=== PATIENT | male | born 1965 | race Caucasian/White ===

== ENCOUNTER → 2018-07-19 15:36 | Outpatient (CLI) | payer OTHER, SELFPAY ==
[2018-05-30 16:00] VITALS: BMI 46.5
[2018-07-19 17:36] LABS: Erythrocyte Sedimentation Rate 37 mm/hr (0-20)
[2018-07-19 17:37] LABS: BUN 12 mg/dL (7-18); Creatinine, Serum 1.17 mg/dL (0.70-1.30); Glucose 129 mg/dL (74-106)
[2018-07-19 17:38] LABS: ALB/GLOB Ratio 0.9 RATIO (0.9-2.4); AST(SGOT) 21 U/L (15-37); Alanine Aminotransfer ALT/SGPT 28 U/L (16-61); Albumin, Serum 3.4 g/dL (3.2-5.0); Alkaline Phosphatase 80 U/L (45-117); Anion Gap 10 (5-15); BUN/Creat Ratio 10.3 RATIO (10-20); Calcium,Total 8.5 mg/dL (8.5-10.1); Chloride 108 mmol/L (98-107); EST Glomerular Filtration Rate 70 mL/min (>60); Est Glom Filt Rate - Afr Amer 84 mL/min (>60); Globulin 3.6 g/dL (2.2-4.2); Potassium 4.1 mmol/L (3.5-5.1); Sodium Level 143 mmol/L (136-145); Thyroid Stim Hormone (TSH) 2.43 uIU/mL (0.358-3.74)
[2018-07-19 17:39] LABS: Vitamin B12 1221 pg/mL (211-911)
== END ==
PROVIDERS: Family Provider Nurse Practitioner; PCP Nurse Practitioner; Referring Provider Psychiatry & Neurology Neurology; Visit Provider Psychiatry & Neurology Neurology
DX: R51 Headache (principal)
CPT/HCPCS: 36415; 80053; 82607; 84443; 85652; 86140

== ENCOUNTER → 2018-08-02 17:49 | Outpatient (CLI) | payer OTHER, SELFPAY ==
[2018-05-30 16:00] VITALS: BMI 46.5
--- NOTE | 2018-08-02 18:15 | MRI_ITS ---
HISTORY: H/A's and dizziness TECHNIQUE: Multiplanar and multisequence MR images of the brain were obtained with and without IV gadolinium. IV Contrast dosage and agent: 13 cc Gadavist COMPARISON: None FINDINGS: # of images incl. paperwork: 351 PARANASAL SINUSES AND MASTOID AIR CELLS: Small polyp left maxillary sinus. Otherwise clear. CALVARIUM: Unremarkable. INTRACRANIAL HEMORRHAGE: No evidence of intracranial hemorrhage. BRAIN PARENCHYMA: No acute infarct. Cerebrum, cerebellum and brainstem are unremarkable. Normal sella turcica, pituitary gland, infundibular stalk, optic chiasm and hypothalamus. The internal auditory canals are patent. No mass effect or midline shift. Scattered mild chronic FLAIR/T2 hyperintensities within the cerebral white matter compatible with mild microvascular changes. CONTRAST: No abnormal enhancement. CSF SPACES: Appropriate for age. There is no hydrocephalus. Patent basal cisterns. VASCULAR SYSTEM: Normal flow voids in the major intracranial circulation. ORBITS: Both globes, extraocular muscles, optic nerves and retrobulbar fat appear unremarkable. MRI/Brain W/WO Contrast IMPRESSION: Mild chronic microvascular changes in the white matter. No acute intracranial process. at 0502 Reported and signed by: Pradip Gross MD Electronically Signed: Pradip Gross, at 5:01 EST Tel , Service support ,
== END ==
PROVIDERS: Family Provider Nurse Practitioner; PCP Nurse Practitioner; Referring Provider Psychiatry & Neurology Neurology; Visit Provider Psychiatry & Neurology Neurology
DX: R51 Headache (principal)
CPT/HCPCS: 70553; A9585

== ENCOUNTER → 2018-08-09 22:43 | Outpatient (CLI) | payer OTHER, SELFPAY ==
[2018-08-09 17:30] VITALS: BMI 46.5
[2018-08-09 23:09] LABS: Albumin, Serum 3.5 g/dL (3.2-5.0); BUN 15 mg/dL (7-18); BUN/Creat Ratio 9.9 RATIO (10-20); Creatinine, Serum 1.51 mg/dL (0.70-1.30); EST Glomerular Filtration Rate 52 mL/min (>60); Est Glom Filt Rate - Afr Amer 63 mL/min (>60); Glucose 126 mg/dL (74-106)
[2018-08-09 23:10] LABS: AST(SGOT) 20 U/L (15-37); Alanine Aminotransfer ALT/SGPT 27 U/L (16-61); Alkaline Phosphatase 95 U/L (45-117); Anion Gap 8 (5-15); Calcium,Total 8.7 mg/dL (8.5-10.1); Chloride 108 mmol/L (98-107); Cholesterol 163 mg/dL (200); Globulin 3.5 g/dL (2.2-4.2); High Density Lipoprotein 40 mg/dL; Potassium 4.1 mmol/L (3.5-5.1); Sodium Level 144 mmol/L (136-145); Triglycerides 293 mg/dL; Very Low Density Lipoprotein 59 mg/dL (5-40)
[2018-08-09 23:19] LABS: Absolute Lymphocyte Count 3.12 X10^3/ul (0.83-4.51); Absolute Neutrophil Count 7.8 X10^3/uL (2.0-7.7); Basophil# 0.04 X10^3/uL; Basophil% 0.3 % (0-1); Eosinophil# 0.28 X10^3/uL; Eosinophils% 2.2 % (0-5); Hematocrit 44.9 % (40-54); Hemoglobin 14.5 g/dl (13.0-16.5); Lymphocyte # 3.12 X10^3/ul (4.0); Lymphocyte % 24.7 % (19-41); Mean Corp Hgb Conc 32.3 g/gl (32-36); Mean Corpuscular Hgb 30.5 pg (27.0-32.0); Mean Corpuscular Volume 94.5 fL (80-94); Mean Platelet Vol. 11.8 fl (6.2-12.0); Monocyte# 1.36 X10^3/uL; Monocyte% 10.8 % (0-10); Neutrophil % 61.6 % (47-70); Platelet Count 271 K/mm3 (150-450); RBC Distribution Width CV 13.9 % (11.6-14.6); RBC Distribution Width SD 46.5 fl (35.1-43.9); Red Blood Count 4.75 M/mm3 (4.6-6.2); White Blood Count 12.7 K/mm3 (4.4-11.0)
[2018-08-09 23:20] LABS: POSITIVE COUNT NO; POSITIVE DIFFERENTIAL NO; POSITIVE MORPHOLOGY NO
== END ==
PROVIDERS: Family Provider Nurse Practitioner; PCP Nurse Practitioner; Referring Provider Nurse Practitioner; Visit Provider Nurse Practitioner
DX: I10 Essential (primary) hypertension (principal)
CPT/HCPCS: 80053; 80061; 85025

== ENCOUNTER → 2019-06-27 | Outpatient (CLI) | payer OTHER, SELFPAY ==
[2019-06-27 18:15] VITALS: BMI 49.1
== END | disposition home or self-care (01) ==
PROVIDERS: PCP Nurse Practitioner; Referring Provider Nurse Practitioner; Visit Provider Nurse Practitioner
DX: R19.8 Other specified symptoms and signs involving the digestive system and abdomen (principal)
CPT/HCPCS: 87070; 87075; 87077; 87186; 87205

== ENCOUNTER → 2020-03-16 | Outpatient (CLI) | payer OTHER, SELFPAY ==
[2020-03-16 15:52] VITALS: BMI 44.9
[2020-03-16 21:28] LABS: Absolute Lymphocyte Count 2.16 X10^3/uL (0.83-4.51); Basophil# 0.09 X10^3/uL; Basophil% 0.8 % (0-1); Eosinophil# 0.25 X10^3/uL; Eosinophils% 2.2 % (0-5); Hematocrit 49.3 % (40-54); Hemoglobin 15.7 g/dL (13.0-16.5); Lymphocyte # 2.16 X10^3/ul (4.0); Lymphocyte % 18.9 % (19-41); Mean Corp Hgb Conc 31.8 g/dL (32-36); Mean Corpuscular Hgb 29.8 pg (27.0-32.0); Mean Corpuscular Volume 93.7 fL (80-94); Mean Platelet Vol. 11.7 fl (6.2-12.0); Monocyte# 0.93 X10^3/uL; Monocyte% 8.1 % (0-10); NRBC Flagged by Analyzer 0 % (0-5); Neutrophil # 7.99 X10^3/uL (2.7-7.7); Neutrophil % 69.9 % (47-70); Platelet Count 320 K/mm3 (150-450); RBC Distribution Width SD 48.6 fl (35.1-43.9); Red Blood Count 5.26 M/mm3 (4.6-6.2); White Blood Count 11.4 K/mm3 (4.4-11.0)
[2020-03-16 22:08] LABS: ALB/GLOB Ratio 0.8 RATIO (0.9-2.4); AST(SGOT) 28 U/L (15-37); Alanine Aminotransfer ALT/SGPT 40 U/L (16-61); Albumin, Serum 3.4 g/dL (3.2-5.0); Alkaline Phosphatase 121 U/L (45-117); Anion Gap 7 (5-15); BUN 13 mg/dL (7-18); BUN/Creat Ratio 10.5 RATIO (10-20); Calcium,Total 9.3 mg/dL (8.5-10.1); Chloride 103 mmol/L (98-107); Cholesterol 186 mg/dL (200); Creatinine, Serum 1.24 mg/dL (0.70-1.30); EST Glomerular Filtration Rate 65 mL/min (>60); Est Glom Filt Rate - Afr Amer 78 mL/min (>60); Globulin 4.3 g/dL (2.2-4.2); Glucose 189 mg/dL (74-106); High Density Lipoprotein 43 mg/dL; PSA,Total - Annual Screen 0.25 ng/mL (0.00-4.00); Potassium 3.7 mmol/L (3.5-5.1); Protein, Total 7.7 g/dL (6.4-8.2); Sodium Level 140 mmol/L (136-145); Triglycerides 249 mg/dL; Very Low Density Lipoprotein 50 mg/dL (5-40)
== END | disposition home or self-care (01) ==
LOC: OLS.AHF 21:20 → LABSPEC 03-17 06:26
PROVIDERS: Visit Provider Nurse Practitioner
DX: I10 Essential (primary) hypertension (principal); E11.65 Type 2 diabetes mellitus with hyperglycemia; R35.0 Frequency of micturition
CPT/HCPCS: 80053; 80061; 84153; 85025; G0103

== ENCOUNTER → 2020-08-18 | Outpatient (CLI) | payer BC, SELFPAY ==
[2020-08-18 14:54] VITALS: BMI 44.6
[2020-08-18 22:42] LABS: Absolute Lymphocyte Count 0.67 X10^3/uL (0.83-4.51); Absolute Neutrophil Count 5.6 X10^3/uL (2.0-7.7); Basophil# 0.02 X10^3/uL; Basophil% 0.3 % (0-1); Eosinophil# 0.03 X10^3/uL; Eosinophils% 0.5 % (0-5); Hematocrit 48.1 % (40-54); Hemoglobin 15.3 g/dL (13.0-16.5); Lymphocyte # 0.67 X10^3/ul (4.0); Lymphocyte % 10.3 % (19-41); Mean Corp Hgb Conc 31.8 g/dL (32-36); Mean Corpuscular Hgb 30.2 pg (27.0-32.0); Mean Corpuscular Volume 94.9 fL (80-94); Mean Platelet Vol. 12.7 fl (6.2-12.0); Monocyte# 0.16 X10^3/uL; Monocyte% 2.5 % (0-10); NRBC Flagged by Analyzer 0 % (0-5); Neutrophil % 85.6 % (47-70); Platelet Count 303 K/mm3 (150-450); RBC Distribution Width CV 13.4 % (11.6-14.6); RBC Distribution Width SD 46.7 fl (35.1-43.9); Red Blood Count 5.07 M/mm3 (4.6-6.2); White Blood Count 6.5 K/mm3 (4.4-11.0)
[2020-08-18 22:54] LABS: ALB/GLOB Ratio 0.8 RATIO (0.9-2.4); AST(SGOT) 30 U/L (15-37); Alanine Aminotransfer ALT/SGPT 55 U/L (16-61); Albumin, Serum 2.7 g/dL (3.2-5.0); Alkaline Phosphatase 112 U/L (45-117); Anion Gap 6 (5-15); BUN 22 mg/dL (7-18); BUN/Creat Ratio 17.1 RATIO (10-20); CRP, High Sensitivity Cardiac 1.74 mg/L; Calcium,Total 8.7 mg/dL (8.5-10.1); Chloride 100 mmol/L (98-107); Creatinine, Serum 1.29 mg/dL (0.70-1.30); EST Glomerular Filtration Rate 62 mL/min (>60); Est Glom Filt Rate - Afr Amer 75 mL/min (>60); Globulin 3.5 g/dL (2.2-4.2); Glucose 534 mg/dL (74-106); Potassium 4.8 mmol/L (3.5-5.1); Protein, Total 6.2 g/dL (6.4-8.2); Sodium Level 136 mmol/L (136-145)
== END | disposition home or self-care (01) ==
PROVIDERS: Visit Provider Nurse Practitioner
DX: U07.1 COVID-19 (principal); J12.82 Pneumonia due to coronavirus disease 2019; R06.02 Shortness of breath; T50.B95A Adverse effect of other viral vaccines, initial encounter
CPT/HCPCS: 80053; 85025; 86141

== ENCOUNTER → 2021-11-07 | Outpatient (CLI) | payer OTHER, SELFPAY ==
[2021-11-07 22:54] LABS: Absolute Lymphocyte Count 2.07 X10^3/uL (0.83-4.51); Basophil# 0.06 X10^3/uL; Basophil% 0.7 % (0-1); Eosinophil# 0.16 X10^3/uL; Eosinophils% 1.8 % (0-5); Hematocrit 48.9 % (40-54); Hemoglobin 16.1 g/dL (13.0-16.5); Lymphocyte # 2.07 X10^3/ul (0.83-4.51); Lymphocyte % 22.8 % (19-41); Mean Corp Hgb Conc 32.9 g/dL (32-36); Mean Corpuscular Hgb 31.4 pg (27.0-32.0); Mean Corpuscular Volume 95.3 fL (80-94); Mean Platelet Vol. 12.3 fl (6.2-12.0); Monocyte# 0.78 X10^3/uL; Monocyte% 8.6 % (0-10); NRBC Flagged by Analyzer 0 % (0-5); Neutrophil # 5.97 X10^3/uL (2.7-7.7); Neutrophil % 65.8 % (47-70); Platelet Count 256 K/mm3 (150-450); RBC Distribution Width SD 45.7 fl (35.1-43.9); Red Blood Count 5.13 M/mm3 (4.6-6.2); White Blood Count 9.1 K/mm3 (4.4-11.0)
[2021-11-07 23:11] LABS: PSA,Total- Diagnostic 0.46 ng/mL (0.0-4.0)
[2021-11-08 09:54] LABS: Vitamin B12 1580 pg/mL (211-911)
== END | disposition home or self-care (01) ==
PROVIDERS: PCP Nurse Practitioner; Referring Provider Nurse Practitioner; Visit Provider Nurse Practitioner
DX: R53.83 Other fatigue (principal); R79.89 Other specified abnormal findings of blood chemistry
CPT/HCPCS: 82607; 84153; 84403; 85025

== ENCOUNTER → 2021-12-24 | Outpatient (CLI) | payer OTHER, SELFPAY ==
[2021-12-24 00:25] LABS: Absolute Lymphocyte Count 2.85 X10^3/uL (0.83-4.51); Absolute Neutrophil Count 6.6 X10^3/uL (2.0-7.7); Basophil# 0.08 X10^3/uL; Basophil% 0.7 % (0-1); Eosinophil# 0.26 X10^3/uL; Eosinophils% 2.4 % (0-5); Hemoglobin 15.6 g/dL (13.0-16.5); Lymphocyte # 2.85 X10^3/ul (0.83-4.51); Lymphocyte % 26.4 % (19-41); Mean Corp Hgb Conc 33.9 g/dL (32-36); Mean Corpuscular Volume 94.5 fL (80-94); Mean Platelet Vol. 12.3 fl (6.2-12.0); Monocyte# 1.02 X10^3/uL; Monocyte% 9.5 % (0-10); NRBC Flagged by Analyzer 0 % (0-5); Neutrophil # 6.56 X10^3/uL (2.7-7.7); Neutrophil % 60.8 % (47-70); Platelet Count 261 K/mm3 (150-450); RBC Distribution Width SD 45.1 fl (35.1-43.9); Red Blood Count 4.87 M/mm3 (4.6-6.2); White Blood Count 10.8 K/mm3 (4.4-11.0)
[2021-12-24 00:52] LABS: AST(SGOT) 20 U/L (15-37); Alanine Aminotransfer ALT/SGPT 28 U/L (16-61); Albumin, Serum 3.5 g/dL (3.2-5.0); Alkaline Phosphatase 124 U/L (45-117); Anion Gap 5 (5-15); BUN 15 mg/dL (7-18); BUN/Creat Ratio 10.6 RATIO (10-20); Calcium,Total 9.2 mg/dL (8.5-10.1); Chloride 103 mmol/L (98-107); Cholesterol 211 mg/dL (200); Creatinine, Serum 1.41 mg/dL (0.70-1.30); EST Glomerular Filtration Rate 55 mL/min (>60); Est Glom Filt Rate - Afr Amer 67 mL/min (>60); Globulin 3.5 g/dL (2.2-4.2); Glucose 240 mg/dL (74-106); High Density Lipoprotein 31 mg/dL; PSA,Total - Annual Screen 0.27 ng/mL (0.00-4.00); Potassium 3.9 mmol/L (3.5-5.1); Sodium Level 137 mmol/L (136-145); Triglycerides 575 mg/dL
[2021-12-24 01:44] LABS: Hemoglobin A1c 9.4 % (3.8-5.6)
== END | disposition home or self-care (01) ==
PROVIDERS: PCP Nurse Practitioner; Visit Provider Nurse Practitioner
DX: F32.9 Major depressive disorder, single episode, unspecified (principal); E11.65 Type 2 diabetes mellitus with hyperglycemia; R35.0 Frequency of micturition; E78.5 Hyperlipidemia, unspecified
CPT/HCPCS: 80053; 80061; 83036; 84153; 85025; G0103

== ENCOUNTER → 2022-09-06 | Outpatient (CLI) | payer OTHER, SELFPAY ==
[2022-09-06 22:30] LABS: Absolute Lymphocyte Count 2.24 X10^3/uL (0.83-4.51); Absolute Neutrophil Count 6.5 X10^3/uL (2.0-7.7); Basophil# 0.06 X10^3/uL; Basophil% 0.6 % (0-1); Eosinophil# 0.17 X10^3/uL; Eosinophils% 1.7 % (0-5); Hematocrit 42.5 % (40-54); Hemoglobin 14.3 g/dL (13.0-16.5); Lymphocyte # 2.24 X10^3/ul (0.83-4.51); Lymphocyte % 22.5 % (19-41); Mean Corp Hgb Conc 33.6 g/dL (32-36); Mean Corpuscular Hgb 31.7 pg (27.0-32.0); Mean Corpuscular Volume 94.2 fL (80-94); Mean Platelet Vol. 12.6 fl (6.2-12.0); Monocyte# 0.97 X10^3/uL; Monocyte% 9.7 % (0-10); NRBC Flagged by Analyzer 0 % (0-5); Neutrophil # 6.49 X10^3/uL (2.7-7.7); Neutrophil % 65.3 % (47-70); Platelet Count 280 K/mm3 (150-450); RBC Distribution Width CV 13.2 % (11.6-14.6); RBC Distribution Width SD 45.9 fl (35.1-43.9); Red Blood Count 4.51 M/mm3 (4.6-6.2)
[2022-09-06 22:47] LABS: ALB/GLOB Ratio 0.9 RATIO (0.9-2.4); AST(SGOT) 22 U/L (15-37); Alanine Aminotransfer ALT/SGPT 27 U/L (16-61); Albumin, Serum 3.4 g/dL (3.2-5.0); Alkaline Phosphatase 97 U/L (45-117); Anion Gap 6 (5-15); BUN 17 mg/dL (7-18); BUN/Creat Ratio 12.1 RATIO (10-20); Chloride 102 mmol/L (98-107); EST Glomerular Filtration Rate 56 mL/min (>60); Est Glom Filt Rate - Afr Amer 67 mL/min (>60); Globulin 3.7 g/dL (2.2-4.2); Glucose 182 mg/dL (74-106); Potassium 3.8 mmol/L (3.5-5.1); Protein, Total 7.1 g/dL (6.4-8.2); Sodium Level 136 mmol/L (136-145)
[2022-09-06 23:02] LABS: D-Dimer Quantitative (DVT/PE) < 0.27 FEU/ug/m (0.27-0.49)
== END | disposition home or self-care (01) ==
PROVIDERS: PCP Nurse Practitioner; Visit Provider Nurse Practitioner
DX: R06.00 Dyspnea, unspecified (principal); R53.83 Other fatigue; U09.9 Post COVID-19 condition, unspecified
CPT/HCPCS: 80053; 85025; 85379

== ENCOUNTER 2023-07-27 21:58 | Outpatient (CLI) | payer MEDICARE, SELFPAY ==
[2023-07-27 22:23] LABS: Absolute Lymphocyte Count 2.75 X10^3/uL (0.83-4.51); Absolute Neutrophil Count 5.3 X10^3/uL (2.0-7.7); Basophil# 0.09 X10^3/uL; Eosinophil# 0.24 X10^3/uL; Eosinophils% 2.6 % (0-5); Hematocrit 43.8 % (40-54); Hemoglobin 14.1 g/dL (13.0-16.5); Lymphocyte # 2.75 X10^3/ul (0.83-4.51); Lymphocyte % 29.5 % (19-41); Mean Corp Hgb Conc 32.2 g/dL (32-36); Mean Corpuscular Hgb 30.7 pg (27.0-32.0); Mean Corpuscular Volume 95.4 fL (80-94); Mean Platelet Vol. 12.5 fl (6.2-12.0); Monocyte# 0.97 X10^3/uL; Monocyte% 10.4 % (0-10); NRBC Flagged by Analyzer 0 % (0-5); Neutrophil # 5.26 X10^3/uL (2.7-7.7); Neutrophil % 56.3 % (47-70); Platelet Count 266 K/mm3 (150-450); RBC Distribution Width CV 13.2 % (11.6-14.6); Red Blood Count 4.59 M/mm3 (4.6-6.2); White Blood Count 9.3 K/mm3 (4.4-11.0)
[2023-07-27 22:41] LABS: ALB/GLOB Ratio 0.9 RATIO (0.9-2.4); AST(SGOT) 18 U/L (15-37); Alanine Aminotransfer ALT/SGPT 25 U/L (16-61); Albumin, Serum 3.3 g/dL (3.2-5.0); Alkaline Phosphatase 93 U/L (45-117); Anion Gap 4 (5-15); BUN 17 mg/dL (7-18); BUN/Creat Ratio 11.9 RATIO (10-20); Calcium,Total 8.8 mg/dL (8.5-10.1); Chloride 105 mmol/L (98-107); Cholesterol 192 mg/dL (200); Creatinine, Serum 1.43 mg/dL (0.70-1.30); EST Glomerular Filtration Rate 54 mL/min (>60); Est Glom Filt Rate - Afr Amer 66 mL/min (>60); Globulin 3.6 g/dL (2.2-4.2); Glucose 189 mg/dL (74-106); High Density Lipoprotein 38 mg/dL; PSA,Total - Annual Screen 0.35 ng/mL (0.00-4.00); Potassium 3.9 mmol/L (3.5-5.1); Protein, Total 6.9 g/dL (6.4-8.2); Sodium Level 140 mmol/L (136-145); Triglycerides 275 mg/dL; Very Low Density Lipoprotein 55 mg/dL (5-40)
[2023-07-27 22:53] LABS: Hemoglobin A1c 7.8 % (3.8-5.6)
== END 2023-07-27 23:59 | disposition home or self-care (01) ==
PROVIDERS: PCP Nurse Practitioner; Visit Provider Nurse Practitioner
DX: Z12.5 Encounter for screening for malignant neoplasm of prostate (principal); E11.65 Type 2 diabetes mellitus with hyperglycemia; H66.92 Otitis media, unspecified, left ear; E78.5 Hyperlipidemia, unspecified; F32.9 Major depressive disorder, single episode, unspecified; G47.00 Insomnia, unspecified; G43.909 Migraine, unspecified, not intractable, without status migrainosus; I10 Essential (primary) hypertension; R35.0 Frequency of micturition
CPT/HCPCS: 80053; 80061; 83036; 84153; 85025; G0103

== ENCOUNTER → 2024-03-06 | Outpatient (CLI) | payer MEDICARE, SELFPAY ==
[2024-03-06 22:10] LABS: Absolute Lymphocyte Count 2.19 X10^3/uL (0.83-4.51); Absolute Neutrophil Count 6.1 X10^3/uL (2.0-7.7); Basophil# 0.06 X10^3/uL; Basophil% 0.6 % (0-1); Eosinophil# 0.27 X10^3/uL; Eosinophils% 2.8 % (0-5); Hematocrit 40.9 % (40-54); Hemoglobin 13.2 g/dL (13.0-16.5); Lymphocyte # 2.19 X10^3/ul (0.83-4.51); Lymphocyte % 22.8 % (19-41); Mean Corp Hgb Conc 32.3 g/dL (32-36); Mean Corpuscular Hgb 30.2 pg (27.0-32.0); Mean Corpuscular Volume 93.6 fL (80-94); Mean Platelet Vol. 12.2 fl (6.2-12.0); Monocyte# 0.97 X10^3/uL; Monocyte% 10.1 % (0-10); NRBC Flagged by Analyzer 0 % (0-5); Neutrophil # 6.09 X10^3/uL (2.7-7.7); Neutrophil % 63.4 % (47-70); Platelet Count 233 K/mm3 (150-450); RBC Distribution Width CV 13.5 % (11.6-14.6); RBC Distribution Width SD 46.1 fl (35.1-43.9); Red Blood Count 4.37 M/mm3 (4.6-6.2); White Blood Count 9.6 K/mm3 (4.4-11.0)
[2024-03-06 22:33] LABS: ALB/GLOB Ratio 0.9 RATIO (0.9-2.4); AST(SGOT) 17 U/L (15-37); Alanine Aminotransfer ALT/SGPT 16 U/L (16-61); Albumin, Serum 3.3 g/dL (3.2-5.0); Alkaline Phosphatase 101 U/L (45-117); Anion Gap 5 (5-15); BUN 14 mg/dL (7-18); BUN/Creat Ratio 12.8 RATIO (10-20); Calcium,Total 9.1 mg/dL (8.5-10.1); Chloride 105 mmol/L (98-107); Creatinine, Serum 1.09 mg/dL (0.70-1.30); EST Glomerular Filtration Rate 74 mL/min (>60); Est Glom Filt Rate - Afr Amer 89 mL/min (>60); Globulin 3.7 g/dL (2.2-4.2); Glucose 170 mg/dL (74-106); Potassium 3.9 mmol/L (3.5-5.1); Sodium Level 138 mmol/L (136-145)
[2024-03-06 22:37] LABS: Hemoglobin A1c 7.6 % (3.8-5.6)
== END | disposition home or self-care (01) ==
LOC: LABSPEC 21:53
PROVIDERS: PCP Nurse Practitioner; Visit Provider Nurse Practitioner
DX: R42 Dizziness and giddiness (principal); E11.65 Type 2 diabetes mellitus with hyperglycemia; G43.819 Other migraine, intractable, without status migrainosus; I10 Essential (primary) hypertension
CPT/HCPCS: 80053; 83036; 84443; 85025

== ENCOUNTER → 2024-08-22 | Outpatient (CLI) | payer BC, SELFPAY ==
[2024-08-22 22:07] LABS: Absolute Neutrophil Count 8.7 X10^3/uL (2.0-7.7); Basophil# 0.06 X10^3/uL; Basophil% 0.5 % (0-1); Eosinophil# 0.13 X10^3/uL; Eosinophils% 1.1 % (0-5); Hematocrit 42.4 % (40-54); Hemoglobin 13.9 g/dL (13.0-16.5); Lymphocyte % 15.3 % (19-41); Mean Corp Hgb Conc 32.8 g/dL (32-36); Mean Corpuscular Volume 94.4 fL (80-94); Mean Platelet Vol. 12.3 fl (6.2-12.0); Monocyte# 1.03 X10^3/uL; Monocyte% 8.7 % (0-10); NRBC Flagged by Analyzer 0 % (0-5); Neutrophil # 8.73 X10^3/uL (2.7-7.7); Neutrophil % 74.1 % (47-70); Platelet Count 260 K/mm3 (150-450); RBC Distribution Width CV 14.1 % (11.6-14.6); RBC Distribution Width SD 48.7 fl (35.1-43.9); Red Blood Count 4.49 M/mm3 (4.6-6.2); White Blood Count 11.8 K/mm3 (4.4-11.0)
[2024-08-22 22:51] LABS: Hemoglobin A1c 8.4 % (<=5.6)
[2024-08-22 22:58] LABS: ALB/GLOB Ratio 1.2 RATIO (0.9-2.4); AST(SGOT) 24 U/L (<=37); Alanine Aminotransfer ALT/SGPT 18 U/L (<=46); Albumin, Serum 4.1 g/dL (3.5-5.0); Alkaline Phosphatase 114 U/L (40-129); Anion Gap 13 (5-15); BUN 15 mg/dL (4-19); BUN/Creat Ratio 10.2 RATIO (10-20); Calcium,Total 9.4 mg/dL (7.6-11.0); Carbon Dioxide 25.1 mmol/L (21.0-32.0); Chloride 101 mmol/L (98-108); Creatinine, Serum 1.49 mg/dL (0.70-1.20); EST Glomerular Filtration Rate 54 (>60); Globulin 3.3 g/dL (2.2-4.2); Glucose 213 mg/dL (70-99); Potassium 4.4 mmol/L (3.3-5.1); Protein, Total 7.4 g/dL (5.9-8.4); Sodium Level 138 mmol/L (133-145); Total Bilirubin 0.28 mg/dL (0.00-1.30)
== END | disposition home or self-care (01) ==
PROVIDERS: PCP Nurse Practitioner; Referring Provider Nurse Practitioner; Visit Provider Nurse Practitioner
DX: E11.65 Type 2 diabetes mellitus with hyperglycemia (principal); E78.5 Hyperlipidemia, unspecified; R63.4 Abnormal weight loss
CPT/HCPCS: 80053; 83036; 84443; 85025

== ENCOUNTER → 2024-10-24 | Outpatient (CLI) | payer BC, SELFPAY ==
[2024-10-24 01:41] LABS: Absolute Lymphocyte Count 2.12 X10^3/uL (0.83-4.51); Absolute Neutrophil Count 5.9 X10^3/uL (2.0-7.7); Basophil# 0.07 X10^3/uL; Basophil% 0.7 % (0-1); Eosinophil# 0.22 X10^3/uL; Eosinophils% 2.3 % (0-5); Hemoglobin 14.2 g/dL (13.0-16.5); Lymphocyte # 2.12 X10^3/ul (0.83-4.51); Lymphocyte % 22.6 % (19-41); Mean Corp Hgb Conc 32.3 g/dL (32-36); Mean Corpuscular Hgb 30.7 pg (27.0-32.0); Mean Corpuscular Volume 95.2 fL (80-94); Mean Platelet Vol. 12.7 fl (6.2-12.0); Monocyte# 1.03 X10^3/uL; NRBC Flagged by Analyzer 0 % (0-5); Neutrophil # 5.92 X10^3/uL (2.7-7.7); Neutrophil % 63.1 % (47-70); Platelet Count 278 K/mm3 (150-450); RBC Distribution Width CV 14.2 % (11.6-14.6); RBC Distribution Width SD 49.6 fl (35.1-43.9); Red Blood Count 4.62 M/mm3 (4.6-6.2); White Blood Count 9.4 K/mm3 (4.4-11.0)
== END | disposition home or self-care (01) ==
PROVIDERS: PCP Nurse Practitioner; Referring Provider Nurse Practitioner; Visit Provider Nurse Practitioner
DX: E03.9 Hypothyroidism, unspecified (principal); D72.829 Elevated white blood cell count, unspecified
CPT/HCPCS: 84443; 85025

== ENCOUNTER 2025-03-11 07:42 | Day surgery (SDC) | payer BC, SELFPAY ==
--- NOTE | 2025-03-09 13:15 | PAT.ANE_ITS ---
Pre-Assessment Diagnosis/Proposed Procedure Planned Operative Procedure(s): (R) Cysto,Ureteroscopy,Retro,Laser,Stent Anesthesia History Anesthesia History - evp general counsel: Anesthesia History - evp general counsel Hx Hospitalization Yes: 02/2025 CHF 03/06/25 14:04 Any Problems With Anesthesia No 03/06/25 14:04 Cholinesterase deficiency No 03/06/25 14:04 You/Your Family Experience No 03/06/25 14:04 fever (hyperthermia) with Relationship Recent Exposure to Contagious Disease Does patient have nerve No 03/06/25 14:04 stimulator Patient instructed to have device shut off --Does patient have Pacemaker or ICD? When Was Last Pacemaker Check QUESTION #4 FULL TEXT: You/Your Family Experience fever (hyperthermia) with Anesthesia Last Oral Intake Last Oral intake: Last Oral Intake NPO since Meds taken in AM with sips of water? Meds patient instructed to take am of surgery PONV PONV - evp general counsel: PONV - evp general counsel Female No 03/06/25 14:04 HX of Motion Sickness No 03/06/25 14:04 HX of N/V After Surgery No 03/06/25 14:04 Non-Smoker Yes 03/06/25 14:04 Duration of Surgery greater Yes 03/06/25 14:04 than 60 minutes Number of Risk Factors 2 03/06/25 14:04 PONV Score Moderate Risk 03/06/25 14:04 Height & Weight Height & Weight: Anesthesia: Height & Weight Height 6 ft 11/27/24 16:03 Respiratory Assessment Respiratory Assessment - evp general counsel: Respiratory Tract Infection Hx - evp general counsel Hx Respiratory Tract Infection No 03/06/25 14:04 STOP Sleep Apnea STOP Sleep Apnea - evp general counsel: STOP Sleep Apnea - evp general counsel Hx Hypertension Yes: PER PT, CONTROLLED ON 03/06/25 14:04 MEDS Hx Sleep Apnea Yes 03/06/25 14:04 CPAP No 03/06/25 14:04 BIPAP No 03/06/25 14:04 Do you snore loudly (louder than talking or can be heard Do you often feel tired/ fatigued/ sleepy during daytime? Has anyone observed you stop breathing during sleep? STOP Results Positive 03/06/25 14:04 QUESTION #5 FULL TEXT : Do you snore loudly (louder than talking or can be heard through closed doors)? Tobacco Use History Tobacco Use History - evp general counsel: Tobacco Use History - evp general counsel Tobacco Use Smoking Status Never smoker 03/06/25 14:04 Hx Tobacco Use No 03/06/25 14:04 Years Smoking Packs Smoked per Day Smoking Cessation Date was within the last 15 years Hx Smoking Cessation Date Hx Smoking Cessation Counseling Hematologic Medial History Hematologic Hx - evp general counsel: Hematologic Medical Hx - rn clinical documentation Hx of Blood Transfusion No 03/06/25 14:04 Hx of Transfusion in last 3 No 03/06/25 14:04 Months Date of Last Transfusion (if within last 3 months) Ever experience any problems No 03/06/25 14:04 with transfusion(s)? Specify any problems Hx of Preganancy in last 3 N/A 03/06/25 14:04 Months Nurse Filling Out Transfusion MGRIFFITH 03/06/25 14:04 & Questions: Date: 03/06/25 03/06/25 14:04 Time: 14:07 03/06/25 14:04 Patient unable to answer at this time (ie. confused, unrespo /Reproduction History /Reproductive History - evp general counsel: /Reproductive Hx- evp general counsel Hx Now No 03/06/25 14:04 Gestational Age (in weeks): EDC: Hx Hx Para Hx Section SAB PFSH Medical History (Updated 03/06/25 @ 14:30 by Paty Sanchez) Wears glasses Vertigo History of MRSA infection Cancer Neuropathy Rheumatoid arthritis Arthritis High cholesterol Excessive bleeding Dietary restriction History of diverticulitis Sleep apnea Non-smoker History of echocardiogram History of stress test Hypertension Cardiology follow-up encounter History of atrial fibrillation History of CHF (congestive heart failure) Hypothyroidism Depression Diaphragm dysfunction Dupuytren's fibromatosis Basal cell carcinoma (BCC) in situ of skin Insomnia Bursitis of right shoulder Pneumonia Diverticulitis Diabetes type 2, controlled Hypoglycemia Gout Hyperlipidemia LDL goal <130 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 Home Medications ?Medication ?Instructions ?Recorded ?Last Taken ?Type aspirin 81 mg tablet,delayed 81 mg PO DAILY 03/02/18 U nknown History release (Adult Low Dose Aspirin) magnesium oxide 500 mg capsule 500 mg PO DAILY 8 Unknown History prodigy #1 ea 03/02/18 Unknown Histo ry fluticasone propionate 0.05 % 1 applic topical QD-BID PRN 11/05/20 Unknown Rx topical cream (Cutivate) allergic reaction #60 grams albuterol sulfate 90 mcg/actuation 2 puff inhalation Q 4H PRN sob #6.7 08/22/24 Unknown Rx aerosol inhaler (Ventolin HFA) grams amlodipine 5 mg tablet 5 mg PO DAILY #90 tabs 08/22 Unknown Rx bupropion HCl 100 mg tablet,12 hr 100 mg PO BID #180 t abs 08/22/24 Unknown Rx sustained-release celecoxib 200 mg capsule 200 mg PO BID #180 caps 08/0302/19/25 Rx gabapentin 400 mg capsule 400 mg PO TID 90 days #270 c aps 08/22/24 Unknown Rx glimepiride 4 mg tablet 4 mg PO QAM #90 tabs 5 Unknown Rx metformin 850 mg tablet 850 mg PO BID #180 tabs 08/03 06/28 Unknown Rx metoprolol tartrate 37.5 mg tablet 37.5 mg PO BID #180 tabs 08/22/24 Unknown Rx mirtazapine 15 mg tablet 7.5 mg (1/2 x 15 mg) PO QHS PRN 08/22/24 Unknown Rx sleep 90 days #90 tabs pioglitazone 45 mg tablet 45 mg PO DAILY #90 tabs 08/03 06/28 Unknown Rx sumatriptan succinate 50 mg tablet See Rx Instructions PO .COMPLEX 90 08/22/24 Unknown Rx days #20 tabs tramadol 50 mg tablet 50 mg PO TID neuropathic leigha n #90 08/22/24 Unknown Rx tabs levothyroxine 75 mcg tablet 75 mcg PO QDAY #90 tabs Unknown Rx (Euthyrox) atorvastatin 40 mg tablet 40 mg PO QHS #90 tabs Unknown Rx rimegepant 75 mg disintegrating 75 mg PO ONCE PRN migr eduarda headache 11/27/24 Unknown History tablet (Nurtec ODT) rimegepant 75 mg disintegrating 75 mg PO ONCE PRN migr eduarda 11/28/24 Unknown Rx tablet (Nurtec ODT) headache #7 tabs ammonium lactate 12 % topical cream 1 applic topical P RN CRACKED HANDS 03/06/25 Unknown History apixaban 5 mg tablet (Eliquis) 5 mg PO BID 03/06/25 Un known History duloxetine 60 mg capsule,delayed 60 mg PO QHS 03/06/25 Unknown History release furosemide 40 mg tablet 40 mg PO DAILY 03/06/25 Unkn own History ketorolac 10 mg tablet 10 mg PO 4X/DAY PRN PRN mode rate 03/06/25 Unknown History pain meclizine 12.5 mg tablet 12.5 mg PO TID PRN vertigo 1 Unknown History tamsulosin 0.4 mg capsule 0.4 mg PO DAILY 03/06/25 Unk nown History Allergy/AdvReac Type Severity Reaction Status Date / Time No Known Allergies Allergy Verified 03/06/25 13:49 Family History Other Esophageal cancer FH: ovarian cancer Surgical History (Updated 03/06/25 @ 14:21 by Paty Sanchez) History of surgery History of foot surgery History of colonoscopy Lump of skin of back History of colectomy History of appendectomy History of cholecystectomy Social History Smoking Status: Never smoker Audit: Pertinent Findings Pertinent Findings EKG Perinent findings: 02/19/2025. Atrial fibrillation with rapid ventricular response. Right bundle branch block. Echo (EF%) pertinent findings: 02/19/2025. Normal LVEF 55 to 60%. RVSP is 40 to 50 mmHg. Consult pertinent findings: February 27, 2025. Narinder DOMÍNGUEZ?cardiology. 1. Heart failure with preserved ejection fraction-mild lower extremity edema, improved compared to preadmission. Denies shortness of breath. Continue furosemide and metoprolol. Patient is to wear compression stockings follow low- sodium diet. 2. Atrial fibrillation-currently in sinus rhythm. Continue metoprolol. Anticoagulation with Eliquis. 3. Hypertension?well-controlled. Continue meds. Recommendation Anesthesia Recommendation Anesthesia recommendation: OPTIMIZED for anesthesia
[2025-03-11] VITALS (10 sets, daily range): BP systolic 105–135; BP diastolic 49–78; PULSE 64–76; RESP 16–18; TEMP 36.1–36.6; O2SAT 92–96; BMI 49.3
[2025-03-11] MEDS: Lactated Ringers 1,000 ML 15 ML IV (08:16)
--- NOTE | 2025-03-11 08:55 | PCM.PRE.AN2 ---
ASA Classification* ASA Classification ASA Classification: 2 Assessment & Plan Anesthesia* Anesthesia Assessment Anesthesia Assessment: Discussed sedation and/or anesthesia options, risks, benefits, and alternatives with patient/parents/legal guardian/POA. Questions invited. The patient/parents/legal guardian/POA seems to understand and agrees to proceed with anesthesia plan. Reviewed the physical assessment, medical history, allergy history and patient home medications list prior to surgery/procedure/anesthetic and documented any changes. Performed airway and anesthesia risk assessments. Anesthesia Type Anesthesia Type: General History Source History Obtained from:: Patient and Chart Anesthesia Focused Assessment* Temperature: 97.8 F Pulse Rate: 69 Blood Pressure: 135/72 Respiratory Rate: 18 Pulse Ox: 94 Oxygen Delivery Method: Room Air Airway Assessment Mouth opens: >3 cm Mallampati Score: II Teeth Condition: Intact Neck Range of motion (ROM): Limited ROM Labs Anesthesia Preop lab: CBC WBC, (4.4-11.0) 9.4 K/mm3 10/23/24, Unknown RBC, (4.6-6.2) 4.62 M/mm3 10/23/24, Unknown Hgb, (13.0-16.5) 14.2 g/dL 10/23/24, Unknown Hct, (40-54) 44.0 % 10/23/24, Unknown Plt Count, (150-450) 278 K/mm3 10/23/24, Unknown CHEMISTRY Potassium, (3.3-5.1) 4.4 mmol/L 08/22/24, Unknown Sodium, (133-145) 138 mmol/L 08/22/24, Unknown BUN, (4-19) 15 mg/dL 08/22/24, Unknown Creatinine, (0.70-1.20) 1.49 mg/dL H 08/22/24, Unknown Glucose, (70-99) 213 mg/dL H 08/22/24, Unknown POC Glucose, (74-106) 154 mg/dL H Today, 08:00 TSH, (0.300-4.200) 3.290 uIU/mL 10/23/24, Unknown COAG INR 0.8 10/04/20, 21:08 Pre-Assessment Diagnosis/Proposed Procedure Planned Operative Procedure(s): (R) Cysto,Ureteroscopy,Retro,Laser,Stent Anesthesia History 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 When Was Last Pacemaker Check QUESTION #4 FULL TEXT: You/Your Family Experience fever (hyperthermia) with Anesthesia Last Oral Intake Last Oral intake: Last Oral Intake NPO since 22:30 03/11/25 08:05 Meds taken in AM with sips of No 03/11/25 08:05 water? Meds patient instructed to take am of surgery PONV PONV - child day care center worker: PONV - child day care center worker Female No 03/06/25 14:04 HX of Motion Sickness No 03/06/25 14:04 HX of N/V After Surgery No 03/06/25 14:04 Non-Smoker Yes 03/06/25 14:04 Duration of Surgery greater Yes 03/06/25 14:04 than 60 minutes Number of Risk Factors 2 03/06/25 14:04 PONV Score Moderate Risk 03/06/25 14:04 Height & Weight Height & Weight: Anesthesia: Height & Weight Height 6 ft 03/11/25 08:05 Weight: 165 kg 03/11/25 08:05 Body Mass Index (BMI) 49.3 03/11/25 08:05 Respiratory Assessment Respiratory Assessment - child day care center worker: Respiratory Tract Infection Hx - child day care center worker Hx Respiratory Tract Infection No 03/06/25 14:04 STOP Sleep Apnea STOP Sleep Apnea - child day care center worker: STOP Sleep Apnea - child day care center worker Hx Hypertension Yes: PER PT, CONTROLLED ON 03/06/25 14:04 MEDS Hx Sleep Apnea Yes 03/06/25 14:04 CPAP No 03/06/25 14:04 BIPAP No 03/06/25 14:04 Do you snore loudly (louder than talking or can be heard Do you often feel tired/ fatigued/ sleepy during daytime? Has anyone observed you stop breathing during sleep? STOP Results Positive 03/06/25 14:04 QUESTION #5 FULL TEXT : Do you snore loudly (louder than talking or can be heard through closed doors)? Tobacco Use History Tobacco Use History - child day care center worker: Tobacco Use History - child day care center worker Tobacco Use Smoking Status Never smoker 03/06/25 14:04 Hx Tobacco Use No 03/06/25 14:04 Years Smoking Packs Smoked per Day Smoking Cessation Date was within the last 15 years Hx Smoking Cessation Date Hx Smoking Cessation Counseling Hematologic Medial History Hematologic Hx - child day care center worker: Hematologic Medical Hx - documentation consultant Hx of Blood Transfusion No 03/06/25 14:04 Hx of Transfusion in last 3 No 03/06/25 14:04 Months Date of Last Transfusion (if within last 3 months) Ever experience any problems No 03/06/25 14:04 with transfusion(s)? Specify any problems Hx of Preganancy in last 3 N/A 03/06/25 14:04 Months Nurse Filling Out Transfusion MGRIFFITH 03/06/25 14:04 & Questions: Date: 03/06/25 03/06/25 14:04 Time: 14:07 03/06/25 14:04 Patient unable to answer at this time (ie. confused, unrespo /Reproduction History /Reproductive History - child day care center worker: /Reproductive Hx- child day care center worker Hx Now No 03/06/25 14:04 Gestational Age (in weeks): EDC: Hx Hx Para Hx Section SAB Active Medications Active Medications: Current Medications Generic Name Dose Route Start Last Admin Trade Name Freq PRN Reason Stop Dose Admin Cefazolin Sodium 2 gm/ Sodium 110 mls @ 200 mls/hr 03/11/25 13:20 Chloride IV 03/11/25 13:52 INTRAOP ONE Lactated Ringer's 1,000 mls @ 15 mls/hr 03/11/25 07:45 03/11/25 08:16 IV 15 mls/hr .Q48H AKHIL Administration PFSH Medical History Wears glasses Vertigo History of MRSA infection Cancer Neuropathy Rheumatoid arthritis Arthritis High cholesterol Excessive bleeding Dietary restriction History of diverticulitis Sleep apnea Non-smoker History of echocardiogram History of stress test Hypertension Cardiology follow-up encounter History of atrial fibrillation History of CHF (congestive heart failure) Hypothyroidism Depression Diaphragm dysfunction Dupuytren's fibromatosis Basal cell carcinoma (BCC) in situ of skin Insomnia Bursitis of right shoulder Pneumonia Diverticulitis Diabetes type 2, controlled Hypoglycemia Gout Hyperlipidemia LDL goal <130 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 Home Medications ?Medication ?Instructions ?Recorded ?Last Taken ?Type aspirin 81 mg tablet,delayed 81 mg PO DAILY 03/02/18 Unknown History release (Adult Low Dose Aspirin) magnesium oxide 500 mg capsule 500 mg PO DAILY 03/02/18 03/10/25 History prodigy #1 ea 03/02/18 Unknown History fluticasone propionate 0.05 % 1 applic topical QD-BID PRN 11/05/20 Unknown Rx topical cream (Cutivate) allergic reaction #60 grams albuterol sulfate 90 mcg/actuation 2 puff inhalation Q4H PRN sob #6.7 08/22/24 Unknown Rx aerosol inhaler (Ventolin HFA) grams amlodipine 5 mg tablet 5 mg PO DAILY #90 tabs 08/22/24 03/10/25 Rx bupropion HCl 100 mg tablet,12 hr 100 mg PO BID #180 tabs 08/22/24 03/10/25 Rx sustained-release celecoxib 200 mg capsule 200 mg PO BID #180 caps 08/22/24 02/19/25 Rx gabapentin 400 mg capsule 400 mg PO TID 90 days #270 caps 08/22/24 03/10/25 Rx glimepiride 4 mg tablet 4 mg PO QAM #90 tabs 08/22/24 03/10/25 Rx metformin 850 mg tablet 850 mg PO BID #180 tabs 08/22/24 03/10/25 Rx metoprolol tartrate 37.5 mg tablet 37.5 mg PO BID #180 tabs 08/22/24 03/10/25 Rx mirtazapine 15 mg tablet 7.5 mg (1/2 x 15 mg) PO QHS PRN 08/22/24 03/10/25 Rx sleep 90 days #90 tabs pioglitazone 45 mg tablet 45 mg PO DAILY #90 tabs 08/22/24 03/10/25 Rx sumatriptan succinate 50 mg tablet See Rx Instructions PO .COMPLEX 90 08/22/24 Unknown Rx days #20 tabs tramadol 50 mg tablet 50 mg PO TID neuropathic pain #90 08/22/24 03/10/25 Rx tabs levothyroxine 75 mcg tablet 75 mcg PO QDAY #90 tabs 11/03/24 03/10/25 Rx (Euthyrox) atorvastatin 40 mg tablet 40 mg PO QHS #90 tabs 11/27/24 03/10/25 Rx rimegepant 75 mg disintegrating 75 mg PO ONCE PRN migraine headache 11/27/24 Unknown History tablet (Nurtec ODT) rimegepant 75 mg disintegrating 75 mg PO ONCE PRN migraine 11/28/24 Unknown Rx tablet (Nurtec ODT) headache #7 tabs ammonium lactate 12 % topical cream 1 applic topical PRN CRACKED HANDS 03/06/25 Unknown History apixaban 5 mg tablet (Eliquis) 5 mg PO BID 03/06/25 03/07/25 History duloxetine 60 mg capsule,delayed 60 mg PO QHS 03/06/25 03/10/25 History release furosemide 40 mg tablet 40 mg PO DAILY 03/06/25 03/10/25 History ketorolac 10 mg tablet 10 mg PO 4X/DAY PRN PRN moderate 03/06/25 03/10/25 History pain meclizine 12.5 mg tablet 12.5 mg PO TID PRN vertigo 03/06/25 Unknown History tamsulosin 0.4 mg capsule 0.4 mg PO DAILY 03/06/25 03/10/25 History Allergy/AdvReac Type Severity Reaction Status Date / Time No Known Allergies Allergy Verified 03/11/25 08:02 Family History Other Esophageal cancer FH: ovarian cancer Surgical History History of surgery History of foot surgery History of colonoscopy Lump of skin of back History of colectomy History of appendectomy History of cholecystectomy Social History Smoking Status: Never smoker Review of Systems (Anesthesia) ROS Narrative System reviewed and no additional complaints, except as documented.
[2025-03-11] MEDS: Lidocaine 1% (5 ml sdv) 5 ML Vial IV (09:46)
[2025-03-11] MEDS: Cefazolin 1 GM/5 ML Vial 3 GM IV (09:50)
[2025-03-11] MEDS: fentaNYL 100 MCG/2 ML Ampul IV (10:27)
--- NOTE | 2025-03-11 10:36 | DCINST_ITS ---
Discharge Instructions DC O2, CPAP, BIPAP needs Home O2 Discharge instructions: No Dressing / Incision Discharge Activity: Return to Normal Activity and May Not Drive (while taking narcotic pain medications.) Dressing / Incision Call your doctor if you observe: Fever of 101 or Higher Follow Up Care Please Follow Up With: Edmundo Wiggins MD When: Call [phone] for an appointment Test Results: Test results from this visit will be discussed in further detail at your follow- up appointment, if applicable. Discharge Plan Admission Primary Reason for Your Visit: right kidney stone Attending Provider: Edmundo Wiggins Primary Care Provider: Jenny Live NP Instructions Print Language: Ukrainian Discharge Orders/Prescriptions Prescriptions: New cephalexin 500 mg capsule 500 mg PO Q6H Qty: 28 0RF phenazopyridine [Pyridium] 100 mg tablet 100 mg PO TID Qty: 20 0RF oxycodone 5 mg tablet 5 mg PO Q6H PRN (Reason: pain) 7 Days Qty: 20 0RF Continued magnesium oxide 500 mg capsule 500 mg PO DAILY (DME) prodigy Qty: 1 Dose Instruction: As directed Rx Instructions: As directed aspirin [Adult Low Dose Aspirin] 81 mg tablet,delayed release (DR/EC) 81 mg PO DAILY Patient Comments: LAST DOSE 02/19/25 FOR SURGERY 03/11/25 fluticasone propionate [Cutivate] 0.05 % cream 1 applic TOPICAL QD-BID PRN (Reason: allergic reaction) Qty: 60 12RF albuterol sulfate [Ventolin HFA] 90 mcg/actuation HFA aerosol inhaler 2 puff inhalation Q4H PRN (Reason: sob) Qty: 6.7 3RF amlodipine 5 mg tablet 5 mg PO DAILY Qty: 90 3RF bupropion HCl 100 mg tablet sustained-release 12 hr 100 mg PO BID Qty: 180 3RF celecoxib 200 mg capsule 200 mg PO BID Qty: 180 3RF gabapentin 400 mg capsule 400 mg PO TID 90 Days Qty: 270 3RF glimepiride 4 mg tablet 4 mg PO QAM Qty: 90 3RF metformin 850 mg tablet 850 mg PO BID Qty: 180 3RF metoprolol tartrate 37.5 mg tablet 37.5 mg PO BID Qty: 180 3RF mirtazapine 15 mg tablet 7.5 mg PO QHS PRN (Reason: sleep) 90 Days Qty: 90 3RF pioglitazone 45 mg tablet 45 mg PO DAILY Qty: 90 3RF sumatriptan succinate 50 mg tablet See Rx Instructions PO .COMPLEX 90 Days Qty: 20 3RF Dose Instruction: take 1 tab at onset of headache; if no relief may repeat 1 tab in 2hr; max = 4 tabs/day (24hr) PO Rx Instructions: take 1 tab at onset of headache; if no relief may repeat 1 tab in 2hr; max = 4 tabs/day (24hr) PO tramadol 50 mg tablet 50 mg PO TID Qty: 90 5RF atorvastatin 40 mg tablet 40 mg PO QHS Qty: 90 3RF Nurtec ODT 75 mg tablet,disintegrating 75 mg PO ONCE PRN (Reason: migraine headache) Rx Instructions: as a single dose Nurtec ODT 75 mg tablet,disintegrating 75 mg PO ONCE PRN (Reason: migraine headache) Qty: 7 12RF Rx Instructions: as a single dose furosemide 40 mg tablet 40 mg PO DAILY ketorolac 10 mg tablet 10 mg PO 4X/DAY PRN PRN (Reason: moderate pain) tamsulosin 0.4 mg capsule 0.4 mg PO DAILY meclizine 12.5 mg tablet 12.5 mg PO TID PRN (Reason: vertigo) ammonium lactate 12 % cream 1 applic TOPICAL PRN duloxetine 60 mg capsule,delayed release(DR/EC) 60 mg PO QHS Eliquis 5 mg tablet 5 mg PO BID Patient Comments: LAST DOSE TO BE 03/07/25 levothyroxine [Euthyrox] 75 mcg tablet 75 mcg PO QDAY Qty: 90 3RF Referrals / Follow Up: Edmundo Wiggins MD [Med Staff - Active Staff, Urology] Jenny Live NP, BUSINESS CASE ANALYST-C [Primary Care Provider, Family Practice] Disposition Disposition (needs filled in before D/C Order can be placed): Home, Self Care
--- NOTE | 2025-03-11 10:37 | OP.PCM_ITS ---
Operative Report (Standard) Operative Information Date of Procedure: 03/11/25 Pre-Operative Diagnosis: Right kidney stone Post-Operative Diagnosis: The same Surgery/Procedure Performed: Cystoscopy right ureteroscopy laser lithotripsy of stone and right stent placement, right retrograde pyelogram donor relations associate: No Type of Anesthesia: General RN Documented Start/Stop Times: Operation Date: 03/11/25 09:50 Case Time Into Pre-Op 03/11/25 07:43 Out of Pre-Op 03/11/25 09:38 Anesthesia Start 03/11/25 09:41 Into Room 03/11/25 09:41 Procedure Start 03/11/25 09:58 Procedure End 03/11/25 10:22 Anesthesia End 03/11/25 10:31 Out of Room 03/11/25 10:31 Procedure Start Time: 09:58 Procedure Stop Time: 10:22 Select all DRAINS/GRAFTS/IMPLANTS that apply: Drains Drain details: 6 x 26 stent Estimated Blood Loss: None Specimen collected: No Description of surgery: Indication 59-year-old male with a large stone on the right kidney plan to take patient to surgery for laser lithotripsy of stone and stent placement, is taken back to the operating room after induction of anesthesia he was placed in dorsolithotomy position penis and testicles were prepped and draped in usual fashion within the bladder with a 21 Bengali rigid cystourethroscope cannulated the right ureter orifice with a Glidewire and a Pollick catheter performed a retrograde pyelogram, and then after this to put a wire up into the right kidney over the wire I went in with a 8 Bengali flexible Olympus ureteroscope was able to get in the ureter quite easily worked our way all up the way to the kidney I then found the stone in the midpole of the right kidney I used 365 ?m laser fiber and thulium fiber with dusting settings and the stone was lasered completely into tiny little pieces after successfully lasering the stone I worked my way down the ureter and then put a wire up into the right kidney of the wire placed a stent stent coiled in the kidney and bladder in good position the wire was pulled bladder was drained patient anesthetic reversed taken back to PACU in stable condition and follow-up in 1 week for stent removal Surgical Findings: Stone lasered completely Complications Complications: No Admit VTE Documentation VTE Present on Admission: No VTE Mechan Device Prophylaxis: SCD's VTE Pharm Prophylaxis ordered?: No
[2025-03-11] MEDS: Ketorolac 30 MG/ML Syringe IV (11:05)
--- NOTE | 2025-03-11 12:30 | PCM.POSTANE2 ---
Anesthesia Postop Eval I Sum Anesthesia Postop Eval I Summary Anesthesia Postop Eval I Summary: Anesthesia Postop Eval I: Assessment Summary Airway patent Spontaneous unlabored respirations Mental status nausea Vomiting Anesthesia Postop Eval I: Fluid Summary Crystalloid volume administer (ml) Colloids volume administered ( ml) Blood Product volume administered (ml) Total IV fluid infused Anesthesia Postop Eval I: Summary Notes Anesthesia Complication Anesthesia Complication Comment: Post-operative progress note Anesthesia: Postop Eval II Evaluation Mental status: Awake and Calm Pain Level: 1 nausea: No Vomiting: No Complications Anesthesia Complication: No
--- NOTE | 2025-03-11 12:43 | PCM.POST.ANE ---
Anesthesia: Postop Eval I Current Vital Signs Temperature: 97 F Pulse Rate: 76 Blood Pressure: 124/64 Respiratory Rate: 16 Pulse Ox: 96 Oxygen Delivery Method: Nasal Cannula Oxygen Flow Rate (L/min): 2 Assessment Airway patent: Yes Spontaneous unlabored respirations: Yes Mental status: Awake and Calm nausea: No Vomiting: No Anesthesia Complication: No Fluid Hydration Crystalloid volume administer (ml): 800 Total IV fluid infused: 800 Progress Note Post-operative progress note: Evaluation time 1045 Anesthesia document: Postop Eval 1 completed: Yes
== END 2025-03-11 12:13 | disposition home or self-care (01) ==
LOC: SDC 07:43 → AC 07:44
PROVIDERS: PCP Nurse Practitioner; Referring Provider Urology; Visit Provider Urology
PROC: 0TJ98ZZ Inspection of Ureter, Via Natural or Artificial Opening Endoscopic (ICD-10-PCS; CPT 52352; principal; 2025-03-11 09:35)
DX: N20.2 Calculus of kidney with calculus of ureter (principal); I11.0 Hypertensive heart disease with heart failure; I50.9 Heart failure, unspecified; E11.9 Type 2 diabetes mellitus without complications; Z79.899 Other long term (current) drug therapy; Z79.890 Hormone replacement therapy; Z79.84 Long term (current) use of oral hypoglycemic drugs; E78.00 Pure hypercholesterolemia, unspecified; Z79.01 Long term (current) use of anticoagulants; E03.9 Hypothyroidism, unspecified
CPT/HCPCS: 52356; 00873; 76000; 82962; C1769; C2617; J2405

== ENCOUNTER 2025-03-16 05:18 | Inpatient (IN) | payer MEDICARE, BC, SELFPAY ==
[2025-03-16] VITALS (8 sets, daily range): BP systolic 91–127; BP diastolic 59–73; PULSE 62–68; RESP 16–18; TEMP 35.5–36.7; O2SAT 94–97; BMI 46.5
--- NOTE | 2025-03-16 05:39 | HP.PCM.HOS_ITS ---
[facility] General Date of Admission: 03/16/25 Date of Service: 03/16/25 Chief Complaint: SOB. [facility] Narrative JAME WALLACE, is a 59 M with a past medical history of essential hypertension; on amlodipine and metoprolol twice daily, recently diagnosed CHF; on furosemide, hyperlipidemia; on atorvastatin, hypothyroidism; on levothyroxine, morbid (class III) obesity; with BMI of 46.6 this admission, ADDY, DM-2; of unknown control on metformin twice daily, pioglitazone and glimepiride, diabetic neuropathy; on gabapentin 3 times daily plus as needed tramadol 3 times daily, recently diagnosed paroxysmal atrial fibrillation; on apixaban twice daily, RLS; on mirtazapine nightly, migraine headaches; on rimegepant prn, history of vertigo; on meclizine as needed, BPH; on tamsulosin, history of COVID-19, history of MRSA, history of Dupuytren's fibromatosis, history of diverticulitis, history of colectomy, history of appendectomy, history of cholecystectomy, history of basal cell carcinoma; s/p excision, depression; on bupropion twice daily, history of gout; currently not on treatment, RA, OA; with chronic pain on oxycodone every 6 hours as needed and recently diagnosed Right renal calculus; s/p double-J stent placement by Dr. Wiggins on March 11, 2025 who was transferred by patient's request from [facility] for ongoing treatment of recently diagnosed AE CHF; of uncertain type with BNP of ~1,600. Mr. Wallace reports his symptoms began ~3 weeks prior to admission when he was first diagnosed with AE CHF while at another local hospital ([place]) with persistent dyspnea on exertion since that time that has worsened causing him to go to [facility] as he was not covered by his insurance at the previous facility. Patient does not recollect his LVEF or any details regarding his type of heart failure but he does admit to recently being diagnosed with atrial fibrillation and being started on apixaban. He admits to lower extremity edema. He denies associated fever, chills, nausea, vomiting, diarrhea, constipation, chest pain, palpitations, heart racing, dysuria, hematuria, headache or rash. He was then diagnosed with AE CHF; of uncertain type complicated by clinical evidence of Acute Respiratory Insufficiency requiring 2L NC with patient admitted to the PCU for ongoing care for stated is expected to extend beyond 2 midnights. [facility] Medical History (Updated 03/16/25 @ 06:[address] Jame Prado, DO) Diabetes Chronic pain Kidney stones Atrial fibrillation Congestive heart failure (CHF) Wears glasses Vertigo History of MRSA infection Cancer Neuropathy Rheumatoid arthritis Arthritis High cholesterol Excessive bleeding Dietary restriction History of diverticulitis Sleep apnea Non-smoker History of echocardiogram History of stress test Hypertension Cardiology follow-up encounter History of atrial fibrillation History of CHF (congestive heart failure) Hypothyroidism Depression Diaphragm dysfunction Dupuytren's fibromatosis Basal cell carcinoma (BCC) in situ of skin Insomnia Bursitis of right shoulder Pneumonia Diverticulitis Diabetes type 2, controlled Hypoglycemia Gout Hyperlipidemia LDL goal <130 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 Home Medications ?Medication ?Instructions ?Recorded ?Last Taken ?Type aspirin 81 mg tablet,delayed 81 mg PO DAILY 03/02/18 U nknown History release (Adult Low Dose Aspirin) magnesium oxide 500 mg capsule 500 mg PO DAILY 8 03/10/25 History prodigy #1 ea 03/02/18 Unknown Histo ry fluticasone propionate 0.05 % 1 applic topical QD-BID PRN 11/05/20 Unknown Rx topical cream (Cutivate) allergic reaction #60 grams albuterol sulfate 90 mcg/actuation 2 puff inhalation Q 4H PRN sob #6.7 08/22/24 Unknown Rx aerosol inhaler (Ventolin HFA) grams amlodipine 5 mg tablet 5 mg PO DAILY #90 tabs 08/2203/10/25 Rx bupropion HCl 100 mg tablet,12 hr 100 mg PO BID #180 t abs 08/22/24 03/10/25 Rx sustained-release celecoxib 200 mg capsule 200 mg PO BID #180 caps 08/0302/19/25 Rx gabapentin 400 mg capsule 400 mg PO TID 90 days #270 c aps 08/22/24 03/10/25 Rx glimepiride 4 mg tablet 4 mg PO QAM #90 tabs 5 03/10/25 Rx metformin 850 mg tablet 850 mg PO BID #180 tabs 08/0303/10/25 Rx metoprolol tartrate 37.5 mg tablet 37.5 mg PO BID #180 tabs 08/22/24 03/10/25 Rx mirtazapine 15 mg tablet 7.5 mg (1/2 x 15 mg) PO QHS PRN 08/22/24 03/10/25 Rx sleep 90 days #90 tabs pioglitazone 45 mg tablet 45 mg PO DAILY #90 tabs 03/06/2803/10/25 Rx sumatriptan succinate 50 mg tablet See Rx Instructions PO .COMPLEX 90 08/22/24 Unknown Rx days #20 tabs tramadol 50 mg tablet 50 mg PO TID neuropathic leigha n #90 08/22/24 03/10/25 Rx tabs levothyroxine 75 mcg tablet 75 mcg PO QDAY #90 tabs 03/10/25 Rx (Euthyrox) atorvastatin 40 mg tablet 40 mg PO QHS #90 tabs 03/10/25 Rx rimegepant 75 mg disintegrating 75 mg PO ONCE PRN migr eduarda headache 11/27/24 Unknown History tablet (Nurtec ODT) rimegepant 75 mg disintegrating 75 mg PO ONCE PRN migr eduarda 11/28/24 Unknown Rx tablet (Nurtec ODT) headache #7 tabs ammonium lactate 12 % topical cream 1 applic topical P RN CRACKED HANDS 03/06/25 Unknown History apixaban 5 mg tablet (Eliquis) 5 mg PO BID 03/06/25 History duloxetine 60 mg capsule,delayed 60 mg PO QHS 03/06/25 03/10/25 History release furosemide 40 mg tablet 40 mg PO DAILY 03/06/2512/26 History ketorolac 10 mg tablet 10 mg PO 4X/DAY PRN PRN mode rate 03/06/25 03/10/25 History pain meclizine 12.5 mg tablet 12.5 mg PO TID PRN vertigo 1 Unknown History tamsulosin 0.4 mg capsule 0.4 mg PO DAILY 03/06/2512/26 History cephalexin 500 mg capsule 500 mg PO Q6H #28 caps 03/11 Unknown Rx oxycodone 5 mg tablet 5 mg PO Q6H PRN pain 7 days #20 03/11/25 Unknown Rx tabs phenazopyridine 100 mg tablet 100 mg PO TID #20 tabs 1 Unknown Rx (Pyridium)
--- NOTE | 2025-03-16 05:39 | PCM.HP.STD ---
[facility] General Date of Admission: 03/16/25 Date of Service: 03/16/25 Chief Complaint: SOB. [facility] Narrative ANDREW WALLACE, is a 59 M with a past medical history of essential hypertension; on amlodipine and metoprolol twice daily, recently diagnosed CHF; on furosemide, hyperlipidemia; on atorvastatin, hypothyroidism; on levothyroxine, morbid (class III) obesity; with BMI of 46.6 this admission, ADDY, DM-2; of unknown control on metformin twice daily, pioglitazone and glimepiride, diabetic neuropathy; on gabapentin 3 times daily plus as needed tramadol 3 times daily, recently diagnosed paroxysmal atrial fibrillation; on apixaban twice daily, RLS; on mirtazapine nightly, migraine headaches; on rimegepant prn, history of vertigo; on meclizine as needed, BPH; on tamsulosin, history of COVID-19, history of MRSA, history of Dupuytren's fibromatosis, history of diverticulitis, history of colectomy, history of appendectomy, history of cholecystectomy, history of basal cell carcinoma; s/p excision, depression; on bupropion twice daily, history of gout; currently not on treatment, RA, OA; with chronic pain on oxycodone every 6 hours as needed and recently diagnosed Right renal calculus; s/p double-J stent placement by Dr. Wiggins on March 11, 2025 who was transferred by patient's request from [facility] for ongoing treatment of recently diagnosed AE CHF; of uncertain type with BNP of ~1,600. Mr. Wallace reports his symptoms began ~3 weeks prior to admission when he was first diagnosed with AE CHF while at another local hospital ([place]) with persistent dyspnea on exertion since that time that has worsened causing him to go to [facility] as he was not covered by his insurance at the previous facility. Patient does not recollect his LVEF or any details regarding his type of heart failure but he does admit to recently being diagnosed with atrial fibrillation and being started on apixaban. He admits to lower extremity edema. He denies associated fever, chills, nausea, vomiting, diarrhea, constipation, chest pain, palpitations, heart racing, dysuria, hematuria, headache or rash. He was then diagnosed with AE CHF; of uncertain type complicated by clinical evidence of Acute Respiratory Insufficiency requiring 2L NC with patient admitted to the PCU for ongoing care for stated is expected to extend beyond 2 midnights. [facility] Medical History (Updated 03/16/25 @ 06:[address] Andrew Prado, DO) Diabetes Chronic pain Kidney stones Atrial fibrillation Congestive heart failure (CHF) Wears glasses Vertigo History of MRSA infection Cancer Neuropathy Rheumatoid arthritis Arthritis High cholesterol Excessive bleeding Dietary restriction History of diverticulitis Sleep apnea Non-smoker History of echocardiogram History of stress test Hypertension Cardiology follow-up encounter History of atrial fibrillation History of CHF (congestive heart failure) Hypothyroidism Depression Diaphragm dysfunction Dupuytren's fibromatosis Basal cell carcinoma (BCC) in situ of skin Insomnia Bursitis of right shoulder Pneumonia Diverticulitis Diabetes type 2, controlled Hypoglycemia Gout Hyperlipidemia LDL goal <130 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 Home Medications ?Medication ?Instructions ?Recorded ?Last Taken ?Type aspirin 81 mg tablet,delayed 81 mg PO DAILY 03/02/18 Unknown History release (Adult Low Dose Aspirin) magnesium oxide 500 mg capsule 500 mg PO DAILY 03/02/18 03/10/25 History prodigy #1 ea 03/02/18 Unknown History fluticasone propionate 0.05 % 1 applic topical QD-BID PRN 11/05/20 Unknown Rx topical cream (Cutivate) allergic reaction #60 grams albuterol sulfate 90 mcg/actuation 2 puff inhalation Q4H PRN sob #6.7 08/22/24 Unknown Rx aerosol inhaler (Ventolin HFA) grams amlodipine 5 mg tablet 5 mg PO DAILY #90 tabs 08/22/24 03/10/25 Rx bupropion HCl 100 mg tablet,12 hr 100 mg PO BID #180 tabs 08/22/24 03/10/25 Rx sustained-release celecoxib 200 mg capsule 200 mg PO BID #180 caps 08/22/24 02/19/25 Rx gabapentin 400 mg capsule 400 mg PO TID 90 days #270 caps 08/22/24 03/10/25 Rx glimepiride 4 mg tablet 4 mg PO QAM #90 tabs 08/22/24 03/10/25 Rx metformin 850 mg tablet 850 mg PO BID #180 tabs 08/22/24 03/10/25 Rx metoprolol tartrate 37.5 mg tablet 37.5 mg PO BID #180 tabs 08/22/24 03/10/25 Rx mirtazapine 15 mg tablet 7.5 mg (1/2 x 15 mg) PO QHS PRN 08/22/24 03/10/25 Rx sleep 90 days #90 tabs pioglitazone 45 mg tablet 45 mg PO DAILY #90 tabs 08/22/24 03/10/25 Rx sumatriptan succinate 50 mg tablet See Rx Instructions PO .COMPLEX 90 08/22/24 Unknown Rx days #20 tabs tramadol 50 mg tablet 50 mg PO TID neuropathic pain #90 08/22/24 03/10/25 Rx tabs levothyroxine 75 mcg tablet 75 mcg PO QDAY #90 tabs 11/03/24 03/10/25 Rx (Euthyrox) atorvastatin 40 mg tablet 40 mg PO QHS #90 tabs 11/27/24 03/10/25 Rx rimegepant 75 mg disintegrating 75 mg PO ONCE PRN migraine headache 11/27/24 Unknown History tablet (Nurtec ODT) rimegepant 75 mg disintegrating 75 mg PO ONCE PRN migraine 11/28/24 Unknown Rx tablet (Nurtec ODT) headache #7 tabs ammonium lactate 12 % topical cream 1 applic topical PRN CRACKED HANDS 03/06/25 Unknown History apixaban 5 mg tablet (Eliquis) 5 mg PO BID 03/06/25 03/07/25 History duloxetine 60 mg capsule,delayed 60 mg PO QHS 03/06/25 03/10/25 History release furosemide 40 mg tablet 40 mg PO DAILY 03/06/25 03/10/25 History ketorolac 10 mg tablet 10 mg PO 4X/DAY PRN PRN moderate 03/06/25 03/10/25 History pain meclizine 12.5 mg tablet 12.5 mg PO TID PRN vertigo 03/06/25 Unknown History tamsulosin 0.4 mg capsule 0.4 mg PO DAILY 03/06/25 03/10/25 History cephalexin 500 mg capsule 500 mg PO Q6H #28 caps 03/11/25 Unknown Rx oxycodone 5 mg tablet 5 mg PO Q6H PRN pain 7 days #20 03/11/25 Unknown Rx tabs phenazopyridine 100 mg tablet 100 mg PO TID #20 tabs 03/11/25 Unknown Rx (Pyridium) Allergy/AdvReac Type Severity Reaction Status Date / Time No Known Allergies Allergy Verified 03/11/25 08:02 Family History Other Esophageal cancer FH: ovarian cancer Surgical History History of surgery History of foot surgery History of colonoscopy Lump of skin of back History of colectomy History of appendectomy History of cholecystectomy Social History Smoking Status: Never smoker ROS ROS Narrative Review of Systems: Constitutional: Patient denies fever or chills. Eyes: Patient denies changes in vision or discharge from eyes. ENT: Patient denies runny nose, sore throat or ear pain. Resp: Patient admits to dyspnea on exertion and progressive shortness of breath at rest. CV: Patient denies chest pain, palpitations or heart racing but he does admit to lower extremity edema. GI: Patient denies abdominal pain, nausea, vomiting, diarrhea or constipation. : Patient denies dysuria or hematuria. MSK: Patient denies arthralgias or myalgias. Skin: Patient denies rash, abscess, wounds or jaundice. Psych: Patient denies symptoms of uncontrolled depression or anxiety. Neuro: Patient denies headache, paresthesias or focal neurologic deficits. Hematology: Patient admits to easy bleeding and bruisability on apixaban. Endocrinology: Patient denies polyuria, polydipsia, polyphagia or heat/cold intolerance. 14 point ROS otherwise negative except for positives noted above in HPI. Vital Signs Vital Signs Vital Signs: 03/16/25 05:26 03/16/25 05:35 Temperature 96 F L Temperature Source Temporal Pulse Rate 64 Respiratory Rate 18 Respiratory Effort Normal Non-Labored Respiratory Depth Normal Respiratory Pattern Normal Blood Pressure 127/73 H Blood Pressure Mean 91 Pulse Ox 97 Oxygen Delivery Method Nasal Cannula Nasal Cannula Oxygen Flow Rate (L/min) 3 2 Weight Weight: 362 lb 14.094 oz Body Mass Index (BMI) 46.5 Physical Exam Const alert, oriented x3 and no apparent distress Constitutional Narrative: Patient is morbidly obese but nontoxic in appearance. General Appearance: cooperative HEENT normocephalic, head/scalp atraumatic, hearing grossly normal bilaterally and moist oral mucous membranes Eyes PERRL, EOMs intact bilaterally and conjunctivae normal Neck no lymphadenopathy, supple and no JVD Resp normal respiratory effort, no retractions, no use of accessory muscles and clear to auscultation bilaterally Cardio regular rate and regular rhythm GI normal to inspection, nondistended, normoactive bowel sounds, soft to palpation, non-tender and non-distended GI Narrative: Morbidly obese. Extremity Extremity Narrative: ~2+ bilateral lower symmetrical extremity pitting edema. Skin Skin Narrative: Patient has no evidence of rash, abscess, wounds or jaundice. Neuro oriented x3, CN's II-XII intact bilaterally, moves all extremities and no focal motor deficits Sensorium / Orientation: awake, alert, oriented to person, oriented to place and oriented to time Speech: speech normal Psych affect normal Results Medical Records Data Attestation: I reviewed the patient's medical records Lab / Micro Data Attestation: I reviewed the patient's lab results. 03/16/25 05:57 03/16/25 05:57 Assessment & Plan Assessment/Plan (1) CHF exacerbation: QUALIFIERS: Heart failure type: unspecified Qualified Code(s): I50.9 - Heart failure, unspecified (2) Respiratory insufficiency: (3) Atrial fibrillation: QUALIFIERS: Atrial fibrillation type: unspecified Qualified Code(s): I48.91 - Unspecified atrial fibrillation (4) Chronic anticoagulation: (5) Morbid obesity with BMI of 45.0-49.9, adult: (6) ADDY (obstructive sleep apnea): (7) Diaphragm dysfunction: PLAN: Plan 1. AE CHF; of uncertain type - Admit to PCU. Continue furosemide BID plus supplemental KCl and magnesium. PCU primer charger asked to obtain records from outside hospital to obtain recent echocardiogram results. Serialize troponin. Check CXR and NT pro-BNP II. Finally, we will consult [facility] to see this patient on rounds in the a.m. for further recommendations with help appreciated in advance. 2. Acute Respiratory Insufficiency requiring 2L NC due to #1 - Wean supplemental oxygen as tolerated. 3. Recently diagnosed PAF; on apixaban complicating #1 & #2 - Continue apixaban as before. 4. Morbid (class III) obesity; with BMI of 46.6 this admission plus ADDY with Diaphragmatic Dysfunction compounding #1 - #3 - Weight loss will be recommended. Check TSH. Give nocturnal CPAP. This complicates his case and may hamper recovery. 5. Recently diagnosed Right renal calculus; s/p double-J stent placement by Dr. Wiggins on March 11, 2025 - Stable with stent in good position on recent CT. 6. Essential hypertension; on amlodipine and metoprolol twice daily - Maintain home regimen. 7. Hyperlipidemia; on atorvastatin - Resume statin and check Lipid Profile. 8. Hypothyroidism; on levothyroxine - Continue levothyroxine and check TSH. 9. DM-2; of unknown control on metformin twice daily, pioglitazone and glimepiride - Hold oral hypoglycemic medications while inpatient. ADA/cardiac diet with FSBS q. AC/HS plus SSI. Check HgbA1c to objectively assess quality of diabetic control. 10. Diabetic neuropathy; on gabapentin 3 times daily plus as needed tramadol 3 times daily - Maintain gabapentin as previous but hold tramadol in light of oxycodone as outlined in #26. 11. RLS; on mirtazapine nightly - Present therapy to continue. 12. Migraine headaches; on rimegepant prn - Continue rimegepant as previous. 13. History of vertigo; on meclizine as needed - Resume prn meclizine if vertigo symptoms develop. 14. BPH; on tamsulosin - Continue tamsulosin. 15. History of COVID-19 - Noted. 16. History of MRSA - Noted. 17. History of Dupuytren's fibromatosis - Noted. 18. History of diverticulitis - Stable with no active complaints related to this issue at this time. 19. History of colectomy - Noted. 20. History of appendectomy - Noted. 21. History of cholecystectomy - Noted. 22. History of basal cell carcinoma; s/p excision - Noted. 23. Depression; on bupropion twice daily - Continue bupropion as before. 24. History of gout; currently not on treatment - Stable with no evidence of acute flare at this time. 25. RA - Noted. 26. OA; with chronic pain on oxycodone every 6 hours as needed - Give acetaminophen prn for [id number] (level 1-5/10) pain or fever. Give oxycodone prn for severe (level 6-10/10) pain. 27. DVT prophylaxis - Patient on apixaban for #3 which will be continued. Total time: Approximately (but not less than) 75 minutes. Charges/Coding Visit Charges Inpatient E&M: 37395 Init Hosp L3
--- NOTE | 2025-03-16 05:58 | EKG12_ITS ---
Test Reason : CHF Blood Pressure : */* mmHG Vent. Rate : 66 BPM Atrial Rate : 66 BPM P-R Int : 136 ms QRS Dur : 144 ms QT Int : 444 ms P-R-T Axes : 9 -19 0 degrees QTcB Int : 465 ms Normal sinus rhythm Right bundle branch block Abnormal ECG No previous ECGs available Confirmed by JEAN-PIERRE SEAMAN, CATRINA ([id number]), assistant production editor VAISHALI BERRY ([id number]) on 03/17/2025 7:57:19 AM Referred By: BASHIR Confirmed By: CATRINA MOREJON MD
--- NOTE | 2025-03-16 06:19 | RAD_ITS ---
PROCEDURE: CHEST 1 VIEW (PORTABLE) 03/16/2025 REASON FOR EXAM: AE CHF TECHNIQUE: Frontal view of the chest. COMPARISON: None FINDINGS: There is elevation of the right hemidiaphragm which can indicate paralysis. There is cardiomegaly with mild central vascular congestion. There is no focal infiltrate or consolidation. There is no pneumothorax or effusion. There is no acute bony abnormality. Atherosclerotic calcifications are visible. RAD/Chest 1 View (Portable) IMPRESSION: There is elevation of the right hemidiaphragm which can indicate paralysis. There is cardiomegaly with mild central vascular congestion. Reading Location: [facility]
[2025-03-16 06:23] LABS: Hematocrit 38.9 % (40-54); Hemoglobin 12.7 g/dL (13.0-16.5); Immature Granulocytes Count 0.030 X10^3/uL (0.0-0.0); Mean Corp Hgb Conc 32.6 g/dL (32-36); Mean Corpuscular Volume 94.2 fL (80-94); Mean Platelet Vol. 11.8 fl (6.2-12.0); NRBC Flagged by Analyzer 0 % (0-5); Platelet Count 204 K/mm3 (150-450); RBC Distribution Width CV 13.2 % (11.6-14.6); RBC Distribution Width SD 45.9 fl (35.1-43.9); Red Blood Count 4.13 M/mm3 (4.6-6.2); White Blood Count 7.7 K/mm3 (4.4-11.0)
[2025-03-16 06:38] LABS: Troponin T High Sensitivity 27 ng/L (<=22)
[2025-03-16 07:23] LABS: FOLATES,SERUM (FOLIC ACID) 22.00 ng/mL (4.60-34.80)
--- NOTE | 2025-03-16 07:24 | PCM.CONS.C ---
Assessment & Plan Assessment/Plan (1) CHF exacerbation: QUALIFIERS: Heart failure type: unspecified Qualified Code(s): I50.9 - Heart failure, unspecified PLAN: He appears to have had a clinical exacerbation of his congestive heart failure however this appears to be mild. He is currently on no supplemental oxygen and is lying flat in bed. Will recommend we obtain an echocardiogram to reassess his ventricular function Continue IV diuretics for today Optimize beta-jared dose Consider SGLT2 inhibitor (2) Atrial fibrillation: QUALIFIERS: Atrial fibrillation type: unspecified Qualified Code(s): I48.91 - Unspecified atrial fibrillation PLAN: He is in sinus rhythm at this particular time. It is not clear to me whether or how long he was in atrial fibrillation however he appears to have an elevated [id number] score and therefore we will continue him on the Eliquis for now. Echocardiogram performed to assess his atrial sizes (3) Hypertension: QUALIFIERS: Hypertension type: primary hypertension Qualified Code(s): I10 - Essential (primary) hypertension PLAN: His blood pressure appears to be under good control at this time I would not recommend that we make any changes. HPI Consult Data Date of Consult: 03/16/25 HPI Narrative HPI Narrative: JAME GRAY, is a 59 M who presents as a transfer from [facility]. The patient was apparently on admission here recently and underwent lithotripsy and stent placement for kidney stones. He has a history of hypertension recently diagnosed congestive heart failure hyperlipidemia hypothyroidism, morbid obesity. He also has a history of diabetes with diabetic neuropathy. He presented to the outside hospital with the above symptomatology and requested to be transferred over here. He says that his symptoms had worsened he went to the emergency room in [facility] but his insurance was not covered for that admission and so he requested being here. He does remember that they said that he had been diagnosed with atrial fibrillation and was started on apixaban. He does have evidence of mild lower extremity edema. He denied any fever or chills or palpitations. At this particular time he appears to be stable when I saw him. Cardiology was asked to see him because he has an elevated natruretic peptide level, however he is lying flat on no supplemental oxygen. His physical exam is unremarkable other than mild pedal edema and his electrocardiogram demonstrates sinus rhythm with a right bundle branch block and a rate of 58 bpm. [facility] Medical History Diabetes Chronic pain Kidney stones Atrial fibrillation Congestive heart failure (CHF) Wears glasses Vertigo History of MRSA infection Cancer Neuropathy Rheumatoid arthritis Arthritis High cholesterol Excessive bleeding Dietary restriction History of diverticulitis Sleep apnea Non-smoker History of echocardiogram History of stress test Hypertension Cardiology follow-up encounter History of atrial fibrillation History of CHF (congestive heart failure) Hypothyroidism Depression Diaphragm dysfunction Dupuytren's fibromatosis Basal cell carcinoma (BCC) in situ of skin Insomnia Bursitis of right shoulder Pneumonia Diverticulitis Diabetes type 2, controlled Hypoglycemia Gout Hyperlipidemia LDL goal <130 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 Home Medications ?Medication ?Instructions ?Recorded ?Last Taken ?Type aspirin 81 mg tablet,delayed 81 mg PO DAILY 03/02/18 Unknown History release (Adult Low Dose Aspirin) magnesium oxide 500 mg capsule 500 mg PO DAILY 03/02/18 03/10/25 History prodigy #1 ea 03/02/18 Unknown History fluticasone propionate 0.05 % 1 applic topical QD-BID PRN 11/05/20 Unknown Rx topical cream (Cutivate) allergic reaction #60 grams albuterol sulfate 90 mcg/actuation 2 puff inhalation Q4H PRN sob #6.7 08/22/24 Unknown Rx aerosol inhaler (Ventolin HFA) grams amlodipine 5 mg tablet 5 mg PO DAILY #90 tabs 08/22/24 03/10/25 Rx bupropion HCl 100 mg tablet,12 hr 100 mg PO BID #180 tabs 08/22/24 03/10/25 Rx sustained-release celecoxib 200 mg capsule 200 mg PO BID #180 caps 08/22/24 02/19/25 Rx gabapentin 400 mg capsule 400 mg PO TID 90 days #270 caps 08/22/24 03/10/25 Rx glimepiride 4 mg tablet 4 mg PO QAM #90 tabs 08/22/24 03/10/25 Rx metformin 850 mg tablet 850 mg PO BID #180 tabs 08/22/24 03/10/25 Rx metoprolol tartrate 37.5 mg tablet 37.5 mg PO BID #180 tabs 08/22/24 03/10/25 Rx mirtazapine 15 mg tablet 7.5 mg (1/2 x 15 mg) PO QHS PRN 08/22/24 03/10/25 Rx sleep 90 days #90 tabs pioglitazone 45 mg tablet 45 mg PO DAILY #90 tabs 08/22/24 03/10/25 Rx sumatriptan succinate 50 mg tablet See Rx Instructions PO .COMPLEX 90 08/22/24 Unknown Rx days #20 tabs tramadol 50 mg tablet 50 mg PO TID neuropathic pain #90 08/22/24 03/10/25 Rx tabs levothyroxine 75 mcg tablet 75 mcg PO QDAY #90 tabs 11/03/24 03/10/25 Rx (Euthyrox) atorvastatin 40 mg tablet 40 mg PO QHS #90 tabs 11/27/24 03/10/25 Rx rimegepant 75 mg disintegrating 75 mg PO ONCE PRN migraine headache 11/27/24 Unknown History tablet (Nurtec ODT) rimegepant 75 mg disintegrating 75 mg PO ONCE PRN migraine 11/28/24 Unknown Rx tablet (Nurtec ODT) headache #7 tabs ammonium lactate 12 % topical cream 1 applic topical PRN CRACKED HANDS 03/06/25 Unknown History apixaban 5 mg tablet (Eliquis) 5 mg PO BID 03/06/25 03/07/25 History duloxetine 60 mg capsule,delayed 60 mg PO QHS 03/06/25 03/10/25 History release furosemide 40 mg tablet 40 mg PO DAILY 03/06/25 03/10/25 History ketorolac 10 mg tablet 10 mg PO 4X/DAY PRN PRN moderate 03/06/25 03/10/25 History pain meclizine 12.5 mg tablet 12.5 mg PO TID PRN vertigo 03/06/25 Unknown History tamsulosin 0.4 mg capsule 0.4 mg PO DAILY 03/06/25 03/10/25 History cephalexin 500 mg capsule 500 mg PO Q6H #28 caps 03/11/25 Unknown Rx oxycodone 5 mg tablet 5 mg PO Q6H PRN pain 7 days #20 03/11/25 Unknown Rx tabs phenazopyridine 100 mg tablet 100 mg PO TID #20 tabs 03/11/25 Unknown Rx (Pyridium) Allergy/AdvReac Type Severity Reaction Status Date / Time No Known Allergies Allergy Verified 03/11/25 08:02 Family History Other Esophageal cancer FH: ovarian cancer Surgical History History of surgery History of foot surgery History of colonoscopy Lump of skin of back History of colectomy History of appendectomy History of cholecystectomy Social History Smoking Status: Never smoker ROS Constitutional Constitutional: Denies fever(s) or weight loss Eyes Eyes: Reports systems reviewed and no addt'l complaints, except as documented ENT HEENT: Reports systems reviewed and no addt'l complaints, except as documented Cardiovascular Cardiovascular: Reports dyspnea on exertion; Denies chest pain at rest, chest pain with activity, dyspnea at rest, edema, palpitations or paroxysmal nocturnal dyspnea Respiratory/Chest Respiratory/Chest: Denies dyspnea on exertion, productive cough, shortness of breath at rest or shortness of breath with exertion Gastrointestinal Gastrointestinal: Denies change in bowel habits, nausea, vomiting or weight changes Genitourinary Genitourinary: Denies difficulty urinating Musculoskeletal Musculoskeletal: Denies joint stiffness or muscle weakness Integumentary Integumentary: Denies lesions Neurologic Neurologic: Denies dizziness or syncope Psychiatric Psychiatric: Denies anxiety Endocrine Endocrinology: Denies excessive sweating or fatigue Hematologic/Lymphatic Hematologic/Lymphatic: Denies anemia Allergic/Immunologic Allergic/Immunologic: Denies seasonal rhinorrhea Physical Exam Const alert, oriented x3 and no apparent distress Constitutional Narrative: Patient is morbidly obese but nontoxic in appearance. General Appearance: cooperative HEENT normocephalic, head/scalp atraumatic, hearing grossly normal bilaterally and moist oral mucous membranes Eyes PERRL, EOMs intact bilaterally and conjunctivae normal Neck no lymphadenopathy, supple and no JVD Resp normal respiratory effort, no retractions, no use of accessory muscles and clear to auscultation bilaterally Cardio regular rate and regular rhythm GI normal to inspection, nondistended, normoactive bowel sounds, soft to palpation, non-tender and non-distended GI Narrative: Morbidly obese. Extremity General Extremity: edema bilateral (trace) Skin Skin Narrative: Patient has no evidence of rash, abscess, wounds or jaundice. Neuro oriented x3, CN's II-XII intact bilaterally, moves all extremities and no focal motor deficits Sensorium / Orientation: awake, alert, oriented to person, oriented to place and oriented to time Speech: speech normal Psych affect normal Objective Data Vital Signs: Vital Signs Temp Pulse Resp BP Pulse Ox O2 Del Method O2 Flow Rate 96 F L 64 18 127/73 H 97 Nasal Cannula 2 03/16/25 05:26 03/16/25 05:26 03/16/25 05:26 03/16/25 05:26 03/16/25 05:26 03/16/25 05:35 03/16/25 05:35 Oxygen Flow Rate (L/min) 2 Oxygen Delivery Method Nasal Cannula Weight: 362 lb 14.094 oz Body Mass Index (BMI) 46.5 Lab / Micro Data 03/16/25 05:57 03/16/25 05:57 Labs: Laboratory Results - last 24 hr 03/16/25 05:57: WBC 7.7, RBC 4.13 L, Hgb 12.7 L, Hct 38.9 L, MCV 94.2 H, MCH 30.8, MCHC 32.6, RDW Std Deviation 45.9 H, RDW Coeff of Sarah 13.2, Plt Count 204, MPV 11.8, Immature Gran % (Auto) 0.400, Neut % (Auto) 56.7, Lymph % (Auto) 24.9, [place] % (Auto) 13.3 H, Eos % (Auto) 4.3, Baso % (Auto) 0.4, Absolute Neuts (auto) 4.4, Absolute Lymphs (auto) 1.93, Nucleated RBC % 0, Hemoglobin A1c 7.9 H, Troponin T High Sens 27 H, Serum Folate 22.00 Rhythm Strip Rhythm Strip: Sinus Rhythm Cardiology Labs/Tests 03/16/25 05:57: WBC 7.7, RBC 4.13 L, Hgb 12.7 L, Hct 38.9 L, MCV 94.2 H, MCH 30.8, MCHC 32.6, Plt Count 204, MPV 11.8, Immature Gran % (Auto) 0.400, Neut % (Auto) 56.7, Lymph % (Auto) 24.9, [place] % (Auto) 13.3 H, Eos % (Auto) 4.3, Baso % (Auto) 0.4, Absolute Neuts (auto) 4.4, Nucleated RBC % 0, Hemoglobin A1c 7.9 H Rhythm: EKG: ECHO: Stress Test: Cardiac Cath: PCI: CT Surgery: Holter monitor: EPS: PPM: CXR: Chest CT Scan: Radiography Diagnostic Testing: Radiology Impression Chest X-Ray 03/16/25 06:19 IMPRESSION: There is elevation of the right hemidiaphragm which can indicate paralysis. There is cardiomegaly with mild central vascular congestion. Reading Location: [facility] Risk Score for UA/STEMI Assesmment (YES = 1) Risk Stratification Applicable: No
--- NOTE | 2025-03-16 07:34 | ECHOCS_ITS ---
Reason For Study Reason For Study: AFIB Procedure This was a 2D Doppler, Color Flow transthoracic echocardiogram. The study was technically difficult. Contrast injection was performed. Exam performed portable in patient room. Left Ventricle Normal LV size. Moderate concentric left ventricular hypertrophy. The left ventricular ejection fraction is 65 %. No regional wall motion abnormalities noted. Right Ventricle Normal RV size. Normal systolic function. Atria Normal left atrium. Normal right atrium. Mitral Valve Normal mitral valve. Trivial mitral valve insufficiency. Tricuspid Valve Normal tricuspid valve. Mild-Moderate (1-2+) tricuspid valve insufficiency. Pulmonary artery systolic pressure is 40 mmHg. Aortic Valve Trisinus/trileaflet aortic valve. Mild (1+) eccentric aortic valve insufficiency. Pulmonic Valve Normal pulmonic valve. Great Vessels Normal sized aortic root. Pericardium/Pleural No pericardial effusion. Medication Diluted definity 2ml given slow IV push to enhance endocardial definition. MMode/2D Measurements & Calculations LVIDd: 4.8 cm IVSd: 1.6 cm LVOT diam: 2.0 cm LVIDs: 2.7 cm LVPWd: 1.6 cm FS: 42.6 % LVOT area: 3.1 cm2 Ao root diam: 3.9 cm LAV(MOD-bp): 34.2 ml LVAd ap4: 41.5 cm2 LAV(MOD-bp) Indexed: 12.2 ml/m2 LVLd ap4: 8.9 cm LAV(MOD-sp2): 24.6 ml EDV(MOD-sp4): 158.1 ml LAV(MOD-sp4): 43.0 ml EDV(sp4-el): 164.2 ml LVAs ap4: 16.1 cm2 LVLs ap4: 6.4 cm ESV(MOD-sp4): 33.5 ml ESV(sp4-el): 34.2 ml EF(MOD-sp4): 78.8 % EF(sp4-el): 79.2 % SV(MOD-sp4): 124.6 ml SV(sp4-el): 130.0 ml LA A4 area: 17.4 cm2 SI(MOD-sp4): 44.6 ml/m2 LA dimension(2D): 5.2 cm RA A4 area: 12.6 cm2 Time Measurements MV dec time: 0.30 sec Doppler Measurements & Calculations MV E max alfonso: 103.9 cm/sec Lat Peak E' Alfonso: 11.6 cm/sec Med Peak E' Alfonso: 5.4 cm/sec MV A max alfonso: 87.6 cm/sec E/E' lat: 9.0 E/E' med: 19.2 MV E/A: 1.2 MV V2 max: 110.3 cm/sec MV dec slope: 348.4 cm/sec2 Ao V2 max: 200.0 cm/sec MV max P.9 mmHg Ao max P.1 mmHg MV V2 mean: 74.7 cm/sec Ao V2 mean: 132.5 cm/sec MV mean P.4 mmHg Ao mean P.2 mmHg MV V2 VTI: 44.1 cm Ao V2 VTI: 43.0 cm MVA(VTI): 2.6 cm2 AV (velocity ratio): 0.87 WHITNEY(I,D): 2.7 cm2 WHITNEY(V,D): 2.4 cm2 AI max alfonso: 412.9 cm/sec LV V1 max: 157.6 cm/sec SV(LVOT): 114.9 ml AI max P.2 mmHg LV V1 max P.9 mmHg LV V1 mean P.8 mmHg AI dec slope: 208.9 cm/sec2 LV V1 mean: 125.7 cm/sec AI P1/2t: 578.9 msec LV V1 VTI: 37.6 cm PA V2 max: 123.1 cm/sec TR max alfonso: 302.1 cm/sec PA V2 mean: 94.2 cm/sec TR max P.5 mmHg ECHO/Echo Complete W/ Contrast Interpretation Summary The left ventricular ejection fraction is 65 %. Normal LV size. Moderate concentric left ventricular hypertrophy. Mild (1+) eccentric aortic valve insufficiency. Contrast injection was performed. Ordering Physician: Juvenal Cedillo Referring Physician: GRIFFIN CALVERT Performed By: Wen Marie RCS
[2025-03-16 07:48] LABS: AST(SGOT) 15 U/L (<=37); Alanine Aminotransfer ALT/SGPT 9 U/L (<=46); Albumin, Serum 3.5 g/dL (3.5-5.0); Alkaline Phosphatase 82 U/L (40-129); Anion Gap 12 (5-15); BUN 29 mg/dL (4-19); BUN/Creat Ratio 18.0 RATIO (10-20); Calcium,Total 9.1 mg/dL (7.6-11.0); Carbon Dioxide 29.4 mmol/L (21.0-32.0); Chloride 99 mmol/L (98-108); Cholesterol 125 mg/dL (<=200); Estimated Creatinine Clearance 80.46 ml/min (50-250); Globulin 2.9 g/dL (2.2-4.2); Glucose 161 mg/dL (70-99); Low Density Lipoprotein Calc. 59 mg/dL; Magnesium 1.7 mg/dL (1.5-2.2); Potassium 4.4 mmol/L (3.3-5.1); Pro- Brain NATRIURETIC PEPTIDE 966 pg/mL (<=900); Triglycerides 135 mg/dL; Very Low Density Lipoprotein 27 mg/dL (5-40); Vitamin B12 717 pg/mL (180-914); cholesterol:hdl ratio screen 3.23
[2025-03-16 08:20] LABS: Troponin T High Sens 2 HR 26 ng/L (<=22)
--- NOTE | 2025-03-16 08:21 | PCA ---
MEDICAL RECORDS REQUESTED FROM [facility] FROM MOST RECENT ADMIT
[2025-03-16] MEDS: Potassium Chloride Oral Tablet 20 MEQ PO (08:25)
[2025-03-16 09:19] LABS: Color, Urine Yellow (Yellow); Glucose, Dipstick Normal (Normal); Ketone-Dipstick Negative (Negative); Leukocyte Esterase-Dipstick 100 /ul (Negative); Nitrite-Dipstick Positive (Negative); Occult Blood-Urine 250 /ul (Negative); Protein-Dipstick 30 mg/dl (Negative); Specific Gravity, Urine 1.010 (1.002-1.030); Urine Bilirubin Dipstick Negative (Negative)
--- NOTE | 2025-03-16 09:19 | CASEMGMT ---
Social Work SW assisted the patient with completing a LW. Patient reported he has a POA and will provide the hospital with a copy. ELLIOT Carlos
[2025-03-16 09:37] LABS: Red Blood Cells-Urine 50-100 SEEN /hpf (0-5)
[2025-03-16 09:38] LABS: Squamous Epithelial Cells - UA 0-5 SEEN /hpf (0-5)
[2025-03-16 09:39] LABS: Mucous, Urine RARE /hpf (<or=2+)
[2025-03-16] MEDS: APIXABAN 5 MG TABLET PO ×2 (10:28→21:29)
[2025-03-16] MEDS: Magnesium Chloride 64 MG Delay Rel.Tablet 128 MG PO (10:28)
[2025-03-16] MEDS: buPROPion (SR) 100 MG TABLET.SA PO ×2 (10:28→21:31)
[2025-03-16 10:57] LABS: Troponin T High Sens 4 HR 28 ng/L (<=22)
--- NOTE | 2025-03-16 13:12 | CASEMGMT ---
Social Work The provided a copy of the POA. A copy was put in the patients chart. ELLIOT Carlos
--- NOTE | 2025-03-16 15:01 | CASEMGMT ---
SJ BANUELOS Assessment: Face to Face with pt for initial transition planning/care coordination assessment. SJ BANUELOS introduced self and role at [facility], pt voices understanding and consents to assessment. Pt is A&O x4 and answers all questions appropriately at this time. Pt sitting in bed in no distress, at bedside. Pt agreeable to DC planning assessment with present. Care providers, pharmacy, and demographics verified/updated. Strata: 1 Admitting Dx: AE CHF with Resp. Insufficiency PCP: Calos Specialists: Denies Preferred Pharmacy: [facility] Insurance: Brandon COLLINS Prescription Benefit: yes LNOK: , Jennifer Living Arrangements: Pt lives with in a 1 level home with 2 steps to enter. ADLs: Pt states I with ADls and IADLs. Transportation: Pt drives self and denies concerns with transportation. DME: rollater, walker, cane, crutches, shower chair - has these items available but does not use them. HHC/SNF: Denies Hx of. 6 clicks = 24. Pt states no concerns with going home at time of dc. SJ BANUELOS discussed possible need for O2 at time of DC, provided local list of DME providers. Pt chose [facility] as provider of choice. Pt states no further concerns/needs. CM to follow. Advised pt to ask CM if any further question/concerns/needs arise, voices understanding. Pt Goal: Home Plan: Home with family support, follow for O2 orders. Freddie GUSTAFSON CM
--- NOTE | 2025-03-16 19:23 | PN.HOSP_ITS ---
Reason for Visit Chief Complaint: SOB. Subjective Subjective Patient was seen and examined today, he was seen in consultation by cardiology today, he had an echocardiogram performed which showed a normal EF with some evidence of mild pulmonary hypertension. Patient's blood pressure was slightly low this afternoon and his evening Lasix dosage was held. Objective Data Objective Data Vital Signs: Vital Signs Temp Pulse Resp BP Pulse Ox O2 Del Method O2 Flow Rate 97 F L 64 18 91/59 L 94 Nasal Cannula 2 03/16/25 17:30 03/16/25 17:30 03/16/25 17:30 03/16/25 17:30 03/16/25 17:30 03/16/25 17:30 03/16/25 17:30 Oxygen Flow Rate (L/min) 2 Oxygen Delivery Method Nasal Cannula Weight: 164.6 kg Body Mass Index (BMI) 46.5 Intake & Output: Intake and Output for Last 24 Hours 03/14/25 03/15/25 03/16/25 23:59 23:59 23:59 Intake Total 700 / 700 Output Total 1075 / 1075 Balance -375 / -375 Lab / Micro Data 03/16/25 05:57 03/16/25 05:57 Labs: Laboratory Results - last 24 hr 03/16/25 05:57: WBC 7.7, RBC 4.13 L, Hgb 12.7 L, Hct 38.9 L, MCV 94.2 H, MCH 30.8, MCHC 32.6, RDW Std Deviation 45.9 H, RDW Coeff of Sarah 13.2, Plt Count 204, MPV 11.8, Immature Gran % (Auto) 0.400, Neut % (Auto) 56.7, Lymph % (Auto) 24.9, [place] % (Auto) 13.3 H, Eos % (Auto) 4.3, Baso % (Auto) 0.4, Absolute Neuts (auto) 4.4, Absolute Lymphs (auto) 1.93, Nucleated RBC % 0, Sodium 140, Potassium 4.4, Chloride 99, Carbon Dioxide 29.4, Anion Gap 12, BUN 29 H, Creatinine 1.63 H, Estim Creat Clear Calc 80.46, Est GFR (MDRD) Non-Af 49 L, BUN/Creatinine Ratio 18.0, Glucose 161 H, Hemoglobin A1c 7.9 H, Calcium 9.1, Phosphorus 5.3 H, Magnesium 1.7, Total Bilirubin 0.35, AST 15, ALT 9, Alkaline Phosphatase 82, T roponin T High Sens 27 H, NT pro BNP II 966 H, Total Protein 6.5, Albumin 3.5, Globulin 2.9, Albumin/Globulin Ratio 1.2, Triglycerides 135, Cholesterol 125, LDL Cholesterol, Calc 59, VLDL Cholesterol 27, HDL Cholesterol 39 L, Cholesterol/HDL Ratio 3.23, Vitamin B12 717, Serum Folate 22.00, TSH 1.490 03/16/25 07:47: Troponin T Hi Sens 2 Hr 26 H 03/16/25 09:06: Urine Color Yellow, Urine Clarity Sl. Cloudy, Urine pH 6.0, Ur Specific [place] 1.010, Urine Protein 30 H, Urine Glucose (UA) Normal, Urine Ketones Negative, Urine Occult Blood 250 H, Urine Nitrite Positive H, Urine Bilirubin Negative, Urine Urobilinogen 1 H, Ur Leukocyte Esterase 100 H, Urine RBC 50-100 SEEN, Urine WBC 10-25 SEEN, Ur Squamous Epith Cells 0-5 SEEN, Urine Bacteria 0 SEEN, Urine Mucus RARE 03/16/25 10:10: Troponin T Hi Sens 4Hr 28 H 03/16/25 11:53: POC Glucose 183 H Radiography Diagnostic Testing: Radiology Impression Chest X-Ray 03/16/25 06:19 IMPRESSION: There is elevation of the right hemidiaphragm which can indicate paralysis. There is cardiomegaly with mild central vascular congestion. Reading [facility] Echocardiogram 03/16/25 07:34 Interpretation Summary The left ventricular ejection fraction is 65 %. Normal LV size. Moderate concentric left ventricular hypertrophy. Mild (1+) eccentric aortic valve insufficiency. Contrast injection was performed. Ordering Physician: Juvenal Cedillo Referring Physician: GRIFFIN CALVERT Performed By: Wen Marie RCS Rhythm Strip Rhythm Strip: Sinus Rhythm Physical Exam Const alert, oriented x3, no apparent distress and healthy appearing General Appearance: cooperative, well kempt and well developed Orientation / Consciousness: awake, oriented to person, oriented to place and oriented to time HEENT normocephalic and moist oral mucous membranes Eyes PERRL, EOMs intact bilaterally and conjunctivae normal Neck supple, no JVD, thyroid normal and no carotid bruits General: trachea midline Resp normal respiratory effort, no retractions, no use of accessory muscles and clear to auscultation bilaterally Auscultation: Negative for rales, rhonchi or wheezes Cardio regular rate, regular rhythm, no murmurs, no rub and no gallops GI normal to inspection, nondistended, normoactive bowel sounds, soft to palpation, non-tender and non-distended Extremity no clubbing, cyanosis or edema Skin no rashes or lesions noted General Skin Exam: no breakdown Neuro oriented x3, CN's II-XII intact bilaterally, moves all extremities, no focal motor deficits and no sensory deficits noted Sensorium / Orientation: awake and alert Speech: speech normal Psych affect normal Assessment & Plan Assessment/Plan (1) CHF exacerbation: QUALIFIERS: Heart failure type: unspecified Qualified Code(s): I 50.9 - Heart failure, unspecified PLAN: Plan 1. Exacerbation of diastolic congestive heart failure-patient will remain on diuretics per cardiology, echocardiogram showed a normal EF. #2 mild pulmonary hypertension-complicates care, management, recovery, and prognosis #3 type 2 diabetes-patient's blood sugars will be monitored, sliding scale insulin will be administered as needed #4 paroxysmal atrial fibrillation-patient is currently on Eliquis and metoprolol #5 hypothyroidism-patient is on Synthroid #6 chronic depression-patient is on Cymbalta and Wellbutrin #7 hyperlipidemia-patient is on atorvastatin Total clinical time spent by myself addressing the patient's medical issues, reviewing patient data, and collaborating with patient's care team: 35 minutes Charges/Coding Visit Charges Inpatient E&M: 62449 Subs Hosp L2
[2025-03-17 03:24] VITALS: BMI 46.9
[2025-03-17 03:30] VITALS: BP 121/73; PULSE 66; RESP 16; TEMP 36.6; O2SAT 94
--- NOTE | 2025-03-17 07:33 | PN.CARD_ITS ---
Subjective Subjective Patient seen and evaluated. Appears to be doing much better at this time. Objective Data Vital Signs: Vital Signs Temp Pulse Resp BP Pulse Ox O2 Del Method O2 Flow Rate 97.9 F 66 16 121/73 H 94 Nasal Cannula 2 03/17/25 03:30 03/17/25 03:30 03/17/25 03:30 03/17/25 03:30 03/17/25 03:30 03/17/25 03:30 03/17/25 03:30 Oxygen Flow Rate (L/min) 2 Oxygen Delivery Method Nasal Cannula Weight: 365 lb 8.423 oz Body Mass Index (BMI) 46.9 Intake & Output: Intake and Output for Last 24 Hours 03/15/25 03/16/25 03/17/25 23:59 23:59 23:59 Intake Total 700 / 700 Output Total 1075 / 1725 1949 Balance -375 / -1025 -1949 Lab / Micro Data 03/16/25 05:57 03/16/25 05:57 Labs: Laboratory Results - last 24 hr 03/16/25 05:57: Sodium 140, Potassium 4.4, Chloride 99, Carbon Dioxide 29.4, Anion Gap 12, BUN 29 H, Creatinine 1.63 H, Estim Creat Clear Calc 80.46, Est GFR (MDRD) Non-Af 49 L, BUN/Creatinine Ratio 18.0, Glucose 161 H, Calcium 9.1, P hosphorus 5.3 H, Magnesium 1.7, Total Bilirubin 0.35, AST 15, ALT 9, Alkaline Phosphatase 82, NT pro BNP II 966 H, Total Protein 6.5, Albumin 3.5, Globulin 2.9, Albumin/Globulin Ratio 1.2, Triglycerides 135, Cholesterol 125, LDL Cholesterol, Calc 59, VLDL Cholesterol 27, HDL Cholesterol 39 L, Cholesterol/HDL Ratio 3.23, Vitamin B12 717, TSH 1.490 03/16/25 06:30: POC Glucose 147 H 03/16/25 07:47: Troponin T Hi Sens 2 Hr 26 H 03/16/25 09:06: Urine Color Yellow, Urine Clarity Sl. Cloudy, Urine pH 6.0, Ur Specific [place] 1.010, Urine Protein 30 H, Urine Glucose (UA) Normal, Urine Ketones Negative, Urine Occult Blood 250 H, Urine Nitrite Positive H, Urine Bilirubin Negative, Urine Urobilinogen 1 H, Ur Leukocyte Esterase 100 H, Urine RBC 50-100 SEEN, Urine WBC 10-25 SEEN, Ur Squamous Epith Cells 0-5 SEEN, Urine Bacteria 0 SEEN, Urine Mucus RARE 03/16/25 10:10: Troponin T Hi Sens 4Hr 28 H 03/16/25 11:53: POC Glucose 183 H 03/16/25 16:47: POC Glucose 218 H 03/16/25 21:29: POC Glucose 118 H 03/17/25 06:18: POC Glucose 150 H Rhythm Strip Rhythm Strip: Sinus Rhythm Cardiology Labs/Tests 03/16/25 05:57: Sodium 140, Potassium 4.4, Chloride 99, Carbon Dioxide 29.4, Anion Gap 12, BUN 29 H, Creatinine 1.63 H, Est GFR (MDRD) Non-Af 49 L, BUN/Creatinine Ratio 18.0, Glucose 161 H, Calcium 9.1, Phosphorus 5.3 H, Magnesium 1.7, Total Bilirubin 0.35, Triglycerides 135, Cholesterol 125, VLDL Cholesterol 27, HDL Cholesterol 39 L, Cholesterol/HDL Ratio 3.23 03/16/25 09:06: Urine Color Yellow, Urine Clarity Sl. Cloudy, Urine pH 6.0, Ur Specific [place] 1.010, Urine Protein 30 H, Urine Glucose (UA) Normal, Urine Ketones Negative, Urine Occult Blood 250 H, Urine Nitrite Positive H, Urine Bilirubin Negative, Urine Urobilinogen 1 H, Ur Leukocyte Esterase 100 H, Urine RBC 50-100 SEEN, Urine WBC 10-25 SEEN Rhythm: EKG: ECHO: Stress Test: Cardiac Cath: PCI: CT Surgery: Holter monitor: EPS: PPM: CXR: Chest CT Scan: Radiography Diagnostic Testing: Radiology Impression Echocardiogram 03/16/25 07:34 Interpretation Summary The left ventricular ejection fraction is 65 %. Normal LV size. Moderate concentric left ventricular hypertrophy. Mild (1+) eccentric aortic valve insufficiency. Contrast injection was performed. Ordering Physician: Juvenal Cedillo Referring Physician: GRIFFIN CALVERT Performed By: Wen Marie RCS Physical Exam Const alert, oriented x3 and no apparent distress Constitutional Narrative: Patient is morbidly obese but nontoxic in appearance. General Appearance: cooperative HEENT normocephalic, head/scalp atraumatic, hearing grossly normal bilaterally and moist oral mucous membranes Eyes PERRL, EOMs intact bilaterally and conjunctivae normal Neck no lymphadenopathy, supple and no JVD Resp normal respiratory effort, no retractions, no use of accessory muscles and clear to auscultation bilaterally Cardio regular rate and regular rhythm GI normal to inspection, nondistended, normoactive bowel sounds, soft to palpation, non-tender and non-distended GI Narrative: Morbidly obese. Extremity General Extremity: edema bilateral (trace) Skin Skin Narrative: Patient has no evidence of rash, abscess, wounds or jaundice. Neuro oriented x3, CN's II-XII intact bilaterally, moves all extremities and no focal motor deficits Sensorium / Orientation: awake, alert, oriented to person, oriented to place and oriented to time Speech: speech normal Psych affect normal Assessment & Plan Assessment/Plan (1) CHF exacerbation: QUALIFIERS: Heart failure type: unspecified Qualified Code(s): I 50.9 - Heart failure, unspecified PLAN: He appears to have had a clinical exacerbation of his congestive heart failure however this appears to be mild. He is currently on no supplemental oxygen and is lying flat in bed. * Echocardiogram did demonstrate preserved left ventricular function. * Continue diuretics as p.o. today * Optimize beta-jared dose * Consider SGLT2 inhibitor (2) Atrial fibrillation: QUALIFIERS: Atrial fibrillation type: unspecified Qualified Code(s): I48.91 - Unspecified atrial fibrillation PLAN: He is in sinus rhythm at this particular time. It is not clear to me whether or how long he was in atrial fibrillation however he appears to have an elevated [id number] score and therefore we will continue him on the Eliquis for now. Echocardiogram performed demonstrated preserved left ventricular ejection fraction. (3) Hypertension: QUALIFIERS: Hypertension type: primary hypertension Qualified Code(s): I10 - Essential (primary) hypertension PLAN: His blood pressure appears to be under good control at this time I would not recommend that we make any changes.
[2025-03-17 08:51] VITALS: BP 150/73; PULSE 71; RESP 16; TEMP 36.3; O2SAT 94
[2025-03-17] MEDS: APIXABAN 5 MG TABLET PO (08:54)
[2025-03-17] MEDS: Magnesium Chloride 64 MG Delay Rel.Tablet 128 MG PO (08:55)
[2025-03-17 08:56] VITALS: PULSE 71
[2025-03-17] MEDS: buPROPion (SR) 100 MG TABLET.SA PO (08:57)
[2025-03-17 11:43] VITALS: O2SAT 93; O2SAT 94
--- NOTE | 2025-03-17 13:09 | PCM.DC ---
Discharge Instructions DC O2, CPAP, BIPAP needs Home O2 Discharge instructions: No Dressing / Incision Discharge Activity: Return to Normal Activity Weight Bearing Status: Full weight bearing Follow Up Care Test Results: Test results from this visit will be discussed in further detail at your follow-up appointment, if applicable. Discharge Plan Admission Admit Date/Time: 03/16/25 05:37 Primary Reason for Your Visit: Diastolic congestive heart failure, mild pulmonary hypertension Attending Provider: Herbert Mane Primary Care Provider: Jenny Live NP Consulting Providers: Kindra Bach; Lisa Gruber; Tray Herring; Mana Corcoran; Kassidy Serrano; Artie Marquez; Leonard Ford; Juvenal Cedillo; Andrew Zuluaga; Brooke Slater; Jv Manuel; Yesy Locke; Anselmo Fontaine; Richard De La Torre; Elbert Shaffer; Macario Rodriguez NP; Nkechi Washington PA; Ernst Parker; Andrew Prado Discharge Orders/Prescriptions Prescriptions: New spironolactone 25 mg Tablet 25 mg PO DAILY Qty: 30 0RF Continued magnesium oxide 500 mg capsule 500 mg PO DAILY (DME) prodigy Qty: 1 Dose Instruction: As directed Rx Instructions: As directed aspirin [Adult Low Dose Aspirin] 81 mg tablet,delayed release (DR/EC) 81 mg PO DAILY Patient Comments: LAST DOSE 02/19/25 FOR SURGERY 03/11/25 fluticasone propionate [Cutivate] 0.05 % cream 1 applic TOPICAL QD-BID PRN (Reason: allergic reaction) Qty: 60 12RF albuterol sulfate [Ventolin HFA] 90 mcg/actuation HFA aerosol inhaler 2 puff inhalation Q4H PRN (Reason: sob) Qty: 6.7 3RF amlodipine 5 mg tablet 5 mg PO DAILY Qty: 90 3RF bupropion HCl 100 mg tablet sustained-release 12 hr 100 mg PO BID Qty: 180 3RF celecoxib 200 mg capsule 200 mg PO BID Qty: 180 3RF gabapentin 400 mg capsule 400 mg PO TID 90 Days Qty: 270 3RF glimepiride 4 mg tablet 4 mg PO QAM Qty: 90 3RF metformin 850 mg tablet 850 mg PO BID Qty: 180 3RF metoprolol tartrate 37.5 mg tablet 37.5 mg PO BID Qty: 180 3RF mirtazapine 15 mg tablet 7.5 mg PO QHS PRN (Reason: sleep) 90 Days Qty: 90 3RF pioglitazone 45 mg tablet 45 mg PO DAILY Qty: 90 3RF sumatriptan succinate 50 mg tablet See Rx Instructions PO .COMPLEX 90 Days Qty: 20 3RF Dose Instruction: take 1 tab at onset of headache; if no relief may repeat 1 tab in 2hr; max = 4 tabs/day (24hr) PO Rx Instructions: take 1 tab at onset of headache; if no relief may repeat 1 tab in 2hr; max = 4 tabs/day (24hr) PO tramadol 50 mg tablet 50 mg PO TID Qty: 90 5RF atorvastatin 40 mg tablet 40 mg PO QHS Qty: 90 3RF Nurtec ODT 75 mg tablet,disintegrating 75 mg PO ONCE PRN (Reason: migraine headache) Rx Instructions: as a single dose Nurtec ODT 75 mg tablet,disintegrating 75 mg PO ONCE PRN (Reason: migraine headache) Qty: 7 12RF Rx Instructions: as a single dose furosemide 40 mg tablet 40 mg PO DAILY ketorolac 10 mg tablet 10 mg PO 4X/DAY PRN PRN (Reason: moderate pain) tamsulosin 0.4 mg capsule 0.4 mg PO DAILY meclizine 12.5 mg tablet 12.5 mg PO TID PRN (Reason: vertigo) ammonium lactate 12 % cream 1 applic TOPICAL PRN duloxetine 60 mg capsule,delayed release(DR/EC) 60 mg PO QHS Eliquis 5 mg tablet 5 mg PO BID Patient Comments: LAST DOSE TO BE 03/07/25 cephalexin 500 mg capsule 500 mg PO Q6H Qty: 28 0RF phenazopyridine [Pyridium] 100 mg tablet 100 mg PO TID Qty: 20 0RF oxycodone 5 mg tablet 5 mg PO Q6H PRN (Reason: pain) 7 Days Qty: 20 0RF levothyroxine [Euthyrox] 75 mcg tablet 75 mcg PO QDAY Qty: 90 3RF Referrals / Follow Up: Jenny Live NP, SONOSCOPE OPERATOR-C [Primary Care Provider, Family Practice] - Within 2 Weeks Nkechi [place], PA [Med Staff - [facility] Prof, Cardiology] - See Referral Note Referral Note: in 3 weeks Disposition Disposition (needs filled in before D/C Order can be placed): Home, Self Care
--- NOTE | 2025-03-17 13:21 | DS.PCM_ITS ---
Providers Date of Admission: 03/16/25 Date of Discharge: 03/17/25 Primary Care Physician: DAVID Marina Consultations 03/16/25 05:34 Consult: Cardiology Routine Consulting Provider: Stacey Vasquez Reason for Consult: AE CHF EMERGENT Consult: No MD Notified: Yes Date Notified: 03/16/25 Time Notified: 06:46 Method of Notification: Text Method of Consult:: In-Person Reason For Visit: AE CHF WITH RESPIRATORY INSUFFCIENCY Diagnosis Discharge Diagnosis (1) CHF exacerbation: Status: Chronic Code(s): I50.9 - Heart failure, unspecified Qualifiers: Heart failure type: unspecified Qualified Code(s): I50.9 - Heart failure, unspecified (2) Atrial fibrillation: Status: Inactive Code(s): I48.91 - Unspecified atrial fibrillation Qualifiers: Atrial fibrillation type: unspecified Qualified Code(s): I48.91 - Unspecified atrial fibrillation (3) Hypertension: Status: Inactive Code(s): I10 - Essential (primary) hypertension Qualifiers: Hypertension type: primary hypertension Qualified Code(s): I10 - Essential (primary) hypertension Plan 1. Orthostatic hypotension secondary to acute anemia from upper GI bleed (gastric ulcers)-patient's hemoglobin will be rechecked tomorrow morning, continue Protonix and Carafate #2 acute anemia secondary to acute upper GI bleed secondary to gastric ulcers- CBC will be rechecked tomorrow #3 paroxysmal [id number] will continue metoprolol, he is off Eliquis #4 gastric ulcers secondary to use of nonsteroidal anti-inflammatory agents- patient has been cautioned to remain off these medications #5 bacteriuria #6 hypothyroidism-patient is on Synthroid #7 chronic diastolic congestive heart failure-patient is stable at this time #8 gastric ulcers Medications at Discharge Home Medications prodigy #1 ea 03/02/18 fluticasone propionate 0.05 % topical cream (Cutivate) 1 applic topical QD-BID PRN allergic reaction #60 grams 11/05/20 albuterol sulfate 90 mcg/actuation aerosol inhaler (Ventolin HFA) 2 puff inhalation Q4H PRN sob #6.7 grams 08/22/24 bupropion HCl 100 mg tablet,12 hr sustained-release 100 mg PO BID #180 tabs 08/22/24 gabapentin 400 mg capsule 400 mg PO TID 90 days #270 caps 08/22/24 glimepiride 4 mg tablet 4 mg PO QAM #90 tabs 08/22/24 metformin 850 mg tablet 850 mg PO BID #180 tabs 08/22/24 metoprolol tartrate 37.5 mg tablet 37.5 mg PO BID #180 tabs 08/22/24 mirtazapine 15 mg tablet 7.5 mg (1/2 x 15 mg) PO QHS PRN sleep 90 days #90 tabs 08/22/24 pioglitazone 45 mg tablet 45 mg PO DAILY #90 tabs 08/22/24 tramadol 50 mg tablet 50 mg PO TID neuropathic pain #90 tabs 08/22/24 levothyroxine 75 mcg tablet (Euthyrox) 75 mcg PO QDAY #90 tabs 11/03/24 atorvastatin 40 mg tablet 40 mg PO QHS #90 tabs 11/27/24 ammonium lactate 12 % topical cream 1 applic topical PRN CRACKED HANDS 03/06/25 duloxetine 60 mg capsule,delayed release 60 mg PO QHS depression 03/06/25 tamsulosin 0.4 mg capsule 0.4 mg PO DAILY enlarged prostate 03/06/25 oxycodone 5 mg tablet 5 mg PO Q6H PRN pain 7 days #20 tabs 03/11/25 apixaban 5 mg tablet (Eliquis) 5 mg PO BID Afib 03/18/25 Held on 03/20/25. Instructions: Resume on 04/03/25. Hold your Eliquis for 2 weeks, then resume it at 5 mg twice a day furosemide 40 mg tablet 40 mg PO .qd CHF 03/18/25 magnesium oxide 250 mg PO DAILY supplement 03/18/25 multivitamin 1 tab PO DAILY supplement 03/18/25 ondansetron 4 mg disintegrating tablet 4 mg PO Q8H PRN PRN nausea 03/18/25 pantoprazole 40 mg tablet,delayed release (Protonix) 40 mg PO BID #60 tabs 03/20/25 spironolactone 25 mg tablet 12.5 mg (1/2 x 25 mg) PO DAILY #30 tabs 03/20/25 sucralfate 1 gram tablet 1 g PO TID #90 tabs 03/20/25 Hospital Course Operations None Procedures EGD Summary of Care Provided Minutes Spent on Discharge: 32 Hospital Course: This 59-year-old white male was seen in the emergency room at [facility] with complaints of lightheadedness and near syncope. He states the symptoms occur when he stands up, symptoms improved when he sits down. He also complained of several episodes of actual syncope. Patient was recently released from the hospital here after treatment for congestive heart failure. Workup in the emergency room showed 3+ bacteria in his urinalysis with elevated white cells and nitrites, hemoglobin was 11.1 which had declined from 12.7 on 03/16/2025. Stool for occult blood was positive. Patient was admitted to PCU and labs were monitored, he was seen in consultation by gastroenterology and underwent an EGD which showed gastric ulcers which were nonbleeding. On 03/20/2025, patient was seen and examined: On examination he appeared in good health and spirits. Vital signs as documented. Skin warm and dry and without overt rashes. Neck without JVD, neck was supple, trachea midline, thyroid was normal. Lungs clear bilaterally, normal air movement was noted. Heart exam notable for regular rhythm, normal sounds and absence of murmurs, rubs or gallops. Abdomen unremarkable and without evidence of organomegaly, masses, or abdominal aortic enlargement. Bowel sounds are present, abdomen is not distended. Extremities nonedematous, no cyanosis was noted, no clubbing was noted. Neuro: Cranial nerves II through XII are grossly intact, no focal motor deficits were noted, sensation to light touch and pinprick intact, motor exam 5/5 throughout. Psych: Patient is alert and oriented x3, he does not appear anxious or depressed, he does not appear agitated. Patient was discharged home in stable condition on 03/20/2025. Weight / BMI Weight Weight: 165.8 kg Body Mass Index (BMI) 46.9 ABG / Lab / Microbiology Data 03/16/25 05:57 03/16/25 05:57 Laboratory: Laboratory Results - last 24 hr 03/16/25 06:30: POC Glucose 147 H 03/16/25 16:47: POC Glucose 218 H 03/16/25 21:29: POC Glucose 118 H 03/17/25 06:18: POC Glucose 150 H Radiography Diagnostic Testing: Radiology Impression Echocardiogram 03/16/25 07:34 Interpretation Summary The left ventricular ejection fraction is 65 %. Normal LV size. Moderate concentric left ventricular hypertrophy. Mild (1+) eccentric aortic valve insufficiency. Contrast injection was performed. Ordering Physician: Juvenal Cedillo Referring Physician: GRIFFIN CALVERT Performed By: Wen Marie RCS D/C Instructions Weight Bearing Status: Full weight bearing DC O2, CPAP, BIPAP Needs Home O2 Discharge instructions: No Meaningful Use Info Meaningful Use Meaningful Use Diagnoses (Choose all that apply): None applicable Discharge Plan Admission Admit Date/Time: 03/16/25 05:37 Primary Reason for Your Visit: Diastolic congestive heart failure, mild pulmonary hypertension Attending Provider: Herbert Mane Primary Care Provider: Griffin Calvert NP Consulting Providers: Kindra Bach; Lisa Gruber; Tray Herring; Mana Corcoran; Kassidy Serrano; Artie Marquez; Leonard Ford; Juvenal Cedillo; Andrew Zuluaga; Brooke Slater; Jv Manuel; Yesy Locke; Anselmo Fontaine; Richard De La Torre; Elbert Shaffer; Macario Rodriguez SCHEDULING COORDINATOR; Nkechi Washington; Ernst Parker; Andrew Prado Discharge Orders/Prescriptions Prescriptions: Continued (DME) prodigy Qty: 1 Dose Instruction: As directed Rx Instructions: As directed fluticasone propionate [Cutivate] 0.05 % cream 1 applic TOPICAL QD-BID PRN (Reason: allergic reaction) Qty: 60 12RF albuterol sulfate [Ventolin HFA] 90 mcg/actuation HFA aerosol inhaler 2 puff inhalation Q4H PRN (Reason: sob) Qty: 6.7 3RF bupropion HCl 100 mg tablet sustained-release 12 hr 100 mg PO BID Qty: 180 3RF gabapentin 400 mg capsule 400 mg PO TID 90 Days Qty: 270 3RF glimepiride 4 mg tablet 4 mg PO QAM Qty: 90 3RF metformin 850 mg tablet 850 mg PO BID Qty: 180 3RF metoprolol tartrate 37.5 mg tablet 37.5 mg PO BID Qty: 180 3RF mirtazapine 15 mg tablet 7.5 mg PO QHS PRN (Reason: sleep) 90 Days Qty: 90 3RF pioglitazone 45 mg tablet 45 mg PO DAILY Qty: 90 3RF tramadol 50 mg tablet 50 mg PO TID Qty: 90 5RF atorvastatin 40 mg tablet 40 mg PO QHS Qty: 90 3RF tamsulosin 0.4 mg capsule 0.4 mg PO DAILY ammonium lactate 12 % cream 1 applic TOPICAL PRN duloxetine 60 mg capsule,delayed release(DR/EC) 60 mg PO QHS oxycodone 5 mg tablet 5 mg PO Q6H PRN (Reason: pain) 7 Days Qty: 20 0RF levothyroxine [Euthyrox] 75 mcg tablet 75 mcg PO QDAY Qty: 90 3RF No Action magnesium oxide 250 mg magnesium tablet 250 mg PO DAILY ondansetron 4 mg tablet,disintegrating 4 mg PO Q8H PRN PRN (Reason: nausea) multivitamin Tablet 1 tab PO DAILY Eliquis 5 mg tablet 5 mg PO BID furosemide 40 mg tablet 40 mg PO .qd sucralfate 1 gram Tablet 1 g PO TID Qty: 90 0RF pantoprazole [Protonix] 40 mg tablet,delayed release (DR/EC) 40 mg PO BID Qty: 60 0RF spironolactone 25 mg Tablet 12.5 mg PO DAILY Qty: 30 0RF Referrals / Follow Up: Griffin Calvert NP, SCHEDULING COORDINATOR-C [Primary Care Provider, Family Practice] - Within 2 Weeks Nkechi Washington PA [Med Staff - [facility], Cardiology] - See Referral Note Referral Note: in 3 weeks Disposition Disposition (needs filled in before D/C Order can be placed): Home, Self Care Charges/Coding Visit Charges Inpatient E&M: 50893 Disch Hosp >30min
--- NOTE | 2025-03-17 13:33 | CASEMGMT ---
Per the testing specialist, pt does not qualify for home oxygen.
[2025-03-17 14:41] VITALS: BP 98/66; PULSE 78; RESP 18; TEMP 36.4; O2SAT 96
== END 2025-03-17 15:04 | disposition home or self-care (01) | DRG 292 ==
PROVIDERS: Admitting Provider Internal Medicine; PCP Nurse Practitioner; Visit Provider Internal Medicine
DX: I11.0 Hypertensive heart disease with heart failure (principal); Z68.42 Body mass index [BMI] 45.0-49.9, adult; J98.6 Disorders of diaphragm; Z79.01 Long term (current) use of anticoagulants; E03.9 Hypothyroidism, unspecified; G25.81 Restless legs syndrome; I48.0 Paroxysmal atrial fibrillation; E11.40 Type 2 diabetes mellitus with diabetic neuropathy, unspecified; F32.A Depression, unspecified; I50.30 Unspecified diastolic (congestive) heart failure; G43.909 Migraine, unspecified, not intractable, without status migrainosus; G47.33 Obstructive sleep apnea (adult) (pediatric); M19.90 Unspecified osteoarthritis, unspecified site; E78.00 Pure hypercholesterolemia, unspecified; E66.813 Obesity, class 3; G89.29 Other chronic pain; Z79.82 Long term (current) use of aspirin; Z79.890 Hormone replacement therapy; Z79.899 Other long term (current) drug therapy; Z79.84 Long term (current) use of oral hypoglycemic drugs; Z79.891 Long term (current) use of opiate analgesic; R42 Dizziness and giddiness; N40.0 Benign prostatic hyperplasia without lower urinary tract symptoms; Z90.49 Acquired absence of other specified parts of digestive tract; Z85.828 Personal history of other malignant neoplasm of skin; R06.89 Other abnormalities of breathing
CPT/HCPCS: 36415; 71045; 80053; 80061; 81001; 82607; 82746; 82962; 83036; 83735; 83880; 84100; 84443; 84484; 85025; 93005; 93306; Q9957; A4216; C8929; J1938

== ENCOUNTER 2025-03-18 18:06 | Inpatient (IN) | payer MEDICARE, BC, SELFPAY ==
[2025-03-18] VITALS (8 sets, daily range): BP systolic 73–124; BP diastolic 51–72; PULSE 73–130; RESP 13–24; TEMP 36.2–36.6; O2SAT 95–100; BMI 46.8; BMI 46.6
--- NOTE | 2025-03-18 19:02 | EX.ED.DYSGE1 ---
HPI History of Present Illness Chief Complaint: Syncope Informant: patient Onset/Context/Timing Onset: Weeks (2) Timing: Intermittent Quality: Lightheaded, spinning Location: Generalized Worsened by: Standing up Relieved by: Sitting down Narrative Narrative: Patient presents with syncopal episodes that have been intermittent over the past 2 weeks. Patient states he gets dizzy when he stands. Patient states he felt better when he sits down. Patient states that prior to syncopal episodes, he gets some tinnitus and spinning sensation. Patient states his face feels flushed. Patient admits to some blurry vision at times. Patient denies any chest pain or palpitations. Patient denies any shortness of breath or cough. Patient denies any nausea or vomiting. Patient denies any diarrhea, melena, or hematochezia. [facility] Medical History Diabetes Chronic pain Kidney stones Atrial fibrillation Congestive heart failure (CHF) Wears glasses Vertigo History of MRSA infection Cancer Neuropathy Rheumatoid arthritis Arthritis High cholesterol Excessive bleeding Dietary restriction History of diverticulitis Sleep apnea Non-smoker History of echocardiogram History of stress test Hypertension Cardiology follow-up encounter History of atrial fibrillation History of CHF (congestive heart failure) Hypothyroidism Depression Diaphragm dysfunction Dupuytren's fibromatosis Basal cell carcinoma (BCC) in situ of skin Insomnia Bursitis of right shoulder Pneumonia Diverticulitis Diabetes type 2, controlled Hypoglycemia Gout Hyperlipidemia LDL goal <130 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 Home Medications ?Medication ?Instructions ?Recorded ?Last Taken ?Type aspirin 81 mg tablet,delayed 81 mg PO DAILY 03/02/18 Unknown History release (Adult Low Dose Aspirin) magnesium oxide 500 mg capsule 500 mg PO DAILY 03/02/18 03/10/25 History prodigy #1 ea 03/02/18 Unknown History fluticasone propionate 0.05 % 1 applic topical QD-BID PRN 11/05/20 Unknown Rx topical cream (Cutivate) allergic reaction #60 grams albuterol sulfate 90 mcg/actuation 2 puff inhalation Q4H PRN sob #6.7 08/22/24 Unknown Rx aerosol inhaler (Ventolin HFA) grams amlodipine 5 mg tablet 5 mg PO DAILY #90 tabs 08/22/24 03/10/25 Rx bupropion HCl 100 mg tablet,12 hr 100 mg PO BID #180 tabs 08/22/24 03/10/25 Rx sustained-release celecoxib 200 mg capsule 200 mg PO BID #180 caps 08/22/24 02/19/25 Rx gabapentin 400 mg capsule 400 mg PO TID 90 days #270 caps 08/22/24 03/10/25 Rx glimepiride 4 mg tablet 4 mg PO QAM #90 tabs 08/22/24 03/10/25 Rx metformin 850 mg tablet 850 mg PO BID #180 tabs 08/22/24 03/10/25 Rx metoprolol tartrate 37.5 mg tablet 37.5 mg PO BID #180 tabs 08/22/24 03/10/25 Rx mirtazapine 15 mg tablet 7.5 mg (1/2 x 15 mg) PO QHS PRN 08/22/24 03/10/25 Rx sleep 90 days #90 tabs pioglitazone 45 mg tablet 45 mg PO DAILY #90 tabs 08/22/24 03/10/25 Rx sumatriptan succinate 50 mg tablet See Rx Instructions PO .COMPLEX 90 08/22/24 Unknown Rx days #20 tabs tramadol 50 mg tablet 50 mg PO TID neuropathic pain #90 08/22/24 03/10/25 Rx tabs levothyroxine 75 mcg tablet 75 mcg PO QDAY #90 tabs 11/03/24 03/10/25 Rx (Euthyrox) atorvastatin 40 mg tablet 40 mg PO QHS #90 tabs 11/27/24 03/10/25 Rx rimegepant 75 mg disintegrating 75 mg PO ONCE PRN migraine headache 11/27/24 Unknown History tablet (Nurtec ODT) rimegepant 75 mg disintegrating 75 mg PO ONCE PRN migraine 11/28/24 Unknown Rx tablet (Nurtec ODT) headache #7 tabs ammonium lactate 12 % topical cream 1 applic topical PRN CRACKED HANDS 03/06/25 Unknown History apixaban 5 mg tablet (Eliquis) 5 mg PO BID 03/06/25 03/07/25 History duloxetine 60 mg capsule,delayed 60 mg PO QHS 03/06/25 03/10/25 History release furosemide 40 mg tablet 40 mg PO DAILY 03/06/25 03/10/25 History ketorolac 10 mg tablet 10 mg PO 4X/DAY PRN PRN moderate 03/06/25 03/10/25 History pain meclizine 12.5 mg tablet 12.5 mg PO TID PRN vertigo 03/06/25 Unknown History tamsulosin 0.4 mg capsule 0.4 mg PO DAILY 03/06/25 03/10/25 History cephalexin 500 mg capsule 500 mg PO Q6H #28 caps 03/11/25 Unknown Rx oxycodone 5 mg tablet 5 mg PO Q6H PRN pain 7 days #20 03/11/25 Unknown Rx tabs phenazopyridine 100 mg tablet 100 mg PO TID #20 tabs 03/11/25 Unknown Rx (Pyridium) spironolactone 25 mg tablet 25 mg PO DAILY #30 tabs 03/17/25 Unknown Rx Allergy/AdvReac Type Severity Reaction Status Date / Time No Known Allergies Allergy Verified 03/18/25 18:06 Family History Other Esophageal cancer FH: ovarian cancer Surgical History History of surgery History of foot surgery History of colonoscopy Lump of skin of back History of colectomy History of appendectomy History of cholecystectomy Social History household members: spouse Smoking Status: Never smoker ROS ROS ED Constitutional Constitutional ED: Denies chills or fever(s) Eyes Eyes: Reports blurry vision; Denies diplopia ENT ENT ED: Denies rhinorrhea or sore throat Cardiovascular Cardiovascular: Denies chest pain or palpitations Respiratory/Chest Respiratory/Chest: Denies cough or dyspnea Gastrointestinal Gastrointestinal: Denies abdominal pain, diarrhea, melena, nausea or vomiting Genitourinary Genitourinary ED: Denies dysuria or hematuria Musculoskeletal Musculoskeletal: Reports back pain and neck pain Integumentary Denies abscess or rash Neurologic Neurologic: Reports headache(s); Denies weakness Allergic/Immunologic Allergic/Immunologic ED: Denies mouth swelling or urticaria EXAM Physical Exam Const Vital Signs: 03/18/25 18:06 03/18/25 18:37 03/18/25 19:06 Temperature 97.2 F L Temperature Source Temporal Pulse Rate 84 85 Pulse Rate [Lying] Pulse Rate [Sitting (for 1 minute prior to obtaining)] Pulse Rate [Standing (for 1 minute prior to obtaining)] Respiratory Rate 20 H 24 H Respiratory Pattern Normal Blood Pressure 117/64 110/63 Blood Pressure [Lying] Blood Pressure [Sitting (for 1 minute prior to obtaining)] Blood Pressure [Standing (for 1 minute prior to obtaining)] Blood Pressure Mean 81 78 Blood Pressure Mean [Lying] Blood Pressure Mean [Sitting (for 1 minute prior to obtaining)] Blood Pressure Mean [Standing (for 1 minute prior to obtaining)] Pulse Ox 95 100 Oxygen Delivery Method Room Air Room Air 03/18/25 19:23 03/18/25 20:00 03/18/25 21:00 Temperature Temperature Source Pulse Rate 75 76 Pulse Rate [Lying] 79 Pulse Rate [Sitting (for 1 minute prior to obtaining)] 78 Pulse Rate [Standing (for 1 minute prior to obtaining)] 130 H Respiratory Rate 13 15 Respiratory Pattern Blood Pressure 94/65 110/53 L Blood Pressure [Lying] 114/61 Blood Pressure [Sitting (for 1 minute prior to obtaining)] 101/63 Blood Pressure [Standing (for 1 minute prior to obtaining)] 73/51 L Blood Pressure Mean 74 72 Blood Pressure Mean [Lying] 78 Blood Pressure Mean [Sitting (for 1 minute prior to obtaining)] 75 Blood Pressure Mean [Standing (for 1 minute prior to obtaining)] 58 Pulse Ox 98 97 Oxygen Delivery Method Room Air Room Air Positive well nourished and well developed General Appearance ED: well developed and NAD HEENT Reports moist mucous membranes Neck supple and no JVD Resp normal respiratory effort and clear to auscultation bilaterally Cardio regular rate and regular rhythm GI non-tender and non-distended Palpation: soft Neuro oriented x3, CN's II-XII intact bilaterally and no sensory deficits noted Sensorium / Orientation: alert Motor Exam: strength 5/5 throughout Psych mental status grossly normal MDM MDM MDM Narrative Medical decision making narrative: Differential diagnosis includes dehydration, electrolyte abnormality, pulmonary embolism, congestive heart failure, pneumonia, bronchitis, urinary tract infection, and anxiety. CBC will be obtained to assess for leukocytosis and anemia. Basic metabolic profile will be obtained to assess for electrolyte abnormality renal function. Urinalysis will be obtained to assess for urinary tract infection and hematuria. D-dimer will be obtained to assess for pulmonary embolism. BNP will be obtained to assess for congestive heart failure. Chest x-ray will be obtained to assess for pneumonia, bronchitis, and congestive heart failure. History & Record Review Additional record(s) reviewed:: Prior inpatient record, Prior ED visit and Prior labs Lab Data Attestation: I reviewed the patient's lab results. Lab results narrative: CBC was reviewed. Hemoglobin was 11.1. Compared to results from 2 days ago, this has dropped from 12.7. Platelets were normal. White blood cell count was normal. D-dimer was reviewed and was less than 0.27. Basic metabolic profile was reviewed. BUN was elevated at 69 and creatinine was 1.7. BUN was increased from previous result. Creatinine was essentially unchanged from previous result. Glucose was 180. This is consistent with previous results. BNP was reviewed and was 128. Labs: Laboratory Results - last 24 hr 03/18/25 18:34 WBC 10.8 RBC 3.60 L Hgb 11.1 L Hct 34.1 L MCV 94.7 H MCH 30.8 MCHC 32.6 RDW Std Deviation 45.5 H RDW Coeff of Sarah 13.2 Plt Count 245 MPV 12.3 H Immature Gran % (Auto) 0.300 Neut % (Auto) 66.1 Lymph % (Auto) 18.6 L Kaufman % (Auto) 11.3 H Eos % (Auto) 3.1 Baso % (Auto) 0.6 Absolute Neuts (auto) 7.1 Absolute Lymphs (auto) 2.00 Nucleated RBC % 0 D-Dimer Quant (PE/DVT) < 0.27 L Sodium 138 Potassium 5.0 Chloride 99 Carbon Dioxide 30.2 Anion Gap 9 BUN 69 H Creatinine 1.70 H Estim Creat Clear Calc 77.42 Est GFR (MDRD) Non-Af 46 L BUN/Creatinine Ratio 40.4 H Glucose 180 H Calcium 9.5 NT pro BNP II 128 Radiography Chest X-Ray - ED: 2 View, Read by ED Physician, Read by Radiologist and No Acute Disease Diagnostic Testing: Clinical Impression(s) from Imaging Studies Chest X-Ray 03/18/25 19:35 IMPRESSION: Elevated right hemidiaphragm, likely with overlying atelectasis. Unchanged. Reading Location: [facility] PA and lateral chest x-ray was obtained. There are 2 views. On my independent interpretation, lung hawthorne are clear there is a chronically elevated right hemidiaphragm. There is normal cardiac silhouette. Bony thorax is normal. There is no acute process noted. Radiologist also interpreted the x-ray and agrees. Management Discussion w/another healthcare provider: Hospitalist (Dr. Cutler) and Document Improvement Specialist (Dr. Galloway) Additional Tests and Interventions Additional Tests or Interventions: Due to the drop in hemoglobin, stool for occult blood was obtained. Treatment and Re-Evaluation :: Patient was given IV fluids. Patient was given a dose of Protonix here. Case was discussed with Dr. Galloway from gastroenterology. He recommended starting patient on a Protonix drip. This was ordered. Case was discussed with the hospitalist. She will admit the patient to her service. Patient understood and was agreeable with the plan. All questions were answered. Discharge Plan Dx/Rx/DC Orders Clinical Impression: Acute upper gastrointestinal bleeding, Orthostatic hypotension, Dizziness Disposition Disposition: Acute Care Hospital [facility]
--- OUTSIDE RECORDS SUMMARY | 2025-03-18 19:04 | XMS RPT_ITS | CCD ---
Author Organization [facility] Care Team Providers Care Chip Bin Operator Name Role Phone Rosie Guerrero Unavailable Unavailable Griffin Live Unavailable Unavailable Rosie Guerrero Unavailable Unavailable Ifeanyi Calero Unavailable Unavailable Unavailable Unavailable Unavailable Griffin Live Primary Care Provider [phone] Griffin Live Unavailable Unavailable Unavailable Calos DIRECTOR OF LAND ACQUISITION.LINEN CONTROLLER Griffin L Primary Care Provide r Calos DIRECTOR OF LAND ACQUISITION.LINEN CONTROLLER Griffin L Primary Care Provide r Calos DIRECTOR OF LAND ACQUISITION.CATRACHITA Griffin L Primary Care Provide r Griffin Live Primary Care Provider Calos SCRIBING MACHINE OPERATOR-C, Griffin Primary Care Provider Calos SCRIBING MACHINE OPERATOR-CGriffin Attending Provider Calos SCRIBING MACHINE OPERATOR-C, Griffin Referring Provider GRIFFIN LIVE Primary Care Physician [phone] Unavailable Primary Care Provider UnavailDANI Scott Referring Unavailable DANI ROPER Referring Unavailable LIVE GRIFFIN Primary Care Unavailable LIVE GRIFFIN Primary Care Unavailable LIVE GRIFFIN Primary Care Unavailable LIVE, GRIFFIN Primary Care Unavailable ZARIA SEAMAN, SARAH Consulting UnavailLULA Mackey DO Admitting Unavailable LIVE, GRIFFIN Primary Care Unavailable BONY BOYD MD Consulting Unavailmariela Live SCRIBING MACHINE OPERATOR-C, Griffin Primary Care Physician Calos SCRIBING MACHINE OPERATOR-C, Griffin Attending Physician Calos SCRIBING MACHINE OPERATOR-C, Griffin Referring Provider Rosalie SEAMAN, Dr. Edmundo Manriquez Attending Physician Rosalie SEAMAN, Dr. Edmundo Manriquez Referring Provider LIVE, GRIFFIN L Primary Care Unavailable SALUD CRESPO Attending Unavailable LIVE, GRIFFIN L Primary Care Unavailable DENY VIVAR Attending Unavailable LIVE, GRIFFIN L Primary Care Unavailable CECY HUSSEIN Attending Unava ilable LIVE, GRIFFIN L Primary Care Unavailable SALUD CRESPO Attending Unavailable LIVE, GRIFFIN L Primary Care Unavailable JANETTE MCNAMARA Attending Unavailable Mikala, Kindra Consulting Unavailable Calos SCRIBING MACHINE OPERATOR, Griffin Primary Care Unavailable Juvenal Cedillo Attending Unavailable Jame Prado Admitting Unavailable Japresley, Coreymad Consulting Unavailable Karim, Adham Consulting Unavailable Mostafa, Mana Consulting Unavailable Zach, Kassidy Consulting Unavailable Artie Marquez Consulting Unavailable Logan, Leonard Consulting Unavailable Nguyen, Juvenal Consulting Unavailable Jame Zuluaga Consulting Unavailable Brooke Slater Consulting Unavailable Bony Manuel Consulting Unavailable Yesy Locke Consulting UnavailAnselmo Ng Consulting Unavailable Richard De La Torre Consulting Unavailable Elbert Shaffer Consulting Unavailable Salud Rodriguez Consulting Unavailable Janette Washington Consulting UnavailErnst Felipe Consulting Unavailable Jame Prado Consulting Unavailable Herbert Mane Consulting Unavailable Jame Prado Attending Unavailable Calos SCRIBING MACHINE OPERATOR, Griffin Primary Care Unavailable Edmundo Wiggins Referring Unavailable Edmundo Wiggins Attending Unavailable Calos SCRIBING MACHINE OPERATOR, Griffin Primary Care Unavailable Herbert Mane Attending Unavailable Mikala, Coreymed Consulting Unavailable Jame Prado Admitting Unavailable Yasmani, Coreymacody Consulting Unavailable Karim, Adham Consulting Unavailable Mostafa, Mana Consulting Unavailable Zach, Kassidy Consulting Unavailable Artie Marquez Consulting Unavailable Logan, Leonard Consulting Unavailable Juvenal Cedillo Consulting Unavailable Jame Zuluaga Consulting Unavailable Brooke Slater Consulting Unavailable Bony Manuel Consulting Unavailable Yesy Locke Consulting UnavailAnselmo Ng Consulting Unavailable Richard De La Torre Consulting Unavailable Elbert Shaffer Consulting Unavailable Salud Rodriguez Consulting Unavailable Janette Washington Consulting UnavailErnst Felipe Consulting Unavailable Jame Prado Consulting Unavailable Calos SCRIBING MACHINE OPERATOR, Griffin Referring Unavailable Calos SCRIBING MACHINE OPERATOR, Griffin Attending Unavailable Calos SCRIBING MACHINE OPERATOR, Griffin Primary Care Unavailable Calos SCRIBING MACHINE OPERATOR, Griffin Referring Unavailable Calos SCRIBING MACHINE OPERATOR, Griffin Attending Unavailable Calos SCRIBING MACHINE OPERATOR, Griffin Primary Care Unavailable Allergies Allergy Classification Reported Allergen(s) Allergy Type Date of Onset Reaction(s) Facility pregabalin (3 sources) pregabalin; Translations: [Lyrica CAPS] Drug Allergy [facility] Work Phone: (9 sources) pregabalin; Translations: [Lyrica CAPS] Drug Allergy 03-06-2021 Unknown [facility] Work Phone: (2 sources) pregabalin; Translations: [PREGABALIN] Drug Allergy 03-06-2021 [facility] Other [facility] Medications Current Medications Medication Drug Class(es) Dates Sig (Normalized) Sig (Original) acetaminophen 325 mg / oxyCODONE hydrochloride 5 mg oral tablet (8 sources) Opioid Agonist Start: 02-16-2025 End: 02-19-2025 take 1 tablet by mouth every six hours as needed for pain Percocet 5 mg-325 mg oral tablet 1 tabs, ORAL, [id number], PRN PRN as needed for pain, X 3 days, # 12 tabs, Refill(s) 0, Date: 02/16/25 3:46:00 PM EDT Start Date: 02/16/25 Stop Date: 02/19/25 Status: Ordered Quantity: 12.0 Unit: tabs Repeat number: 1 Start: 05-29-2014 End: 03-02-2018 Oxycodone-Acetaminophen 1 TA BLET tablet Discontinued 1 - 2 {tbl} PO EVERY 4 HOURS NEEDED as needed for Pain May 29, 2014 1:00am March 02, 2018 1:15pm Start: 05-29-2014 End: 03-02-2018 take 1 tablet by mouth every four hours as needed Oxycodone-Acetaminophen Discontinued 1 - 2 TABLET PO EVERY 4 HOURS NEEDED May 29, 2014 12:00am March 02, 2018 12:15pm apixaban 5 mg oral tablet (3 sources) Factor Xa Inhibitor Start: 03-06-2025 take 1 tablet by mouth twice daily Apixaban (Eliquis) 5 mg tablet Active 5 mg PO TWICE A DAY March 06, 2025 12:00am Complies with drug therapy Start: 02-22-2025 Eliquis 5 mg o ral tablet 5 mg 1 tabs, ORAL, BID, 60 tabs, Date: 02/22/25 2:43:00 PM EDT, MANUEL FENG #[id number], Tablet, 1 tabs ORAL BID, 187.96, 02/19/2025 02:14:00 EDT, Height/Length Dosing, cm, 174.4, 02/19/2025 02:14:00 EDT, Weight Dosing, kg Start Date: 02/22/25 Status: Ordered Quantity: 60.0 Unit: tabs Repeat number: 12 aspirin 81 mg delayed release oral tablet (19 sources) Platelet Aggregation Inhibitor, Nonsteroidal Anti-inflammatory Drug Start: 10-12-2017 Aspirin (Adult Lo w Dose Aspirin) 81 mg tablet,delayed release (DR/EC) Active 81 mg PO DAILY March 02, 2018 12:00am Complies with drug therapy Start: 10-12-2017 Aspirin 81 MG Oral Tablet Delayed Release Quantity: 0 Refills: 0 Ordered: 12-Oct-2017 DO Start : 12-Oct-2017 Active take 1 tablet by rocael th once daily ASPIRIN (ASPIR-81 ORAL) Take 1 tablet by mouth once daily. 0 Active Comment on above: Take 1 tablet by rocael th once daily. atorvastatin 40 mg oral tablet (10 sources) HMG-CoA Reductase Inhibitor Start: 08-03-2023 End: 11-27-2024 Lipitor 40 mg oral tablet 40 mg 1 tabs, ORAL, DAILY, 30 tabs, Date: 02/16/25 2:04:00 PM EDT, Tablet Start Date: 02/16/25 Status: Ordered Quantity: 30.0 Unit: tabs Repeat number: 1 Calcium (7 sources) Phosphate Binder, Calcium Start: 03-02-2018 calcium Active PO March 02, 2018 2:22pm Start: 03-02-2018 End: 03-06-2025 calcium Discontinued PO 0 Se pt2017 12:00am March 06, 2025 2:00pm Start: 03-02-2018 calcium Active PO March 01, 2018 11:00pm Start: 03-02-2018 calcium Active PO March 02, 2018 12:00am cephalexin 500 mg oral capsule (3 sources) Cephalosporin Antibacterial Start: 03-11-2025 take 1 capsule by mouth every six hours Start: 10-03-2021 End: 10-08-2021 take 1 capsule by mouth four times daily cephALEXin (KEFLEX) 500 mg capsule Take 1 capsule by mouth four times daily for 5 days. 20 capsule 0 10/03/2021 10/08/2021 Active Comment on above: Take 1 capsule by mo ut four times daily for 5 days. ciprofloxacin 500 mg oral tablet (2 sources) Quinolone Antimicrobial Start: 02-17-20 End: 02-24-20 ciprofloxacin 500 mg oral tablet 500 mg 1 tabs, ORAL, [id number], 7 days, 14 Glucophage (metFORMIN 850 mg oral tablet) 1 Tabs Oral TWICE A DAY Unchanged metoprolol (metoprolol tartrate 37.5 mg oral tablet) 1 Tabs Oral TWICE A DAY Unchanged mirtazapine (Remeron 15 mg oral tablet) 0.5 Tabs Oral AT BEDTIME Unchanged multivitamin 1 Tabs Oral DAILY Unchanged pioglitazone (Actos 45 mg oral tablet) 1 Tabs Oral DAILY Unchanged tamsulosin (Flomax 0.4 mg oral capsule) 1 Capsules Oral DAILY Duration: 30 Days Ordering Physician: JANETTE COLLINS DO Unchanged traMADol (Ultram 50 mg oral tablet) 1 Tabs Oral THREE TIMES A DAY Unchanged vitamin A 2,400 Microgram Oral DAILY Cardiac History Cardiac History Event Name Event Result Date/Time Cardiac Echocardiogram 02/19/25: LVEF 55-60%, mildly dilated LA, mild-moderate AR, mild-moderate MR 02/27/25 17:25:00 Review of Systems Constitutional: Denies constitutional symptoms. Eyes: Denies eye symptoms. ENMT: Denies ear symptoms. Denies nasal symptoms. Denies mouth or throat symptoms. Cardiovascular: Denies symptoms other than stated above. Resp: Denies respiratory symptoms. GI: Denies gastrointestinal symptoms. Musculoskeletal: Denies musculoskeletal symptoms. Skin: Denies skin, hair and nail symptoms. Neuro: Denies neurologic symptoms. Psych: Denies psychiatric symptoms. Endocrine: Denies endocrine symptoms. Kevin/Lymph: Denies hematologic symptoms. Physical Exam Constitutional: Appears healthy and well developed. Eyes: Conjunctivae clear. Neck: No JVD. Respiratory: Clear to auscultation bilaterally. No use of accessory muscles noted. Cardiovascular: Rate is regular. Rhythm is regular. S1 is normal. S2 is normal. No extra sounds. No heart murmur appreciated. +1 edema of the lower limbs bilaterally. Skin: Skin is warm and dry. Neuro: Alert and o (more content not included)... Normal [facility] Telephone Encounteron 2024 Manager [place] Authentication Interface Message Text Hi, it hard stops me due to him being in er/express care at [facility] within 7 days for kidney stone. I can forward to the PSS. [facility] 6 Clicks Basic Mobilit yon 02-22-2025 [facility] 6 Clicks Basic Mobility AM-PAC 6 Clicks Basic Mobility Entered On: 02/22/2025 12:20 EDT Performed On: 02/22/2025 9:00 EDT by Marizol Moreno RN AM-PAC 6 clicks Basic Mobility How much help from another person does the patient currently need... Turning from your back to your side while in a flat bed without using bedrails? : None Moving from lying on your back to sitting on the side of a flat bed without using bedrails? : None Moving to and from a bed to a chair (including a wheelchair)? : None Standing up from a chair using your arms (e.g., wheelchair, or bedside chair)? : None Walking in hospital room? : None Climbing 3-5 steps with a railing? : None Marizol Moreno RN - 02/22/2025 12:20 EDT AM-PAC Raw Score : 24 Marizol Moreno RN - 02/22/2025 12:20 EDT Normal [facility] Comment on above: Order Comment: Order placed by discern rule ADMIT_MOBILITY_SCREEN_ORD Inpatient Patient Summaryon 02-22-2025 Inpatient Patient Summary [facility] Discharge Instructions [id number] [id number] (Patient Copy) Name: JAME WALLACE : 1965 Diagnosis: Allergies: No Known Allergies Registration Date: 02/19/25 [facility]#: [id number] Current Date Time: 02/22/2025 14:45:03 Address: [address] [facility] [address] Phone: [phone] Primary Care Provider: Name: GRIFFIN LIVE Phone: [phone] Thank you for choosing [facility] for your care. You are very important to us. Our goal is to demonstrate our high quality medical care and provide you with a very good patient experience. You may receive a survey about our service. Please take the time to complete the survey and return it so we can continue to enhance our service. Thank you again for allowing [facility] to care for your medical needs. If you have any questions about your care or follow up information please contact your doctor. Follow-up Instructions The following Appointments have been made for you: Please Note: the first letters listed in the order is the location code, followed by the appointment date, and scheduled provider Future Appointments No Future Appointments Scheduled Provider Follow Ups: With: Address: When: [place] [address], [address] [place] [address] Business (1) 02/27/2025 3:30 PM With: Address: When: Heart Failure Education ([facility]) [address] [facility] [place] [address] [employer] (1) 02/24/2025 1:00 PM Comments: Please CALL [phone] if unable to attend. IF PATIENT IS DISCHARGE TO A NURSING FACILITY OR SENIOR LIVING CARE PLEASE DO NOT ATTEND. If you have had an intravenous catheter (IV) during your stay, keep the dressing dry and do not remove it from the site for at least 24 hours or as instructed by your provider to prevent problems. Medication Information Only Take The Medicines On This List. Keep This List and Bring It To Your Next Appointment. Medicines To Take At Home: Medicine Name (Generic Name) Amount to Take How to Take it How Often to Take it Additional Instructions Next Dose Due Lipitor 40 mg oral tablet (atorvastatin) 40 mg By Mouth DAILY Wellbutrin SR 100 mg/12 hours oral tablet, extended release (bupropion) 100 mg By Mouth TWICE A DAY CeleBREX 200 mg oral capsule (celecoxib) 200 mg By Mouth TWICE A DAY ciprofloxacin 500 mg oral tablet (ciprofloxacin = cipro) 500 mg By Mouth EVERY TWELVE HOURS For 7 days Cymbalta 60 mg oral delayed release capsule (duloxetine) 60 mg By Mouth DAILY (do not crush or chew) Neurontin 400 mg oral capsule (gabapentin) 400 mg By Mouth THREE TIMES A DAY Amaryl 4 mg oral tablet (glimepiride) 4 mg By Mouth DAILY Synthroid 75 mcg (0.075 mg) oral tablet (levothyroxine) 75 mcg By Mouth DAILY magnesium gluconate 250 mg oral tablet (magnesium gluconate) 250 mg By Mouth DAILY metFORMIN 850 mg oral tablet (metformin = glucophage) 850 mg By Mouth TWICE A DAY metoprolol tartrate 37.5 mg oral tablet (metoprolol) 37.5 mg By Mouth TWICE A DAY Remeron 15 mg oral tablet (mirtazapine) 7.5 mg By Mouth AT BEDTIME multivitamin (multivitamin) 1 tabs By Mouth DAILY Actos 45 mg oral tablet (pioglitazone) 45 mg By Mouth DAILY Flomax 0.4 mg oral capsule (tamsulosin) 0.4 mg By Mouth DAILY For 30 days Ultram 50 mg oral tablet (tramadol) 50 mg By Mouth THREE TIMES A DAY vitamin A (vitamin a) 2,400 mcg By Mouth DAILY Understanding your home medicine is important to keeping you healthy. If you are taking medications that are not on the preceding list, please call your doctor to see if you are to continue taking that medication. It is important that you do not skip or make up doses. If you are ordered an antibiotic, finish taking all the medicine unless your doctor tells you otherwise. Call your doctor if you have any questions or problems. Take the medicine list with you to all follow up appointments. Patient education materials, if any, will display below Low Sodium Diet (2,000 Milligram): Care Instructions Overview Limiting sodium can be an important part of managing some health problems. The most common source of sodium is salt. People get most of the salt in their diet from canned, prepared, and packaged foods. Fast food and restaurant meals also are very high in sodium. Your doctor will probably limit your sodium to less than 2,000 milligrams (mg) a day. This limit counts all the sodium in prepared and packaged foods and any salt you add to your food. Follow-up care is a owens part of your treatment and safety. Be sure to make and go to all appointments, and call your doctor if you are having problems. It's also a good idea to know your test results and keep a list of the medicines you take. How can you care for yourself at home? Read food labels ? Read labels on (more content not included)... [facility] LaboratoryOrdered By: Anna Perez telewec on 02-22-2025 Glucose [Mass/Vol] 125 mg/dL High 72 - 100 mg/dL POC Chem Glucose [Mass/Vol] 159 mg/dL High 72 - 100 mg/dL POC Chem LaboratoryOrdered By: Reddy Eddy on 02-22-2025 Glucose [Mass/Vol] 123 mg/dL High 72 - 100 mg/dL POC Chem POC Glucoseon 02-22-2025 Glucose [Mass/Vol] 125 mg/dL High 72-100 [facility] Comment on above: Performed By: #### [id number] #### [facility] [address] [place], [place] [id number] [employer] Expl[employer] Investigator: Shin Flood MD Glucose [Mass/Vol] 159 mg/dL High 72-100 [facility] Comment on above: Performed By: #### 1 [id number] #### [facility] [address] [place] [id number] [employer] Expl[employer] Investigator: Shin Flood MD Glucose [Mass/Vol] 123 mg/dL High 72-100 [facility] Comment on above: Performed By: #### [id number] #### [facility] [address] [place], [place] [id number] [employer] Expl[employer] Investigator: Shin Flood MD Progress Note-Physicianon Progress Note-Physician JAME WALLACE :1965 Registration Date:02/19/2025 Subjective Seen today doing much better IV Lasix cleared by cardiology for urology procedures Heart rates are under control he is not symptomatic no shortness of breath doing better and I think he is cleared at this point for the procedures have to see if he is going to have it done here or he asked to be discharged and then follow-up as an outpatient for his urology procedures Review of Systems Constitutional: no fever, no chills, no sweats, no weakness Respiratory: no shortness of breath, no cough Cardiovascular: no chest pain Additional ROS info: Except as noted in the above Review of Systems and in the History of Present Illness all other systems have been reviewed and are negative or noncontributory. Objective Vitals & Measurements T: 36.4 ?C (Oral) TMIN: 36.4 ?C (Oral) TMAX: 36.5 ?C (Oral) HR: 65 (Monitored) RR: 16 BP: 114/73 SpO2: 97% WT: 165.0 kg Physical Exam Vital Signs: Per nurse's notes. General: Alert, no acute distress. Skin: Warm, dry, pink. Head: Normocephalic, atraumatic. Neck: Supple, trachea midline. Eye: Pupils are equal, round and reactive to light. Cardiovascular: Regular rate and rhythm, normal peripheral perfusion. Respiratory: Lungs are clear to auscultation, respirations are non-labored. Psychiatric: Cooperative. Neurological: Alert and oriented to person, place, time, and situation. Medications Inpatient acetaminophen, 650 mg= 2 tabs, ORAL, [id number], PRN acetaminophen, 650 mg= 2 tabs, ORAL, [id number], PRN acetaminophen, 650 mg= 2 tabs, ORAL, [id number], PRN acetaminophen-oxycodone(ayad taminophen-oxycodone 325 mg-5 mg oral tablet = Percocet), 1 tabs, ORAL, [id number], PRN apixaban(Eliquis), 5 mg= 1 tabs, ORAL, ONCE aspirin(Aspirin Low Dose), 81 mg= 1 tabs, ORAL, DAILY WITH BREAKFAST atorvastatin(Lipitor), 40 mg= 1 tabs, ORAL, DAILY buPROPion(Wellbutrin SR, Zyban (buPROPion SR)), 100 mg= 1 tabs, ORAL, BID celecoxib(CeleBREX), 200 mg= 1 caps, ORAL, BID ciprofloxacin = Cipro, 500 mg= 1 tabs, ORAL, [id number] digoxin, 0.25 mg= 1 mL, IV Push, ONCE DULoxetine(Cymbalta), 60 mg= 1 caps, ORAL, DAILY furosemide, 40 mg= 1 tabs, ORAL, DAILY BEFORE BREAKFAST gabapentin(Neurontin), 400 mg= 1 caps, ORAL, TID glimepiride(Amaryl), 4 mg= 1 tabs, ORAL, DAILY WITH BREAKFAST glucagon, 1 mg, IM, PRN, PRN glucose(glucose 15 g/42 mL oral gel), 15 g= 1 packets, ORAL, PRN, PRN glucose(glucose 15 g/42 mL oral gel), 30 g= 2 packets, ORAL, PRN, PRN glucose(Dextrose 50% injection), 12.5 g= 25 mL, IV Push, PRN, PRN glucose(Dextrose 50% injection), 25 g= 50 mL, IV Push, PRN, PRN insulin lispro(Humalog coverage), Mild Scale, Subcutaneous, QIDWMHS ketorolac = Toradol, 10 mg= 1 tabs, ORAL, QID, PRN levothyroxine(Synthroid), 75 mcg= 1 tabs, ORAL, DAILY BEFORE BREAKFAST melatonin, 5 mg= 1 tabs, ORAL, [id number], PRN metFORMIN = Glucophage, 850 mg= 1 tabs, ORAL, BIDWM metoprolol(Lopressor = Metoprolol Tartrate), 5 mg= 5 mL, IV Push, [id number], PRN metoprolol(Lopressor = Metoprolol Tartrate), 50 mg= 1 tabs, ORAL, BID mirtazapine(Remeron), 7.5 mg= 1 tabs, ORAL, QHS multivitamin, 1 tabs, ORAL, DAILY naloxone = Narcan, 0.4 mg= 1 mL, IV Push, PRN, PRN ondansetron(ondansetron 4 mg oral tablet, disintegrating = Zofran), 4 mg= 1 tabs, ORAL, [id number], PRN tamsulosin(Flomax), 0.4 mg= 1 caps, ORAL, DAILY traMADol(Ultram), 50 mg= 1 tabs, ORAL, TID valsartan, 80 mg= 1 tabs, ORAL, BID Lab Results Test Name Test Result Date/Time POC Glucose 159 mg/dL 02/22/2025 12:14 EDT POC Glucose 123 mg/dL 02/22/2025 07:24 EDT POC Glucose 161 mg/dL 02/21/2025 20:32 EDT POC Glucose 81 mg/dL 02/21/2025 16:09 EDT Assessment/Plan This Visit Diagnosis Orders: POC Glucose, Blood, Collected Y/N, Nurse Collect, 02/21/2025 16:09:10 EDT, RT, Routine, 02/21/2025 16:09:10 EDT POC Glucose, Blood, Collected Y/N, Nurse Collect, 02/21/2025 20:32:28 EDT, RT, Routine, 02/21/2025 20:32:28 EDT POC Glucose, Blood, Collected Y/N, Nurse Collect, 02/22/2025 07:24:48 EDT, RT, Routine, 02/22/2025 07:24:48 EDT POC Glucose, Blood, Collected Y/N, Nurse Collect, 02/22/2025 12:14:53 EDT, RT, Routine, 02/22/2025 12:14:53 EDT Acute congestive heart failure I need to get a cardiology consult IV diuretics restart his home-going meds repeat a renal function panel daily monitor the electrolytes and the renal function closely I will take a look at his BNP probably needs an echo need to tune him up for a cystoscopy and urology procedures coming Sunday maintain his oxygen saturations continue with anticoagulation low-salt diet I will check his Accu-Cheks as well continue with all of his other chronic medications thank you 02/20/2025 For now cardiology much appreciated the recommendations has a heart failure with preserved ejection fraction diastolic failure diastolic dysfunction Candie co (more content not included)... Normal [facility] Progress Note-Physician JAME WALLACE :1965 Registration Date:02/19/2025 [facility] IMPRESSION: 1. HFpEF, acute 2. Atrial fibrillation, paroxysmal 3. Nephrolithiasis 4. Hypertension PLAN: 1. Maintaining NSR; continue metoprolol; will initiate apixaban when safe after urologic procedure 2. Transition to oral lasix 3. Will need sleep study as outpatient 4. May proceed with urologic procedure tomorrow at low CV risk INTERVAL HISTORY: resting comfortably on room air MEDS: reviewed from Provider Home Page PHYSICAL EXAM: Vital Signs (last 24 hrs) Last Charted Temp Oral 36.5 degC (FEB 22:) Heart Rate Peripheral L 57 bpm (FEB 22:) Resp Rate 18 br/min (FEB 22) SBP 118 mmHg (FEB 22:) DBP 76 mmHg (FEB 22:) General: Stable, with no apparent distress. Neck: JVP 7cm @ 45deg. No carotid bruits. CV: RRR no MRG; Normal S1S2; non-sustained, non-displaced PMI. Lungs: CTAx2. Abdomen: Benign. Extremities: No clubbing, cyanosis, or edema. Intact peripheral pulses. I/O's and DAILY WEIGHTS Default ECG/Telemetry: NSR with no acute ischemic changes Radiology: CXR without infiltrate or effusion Labs Normal [facility] 6 Clicks Basic Mobilit yon 02-21-2025 [facility] 6 Clicks Basic Mobility -PAC 6 Clicks Basic Mobility Entered On: 02/21/2025 12:59 EDT Performed On: 02/21/2025 8:30 EDT by [facility] How much help from another person does the patient currently need... Turning from your back to your side while in a flat bed without using bedrails? : None Moving from lying on your back to sitting on the side of a flat bed without using bedrails? : None Moving to and from a bed to a chair (including a wheelchair)? : None Standing up from a chair using your arms (e.g., wheelchair, or bedside chair)? : None Walking in hospital room? : None Climbing 3-5 steps with a railing? : None Marizol Moreno RN - 02/21/2025 12:59 EDT AM-PAC Raw Score : 24 Marizol Moreno RN - 02/21/2025 12:59 EDT Normal [facility] Comment on above: Order Comment: Order placed by discern rule ADMIT_MOBILITY_SCREEN_ORD LaboratoryOrdered By: Verito Pires on 02-21-2025 Platelets (Bld) [#/Vol] 212 10*3/uL Normal 150 - 450 x10^3/uL [facility] 1600 MPL PLATELET ONLYon 02-21-2025 Platelet 212 x10 Normal 150-450 [facility] Comment on above: Order Comment: PLT c ount on Day 2 after initiation of Heparin or Lovenox, Notify Physician if PLT Count less than 100,000 Performed By: #### 1 [id number] #### [facility] [address] [place] [address] [id number] [employer] Investigator: Shin Flood MD POC Glucoseon 02-21-2025 Glucose [Mass/Vol] 161 mg/dL High 72-100 [facility] Comment on above: Performed By: #### 1 [id number] #### [facility] [address] [place] [id number] [employer] And [employer] Investigator: Shin Flood MD Glucose [Mass/Vol] 81 mg/dL Normal 72-100 [facility] Comment on above: Performed By: #### 1 [id number] #### [facility] [address] [place] [address] 05161 [employer] Investigator: Shin Flood MD Glucose [Mass/Vol] 239 mg/dL High 72100 [facility] Comment on above: Performed By: #### 1 [id number] #### [facility] [address] [place] [address] 11149 [employer] Investigator: Shin Flood MD Glucose [Mass/Vol] 114 mg/dL High 72-100 [facility] Comment on above: Performed By: #### 1 [id number] #### [facility] [address] [place] [address] [employer] And [employer] Investigator: Shin Flood MD Progress Note-Physicianmegan Progress Note-Physician JAME WALLACE :1965 Registration Date:02/19/2025 Subjective Seen today feeling much better he is to have it done at the outpatient surgery center shockwave lithotripsy and a right ureteral stent cystoscopy so I will probably take him through on Sunday discharge him and then on Sunday he will have all of his procedures and I think he will be ready Review of Systems Constitutional: no fever, no chills, no sweats, no weakness Respiratory: no shortness of breath, no cough Cardiovascular: no chest pain Additional ROS info: Except as noted in the above Review of Systems and in the History of Present Illness all other systems have been reviewed and are negative or noncontributory. Objective Vitals & Measurements T: 36.4 ?C (Oral) TMIN: 36.4 ?C (Oral) TMAX: 36.7 ?C (Oral) HR: 62 (Peripheral) RR: 16 BP: 124/77 SpO2: 93% WT: 165.7 kg Physical Exam Vital Signs: Per nurse's notes. General: Alert, no acute distress. Skin: Warm, dry, pink. Head: Normocephalic, atraumatic. Neck: Supple, trachea midline. Eye: Pupils are equal, round and reactive to light. Cardiovascular: Regular rate and rhythm, normal peripheral perfusion. Respiratory: Lungs are clear to auscultation, respirations are non-labored. Psychiatric: Cooperative. Neurological: Alert and oriented to person, place, time, and situation. Medications Inpatient acetaminophen, 650 mg= 2 tabs, ORAL, [id number], PRN acetaminophen, 650 mg= 2 tabs, ORAL, [id number], PRN acetaminophen, 650 mg= 2 tabs, ORAL, [id number], PRN acetaminophen-oxycodone(ayad taminophen-oxycodone 325 mg-5 mg oral tablet = Percocet), 1 tabs, ORAL, [id number], PRN apixaban(Eliquis), 5 mg= 1 tabs, ORAL, ONCE aspirin(Aspirin Low Dose), 81 mg= 1 tabs, ORAL, DAILY WITH BREAKFAST atorvastatin(Lipitor), 40 mg= 1 tabs, ORAL, DAILY buPROPion(Wellbutrin SR, Zyban (buPROPion SR)), 100 mg= 1 tabs, ORAL, BID celecoxib(CeleBREX), 200 mg= 1 caps, ORAL, BID ciprofloxacin = Cipro, 500 mg= 1 tabs, ORAL, [id number] digoxin, 0.25 mg= 1 mL, IV Push, ONCE DULoxetine(Cymbalta), 60 mg= 1 caps, ORAL, DAILY furosemide(Lasix), 20 mg= 2 mL, IV Push, DAILY gabapentin(Neurontin), 400 mg= 1 caps, ORAL, TID glimepiride(Amaryl), 4 mg= 1 tabs, ORAL, DAILY WITH BREAKFAST glucagon, 1 mg, IM, PRN, PRN glucose(glucose 15 g/42 mL oral gel), 15 g= 1 packets, ORAL, PRN, PRN glucose(glucose 15 g/42 mL oral gel), 30 g= 2 packets, ORAL, PRN, PRN glucose(Dextrose 50% injection), 12.5 g= 25 mL, IV Push, PRN, PRN glucose(Dextrose 50% injection), 25 g= 50 mL, IV Push, PRN, PRN insulin lispro(Humalog coverage), Mild Scale, Subcutaneous, QIDWMHS ketorolac = Toradol, 10 mg= 1 tabs, ORAL, QID, PRN levothyroxine(Synthroid), 75 mcg= 1 tabs, ORAL, DAILY BEFORE BREAKFAST melatonin, 5 mg= 1 tabs, ORAL, [id number], PRN metFORMIN = Glucophage, 850 mg= 1 tabs, ORAL, BIDWM metoprolol(Lopressor = Metoprolol Tartrate), 5 mg= 5 mL, IV Push, [id number], PRN metoprolol(Lopressor = Metoprolol Tartrate), 50 mg= 1 tabs, ORAL, BID mirtazapine(Remeron), 7.5 mg= 1 tabs, ORAL, QHS multivitamin, 1 tabs, ORAL, DAILY naloxone = Narcan, 0.4 mg= 1 mL, IV Push, PRN, PRN ondansetron(ondansetron 4 mg oral tablet, disintegrating = Zofran), 4 mg= 1 tabs, ORAL, [id number], PRN tamsulosin(Flomax), 0.4 mg= 1 caps, ORAL, DAILY traMADol(Ultram), 50 mg= 1 tabs, ORAL, TID valsartan, 80 mg= 1 tabs, ORAL, BID Lab Results Test Name Test Result Date/Time Platelet 212 x103/uL 02/21/2025 07:20 EDT POC Glucose 81 mg/dL 02/21/2025 16:09 EDT POC Glucose 239 mg/dL 02/21/2025 11:18 EDT POC Glucose 114 mg/dL 02/21/2025 06:54 EDT Assessment/Plan This Visit Diagnosis Orders: PLATELET ONLY(PLATELET COUNT ONLY), ROUTINE, 02/21/2025 05:00:00 EDT POC Glucose, Blood, Collected Y/N, Nurse Collect, 02/21/2025 06:54:09 EDT, RT, Routine, 02/21/2025 06:54:09 EDT POC Glucose, Blood, Collected Y/N, Nurse Collect, 02/21/2025 11:18:06 EDT, RT, Routine, 02/21/2025 11:18:06 EDT POC Glucose, Blood, Collected Y/N, Nurse Collect, 02/21/2025 16:09:10 EDT, RT, Routine, 02/21/2025 16:09:10 EDT Acute congestive heart failure I need to get a cardiology consult IV diuretics restart his home-going meds repeat a renal function panel daily monitor the electrolytes and the renal function closely I will take a look at his BNP probably needs an echo need to tune him up for a cystoscopy and urology procedures coming Sunday maintain his oxygen saturations continue with anticoagulation low-salt diet I will check his Accu-Cheks as well continue with all of his other chronic medications thank you 02/20/2025 For now cardiology much appreciated the recommendations has a heart failure with preserved ejection fraction diastolic failure diastolic dysfunction Candie continue with Lasix losartan has been started so we will keep titrating his meds maintaining his oxygen sat saturations up and continuing (more content not included)... Normal [facility] Progress Note-Physician JAME WALLACE :1965 Registration Date:02/19/2025 [facility] IMPRESSION: 1. HFpEF, acute 2. Atrial fibrillation, paroxysmal 3. Nephrolithiasis 4. Hypertension PLAN: 1. Maintaining NSR; will increase beta jared 2. Decrease IV diuresis 3. Increase ARB for hypertension 4. May proceed with urologic procedure on Sunday low risk from CV standpoint INTERVAL HISTORY: up in chair; no new complaints MEDS: reviewed from Provider Home Page PHYSICAL EXAM: Vital Signs (last 24 hrs) Last Charted Temp Oral 36.4 degC (FEB 21 11:16) Heart Rate Monitored 72 bpm (FEB 21 12:00) Resp Rate 16 br/min (FEB 21 11:16) SBP H 145 mmHg (FEB 21 11:16) DBP H 86 mmHg (FEB 21 11:16) General: Stable, with no apparent distress. Neck: JVP 7cm @ 45deg. No carotid bruits. CV: RRR no MRG; Normal S1S2; non-sustained, non-displaced PMI. Lungs: CTAx2. Abdomen: Benign. Extremities: No clubbing, cyanosis, or edema. Intact peripheral pulses. I/O's and DAILY WEIGHTS Default ECG/Telemetry: NSR with no acute ischemic changes Radiology: CXR without infiltrate or effusion Labs Normal [facility] 6 Clicks Basic Mobilit yon 02-20-2025 [facility] 6 Clicks Basic Mobility AM-PAC 6 Clicks Basic Mobility Entered On: 02/20/2025 8:45 EDT Performed On: 02/20/2025 8:45 EDT by Kamlesh Wiggins RN -PAC 6 clicks Basic Mobility How much help from another person does the patient currently need... Turning from your back to your side while in a flat bed without using bedrails? : None Moving from lying on your back to sitting on the side of a flat bed without using bedrails? : None Moving to and from a bed to a chair (including a wheelchair)? : None Standing up from a chair using your arms (e.g., wheelchair, or bedside chair)? : None Walking in hospital room? : None Climbing 3-5 steps with a railing? : None Kamlesh Wiggins RN - 02/20/2025 8:45 EDT AM-PAC Raw Score : 24 Kamlesh Wiggins RN - 02/20/2025 8:45 EDT Normal [facility] Comment on above: Order Comment: Order placed by discern rule ADMIT_MOBILITY_SCREEN_ORD AUTO DIFFon 02-20-2025 Baso Count 0.07 x1000 Normal 0.00-0.20 [facility] Comment on above: Performed By: #### 1 [id number] #### [facility] [address] [place], [place] [id number] [employer] Investigator: Shin Flood MD Basos % 1.0 % Normal [facility] Comment on above: Performed By: #### 1 [id number] #### [facility] [address] [place], [place] [address] [employer] Investigator: Shin Flood MD Eos Count 0.21 x1000 Normal 0.00-0.50 [facility] Comment on above: Performed By: #### 1 [id number] #### [facility] [address] [place], [place] [address] [employer] Investigator: Shin Flood MD Eosinophils/100 WBC (Bld) 2.7 % Normal [facility] Comment on above: Performed By: #### 1 [id number] #### [facility] [address] [place] [address] 99171 [employer] Investigator: Shin Flood MD Lymph Count 1.02 x1000 Low 1.20-4.80 [facility] Comment on above: Performed By: #### 1 [id number] #### [facility] [address] [place] [address] 97648 [employer] Investigator: Shin Flood MD Lymphocytes/100 WBC (Bld) 13.0 % Normal [facility] Comment on above: Performed By: #### 1 [id number] #### [facility] [address] [place] [address] 80153 [employer] Investigator: Shin Flood MD Mcclain Count 0.80 x1000 Normal 0.10-1.00 [facility] Comment on above: Performed By: #### 1 [id number] #### [facility] [address] [place] [address] 85465 [employer] Investigator: Shin Flood MD Monocytes/100 WBC (Bld) 10.3 % Normal [facility] Comment on above: Performed By: #### 1 [id number] #### [facility] [address] [place] [address] 60102 [employer] Investigator: Shin Flood MD Neutrophil Count (ANC) 5.70 x1000 Normal 1.40-8.80 [facility] Comment on above: Performed By: #### 1 [id number] #### [facility] [address] [place] [address] 69802 [employer] Investigator: Shin Flood MD Neutrophils/100 WBC (Bld) 73.0 % Normal [facility] Comment on above: Performed By: #### 1 [id number] #### [facility] [address] [place] [address] 78628 [employer] Investigator: Shin Flood MD BASICMETn 02-20-2025 Calcium [Mass/Vol] 9.1 mg/dL Normal 8.7-10.4 [facility] Comment on above: Performed By: #### 1 [id number] #### [facility] [address] [place] [address] [employer] And Explosion Investigator: Shin Flood MD Chloride [Moles/Vol] 96 mmol/L Low 98-107 [facility] Comment on above: Performed By: #### 1 [id number] #### [facility] [address] [place] [address] [employer] And Explosion Investigator: Shin Flood MD CO2 [Moles/Vol] 40.0 mmol/L High 20.0-31.0 [facility] Comment on above: Performed By: #### 1 [id number] #### [facility] [address] [place] [address] 34150 [employer] Expl[employer] Investigator: Shin Flood MD Creatinine [Mass/Vol] 1.2 mg/dL High 0.6-1.1 [facility] Comment on above: Performed By: #### 1 [id number] #### [facility] [address] [place] [address] 08875 [employer] Investigator: Shin Flood MD GFR AA >60 Normal [facility] Comment on above: Result Comment: Afri can Fijian GFR Calc Medical judgement is necessary to interpret GFR. The calculated GFR may not accurately reflect renal status in patients >70 years, women, acutely ill hospitalized patients and patients with acute renal failure or known renal disease. The MDRD GFR formula is valid only for adults greater than 18 years of age. Note: Creatinine clearance (not GFR) should be used for drug dosing. Calculated result performed using the MDRD GFR equation Performed By: #### 1 [id number] #### [facility] [address] [place] [address] [id number] [employer] And Expl[employer] Investigator: Shin Flood MD Glomerular Filtration Rate >60 Normal [facility] Comment on above: Result Comment: Non- GFR Calc Medical judgement is necessary to interpret GFR. The calculated GFR may not accurately reflect renal status in patients >70 years, women, acutely ill hospitalized patients and patients with acute renal failure or known renal disease. The MDRD GFR formula is valid only for adults greater than 18 years of age. Note: Creatinine clearance (not GFR) should be used for drug dosing. Calculated result performed using the MDRD GFR equation Performed By: #### 1 [id number] #### [facility] [address] [place] [address] [id number] [employer] Investigator: Shin Flood MD Glucose [Mass/Vol] 207 mg/dL High 74-106 [facility] Comment on above: Performed By: #### 1 [id number] #### [facility] [address] [place] [address] 07317 [employer] And Expl[employer] Investigator: Shin Flood MD Osmolality [Osmolality] 290 mosm/kg Normal 275-295 [facility] Comment on above: Performed By: #### 1 [id number] #### [facility] [address] [place] [address] 13087 [employer] Expl[employer] Investigator: Shin Flood MD Potassium [Moles/Vol] 4.3 mmol/L Normal 3.5-5.1 [facility] Comment on above: Performed By: #### 1 [id number] #### [facility] [address] [place] [address] 27740 [employer] And Explosion Investigator: Shin Flood MD Sodium [Moles/Vol] 141 mmol/L Normal 135-145 [facility] Comment on above: Performed By: #### 1 [id number] #### [facility] [address] [place] [address] 79014 [employer] Explosion Investigator: Shin Flood MD Urea nitrogen [Mass/Vol] 19 mg/dL Normal 9-23 [facility] Comment on above: Result Comment: - Ve nipuncture should occur prior to N-Acetyl Cysteine (NAC) or Metamizole (Sulpyrine) administration due to the potential for falsely depressed results. - Blood samples from some patients with monoclonal gammopathies may produce falsely elevated results Performed By: #### 1 [id number] #### [facility] [address] [place] [address] 36387 [employer] And Explosion Investigator: Shin Flood MD Urea nitrogen/Creatinine [Mass ratio] 15.8 mg/mg Normal [facility] Comment on above: Performed By: #### 1 [id number] #### [facility] [address] [place] [address] 88054 [employer] And Explosion Investigator: Shin Flood MD HEMOon 02-20-2025 DIFF? No Normal [facility] Comment on above: Performed By: #### 1 [id number] #### [facility] [address] [place] [address] 18024 [employer] And Explosion Investigator: Shin Flood MD Erythrocyte distribution width (RBC) [Ratio] 13.9 % Normal 11.5-14.5 [facility] Comment on above: Performed By: #### 1 [id number] #### [facility] [address] [place] [address] 33706 [employer] Expl[employer] Investigator: Shin Flood MD Hematocrit (Bld) [Volume fraction] 38.8 % Low 41.0-52.0 [facility] Comment on above: Performed By: #### 1 [id number] #### [facility] [address] [place] [address] 73080 [employer] Expl[employer] Investigator: Shin Flood MD Hemoglobin (Bld) [Mass/Vol] 13.1 g/dL Low 13.5-17.5 [facility] Comment on above: Performed By: #### 1 [id number] #### [facility] [address] [place] [address] 62398 [employer] And Expl[employer] Investigator: Shin Flood MD Instr WBC 7.8 Normal [facility] Comment on above: Performed By: #### 1 [id number] #### [facility] [address] [place] [address] 24484 [employer] Expl[employer] Investigator: Shin Flood MD MCH (RBC) [Entitic mass] 31.5 pg Normal 27.0-34.0 [facility] Comment on above: Performed By: #### 1 [id number] #### [facility] [address] [place] [address] 11454 [employer] And Explosion Investigator: Shin Flood MD MCHC (RBC) [Mass/Vol] 33.8 g/dL Normal 32.0-37.0 [facility] Comment on above: Performed By: #### 1 [id number] #### [facility] [address] [place] [address] 13370 [employer] And Explosion Investigator: Shin Flood MD MCV (RBC) [Entitic vol] 93.1 fL Normal 80.0-100.0 [facility] Comment on above: Performed By: #### 1 [id number] #### [facility] [place] [id number] [employer] And Explosion Investigator: Shin Flood MD Nucleated RBC 0 /100WBC Normal [facility] Comment on above: Performed By: #### 1 [id number] #### [facility] [address] [place] [address] 22018 [employer] And Explosion Investigator: Shin Flood MD Platelet 198 x10 Normal 150-450 [facility] Comment on above: Performed By: #### 1 [id number] #### [facility] [address] [place], [place] [address] [employer] And Expl[employer] Investigator: Shin Flood MD Platelet mean volume (Bld) [Entitic vol] 9.6 fL Normal 7.4-10.4 [facility] Comment on above: Performed By: #### 1 [id number] #### [facility] [address] [place] [address] 7[address]23 [employer] And Explosion Investigator: Shin Flood MD RBC 4.17 x10 Low 4.70-6.10 [facility] Comment on above: Result Comment: Note : RBC morphology is normal unless otherwise stated. Evaluation performed only if differential is requested. Performed By: #### 1 [id number] #### [facility] [address] [place] [address] [employer] And Explosion Investigator: Shin Flood MD WBC 7.8 x10 Normal 4.5-11.0 [facility] Comment on above: Performed By: #### 1 [id number] #### [facility] [address] [place] [address] [employer] And Explosion Investigator: Shin Flood MD LaboratoryOrdered By: SYSTEM SYSTEM on 02-20-2025 Estimated Creatinine Clearance 78.01 mL/min [facility] Work Phone: Basophils (Bld) [#/Vol] 0.07 10*3/uL Normal 0.00 - 0.20 x1000 SW Dx[facility] 1600 MPL Basophils/100 WBC (Bld) 1.0 % Invalid Interpretation Code SW DxH 1600 MPL Calcium [Mass/Vol] 9.1 mg/dL Normal 8.7 - 10. 4 mg/dL SW ADM RES Chloride [Moles/Vol] 96 mmol/L Low 98 - 10 7 mmol/L SW ADM RES CO2 [Moles/Vol] 40.0 mmol/L High 20.0 - 31.0 mmol/L SW ADM RES Creatinine [Mass/Vol] 1.2 mg/dL High 0.6 - 1.1 mg/dL SW ADM RES Eosinophils (Bld) [#/Vol] 0.21 10*3/uL Normal 0.00 - 0.50 x1000 SW DxH 1600 MPL Eosinophils/100 WBC (Bld) 2.7 % Invalid Interpretation Code SW DxH 1600 MPL Erythrocyte distribution width (RBC) [Ratio] 13.9 % Normal 11.5 - 14.5 % SW DxH 1600 MPL GFR AA 1 Invalid Interpretation Code SW ADM RES Comment on above: Result Comment: Afri can Fijian GFR Calc Interpretive Data: Medical judgement is necessary to interpret GFR. The calculated GFR may not accurately reflect renal status in patients >70 years, women, acutely ill hospitalized patients and patients with acute renal failure or known renal disease. The MDRD GFR formula is valid only for adults greater than 18 years of age. Note: Creatinine clearance (not GFR) should be used for drug dosing. Calculated result performed using the MDRD GFR equation GFR/1.73 sq M.predicted MDRD (S/P/Bld) [Vol rate/Area] mL/min/1.73m Invalid Interpretation Code SW ADM RES Comment on above: Result Comment: Non- GFR Calc Interpretive Data: Medical judgement is necessary to interpret GFR. The calculated GFR may not accurately reflect renal status in patients >70 years, women, acutely ill hospitalized patients and patients with acute renal failure or known renal disease. The MDRD GFR formula is valid only for adults greater than 18 years of age. Note: Creatinine clearance (not GFR) should be used for drug dosing. Calculated result performed using the MDRD GFR equation Glucose [Mass/Vol] 207 mg/dL High 74 - 106 mg/dL ADM RES Hematocrit (Bld) [Volume fraction] 38.8 % Low 41.0 - 52.0 % SW DxH 1600 MPL Hemoglobin (Bld) [Mass/Vol] 13.1 g/dL Low 13.5 - 17.5 g/dL SW Dx[facility] 1600 MPL Lymphocytes (Bld) [#/Vol] 1.02 10*3/uL Low 1.20 - 4.80 x1000 SW Dx[facility] 1600 MPL Lymphocytes/100 WBC (Bld) 13.0 % Invalid Interpretation Code SW DxH 1600 MPL MCH (RBC) [Entitic mass] 31.5 pg Normal 27.0 - 34.0 pg SW DxH 1600 MPL MCHC (RBC) [Mass/Vol] 33.8 g/dL Normal 32.0 - 37.0 g/dL SW DxH 1600 MPL MCV (RBC) [Entitic vol] 93.1 fL Normal 80.0 - 100.0 fL SW DxH 1600 MPL Monocytes (Bld) [#/Vol] 0.80 10*3/uL Normal 0.10 - 1.00 x1000 SW DxH 1600 MPL Monocytes/100 WBC (Bld) 10.3 % Invalid Interpretation Code SW DxH 1600 MPL Neutrophils (Bld) [#/Vol] 5.70 10*3/uL Normal 1.40 - 8.80 x1000 SW DxH 1600 MPL Neutrophils/100 WBC (Bld) 73.0 % Invalid Interpretation Code SW DxH 1600 MPL Nucleated RBC Auto Ql (Bld) 0 /100WBC Invalid Interpretation Code SW DxH 1600 MPL Osmolality Calc [Osmolality] 290 mOsm/kg Normal 275 - 295 mOsm/kg ADM RES Platelet mean volume (Bld) [Entitic vol] 9.6 fL Normal 7.4 - 10.4 fL Dx 1600 MPL Platelets (Bld) [#/Vol] 198 10*3/uL Normal 150 - 450 x10^3/uL DxH 1600 MPL Potassium [Moles/Vol] 4.3 mmol/L Normal 3.5 - 5.1 mmol/L ADM RES RBC (Bld) [#/Vol] 4.17 10*6/uL Low 4.70 - 6.10 x10^6/uL Dx 1600 MPL Comment on above: Interpretive Data: N ote: RBC morphology is normal unless otherwise stated. Evaluation performed only if differential is requested. Sodium [Moles/Vol] 141 mmol/L Normal 135 - 145 mmol/L ADM RES Urea nitrogen [Mass/Vol] 19 mg/dL Normal 9 - 23 mg/dL [facility] RES Comment on above: Interpretive Data: - Venipuncture should occur prior to N- Acetyl Cysteine (NAC) or Metamizole (Sulpyrine) administration due to the potential for falsely depressed results. - Blood samples from some patients with monoclonal gammopathies may produce falsely elevated results Urea nitrogen/Creatinine [Mass ratio] 15.8 mg/mg Invalid Interpretation Code ADM RES WBC corrected for nucl RBC Auto (Bld) [#/Vol] 7.8 x10^3/uL Normal 4.5 - 11.0 x10^3/uL Dx 1600 MPL POC Glucoseon 02-20-2025 Glucose [Mass/Vol] 208 mg/dL High [address] Comment on above: Performed By: #### 1 [id number] #### [facility] [address] [place], [place] [id number] [employer] Investigator: Shin Flood MD Glucose [Mass/Vol] 152 mg/dL High [address] Comment on above: Performed By: #### 1 [id number] #### [facility] [address] [place], [place] [id number] [employer] And Explosion Investigator: Shin Flood MD Glucose [Mass/Vol] 170 mg/dL High [address] Comment on above: Performed By: #### 1 [id number] #### [facility] [address] [place], [place] [id number] [employer] And Explosion Investigator: Shin Flood MD Glucose [Mass/Vol] 143 mg/dL High 72-100 [facility] Comment on above: Performed By: #### 1 [id number] #### [facility] [address] [place], [place] [id number] [employer] And Explosion Investigator: Shin Flood MD Progress Note-Physicianmegan Progress Note-Physician JAME WLALACE :1965 Registration Date:02/19/2025 Subjective Seen today feeling much better he has heart failure with preserved ejection fraction his ejection fraction is around 55 to 60% so it is diastolic failure he has been taking Lasix we have had him on it and were continuing to titrate his medications he is now on losartan and cardiology is recommended also add SGLT2 SGLT 2 inhibitor continuing with Cipro every 12 hours for nephrolithiasis and UTI he is to have a procedure on Sunday so I want to keep him and keep tuning him up through the weekend to get him ready for his procedure cystoscopy and probably a J stent retrieval of the stone or or other procedures Review of Systems Constitutional: no fever, no chills, no sweats, no weakness Respiratory: no shortness of breath, no cough Cardiovascular: no chest pain Additional ROS info: Except as noted in the above Review of Systems and in the History of Present Illness all other systems have been reviewed and are negative or noncontributory. Objective Vitals & Measurements T: 36.6 ?C (Oral) TMIN: 36.4 ?C (Oral) TMAX: 36.6 ?C (Oral) HR: 128 (Apical) RR: 16 BP: 121/ 81 SpO2: 93% WT: 168.2 kg Physical Exam Vital Signs: Per nurse's notes. General: Alert, no acute distress. Skin: Warm, dry, pink. Head: Normocephalic, atraumatic. Neck: Supple, trachea midline. Eye: Pupils are equal, round and reactive to light. Cardiovascular: Regular rate and rhythm, normal peripheral perfusion. Respiratory: Lungs are clear to auscultation, respirations are non-labored. Psychiatric: Cooperative. Neurological: Alert and oriented to person, place, time, and situation. Medications Inpatient acetaminophen, 650 mg= 2 tabs, ORAL, [id number], PRN acetaminophen, 650 mg= 2 tabs, ORAL, [id number], PRN acetaminophen, 650 mg= 2 tabs, ORAL, [id number], PRN acetaminophen-oxycodone(ayad taminophen-oxycodone 325 mg-5 mg oral tablet = Percocet), 1 tabs, ORAL, [id number], PRN apixaban(Eliquis), 5 mg= 1 tabs, ORAL, ONCE aspirin(Aspirin Low Dose), 81 mg= 1 tabs, ORAL, DAILY WITH BREAKFAST atorvastatin(Lipitor), 40 mg= 1 tabs, ORAL, DAILY buPROPion(Wellbutrin SR, Zyban (buPROPion SR)), 100 mg= 1 tabs, ORAL, BID celecoxib(CeleBREX), 200 mg= 1 caps, ORAL, BID ciprofloxacin = Cipro, 500 mg= 1 tabs, ORAL, [id number] digoxin, 0.25 mg= 1 mL, IV Push, ONCE DULoxetine(Cymbalta), 60 mg= 1 caps, ORAL, DAILY furosemide(Lasix), 40 mg= 4 mL, IV Push, DAILY gabapentin(Neurontin), 400 mg= 1 caps, ORAL, TID glimepiride(Amaryl), 4 mg= 1 tabs, ORAL, DAILY WITH BREAKFAST glucagon, 1 mg, IM, PRN, PRN glucose(glucose 15 g/42 mL oral gel), 15 g= 1 packets, ORAL, PRN, PRN glucose(glucose 15 g/42 mL oral gel), 30 g= 2 packets, ORAL, PRN, PRN glucose(Dextrose 50% injection), 12.5 g= 25 mL, IV Push, PRN, PRN glucose(Dextrose 50% injection), 25 g= 50 mL, IV Push, PRN, PRN influenza virus vaccine, inactivated(influenza virus vaccine, inactivated preservative-free trivalent intramuscular suspension), 0.5 mL, IM, DAILY insulin lispro(Humalog coverage), Mild Scale, Subcutaneous, QIDWMHS ketorolac = Toradol, 10 mg= 1 tabs, ORAL, QID, PRN levothyroxine(Synthroid), 75 mcg= 1 tabs, ORAL, DAILY BEFORE BREAKFAST melatonin, 5 mg= 1 tabs, ORAL, QHS/[id number], PRN metFORMIN = Glucophage, 850 mg= 1 tabs, ORAL, BIDWM metoprolol(Lopressor = Metoprolol Tartrate), 37.5 mg= 1.5 tabs, ORAL, BID metoprolol(Lopressor = Metoprolol Tartrate), 5 mg= 5 mL, IV Push, [id number], PRN mirtazapine(Remeron), 7.5 mg= 1 tabs, ORAL, QHS multivitamin, 1 tabs, ORAL, DAILY naloxone = Narcan, 0.4 mg= 1 mL, IV Push, PRN, PRN ondansetron(ondansetron 4 mg oral tablet, disintegrating = Zofran), 4 mg= 1 tabs, ORAL, [id number], PRN tamsulosin(Flomax), 0.4 mg= 1 caps, ORAL, DAILY traMADol(Ultram), 50 mg= 1 tabs, ORAL, TID valsartan, 80 mg= 1 tabs, ORAL, DAILY Lab Results Test Name Test Result Date/Time BUN 19 mg/dL 02/20/2025 09:14 EDT Comments: - Venipuncture should occur prior to N-Acetyl Cysteine (NAC) or Metamizole (Sulpyrine) administration due to the potential for falsely depressed results. - Blood samples from some patients with monoclonal gammopathies may produce falsely elevated results Na 141 mmol/L 02/20/2025 09:14 EDT K4.3 mmol/L 02/20/2025 09:14 EDT Chloride 96 mmol/L 02/20/2025 09:14 EDT CO2, venous 40.0 mmol/L 02/20/2025 09:14 EDT Glucose 207 mg/dL 02/20/2025 09:14 EDT Creatinine 1.2 mg/dL 02/20/2025 09:14 EDT Estimated Creatinine Clearance 78.01 mL/min 02/20/2025 10:25 EDT Calcium 9.1 mg/dL 02/20/2025 09:14 EDT BUN/Creat Ratio 15.8 02/20/2025 09:14 EDT Calculated Osmolality 290 mOsm/kg 02/20/2025 09:14 EDT Glomerular Filtration Rate >60 mL/min/1.73m? 02/20/2025 09:14 EDT Comments: Non- GFR Calc, Medical judgement is necessary to interpret GFR (more content not included)... Normal [facility] Progress Note-Physician JAME WALLACE :1965 Registration Date:02/19/2025 Subjective Jame Wallace is a 59 yo male with a PMHx of T2DM, HTN, HLD, Hypothyroidism, who is showing symptoms of new CHF in the setting of nephrolithiasis. He had been having trouble sleeping, feeling short of breath, and swelling in his legs. 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 Yesterday, he complains of R lung pain that is sharp and lower back pain from the renal calculi. This lung pain has persisted today but is a bit better. He also started having episodes of afib. He was unaware of his HR increasing. He has not had any SOB or palpitations. He is unaware of any hx of afib. Review of Systems Gen- No fevers, fatigue, weight changes HEENT- denies changes in vision or hearing CV- endorses orthopnea, Denies chest pain, palpitations or tachycardia Resp- endorses shortness of breath, and mild cough, denies wheezes GI- Denies n/v/d/c - endorses pain from renal calculi, changes in urine, denies gross hematuria MSK- endorses mild swelling in the LE B/L, chronic LBP, R flank pain Objective Vitals & Measurements T: 36.4 ?C (Oral) TMIN: 36.4 ?C (Oral) TMAX: 36.5 ?C (Oral) HR: 130 (Apical) RR: 16 BP: 149/ 87 SpO2: 95% WT: 168.2 kg Physical Exam Gen-pleasant, INAD HEENT- NCAT, sclera non-icteric CV- HR tachycardic and irregular, systolic murmur appreciated, no gallops Resp- +crackles at the lung bases, mild wheeze in the upper left lobe MSK- radial pulse +2/4 on the R and +1/4 on the left, mild LE edema B/L Medications Inpatient acetaminophen, 650 mg= 2 tabs, ORAL, [id number], PRN acetaminophen-oxycodone(ayad taminophen-oxycodone 325 mg-5 mg oral tablet = Percocet), 1 tabs, ORAL, [id number], PRN aspirin(Aspirin Low Dose), 81 mg= 1 tabs, ORAL, DAILY WITH BREAKFAST atorvastatin(Lipitor), 40 mg= 1 tabs, ORAL, DAILY buPROPion(Wellbutrin SR, Zyban (buPROPion SR)), 100 mg= 1 tabs, ORAL, BID celecoxib(CeleBREX), 200 mg= 1 caps, ORAL, BID ciprofloxacin = Cipro, 500 mg= 1 tabs, ORAL, [id number] DULoxetine(Cymbalta), 60 mg= 1 caps, ORAL, DAILY enoxaparin(Lovenox), 40 mg= 0.4 mL, Subcutaneous, QHS furosemide(Lasix), 40 mg= 4 mL, IV Push, BID (DIURETIC) gabapentin(Neurontin), 400 mg= 1 caps, ORAL, TID glimepiride(Amaryl), 4 mg= 1 tabs, ORAL, DAILY WITH BREAKFAST glucagon, 1 mg, IM, PRN, PRN glucose(glucose 15 g/42 mL oral gel), 15 g= 1 packets, ORAL, PRN, PRN glucose(glucose 15 g/42 mL oral gel), 30 g= 2 packets, ORAL, PRN, PRN glucose(Dextrose 50% injection), 12.5 g= 25 mL, IV Push, PRN, PRN glucose(Dextrose 50% injection), 25 g= 50 mL, IV Push, PRN, PRN insulin lispro(Humalog coverage), Mild Scale, Subcutaneous, QIDWMHS ketorolac = Toradol, 10 mg= 1 tabs, ORAL, QID, PRN levothyroxine(Synthroid), 75 mcg= 1 tabs, ORAL, DAILY BEFORE BREAKFAST melatonin, 5 mg= 1 tabs, ORAL, QHS/[id number], PRN metFORMIN = Glucophage, 850 mg= 1 tabs, ORAL, BIDWM metoprolol(Lopressor = Metoprolol Tartrate), 37.5 mg= 1.5 tabs, ORAL, BID mirtazapine(Remeron), 7.5 mg= 1 tabs, ORAL, QHS multivitamin, 1 tabs, ORAL, DAILY naloxone = Narcan, 0.4 mg= 1 mL, IV Push, PRN, PRN ondansetron(ondansetron 4 mg oral tablet, disintegrating = Zofran), 4 mg= 1 tabs, ORAL, [id number], PRN tamsulosin(Flomax), 0.4 mg= 1 caps, ORAL, DAILY traMADol(Ultram), 50 mg= 1 tabs, ORAL, TID valsartan, 80 mg= 1 tabs, ORAL, DAILY Lab Results Test Name Test Result Date/Time BUN 19 mg/dL 02/20/2025 09:14 EDT Na 141 mmol/L 02/20/2025 09:14 EDT K 4.3 mmol/L 02/20/2025 09:14 EDT Chloride 96 mmol/L 02/20/2025 09:14 EDT CO2, venous 40.0 mmol/L 02/20/2025 09:14 EDT Glucose 207 mg/dL 02/20/2025 09:14 EDT Creatinine 1.2 mg/dL 02/20/2025 09:14 EDT Estimated Creatinine Clearance 78.01 mL/min 02/20/2025 10:25 EDT Calcium 9.1 mg/dL 02/20/2025 09:14 EDT BUN/Creat Ratio 15.8 02/20/2025 09:14 EDT Calculated Osmolality 290 mOsm/kg 02/20/2025 09:14 EDT Troponin HS Single Draw 10 pg/mL 02/19/2025 16:09 EDT Glomerular Filtration Rate >60 mL/min/1.73m? 02/20/2025 09:14 EDT GFR AA >60 02/20/2025 09:14 EDT D Dimer HS 630 ng/mL FEU 02/19/2025 16:09 EDT Comments: Exclusion of PE and DVT The D Dimer HS assay is reported in ng/ml Fibrinogen Equivalent Units (FEU). Per transcription specialist?s instructions for use, a value less than 500ng/ml (FEU) may help to exclude DVT and /or PE in outpatients when the assay is used with a clinical pretest probability assessment. D-Dimer used for DIC Screens Assay results should be used with other information, including the clinical context in forming a diagnosis. WBC 7.8 x103/uL 02/20/2025 09:14 EDT RBC 4.17 x106/uL 02/20/2025 09:14 EDT HG (more content not included)... Normal [facility] Progress Note-Physician Patient: JAME WALLACE Age: 59 years Sex: Male : 1965 Associated Diagnoses: None Author: TERRIE LINARES PA-C Subjective Follow-up right ureteral stone No acute stone pain or renal colic Voiding without difficulty No hematuria or dysuria No nausea or vomiting He is scheduled for ESWL 02/23 Objective VS/Measurements Vital Signs (last 24 hrs) Last Charted Temp Oral 36.4 degC (FEB 20 06:58) Heart Rate Apical L 55 bpm (FEB 20 08:44) Resp Rate 20 br/min (FEB 20 06:58) SBP H 154 mmHg (FEB 20 06:58) DBP H 84 mmHg (FEB 20 06:58) General: Alert and oriented, No acute distress. Respiratory: Supplemental oxygen via nasal cannula. Genitourinary: Bedside urinal with clear yellow urine. Psychiatric: Cooperative, Appropriate mood & affect. Assessment Interpretation of Results Laboratory: Labs (Last four charted values) WBC 7.8 (FEB 18) Hgb L 12.3 (FEB 18) Hct L 37.0 (FEB 18) Plt 178 (SEP 18) Na 143 (SEP 18) K 4.0 (SEP 18) CO2 H 33.0 (SEP 18) Cl 102 (SEP 18) Cr H 1.2 (SEP 18) BUN 21 (FEB 18) Glucose Random H 117 (FEB 18) Ca 9.2 (FEB 18) . Plan R proximal ureteral stone - No acute surgical intervention as pain is currently well controlled, no evidence of infection - Will order repeat BMP and CBC to confirm stability of labs - Patient scheduled for R ESWL 02/23, plan to proceed as scheduled as long as medically stable - Continue Flomax - Pain control as needed - Continue Cipro as prescribed, would be reasonable to discharge patient with acute course given pending urologic procedure Sunday Will review labs once finalized. OK for discharge from standpoint with outpatient follow up as scheduled, will make sure surgery scheduling team and surgeon aware of current admission. Exam / procedure done by: NICOLLE, SCRIBING MACHINE OPERATOR, resident under supervision of attending Physician. Sent to for review: DANI ROPER MD [facility] 6 Clicks Basic [facility]2025 [facility] 6 Clicks Basic Mobility AM-PAC 6 Clicks Basic Mobility Entered On: 02/19/2025 11:40 EDT Performed On: 02/19/2025 11:39 EDT by Farzad Plata RN AM-PAC 6 clicks Basic Mobility How much help from another person does the patient currently need... Turning from your back to your side while in a flat bed without using bedrails? : None Moving from lying on your back to sitting on the side of a flat bed without using bedrails? : None Moving to and from a bed to a chair (including a wheelchair)? : A Little Standing up from a chair using your arms (e.g., wheelchair, or bedside chair)? : A Little Walking in hospital room? : A Little Climbing 3-5 steps with a railing? : A Little Farzad Plata RN - 02/19/2025 11:39 EDT AM-PAC Raw Score : 20 Farzad Plata RN - 02/19/2025 11:39 EDT [facility] Comment on above: Order Comment: Order placed by discern rule ADMIT_MOBILITY_SCREEN_ORD [facility] 6 Clicks Basic Mobility AM-PAC 6 Clicks Basic Mobility Entered On: 02/19/2025 2:40 EDT Performed On: 02/19/2025 2:40 EDT by Raman Pleitez RN AM-PAC 6 clicks Basic Mobility How much help from another person does the patient currently need... Turning from your back to your side while in a flat bed without using bedrails? : None Moving from lying on your back to sitting on the side of a flat bed without using bedrails? : None Moving to and from a bed to a chair (including a wheelchair)? : None Standing up from a chair using your arms (e.g., wheelchair, or bedside chair)? : None Walking in hospital room? : None Climbing 3-5 steps with a railing? : None Raman Pleitez RN - 02/19/2025 2:40 EDT AM-PAC Raw Score : 24 Raman Pleitez RN - 02/19/2025 2:40 EDT Normal [facility] Comment on above: Order Comment: Order placed by discern rule ADMIT_MOBILITY_SCREEN_ORD AUTO DIFFon 02-19-2025 Baso Count 0.05 x1000 Normal 0.00-0.20 [facility] Comment on above: Performed By: #### 1 [id number] #### [facility] [address] [place], [place] [id number] Fire And Explosion Investigator: Shin Flood MD Basos % 0.7 % Normal [facility] Comment on above: Performed By: #### 1 [id number] #### [facility] [address] [place] [id number] Fire And Explosion Investigator: Shin Flood MD Eos Count 0.20 x1000 Normal 0.00-0.50 [facility] Comment on above: Performed By: #### 1 [id number] #### [facility] [address] [place] [id number] Fire And Explosion Investigator: Shin Flood MD Eosinophils/100 WBC (Bld) 2.6 % Normal [facility] Comment on above: Performed By: #### 1 [id number] #### [facility] [address] [place] [id number] Fire And Explosion Investigator: Shin Flood MD Lymph Count 1.57 x1000 Normal 1.20-4.80 [facility] Comment on above: Performed By: #### 1 [id number] #### [facility] [address] [place] [id number] Fire And Explosion Investigator: Shin Flood MD Lymphocytes/100 WBC (Bld) 20.2 % Normal [facility] Comment on above: Performed By: #### 1 [id number] #### [facility] [address] [place] [address] Fire And Explosion Investigator: Shin Flood MD Mcclain Count 0.92 x1000 Normal 0.10-1.00 [facility] Comment on above: Performed By: #### 1 [id number] #### [facility] [address] [place] [address] Fire And Explosion Investigator: Shin Flood MD Monocytes/100 WBC (Bld) 11.9 % Normal [facility] Comment on above: Performed By: #### 1 [id number] #### [facility] [address] [place] [id number] Fire And Explosion Investigator: Shin Flood MD Neutrophil Count (ANC) 5.01 x1000 Normal 1.40-8.80 [facility] Comment on above: Performed By: #### 1 [id number] #### [facility] [address] [place] [address] Fire And Explosion Investigator: Shin Flood MD Neutrophils/100 WBC (Bld) 64.6 % Normal [facility] Comment on above: Performed By: #### 1 [id number] #### [facility] [address] [place] [id number] Fire And Explosion Investigator: Shin Flood MD Admission Assessment Adulton 02-19-2025 Admission Assessment Adult Adult Admission Data Entered On: 02/19/2025 2:40 EDT Performed On: 02/19/2025 1:50 EDT by Raman Pleitez RN Patient Safety Grid ID Band on and Verified : Yes Allergy Certified Orthotist : No Latex Tote : No Diabetic Certified Orthotist : Yes Fall Risk Certified Orthotist : Yes No Blood Certified Orthotist : No Restricted Extremity Band On : No Raman Pleitez RN - 02/19/2025 2:38 EDT (As Of: 02/19/2025 04:29:42 EDT) Allergies (Active) No Known Allergies Estimated Onset Date: Unspecified ; Created By: Anabella Michael RN; Reaction Status: Active ; Category: Drug ; Substance: No Known Allergies ; Type: Allergy ; Updated By: Anabella Michael RN; Source: Patient ; Reviewed Date: 02/19/2025 2:47 EDT Subjective Pain Symptoms : Yes Numeric Pain Scale Acceptable Intensity : 0 = No Pain Question Ability to Self Report Pain : No Unable to Self Report Pain : No General Symptoms : None Sensory Deficits : None Cardiopulmonary Symptoms : Shortness of breath GI Symptoms : None Skin Symptoms : None Genitourinary Symptoms : None Neuromuscular Symptoms : None Abuse/Violence Concerns? : Patient denies Anabella Michael RN - 02/19/2025 3:00 EDT Depression Screening Patient able to verbalize? : Yes Feeling Down, Depressed, Hopeless : Not at all Little Interest - Pleasure in Activities : Not at all Initial Depression Screen Score : 0 Depression Screening Score 0 : No IP Pt being evaluated or treated for BH conditions : No Anabella Michael RN - 02/19/2025 3:00 EDT Rapid Pain Data 202052 Primary Pain Location : Generalized (Comment: pt's lower back, kidney stone area [Anabella Michael RN - 02/19/2025 3:00 EDT] ) Numeric Pain Scale : 8 = Severe Pain Numeric Pain Score : 8 Primary Pain Aggravating Factors : Movement Primary Pain Alleviating Factors : Medications, Repositioning Interventions : Rest Anabella Michael RN - 02/19/2025 3:00 EDT Dewey Coma Eye Opening Response Dewey : Spontaneously Best Verbal Response Starke : Oriented Best Motor Response Dewey : Obeys simple commands Dewey Coma Score : 15 Raman Pleitez RN 02/19/2025 2:38 EDT Neuro Characteristics of Speech : Clear Orientation : Oriented x 3 Level of Consciousness : Alert Affect / Behavior : Calm Sensory Perception Maicol : Slightly limited Extremity Movement : Equal Gait : Steady Aspiration Risk : None CN VII Facial Expression and Symmetry : Facial movement symmetrical Raman Pleitez RN 02/19/2025 2:38 EDT CardioVascular Heart Rhythm : Regular Capillary Refill : Less than 2 seconds Edema : Generalized Maik GUSTAFSON, [facility] 02/19/2025 2:38 EDT Respiratory Respirations : Unlabored Respiratory Pattern Description : Regular Maik GUSTAFSON, [facility] 02/19/2025 2:38 EDT WILLIAM : Clear LLL : Diminished RUL : Clear RML : Diminished RLL : Diminished Maik GUSTAFSON, [facility] 02/19/2025 2:38 EDT Cough : None Maik GUSTAFSON, [facility] 02/19/2025 2:38 EDT Musculoskeletal Activity Maicol : Walks occasionally Mobility Maicol : Slightly limited Ambulatory Devices : None Special Orthopedic Devices : None ADLs : Independent Maik GUSTAFSON, [facility] 02/19/2025 2:38 EDT GI Abdomen Description : Symmetric Abdomen Palpation : Soft Maik GUSTAFSON, [facility] 02/19/2025 2:38 EDT Bowel Sounds Grid LUQ : Present RUQ : Present LLQ : Present RLQ : Present Maik GUSTAFSON, [facility] 02/19/2025 2:38 EDT Passing Flatus : Yes Bowel Movement Last Date Known : Yes Bowel Movement Last Date : 02/18/2025 EDT Maik GUSTAFSON, [facility] 02/19/2025 2:38 EDT Bladder Distention : Absent Maik GUSTAFSON, [facility] 02/19/2025 2:38 EDT Integumentary Skin Integrity : Intact Skin Temperature : Warm Skin Color : Mark[place] Skin Turgor : Elastic Mucous Membrane Color : [place] Mucous Membrane Description : Moist Skin Description : Dry Maik GUSTAFSON, [facility] 02/19/2025 2:38 EDT Present on Admission Medical Devices : None Medical Devices for Med Administration : None Maik GUSTAFSON, [facility] 02/19/2025 2:38 EDT Education Responsible Learner/s Present : No Data Available Owens Learner/Caregiver Present for Session : No Barriers to Learning : None evident TeachBack Methodology : Stanley Ledesma RN, Ashley 02/19/2025 3:00 EDT Activity Expectations : Verbalizes understanding Orientation to Unit/Room : Verbalizes understanding Pain Management : Verbalizes understanding Patient Participation in Treatment : Verbalizes understanding Patient Rights/Responsibilities : Verbalizes understanding Physical Limitations : Verbalizes understanding Plan of Care : Verbalizes understanding Safety, Fall : Verbalizes understanding Unit Procedures : Verbalizes understanding Roxy Desouza RN, Anabella - 02/19/2025 3:00 EDT Notifications PCP notified of your admission? : Yes Emergency Contact notified of your admission? : Anabella Morrissey RN - 02/19/2025 3:00 EDT Normal [facility] Comment on above: Order Comment: Order entered secondary to admissionVN completed workflow tasks. BN to complete physical assessment B TYPE PEPon 02-19-2025 Natriuretic peptide B (Bld) [Mass/Vol] 326 pg/mL High 0-100 [facility] Comment on above: Performed By: #### 3 [id number] #### [facility] [address] [place] [address] Fire And Explosion Investigator: Shin Flood MD Basic Admission Informationo 02-19-2025 Basic Admission Information Basic Admission Information Entered On: 02/19/2025 2:16 EDT Performed On: 02/19/2025 2:14 EDT by Glenis Andre Admission Height/Weight Height/Length Measured : 187.96 cm(Converted to: 6.17 ft, 74.00 in) Height/Length Dosing : 187.96 cm(Converted to: 6.17 ft, 74.00 in) Weight Measured : 174.4 kg(Converted to: 384 lb 8 oz, 384.486 lb) Weight Dosing : 174.4 kg(Converted to: 6,151.780 oz, 384.486 lb) BSA Measured : 3.02 BSA Dosing : 3.02 Body Mass Index Measured : 49.36 kg/m2 Body Mass Index Dosing : 49 Weight Measured Type of Scale : Bed Scale (digital) Last Documented Height/Length : Height/Length Estimated: No results available. Height/Length Measured: No results available. Height/Length Dosing: No results available. Last Documented Weight and Type of Scale Used : Weight Measured Type of Scale: No results available. Weight Measured: No results available. Weight Dosing: No results available. Glenis Andre - 02/19/2025 2:14 EDT Belongings Valuables/Belongings Grid Valuables at Bedside Clothes : Pants, Shirt, Shoes, Undergarments Electronic Devices : Cell phone Glenis Andre - 02/19/2025 2:14 EDT Room Orientation/Facility Policy Reviewed : Yes Room Orientation/Policy Reviewed With : Patient Patient Safety : Bed / Chair Alarm, Bed in low position, Call device within reach, Fall ip technology transactions attorney ID Band, [place], ID band check, Mobility support items readily available, Night light, Non-Slip footwear, Personal items within reach, Sensory aids within reach, Upper/Half-length side-rails up, Traffic path in room free of clutter, Wheels locked Demonstrates Ability to Use Call Light Successfully : Yes Glenis Andre - 02/19/2025 2:14 EDT Normal [facility] Comment on above: Order Comment: Order entered secondary to admission COMPMETAon 02-19-2025 Albumin [Mass/Vol] 3.1 g/dL Low 3.4-5.0 [facility] Comment on above: Performed By: #### 1 [id number] #### [facility] [address] [place] [address] Fire And Explosion Investigator: Shin Flood MD Albumin/Globulin [Mass ratio] 0.9 {ratio} Normal [facility] Comment on above: Performed By: #### 1 [id number] #### [facility] [address] [place], [place] [id number] Fire And Explosion Investigator: Shin Flood MD Alk Phos 96 unit/L Normal 45-117 [facility] Comment on above: Performed By: #### 1 [id number] #### [facility] [address] [place], [place] [id number] Fire And Explosion Investigator: Shin Flood MD Bilirubin [Mass/Vol] 0.50 mg/dL Normal 0.30-1.20 [facility] Comment on above: Result Comment: Use of this assay is not recommended for patients undergoing treatment with eltrombopag due to the potential for falsely elevated results. Performed By: #### 1 [id number] #### [facility] [address] [place], [place] [id number] Fire And Explosion Investigator: Shin Flood MD Calcium [Mass/Vol] 9.2 mg/dL Normal 8.7-10.4 [facility] Comment on above: Performed By: #### 1 [id number] #### [facility] [address] [place] [address] Fire And Explosion Investigator: Shin Flood MD Chloride [Moles/Vol] 102 mmol/L Normal 98-107 [facility] Comment on above: Performed By: #### 1 [id number] #### [facility] [address] [place] [address] Fire And Explosion Investigator: Shin Flood MD CO2 [Moles/Vol] 33.0 mmol/L High 20.0-31.0 [facility] Comment on above: Performed By: #### 1 [id number] #### [facility] [address] [place] [address] Fire And Explosion Investigator: Shin Flood MD Creatinine [Mass/Vol] 1.2 mg/dL High 0.6-1.1 [facility] Comment on above: Performed By: #### 1 [id number] #### [facility] [address] [place] [address] Fire And Explosion Investigator: Shin Flood MD GFR AA >60 Normal [facility] Comment on above: Result Comment: Afri can Fijian GFR Calc Medical judgement is necessary to interpret GFR. The calculated GFR may not accurately reflect renal status in patients >70 years, women, acutely ill hospitalized patients and patients with acute renal failure or known renal disease. The MDRD GFR formula is valid only for adults greater than 18 years of age. Note: Creatinine clearance (not GFR) should be used for drug dosing. Calculated result performed using the MDRD GFR equation Performed By: #### 1 [id number] #### [facility] [address] [place] [address] [employer] And Explosion Investigator: Shin Flood MD Globulin (S) [Mass/Vol] 3.4 g/dL Normal [facility] Comment on above: Performed By: #### 1 [id number] #### [facility] [address] [place] [address] [employer] And Explosion Investigator: Shin Flood MD Glomerular Filtration Rate >60 Normal [facility] Comment on above: Result Comment: Non- GFR Calc Medical judgement is necessary to interpret GFR. The calculated GFR may not accurately reflect renal status in patients >70 years, women, acutely ill hospitalized patients and patients with acute renal failure or known renal disease. The MDRD GFR formula is valid only for adults greater than 18 years of age. Note: Creatinine clearance (not GFR) should be used for drug dosing. Calculated result performed using the MDRD GFR equation Performed By: #### 1 [id number] #### [facility] [address] [place] [id number] [employer] And Explosion Investigator: Shin Flood MD Glucose [Mass/Vol] 117 mg/dL High 74-106 [facility] Comment on above: Performed By: #### 1 [id number] #### [facility] [address] [place] [address] [employer] And Explosion Investigator: Shin Flood MD GOT 18 unit/L Normal 15-37 [facility] Comment on above: Performed By: #### 1 [id number] #### [facility] [address] [place] [address] [employer] And Expl[employer] Investigator: Shin Flood MD GPT 15 unit/L Normal 10-49 [facility] Comment on above: Performed By: #### 1 [id number] #### [facility] [address] [place] [address] [employer] And [employer] Investigator: Shin Flood MD Osmolality [Osmolality] 289 mosm/kg Normal 275-295 [facility] Comment on above: Performed By: #### 1 [id number] #### [facility] [address] [place] [address] [employer] And Explosion Investigator: Shin Flood MD Potassium [Moles/Vol] 4.0 mmol/L Normal 3.5-5.1 [facility] Comment on above: Performed By: #### 1 [id number] #### [facility] [address] [place] [address] [employer] And Explosion Investigator: Shin Flood MD Protein [Mass/Vol] 6.5 g/dL Normal 5.7-8.2 [facility] Comment on above: Result Comment: Tota l Protein results may be increased in patients receiving dextran as a blood volume capsule filler Performed By: #### 1 [id number] #### [facility] [address] [place] [address] [employer] Expl[employer] Investigator: Shin Flood MD Sodium [Moles/Vol] 143 mmol/L Normal 135-145 [facility] Comment on above: Performed By: #### 1 [id number] #### [facility] [address] [place] [address] [employer] And [employer] Investigator: Shin Flood MD Urea nitrogen [Mass/Vol] 21 mg/dL Normal 9-23 [facility] Comment on above: Result Comment: - Ve nipuncture should occur prior to N-Acetyl Cysteine (NAC) or Metamizole (Sulpyrine) administration due to the potential for falsely depressed results. - Blood samples from some patients with monoclonal gammopathies may produce falsely elevated results Performed By: #### 1 [id number] #### [facility] [address] [place] [address] [employer] And Explosion Investigator: Shin Flood MD Urea nitrogen/Creatinine [Mass ratio] 17.5 mg/mg Normal [facility] Comment on above: Performed By: #### 1 [id number] #### [facility] [address] [place] [address] [employer] And Explosion Investigator: Shin Flood MD Consult Reporton 02-19-2025 Consult Report JAME WALLACE :1965 Registration Date:02/19/2025 Chief Complaint New onset hypoxia Reason for Consultation New CHF History of Present Illness Jame Wallace is a 59 yo male with a PMHx of T2DM, HTN, HLD, Hypothyroidism, and ADDY who is showing symptoms of new CHF in the setting of nephrolithiasis. He went to the ED 02/16 3 days ago with pain from known renal calculi. He is scheduled for laser treatment and stenting next week but could not wait because of the pain. When the cartography/mapping technician laid him down for KUB Xray, his O2 went down to 67% and took time to come back up. He was then discharged with pain management for nephrolithiasis. When he got home, he had been having trouble sleeping, feeling short of breath, and swelling in his legs so he decided to come back to the ED. 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 Today, he complains of R lung pain that is sharp and lower back pain from the renal calculi. He has felt short of breath as well. Review of Systems Gen- No fevers, fatigue, weight changes HEENT- denies changes in vision or hearing CV- endorses new onset orthopnea, Denies chest pain, palpitations or tachycardia Resp- endorses shortness of breath, and mild cough, denies wheezes GI- Denies n/v/d/c - endorses pain from renal calculi, changes in urine, denies gross hematuria MSK- endorses mild swelling in the LE B/L, chronic LBP, R flank pain Physical Exam Vitals & Measurements T: 36.4 ?C (Oral) TMIN: 36.4 ?C (Oral) TMAX: 36.9 ?C (Oral) HR: 68 (Monitored) RR: 17 BP: 153/ 86 SpO2: 97% WT: 174.4 kg WT: 174.4 kg (Dosing) BMI: 49.36 Gen-pleasant, INAD HEENT- NCAT, sclera non-icteric CV- HR regular, systolic murmur appreciated, no gallops Resp- +crackles at the lung bases, mild wheeze in the upper left lobe MSK- radial pulse +2/4 on the R and +1/4 on the left, mild LE edema B/L Assessment/Plan This Visit Diagnosis New onset orthopnea DDx: 1. CHF 2. PE 3. ADDY 4. Pneumonia With the pt's history of HTN, T2DM, ADDY, and obesity, and elevated BNP 326, new onset CHF is likely. The stress and pain from nephrolithiasis, UTI, and uncontrolled ADDY could have exacerbated his condition. Cannot r/o PE -Echocardiogram -EKG- has been on tele- may have wide complex -CXR -Labs- D-Dimer -keep O2 >95%, try to wean O2 as tolerated -New Medications- Lasix 20mg, start losartan 25mg (his BP's at home have been normal) -Continue metoprolol tartrate 37.5 BID T2DM -Consider switching glimiperide or pioglitazone to SGLT2 once renal sx have resolved -Continue to monitor BG Nephrolithiasis/UTI/BHAVYA -Continue acetaminophen 650Q4H PRN, acetaminophen-oxy 325-5mg Q6H PRN, and tamsulosin .4 QHS -Avoid NSAIDs -Continue Cipro 500mg Q12H Problem List/Past Medical History Ongoing Acute kidney injury Body mass index 40+ - severely obese Chronic low back pain Degeneration of lumbar intervertebral disc Depressive disorder Diabetes mellitus Dyspnea Generalized osteoarthritis Gout Hyperlipidemia Hypertensive disorder Hypothyroidism Hypoxia Insomnia Kidney stone Lumbosacral radiculopathy Neuropathy due to diabetes mellitus Obstructive sleep apnea syndrome 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 Raynaud's disease Historical Body mass index 30+ - obesity H/O: raised blood lipids H/O: respiratory disease Injury of ankle Injury of foot Sprain of ankle Procedure/Surgical History sigmoid colectomy gallbladder removed pin placed in right foot Medications Inpatient acetaminophen, 650 mg= 2 tabs, ORAL, [id number], PRN acetaminophen-oxycodone(ayad taminophen-oxycodone 325 mg-5 mg oral tablet = Percocet), 1 tabs, ORAL, [id number], PRN aspirin(Aspirin Low Dose), 81 mg= 1 tabs, ORAL, DAILY WITH BREAKFAST ciprofloxacin = Cipro, 500 mg= 1 tabs, ORAL, [id number] enoxaparin(Lovenox), 40 mg= 0.4 mL, Subcutaneous, QHS furosemide(Lasix), 40 mg= 4 mL, IV Push, BID (DIURETIC) glucagon, 1 mg, IM, PRN, PRN glucose(glucose 15 g/42 mL oral gel), 15 g= 1 packets, ORAL, PRN, PRN glucose(glucose 15 g/42 mL oral gel), 30 g= 2 packets, ORAL, PRN, PRN glucose(Dextrose 50% injection), 12.5 g= 25 mL, IV Push, PRN, PRN glucose(Dextrose 50% injection), 25 g= 50 mL, IV Push, PRN, PRN insulin lispro(Humalog coverage), Mild Scale, Subcutaneous, QIDWMHS ketorolac = Toradol, 10 mg= 1 tabs, ORAL, QID, PRN melatonin, 5 mg= 1 tabs, ORAL, QHS/[id number], PRN naloxone = Narcan, 0.4 mg= 1 mL, IV Push, PRN, PRN ondansetron(ondansetron 4 mg oral tablet, disintegrating = Zofran), 4 mg= 1 tabs, ORAL, [id number], PRN traMADol(Ultram), 50 mg= 1 tabs, ORAL, TID Home acetaminophen-oxycodone(Per cocet 5 mg-325 mg oral tablet), 1 tabs, ORAL, [id number], PRN atorvastatin(Lipitor 40 mg oral tablet), 40 mg= 1 tabs, ORAL, D (more content not included)... Normal [facility] Comment on above: Order Comment: submi tted other note Result Comment: Wesly Med-StudentBeena on Consult Report JAME WALLACE :1965 Registration Date:02/19/2025 Chief Complaint New onset hypoxia Reason for Consultation New CHF History of Present Illness Jame Wallace is a 59 yo male with a PMHx of T2DM, HTN, HLD, Hypothyroidism, and ADDY who is showing symptoms of new CHF in the setting of nephrolithiasis. He went to the ED 02/16 3 days ago with pain from known renal calculi. He is scheduled for laser treatment and stenting next week but could not wait because of the pain. When the cartography/mapping technician laid him down for KUB Xray, his O2 went down to 67% and took time to come back up. He was then discharged with pain management for nephrolithiasis. When he got home, he had been having trouble sleeping, feeling short of breath, and swelling in his legs so he decided to come back to the ED. 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 Today, he complains of R lung pain that is sharp and lower back pain from the renal calculi. He has felt short of breath as well. Review of Systems Gen- No fevers, fatigue, weight changes HEENT- denies changes in vision or hearing CV- endorses new onset orthopnea, Denies chest pain, palpitations or tachycardia Resp- endorses shortness of breath, and mild cough, denies wheezes GI- Denies n/v/d/c - endorses pain from renal calculi, changes in urine, denies gross hematuria MSK- endorses mild swelling in the LE B/L, chronic LBP, R flank pain Physical Exam Vitals & Measurements T: 36.4 ?C (Oral) TMIN: 36.4 ?C (Oral) TMAX: 36.9 ?C (Oral) HR: 68 (Monitored) RR: 17 BP: 153/ 86 SpO2: 97% WT: 174.4 kg WT: 174.4 kg (Dosing) BMI: 49.36 Gen-pleasant, INAD HEENT- NCAT, sclera non-icteric CV- HR regular, systolic murmur appreciated, no gallops Resp- +crackles at the lung bases, mild wheeze in the upper left lobe MSK- radial pulse +2/4 on the R and +1/4 on the left, mild LE edema B/L Assessment/Plan This Visit Diagnosis New onset orthopnea DDx: 1. CHF 2. PE 3. ADDY 4. Pneumonia With the pt's history of HTN, T2DM, ADDY, and obesity, and elevated BNP 326, new onset CHF is likely. The stress and pain from nephrolithiasis, UTI, and uncontrolled ADDY could have exacerbated his condition. Cannot r/o PE -Echocardiogram -EKG- has been on tele- -CXR -Labs- D-Dimer -keep O2 >95%, try to wean O2 as tolerated -New Medications- Lasix 20mg, start losartan 25mg (his BP's at home have been normal) -Continue metoprolol tartrate 37.5 BID T2DM -Consider switching glimiperide or pioglitazone to SGLT2 once renal sx have resolved -Continue to monitor BG Nephrolithiasis/UTI/BHAVYA -Continue acetaminophen 650Q4H PRN, acetaminophen-oxy 325-5mg Q6H PRN, and tamsulosin .4 QHS -Avoid NSAIDs -Continue Cipro 500mg Q12H I personally performed a face to face evaluation of the patient, and agree with the assessment and plan created by Beena Jarrell. My findings are below. Lungs diminished Clinically suspect HFpEF He most likely has ADDY and should be tested as outpatient; his PCP is in [place] and I wrote him out name/number for evaluation here if interested IV diuresis Needs to be more cognizant of sodium intake Wean oxygen as tolerated ECHO Check d dimer Normal [facility] Consult Report JAME WALLACE :1965 Registration Date:02/19/2025 Chief Complaint CHF Exacerbation Reason for Consultation R ureteral stone History of Present Illness 59-year-old male known to [facility] urology, Patient directly admitted late last night from [place] for CHF exacerbation Urology consulted for known right ureteral stone. Patient was evaluated in [facility] 02/16/2025 for worsening right sided flank pain. He was previously seen prior to 02/16 at [place] ED for 8 mm right ureteral stone at the [facility]. He was discharged from [facility] ED with plan to proceed with right ESWL as scheduled on 02/23. There is no imaging to review. Labs today show no leukocytosis and stable creatinine. No new urinalysis although 02/16/2025 UA not suggestive of infection Upon consultation this morning patient reports he is not acutely bothered by right sided stone Has intermittent RIGHT back pain but this is stable and controlled No dysuria Endorses hematuria Denies fevers, chills, vomiting. Does endorse intermittent nausea. Given lack of acute renal colic, he feels it is reasonable to proceed with surgical intervention as scheduled on Sunday Review of Systems + Hematuria - Fevers, chills, vomiting, dysuria Physical Exam Vitals & Measurements T: 36.4 ?C (Oral) TMIN: 36.4 ?C (Oral) TMAX: 36.9 ?C (Oral) HR: 64 (Peripheral) RR: 17 BP: 153/ 86 SpO2: 97% WT: 174.4 kg WT: 174.4 kg (Dosing) BMI: 49.36 No acute distress Supplemental oxygen via nasal canula Assessment/Plan This Visit Diagnosis R proximal ureteral stone - No acute surgical intervention as pain is currently well controlled, no evidence of infection, creatinine stable - Patient scheduled for R ESWL 02/23, plan to proceed as scheduled as long as medically stable - Continue Flomax - Pain control as needed - Discussed with nursing Thank you for this consultation, we will follow Problem List/Past Medical History Ongoing Acute kidney injury Acute left otitis media Acute respiratory failure Asthenia Basal cell carcinoma of skin in situ Benign neoplasm of colon Bite of venomous spider Body mass index 40+ - severely obese Bronchitis Cellulitis and abscess of buttock Chronic low back pain Closed fracture of epiphyseal plate of metatarsal bone Closed fracture of fifth metatarsal bone Contusion of head COVID-19 Degeneration of lumbar intervertebral disc Depressive disorder Diabetes mellitus Disorder following viral disease Disorder of joint of spine Diverticulitis Dizziness Dyspnea Fever Folliculitis Generalized osteoarthritis Gout Hyperlipidemia Hypertensive disorder Hypothyroidism Hypoxia Increased frequency of urination Injury of shoulder and/or upper arm Insomnia Intractable ophthalmic migraine Kidney stone Leukocytosis Low back strain Lumbar radiculopathy Lumbosacral radiculopathy Maxillary sinusitis Morbid obesity Neuropathy due to diabetes mellitus Non-healing surgical wound Obstructive sleep apnea syndrome Osteoarthritis Pain Pain of knee region Paralysis of diaphragm Patient encounter status 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 Pneumonia caused by SARS-CoV-2 Post-acute COVID-19 Raynaud's disease Rheumatoid arthritis - hand joint Sebaceous cyst of skin Severe obesity Spinal stenosis of lumbar region Strain of neck muscle Testosterone level below reference range Umbilical discharge Uncontrolled type 2 diabetes mellitus Unsteady when walking Weight decreased Wheezing Historical Body mass index 30+ - obesity H/O: raised blood lipids H/O: respiratory disease Injury of ankle Injury of foot Sprain of ankle Procedure/Surgical History sigmoid colectomy gallbladder removed pin placed in right foot Medications Inpatient acetaminophen, 650 mg= 2 tabs, ORAL, [id number], PRN acetaminophen, 650 mg= 2 tabs, ORAL, [id number], PRN acetaminophen, 650 mg= 2 tabs, ORAL, [id number], PRN acetaminophen-oxycodone(ayad taminophen-oxycodone 325 mg-5 mg oral tablet = Percocet), 1 tabs, ORAL, [id number], PRN aspirin(Aspirin Low Dose), 81 mg= 1 tabs, ORAL, DAILY WITH BREAKFAST atorvastatin(Lipitor), 40 mg= 1 tabs, ORAL, DAILY buPROPion(Wellbutrin SR, Zyban (buPROPion SR)), 100 mg= 1 tabs, ORAL, BID celecoxib(CeleBREX), 200 mg= 1 caps, ORAL, BID ciprofloxacin = Cipro, 500 mg= 1 tabs, ORAL, [id number] DULoxetine(Cymbalta), 60 mg= 1 caps, ORAL, DAILY enoxaparin(Lovenox), 40 mg= 0.4 mL, Subcutaneous, QHS furosemide(Lasix), 40 mg= 4 mL, IV Push, BID (DIURETIC) gabapentin(Neurontin), 400 mg= 1 caps, ORAL, TID glimepiride(Amaryl), 4 mg= 1 tabs, ORAL, DAILY WITH BREAKFAST glucagon, 1 mg, IM, PRN, PRN glucose(glucose 15 g/42 mL oral gel), 15 g= 1 packets, ORAL, PRN, PRN glucose(glucose 15 g/42 mL oral gel), 30 g= 2 packets, ORAL, PRN, PRN glucose(Dextrose 50% (more content not included)... Normal [facility] D Dimer HSon 02-19-2025 D Dimer HS 630 ng/mL FEU High <=499 [facility] Comment on above: Result Comment: Excl usion of PE and DVT The D Dimer HS assay is reported in ng/ml Fibrinogen Equivalent Units (FEU). Per transcription specialist?s instructions for use, a value less than 500ng/ml (FEU) may help to exclude DVT and /or PE in outpatients when the assay is used with a clinical pretest probability assessment. D-Dimer used for DIC Screens Assay results should be used with other information, including the clinical context in forming a diagnosis. Performed By: #### 1 [id number] #### [facility] [address] [place] [address] Fire And Explosion Investigator: Shin Flood MD HEMOon 02-19-2025 DIFF? No Normal [facility] Comment on above: Performed By: #### 1 [id number] #### [facility] [address] [place] [address] Fire And Explosion Investigator: hSin Flood MD Erythrocyte distribution width (RBC) [Ratio] 14.3 % Normal 11.5-14.5 [facility] Comment on above: Performed By: #### 1 [id number] #### [facility] [address] [place] [id number] Fire And Explosion Investigator: Shin Flood MD Hematocrit (Bld) [Volume fraction] 37.0 % Low 41.0-52.0 [facility] Comment on above: Performed By: #### 1 [id number] #### [facility] [address] [place] [address] Fire And Explosion Investigator: Shin Flood MD Hemoglobin (Bld) [Mass/Vol] 12.3 g/dL Low 13.5-17.5 [facility] Comment on above: Performed By: #### 1 [id number] #### [facility] [address] [place] [address] Fire And Explosion Investigator: Shin Flood MD Instr WBC 7.8 Normal [facility] Comment on above: Performed By: #### 1 [id number] #### [facility] [address] [place] [address] Fire And Explosion Investigator: Shin Flood MD MCH (RBC) [Entitic mass] 31.3 pg Normal 27.0-34.0 [facility] Comment on above: Performed By: #### 1 [id number] #### [facility] [address] [place] [address] Fire And Explosion Investigator: Shin Flood MD MCHC (RBC) [Mass/Vol] 33.3 g/dL Normal 32.0-37.0 [facility] Comment on above: Performed By: #### 1 [id number] #### [facility] [address] [place] [address] Fire And Explosion Investigator: Shin Flood MD MCV (RBC) [Entitic vol] 94.1 fL Normal 80.0-100.0 [facility] Comment on above: Performed By: #### 1 [id number] #### [facility] [address] [place] [address] Fire And Explosion Investigator: Shin Flood MD Nucleated RBC 0 /100WBC Normal [facility] Comment on above: Performed By: #### 1 [id number] #### [facility] [address] [place] [address] Fire And Explosion Investigator: Shin Flood MD Platelet 178 x10 Normal 150-450 [facility] Comment on above: Performed By: #### 1 [id number] #### [facility] [address] [place] [address] Fire And Explosion Investigator: Shin Flood MD Platelet mean volume (Bld) [Entitic vol] 10.2 fL Normal 7.4-10.4 [facility] Comment on above: Performed By: #### 1 [id number] #### [facility] [address] [place] [id number] Fire And Explosion Investigator: Shin Flood MD RBC 3.93 x10 Low 4.70-6.10 [facility] Comment on above: Result Comment: Note : RBC morphology is normal unless otherwise stated. Evaluation performed only if differential is requested. Performed By: #### 1 [id number] #### [facility] [address] [place], [place] [id number] Fire And Explosion Investigator: Shin Flood MD WBC 7.8 x10 Normal 4.5-11.0 [facility] Comment on above: Performed By: #### 1 [id number] #### [facility] [address] [place], [place] [id number] Fire And Explosion Investigator: Shin Flood MD LaboratoryOrdered By: Devin Hussein on 02-19-2025 D Dimer HS 630 ng/mL FEU High <=499ng/mL [facility]U [facility] Comment on above: Interpretive Data: E xclusion of PE and DVT The D Dimer HS assay is reported in ng/ml Fibrinogen Equivalent Units (FEU). Per transcription specialist s instructions for use, a value less than 500ng/ml (FEU) may help to exclude DVT and /or PE in outpatients when the assay is used with a clinical pretest probability assessment. D-Dimer used for DIC Screens Assay results should be used with other information, including the clinical context in forming a diagnosis. LaboratoryOrdered By: SYSTEM SYSTEM on 02-19-2025 Tropinin I.cardiac panel High sensitivity method 10 pg/mL Normal 3 - 53 pg/mL ADM [facility] Comment on above: Interpretive Data: S pecimens from some individuals with pathologically high gamma globulin levels may demonstrate depressed troponin values Estimated Creatinine Clearance 78.01 mL/min [facility] Work Phone: Albumin BCP dye [Mass/Vol] 3.1 g/dL Low 3.4 - 5.0 g/dL ADM RES Albumin/Globulin [Mass ratio] 0.9 {ratio} Invalid Interpretation Code ADM RES ALP [Catalytic activity/Vol] 96 U/L Normal 45 - 117 unit/L ADM RES ALT With P-5'-P [Catalytic activity/Vol] 15 U/L Normal 10 - 49 unit/L ADM RES AST With P-5'-P [Catalytic activity/Vol] 18 U/L Normal 15 - 37 unit/L ADM RES Basophils (Bld) [#/Vol] 0.05 10*3/uL Normal 0.00 - 0.20 x1000 Dx 1600 MPL Basophils/100 WBC (Bld) 0.7 % Invalid Interpretation Code Dx 1600 MPL Bilirubin [Mass/Vol] 0.50 mg/dL Normal 0.30 - 1.20 mg/dL [facility] Comment on above: Interpretive Data: U se of this assay is not recommended for patients undergoing treatment with eltrombopag due to the potential for falsely elevated results. Calcium [Mass/Vol] 9.2 mg/dL Normal 8.7 - 10. 4 mg/dL ADM RES Chloride [Moles/Vol] 102 mmol/L Normal 98 - 10 7 mmol/L ADM RES CO2 [Moles/Vol] 33.0 mmol/L High 20.0 - 31.0 mmol/L ADM RES Creatinine [Mass/Vol] 1.2 mg/dL High 0.6 - 1.1 mg/dL ADM [facility] Eosinophils (Bld) [#/Vol] 0.20 10*3/uL Normal 0.00 - 0.50 x1000 Dx 1600 MPL Eosinophils/100 WBC (Bld) 2.6 % Invalid Interpretation Code DxH 1600 MPL Erythrocyte distribution width (RBC) [Ratio] 14.3 % Normal 11.5 - 14.5 % DxH 1600 MPL GFR AA 1 Invalid Interpretation Code [facility]M [facility] Comment on above: Result Comment: Afri can Fijian GFR Calc Interpretive Data: Medical judgement is necessary to interpret GFR. The calculated GFR may not accurately reflect renal status in patients >70 years, women, acutely ill hospitalized patients and patients with acute renal failure or known renal disease. The MDRD GFR formula is valid only for adults greater than 18 years of age. Note: Creatinine clearance (not GFR) should be used for drug dosing. Calculated result performed using the MDRD GFR equation GFR/1.73 sq M.predicted MDRD (S/P/Bld) [Vol rate/Area] mL/min/1.73m Invalid Interpretation Code [facility]M [facility] Comment on above: Result Comment: Non- GFR Calc Interpretive Data: Medical judgement is necessary to interpret GFR. The calculated GFR may not accurately reflect renal status in patients >70 years, women, acutely ill hospitalized patients and patients with acute renal failure or known renal disease. The MDRD GFR formula is valid only for adults greater than 18 years of age. Note: Creatinine clearance (not GFR) should be used for drug dosing. Calculated result performed using the MDRD GFR equation Globulin (S) [Mass/Vol] 3.4 g/dL Invalid Interpretation Code ADM RES Glucose [Mass/Vol] 117 mg/dL High 74 - 106 mg/dL ADM RES Hematocrit (Bld) [Volume fraction] 37.0 % Low 41.0 - 52.0 % DxH 1600 MPL Hemoglobin (Bld) [Mass/Vol] 12.3 g/dL Low 13.5 - 17.5 g/dL DxH 1600 MPL Lymphocytes (Bld) [#/Vol] 1.57 10*3/uL Normal 1.20 - 4.80 x1000 DxH 1600 MPL Lymphocytes/100 WBC (Bld) 20.2 % Invalid Interpretation Code DxH 1600 MPL MCH (RBC) [Entitic mass] 31.3 pg Normal 27.0 - 34.0 pg DxH 1600 MPL MCHC (RBC) [Mass/Vol] 33.3 g/dL Normal 32.0 - 37.0 g/dL DxH 1600 MPL MCV (RBC) [Entitic vol] 94.1 fL Normal 80.0 - 100.0 fL Dx 1600 MPL Monocytes (Bld) [#/Vol] 0.92 10*3/uL Normal 0.10 - 1.00 x1000 Dx 1600 MPL Monocytes/100 WBC (Bld) 11.9 % Invalid Interpretation Code Dx 1600 MPL Natriuretic peptide B (Bld) [Mass/Vol] 326 pg/mL High 0 - 100 pg/mL ADM RES Neutrophils (Bld) [#/Vol] 5.01 10*3/uL Normal 1.40 - 8.80 x1000 Dx 1600 MPL Neutrophils/100 WBC (Bld) 64.6 % Invalid Interpretation Code Dx 1600 MPL Nucleated RBC Auto Ql (Bld) 0 /100WBC Invalid Interpretation Code Dx 1600 MPL Osmolality Calc [Osmolality] 289 mOsm/kg Normal 275 - 295 mOsm/kg ADM RES Platelet mean volume (Bld) [Entitic vol] 10.2 fL Normal 7.4 - 10.4 fL Dx 1600 MPL Platelets (Bld) [#/Vol] 178 10*3/uL Normal 150 - 450 x10^3/uL [facility] 1600 MPL Potassium [Moles/Vol] 4.0 mmol/L Normal 3.5 - 5.1 mmol/L ADM RES Protein [Mass/Vol] 6.5 g/dL Normal 5.7 - 8.2 g/dL ADM RES Comment on above: Interpretive Data: T otal Protein results may be increased in patients receiving dextran as a blood volume capsule filler RBC (Bld) [#/Vol] 3.93 10*6/uL Low 4.70 - 6.10 x10^6/uL Dx 1600 MPL Comment on above: Interpretive Data: N ote: RBC morphology is normal unless otherwise stated. Evaluation performed only if differential is requested. Sodium [Moles/Vol] 143 mmol/L Normal 135 - 145 mmol/L ADM RES Urea nitrogen [Mass/Vol] 21 mg/dL Normal 9 - 23 mg/dL ADM RES Comment on above: Interpretive Data: - Venipuncture should occur prior to N- Acetyl Cysteine (NAC) or Metamizole (Sulpyrine) administration due to the potential for falsely depressed results. - Blood samples from some patients with monoclonal gammopathies may produce falsely elevated results Urea nitrogen/Creatinine [Mass ratio] 17.5 mg/mg Invalid Interpretation Code ADM RES WBC corrected for nucl RBC Auto (Bld) [#/Vol] 7.8 x10^3/uL Normal 4.5 - 11.0 x10^3/uL DxH 1600 MPL Estimated Creatinine Clearance 85.11 mL/min [facility] Work Phone: POC Glucoseon 02-19-2025 Glucose [Mass/Vol] 152 mg/dL High 72-100 [facility] Comment on above: Performed By: #### 1 [id number] #### [facility] [address] [place] [address] [employer] Investigator: Shin Flood MD Glucose [Mass/Vol] 101 mg/dL High 72100 [facility] Comment on above: Performed By: #### 1 [id number] #### [facility] [address] [place] [address] [id number] [employer] Investigator: Shin Flood MD Glucose [Mass/Vol] 181 mg/dL High [address] Comment on above: Performed By: #### 1 [id number] #### [facility] [address] [place], [place] [id number] [employer] Investigator: Shin Flood MD TROPONIN HS SINGLE DRAWon Troponin HS Single Draw 10 pg/mL Normal 3-53 [facility] Comment on above: Result Comment: Spec imens from some individuals with pathologically high gamma globulin levels may demonstrate depressed troponin values Performed By: #### 1 [id number] #### [facility] [address] [place] [address] [employer] Investigator: Shin Flood MD ALLIED HEALTHon 02-18-2025 ALLIED HEALTH HNO ID: [id number] Author: JUNE WESTFALL CT Service: Radiology Author Type: Technologist Type: Allied Health Filed: 02/18/2025 18:11 Note Text: Radiology Service Progress Note DATE OF SERVICE: February 18, 2025 TIME: 6:10 PM PATIENT IDENTITY VERIFICATION COMPLETED USING TWO (2) STANDARD IDENTIFIERS: Name and Date of confirmed by patient verbally and Name and Date of confirmed by identification band. FALL SCREENING: Has the patient had 2 falls in the last year or 1 fall with injury or currently using an Ambulatory Assistive Device (Walker, Cane, Wheelchair, Crutches, etc.)? No PATIENT GENDER DATA: Assigned male at PATIENT RELEVANT IMPLANT DATA REVIEWED: Not Applicable PATIENT PRESENTS WITH AN IMPLANTABLE OR ATTACHED INSPECTOR FINAL ASSEMBLY MECHANICAL: No ALLERGIES: Reviewed and unchanged CONTRAST ALLERGY: NO. EXAM: CT -CONTRAST INDUCED NEPHROPATHY RISK FACTORS: Patient age > 60 years CREATININE: Creatinine Date Value Ref Range Status 02/07/2025 1.13 0.73 - 1.22 mg/dL Final 12/04/2022 1.13 0.73 - 1.22 mg/dL Final 10/03/2021 1.09 0.73 - 1.22 mg/dL Final Estimated Glomerular Filtration Rate Date Value Ref Range Status 02/07/2025 75 >=60 mL/min/1.73m? Final Comment: Estimated Glomerular Filtration Rate (eGFR) is calculated using the 2020 CKD-EPI creatinine equation. This equation utilizes serum creatinine, sex, and age as parameters. The creatinine assay has traceable calibration to isotope dilution-mass spectrometry. Refer to KDIGO guidelines for clinical interpretation. In patients with unstable renal function, e.g. those with acute kidney injury, the eGFR may not accurately reflect actual GFR. eGFR- Date Value Ref Range Status 03/06/2021 >60 Final P.O.C.T. RESULTS: N/A February 18, 2025 TREATMENT: N/A PERIPHERAL IV DATA: Inpatient - refer to [facility] documentation RADIOLOGY DEPARTMENT: CT; Exam(s) Completed: PE Study. Anesthesia: No SIGNATURE: BOBBI Patel PATIENT NAME: Jame Wallace DATE: February 18, 2025 TIME: 6:10 PM Normal [facility] Basic metabolic 2000 panelon 02-18-2025 Anion gap [Moles/Vol] 11 mmol/L Normal 8-15 [facility] Comment on above: Order Comment: Speci men Type: BLOOD SPECIMENOrdering Facility: [facility] Address: [address] [place] [address] Performed By: #### 2 4321-2, 58992-0, 70167-4 ####[facility] LABCLIA [id number] [place] [address] [place] Calcium [Mass/Vol] 9.3 mg/dL Normal 8.5-10.2 [facility] Comment on above: Order Comment: Speci men Type: BLOOD SPECIMENOrdering Facility: [facility] Address: [address] [place] [address] Performed By: #### 2 4321-2, 75700-8, 94414-9 ####[facility] [place] LABCLIA [id number] [place] [address] [place] Chloride [Moles/Vol] 102 mmol/L Normal 98-107 [facility] Comment on above: Order Comment: Speci men Type: BLOOD SPECIMENOrdering Facility: [facility] Address: [address] [place] [address] Performed By: #### 2 4321-2, , 02394-0 ####[facility] [place] LABCLIA [id number] [facility] [place] [address] [place] CO2 [Moles/Vol] 27 mmol/L Normal 22-30 [facility] Comment on above: Order Comment: Speci men Type: BLOOD SPECIMENOrdering Facility: [facility] Address: [address] [place] [address] Performed By: #### 2 4321-2, 16329-8, 32634-2 ####[facility] [place] LABCLIA [id number] [place] [address] [place] Creatinine [Mass/Vol] 1.17 mg/dL Normal 0.73-1.22 [facility] Comment on above: Order Comment: Speci men Type: BLOOD SPECIMENOrdering Facility: [facility] Address: [address] [place] [address] Performed By: #### 2 4321-2, 50399-9, 95261-1 ####[facility] [place] LABCLIA [id number] [place] [address] [place] eGFRcr SerPlBld CKD-EPI 2020 72 mL/min/1.73m??? Normal >=60 [facility] Comment on above: Order Comment: Lucas olson Type: BLOOD SPECIMENOrdering Facility: [facility] Address: [address] [place] [address] Result Comment: Delaney mated Glomerular Filtration Rate (eGFR) is calculated using the 2020 CKD-EPI creatinine equation. This equation utilizes serum creatinine, sex, and age as parameters. The creatinine assay has traceable calibration to isotope dilution-mass spectrometry. Refer to KDIGO guidelines for clinical interpretation. In patients with unstable renal function, e.g. those with acute kidney injury, the eGFR may not accurately reflect actual GFR. Performed By: #### 2 4321-2, 06508-5, 59537-7 ####[facility] LABCLIA [id number] [place] [id number] [place] Glucose [Mass/Vol] 155 mg/dL High 74-99 [facility] Comment on above: Order Comment: Lucas olson Type: BLOOD SPECIMENOrdering Facility: [facility] Address: [address] [place] [address] Result Comment: The [place] Diabetes Association (ADA) provides guidance for cutoff values for fasting glucose and random glucose. The ADA defines fasting as no caloric intake for at least 8 hours. Fasting plasma glucose results between 100 to 125 mg/dL indicate increased risk for diabetes (prediabetes). Fasting plasma glucose results greater than or equal to 126 mg/dL meet the criteria for diagnosis of diabetes. In the absence of unequivocal hyperglycemia, results should be confirmed by repeat testing. In a patient with classic symptoms of hyperglycemia or hyperglycemic crisis, random plasma glucose results greater than or equal to 200 mg/dL meet the criteria for diagnosis of diabetes. Reference: Standards of Medical Care in Diabetes 2016, [place] Diabetes Association. Diabetes Care. 2016.39(Suppl 1). Performed By: #### 2 4321-2, 64968-9, 08977-0 ####[facility] LABCLIA [id number] [place] [address] [place] Potassium [Moles/Vol] 4.6 mmol/L Normal 3.7-5.1 [facility] Comment on above: Order Comment: Speci men Type: BLOOD SPECIMENOrdering Facility: [facility] Address: [address] [place] [address] Performed By: #### 2 4321-2, 81427-4, 71970-5 ####[facility] LABCLIA [id number] [place] [address] [place] [facility] Sodium [Moles/Vol] 140 mmol/L Normal 136-144 [facility] Comment on above: Order Comment: Speci men Type: BLOOD SPECIMENOrdering Facility: [facility] Address: [address] [place] [address] Performed By: #### 2 4321-2, , 35169-1 ####[facility] LABCLIA [id number] [place] [address] [place] [facility] Urea nitrogen [Mass/Vol] 24 mg/dL Normal 9-24 [facility] Comment on above: Order Comment: Speci men Type: BLOOD SPECIMENOrdering Facility: [facility] Address: [address] [place] [address] Performed By: #### 2 4321-2, , 42845-6 ####[facility] LABCLIA [id number] [place] [address] [facility] CBC W Auto Differential pane l (Bld)on 02-18-2025 Basophils (Bld) [#/Vol] 0.06 10*3/uL Normal <0.11 [facility] Comment on above: Order Comment: Speci men Type: BLOOD SPECIMENOrdering Facility: [facility] Address: [address] [place] [address] Performed By: #### 5 7021-8 ####[facility] [place] LABCLIA [id number] [place] [address] [facility] Basophils/100 WBC (Bld) 0.7 % Normal [facility] Comment on above: Order Comment: Speci men Type: BLOOD SPECIMENOrdering Facility: [facility] Address: [address] [place] [address] Performed By: #### 5 7021-8 ####[facility] [place] LABCLIA [id number] [facility] [place] [address] [facility] Differential cell count method Nom (Bld) Auto Normal [facility] Comment on above: Order Comment: Speci men Type: BLOOD SPECIMENOrdering Facility: [facility] Address: [address] [place] [address] Performed By: #### 5 7021-8 ####[facility] [place] LABCLIA [id number] [facility] [place] [address] [facility] Eosinophils (Bld) [#/Vol] 0.23 10*3/uL Normal <0.46 [facility] Comment on above: Order Comment: Speci men Type: BLOOD SPECIMENOrdering Facility: [facility] Address: [address] [place] [address] Performed By: #### 5 7021-8 ####[facility] [place] LABCLIA [id number] [place] [address] [facility] Eosinophils/100 WBC (Bld) 2.6 % Normal [facility] Comment on above: Order Comment: Speci men Type: BLOOD SPECIMENOrdering Facility: [facility] Address: [address] [place] [address] Performed By: #### 5 7021-8 ####[facility] [place] LABCLIA [id number] [place] [address] [facility] Erythrocyte distribution width (RBC) [Ratio] 13.6 % Normal 11.5-15.0 [facility] Comment on above: Order Comment: Speci men Type: BLOOD SPECIMENOrdering Facility: [facility] Address: [address] [place] [address] Performed By: #### 5 7021-8 ####[facility] [place] LABCLIA [id number] [place] [address] [facility] Hematocrit (Bld) [Volume fraction] 38.1 % Low 39.0-51.0 [facility] Comment on above: Order Comment: Speci men Type: BLOOD SPECIMENOrdering Facility: [facility] Address: [address] [place] [address] Performed By: #### 5 7021-8 ####[facility] [place] LABCLIA [id number] [place] [address] [place] Hemoglobin (Bld) [Mass/Vol] 11.9 g/dL Low 13.0-17.0 [facility] Comment on above: Order Comment: Speci men Type: BLOOD SPECIMENOrdering Facility: [facility] Address: [address] [place] [address] Performed By: #### 5 7021-8 ####[facility] [place] LABCLIA [id number] [place] [address] [place] Immature granulocytes (Bld) [#/Vol] 10*3/uL Normal <0.10 [facility] Comment on above: Order Comment: Speci men Type: BLOOD SPECIMENOrdering Facility: [facility] Address: [address] [place] [address] Performed By: #### 5 7021-8 ####[facility] [place] LABCLIA [id number] [place] [address] [place] Immature granulocytes/100 WBC (Bld) 0.1 % Normal [facility] Comment on above: Order Comment: Speci men Type: BLOOD SPECIMENOrdering Facility: [facility] Address: [address] [place] [address] Performed By: #### 5 7021-8 ####[facility] [place] LABCLIA [id number] [place] [address] [place] Lymphocytes (Bld) [#/Vol] 1.56 10*3/uL Normal 1.00-4.00 [facility] Comment on above: Order Comment: Speci men Type: BLOOD SPECIMENOrdering Facility: [facility] Address: [address] [place] [address] Performed By: #### 5 7021-8 ####[facility] [place] LABCLIA [id number] [address] Lymphocytes/100 WBC (Bld) 17.7 % Normal [facility] Comment on above: Order Comment: Speci men Type: BLOOD SPECIMENOrdering Facility: [facility] Address: [address] [place] [address] Performed By: #### 5 7021-8 ####[facility] LABCLIA [id number] [address] [place] [facility] MCH (RBC) [Entitic mass] 31.1 pg Normal 26.0-34.0 [facility] Comment on above: Order Comment: Speci men Type: BLOOD SPECIMENOrdering Facility: [facility] Address: [address] [place] [address] Performed By: #### 5 7021-8 ####[facility] LABCLIA [id number] [address] [place] MCHC (RBC) [Mass/Vol] 31.2 g/dL Normal 30.5-36.0 [facility] Comment on above: Order Comment: Speci men Type: BLOOD SPECIMENOrdering Facility: [facility] Address: [address] [place] [address] Performed By: #### 5 7021-8 ####[facility] LABCLIA [id number] [address] [place] MCV (RBC) [Entitic vol] 99.5 fL Normal 80.0-100.0 [facility] Comment on above: Order Comment: Speci men Type: BLOOD SPECIMENOrdering Facility: [facility] Address: [address] [place] [address] Performed By: #### 5 7021-8 ####[facility] LABCLIA [id number] [address] Monocytes (Bld) [#/Vol] 1.00 10*3/uL High <0.87 [facility] Comment on above: Order Comment: Speci men Type: BLOOD SPECIMENOrdering Facility: [facility] Address: [address] [place] [address] Performed By: #### 5 7021-8 ####[facility] [place] LABCLIA [id number] [place] [address] [place] Monocytes/100 WBC (Bld) 11.4 % Normal [facility] Comment on above: Order Comment: Speci men Type: BLOOD SPECIMENOrdering Facility: [facility] Address: [address] [place] [address] Performed By: #### 5 7021-8 ####[facility] [place] LABCLIA [id number] [place] [address] [place] Neutrophils (Bld) [#/Vol] 5.93 10*3/uL Normal 1.45-7.50 [facility] Comment on above: Order Comment: Speci men Type: BLOOD SPECIMENOrdering Facility: [facility] Address: [address] [place] [address] Performed By: #### 5 7021-8 ####[facility] [place] LABCLIA [id number] [facility] [place] [address] [place] Neutrophils/100 WBC (Bld) 67.5 % Normal [facility] Comment on above: Order Comment: Speci men Type: BLOOD SPECIMENOrdering Facility: [facility] Address: [address] [place] [address] Performed By: #### 5 7021-8 ####[facility] [place] LABCLIA [id number] [facility] [place] [address] [place] Nucleated RBC (Bld) [#/Vol] Normal [facility] Comment on above: Order Comment: Speci men Type: BLOOD SPECIMENOrdering Facility: [facility] Address: [address] [place] [address] Performed By: #### 5 7021-8 ####[facility] [place] LABCLIA [id number] [facility] [place] [address] [place] Nucleated RBC/100 WBC (Bld) [Ratio] Normal [facility] Comment on above: Order Comment: Speci men Type: BLOOD SPECIMENOrdering Facility: [facility] Address: [address] [place] [address] Performed By: #### 5 7021-8 ####[facility] [place] LABCLIA [id number] [place] [address] [place] Platelet mean volume (Bld) [Entitic vol] 12.4 fL Normal 9.0-12.7 [facility] Comment on above: Order Comment: Speci men Type: BLOOD SPECIMENOrdering Facility: [facility] Address: [address] [place] [address] Performed By: #### 5 7021-8 ####[facility] [place] LABCLIA [id number] [place] [address] [place] Platelets (Bld) [#/Vol] 207 10*3/uL Normal 150-400 [facility] Comment on above: Order Comment: Speci men Type: BLOOD SPECIMENOrdering Facility: [facility] Address: [address] [place] [address] Performed By: #### 5 7021-8 ####[facility] [place] LABCLIA [id number] [facility] [place] [address] [place] RBC (Bld) [#/Vol] 3.83 10*6/uL Low 4.20-6.00 [facility] Comment on above: Order Comment: Speci men Type: BLOOD SPECIMENOrdering Facility: [facility] Address: [address] [place] [address] Performed By: #### 5 7021-8 ####[facility] [place] LABCLIA [id number] [place] [address] [place] WBC (Bld) [#/Vol] 8.79 10*3/uL Normal 3.70-11.00 [facility] Comment on above: Order Comment: Speci men Type: BLOOD SPECIMENOrdering Facility: [facility] Address: [address] [place] [address] Performed By: #### 5 7021-8 ####[facility] [place] LABCLIA [id number] [place] [address] [facility] [place] CTA CHEST (NON GATED) W IVCO N PEon 02-18-2025 CTA CHEST (NON GATED) W IVCON PE * * *Final Report* * * DATE OF EXAM: Feb 18 2025 6:10PM [facility] 0564 - CTA CHEST (NON GATED) W IVCON PE / PROCEDURE REASON: Pulmonary embolism (PE) suspected, high prob * * * * Physician Interpretation * * * * EXAMINATION: CHEST CTA (NON GATED) WITH CONTRAST (PULMONARY EMBOLISM PROTOCOL) Clinical History: Shortness of breath beginning one day prior and gradually worsening Technique: Spiral CT acquisition of the chest from the thoracic inlet to the upper abdomen following IV contrast. Axial 1 and 3 mm thick slices plus coronal and sagittal reformatted images. MQ: CTCP_5 Contrast: 100 mL Omnipaque [address] Radiation dose: Integrated Dose-length product (DLP) for this visit = 706.79 mGy*cm CT Dose Reduction Employed: Automated exposure control(AEC) and iterative recon CTA: Post-processed images (Maximum intensity Projection (MIP), Volume-rendered (VR), or Surface shaded display images (SSD) were created, reviewed and archived. Comparison: No relevant prior studies available. RESULT: Limitations: None. Evaluation for thromboembolic disease: - Right heart chambers: No thromboembolic disease. - Main pulmonary arteries: No thromboembolic disease. - Lobar pulmonary arteries: No thromboembolic disease. - Segmental pulmonary arteries: No thromboembolic disease. - Subsegmental pulmonary arteries: No thromboembolic disease. - Additional pulmonary artery findings: Dilated measuring 3.7 cm. Lines, tubes, and devices: None. Lung parenchyma and airways: Patchy groundglass opacities in the posterior left upper lobe and bilateral lower lobes. There is consolidation at the right lung base and right middle lobe. Mild bronchial wall thickening in the lower lobes with areas of mucus plugging. No suspicious pulmonary nodule or mass. Pleural space: Small left and trace right pleural effusions. Lower neck, lymph nodes, and mediastinum: The imaged thyroid is normal. Scattered enlarged mediastinal lymph nodes, possibly reactive, for example a 1.5 cm subcarinal lymph node (2:105) and a 1.4 cm right paratracheal lymph node (2:80). Heart, pericardium, and thoracic vessels: The thoracic aorta is normal in caliber. The cardiac chambers are normal in size. No coronary artery atherosclerotic calcifications are noted, although the study is not optimized for coronary assessment. No pericardial effusion or thickening. Bones and soft tissues: Degenerative changes. Upper abdomen: No abnormality in the imaged upper abdomen. Localizer images: No additional findings. IMPRESSION: No CT evidence of pulmonary embolism. Mosaic attenuation predominantly in the lower lungs bronchial wall thickening. Findings could represent sequela of small airway disease or possibly volume overload. Small left introducer pleural effusions. Few enlarged mediastinal lymph nodes, possibly reactive. Coordinator Skill Training Program: [facility] Transcribe Date/Time: Feb 18 2025 7:23P Dictated by : LUZ MARINA CHANCE MD This examination was interpreted and the report reviewed and electronically signed by: LUZ MARINA CHANCE MD on Feb 18 2025 7:33PM EST [id number] [facility] ED NOTEon 02-18-2025 ED NOTE HNO ID: [id number] Author: MALIKA MARTIN RN Service: Emergency Medicine Author Type: Registered Nurse Type: ED Notes Filed: 02/18/2025 22:20 Note Text: Bed received from nursing mail carriers supervisor at [facility]. Patient to go to [facility] Nurse to nurse: [phone] [facility] ETA: Will call us back [facility] ED NOTE HNO ID: [id number] Author: MALIKA MARTIN RN Service: Emergency Medicine Author Type: Registered Nurse Type: ED Notes Filed: 02/18/2025 20:14 Note Text: Eryn from [facility] called back - they can accommodate. Per Eryn call Dr. Herlinda Gatica at [phone] for admission [facility] ED NOTE HNO ID: [id number] Author: MALIKA MARTIN RN Service: Emergency Medicine Author Type: Registered Nurse Type: ED Notes Filed: 02/18/2025 20:07 Note Text: [facility] called for bed availability- will call me back [facility] ED NOTE HNO ID: [id number] Author: CONSTANZA MENENDEZ RN Service: ? Author Type: Registered Nurse Type: ED Notes Filed: 02/18/2025 19:14 Note Text: Report to SJ Devlin [facility] ED NOTE HNO ID: [id number] Author: CONSTANZA MENENDEZ RN Service: ? Author Type: Registered Nurse Type: ED Notes Filed: 02/18/2025 18:02 Note Text: While collecting labs, pt 02 sat is dipping to 88-90%, pt placed on 2LNC. Dr Crespo notified of oxygen placement. Pt spouse shared with me that the daughter found the pt sleeping at home earlier today she sent me a picture and his eyelids were purple. Normal [facility] ED NOTE HNO ID: [id number] Author: CONSTANZA MENENDEZ RN Service: ? Author Type: Registered Nurse Type: ED Notes Filed: 02/18/2025 16:46 Note Text: Pt arrives with report of Shortness of Breath which began yesterday gradually during the day. Denies recent illness. 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 Pt is reporting right sided chest pain with radiation into his back, not exacerbated by movement. Pt rates that pain 8/10 Pt placed on dental prosthetist, EKG paged. Normal [facility] ED PROV NOTEon 02-18-2025 ED PROV NOTE HNO ID: [id number] Author: SALUD CRESPO MD Service: Emergency Medicine Author Type: Physician Type: ED Provider Notes Filed: 02/18/2025 20:33 Note Text: ED Provider Note Patient Name: Jame Wallace : 1965 SERVICE DATE: 02/18/25 History Patient presents with: Shortness of Breath Jame Wallace is a 59 year old male with history of kidney stone who presents with shortness of breath. Patient has not had similar episodes of shortness of breath in the past. No history of asthma or COPD - Patient does not require increased oxygen. - Symptoms began 2 days. Onset was gradual. - Severity: moderate - Timing: constant - Symptoms are exacerbated by laying down. - Symptoms are not exacerbated by allergies. - Symptoms are associated with being worked up for kidney stone. - Symptoms are not associated with chest pain and peripheral edema. - Improved by nothing. - Not improved by rest. Patient is become progressively more short of breath over the past couple of days especially when he lays flat he states he had to lay flat for CAT scan a couple of days ago and his oxygen level went down to 67%. No known coronary artery disease no history of CHF no history of PE. PAST MEDICAL HISTORY Diagnosis Date - Benign neoplasm of colon - COVID-19 08/09/2020 - Diabetes (HCC) - Diverticulitis - Diverticulitis of colon (without mention of hemorrhage)(562.11) - Morbidly obese (HCC) - Neuropathy - Osteoarthritis - Paralyzed hemidiaphragm - Raynaud phenomenon - Rheumatoid arthritis of hand (HCC) PAST SURGICAL HISTORY Procedure Laterality Date - APPENDECTOMY 06/2007 - CHOLECYSTECTOMY 05/2004 - COLONOSCOPY FLX DX W/COLLJ SPEC WHEN PFRMD 2003, 2004 - ESOPHAGOGASTRODUODENOSCOPY TRANSORAL DIAGNOSTIC 2004 - INCISION AND DRAINAGE OF WOUND (IANDD) HX 03/02/[address] Vo - KNEE SURGERY HX Right 01/2018 - LAP COLECTOMY, SIGMOID W/FRUIT COORDINATOR 06/2007 Diverticulitis - LIPOMA (LARGE) 04/25/2013 excision, back - ORTHOPEDICS SURGERY HX FAMILY HISTORY Problem Relation Age of Onset - other (colonic polyps) Father - other (Esophageal Cancer) Father - Colon Cancer Mother rectal fistual - Diabetes Mother Social History[1] ALLERGIES Allergen Reactions - Pregabalin Unknown Review of Systems Constitutional: Negative for chills and fever. Respiratory: Positive for shortness of breath. Negative for cough and chest tightness. Gastrointestinal: Negative for abdominal pain, nausea and vomiting. Genitourinary: Positive for flank pain and hematuria. Allergic/Immunologic: Negative for environmental allergies, food allergies and immunocompromised state. Neurological: Negative for syncope and light-headedness. Psychiatric/Behavioral: Negative for confusion. The patient is not nervous/anxious. Physical Exam Vitals [02/18/25 1639] BP Pulse Temp Temp src Resp SpO2 Weight Height 171/90 67 36.8 ?C (98.2 ?F) Temporal (!) 66 (!) 94 % (!) 154.2 kg (340 lb) 1.88 m (6' 2) Physical Exam Vitals and nursing note reviewed. Constitutional: General: He is not in acute distress. Appearance: He is not ill-appearing, toxic-appearing or diaphoretic. Comments: Elevated BMI HENT: Head: Normocephalic and atraumatic. Eyes: Extraocular Movements: Extraocular movements intact. Neck: Vascular: No JVD. Cardiovascular: Rate and Rhythm: Normal rate and regular rhythm. Pulmonary: Effort: Pulmonary effort is normal. Breath sounds: Normal breath sounds. Musculoskeletal: Right lower leg: Edema present. Left lower leg: Edema present. Skin: General: Skin is warm and dry. Capillary Refill: Capillary refill takes less than 2 seconds. Neurological: General: No focal deficit present. Mental Status: He is alert and oriented to person, place, and time. Psychiatric: Mood and Affect: Mood normal. Mood is not anxious. Behavior: Behavior normal. Behavior is not agitated. Diagnostic Testing ED Labs Ordered and Reviewed - No data to display Procedures ED Course / Clinical Impression Clinical Impressions as of 02/19/25 0209 Acute congestive heart failure, unspecified heart failure type (HCC) Ureteral calculus MDM / Disposition / Plan A large body habitus difficult to auscultate lungs no definite wheezes or crackles no cough. Diabetes no known coronary artery disease. Recent travel history. Objectively hypoxic on pulse ox when he is laid supine. Cardiac workup and CT PE study obtained. Workup is most consistent with fluid overload CHF which she has never experienced before. I gave him a 40 mg IV dose of Lasix he has a right bundle branch block on his EKG which is new but his previous EKG was many years before that. No acute ischemic change troponin with slight elevation second set pending no chest pain. Patient is supposed to have procedure for kidney stone in 4 days. I discussed with him he is going to need to get ca (more content not included)... Normal [facility] EKGon 02-18-2025 Electrocardiogram Ventricular Rate : 6 6 BPM Atrial Rate : 66 BPM P-R Interval : 130 ms QRS Duration : 136 ms Q-T Interval : 438 ms QTC Calculation(Bazett) : 459 ms Calculated P [place] : 21 degrees Calculated R [place] : -6 degrees Calculated T [place] : 16 degrees NORMAL SINUS RHYTHM RIGHT BUNDLE BRANCH BLOCK ABNORMAL ECG NO PREVIOUS ECGS AVAILABLE comparison 2007 bundle branch block is new Confirmed by SALUD CRESPO MD ([id number]) on 02/18/2025 5:56:20 PM NAME : JAME WALLACE PID : [id number] : 1965 Gender : Male Race : ORD : Procedure Date : Feb 18 2025 16:46:23 Edit Date : Feb 18 2025 17:56:22 Diagnosis: NORMAL SINUS RHYTHM RIGHT BUNDLE BRANCH BLOCK ABNORMAL ECG NO PREVIOUS ECGS AVAILABLE comparison 2007 bundle branch block is new Confirmed by SALUD CRESPO MD ([id number]) on 02/18/2025 5:56:20 PM Test Reason : Location : 150 : [facility] Overread By : SALUD CRESPO MD Edited By : SALUD CRESPO MD Referred By : , Acquired by : JAMIN OBREGON [facility] HIGH SENSITIVITY TROPONIN To n 02-18-2025 Troponin T.cardiac High sensitivity method [Mass/Vol] 19 ng/L High <12 [facility] Comment on above: Order Comment: Speci men Type: BLOOD SPECIMENOrdering Facility: [facility] Address: [address] [place] [address] Performed By: #### H STNT ####[facility] LABCLIA [id number] [place] [id number] [facility] Troponin T.cardiac High sensitivity method [Mass/Vol] 19 ng/L High <12 [facility] Comment on above: Order Comment: Speci men Type: BLOOD SPECIMENOrdering Facility: [facility] Address: [address] [place] [address] Performed By: #### H STNT ####[facility] LABIA [id number] [place] [id number] [place] Magnesium [facility]-ncon 02-18 Magnesium [Mass/Vol] 1.8 mg/dL Normal 1.7-2.3 [facility] Comment on above: Order Comment: Speci men Type: BLOOD SPECIMENOrdering Facility: [facility] Address: [address] [place] [address] Performed By: #### 2 4321-2, 73257-2, 26593-5 ####[facility] LABCLIA [id number] [place] [id number] [place] NT-proBNP SerPl-mCncon 02-18 Natriuretic peptide.B prohormone N-Terminal [Mass/Vol] 1901 pg/mL High <125 [facility] Comment on above: Order Comment: Speci men Type: BLOOD SPECIMENOrdering Facility: [facility] Address: [address] [place] [address] Performed By: #### 2 4321-2, 24362-3, 87728-0 ####[facility] LABCLIA [id number] [place] [address] [place] AUTO DIFFon 02-16-2025 Baso Count 0.08 x1000 Normal 0.00-0.20 [facility] Comment on above: Performed By: #### 9 453838, 870492, 498237, 996399 #### [facility] [address] [place] [address] [employer] Investigator: Shin Flood MD Basos % 1.0 % Normal [facility] Comment on above: Performed By: #### 9 846787, 699428, 455321, 280303 #### [facility] [address] [place] [address] [employer] Investigator: Shin Flood MD Eos Count 0.19 x1000 Normal 0.00-0.50 [facility] Comment on above: Performed By: #### 9 421334, 375069, 609101, 313644 #### [facility] [address] [place] [address]676 [employer] Expl[employer] Investigator: Shin Flood MD Eosinophils/100 WBC (Bld) 2.6 % Normal [facility] Comment on above: Performed By: #### 9 015889, 684436, 419136, 591275 #### [facility] [address] [place] [address] [employer] Investigator: Shin Flood MD Lymph Count 1.53 x1000 Normal 1.20-4.80 [facility] Comment on above: Performed By: #### 9 984850, 354343, 242695, 918856 #### [facility] [address] [place] [address]28 [employer] Investigator: Shin Flodo MD Lymphocytes/100 WBC (Bld) 20.6 % Normal [facility] Comment on above: Performed By: #### 9 970460, 308003, 003358, 162712 #### [facility] [address] [place] [address] [employer] Investigator: Shin Flood MD Mcclain Count 0.75 x1000 Normal 0.10-1.00 [facility] Comment on above: Performed By: #### 9 411203, 157404, 411328, 357919 #### [facility] [address] [place] [address] [employer] Investigator: Shin Flood MD Monocytes/100 WBC (Bld) 10.1 % Normal [facility] Comment on above: Performed By: #### 9 393550, 197686, 659205, 028403 #### [facility] [address] [place] [address]334 [employer] Investigator: Shin Flood MD Neutrophil Count (ANC) 4.89 x1000 Normal 1.40-8.80 [facility] Comment on above: Performed By: #### 9 657211, 770624, 053557, 514392 #### [facility] [address] [place] [address]709 [employer] Investigator: Shin Flood MD Neutrophils/100 WBC (Bld) 65.8 % Normal [facility] Comment on above: Performed By: #### 9 721014, 024019, 891044, 096917 #### [facility] [address] [place] [address] [employer] Investigator: Shin Flood MD COMPMETAon 02-16-2025 Albumin [Mass/Vol] 3.3 g/dL Low 3.4-5.0 [facility] Comment on above: Performed By: #### 9 936325, 493292, 949507, 671514 #### [facility] [address] [place] [address]90 [employer] And Expl[employer] Investigator: Shin Flood MD Albumin/Globulin [Mass ratio] 0.9 {ratio} Normal [facility] Comment on above: Performed By: #### 9 991274, 652492, 788980, 156768 #### [facility] [address] [place] [address]293 [employer] Expl[employer] Investigator: Shin Flood MD Alk Phos 108 unit/L Normal 45-117 [facility] Comment on above: Performed By: #### 9 488293, 313019, 012468, 486667 #### [facility] [address] [place] [address]8029 [employer] Investigator: Shin Flood MD Bilirubin [Mass/Vol] 0.40 mg/dL Normal 0.30-1.20 [facility] Comment on above: Result Comment: Use of this assay is not recommended for patients undergoing treatment with eltrombopag due to the potential for falsely elevated results. Performed By: #### 9 533190, 380773, 354395, 847033 #### [facility] [address] [place] [address] 13788 [employer] And Expl[employer] Investigator: Shin Flood MD Calcium [Mass/Vol] 9.0 mg/dL Normal 8.7-10.4 [facility] Comment on above: Performed By: #### 9 140558, 242608, 728702, 548242 #### [facility] [address] [place] [address] 11501 [employer] Investigator: Shin Flood MD Chloride [Moles/Vol] 106 mmol/L Normal 98-107 [facility] Comment on above: Performed By: #### 9 361798, 397653, 114671, 117060 #### [facility] [address] [place] [address] 19605 [employer] Investigator: Shin Flood MD CO2 [Moles/Vol] 34.0 mmol/L High 20.0-31.0 [facility] Comment on above: Performed By: #### 9 905258, 061223, 526539, 149216 #### [facility] [address] [place] [address]663 [employer] Expl[employer] Investigator: Shin Flood MD Creatinine [Mass/Vol] 1.1 mg/dL Normal 0.6-1.1 [facility] Comment on above: Performed By: #### 9 493913, 920707, 985705, 135052 #### [facility] [address] [place] [address] 81847 [employer] Expl[employer] Investigator: Shin Flood MD GFR AA >60 Normal [facility] Comment on above: Result Comment: Afri can Fijian GFR Calc Medical judgement is necessary to interpret GFR. The calculated GFR may not accurately reflect renal status in patients >70 years, women, acutely ill hospitalized patients and patients with acute renal failure or known renal disease. The MDRD GFR formula is valid only for adults greater than 18 years of age. Note: Creatinine clearance (not GFR) should be used for drug dosing. Calculated result performed using the MDRD GFR equation Performed By: #### 9 562945, 747661, 155558, 803685 #### [facility] [address] [place] [address]709 [employer] Investigator: Shin Flood MD Globulin (S) [Mass/Vol] 3.7 g/dL Normal [facility] Comment on above: Performed By: #### 9 118352, 902537, 185056, 264237 #### [facility] [address] [place] [address] 39218 [employer] Investigator: Shin Flood MD Glomerular Filtration Rate >60 Normal [facility] Comment on above: Result Comment: Non- GFR Calc Medical judgement is necessary to interpret GFR. The calculated GFR may not accurately reflect renal status in patients >70 years, women, acutely ill hospitalized patients and patients with acute renal failure or known renal disease. The MDRD GFR formula is valid only for adults greater than 18 years of age. Note: Creatinine clearance (not GFR) should be used for drug dosing. Calculated result performed using the MDRD GFR equation Performed By: #### 9 356083, 895665, 081027, 517499 #### [facility] [address] [place] [address] [employer] And [employer] Investigator: Shin Flood MD Glucose [Mass/Vol] 123 mg/dL High 74-106 [facility] Comment on above: Performed By: #### 9 556669, 492785, 095454, 354845 #### [facility] [address] [place] [address] 19597 [employer] Investigator: Shin Flood MD GOT 20 unit/L Normal 15-37 [facility] Comment on above: Performed By: #### 9 910646, 156833, 236250, 580091 #### [facility] [address] [place] [address]39 [employer] Expl[employer] Investigator: Shin Flood MD GPT 16 unit/L Normal 10-49 [facility] Comment on above: Performed By: #### 9 101289, 714132, 463697, 082031 #### [facility] [address] [place] [address] [employer] Investigator: Shin Flood MD Osmolality [Osmolality] 292 mosm/kg Normal 275-295 [facility] Comment on above: Performed By: #### 9 677755, 521809, 517412, 176746 #### [facility] [address] [place] [address] [employer] Investigator: Shin Flood MD Potassium [Moles/Vol] 4.6 mmol/L Normal 3.5-5.1 [facility] Comment on above: Result Comment: Spec imen slightly hemolyzed. Results may be affected. Performed By: #### 9 475207, 751551, 323551, 137460 #### [facility] [address] [place] [address] Fire And Explosion Investigator: Shin Flood MD Protein [Mass/Vol] 7.0 g/dL Normal 5.7-8.2 [facility] Comment on above: Result Comment: Tota l Protein results may be increased in patients receiving dextran as a blood volume capsule filler Performed By: #### 9 324535, 544111, 846214, 062329 #### [facility] [address] [place] [address] [employer] And Explosion Investigator: Shin Flood MD Sodium [Moles/Vol] 145 mmol/L Normal 135-145 [facility] Comment on above: Performed By: #### 9 626906, 309239, 077442, 005178 #### [facility] [address] [place] [address] [employer] Investigator: Shin Flood MD Urea nitrogen [Mass/Vol] 17 mg/dL Normal 9-23 [facility] Comment on above: Result Comment: - Ve nipuncture should occur prior to N-Acetyl Cysteine (NAC) or Metamizole (Sulpyrine) administration due to the potential for falsely depressed results. - Blood samples from some patients with monoclonal gammopathies may produce falsely elevated results Performed By: #### 9 006594, 014051, 354280, 919517 #### [facility] [address] [place] [address] [employer] Investigator: Shin Flood MD Urea nitrogen/Creatinine [Mass ratio] 15.5 mg/mg Normal [facility] Comment on above: Performed By: #### 9 547174, 764799, 414520, 224360 #### [facility] [address] [place] [address] [employer] And Expl[employer] Investigator: Shin Flood MD ED Physician Reporton 2024 ED Physician Report JAME WALLACE :1965 Registration Date:02/16/2025 Basic Info/HPI/Physical Exam/ROS/AP HISTORY OF PRESENT ILLNESS: Time seen: 2025-02-16 13:30 Mode of transport: Private vehicle Primary historian: Patient Patient is a 59-year-old male with no prior history of nephrolithiasis who presents with worsening right-sided flank pain due to a known right ureteral stone. He was previously evaluated at [facility] a week ago, where a CT scan revealed a non-obstructing proximal 8mm right ureteral stone at the right pelvic ureteral junction. The pain has acutely worsened since yesterday and became severe overnight. He reports decreased urine output last night but denies nausea or vomiting. He was previously prescribed Flomax. He has been under the care of a urologist (Doctor Azul, Urolog) but is unable to wait for his scheduled follow-up due to escalating symptoms. He is supposed to have a lithotripsy/stent placed in a week. PHYSICAL EXAM: General: alert, no acute distress. Skin: warm, dry, pink, intact Head: no trauma, normocephalic. Neck: trachea midline, supple Eye: normal conjunctiva, sclera clear. Cardiovascular: regular rate and rhythm, normal peripheral perfusion. Respiratory: lungs CTA, respirations non-labored. Chest Wall: no deformity, no tenderness Gastrointestinal: soft, non distended, non tender Extremities: no deformity, no trauma, no swelling Neurological: oriented x 4, LOC appropriate for age, speech normal. Psychiatric: cooperative, affect appropriate for age, Back: normal alignment EVALUATIONS: INITIAL EVALUATION AND PLAN: - Differential includes worsening kidney stone pain, obstructing stone, pyelonephritis, urinary tract infection. - Plan: - KUB X-ray - Laboratory studies - Urinalysis - Pain management - Consult with [facility] RE-EVALUATION AT 14:58 - Labs unremarkable. - Urinalysis positive: 75 leukocytes, 310 WBCs. - X-ray unable to visualize the stone. RE-EVALUATION AT 15:18 - Case discussed with Harshal from [facility]. - Patient is scheduled in one week for stent placement and laser lithotripsy. - Urology recommends discharge home with pain medication if patient feels he can wait a week, as laser procedure cannot be performed sooner. RE-EVALUATION AT 15:38 - X-ray did not visualize the stone, which is not uncommon. - Urology only has the laser available on the day of scheduled surgery; stent could be placed sooner if needed, but laser lithotripsy would be delayed. - Patient did not receive adequate pain medications from prior ER visit. - Will discharge patient with prescriptions for Percocet (pain), ketorolac (anti-inflammatory), ciprofloxacin (antibiotic for possible urinary infection), Flomax (alpha jared), and antiemetic for nausea. - Close follow-up with [facility] recommended; patient instructed to call if unable to tolerate symptoms or if condition worsens. - Oxygen desaturation during X-ray likely positional and related to pain medication; will ensure oxygenation is stable prior to discharge. - Patient agreeable to outpatient management with medication stack until surgery next week. The patient provided consent for the use of ambient listening technology. Medical Decision Making Differential Diagnoses: Obstructing ureteral stone, Pyelonephritis, Urinary tract infection Documents reviewed: ED nursing notes, prior records Data interpretation: All laboratory, radiology, and any additional testing/evaluations ordered by me and resulted during this encounter were reviewed by me. Relevant results have been considered in medical decision making ED Course: 59-year-old male presented to the ED with worsening right-sided flank pain due to a known right ureteral stone. Initial evaluation included a KUB X-ray, laboratory studies, and urinalysis. The KUB X-ray was unable to visualize the stone. Laboratory studies were unremarkable, but urinalysis was notable for elevated leukocytes and WBCs, raising concern for possible urinary tract infection. Pain management was initiated. The case was discussed with Harshal from [facility], who recommended discharge with pain control if the patient felt he could wait for his scheduled stent placement and laser lithotripsy in one week. The patient was discharged with prescriptions for Percocet, ketorolac, ciprofloxacin, Flomax, and zofran. Oxygen desaturation noted during X-ray was attributed to pain medication and positional factors; oxygenation was confirmed stable prior to discharge. The patient was instructed on close outpatient follow-up and to return if symptoms worsened. Admission was not required as the patient was agreeable to outpatient management until his scheduled procedure. Patient was counseled on strict return precautions and is stable for discharge home. Shared decision making: Patient's disposition was determined through shared decision making a (more content not included)... Normal [facility] HEMOon 02-16-2025 DIFF? No Normal [facility] Comment on above: Performed By: #### 9 [id number], 890723, 080938, [id number] #### [facility] [address] [place] [address] Fire And Explosion Investigator: Shin Flood MD Erythrocyte distribution width (RBC) [Ratio] 14.3 % Normal 11.5-14.5 [facility] Comment on above: Performed By: #### 9 112701, 246742, 692505, 573601 #### [facility] [address] [place] [address] Fire And Explosion Investigator: Shin Flood MD Hematocrit (Bld) [Volume fraction] 39.5 % Low 41.0-52.0 [facility] Comment on above: Performed By: #### 9 070060, 421229, 688411, 697628 #### [facility] [address] [place] [address] Fire And Explosion Investigator: Shin Flood MD Hemoglobin (Bld) [Mass/Vol] 13.0 g/dL Low 13.5-17.5 [facility] Comment on above: Performed By: #### 9 851298, 168148, 108093, 340189 #### [facility] [address] [place] [address] Fire And Explosion Investigator: Shin Flood MD Instr WBC 7.4 Normal [facility] Comment on above: Performed By: #### 9 354093, 194815, 588547, 056397 #### [facility] [address] [place] [address] Fire And Explosion Investigator: Shin Flood MD MCH (RBC) [Entitic mass] 31.3 pg Normal 27.0-34.0 [facility] Comment on above: Performed By: #### 9 519190, 983913, 742119, 942055 #### [facility] [address] [place] [address] Fire And Explosion Investigator: Shin Flood MD MCHC (RBC) [Mass/Vol] 33.0 g/dL Normal 32.0-37.0 [facility] Comment on above: Performed By: #### 9 029996, 984017, 956440, 364643 #### [facility] [address] [place] [address] Fire And Explosion Investigator: Shin Flood MD MCV (RBC) [Entitic vol] 94.8 fL Normal 80.0-100.0 [facility] Comment on above: Performed By: #### 9 843833, 030124, 130555, 141152 #### [facility] [address] [place] [address] Fire And Explosion Investigator: Shin Flood MD MDW 16.34 Normal 13.98-20.0 0 [facility] Comment on above: Result Comment: MDW Interpretation: - For adults age 18-89 in ED, MDW >20.0 may be associated with a higher risk of Sepsis during the first 12 hours of hospital admission. - The predictive value of MDW for identifying Sepsis in patients with hematological abnormalities has not been established. - Interpret with caution when immature granulocytes, variant lymphs, or blast cells are noted on the differential. - Confirm patient age is within intended use population (18-89 years) for MDW. - For ED adults suspected of Sepsis, MDW less than or equal to 20.0 does not rule out Sepsis or the risk of Sepsis. Performed By: #### 9 126135, 579140, 864723, 267887 #### [facility] [address] [place] [address] Fire And Explosion Investigator: Shin Flood MD Nucleated RBC 0 /100WBC Normal [facility] Comment on above: Performed By: #### 9 679667, 097794, 032521, 528605 #### [facility] [address] [place] [address] Fire And Explosion Investigator: Shin Flood MD Platelet 202 x10 Normal 150-450 [facility] Comment on above: Performed By: #### 9 869383, 213877, 944321, 969085 #### [facility] [address] [place] [address] Fire And Explosion Investigator: Shin Flood MD Platelet mean volume (Bld) [Entitic vol] 10.4 fL Normal 7.4-10.4 [facility] Comment on above: Performed By: #### 9 939931, 225647, 877665, 304294 #### [facility] [address] [place] [address] Fire And Explosion Investigator: Shin Flood MD RBC 4.17 x10 Low 4.70-6.10 [facility] Comment on above: Result Comment: Note : RBC morphology is normal unless otherwise stated. Evaluation performed only if differential is requested. Performed By: #### 9 626060, 069312, 267407, 047812 #### [facility] [address] [place] [address] Fire And Explosion Investigator: Shin Flood MD WBC 7.4 x10 Normal 4.5-11.0 [facility] Comment on above: Performed By: #### 9 424180, 431213, 407769, 965524 #### [facility] [address] [place] [address] Fire And Explosion Investigator: Shin Flood MD LIPon 02-16-2025 Lipase [Catalytic activity/Vol] 29 U/L Normal 12-53 [facility] Comment on above: Performed By: #### 9 [id number], 081650, 436585, 219473 #### [facility] [address] [place] [address] Fire And Explosion Investigator: Shin Flood MD LaboratoryOrdered By: SYSTEM SYSTEM on 02-16-2025 Estimated Creatinine Clearance 85.11 mL/min [facility] Work Phone: Albumin BCP dye [Mass/Vol] 3.3 g/dL Low 3.4 - 5.0 g/dL ADM RES Albumin/Globulin [Mass ratio] 0.9 {ratio} Invalid Interpretation Code SW ADM RES ALP [Catalytic activity/Vol] 108 U/L Normal 45 - 117 unit/L ADM RES ALT With P-5'-P [Catalytic activity/Vol] 16 U/L Normal 10 - 49 unit/L ADM RES AST With P-5'-P [Catalytic activity/Vol] 20 U/L Normal 15 - 37 unit/L ADM RES Basophils (Bld) [#/Vol] 0.08 10*3/uL Normal 0.00 - 0.20 x1000 DxH 1600 MPL Basophils/100 WBC (Bld) 1.0 % Invalid Interpretation Code DxH 1600 MPL Bilirubin [Mass/Vol] 0.40 mg/dL Normal 0.30 - 1.20 mg/dL ADM RES Comment on above: Interpretive Data: U se of this assay is not recommended for patients undergoing treatment with eltrombopag due to the potential for falsely elevated results. Calcium [Mass/Vol] 9.0 mg/dL Normal 8.7 - 10. 4 mg/dL ADM RES Chloride [Moles/Vol] 106 mmol/L Normal 98 - 10 7 mmol/L SW ADM RES CO2 [Moles/Vol] 34.0 mmol/L High 20.0 - 31.0 mmol/L SW ADM RES Creatinine [Mass/Vol] 1.1 mg/dL Normal 0.6 - 1.1 mg/dL ADM RES Eosinophils (Bld) [#/Vol] 0.19 10*3/uL Normal 0.00 - 0.50 x1000 DxH 1600 MPL Eosinophils/100 WBC (Bld) 2.6 % Invalid Interpretation Code DxH 1600 MPL Erythrocyte distribution width (RBC) [Ratio] 14.3 % Normal 11.5 - 14.5 % DxH 1600 MPL GFR AA 1 Invalid Interpretation Code ADM RES Comment on above: Result Comment: Afri can [place] GFR Calc Interpretive Data: Medical judgement is necessary to interpret GFR. The calculated GFR may not accurately reflect renal status in patients >70 years, women, acutely ill hospitalized patients and patients with acute renal failure or known renal disease. The MDRD GFR formula is valid only for adults greater than 18 years of age. Note: Creatinine clearance (not GFR) should be used for drug dosing. Calculated result performed using the MDRD GFR equation GFR/1.73 sq M.predicted MDRD (S/P/Bld) [Vol rate/Area] mL/min/1.73m Invalid Interpretation Code ADM RES Comment on above: Result Comment: Non- GFR Calc Interpretive Data: Medical judgement is necessary to interpret GFR. The calculated GFR may not accurately reflect renal status in patients >70 years, women, acutely ill hospitalized patients and patients with acute renal failure or known renal disease. The MDRD GFR formula is valid only for adults greater than 18 years of age. Note: Creatinine clearance (not GFR) should be used for drug dosing. Calculated result performed using the MDRD GFR equation Globulin (S) [Mass/Vol] 3.7 g/dL Invalid Interpretation Code SW ADM RES Glucose [Mass/Vol] 123 mg/dL High 74 - 106 mg/dL SW ADM RES Hematocrit (Bld) [Volume fraction] 39.5 % Low 41.0 - 52.0 % SW DxH 1600 MPL Hemoglobin (Bld) [Mass/Vol] 13.0 g/dL Low 13.5 - 17.5 g/dL SW DxH 1600 MPL Lipase [Catalytic activity/Vol] 29 U/L Normal 12 - 53 unit/L SW ADM RES Lymphocytes (Bld) [#/Vol] 1.53 10*3/uL Normal 1.20 - 4.80 x1000 SW DxH 1600 MPL Lymphocytes/100 WBC (Bld) 20.6 % Invalid Interpretation Code SW DxH 1600 MPL MCH (RBC) [Entitic mass] 31.3 pg Normal 27.0 - 34.0 pg SW DxH 1600 MPL MCHC (RBC) [Mass/Vol] 33.0 g/dL Normal 32.0 - 37.0 g/dL SW DxH 1600 MPL MCV (RBC) [Entitic vol] 94.8 fL Normal 80.0 - 100.0 fL SW DxH 1600 MPL MDW 16.34 1 Normal 13.98 - 20.00 SW DxH 1600 MPL Comment on above: Interpretive Data: Lina DW Interpretation: - For adults age 18-89 in ED, MDW >20.0 may be associated with a higher risk of Sepsis during the first 12 hours of hospital admission. - The predictive value of MDW for identifying Sepsis in patients with hematological abnormalities has not been established. - Interpret with caution when immature granulocytes, variant lymphs, or blast cells are noted on the differential. - Confirm patient age is within intended use population (18-89 years) for MDW. - For ED adults suspected of Sepsis, MDW less than or equal to 20.0 does not rule out Sepsis or the risk of Sepsis. Monocytes (Bld) [#/Vol] 0.75 10*3/uL Normal 0.10 - 1.00 x1000 Dx 1600 MPL Monocytes/100 WBC (Bld) 10.1 % Invalid Interpretation Code Dx 1600 MPL Neutrophils (Bld) [#/Vol] 4.89 10*3/uL Normal 1.40 - 8.80 x1000 Dx 1600 MPL Neutrophils/100 WBC (Bld) 65.8 % Invalid Interpretation Code Dx 1600 MPL Nucleated RBC Auto Ql (Bld) 0 /100WBC Invalid Interpretation Code Dx 1600 MPL Osmolality Calc [Osmolality] 292 mOsm/kg Normal 275 - 295 mOsm/kg [facility] Platelet mean volume (Bld) [Entitic vol] 10.4 fL Normal 7.4 - 10.4 fL Dx 1600 MPL Platelets (Bld) [#/Vol] 202 10*3/uL Normal 150 - 450 x10^3/uL [facility] 1600 MPL Potassium [Moles/Vol] 4.6 mmol/L Normal 3.5 - 5.1 mmol/L [facility] Comment on above: Result Comment: Spec imen slightly hemolyzed. Results may be affected. Protein [Mass/Vol] 7.0 g/dL Normal 5.7 - 8.2 g/dL [facility] Comment on above: Interpretive Data: T otal Protein results may be increased in patients receiving dextran as a blood volume capsule filler RBC (Bld) [#/Vol] 4.17 10*6/uL Low 4.70 - 6.10 x10^6/uL [facility] 1600 MPL Comment on above: Interpretive Data: N ote: RBC morphology is normal unless otherwise stated. Evaluation performed only if differential is requested. Sodium [Moles/Vol] 145 mmol/L Normal 135 - 145 mmol/L [facility] Urea nitrogen [Mass/Vol] 17 mg/dL Normal 9 - 23 mg/dL [facility] Comment on above: Interpretive Data: - Venipuncture should occur prior to N- Acetyl Cysteine (NAC) or Metamizole (Sulpyrine) administration due to the potential for falsely depressed results. - Blood samples from some patients with monoclonal gammopathies may produce falsely elevated results Urea nitrogen/Creatinine [Mass ratio] 15.5 mg/mg Invalid Interpretation Code ADM [facility] WBC corrected for nucl RBC Auto (Bld) [#/Vol] 7.4 x10^3/uL Normal 4.5 - 11.0 x10^3/uL SW DxH 1600 MPL Color (U) Yellow (02/16/25 11:41 AM) Normal Yellow SW UA Ketones Ql (U) Negative (02/16/25 11:41 AM) Normal Negative SW UA pH (U) 5.5 [pH] Normal 4.5 - 8.0 SW UA U APPEAR Hazy *ABN* (02/16/25 11:41 AM) Invalid Interpretation Code Clear SW UA U BILI Negative 8 (02/16/25 11:41 AM) Normal Negative SW UA Comment on above: Interpretive Data: B ilirubin, U: Initial positive urine bilirubin results are not confirmed. Interfering substances may include elevated urobilinogen. Trace = 0.5-1.0 mg/dL Small = 2.0-4.0 mg/dL Moderate = 6.0-8.0 mg/dL Large = 10 mg/dl and greater U BLD > 1.0 mg/dl 9 *ABN* (02/16/25 11:41 AM) Invalid Interpretation Code Negative SW UA Comment on above: Interpretive Data: B lood, U: Trace = 0.03-0.05 mg/dL Small = 0.06-0.1 mg/dL Moderate = 0.2-0.5 mg/dL Large = 1.0 mg/dL and greater U CA OX Many *NA* (02/16/25 11:41 AM) Invalid Interpretation Code SW UA U GLU 200 mg/dl *ABN* (02/16/25 11:41 AM) Invalid Interpretation Code Negative SW UA U LEUKEST 75 Emily/ul 11 *ABN* (02/16/25 11:41 AM) Invalid Interpretation Code Negative SW UA Comment on above: Interpretive Data: L eukocyte Esterase, U: Trace = 25 Emily/uL Small = 75 Emily/uL Moderate = 250 Emily/uL Large = 500 Emily/uL and greater U MUC Occasional *NA* (02/16/25 11:41 AM) Invalid Interpretation Code SW UA U NITRATE Negative (02/16/25 11:41 AM) Normal Negative SW UA U PROTEIN 20 mg/dl *ABN* (02/16/25 11:41 AM) Invalid Interpretation Code Negative SW UA U RBC #/HPF High 0 - 3 #/HPF SW UA U SPGR 1.029 1 Normal 1.001 - 1.035 SW UA U UROBGN < 2 mg/dl 10 (02/16/25 11:41 AM) Normal < 2 mg/dl SW [facility] Comment on above: Interpretive Data: U robilinogen, U: EU/dl and mg/dl are equivalent units. U WBC 10 #/HPF High 0 - 5 #/HPF SW UA UAon 02-16-2025 U MICRO Indicated Normal [facility] Comment on above: Performed By: #### 1 [id number] #### [facility] [address] [place], [place] [address] Fire And Explosion Investigator: Shin Flood MD Appearance, U Hazy Abnormal Clear [facility] Comment on above: Performed By: #### 1 93517 #### [facility] [address] [place], [place] [address] Fire And Explosion Investigator: Shin Flood MD Bilirubin, U Negative Normal Negative [facility] Comment on above: Result Comment: Bili etienne, U: Initial positive urine bilirubin results are not confirmed. Interfering substances may include elevated urobilinogen. Trace = 0.5-1.0 mg/dL Small = 2.0-4.0 mg/dL Moderate = 6.0-8.0 mg/dL Large = 10 mg/dl and greater Performed By: #### 1 83080 #### [facility] [address] [place] [address] Fire And Explosion Investigator: Shin Flood MD Blood, U > 1.0 mg/dl Abnormal Negative [facility] Comment on above: Result Comment: Bloo d, U: Trace = 0.03-0.05 mg/dL Small = 0.06-0.1 mg/dL Moderate = 0.2-0.5 mg/dL Large = 1.0 mg/dL and greater Performed By: #### 1 00727 #### [facility] [address] [place], [place] [address] Fire And Explosion Investigator: Shin Flood MD Calcium Oxalate Crystals Many Normal [facility] Comment on above: Performed By: #### 1 80765 #### [facility] [address] [place] [address] Fire And Explosion Investigator: Shin Flood MD Color, U Yellow Normal Yellow [facility] Comment on above: Performed By: #### 1 90040 #### [facility] [address] [place] [address] Fire And Explosion Investigator: Shin Flood MD Glucose Qual, U 200 mg/dl Abnormal Negative [facility] Comment on above: Performed By: #### 1 90148 #### [facility] [address] [place] [address]34 Fire And Explosion Investigator: Shin Flood MD Ketones, U Negative Normal Negative [facility] Comment on above: Performed By: #### 1 24041 #### [facility] [address] [place] [address] Fire And Explosion Investigator: Shin Flood MD Leukocyte Esterase, U 75 Emily/ul Abnormal Negative [facility] Comment on above: Result Comment: Leuk ocyte Esterase, U: Trace = 25 Emily/uL Small = 75 Emily/uL Moderate = 250 Emily/uL Large = 500 Emily/uL and greater Performed By: #### 1 80559 #### [facility] [address] [place], [place] [address] Fire And Explosion Investigator: Shin Flood MD Mucous, U Occasional Normal [facility] Comment on above: Performed By: #### 1 58572 #### [facility] [address] [place] [address] 19920 Fire And Explosion Investigator: Shin Flood MD Nitrite, U Negative Normal Negative [facility] Comment on above: Performed By: #### 1 37450 #### [facility] [address] [place] [address] 86845 Fire And Explosion Investigator: Shin Flood MD pH, U 5.5 Normal 4.5-8.0 [facility] Comment on above: Performed By: #### 1 35585 #### [facility] [address] [place], [place] [address] Fire And Explosion Investigator: Shin Flood MD Protein, U 20 mg/dl Abnormal Negative [facility] Comment on above: Performed By: #### 1 25650 #### [facility] [address] [place], [place] [address] Fire And Explosion Investigator: Shin Flood MD RBC/HPF, U >150 High 0-3 [facility] Comment on above: Performed By: #### 1 25403 #### [facility] [address] [place], [place] [address] Fire And Explosion Investigator: Shin Flood MD Specific [place], U 1.029 Normal 1.001-1. 03 5 [facility] Comment on above: Performed By: #### 1 28179 #### [facility] [address] [place], [place] [address] Fire And Explosion Investigator: Shin Flood MD Urobilinogen Qual, U < 2 mg/dl Normal < 2 mg/dl [facility] Comment on above: Result Comment: Urob ilinogen, U: EU/dl and mg/dl are equivalent units. Performed By: #### 1 47209 #### [facility] [address] [place] [address] Fire And Explosion Investigator: Shin Flood MD WBC/HPF, U 10 #/HPF High 0-5 [facility] Comment on above: Performed By: #### 1 99676 #### [facility] [address] [place] [address] Fire And Explosion Investigator: Shin Flood MD XR ABDOMEN 1V PORTABLEon XR ABDOMEN 1V PORTABLE EXAM: XR ABDOMEN 1 VIEW (KUB) CLINICAL INFORMATION: known 8mm right sided kidney stone;OTHER REASON COMPARISON: None available at time of interpretation. FINDINGS: Supine view of the abdomen. Examination is suboptimal due to patient's body habitus. Normal bowel gas pattern. Evidence of previous cholecystectomy. No radiopaque renal calculi. Severe degeneration of the spine IMPRESSION: No radiopaque renal calculi seen on this exam given limitations discussed above. Electronically signed by: Enid Og MD 02/16/2025 02:21 PM EDT RP Technologist: MARCIA STEINBERG Dictated By: ENID OG MD Signed By: ENID GO MD Signed Out: 02/16/25 14:21:41 Normal [facility]ALTHon 02-07-2025 ALLIED HEALTH HNO ID: [id number] Author: EMMA JULES RT(R) Service: Radiology Author Type: Technologist Type: Allied Health Filed: 02/07/2025 17:46 Note Text: Radiology Service Progress Note DATE OF SERVICE: February 07, 2025 TIME: 5:44 PM PATIENT IDENTITY VERIFICATION COMPLETED USING TWO (2) STANDARD IDENTIFIERS: Name and Date of confirmed by patient verbally. FALL SCREENING: Has the patient had 2 falls in the last year or 1 fall with injury or currently using an Ambulatory Assistive Device (Walker, Cane, Wheelchair, Crutches, etc.)? Emergency Room Patient: Screened in ED PATIENT GENDER DATA: Assigned male at PATIENT RELEVANT IMPLANT DATA REVIEWED: Not Applicable PATIENT PRESENTS WITH AN IMPLANTABLE OR ATTACHED INSPECTOR FINAL ASSEMBLY MECHANICAL: No ALLERGIES: Reviewed and unchanged CONTRAST ALLERGY: NO. EXAM: CT -CONTRAST INDUCED NEPHROPATHY RISK FACTORS: Diabetic: No CREATININE: Creatinine Date Value Ref Range Status 02/07/2025 1.13 0.73 - 1.22 mg/dL Final 12/04/2022 1.13 0.73 - 1.22 mg/dL Final 10/03/2021 1.09 0.73 - 1.22 mg/dL Final Estimated Glomerular Filtration Rate Date Value Ref Range Status 02/07/2025 75 >=60 mL/min/1.73m? Final Comment: Estimated Glomerular Filtration Rate (eGFR) is calculated using the 2020 CKD-EPI creatinine equation. This equation utilizes serum creatinine, sex, and age as parameters. The creatinine assay has traceable calibration to isotope dilution-mass spectrometry. Refer to KDIGO guidelines for clinical interpretation. In patients with unstable renal function, e.g. those with acute kidney injury, the eGFR may not accurately reflect actual GFR. eGFR- Date Value Ref Range Status 03/06/2021 >60 Final P.O.C.T. RESULTS: POC done: Yes, See Lab Tab February 07, 2025 TREATMENT: N/A PERIPHERAL IV DATA: Inpatient - refer to LDA documentation RADIOLOGY DEPARTMENT: CT; Exam(s) Completed: Abdomen/Pelvis . Anesthesia: No SIGNATURE: RT Kelsey(R) PATIENT NAME: Jame Wallace DATE: February 07, 2025 TIME: 5:44 PM Normal [facility] Basic metabolic 2000 panelon 02-07-2025 Anion gap [Moles/Vol] 11 mmol/L Normal 8-15 [facility] Comment on above: Order Comment: Speci men Type: BLOOD SPECIMENOrdering Facility: [facility] Address: [address] [place] [address] Performed By: #### 2 4321-2 ####[facility] LABCLIA [id number] [place] [address] [place] Calcium [Mass/Vol] 9.4 mg/dL Normal 8.5-10.2 [facility] Comment on above: Order Comment: Speci men Type: BLOOD SPECIMENOrdering Facility: [facility] Address: [address] [place] [address] Performed By: #### 2 4321-2 ####[facility] LABCLIA [id number] [place] [address] [place] Chloride [Moles/Vol] 101 mmol/L Normal 98-107 [facility] Comment on above: Order Comment: Speci men Type: BLOOD SPECIMENOrdering Facility: [facility] Address: [address] [place] [address] Performed By: #### 2 4321-2 ####[facility] LABCLIA [id number] [facility] [place] [address] [place] CO2 [Moles/Vol] 27 mmol/L Normal 22-30 [facility] Comment on above: Order Comment: Speci men Type: BLOOD SPECIMENOrdering Facility: [facility] Address: [facility] [place] [address] Performed By: #### 2 4321-2 ####[facility] LABCLIA [id number] [facility] [place] [address] [place] Creatinine [Mass/Vol] 1.13 mg/dL Normal 0.73-1.22 [facility] Comment on above: Order Comment: Lucas olson Type: BLOOD SPECIMENOrdering Facility: [facility] Address: [address] [place] [address] Performed By: #### 2 4321-2 ####[facility] LABCLIA [id number] [place] [address] [facility] eGFRcr SerPlBld CKD-EPI 2020 75 mL/min/1.73m??? Normal >=60 [facility] Comment on above: Order Comment: Lucas wesley Type: BLOOD SPECIMENOrdering Facility: [facility] Address: [address] [place] [address] Result Comment: Delaney mated Glomerular Filtration Rate (eGFR) is calculated using the 2020 CKD-EPI creatinine equation. This equation utilizes serum creatinine, sex, and age as parameters. The creatinine assay has traceable calibration to isotope dilution-mass spectrometry. Refer to KDIGO guidelines for clinical interpretation. In patients with unstable renal function, e.g. those with acute kidney injury, the eGFR may not accurately reflect actual GFR. Performed By: #### 2 4321-2 ####[facility] LABCLIA [id number] [place] [address] [place] Glucose [Mass/Vol] 119 mg/dL High 74-99 [facility] Comment on above: Order Comment: Lucas wesley Type: BLOOD SPECIMENOrdering Facility: [facility] Address: [address] [place] [address] Result Comment: The [place] Diabetes Association (ADA) provides guidance for cutoff values for fasting glucose and random glucose. The ADA defines fasting as no caloric intake for at least 8 hours. Fasting plasma glucose results between 100 to 125 mg/dL indicate increased risk for diabetes (prediabetes). Fasting plasma glucose results greater than or equal to 126 mg/dL meet the criteria for diagnosis of diabetes. In the absence of unequivocal hyperglycemia, results should be confirmed by repeat testing. In a patient with classic symptoms of hyperglycemia or hyperglycemic crisis, random plasma glucose results greater than or equal to 200 mg/dL meet the criteria for diagnosis of diabetes. Reference: Standards of Medical Care in Diabetes 2016, [place] Diabetes Association. Diabetes Care. 2016.39(Suppl 1). Performed By: #### 2 4321-2 ####[facility] LABCLIA [id number] [place] [address] [place] Potassium [Moles/Vol] 4.5 mmol/L Normal 3.7-5.1 [facility] Comment on above: Order Comment: Speci men Type: BLOOD SPECIMENOrdering Facility: [facility] Address: [address] [place] [address] Performed By: #### 2 4321-2 ####[facility] LABCLIA [id number] [place] [address] [place] Sodium [Moles/Vol] 139 mmol/L Normal 136-144 [facility] Comment on above: Order Comment: Speci men Type: BLOOD SPECIMENOrdering Facility: [facility] Address: [address] [place] [address] Performed By: #### 2 4321-2 ####[facility] LABCLIA [id number] [place] [address] [place] Urea nitrogen [Mass/Vol] 14 mg/dL Normal 9-24 [facility] Comment on above: Order Comment: Speci men Type: BLOOD SPECIMENOrdering Facility: [facility] Address: [address] [place] [address] Performed By: #### 2 4321-2 ####[facility] LABCLIA [id number] [place] [address] [place] CBC panel Auto (Bld)on 02-07 Erythrocyte distribution width (RBC) [Ratio] 13.7 % Normal 11.5-15.0 [facility] Comment on above: Order Comment: Speci men Type: BLOOD SPECIMENOrdering Facility: [facility] Address: [address] [place] [address] Performed By: #### 5 8410-2 ####[facility] [employer] LABCLIA [id number] [place] [address] [place] Hematocrit (Bld) [Volume fraction] 41.2 % Normal 39.0-51.0 [facility] Comment on above: Order Comment: Speci men Type: BLOOD SPECIMENOrdering Facility: [facility] Address: [address] [place] [address] Performed By: #### 5 8410-2 ####[facility] LABCLIA [id number] [place] [address] [facility] Hemoglobin (Bld) [Mass/Vol] 12.9 g/dL Low 13.0-17.0 [facility] Comment on above: Order Comment: Speci men Type: BLOOD SPECIMENOrdering Facility: [facility] Address: [address] [place] [address] Performed By: #### 5 8410-2 ####[facility] LABCLIA [id number] [place] [address] [place] [facility] MCH (RBC) [Entitic mass] 30.5 pg Normal 26.0-34.0 [facility] Comment on above: Order Comment: Speci men Type: BLOOD SPECIMENOrdering Facility: [facility] Address: [address] [place] [address] Performed By: #### 5 8410-2 ####[facility] LABCLIA [id number] [place] [address] [place] MCHC (RBC) [Mass/Vol] 31.3 g/dL Normal 30.5-36.0 [facility] Comment on above: Order Comment: Speci men Type: BLOOD SPECIMENOrdering Facility: [facility] Address: [address] [place] [address] Performed By: #### 5 8410-2 ####[facility] LABCLIA [id number] [place] [address] [facility] MCV (RBC) [Entitic vol] 97.4 fL Normal 80.0-100.0 [facility] Comment on above: Order Comment: Speci men Type: BLOOD SPECIMENOrdering Facility: [facility] Address: [address] [place] [address] Performed By: #### 5 8410-2 ####[facility] [place] LABCLIA [id number] [facility] [place] [address] [place] Platelet mean volume (Bld) [Entitic vol] 11.2 fL Normal 9.0-12.7 [facility] Comment on above: Order Comment: Speci men Type: BLOOD SPECIMENOrdering Facility: [facility] Address: [address] [place] [address] Performed By: #### 5 8410-2 ####[facility] [place] LABCLIA [id number] [place] [address] [facility] [place] Platelets (Bld) [#/Vol] 227 10*3/uL Normal 150-400 [facility] Comment on above: Order Comment: Speci men Type: BLOOD SPECIMENOrdering Facility: [facility] Address: [address] [place] [address] Performed By: #### 5 8410-2 ####[facility] LABCLIA [id number] [facility] [place] [address] [place] RBC (Bld) [#/Vol] 4.23 10*6/uL Normal 4.20-6.00 [facility] Comment on above: Order Comment: Speci men Type: BLOOD SPECIMENOrdering Facility: [facility] Address: [address] [place] [address] Performed By: #### 5 8410-2 ####[facility] [place] LABCLIA [id number] [place] [address] [place] WBC (Bld) [#/Vol] 8.92 10*3/uL Normal 3.70-11.00 [facility] Comment on above: Order Comment: Speci men Type: BLOOD SPECIMENOrdering Facility: [facility] Address: [address] [place] [address] Performed By: #### 5 8410-2 ####[facility] [place] LABCLIA [id number] [place] [address] [place] CT ABD/PEL W IVCONon -06-[address] ABD/PEL W IVCON * * *Final Report* * * DATE OF EXAM: Feb 07 2025 5:43PM [facility] 0530 - CT ABD/PEL W IVCON / PROCEDURE REASON: Pelvic pain, male * * * * Physician Interpretation * * * * EXAMINATION: CT ABDOMEN AND PELVIS WITH IV CONTRAST CLINICAL HISTORY: Hematuria. TECHNIQUE: CT of the abdomen and pelvis was performed using standard technique, scanning from just above the dome of the diaphragm to the symphysis pubis. MQ: CTAP_3 Contrast: IV: 150 ml of Omnipaque 300 : ml of CT Radiation dose: Integrated Dose-length product (DLP) for this visit = 1312.70 mGy*cm. CT Dose Reduction Employed: Automated exposure control(AEC) and iterative recon COMPARISON: CT scan of the abdomen and pelvis March 03, 2021 RESULT: Liver: No mass. Biliary: No bile duct dilation. Post cholecystectomy. Spleen: No mass. No splenomegaly. Pancreas: No mass or duct dilation. Adrenals: No mass. Kidneys: Nonobstructing 0.8 cm stone at the right pelviureteral junction. Normal parenchymal enhancement in the right kidney without cystic or solid lesion. Stable hypodense too small to characterize left renal lesions, most likely cysts. GI tract: No dilation or wall thickening. Lymph nodes: No abdominal or pelvic lymphadenopathy. Mesentery/Peritoneum: No ascites or mass. Retroperitoneum: No mass. Vasculature: Abdominal aorta is normal in caliber. Celiac axis, SMA, bilateral renal arteries, bilateral common iliac arteries and their branches are patent. SMV, portal and splenic veins are patent. Pelvis: No mass, ascites or fluid collection. No urinary bladder stones. Bones/Soft Tissues: Degenerative changes in the lumbar spine.. Lower thorax: Estimated right hemidiaphragm with compressive atelectasis Localizer images: No additional findings. IMPRESSION: Nonobstructing 0.8 cm stone at the right pelviureteral junction. Coordinator Skill Training Program: PAUL Transcribe Date/Time: Feb 07 2025 7:47P Dictated by : JUNIE FERRARO MD This examination was interpreted and the report reviewed and electronically signed by: JUNIE FERRARO MD on Feb 07 2025 7:53PM EST [id number] Normal [facility] ED NOTEon 02-07-2025 ED NOTE HNO ID: [id number] Author: LISSET MACIAS RN Service: Emergency Medicine Author Type: Registered Nurse Type: ED Notes Filed: 02/08/2025 10:22 Note Text: Patient Call Back Information How are you doing ? better Did we appropriately manage your pain? Yes Did you understand your discharge instructions? Yes Did you get your prescriptions filled? Yes Were you able to make a follow-up appointment with your physician? Yes Were you comfortable during your stay here? Yes Did a member of the ER nursing team round on you during your visit? Yes You will receive a patient satisfaction survey in the mail in the nest 2 weeks, please take the time to fill out the survey as your input from your ER visit is very important to us. Yes Can we do anything else to help you? No Normal [facility] ED NOTE HNO ID: [id number] Author: MANDO RINCON RN Service: Nursing Author Type: Registered Nurse Type: ED Notes Filed: 02/07/2025 20:25 Note Text: Pt verbalizes understanding of discharge instructions. Pt able to ambulate out of ED. Normal [facility] ED NOTE HNO ID: [id number] Author: MANDO RINCON RN Service: Nursing Author Type: Registered Nurse Type: ED Notes Filed: 02/07/2025 15:42 Note Text: Pt reports he noticed blood in his urine and abdominal pain this morning Normal [facility] ED PROV NOTEon 02-07-2025 ED PROV NOTE HNO ID: [id number] Author: SALUD CRESPO MD Service: Emergency Medicine Author Type: Physician Type: ED Provider Notes Filed: 02/07/2025 20:15 Note Text: ED Provider Note Patient Name: Jame Wallace : 1965 SERVICE DATE: 02/07/25 History Patient presents with: Hematuria Jame Wallace is a 59 year old male with history of diabetes who presents with Hematuria. Patient took nothing for this prior to arrival. - Symptoms began this morning. - Severity: moderate - Timing: intermittent - Quality: Grossly bloody urine - Hematuria is exacerbated by nothing. - Hematuria is not exacerbated by movement. - Symptoms are associated with some dull discomfort in the suprapubic region. - Symptoms are not associated with clots. - Improved by nothing. - Not improved by rest Patient noticed blood in urine today but no other significant symptoms. He has never had this problem before.. PAST MEDICAL HISTORY Diagnosis Date Benign neoplasm of colon COVID-19 08/09/2020 Diabetes (HCC) Diverticulitis Diverticulitis of colon (without mention of hemorrhage)(562.11) Morbidly obese (HCC) Neuropathy Osteoarthritis Paralyzed hemidiaphragm Raynaud phenomenon Rheumatoid arthritis of hand (HCC) PAST SURGICAL HISTORY Procedure Laterality Date APPENDECTOMY 06/2007 CHOLECYSTECTOMY 05/2004 COLONOSCOPY FLX DX W/COLLJ SPEC WHEN PFRMD 2003, 2004 ESOPHAGOGASTRODUODENOSCOPY TRANSORAL DIAGNOSTIC 2004 INCISION AND DRAINAGE OF WOUND (IANDD) HX 03/02/[address] Vo KNEE SURGERY HX Right 01/2018 LAP COLECTOMY, SIGMOID W/FRUIT COORDINATOR 06/2007 Diverticulitis LIPOMA (LARGE) 04/25/2013 excision, back ORTHOPEDICS SURGERY HX FAMILY HISTORY Problem Relation Age of Onset other (colonic polyps) Father other (Esophageal Cancer) Father Colon Cancer Mother rectal fistual Diabetes Mother Social History[1] ALLERGIES Allergen Reactions Pregabalin Unknown Review of Systems Constitutional: Negative for chills, fatigue and fever. Respiratory: Negative for cough and shortness of breath. Gastrointestinal: Negative for abdominal pain, nausea and vomiting. Genitourinary: Positive for hematuria. Negative for dysuria and flank pain. Musculoskeletal: Negative for back pain and neck pain. Allergic/Immunologic: Negative for environmental allergies, food allergies and immunocompromised state. Neurological: Negative for syncope and light-headedness. Physical Exam Vitals BP Pulse Temp Temp src Resp SpO2 Weight Height 02/07/25 1542 02/07/25 1542 02/07/25 1542 -- 02/07/25 1542 02/07/25 1542 02/07/25 1537 -- 158/86 63 36.5 ?C (97.7 ?F) 16 95 % (!) 145.2 kg (320 lb) Physical Exam Constitutional: General: He is not in acute distress. Appearance: Normal appearance. He is not ill-appearing, toxic-appearing or diaphoretic. Comments: Elevated BMI HENT: Head: Normocephalic and atraumatic. Eyes: Extraocular Movements: Extraocular movements intact. Conjunctiva/sclera: Conjunctivae normal. Cardiovascular: Rate and Rhythm: Normal rate and regular rhythm. Pulses: Normal pulses. Abdominal: General: There is no distension. Palpations: Abdomen is soft. Tenderness: There is no abdominal tenderness. There is no right CVA tenderness or left CVA tenderness. Skin: General: Skin is warm and dry. Capillary Refill: Capillary refill takes less than 2 seconds. Findings: No rash. Neurological: General: No focal deficit present. Mental Status: He is alert and oriented to person, place, and time. Psychiatric: Mood and Affect: Mood normal. Behavior: Behavior normal. Diagnostic Testing ED Labs Ordered and Reviewed - No data to display Procedures ED Course / Clinical Impression Clinical Impressions as of 02/07/252012 Gross hematuria Ureteral calculus, right MDM / Disposition / Plan Essentially painless hematuria maybe a little bit of dull suprapubic discomfort but no true dysuria. UA grossly bloody I did send it for analysis possible culture might be helpful. Labs and CT ordered. Discussed with patient the need for urology follow-up I do not think he needs transfer or admission tonight. I am advising him to continue to push fluids to make sure he does not develop any clots or urinary retention I do not see any evidence of that right now. Recommend discontinue baby aspirin for now. Nonobstructing proximal 8 mm right ureteral stone. History and Record Review Clinical information obtained from an independent historian. History obtained from or confirmed by: family member. Differential Diagnoses - Gross hematuria is more likely for the following reason(s): suggested by HANDP - UTI is less likely for the following reason(s): HANDP not suggestive and no evidence on imaging Management Radiology Reports CT ABD/PEL W IVCON Final Result IMPRESSION: Nonobstructing 0.8 cm stone at the right pelviureteral junction. Trans (more content not included)... Normal [facility] Urinalysis complete panel (U )on 02-07-2025 Bacteria LM.HPF (Urine sed) [#/Area] Few Abnormal None Seen [facility] Comment on above: Order Comment: Speci men Type: URINE SPECIMENOrdering Facility: [facility] Address: [address] [place], [place] [address] [id number] Performed By: #### 2 4917-8 ####[facility] [place] LABCLIA [id number] [place] [address] [place] Bilirubin Ql (U) Negative Normal Negative [facility] Comment on above: Order Comment: Speci men Type: URINE SPECIMENOrdering Facility: [facility] Address: [address] [place] [address] Performed By: #### 2 4356-8 ####[facility] [place] LABCLIA [id number] [facility] [place] [address] [facility] Clarity (Unsp spec) Cloudy Abnormal Clear [facility] Comment on above: Order Comment: Speci men Type: URINE SPECIMENOrdering Facility: [facility] Address: [address] [place] [address] Performed By: #### 2 4356-8 ####[facility] [place] LABCLIA [id number] [place] [address] [facility] Color (U) Brown Abnormal Yellow [facility] Comment on above: Order Comment: Speci men Type: URINE SPECIMENOrdering Facility: [facility] Address: [address] [place] [address] Performed By: #### 2 4356-8 ####[facility] [place] LABCLIA [id number] [place] [address] [facility] Glucose Test strip (U) [Mass/Vol] Negative Normal Negative [facility] Comment on above: Order Comment: Speci men Type: URINE SPECIMENOrdering Facility: [facility] Address: [address] [place] [address] Performed By: #### 2 4356-8 ####[facility] [place] LABCLIA [id number] [place] [address] [facility] Hemoglobin Ql (U) 3+ Abnormal Negative [facility] Comment on above: Order Comment: Speci men Type: URINE SPECIMENOrdering Facility: [facility] Address: [address] [place] [address] Performed By: #### 2 4356-8 ####[facility] [place] LABCLIA [id number] [place] [address] [facility] Ketones Ql (U) Negative Normal Negative [facility] Comment on above: Order Comment: Speci men Type: URINE SPECIMENOrdering Facility: [facility] Address: [address] [place] [address] Performed By: #### 2 4356-8 ####[facility] [place] LABCLIA [id number] [place] [address] [facility] Leukocyte esterase Test strip Ql (U) Negative Normal Negative [facility] Comment on above: Order Comment: Speci men Type: URINE SPECIMENOrdering Facility: [facility] Address: [address] [place] [address] Performed By: #### 2 4356-8 ####[facility] [place] LABCLIA [id number] [place] [address] [place] [facility] Nitrite Ql (U) Negative Normal Negative [facility] Comment on above: Order Comment: Speci men Type: URINE SPECIMENOrdering Facility: [facility] Address: [address] [place] [address] Performed By: #### 2 4356-8 ####[facility] [place] LABCLIA [id number] [place] [address] [place] pH (U) 5.5 [pH] Normal 5.0-8.0 [facility] Comment on above: Order Comment: Speci men Type: URINE SPECIMENOrdering Facility: [facility] Address: [address] [place] [address] Performed By: #### 2 4356-8 ####[facility] [place] LABCLIA [id number] [place] [address] [facility] Protein (U) [Mass/Vol] 2+ Abnormal Negative [facility] Comment on above: Order Comment: Speci men Type: URINE SPECIMENOrdering Facility: [facility] Address: [address] [place] [address] Performed By: #### 2 4356-8 ####[facility] [place] LABCLIA [id number] [place] [address] [facility] RBC LM.HPF (Urine sed) [#/Area] /[HPF] Abnormal 0-3 /HPF [facility] Comment on above: Order Comment: Speci men Type: URINE SPECIMENOrdering Facility: [facility] Address: [address] [place] [address] Performed By: #### 2 4356-8 ####[facility] LABCLIA [id number] [place] [id number] [facility] Specific gravity (U) [Rel density] 1.020 Normal 1.005-1.03 0 [facility] Comment on above: Order Comment: Speci men Type: URINE SPECIMENOrdering Facility: [facility] Address: [address] [place] [address] Performed By: #### 2 4356-8 ####[facility] LABIA [id number] [place] [id number] [facility] Urobilinogen Ql (U) 0.2 EU/dL Normal 0.2-1.0 EU/dL [facility] Comment on above: Order Comment: Speci men Type: URINE SPECIMENOrdering Facility: [facility] Address: [address] [place] [address] Performed By: #### 2 4356-8 ####[facility] LABCLIA [id number] [place] [id number] [facility] WBC LM.HPF (Urine sed) [#/Area] 0-5 /HPF Normal 0-5 /HPF [facility] Comment on above: Order Comment: Speci men Type: URINE SPECIMENOrdering Facility: [facility] Address: [address] [place] [address] Performed By: #### 2 4356-8 ####[facility] LABCLIA [id number] [place] [address] [facility] ED NOTEon 11-17-2024 ED NOTE HNO ID: [id number] Author: MALIKA KLINE RN Service: ? Author Type: Registered Nurse Type: ED Notes Filed: 11/17/2024 07:49 Note Text: Pt given discharge instructions, pt questions answered and pt denies any further questions at time of discharge. Pt ambulates out of dept with a steady gait. 1 [facility] [place] Normal [facility] ED NOTE HNO ID: [id number] Author: MALIKA KLINE RN Service: ? Author Type: Registered Nurse Type: ED Notes Filed: 11/17/2024 07:30 Note Text: Dr vivar at bedside for exam with nurse and spouse present in room Normal [facility] ED NOTE HNO ID: [id number] Author: MALIKA KLINE RN Service: ? Author Type: Registered Nurse Type: ED Notes Filed: 11/17/2024 07:18 Note Text: Pt noticed swelling to his scrotum last night, swelling and pain are worse this am Normal [facility] ED PROV NOTEon 11-17-2024 ED PROV NOTE HNO ID: [id number] Author: DENY VIVAR MD Service: Emergency Medicine Author Type: Physician Type: ED Provider Notes Filed: 11/17/2024 07:40 Note Text: ED Provider Note Patient Name: Jame Wallace : 1965 SERVICE DATE: 11/17/24 History Patient presents with: Penis/Scrotum Problem HPI 59-year-old gentleman has history as below coming in with concerns for pain to the perineum. History is provided by patient, spouse at the bedside. He states that yesterday evening he noticed a small lump while cleaning. States that just hit the area. He had no pain last night. Woke up this morning went to the bathroom and noticed discomfort at the site of that small bump. He is not having any pain swelling redness in the scrotum or penis but rather it is more towards the anus. He is having no fevers or chills, no nausea or vomiting. Was worried about a possible abscess and so presents for ED assessment. PAST MEDICAL HISTORY Diagnosis Date - Benign neoplasm of colon - COVID-19 08/09/2020 - Diabetes (HCC) - Diverticulitis - Diverticulitis of colon (without mention of hemorrhage)(562.11) - Morbidly obese (HCC) - Neuropathy - Osteoarthritis - Paralyzed hemidiaphragm - Raynaud phenomenon - Rheumatoid arthritis of hand (HCC) PAST SURGICAL HISTORY Procedure Laterality Date - APPENDECTOMY 06/2007 - CHOLECYSTECTOMY 05/2004 - COLONOSCOPY FLX DX W/COLLJ SPEC WHEN PFRMD 2003, 2004 - ESOPHAGOGASTRODUODENOSCOPY TRANSORAL DIAGNOSTIC 2004 - INCISION AND DRAINAGE OF WOUND (IANDD) HX 03/02/[address] Vo - KNEE SURGERY HX Right 01/2018 - LAP COLECTOMY, SIGMOID W/FRUIT COORDINATOR 06/2007 Diverticulitis - LIPOMA (LARGE) 04/25/2013 excision, back - ORTHOPEDICS SURGERY HX FAMILY HISTORY Problem Relation Age of Onset - other (colonic polyps) Father - other (Esophageal Cancer) Father - Colon Cancer Mother rectal fistual - Diabetes Mother Social History Tobacco Use - Smoking status: Never - Smokeless tobacco: Never Vaping Use - Vaping status: Never Used Substance and Sexual Activity - Alcohol use: No - Drug use: No - Sexual activity: Not on file ALLERGIES Allergen Reactions - Pregabalin Unknown Review of Systems Per HPI Physical Exam Vitals [11/17/24 0713] BP Pulse Temp Temp src Resp SpO2 Weight Height 133/75 65 36.5 ?C (97.7 ?F) Temporal Art 18 95 % (!) 145.2 kg (320 lb) 1.88 m (6' 2) Physical Exam Vitals and nursing note reviewed. Constitutional: General: He is not in acute distress. Appearance: He is well-developed. HENT: Head: Normocephalic and atraumatic. Eyes: Conjunctiva/sclera: Conjunctivae normal. Neck: Trachea: No tracheal deviation. Cardiovascular: Rate and Rhythm: Normal rate and regular rhythm. Heart sounds: Normal heart sounds. Pulmonary: Effort: Pulmonary effort is normal. No respiratory distress. Breath sounds: Normal breath sounds. Abdominal: General: Bowel sounds are normal. Palpations: Abdomen is soft. Genitourinary: Musculoskeletal: General: Normal range of motion. Cervical back: Normal range of motion. Skin: General: Skin is warm and dry. Neurological: Mental Status: He is alert and oriented to person, place, and time. Diagnostic Testing ED Labs Ordered and Reviewed - No data to display Procedures ED Course / Clinical Impression Clinical Impressions as of 11/17/24 0741 Cutaneous abscess of buttock Type 2 diabetes mellitus without complication, without long-term current use of insulin (HCC) MDM / Disposition / Plan MDM Patient is a 59-year-old male with history as above presenting with complaints of cutaneous abscess. History and exam as above. Medical record reviewed. Additional encounters reviewed: last PCP encounter from 10/24/24 HPI obtained from patient, spouse, medical record Triage Vitals reviewed: Vital signs are stable blood pressure 123/75, heart rate of 65. Afebrile triage temp 36.5 DDx considered : Patient arrives with small area of swelling, pain to the perineum. Physical exam findings concerning for cutaneous abscess. Considered possible Lucia's but he actually has no redness no swelling no pain or induration to the scrotum, extending along the perineum. He is not having systemic symptoms. ED COURSE: Patient is overall well-appearing, nontoxic in no obvious distress. Physical exam findings consistent with continued abscess. Palpation of the area did spontaneously start to drain. No crepitus or induration. Following spontaneous drainage of the cutaneous abscess, he did have significant improvement of pain symptoms. He has no further fluctuance, erythema significantly improved and not extending beyond the area of where that cutaneous abscess was. He does have a history of diabetes also consider possible deep space infection but based on exam findings and no systemic symptoms consulted less likely. No evid (more content not included)... Normal [facility] CBC W/Diff, Automatedon 05-2 -2024 Absolute Lymph 2.12 X10 3/uL Normal 0.83-4.51 [facility] Comment on above: Performed By: #### L 100.0100, L501.9520 #### [facility] [address] [place], [address] Absolute Neut 5.9 X10 3/uL Normal 2.0-7.7 [facility] Comment on above: Performed By: #### L 100.0100, L501.9520 #### [facility] [address] [place], [address] Basophils/100 WBC (Bld) 0.7 % Normal 0-1 [facility] Comment on above: Performed By: #### L 100.0100, L501.9520 #### [facility] [address] [place], [address] Eosinophils/100 WBC (Bld) 2.3 % Normal 0-5 [facility] Comment on above: Performed By: #### L 100.0100, L501.9520 #### [facility] [address] [place], [address] Erythrocyte distribution width (RBC) [Ratio] 14.2 % Normal 11.6-14.6 [facility] Comment on above: Performed By: #### L 100.0100, L501.9520 #### [facility] [address] [place], [address] Hematocrit (Bld) [Volume fraction] 44.0 % Normal 40-54 [facility] Comment on above: Performed By: #### L 100.0100, L501.9520 #### [facility] [address] [place], [address] Hemoglobin (Bld) [Mass/Vol] 14.2 g/dL Normal 13.0-16.5 [facility] Comment on above: Performed By: #### L 100.0100, L501.9520 #### [facility] [address] [place], [address] IG% 0.300 Normal 0.0-0.9 [facility] Comment on above: Result Comment: IG% - Immature Granulocytes (promyelocytes, myelocytes and metamyelocytes) > 1% indicates that a LEFT SHIFT is Present. Performed By: #### L 100.0100, L501.9520 #### [facility] [address] [place], [address] Lymphocytes/100 WBC (Bld) 22.6 % Normal 19-41 [facility] Comment on above: Performed By: #### L 100.0100, L501.9520 #### [facility] [address] [place], [address] MCH (RBC) [Entitic mass] 30.7 pg Normal 27.0-32.0 [facility] Comment on above: Performed By: #### L 100.0100, L501.9520 #### [facility] [address] [place], [address] MCHC (RBC) [Mass/Vol] 32.3 g/dL Normal 32-36 [facility] Comment on above: Performed By: #### L 100.0100, L501.20 #### [facility] [address] [place], [address] MCV (RBC) [Entitic vol] 95.2 fL High 80-94 [facility] Comment on above: Performed By: #### L 100.0100, L5.20 #### [facility] [address] [place], [address] Monocytes/100 WBC (Bld) 11.0 % High 0-10 [facility] Comment on above: Performed By: #### L 100.0100, L501.20 #### [facility] [address] [place], [address] Neutrophils/100 WBC (Bld) 63.1 % Normal 47-70 [facility] Comment on above: Performed By: #### L 100.0100, L5.20 #### [facility] [address] [place], [address] Nucleated RBC (Bld) [#/Vol] 0 10*3/uL Normal 0-5 [facility] Comment on above: Performed By: #### L 100.0100, L501.9520 #### [facility] [address] [place], [address] Platelet mean volume (Bld) [Entitic vol] 12.7 fL High 6.2-12.0 [facility] Comment on above: Performed By: #### L 100.0100, L501.9520 #### [facility] [address] [place], [address] Platelets (Bld) [#/Vol] 278 10*3/uL Normal 150-450 [facility] Comment on above: Performed By: #### L 100.0100, L501.9520 #### [facility] [address] [place], [address] RBC (Bld) [#/Vol] 4.62 10*6/uL Normal 4.6-6.2 [facility] Comment on above: Performed By: #### L 100.0100, L501.9520 #### [facility] [address] [place], [address] RDW SD 49.6 fl High 35.1-43.9 [facility] Comment on above: Performed By: #### L 100.0100, L501.9520 #### [facility] [address] [place], [address] WBC (Bld) [#/Vol] 9.4 10*3/uL Normal 4.4-11.0 [facility] Comment on above: Performed By: #### L 100.0100, L501.9520 #### [facility] [address] [place], [address] Thyroid Stim Hormone (TSH)on 10-24-2024 TSH 3.290 uIU/mL Normal 0.300-4.20 0 [facility] Comment on above: Performed By: #### L 100.0100, L501.9520 #### [facility] [address] [place], [address] Absolute lymphocyte countOrd ered By: Griffin Live on 10-23-2024 Lymphocytes Auto (Unsp spec) [#/Vol] 2.12 10*3/uL 0.83-4.51 [facility] Absolute neutrophil countOrd ered By: Griffin Live on 10-23-2024 Neutrophils (Bld) [#/Vol] 5.9 10*3/uL 2.0-7.7 [facility] Automated lymphocyte count a s percentage of total leukocytesOrdered By: Griffin Live on 10-23-2024 Lymphocytes/100 WBC Auto (Unsp spec) 22.6 % 19-41 [facility] Basophil percentageOrdered B y: Griffin Live on 10-23-2024 Basophils/100 WBC (Bld) 0.7 % 0-1 [facility] Eosinophil percentageOrdered By: Griffin Live on 10-23-2024 Eosinophils/100 WBC (Bld) 2.3 % 0-5 [facility] Erythrocyte distribution wid th ratioOrdered By: Griffin Live on 10-23-2024 Erythrocyte distribution width (RBC) [Ratio] 14.2 % 11.6-14.6 [facility] Erythrocyte distribution wid th standard deviationOrdered By: Griffin Live on 10-23-2024 Erythrocyte distribution width (RBC) [Ratio] 49.6 fl High 35.1-43.9 [facility] Hematocrit Auto (Bld) [Volum e fraction]Ordered By: Griffin Live on 10-23-2024 Hematocrit (Bld) [Volume fraction] 44.0 % 40-54 [facility] Hemoglobin measurementOrdere d By: Griffin Live on 10-23-2024 Hemoglobin (Bld) [Mass/Vol] 14.2 g/dL 13.0-16.5 [facility] Immature granulocytes/100 WB C Auto (Bld)Ordered By: Griffin Live on 10-23-2024 Immature granulocytes/100 WBC (Bld) 0.300 % 0.0-0.9 [facility] Comment on above: IG% - Immature Granu locytes (promyelocytes, myelocytes and metamyelocytes) > 1% indicates that a LEFT SHIFT is Present. MCV (mean corpuscular volume ) determinationOrdered By: Griffin Live on 10-23-2024 MCV (RBC) [Entitic vol] 95.2 fL High 80-94 [facility] Mean corpuscular hemoglobin (MCH) determinationOrdered By: Griffin Live on 10-23-2024 MCH (RBC) [Entitic mass] 30.7 pg 27.0-32.0 [facility] Mean corpuscular hemoglobin concentration (MCHC) determinationOrdered By: Griffin Live on 10-23-2024 MCHC (RBC) [Mass/Vol] 32.3 g/dL 32-36 [facility] Mean platelet volume determi nationOrdered By: Griffin Live on 10-23-2024 Platelet mean volume (Bld) [Entitic vol] 12.7 fL High 6.2-12.0 [facility] Monocyte percentageOrdered B y: Griffin Live on 10-23-2024 Monocytes/100 WBC (Bld) 11.0 % High 0-10 [facility] Neutrophil percentageOrdered By: Griffin Live on 10-23-2024 Neutrophils/100 WBC (Bld) 63.1 % 47-70 [facility] Nucleated red blood cell per centageOrdered By: Griffin Live on 10-23-2024 Nucleated RBC/100 WBC (Bld) [Ratio] 0 % 0-5 [facility] Platelet countOrdered By: Do ra Live on 10-23-2024 Platelets (Bld) [#/Vol] 278 10*3/uL 150-450 [facility] RBC Auto (Bld) [#/Vol]Ordere d By: Griffin Live on 10-23-2024 RBC (Bld) [#/Vol] 4.62 10*6/uL 4.6-6.2 [facility] TSH DL <= 0.005 mIU/L QnOrde red By: Griffin Live on 10-23-2024 TSH Qn 3.290 uIU/mL 0.300-4.20 0 [facility] White blood cell (WBC) count Ordered By: Griffin Live on 10-23-2024 WBC (Bld) [#/Vol] 9.4 10*3/uL 4.4-11.0 [facility] Absolute lymphocyte countOrd ered By: Griffin Live on 08-22-2024 Lymphocytes Auto (Unsp spec) [#/Vol] 1.80 10*3/uL 0.83-4.51 [facility] Absolute neutrophil countOrd ered By: Griffin Live on 08-22-2024 Neutrophils (Bld) [#/Vol] 8.7 10*3/uL High 2.0-7.7 [facility] Anion gap in Serum or Plasma Ordered By: Griffin Live on 08-22-2024 Anion gap [Moles/Vol] 13 mmol/L 5-15 [facility] Automated lymphocyte count a s percentage of total leukocytesOrdered By: Griffin Live on 08-22-2024 Lymphocytes/100 WBC Auto (Unsp spec) 15.3 % Low 19- [facility] BUN/creatinine ratioOrdered By: Griffin Live on 08-22-2024 Urea nitrogen/Creatinine [Mass ratio] 10.2 mg/mg 10- [facility] Basophil percentageOrdered B y: Griffin Live on 08-22-2024 Basophils/100 WBC (Bld) 0.5 % 0-1 [facility] Bilirubin, totalOrdered By: Griffin Live on 08-22-2024 Bilirubin [Mass/Vol] 0.28 mg/dL 0.00-1.30 [facility] CBC W/Diff, Automatedon 08-03 Absolute Lymph 1.80 X10 3/uL Normal 0.83-4.51 [facility] Comment on above: Performed By: #### L 100.0100, L501.9520 #### [facility] [address] [place], [address] Absolute Neut 8.7 X10 3/uL High 2.0-7.7 [facility] Comment on above: Performed By: #### L 100.0100, L501.9520 #### [facility] [address] [place], [address] Basophils/100 WBC (Bld) 0.5 % Normal 0-1 [facility] Comment on above: Performed By: #### L 100.0100, L501.9520 #### [facility] [address] [place], [address] Eosinophils/100 WBC (Bld) 1.1 % Normal 0-5 [facility] Comment on above: Performed By: #### L 100.0100, L501.9520 #### [facility] [address] [place], [id number] Erythrocyte distribution width (RBC) [Ratio] 14.1 % Normal 11.6-14.6 [facility] Comment on above: Performed By: #### L 100.0100, L501.9520 #### [facility] [address] [place], [id number] Hematocrit (Bld) [Volume fraction] 42.4 % Normal 40-54 [facility] Comment on above: Performed By: #### L 100.0100, L501.9520 #### [facility] [address] [place], [id number] Hemoglobin (Bld) [Mass/Vol] 13.9 g/dL Normal 13.0-16.5 [facility] Comment on above: Performed By: #### L 100.0100, L501.9520 #### [facility] [address] [place], [id number] IG% 0.300 Normal 0.0-0.9 [facility] Comment on above: Result Comment: IG% - Immature Granulocytes (promyelocytes, myelocytes and metamyelocytes) > 1% indicates that a LEFT SHIFT is Present. Performed By: #### L 100.0100, L501.9520 #### [facility] [address] [place], [address] Lymphocytes/100 WBC (Bld) 15.3 % Low 19-41 [facility] Comment on above: Performed By: #### L 100.0100, L501.9520 #### [facility] [address] [place], [address] MCH (RBC) [Entitic mass] 31.0 pg Normal 27.0-32.0 [facility] Comment on above: Performed By: #### L 100.0100, L501.9520 #### [facility] [address] [place], [address] MCHC (RBC) [Mass/Vol] 32.8 g/dL Normal 32-36 [facility] Comment on above: Performed By: #### L 100.0100, L501.9520 #### [facility] [address] [place], [address] MCV (RBC) [Entitic vol] 94.4 fL High 80-94 [facility] Comment on above: Performed By: #### L 100.0100, L501.9520 #### [facility] [address] [place], [address] Monocytes/100 WBC (Bld) 8.7 % Normal 0-10 [facility] Comment on above: Performed By: #### L 100.0100, L501.9520 #### [facility] [address] [place], [address] Neutrophils/100 WBC (Bld) 74.1 % High 47-70 [facility] Comment on above: Performed By: #### L 100.0100, L501.9520 #### [facility] [address] [place], [address] Nucleated RBC (Bld) [#/Vol] 0 10*3/uL Normal 0-5 [facility] Comment on above: Performed By: #### L 100.0100, L501.9520 #### [facility] [address] [place], [address] Platelet mean volume (Bld) [Entitic vol] 12.3 fL High 6.2-12.0 [facility] Comment on above: Performed By: #### L 100.0100, L501.9520 #### [facility] [address] [place], [address] Platelets (Bld) [#/Vol] 260 10*3/uL Normal 150-450 [facility] Comment on above: Performed By: #### L 100.0100, L501.9520 #### [facility] [address] [place], [address] RBC (Bld) [#/Vol] 4.49 10*6/uL Low 4.6-6.2 [facility] Comment on above: Performed By: #### L 100.0100, L501.9520 #### [facility] [address] [place], [id number] RDW SD 48.7 fl High 35.1-43.9 [facility] Comment on above: Performed By: #### L 100.0100, L501.9520 #### [facility] [address] [place], [address] WBC (Bld) [#/Vol] 11.8 10*3/uL High 4.4-11.0 [facility] Comment on above: Performed By: #### L 100.0100, L501.9520 #### [facility] [address] [place], [address] Carbon dioxide, total [Moles /volume] in Central venous bloodOrdered By: Griffin Live on 08-22-2024 CO2 [Moles/Vol] 25.1 mmol/L 21.0-32.0 [facility] Chloride assayOrdered By: Do ra Live on 08-22-2024 Chloride [Moles/Vol] 101 mmol/L 98-108 [facility] Comprehensive Metabolic Prof ilon 08-22-2024 Albumin [Mass/Vol] 4.1 g/dL Normal 3.5-5.0 [facility] Comment on above: Performed By: #### L 100.0100, L501.9520 #### [facility] [address] [place], [address] Albumin/Globulin [Mass ratio] 1.2 {ratio} Normal 0.9-2.4 [facility] Comment on above: Performed By: #### L 100.0100, L501.9520 #### [facility] [address] [place], [address] ALK PHOS 114 U/L Normal 40-129 [facility] Comment on above: Performed By: #### L 100.0100, L501.9520 #### [facility] [address] [place], [address] ALT [Catalytic activity/Vol] 18 U/L Normal <=46 [facility] Comment on above: Performed By: #### L 100.0100, L501.9520 #### [facility] [address] [place], [address] AST [Catalytic activity/Vol] 24 U/L Normal <=37 [facility] Comment on above: Performed By: #### L 100.0100, L501.9520 #### [facility] [address] [place], [address] Bilirubin [Mass/Vol] 0.28 mg/dL Normal 0.00-1.30 [facility] Comment on above: Performed By: #### L 100.0100, L501.9520 #### [facility] [address] [place], [address] BUN/CRE 10.2 RATIO Normal 10-20 [facility] Comment on above: Performed By: #### L 100.0100, L501.9520 #### [facility] [address] [place], [address] Calcium [Mass/Vol] 9.4 mg/dL Normal 7.6-11.0 [facility] Comment on above: Performed By: #### L 100.0100, L501.9520 #### [facility] [address] [place], [id number] Chloride [Moles/Vol] 101 mmol/L Normal 98-108 [facility] Comment on above: Performed By: #### L 100.0100, L501.9520 #### [facility] [address] [place], [id number] CO2 [Moles/Vol] 25.1 mmol/L Normal 21.0-32.0 [facility] Comment on above: Performed By: #### L 100.0100, L5.9520 #### [facility] [address] [place], [id number] Creatinine [Mass/Vol] 1.49 mg/dL High 0.70-1.20 [facility] Comment on above: Performed By: #### L 100.0100, L5.9519 #### [facility] [address] [place], [id number] GAP 13 Normal 5-15 [facility] Comment on above: Performed By: #### L 100.0100, L5.20 #### [facility] [address] [place], [id number] GFR/1.73 sq M.predicted among non-blacks MDRD (S/P/Bld) [Vol rate/Area] 54 mL/min/{1.73_m2} Low >60 [facility] Comment on above: Result Comment: mL/m in/1.73m2 CKD-EPI Creatinine Equation (2020) Performed By: #### L 100.0100, L5.9520 #### [facility] [address] [place], [address] Globulin (S) [Mass/Vol] 3.3 g/dL Normal 2.2-4.2 [facility] Comment on above: Performed By: #### L 100.0100, L5.20 #### [facility] [address] [place], [address] Glucose [Mass/Vol] 213 mg/dL High 70-99 [facility] Comment on above: Performed By: #### L 100.0100, L501.9520 #### [facility] [address] [place], [address] Potassium [Moles/Vol] 4.4 mmol/L Normal 3.3-5.1 [facility] Comment on above: Performed By: #### L 100.0100, L501.9520 #### [facility] [address] [place], [address] Sodium [Moles/Vol] 138 mmol/L Normal 133-145 [facility] Comment on above: Performed By: #### L 100.0100, L501.9520 #### [facility] [address] [place], [address] T PROT 7.4 g/dL Normal 5.9-8.4 [facility] Comment on above: Performed By: #### L 100.0100, L501.9520 #### [facility] [address] [place], [address] Urea nitrogen [Mass/Vol] 15 mg/dL Normal 4-19 [facility] Comment on above: Performed By: #### L 100.0100, L501.9520 #### [facility] [address] [place], [address] Eosinophil percentageOrdered By: Griffin Live on 08-22-2024 Eosinophils/100 WBC (Bld) 1.1 % 0-5 [facility] Erythrocyte distribution wid th ratioOrdered By: Griffin Live on 08-22-2024 Erythrocyte distribution width (RBC) [Ratio] 14.1 % 11.6-14.6 [facility] Erythrocyte distribution wid th standard deviationOrdered By: Griffin Live on 08-22-2024 Erythrocyte distribution width (RBC) [Entitic vol] 48.7 fL High 35.1-43.9 [facility] Erythrocyte distribution width (RBC) [Ratio] 48.7 fl High 35.1-43.9 [facility] GFR/1.73 sq M.predicted jud g non-blacks MDRD (S/P/Bld) [Vol rate/Area]Ordered By: Griffin Live on 08-22-2024 Estimated GFR (MDRD) Non-Af Amer 54 Low >60 [facility] Comment on above: mL/min/1.73m2 CKD-EP I Creatinine Equation (2020) Glomerular filtration rate ( GFR) estimation/1.73 sq m using serum, plasma, or whole bOrdered By: Griffin Live on 08-22-2024 GFR/1.73 sq M.predicted among non-blacks MDRD (S/P/Bld) [Vol rate/Area] 54 mL/min/{1.73_m2} Low >60 [facility] Comment on above: mL/min/1.73m2 CKD-EP I Creatinine Equation (2020) Hematocrit Auto (Bld) [Volum e fraction]Ordered By: Griffin Live on 08-22-2024 Hematocrit (Bld) [Volume fraction] 42.4 % 40-54 [facility] Hemoglobin A1con 08-22-2024 HbA1c (Bld) [Mass fraction] 8.4 % Normal <=5.6 [facility] Comment on above: Performed By: #### L 100.0100, L501.9520 #### [facility] [address] [place], [place] [address], [address] Hemoglobin A1c percentageOrd ered By: Griffin Live on 08-22-2024 HbA1c (Bld) [Mass fraction] 8.4 % >5.7 [facility] Hemoglobin measurementOrdere d By: Griffin Live on 08-22-2024 Hemoglobin (Bld) [Mass/Vol] 13.9 g/dL 13.0-16.5 [facility] Immature granulocytes/100 WB C Auto (Bld)Ordered By: Griffin Live on 08-22-2024 Immature granulocytes/100 WBC (Bld) 0.300 % 0.0-0.9 [facility] Comment on above: IG% - Immature Granu locytes (promyelocytes, myelocytes and metamyelocytes) > 1% indicates that a LEFT SHIFT is Present. Laboratory - Chemistry and C hemistry - challengeOrdered By: Griffin Live on 08-22-2024 AST [Catalytic activity/Vol] 24 U/L <38 [facility] Lymphocytes Auto (Unsp spec) [#/Vol]Ordered By: Griffin Live on 08-22-2024 Lymphocytes (Bld) [#/Vol] 1.80 10*3/uL 0.83-4.51 [facility] Lymphocytes/100 WBC Auto (Un sp spec)Ordered By: Griffin Live on 08-22-2024 Lymphocytes/100 WBC (Bld) 15.3 % Low 19-41 [facility] MCV (mean corpuscular volume ) determinationOrdered By: Griffin Live on 08-22-2024 MCV (RBC) [Entitic vol] 94.4 fL High 80-94 [facility] Mean corpuscular hemoglobin (MCH) determinationOrdered By: Griffin Live on 08-22-2024 MCH (RBC) [Entitic mass] 31.0 pg 27.0-32.0 [facility] Mean corpuscular hemoglobin concentration (MCHC) determinationOrdered By: Griffin Live on 08-22-2024 MCHC (RBC) [Mass/Vol] 32.8 g/dL 32-36 [facility] Mean platelet volume determi nationOrdered By: Griffin Live on 08-22-2024 Platelet mean volume (Bld) [Entitic vol] 12.3 fL High 6.2-12.0 [facility] Monocyte percentageOrdered B y: Griffin Live on 08-22-2024 Monocytes/100 WBC (Bld) 8.7 % 0-10 [facility] Neutrophil percentageOrdered By: Griffin Live on 08-22-2024 Neutrophils/100 WBC (Bld) 74.1 % High 47-70 [facility] Nucleated red blood cell per centageOrdered By: Griffin Live on 08-22-2024 Nucleated RBC/100 WBC (Bld) [Ratio] 0 % 0-5 [facility] Platelet countOrdered By: Do ra Live on 08-22-2024 Platelets (Bld) [#/Vol] 260 10*3/uL 150-450 [facility] Potassium (Unsp spec) [Mass/ Vol]Ordered By: Griffin Live on 08-22-2024 Potassium [Moles/Vol] 4.4 mmol/L 3.3-5.1 [facility] Potassium measurement (mass/ volume)Ordered By: Griffin Live on 08-22-2024 Potassium (Unsp spec) [Mass/Vol] 4.4 mmol/L 3.3-5.1 [facility] RBC Auto (Bld) [#/Vol]Ordere d By: Griffin Live on 08-22-2024 RBC (Bld) [#/Vol] 4.49 10*6/uL Low 4.6-6.2 [facility] Serum creatinine measurement (mass/volume)Ordered By: Griffin Live on 08-22-2024 Creatinine [Mass/Vol] 1.49 mg/dL High 0.70-1.20 [facility] Serum globulin measurementOr dered By: Griffin Live on 08-22-2024 Globulin (S) [Mass/Vol] 3.3 g/dL 2.2-4.2 [facility] Serum glucose measurement (m ass/volume)Ordered By: Griffin Live on 08-22-2024 Glucose [Mass/Vol] 213 mg/dL High 70-99 [facility] Serum or plasma alanine matos otransferase (ALT) measurementOrdered By: Griffin Live on 08-22-2024 ALT [Catalytic activity/Vol] 18 U/L <47 [facility] Serum or plasma albumin daly urement (mass/volume)Ordered By: Griffin Live on 08-22-2024 Albumin [Mass/Vol] 4.1 g/dL 3.5-5.0 [facility] Serum or plasma albumin/glob ulin mass ratioOrdered By: Griffin Live on 08-22-2024 Albumin/Globulin [Mass ratio] 1.2 {ratio} 0.9-2.4 [facility] Serum or plasma alkaline gunjan sphatase measurementOrdered By: Griffin Live on 08-22-2024 ALP [Catalytic activity/Vol] 114 U/L 40-129 [facility] Serum or plasma calcium daly urement (mass/volume)Ordered By: Griffin Live on 08-22-2024 Calcium [Mass/Vol] 9.4 mg/dL 7.6-11.0 [facility] Serum or plasma urea nitroge n measurement (mass/volume)Ordered By: Griffin Live on 08-22-2024 Urea nitrogen [Mass/Vol] 15 mg/dL 4-19 [facility] Sodium levelOrdered By: Griffin Live on 08-22-2024 Sodium [Moles/Vol] 138 mmol/L 133-145 [facility] TSH DL <= 0.005 mIU/L QnOrde red By: Griffin Live on 08-22-2024 Thyroid Stimulating Hormone (TSH) 4.690 uIU/mL High 0.300-4.20 0 [facility] TSH Qn 4.690 uIU/mL High 0.300-4.20 0 [facility] Thyroid Stim Hormone (TSH)on 08-22-2024 TSH 4.690 uIU/mL High 0.300-4.20 0 [facility] Comment on above: Performed By: #### L 100.0100, L501.9520 #### [facility] [address] [place] [address]. [place], [place], [id number] Total proteinOrdered By: Taryn Live on 08-22-2024 Protein [Mass/Vol] 7.4 g/dL 5.9-8.4 [facility] White blood cell (WBC) count Ordered By: Griffin Live on 08-22-2024 WBC (Bld) [#/Vol] 11.8 10*3/uL High 4.4-11.0 [facility] Absolute lymphocyte countOrd ered By: Griffin Live on 07-27-2023 Lymphocytes Auto (Unsp spec) [#/Vol] 2.75 10*3/uL 0.83-4.51 [facility] Automated lymphocyte count a s percentage of total leukocytesOrdered By: Griffin Live on 07-27-2023 Lymphocytes/100 WBC Auto (Unsp spec) 29.5 % 19-41 [facility] Basophil percentageOrdered B y: Griffin Live on 07-27-2023 Basophils/100 WBC (Bld) 1.0 % 0-1 [facility] Bilirubin [Mass/Vol] 0.20 mg/dL 0.20-1.00 [facility] Comment on above: For patients on eltr ombopag therapy, use of Dimension Basile TBIL is not recommended. Chloride [Moles/Vol] 105 mmol/L 98-107 [facility] Cholesterol [Mass/Vol] 192 mg/dL <200 [facility] Comment on above: <200 mg/dL Desirable 200-240 mg/dL Borderline >240 mg/dL High Risk Eosinophils/100 WBC (Bld) 2.6 % 0-5 [facility] Glucose [Mass/Vol] 189 mg/dL 74-106 [facility] Comment on above: Fasting Glucose resu lt greater than or equal to 126 mg/dL suggests DIABETES MELLITUS per A.D.A. criteria. Hemoglobin (Bld) [Mass/Vol] 14.1 g/dL 13.0-16.5 [facility] Monocytes/100 WBC (Bld) 10.4 % 0-10 [facility] Neutrophils (Bld) [#/Vol] 5.3 10*3/uL 2.0-7.7 [facility] Neutrophils/100 WBC (Bld) 56.3 % 47-70 [facility] Potassium [Moles/Vol] 3.9 mmol/L 3.5-5.1 [facility] Protein [Mass/Vol] 6.9 g/dL 6.4-8.2 [facility] Sodium [Moles/Vol] 140 mmol/L 136-145 [facility] Triglyceride [Mass/Vol] 275 mg/dL <199 [facility] Comment on above: The drugs N-Acetylcy steine and Metamizole may falsely depress this assay.Serum Triglycerides Reference Interval Normal <150 mg/dL Borderline high 150 - 199 mg/dL High 200 - 499 mg/dL Very High > or = 500 mg/dL WBC (Bld) [#/Vol] 9.3 10*3/uL 4.4-11.0 [facility] Determination of erythrocyte mean corpuscular volume (MCV)Ordered By: Griffin Live on 07-27-2023 MCV (RBC) [Entitic vol] 95.4 fL 80-94 [facility] Erythrocyte distribution wid th ratioOrdered By: Griffin Live on 07-27-2023 Erythrocyte distribution width (RBC) [Ratio] 13.2 % 11.6-14.6 [facility] Erythrocyte distribution wid th standard deviationOrdered By: Griffin Live on 07-27-2023 Erythrocyte distribution width (RBC) [Entitic vol] 47.0 fL 35.1-43.9 [facility] Hematocrit Auto (Bld) [Volum e fraction]Ordered By: Griffin Live on 07-27-2023 Hematocrit (Bld) [Volume fraction] 43.8 % 40-54 [facility] Immature granulocytes/100 WB C Auto (Bld)Ordered By: Griffin Live on 07-27-2023 Immature granulocytes/100 WBC (Bld) 0.200 % 0.0-0.9 [facility] Comment on above: IG% - Immature Granu locytes (promyelocytes, myelocytes and metamyelocytes) > 1% indicates that a LEFT SHIFT is Present. Laboratory - Chemistry and C hemistry - challengeOrdered By: Griffin Live on 07-27-2023 Albumin/Globulin [Mass ratio] 0.9 {ratio} 0.9-2.4 [facility] ALP [Catalytic activity/Vol] 93 U/L 45-117 [facility] ALT [Catalytic activity/Vol] 25 U/L 16-61 [facility] Cholesterol in HDL [Mass/Vol] 38 mg/dL >40 [facility] Comment on above: The drugs N-Acetylcy steine and Metamizole may falsely depress this assay. Reference Range HDL <40 mg/dL Low HDL Cholesterol HDL >or= 60 mg/dL High HDL Cholesterol Cholesterol in LDL [Mass/Vol] 99 mg/dL 0-130 [facility] CO2 [Moles/Vol] 31.0 mmol/L 21.0-32.0 [facility] Globulin (S) [Mass/Vol] 3.6 g/dL 2.2-4.2 [facility] Urea nitrogen/Creatinine [Mass ratio] 11.9 mg/mg 10-20 [facility] Laboratory - Hematology and Cell countsOrdered By: Griffin Live on 07-27-2023 MCH (RBC) [Entitic mass] 30.7 pg 27.0-32.0 [facility] MCHC (RBC) [Mass/Vol] 32.2 g/dL 32-36 [facility] Nucleated RBC/100 WBC (Bld) [Ratio] 0 % 0-5 [facility] Platelet mean volume (Bld) [Entitic vol] 12.5 fL 6.2-12.0 [facility] Platelets (Bld) [#/Vol] 266 10*3/uL 150-450 [facility] No Panel InformationOrdered By: Griffin Live on 07-27-2023 Estimated GFR (MDRD) Amer 66 mL/min >60 [facility] Comment on above: GFR Calc Estimated GFR (MDRD) Non-Af Amer 54 mL/min >60 [facility] Comment on above: Non- GFR Calc Prostate Specific Antigen Screen 0.35 ng/mL 0.00-4.00 [facility] Comment on above: This test was perfor med using the TPSA assay method for [employer] chemistry system. Values obtained with differentassay methods cannot be used interchangably.When changing PSA assays in the course of monitoring apatient, additional sequential testing should be carriedout to confirm baseline values. VLDL Cholesterol 55 mg/dL 5-40 [facility] RBC Auto (Bld) [#/Vol]Ordere d By: Griffin Live on 07-27-2023 RBC (Bld) [#/Vol] 4.59 10*6/uL 4.6-6.2 [facility] Serum or plasma calcium daly urement (mass/volume)Ordered By: Griffin Live on 07-27-2023 Calcium [Mass/Vol] 8.8 mg/dL 8.5-10.1 [facility] Serum or plasma creatinine m easurement (mass/volume)Ordered By: Griffin Live on 07-27-2023 Creatinine [Mass/Vol] 1.43 mg/dL 0.70-1.30 [facility] Comment on above: The validity of the calculated GFR & GFRAA in patients over 70 years has not been determined. Clinical correlation is essential. Serum or plasma urea nitroge n measurement (mass/volume)Ordered By: Griffin Live on 07-27-2023 Urea nitrogen [Mass/Vol] 17 mg/dL 7-18 [facility] Thin prep Papanicolaou smear with manual screeningOrdered By: Griffin Live on 07-27-2023 Thin prep Papanicolaou smear with manual screening 3.3 g/dL 3.2-5.0 [facility] Thin prep Papanicolaou smear with manual screening 18 U/L 15-37 [facility] Thin prep Papanicolaou smear with manual screening 4 5-15 [facility] Whole blood hemoglobin A1c/t otal hemoglobin ratio (mass fraction)Ordered By: Griffin Live on 07-27-2023 HbA1c (Bld) [Mass fraction] 7.8 % 3.8-5.6 [facility] Comment on above: Normal < 5.7 % Predi abetic 5.7 - 6.4 % Diabetic >or= 6.5 % Please note range changes. 36on 07-18-2023 36 S: Patient spoke wit h [facility] nurse regarding dizziness. B: Onset of symptoms for 1 week. A: Seen in UC and continues to have dizziness, moves out to fast, fell yesterday in the bathroom no injuries, no nausea, feels weird, the room spins, headache that won't go away. PMD is out of town until next week. R: Patient referred to ER or UC for eval. Declines new patient appointment. Patient understands care advice. No further needs at this time. Patient instructed to call back with new or worsening symptoms. Reason for Disposition Lightheadedness (dizziness) present now, after 2 hours of rest and fluids Protocols used: [id number] Normal [facility] Absolute lymphocyte countOrd ered By: Griffin Live on 09-06-2022 Lymphocytes Auto (Unsp spec) [#/Vol] 2.24 10*3/uL 0.83-4.51 [facility] Basophil percentageOrdered B y: Griffin Live on 09-06-2022 Basophils/100 WBC (Bld) 0.6 % 0-1 [facility] Bilirubin [Mass/Vol] 0.30 mg/dL 0.20-1.00 [facility] Comment on above: For patients on eltr ombopag therapy, use of Dimension Basile TBIL is not recommended. Chloride [Moles/Vol] 102 mmol/L 98-107 [facility] Eosinophils/100 WBC (Bld) 1.7 % 0-5 [facility] Glucose [Mass/Vol] 182 mg/dL 74-106 [facility] Comment on above: Fasting Glucose resu lt greater than or equal to 126 mg/dL suggests DIABETES MELLITUS per A.D.A. criteria. Neutrophils (Bld) [#/Vol] 6.5 10*3/uL 2.0-7.7 [facility] Neutrophils/100 WBC (Bld) 65.3 % 47-70 [facility] Potassium [Moles/Vol] 3.8 mmol/L 3.5-5.1 [facility] Protein [Mass/Vol] 7.1 g/dL 6.4-8.2 [facility] Sodium [Moles/Vol] 136 mmol/L 136-145 [facility] WBC (Bld) [#/Vol] 10.0 10*3/uL 4.4-11.0 [facility] Blood erythrocytes count (nu mber/volume)Ordered By: Griffin Live on 09-06-2022 RBC (Bld) [#/Vol] 4.51 10*6/uL 4.6-6.2 [facility] Blood hemoglobin measurement (mass/volume)Ordered By: Griffin Live on 09-06-2022 Hemoglobin (Bld) [Mass/Vol] 14.3 g/dL 13.0-16.5 [facility] Blood lymphocytes/100 leukoc ytesOrdered By: Griffin Live on 09-06-2022 Lymphocytes/100 WBC (Bld) 22.5 % 19-41 [facility] Blood monocytes/100 leukocyt esOrdered By: Griffin Live on 09-06-2022 Monocytes/100 WBC (Bld) 9.7 % 0-10 [facility] Blood platelet mean volumeOr dered By: Griffin Live on 09-06-2022 Platelet mean volume (Bld) [Entitic vol] 12.6 fL 6.2-12.0 [facility] Determination of erythrocyte mean corpuscular volume (MCV)Ordered By: Griffin Live on 09-06-2022 MCV (RBC) [Entitic vol] 94.2 fL 80-94 [facility] Hematocrit Auto (Bld) [Volum e fraction]Ordered By: Griffin Live on 09-06-2022 Hematocrit (Bld) [Volume fraction] 42.5 % 40-54 [facility] Laboratory - Chemistry and C hemistry - challengeOrdered By: Griffin Live on 09-06-2022 ALP [Catalytic activity/Vol] 97 U/L 45-117 [facility] ALT [Catalytic activity/Vol] 27 U/L 16-61 [facility] CO2 [Moles/Vol] 28.0 mmol/L 21.0-32.0 [facility] Globulin (S) [Mass/Vol] 3.7 g/dL 2.2-4.2 [facility] Urea nitrogen/Creatinine [Mass ratio] 12.1 mg/mg 10-20 [facility] Laboratory - Hematology and Cell countsOrdered By: Griffin Live on 09-06-2022 Erythrocyte distribution width (RBC) [Entitic vol] 45.9 fL 35.1-43.9 [facility] Erythrocyte distribution width (RBC) [Ratio] 13.2 % 11.6-14.6 [facility] Immature granulocytes/100 WBC (Bld) 0.200 % 0.0-0.9 [facility] Comment on above: IG% - Immature Granu locytes (promyelocytes, myelocytes and metamyelocytes) > 1% indicates that a LEFT SHIFT is Present. MCH (RBC) [Entitic mass] 31.7 pg 27.0-32.0 [facility] Nucleated RBC/100 WBC (Bld) [Ratio] 0 % 0-5 [facility] MCHC Auto (RBC) [Mass/Vol]Or dered By: Griffin Live on 09-06-2022 MCHC (RBC) [Mass/Vol] 33.6 g/dL 32-36 [facility] No Panel InformationOrdered By: Griffin Live on 09-06-2022 D-Dimer Quantitative (PE/DVT) < 0.27 FEU/ug/m 0.27-0.49 [facility] Comment on above: NORMAL D-Dimer level (<0.50) indicates no DVT or PE. Estimated GFR (MDRD) Amer 67 mL/min >60 [facility] Comment on above: GFR Calc Estimated GFR (MDRD) Non-Af Amer 56 mL/min >60 [facility] Comment on above: Non- GFR Calc Platelets bldOrdered By: Taryn Live on 09-06-2022 Platelets (Bld) [#/Vol] 280 10*3/uL 150-450 [facility] Serum or plasma albumin daly urement (mass/volume)Ordered By: Griffin Live on 09-06-2022 Albumin [Mass/Vol] 3.4 g/dL 3.2-5.0 [facility] Serum or plasma albumin/glob ulin mass ratioOrdered By: Griffin Live on 09-06-2022 Albumin/Globulin [Mass ratio] 0.9 {ratio} 0.9-2.4 [facility] Serum or plasma calcium daly urement (mass/volume)Ordered By: Griffin Live on 09-06-2022 Calcium [Mass/Vol] 9.0 mg/dL 8.5-10.1 [facility] Serum or plasma creatinine m easurement (mass/volume)Ordered By: Griffin Live on 09-06-2022 Creatinine [Mass/Vol] 1.40 mg/dL 0.70-1.30 [facility] Comment on above: The validity of the calculated GFR & GFRAA in patients over 70 years has not been determined. Clinical correlation is essential. Serum or plasma urea nitroge n measurement (mass/volume)Ordered By: Griffin Live on 09-06-2022 Urea nitrogen [Mass/Vol] 17 mg/dL 7-18 [facility] Thin prep Papanicolaou smear with manual screeningOrdered By: Griffin Live on 09-06-2022 Thin prep Papanicolaou smear with manual screening 22 U/L 15-37 [facility] Thin prep Papanicolaou smear with manual screening 6 5-15 [facility] Laboratory - Hematology and Cell countson 08-18-2022 HbA1c (Bld) [Mass fraction] 9.3 % 4.2-6.3 [facility] Laboratory - Hematology and Cell countson 05-25-2022 HbA1c (Bld) [Mass fraction] 9.1 % 4.2-6.3 [facility] Absolute lymphocyte counton 12-23-2021 Lymphocytes Auto (Unsp spec) [#/Vol] 2.85 10*3/uL 0.83-4.51 [facility] Work Phone: Basophil percentageon 2021 Basophils/100 WBC (Bld) 0.7 % 0-1 [facility] Work Phone: Bilirubin [Mass/Vol] 0.40 mg/dL 0.20-1.00 [facility] Work Phone: [phone] Comment on above: For patients on eltr ombopag therapy, use of Dimension Basile TBIL is not recommended. Chloride [Moles/Vol] 103 mmol/L 98-107 [facility] Work Phone: Cholesterol [Mass/Vol] 211 mg/dL <200 [facility] Work Phone: [phone] Comment on above: <200 mg/dL Desirable 200-240 mg/dL Borderline >240 mg/dL High Risk Eosinophils/100 WBC (Bld) 2.4 % 0-5 [facility] Work Phone: Glucose [Mass/Vol] 240 mg/dL 74-106 [facility] Work Phone: Comment on above: Glucose result great er than or equal to 200 mg/dLsuggests DIABETES MELLITUS per A.D.A. criteria. Neutrophils (Bld) [#/Vol] 6.6 10*3/uL 2.0-7.7 [facility] Work Phone: Neutrophils/100 WBC (Bld) 60.8 % 47-70 [facility] Work Phone: [phone] Potassium [Moles/Vol] 3.9 mmol/L 3.5-5.1 [facility] Work Phone: [phone] Protein [Mass/Vol] 7.0 g/dL 6.4-8.2 [facility] Work Phone: Sodium [Moles/Vol] 137 mmol/L 136-145 [facility] Work Phone: [phone] Triglyceride [Mass/Vol] 575 mg/dL <199 [facility] Work Phone: Comment on above: The drugs N-Acetylcy steine and Metamizole may falsely depress this assay. TRIGLYCERIDE IS GREATER THAN 400 mg/dL. LDL RESULT IS INVALID AND WILL NOT BE REPORTED.Serum Triglycerides Reference Interval Normal <150 mg/dL Borderline high 150 - 199 mg/dL High 200 - 499 mg/dL Very High > or = 500 mg/dL WBC (Bld) [#/Vol] 10.8 10*3/uL 4.4-11.0 [facility] Work Phone: Blood erythrocytes count (nu mber/volume)on 12-23-2021 RBC (Bld) [#/Vol] 4.87 10*6/uL 4.6-6.2 [facility] Work Phone: Blood hemoglobin measurement (mass/volume)on 12-23-2021 Hemoglobin (Bld) [Mass/Vol] 15.6 g/dL 13.0-16.5 [facility] Work Phone: Blood lymphocytes/100 leukoc yteson 12-23-2021 Lymphocytes/100 WBC (Bld) 26.4 % 19-41 [facility] Work Phone: Blood monocytes/100 leukocyt eson 12-23-2021 Monocytes/100 WBC (Bld) 9.5 % 0-10 [facility] Work Phone: Blood platelet mean volumeon 12-23-2021 Platelet mean volume (Bld) [Entitic vol] 12.3 fL 6.2-12.0 [facility] Work Phone: [phone] Determination of erythrocyte mean corpuscular volume (MCV)on 12-23-2021 MCV (RBC) [Entitic vol] 94.5 fL 80-94 [facility] Work Phone: [phone] Hematocrit Auto (Bld) [Volum e fraction]on 12-23-2021 Hematocrit (Bld) [Volume fraction] 46.0 % 40-54 [facility] Work Phone: Laboratory - Chemistry and C hemistry - challengeon 12-23-2021 ALP [Catalytic activity/Vol] 124 U/L 45-117 [facility] Work Phone: [phone] ALT [Catalytic activity/Vol] 28 U/L 16-61 [facility] Work Phone: [phone] CO2 [Moles/Vol] 29.0 mmol/L 21.0-32.0 [facility] Work Phone: [phone] Globulin (S) [Mass/Vol] 3.5 g/dL 2.2-4.2 [facility] Work Phone: [phone] Urea nitrogen/Creatinine [Mass ratio] 10.6 mg/mg 10-20 [facility] Work Phone: [phone] Laboratory - Hematology and Cell countson 12-23-2021 Erythrocyte distribution width (RBC) [Entitic vol] 45.1 fL 35.1-43.9 [facility] Work Phone: [phone] Erythrocyte distribution width (RBC) [Ratio] 13.0 % 11.6-14.6 [facility] Work Phone: [phone] Immature granulocytes/100 WBC (Bld) 0.200 % 0.0-0.9 [facility] Work Phone: [phone] Comment on above: IG% - Immature Granu locytes (promyelocytes, myelocytes and metamyelocytes) > 1% indicates that a LEFT SHIFT is Present. MCH (RBC) [Entitic mass] 32.0 pg 27.0-32.0 [facility] Work Phone: [phone] Nucleated RBC/100 WBC (Bld) [Ratio] 0 % 0-5 [facility] Work Phone: [phone] MCHC Auto (RBC) [Mass/Vol]on 12-23-2021 MCHC (RBC) [Mass/Vol] 33.9 g/dL 32-36 [facility] Work Phone: [phone] Panel Informationon 12-23 Estimated GFR (MDRD) Amer 67 mL/min >60 [facility] Work Phone: [phone] Comment on above: GFR Calc Estimated GFR (MDRD) Non-Af Amer 55 mL/min >60 [facility] Work Phone: Comment on above: Non- GFR Calc Prostate Specific Antigen Screen 0.27 ng/mL 0.00-4.00 [facility] Work Phone: Comment on above: This test was perfor med using the TPSA assay method for [employer] chemistry system. Values obtained with differentassay methods cannot be used interchangably.When changing PSA assays in the course of monitoring apatient, additional sequential testing should be carriedout to confirm baseline values. Platelets bldon 12-23-2021 Platelets (Bld) [#/Vol] 261 10*3/uL 150-450 [facility] Work Phone: Serum or plasma albumin daly urement (mass/volume)on 12-23-2021 Albumin [Mass/Vol] 3.5 g/dL 3.2-5.0 [facility] Work Phone: Serum or plasma albumin/glob ulin mass ratioon 12-23-2021 Albumin/Globulin [Mass ratio] 1.0 {ratio} 0.9-2.4 [facility] Work Phone: Serum or plasma calcium daly urement (mass/volume)on 12-23-2021 Calcium [Mass/Vol] 9.2 mg/dL 8.5-10.1 [facility] Work Phone: Serum or plasma cholesterol in HDL measurement (mass/volume)on 12-23-2021 Cholesterol in HDL [Mass/Vol] 31 mg/dL >40 [facility] Work Phone: Comment on above: The drugs N-Acetylcy steine and Metamizole may falsely depress this assay. Reference Range HDL <40 mg/dL Low HDL Cholesterol HDL >or= 60 mg/dL High HDL Cholesterol Serum or plasma cholesterol in VLDL measurement (mass/volume)on 12-23-2021 Cholesterol in VLDL [Mass/Vol] TNP [facility] Work Phone: Comment on above: Test not performed Serum or plasma creatinine m easurement (mass/volume)on 12-23-2021 Creatinine [Mass/Vol] 1.41 mg/dL 0.70-1.30 [facility] Work Phone: Comment on above: The validity of the calculated GFR & GFRAA in patients over 70 years has not been determined. Clinical correlation is essential. Serum or plasma low density lipoprotein (LDL) cholesterol measurement (mass/volume)on 12-23-2021 Cholesterol in LDL [Mass/Vol] TNP [facility] Work Phone: Comment on above: Test not performed Serum or plasma urea nitroge n measurement (mass/volume)on 12-23-2021 Urea nitrogen [Mass/Vol] 15 mg/dL 7-18 [facility] Work Phone: Thin prep Papanicolaou smear with manual screeningon 12-23-2021 Thin prep Papanicolaou smear with manual screening 20 U/L 15-37 [facility] Work Phone: Thin prep Papanicolaou smear with manual screening 5 5-15 [facility] Work Phone: Whole blood hemoglobin A1c/t otal hemoglobin ratio (mass fraction)on 12-23-2021 HbA1c (Bld) [Mass fraction] 9.4 % 3.8-5.6 [facility] Work Phone: Comment on above: Normal < 5.7 % Predi abetic 5.7 - 6.4 % Diabetic >or= 6.5 % Please note range changes. Absolute lymphocyte counton 11-07-2021 Lymphocytes Auto (Unsp spec) [#/Vol] 2.07 10*3/uL 0.83-4.51 [facility] Work Phone: Basophil percentageon 2021 Basophils/100 WBC (Bld) 0.7 % 0-1 [facility] Work Phone: Eosinophils/100 WBC (Bld) 1.8 % 0-5 [facility] Work Phone: Neutrophils (Bld) [#/Vol] 6.0 10*3/uL 2.0-7.7 [facility] Work Phone: Neutrophils/100 WBC (Bld) 65.8 % 47-70 [facility] Work Phone: Testosterone [Mass/Vol] 251.20 ng/dL [facility] Work Phone: Comment on above: CENTRAL 90% REFERENC E RANGES MALE AGE <50 197.44 - 669.58 ng/dL MALE AGE > or = 50 187.72 - 684.19 ng/dL FEMALE AGE <50 8.38 - 35.01 ng/dL FEMALE AGE > or = 50 <7.00 - 35.92 ng/dL Effective as of 12/28/20 WBC (Bld) [#/Vol] 9.1 10*3/uL 4.4-11.0 [facility] Work Phone: Blood erythrocytes count (nu mber/volume)on 11-07-2021 RBC (Bld) [#/Vol] 5.13 10*6/uL 4.6-6.2 [facility] Work Phone: Blood hemoglobin measurement (mass/volume)on 11-07-2021 Hemoglobin (Bld) [Mass/Vol] 16.1 g/dL 13.0-16.5 [facility] Work Phone: [phone] Blood lymphocytes/100 leukoc yteson 11-07-2021 Lymphocytes/100 WBC (Bld) 22.8 % 19-41 [facility] Work Phone: Blood monocytes/100 leukocyt eson 11-07-2021 Monocytes/100 WBC (Bld) 8.6 % 0-10 [facility] Work Phone: [phone] Blood platelet mean volumeon 11-07-2021 Platelet mean volume (Bld) [Entitic vol] 12.3 fL 6.2-12.0 [facility] Work Phone: [phone] Determination of erythrocyte mean corpuscular volume (MCV)on 11-07-2021 MCV (RBC) [Entitic vol] 95.3 fL 80-94 [facility] Work Phone: [phone] Hematocrit Auto (Bld) [Volum e fraction]on 11-07-2021 Hematocrit (Bld) [Volume fraction] 48.9 % 40-54 [facility] Work Phone: [phone] Laboratory - Chemistry and C hemistry - challengeon 11-07-2021 Cobalamin (Vitamin B12) [Mass/Vol] 1580 pg/mL 211-911 [facility] Work Phone: [phone] Laboratory - Hematology and Cell countson 11-07-2021 HbA1c (Bld) [Mass fraction] 9.0 % 4.2-6.3 [facility] Work Phone: [phone] Erythrocyte distribution width (RBC) [Entitic vol] 45.7 fL 35.1-43.9 [facility] Work Phone: [phone] Erythrocyte distribution width (RBC) [Ratio] 13.0 % 11.6-14.6 [facility] Work Phone: [phone] Immature granulocytes/100 WBC (Bld) 0.300 % 0.0-0.9 [facility] Work Phone: [phone] Comment on above: IG% - Immature Granu locytes (promyelocytes, myelocytes and metamyelocytes) > 1% indicates that a LEFT SHIFT is Present. MCH (RBC) [Entitic mass] 31.4 pg 27.0-32.0 [facility] Work Phone: [phone] Nucleated RBC/100 WBC (Bld) [Ratio] 0 % 0-5 [facility] Work Phone: [phone] MCHC Auto (RBC) [Mass/Vol]on 11-07-2021 MCHC (RBC) [Mass/Vol] 32.9 g/dL 32-36 [facility] Work Phone: [phone] Panel Informationon 11-07 Prostate Specific Antigen Total 0.46 ng/mL 0.0-4.0 [facility] Work Phone: [phone] Comment on above: This test was perfor med using the TPSA assay method [facility]. Values obtained with differentassay methods cannot be used interchangably.When changing PSA assays in the course of monitoring apatient, additional sequential testing should be carriedout to confirm baseline values. Platelets bldon 11-07-2021 Platelets (Bld) [#/Vol] 256 10*3/uL 150-450 [facility] Work Phone: CBC W Auto Differential pane l (Bld)on 10-03-2021 Basophils (Bld) [#/Vol] 0.05 10*3/uL Normal <0.11 [facility] Comment on above: Order Comment: Speci men Type: BLOOD SPECIMENOrdering Facility: [facility] Address: [address] [place] [address] Performed By: #### 5 7021-8 ####[facility] LABORATORYCLIA [id number] [place] [address] [place] Basophils/100 WBC (Bld) 0.4 % Normal [facility] Comment on above: Order Comment: Speci men Type: BLOOD SPECIMENOrdering Facility: [facility] Address: [address] [place] [address] Performed By: #### 5 7021-8 ####NISHANTMAXIMILIANO [facility] LABORATORYCLIA [id number] [address] OF [facility] Differential cell count method Nom (Bld) Auto Normal [facility] Comment on above: Order Comment: Speci men Type: BLOOD SPECIMENOrdering Facility: [facility] Address: [address] [place] [address] Performed By: #### 5 7021-8 ####NISHANTMAXIMILIANO [facility] LABORATORYCLIA [id number] [place] [address] [place] Eosinophils (Bld) [#/Vol] 0.18 10*3/uL Normal <0.46 [facility] Comment on above: Order Comment: Speci men Type: BLOOD SPECIMENOrdering Facility: [facility] Address: [address] [place] [address] Performed By: #### 5 7021-8 ####NISHANTMAXIMILIANO [facility] LABORATORYCLIA [id number] [address] OF [place] Eosinophils/100 WBC (Bld) 1.5 % Normal [facility] Comment on above: Order Comment: Speci men Type: BLOOD SPECIMENOrdering Facility: [facility] Address: [address] [place] [address] Performed By: #### 5 7021-8 ####NISHANTJAYE [facility] LABORATORYIA [id number] [address] Erythrocyte distribution width (RBC) [Ratio] 13.7 % Normal 11.5-15.0 [facility] Comment on above: Order Comment: Speci men Type: BLOOD SPECIMENOrdering Facility: [facility] Address: [address] [place] [address] Performed By: #### 5 7021-8 ####[facility] LABORATORYIA [id number] [address] STATES OF [facility] Hematocrit (Bld) [Volume fraction] 49.3 % Normal 39.0-51.0 [facility] Comment on above: Order Comment: Speci men Type: BLOOD SPECIMENOrdering Facility: [facility] Address: [address] [place] [address] Performed By: #### 5 7021-8 ####NISHANTJAYE [facility] LABORATORYIA [id number] [address] [place] Hemoglobin (Bld) [Mass/Vol] 16.5 g/dL Normal 13.0-17.0 [facility] Comment on above: Order Comment: Speci men Type: BLOOD SPECIMENOrdering Facility: [facility] Address: [address] [place] [address] Performed By: #### 5 7021-8 ####ROGE [facility] LABORATORYIA [id number] [place] [address] [place] Lymphocytes (Bld) [#/Vol] 3.14 10*3/uL Normal 1.00-4.00 [facility] Comment on above: Order Comment: Speci men Type: BLOOD SPECIMENOrdering Facility: [facility] Address: [address] [place] [address] Performed By: #### 5 7021-8 ####ROGE [facility] LABORATORYCLIA [id number] [address] Lymphocytes/100 WBC (Bld) 26.7 % Normal [facility] Comment on above: Order Comment: Speci men Type: BLOOD SPECIMENOrdering Facility: [facility] Address: [address] [place] [address] Performed By: #### 5 7021-8 ####ROGE [facility] LABORATORYCLIA [id number] [address] MCH (RBC) [Entitic mass] 31.3 pg Normal 26.0-34.0 [facility] Comment on above: Order Comment: Speci men Type: BLOOD SPECIMENOrdering Facility: [facility] Address: [address] [place] [address] Performed By: #### 5 7021-8 ####[facility] BEHAVIORAL HEALTH SERVICESIA [id number] [address] STATES [facility] MCHC (RBC) [Mass/Vol] 33.5 g/dL Normal 30.5-36.0 [facility] Comment on above: Order Comment: Speci men Type: BLOOD SPECIMENOrdering Facility: [facility] Address: [address] [place] [address] Performed By: #### 5 7021-8 ####NISHANTMAXIMILIANO [facility] BEHAVIORAL HEALTH SERVICESIA [id number] [address] MCV (RBC) [Entitic vol] 93.5 fL Normal 80.0-100.0 [facility] Comment on above: Order Comment: Speci men Type: BLOOD SPECIMENOrdering Facility: [facility] Address: [address] [place] [address] Performed By: #### 5 7021-8 ####[facility] LABORATORYIA [id number] [address] Monocytes (Bld) [#/Vol] 1.39 10*3/uL High <0.87 [facility] Comment on above: Order Comment: Speci men Type: BLOOD SPECIMENOrdering Facility: [facility] Address: [address] [place] [address] Performed By: #### 5 7021-8 ####NISHANTJAYE [facility] LABORATORYCLIA [id number] [place] [address] [place] Monocytes/100 WBC (Bld) 11.8 % Normal [facility] Comment on above: Order Comment: Speci men Type: BLOOD SPECIMENOrdering Facility: [facility] Address: [address] [place] [address] Performed By: #### 5 7021-8 ####[facility] LABORATORYIA [id number] [place] [address] [place] Neutrophils (Bld) [#/Vol] 6.99 10*3/uL Normal 1.45-7.50 [facility] Comment on above: Order Comment: Speci men Type: BLOOD SPECIMENOrdering Facility: [facility] Address: [address] [place] [address] Performed By: #### 5 7021-8 ####[facility] LABORATORYIA [id number] [place] [address] [place] Neutrophils/100 WBC (Bld) 59.6 % Normal [facility] Comment on above: Order Comment: Speci men Type: BLOOD SPECIMENOrdering Facility: [facility] Address: [address] [place], [place] [address] Performed By: #### 5 7021-8 ####[facility] LABORATORYIA [id number] [place] [address] [place] Platelet mean volume (Bld) [Entitic vol] 12.3 fL Normal 9.0-12.7 [facility] Comment on above: Order Comment: Speci men Type: BLOOD SPECIMENOrdering Facility: [facility] Address: [address] [place] [address] Performed By: #### 5 7021-8 ####[facility] LABORATORYCLIA [id number] [place] [address] [place] Platelets (Bld) [#/Vol] 285 10*3/uL Normal 150-400 [facility] Comment on above: Order Comment: Speci men Type: BLOOD SPECIMENOrdering Facility: [facility] Address: [address] [place] [address] Performed By: #### 5 7021-8 ####[facility]PITALMAXIMILIANO [facility] LABORATORYIA [id number] [place] [address] [place] [facility] RBC (Bld) [#/Vol] 5.27 10*6/uL Normal 4.20-6.00 [facility] Comment on above: Order Comment: Speci men Type: BLOOD SPECIMENOrdering Facility: [facility] Address: [address] [place] [address] Performed By: #### 5 7021-8 ####[facility]PITALMAXIMILIANO [facility] BEHAVIORAL HEALTH SERVICESIA [id number] [address] [place] WBC (Bld) [#/Vol] 11.75 10*3/uL High 3.70-11.00 [facility] Comment on above: Order Comment: Speci men Type: BLOOD SPECIMENOrdering Facility: [facility] Address: [address] [place] [address] Performed By: #### 5 7021-8 ####NISHANTMAXIMILIANO [facility] BEHAVIORAL HEALTH SERVICESIA [id number] [address] OF [facility] CNOVon 10-03-2021 CNOV Office Visit ([facility] ) JAME WALLACE ([id number]) 1965 M Date Time Provider Department 5/2/22 3:15 PM REJI RODRIGUEZ During your visit today, we recorded the following information about you: Temperature Pulse Respiration Blood pressure 98.6 degrees 83/minute 18/minute 134/92 Weight 152.6 kg Reji Rodriguez APRN.CNP 10/03/2021 4:08 PM Signed Patient is a nontoxic-appearing 56-year-old male with past medical history of neuropathy, paralyzed hemidiaphragm, diabetic neuropathy, osteoarthritis, radiculopathy, hypertension, hyperlipidemia, acute respiratory failure with hypoxia, pneumonia due to COVID-19, obstructive sleep apnea, diverticulitis, BHAVYA, type 2 diabetes, cellulitis, rheumatoid arthritis of the hand, gout, Raynaud's phenomenon presents to the office today for multiple medical complaints. Patient states of the past 2 weeks he has had an abscess to the groin has gradually become worse after pulling out several hairs. Patient states he has had a green appearance to without any active bleeding or drainage present. Patient denies any abdominal pain, nausea, vomiting, diarrhea or constipation. Patient denies any fever, burks, or chills. Patient states he also has been having intermittent dizziness for the past 2 weeks is worse with movement. Patient denies any syncopal events, visual disturbances, numbness or tingling. Patient states he has been staying hydrated and tried several maneuvers last night to alleviate symptoms however have not helped. 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 Patient also complains of tinnitus of bilateral ears with no known cause. Patient denies any chest pain, shortness of breath difficulty breathing. Given patient's complaint presentation a thorough exam was performed. Patient remains neurologically intact no focal deficits, has no nuchal rigidity, TMs are normal bilaterally no hemotympanum or effusion, EOMs are intact bilaterally no nystagmus or diplopia, pupils equal active round bilaterally, red light reflex intact, no adventitious lung sounds auscultated, speaking in complete sentences in no respiratory distress, cardiac sounds auscultated are regular, remains hemodynamically stable during office visit, does have small amount of induration and erythema to the anterior lower abdomen just superior to the pannus. I do suspect patient is likely experiencing folliculitis however given intermittent dizziness for the past 2 weeks I do believe a differential diagnosis of benign positional vertigo, acute intracranial process, peripheral vertigo, central vertigo is warranted and recommended emergency evaluation. Patient was agreeable with this plan. Report was called to [facility] emergency room patient was transported out of the office today to the emergency room in stable condition in no distress. Reji Rodriguez APRN.CATRACHITA This note was partially generated using [employer] voice recognition system. Referring Provider: SELF [200] Allergies As of Date: 10/03/2021 Noted Allergy Reaction PREGABALIN 03/06/2021 16 - Unknown Date Reviewed: 10/03/2021 Reviewed by: Domonique Melissa MA - Fully Assessed Reason for Visit: Abscess [1744] Cmt: turning green, x 2 weeks Primary Visit Diagnosis:Dizziness [R42] Other Visit Diagnosis:Folliculitis [L73.9] Prescriptions as of 10/03/2021 - celecoxib (CELEBREX) 200 mg capsule Take 200 mg by mouth once daily. - gabapentin (NEURONTIN) 400 mg capsule Take by mouth. - VITAMIN A ORAL Take by mouth. - dulaglutide (TRULICITY) 3 mg/0.5 mL pen injector Inject 3 mg subcutaneously one time a week. - empagliflozin-metFORMIN (SYNJARDY) 12.5-1,000 mg tab Take 1 tablet by mouth twice daily with meals. - acetaminophen (TYLENOL EXTRA STRENGTH) 500 mg tablet Take 2 tablets by mouth every 8 hours as needed for pain. - tiZANidine (ZANAFLEX) 4 mg tablet Take 1 tablet by mouth every 8 hours as needed (pain or muscle spasm). - metoprolol tartrate 37.5 mg tab Take 1 tablet by mouth once daily. - cholecalciferol, vitamin D3, (VITAMIN D3 ORAL) Take 1,000 Units by mouth once daily. - DULoxetine (CYMBALTA) 20 mg capsule Take 60 mg by mouth daily at bedtime. - buPROPion (WELLBUTRIN) 100 mg tablet Take 100 mg by mouth twice daily. - ASPIRIN (ASPIR-81 ORAL) Take 1 tablet by mouth once daily. - glimepiride (AMARYL) 4 mg tablet Take 4 mg by mouth daily with breakfast. - amLODIPine (NORVASC) 5 mg tablet Take 5 mg by mouth once daily. - traMADol 50 mg tablet Take 1 tablet by mouth every 8 hours as needed for Pain. Problem List As Of Date 10/03/2021 Noted Resolved Diverticulitis of colon (without mention of hem* 01/19/2011 Colonic polyp [D12.6] Type 2 diabetes mellitus (HCC) [E11.9] 01/19/2009 Diabetic neuropathy, painful (HCC) [E11.40] 01/19/2011 Hyperlipidemia with target low density lipoprot*01/20/20 (more content not included)... Normal [facility] CT BRAIN WO IVCONon 10-04-[address] BRAIN WO IVCON * * *Final Report* * * DATE OF EXAM: Oct 03 2021 5:49PM [facility] 0504 - CT BRAIN WO IVCON / PROCEDURE REASON: Dizziness * * * * Physician Interpretation * * * * EXAMINATION: CT BRAIN WO IVCON CLINICAL HISTORY: Dizziness TECHNIQUE: Serial axial images without IV contrast were obtained from the vertex to the foramen magnum. MQ: CTBWO_3 CT Radiation dose: Integrated Dose-Length Product (DLP) for this visit = 770 mGy*cm CT Dose Reduction Employed: No dose reduction techniques were required COMPARISON: None. RESULT: Railroad Firer/Fireman (topogram) images: No additional findings. Post-operative change: None. Acute change: No evidence of an acute infarct or other acute parenchymal process. Hemorrhage: No evidence of acute intracranial hemorrhage. ECASS hemorrhagic transformation score: Not Applicable Mass Lesion / Mass Effect: There is no evidence of an intracranial mass or extraaxial fluid collection. No significant mass effect. Chronic change: None apparent. Parenchyma: There is no significant volume loss. The brain parenchyma is otherwise within normal limits for age. Ventricles: The ventricles are within normal limits of size and configuration for age. Paranasal sinuses and skull base: The visualized paranasal sinuses are grossly clear. The skull base and imaged soft tissues are unremarkable. IMPRESSION: No CT evidence of an acute intracranial process. Coordinator Skill Training Program: PSCB Transcribe Date/Time: Oct 03 2021 6:10P Dictated by : VERA OLIVA MD This examination was interpreted and the report reviewed and electronically signed by: VERA OLIVA MD on Oct 03 2021 6:12PM EST [id number] Normal [facility] Comprehensive metabolic 2000 panelon 10-03-2021 Albumin [Mass/Vol] 4.3 g/dL Normal 3.9-4.9 [facility] Comment on above: Order Comment: Speci men Type: BLOOD SPECIMENOrdering Facility: [facility] Address: [address] [place] [address] Performed By: #### Edita NT, , ###DEBRA [facility] LABORATORYCLIA [id number] [place] [address] [place] ALP [Catalytic activity/Vol] 106 U/L Normal 38-113 [facility] Comment on above: Order Comment: Speci men Type: BLOOD SPECIMENOrdering Facility: [facility] Address: [address] [place] [address] Performed By: #### Edita NT, , ####[facility] BEHAVIORAL HEALTH SERVICESIA [id number] [address] [place] ALT [Catalytic activity/Vol] 20 U/L Normal 10-54 [facility] Comment on above: Order Comment: Speci men Type: BLOOD SPECIMENOrdering Facility: [facility] Address: [address] [place] [address] Performed By: #### Edita NT, , ###DEBRA [facility] BEHAVIORAL HEALTH SERVICESIA [id number] [place] [address] [place] [facility] Anion gap [Moles/Vol] 12 mmol/L Normal 9-18 [facility] Comment on above: Order Comment: Speci men Type: BLOOD SPECIMENOrdering Facility: [facility] Address: [address] [place] [address] Performed By: #### T NT, , ###DEBRA [facility] LABORATORYIA [id number] [address] [place] AST [Catalytic activity/Vol] 22 U/L Normal 14-40 [facility] Comment on above: Order Comment: Speci men Type: BLOOD SPECIMENOrdering Facility: [facility] Address: [address] [place] [address] Performed By: #### T NT, , ####ROGE [facility] LABORATORYCLIA [id number] [place] [address] [place] Bilirubin [Mass/Vol] 0.3 mg/dL Normal 0.2-1.3 [facility] Comment on above: Order Comment: Speci men Type: BLOOD SPECIMENOrdering Facility: [facility] Address: [address] [place] [address] Performed By: #### T NT, , ####[facility] LABORATORYCLIA [id number] [place] [address] [place] Calcium [Mass/Vol] 9.6 mg/dL Normal 8.5-10.2 [facility] Comment on above: Order Comment: Speci men Type: BLOOD SPECIMENOrdering Facility: [facility] Address: [address] [place] [address] Performed By: #### T WESTLEY, , ####NISHANTMAXIMILIANO [facility] BEHAVIORAL HEALTH SERVICESIA [id number] [place] [address] [place] Chloride [Moles/Vol] 100 mmol/L Normal 97-105 [facility] Comment on above: Order Comment: Speci men Type: BLOOD SPECIMENOrdering Facility: [facility] Address: [address] [place] [address] Performed By: #### T NT, , ####[facility] LABORATORYIA [id number] [place] [address] [place] CO2 [Moles/Vol] 28 mmol/L Normal 22-30 [facility] Comment on above: Order Comment: Speci men Type: BLOOD SPECIMENOrdering Facility: [facility] Address: [address] [place] [address] Performed By: #### T NT, , ####[facility]GE [facility] LABORATORYIA [id number] [address] OF [facility] Creatinine [Mass/Vol] 1.09 mg/dL Normal 0.73-1.22 [facility] Comment on above: Order Comment: Lucas olson Type: BLOOD SPECIMENOrdering Facility: [facility] Address: [address] [place] [address] Performed By: #### T NT, , ####ROGE [facility] LABORATORYCLIA [id number] [address] STATES OF [facility] ESTIMATED GLOMERULAR FILTRATION RATE 80 mL/min/1.73m??? Normal >=60 [facility] Comment on above: Order Comment: Lucas olson Type: BLOOD SPECIMENOrdering Facility: [facility] Address: [address] [place] [address] Result Comment: Delaney mated Glomerular Filtration Rate (eGFR) is calculated using the 2020 CKD-EPI creatinine equation. This equation utilizes serum creatinine, sex, and age as parameters. The creatinine assay has traceable calibration to isotope dilution-mass spectrometry. Refer to KDIGO guidelines for clinical interpretation. In patients with unstable renal function, e.g. those with acute kidney injury, the eGFR may not accurately reflect actual GFR. Performed By: #### T NT, , ####[facility] LABORATORYCLIA [id number] [address] [place] Glucose [Mass/Vol] 142 mg/dL High 74-99 [facility] Comment on above: Order Comment: Lucas olson Type: BLOOD SPECIMENOrdering Facility: [facility] Address: [address] [place] [address] Result Comment: The [place] Diabetes Association (ADA) provides guidance for cutoff values for fasting glucose and random glucose. The ADA defines fasting as no caloric intake for at least 8 hours. Fasting plasma glucose results between 100 to 125 mg/dL indicate increased risk for diabetes (prediabetes). Fasting plasma glucose results greater than or equal to 126 mg/dL meet the criteria for diagnosis of diabetes. In the absence of unequivocal hyperglycemia, results should be confirmed by repeat testing. In a patient with classic symptoms of hyperglycemia or hyperglycemic crisis, random plasma glucose results greater than or equal to 200 mg/dL meet the criteria for diagnosis of diabetes. Reference: Standards of Medical Care in Diabetes 2016, [place] [employer] Association. Diabetes Care. 2016.39(Suppl 1). Performed By: #### T NT, , ####[facility] LABORATORYCLIA [id number] [place] [address] [place] Potassium [Moles/Vol] 4.3 mmol/L Normal 3.7-5.1 [facility] Comment on above: Order Comment: Speci men Type: BLOOD SPECIMENOrdering Facility: [facility] Address: [address] [place] [address] Performed By: #### Edita CHRISTY, , ####NISHANTMAXIMILIANO [facility] LABORATORYCLIA [id number] [place] [address] [place] Protein [Mass/Vol] 7.7 g/dL Normal 6.3-8.0 [facility] Comment on above: Order Comment: Speci men Type: BLOOD SPECIMENOrdering Facility: [facility] Address: [address] [place] [address] Performed By: #### Edita CHRISTY, , ####[facility] LABORATORYCLIA [id number] [place] [address] [place] Sodium [Moles/Vol] 140 mmol/L Normal 136-144 [facility] Comment on above: Order Comment: Speci men Type: BLOOD SPECIMENOrdering Facility: [facility] Address: [address] [place] [address] Performed By: #### Edita NT, , ####NISHANTMAXIMILIANO [facility] LABORATORYCLIA [id number] [place] [address] [place] Urea nitrogen [Mass/Vol] 19 mg/dL Normal 9-24 [facility] Comment on above: Order Comment: Speci men Type: BLOOD SPECIMENOrdering Facility: [facility] Address: [address] [place] [address] Performed By: #### T NT, 48047-7, 30762-3 ####[facility]ORYH[facility] [id number] [address] ED NOTEon 10-03-2021 ED NOTE HNO ID: [id number] Author: Ron Vargas PA-C Service: ? Author Type: Physician Shredding Machine Knife Changer Type: ED Notes Filed: 10/04/2021 1:18 PM Note Text: Emergency Services: ED Call Back Questionnaire SERVICE DATE: 10/03/2021 Are you feeling better? Yes Any questions about discharge instructions and follow-up care? No Were you able to make a follow up appointment? Yes Do you have any further questions? No Is there anything that we could have done differently to improve your ED visit? No SIGNATURE: Ron Vargas PA-C PATIENT NAME: Jame Wallace DATE: October 04, 2021 TIME: 1:17 PM Normal [facility] ED NOTE HNO ID: [id number] Author: Homer Graham RN Service: Emergency Medicine Author Type: Registered Nurse Type: ED Notes Filed: 10/03/2021 7:24 PM Note Text: Discharge instructions given . And pt will call for follow up appointment in AM Normal [facility] ED NOTE HNO ID: [id number] Author: Jennifer Lindquist RN Service: Emergency Medicine Author Type: Registered Nurse Type: ED Notes Filed: 10/03/2021 6:53 PM Note Text: Dizziness only when standing Normal [facility] ED NOTE HNO ID: [id number] Author: Jennifer Lindquist RN Service: Emergency Medicine Author Type: Registered Nurse Type: ED Notes Filed: 10/03/2021 5:33 PM Note Text: To ct with a tech Normal [facility] ED NOTE HNO ID: [id number] Author: Jennifer Lindquist RN Service: Emergency Medicine Author Type: Registered Nurse Type: ED Notes Filed: 10/03/2021 4:57 PM Note Text: Patient states that he feels like the room is spinning with every movement Normal [facility] ED NOTE HNO ID: [id number] Author: Jennifer Lindquist RN Service: Emergency Medicine Author Type: Registered Nurse Type: ED Notes Filed: 10/03/2021 4:43 PM Note Text: Patient has a quarter size abscess under panis area red purple in color Normal [facility] ED NOTE HNO ID: [id number] Author: Jennifer Lindquist RN Service: Emergency Medicine Author Type: Registered Nurse Type: ED Notes Filed: 10/03/2021 4:32 PM Note Text: Patient states that he gets dizzy with movement 2nd complaint he has a abscess under his panis Normal [facility] ED NOTE HNO ID: [id number] Author: Zakiya Walters RN Service: Emergency Medicine Author Type: Registered Nurse Type: ED Notes Filed: 10/03/2021 4:21 PM Note Text: Pt. Presents with dizzyness that started Sunday. No nausea/vomiting, no blurry or double vision. Per pt, he also has a boil on his groin area he needs checked out. Normal [facility] ED PROV NOTEon 10-03-2021 ED PROV NOTE HNO ID: [id number] Author: Ron Vargas PA-C Service: Emergency Medicine Author Type: Physician Shredding Machine Knife Changer Type: ED Provider Notes Filed: 10/03/2021 7:09 PM Note Text: ED Provider Note Patient Name: Jame Wallace : 1965 SERVICE DATE: 10/03/21 History Patient presents with: Dizziness Abscess: PUBIC AREA 56-year-old male with PMH of DM, diverticulitis, RA, neuropathy, vertigo presents for multiple complaints. Patient states that he was sent here from [facility] due to complaints of dizziness. Patient reports over the past few days, he has felt dizzy. He states it is worsened when he turns his head to the side. He states he has a little bit of ringing in his ears occasionally as well. States that he had an episode like this several years ago and was told he had vertigo, but it resolved on its own. Patient reports a little bit lightheaded as well. Denies dizziness currently. He states it only comes on when he turns his head and then if he sits still, it resolves. He denies any chest pain or shortness of breath. No vision changes. No numbness or tingling in the arms or legs. No weakness in the extremities. Patient is also complaining of concern for abscess in his groin region. Patient states that his plucked out several hairs from this area recently. It then started to get red and irritated. It has been going on for about 2 weeks now. No fluctuance or large abscess felt. Express care diagnosed with folliculitis. Patient denies any fevers. No pain in the area. No other complaints. PAST MEDICAL HISTORY Diagnosis Date - Benign neoplasm of colon - COVID-19 08/09/2020 - Diabetes (HCC) - Diverticulitis - Diverticulitis of colon (without mention of hemorrhage)(562.11) - Morbidly obese (HCC) - Neuropathy - Osteoarthritis - Paralyzed hemidiaphragm - Raynaud phenomenon - Rheumatoid arthritis of hand ([facility]) PAST SURGICAL HISTORY Procedure Laterality Date - APPENDECTOMY 06/2007 - CHOLECYSTECTOMY 05/2004 - COLONOSCOPY FLX DX W/COLLJ SPEC WHEN PFRMD 2003, 2004 - ESOPHAGOGASTRODUODENOSCOPY TRANSORAL DIAGNOSTIC 2004 - INCISION AND DRAINAGE OF WOUND (IANDD) HX 03/02/[address] Vo - KNEE SURGERY HX Right 01/2018 - LAP COLECTOMY, SIGMOID W/FRUIT COORDINATOR 06/2007 Diverticulitis - LIPOMA (LARGE) 04/25/2013 excision, back FAMILY HISTORY Problem Relation Age of Onset - other (colonic polyps) Father - other (Esophageal Cancer) Father - Colon Cancer Mother rectal fistual - Diabetes Mother Social History Tobacco Use - Smoking status: Never Smoker - Smokeless tobacco: Never Used Vaping Use - Vaping Use: Never used Substance and Sexual Activity - Alcohol use: No - Drug use: No - Sexual activity: Not on file ALLERGIES Allergen Reactions - Pregabalin Unknown Review of Systems Constitutional: Negative for chills and fever. HENT: Negative for congestion. Eyes: Negative for visual disturbance. Respiratory: Negative for shortness of breath. Cardiovascular: Negative for chest pain. Gastrointestinal: Negative for abdominal pain, diarrhea, nausea and vomiting. Endocrine: Negative for cold intolerance and heat intolerance. Genitourinary: Negative for dysuria, flank pain and hematuria. Musculoskeletal: Negative for arthralgias. Skin: Positive for color change. Negative for rash. Neurological: Positive for dizziness and light-headedness. Negative for headaches. Psychiatric/Behavioral: Negative for confusion. Physical Exam Vitals BP Pulse Temp Temp src Resp SpO2 Weight Height 10/03/21 1615 10/03/21 1615 10/03/21 1621 10/03/21 1621 10/03/21 1615 10/03/21 1615 10/03/21 1615 -- 135/79 80 36.8 ?C (98.2 ?F) Oral 20 98 % (!) 152.4 kg (336 lb) Physical Exam Vitals and nursing note reviewed. Constitutional: General: He is not in acute distress. Appearance: Normal appearance. He is not toxic-appearing. HENT: Head: Normocephalic and atraumatic. Right Ear: Tympanic membrane and ear canal normal. Left Ear: Tympanic membrane and ear canal normal. Nose: Nose normal. Mouth/Throat: Mouth: Mucous membranes are moist. Eyes: Conjunctiva/sclera: Conjunctivae normal. Cardiovascular: Rate and Rhythm: Normal rate and regular rhythm. Pulses: Normal pulses. Heart sounds: Normal heart sounds. Pulmonary: Effort: Pulmonary effort is normal. Breath sounds: Normal breath sounds. Abdominal: General: Bowel sounds are normal. Palpations: Abdomen is soft. Tenderness: There is no abdominal tenderness. Musculoskeletal: General: Normal range of motion. Cervical back: Normal range of motion. Skin: General: Skin is warm and dry. Capillary Refill: Capillary refill takes less than 2 seconds. Findings: Erythema present. No abscess. Comments: Patient has small area of erythema/irritation around hair follicles noted in his suprapubic region. Appears consistent with folliculitis. No flu (more content not included)... Normal [facility] [Mass/Vol] 2.2 mg/dL Normal 1.7-2.3 [facility] Comment on above: Order Comment: Speci men Type: BLOOD SPECIMENOrdering Facility: [facility] Address: [address] [place] [id number] Performed By: #### Edita CHRISTY, [id number], [id number] ###DEBRA [facility] LABORATORYCLIA [id number] [address] [place] TROPONIN Ton 10-03-2021 Troponin T.cardiac [Mass/Vol] ug/L Normal <=0.029 [facility] Comment on above: Order Comment: Speci men Type: BLOOD SPECIMENOrdering Facility: [facility] Address: [address] [place], [place] [id number] Performed By: #### [place], [id number], [id number] ####ROGE [facility] LABORATORYCLIA [id number] [address] [place] XR CHEST 2V FRONTAL/LATon XR CHEST 2V FRONTAL/LAT * * *Final Report* * * DATE OF EXAM: Oct 03 2021 6:00PM BRX [id number] - XR CHEST 2V FRONTAL/LAT / PROCEDURE REASON: Fatigue and malaise * * * * Physician Interpretation * * * * EXAMINATION: CHEST RADIOGRAPH (2 VIEW FRONTAL and LATERAL) CLINICAL HISTORY: Fatigue and malaise MQ: XC2_6 EXAM DATE/TIME: 10/03/2021 6:00 PM COMPARISON: 09/13/2020 RESULT: Lines, tubes, and devices: None. Lungs and pleura: No consolidation. No lung mass. No pleural effusion. No pneumothorax. Cardiomediastinal silhouette: Normal cardiomediastinal silhouette. Bones and soft tissues: Unremarkable. Unchanged elevated right hemidiaphragm. IMPRESSION: No acute radiographic abnormality. Coordinator Skill Training Program: PSC[facility] Transcribe Date/Time: Oct 03 2021 6:20P Dictated by : MARTHA DOLAN MD This examination was interpreted and the report reviewed and electronically signed by: MARTHA DOLAN MD on Oct 03 2021 6:21PM EST [id number] Normal [facility] CNOVon 04-07-2021 CNOV Office Visit (GENSME ) JAME WALLACE ([id number]) 1965 M Date Time Provider Department 04/07/21 10:15 AM VERONIQUE VO During your visit today, we recorded the following information about you: Veronique Vo MD 04/07/2021 5:42 PM Signed HPI: Hank presents in f/u of right buttock wound. EXAM: There were no vitals taken for this visit. Wound healing in nicely. Hypertrophic granulation tissue cauterized with silver nitrate. PATHOLOGY: none ASSESSMENT: (L02.31, L03.317) Cellulitis and abscess of buttock (primary encounter diagnosis) (A49.02) MRSA (methicillin resistant Staphylococcus aureus) infection Hank presents in f/u of right buttock wound. Cont gauze dressings. F/u in 2 weeks. No orders found for this visit on 04/07/21. Veronique Vo MD Referring Provider: VERONIQUE VO [[id number]] Allergies As of Date: 04/07/2021 Noted Allergy Reaction PREGABALIN 03/06/2021 16 - Unknown Date Reviewed: 04/07/2021 Reviewed by: Veronique Vo MD - Fully Assessed Reason for Visit: Follow Up [171] Cmt: CANDA buttock Primary Visit Diagnosis:Cellulitis and abscess of buttock [L02.31, L03.317] Other Visit Diagnosis:MRSA (methicillin resistant Staphylococcus aureus) infection [A49.02] Prescriptions as of 04/07/2021 - VITAMIN A ORAL Take by mouth. - dulaglutide (TRULICITY) 3 mg/0.5 mL pen injector Inject 3 mg subcutaneously one time a week. - empagliflozin-metFORMIN (SYNJARDY) 12.5-1,000 mg tab Take 1 tablet by mouth twice daily with meals. - acetaminophen (TYLENOL EXTRA STRENGTH) 500 mg tablet Take 2 tablets by mouth every 8 hours as needed for pain. - tiZANidine (ZANAFLEX) 4 mg tablet Take 1 tablet by mouth every 8 hours as needed (pain or muscle spasm). - gabapentin (NEURONTIN) 400 mg capsule Take 1 capsule by mouth three times daily for 30 days. - metoprolol tartrate 37.5 mg tab Take 1 tablet by mouth once daily. - cholecalciferol, vitamin D3, (VITAMIN D3 ORAL) Take 1,000 Units by mouth once daily. - DULoxetine (CYMBALTA) 20 mg capsule Take 60 mg by mouth daily at bedtime. - buPROPion (WELLBUTRIN) 100 mg tablet Take 100 mg by mouth twice daily. - ASPIRIN (ASPIR-81 ORAL) Take 1 tablet by mouth once daily. - glimepiride (AMARYL) 4 mg tablet Take 4 mg by mouth daily with breakfast. - amLODIPine (NORVASC) 5 mg tablet Take 5 mg by mouth once daily. - traMADol 50 mg tablet Take 1 tablet by mouth every 8 hours as needed for Pain. Problem List As Of Date 04/07/2021 Noted Resolved Diverticulitis of colon (without mention of hem* 01/19/2011 Colonic polyp [D12.6] Type 2 diabetes mellitus (HCC) [E11.9] 01/19/2009 Diabetic neuropathy, painful (HCC) [E11.40] 01/19/2011 Hyperlipidemia with target low density lipoprot*01/19/2011 Gout [M10.9] 02/11/2013 Subcutaneous mass [R22.9] 04/23/2013 05/15/2013 Post-operative state [Z98.890] 05/15/2013 08/11/2019 Hypertension [I10] 04/28/2014 Osteoarthritis of spine with radiculopathy, lum*07/23/2015 Degeneration of lumbar intervertebral disc [M51*10/08/2015 Radiculopathy, lumbar region [M54.16] 10/08/2015 Stenosis, spinal, lumbar [M48.061] 10/08/2015 Chronic bilateral low back pain with right-side*10/08/2015 09/05/2016 Chronic bilateral low back pain with left-sided*10/13/2016 Closed physeal fracture of fifth metatarsal bon*08/11/2019 Diverticulitis [K57.92] Rheumatoid arthritis of hand (HCC) [M06.9] Morbidly obese (HCC) [E66.01] COVID-19 virus infection [U07.1] 08/09/2020 Acute respiratory failure with hypoxia ([facility]) [J*08/09/2020 Pneumonia due to COVID-19 virus [U07.1, J12.82] 08/09/2020 Obesity, Class III, BMI >= 40 [E66.01] 08/09/2020 Cellulitis and abscess of buttock [L02.31, L03.*03/02/2021 BHAVYA (acute kidney injury) (HCC) [N17.9] 03/02/2021 Diaphragm paralysis [J98.6] Obstructive sleep apnea: Moderate Home sleep st*11/15/2020 Osteoarthritis [M19.90] Disposition: Return in about 2 weeks (around 04/21/2021). Follow-up and Disposition History Recorded Encounter Status:Closed by VERONIQUE VO on 04/07/21 [facility] CNOVon 03-24-2021 CNOV Office Visit (OSMEL ) JAME WALLACE ([id number]) 1965 M Date Time Provider Department 03/24/21 10:45 AM VERONIQUE VO During your visit today, we recorded the following information about you: Анна Lynne 03/24/2021 11:27 AM Signed Pt states 4/10 on a pain scale. Pt c/o greenish/ white dischare. Shooting/ stabbing/ throbbing pain from sitting in car. Veronique Vo MD 03/24/2021 11:27 AM Signed HPI: Hank presents in follow-up of his right buttock abscess. He is doing well. There is still some pinching when he sits. His is changing the dressing daily. EXAM: There were no vitals taken for this visit. Right buttock: The depth of the wound is much improved, no tunneling. Small amount of fibrinous exudate was removed in the office today with scalpel. Minimal bleeding. PATHOLOGY: None ASSESSMENT: (L02.31, L03.317) Cellulitis and abscess of buttock (primary encounter diagnosis) (A49.02) MRSA (methicillin resistant Staphylococcus aureus) infection Hank presents in follow-up of his right buttock abscess. This is healing in very nicely. They will continue dry gauze dressing changes 1-2 times per day. He will return to see me in 2 weeks. No antibiotics needed. Office Visit on 03/24/21 - VITAMIN A ORAL Veronique Vo MD Referring Provider: VERONIQUE VO [[id number]] Allergies As of Date: 03/24/2021 Noted Allergy Reaction PREGABALIN 03/06/2021 16 - Unknown Date Reviewed: 03/24/2021 Reviewed by: Veronique Vo MD - Fully Assessed Reason for Visit: Post Op [174] Cmt: 03/15/21 cellulitis and abscess Primary Visit Diagnosis:Cellulitis and abscess of buttock [L02.31, L03.317] Other Visit Diagnosis:MRSA (methicillin resistant Staphylococcus aureus) infection [A49.02] Prescriptions as of 03/24/2021 - VITAMIN A ORAL Take by mouth. - dulaglutide (TRULICITY) 3 mg/0.5 mL pen injector Inject 3 mg subcutaneously one time a week. - empagliflozin-metFORMIN (SYNJARDY) 12.5-1,000 mg tab Take 1 tablet by mouth twice daily with meals. - acetaminophen (TYLENOL EXTRA STRENGTH) 500 mg tablet Take 2 tablets by mouth every 8 hours as needed for pain. - tiZANidine (ZANAFLEX) 4 mg tablet Take 1 tablet by mouth every 8 hours as needed (pain or muscle spasm). - gabapentin (NEURONTIN) 400 mg capsule Take 1 capsule by mouth three times daily for 30 days. - metoprolol tartrate 37.5 mg tab Take 1 tablet by mouth once daily. - cholecalciferol, vitamin D3, (VITAMIN D3 ORAL) Take 1,000 Units by mouth once daily. - DULoxetine (CYMBALTA) 20 mg capsule Take 60 mg by mouth daily at bedtime. - buPROPion (WELLBUTRIN) 100 mg tablet Take 100 mg by mouth twice daily. - ASPIRIN (ASPIR-81 ORAL) Take 1 tablet by mouth once daily. - glimepiride (AMARYL) 4 mg tablet Take 4 mg by mouth daily with breakfast. - amLODIPine (NORVASC) 5 mg tablet Take 5 mg by mouth once daily. - traMADol 50 mg tablet Take 1 tablet by mouth every 8 hours as needed for Pain. Problem List As Of Date 03/24/2021 Noted Resolved Diverticulitis of colon (without mention of hem* 01/19/2011 Colonic polyp [D12.6] Type 2 diabetes mellitus (HCC) [E11.9] 01/19/2009 Diabetic neuropathy, painful (HCC) [E11.40] 01/19/2011 Hyperlipidemia with target low density lipoprot*01/19/2011 Gout [M10.9] 02/11/2013 Subcutaneous mass [R22.9] 04/23/2013 05/15/2013 Post-operative state [Z98.890] 05/15/2013 08/11/2019 Hypertension [I10] 04/28/2014 Osteoarthritis of spine with radiculopathy, lum*07/23/2015 Degeneration of lumbar intervertebral disc [M51*10/08/2015 Radiculopathy, lumbar region [M54.16] 10/08/2015 Stenosis, spinal, lumbar [M48.061] 10/08/2015 Chronic bilateral low back pain with right-side*10/08/2015 09/05/2016 Chronic bilateral low back pain with left-sided*10/13/2016 Closed physeal fracture of fifth metatarsal bon*08/11/2019 Diverticulitis [K57.92] Rheumatoid arthritis of hand (HCC) [M06.9] Morbidly obese (HCC) [E66.01] COVID-19 virus infection [U07.1] 08/09/2020 Acute respiratory failure with hypoxia (HCC) [J*08/09/2020 Pneumonia due to COVID-19 virus [U07.1, J12.82] 08/09/2020 Obesity, Class III, BMI >= 40 [E66.01] 08/09/2020 Cellulitis and abscess of buttock [L02.31, L03.*03/02/2021 BHAVYA (acute kidney injury) (HCC) [N17.9] 03/02/2021 Diaphragm paralysis [J98.6] Obstructive sleep apnea: Moderate Home sleep st*11/15/2020 Osteoarthritis [M19.90] Disposition: Return in about 2 weeks (around 04/07/2021). Follow-up and Disposition History Recorded Encounter Status:Closed by VERONIQUE VO on 03/24/21 [facility] CNOVon 03-15-2021 CNOV Office Visit (OSMEL ) MARINAJAME Hawkins ([id number]) 1965 M Date Time Provider Department 03/15/21 1:00 PM VERONIQUE VO During your visit today, we recorded the following information about you: Veronique Vo MD 03/15/2021 1:13 PM Signed Pack wound with wide weave gauze 1-2 x day. Veronique Vo MD 03/15/2021 1:21 PM Signed HPI: Hank returns in follow-up of his right buttock abscess. He has completed his antibiotics. EXAM: There were no vitals taken for this visit. The right buttock wound has some fibrinous exudate that was excised in the office today. The wound was packed with dry gauze. PATHOLOGY: None ASSESSMENT: (L02.31, L03.317) Cellulitis and abscess of buttock (primary encounter diagnosis) (A49.02) MRSA (methicillin resistant Staphylococcus aureus) infection Hank returns in follow-up of his right buttock abscess that was drained in the OR on March 03. His was instructed on wound packing. He will return to see me in 1 week. No further antibiotics needed. No orders found for this visit on 03/15/21. Veronique Vo MD Referring Provider: GRIFFIN LIVE [[id number]] Allergies As of Date: 03/15/2021 Noted Allergy Reaction PREGABALIN 03/06/2021 16 - Unknown Date Reviewed: 03/15/2021 Reviewed by: Veronique Vo MD - Fully Assessed Primary Visit Diagnosis:Cellulitis and abscess of buttock [L02.31, L03.317] Other Visit Diagnosis:MRSA (methicillin resistant Staphylococcus aureus) infection [A49.02] Prescriptions as of 03/15/2021 - dulaglutide (TRULICITY) 3 mg/0.5 mL pen injector Inject 3 mg subcutaneously one time a week. - empagliflozin-metFORMIN (SYNJARDY) 12.5-1,000 mg tab Take 1 tablet by mouth twice daily with meals. - acetaminophen (TYLENOL EXTRA STRENGTH) 500 mg tablet Take 2 tablets by mouth every 8 hours as needed for pain. - tiZANidine (ZANAFLEX) 4 mg tablet Take 1 tablet by mouth every 8 hours as needed (pain or muscle spasm). - gabapentin (NEURONTIN) 400 mg capsule Take 1 capsule by mouth three times daily for 30 days. - metoprolol tartrate 37.5 mg tab Take 1 tablet by mouth once daily. - cholecalciferol, vitamin D3, (VITAMIN D3 ORAL) Take 1,000 Units by mouth once daily. - DULoxetine (CYMBALTA) 20 mg capsule Take 60 mg by mouth daily at bedtime. - buPROPion (WELLBUTRIN) 100 mg tablet Take 100 mg by mouth twice daily. - ASPIRIN (ASPIR-81 ORAL) Take 1 tablet by mouth once daily. - glimepiride (AMARYL) 4 mg tablet Take 4 mg by mouth daily with breakfast. - amLODIPine (NORVASC) 5 mg tablet Take 5 mg by mouth once daily. - traMADol 50 mg tablet Take 1 tablet by mouth every 8 hours as needed for Pain. Problem List As Of Date 03/15/2021 Noted Resolved Diverticulitis of colon (without mention of hem* 01/19/2011 Colonic polyp [D12.6] Type 2 diabetes mellitus (HCC) [E11.9] 01/19/2009 Diabetic neuropathy, painful (HCC) [E11.40] 01/19/2011 Hyperlipidemia with target low density lipoprot*01/19/2011 Gout [M10.9] 02/11/2013 Subcutaneous mass [R22.9] 04/23/2013 05/15/2013 Post-operative state [Z98.890] 05/15/2013 08/11/2019 Hypertension [I10] 04/28/2014 Osteoarthritis of spine with radiculopathy, lum*07/23/2015 Degeneration of lumbar intervertebral disc [M51*10/08/2015 Radiculopathy, lumbar region [M54.16] 10/08/2015 Stenosis, spinal, lumbar [M48.061] 10/08/2015 Chronic bilateral low back pain with right-side*10/08/2015 09/05/2016 Chronic bilateral low back pain with left-sided*10/13/2016 Closed physeal fracture of fifth metatarsal bon*08/11/2019 Diverticulitis [K57.92] Rheumatoid arthritis of hand (HCC) [M06.9] Morbidly obese (HCC) [E66.01] COVID-19 virus infection [U07.1] 08/09/2020 Acute respiratory failure with hypoxia (HCC) [J*08/09/2020 Pneumonia due to COVID-19 virus [U07.1, J12.82] 08/09/2020 Obesity, Class III, BMI >= 40 [E66.01] 08/09/2020 Cellulitis and abscess of buttock [L02.31, L03.*03/02/2021 BHAVYA (acute kidney injury) (HCC) [N17.9] 03/02/2021 Diaphragm paralysis [J98.6] Obstructive sleep apnea: Moderate Home sleep st*11/15/2020 Osteoarthritis [M19.90] Other instructions from your clinician: Pack wound with wide weave gauze 1-2 x day. Disposition: Return in about 1 week (around 03/22/2021). Follow-up and Disposition History Recorded Encounter Status:Closed by VERONIQUE VO on 03/15/21 [facility] 03-11-2021 [facility] Telephone ([facility]) JAME WALLACE ([id number]) 1965 M Date Time Provider Department 03/11/21 GRIFFIN LIVE [facility] During your visit today, we recorded the following information about you: Rita Cantor 03/11/2021 4:11 PM Signed Record ID: [id number] Patient Name: [facility]: Antonia Needham: Neurological Needham Attending: [facility]: Sleep Disorders INSTRUCTIONS MA to remind patient of next upcoming appointment date, time, location All Clear All Clear SURVEY INFORMATION Medical/Nurse 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 Your discharge instructions are important in guiding you through the recovery process. Is there anything I could help you clarify on your discharge instructions? (Standard Question) Yes 2. We encourage a follow up appointment with your physician. Do you have one scheduled? If not; What is the name of the doctor you should be seeing for your follow-up care? (Standard Question) Yes 4. Have you experienced any side-effects that may be from your medications? (Red Flag Question) No 3. Many patients have concerns about their medications once they are home. Do you have any questions about getting or taking your medications? (Standard Question) No 5. Do you have any new or worsening symptoms? (Standard Question) No Allergies As of Date: 03/11/2021 Noted Allergy Reaction PREGABALIN 03/06/2021 16 - Unknown Date Reviewed: 03/06/2021 Reviewed by: Lauri Salazar RN - Fully Assessed Reason for Visit: Follow Up Phone Call [[id number]] Cmt: All Clear Prescriptions as of 03/11/2021 - oxyCODONE-acetaminophen (PERCOCET) 5-325 mg tablet Take 1 tablet by mouth four times daily as needed for pain for up to 3 days. - doxycycline hyclate (VIBRAMYCIN) 100 mg capsule Take 1 capsule by mouth every 12 hours for 14 doses. - dulaglutide (TRULICITY) 3 mg/0.5 mL pen injector Inject 3 mg subcutaneously one time a week. - empagliflozin-metFORMIN (SYNJARDY) 12.5-1,000 mg tab Take 1 tablet by mouth twice daily with meals. - acetaminophen (TYLENOL EXTRA STRENGTH) 500 mg tablet Take 2 tablets by mouth every 8 hours as needed for pain. - tiZANidine (ZANAFLEX) 4 mg tablet Take 1 tablet by mouth every 8 hours as needed (pain or muscle spasm). - gabapentin (NEURONTIN) 400 mg capsule Take 1 capsule by mouth three times daily for 30 days. - metoprolol tartrate 37.5 mg tab Take 1 tablet by mouth once daily. - cholecalciferol, vitamin D3, (VITAMIN D3 ORAL) Take 1,000 Units by mouth once daily. - DULoxetine (CYMBALTA) 20 mg capsule Take 60 mg by mouth daily at bedtime. - buPROPion (WELLBUTRIN) 100 mg tablet Take 100 mg by mouth twice daily. - ASPIRIN (ASPIR-81 ORAL) Take 1 tablet by mouth once daily. - glimepiride (AMARYL) 4 mg tablet Take 4 mg by mouth daily with breakfast. - amLODIPine (NORVASC) 5 mg tablet Take 5 mg by mouth once daily. - traMADol 50 mg tablet Take 1 tablet by mouth every 8 hours as needed for Pain. Problem List As Of Date 03/11/2021 Noted Resolved Diverticulitis of colon (without mention of hem* 01/19/2011 Colonic polyp [D12.6] Type 2 diabetes mellitus (HCC) [E11.9] 01/19/2009 Diabetic neuropathy, painful (HCC) [E11.40] 01/19/2011 Hyperlipidemia with target low density lipoprot*01/19/2011 Gout [M10.9] 02/11/2013 Subcutaneous mass [R22.9] 04/23/2013 05/15/2013 Post-operative state [Z98.890] 05/15/2013 08/11/2019 Hypertension [I10] 04/28/2014 Osteoarthritis of spine with radiculopathy, lum*07/23/2015 Degeneration of lumbar intervertebral disc [M51*10/08/2015 Radiculopathy, lumbar region [M54.16] 10/08/2015 Stenosis, spinal, lumbar [M48.061] 10/08/2015 Chronic bilateral low back pain with right-side*10/08/2015 09/05/2016 Chronic bilateral low back pain with left-sided*10/13/2016 Closed physeal fracture of fifth metatarsal bon*08/11/2019 Diverticulitis [K57.92] Rheumatoid arthritis of hand (HCC) [M06.9] Morbidly obese (HCC) [E66.01] COVID-19 virus infection [U07.1] 08/09/2020 Acute respiratory failure with hypoxia (HCC) [J*08/09/2020 Pneumonia due to COVID-19 virus [U07.1, J12.82] 08/09/2020 Obesity, Class III, BMI >= 40 [E66.01] 08/09/2020 Cellulitis and abscess of buttock [L02.31, L03.*03/02/2021 BHAVYA (acute kidney injury) (HCC) [N17.9] 03/02/2021 Diaphragm paralysis [J98.6] Obstructive sleep apnea: Moderate Home sleep st*11/15/2020 Osteoarthritis [M19.90] Encounter Status:Closed by RITA CANTOR on 03/11/21 [facility] 03-07-2021 [facility] Telephone ([facility]) JAME WALLACE ([id number]) 1965 M Date Time Provider Department 03/07/21 CATHERINE PARMAR During your visit today, we recorded the following information about you: MAURI Colbert 03/07/2021 2:03 PM Signed Patients called, stated patient is still in pain following the procedure done 03/03. Asking if patient can be prescribed medication to ease pain. Please advise. Saima Meza RN 03/07/2021 4:34 PM Signed 03/03/2021 I AND D Abscess buttock Patient calls with c/o pain: Location: right lower buttock Intensity: 8/10 Character: sharp, shooting Frequency: constant Duration: Today Aggravating: sitting and dressing changes Alleviating Factors: Ice, patient took Aleve this morning and has been taking Tylenol 500 mg, 2 tabs every 4 hours since surgery. Today the pain has increased and Tylenol is not helping. Patient asks for a more effective pain reliever Preferred pharmacy has been confirmed Manuel Mariano RN 03/08/2021 10:34 AM Signed Spoke with patient as was calling back to see if anything else could be ordered for pain. 7 for pain today, and he is taking the Below Aleve and Tylenol with little relief. Yesterday draining was worse than today. 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 Post op appt next week with Dr. Vo 03-15-2021. Advised anything else for pain? Sent home with just Bridgette. Please Advise. Veronique Vo MD 03/08/2021 1:04 PM Signed Percocet sent to pharmacy Maria D Mariano RN 03/08/2021 2:25 PM Signed Patient is very thankful and will see you [place]. Will follow up with Pharmacy. Allergies As of Date: 03/07/2021 Noted Allergy Reaction PREGABALIN 03/06/2021 16 - Unknown Date Reviewed: 03/06/2021 Reviewed by: Lauri Salazar RN - Fully Assessed Reason for Visit: Pain [78] Cmt: post op Primary Visit Diagnosis:Abscess [L02.91] Order(s):oxyCODONE-acetamin ophen (PERCOCET) 5-325 mg tabletTake 1 tablet by mouth four times daily as needed for pain for up to 3 days.Disp: 12 tabletRfl: 0 Prescriptions as of 03/08/2021 - oxyCODONE-acetaminophen (PERCOCET) 5-325 mg tablet Take 1 tablet by mouth four times daily as needed for pain for up to 3 days. - doxycycline hyclate (VIBRAMYCIN) 100 mg capsule Take 1 capsule by mouth every 12 hours for 14 doses. - dulaglutide (TRULICITY) 3 mg/0.5 mL pen injector Inject 3 mg subcutaneously one time a week. - empagliflozin-metFORMIN (SYNJARDY) 12.5-1,000 mg tab Take 1 tablet by mouth twice daily with meals. - acetaminophen (TYLENOL EXTRA STRENGTH) 500 mg tablet Take 2 tablets by mouth every 8 hours as needed for pain. - tiZANidine (ZANAFLEX) 4 mg tablet Take 1 tablet by mouth every 8 hours as needed (pain or muscle spasm). - gabapentin (NEURONTIN) 400 mg capsule Take 1 capsule by mouth three times daily for 30 days. - metoprolol tartrate 37.5 mg tab Take 1 tablet by mouth once daily. - cholecalciferol, vitamin D3, (VITAMIN D3 ORAL) Take 1,000 Units by mouth once daily. - DULoxetine (CYMBALTA) 20 mg capsule Take 60 mg by mouth daily at bedtime. - buPROPion (WELLBUTRIN) 100 mg tablet Take 100 mg by mouth twice daily. - ASPIRIN (ASPIR-81 ORAL) Take 1 tablet by mouth once daily. - glimepiride (AMARYL) 4 mg tablet Take 4 mg by mouth daily with breakfast. - amLODIPine (NORVASC) 5 mg tablet Take 5 mg by mouth once daily. - traMADol 50 mg tablet Take 1 tablet by mouth every 8 hours as needed for Pain. Problem List As Of Date 03/07/2021 Noted Resolved Diverticulitis of colon (without mention of hem* 01/19/2011 Colonic polyp [D12.6] Type 2 diabetes mellitus (HCC) [E11.9] 01/19/2009 Diabetic neuropathy, painful (HCC) [E11.40] 01/19/2011 Hyperlipidemia with target low density lipoprot*01/19/2011 Gout [M10.9] 02/11/2013 Subcutaneous mass [R22.9] 04/23/2013 05/15/2013 Post-operative state [Z98.890] 05/15/2013 08/11/2019 Hypertension [I10] 04/28/2014 Osteoarthritis of spine with radiculopathy, lum*07/23/2015 Degeneration of lumbar intervertebral disc [M51*10/08/2015 Radiculopathy, lumbar region [M54.16] 10/08/2015 Stenosis, spinal, lumbar [M48.061] 10/08/2015 Chronic bilateral low back pain with right-side*10/08/2015 09/05/2016 Chronic bilateral low back pain with left-sided*10/13/2016 Closed physeal fracture of fifth metatarsal bon*08/11/2019 Diverticulitis [K57.92] Rheumatoid arthritis of hand (HCC) [M06.9] Morbidly obese (HCC) [E66.01] COVID-19 virus infection [U07.1] 08/09/2020 Acute respiratory failure with hypoxia (HCC) [J*08/09/2020 Pneumonia due to COVID-19 virus [U07.1, J12.82] 08/09/2020 Obesity, Class III, BMI >= 40 [E66.01] 08/09/2020 Cellulitis and abscess of buttock [L02.31, L03.*03/02/2021 BHAVYA (acute kidney injury) (HCC) [N17.9] 03/02/2021 Diaphragm paralysis [J9 (more content not included)... Normal [facility] ALBUMINon 12-24-2020 Albumin [Mass/Vol] 3.9 g/dL Normal 3.4 - 5.0 [facility] Comment on above: Performed By: #### A LB #### [facility] [address] [place] [address] Keshawn 12-24-2020 ALT [Catalytic activity/Vol] 21 U/L Normal 10 - 52 [facility] Comment on above: Result Comment: Damari ents treated with Sulfasalazine may generate falsely decreased results for ALT. Performed By: #### A LT #### [facility] [address] [place] [address] ALT - Alanine Aminotransfera se, Serumon 12-24-2020 ALT With P-5'-P [Catalytic activity/Vol] 21 U/L [facility] [employer] Work Phone: [phone] Comment on above: Patients treated wit h Sulfasalazine may generate falsely decreased results for ALT. Parker 12-24-2020 AST [Catalytic activity/Vol] 22 U/L Normal 9 - 39 [facility] Comment on above: Performed By: #### A ST #### [facility] [address] [place] [address] Albumin, Serumon 12-24-2020 Albumin BCP dye [Mass/Vol] 3.9 g/dL 3.4 - 5.0 [facility] [employer] Work Phone: [phone] Blood Urea Nitrogen, Serumon 12-24-2020 Urea nitrogen [Mass/Vol] 17 mg/dL [facility] [employer] Work Phone: [phone] C Reactive Protein, Serumon 12-24-2020 CRP [Mass/Vol] 1.16 mg/dL Abnormal [facility] [employer] Work Phone: [phone] Comment on above: REF VALUE< 1.00 C-REACTIVE PROTEINon 021 C-REACTIVE PROTEIN 1.16 mg/dL Abnormal [facility] Comment on above: Result Comment: REF VALUE < 1.00 Performed By: #### C RP #### [facility] [address] [place] [address] CBC AND DIFFERENTIALon 12-24 % AUTOMATED IMMATURE GRAN 0.2 % Normal 0.0 - 0.9 [facility] Comment on above: Result Comment: Shobha ture Granulocyte Count (IG) includes promyelocytes, myelocytes and metamyelocytes but does not include bands. Percent differential counts (%) should be interpreted in the context of the absolute cell counts (cells/L). Performed By: #### C BCDF #### [facility] [address] [place] [address] Basophils (Bld) [#/Vol] 0.04 10*3/uL Normal 0.00 - 0.10 [facility] Comment on above: Performed By: #### C BCDF #### [facility] [address] [place] [address] Basophils/100 WBC (Bld) 0.5 % Normal 0.0 - 2.0 [facility] Comment on above: Performed By: #### C BCDF #### [facility] [address] [place] [address] Eosinophils (Bld) [#/Vol] 0.14 10*3/uL Normal 0.00 - 0.70 [facility] Comment on above: Performed By: #### C BCDF #### [facility] [address] [place] [address] Eosinophils/100 WBC (Bld) 1.7 % Normal 0.0 - 6.0 [facility] Comment on above: Performed By: #### C BCDF #### [facility] [address] [place] [address] Erythrocyte distribution width (RBC) [Ratio] 13.2 % Normal 11.5 - 14.5 [facility] Comment on above: Performed By: #### C BCDF #### [facility] [address] [place] [address] Hematocrit (Bld) [Volume fraction] 51.4 % Normal 41.0 - 52.0 [facility] Comment on above: Performed By: #### C BCDF #### [facility] [address] [place] [address] Hemoglobin (Bld) [Mass/Vol] 16.5 g/dL Normal 13.5 - 17.5 [facility] Comment on above: Performed By: #### C BCDF #### [facility] [address] [place] [address] Lymphocytes (Bld) [#/Vol] 1.63 10*3/uL Normal 1.20 - 4.80 [facility] Comment on above: Performed By: #### C BCDF #### [facility] [address] [place] [address] Lymphocytes/100 WBC (Bld) 20.2 % Normal 13.0 - 44.0 [facility] Comment on above: Performed By: #### C BCDF #### [facility] [address] [place] [address] MCHC (RBC) [Mass/Vol] 32.1 g/dL Normal 32.0 - 36.0 [facility] Comment on above: Performed By: #### C BCDF #### [facility] [address] [place] [address] MCV (RBC) [Entitic vol] 98 fL Normal 80 - 100 [facility] Comment on above: Performed By: #### C BCDF #### [facility] [address] [place] [address] Monocytes (Bld) [#/Vol] 0.76 10*3/uL Normal 0.10 - 1.00 [facility] Comment on above: Performed By: #### C BCDF #### [facility] [address] [place] [address] Monocytes/100 WBC (Bld) 9.4 % Normal 2.0 - 10.0 [facility] Comment on above: Performed By: #### C BCDF #### [facility] [address] [place] [address] Neutrophils (Bld) [#/Vol] 5.47 10*3/uL Normal 1.20 - 7.70 [facility] Comment on above: Performed By: #### C BCDF #### [facility] [address] [place] [address] Neutrophils/100 WBC (Bld) 68.0 % Normal 40.0 - 80.0 [facility] Comment on above: Performed By: #### C BCDF #### [facility] [address] [place] [address] NUCLEATED RBC 0.0 /100 WBC Normal 0.0-0.0 [facility] Comment on above: Performed By: #### C BCDF #### [facility] [address] [place] [address] Platelets (Bld) [#/Vol] 244 10*3/uL Normal 150 - 450 [facility] Comment on above: Performed By: #### C BCDF #### [facility] [address] [place] [address] RBC 5.25 x10E12/L Normal 4.50 - 5.90 [facility] Comment on above: Performed By: #### C BCDF #### [facility] [address] [place] [address] WBC (Bld) [#/Vol] 8.1 10*3/uL Normal 4.4 - 11.3 [facility] Comment on above: Performed By: #### C BCDF #### [facility] [address] [place] [address] CREATININEon 12-24-2020 Creatinine [Mass/Vol] 1.33 mg/dL High 0.50 - 1.30 [facility] Comment on above: Performed By: #### C REAT #### [facility] [address] [place] [address] GFR- AM. 68 mL/min/1.73m2 Normal >60 [facility] Comment on above: Result Comment: CALC ULATIONS OF ESTIMATED GFR ARE PERFORMED USING THE MDRD STUDY EQUATION FOR THE IDMS-TRACEABLE CREATININE METHODS. CLIN CHEM 2007;53:766-72 Performed By: #### C REAT #### [facility] [address] [place] [address] GFR-NON AM. 56 mL/min/1.73m2 Abnormal >60 [facility] Comment on above: Performed By: #### C REAT #### [facility] [address] [place] [address] Complete Blood Count + Diffe rentialon 12-24-2020 Basophils/100 WBC (Bld) 0.5 % 0.0 - 2.0 [employer] [facility] [employer] Work Phone: [phone] Erythrocyte distribution width (RBC) [Ratio] 13.2 % See Below [employer] [facility] [employer] Work Phone: [phone] Comment on above: Reference Range: 11. 5 - 14.5 Hematocrit (Bld) [Volume fraction] 51.4 % See Below [employer] [facility] [employer] Work Phone: [phone] Comment on above: Reference Range: 41. 0 - 52.0 Hemoglobin (Bld) [Mass/Vol] 16.5 g/dL See Below [employer] [facility] [employer] Work Phone: [phone] Comment on above: Reference Range: 13. 5 - 17.5 Lymphocytes/100 WBC (Bld) 20.2 % See Below [employer] [facility] [employer] Work Phone: [phone] Comment on above: Reference Range: 13. 0 - 44.0 MCHC (RBC) [Mass/Vol] 32.1 g/dL See Below [employer] [facility] [employer] Work Phone: [phone] Comment on above: Reference Range: 32. 0 - 36.0 MCV (RBC) [Entitic vol] 98 fL 80 - 100 [employer] [facility] [employer] Work Phone: [phone] Monocytes/100 WBC (Bld) 9.4 % 2.0 - 10.0 [employer] [facility] [employer] Work Phone: [phone] Neutrophils/100 WBC (Bld) 68.0 % See Below [employer] [facility] [employer] Work Phone: [phone] Comment on above: Reference Range: 40. 0 - 80.0 Platelets (Bld) [#/Vol] 244 10*3/uL 150 - 450 [facility] Work Phone: [phone] RBC (Bld) [#/Vol] 5.25 {x10E12/L} See Below [facility] Work Phone: [phone] Comment on above: Reference Range: 4.5 0 - 5.90 WBC (Bld) [#/Vol] 8.1 10*3/uL 4.4 - 11.3 -[facility] [employer] Work Phone: [phone] Complete Blood Count + Differential 0.04 {x10E9/L} See Below [facility] Work Phone: [phone] Comment on above: Reference Range: 0.0 0 - 0.10 Complete Blood Count + Differential 0.14 {x10E9/L} See Below [facility] [employer] Work Phone: [phone] Comment on above: Reference Range: 0.0 0 - 0.70 Complete Blood Count + Differential 0.76 {x10E9/L} See Below [facility] [employer] Work Phone: [phone] Comment on above: Reference Range: 0.1 0 - 1.00 Complete Blood Count + Differential 1.63 {x10E9/L} See Below [facility] [employer] Work Phone: [phone] Comment on above: Reference Range: 1.2 0 - 4.80 Complete Blood Count + Differential 5.47 {x10E9/L} See Below [facility] [employer] Work Phone: [phone] Comment on above: Reference Range: 1.2 0 - 7.70 Complete Blood Count + Differential 1.7 % 0.0 - 6.0 [facility] [employer] Work Phone: [phone] Complete Blood Count + Differential 0.2 % 0.0 - 0.9 -[facility] [employer] Work Phone: Comment on above: Immature Granulocyte Count (IG) includes promyelocytes, myelocytes and metamyelocytes but does not include bands. Percent differential counts (%) should be interpreted in the context of the absolute cell counts (cells/L). Complete Blood Count + Differential 0.0 {/100_WBC} 0.0-0.0 [employer] [facility] [employer] Work Phone: Creatinine, Serumon 12-25-19 Creatinine [Mass/Vol] 1.33 mg/dL above high threshold See Below [employer] [facility] [employer] Work Phone: Comment on above: Reference Range: 0.5 0 - 1.30 Creatinine, Serum 68 {mL/min/1.73m2} >60 [employer] [facility] [employer] Work Phone: Comment on above: CALCULATIONS OF DELANEY MATED GFR ARE PERFORMED USING THE MDRD STUDY EQUATION FOR THE IDMS-TRACEABLE CREATININE METHODS. CLIN CHEM 2007;53:766-72 Creatinine, Serum 56 {mL/min/1.73m2} Abnormal >60 [employer] [facility] [employer] Work Phone: Follow Up (Rheumatology)on 0 12-24-2020 Follow Up (Rheumatology) Diagnoses/Problems Assessed Raynaud's disease (443.0) (I73.00) Raynaud's is inactive. Lumbosacral radiculopathy at L5 (724.4) (M54.17) Primary osteoarthritis involving multiple joints (715.98) (M89.49) Osteoarthritis and NSAID therapy. Symptoms are worse ever since he had Covid. We will change NSAID to see if he gets relief of symptoms. Labs ordered to assess disease activity and for any drug toxicity. 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 Orders Class 3 severe obesity due to excess calories with body mass index (BMI) of 45.0 to 49.9 in adult DIET AND HEALTH - ARNOL; Status:Active; Requested for:24Dec2020; Perform:[employer];Ordered; For:Class 3 severe obesity due to excess calories with body mass index (BMI) of 45.0 to 49.9 in adult; Ordered By:Rosie Guerrero; HEART HEALTHY DIET - ARNOL; Status:Active; Requested for:24Dec2020; Perform:[employer];Ordered; For:Class 3 severe obesity due to excess calories with body mass index (BMI) of 45.0 to 49.9 in adult; Ordered By:Rosie Guerrero; Primary osteoarthritis involving multiple joints Stop: Indomethacin 50 MG Oral Capsule Rx By: Rosie Guerrero; Dispense: 30 Days ; #:60 Capsule; Refill: 5;For: Primary osteoarthritis involving multiple joints; ERVIN = N; Verified Transmission to [id number] Start: Celecoxib 200 MG Oral Capsule (Celecoxib); TAKE 1 CAPSULE Daily Rx By: Rosie Guerrero; Dispense: 0 Days ; #:30 Capsule; Refill: 5;For: Primary osteoarthritis involving multiple joints; ERVIN = N; Sent To: [id number] Raynaud's disease Albumin, Serum; Status:In Progress - Specimen/Data Collected; Done: 24Dec2020 Perform:Lab Services - Lab To Draw (Blood Test); Due:24Mar2021;Ordered; For:Raynaud's disease; Ordered By:Rosie Guerrero; ALT - Alanine Aminotransferase, Serum; Status:In Progress - Specimen/Data Collected; Done: 24Dec2020 Perform:Lab Services - Lab To Draw (Blood Test); Due:24Mar2021;Ordered; For:Raynaud's disease; Ordered By:Rosie Guerrero; AST; Status:In Progress - Specimen/Data Collected; Done: [id number] Perform:Lab Services - Lab To Draw (Blood Test); Due:24Mar2021;Ordered; For:Raynaud's disease; Ordered By:Rosie Guerrero; Blood Urea Nitrogen, Serum; Status:In Progress - Specimen/Data Collected; Done: [id number] Perform:Lab Services - Lab To Draw (Blood Test); Due:24Mar2021;Ordered; For:Raynaud's disease; Ordered By:Rosie Guerrero; C Reactive Protein, Serum; Status:In Progress - Specimen/Data Collected; Done: [id number] Perform:Lab Services - Lab To Draw (Blood Test); Due:24Mar2021;Ordered; For:Raynaud's disease; Ordered By:Rosie Guerrero; Complete Blood Count + Differential; Status:In Progress - Specimen/Data Collected; Done: [id number] Perform:Lab Services - Lab To Draw (Blood Test); Due:24Mar2021;Ordered; For:Raynaud's disease; Ordered By:Rosie Guerrero; Creatinine, Serum; Status:In Progress - Specimen/Data Collected; Done: [id number] Perform:Lab Services - Lab To Draw (Blood Test); Due:24Mar2021;Ordered; For:Raynaud's disease; Ordered By:Rosie Guerrero; Hemoglobin A1C; Status:In Progress - Specimen/Data Collected; Done: [id number] Perform:Lab Services - Lab To Draw (Blood Test); Due:24Mar2021;Ordered; For:Raynaud's disease; Ordered By:Rosie Guerrero; Sedimentation Rate, Erythrocyte; Status:In Progress - Specimen/Data Collected; Done: [id number] Perform:Lab Services - Lab To Draw (Blood Test); Due:24Mar2021;Ordered; For:Raynaud's disease; Ordered By:Rosie Guerrero; Patient Discussion/Summary It was a pleasure seeing you today Please call if symptoms worsen Follow up in 6 months Patient Education Homegoing instructions As always, a healthy lifestyle helps chronic diseases. These are all the goals you should strive to achieve to improve your overall health: blood pressure less than 130/85 BMI of 21-29.99 or a waist circumference that is 1/2 of your height fasting blood sugar less than 107 (if you are diabetic, aim for your A1c to be below 6.4% LDL cholesterol below 130 avoid smoking manage your stress see your primary care doctor for preventive exams get your immunizations Provider Impressions See today's active problems for detailed impression of all addressed problems Patient seen primarily today for Osteoarthritis and NSAID therapy. Symptoms are worse ever since he had Covid. We will change NSAID to see if he gets relief of symptoms. Labs ordered to assess disease activity and for any drug toxicity. See orders for details To assess diagnosis and determine treatment plan, the following occurred today ---Testing was ordered and see order section for details This visit has a moderate risk for morbidity as ---prescription drugs are being prescribed and m (more content not included)... Normal [employer] HEMOGLOBIN A1Con 12-24-2020 Glucose [Mass/Vol] 203 mg/dL Normal [facility] Comment on above: Performed By: #### H BA1E #### [facility] [address] [place] [address] HbA1c (Bld) [Mass fraction] 8.7 % Normal [facility] Comment on above: Result Comment: Diag nosis of Diabetes-Adults Non-Diabetic: < or = 5.6% Increased risk for developing diabetes: 5.7-6.4% Diagnostic of diabetes: > or = 6.5% . Monitoring of Diabetes Age (y) Therapeutic Goal (%) Adults: >18 <7.0 Pediatrics: 13-18 <7.5 7-12 <8.0 0- 6 7.5-8.5 [employer] [employer]. Diabetes Care 33(S1), Jun 2009. Performed By: #### H BA1E #### [facility] [address] [place] [address] Hemoglobin A1Con 12-24-2020 Glucose [Mass/Vol] 203 mg/dL [facility] Work Phone: HbA1c (Bld) [Mass fraction] 8.7 % [facility] [employer] Work Phone: Comment on above: Diagnosis of Diabete s-Adults Non-Diabetic: < or = 5.6% Increased risk for developing diabetes: 5.7-6.4% Diagnostic of diabetes: > or = 6.5%. Monitoring of Diabetes Age (y) Therapeutic Goal (%) Adults: >18 <7.0 Pediatrics: 13-18 <7.5 7-12 <8.0 0- 6 7.5-8.5 [place] [employer]. Diabetes Care 33(S1), Jun 2009. Laboratory - Chemistry and C hemistry - challengeon 12-24-2020 AST With P-5'-P [Catalytic activity/Vol] 22 U/L 9 - 39 [facility] [employer] Work Phone: [phone] SEDIMENTATION RATE, ERYTHROC YTEon 12-24-2020 SEDIMENTATION RATE, ERYTHROCYTE 39 mm/h High 0 - 20 [facility] Comment on above: Performed By: #### E SRWS #### [facility] [address] [place] [address] Sedimentation Rate, Erythroc yteon 12-24-2020 ESR (Bld) [Velocity] 39 mm/h above high threshold 0 - 20 [facility] [employer] Work Phone: [phone] Tobacco Screening.on 021 Fall risk assessment a) No falls within the last year [facility] [employer] Work Phone: [phone] Tobacco use status [facility] b) No [facility] [employer] Work Phone: [phone] UREA NITROGENon 12-24-2020 Urea nitrogen [Mass/Vol] 17 mg/dL Normal - [facility] Comment on above: Performed By: #### U GIORGIO #### [facility] [address] 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.98) (M89.49) NSAID long-term use (V58.64) (Z79.1) Body mass index (BMI) of 40.0-44.9 in adult (V85.41) (Z68.41) Orders Primary osteoarthritis involving multiple joints Start: Indomethacin 50 MG Oral Capsule; TAKE 1 CAPSULE TWICE DAILY Rx By: Rosie Guerrero; Dispense: 30 Days ; #:60 Capsule; Refill: 5;For: Primary osteoarthritis involving multiple joints; ERVIN = N; Verified Transmission to [facility] #[id number]; Last Updated By: [employer]; 06/25/2020 3:29:03 PM Patient Discussion/Summary It was a pleasure seeing you today Please call if symptoms worsen Follow up in 6 months Patient Education Homegoing instructions As always, a healthy lifestyle helps chronic diseases. These are all the goals you should strive to achieve to improve your overall health: blood pressure less than 130/85 BMI of 21-29.99 or a waist circumference that is 1/2 of your height fasting blood sugar less than 107 (if you are diabetic, aim for your A1c to be below 6.4% LDL cholesterol below 130 avoid smoking manage your stress see your primary care doctor for preventive exams get your immunizations Provider Impressions Patient seen today for OA--more active Will change NSAID To assess diagnosis and determine treatment plan, the following occurred today Lab and xray tests were reviewed--[facility] This visit has a moderate risk for morbidity as prescription drug are being prescribed and monitored Gaps in care reviewed and pt is due for colon cancer screen Chief Complaint here for follow up arthritis Adult Risk Screening Tobacco Screening: JAME does not use tobacco. History of Present Illness Interval Events: reports increased pain and meds not working. Last week, hands swelled. Symptoms: Associated symptoms include joint swelling and joint stiffness. Activities: no limitations. Medications: the patient is adherent with his medication regimen. He denies medication side effects. Review of Systems Constitutional: no fever and not feeling tired. Respiratory: no cough and no shortness of breath during exertion. Musculoskeletal: arthralgias and joint stiffness. All other systems have been reviewed and are negative for complaint. 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.98) (M89.49) Raynaud's disease (443.0) (I73.00) Added by Problem List Migration; 2013-05-13 Past Medical History Problems History of Ankle injury (959.7) (S99.919A) Resolved Date: 05 Oct 2016 History of BMI over 35 Resolved Date: 13 Dec 2018 History of Diverticulitis (562.11) (K57.92) History of Foot injury (959.7) (S99.929A) Resolved Date: 05 Oct 2016 History of hyperlipidemia (V12.29) (Z86.39) Resolved Date: 27 Sep 2013 History of pharyngitis (V12.69) (Z87.09) Resolved Date: 17 Jun 2017 History of Left ankle sprain (845.00) (S93.402A) Resolved Date: 05 Oct 2016 History of Sprain of foot, left (845.10) (S93.602A) Resolved Date: 05 Oct 2016 Surgical History Problems History of Cholecystectomy History of Knee arthroscopy History of Partial Colectomy Family History Other No pertinent family history Social History Problems Never a smoker Never used tobacco (V49.89) (Z78.9) Allergies Medication Lyrica CAPS Recorded By: Rosie Guerrero; 09/27/2013 7:11:25 PM Current Meds Medication NameInstruction amLODIPine Besylate 5 MG Oral TabletTAKE 1 TABLET DAILY. Aspirin 81 MG Oral Tablet Delayed Release buPROPion HCl ER (SR) 100 MG Oral Tablet Extended Release 12 HourTAKE 1 TABLET BY MOUTH ONCE DAILY FOR 5 DAYS THEN INCREASE TO 1 TABLE Diclofenac Sodium 1 % GEL DULoxetine HCl - 30 MG Oral Capsule Delayed Release Particles Etodolac 400 MG Oral TabletTAKE ONE TABLET BY MOUTH TWICE DAILY NEEDED Glimepiride 4 MG Oral TabletTAKE 1 TABLET DAILY DIRECTED. Magnesium 250 MG Oral TabletTAKE 1 TABLET DAILY. Meclizine HCl - 12.5 MG Oral TabletTAKE 1 TABLET Twice daily PRN metFORMIN HCl - 1000 MG Oral TabletTAKE 1 TABLET EVERY 12 HOURS DAILY. Mirtazapine 15 MG Oral TabletTAKE 1/2 OF A TABLET BY MOUTH EVERY NIGHT Multivitamin Men 50+ Oral TabletTAKE 1 TABLET DAILY. SUMAtriptan Succinate 50 MG Oral Tablettake one tablet by mouth for migraine relief, may repeat every 2 hours, max 200mg per day, due for follow up appointment Vitamin D3 125 MCG (5000 UT) Oral CapsuleTAKE DIRECTED. Immunizations 12 Influenza [id number] 2018 Vitals Vital Signs Recorded: 25Jun2020 03:17PM Ppawxptqnvr00.4 F Heart Rate70 Systo (more content not included)... [facility] MEKA Telephone (SPPRAD) JAME WALLACE ( ) 1965 M Date Time Provider Department 10/[facility]PP[facility] During your visit today, we recorded the following information about you: Nikkie Carvajal APRN.CNP 10/08/2019 1:47 PM Signed Received [employer] message re: need for pre-operative/pre-procedura l COVID19 testing. Details as below: - Reason for Test: Pre-Op - Attending Surgeon: Dr. Butch Salgado - Date of Surgery/Procedure: 10/22/2019 Right ORIF 5th metatarsal - COVID test ? to be completed 2 ? 3 days prior to surgery Order placed for COVID19 testing. Jame can anticipate hearing from our scheduling team to coordinate a testing appointment. Drs. Salgado and Calos (Jame's PCP) will be cc'd to receive Jame's results. Kindly, Nikkie Carvajal APRN.CNP Allergies As of Date: 10/08/2019 (No Known Allergies) Date Reviewed: 08/11/2019 Reviewed by: [facility] - Fully Assessed Reason for Visit: Covid-19 Hotline [8424] Primary Visit Diagnosis:Preoperative testing [Z01.818] Order(s):2019 CORONAVIRUS [SQCOVID] Order #: [id number] FUTURE Prescriptions as of 10/08/2019 Sig: ETODOLAC 400 MG TABLET Take 400 mg by mouth twice da* METOPROLOL TARTRATE 37.5 MG T* Take 1 tablet by mouth twice * ONE-A-DAY MEN'S ORAL Take 1 tablet by mouth once d* VITAMIN D3 ORAL Take 1,000 Units by mouth onc* MECLIZINE 12.5 MG TABLET Take 12.5 mg by mouth as need* DULOXETINE 20 MG CAPSULE,MARTHA* Take 60 mg by mouth daily at * BUPROPION HCL 100 MG TABLET Take 100 mg by mouth twice da* MIRTAZAPINE 15 MG TABLET Take 7.5 mg by mouth daily at* ASPIR-81 ORAL Take 1 tablet by mouth once d* GLIMEPIRIDE 4 MG TABLET Take 4 mg by mouth daily with* METFORMIN 1,000 MG TABLET Take 1,000 mg by mouth twice * AMLODIPINE 5 MG TABLET Take 5 mg by mouth once daily* GABAPENTIN 100 MG CAPSULE Take 400 mg by mouth three ti* TRAMADOL 50 MG TABLET Take 1 tablet by mouth every * Problem List As Of Date 10/08/2019 Noted Resolved Diverticulitis of colon (without mention of hem* 01/19/2011 Colonic polyp [D12.6] More... Type 2 diabetes mellitus [E11.9] 01/19/2009 More... Diabetic neuropathy, painful [E11.40] 01/19/2011 More... Hyperlipidemia LDL goal < 100 [E78.5] 01/19/2011 Gout [M10.9] 02/11/2013 More... Subcutaneous mass [R22.9] 04/23/2013 05/15/2013 Post-operative state [Z98.890] 05/15/2013 08/11/2019 Hypertension [I10] 04/28/2014 More... Osteoarthritis of spine with radiculopathy, lum*07/23/2015 Degeneration of lumbar intervertebral disc [M51*10/08/2015 Radiculopathy, lumbar region [M54.16] 10/08/2015 Stenosis, spinal, lumbar [M48.061] 10/08/2015 Chronic bilateral low back pain with right-side*10/08/2015 09/05/2016 Chronic bilateral low back pain with left-sided*10/13/2016 Closed physeal fracture of fifth metatarsal bon*08/11/2019 Diverticulitis [K57.92] More... Rheumatoid arthritis of hand (HCC) [M06.9] More... Morbidly obese (HCC) [E66.01] More... Encounter Status:Closed by NIKKIE CARVAJAL on 10/08/19 [facility] MRI UPPER EXTREMITY RIGHT W JT WO CONTRASTon 01-24-2019 Patient Name: JAME SHELTON ---MRI--- Exam Date/Time 01/24/2019 07:42:41 EDT Exam MRI Up Ext Joint w/o Contrast Right Ordering Physician MANDO DESIR MICHELLE Accession Number [id number] CPT4 Codes 01401 () Reason For Exam right pain Report Exam Type: MRI Up Ext Joint w/o Contrast Right Exam Date and Time: 01/24/2019 7:42 AM EDT Demographics: Gender: Male; Age: 53 years Indication: Pain, decreased range of motion; Comparison: None available TECHNIQUE: MRI of the right shoulder was performed using a standard non-contrast protocol in three planes. The study is mildly motion degraded. FINDINGS: GLENOHUMERAL JOINT and OSSEOUS STRUCTURES: Alignment is anatomic. No joint effusion. No acute fracture, Hill-Sachs deformity or osseous Bankart defect. No deep/focal cartilage defects. Subcortical cystic changes greater tuberosity is compatible with impingement. LABRUM: No evidence of labral tear by non-arthrogram MRI. ROTATOR CUFF: High-grade partial-thickness undersurface tear of the anterior leading edge of the supraspinatus measuring 8 mm in AP dimension. This extends into the posterior fibers of the supraspinatus an additional 6 mm as a low-grade undersurface tear. Moderate underlying tendinosis. Mild infraspinatus tendinosis without tear. Mild subscapularis tendinosis without tear. BICEPS TENDON and ROTATOR INTERVAL: Long head biceps tendon: Normally positioned within the intertubercular groove. Mild tendinosis No tenosynovitis. Rotator interval: Fat in the rotator interval is preserved. MUSCLE BULK: Rotator cuff musculature is normal in bulk and signal without edema or atrophy. ACROMION and ACROMIOCLAVICULAR JOINT: Moderate acromioclavicular joint osteoarthritis. Small subacromial spur. No os acromiale. SUBACROMIAL-SUBDELTOID BURSA: Mild bursitis. OTHER: No mass effect in the spinoglenoid notch, suprascapular notch or quadrilateral space. IMPRESSION: 1. High-grade partial-thickness undersurface tear of the anterior leading edge of the supraspinatus extending into the posterior fibers of the supraspinatus as a low-grade undersurface tear. 2. Moderate supraspinatus and mild infraspinatus and subscapularis tendinosis. 3. Small subacromial spur with mild subacromial/subdeltoid bursitis. Report Dictated on --- Final --- Dictated: 01/24/2019 7:58 am Dictating Physician: MD SANDOVAL NEIL Signed Date and Time: 01/24/2019 8:02 am Signed by: MD SANDOVAL NEIL Transcribed Date and Time: 01/24/2019 7:58 [facility], [place] In[facility] - 01/24/2019 8:04 AM EDT Patient Name: JAME WALLACE ---MRI--- Exam Date/Time 01/24/2019 07:42:41 EDT Exam MRI Up Ext Joint w/o Contrast Right Ordering Physician MANDO DESIR MICHELLE Accession Number [id number] CPT4 Codes 26534 () Reason For Exam right pain Report Exam Type: MRI Up Ext Joint w/o Contrast Right Exam Date and Time: 01/24/2019 7:42 AM EDT Demographics: Gender: Male; Age: 53 years Indication: Pain, decreased range of motion; Comparison: None available TECHNIQUE: MRI of the right shoulder was performed using a standard non-contrast protocol in three planes. The study is mildly motion degraded. FINDINGS: GLENOHUMERAL JOINT and OSSEOUS STRUCTURES: Alignment is anatomic. No joint effusion. No acute fracture, Hill-Sachs deformity or osseous Bankart defect. No deep/focal cartilage defects. Subcortical cystic changes greater tuberosity is compatible with impingement. LABRUM: No evidence of labral tear by non-arthrogram MRI. ROTATOR CUFF: High-grade partial-thickness undersurface tear of the anterior leading edge of the supraspinatus measuring 8 mm in AP dimension. This extends into the posterior fibers of the supraspinatus an additional 6 mm as a low-grade undersurface tear. Moderate underlying tendinosis. Mild infraspinatus tendinosis without tear. Mild subscapularis tendinosis without tear. BICEPS TENDON and ROTATOR INTERVAL: Long head biceps tendon: Normally positioned within the intertubercular groove. Mild tendinosis No tenosynovitis. Rotator interval: Fat in the rotator interval is preserved. MUSCLE BULK: Rotator cuff musculature is normal in bulk and signal without edema or atrophy. ACROMION and ACROMIOCLAVICULAR JOINT: Moderate acromioclavicular joint osteoarthritis. Small subacromial spur. No os acromiale. SUBACROMIAL-SUBDELTOID BURSA: Mild bursitis. OTHER: No mass effect in the spinoglenoid notch, suprascapular notch or quadrilateral space. IMPRESSION: 1. High-grade partial-thickness undersurface tear of the anterior leading edge of the supraspinatus extending into the posterior fibers of the supraspinatus as a low-grade undersurface tear. 2. Moderate supraspinatus and mild infraspinatus and subscapularis tendinosis. 3. Small subacromial spur with mild subacromial/subdeltoid bursitis. Report Dictated on --- Final --- Dictated: 01/24/2019 7:58 am Dictating Physician: MD SANDOVAL NEIL Signed Date and Time: 01/24/2019 8:02 am Signed by: MD SANDOVAL NEIL Transcribed Date and Time: 01/24/2019 7:[address] [place] [address], [place] MRI Up Ext Joint w/o Ho Morel 01-24-2019 MRI Up Ext Joint w/o Contrast Right Patient Name: JAME WALLACE MRI Exam Date/Time 01/24/2019 07:42:41 EDT Exam MRI Up Ext Joint w/o Contrast Right Ordering Physician MANDO DESIR MICHELLE Accession Number [id number] CPT4 Codes 37415 () Reason For Exam right pain Report Exam Type: MRI Up Ext Joint w/o Contrast Right Exam Date and Time: 01/24/2019 7:42 AM EDT Demographics: Gender: Male; Age: 53 years Indication: Pain, decreased range of motion; Comparison: None available TECHNIQUE: MRI of the right shoulder was performed using a standard non-contrast protocol in three planes. The study is mildly motion degraded. FINDINGS: GLENOHUMERAL JOINT and OSSEOUS STRUCTURES: Alignment is anatomic. No joint effusion. No acute fracture, Hill-Sachs deformity or osseous Bankart defect. No deep/focal cartilage defects. Subcortical cystic changes greater tuberosity is compatible with impingement. LABRUM: No evidence of labral tear by non-arthrogram MRI. ROTATOR CUFF: High-grade partial-thickness undersurface tear of the anterior leading edge of the supraspinatus measuring 8 mm in AP dimension. This extends into the posterior fibers of the supraspinatus an additional 6 mm as a low-grade undersurface tear. Moderate underlying tendinosis. Mild infraspinatus tendinosis without tear. Mild subscapularis tendinosis without tear. BICEPS TENDON and ROTATOR INTERVAL: Long head biceps tendon: Normally positioned within the intertubercular groove. Mild tendinosis No tenosynovitis. Rotator interval: Fat in the rotator interval is preserved. MUSCLE BULK: Rotator cuff musculature is normal in bulk and signal without edema or atrophy. ACROMION and ACROMIOCLAVICULAR JOINT: Moderate acromioclavicular joint osteoarthritis. Small subacromial spur. No os acromiale. SUBACROMIAL-SUBDELTOID BURSA: Mild bursitis. OTHER: No mass effect in the spinoglenoid notch, suprascapular notch or quadrilateral space. IMPRESSION: 1. High-grade partial-thickness undersurface tear of the anterior leading edge of the supraspinatus extending into the posterior fibers of the supraspinatus as a low-grade undersurface tear. 2. Moderate supraspinatus and mild infraspinatus and subscapularis tendinosis. 3. Small subacromial spur with mild subacromial/subdeltoid bursitis. Report Dictated on Final Dictated: 01/24/2019 7:58 am Dictating Physician: MD SANDOVAL NEIL Signed Date and Time: 01/24/2019 8:02 am Signed by: MD SANDOVAL NEIL Transcribed Date and Time: 01/24/2019 7:[address] [facility] [address] HEAD W/O CONTRASTon 05-27 Protein mass conc Performed at [facility] APPROVED BY: RALPH BROUSSARD MD HISTORY: Headache, dizziness, blurred vision, left arm weakness. TECHNIQUE: Routine CT head without contrast. CT Dose-Length Product (DLP): 883 mGy*cm. CT Dose Reduction Employed:Yes. Radiation Shielding Employed: N/A. COMPARISON: None. RESULT: The ramos white distinction is preserved and there is no CT evidence for acute infarction, for which MRI is more sensitive. There is no CT evidence for intracranial hemorrhage. There is no extra-axial collection, mass effect, or midline shift. The ventricles, sulci, and cisterns are age appropriate. The brain density and morphology are normal. The extracranial soft tissues and osseous structures appear normal. IMPRESSION: NORMAL HEAD CT Normal [facility] Comprehensive Panelon 2017 Albumin mass conc 3.3 g/dL Low 3.4-5.0 [facility] Comment on above: Performed By: #### L P14 ####[place] [address] ALP enzyme act/vol 96 U/L Normal 46-116 [facility] Comment on above: Performed By: #### L P14 ####[place] [address] ALT-SGPT Blood 29 U/L Normal 14-63 [facility] Comment on above: Performed By: #### L P14 ####[address] [address] Anion gap 3 molar conc 10 mmol/L Normal 8-20 [facility] Comment on above: Performed By: #### L P14 ####[address] [address] AST-SGOT Blood 20 U/L Normal 15-37 [facility] Comment on above: Performed By: #### L P14 ####[address] [address] Bilirubin Ql (U) 0.2 mg/dL Normal 0.2-1.0 [facility] Comment on above: Performed By: #### L P14 ####[address] [address] Calcium mass conc 9.3 mg/dL Normal 8.5-10.1 [facility] Comment on above: Performed By: #### L P14 ####[address] [address] Chloride molar conc 103 mmol/L Normal 98-107 [facility] Comment on above: Performed By: #### L P14 ####[facility] [place], [place] [address] CO2 molar conc 30 mmol/L Normal 21-32 [facility] Comment on above: Performed By: #### L P14 ####[facility] [place], [place] [address] Creatinine mass conc 1.26 mg/dL High 0.67-1.17 [facility] Comment on above: Performed By: #### L P14 ####[facility] [place], [place] [address] Glucose mass conc 160 mg/dL High 70-99 [facility] Comment on above: Performed By: #### L P14 ####[address] [address] Potassium molar conc 4.2 mmol/L Normal 3.5-5.1 [facility] Comment on above: Performed By: #### L P14 ####[address] [address] Protein mass conc 7.0 g/dL Normal 6.4-8.2 [facility] Comment on above: Performed By: #### L P14 ####[address] [address] Sodium molar conc 139 mmol/L Normal 136-145 [facility] Comment on above: Performed By: #### L P14 ####[address] [address] Urea nitrogen mass conc (Bld) 19 mg/dL Normal 7-25 [facility] Comment on above: Performed By: #### L P14 ####[address] [address] Urea nitrogen/Creatinine mass ratio 15 mg/mg Normal 10-20 [facility] Comment on above: Performed By: #### L P14 ####[address] [address] Hemogram/Diffon 05-27-2018 Abs. Baso 0.07 thou/cmm Normal 0.00-0.08 [facility] Comment on above: Performed By: #### L CBCD ####[address] [address] Abs. Mcclain 1.33 thou/cmm High 0.20-1.00 [facility] Comment on above: Performed By: #### L CBCD ####[address] [address] Abs. Neut (ANC) 6.83 thou/cmm High 3.00-5.67 [facility] Comment on above: Result Comment: PEDRO ECTED: Previous result = 6.80, verified at 21:23 on 05/27/18. Performed By: #### L CBCD ####[address] [address] Basophils/100 WBC Auto (Bld) 0.6 % Normal [facility] Comment on above: Performed By: #### L CBCD ####[place] [address] Eosinophils Auto #/vol (Bld) 0.21 thou/cmm Normal 0.00-0.41 [facility] Comment on above: Performed By: #### L CBCD ####[address] [address] Eosinophils/100 WBC Auto (Bld) 1.9 % Normal [facility] Comment on above: Performed By: #### L CBCD ####[address] [address] Erythrocyte distribution width Auto Ratio (RBC) 13.9 % Normal 11.5-15.9 [facility] Comment on above: Performed By: #### L CBCD ####[address] [address] Hematocrit Auto Volume Fraction (Bld) 43.7 % Normal 42.0-52.0 [facility] Comment on above: Performed By: #### L CBCD ####[address] [address] Hemoglobin mass conc (Bld) 14.3 g/dL Normal 14.0-18.0 [facility] Comment on above: Performed By: #### L CBCD ####[address] [address] Lymphocytes Auto #/vol (Bld) 2.86 thou/cmm Normal 1.50-3.65 [facility] Comment on above: Performed By: #### L CBCD ####[address] [address] Lymphocytes/100 WBC Auto (Bld) 25.3 % Normal [facility] Comment on above: Performed By: #### L CBCD ####[address] [address] MCH Auto Entitic mass (RBC) 30.8 pg Normal 27.0-31.0 [facility] Comment on above: Performed By: #### L CBCD ####[address] [address] MCHC Auto mass conc (RBC) 32.7 % Normal 32.0-36.0 [facility] Comment on above: Performed By: #### L CBCD ####[address] [address] MCV Auto Entitic volume (RBC) 94.0 fL Normal 80.0-94.0 [facility] Comment on above: Performed By: #### L CBCD ####[address] [address] Monocytes/100 WBC Auto (Bld) 11.8 % Normal [facility] Comment on above: Performed By: #### L CBCD ####[address] [address] Platelet mean volume Auto Entitic volume (Bld) 11.2 fL High 7.1-10.5 [facility] Comment on above: Performed By: #### L CBCD ####[address] [address] Platelets Auto #/vol (Bld) 262 thou/cmm Normal 150-400 [facility] Comment on above: Performed By: #### L CBCD ####[address] [address] RBC Auto #/vol (Bld) 4.65 mil/cmm Normal 4.60-6.20 [facility] Comment on above: Performed By: #### L CBCD ####[facility] [place], [place] [address] Seg Neutrophil 60.4 % Normal [facility] Comment on above: Performed By: #### L CBCD ####[facility] [place], [place] [address] WBC Auto #/vol (Bld) 11.3 thou/cmm High 4.8-10.8 [facility] Comment on above: Performed By: #### L CBCD ####[address] [address] MDRD eGFRon 05-27-2018 GFR/1.73 sq M predicted among non-blacks MDRD vol rate/area (S/P/Bld) mL/min/{1.73_m2} Normal >60mL/min/ 1.73m2 [facility] Comment on above: Result Comment: If t he patient is , multiply the result by 1.210. Performed By: #### L GFR ####[address] [address] LUMBOSACRAL SPINE MIN 4 VIEW Son 04-26-2018 LUMBOSACRAL SPINE MIN 4 VIEWS Performed at [facility] APPROVED BY: ROYER TOWNSEND MD LUMBAR SPINE CLINICAL INDICATION: Low back pain. COMPARISON: Lumbar spine 08/13/2015.. MRI lumbar spine 08/07/2015 FINDINGS:Frontal, lateral, coned-down lumbosacral lateral and bilateral oblique views of the lumbar spine. Transitional lumbosacral anatomy with a partially lumbarized S1 segment noted. Lumbar scoliosis convex to the left, apex at L2-3 noted. There is severe degenerative disc disease at L2-3 with settling towards the right aspect of the interspace manifest by disc height loss, endplate sclerosis and marginal spurring. Vacuum phenomenon is present at this level. There is degenerative disc disease at L3-4 through L5-S1 with disc height loss and spurring. No compression deformity or evidence of a fracture. Sacroiliac joints are maintained. There are surgical clips in the upper abdomen. IMPRESSION:1. Degenerative lumbar scoliosis convex to the left. Degenerative disc disease is most severe at L2-3 with settling towards the right aspect of the interspace. 2. Degenerative disc disease also involves L3-4 through L5-S1. 3. Transitional lumbosacral anatomy with partial lumbarization of the S1 segment. For the purposes of this report, L4-5 is considered the level of the iliac crest. Normal [facility] KNEE COMP 4 OR MORE VIEWS UN ILATERALon 12-17-2017 Protein mass conc Performed at [facility] APPROVED BY: Mele Clayton MD EXAM TITLE: RIGHT KNEE COMP 4 OR MORE VIEWS UNILATERAL, KNEES BOTH STANDING AP DATE: 12/17/2017 14:38 (accession [id number]), 12/17/2017 14:39 (accession [id number]) COMPARISON: None. CLINICAL INDICATION/HISTORY: Status post fall onto right knee. Right knee pain and swelling TECHNIQUE: AP, lateral and both oblique views of the knee are presented along with an AP standing view of both knees. FINDINGS:The AP standing view demonstrates normal bilateral alignment. Very slight narrowing at each medial compartment. No acute bony abnormality. Views of the right knee demonstrate no acute bony injury. There is no fracture or dislocation. No bone destruction or arthritic change. There is no effusion. IMPRESSION: No acute abnormality. Very slight bilateral medial compartmental narrowing. Normal [facility] KNEES BOTH STANDING APon Protein mass conc Performed at [facility] APPROVED BY: Mele Clayton MD EXAM TITLE: RIGHT KNEE COMP 4 OR MORE VIEWS UNILATERAL, KNEES BOTH STANDING AP DATE: 12/17/2017 14:38 (accession [id number]), 12/17/2017 14:39 (accession [id number]) COMPARISON: None. CLINICAL INDICATION/HISTORY: Status post fall onto right knee. Right knee pain and swelling TECHNIQUE: AP, lateral and both oblique views of the knee are presented along with an AP standing view of both knees. FINDINGS:The AP standing view demonstrates normal bilateral alignment. Very slight narrowing at each medial compartment. No acute bony abnormality. Views of the right knee demonstrate no acute bony injury. There is no fracture or dislocation. No bone destruction or arthritic change. There is no effusion. IMPRESSION: No acute abnormality. Very slight bilateral medial compartmental narrowing. Normal [facility] Vital Signs Date Time Vital Sign Value Performing Clinician Facility 10-08-2025 11:30-0400 Body temperature 97 [degF] [employer] SCRIBING MACHINE OPERATOR-C Work Phone: [facility] 03-11-2025 11:30-0400 Diastolic blood pressure 72 mm[Hg] [employer] SCRIBING MACHINE OPERATOR-C Work Phone: [facility] 03-11-2025 11:30-0400 Heart rate 65 /min Griffin Live SCRIBING MACHINE OPERATOR-C Work Phone: [facility] 03-11-2025 11:30-0400 Respiratory rate 16 /min Griffin Live SCRIBING MACHINE OPERATOR-C Work Phone: [facility] 03-11-2025 11:30-0400 SaO2% (BldA) [Mass fraction] 93 % Grfifin Live SCRIBING MACHINE OPERATOR-C Work Phone: [facility] 03-11-2025 11:30-0400 Systolic blood pressure 116 mm[Hg] Griffin Live SCRIBING MACHINE OPERATOR-C Work Phone: [facility] 03-11-2025 11:15-0400 Inhaled oxygen flow rate 2 L/min Griffin Live SCRIBING MACHINE OPERATOR-C Work Phone: [facility] 03-11-2025 08:05-0400 Body height 182.88 cm Griffin Live SCRIBING MACHINE OPERATOR-C Work Phone: [facility] 03-11-2025 08:05-0400 Body mass index (BMI) [Ratio] 49.3 kg/m2 Griffin Live SCRIBING MACHINE OPERATOR-C Work Phone: [facility] 03-11-2025 08:05-0400 Body weight 165 kg Griffin Live SCRIBING MACHINE OPERATOR-C Work Phone: [facility] 11-27-2024 16:03-0400 Body mass index (BMI) [Ratio] 50 kg/m2 Griffin Live SCRIBING MACHINE OPERATOR-C Work Phone: [facility] 11-27-2024 16:03-0400 Body temperature 97.3 [degF] Griffin Live SCRIBING MACHINE OPERATOR-C Work Phone: [facility] 11-27-2024 16:03-0400 Body weight 167.37 kg Griffni Live SCRIBING MACHINE OPERATOR-C Work Phone: [facility] 11-27-2024 16:03-0400 Diastolic blood pressure 70 mm[Hg] Griffin Live SCRIBING MACHINE OPERATOR-C Work Phone: [facility] 11-27-2024 16:03-0400 Heart rate 89 /min Griffin Live SCRIBING MACHINE OPERATOR-C Work Phone: [facility] 11-27-2024 16:03-0400 Respiratory rate 18 /min Griffin Live SCRIBING MACHINE OPERATOR-C Work Phone: [facility] 11-27-2024 16:03-0400 SaO2% (BldA) [Mass fraction] 98 % Griffin Live SCRIBING MACHINE OPERATOR-C Work Phone: [facility] 11-27-2024 16:03-0400 Systolic blood pressure 138 mm[Hg] Griffin Live SCRIBING MACHINE OPERATOR-C Work Phone: [facility] 10-23-2024 17:52-0400 Body height 182.88 cm Griffin Live SCRIBING MACHINE OPERATOR-C Work Phone: [facility] 10-23-2024 17:52-0400 Body mass index (BMI) [Ratio] 50.1 kg/m2 Griffin Live SCRIBING MACHINE OPERATOR-C Work Phone: [facility] 10-23-2024 17:52-0400 Body temperature 97.9 [degF] Griffin Live SCRIBING MACHINE OPERATOR-C Work Phone: [facility] 10-23-2024 17:52-0400 Body weight 167.82 kg Griffin Live SCRIBING MACHINE OPERATOR-C Work Phone: [facility] 10-23-2024 17:52-0400 Diastolic blood pressure 70 mm[Hg] Griffin Live SCRIBING MACHINE OPERATOR-C Work Phone: [facility] 10-23-2024 17:52-0400 Heart rate 67 /min Griffin Live SCRIBING MACHINE OPERATOR-C Work Phone: [facility] 10-23-2024 17:52-0400 Respiratory rate 18 /min Griffin Live SCRIBING MACHINE OPERATOR-C Work Phone: [facility] 10-23-2024 17:52-0400 SaO2% (BldA) [Mass fraction] 95 % Griffin Live SCRIBING MACHINE OPERATOR-C Work Phone: [facility] 10-23-2024 17:52-0400 Systolic blood pressure 140 mm[Hg] Griffin Live SCRIBING MACHINE OPERATOR-C Work Phone: [facility] 08-22-2024 17:57-0400 Body height 182.88 cm Griffin Live SCRIBING MACHINE OPERATOR-C Work Phone: [facility] 08-22-2024 17:57-0400 Body mass index (BMI) [Ratio] 50.3 kg/m2 Griffin Live SCRIBING MACHINE OPERATOR-C Work Phone: [facility] 08-22-2024 17:57-0400 Body temperature 97.5 [degF] Griffin Live SCRIBING MACHINE OPERATOR-C Work Phone: [facility] 08-22-2024 17:57-0400 Body weight 168.28 kg Griffin Live SCRIBING MACHINE OPERATOR-C Work Phone: [facility] 08-22-2024 17:57-0400 Diastolic blood pressure 60 mm[Hg] Griffin Live SCRIBING MACHINE OPERATOR-C Work Phone: [facility] 08-22-2024 17:57-0400 Heart rate 86 /min Griffin Live SCRIBING MACHINE OPERATOR-C Work Phone: [facility] 08-22-2024 17:57-0400 Respiratory rate 18 /min Griffin Live SCRIBING MACHINE OPERATOR-C Work Phone: [facility] 08-22-2024 17:57-0400 SaO2% (BldA) [Mass fraction] 96 % Griffin Live SCRIBING MACHINE OPERATOR-C Work Phone: [facility] 08-22-2024 17:57-0400 Systolic blood pressure 120 mm[Hg] Griffin COLÓNC Work Phone: [facility] 07-27-2023 18:27-0500 Body height 182.88 cm [facility] 07-27-2023 18:27-0500 Body mass index (BMI) [Ratio] 49.5 kg/m2 [facility] 07-27-2023 18:27-0500 Body temperature 97.5 [degF] [facility] 07-27-2023 18:27-0500 Body weight 165.56 kg [facility] 07-27-2023 18:27-0500 Diastolic blood pressure 70 mm[Hg] [facility] 07-27-2023 18:27-0500 Heart rate 74 /min [facility] 07-27-2023 18:27-0500 Respiratory rate 18 /min [facility] 07-27-2023 18:27-0500 SaO2% (BldA) [Mass fraction] 95 % [facility] 07-27-2023 18:27-0500 Systolic blood pressure 140 mm[Hg] [facility] 09-06-2022 15:30-0400 Body height 182.88 cm [facility] 09-06-2022 15:30-0400 Body mass index (BMI) [Ratio] 46.7 kg/m2 [facility] 09-06-2022 15:30-0400 Body temperature 97 [degF] [facility] 09-06-2022 15:30-0400 Body weight 156.48 kg [facility] 09-06-2022 15:30-0400 Diastolic blood pressure 70 mm[Hg] [facility] 09-06-2022 15:30-0400 Heart rate 81 /min [facility] 09-06-2022 15:30-0400 Respiratory rate 18 /min [facility] 09-06-2022 15:30-0400 SaO2% (BldA) [Mass fraction] 96 % [facility] 09-06-2022 15:30-0400 Systolic blood pressure 140 mm[Hg] [facility] 08-18-2022 16:15-0400 Body mass index (BMI) [Ratio] 45.1 kg/m2 [facility] 08-18-2022 16:15-0400 Body temperature 96.8 [degF] [facility] 08-18-2022 16:15-0400 Body weight 151.04 kg [facility] 08-18-2022 16:15-0400 Diastolic blood pressure 70 mm[Hg] [facility] 08-18-2022 16:15-0400 Heart rate 83 /min [facility] 08-18-2022 16:15-0400 Respiratory rate 18 /min [facility] 08-18-2022 16:15-0400 SaO2% (BldA) [Mass fraction] 95 % [facility] 08-18-2022 16:15-0400 Systolic blood pressure 132 mm[Hg] [facility] 05-25-2022 17:33-0500 Body mass index (BMI) [Ratio] 45.3 kg/m2 [facility] 05-25-2022 17:33-0500 Body temperature 97.7 [degF] [facility] 05-25-2022 17:33-0500 Body weight 151.49 kg [facility] 05-25-2022 17:33-0500 Diastolic blood pressure 80 mm[Hg] [facility] 05-25-2022 17:33-0500 Heart rate 79 /min [facility] 05-25-2022 17:33-0500 Respiratory rate 18 /min [facility] 05-25-2022 17:33-0500 SaO2% (BldA) [Mass fraction] 95 % [facility] 05-25-2022 17:33-0500 Systolic blood pressure 130 mm[Hg] [facility] 12-23-2021 17:00-0400 Body height 182.88 cm [facility] Work Phone: 12-23-2021 17:00-0400 Body mass index (BMI) [Ratio] 45.1 kg/m2 [facility] Work Phone: 12-23-2021 17:00-0400 Body temperature 98.1 [degF] [facility] Work Phone: 12-23-2021 17:00-0400 Body weight 151.04 kg [facility] Work Phone: 12-23-2021 17:00-0400 Diastolic blood pressure 70 mm[Hg] [facility] Work Phone: 12-23-2021 17:00-0400 Heart rate 78 /min [facility] Work Phone: 12-23-2021 17:00-0400 Respiratory rate 18 /min [facility] Work Phone: 12-23-2021 17:00-0400 SaO2% (BldA) [Mass fraction] 96 % [facility] Work Phone: 12-23-2021 17:00-0400 Systolic blood pressure 132 mm[Hg] [facility] Work Phone: 11-07-2021 18:22-0400 Body mass index (BMI) [Ratio] 45.8 kg/m2 [facility] Work Phone: 11-07-2021 18:22-0400 Body temperature 97.7 [degF] [facility] Work Phone: 11-07-2021 18:22-0400 Body weight 153.31 kg [facility] Work Phone: 11-07-2021 18:22-0400 Diastolic blood pressure 70 mm[Hg] [facility] Work Phone: 11-07-2021 18:22-0400 Heart rate 106 /min [facility] Work Phone: 11-07-2021 18:22-0400 Respiratory rate 18 /min [facility] Work Phone: 11-07-2021 18:22-0400 SaO2% (BldA) [Mass fraction] 94 % [facility] Work Phone: 11-07-2021 18:22-0400 Systolic blood pressure 160 mm[Hg] [facility] Work Phone: 11-07-2021 18:22-0400 Body height 182.88 cm [facility] Work Phone: 11-07-2021 18:22-0400 Body mass index (BMI) [Ratio] 45.8 kg/m2 [facility] Work Phone: 11-07-2021 18:22-0400 Body temperature 97.7 [degF] [facility] Work Phone: 11-07-2021 18:22-0400 Body weight 153.31 kg [facility] Work Phone: 11-07-2021 18:22-0400 Diastolic blood pressure 70 mm[Hg] [facility] Work Phone: 11-07-2021 18:22-0400 Heart rate 106 /min [facility] Work Phone: 11-07-2021 18:22-0400 Respiratory rate 18 /min [facility] Work Phone: 11-07-2021 18:22-0400 SaO2% (BldA) [Mass fraction] 94 % [facility] Work Phone: 11-07-2021 18:22-0400 Systolic blood pressure 160 mm[Hg] [facility] Work Phone: 10-03-2021 15:45-0400 Body temperature 98.6 [degF] Reji Chatal DIRECTOR OF LAND ACQUISITION.LINEN CONTROLLER Work Phone: [facility] 10-03-2021 15:45-0400 Body weight 152.63 kg Reji Chatal DIRECTOR OF LAND ACQUISITION.LINEN CONTROLLER Work Phone: [facility] 10-03-2021 15:45-0400 Diastolic blood pressure 92 mm[Hg] Reji Chatal DIRECTOR OF LAND ACQUISITION.LINEN CONTROLLER Work Phone: [facility] 10-03-2021 15:45-0400 Heart rate 83 /min Reji Chatal DIRECTOR OF LAND ACQUISITION.LINEN CONTROLLER Work Phone: [facility] 10-03-2021 15:45-0400 Respiratory rate 18 /min Reji Chatal DIRECTOR OF LAND ACQUISITION.LINEN CONTROLLER Work Phone: [facility] 10-03-2021 15:45-0400 SaO2% (BldA) [Mass fraction] 96 % Reji Chatal DIRECTOR OF LAND ACQUISITION.LINEN CONTROLLER Work Phone: [facility] 10-03-2021 15:45-0400 Systolic blood pressure 134 mm[Hg] Reji Chatal DIRECTOR OF LAND ACQUISITION.[facility] Work Phone: [facility] 07-28-2021 18:10-0500 Body mass index (BMI) [Ratio] 46.2 kg/m2 [facility] Work Phone: 07-28-2021 18:10-0500 Body temperature 97.7 [degF] [facility] Work Phone: 07-28-2021 18:10-0500 Body weight 154.67 kg [facility] Work Phone: 07-28-2021 18:10-0500 Diastolic blood pressure 60 mm[Hg] [facility] Work Phone: 07-28-2021 18:10-0500 Heart rate 76 /min [facility] Work Phone: 07-28-2021 18:10-0500 Respiratory rate 18 /min [facility] Work Phone: 07-28-2021 18:10-0500 SaO2% (BldA) [Mass fraction] 95 % [facility] Work Phone: 07-28-2021 18:10-0500 Systolic blood pressure 128 mm[Hg] [facility] Work Phone: 12-24-2020 09:03-0400 Body mass index (BMI) [Ratio] 45.71 kg/m2 Griffin Live Work Phone: [facility] Work Phone: 12-24-2020 09:03-0400 Body surface area Derived from formula 2.78 m2 Griffin Tricia Live Work Phone: [facility] Work Phone: 12-24-2020 09:03-0400 Body temperature 98.6 [degF] Griffin Live Work Phone: [facility] Work Phone: 12-24-2020 09:03-0400 Body weight 161.48 kg Griffin Tricia Live Work Phone: [facility] Work Phone: 12-24-2020 09:03-0400 Diastolic blood pressure 71 mm[Hg] Griffin Live Work Phone: [facility] Work Phone: 12-24-2020 09:03-0400 Heart rate 65 /min Griffin Live Work Phone: [facility] Work Phone: 12-24-2020 09:03-0400 Respiratory rate 18 /min Griffin Live Work Phone: [facility] Work Phone: 12-24-2020 09:03-0400 SaO2% (BldA) [Mass fraction] 98 % Griffin Live Work Phone: [facility] Work Phone: 12-24-2020 09:03-0400 Systolic blood pressure 122 mm[Hg] Griffin Live Work Phone: [facility] Work Phone: 12-24-2020 09:03-0400 4 1 Griffin Live Work Phone: [facility] Work Phone: Comment on above: [employer] 06-13-2019 16:43-0500 BMI (Body Mass Index) 49.05 kg/m2 Rosie Izquierdomichelegonzalotay [facility] Work Phone: 06-13-2019 16:43-0500 Body Temperature 98.6 [degF] Rosie Cesar [facility] Work Phone: Comment on above: Method: Oral 06-13-2019 16:43-0500 Body weight 173.28 kg Rosie Izquierdojered [facility] Work Phone: 06-13-2019 16:43-0500 BP Diastolic 84 mm[Hg] Rosie Cesar [facility] Work Phone: Comment on above: Location: LUE; Position: Sitting 06-13-2019 16:43-0500 BP Systolic 144 mm[Hg] Rosie Izquierdojered [facility] Work Phone: Comment on above: Location: LUE; Position: Sitting 06-13-2019 16:43-0500 BSA (Body Surface Area) 2.86 m2 Rosiegeorge Guerrero [facility] Work Phone: 06-13-2019 16:43-0500 Pulse (Heart Rate) 108 /min Rosie Cesar [facility] Work Phone: 12-13-2018 16:58-0400 BMI (Body Mass Index) 47.51 kg/m2 Rosie Izquierdojered [facility] Work Phone: 12-13-2018 16:58-0400 Body Temperature 98.2 [degF] Rosie Guerrero [facility] Work Phone: Comment on above: Method: Oral 12-13-2018 16:58-0400 Body weight 167.83 kg Rosie Guerrero [facility] Work Phone: 12-13-2018 16:58-0400 BP Diastolic 82 mm[Hg] Rosie Guerrero [facility] Work Phone: Comment on above: Location: LUE; Position: Sitting 12-13-2018 16:58-0400 BP Systolic 124 mm[Hg] Rosie Guerrero [facility] Work Phone: Comment on above: Location: LUE; Position: Sitting 12-13-2018 16:58-0400 BSA (Body Surface Area) 2.82 m2 Rosie Guerrero [facility] Work Phone: 12-13-2018 16:58-0400 Pulse (Heart Rate) 9 /min Rosie Guerrero [employer] [facility] Work Phone: 12-13-2018 16:58-0400 Pulse Oximetry 93 % Rosie Guerrero [facility] Work Phone: Encounters Encounter Date Encounter Type Care Provider Facility Start: 03-16-2025 ambulatory [facility] [place] Start: 03-16-2025 End: 03-17-2025 Evaluation and management of inpatient Griffin Live SCRIBING MACHINE OPERATOR Facility:[facility] Start: 03-15-2025 End: 03-16-2025 Emergency department patient visit GRIFFIN LIVE Facility:[facility] Start: 03-11-2025 End: 03-11-2025 Admission to same day surgery center Dr. Edmundo Wiggins MD [facility] Start: 03-11-2025 End: 03-11-2025 ambulatory Griffin Live SCRIBING MACHINE OPERATOR-C Work Phone: [facility] Start: 03-10-2025 End: 03-10-2025 Emergency department patient visit GRIFFIN LIVE Facility:[facility] Start: 02-27-2025 End: 02-27-2025 Patient encounter procedure LIMA COLE LINEN CONTROLLER Office [facility] - [id number] Start: 02-27-2025 End: 02-27-2025 ambulatory GRIFFIN LIVE Facility:[facility] Start: 02-24-2025 End: 02-24-2025 Telephone encounter [facility] Comment on above: need to be seen for large kidney stone Start: 02-24-2025 ambulatory GRIFFIN LIVE Facilit y:[id number] Start: 02-24-2025 End: 02-24-2025 ambulatory DANI ROPER Not Available Start: 02-23-2025 End: 02-23-2025 ambulatory DANI ROPER Not Available Start: 02-19-2025 End: 02-22-2025 Evaluation and management of inpatient LULAESSIE MONTOYA DO [facility] Start: 02-18-2025 End: 02-19-2025 Emergency department patient visit GRIFFIN LIVE Facility:[facility] Start: 02-16-2025 End: 02-16-2025 Emergency department patient visit JANETTE COLLINS DO [facility] Start: 02-07-2025 End: 02-07-2025 Emergency department patient visit GRIFFIN LIVE Facility:[facility] Start: 11-17-2024 End: 11-17-2024 Emergency department patient visit GRIFFIN LIVE Facility:[facility] Start: 10-24-2024 End: 10-24-2024 Patient encounter procedure Griffinshurthi RaeLive SCRIBING MACHINE OPERATOR-C -Laboratory Specimen Work Phone: Start: 10-24-2024 End: 10-24-2024 ambulatory Griffinshruthi Live SCRIBING MACHINE OPERATOR-C Work Phone: [facility] Work Phone: Start: 08-22-2024 End: 08-22-2024 ambulatory Griffinshruthi Live SCRIBING MACHINE OPERATOR-C Work Phone: [facility] Work Phone: Start: 08-22-2024 End: 08-22-2024 Patient encounter procedure Griffin Live SCRIBING MACHINE OPERATOR-C -Laboratory, Specimen Work Phone: Start: 08-22-2024 End: 08-22-2024 ambulatory Griffin Live SCRIBING MACHINE OPERATOR Facility:[facility] Start: 07-27-2023 End: 07-27-2023 ambulatory [facility] Work Phone: Start: 07-27-2023 End: 07-27-2023 Patient encounter procedure [facility]-Laboratory, Specimen Work Phone: Start: 07-18-2023 ambulatory Britta Simeon Cl inical Communication Start: 07-18-2023 Patient encounter procedure Britta Simeon Clinical Communication Start: 02-01-2023 Orders Only Madhuri ramirez PA-C Work Phone: [facility] Comment on above: Pain (Primary Dx) Start: 09-06-2022 End: 09-06-2022 ambulatory [facility] Work Phone: Start: 09-06-2022 End: 09-06-2022 Patient encounter procedure [facility]-Laboratory, Specimen Start: 02-08-2022 ambulatory Jonna Leigh [facility] Comment on above: Population Health Na vigation Outreach (hcc) Start: 12-24-2021 End: 12-24-2021 Patient encounter procedure [facility]-Laboratory, Specimen Start: 11-07-2021 End: 11-07-2021 Patient encounter procedure [facility]-Laboratory, Specimen Start: 10-03-[address] Scan Comment on above: Radiology CT Radio Gen RMP Start: 10-03-2021 End: 10-03-2021 Patient encounter procedure Reji Rodriguez APRN.LINEN CONTROLLER Work Phone: [facility] Comment on above: Dizziness (Primary D x); Folliculitis Start: 09-15-2021 Chart abstracting Unknown Neuro logy Start: 06-21-2021 AUDIT Griffin L Butch son Work Phone: [facility] Work Phone: Start: 12-26-2020 Chart Update Griffin randolph Work Phone: [facility] Work Phone: Start: 12-24-2020 FUV, Provider: Rosie Guerrero, Status: Pen, Time: 9:00 AM Griffin Live Work Phone: [facility] Work Phone: Start: 12-24-2020 Office outpatient visit 25 minutes Griffin Live Work Phone: [facility] Work Phone: Start: 12-23-2020 AUDIT Griffin randolph Work Phone: [facility] Work Phone: Start: 06-13-2019 Patient encounter procedure Rosie Guerrero [facility] Work Phone: Start: 01-24-2019 End: 01-24-2019 Subsequent hospital visit by physician Janette Desir Work Phone: [facility] Comment on above: Arrived Start: 01-23-2019 End: 01-23-2019 Subsequent hospital visit by physician Janette Desir Work Phone: [facility] Comment on above: Arrived Start: 12-13-2018 Patient encounter procedure Rsoie Guerrero [facility] Work Phone: Start: 06-07-2018 Patient encounter procedure Rosie Guerrero [facility] Work Phone: Start: 10-12-2017 [facility] encounter [facility] Work Phone: Start: 06-18-2017 Patient encounter procedure Rosie Guerrero [facility] Work Phone: Start: 05-26-2017 Patient encounter procedure Rosie Guerrero [facility] Work Phone: Procedures Date Procedure Procedure Detail Performing Clinician Start: 03-11-2025 Cystoscopy and retro grade pyelography Griffin Live SCRIBING MACHINE OPERATOR-C Work Phone: Start: 03-11-2025 Fluoroscopic guidance Cody Live SCRIBING MACHINE OPERATOR-C Work Phone: Start: 02-21-2025 Collection venous bl ood venipuncture LULA SAGHAFI DO Start: 02-20-2025 Collection venous bl ood venipuncture LULA SAGHAFI DO Start: 02-19-2025 Collection venous bl ood venipuncture LULA SAGHAFI DO Start: 02-19-2025 Collection venous bl ood venipuncture LULA SAGHAFI DO Start: 01-24-2019 Mri any jt upper ext remity w/o contrast matrl Janette Desir Work Phone: Start: 09-05-2016 Colonoscopy To Assigne d Arthroscopy of knee Rosie Izquierdo jered Cholecystectomy Rosie Lee cyril gallbladder removed LULA SAGHAFI DO History of Partial Colectomy Rosie Guerrero pin placed in right foot NAYE ROSH SAGHAFI DO sigmoid colectomy LULA SA GHAFI DO Plan of Treatment Date Care Activity Detail Author Start: 12-05-2027 PROSTATE CANCER SCREENING DISCUSSION PROSTATE CANCER SCREENING DISCUSSION [facility] Start: 09-05-2026 Screening for malign ant neoplasm of colon [facility] Start: 02-18-2026 Creatinine measurement Basic Metabol ic Panel [facility] Start: 03-11-2025 Ambulation without limitation [facility] Start: 03-11-2025 Medical regimen orde rs management [facility] Start: 03-11-2025 Medication education [facility] Start: 03-11-2025 Patient discharge [facility] Start: 03-11-2025 Taking patient vital signs [facility] Start: 03-11-2025 [facility] Start: 03-03-2025 End: 03-03-2025 Patient encounter procedure 03/03/2025 9:20 AM EDT Office Visit [facility] [address] [place] [address] Kishor Emmanuel MD [address] [place] [address] [facility] Start: 02-02-2025 COVID-19 Vaccine ( season) COVID-19 Vaccine ( season) [facility] Start: 02-02-2025 Influenza vaccination Influenza Vacc ine (#1) [facility] Start: 12-05-2023 Hepatitis B surface antibody level LDL CHOLESTEROL [facility] Start: 12-05-2023 Lipid panel Lipid Profile [facility] Start: 06-06-2023 Hemoglobin A1c measurement Hemoglobin A1C [facility] Start: 06-06-2023 Hemoglobin A1c/Hemoglobin.total in Blood HBA1C [facility] Start: 02-02-2023 Influenza vaccination INFLUENZA (#1) [facility] Start: 06-04-2022 DEPRESSION ASSESSMENT DEPRESSION ASS ESSMENT [facility] Start: 02-02-2022 Influenza vaccination C [facility] Start: 06-24-2021 FUV, Provider: Rosie Guerrero, Status: Pen, Time: 1:00 PM FUV, Provider: Rosie Guerrero, Status: Pen, Time: 1:00 PM [facility] Work Phone: Start: 2021 PROSTATE CANCER SCREENING DISCUSSION PROSTATE CANCER SCREENING DISCUSSION [facility] Start: 11-09-2020 Hemoglobin A1c/Hemoglobin.total in Blood HBA1C [facility] Start: 02-02-2019 Influenza vaccination Flu vaccine (# 1) [place] Start: 01-24-2019 End: 01-24-2019 Appointment 01/24/2019 Appointment MRI Janette Desir, DIRECTOR OF LAND ACQUISITION - LINEN CONTROLLER [address] [place] [address] [facility] Start: 2016 Colon cancer screen colonoscopy Colon cancer screen colonoscopy [place] [address] Start: 2016 Shingles (RZV) Vacci ne (1 of 2) Shingles (RZV) Vaccine (1 of 2) [facility] Start: 2016 Shingles Vaccine (1 of 2) Shingles Vaccine (1 of 2) [place] [address] Start: 2016 SHINGRIX VACCINE (1 of 2) SHINGRIX VACCINE (1 of 2) [facility] Start: 06-05-2016 Hepatitis C antibody , confirmatory test DILATED RETINAL EXAM [facility] Start: 12-13-2014 Hepatitis B surface antibody level LDL CHOLESTEROL [facility] Start: 02-11-2014 3 comp foot exam completed DIABETIC FOOT EXAM [facility] Start: 08-17-2013 Hepatitis B screening URINE ALBUMIN:CREATININE RATIO [facility] Start: 2011 COLOGUARD (FIT-DNA) COLOGUARD (FIT-D NA) [facility] Start: 2011 Colonoscopy COLONOSCOPY [facility] Start: 2011 COLORECTAL CANCER SCREENING COLORECTAL CANCER SCREENING [facility] Start: [address] COLONOGRAPHY [facility] Start: 2011 FECAL OCCULT BLOOD FECAL OCCULT BLOO D [facility] Start: 2011 Screening for malign ant neoplasm of colon [facility] Start: 2011 SIGMOIDOSCOPY SIGMOIDOSCOPY [facility] Start: 2006 Lipid screen Lipid screen [place], [place] Start: 1985 DTaP/Tdap/Td vaccine (1 - Tdap) DTaP/Tdap/Td vaccine (1 - Tdap) [place], [place] Start: 1985 Hepatitis A (HAV) Vaccine (optional start 19+ years) Hepatitis A (HAV) Vaccine (optional start 19+ years) [facility] Start: 1985 Hepatitis B vaccination Hepati tis B (HBV) Vaccine (1 of 3 - 19+ 3-dose series) [facility] Start: 1985 Pneumococcal vaccination Pneumococcal Vaccine(s) (50+ yrs) (1 of 2 - PCV) [facility] Start: 1985 Tetanus vaccination Tetanus (T d or Tdap) [facility] Start: 1985 Urine microalbumin profile DTAP,TDAP,TD (1 - Tdap) [facility] Start: 1984 ANNUAL PCP 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 JANIA DISEASE VISIT ANNUAL PCP TEAM CHRONIC DISEASE VISIT [facility] Start: 1984 BP CONTROLLED (<130/80) BP CONTROLLE D (<130/80) [facility] Start: 1984 HEPATITIS C SCREENING HEPATITIS C SC REENING [facility] Start: 1984 Hepatitis C screening Hepatitis C An tibody [facility] Start: 1984 HIV SCREENING HIV SCREENING [facility] Start: 1984 Tdap Booster Tdap Booster [facility] Start: 1982 ONE PNEUMOVAX PRIOR TO AGE 65 ONE PNEUMOVAX PRIOR TO AGE 65 [facility] Start: 1981 HIV screen HIV screen [facility] [place] [place] Start: 1981 HIV screening HIV Test [facility] Start: 1978 Adult depression screening assessment DEPRESSION SCREENING [facility] Start: 1972 PNEUMOCOCCAL (1 - PCV) PNEUMOCOCCAL (1 - PCV) [facility] Start: 1971 COVID-19 VACCINE (1) COVID-19 VACCIN E (1) [facility] Start: 1966 COVID-19 VACCINE (#1) COVID-19 VACCI NE (#1) [facility] Start: 1966 [facility] Start: 1966 Urine screening for protein Urine Protein (microalbumin) [facility] Start: 1966 Diabetic foot examination Foot Exam [facility] Start: 1966 HEPATITIS B (1 of 3 - 3-dose series) HEPATITIS B (1 of 3 - 3-dose series) [facility] End: 03-02-2024 XR HAND GENERAL 3V PA/LAT/OBL LEFT XR HAND GENERAL 3V PA/LAT/OBL LEFT Radiology Routine Pain 1 Occurrences starting 02/01/2023 until 03/02/2024 [facility] Work Phone: Comment on above: 1 Occurrences starti ng 02/01/2023 until 03/02/2024 End: 03-02-2024 XR HAND GENERAL 3V PA/LAT/OBL RIGHT XR HAND GENERAL 3V PA/LAT/OBL RIGHT Radiology Routine Pain 1 Occurrences starting 02/01/2023 until 03/02/2024 [facility] Work Phone: Comment on above: 1 Occurrences starti ng 02/01/2023 until 03/02/2024 [facility] Immunizations Immunization Date Immunization Notes Care Provider Fa philip 02-20-2025 influenza, seasonal, injectable, preservative free; Translations: [FluLaval PF Prefilled Syringe ] LULA MONTOYA DO [facility] 12-04-2022 Hemoglobin A1C To Assigned [facility] 06-05-2019 influenza, injectabl e, quadrivalent, preservative free [facility] Work Phone: [facility] Work Phone: 05-04-2019 influenza, injectabl e, quadrivalent, preservative free Rosie Cesar [facility] Work Phone: Comment on above: Series: 04-07-2018 influenza, injectabl e, quadrivalent, preservative free Rosiegeorge Saldanai [facility] Work Phone: Comment on above: Series: 10-24-2013 measles, mumps and rubella virus vaccine [facility] Work Phone: [facility] Payers Date Payer Category Payer Medicare [id number] 2025 [facility] JULIUS TURNER [id number] 2024 Self-pay [id number] 2024 Unknown [id number] 2021 Unknown JOHN JOHN CLEBruno ELAND RUTH / JOHN [id number] 2021-Present [phone] [address] [address] [place] [address] EPO [id number] 2008 Unknown 1966 Unknown [id number]. 159 1966 Unknown [id number]. 159 1966 Unknown [id number]. 159 1966 Unknown [id number]. 159 1966 Unknown [id number]. 159 Medicare Private Health Insurance [id number] Unknown [id number] Unknown [id number] Unknown [id number] Unknown [id number] Unknown [id number]. 462 Unknown [id number] [id number]. 462 Unknown [id number] 2.16.840.1.333144.3.579.2. 462 Unknown [id number] [id number]. 462 Unknown [id number] [id number]. 462 Unknown [id number] [id number]. 462 Unknown [id number]. 462 Social History Date Type Detail Facility Start: 1965 Sex Assigned At Not on file [place], [place] Start: 10-03-2021 End: 12-15-2022 Never used tobacco Never used tobacco [facility] Start: 07-27-2011 End: 03-06-2025 Tobacco smoking status NHIS Never smoked tobacco [facility] Start: 04-07-2021 End: 10-03-2021 Alcohol intake Current non-drinker of alcohol (finding) [facility] Start: 1965 Sex Assigned At Male C [facility] Start: 09-23-2021 End: 10-03-2021 Exposure to SARS-CoV-2 (event) Not sure [facility] Start: 11-04-2020 End: 11-04-2020 Tobacco smoking status NHIS Unknown if ever smoked [facility] Start: 07-27-2011 Tobacco use and exposure Smokeless tobacco non-user [facility] Start: 10-03-2021 End: 12-15-2022 Tobacco use panel [facility] PHQ2 Score 0 [facility] Start: 10-15-2019 Gender identity Identifies as male gender (finding) [facility] Start: 10-15-2019 Sexual orientation Heterosexual (fin ding) [facility] Start: 06-04-2009 End: 08-28-2024 Sex Male (finding) [facility] Tobacco smoking status [facility] NEGATED: Highlighted row - - [facility] Work Phone: Medical Equipment Procedure Code Equipment Code Equipment Origin al Text Equipment Identifier Dates Screw 5.5mm Part ial Thread Titanium 55mm Bone Low Profile Head Self Tap - [id number] Start: 10-22-2019 Insulin Syringe-Needle U-100 (Bd Insulin Syringe) 1 mL 29 gauge x 1/2 syringe Start: 08-19-2020 End: 04-22-2021 Insulin Syringe-Needle U-100 (Bd Insulin Syringe) 1 mL 29 gauge x 1/2 syringe Start: 08-19-2020 End: 04-22-2021 Insulin Syringe-Needle U-100 (Bd Insulin Syringe) 1 mL 29 gauge x 1/2 syringe Start: 08-19-2020 End: 04-22-2021 Insulin Syringe-Needle U-100 (Bd Insulin Syringe) 1 mL 29 gauge x 1/2 syringe Start: 08-19-2020 End: 04-22-2021 Insulin Syringe-Needle U-100 (Bd Insulin Syringe) 1 mL 29 gauge x 1/2 syringe Start: 08-19-2020 End: 04-22-2021 Insulin Syringe-Needle U-100 (Bd Insulin Syringe) 1 mL 29 gauge x 1/2 syringe Start: 08-19-2020 End: 04-22-2021 Insulin Syringe-Needle U-100 (Bd Insulin Syringe) 1 mL 29 gauge x 1/2 syringe Start: 08-19-2020 End: 04-22-2021 Goals Date Patient Goal Desired Activity /State Functional Status Date Assessment Result Facility NEGATED: Highlighted row Functional performance Functional status health issues are not documented Disease [facility] Work Phone: Mental Status Date Assessment Result Facility 03-11-2025 Cognitive function Level Of Cons ciousness Drowsy [facility] Work Phone: 03-11-2025 Cognitive function Voice/Name [facility] Work Phone: NEGATED: Highlighted row Cognitive function [Interpretation] Cognitive status health issues are not documented Disease [facility] Work Phone: Clinical Notes 10-08-2015 to 03-11-2025 Note Date & Type Note Facility 03-11-2025 Consult note Note Date/Time March 11, 2025 9:00am [facility] Medical Records Department [address] [place] [address] Pre-Anesthesia Evaluation 03/11/25 0855 MR#: [id number] Acct: [id number] Name: JAME WALLACE Rep #:[id number] : 1965 59 From: Roman Ross PCP: [facility], MANDO-C Status:REG SDC Y Race: C Location: [place] [address] ASA Classification* ASA Classification ASA Classification: 2 Assessment & Plan Anesthesia* Anesthesia Assessment Anesthesia Assessment: Discussed sedation and/or anesthesia options, risks, benefits, and alternatives with patient/parents/legal guardian/POA. Questions invited. The patient/parents/legal guardian/POA seems to understand and agrees to proceedwith anesthesia plan. Reviewed the physical assessment, medical history, allergy history and patient home medications list prior to surgery/procedure/anesthetic and documented any changes. Performed airway and anesthesia risk assessments. Anesthesia Type Anesthesia Type: General History Source History Obtained from:: Patient and Chart Anesthesia Focused Assessment* Temperature: 97.8 F Pulse Rate: 69 Blood Pressure: 135/72 Respiratory Rate: 18 Pulse Ox: 94 Oxygen Delivery Method: Room Air Airway Assessment Mouth opens: >3 cm Mallampati Score: II Teeth Condition: Intact Neck Range of motion (ROM): Limited ROM Labs Anesthesia Preop lab: CBC WBC, (4.4-11.0) 9.4 K/mm3 10/23/24, Unknown RBC, (4.6-6.2) 4.62 M/mm3 10/23/24, Unknown Hgb, (13.0-16.5) 14.2 g/dL 10/23/24, Unknown Hct, (40-54) 44.0 % 10/23/24, Unknown Plt Count, (150-450) 278 K/mm3 10/23/24, Unknown CHEMISTRY Potassium, (3.3-5.1) 4.4 mmol/L 08/22/24, Unknown Sodium, (133-145) 138 mmol/L 08/22/24, Unknown BUN, (4-19) 15 mg/dL 08/22/24, Unknown Creatinine, (0.70-1.20) 1.49 mg/dL H 08/22/24, Unknow n Glucose, (70-99) 213 mg/dL H 08/22/24, Unknown POC Glucose, (74-106) 154 mg/dL H Today, 08:00 TSH, (0.300-4.200) 3.290 uIU/mL 10/23/24, Unknown COAG INR 0.8 10/04/20, 21:08 Pre-Assessment Diagnosis/Proposed Procedure Planned Operative Procedure(s): (R) Cysto,Ureteroscopy,Retro,Laser,Stent Anesthesia History Anesthesia History - loss prevention agent: Anesthesia History - loss prevention agent Hx Hospitalization Yes: 02/2025 CHF 03/06/25 14:04 Any Problems With Anesthesia No 03/06/25 14:04 Cholinesterase deficiency No 03/06/25 14:04 You/Your Family Experience No 03/06/25 14:04 fever (hyperthermia) with Relationship Recent Exposure to Contagious No 03/11/25 08:05 Disease Does patient have nerve No 03/06/25 14:04 stimulator Patient instructed to have device shut off --Does patient have Pacemaker No 03/11/25 08:05 or ICD? When Was Last Pacemaker Check QUESTION #4 FULL TEXT: You/Your Family Experience fever (hyperthermia) with Anesthesia Last Oral Intake Last Oral intake: Last Oral Intake NPO since 22:30 03/11/25 08:05 Meds taken in AM with sips of No 03/11/25 08:05 water? Meds patient instructed to take am of surgery PONV PONV - loss prevention agent: PONV - loss prevention agent Female No 03/06/25 14:04 HX of Motion Sickness No 03/06/25 14:04 HX of N/V After Surgery No 03/06/25 14:04 Non-Smoker Yes 03/06/25 14:04 Duration of Surgery greater Yes 03/06/25 14:04 than 60 minutes Number of Risk Factors 2 03/06/25 14:04 PONV Score Moderate Risk 03/06/25 14:04 Height & Weight Height & Weight: Anesthesia: Height & Weight Height 6 ft 03/11/25 08:05 Weight: 165 kg 03/11/25 08:05 Body Mass Index (BMI) 49.3 03/11/25 08:05 Respiratory Assessment Respiratory Assessment - loss prevention agent: Respiratory Tract Infection Hx - loss prevention agent Hx Respiratory Tract Infection No 03/06/25 14:04 STOP Sleep Apnea STOP Sleep Apnea - loss prevention agent: STOP Sleep Apnea - loss prevention agent Hx Hypertension Yes: PER PT, CONTROLLED ON 03/06/25 14:04 MEDS Hx Sleep Apnea Yes 03/06/25 14:04 CPAP No 03/06/25 14:04 BIPAP No 03/06/25 14:04 Do you snore loudly (louder than talking or can be heard Do you often feel tired/ fatigued/ sleepy during daytime? Has anyone observed you stop breathing during sleep? STOP Results Positive 03/06/25 14:04 QUESTION #5 FULL TEXT : Do you snore loudly (louder than talking or can be heard through closed doors)? Tobacco Use History Tobacco Use History - loss prevention agent: Tobacco Use History - loss prevention agent Tobacco Use Smoking Status Never smoker 03/06/25 14:04 Hx Tobacco Use No 03/06/25 14:04 Years Smoking Packs Smoked per Day Smoking Cessation Date was within the last 15 years Hx Smoking Cessation Date Hx Smoking Cessation Counseling Hematologic Medial History Hematologic Hx - loss prevention agent: Hematologic Medical Hx - doughnut icer machine Hx of Blood Transfusion No 03/06/25 14:04 Hx of Transfusion in last 3 No 03/06/25 14:04 Months Date of Last Transfusion (if within last 3 months) Ever experience any problems No 03/06/25 14:04 with transfusion(s)? Specify any problems Hx of Preganancy in last 3 N/A 03/06/25 14:04 Months Nurse Filling Out Transfusion MGRIFFITH 03/06/25 14:04 & Questions: Date: 03/06/25 03/06/25 14:04 Time: 14:07 03/06/25 14:04 Patient unable to answer at this time (ie. confused, unrespo /Reproduction History /Reproductive History - loss prevention agent: /Reproductive Hx- loss prevention agent Hx Now No 03/06/25 14:04 Gestational Age (in weeks): EDC: Hx Hx Para Hx Section SAB Active Medications Active Medications: Current Medications Generic Name Dose Route Start Last Admin Trade Name Freq PRN Reason Stop Dose Admin Cefazolin Sodium 2 gm/ Sodium 110 mls @ 200 mls/hr 03/11/25 13:20 Chloride IV 03/11/25 13:52 INTRAOP ONE Lactated Ringer's 1,000 mls @ 15 mls/hr 03/11/25 07:45 03/11/25 08:16 IV 15 mls/hr .Q48H AKHIL Administration PFSH Medical History Wears glasses Vertigo History of MRSA infection Cancer Neuropathy Rheumatoid arthritis Arthritis High cholesterol Excessive bleeding Dietary restriction History of diverticulitis Sleep apnea Non-smoker History of echocardiogram History of stress test Hypertension Cardiology follow-up encounter History of atrial fibrillation History of CHF (congestive heart failure) Hypothyroidism Depression Diaphragm dysfunction Dupuytren's fibromatosis Basal cell carcinoma (BCC) in situ of skin Insomnia Bursitis of right shoulder Pneumonia Diverticulitis Diabetes type 2, controlled Hypoglycemia Gout Hyperlipidemia LDL goal <130 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 Home Medications ?Medication ?Instructions ?Recorded ?Last Taken ?Type aspirin 81 mg tablet,delayed 81 mg PO DAILY 03/02/18 U nknown History release (Adult Low Dose Aspirin) magnesium oxide 500 mg capsule 500 mg PO DAILY 8 03/10/25 History prodigy #1 ea 03/02/18 Unknown Histo ry fluticasone propionate 0.05 % 1 applic topical QD-BID PRN 11/05/20 Unknown Rx topical cream (Cutivate) allergic reaction #60 grams albuterol sulfate 90 mcg/actuation 2 puff inhalation Q 4H PRN sob #6.7 08/22/24 Unknown Rx aerosol inhaler (Ventolin HFA) grams amlodipine 5 mg tablet 5 mg PO DAILY #90 tabs 08/2203/10/25 Rx bupropion HCl 100 mg tablet,12 hr 100 mg PO BID #180 t abs 08/22/24 03/10/25 Rx sustained-release celecoxib 200 mg capsule 200 mg PO BID #180 caps 08/0302/19/25 Rx gabapentin 400 mg capsule 400 mg PO TID 90 days #270 c aps 08/22/24 03/10/25 Rx glimepiride 4 mg tablet 4 mg PO QAM #90 tabs 5 03/10/25 Rx metformin 850 mg tablet 850 mg PO BID #180 tabs 08/0303/10/25 Rx metoprolol tartrate 37.5 mg tablet 37.5 mg PO BID #180 tabs 08/22/24 03/10/25 Rx mirtazapine 15 mg tablet 7.5 mg (1/2 x 15 mg) PO QHS PRN 08/22/24 03/10/25 Rx sleep 90 days #90 tabs pioglitazone 45 mg tablet 45 mg PO DAILY #90 tabs 08/0303/10/25 Rx sumatriptan succinate 50 mg tablet See Rx Instructions PO .COMPLEX 90 08/22/24 Unknown Rx days #20 tabs tramadol 50 mg tablet 50 mg PO TID neuropathic leigha n #90 08/22/24 03/10/25 Rx tabs levothyroxine 75 mcg tablet 75 mcg PO QDAY #90 tabs 03/10/25 Rx (Euthyrox) atorvastatin 40 mg tablet 40 mg PO QHS #90 tabs 03/10/25 Rx rimegepant 75 mg disintegrating 75 mg PO ONCE PRN migr eduarda headache 11/27/24 Unknown History tablet (Nurtec ODT) rimegepant 75 mg disintegrating 75 mg PO ONCE PRN migr eduarda 11/28/24 Unknown Rx tablet (Nurtec ODT) headache #7 tabs ammonium lactate 12 % topical cream 1 applic topical P RN CRACKED HANDS 03/06/25 Unknown History apixaban 5 mg tablet (Eliquis) 5 mg PO BID 03/06/25 History duloxetine 60 mg capsule,delayed 60 mg PO QHS 03/06/25 03/10/25 History release furosemide 40 mg tablet 40 mg PO DAILY 03/06/2512/26 History ketorolac 10 mg tablet 10 mg PO 4X/DAY PRN PRN mode rate 03/06/25 03/10/25 History pain meclizine 12.5 mg tablet 12.5 mg PO TID PRN vertigo 1 Unknown History tamsulosin 0.4 mg capsule 0.4 mg PO DAILY 03/06/2512/26 History Allergy/AdvReac Type Severity Reaction Status Date / Time No Known Allergies Allergy Verified 03/11/25 08:02 Family History Other Esophageal cancer FH: ovarian cancer Surgical History History of surgery History of foot surgery History of colonoscopy Lump of skin of back History of colectomy History of appendectomy History of cholecystectomy Social History Smoking Status: Never smoker Review of Systems (Anesthesia) ROS Narrative System reviewed and no additional complaints, except as documented. 03/11/25 09 <Electronically signed by Roman Pichardo MD> Date _ Roman Pichardo MD Cosigner Signature: Date CC: ~ Signed [facility] Work Phone: [phone]) 353-787310-08-2025 Procedure note [facility] Medical Records Department [address] [place] [address] Operative Report 03/11/25 1037 MR#: [id number] Acct: [id number] Name: JAME WALLACE Rep #:[id number] : 1965 59 From: Edmundo Wiggins MD PCP: DAVID Marina Status:[facility] Location: [place] [address] Operative Report (Standard) Operative Information Date of Procedure: 03/11/25 Pre-Operative Diagnosis: Right kidney stone Post-Operative Diagnosis: The same Surgery/Procedure Performed: Cystoscopy right ureteroscopy laser lithotripsy of stone and right stent placement, right retrograde pyelogram floral design teacher: No Type of Anesthesia: General RN Documented Start/Stop Times: Operation Date: 03/11/25 09:50 Case Time Into Pre-Op 03/11/25 07:43 Out of Pre-Op 03/11/25 09:38 Anesthesia Start 03/11/25 09:41 Into Room 03/11/25 09:41 Procedure Start 03/11/25 09:58 Procedure End 03/11/25 10:22 Anesthesia End 03/11/25 10:31 Out of Room 03/11/25 10:31 Procedure Start Time: 09:58 Procedure Stop Time: 10:22 Select all DRAINS/GRAFTS/IMPLANTS that apply: Drains Drain details: 6 x 26 stent Estimated Blood Loss: None Specimen collected: No Description of surgery: Indication 59-year-old male with a large stone on the right kidney plan to take patient to surgery for laser lithotripsy of stone and stent placement, is taken back to the operating room after induction of anesthesia he was placed in dorsolithotomy position penis and testicles were prepped and draped in usual fashion within the bladder with a 21 Mosotho rigid cystourethroscope cannulated the rightureter orifice with a Glidewire and a Pollick catheter performed a retrograde pyelogram, and then after this to put a wire up into the right kidneyover the wire I went in with a 8 Mosotho flexible Olympus ureteroscope was able to get in the ureter quite easily worked our way all up the way to the kid darek I then found the stone in the midpole of the right kidney I used 365 ?m laser fiber and thuliumfiber with dusting settings and the stone was lasered completely into tiny little pieces after successfully lasering the stone I worked my way down the ureter and then put a wire up into the right kidney of the wire placed a stent stent coiled in the kidney and bladder in good position the wire waspulled bladder was drained patient anesthetic reversed taken back to PACU in stable condition and follow-up in 1 week for stent removal Surgical Findings: Stone lasered completely Complications Complications: No Admit VTE Documentation VTE Present on Admission: No VTE Mechan Device Prophylaxis: SCD's VTE Pharm Prophylaxis ordered?: No 03/11/25 1039 Cosigner Signature (if applicable): CC: DAVID Live; Dr. Edmundo Wiggins MD~ Signed [facility]10-08-2025 Discharge summary [facility] Medical Records Department [address] [place] [address] Instructions for Home/Discharge Instructions 03/11/25 1036 MR#: [id number] Acct: [id number] Name: JAME WALLACE Rep #:[id number] : 1965 59 From: Edmundo Wiggins MD PCP: [facility] NP-C Status:REG SDC Discharge Instructions DC O2, CPAP, BIPAP needs Home O2 Discharge instructions: No Dressing / Incision Discharge Activity: Return to Normal Activity and May Not Drive (while taking narcotic pain medications.) Dressing / Incision Call your doctor if you observe: Fever of 101 or Higher Follow Up Care Please Follow Up With: Edmundo Wiggins MD When: Call [phone] for an appointment Test Results: Test results from this visit will be discussed in further detail at your follow- up appointment, if applicable. Discharge Plan Admission Primary Reason for Your Visit: right kidney stone Attending Provider: Edmundo Wiggins Primary Care Provider: [facility] NP Instructions Print Language: Greek Discharge Orders/Prescriptions Prescriptions: New cephalexin 500 mg capsule 500 mg PO Q6H Qty: 28 0RF phenazopyridine [Pyridium] 100 mg tablet 100 mg PO TID Qty: 20 0RF oxycodone 5 mg tablet 5 mg PO Q6H PRN (Reason: pain) 7 Days Qty: 20 0RF Continued magnesium oxide 500 mg capsule 500 mg PO DAILY (DME) prodigy Qty: 1 Dose Instruction: As directed Rx Instructions: As directed aspirin [Adult Low Dose Aspirin] 81 mg tablet,delayed release (DR/EC) 81 mg PO DAILY Patient Comments: LAST DOSE 02/19/25 FOR SURGERY 03/11/25 fluticasone propionate [Cutivate] 0.05 % cream 1 applic TOPICAL QD-BID PRN (Reason: allergic reaction) Qty: 60 12RF albuterol sulfate [Ventolin HFA] 90 mcg/actuation HFA aerosol inhaler 2 puff inhalation Q4H PRN (Reason: sob) Qty: 6.7 3RF amlodipine 5 mg tablet 5 mg PO DAILY Qty: 90 3RF bupropion HCl 100 mg tablet sustained-release 12 hr 100 mg PO BID Qty: 180 3RF celecoxib 200 mg capsule 200 mg PO BID Qty: 180 3RF gabapentin 400 mg capsule 400 mg PO TID 90 Days Qty: 270 3RF glimepiride 4 mg tablet 4 mg PO QAM Qty: 90 3RF metformin 850 mg tablet 850 mg PO BID Qty: 180 3RF metoprolol tartrate 37.5 mg tablet 37.5 mg PO BID Qty: 180 3RF mirtazapine 15 mg tablet 7.5 mg PO QHS PRN (Reason: sleep) 90 Days Qty: 90 3RF pioglitazone 45 mg tablet 45 mg PO DAILY Qty: 90 3RF sumatriptan succinate 50 mg tablet See Rx Instructions PO .COMPLEX 90 Days Qty: 20 3RF Dose Instruction: take 1 tab at onset of headache; if no relief may repeat 1 tab in 2hr; max = 4 tabs/day (24hr) PO Rx Instructions: take 1 tab at onset of headache; if no relief may repeat 1 tab in 2hr; max = 4 tabs/day (24hr) PO tramadol 50 mg tablet 50 mg PO TID Qty: 90 5RF atorvastatin 40 mg tablet 40 mg PO QHS Qty: 90 3RF Nurtec ODT 75 mg tablet,disintegrating 75 mg PO ONCE PRN (Reason: migraine headache) Rx Instructions: as a single dose Nurtec ODT 75 mg tablet,disintegrating 75 mg PO ONCE PRN (Reason: migraine headache) Qty: 7 12RF Rx Instructions: as a single dose furosemide 40 mg tablet 40 mg PO DAILY ketorolac 10 mg tablet 10 mg PO 4X/DAY PRN PRN (Reason: moderate pain) tamsulosin 0.4 mg capsule 0.4 mg PO DAILY meclizine 12.5 mg tablet 12.5 mg PO TID PRN (Reason: vertigo) ammonium lactate 12 % cream 1 applic TOPICAL PRN duloxetine 60 mg capsule,delayed release(DR/EC) 60 mg PO QHS Eliquis 5 mg tablet 5 mg PO BID Patient Comments: LAST DOSE TO BE 03/07/25 levothyroxine [Euthyrox] 75 mcg tablet 75 mcg PO QDAY Qty: 90 3RF Referrals / Follow Up: Edmundo Wiggins MD [Med Staff - Active Staff, Urology] Griffin Live NP, SCRIBING MACHINE OPERATOR-C [Primary Care Provider, Family Practice] Disposition Disposition (needs filled in before D/C Order can be placed): Home, Self Care 03/11/25 Lexie Wiggins MD CC: SCRIBING MACHINE OPERATOR-C Griffin Live ~ Signed [facility]10-08-2025 Consult note [facility] Medical Records Department [address] [place] [address] Pre-Anesthesia Evaluation 03/11/25 0855 MR#: [id number] Acct: [id number] Name: JAME WALLACE Rep #:[id number] : 1965 59 From: Roman Ross PCP: Griffin Live SCRIBING MACHINE OPERATOR-C Status:REG SDC Y Race: C Location: [place] [address] ASA Classification* ASA Classification ASA Classification: 2 Assessment & Plan Anesthesia* Anesthesia Assessment Anesthesia Assessment: Discussed sedation and/or anesthesia options, risks, benefits, and alternatives with patient/parents/legal guardian/POA. Questions invited. The patient/parents/legal guardian/POA seems to understand and agrees to proceedwith anesthesia plan. Reviewed the physical assessment, medical history, allergy history and patient home medications list prior to surgery/procedure/anesthetic and documented any changes. Performed airway and anesthesia risk assessments. Anesthesia Type Anesthesia Type: General History Source History Obtained from:: Patient and Chart Anesthesia Focused Assessment* Temperature: 97.8 F Pulse Rate: 69 Blood Pressure: 135/72 Respiratory Rate: 18 Pulse Ox: 94 Oxygen Delivery Method: Room Air Airway Assessment Mouth opens: >3 cm Mallampati Score: II Teeth Condition: Intact Neck Range of motion (ROM): Limited ROM Labs Anesthesia Preop lab: CBC WBC, (4.4-11.0) 9.4 K/mm3 10/23/24, Unknown RBC, (4.6-6.2) 4.62 M/mm3 10/23/24, Unknown Hgb, (13.0-16.5) 14.2 g/dL 10/23/24, Unknown Hct, (40-54) 44.0 % 10/23/24, Unknown Plt Count, (150-450) 278 K/mm3 10/23/24, Unknown CHEMISTRY Potassium, (3.3-5.1) 4.4 mmol/L 08/22/24, Unknown Sodium, (133-145) 138 mmol/L 08/22/24, Unknown BUN, (4-19) 15 mg/dL 08/22/24, Unknown Creatinine, (0.70-1.20) 1.49 mg/dL H 08/22/24, Unknow n Glucose, (70-99) 213 mg/dL H 08/22/24, Unknown POC Glucose, (74-106) 154 mg/dL H Today, 08:00 TSH, (0.300-4.200) 3.290 uIU/mL 10/23/24, Unknown COAG INR 0.8 10/04/20, 21:08 Pre-Assessment Diagnosis/Proposed Procedure Planned Operative Procedure(s): (R) Cysto,Ureteroscopy,Retro,Laser,Stent Anesthesia History Anesthesia History - loss prevention agent: Anesthesia History - loss prevention agent Hx Hospitalization Yes: 02/2025 CHF 03/06/25 14:04 Any Problems With Anesthesia No 03/06/25 14:04 Cholinesterase deficiency No 03/06/25 14:04 You/Your Family Experience No 03/06/25 14:04 fever (hyperthermia) with Relationship Recent Exposure to Contagious No 03/11/25 08:05 Disease Does patient have nerve No 03/06/25 14:04 stimulator Patient instructed to have device shut off --Does patient have Pacemaker No 03/11/25 08:05 or ICD? When Was Last Pacemaker Check QUESTION #4 FULL TEXT: You/Your Family Experience fever (hyperthermia) with Anesthesia Last Oral Intake Last Oral intake: Last Oral Intake NPO since 22:30 03/11/25 08:05 Meds taken in AM with sips of No 03/11/25 08:05 water? Meds patient instructed to take am of surgery PONV PONV - loss prevention agent: PONV - loss prevention agent Female No 03/06/25 14:04 HX of Motion Sickness No 03/06/25 14:04 HX of N/V After Surgery No 03/06/25 14:04 Non-Smoker Yes 03/06/25 14:04 Duration of Surgery greater Yes 03/06/25 14:04 than 60 minutes Number of Risk Factors 2 03/06/25 14:04 PONV Score Moderate Risk 03/06/25 14:04 Height & Weight Height & Weight: Anesthesia: Height & Weight Height 6 ft 03/11/25 08:05 Weight: 165 kg 03/11/25 08:05 Body Mass Index (BMI) 49.3 03/11/25 08:05 Respiratory Assessment Respiratory Assessment - loss prevention agent: Respiratory Tract Infection Hx - loss prevention agent Hx Respiratory Tract Infection No 03/06/25 14:04 STOP Sleep Apnea STOP Sleep Apnea - loss prevention agent: STOP Sleep Apnea - loss prevention agent Hx Hypertension Yes: PER PT, CONTROLLED ON 03/06/25 14:04 MEDS Hx Sleep Apnea Yes 03/06/25 14:04 CPAP No 03/06/25 14:04 BIPAP No 03/06/25 14:04 Do you snore loudly (louder than talking or can be heard Do you often feel tired/ fatigued/ sleepy during daytime? Has anyone observed you stop breathing during sleep? STOP Results Positive 03/06/25 14:04 QUESTION #5 FULL TEXT : Do you snore loudly (louder than talking or can be heard through closeddoors)? Tobacco Use History Tobacco Use History - loss prevention agent: Tobacco Use History - loss prevention agent Tobacco Use Smoking Status Never smoker 03/06/25 14:04 Hx Tobacco Use No 03/06/25 14:04 Years Smoking Packs Smoked per Day Smoking Cessation Date was within the last 15 years Hx Smoking Cessation Date Hx Smoking Cessation Counseling Hematologic Medial History Hematologic Hx - loss prevention agent: Hematologic Medical Hx - doughnut icer machine Hx of Blood Transfusion No 03/06/25 14:04 Hx of Transfusion in last 3 No 03/06/25 14:04 Months Date of Last Transfusion (if within last 3 months) Ever experience any problems No 03/06/25 14:04 with transfusion(s)? Specify any problems Hx of Preganancy in last 3 N/A 03/06/25 14:04 Months Nurse Filling Out Transfusion MGRIFFITH 03/06/25 14:04 & Questions: Date: 03/06/25 03/06/25 14:04 Time: 14:07 03/06/25 14:04 Patient unable to answer at this time (ie. confused, unrespo /Reproduction History /Reproductive History - loss prevention agent: /Reproductive Hx- loss prevention agent Hx Now No 03/06/25 14:04 Gestational Age (in weeks): EDC: Hx Hx Para Hx Section SAB Active Medications Active Medications: Current Medications Generic Name Dose Route Start Last Admin Trade Name Freq PRN Reason Stop Dose Admin Cefazolin Sodium 2 gm/ Sodium 110 mls @ 200 mls/hr 03/11/25 13:20 Chloride IV 10/08/25 13:52 INTRAOP ONE Lactated Ringer's 1,000 mls @ 15 mls/hr 03/11/25 07:45 03/11/25 08:16 IV 15 mls/hr .Q48H AKHIL Administration PFSH Medical History Wears glasses Vertigo History of MRSA infection Cancer Neuropathy Rheumatoid arthritis Arthritis High cholesterol Excessive bleeding Dietary restriction History of diverticulitis Sleep apnea Non-smoker History of echocardiogram History of stress test Hypertension Cardiology follow-up encounter History of atrial fibrillation History of CHF (congestive heart failure) Hypothyroidism Depression Diaphragm dysfunction Dupuytren's fibromatosis Basal cell carcinoma (BCC) in situ of skin Insomnia Bursitis of right shoulder Pneumonia Diverticulitis Diabetes type 2, controlled Hypoglycemia Gout Hyperlipidemia LDL goal <130 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 Home Medications ?Medication ?Instructions ?Recorded ?Last Taken ?Type aspirin 81 mg tablet,delayed 81 mg PO DAILY 03/02/18 U nknown History release (Adult Low Dose Aspirin) magnesium oxide 500 mg capsule 500 mg PO DAILY 8 03/10/25 History prodigy #1 ea 03/02/18 Unknown Histo ry fluticasone propionate 0.05 % 1 applic topical QD-BID PRN 11/05/20 Unknown Rx topical cream (Cutivate) allergic reaction #60 grams albuterol sulfate 90 mcg/actuation 2 puff inhalation Q 4H PRN sob #6.7 08/22/24 Unknown Rx aerosol inhaler (Ventolin HFA) grams amlodipine 5 mg tablet 5 mg PO DAILY #90 tabs 08/2203/10/25 Rx bupropion HCl 100 mg tablet,12 hr 100 mg PO BID #180 t abs 08/22/24 03/10/25 Rx sustained-release celecoxib 200 mg capsule 200 mg PO BID #180 caps 08/0302/19/25 Rx gabapentin 400 mg capsule 400 mg PO TID 90 days #270 c aps 08/22/24 03/10/25 Rx glimepiride 4 mg tablet 4 mg PO QAM #90 tabs 5 03/10/25 Rx metformin 850 mg tablet 850 mg PO BID #180 tabs 08/0303/10/25 Rx metoprolol tartrate 37.5 mg tablet 37.5 mg PO BID #180 tabs 08/22/24 03/10/25 Rx mirtazapine 15 mg tablet 7.5 mg (1/2 x 15 mg) PO QHS PRN 08/22/24 03/10/25 Rx sleep 90 days #90 tabs pioglitazone 45 mg tablet 45 mg PO DAILY #90 tabs 08/0303/10/25 Rx sumatriptan succinate 50 mg tablet See Rx Instructions PO .COMPLEX 90 08/22/24 Unknown Rx days #20 tabs tramadol 50 mg tablet 50 mg PO TID neuropathic leigha n #90 08/22/24 03/10/25 Rx tabs levothyroxine 75 mcg tablet 75 mcg PO QDAY #90 tabs 03/10/25 Rx (Euthyrox) atorvastatin 40 mg tablet 40 mg PO QHS #90 tabs 03/10/25 Rx rimegepant 75 mg disintegrating 75 mg PO ONCE PRN migr eduarda headache 11/27/24 Unknown History tablet (Nurtec ODT) rimegepant 75 mg disintegrating 75 mg PO ONCE PRN migr eduarda 11/28/24 Unknown Rx tablet (Nurtec ODT) headache #7 tabs ammonium lactate 12 % topical cream 1 applic topical P RN CRACKED HANDS 03/06/25 Unknown History apixaban 5 mg tablet (Eliquis) 5 mg PO BID 03/06/25 History duloxetine 60 mg capsule,delayed 60 mg PO QHS 03/06/25 03/10/25 History release furosemide 40 mg tablet 40 mg PO DAILY 03/06/2512/26 History ketorolac 10 mg tablet 10 mg PO 4X/DAY PRN PRN mode rate 03/06/25 03/10/25 History pain meclizine 12.5 mg tablet 12.5 mg PO TID PRN vertigo 1 Unknown History tamsulosin 0.4 mg capsule 0.4 mg PO DAILY 03/06/2512/26 History Allergy/AdvReac Type Severity Reaction Status Date / Time No Known Allergies Allergy Verified 03/11/25 08:02 Family History Other Esophageal cancer FH: ovarian cancer Surgical History History of surgery History of foot surgery History of colonoscopy Lump of skin of back History of colectomy History of appendectomy History of cholecystectomy Social History Smoking Status: Never smoker Review of Systems (Anesthesia) ROS Narrative System reviewed and no additional complaints, except as documented. 03/11/25 0900 MD> Date _ Roman Pichardo MD Cosigner Signature: Date CC: ~ Signed [facility]09-26-2025 TopherJAME :1965 Registration Date:02/27/2025 [facility] [place] M.D., Mikey Ling M.D., Sarah Hassan M.D., Bony Hoffman M.D., Gita Day M.D.,Nirav Wang M.D., Timothy Malik M.D., Bari Meléndez M.D., Harshal Marie M.D., Nadir Phillips M.D., Kd Cruz, Lima Cole., N.P., & Raissa Adam N. P [phone], [address], [phone] [place], [address] [place], [address] Return to Work Slip The above referenced patient may return to work on 03/02/25 Sincerely, [facility]09-23-2025 Telephone encounter Note* Telephone Encounter - Ivone Salmeron - 02/24/2025 9:48 AM EDT Hi, it hard stops me due to him being in er/express care at [facility] within 7 days for kidney stone. I can forward to the PSS. [id number] Miscellaneous Notes* Telephone Encounter - Ivone Salmeron - 02/24/2025 9:48 AM EDT Hi, it hard stops me due to him being in er/express care at [facility] within 7 days for kidney stone. I can forward to the PSS. * Telephone Encounter - Ivone Salmeron - 02/24/2025 9:30 AM EDT Patient's daughter called in, patient was supposed to have a procedure at [facility] but was denied and he could only come to [facility]. The kidney stone is very large. Please call patient to setup care. Thank you. #[phone] documented in this [id number] NotePatient's daughter called in, patient was supposed to have a procedure at [facility] but was denied and he could only come to [facility]. The kidney stone is very large. Please call patient to set up care. Thank you. #[phone] [facility]09-23-2025 Telephone encounter Note* Telephone Encounter - Ivone Salmeron - 02/24/2025 9:30 AM EDT Patient's daughter called in, patient was supposed to have a procedure at [facility] but was denied and he could only come to [facility]. The kidney stone is very large. Please call patient to [facility] care. Thank you. #[phone] [id number] NotePatient Education Material Cardiovascular Low Sodium Diet (2,000 Milligram): Care Instructions Overview Limiting sodium can be an important part of managing some health problems. The most common source of sodium is salt. People get most of the salt in their diet from canned, prepared, and packaged foods. Fast food and restaurant meals also are very high in sodium. Your doctorwill probably limit your sodium to less than 2,000 milligrams (mg) a day. This limit counts all thesodium in prepared and packaged foods and any salt you add to your food. Follow-up care is a owens part of your treatment and safety. Be sure to make and go to all appointments, and call your doctor if you are having problems. It's also a good idea to know your test resultsand keep a list of the medicines you take. How can you care for yourself at home? Read food labels ? Read labels on cans and food packages. The labels tell you how much sodium is in each serving. Make sure that you look at the serving size. If you eat more than the serving size, you have eaten more sodium. ? Food labels also tell you the Percent Daily Value for sodium. Choose products with low Percent Daily Values for sodium. ? Be aware that sodium can come in forms other than salt, including monosodium glutamate (MSG), sodium citrate, and sodium bicarbonate (baking soda). MSG is often added to food. When you eat out, you can sometimes ask for food without MSG or added salt. Buy low-sodium foods ? Buy foods that are labeled unsalted (no salt added), sodium-free (less than 5 mg of sodium per serving), or low-sodium (140 mg or less of sodium per serving). Foods labeled reduced-sodium and lightsodium may still have too much sodium. Be sure to read the label to see how much sodium you are getting. ? Buy fresh vegetables, or frozen vegetables without added sauces. Buy low- sodium versions of canned vegetables, soups, and other canned goods. Prepare low-sodium meals ? Cut back on the amount of salt you use in cooking. This will help you adjust to the taste. Do notadd salt after cooking. One teaspoon of salt has about 2,300 mg of sodium. ? Take the salt shaker off the table. ? Flavor your food with garlic, lemon juice, onion, vinegar, herbs, and spices. Do not use soy sauce, lite soy sauce, steak sauce, onion salt, garlic salt, celery salt, or ketchup on your food. ? Use low-sodium salad dressings, sauces, and ketchup. Or make your own salad dressings and sauces without adding salt. ? Use less salt (or none) when recipes call for it. You can often use half the salt a recipe calls for without losing flavor. Other foods such as rice, pasta, and grains do not need added salt. ? Rinse canned vegetables, and cook them in fresh water. This removes somebut not allof the salt. ? Avoid water that is naturally high in sodium or that has been treated with water softeners, whichadd sodium. If you buy bottled water, read the label and choose a sodium-free brand. Avoid high-sodium foods ? Avoid eating: ? Smoked, cured, salted, and canned meat, fish, and poultry. ? Ham, montoya, hot dogs, and luncheon meats. ? Regular, hard, and processed cheese and regular peanut butter. ? Crackers with salted tops, and other salted snack foods such as pretzels, chips, and salted popcorn. ? Frozen prepared meals, unless labeled low-sodium. ? Canned and dried soups, broths, and bouillon, unless labeled sodium-free or low-sodium. ? Canned vegetables, unless labeled sodium-free or low-sodium. ? Mosotho fries, pizza, tacos, and other fast foods. ? Pickles, olives, ketchup, and other condiments, especially soy sauce, unless labeled sodium-free or low-sodium. Where can you learn more? Go to https://www.healthwise.net/patientEd Enter V843 in the search box to learn more about Low Sodium Diet (2,000 Milligram): Care Instructions. Current as of: February 09, 2021 Content Version: 13.3 ? [employer]. Care instructions adapted under license by your healthcare professional. If you have questions about a medical condition or this instruction, always ask your healthcare professional. [employer] disclaims any warranty or liability for your use of this information. Heart-Healthy Diet: Care Instructions Your Care Instructions A heart-healthy diet has lots of vegetables, fruits, nuts, beans, and whole grains, and is low in salt. It limits foods that are high in saturated fat, such as meats, cheeses, and fried foods. It maybe hard to change your diet, but even small changes can lower your risk of heart attack and heart disease. Follow-up care is a owens part of your treatment and safety. Be sure to make and go to all appointments, and call your doctor if you are having problems. It's also a good idea to know your test resultsand keep a list of the medicines you take. How can you care for yourself at home? Watch your portions ? Use food labels to learn what the recommended servings are for the f (more content not included)...[facility]09-21-2025 AllenJAME INGRAM :1965 [facility]:[id number] Registration Date:02/19/2025 Admission Information Shortness of breath weakness severe decreased exercise tolerance Admit Date/Time:02/20/2025 14:08 EDT Discharge Date 02/22/2025 Admitting Physician - LULA MONTOYA DO Attending Physician - LULA MONTOYA DO Consulting Physician - OLIVER SEAMAN, BONY HASSAN MD, [facility] Primary Care Physician - GRIFFIN LIVE All Diagnoses This Visit Acute congestive heart failure Morbid obesity Poorly controlled diabetes Ureteral stone with hydronephrosis Hypertension Dyspnea tachypnea Volume overload anasarca A-fib with RVR Discharge Medications Unchanged atorvastatin (Lipitor 40 mg oral tablet)1 Tabs Oral DAILY. buPROPion (Wellbutrin SR 100 mg/12 hours oral tablet, extended release)1 Tabs Oral TWICE A DAY. celecoxib (CeleBREX 200 mg oral capsule)1 Capsules Oral TWICE A DAY. ciprofloxacin = Cipro (ciprofloxacin 500 mg oral tablet)1 Tabs Oral EVERY TWELVE HOURS for 7 Days. Refills: 0. DULoxetine (Cymbalta 60 mg oral delayed release capsule)1 Capsules Oral DAILY. (do not crush or chew). gabapentin (Neurontin 400 mg oral capsule)1 Capsules Oral THREE TIMES A DAY. glimepiride (Amaryl 4 mg oral tablet)1 Tabs Oral DAILY. levothyroxine (Synthroid 75 mcg (0.075 mg) oral tablet)1 Tabs Oral DAILY. magnesium gluconate (magnesium gluconate 250 mg oral tablet)1 Tabs Oral DAILY. metFORMIN = Glucophage (metFORMIN 850 mg oral tablet)1 Tabs Oral TWICE A DAY. metoprolol (metoprolol tartrate 37.5 mg oral tablet)1 Tabs Oral TWICE A DAY. mirtazapine (Remeron 15 mg oral tablet)0.5 Tabs Oral AT BEDTIME. multivitamin1 Tabs Oral DAILY. pioglitazone (Actos 45 mg oral tablet)1 Tabs Oral DAILY. tamsulosin (Flomax 0.4 mg oral capsule)1 Capsules Oral DAILY for 30 Days. Refills: 0. traMADol (Ultram 50 mg oral tablet)1 Tabs Oral THREE TIMES A DAY. vitamin A2,400 Microgram Oral DAILY. Hospital Course Acute congestive heart failure I need to get a cardiology consult IV diuretics restart his home-going meds repeat a renal function panel daily monitor the electrolytes and the renal function closely I will take a look at his BNP probably needs an echo need to tune him up for a cystoscopy and urology procedures coming Sunday maintain his oxygen saturations continue with anticoagulation low-salt diet I will check his Accu-Cheks as well continue with all of his other chronic medications thank you 02/20/2025 For now cardiology much appreciated the recommendations has a heart failure with preserved ejectionfraction diastolic failure diastolic dysfunction Candie continue with Lasix losartan has been started so we will keep titrating his meds maintaining his oxygen sat saturations up and continuing with DVT prophylaxis New onset of A-fib RVR overnight and into today increase the metoprolol to 50 mg twice daily and monitor his heart rates Type 2 diabetes he is on glimepiride recommendations to add an SGLT2 inhibitor continuing monitor his blood glucose continue with Cipro for his urinary tract infection and procedure on Sunday as scheduled for it by urology I will medically clear him most likely for that Sunday night so he can have that done and then we will go from there 02/21/2025 I understand he is going to have surgery at the outpatient surgery center and that is going to be Sunday or Sunday probably Sunday specially for the lithotripsy part cardiology medical clearance will need to be obtained I will make sure that tomorrow or Sunday I think he should have all the procedures done on Sunday I am reviewing all of his labs everything was looking better looking good and he feels much better saturations have been good and we will continue with the same course 02/22/2025 Acute heart failure preserved ejection fraction atrial fibrillation blood pressure is under controlsaturations look good I am going to see now if he is going to have it done as an outpatient I will probably go ahead and start the discharge process continue with all other present care and therapy and treatment thank you So far we brought his heart rates under control cleared out his lungs and his volume he was doing much better from that standpoint his lungs were much clear. Finally I reconciled all of his medications. I wrote for all of his pertinent prescriptions. I went ahead and made arrangements for discharge. Discharged him in stable condition discharged the management greater than 30 minutes total time thank you Physical Exam Vitals & Measurements T: 36.4 ?C (Oral) TMIN: 36.4 ?C (Oral) TMAX: 36.5 ?C (Oral) HR: 61 (Monitored) RR: 16 BP: 114/73 SpO2: 91% WT: 165.0 kg Vital Signs: Per nurse's notes. General: Alert, no acute distress. Skin: Warm, dry, pink. Head: Normocephalic, atraumatic. Neck: Supple, trachea midline. Eye: Pupils are equal, round and reactive to light. Cardiovascular: Regular rate and rhythm, normal peripheral per (more content not included)...[facility]09-21-2025 Evaluation + Plan note Extracted from: Title:Progress/SOAP Note Author:VIRGINIA MONTOYA DO [facility] Date:02/22/25 Orders: POC Glucose, Blood, Collected Y/N, Nurse Collect, 02/21/2025 16:09:10 EDT, RT, Routine, 02/21/2025 16:09:10 EDT POC Glucose, Blood, Collected Y/N, Nurse Collect, 02/21/2025 20:32:28 EDT, RT, Routine, 02/21/2025 20:32:28 EDT POC Glucose, Blood, Collected Y/N, Nurse Collect, 02/22/2025 07:24:48 EDT, RT, Routine, 02/22/2025 07:24:48 EDT POC Glucose, Blood, Collected Y/N, Nurse Collect, 02/22/2025 12:14:53 EDT, RT, Routine, 02/22/2025 12:14:53 EDT Acute congestive heart failure I need to get a cardiology consult IV diuretics restart his home-going meds repeat a renal function panel daily monitor the electrolytes and the renal function closely I will take a look at his BNP probably needs an echo need to tune him up for a cystoscopy and urology procedures coming Sunday maintain his oxygen saturations continue with anticoagulation low-salt diet I will check his Accu-Cheks as well continue with all of his other chronic medications thank you 02/20/2025 For now cardiology much appreciated the recommendations has a heart failure with preserved ejection fraction diastolic failure diastolic dysfunction Candie continue with Lasix losartan has been started so we will keep titrating his meds maintaining his oxygen sat saturations up and continuing with DVT prophylaxis New onset of A-fib RVR overnight and into today increase the metoprolol to 50 mg twice daily and monitor his heart rates Type 2 diabetes he is on glimepiride recommendations to add an SGLT2 inhibitor continuing monitor his blood glucose continue with Cipro for his urinary tract infection and procedure on Sunday as scheduled for it by urology I will medically clear him most likely for that Sunday night so he can have that done and then we will go from there 02/21/2025 I understand he is going to have surgery at the outpatient surgery center and that is going to be Sunday or Sunday probably Sunday specially for the lithotripsy part cardiology medical clearance will need to be obtained I will make sure that tomorrow or Sunday I think he should have all the procedures done on Sunday I am reviewing all of his labs everything was looking better looking good and he feels much better saturations have been good and we will continue with the same course 02/22/2025 Acute heart failure preserved ejection fraction atrial fibrillation blood pressure is under control saturations look good I am going to see now if he is going to have it done as an outpatient I will probably go ahead and start the discharge process continue with all other present care and therapy and treatment thank you Extracted from: Title:Progress/SOAP Note Author:VIRGINIA MONTOYA DO [facility] Date:02/21/25 Orders: PLATELET ONLY(PLATELET COUNT ONLY), ROUTINE, 02/21/2025 05:00:00 EDT POC Glucose, Blood, Collected Y/N, Nurse Collect, 02/21/2025 06:54:09 EDT, RT, Routine, 02/21/2025 06:54:09 EDT POC Glucose, Blood, Collected Y/N, Nurse Collect, 02/21/2025 11:18:06 EDT, RT, Routine, 02/21/2025 11:18:06 EDT POC Glucose, Blood, Collected Y/N, Nurse Collect, 02/21/2025 16:09:10 EDT, RT, Routine, 02/21/2025 16:09:10 EDT Acute congestive heart failure I need to get a cardiology consult IV diuretics restart his home-going meds repeat a renal function panel daily monitor the electrolytes and the renal function closely I will take a look at his BNP probably needs an echo need to tune him up for a cystoscopy and urology procedures coming Sunday maintain his oxygen saturations continue with anticoagulation low-salt diet I will check his Accu-Cheks as well continue with all of his other chronic medications thank you 02/20/2025 For now cardiology much appreciated the recommendations has a heart failure with preserved ejection fraction diastolic failure diastolic dysfunction Candie continue with Lasix losartan has been started so we will keep titrating his meds maintaining his oxygen sat saturations up and continuing with DVT prophylaxis New onset of A-fib RVR overnight and into today increase the metoprolol to 50 mg twice daily and monitor his heart rates Type 2 diabetes he is on glimepiride recommendations to add an SGLT2 inhibitor continuing monitor his blood glucose continue with Cipro for his urinary tract infection and procedure on Sunday as scheduled for it by urology I will medically clear him most likely for that Sunday night so he can have that done and then we will go from there 02/21/2025 I understand he is going to have surgery at the outpatient surgery center and that is going to be Sunday or Sunday probably Sunday specially for the lithotripsy part cardiology medical clearance will need to be obtained I will make sure that tomorrow or Sunday I think he should have all the procedures done on Sunday I am reviewing all of his labs everything was looking better looking good and he feels much better saturations have been good and we will continue with the same course Extracted from: Title:Progress/SOAP Note Author:LSETERKEARAFAN AGEEVIRGINIA [facility] Date:02/20/25 Orders: metoprolol(Lopressor = Metoprolol Tartrate), 37.5 mg= 1.5 tabs, ORAL, BID Level of Care Order, 02/20/2025 14:08:00 EDT, Medical Admit as Inpatient POC Glucose, Blood, Collected Y/N, Nurse Collect, 02/19/2025 21:18:22 EDT, RT, Routine, 02/19/2025 21:18:22 EDT POC Glucose, Blood, Collected Y/N, Nurse Collect, 02/20/2025 07:03:06 EDT, RT, Routine, 02/20/2025 07:03:06 EDT POC Glucose, Blood, Collected Y/N, Nurse Collect, 02/20/2025 11:21:08 EDT, RT, Routine, 02/20/2025 11:21:08 EDT POC Glucose, Blood, Collected Y/N, Nurse Collect, 02/20/2025 16:08:44 EDT, RT, Routine, 02/20/2025 16:08:44 EDT Request for Bed Placement, 02/20/2025 14:08:00 EDT, Medical, Admit as Inpatient Acute congestive heart failure I need to get a cardiology consult IV diuretics restart his home-going meds repeat a renal function panel daily monitor the electrolytes and the renal function closely I will take a look at his BNP probably needs an echo need to tune him up for a cystoscopy and urology procedures coming Sunday maintain his oxygen saturations continue with anticoagulation low-salt diet I will check his Accu-Cheks as well continue with all of his other chronic medications thank you 02/20/2025 For now cardiology much appreciated the recommendations has a heart failure with preserved ejection fraction diastolic failure diastolic dysfunction Candie continue with Lasix losartan has been started so we will keep titrating his meds maintaining his oxygen sat saturations up and continuing with DVT prophylaxis New onset of A-fib RVR overnight and into today increase the metoprolol to 50 mg twice daily and monitor his heart rates Type 2 diabetes he is on glimepiride recommendations to add an SGLT2 inhibitor continuing monitor his blood glucose continue with Cipro for his urinary tract infection and procedure on Sunday as scheduled for it by urology I will medically clear him most likely for that Sunday night so he can have that done and then we will go from there Extracted from: Title:SOAP Note: General * Author:Shruthi LINARES PA-C Date:02/20/25 Patient: JAME WALLACE Age: 59 years Sex: Male : 1965 Associated Diagnoses: None Author: TERRIE LINARES PA-C Subjective Follow-up right ureteral stone No acute stone pain or renal colic Voiding without difficulty No hematuria or dysuria No nausea or vomiting He is scheduled for ESWL 02/23 Objective VS/Measurements Vital Signs (last 24 hrs) Last Charted Temp Oral36.4 degC (FEB 20 06:58) Heart Rate ApicalL 55 bpm (FEB 20 08:44) Resp Rate20 br/min (FEB 20 06:58) SBPH 154 mmHg (FEB 20 06:58) DBPH 84 mmHg (FEB 20 06:58) General: Alert and oriented, No acute distress. Respiratory: Supplemental oxygen via nasal cannula. Genitourinary: Bedside urinal with clear yellow urine. Psychiatric: Cooperative, Appropriate mood & affect. Assessment Interpretation of Results Laboratory: Labs (Last four charted values) WBC 7.8(FEB 19) Hgb L 12.3(FEB 18) Hct L 37.0(FEB 18) Plt 178(FEB 19) Na 143(FEB 18) K 4.0(FEB 18) CO2 H 33.0(FEB 18) Cl 102(FEB 18) Cr H 1.2(FEB 18) BUN 21(FEB 19) Glucose Random H 117(FEB 18) Ca 9.2(FEB 19). Plan R proximal ureteral stone - No acute surgical intervention as pain is currently well controlled, no evidence of infection - Will order repeat BMP and CBC to confirm stability of labs - Patient scheduled for R ESWL 02/23, plan to proceed as scheduled as long as medically stable - Continue Flomax - Pain control as needed - Continue Cipro as prescribed, would be reasonable to discharge patient with acute course given pending urologic procedure Sunday Will review labs once finalized. OK for discharge from standpoint with outpatient follow up as scheduled, will make sure surgery scheduling team and surgeon aware of current admission. Addendum by ROLANDO ROPER MD on February 20, 2025 10:20 EDT Exam / procedure done by: PA, SCRIBING MACHINE OPERATOR, reside nt under supervision of attending Physician. Extracted from: Title:Admission H & P Author:LULA MONTOYA DO Date:02/19/25 Orders: acetaminophen, 650 mg= 2 tabs, ORAL, [id number], PRN acetaminophen, 650 mg= 2 tabs, ORAL, [id number], PRN acetaminophen, 650 mg= 2 tabs, ORAL, [id number], PRN acetaminophen-oxycodone(acetaminophen-oxycodone 325 mg-5 mg oral tablet = Percocet), 1 tabs, ORAL, [id number], PRN aspirin(Aspirin Low Dose), 81 mg= 1 tabs, ORAL, DAILY WITH BREAKFAST atorvastatin(Lipitor), 40 mg= 1 tabs, ORAL, DAILY buPROPion(Wellbutrin SR, Zyban (buPROPion SR)), 100 mg= 1 tabs, ORAL, BID celecoxib(CeleBREX), 200 mg= 1 caps, ORAL, BID ciprofloxacin = Cipro, 500 mg= 1 tabs, ORAL, [id number] DULoxetine(Cymbalta), 60 mg= 1 caps, ORAL, DAILY enoxaparin(Lovenox), 40 mg= 0.4 mL, Subcutaneous, QHS furosemide(Lasix), 40 mg= 4 mL, IV Push, BID (DIURETIC) gabapentin(Neurontin), 400 mg= 1 caps, ORAL, TID glimepiride(Amaryl), 4 mg= 1 tabs, ORAL, DAILY WITH BREAKFAST glucagon, 1 mg, IM, PRN, PRN glucose(glucose 15 g/42 mL oral gel), 15 g= 1 packets, ORAL, PRN, PRN glucose(glucose 15 g/42 mL oral gel), 30 g= 2 packets, ORAL, PRN, PRN glucose(Dextrose 50% injection), 12.5 g= 25 mL, IV Push, PRN, PRN glucose(Dextrose 50% injection), 25 g= 50 mL, IV Push, PRN, PRN influenza virus vaccine, inactivated(influenza virus vaccine, inactivated preservative-free trivalent intramuscular suspension), 0.5 mL, IM, DAILY insulin lispro(Humalog coverage), Mild Scale, Subcutaneous, QIDWMHS ketorolac = Toradol, 10 mg= 1 tabs, ORAL, QID, PRN levothyroxine(Synthroid), 75 mcg= 1 tabs, ORAL, DAILY BEFORE BREAKFAST melatonin, 5 mg= 1 tabs, ORAL, [id number], PRN metFORMIN = Glucophage, 850 mg= 1 tabs, ORAL, BIDWM metoprolol(Lopressor = Metoprolol Tartrate), 37.5 mg= 1.5 tabs, ORAL, BID mirtazapine(Remeron), 7.5 mg= 1 tabs, ORAL, QHS multivitamin, 1 tabs, ORAL, DAILY naloxone = Narcan, 0.4 mg= 1 mL, IV Push, PRN, PRN ondansetron(ondansetron 4 mg oral tablet, disintegrating = Zofran), 4 mg= 1 tabs, ORAL, [id number], PRN pioglitazone(Actos), 45 mg= 3 tabs, ORAL, DAILY tamsulosin(Flomax), 0.4 mg= 1 caps, ORAL, DAILY traMADol(Ultram), 50 mg= 1 tabs, ORAL, TID Ambulate, 02/19/2025 02:22:00 EDT, In hallway three times daily, TID, Do not change this order to Constant. Ambulation activity/distance documentation is required 3x/day Ambulate, 02/19/2025 02:22:00 EDT, as tolerated, TID, in cee, notify physician if patient unable to ambulate Blood Glucose Monitoring POC, 02/19/2025 02:22:00 EDT, Routine, QIDACHS, If Regular Humalin Insulin Blood Glucose Monitoring POC, 02/19/2025 02:22:00 EDT, STAT, PRN, if signs and symptoms of hypoglycemia are present CBCWD, ROUTINE, 02/19/2025 02:32:00 EDT Communication CONSTANT Order, 02/19/2025 02:22:00 EDT, Constant Order, For two blood glucose readings in 24 hours, of 200 or greater,, contact physician to advance sliding scale. Communication CONSTANT Order, 02/21/2025 08:00:00 EDT, Constant Order, Check PLT count on Day 2 after initiation of Heparin or Lovenox, Notify Physician if PLTs less than 100,000 Repeat PLT count every 3 days. Communication CONSTANT Order, 02/19/2025 02:22:00 EDT, Constant Order, STAT EKG for Chest Pain, STAT ABGs for Acute Respiratory Distress, STAT Potassium/Magnesium for any significant change in condition/rhythm Communication CONSTANT Order, 02/19/2025 02:22:00 EDT, Constant Order, Current ACLS Provider may, Initiate [employer] Advanced Cardiac Life support Algorithm per patient code status COMPMETA(CMP), ROUTINE, 02/19/2025 02:33:00 EDT Consult Physician(Physician Consult), 02/19/2025 02:33:00 EDT, ZARIA SEAMAN, Paolo VILLARREAL CHF Consult Physician(Physician Consult), 02/19/2025 02:33:00 EDT, OLIVER SEAMAN, BONY, 8mm ureteral stone Diet Order, 02/19/2025 02:28:00 EDT, Low Sodium Heart Healthy Level of Care Order, 02/19/2025 01:55:00 EDT, Medical Outpatient with Observation Services, LULA MONTOYA DO [facility] Task(If pt has Saline Lock), If pt has Saline Lock, 02/19/2025 02:22:00 EDT, or if on Telemetry, place orderset for Saline Lock Peripheral with Saline Flush QShift and PRN to display NS flushes on AUG, 02/19/2025 02:22:00 EDT, 02/19/2025 02:22:00 EDT Notify Provider, 02/19/2025 02:22:00 EDT, Constant Order, Call physician treating blood glucose for any of the following: Oxygen Therapy, 02/19/2025 02:22:00 EDT, Nasal Cannula, Constant Order, Dyspnea with Dx COPD, 2-5 L NC PRN (if pt has COPD, oxygen at 2 L NC) PLATELET ONLY(PLATELET COUNT ONLY), ROUTINE, 02/21/2025 05:00:00 EDT PLATELET ONLY(PLATELET COUNT ONLY), ROUTINE, 02/24/2025 05:00:00 EDT Request for Armband, 02/19/2025 06:51:00 EDT, [id number], Unable to scan Request for Bed Placement, 02/19/2025 01:55:00 EDT, Medical, Outpatient with Observation Services, LULA MONTOYA DO Telemetry, Reason for Telemetry Other - Add to Other Reason Box, New onset CHF, Constant Order, CM Telemetry Turn Cough Deep Breathe, 02/19/2025 02:46:00 EDT, Constant Order, Q2H Vital Signs, 02/19/2025 02:22:00 EDT, Constant Order, per unit routine, PRN, include Pulse Ox with all VS Weight, 02/20/2025 04:00:00 EDT, [id number] Acute congestive heart failure I need to get a cardiology consult IV diuretics restart his home-going meds repeat a renal function panel daily monitor the electrolytes and the renal function closely I will take a look at his BNP probably needs an echo need to tune him up for a cystoscopy and urology procedures coming Sunday maintain his oxygen saturations continue with anticoagulation low-salt diet I will check his Accu-Cheks as well continue with all of his other chronic medications thank you Future Appointments Appointment Date:02/27/2025 03:30:00 PM Scheduled Provider:LIMA COLE CNP Location:[place] [address] Appointment Type:Hospital Follow Up [facility] 09-21-2025 Progress note JAME WALLACE :1965 Registration Date:02/19/2025 Subjective Seen today doing much better IV Lasix cleared by cardiology for urology procedures Heart rates are under control he is not symptomatic no shortness of breath doing better and I thinkhe is cleared at this point for the procedures have to see if he is going to have it done here or he asked to be discharged and then follow-up as an outpatient for his urology procedures Review of Systems Constitutional: no fever, no chills, no sweats, no weakness Respiratory: no shortness of breath, no cough Cardiovascular: no chest pain Additional ROS info: Except as noted in the above Review of Systems and in the History of Present Illness all other systems have been reviewed and are negative or noncontributory. Objective Vitals & Measurements T: 36.4 C (Oral) TMIN: 36.4 C (Oral) TMAX: 36.5 C (Oral) HR: 65 (Monitored) RR: 16 BP: 114/73 SpO2:97% WT: 165.0 kg Physical Exam Vital Signs: Per nurse's notes. General: Alert, no acute distress. Skin: Warm, dry, pink. Head: Normocephalic, atraumatic. Neck: Supple, trachea midline. Eye: Pupils are equal, round and reactive to light. Cardiovascular: Regular rate and rhythm, normal peripheral perfusion. Respiratory: Lungs are clear to auscultation, respirations are non-labored. Psychiatric: Cooperative. Neurological: Alert and oriented to person, place, time, and situation. Medications Inpatient acetaminophen, 650 mg= 2 tabs, ORAL, [id number], PRN acetaminophen, 650 mg= 2 tabs, ORAL, [id number], PRN acetaminophen, 650 mg= 2 tabs, ORAL, [id number], PRN acetaminophen-oxycodone(acetaminophen-oxycodone 325 mg-5 mg oral tablet = Percocet), 1 tabs, ORAL, [id number], PRN apixaban(Eliquis), 5 mg= 1 tabs, ORAL, ONCE aspirin(Aspirin Low Dose), 81 mg= 1 tabs, ORAL, DAILY WITH BREAKFAST atorvastatin(Lipitor), 40 mg= 1 tabs, ORAL, DAILY buPROPion(Wellbutrin SR, Zyban (buPROPion SR)), 100 mg= 1 tabs, ORAL, BID celecoxib(CeleBREX), 200 mg= 1 caps, ORAL, BID ciprofloxacin = Cipro, 500 mg= 1 tabs, ORAL, [id number] digoxin, 0.25 mg= 1 mL, IV Push, ONCE DULoxetine(Cymbalta), 60 mg= 1 caps, ORAL, DAILY furosemide, 40 mg= 1 tabs, ORAL, DAILY BEFORE BREAKFAST gabapentin(Neurontin), 400 mg= 1 caps, ORAL, TID glimepiride(Amaryl), 4 mg= 1 tabs, ORAL, DAILY WITH BREAKFAST glucagon, 1 mg, IM, PRN, PRN glucose(glucose 15 g/42 mL oral gel), 15 g= 1 packets, ORAL, PRN, PRN glucose(glucose 15 g/42 mL oral gel), 30 g= 2 packets, ORAL, PRN, PRN glucose(Dextrose 50% injection), 12.5 g= 25 mL, IV Push, PRN, PRN glucose(Dextrose 50% injection), 25 g= 50 mL, IV Push, PRN, PRN insulin lispro(Humalog coverage), Mild Scale, Subcutaneous, QIDWMHS ketorolac = Toradol, 10 mg= 1 tabs, ORAL, QID, PRN levothyroxine(Synthroid), 75 mcg= 1 tabs, ORAL, DAILY BEFORE BREAKFAST melatonin, 5 mg= 1 tabs, ORAL, [id number], PRN metFORMIN = Glucophage, 850 mg= 1 tabs, ORAL, BIDWM metoprolol(Lopressor = Metoprolol Tartrate), 5 mg= 5 mL, IV Push, [id number], PRN metoprolol(Lopressor = Metoprolol Tartrate), 50 mg= 1 tabs, ORAL, BID mirtazapine(Remeron), 7.5 mg= 1 tabs, ORAL, QHS multivitamin, 1 tabs, ORAL, DAILY naloxone = Narcan, 0.4 mg= 1 mL, IV Push, PRN, PRN ondansetron(ondansetron 4 mg oral tablet, disintegrating = Zofran), 4 mg= 1 tabs, ORAL, [id number], PRN tamsulosin(Flomax), 0.4 mg= 1 caps, ORAL, DAILY traMADol(Ultram), 50 mg= 1 tabs, ORAL, TID valsartan, 80 mg= 1 tabs, ORAL, BID Lab Results Test Name Test Result Date/Time POC Glucose 159 mg/dL 02/22/2025 12:14 EDT POC Glucose 123 mg/dL 02/22/2025 07:24 EDT POC Glucose 161 mg/dL 02/21/2025 20:32 EDT POC Glucose 81 mg/dL 02/21/2025 16:09 EDT Assessment/Plan This Visit Diagnosis Orders: POC Glucose, Blood, Collected Y/N, Nurse Collect, 02/21/2025 16:09:10 EDT, RT, Routine, 02/21/2025 16:09:10 EDT POC Glucose, Blood, Collected Y/N, Nurse Collect, 02/21/2025 20:32:28 EDT, RT, Routine, 02/21/2025 20:32:28 EDT POC Glucose, Blood, Collected Y/N, Nurse Collect, 02/22/2025 07:24:48 EDT, RT, Routine, 02/22/2025 07:24:48 EDT POC Glucose, Blood, Collected Y/N, Nurse Collect, 02/22/2025 12:14:53 EDT, RT, Routine, 02/22/2025 12:14:53 EDT Acute congestive heart failure I need to get a cardiology consult IV diuretics restart his home-going meds repeat a renal function panel daily monitor the electrolytes and the renal function closely I will take a look at his BNP probably needs an echo need to tune him up for a cystoscopy and urology procedures coming Sunday maintain his oxygen saturations continue with anticoagulation low-salt diet I will check his Accu-Cheks as well continue with all of his other chronic medications thank you 02/20/2025 For now cardiology much appreciated the recommendations has a heart failure with preserved ejectionfraction diastolic failure diastolic dysfunction Candie continue with Lasix losartan has been started so we will keep titrating his meds maintaining his oxygen sat saturations up and continuing with DVT prophylaxis New onset of A-fib RVR overnight and into today increase the metoprolol to 50 mg twice daily and monitor his heart rates Type 2 diabetes he is on glimepiride recommendations to add an SGLT2 inhibitor continuing monitor his blood glucose continue with Cipro for his urinary tract infection and procedure on Sunday as scheduled for it by urology I will medically clear him most likely for that Sunday night so he can have that done and then we will go from there 02/21/2025 I understand he is going to have surgery at the outpatient surgery center and that is going to be Sunday or Sunday probably Sunday specially for the lithotripsy part cardiology medical clearance will need to be obtained I will make sure that tomorrow or Sunday I think he should have all the procedures done on Sunday I am reviewing all of his labs everything was looking better looking good and he feels much better saturations have been good and we will continue with the same course 02/22/2025 Acute heart failure preserved ejection fraction atrial fibrillation blood pressure is under controlsaturations look good I am going to see now if he is going to have it done as an outpatient I will probably go ahead and start the discharge process continue with all other present care and therapy and treatment thank you [facility]09-21-2025 Progress note JAME WALLACE :1965 Registration Date:02/19/2025 [facility] IMPRESSION: 1. HFpEF, acute 2. Atrial fibrillation, paroxysmal 3. Nephrolithiasis 4. Hypertension PLAN: 1. Maintaining NSR; continue metoprolol; will initiate apixaban when safe after urologic procedure 2. Transition to oral lasix 3. Will need sleep study as outpatient 4. May proceed with urologic procedure tomorrow at low CV risk - INTERVAL HISTORY: resting comfortably on room air MEDS: reviewed from Provider Home Page PHYSICAL EXAM: Vital Signs (last 24 hrs) Last Charted Temp Oral 36.5 degC (FEB 22:) Heart Rate Peripheral L 57 bpm (FEB 22:) Resp Rate 18 br/min (FEB 22) SBP 118 mmHg (FEB 22:) DBP 76 mmHg (FEB 22:) General: Stable, with no apparent distress. Neck: JVP 7cm @ 45deg. No carotid bruits. CV: RRR no MRG; Normal S1S2; non-sustained, non-displaced PMI. Lungs: CTAx2. Abdomen: Benign. Extremities: No clubbing, cyanosis, or edema. Intact peripheral pulses. I/O's and DAILY WEIGHTS Default ECG/Telemetry: NSR with no acute ischemic changes Radiology: CXR without infiltrate or effusion Labs [facility]09-20-2025 Progress note JAME WALLACE :1965 Registration Date:02/19/2025 Subjective Seen today feeling much better he is to have it done at the outpatient surgery center shockwave lithotripsy and a right ureteral stent cystoscopy so I will probably take him through on Sunday discharge him and then on Sunday he will have all of his procedures and I think he will be ready Review of Systems Constitutional: no fever, no chills, no sweats, no weakness Respiratory: no shortness of breath, no cough Cardiovascular: no chest pain Additional ROS info: Except as noted in the above Review of Systems and in the History of Present Illness all other systems have been reviewed and are negative or noncontributory. Objective Vitals & Measurements T: 36.4 C (Oral) TMIN: 36.4 C (Oral) TMAX: 36.7 C (Oral) HR: 62 (Peripheral) RR: 16 BP: 124/77 SpO2: 93% WT: 165.7 kg Physical Exam Vital Signs: Per nurse's notes. General: Alert, no acute distress. Skin: Warm, dry, pink. Head: Normocephalic, atraumatic. Neck: Supple, trachea midline. Eye: Pupils are equal, round and reactive to light. Cardiovascular: Regular rate and rhythm, normal peripheral perfusion. Respiratory: Lungs are clear to auscultation, respirations are non-labored. Psychiatric: Cooperative. Neurological: Alert and oriented to person, place, time, and situation. Medications Inpatient acetaminophen, 650 mg= 2 tabs, ORAL, [id number], PRN acetaminophen, 650 mg= 2 tabs, ORAL, [id number], PRN acetaminophen, 650 mg= 2 tabs, ORAL, [id number], PRN acetaminophen-oxycodone(acetaminophen-oxycodone 325 mg-5 mg oral tablet = Percocet), 1 tabs, ORAL, [id number], PRN apixaban(Eliquis), 5 mg= 1 tabs, ORAL, ONCE aspirin(Aspirin Low Dose), 81 mg= 1 tabs, ORAL, DAILY WITH BREAKFAST atorvastatin(Lipitor), 40 mg= 1 tabs, ORAL, DAILY buPROPion(Wellbutrin SR, Zyban (buPROPion SR)), 100 mg= 1 tabs, ORAL, BID celecoxib(CeleBREX), 200 mg= 1 caps, ORAL, BID ciprofloxacin = Cipro, 500 mg= 1 tabs, ORAL, [id number] digoxin, 0.25 mg= 1 mL, IV Push, ONCE DULoxetine(Cymbalta), 60 mg= 1 caps, ORAL, DAILY furosemide(Lasix), 20 mg= 2 mL, IV Push, DAILY gabapentin(Neurontin), 400 mg= 1 caps, ORAL, TID glimepiride(Amaryl), 4 mg= 1 tabs, ORAL, DAILY WITH BREAKFAST glucagon, 1 mg, IM, PRN, PRN glucose(glucose 15 g/42 mL oral gel), 15 g= 1 packets, ORAL, PRN, PRN glucose(glucose 15 g/42 mL oral gel), 30 g= 2 packets, ORAL, PRN, PRN glucose(Dextrose 50% injection), 12.5 g= 25 mL, IV Push, PRN, PRN glucose(Dextrose 50% injection), 25 g= 50 mL, IV Push, PRN, PRN insulin lispro(Humalog coverage), Mild Scale, Subcutaneous, QIDWMHS ketorolac = Toradol, 10 mg= 1 tabs, ORAL, QID, PRN levothyroxine(Synthroid), 75 mcg= 1 tabs, ORAL, DAILY BEFORE BREAKFAST melatonin, 5 mg= 1 tabs, ORAL, [id number], PRN metFORMIN = Glucophage, 850 mg= 1 tabs, ORAL, BIDWM metoprolol(Lopressor = Metoprolol Tartrate), 5 mg= 5 mL, IV Push, [id number], PRN metoprolol(Lopressor = Metoprolol Tartrate), 50 mg= 1 tabs, ORAL, BID mirtazapine(Remeron), 7.5 mg= 1 tabs, ORAL, QHS multivitamin, 1 tabs, ORAL, DAILY naloxone = Narcan, 0.4 mg= 1 mL, IV Push, PRN, PRN ondansetron(ondansetron 4 mg oral tablet, disintegrating = Zofran), 4 mg= 1 tabs, ORAL, [id number], PRN tamsulosin(Flomax), 0.4 mg= 1 caps, ORAL, DAILY traMADol(Ultram), 50 mg= 1 tabs, ORAL, TID valsartan, 80 mg= 1 tabs, ORAL, BID Lab Results Test Name Test Result Date/Time Platelet 212 x10^3/uL 02/21/2025 07:20 EDT POC Glucose 81 mg/dL 02/21/2025 16:09 EDT POC Glucose 239 mg/dL 02/21/2025 11:18 EDT POC Glucose 114 mg/dL 02/21/2025 06:54 EDT Assessment/Plan This Visit Diagnosis Orders: PLATELET ONLY(PLATELET COUNT ONLY), ROUTINE, 02/21/2025 05:00:00 EDT POC Glucose, Blood, Collected Y/N, Nurse Collect, 02/21/2025 06:54:09 EDT, RT, Routine, 02/21/2025 06:54:09 EDT POC Glucose, Blood, Collected Y/N, Nurse Collect, 02/21/2025 11:18:06 EDT, RT, Routine, 02/21/2025 11:18:06 EDT POC Glucose, Blood, Collected Y/N, Nurse Collect, 02/21/2025 16:09:10 EDT, RT, Routine, 02/21/2025 16:09:10 EDT Acute congestive heart failure I need to get a cardiology consult IV diuretics restart his home-going meds repeat a renal function panel daily monitor the electrolytes and the renal function closely I will take a look at his BNP probably needs an echo need to tune him up for a cystoscopy and urology procedures coming Sunday maintain his oxygen saturations continue with anticoagulation low-salt diet I will check his Accu-Cheks as well continue with all of his other chronic medications thank you 02/20/2025 For now cardiology much appreciated the recommendations has a heart failure with preserved ejectionfraction diastolic failure diastolic dysfunction Candie continue with Lasix losartan has been started so we will keep titrating his meds maintaining his oxygen sat saturations up and continuing with DVT prophylaxis New onset of A-fib RVR overnight and into today increase the metoprolol to 50 mg twice daily and monitor his heart rates Type 2 diabetes he is on glimepiride recommendations to add an SGLT2 inhibitor continuing monitor his blood glucose continue with Cipro for his urinary tract infection and procedure on Sunday as scheduled for it by urology I will medically clear him most likely for that Sunday night so he can have that done and then we will go from there 02/21/2025 I understand he is going to have surgery at the outpatient surgery center and that is going to be Sunday or Sunday probably Sunday specially for the lithotripsy part cardiology medical clearance will need to be obtained I will make sure that tomorrow or Sunday I think he should have all the procedures done on Sunday I am reviewing all of his labs everything was looking better looking good and he feels much better saturations have been good and we will continue with the same course [facility]09-20-2025 Hospital Discharge instructions Patient Education 02/21/2025 16:10:35 Low Sodium Diet Low Sodium Diet (2,000 Milligram): Care Instructions Overview Limiting sodium can be an important part of managing some health problems. The most common source of sodium is salt. People get most of the salt in their diet from canned, prepared, and packaged foods. Fast food and restaurant meals also are very high in sodium. Your doctorwill probably limit your sodium to less than 2,000 milligrams (mg) a day. This limit counts all thesodium in prepared and packaged foods and any salt you add to your food. Follow-up care is a owens part of your treatment and safety. Be sure to make and go to all appointments, and call your doctor if you are having problems. It's also a good idea to know your test resultsand keep a list of the medicines you take. How can you care for yourself at home? Read food labels Read labels on cans and food packages. The labels tell you how much sodium is in each serving. Makesure that you look at the serving size. If you eat more than the serving size, you have eaten more sodium. Food labels also tell you the Percent Daily Value for sodium. Choose products with low Percent Daily Values for sodium. Be aware that sodium can come in forms other than salt, including monosodium glutamate (MSG), sodium citrate, and sodium bicarbonate (baking soda). MSG is often added to food. When you eat out,you can sometimes ask for food without MSG or added salt. Buy low-sodium foods Buy foods that are labeled unsalted (no salt added), sodium-free (less than 5 mg of sodium per serving), or low-sodium (140 mg or less of sodium per serving). Foods labeled reduced-sodium andlight sodium may still have too much sodium. Be sure to read the label to see how much sodium youare getting. Buy fresh vegetables, or frozen vegetables without added sauces. Buy low-sodium versions of canned vegetables, soups, and other canned goods. Prepare low-sodium meals Cut back on the amount of salt you use in cooking. This will help you adjust to the taste. Do not add salt after cooking. One teaspoon of salt has about 2,300 mg of sodium. Take the salt shaker off the table. Flavor your food with garlic, lemon juice, onion, vinegar, herbs, and spices. Do not use soy sauce,lite soy sauce, steak sauce, onion salt, garlic salt, celery salt, or ketchup on your food. Use low-sodium salad dressings, sauces, and ketchup. Or make your own salad dressings and sauces without adding salt. Use less salt (or none) when recipes call for it. You can often use half the salt a recipe calls for without losing flavor. Other foods such as rice, pasta, and grains do not need added salt. Rinse canned vegetables, and cook them in fresh water. This removes some but not all of the salt. Avoid water that is naturally high in sodium or that has been treated with water softeners, which add sodium. If you buy bottled water, read the label and choose a sodium-free brand. Avoid high-sodium foods Avoid eating: Smoked, cured, salted, and canned meat, fish, and poultry. Ham, montoya, hot dogs, and luncheon meats. Regular, hard, and processed cheese and regular peanut butter. Crackers with salted tops, and other salted snack foods such as pretzels, chips, and salted popcorn. Frozen prepared meals, unless labeled low-sodium. Canned and dried soups, broths, and bouillon, unless labeled sodium-free or low-sodium. Canned vegetables, unless labeled sodium-free or low-sodium. Mosotho fries, pizza, tacos, and other fast foods. Pickles, olives, ketchup, and other condiments, especially soy sauce, unless labeled sodium-free orlow-sodium. Where can you learn more? Go to https://www.Harir.net/patientEd Enter V843 in the search box to learn more about Low Sodium Diet (2,000 Milligram): Care Instructions. Current as of: February 09, 2021 Content Version: 13.3 [employer]. Care instructions adapted under license by your healthcare professional. If you have questions about a medical condition or this instruction, always ask your healthcare professional. [employer] disclaims any warranty or liability for your use of this information. 02/21/2025 16:10:35 Healthy Diet: Heart Heart-Healthy Diet: Care Instructions Your Care Instructions A heart-healthy diet has lots of vegetables, fruits, nuts, beans, and whole grains, and is low in salt. It limits foods that are high in saturated fat, such as meats, cheeses, and fried foods. It maybe hard to change your diet, but even small changes can lower your risk of heart attack and heart disease. Follow-up care is a owens part of your treatment and safety. Be sure to make and go to all appointments, and call your doctor if you are having problems. It's also a good idea to know your test resultsand keep a list of the medicines you take. How can you care for yourself at home? Watch your portions Use food labels to learn what the recommended servings are for the foods you eat. Eat only the number of calories you need to stay at a healthy weight. If you need to lose weight, eat fewer calories than your body stephen (through exercise and other physical activity). Eat more fruits and vegetables Eat a variety of fruit and vegetables every day. Dark green, deep orange, red, or yellow fruits andvegetables are especially good for you. Examples include spinach, carrots, peaches, and berries. Keep carrots, celery, and other veggies handy for snacks. Buy fruit that is in season and store it where you can see it so that you will be tempted to eat it. Cook dishes that have a lot of veggies in them, such as stir-fries and soups. Limit saturated fat Read food labels, and try to avoid saturated fats. They increase your risk of heart disease. Use olive or canola oil when you cook. Bake, broil, grill, or steam foods instead of frying them. Choose lean meats instead of high-fat meats such as hot dogs and sausages. Cut off all visible fat when you prepare meat. Eat fish, skinless poultry, and meat alternatives such as soy products instead of high-fat meats. Soy products, such as tofu, may be especially good for your heart. Choose low-fat or fat-free milk and dairy products. Eat foods high in fiber Eat a variety of grain products every day. Include whole-grain foods that have lots of fiber and nutrients. Examples of whole-grain foods include oats, whole wheat bread, and brown rice. Buy whole-grain breads and cereals, instead of white bread or pastries. Limit salt and sodium Limit how much salt and sodium you eat to help lower your blood pressure. Taste food before you salt it. Add only a little salt when you think you need it. With time, your taste buds will adjust to less salt. Eat fewer snack items, fast foods, and other high-salt, processed foods. Check food labels for the amount of sodium in packaged foods. Choose low-sodium versions of canned goods (such as soups, vegetables, and beans). Limit sugar Limit drinks and foods with added sugar. These include candy, desserts, and soda pop. Limit alcohol Limit alcohol to no more than 2 drinks a day for men and 1 drink a day for women. Too much alcohol can cause health problems. When should you call for help? Watch closely for changes in your health, and be sure to contact your doctor if: You would like help planning heart-healthy meals. Where can you learn more? Go to https://www.Harir.net/patientEd Enter V137 in the search box to learn more about Heart-Healthy Diet: Care Instructions. Current as of: February 09, 2021 Content Version: 13.3 [employer]. Care instructions adapted under license by your healthcare professional. If you have questions about a medical condition or this instruction, always ask your healthcare professional. [employer] disclaims any warranty or liability for your use of this information. 02/20/2025 16:18:54 Heart Failure: Restricting Fluids: General Info Learning About Restricting Fluids When You Have Heart Failure Why is it important to limit fluids when you have heart failure? With heart failure, having too much fluid in your body can lower sodium levels in the blood. It canalso cause symptoms such as swelling. Limiting fluids, if your doctor tells you to, can help balance your body's sodium level. It may also help you feel better. How can you care for yourself at home? Find a way of tracking the fluids you take in that works for you. Here are two methods you can try: Write down how much you drink throughout the day. Keep a container filled with the amount of liquid allowed for the day. As you drink liquids during the day, such as a 6-ounce cup of coffee, pour that same amount out of the container. When the container is empty, you've had your liquid for the day. Count any foods that will melt (such as ice cream, gelatin, or flavored ice treats) or liquid foods(such as soup) as part of your fluids for the day. Also count the liquid in canned fruits and vegetables as part of your daily intake, or drain them well before serving. Space your liquids throughout the day. Then you won't be tempted to drink more than the amount yourdoctor recommends. To relieve thirst without taking in extra water, try chewing gum, sucking on hard candy (sugarless if you have diabetes), or rinsing your mouth with water and spitting it out. Where can you learn more? Go to https://www.Harir.SendTask/patientEd Enter F350 in the search box to learn more about Learning About Restricting Fluids When You Have Heart Failure. Current as of: June 13, 2021 Content Version: 13.3 [employer]. Care instructions adapted under license by your healthcare professional. If you have questions about a medical condition or this instruction, always ask your healthcare professional. [employer] disclaims any warranty or liability for your use of this information. 02/20/2025 16:18:54 Heart Failure: Medicines Medicines for Heart Failure: Care Instructions Your Care Instructions Most people with heart failure are helped by taking several medicines to protect their heart. Thesemedicines can help you feel better and live longer. It is important to take all your medicines exactly as prescribed to get the best results. They can also cause side effects. If you think that any of your medicines are causing side effects, talk with your doctor. Follow-up care is a owens part of your treatment and safety. Be sure to make and go to all appointments. Call your doctor if you are having problems. It's also a good idea to know your test results andkeep a list of the medicines you take. What medicines are used for heart failure? Aldosterone receptor antagonists. These are a type of diuretic. They make the kidneys get rid of extra fluid. Angiotensin-converting enzyme (AYAD) inhibitors help blood flow. They relax the blood vessels and lower your blood pressure. The heart can then pump more blood through your body without working harder. Angiotensin II receptor blockers (ARBs) work like AYAD inhibitors. Some people use them instead. Angiotensin receptor neprilysin inhibitor (ARNI) medicine works like ARBs and AYAD inhibitors. Some people take an ARNI medicine instead. Beta-blockers can slow the heart rate and decrease blood pressure. Digoxin relieves symptoms in some people with heart failure. Diuretics reduce swelling. They do this by helping the kidneys get rid of excess fluid. They are also called water pills. Hydralazine. This may be taken with a nitrate to widen blood vessels. It can lower blood pressure and reduce the workload on the heart. Ivabradine slows the heart rate. SGLT2 inhibitors help remove extra glucose through the urine. What should you know about these medicines? This is not a complete list of medicines used for heart failure. If you have questions about your medicine, ask your doctor or pharmacist. AYAD inhibitors Before you start to take an AYAD inhibitor, talk to your doctor. Tell him or her if: You take any anti-inflammatory medicines. These include ibuprofen (Advil, Motrin) and naproxen (Aleve). You take antacids, potassium pills or a salt substitute, or lithium. You take a diuretic. You are or or you plan to get . You have kidney disease. Side effects include: A dry cough. If the cough is bad enough to make you stop the medicine, talk to your doctor. You mayneed to take a different one. Feeling lightheaded. This may happen when you stand up too fast. It usually gets better with time. Angiotensin II receptor blockers (ARBs) Before you start to take an ARB, talk to your doctor. Tell him or her if: You take any anti-inflammatory medicines. These include ibuprofen (Advil, Motrin) and naproxen (Aleve). You take antacids, potassium pills or a salt substitute, or lithium. You have kidney disease. You take a diuretic. You are or or you plan to get . Side effects include: Feeling lightheaded or dizzy. These are the most common side effects. Angiotensin receptor neprilysin inhibitor (ARNI) Before you start to take an ARNI, talk to your doctor. Tell him or her if: You take any anti-inflammatory medicines. These include ibuprofen (Advil, Motrin) and naproxen (Aleve). You take antacids, potassium pills or a salt substitute, or lithium. You take an AYAD inhibitor or an ARB. You have kidney or liver problems. You take a diuretic. You are or or you plan to get . Side effects include: Feeling lightheaded or dizzy. These are the most common side effects. Diuretics (water pills) Before you start to take a diuretic, talk to your doctor. Tell him or her if: You take lithium or anti-inflammatory medicines such as Advil or Aleve. Side effects include: Urinating often. Ask your doctor about timing these pills so that you don't have to use the bathroom at a bad time. Muscle cramps. This may mean that you are losing too much potassium. It is an important mineral. Call your doctor if you get muscle cramps. Tender breasts. This may occur in men who take spironolactone. Call your doctor if you get tender breasts that bother you. Beta-blockers Before you start to take a beta-jared, talk to your doctor. Tell him or her if: You have asthma or diabetes. Side effects include: Feeling dizzy or tired. This usually gets better with time. Digoxin Before you start to take digoxin, talk to your doctor. Tell him or her if: You have kidney disease. You take a diuretic or other medicines. This includes iwqo-aoj-hgqgzgj medicines. Side effects include: Nausea or vomiting. Confusion, changes in vision, a racing or slowed heartbeat, or dizziness. Call your doctor right away if you have any of these side effects. Where can you learn more? Go to https://www.Harir.net/patientEd Enter F132 in the search box to learn more about Medicines for Heart Failure: Care Instructions. Current as of: June 13, 2021 Content Version: 13.3 [employer]. Care instructions adapted under license by your healthcare professional. If you have questions about a medical condition or this instruction, always ask your healthcare professional. [employer] disclaims any warranty or liability for your use of this information. 02/20/2025 16:18:54 Heart Failure: Managing Other Conditions Managing Other Conditions When You Have Heart Failure: Care Instructions Your Care Instructions All the systems in your body rely on each other to work properly. Heart failure has effects all through your body that can lead to other problems, such as kidney disease. The reverse is also true. A condition like diabetes or lung disease can damage or stress your heart and cause heart failure. Managing any other problems can help reduce your heart's workload and make your heart failure better. Conditions that commonly cause or occur along with heart failure include high blood pressure, diabetes, COPD, high cholesterol, kidney problems, and anemia. Follow-up care is a owens part of your treatment and safety. Be sure to make and go to all appointments, and call your doctor if you are having problems. It's also a good idea to know your test resultsand keep a list of the medicines you take. How can you care for yourself at home? Steps to help with heart failure and other problems Eat less salt (sodium). This helps keep fluid from building up. It may help you feel better. Limiting sodium can also help if you have high blood pressure or kidney disease. Watch your fluid intake if your doctor tells you to. Reducing fluids can keep your sodium level in balance and may help you feel better. Get regular exercise. Regular, moderate exercise, such as walking, helps your heart. It can also help lower your blood pressure, lower stress, and help you lose weight. Lose weight if you are overweight. Losing weight can help you manage diabetes and lower your blood pressure and cholesterol level. Stop smoking. Smoking stresses your lungs, interferes with healing, and can make heart failure worse. Limit or avoid alcohol. Excess alcohol can cause health problems such as increased blood pressure. Ask your doctor how much, if any, is safe. If you think you might have a problem with alcohol or drug use, talk to your doctor. If your doctor has not set you up with a cardiac rehabilitation (rehab) program, talk to him or herabout whether that is right for you. Cardiac rehab includes exercise, help with diet and lifestyle changes, and emotional support. To stay as healthy as possible Work closely with your doctor. Have all your tests, and go to all your appointments. Take your medicines exactly as prescribed. You will take medicines to treat the other conditions you have along with heart failure. It can be hard to balance the treatment for all your conditions. You will need to have follow-up tests to make sure that all your medicines are working well together. Talk to your doctor if you have any problems with your medicine. Keep all your doctors informed about your health problems and all the medicines you take for them. Medicines that can treat one condition may make another condition worse. Talk to your doctor before you take any vitamins, cosg-luf-tfhslav drugs, or herbal products. Do not take aspirin, ibuprofen (Advil, Motrin), or naproxen (Aleve) unless you talk to your doctor first.They could make your heart failure and other problems worse. When should you call for help? Call 911 anytime you think you may need emergency care. For example, call if: You have symptoms of sudden heart failure, such as: Severe trouble breathing. Coughing up pink, foamy mucus. A new irregular or rapid heartbeat. You have symptoms of a heart attack. These may include: Chest pain or pressure, or a strange feeling in the chest. Sweating. Shortness of breath. Nausea or vomiting. Pain, pressure, or a strange feeling in the back, neck, jaw, or upper belly or in one or both shoulders or arms. Lightheadedness or sudden weakness. A fast or irregular heartbeat. After you call 911, the pleating machine operator may tell you to chew 1 adult-strength or 2 to 4 low-dose aspirin. Wait for an ambulance. Do not try to drive yourself. Call your doctor now or seek immediate medical care if: You have new or increased shortness of breath. You are dizzy or lightheaded, or you feel like you may faint. You have sudden weight gain, such as more than 2 to 3 pounds in a day or 5 pounds in a week. (Your doctor may suggest a different range of weight gain.) You have increased swelling in your legs, ankles, or feet. You are suddenly so tired or weak that you cannot do your usual activities. Watch closely for changes in your health, and be sure to contact your doctor if you develop new symptoms. Where can you learn more? Go to https://www.Harir.net/patientEd Enter P052 in the search box to learn more about Managing Other Conditions When You Have Heart Failure: Care Instructions. Current as of: June 13, 2021 Content Version: 13.3 [employer]. Care instructions adapted under license by your healthcare professional. If you have questions about a medical condition or this instruction, always ask your healthcare professional. [employer] disclaims any warranty or liability for your use of this information. Follow Up Care 02/18/2025 22:01:34 With:DANI ROPER, Urology Address: [address] [address]- Business (1) When: Unknown Comments:The office will call you 02/23/2025 in the morning to schedule ESWL for Sunday or Sunday [facility]. Starting 02-23-2025 at MIDNIGHT nothing to eat or drink except medications. Do not take Aspirin or Eliquis until directed by Urology. With:LIMA COLE Address: [address] [facility] [address] [facility] [address] [place] [address]- Business (1) When:02/27/2025 15:30:00 With:Heart Failure Education ([facility]) Address: [address] - [facility] [place] [address]- Business (1) When:02/24/2025 13:00:00 Comments:Please CALL [phone] if unable to attend. IF PATIENT IS DISCHARGE TO A NURSING FACILITY OR SENIOR LIVING CARE PLEASE DO NOT ATTEND. [facility] [id number] NoteEducation Pharmacy - Anticoagulation Entered On: 02/20/2025 16:22 EDT Performed On: 02/20/2025 16:21 EDT by Nelly Mendez RPh Pharmacy Anticoagulation Barriers to Learning : Other: d/c'ed Te[employer] Methodology : Other: d/c'ed Carmen Castellon RPh - 02/21/2025 10:55 EDT [employer] Back Notes : 02/20 irs: one time dose of eliquis given for new onset afib, follow up tomorrow to see if it should be continued Nelly Mendez RPh - 02/20/2025 16:21 EDT Education Pharmacy - Anticoagulation Other : Verbalizes understanding Nelly Mendez R[facility]:Order Comment: Request for pharmacy education by discern rule for patient ordered [id number] Note Education completed with the patient and the patient's ; the heart failure book and self care sheet given and reviewed. The patient stated that the heart failure diagnosis is new. The patient stated that he has a kidney stone that needs to be removed once the heart failure is treated. He plans to continue with [facility] for follow up and is aware that the heart failure follow up appointment will be made for him prior to discharge and the appointment details will be listed in his discharge paperwork as well as his home going medications. He was invited to attend the Sunday heart failure class.Heart failure, ECHO and EF of 55-60% explained. 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 Low salt diet, 2300mg per day, 600mg - 700mg per meal, label reading, keeping track of sodium and examples of foods high and low in salt discussed. The patient stated that he eats mainly fresh foods, no lunch meats or soups. Signs and symptoms of heart failure, the importance of early symptom reporting and when to call 911 discussed. 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 The patient stated that he has a scale and is agreeable to doing daily weights. Verbalized understanding of all education. [facility]09-18-2025 History and physical note JAME WALLACE :1965 Registration Date:02/19/2025 Chief Complaint Shortness of breath and volume overload History of Present Illness This is a 59-year-old with a history of congestive heart failure he has a right ureteral stone and he has a scheduled removal of it cystoscopy on Sunday however he showed up at the freestanding ER in [place] for due to volume overload shortness of breath and required to come in more acutely for that reason. I did go ahead and okayed the admission to clear up what I was told presumably his heart failure although is 59 years old he has this is a diagnosis trying to clear that up certainly prior to having any urological procedures coming very shortly Review of Systems Constitutional: no fever, no chills, no sweats, no weakness Respiratory: no shortness of breath, no cough Cardiovascular: no chest pain Additional ROS info: Except as noted in the above Review of Systems and in the History of Present Illness all other systems have been reviewed and are negative or noncontributory. Physical Exam Vitals & Measurements T: 36.4 C (Oral) TMIN: 36.4 C (Oral) TMAX: 36.9 C (Oral) HR: 75 (Monitored) RR: 17 BP: 153/86 SpO2:97% WT: 174.4 kg WT: 174.4 kg (Dosing) BMI: 49.36 Vital Signs: Per nurse's notes. General: Alert, no acute distress. Skin: Warm, dry, pink. Head: Normocephalic, atraumatic. Neck: Supple, trachea midline. Eye: Pupils are equal, round and reactive to light. Cardiovascular: Regular rate and rhythm, normal peripheral perfusion. Respiratory: Lungs are clear to auscultation, respirations are non-labored. Psychiatric: Cooperative. Neurological: Alert and oriented to person, place, time, and situation. Assessment/Plan This Visit Diagnosis Orders: acetaminophen, 650 mg= 2 tabs, ORAL, [id number], PRN acetaminophen, 650 mg= 2 tabs, ORAL, [id number], PRN acetaminophen, 650 mg= 2 tabs, ORAL, [id number], PRN acetaminophen-oxycodone(acetaminophen-oxycodone 325 mg-5 mg oral tablet = Percocet), 1 tabs, ORAL, [id number], PRN aspirin(Aspirin Low Dose), 81 mg= 1 tabs, ORAL, DAILY WITH BREAKFAST atorvastatin(Lipitor), 40 mg= 1 tabs, ORAL, DAILY buPROPion(Wellbutrin SR, Zyban (buPROPion SR)), 100 mg= 1 tabs, ORAL, BID celecoxib(CeleBREX), 200 mg= 1 caps, ORAL, BID ciprofloxacin = Cipro, 500 mg= 1 tabs, ORAL, [id number] DULoxetine(Cymbalta), 60 mg= 1 caps, ORAL, DAILY enoxaparin(Lovenox), 40 mg= 0.4 mL, Subcutaneous, QHS furosemide(Lasix), 40 mg= 4 mL, IV Push, BID (DIURETIC) gabapentin(Neurontin), 400 mg= 1 caps, ORAL, TID glimepiride(Amaryl), 4 mg= 1 tabs, ORAL, DAILY WITH BREAKFAST glucagon, 1 mg, IM, PRN, PRN glucose(glucose 15 g/42 mL oral gel), 15 g= 1 packets, ORAL, PRN, PRN glucose(glucose 15 g/42 mL oral gel), 30 g= 2 packets, ORAL, PRN, PRN glucose(Dextrose 50% injection), 12.5 g= 25 mL, IV Push, PRN, PRN glucose(Dextrose 50% injection), 25 g= 50 mL, IV Push, PRN, PRN influenza virus vaccine, inactivated(influenza virus vaccine, inactivated preservative-free trivalent intramuscular suspension), 0.5 mL, IM, DAILY insulin lispro(Humalog coverage), Mild Scale, Subcutaneous, QIDWMHS ketorolac = Toradol, 10 mg= 1 tabs, ORAL, QID, PRN levothyroxine(Synthroid), 75 mcg= 1 tabs, ORAL, DAILY BEFORE BREAKFAST melatonin, 5 mg= 1 tabs, ORAL, [id number], PRN metFORMIN = Glucophage, 850 mg= 1 tabs, ORAL, BIDWM metoprolol(Lopressor = Metoprolol Tartrate), 37.5 mg= 1.5 tabs, ORAL, BID mirtazapine(Remeron), 7.5 mg= 1 tabs, ORAL, QHS multivitamin, 1 tabs, ORAL, DAILY naloxone = Narcan, 0.4 mg= 1 mL, IV Push, PRN, PRN ondansetron(ondansetron 4 mg oral tablet, disintegrating = Zofran), 4 mg= 1 tabs, ORAL, [id number], PRN pioglitazone(Actos), 45 mg= 3 tabs, ORAL, DAILY tamsulosin(Flomax), 0.4 mg= 1 caps, ORAL, DAILY traMADol(Ultram), 50 mg= 1 tabs, ORAL, TID Ambulate, 02/19/2025 02:22:00 EDT, In hallway three times daily, TID, Do not change this order toConstant. Ambulation activity/distance documentation is required 3x/day Ambulate, 02/19/2025 02:22:00 EDT, as tolerated, TID, in cee, notify physician if patient unable to ambulate Blood Glucose Monitoring POC, 02/19/2025 02:22:00 EDT, Routine, QIDACHS, If Regular Humalin Insulin Blood Glucose Monitoring POC, 02/19/2025 02:22:00 EDT, STAT, PRN, if signs and symptoms of hypoglycemia are present CBCWD, ROUTINE, 02/19/2025 02:32:00 EDT Communication CONSTANT Order, 02/19/2025 02:22:00 EDT, Constant Order, For two blood glucose readings in 24 hours, of 200 or greater,, contact physician to advance sliding scale. Communication CONSTANT Order, 02/21/2025 08:00:00 EDT, Constant Order, Check PLT count on Day 2 after initiation of Heparin or Lovenox, Notify Physician if PLTs less than 100,000 Repeat PLT count every 3 days. Communication CONSTANT Order, 02/19/2025 02:22:00 EDT, Constant Order, STAT EKG for Chest Pain, STAT ABGs for Acute Respiratory Distress, STAT Potassium/Magnesium for any significant change in condition/rhythm Communication CONSTANT Order, 02/19/2025 02:22:00 EDT, Constant Order, Current ACLS Provider may, Initiate [place] [employer] Advanced Cardiac Life support Algorithm per patient code status COMPMETA(CMP), ROUTINE, 02/19/2025 02:33:00 EDT Consult Physician(Physician Consult), 02/19/2025 02:33:00 EDT, ZARIA SEAMAN, SARAH New CHF Consult Physician(Physician Consult), 02/19/2025 02:33:00 EDT, OLIVER SEAMAN, BONY, 8mm ureteral stone Diet Order, 02/19/2025 02:28:00 EDT, Low Sodium Heart Healthy Level of Care Order, 02/19/2025 01:55:00 EDT, Medical Outpatient with Observation Services, [facility] [place] Task(If pt has Saline Lock), If pt has Saline Lock, 02/19/2025 02:22:00 EDT, or if on Telemetry, place orderset for Saline Lock Peripheral with Saline Flush QShift and PRN to display NS flushes on AUG, 02/19/2025 02:22:00 EDT, 02/19/2025 02:22:00 EDT Notify Provider, 02/19/2025 02:22:00 EDT, Constant Order, Call physician treating blood glucose forany of the following: Oxygen Therapy, 02/19/2025 02:22:00 EDT, Nasal Cannula, Constant Order, Dyspnea with Dx COPD, 2-5 LNC PRN (if pt has COPD, oxygen at 2 L NC) PLATELET ONLY(PLATELET COUNT ONLY), ROUTINE, 02/21/2025 05:00:00 EDT PLATELET ONLY(PLATELET COUNT ONLY), ROUTINE, 02/24/2025 05:00:00 EDT Request for Armband, 02/19/2025 06:51:00 EDT, [id number], Unable to scan Request for Bed Placement, 02/19/2025 01:55:00 EDT, Medical, Outpatient with Observation Services, LULA MONTOYA DO Telemetry, Reason for Telemetry Other - Add to Other Reason Box, New onset CHF, Constant Order, CM Telemetry Turn Cough Deep Breathe, 02/19/2025 02:46:00 EDT, Constant Order, Q2H Vital Signs, 02/19/2025 02:22:00 EDT, Constant Order, per unit routine, PRN, include Pulse Ox with all VS Weight, 02/20/2025 04:00:00 EDT, [id number] Acute congestive heart failure I need to get a cardiology consult IV diuretics restart his home-going meds repeat a renal function panel daily monitor the electrolytes and the renal function closely I will take a look at his BNP probably needs an echo need to tune him up for a cystoscopy and urology procedures coming Sunday maintain his oxygen saturations continue with anticoagulation low-salt diet I will check his Accu-Cheks as well continue with all of his other chronic medications thank you Problem List/Past Medical History Ongoing Acute kidney injury Acute left otitis media Acute respiratory failure Asthenia Basal cell carcinoma of skin in situ Benign neoplasm of colon Bite of venomous spider Body mass index 40+ - severely obese Bronchitis Cellulitis and abscess of buttock Chronic low back pain Closed fracture of epiphyseal plate of metatarsal bone Closed fracture of fifth metatarsal bone Contusion of head COVID-19 Degeneration of lumbar intervertebral disc Depressive disorder Diabetes mellitus Disorder following viral disease Disorder of joint of spine Diverticulitis Dizziness Dyspnea Fever Folliculitis Generalized osteoarthritis Gout Hyperlipidemia Hypertensive disorder Hypothyroidism Hypoxia Increased frequency of urination Injury of shoulder and/or upper arm Insomnia Intractable ophthalmic migraine Kidney stone Leukocytosis Low back strain Lumbar radiculopathy Lumbosacral radiculopathy Maxillary sinusitis Morbid obesity Neuropathy due to diabetes mellitus Non-healing surgical wound Obstructive sleep apnea syndrome Osteoarthritis Pain Pain of knee region Paralysis of diaphragm Patient encounter status 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 Pneumonia caused by SARS-CoV-2 Post-acute COVID-19 Raynaud's disease Rheumatoid arthritis - hand joint Sebaceous cyst of skin Severe obesity Spinal stenosis of lumbar region Strain of neck muscle Testosterone level below reference range Umbilical discharge Uncontrolled type 2 diabetes mellitus Unsteady when walking Weight decreased Wheezing Historical Body mass index 30+ - obesity H/O: raised blood lipids H/O: respiratory disease Injury of ankle Injury of foot Sprain of ankle Procedure/Surgical History pin placed in right foot gallbladder removed sigmoid colectomy Medications Inpatient acetaminophen, 650 mg= 2 tabs, ORAL, [id number], PRN acetaminophen, 650 mg= 2 tabs, ORAL, [id number], PRN acetaminophen, 650 mg= 2 tabs, ORAL, [id number], PRN acetaminophen-oxycodone(acetaminophen-oxycodone 325 mg-5 mg oral tablet = Percocet), 1 tabs, ORAL, [id number], PRN aspirin(Aspirin Low Dose), 81 mg= 1 tabs, ORAL, DAILY WITH BREAKFAST atorvastatin(Lipitor), 40 mg= 1 tabs, ORAL, DAILY buPROPion(Wellbutrin SR, Zyban (buPROPion SR)), 100 mg= 1 tabs, ORAL, BID celecoxib(CeleBREX), 200 mg= 1 caps, ORAL, BID ciprofloxacin = Cipro, 500 mg= 1 tabs, ORAL, [id number] DULoxetine(Cymbalta), 60 mg= 1 caps, ORAL, DAILY enoxaparin(Lovenox), 40 mg= 0.4 mL, Subcutaneous, QHS furosemide(Lasix), 40 mg= 4 mL, IV Push, BID (DIURETIC) gabapentin(Neurontin), 400 mg= 1 caps, ORAL, TID glimepiride(Amaryl), 4 mg= 1 tabs, ORAL, DAILY WITH BREAKFAST glucagon, 1 mg, IM, PRN, PRN glucose(glucose 15 g/42 mL oral gel), 15 g= 1 packets, ORAL, PRN, PRN glucose(glucose 15 g/42 mL oral gel), 30 g= 2 packets, ORAL, PRN, PRN glucose(Dextrose 50% injection), 12.5 g= 25 mL, IV Push, PRN, PRN glucose(Dextrose 50% injection), 25 g= 50 mL, IV Push, PRN, PRN influenza virus vaccine, inactivated(influenza virus vaccine, inactivated preservative-free trivalent intramuscular suspension), 0.5 mL, IM, DAILY insulin lispro(Humalog coverage), Mild Scale, Subcutaneous, QIDWMHS ketorolac = Toradol, 10 mg= 1 tabs, ORAL, QID, PRN levothyroxine(Synthroid), 75 mcg= 1 tabs, ORAL, DAILY BEFORE BREAKFAST melatonin, 5 mg= 1 tabs, ORAL, [id number], PRN metFORMIN = Glucophage, 850 mg= 1 tabs, ORAL, BIDWM metoprolol(Lopressor = Metoprolol Tartrate), 37.5 mg= 1.5 tabs, ORAL, BID mirtazapine(Remeron), 7.5 mg= 1 tabs, ORAL, QHS multivitamin, 1 tabs, ORAL, DAILY naloxone = Narcan, 0.4 mg= 1 mL, IV Push, PRN, PRN ondansetron(ondansetron 4 mg oral tablet, disintegrating = Zofran), 4 mg= 1 tabs, ORAL, [id number], PRN perflutren(Definity), 2 mL, IV Push, PRN, PRN pioglitazone(Actos), 45 mg= 3 tabs, ORAL, DAILY sodium chloride(Saline Flush), 8 mL, IV Push, PRN, PRN tamsulosin(Flomax), 0.4 mg= 1 caps, ORAL, DAILY traMADol(Ultram), 50 mg= 1 tabs, ORAL, TID Home acetaminophen-oxycodone(Percocet 5 mg-325 mg oral tablet), 1 tabs, ORAL, [id number], PRN atorvastatin(Lipitor 40 mg oral tablet), 40 mg= 1 tabs, ORAL, DAILY buPROPion(Wellbutrin SR 100 mg/12 hours oral tablet, extended release), 100 mg= 1 tabs, ORAL, BID celecoxib(CeleBREX 200 mg oral capsule), 200 mg= 1 caps, ORAL, BID ciprofloxacin = Cipro(ciprofloxacin 500 mg oral tablet), 500 mg= 1 tabs, ORAL, [id number] DULoxetine(Cymbalta 60 mg oral delayed release capsule), 60 mg= 1 caps, ORAL, DAILY gabapentin(Neurontin 400 mg oral capsule), 400 mg= 1 caps, ORAL, TID glimepiride(Amaryl 4 mg oral tablet), 4 mg= 1 tabs, ORAL, DAILY ketorolac = Toradol(ketorolac 10 mg oral tablet), 10 mg= 1 tabs, ORAL, QID, PRN levothyroxine(Synthroid 75 mcg (0.075 mg) oral tablet), 75 mcg= 1 tabs, ORAL, DAILY magnesium gluconate(magnesium gluconate 250 mg oral tablet), 250 mg= 1 tabs, ORAL, DAILY metFORMIN = Glucophage(metFORMIN 850 mg oral tablet), 850 mg= 1 tabs, ORAL, BID metoprolol(metoprolol tartrate 37.5 mg oral tablet), 37.5 mg= 1 tabs, ORAL, BID mirtazapine(Remeron 15 mg oral tablet), 7.5 mg= 0.5 tabs, ORAL, QHS multivitamin, 1 tabs, ORAL, DAILY ondansetron(ondansetron 4 mg oral tablet, disintegrating = Zofran), 4 mg= 1 tabs, ORAL, [id number], PRN pioglitazone(Actos 45 mg oral tablet), 45 mg= 1 tabs, ORAL, DAILY tamsulosin(Flomax 0.4 mg oral capsule), 0.4 mg= 1 caps, ORAL, DAILY traMADol(Ultram 50 mg oral tablet), 50 mg= 1 tabs, ORAL, TID vitamin A, 2400 mcg, ORAL, DAILY Allergies No Known Allergies Social History Alcohol - Denies Alcohol Use 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 Exercise - Does not exercise Home/Environment Lives with:Spouse *Living Situation Prior to AdmissionHome/Independent Home equipment:None Monitoring Equipment in homeNone *Special Services and Community Resources Prior to AdmissionNone *Mobility Assistance Prior to AdmissionIndependent Home BarriersNone *Will patient require additional/new services upon discharge?Yes Substance Abuse - Denies Substance Abuse Tobacco - Denies Tobacco Use Family History Family history is negative Lab Results Test Name Test Result Date/Time BUN 21 mg/dL 02/19/2025 06:15 EDT Comments: - Venipuncture should occur prior to N-Acetyl Cysteine (NAC) or Metamizole (Sulpyrine) administration due to the potential for falsely depressed results. - Blood samples from some patients with monoclonal gammopathies may produce falsely elevated results Na 143 mmol/L 02/19/2025 06:15 EDT K 4.0 mmol/L 02/19/2025 06:15 EDT Chloride 102 mmol/L 02/19/2025 06:15 EDT CO2, venous 33.0 mmol/L 02/19/2025 06:15 EDT Glucose 117 mg/dL 02/19/2025 06:15 EDT Creatinine 1.2 mg/dL 02/19/2025 06:15 EDT Estimated Creatinine Clearance 78.01 mL/min 02/19/2025 07:25 EDT Estimated Creatinine Clearance 85.11 mL/min 02/19/2025 02:16 EDT Total Protein 6.5 g/dL 02/19/2025 06:15 EDT Comments: Total Protein results may be increased in patients receiving dextran as a blood volume capsule filler Calcium 9.2 mg/dL 02/19/2025 06:15 EDT Bilirubin, Total 0.50 mg/dL 02/19/2025 06:15 EDT Comments: Use of this assay is not recommended for patients undergoing treatment with eltrombopag due to the potential for falsely elevated results. Alk Phos 96 unit/L 02/19/2025 06:15 EDT GOT 18 unit/L 02/19/2025 06:15 EDT GPT 15 unit/L 02/19/2025 06:15 EDT BUN/Creat Ratio 17.5 02/19/2025 06:15 EDT Calculated Osmolality 289 mOsm/kg 02/19/2025 06:15 EDT Globulin 3.4 g/dL 02/19/2025 06:15 EDT A/G Ratio 0.9 02/19/2025 06:15 EDT ALB 3.1 g/dL 02/19/2025 06:15 EDT B-type Natriuretic Peptide 326 pg/mL 02/19/2025 06:15 EDT Glomerular Filtration Rate >60 mL/min/1.73m 02/19/2025 06:15 EDT Comments: Non- GFR Calc, Medical judgement is necessary to interpret GFR. The calculated GFRmay not accurately reflect renal status in patients >70 years, women, acutely ill hospitalized patients and patients with acute renal failure or known renal disease. The MDRD GFR formula is valid only for adults greater than 18 years of age. Note: Creatinine clearance (not GFR) should be used for drug dosing. Calculated result performed using the MDRD GFR equation GFR AA >60 02/19/2025 06:15 EDT Comments: GFR Calc, Medical judgement is necessary to interpret GFR. The calculated GFR maynot accurately reflect renal status in patients >70 years, women, acutely ill hospitalized patients and patients with acute renal failure or known renal disease. The MDRD GFR formula is valid only for adults greater than 18 years of age. Note: Creatinine clearance (not GFR) should be used for drug dosing. Calculated result performed using the MDRD GFR equation WBC 7.8 x10^3/uL 02/19/2025 06:15 EDT RBC 3.93 x10^6/uL 02/19/2025 06:15 EDT Comments: Note: RBC morphology is normal unless otherwise stated. Evaluation performed only if differential is requested. HGB 12.3 g/dL 02/19/2025 06:15 EDT HCT 37.0 % 02/19/2025 06:15 EDT MCV 94.1 fL 02/19/2025 06:15 EDT MCH 31.3 pg 02/19/2025 06:15 EDT MCHC 33.3 g/dL 02/19/2025 06:15 EDT RDW 14.3 % 02/19/2025 06:15 EDT Platelet 178 x10^3/uL 02/19/2025 06:15 EDT MPV 10.2 fL 02/19/2025 06:15 EDT Nucleated RBC 0 /100WBC 02/19/2025 06:15 EDT Lymph % 20.2 % 02/19/2025 06:15 EDT Mcclain % 11.9 % 02/19/2025 06:15 EDT Neutrophil % 64.6 % 02/19/2025 06:15 EDT Eosin % 2.6 % 02/19/2025 06:15 EDT Basos % 0.7 % 02/19/2025 06:15 EDT Lymph Count 1.57 x1000 02/19/2025 06:15 EDT Mcclain Count 0.92 x1000 02/19/2025 06:15 EDT Neutrophil Count (ANC) 5.01 x1000 02/19/2025 06:15 EDT Eos Count 0.20 x1000 02/19/2025 06:15 EDT Baso Count 0.05 x1000 02/19/2025 06:15 EDT [facility]09-18-2025 NoteJAME WALLACE :1965 [facility]:[id number] Registration Date:02/19/2025 Chief Complaint Shortness of breath and volume overload History of Present Illness This is a 59-year-old with a history of congestive heart failure he has a right ureteral stone and he has a scheduled removal of it cystoscopy on Sunday however he showed up at the freestanding ER in [place] for due to volume overload shortness of breath and required to come in more acutely for that reason. I did go ahead and okayed the admission to clear up what I was told presumably his heart failure although is 59 years old he has this is a diagnosis trying to clear that up certainly prior to having any urological procedures coming very shortly Review of Systems Constitutional: no fever, no chills, no sweats, no weakness Respiratory: no shortness of breath, no cough Cardiovascular: no chest pain Additional ROS info: Except as noted in the above Review of Systems and in the History of Present Illness all other systems have been reviewed and are negative or noncontributory. Physical Exam Vitals & Measurements T: 36.4 ?C (Oral) TMIN: 36.4 ?C (Oral) TMAX: 36.9 ?C (Oral) HR: 75 (Monitored) RR: 17 BP: 153/ 86 SpO2: 97% WT: 174.4 kg WT: 174.4 kg (Dosing) BMI: 49.36 Vital Signs: Per nurse's notes. General: Alert, no acute distress. Skin: Warm, dry, pink. Head: Normocephalic, atraumatic. Neck: Supple, trachea midline. Eye: Pupils are equal, round and reactive to light. Cardiovascular: Regular rate and rhythm, normal peripheral perfusion. Respiratory: Lungs are clear to auscultation, respirations are non-labored. Psychiatric: Cooperative. Neurological: Alert and oriented to person, place, time, and situation. Assessment/Plan This Visit Diagnosis Orders: acetaminophen, 650 mg= 2 tabs, ORAL, [id number], PRN acetaminophen, 650 mg= 2 tabs, ORAL, [id number], PRN acetaminophen, 650 mg= 2 tabs, ORAL, [id number], PRN acetaminophen-oxycodone(acetaminophen-oxycodone 325 mg-5 mg oral tablet = Percocet), 1 tabs, ORAL, [id number], PRN aspirin(Aspirin Low Dose), 81 mg= 1 tabs, ORAL, DAILY WITH BREAKFAST atorvastatin(Lipitor), 40 mg= 1 tabs, ORAL, DAILY buPROPion(Wellbutrin SR, Zyban (buPROPion SR)), 100 mg= 1 tabs, ORAL, BID celecoxib(CeleBREX), 200 mg= 1 caps, ORAL, BID ciprofloxacin = Cipro, 500 mg= 1 tabs, ORAL, [id number] DULoxetine(Cymbalta), 60 mg= 1 caps, ORAL, DAILY enoxaparin(Lovenox), 40 mg= 0.4 mL, Subcutaneous, QHS furosemide(Lasix), 40 mg= 4 mL, IV Push, BID (DIURETIC) gabapentin(Neurontin), 400 mg= 1 caps, ORAL, TID glimepiride(Amaryl), 4 mg= 1 tabs, ORAL, DAILY WITH BREAKFAST glucagon, 1 mg, IM, PRN, PRN glucose(glucose 15 g/42 mL oral gel), 15 g= 1 packets, ORAL, PRN, PRN glucose(glucose 15 g/42 mL oral gel), 30 g= 2 packets, ORAL, PRN, PRN glucose(Dextrose 50% injection), 12.5 g= 25 mL, IV Push, PRN, PRN glucose(Dextrose 50% injection), 25 g= 50 mL, IV Push, PRN, PRN influenza virus vaccine, inactivated(influenza virus vaccine, inactivated preservative-free trivalent intramuscular suspension), 0.5 mL, IM, DAILY insulin lispro(Humalog coverage), Mild Scale, Subcutaneous, QIDWMHS ketorolac = Toradol, 10 mg= 1 tabs, ORAL, QID, PRN levothyroxine(Synthroid), 75 mcg= 1 tabs, ORAL, DAILY BEFORE BREAKFAST melatonin, 5 mg= 1 tabs, ORAL, [id number], PRN metFORMIN = Glucophage, 850 mg= 1 tabs, ORAL, BIDWM metoprolol(Lopressor = Metoprolol Tartrate), 37.5 mg= 1.5 tabs, ORAL, BID mirtazapine(Remeron), 7.5 mg= 1 tabs, ORAL, QHS multivitamin, 1 tabs, ORAL, DAILY naloxone = Narcan, 0.4 mg= 1 mL, IV Push, PRN, PRN ondansetron(ondansetron 4 mg oral tablet, disintegrating = Zofran), 4 mg= 1 tabs, ORAL, [id number], PRN pioglitazone(Actos), 45 mg= 3 tabs, ORAL, DAILY tamsulosin(Flomax), 0.4 mg= 1 caps, ORAL, DAILY traMADol(Ultram), 50 mg= 1 tabs, ORAL, TID Ambulate, 02/19/2025 02:22:00 EDT, In hallway / three times daily, TID, Do not change this order toConstant. Ambulation activity/distance documentation is required 3x/day Ambulate, 02/19/2025 02:22:00 EDT, as tolerated, TID, in cee, notify physician if patient unable to ambulate Blood Glucose Monitoring POC, 02/19/2025 02:22:00 EDT, Routine, QIDACHS, If Regular Humalin Insulin Blood Glucose Monitoring POC, 02/19/2025 02:22:00 EDT, STAT, PRN, if signs and symptoms of hypoglycemia are present CBCWD, ROUTINE, 02/19/2025 02:32:00 EDT Communication CONSTANT Order, 02/19/2025 02:22:00 EDT, Constant Order, For two blood glucose readings in 24 hours, of 200 or greater,, contact physician to advance sliding scale. Communication CONSTANT Order, 02/21/2025 08:00:00 EDT, Constant Order, Check PLT count on Day 2 after initiation of Heparin or Lovenox, Notify Physician if PLTs less than 100,000 Repeat PLT count every 3 days. Communication CONSTANT Order, 02/19/2025 02:22:00 EDT, Constant Order, STAT EKG for Chest Pain, STAT ABGs for Acute Respiratory (more content not included)... [facility]09-18-2025 Nurse Admission evaluation note [id number] - Report received from ED RN at [place] [facility]. 0140 - Patient arrived to floor via transport, oriented to room, established on telemetry, ED registration called to pull patient into system. 0205 - Call to Dr. Montoya for admission orders, connected to physician, orders received and placedvia telephone with read back. 0230 - Patient updated on diet and plan of care, no additional needs voiced. [facility]09-18-2025 Nurse Admission evaluation note VRN Admission Note: Called into patient s room and greeted patient. Agreed to virtual nurse visit and to communicate with camera on. Patient verified name and . Patient resting in bed alert and oriented. Patient completed admission history questions and fall prevention education. Patient reported he understood. Recommend more teachings. IPOCs initiated. Home medication list previously reviewed and updated by bedside staff. No concerns voiced during this visit. This visit was conducted via live, [id number], video teleconferencing. This RN was in a remote location and the patient was on-site at the time of call. [facility]09-17-2025 [id number] (AGENT OF COVID-19) RNA: Not detected INFLUENZA A RNA: Not detected INFLUENZA B RNA: Not detected RESPIRATORY SYNCYTIAL VIRUS (RSV) RNA: Not detectedNorthern Light Eastern Maine Medical CenterComment on above:Performed By: #### [id number] ####[facility] LABCLIA [id number] [place] [address] [facility] [id number] Hospital Discharge instructions Patient Education 02/16/2025 16:04:28 Kidney Stone Kidney Stone: Care Instructions Your Care Instructions Kidney stones are formed when salts, minerals, and other substances normally found in the urine clump together. They can be as small as grains of sand or, rarely, as large as golf balls. While the stone is traveling through the ureter, which is the tube that carries urine from the kidney to the bladder, you will probably feel pain. The pain may be mild or very severe. You may also have some blood in your urine. As soon as the stone reaches the bladder, any intense pain should go away. If a stone is too large to pass on its own, you may need a medical procedure to help you pass the stone. The doctor has checked you carefully, but problems can develop later. If you notice any problems ornew symptoms, get medical treatment right away. Follow-up care is a owens part of your treatment and safety. Be sure to make and go to all appointments, and call your doctor if you are having problems. It's also a good idea to know your test resultsand keep a list of the medicines you take. How can you care for yourself at home? Drink plenty of fluids. If you have kidney, heart, or liver disease and have to limit fluids, talk with your doctor before you increase the amount of fluids you drink. Take pain medicines exactly as directed. Call your doctor if you think you are having a problem with your medicine. If the doctor gave you a prescription medicine for pain, take it as prescribed. If you are not taking a prescription pain medicine, ask your doctor if you can take an sdea-hrd-kfaokax medicine. Read and follow all instructions on the label. Your doctor may ask you to strain your urine so that you can collect your kidney stone when it passes. You can use a kitchen strainer or a tea strainer to catch the stone. Store it in a plastic bag until you see your doctor again. Preventing future kidney stones Some changes in your diet may help prevent kidney stones. Depending on the cause of your stones, your doctor may recommend that you: Drink plenty of fluids. If you have kidney, heart, or liver disease and have to limit fluids, talk with your doctor before you increase the amount of fluids you drink. Limit coffee, tea, and alcohol. Also avoid grapefruit juice. Do not take more than the recommended daily dose of vitamins C and D. Avoid antacids such as Gaviscon, Maalox, Mylanta, or Tums. Limit the amount of salt (sodium) in your diet. Eat a balanced diet that is not too high in protein. Limit foods that are high in a substance called oxalate, which can cause kidney stones. These foodsinclude dark green vegetables, rhubarb, chocolate, wheat bran, nuts, cranberries, and beans. When should you call for help? Call your doctor now or seek immediate medical care if: You cannot keep down fluids. Your pain gets worse. You have a fever or chills. You have new or worse pain in your back just below your rib cage (the flank area). You have new or more blood in your urine. Watch closely for changes in your health, and be sure to contact your doctor if: You do not get better as expected. Where can you learn more? Go to https://www.Harir.net/patientEd Enter X633 in the search box to learn more about Kidney Stone: Care Instructions. Current as of: February 09, 2021 Content Version: 13.3 [employer]. Care instructions adapted under license by your healthcare professional. If you have questions about a medical condition or this instruction, always ask your healthcare professional. [employer] disclaims any warranty or liability for your use of this information. Follow Up Care 02/16/2025 11:40:53 With:[facility] Address: [address] [place], [place] [address] Business (1) When:3 to 5 days Comments:Please follow-up with [facility] urology and keep your appt next week [facility] 09-15-2025 Note* Exam Date Time Procedure Performing Provider Status 02/16/25 2:10 PM PORTABLE ABDOMEN 1V (Angelica l) Notes: (PORTABLE ABDOMEN 1V) Reason For Exam: known 8mm right sided kidney stone;OTHER REASON Report EXAM: XR ABDOMEN 1 VIEW (KUB) CLINICAL INFORMATION: known 8mm right sided kidney stone;OTHER REASON COMPARISON: None available at time of interpretation. FINDINGS: Supine view of the abdomen. Examination is suboptimal due to patient's body habitus. Normal bowel gas pattern. Evidence of previous cholecystectomy. No radiopaque renal calculi. Severe degeneration of the spine IMPRESSION: No radiopaque renal calculi seen on this exam given limitations discussed above. Electronically signed by: Enid Og MD 02/16/2025 02:21 PM EDT Technologist: MARCIA STEINBERG Dictated By: ENID OG MD Signed By: ENID OG MD Signed Out: 02/16/25 14:21:41 [facility]09-15-2025 Evaluation + Plan noteExtracted from: Title:ED Physician Note - CALLIE Author:JANETTE COLLINS DO Date:02/16/25 Kidney stone N20.0 Orders: acetaminophen-oxycodone(Percocet 5 mg-325 mg oral tablet), 1 tabs, ORAL, [id number], PRN ciprofloxacin = Cipro(ciprofloxacin 500 mg oral tablet), 500 mg= 1 tabs, ORAL, [id number] ketorolac = Toradol(ketorolac 10 mg oral tablet), 10 mg= 1 tabs, ORAL, QID, PRN ondansetron(ondansetron 4 mg oral tablet, disintegrating = Zofran), 4 mg= 1 tabs, ORAL, [id number], PRN tamsulosin(Flomax 0.4 mg oral capsule), 0.4 mg= 1 caps, ORAL, DAILY CBCWD, STAT, 02/16/2025 11:41:00 EDT COMPMETA, STAT, 02/16/2025 11:41:00 EDT ED Discharge to Home, 02/16/2025 15:50:00 EDT, Constant Order LIP(LIPASE), STAT, 02/16/2025 11:41:00 EDT [facility] [place] to Nursing, 02/16/2025 11:41:00 EDT, Constant Order, NPO Peripheral IV Insertion, 02/16/2025 13:32:00 EDT, 02/16/2025 13:32:00 EDT UA, STAT, 02/16/2025 11:41:00 EDT Vital Signs, 02/16/2025 11:41:00 EDT, Constant Order, Per Unit Standard of Care, include Pulse Ox with all VS Weight, 02/16/2025 11:41:00 EDT, Dosing weight, 02/16/2025 11:41:00 EDT XR ABDOMEN 1V PORTABLE, 02/16/2025 13:32:00 EDT, STAT, OTHER REASON, known 8mm right sided kidney stone, Cart [facility] 06-26-2025 Evaluation note* Diagnosis Onset Date Resolution Status Admit Date Diabetes type 2, uncontrolled acute November 27, 2024 3:58pm Migraine NEC/intractable acute November 27, 2024 3:58pm [facility] Work Phone: 1(821) 755-735703-21-2025 Evaluation note* Diagnosis Onset Date Resolution Status Admit Date Depression acute August 22 5:48pm Hyperglycemia due to type 2 diabetes mellitus acute August 22 5:48pm Migraine August 22 5:48pm Hypertension chronic August 22, 2024 5:48pm [facility] Work Phone: 1(245) 590-505003-21-2025 Evaluation note* Diagnosis Onset Date Resolution Status Admit Date Depression acute August 22 5:48pm Hyperglycemia due to type 2 diabetes mellitus August 22 5:48pm Migraine August 22 5:48pm Hypertension August 22, 2024 5:48pm Hypothyroidism acute October 23, 2024 5:39pm Leukocytosis acute October 23 5:39pm Maxillary sinusitis, acute acute October 23, 2024 5:39pm Right otitis media acute October 232024 5:39pm [facility] Work Phone: 1(358) 169-750002-14-2024 Telephone encounter Note* Telephone Encounter - Britta Zavala RN - 07/18/2023 1:08 PM EST S: Patient spoke with [facility] nurse regarding dizziness. B: Onset of symptoms for 1 week. A: Seen in and continues to have dizziness, moves out to fast, fell yesterday in the bathroom noinjuries, no nausea, feels weird, the room spins, headache that won't go away. PMD is out of town until next week. R: Patient referred to ER or UC for eval. Declines new patient appointment. Patient understands care advice. No further needs at this time. Patient instructed to call back with new or worsening symptoms. Reason for Disposition Lightheadedness (dizziness) present now, after 2 hours of rest and fluids Protocols used: Ndkotiuzy-UALGE-MQ [id number] Miscellaneous Notes* Telephone Encounter - Britta Zavala RN - 07/18/2023 1:08 PM EST S: Patient spoke with [facility] nurse regarding dizziness. B: Onset of symptoms for 1 week. A: Seen in and continues to have dizziness, moves out to fast, fell yesterday in the bathroom noinjuries, no nausea, feels weird, the room spins, headache that won't go away. PMD is out of town until next week. R: Patient referred to ER or UC for eval. Declines new patient appointment. Patient understands care advice. No further needs at this time. Patient instructed to call back with new or worsening symptoms. 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 Also sent [employer] message. Pt identified by name and : NO Outreach Outcome/Action Unable to reach patient: Left message [employer] message sent Did you use a PCP flex slot to schedule this appointment? N/A Reason for Outreach HCC or suspected condition Payer: Payor: JOHN / Plan: JOHN SHELBYX / Product Type: EPO / Care Gap Reviewed:: Annual Wellness visit Controlling Blood Pressure Colorectal Cancer Screening Diabetic Eye Exam HBA1C Nephropathy (Albumin/Creatinine) Urine Flu vaccine Reminder: Reminder note to check Health Maintenance for items below Health Maintenance items due: HEPATITIS B(1 of 3 - 3-dose series) Never done COVID-19 VACCINE(1) Never done PNEUMOCOCCAL(1 - PCV) Never done DEPRESSION SCREENING Never done ANNUAL PCP TEAM CHRONIC DISEASE VISIT Never done HEPATITIS C SCREENING Never done HIV SCREENING Never done BP CONTROLLED (<130/80) Never done DTAP,TDAP,TD(1 - Tdap) Never done COLORECTAL CANCER SCREENING Never done URINE ALBUMIN:CREATININE RATIO due on 08/17/2013 DIABETIC FOOT EXAM due on 02/11/2014 LDL CHOLESTEROL due on 12/13/2014 DILATED RETINAL EXAM due on 06/05/2016 SHINGRIX VACCINE(1 of 2) Never done HBA1C due on 11/09/2020 PROSTATE CANCER SCREENING DISCUSSION Never done INFLUENZA(1) due on 02/02/2022 Message Sent to Practice: No Navigation Signature: Jonna Leigh MA February 08, 2022 11:29 AM Allergies As of Date: 02/08/2022 Noted Allergy Reaction PREGABALIN 03/06/2021 16 - Unknown Date Reviewed: 10/03/2021 Reviewed by: Zakiya Walters RN - Fully Assessed Reason for Visit: Population Health Navigation Outreach [3910] Cmt: [facility] Prescriptions as of 02/08/2022 - celecoxib (CELEBREX) 200 mg capsule Take 200 mg by mouth once daily. - gabapentin (NEURONTIN) 400 mg capsule Take by mouth. - Magnesium 250 mg tab Take 500 mg by mouth once daily. - meclizine (ANTIVERT) 25 mg tab Take 1 tablet by mouth three times daily. - VITAMIN A ORAL Take by mouth. - dulaglutide (TRULICITY) 3 mg/0.5 mL pen injector Inject 3 mg subcutaneously one time a week. - empagliflozin-metFORMIN (SYNJARDY) 12.5-1,000 mg tab Take 1 tablet by mouth twice daily with meals. - acetaminophen (TYLENOL EXTRA STRENGTH) 500 mg tablet Take 2 tablets by mouth every 8 hours as needed for pain. - tiZANidine (ZANAFLEX) 4 mg tablet Take 1 tablet by mouth every 8 hours as needed (pain or muscle spasm). - metoprolol tartrate 37.5 mg tab Take 1 tablet by mouth once daily. - cholecalciferol, vitamin D3, (VITAMIN D3 ORAL) Take 1,000 Units by mouth once daily. - DULoxetine (CYMBALTA) 20 mg capsule Take 60 mg by mouth daily at bedtime. - buPROPion (WELLBUTRIN) 100 mg tablet Take 100 mg by mouth twice daily. - ASPIRIN (ASPIR-81 ORAL) Take 1 tablet by mouth once daily. - glimepiride (AMARYL) 4 mg tablet Take 4 mg by mouth daily with breakfast. - amLODIPine (NORVASC) 5 mg tablet Take 5 mg by mouth once daily. - traMADol 50 mg tablet Take 1 tablet by mouth every 8 hours as needed for Pain. Problem List As Of Date 02/08/2022 Noted Resolved Diverticulitis of colon (without mention of hem* 01/19/2011 Colonic polyp [D12.6] Type 2 diabetes mellitus (HCC) [E11.9] 01/19/2009 Diabetic neuropathy, painful (HCC) [E11.40] 01/19/2011 Hyperlipidemia with target low density lipoprot*01/19/2011 Gout [M10.9] 02/11/2013 Subcutaneous mass [R22.9] 04/23/2013 05/15/2013 Post-operative state [Z98.890] 05/15/2013 08/11/2019 Hypertension [I10] 04/28/2014 Osteoarthritis of spine with radiculopathy, lum*07/23/2015 Degeneration of lumbar intervertebral disc [M51*10/08/2015 Radiculopathy, lumbar region [M54.16] 10/08/2015 Stenosis, spinal, lumbar [M48.061] 10/08/2015 Chronic bilateral low back pain with right-side*10/08/2015 09/05/2016 Chronic bilateral low back pain with left-sided*10/13/2016 Closed physeal fracture of fifth metatarsal bon*08/11/2019 Diverticulitis [K57.92] Rheumatoid arthritis of hand (HCC) [M06.9] Morbidly obese (HCC) [E66.01] COVID-19 virus infection [U07.1] 08/09/2020 Acute respiratory failure with hypoxia (HCC) [J*08/09/2020 Pneumonia due to COVID-19 virus [U07.1, J12.82] 08/09/2020 Obesity, Class (more content not included)...[facility] 02-08-2022 NoteHNO ID: [id number] Author: Jonna Leigh MA Service: ? Author Type: Mine Promotor Type: Progress Notes Filed: 02/08/2022 11:31 AM Note Text: POPULATION HEALTH NAVIGATION OUTREACH Action/FYI Patient is on HCC list for below gaps and needs appt to address : M06.9 - Rheumatoid arthritis of hand (HCC) patient also due for : Well exam- verify pcp BP CONTROLLED (<130/80) COLORECTAL CANCER SCREENING URINE ALBUMIN:CREATININE RATIO DILATED RETINAL EXAM HBA1C INFLUENZA(1) Left message for patient to call me back directly to schedule. Also sent [employer] message. Pt identified by name and : NO Outreach Outcome/Action Unable to reach patient: Left message MyChart message sent Did you use a PCP flex slot to schedule this appointment? N/A Reason for Outreach HCC or suspected condition Payer: Payor: JOHN / Plan: JOHN BLOOM RUTH / Product Type: EPO / Care Gap Reviewed:: Annual Wellness visit Controlling Blood Pressure Colorectal Cancer Screening Diabetic Eye Exam HBA1C Nephropathy (Albumin/Creatinine) Urine Flu vaccine Reminder: Reminder note to check Health Maintenance for items below Health Maintenance items due: HEPATITIS B(1 of 3 - 3-dose series) Never done COVID-19 VACCINE(1) Never done PNEUMOCOCCAL(1 - PCV) Never done DEPRESSION SCREENING Never done ANNUAL PCP TEAM CHRONIC DISEASE VISIT Never done HEPATITIS C SCREENING Never done HIV SCREENING Never done BP CONTROLLED (<130/80) Never done DTAP,TDAP,TD(1 - Tdap) Never done COLORECTAL CANCER SCREENING Never done URINE ALBUMIN:CREATININE RATIO due on 08/17/2013 DIABETIC FOOT EXAM due on 02/11/2014 LDL CHOLESTEROL due on 12/13/2014 DILATED RETINAL EXAM due on 06/05/2016 SHINGRIX VACCINE(1 of 2) Never done HBA1C due on 11/09/2020 PROSTATE CANCER SCREENING DISCUSSION Never done INFLUENZA(1) due on 02/02/2022 Message Sent to Practice: No Navigation Signature: Jonna Leigh MA February 08, 2022 11:29 [facility]09-07-2022 History of Present illness Narrative* Jonna Leigh MA - 02/08/2022 11:28 AM EDT POPULATION HEALTH NAVIGATION OUTREACH Action/FYI Patient is on HCC list for below gaps and needs appt to address : M06.9 - Rheumatoid arthritis of hand (HCC)
patient also due for : Well exam- verify pcp BP CONTROLLED (<130/80) COLORECTAL CANCER SCREENING URINE ALBUMIN:CREATININE RATIO DILATED RETINAL EXAM HBA1C INFLUENZA(1) Left message for patient to call me back directly to schedule. Also sent [employer] message. Pt identified by name and : NO Outreach Outcome/Action Unable to reach patient: Left message MyChart message sent Did you use a PCP flex slot to schedule this appointment? N/A Reason for Outreach HCC or suspected condition Payer: Payor: JOHN / Plan: JOHN BLOOM RUTH / Product Type: EPO / Care Gap Reviewed:: Annual Wellness visit Controlling Blood Pressure Colorectal Cancer Screening Diabetic Eye Exam HBA1C Nephropathy (Albumin/Creatinine) Urine Flu vaccine Reminder: Reminder note to check Health Maintenance for items below Health Maintenance items due: HEPATITIS B(1 of 3 - 3-dose series) Never done COVID-19 VACCINE(1) Never done PNEUMOCOCCAL(1 - PCV) Never done DEPRESSION SCREENING Never done ANNUAL PCP TEAM CHRONIC DISEASE VISIT Never done HEPATITIS C SCREENING Never done HIV SCREENING Never done BP CONTROLLED (<130/80) Never done DTAP,TDAP,TD(1 - Tdap) Never done COLORECTAL CANCER SCREENING Never done URINE ALBUMIN:CREATININE RATIO due on 08/17/2013 DIABETIC FOOT EXAM due on 02/11/2014 LDL CHOLESTEROL due on 12/13/2014 DILATED RETINAL EXAM due on 06/05/2016 SHINGRIX VACCINE(1 of 2) Never done HBA1C due on 11/09/2020 PROSTATE CANCER SCREENING DISCUSSION Never done INFLUENZA(1) due on 02/02/2022 Message Sent to Practice: No Navigation Signature: Jonna Leigh MA February 08, 2022 11:29 AM [facility] NoteHNO ID: [id number] Author: RT Tanisha(R) Service: ? Author Type: Technologist Type: Progress Notes Filed: 10/03/2021 7:35 PM Note Text: Radiology Service Progress Note PATIENT NAME: Jame Wallace DATE OF SERVICE: October 03, 2021 TIME: 7:35 PM PATIENT IDENTITY VERIFICATION COMPLETED USING TWO (2) IDENTIFIERS: Name and Date of confirmed by patient verbally. FALL SCREENING: Has the patient had 2 falls in the last year or 1 fall with injury or currently using an Ambulatory Assistive Device (Walker, Cane, Wheelchair, Crutches, etc.)? Emergency Room Patient: Screened in ED PATIENT GENDER DATA: Male PATIENT RELEVANT IMPLANT DATA REVIEWED: Not Applicable RADIOLOGY DEPARTMENT: General X-ray: Exam(s) Completed: Chest X-Ray PERIPHERAL IV DATA: Not applicable SIGNED BY: RT Tanisha(R) October 03, 2021 7:35 [facility]05-02-2022 NoteHNO ID: [id number] Author: Charlee Vergara RT(R) Service: ? Author Type: Technologist Type: Progress Notes Filed: 10/03/2021 5:50 PM Note Text: Radiology Service Progress Note PATIENT NAME: Jame Wallace DATE OF SERVICE: October 03, 2021 TIME: 5:49 PM PATIENT IDENTITY VERIFICATION COMPLETED USING TWO (2) IDENTIFIERS: Name and Date of confirmed by patient verbally and Name and Date of confirmed by identification band. FALL SCREENING: Has the patient had 2 falls in the last year or 1 fall with injury or currently using an Ambulatory Assistive Device (Walker, Cane, Wheelchair, Crutches, etc.)? Emergency Room Patient: Screened in ED PATIENT GENDER DATA: Male PATIENT RELEVANT IMPLANT DATA REVIEWED: Yes RADIOLOGY DEPARTMENT: CT; Exam(s) Completed: Brain PERIPHERAL IV DATA: Not applicable SIGNED BY: RT Antonella(R) October 03, 2021 5:49 [facility]05-02-2022 History of Present illness Narrative* RT Tanisha(R) - 10/03/2021 7:35 PM EDT Radiology Service Progress Note PATIENT NAME: Jame Wallace DATE OF SERVICE: October 03, 2021 TIME: 7:35 PM PATIENT IDENTITY VERIFICATION COMPLETED USING TWO (2) IDENTIFIERS: Name and Date of confirmedby patient verbally. FALL SCREENING: Has the patient had 2 falls in the last year or 1 fall with injury or currently using an Ambulatory Assistive Device (Walker, Cane, Wheelchair, Crutches, etc.)? Emergency Room Patient: Screened in ED PATIENT GENDER DATA: Male PATIENT RELEVANT IMPLANT DATA REVIEWED: Not Applicable RADIOLOGY DEPARTMENT: General X-ray: Exam(s) Completed: Chest X-Ray PERIPHERAL IV DATA: Not applicable SIGNED BY: RT Tanisha(R) October 03, 2021 7:35 PM documented in this encounterFostoria [facility]05-02-[facility]22 NoteHNO ID: [id number] Author: Reji Rodriguez APRN.CATRACHITA Service: ? Author Type: Nurse Practitioner Type: Progress Notes Filed: 10/03/2021 4:08 PM Note Text: Patient is a nontoxic-appearing 56-year-old male with past medical history of neuropathy, paralyzed hemidiaphragm, diabetic neuropathy, osteoarthritis, radiculopathy, hypertension, hyperlipidemia, acute respiratory failure with hypoxia, pneumonia due to COVID-19, obstructive sleep apnea, diverticulitis, BHAVYA, type 2 diabetes, cellulitis, rheumatoid arthritis of the hand, gout, Raynaud's phenomenon presents to the office today for multiple medical complaints. Patient states of the past 2 weeks he has had an abscess to the groin has gradually become worse after pulling out several hairs. Patient states he has had a green appearance to without any active bleeding or drainage present. Patient denies any abdominal pain, nausea, vomiting, diarrhea or constipation. Patient denies any fever, burks, or chills. Patient states he also has been having intermittent dizziness for the past 2 weeks is worse with movement. Patient denies any syncopal events, visual disturbances, numbness or tingling. Patient states he has been staying hydrated and tried several maneuvers last night to alleviate symptoms however have not helped. 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 Patient also complains of tinnitus of bilateral ears with no known cause. Patient denies any chest pain, shortness of breath difficulty breathing. Given patient's complaint presentation a thorough exam was performed. Patient remains neurologically intact no focal deficits, has no nuchal rigidity, TMs are normal bilaterally no hemotympanum or effusion, EOMs are intact bilaterally no nystagmus or diplopia, pupils equal active round bilaterally, red light reflex intact, no adventitious lung sounds auscultated, speaking in complete sentences in no respiratory distress, cardiac sounds auscultated are regular, remains hemodynamically stable during office visit, does have small amount of induration and erythema to the anterior lower abdomen just superior to the pannus. I do suspect patient is likely experiencing folliculitis however given intermittent dizziness for the past 2 weeks I do believe a differential diagnosis of benign positional vertigo, acute intracranial process, peripheral vertigo, central vertigo is warranted and recommended emergency evaluation. Patient was agreeable with this plan. Report was called to [facility] emergency room patient was transported out of the office today to the emergency room in stable condition in no distress. Reji Rodriguez APRN.CATRACHITA This note was partially generated using Capt[employer]nSocial recognition system. [facility]05-02-2022 History of Present illness Narrative* RT Gabrielle(R) - 10/03/2021 5:49 PM EDT Radiology Service Progress Note PATIENT NAME: Jame Wallace DATE OF SERVICE: October 03, 2021 TIME: 5:49 PM PATIENT IDENTITY VERIFICATION COMPLETED USING TWO (2) IDENTIFIERS: Name and Date of confirmedby patient verbally and Name and Date of confirmed by identification band. FALL SCREENING: Has the patient had 2 falls in the last year or 1 fall with injury or currently using an Ambulatory Assistive Device (Walker, Cane, Wheelchair, Crutches, etc.)? Emergency Room Patient: Screened in ED PATIENT GENDER DATA: Male PATIENT RELEVANT IMPLANT DATA REVIEWED: Yes RADIOLOGY DEPARTMENT: CT; Exam(s) Completed: Brain PERIPHERAL IV DATA: Not applicable SIGNED BY: RT Antonella(R) October 03, 2021 5:49 PM documented in this encounterF[facility]05-02-[facility]22 History of Present illness Narrative* Reji Rodriguez APRN.CNP - 10/03/2021 4:04 PM EDT Patient is a nontoxic-appearing 56-year-old male with past medical history of neuropathy, paralyzedhemidiaphragm, diabetic neuropathy, osteoarthritis, radiculopathy, hypertension, hyperlipidemia, acute respiratory failure with hypoxia, pneumonia due to COVID-19, obstructive sleep apnea, diverticulitis, BHAVYA, type 2 diabetes, cellulitis, rheumatoid arthritis of the hand, gout, Raynaud's phenomenonpresents to the office today for multiple medical complaints. Patient states of the past 2 weeks hehas had an abscess to the groin has gradually become worse after pulling out several hairs. Patientstates he has had a green appearance to without any active bleeding or drainage present. Patient denies any abdominal pain, nausea, vomiting, diarrhea or constipation. Patient denies any fever, burks,or chills. Patient states he also has been having intermittent dizziness for the past 2 weeks is worse with movement. Patient denies any syncopal events, visual disturbances, numbness or tingling. Patient states he has been staying hydrated and tried several maneuvers last night to alleviate symptoms however have not helped. 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 Patient also complains of tinnitus of bilateral ears with no known cause. Patient denies any chest pain, shortness of breath difficulty breathing. Given patient's complaint presentation a thorough exam was performed. Patient remains neurologically intact no focal deficits, has no nuchal rigidity, TMs are normal bilaterally no hemotympanum or effusion, EOMs are intact bilaterally no nystagmus or diplopia, pupils equal active round bilaterally,red light reflex intact, no adventitious lung sounds auscultated, speaking in complete sentences inno respiratory distress, cardiac sounds auscultated are regular, remains hemodynamically stable during office visit, does have small amount of induration and erythema to the anterior lower abdomen just superior to the pannus. I do suspect patient is likely experiencing folliculitis however given intermittent dizziness for the past 2 weeks I do believe a differential diagnosis of benign positionalvertigo, acute intracranial process, peripheral vertigo, central vertigo is warranted and recommended emergency evaluation. Patient was agreeable with this plan. Report was called to [facility] emergency room patient was transported out of the office today to the emergency room in stable co ndition in no distress. Reji Rodriguez APRN.CNP This note was partially generated using [employer] voice recognition system. [facility] NoteHNO ID: [id number] Author: Ivone Banks PA-C Service: ? Author Type: Physician Shredding Machine Knife Changer Type: Progress Notes Filed: 09/15/2021 2:24 PM Note Text: Unknown Spinal Triage Referring Provider Dr. Jermaine Orta - pain management Per Triage: Jame Wallace is a 56 year old male that requests evaluation of cervical and lumbar spine. Per review, they have symptoms of lower back pain, leg pain, neck pain, arm pain, numbness, and weakness. CMT: Narcotics Tramadol Injections by Dr. Jermaine Orta, Studies (Reports unless indicated) 08/05/2021 - MRI of lumbar spine without contrast: Lumbar spondylosis as described, worst at L1-L2 with moderate to severe canal narrowing, and at L3-L4 with moderate to severe canal narrowing and effacement of the left articular recess. ?Findings are slightly progressed since 2016. Disposition: Please schedule with first available lumbar surgeon with a virtual visit or face to face visit based on patient preference. If virtual, please have images downloaded into [employer] prior to appointment. If face to face, please have patient bring disc of images to appointment. If the patient would like a sooner appointment, the patient can be placed on my schedule for initial evaluation. Ivone Bakns PA-C September 15, 2021 2:24 [facility]04-14-2022 History of Present illness Narrative* Ivone Banks PA-C - 09/15/2021 2:21 PM EDT Unknown Spinal Triage Referring Provider Dr. Jermaine Orta - pain management Per Triage: Jame Wallace is a 56 year old male that requests evaluation of cervical and lumbar spine. Per review, they have symptoms of lower back pain, leg pain, neck pain, arm pain, numbness, and weakness. CMT: Narcotics Tramadol Injections by Dr. Jermaine Orta, Studies (Reports unless indicated) 08/05/2021 - MRI of lumbar spine without contrast: Lumbar spondylosis as described, worst at L1-L2 with moderate to severe canal narrowing, and at L3-L4 with moderate to severe canal narrowing and effacement of the left articular recess. Findings are slightly progressed since 2016. Disposition: Please schedule with first available lumbar surgeon with a virtual visit or face to face visit based on patient preference. If virtual, please have images downloaded into [employer] prior to appointment. If face to face, please have patient bring disc of images to appointment. If the patientwould like a sooner appointment, the patient can be placed on my schedule for initial evaluation. Ivone Banks PA-C September 15, 2021 2:24 PM * Mavis Hoang - 09/15/2021 10:44 AM EDT Patient name: Jame Wallace Are you being referred by a [place] for Spine Health Provider or Pain Management Provider at [facility]? No If answer is YES please schedule directly with surgeon, triage does not need to be completed. Is this a self-referral No If not, who is the Referring Provider Jermaine Orta Is this a 2nd opinion, have you been offered surgery by another surgeon? No MRI/CT/myelogram within 12 months? Yes If NO, please refer to medical spine or PCP to complete above imaging, triage does not need to be completed If YES, please ask for the name/address of the facility where the MRI/CT/myelogram was completed: @[facility] MRI/CT/myelogram viewable in Epic: Yes If not, please provide [phone] to fax in imaging reports for review. Also, please inform patient to hand carry imaging disc to appointment. XR (spine) within 12 months: Yes If YES, please ask for the name/address of the facility where the XR was completed: @[facility] Requested provider (First and Last name): Unknown Are you interested in a virtual visit if offered? No 1. Where are you having symptoms related to this visit? Back pain Yes Leg pain Yes Arm pain Yes Neck pain Yes 2. Are you having any of the following symptoms: Difficulty walking No Numbness Yes Weakness Yes Trouble using your hands? No 3. Have you had any injections or physical therapy in the last 12 months? Yes If YES then please ask for the name/address of the facility where the injections and/or physical therapy was completed Injections @[facility] - Jermaine Orta Have you tried any other kinds of non-surgical treatments in the last 12 months? (For example: NSAIDS, muscle relaxants, analgesics, oral steroids, Chiropractor, Acupuncture): No 4. Are you currently taking daily prescribed narcotic medications for your current symptoms (For example Oxycodone, Hydrocodone, Tramadol, Morphine, Other)? Yes Tramadol 5. Have you had previous spinal surgery for this same symptoms? No If YES please ask for the name of facility/address of where the surgery was completed: N/A Additional Comments [phone] - documented in this encounterFostoria City [facility]04-14-2022 NoteHNO ID: [id number] Author: Mavis Hoang Service: ? Author Type: ? Type: Progress Notes Filed: 09/15/2021 2:24 PM Note Text: Patient name: Jame Wallace Are you being referred by a [facility] Spine Health Provider or Pain Management Provider at [facility]? No If answer is YES please schedule directly with surgeon, triage does not need to be completed. Is this a self-referral No If not, who is the Referring Provider Jermaine Orta Is this a 2nd opinion, have you been offered surgery by another surgeon? No MRI/CT/myelogram within 12 months? Yes If NO, please refer to medical spine or PCP to complete above imaging, triage does not need to be completed If YES,? please ask for the name/address of the facility where the MRI/CT/myelogram was completed: @[facility] MRI/CT/myelogram viewable in Epic: Yes If not, please provide [phone] to fax in imaging reports for review. Also, please inform patient to hand carry imaging disc to appointment. XR (spine) within 12 months: Yes If YES,? please ask for the name/address of the facility where the XR was completed: @[facility] Requested provider (First and Last name): Unknown Are you interested in a virtual visit if offered? No 1. Where are you having symptoms related to this visit? Back pain Yes Leg pain Yes Arm pain Yes Neck pain Yes 2. Are you having any of the following symptoms: Difficulty walking No Numbness Yes Weakness Yes Trouble using your hands? No 3. Have you had any injections or physical therapy in the last 12 months? Yes If YES then please ask for the name/address of the facility where the injections and/or physical therapy was completed Injections @[facility] - Jermaine Orta Have you tried any other kinds of non-surgical treatments in the last 12 months? (For example: NSAIDS, muscle relaxants, analgesics, oral steroids, Chiropractor, Acupuncture): No 4. Are you currently taking daily prescribed narcotic medications for your current symptoms (For example Oxycodone, Hydrocodone, Tramadol, Morphine, Other)? Yes Tramadol 5. Have you had previous spinal surgery for this same symptoms? No If YES? please ask for the name of facility/address of where the surgery was completed: N/A Additional Comments [phone] - [facility]11-04-2021 NoteHNO ID: [id number] Author: Veronique Vo MD Service: ? Author Type: Physician Type: Progress Notes Filed: 04/07/2021 5:42 PM Note Text: HPI: Hank presents in f/u of right buttock wound. EXAM: There were no vitals taken for this visit. Wound healing in nicely. Hypertrophic granulation tissue cauterized with silver nitrate. PATHOLOGY: none ASSESSMENT: (L02.31, L03.317) Cellulitis and abscess of buttock (primary encounter diagnosis) (A49.02) MRSA (methicillin resistant Staphylococcus aureus) infection Hank presents in f/u of right buttock wound. Cont gauze dressings. F/u in 2 weeks. No orders found for this visit on 04/07/21. Veronique Vo, [facility]10-21-2021 NoteHNO ID: [id number] Author: Veronique Vo MD Service: ? Author Type: Physician Type: Progress Notes Filed: 03/24/2021 11:27 AM Note Text: HPI: Hank presents in follow-up of his right buttock abscess. He is doing well. There is still some pinching when he sits. His is changing the dressing daily. EXAM: There were no vitals taken for this visit. Right buttock: The depth of the wound is much improved, no tunneling. Small amount of fibrinous exudate was removed in the office today with scalpel. Minimal bleeding. PATHOLOGY: None ASSESSMENT: (L02.31, L03.317) Cellulitis and abscess of buttock (primary encounter diagnosis) (A49.02) MRSA (methicillin resistant Staphylococcus aureus) infection Hank presents in follow-up of his right buttock abscess. This is healing in very nicely. They will continue dry gauze dressing changes 1-2 times per day. He will return to see me in 2 weeks. No antibiotics needed. Office Visit on 03/24/21 - VITAMIN A ORAL Veronique Vo, [facility]10-21-2021 NoteHNO ID: [id number] Author: Анна Lynne Service: ? Author Type: ? Type: Progress Notes Filed: 03/24/2021 11:27 AM Note Text: Pt states 4/10 on a pain scale. Pt c/o greenish/ white dischare. Shooting/ stabbing/ throbbing pain from sitting in car.[facility] 03-15-2021 NoteHNO ID: [id number] Author: Veronique Vo MD Service: ? Author Type: Physician Type: Progress Notes Filed: 03/15/2021 1:21 PM Note Text: HPI: Hank returns in follow-up of his right buttock abscess. He has completed his antibiotics. EXAM: There were no vitals taken for this visit. The right buttock wound has some fibrinous exudate that was excised in the office today. The wound was packed with dry gauze. PATHOLOGY: None ASSESSMENT: (L02.31, L03.317) Cellulitis and abscess of buttock (primary encounter diagnosis) (A49.02) MRSA (methicillin resistant Staphylococcus aureus) infection Hank returns in follow-up of his right buttock abscess that was drained in the OR on March 03. His was instructed on wound packing. He will return to see me in 1 week. No further antibiotics needed. No orders found for this visit on 03/15/21. Veronique Vo, [facility]05-06-2016 History of Past illness Narrative* Problem Noted Date Resolved Date Chronic bilateral low back pain with right-sided sciatica 10/08/2015 09/05/2016 Post-operative state 05/15/2013 08/11/2019 Subcutaneous mass 04/23/2013 05/15/2013 Diverticulitis of colon (wit hout mention of hemorrhage)(562.11) 01/19/2011 documented as of this encounter (statuses as of 09/15/2021) [facility] History of Past illness Narrative* Problem Noted Date Resolved Date Chronic bilateral low back pain with right-sided sciatica 10/08/2015 09/05/2016 Post-operative state 05/15/2013 08/11/2019 Subcutaneous mass 04/23/2013 05/15/2013 Diverticulitis of colon (wit hout mention of hemorrhage)(562.11) 01/19/2011 documented as of this encounter (statuses as of 10/03/2021) [facility] History of Past illness Narrative* Problem Noted Date Resolved Date Chronic bilateral low back pain with right-sided sciatica 10/08/2015 09/05/2016 Post-operative state 05/15/2013 08/11/2019 Subcutaneous mass 04/23/2013 05/15/2013 Diverticulitis of colon (wit hout mention of hemorrhage)(562.11) 01/19/2011 documented as of this encounter (statuses as of 10/03/2021) [facility] History of Past illness Narrative* Problem Noted Date Resolved Date Chronic bilateral low back pain with right-sided sciatica 10/08/2015 09/05/2016 Post-operative state 05/15/2013 08/11/2019 Subcutaneous mass 04/23/2013 05/15/2013 Diverticulitis of colon (wit hout mention of hemorrhage)(562.11) 01/19/2011 documented as of this encounter (statuses as of 02/08/2022) [facility] of Past illness Narrative* Problem Noted Date Diagnosed Date Resolved Date Chronic bilateral low back p ain with right-sided sciatica 10/08/2015 09/05/2016 Post-operative state 05/15/2013 020 Subcutaneous mass 04/23/2013 05/15/2013 Diverticulitis of colon (wit hout mention of hemorrhage)(562.11) 01/19/2011 documented as of this encounter (statuses as of 02/01/2023) [facility] Author Edmundo Wiggins [facility] Note Date/Time March 11, 2025 10 :37am [facility] Medical Records Department [address] [place] [address] Instructions for Home/Discharge Instructions 03/11/25 1036 MR#: [id number] Acct: [id number] Name: JAME WALLACE Rep #:[id number] : 1965 59 From: Edmundo Wiggins MD PCP: ELDON MarinaC Status:REG SDC Discharge Instructions DC O2, CPAP, BIPAP needs Home O2 Discharge instructions: No Dressing / Incision Discharge Activity: Return to Normal Activity and May Not Drive (while taking narcotic pain medications.) Dressing / Incision Call your doctor if you observe: Fever of 101 or Higher Follow Up Care Please Follow Up With: Edmundo Wiggins MD When: Call [phone] for an appointment Test Results: Test results from this visit will be discussed in further detail at your follow- up appointment, if applicable. Discharge Plan Admission Primary Reason for Your Visit: right kidney stone Attending Provider: Edmundo Wiggins Primary Care Provider: Griffin iLve NP Instructions Print Language: Greek Discharge Orders/Prescriptions Prescriptions: New cephalexin 500 mg capsule 500 mg PO Q6H Qty: 28 0RF phenazopyridine [Pyridium] 100 mg tablet 100 mg PO TID Qty: 20 0RF oxycodone 5 mg tablet 5 mg PO Q6H PRN (Reason: pain) 7 Days Qty: 20 0RF Continued magnesium oxide 500 mg capsule 500 mg PO DAILY (DME) prodigy Qty: 1 Dose Instruction: As directed Rx Instructions: As directed aspirin [Adult Low Dose Aspirin] 81 mg tablet,delayed release (DR/EC) 81 mg PO DAILY Patient Comments: LAST DOSE 02/19/25 FOR SURGERY 03/11/25 fluticasone propionate [Cutivate] 0.05 % cream 1 applic TOPICAL QD-BID PRN (Reason: allergic reaction) Qty: 60 12RF albuterol sulfate [Ventolin HFA] 90 mcg/actuation HFA aerosol inhaler 2 puff inhalation Q4H PRN (Reason: sob) Qty: 6.7 3RF amlodipine 5 mg tablet 5 mg PO DAILY Qty: 90 3RF bupropion HCl 100 mg tablet sustained-release 12 hr 100 mg PO BID Qty: 180 3RF celecoxib 200 mg capsule 200 mg PO BID Qty: 180 3RF gabapentin 400 mg capsule 400 mg PO TID 90 Days Qty: 270 3RF glimepiride 4 mg tablet 4 mg PO QAM Qty: 90 3RF metformin 850 mg tablet 850 mg PO BID Qty: 180 3RF metoprolol tartrate 37.5 mg tablet 37.5 mg PO BID Qty: 180 3RF mirtazapine 15 mg tablet 7.5 mg PO QHS PRN (Reason: sleep) 90 Days Qty: 90 3RF pioglitazone 45 mg tablet 45 mg PO DAILY Qty: 90 3RF sumatriptan succinate 50 mg tablet See Rx Instructions PO .COMPLEX 90 Days Qty: 20 3RF Dose Instruction: take 1 tab at onset of headache; if no relief may repeat 1 tab in 2hr; max = 4 tabs/day (24hr) PO Rx Instructions: take 1 tab at onset of headache; if no relief may repeat 1 tab in 2hr; max = 4 tabs/day (24hr) PO tramadol 50 mg tablet 50 mg PO TID Qty: 90 5RF atorvastatin 40 mg tablet 40 mg PO QHS Qty: 90 3RF Nurtec ODT 75 mg tablet,disintegrating 75 mg PO ONCE PRN (Reason: migraine headache) Rx Instructions: as a single dose Nurtec ODT 75 mg tablet,disintegrating 75 mg PO ONCE PRN (Reason: migraine headache) Qty: 7 12RF Rx Instructions: as a single dose furosemide 40 mg tablet 40 mg PO DAILY ketorolac 10 mg tablet 10 mg PO 4X/DAY PRN PRN (Reason: moderate pain) tamsulosin 0.4 mg capsule 0.4 mg PO DAILY meclizine 12.5 mg tablet 12.5 mg PO TID PRN (Reason: vertigo) ammonium lactate 12 % cream 1 applic TOPICAL PRN duloxetine 60 mg capsule,delayed release(DR/EC) 60 mg PO QHS Eliquis 5 mg tablet 5 mg PO BID Patient Comments: LAST DOSE TO BE 03/07/25 levothyroxine [Euthyrox] 75 mcg tablet 75 mcg PO QDAY Qty: 90 3RF Referrals / Follow Up: Edmundo Wiggins MD [Med Staff - Active Staff, Urology] Griffin Live NP, SCRIBING MACHINE OPERATOR-C [Primary Care Provider, Family Practice] Disposition Disposition (needs filled in before D/C Order can be placed): Home, Self Care 03/11/25 1037<Electronically signed by Edmundo Wiggins MD>Edmundo Wiggins MD CC: SCRIBING MACHINE OPERATOR-C rGiffin Live ~ Signed [facility] Work Phone: Evaluation + Plan note Future Appointments Appointment Date:05/22/2025 03:30:00 PM Scheduled Provider:LIMA COLE CNP Location:[place] [address] Appointment Type:Established Patient Office Psychiatric Evaluation note* Diagnosis Dizziness- Primary Dizziness and giddiness Folliculitis Other specified disease of hair and hair follicles [facility] Diagnosis Onset Date Resolution Status Painful skin lesion acute Sebaceous cyst acute Diabetes type 2, uncontrolled acute Fatigue acute Low testosterone acute Recurrent knee pain acute [facility] Work Phone: Evaluation note* Diagnosis Onset Date Resolution Status Diabetes type 2, uncontrolled acute Fatigue acute Low testosterone acute Recurrent knee pain acute Depression acute Diabetes type 2, uncontrolled acute Hypertension chronic [facility] Work Phone: Evaluation note* Diagnosis Onset Date Resolution Status Diabetes type 2, uncontrolled acute Lumbar back pain with radicu lopathy affecting lower extremity acute Diabetes type 2, uncontrolled acute Lumbar back pain with radicu lopathy affecting lower extremity acute Neuropathy acute Acute dyspnea acute Fatigue acute Left otitis media acute Post-COVID syndrome acute [facility] Work Phone: Evaluation note* Diagnosis Pain- Primary Generalized pain documented in this encounter [facility] note* Diagnosis Onset Date Resolution Status Depression acute Diabetes type 2, uncontrolled acute Hyperlipidemia LDL goal <130 acute Insomnia acute Migraine acute Hypertension [facility] Work Phone: History of Present illness Narrative* Interval Events: Since last seen patient was admitted with severe Covid and bilateral pneumonia. Hehas recovered but still requires oxygen at night. He still has overwhelming fatigue. He is still limited in things he can do. Since he developed Covid he reports more hand pain and swelling and he feels that the anti-inflammatory is no longer working. * Symptoms: Associated symptoms include joint swelling and joint stiffness. * Activities: no limitations. * Medications: the patient is adherent with his medication regimen. He denies medication side effects. -[facility] Work Phone: Hospital course Narrative No data available for this section [facility] Discharge instructions No data available for this section [facility] Progress note No data available for this section [facility] Reason for referral (narrative)* Diagnostic Procedure Only (Routine) - Authorized Specialty Diagnoses / Procedures Referred By Contac t Referred To Contact XR IMAGING Diagnoses Pain Procedures XR HAND GENERAL 3V PA/LAT/OBL LEFT RADEX HAND MINIMUM 3 VIEWS Vetov[employer]j, Madhuri, PA-C [address] [place] [address] [place] [address] Referral ID Status Reason Start Date Expiration Date Visits Requested Visits Authorized [id number] Authorized Auto-Generat ed Referral 02/01/2023 03/02/2024 1 1 * Diagnostic Procedure Only (Routine) - Authorized Specialty Diagnoses / Procedures Referred By Contac t Referred To Contact XR IMAGING Diagnoses Pain Procedures XR HAND GENERAL 3V PA/LAT/OBL RIGHT RADEX HAND MINIMUM 3 VIEWS Madhuri Phillips, PA-C [address] [place] [address] [place] [address] Referral ID Status Reason Start Date Expiration Date Visits Requested Visits Authorized [id number] Authorized Auto-Generat ed Referral 02/01/2023 03/02/2024 1 1 [facility]No reason for referral information availableWPomerene Hospital Work Phone: Summary Purpose Family History No Family History Records FoundUnknown Family Member Name Dates Details No pertinent family history( V49.89, Z78.9) Comments:Other Status:Active Unknown Family Member Name Dates Details No pertinent family history: Other(V49.89, Z78.9) Status:Active Unknown Family Member Name Dates Details No pertinent family history: Other(V49.89, Z78.9) Status:Active Unknown Family Member Name Dates Details No pertinent family history: Other(V49.89, Z78.9) Status:Active Unknown Family Member Name Dates Details No pertinent family history: Other(V49.89, Z78.9) Status:Active Relationship Condition Age at Onset Recorded Date/T zeeshan Not Specified Family history of ma lignant neoplasm of ovary Unknown Malignant neoplasm of esophagus Unknown Advance Directives No Advanced Directives Records FoundDocuments on File Type Date Recorded Patient Eating Disorder Specialist Expl anation Advance Directive(s) 08/11/2019 2:21 PM Latest Code Status on File Code Status Date Activated Date Inactivated Comments Full Code 03/03/2021 9:17 AM 03/06/2021 5:35 PM Full Code Order Discussed With: Patient Full Code 08/11/2020 12:29 PM 08/14/2020 1:40 AM Documents on File Type Date Recorded Patient Eating Disorder Specialist Expl anation Advance Directives and Living Will Power of Bindery Leadperson Documents on File Type Date Recorded Patient Eating Disorder Specialist Expl anation Advance Directive(s) 03/02/2021 5:26 PM Advance Directive(s) 02/11/2021 6:46 PM Advance Directive(s) 08/09/2020 3:09 AM Advance Directive(s) 10/22/2019 9:35 AM Advance Directive(s) 10/13/2019 4:48 PM Advance Directive(s) 08/11/2019 10:31 AM Advance Directive(s) 08/11/2019 2:21 PM Advance Directive(s) 03/20/2019 4:37 PM Advance Directive(s) 05/27/2018 9:34 PM Advance Directive(s) 08/07/2017 3:46 PM Documents on File Type Date Recorded Patient Eating Disorder Specialist Expl anation Advance Directive(s) 10/03/2021 4:51 PM Advance Directive(s) 03/02/2021 5:26 PM Advance Directive(s) 02/11/2021 6:46 PM Advance Directive(s) 08/09/2020 3:09 AM Advance Directive(s) 10/22/2019 9:35 AM Advance Directive(s) 10/13/2019 4:48 PM Advance Directive(s) 08/11/2019 10:31 AM Advance Directive(s) 08/11/2019 2:21 PM Advance Directive(s) 03/20/2019 4:37 PM Advance Directive(s) 05/27/2018 9:34 PM Advance Directive(s) 08/07/2017 3:46 PM Documents on File Type Date Recorded Patient Eating Disorder Specialist Expl anation Advance Directive(s) 08/11/2019 2:21 PM Latest Code Status on File Code Status Date Activated Date Inactivated Comments Full Code 03/03/2021 9:17 AM 03/06/2021 5:35 PM Question Answer Comments Full Code Order Discussed With: Patient Code Status History Code Status Date Activated Date Inactivated Comments Full Code 08/11/2020 12:29 PM 08/14/2020 1:40 AM Question Answer Comments Full Code Order Discussed With: Patient Date Activated Date Inactivated Comments 06/22/2009 4:33 PM 06/23/2009 2:12 PM Advance Directive Response Recorded Date/ Time Do you have a Healthcare Power of Bindery Leadperson? Yes March 06, 2025 2:04pm Chief Complaint OA 6 month F/U Chief Complaint and Reason for Visit Chief Complaint Possible cyst on but tox Diabetes Mellitus Type 2 & medrefills A1c Reason for Visit Painful skin lesion Sebaceous cyst Diabetes type 2, uncontrolled Fatigue Low testosterone Recurrent knee pain Chief Complaint Diabetes Mellitus Ty pe 2 & medrefills A1c medication refills Reason for Visit Diabetes type 2, unc ontrolled Fatigue Low testosterone Recurrent knee pain Depression Diabetes type 2, uncontrolled Hypertension Chief Complaint med refill Diabetes Mellitus Type 2 A1c & medrefills Sore throat H/A Sinus Reason for Visit Diabetes type 2, unc ontrolled Lumbar back pain with radiculopathy affecting lower extremity Diabetes type 2, uncontrolled Lumbar back pain with radiculopathy affecting lower extremity Neuropathy Acute dyspnea Fatigue Left otitis media Post-COVID syndrome Chief Complaint medication refills Reason for Visit Depression Diabetes type 2, uncontrolled Hyperlipidemia LDL goal <130 Insomnia Migraine Hypertension Chief Complaint Admit Date Diabetes Mellitus Type 2 A1c medrefills August 22, 2024 5:48pm LABWORK August 22, 2024 9:5 7pm Reason for Visit Admit Date Depression August 22, 2024 5:4 8pm Hyperglycemia due to type 2 diabetes maría litus August 22, 2024 5:48pm Migraine August 22, 2024 5:4 8pm Hypertension August 22, 2024 5:4 8pm Chief Complaint Admit Date Diabetes Mellitus Type 2 A1c medrefills August 22, 2024 5:48pm LABWORK August 22, 2024 9:5 7pm Sinus/cough October 23, 2024 5:39p m LABSPEC October 24, 2024 1:17a m Reason for Visit Admit Date Depression August 22, 2024 5:4 8pm Hyperglycemia due to type 2 diabetes maría litus August 22, 2024 5:48pm Migraine August 22, 2024 5:4 8pm Hypertension August 22, 2024 5:4 8pm Hypothyroidism October 23, 2024 5:39p m Leukocytosis October 23, 2024 5:39p m Maxillary sinusitis, acute October 23 5:39pm Right otitis media October 23, 2024 5:39p m Chief Complaint Admit Date H/A X7 days/meds November 27, 2024 3:58 pm CYSTO,URETERSCOPY,RETRO,LASER,STENT Octo 2024 7:42am Reason for Visit Admit Date Diabetes type 2, uncontrolled November 27, 2024 3:58pm Migraine NEC/intractable November 27, 2024 3:58pm Additional Source Comments (unrecognized sect ion and content) No Status Records FoundNo Status Records FoundNo Status Records FoundNo Status Records FoundNo Status Records FoundNo Status Records FoundNo Status Records FoundNo Status Records FoundNo Status Records FoundNo Status Records FoundNo Status Records FoundNo Status Records FoundNo Status Records Found INFORMATION SOURCE (unrecogn ized section and content) DATE CREATED AUTHOR 05/29/2018 [facility] DATE CREATED AUTHOR AUTHOR'S ORGANIZ ATION 02/11/2019 [facility] DATE CREATED AUTHOR AUTHOR'S ORGANIZ ATION 10/19/2019 [facility] DATE CREATED AUTHOR AUTHOR'S ORGANIZ ATION 12/25/2020 [facility] DATE CREATED AUTHOR AUTHOR'S ORGANIZ ATION 12/25/2020 [facility] DATE CREATED AUTHOR AUTHOR'S ORGANIZ ATION 02/09/2022 [facility] DATE CREATED AUTHOR AUTHOR'S ORGANIZ ATION 07/20/2023 [facility] DATE CREATED AUTHOR AUTHOR'S ORGANIZ ATION 02/25/2025 [facility] DATE CREATED AUTHOR AUTHOR'S ORGANIZ ATION 03/06/2025 [facility] [place] DATE CREATED AUTHOR AUTHOR'S ORGANIZ ATION 03/07/2025 [facility] DATE CREATED AUTHOR AUTHOR'S ORGANIZ ATION 03/13/2025 [facility] DATE CREATED AUTHOR AUTHOR'S ORGANIZ ATION 03/16/2025 [facility] DATE CREATED AUTHOR AUTHOR'S ORGANIZ ATION 03/18/2025 [facility] Source Comments (unrecognize d section and content) In the event this informatio n is protected by the Federal Confidentiality of Alcohol and Drug Abuse Patient Records regulations: The Federal rules restrict any use of the information to criminally investigate or prosecute any alcohol or drug abuse patient.[facility] the event this information is protected by the Federal Confidentiality of Alcohol and Drug Abuse Patient Records regulations: The Federal rules restrict any use of the information to criminally investigate or prosecute any alcohol or drug abuse patient.[facility] the event this information is protected by the Federal Confidentiality of Alcohol and Drug Abuse Patient Records regulations: The Federal rules restrict any use of the information to criminally investigate or prosecute any alcohol or drug abuse patient.[facility] the event this information is protected by the Federal Confidentiality of Alcohol and Drug Abuse Patient Records regulations: The Federal rules restrict any use of the information to criminally investigate or prosecute any alcohol or drug abuse patient.[facility] the event this information is protected by the Federal Confidentiality of Alcohol and Drug Abuse Patient Records regulations: The Federal rules restrict any use of the information to criminally investigate or prosecute any alcohol or drug abuse patient.[facility] the event this information is protected by the Federal Confidentiality of Alcohol and Drug Abuse Patient Records regulations: The Federal rules restrict any use of the information to criminally investigate or prosecute any alcohol or drug abuse patient.[facility] Care Teams (unrecognized sec tion and content) Chip Bin Operator Relationship Specialty Start Date End Date Griffin Live APRN.LINEN CONTROLLER [address] [place] [address] PCP - General Family Practice 07/23/15 Chip Bin Operator Relationship Specialty Start Date End Date Griffin Live APRN.LINEN CONTROLLER [address] [place] [address] PCP - General Family Practice 07/23/15 Chip Bin Operator Relationship Specialty Start Date End Date Griffin Live, DIRECTOR OF LAND ACQUISITION.LINEN CONTROLLER [address] [place] [address] PCP - General Family Practice 07/23/15 Chip Bin Operator Relationship Specialty Start Date End Date Griffin Live, DIRECTOR OF LAND ACQUISITION.LINEN CONTROLLER [address] [place], [place] [id number] PCP - General Family Practice 07/23/15 Team Status: Active Member Role Status Dates Griffin Live SCRIBING MACHINE OPERATOR, SCRIBING MACHINE OPERATOR-C Family Provider Active Griffin Live SCRIBING MACHINE OPERATOR, SCRIBING MACHINE OPERATOR-C Primary Care Provider Active Team Status: Inactive Member Role Status Dates Griffin Live SCRIBING MACHINE OPERATOR, SCRIBING MACHINE OPERATOR-C Primary Care Pr ovider, Attending Provider, Referring Provider Active Team Status: Inactive Member Role Status Dates Griffin Live SCRIBING MACHINE OPERATOR, SCRIBING MACHINE OPERATOR-C Primary Care Provider, Attend ing Provider Active Chip Bin Operator Relationship Specialty Start Date End Date Griffin Live, DIRECTOR OF LAND ACQUISITION.LINEN CONTROLLER [address] [place] [address] PCP - General Family Medicine 07/23/15 Chip Bin Operator Relationship Specialty Start Date End Date Griffin Live [address] [place] [address] PCP - General 05/20/18 Team Status: Inactive Member Role Status Dates Griffin Live SCRIBING MACHINE OPERATOR, SCRIBING MACHINE OPERATOR-C Primary Care Provider Active Start: August 22, 2024 End: August 22, 2024 Griffin Live SCRIBING MACHINE OPERATOR, SCRIBING MACHINE OPERATOR-C Attending Provider Active Start: August 22, 2024 End: August 22, 2024 Griffin Live SCRIBING MACHINE OPERATOR, SCRIBING MACHINE OPERATOR-C Referring Provider Active Start: August 22, 2024 End: August 22, 2024 Team Status: Inactive Member Role Status Dates Griffin Live SCRIBING MACHINE OPERATOR, SCRIBING MACHINE OPERATOR-C Primary Care Provider Active Start: October 23, 2024 End: October 23, 2024 Griffin Live NP, SCRIBING MACHINE OPERATOR-C Attending Provider Active Start: October 23, 2024 End: October 23, 2024 Griffin Live NP, SCRIBING MACHINE OPERATOR-C Referring Provider Active Start: October 23, 2024 End: October 23, 2024 Team Status: Inactive Member Role Status Dates Griffin Live NP, SCRIBING MACHINE OPERATOR-C Primary Care Provider Active Start: October 24, 2024 End: October 24, 2024 Griffin Live NP, SCRIBING MACHINE OPERATOR-C Attending Provider Active Start: October 24, 2024 End: October 24, 2024 Griffin Live NP, SCRIBING MACHINE OPERATOR-C Referring Provider Active Start: October 24, 2024 End: October 24, 2024 Team Status: Active Member Role/Relationship Status Dates Griffin Live NP, SCRIBING MACHINE OPERATOR-C Primary care physician Active Team Status: Inactive Member Role/Relationship Status Dates Griffin Live NP, SCRIBING MACHINE OPERATOR-C Primary care physician Active Start: November 27, 2024 End: November 27, 2024 Griffin Live NP, SCRIBING MACHINE OPERATOR-C Attending physician Active Start: November 27, 2024 End: November 27, 2024 Griffin Live NP, SCRIBING MACHINE OPERATOR-C Referring Provider Active Start: November 27, 2024 End: November 27, 2024 Team Status: Inactive Member Role/Relationship Status Dates Griffin Live NP, SCRIBING MACHINE OPERATOR-C Primary care physician Active Start: March 11, 2025 End: March 11, 2025 Dr. Edmundo Wiggins MD Attending physician Active Start: March 11, 2025 End: March 11, 2025 Dr. Edmundo Wiggins MD Referring Provider Active Start: March 11, 2025 End: March 11, 2025 Reason for Visit (unrecogniz ed section and content) Reason Comments Abscess turning green, x 2 w eeks Reason Comments Radiology CT Reason Comments Radio Gen RMP Reason Onset Date Comments Population Health Navigation Outreach 02/08/2022 [facility] Reason Onset Date Comments Dizziness 07/18/2023 Reason Onset Date Comments need to be seen for large kidney stone Goals (unrecognized section and content) Goals may be documented in a n alternate sectionGoals may be documented in an alternate sectionGoals may be documented in an alternate sectionGoals may be documented in an alternate sectionGoals may be documented in an alternate sectionGoals may be documented in an alternate section No data available for this section No data available for this section No data available for this section FOR RECORDS PERTAINING TO PATIENTS WHO ARE OR HAVE BEEN ENROLLED IN A CHEMICAL DEPENDENCY/SUBSTANCEABUSE PROGRAM, SOME INFORMATION MAY BE OMITTED. This clinical summary was aggregated from multiple sources. Caution should be exercised in using it in the provision of clinical care. This summary normalizes information from multiple sources, and as a consequence, information in this document may materially change the coding, format and clinical context of patient data. In addition, data may be omitted in some cases. CLINICAL DECISIONS SHOULD BE BASED ON THE PRIMARY CLINICAL RECORDS. [facility]. provides no warranty or guarantee of the accuracy or completeness of information in this document.
[2025-03-18] MEDS: 0.9% Normal Saline (1000mL) 1,000 ML 1000 ML IV ×2 (19:21→21:19)
[2025-03-18 19:35] LABS: Hematocrit 34.1 % (40-54); Hemoglobin 11.1 g/dL (13.0-16.5); Immature Granulocytes Count 0.030 X10^3/uL (0.0-0.0); Mean Corp Hgb Conc 32.6 g/dL (32-36); Mean Corpuscular Volume 94.7 fL (80-94); Mean Platelet Vol. 12.3 fl (6.2-12.0); NRBC Flagged by Analyzer 0 % (0-5); Platelet Count 245 K/mm3 (150-450); RBC Distribution Width CV 13.2 % (11.6-14.6); RBC Distribution Width SD 45.5 fl (35.1-43.9); Red Blood Count 3.60 M/mm3 (4.6-6.2); White Blood Count 10.8 K/mm3 (4.4-11.0)
--- NOTE | 2025-03-18 19:35 | RAD_ITS ---
PROCEDURE: CHEST PA AND LATERAL 03/18/2025 REASON FOR EXAM: DYSPNEA TECHNIQUE: Procedure Code: RADCXR Modality: DX Procedure: CHEST PA AND LATERAL COMPARISON: 03/16/2025 FINDINGS: Elevated right hemidiaphragm, unchanged. Likely associated mild right basilar subsegmental atelectasis. No pneumothorax or sizable pleural effusion. Cardiac silhouette is normal in size. No significant osseous abnormality. Cholecystectomy surgical clips. RAD/Chest PA and Lateral IMPRESSION: Elevated right hemidiaphragm, likely with overlying atelectasis. Unchanged. Reading Location: [id number]
[2025-03-18 19:59] LABS: Anion Gap 9 (5-15); BUN 69 mg/dL (4-19); BUN/Creat Ratio 40.4 RATIO (10-20); Calcium,Total 9.5 mg/dL (7.6-11.0); Carbon Dioxide 30.2 mmol/L (21.0-32.0); Chloride 99 mmol/L (98-108); Estimated Creatinine Clearance 77.42 ml/min (50-250); Glucose 180 mg/dL (70-99); Potassium 5.0 mmol/L (3.3-5.1); Pro- Brain NATRIURETIC PEPTIDE 128 pg/mL (<=900)
[2025-03-18 20:07] LABS: D-Dimer Quantitative (DVT/PE) < 0.27 FEU/ug/m (0.27-0.49)
[2025-03-18 20:37] LABS: Mucous, Urine 0 SEEN /hpf (<or=2+); Squamous Epithelial Cells - UA 0 SEEN /hpf (0-5)
[2025-03-18] MEDS: Pantoprazole Sodium 80 MG in 0.9% Normal Saline (50mL Bag) 15 ML 420 MG IV BOLUS (21:49)
--- NOTE | 2025-03-18 21:52 | PCM.HP.STD ---
HPI - General General Date of Admission: 03/18/25 Date of Service: 03/18/25 HPI Narrative JAME GRAY, is a 59 M with a PMH as outlined who was admitted via the ED on 03/18/2025 with a complaint of lightheadedness and near syncope. Patient apparently feels lightheaded whenever he gets up and has gone on over the past 2 weeks. He feels dizzy and lightheaded when he stands and feels better when he sits down and has also had several episodes of syncope. He has had associated tinnitus and spinning sensation and states his face feels flushed and he has blurry vision at times associated with this. He denied any nausea or vomiting, fever or chills, chest pain or palpitations. He denied any diarrhea but admitted to dark stools. He had recently been on oral toradol for kidney stones and is also chronically on celebrex at home. Review of systems otherwise negative. He went to see his PCP today and was told to come into the ED. Vitals in the ED were blood pressure 110/53, pulse rate of 76, respiratory rate of 15 and she was saturating at 97% on room air. CBC showed hemoglobin of 11.1 and WBC of 10.8. Platelets were 245. D-dimer was less than 0.27. Chemistry shows sodium of 138 with potassium of 5 and bicarb of 30.2. Creatinine is 1.7. URinalysis showed evidence of UTI with 3+ bacteria, elevated wbc and nitrites. Chest x-ray showed elevated right hemidiaphragm likely with overlying atelectasis which was unchanged from prior imaging but no other acute cardiopulmonary pathology. His hemoglobin was noted to have dropped from 12.7 on 03/16/2025 to 11.1 today. Stool for occult blood done was positive. He is on Eliquis. Was started on pantoprazole drip after getting pantoprazole bolus in the ED and is being admitted to be managed for dizziness and near syncope due to acute GI bleed. [facility] Medical History Diabetes Chronic pain Kidney stones Atrial fibrillation Congestive heart failure (CHF) Wears glasses Vertigo History of MRSA infection Cancer Neuropathy Rheumatoid arthritis Arthritis High cholesterol Excessive bleeding Dietary restriction History of diverticulitis Sleep apnea Non-smoker History of echocardiogram History of stress test Hypertension Cardiology follow-up encounter History of atrial fibrillation History of CHF (congestive heart failure) Hypothyroidism Depression Diaphragm dysfunction Dupuytren's fibromatosis Basal cell carcinoma (BCC) in situ of skin Insomnia Bursitis of right shoulder Pneumonia Diverticulitis Diabetes type 2, controlled Hypoglycemia Gout Hyperlipidemia LDL goal <130 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 Home Medications ?Medication ?Instructions ?Recorded ?Last Taken ?Type prodigy #1 ea 03/02/18 Unknown History fluticasone propionate 0.05 % 1 applic topical QD-BID PRN 11/05/20 Unknown Rx topical cream (Cutivate) allergic reaction #60 grams albuterol sulfate 90 mcg/actuation 2 puff inhalation Q4H PRN sob #6.7 08/22/24 Unknown Rx aerosol inhaler (Ventolin HFA) grams bupropion HCl 100 mg tablet,12 hr 100 mg PO BID #180 tabs 08/22/24 03/18/25 23:50 Rx sustained-release celecoxib 200 mg capsule 200 mg PO BID #180 caps 08/22/24 03/18/25 11:50 Rx gabapentin 400 mg capsule 400 mg PO TID 90 days #270 caps 08/22/24 03/18/25 06:51 Rx glimepiride 4 mg tablet 4 mg PO QAM #90 tabs 08/22/24 03/18/25 06:51 Rx metformin 850 mg tablet 850 mg PO BID #180 tabs 08/22/24 03/18/25 06:52 Rx metoprolol tartrate 37.5 mg tablet 37.5 mg PO BID #180 tabs 08/22/24 03/18/25 06:52 Rx mirtazapine 15 mg tablet 7.5 mg (1/2 x 15 mg) PO QHS PRN 08/22/24 03/17/25 23:52 Rx sleep 90 days #90 tabs pioglitazone 45 mg tablet 45 mg PO DAILY #90 tabs 08/22/24 03/17/25 18:53 Rx tramadol 50 mg tablet 50 mg PO TID neuropathic pain #90 08/22/24 03/18/25 06:54 Rx tabs levothyroxine 75 mcg tablet 75 mcg PO QDAY #90 tabs 11/03/24 03/18/25 06:51 Rx (Euthyrox) atorvastatin 40 mg tablet 40 mg PO QHS #90 tabs 11/27/24 03/17/25 23:49 Rx ammonium lactate 12 % topical cream 1 applic topical PRN CRACKED HANDS 03/06/25 Unknown History duloxetine 60 mg capsule,delayed 60 mg PO QHS depression 03/06/25 03/17/25 23:50 History release ketorolac 10 mg tablet 10 mg PO 4X/DAY PRN PRN moderate 03/06/25 03/10/25 History pain tamsulosin 0.4 mg capsule 0.4 mg PO DAILY enlarged prostate 03/06/25 03/18/25 06:54 History oxycodone 5 mg tablet 5 mg PO Q6H PRN pain 7 days #20 03/11/25 03/15/25 Rx tabs spironolactone 25 mg tablet 25 mg PO DAILY #30 tabs 03/17/25 Unknown Rx apixaban 5 mg tablet (Eliquis) 5 mg PO BID Afib 03/18/25 03/18/25 06:54 History furosemide 40 mg tablet 40 mg PO .qd CHF 03/18/25 03/17/25 06:55 History magnesium oxide 250 mg PO DAILY supplement 03/18/25 03/18/25 06:52 History multivitamin 1 tab PO DAILY supplement 03/18/25 03/18/25 06:52 History ondansetron 4 mg disintegrating 4 mg PO Q8H PRN PRN nausea 03/18/25 Unknown History tablet Allergy/AdvReac Type Severity Reaction Status Date / Time No Known Allergies Allergy Verified 03/18/25 18:06 Family History Other Esophageal cancer FH: ovarian cancer Surgical History History of surgery History of foot surgery History of colonoscopy Lump of skin of back History of colectomy History of appendectomy History of cholecystectomy Social History household members: spouse Smoking Status: Never smoker ROS Constitutional Constitutional: Reports fatigue, malaise and weakness; Denies anorexia, chills or fever(s) Eyes Eyes: Denies change in vision ENT HEENT: Denies dysphagia, epistaxis, headache(s) or sore throat Cardiovascular Cardiovascular: Reports lightheadedness and syncope; Denies chest pain, dyspnea on exertion, edema, orthopnea, palpitations, paroxysmal nocturnal dyspnea or rapid heart rate Respiratory/Chest Respiratory/Chest: Denies cough, dyspnea, shortness of breath at rest, shortness of breath with exertion or wheezing Gastrointestinal Gastrointestinal: Reports melena; Denies abdominal pain, diarrhea, dyspepsia, nausea or vomiting Genitourinary Genitourinary: Denies burning urination or dysuria Musculoskeletal Musculoskeletal: Denies arthralgias Neurologic Neurologic: Reports dizziness and syncope; Denies confusion, disequilibrium, focal weakness, headache(s), numbness or seizures Psychiatric Psychiatric: Denies anxiety or depression Vital Signs Vital Signs Vital Signs: 03/18/25 18:06 03/18/25 18:37 03/18/25 19:06 Temperature 97.2 F L Temperature Source Temporal Pulse Rate 84 85 Pulse Rate [Lying] Pulse Rate [Sitting (for 1 minute prior to obtaining)] Pulse Rate [Standing (for 1 minute prior to obtaining)] Respiratory Rate 20 H 24 H Respiratory Pattern Normal Blood Pressure 117/64 110/63 Blood Pressure [Lying] Blood Pressure [Sitting (for 1 minute prior to obtaining)] Blood Pressure [Standing (for 1 minute prior to obtaining)] Blood Pressure Mean 81 78 Blood Pressure Mean [Lying] Blood Pressure Mean [Sitting (for 1 minute prior to obtaining)] Blood Pressure Mean [Standing (for 1 minute prior to obtaining)] Pulse Ox 95 100 Oxygen Delivery Method Room Air Room Air 03/18/25 19:23 03/18/25 20:00 03/18/25 21:00 Temperature Temperature Source Pulse Rate 75 76 Pulse Rate [Lying] 79 Pulse Rate [Sitting (for 1 minute prior to obtaining)] 78 Pulse Rate [Standing (for 1 minute prior to obtaining)] 130 H Respiratory Rate 13 15 Respiratory Pattern Blood Pressure 94/65 110/53 L Blood Pressure [Lying] 114/61 Blood Pressure [Sitting (for 1 minute prior to obtaining)] 101/63 Blood Pressure [Standing (for 1 minute prior to obtaining)] 73/51 L Blood Pressure Mean 74 72 Blood Pressure Mean [Lying] 78 Blood Pressure Mean [Sitting (for 1 minute prior to obtaining)] 75 Blood Pressure Mean [Standing (for 1 minute prior to obtaining)] 58 Pulse Ox 98 97 Oxygen Delivery Method Room Air Room Air Weight Weight: 365 lb 1.368 oz Body Mass Index (BMI) 46.8 Physical Exam Const alert, oriented x3 and no apparent distress Constitutional Narrative: class III obesity HEENT normocephalic, head/scalp atraumatic, moist oral mucous membranes and oropharynx normal Mouth: oral and palatal mucosa normal Eyes PERRL, EOMs intact bilaterally and conjunctivae normal Neck supple and no JVD Resp normal respiratory effort, no retractions, no use of accessory muscles and clear to auscultation bilaterally Cardio regular rate, regular rhythm, S1 normal heart sound, S2 normal heart sound and no murmurs GI normal to inspection, nondistended, normoactive bowel sounds, soft to palpation, non-tender and non-distended Extremity normal to inspection, full ROM and no clubbing, cyanosis or edema Neuro oriented x3, moves all extremities and no focal motor deficits Sensorium / Orientation: awake and alert Motor Exam: strength 5/5 throughout Results Lab / Micro Data 03/19/25 04:36 03/19/25 04:36 Labs: Laboratory Results - last 24 hr 03/18/25 18:34: WBC 10.8, RBC 3.60 L, Hgb 11.1 L, Hct 34.1 L, MCV 94.7 H, MCH 30.8, MCHC 32.6, RDW Std Deviation 45.5 H, RDW Coeff of Sarah 13.2, Plt Count 245, MPV 12.3 H, Immature Gran % (Auto) 0.300, Neut % (Auto) 66.1, Lymph % (Auto) 18.6 L, Mason % (Auto) 11.3 H, Eos % (Auto) 3.1, Baso % (Auto) 0.6, Absolute Neuts (auto) 7.1, Absolute Lymphs (auto) 2.00, Nucleated RBC % 0, D-Dimer Quant (PE/DVT) < 0.27 L, Sodium 138, Potassium 5.0, Chloride 99, Carbon Dioxide 30.2, Anion Gap 9, BUN 69 H, Creatinine 1.70 H, Estim Creat Clear Calc 77.42, Est GFR (MDRD) Non-Af 46 L, BUN/Creatinine Ratio 40.4 H, Glucose 180 H, Calcium 9.5, NT pro BNP II 128 Imaging Radiology Impression Chest X-Ray 03/18/25 19:35 IMPRESSION: Elevated right hemidiaphragm, likely with overlying atelectasis. Unchanged. Reading Location: [facility] Assessment & Plan Assessment/Plan (1) Orthostatic hypotension: (2) Acute upper gastrointestinal bleeding: PLAN: Plan #Syncope likely due to acute GI bleed Patient admitted with complaint of dizziness and lightheadedness. The symptoms were worsened when he got up from a sitting position. He also had some episodes of syncope. Hemoglobin noted to have dropped from 12.72 days ago to 11.1 today. His baseline is usually around 13-14. Stool for occult blood and was positive. He is on Eliquis. Admit to [facility]. Hold Eliquis. Started on IV pantoprazole drip in the ED after being given a bolus. Will continue this. Keep n.p.o. for now. Hydrate with IV fluid normal saline at 125 cc/h. Consult gastroenterology. Consult PT OT. Fall precautions. Check orthostatics. Hold NSAIDs-toradol and celebrex #BHAVYA: Creatinine is 1.7 with a baseline creatinine of around 1.4. Likely due to GI bleed. Will hydrate with IV fluids and expect will improve. #UTI: urinalysis showed 2+ bacteria. Will get urine cultures. Start on IV ceftriaxone. #Hyperlipidemia: On statin #Depression: Bupropion and duloxetine #Type 2 diabetes mellitus: Hold glimepiride and metformin. Insulin sliding scale. Accu-Cheks ACHS. #Hypothyroidism: On Synthroid #Hypertension: On metoprolol and spironolactone #BPH: On Flomax DVT prophylaxis: SCDs in light of GI bleed CODE STATUS: full code Patient and family counseled extensively about different types of CODE STATUS including full code, DNR CCA and DNR CCA. Patient elects to be full code. Total [id number] time 16 minutes. Charges/Coding Visit Charges Inpatient E&M: 44301 Init Hosp L3 Procedures Hospitalists Procedures: 28209 Advncd Care Plan 30 Min
[2025-03-18 22:07] LABS: Color, Urine Yellow (Yellow); Glucose, Dipstick 100 mg/dl (Normal); Ketone-Dipstick Negative (Negative); Leukocyte Esterase-Dipstick 500 /ul (Negative); Nitrite-Dipstick Positive (Negative); Occult Blood-Urine 250 /ul (Negative); Protein-Dipstick 100 mg/dl (Negative); Specific Gravity, Urine 1.020 (1.002-1.030)
[2025-03-18 22:09] LABS: Urine Bilirubin Dipstick 1 mg/dL (Negative)
[2025-03-18] MEDS: Pantoprazole Sodium 80 MG in 0.9% Normal Saline (100mL Bag) 80 ML 10 MG CONT INF (22:28)
[2025-03-18 22:55] LABS: Red Blood Cells-Urine 25-50 SEEN /hpf (0-5)
--- OUTSIDE RECORDS SUMMARY | 2025-03-18 23:12 | XMS RPT_ITS | CCD ---
Author Organization [facility] Care Team Providers Care Office Clin Asst Name Role Phone Rosie Guerrero Unavailable Unavailable Jenny Live Unavailable Unavailable Rosie Guerrero Unavailable Unavailable Ifeanyi Calero Unavailable Unavailable Unavailable Unavailable Unavailable Jenny Live Primary Care Provider [phone] Jenny Live Unavailable Unavailable Unavailable Calos RAMPMAN.COSTUME SHOP COORDINATOR Jenny L Primary Care Provide r Calos RAMPMAN.COSTUME SHOP COORDINATOR Jenny L Primary Care Provide r Calos RAMPMAN.SHIMA Jenny L Primary Care Provide r Jenny Live Primary Care Provider [phone] [facility] BUSINESS SERVICES COORDINATOR-C, Jenny Primary Care Provider Calos BUSINESS SERVICES COORDINATOR-CJenny Attending Provider Calos BUSINESS SERVICES COORDINATOR-C, Jenny Referring Provider JENNY LIVE Primary Care Physician Unavailable Primary Care Provider UnavailDANI Scott Referring Unavailable DANI ROPER Referring Unavailable LIVE JENNY Primary Care Unavailable LIVE JENNY Primary Care Unavailable LIVE JENNY Primary Care Unavailable LIVE, JENNY Primary Care Unavailable ZARIA SEAMAN, SARAH Consulting UnavailLULA Mackey DO Admitting Unavailable LIVE, JENNY Primary Care Unavailable BONY BOYD MD Consulting Unavailmariela Live BUSINESS SERVICES COORDINATOR-C, Jenny Primary Care Physician [phone] [facility] BUSINESS SERVICES COORDINATOR-C, Jenny Attending Physician Calos BUSINESS SERVICES COORDINATOR-C, Jenny Referring Provider Rosalie SEAMAN, Dr. Edmundo Manriquez Attending Physician Rosalie SEAMAN, Dr. Edmundo Manriquez Referring Provider [phone] LIVE, JENNY L Primary Care Unavailable MACARIO CRESPO Attending Unavailable LIVE, JENNY L Primary Care Unavailable DENY VIVAR Attending Unavailable LIVE, JENNY L Primary Care Unavailable CECY HUSSEIN Attending Unava ilable LIVE, JENNY L Primary Care Unavailable MACARIO CRESPO Attending Unavailable LIVE, JENNY L Primary Care Unavailable JANETTE MCNAMARA Attending Unavailable Mikala, Kindra Consulting Unavailable Calos BUSINESS SERVICES COORDINATOR, Jenny Primary Care Unavailable Juvenal Cedillo Attending Unavailable Jame Bashir Admitting Unavailable Japresley, Coreymad Consulting Unavailable Karim, Adham Consulting Unavailable Mostafa, Mana Consulting Unavailable Zach, Kassidy Consulting Unavailable Artie Marquez Consulting Unavailable Logan, Leonard Consulting Unavailable Nguyen, Juvenal Consulting Unavailable Jame Zuluaga Consulting Unavailable Brooke Slater Consulting Unavailable Bony Manuel Consulting Unavailable Yesy Locke Consulting UnavailAnselmo Ng Consulting Unavailable Richard De La Torre Consulting Unavailable Elbert Shaffer Consulting Unavailable Macario Rodriguez Consulting Unavailable Janette Washington Consulting UnavailErnst Felipe Consulting Unavailable Jame Bashir Consulting Unavailable Herbert Mane Consulting Unavailable Jame Bashir Attending Unavailable [place] BUSINESS SERVICES COORDINATOR, Jenny Primary Care Unavailable Edmundo Wiggins Referring Unavailable Edmundo Wiggins Attending Unavailable Calos BUSINESS SERVICES COORDINATOR, Jenny Primary Care Unavailable Herbert Mane Attending Unavailable Mikala, Coreymed Consulting Unavailable Jame Bashir Admitting Unavailable Yasmani, Coreymaedel Consulting Unavailable Karim, Adham Consulting Unavailable Mostafa, Mana Consulting Unavailable Zach, Kassidy Consulting Unavailable Artie Marquez Consulting Unavailable Logan, Leonard Consulting Unavailable Juvenal Cedillo Consulting Unavailable Jame Zuluaga Consulting Unavailable Brooke Slater Consulting Unavailable Bony Manuel Consulting Unavailable Yesy Locke Consulting UnavailAnselmo Ng Consulting Unavailable Richard De La Torre Consulting Unavailable Elbert Shaffer Consulting Unavailable Macario Rodriguez Consulting Unavailable Janette Washington Consulting UnavailErnst Felipe Consulting Unavailable Jame Bashir Consulting Unavailable Calos BUSINESS SERVICES COORDINATOR, Jenny Referring Unavailable Calos BUSINESS SERVICES COORDINATOR, Jenny Attending Unavailable Calos BUSINESS SERVICES COORDINATOR, Jenny Primary Care Unavailable Calos BUSINESS SERVICES COORDINATOR, Jenny Referring Unavailable Calos BUSINESS SERVICES COORDINATOR, Jenny Attending Unavailable Calos BUSINESS SERVICES COORDINATOR, Jenny Primary Care Unavailable Allergies Allergy Classification Reported Allergen(s) Allergy Type Date of Onset Reaction(s) Facility pregabalin (3 sources) pregabalin; Translations: [Lyrica CAPS] Drug Allergy [facility] Work Phone: (9 sources) pregabalin; Translations: [Lyrica CAPS] Drug Allergy 03-06-2021 Unknown [facility] Work Phone: (2 sources) pregabalin; Translations: [PREGABALIN] Drug Allergy 03-06-2021 [facility] Other [place] [facility] Medications Current Medications Medication Drug Class(es) Dates Sig (Normalized) Sig (Original) acetaminophen 325 mg / oxyCODONE hydrochloride 5 mg oral tablet (8 sources) Opioid Agonist Start: 02-16-2025 End: 02-19-2025 take 1 tablet by mouth every six hours as needed for pain Percocet 5 mg-325 mg oral tablet 1 tabs, ORAL, [id number], PRN PRN as needed for pain, X [...] on above: Take 1 capsule by mo uth four times daily for 5 days. ciprofloxacin 500 mg oral tablet (2 sources) Quinolone Antimicrobial Start: 02-17-20 End: 02-24-20 ciprofloxacin 500 mg oral tablet 500 mg 1 tabs, ORAL, [id number], 7 days, 14 tabs, Date: 02/16/25 3:47:00 PM EDT, Tablet Start Date: 02/16/25 Stop Date: 02/23/25 Status: Ordered Quantity: 14.0 Unit: tabs Repeat number: 1 DULoxetine 60 mg delayed release oral capsule (20 sources) Serotonin and Norepinephrine Reuptake Inhibitor Start: 03-06-20 take 1 capsule by mouth at bedtime Duloxetine 60 mg capsule,delayed release(DR/EC) Active 60 mg PO AT BEDTIME March 06, 2025 12:00am Complies with drug therapy Start: 12-03-2020 End: 03-06-2025 Cymbalta 60 mg oral delayed release capsule 60 mg 1 caps, ORAL, DAILY, (do not crush or chew), 90 caps, Date: 02/16/25 2:04:00 PM EDT, Capsule CR Start Date: 02/16/25 Status: Ordered Quantity: 90.0 Unit: caps Repeat number: 1 Start: 07-22-2020 End: 12-03-2020 take 60 mg by mouth once daily Duloxetine Discontinued 60 MG PO DAILY July 22, 2020 12:26pm December 03, 2020 5:55pm Start: 01-10-2019 End: 07-22-2020 take 1 capsule by mouth once daily Duloxetine 30 mg capsule,delayed release(DR/EC) Discontinued 30 mg PO DAILY 30 March 16, 2020 4:02pm July 22, 2020 1:27pm Start: 01-03-2019 End: 12-03-2020 take 2 capsules by mouth once daily Duloxetine 30 mg capsule,delayed release(DR/EC) Discontinued 60 mg PO DAILY 30 July 22, 2020 1:26pm December 03, 2020 6:55pm take 3 capsules by m outh once daily at bedtime DULoxetine (CYMBALTA) 20 mg capsule Take 60 mg by mouth daily at bedtime. 0 Active Comment on above: Take 60 mg by mouth daily at bedtime. furosemide 40 mg oral tablet (3 sources) Loop Diuretic Start: 03-06-2025 take 1 tablet by mouth once daily Furosemide 40 mg tablet Active 40 mg PO DAILY March 06, 2025 12:00am Complies with drug therapy Start: 02-22-2025 furosemide 40 mg oral tablet 40 mg 1 tabs, ORAL, DAILY BEFORE BREAKFAST, 30 tabs, Date: 02/22/25 2:43:00 PM EDT, [facility], Tablet, 1 tabs ORAL DAILY BEFORE BREAKFAST, 187.96, 02/19/2025 02:14:00 EDT, Height/Length Dosing, cm, 174.4, 02/19/2025 02:14:00 EDT, Weight Dosing, kg Start Date: 02/22/25 Status: Ordered Quantity: 30.0 Unit: tabs Repeat number: 12 ketorolac tromethamine 10 mg oral tablet (2 sources) Nonsteroidal Anti-inflammatory Drug, Cyclooxygenase Inhibitor Start: 03-06-2025 take 1 tablet by mouth four times daily as needed for pain Ketorolac 10 mg tablet Active 10 mg PO 4 TIMES DAILY NEEDED as needed for moderate pain March 06, 2025 12:00am Complies with drug therapy Start: 02-16-2025 End: 02-21-2025 ketorolac 10 mg oral tablet 10 mg 1 tabs, ORAL, QID, PRN, 5 days, 20 tabs, Date: 02/16/25 3:46:00 PM EDT, Tablet Start Date: 02/16/25 Stop Date: 02/21/25 Status: Ordered Quantity: 20.0 Unit: tabs Repeat number: 1 ammonium lactate 120 mg/ml topical cream (20 sources) Start: 03-06-2025 Ammonium Lacta te 12 % cream Active 1 NMA TOPICAL NEEDED March 06, 2025 12:00am CRACKED HANDS Complies with drug therapy Start: 08-18-2020 End: 05-25-2022 Ammonium Lactate 12 % cream Discontinued 1 NMA TOPICAL DAILY 140 August 18, 2020 3:35pm May 25, 2022 6:39pm Start: 08-18-2020 End: 03-06-2025 Ammonium Lactate 12 % cream Discontinued 1 NMA TOPICAL DAILY 140 May 25, 2022 6:37pm March 06, 2025 2:03pm Start: 08-18-2020 Ammonium Lacta te 12 % External Cream APPLY 1 APPLICATION TOPICALLY TO AFFECTED AREA DAILY Quantity: 140 Refills: 0 Ordered: 18-Aug-2020 DO Start : 18-Aug-2020 Active Start: 03-02-2018 End: 08-18-2020 Ammonium Lactate 12 % cream Discontinued 1 NMA TOPICAL DAILY 140 April 23, 2018 6:22pm August 18, 2020 3:36pm levothyroxine sodium 0.075 m g oral tablet (7 sources) l-Thyroxine Start: 02-16-2025 Synthroid 75 m cg (0.075 mg) oral tablet 75 mcg 1 tabs, ORAL, DAILY, 90 tabs, Date: 02/16/25 2:04:00 PM EDT, Tablet Start Date: 02/16/25 Status: Ordered Quantity: 90.0 Unit: tabs Repeat number: 1 Start: 11-03-2024 take 1 tablet by rocael th once daily Levothyroxine (Euthyrox) 75 mcg tablet Active 75 ug PO daily 90 3 November 03, 2024 12:00am Complies with drug therapy Start: 08-26-2024 End: 03-06-2025 take 1 tablet by mouth once daily Levothyroxine 50 mcg tablet Discontinued 50 ug PO daily 90 August 26, 2024 12:00am March 06, 2025 1:53pm magnesium gluconate 250 mg oral tablet (3 sources) Start: 02-16-2025 take 1 tablet by mouth once daily magnesium gluconate 250 mg oral tablet 1 tabs, ORAL, DAILY, # 30 tabs, Refill(s) 0, Date: 02/16/25 2:02:00 PM EDT Start Date: 02/16/25 Status: Ordered Quantity: 30.0 Unit: tabs Repeat number: 1 magnesium oxide 500 mg oral capsule (7 sources) Start: 03-02-2018 take 1 capsule by mouth once daily Magnesium Oxide 500 mg capsule Active 500 mg PO DAILY March 02, 2018 12:00am Complies with drug therapy meclizine hydrochloride 12.5 mg oral tablet (20 sources) Antiemetic Start: 10-03-2021 take 1 tablet by mouth three times daily meclizine (ANTIVERT) 25 mg tab Take 1 tablet by mouth three times daily. 30 tablet 0 10/03/2021 Active Start: 08-19-2020 End: 03-06-2025 take 1 tablet by mouth three times daily as needed Meclizine 12.5 mg tablet Active 12.5 mg PO THREE TIMES A DAY as needed for vertigo March 06, 2025 12:00am Complies with drug therapy Start: 06-07-2018 take 1 tablet by rocael th twice daily as needed Meclizine HCl - 12.5 MG Oral Tablet TAKE 1 TABLET Twice daily PRN Quantity: 0 Refills: 0 Ordered: 07-Jun-2018 DO Start : 07-Jun-2018 Active Start: 05-30-2018 End: 03-16-2020 Meclizine 12.5 mg tablet Discontinued 12.5 mg PO 2 to 3 times per day as needed for dizziness 60 3 May 30, 2018 1:00am March 16, 2020 3:56pm Comment on above: Take 1 tablet by rocael th three times daily. Multivitamin preparation (3 sources) Start: 02-17-20 take 1 tablet by mouth once daily multivitamin 1 tabs, ORAL, DAILY, # 100 tabs, Refill(s) 0, Date: 02/16/25 2:02:00 PM EDT Start Date: 02/16/25 Status: Ordered Quantity: 100.0 Unit: tabs Repeat number: 1 mupirocin 0.02 mg/mg topical ointment (2 sources) RNA Synthetase Inhibitor Antibacterial Start: 10-04-19 End: 10-09-19 mupirocin (BACTROBAN) 2 % ointment Apply to affected area three times daily for 5 days. 15 g 0 10/03/2021 10/08/2021 Active Comment on above: Apply to affected ar ea three times daily for 5 days. ondansetron 4 mg disintegrating oral tablet (1 source) Serotonin-3 Receptor Antagonist Start: 02-17-20 End: 02-20-20 ondansetron 4 mg oral tablet, disintegrating = Zofran 4 mg 1 tabs, ORAL, [id number], PRN, allow tablet to dissolve on tongue, 3 days, 9 tabs, Date: 02/16/25 3:46:00 PM EDT Start Date: 02/16/25 Stop Date: 02/19/25 Status: Ordered Quantity: 9.0 Unit: tabs Repeat number: 1 oxyCODONE hydrochloride 5 mg oral tablet (1 source) Opioid Agonist Start: 03-11-20 take 1 tablet by mouth every six hours as needed for pain Start: 03-11-2025 take 1 tablet by mouth every s ix hours as needed for pain phenazopyridine hydrochloride 100 mg oral tablet (1 source) Start: 03-11-2025 take 1 tablet by mouth three times daily Potassium (7 sources) Start: 03-02-2018 potassium Acti ve PO March 02, 2018 2:22pm Start: 03-02-2018 End: 03-06-2025 potassium Discontinued PO March 02, 2018 12:00am March 06, 2025 1:55pm Start: 03-02-2018 potassium Acti ve PO March 01, 2018 11:00pm Start: 03-02-2018 potassium Acti ve PO March 02, 2018 12:00am prodigy (7 sources) Start: 03-02-2018 prodigy Active March 02, 2018 2:19pm As directed Start: 03-02-2018 prodigy Active 1 March 02, 2018 12:00am Type 2 diabetes mellitus without complications As directed Start: 03-02-2018 prodigy Active March 01, 2018 11:00pm As directed Start: 03-02-2018 prodigy Active March 02, 2018 12:00am As directed rimegepant 75 mg disintegrating oral tablet (2 sources) Start: 11-27-2024 take 1 tablet by mouth once as needed for headache Rimegepant (Nurtec Odt) 75 mg tablet,disintegrating Active 75 mg PO ONCE as needed for migraine headache 7 November 28, 2024 12:00am as a single dose Complies with drug therapy tamsulosin hydrochloride 0.4 mg oral capsule (4 sources) alpha-Adrene rgic Jared Start: 02-16-2025 End: 03-18-2025 take 1 capsule by mouth once daily Tamsulosin 0.4 mg capsule Active 0.4 mg PO DAILY March 06, 2025 12:00am Complies with drug therapy Vitamin A (3 sources) Vitamin A Start: 02-16-2025 vitamin A 2,400 mcg, ORAL, DAILY, Date: 02/16/25 2:03:00 PM EDT Start Date: 02/16/25 Status: Ordered Repeat number: 1 Completed/Discontinued Medications Medication Drug Class(es) Dates Sig (Normalized) Sig (Original) acetaminophen 500 mg oral tablet (6 sources) Start: 02-11-2021 take 2 tablets by mouth every eight hours as needed acetaminophen (TYLENOL EXTRA STRENGTH) 500 mg tablet Take 2 tablets by mouth every 8 hours as needed for pain. 50 tablet 0 02/11/2021 Active Comment on above: Take [address] [facility] every 8 hours as needed for pain. [id number] 200 actuat albuterol 0.09 mg/actuat metered dose inhaler (20 sources) beta2-Adrenergic Agonist Start: 08-10-2022 End: 08-22-2024 Albuterol Sulfate (Ventolin Hfa) 90 mcg/actuation HFA aerosol inhaler Discontinued 2 NMA INHALATION Q4H as needed for sob 6.7 3 July 27, 2023 7:35pm August 22, 2024 6:07pm Start: 08-10-2022 End: 07-27-2023 take 1 puff(s) by inhalation every four hours Albuterol Sulfate (Ventolin Hfa) 90 mcg/actuation HFA aerosol inhaler Active 2 PUFF INHALATION Q4H 6.7 July 27, 2023 6:35pm Start: 07-30-2020 Albuterol Sulf ate HFA 108 (90 Base) MCG/ACT Inhalation Aerosol Solution Quantity: 18 Refills: 0 Ordered: 30-Jul-2020 DO Start : 30-Jul-2020 Active Start: 07-30-2020 End: 04-22-2021 Albuterol Sulfate (Ventolin Hfa) 90 mcg/actuation HFA aerosol inhaler Discontinued 2 NMA INHALATION Q4H as needed for bronchitis 6.7 30 July 30, 2020 1:00am April 22, 2021 9:26pm Shortness of breath Start: 07-30-2020 End: 04-22-2021 take 1 puff(s) by inhalation every four hours Albuterol Sulfate (Ventolin Hfa) 90 mcg/actuation HFA aerosol inhaler Discontinued 2 PUFF INHALATION Q4H 6.7 July 30, 2020 12:00am April 22, 2021 8:26pm amLODIPine 5 mg oral tablet (20 sources) Dihydropyridine Calcium Channel Jared Start: 06-21-2015 End: 08-22-2024 take 1 tablet by mouth once daily Amlodipine 5 mg tablet Discontinued 5 mg PO DAILY 90 September 24, 2023 10:25am August 22, 2024 6:08pm Comment on above: Take 5 mg by mouth o nce daily. amoxicillin 875 mg / clavulanate 125 mg oral tablet (20 sources) Penicillin-class Antibacterial Start: 02-12-2024 End: 11-27-2024 Amoxicillin-Pot Clavulanate 875-125 mg tablet Discontinued 1 {tbl} PO TWICE A DAY September 24, 2024 2:56pm November 27, 2024 4:05pm Start: 01-20-2021 End: 04-22-2021 Amoxicillin-Pot Clavulanate 875-125 mg tablet Discontinued 1 {tbl} PO TWICE A DAY January 20, 2021 12:00am April 22, 2021 9:26pm Start: 01-20-2021 End: 04-22-2021 take 1 tablet by mouth twice daily Amoxicillin-Pot Clavulanate Discontinued 1 TABLET PO TWICE A DAY January 19, 2021 11:00pm April 22, 2021 8:26pm Start: 06-16-2020 End: 07-30-2020 Amoxicillin-Pot Clavulanate 875-125 mg tablet Discontinued 1 {tbl} PO TWICE A DAY June 16, 2020 1:00am July 30, 2020 7:02pm Start: 06-16-2020 End: 07-30-2020 take 1 tablet by mouth twice daily Amoxicillin-Pot Clavulanate Discontinued 1 TABLET PO TWICE A DAY June 16, 2020 12:00am July 30, 2020 6:02pm azithromycin 250 mg oral tablet (14 sources) Macrolide Antimicrobial Start: 08-18-2020 End: 08-23-2020 take 2 tablets by mouth once daily, then take 1 tablet by mouth once daily at mealtime Azithromycin 250 mg tablet Discontinued 250 mg PO daily 6 5 0 August 18, 2020 12:00am August 22, 2020 12:00am August 23, 2020 12:02am 2 po qd for 1 day then 1 po qd for 4 days with food or after eating Start: 07-30-2020 End: 08-04-2020 take 2 tablets by mouth once daily, then take 1 tablet by mouth once daily at mealtime Azithromycin 250 mg tablet Discontinued 250 mg PO daily 6 5 0 July 30, 2020 1:00am August 03, 2020 1:00am August 04, 2020 1:02am 2 po qd for 1 day then 1 po qd for 4 days with food or after eating 12 hr buPROPion hydrochloride 100 mg extended release oral tablet (20 sources) Aminoketone Start: 03-02-2018 End: 08-22-2024 take 1 tablet by mouth twice daily Bupropion Hcl 100 mg tablet sustained-release 12 hr Discontinued 100 mg PO TWICE A DAY 180 3 September 24, 2023 10:26am August 22, 2024 6:08pm Start: 03-02-2017 buPROPion HCl ER (SR) 100 MG Oral Tablet Extended Release 12 Hour TAKE 1 TABLET BY MOUTH ONCE DAILY FOR 5 DAYS THEN INCREASE TO 1 TABLE Quantity: 30 Refills: 0 Ordered: 01-Apr-2017 DO Start : 02-Mar-2017 Active take 1 tablet by rocael th twice daily buPROPion (WELLBUTRIN) 100 mg tablet Take 100 mg by mouth twice daily. 0 Active Comment on above: Take 100 mg by mouth twice daily. CALCIUM ALGINATE (4 sources) Start: 08-29-2019 End: 03-16-2020 Calcium Alginate Discontinued 0 .ROUTE .MEDSUPPLY August 29, 2019 3:58pm March 16, 2020 3:54pm tear and place in the base of the wound Start: 08-29-2019 End: 03-16-2020 Calcium Alginate Discontinue d 0 .ROUTE .MEDSUPPLY 1 August 28, 2019 11:00pm March 16, 2020 2:54pm tear and place in the base of the wound Start: 08-29-2019 End: 03-16-2020 Calcium Alginate Discontinue d 0 .ROUTE .MEDSUPPLY 1 August 29, 2019 12:00am March 16, 2020 3:54pm tear and place in the base of the wound Calcium Alginate 4 X 4 bandage (3 sources) Start: 08-29-2019 End: 03-16-2020 Calcium Alginate 4 X 4 ban dage Discontinued 0 .ROUTE .MEDSUPPLY 1 August 29, 2019 12:00am March 16, 2020 3:54pm tear and place in the base of the wound Start: 08-29-2019 End: 03-16-2020 Calcium Alginate 4 X 4 ban dage Discontinued 0 .ROUTE .MEDSUPPLY August 29, 2019 12:00March 16, 2020 3:54pm tear and place in the base of the wound cefuroxime 500 mg oral tablet (20 sources) Cephalosporin Antibacterial Start: 08-18-2022 End: 09-06-2022 take 1 tablet by mouth twice daily Cefuroxime Axetil 500 mg tablet Discontinued 500 mg PO TWICE A DAY August 18, 2022 12:00am September 06, 2022 3:35pm Start: 04-14-2020 End: 04-24-2020 take 1 tablet by mouth every twelve hours Cefuroxime Axetil 500 mg tablet Discontinued 500 mg PO Q12H 20 April 14, 2020 4:08pm April 23, 2020 1:00am April 24, 2020 1:03am Start: 08-30-2018 End: 09-09-2018 take 1 tablet by mouth every twelve hours Cefuroxime Axetil 500 mg tablet Discontinued 500 mg PO Q12H 20 August 30, 2018 12:00am September 08, 2018 12:00am September 09, 2018 12:08am Start: 04-02-2018 End: 04-12-2018 take 1 tablet by mouth every twelve hours Cefuroxime Axetil 500 mg tablet Discontinued 500 mg PO Q12H 20 April 02, 2018 12:00am April 11, 2018 1:00am April 12, 2018 1:12am celecoxib 200 mg oral capsule (20 sources) Nonsteroidal Anti-inflammatory Drug Start: 07-27-2023 End: 08-22-2024 take 1 capsule by mouth twice daily Celecoxib 200 mg capsule Discontinued 200 mg PO TWICE A DAY 180 September 24, 2023 10:26am August 22, 2024 6:08pm Start: 06-28-2021 End: 07-27-2023 take 1 capsule by mouth once daily Celecoxib 200 mg capsule Discontinued 200 mg PO DAILY 30 November 24, 2022 3:44pm July 27, 2023 7:38pm Start: 12-24-2020 take 1 capsule by mo uth once daily Celecoxib 200 MG Oral Capsule TAKE 1 CAPSULE Daily Quantity: 30 Refills: 5 Ordered: 24-Dec-2020 Rosie Guerrero MD Start : 24-Dec-2020 Active Comment on above: Take 200 mg by mouth once daily. cholecalciferol 0.125 mg ora l capsule (6 sources) Vitamin D Start: 10-12-2017 Vitamin D3 125 MCG (5000 UT) Oral Capsule TAKE DIRECTED. Quantity: 0 Refills: 0 Ordered: 12-Oct-2017 DO Start : 12-Oct-2017 Active Start: 10-12-2017 Vitamin D3 500 0 UNIT Oral Capsule TAKE DIRECTED. Refills: 0 Start : 12-Oct-2017 Active cholecalciferol, vitamin D3, (VITAMIN D3 ORAL) (6 sources) take 1000 [IU] by mouth once daily cholecalciferol, vitamin D3, (VITAMIN D3 ORAL) Take 1,000 Units by mouth once daily. 0 Active Comment on above: Take 1,000 Units by mouth once daily. clarithromycin 500 mg oral tablet (12 sources) Macrolide Antimicrobial Start: 023 End: 023 take 1 tablet by mouth twice daily Clarithromycin 500 mg tablet Discontinued 500 mg PO TWICE A DAY September 06, 2022 12:00am November 24, 2022 3:40pm Start: 04-23-2018 End: 05-30-2018 take 1 tablet by mouth twice daily Clarithromycin 500 mg tablet Discontinued 500 mg PO TWICE A DAY April 23, 2018 1:00am May 30, 2018 5:02pm clobetasol propionate 0.5 mg/ml topical cream (2 sources) Corticosteroid Start: 07-22-2016 Clobetasol Propionate 0.05 % External Cream Quantity: 30 Refills: 0 Start : 22-Jul-2016 Active diclofenac sodium 0.01 mg/mg topical gel (4 sources) Nonsteroidal Anti-inflammatory Drug Start: 05-20-2019 Diclofenac Sodium 1 % GEL Quantity: 100 Refills: 0 Ordered: 20-May-2019 DO Start : 20-May-2019 Active doxycycline hyclate 100 mg oral capsule (5 sources) Tetracycline-class Drug Start: 10-23-2024 End: 11-27-2024 take 1 capsule by mouth twice daily Doxycycline Hyclate 100 mg capsule Discontinued 100 mg PO TWICE A DAY 20 0 October 23, 2024 12:00am November 27, 2024 4:05pm Start: 08-31-2023 End: 09-24-2023 take 1 capsule by mouth twice daily Doxycycline Hyclate 100 mg capsule Discontinued 100 mg PO TWICE A DAY 20 0 August 31, 2023 12:00am September 24, 2023 10:27am Dulaglutide (20 sources) GLP-1 Receptor Agonist Start: 08-18-2022 End: 11-24-2022 Dulaglutide 3 mg/0.5 mL pen injector Discontinued 3 mg SC EVERY WEEK 2 August 18, 2022 12:00am November 24, 2022 3:41pm Start: 08-18-2022 End: 11-24-2022 Dulaglutide 3 mg/0.5 mL pen injector Discontinued 3 mg SC EVERY WEEK 2 August 18, 2022 12:00am November 24, 2022 3:41pm Start: 08-18-2022 End: 11-24-2022 Dulaglutide Discontinued 3 M G SC EVERY WEEK 2 August 17, 2022 11:00pm November 24, 2022 2:41pm Start: 08-18-2022 Dulaglutide Ac tive 3 MG SC EVERY WEEK 2 August 18, 2022 12:00am Start: 12-17-2020 Trulicity 1.5 MG/0.5ML Subcutaneous Solution Pen-injector Quantity: 2 Refills: 0 Ordered: 17-Dec-2020 DO Start : 17-Dec-2020 Active Start: 11-10-2020 End: 03-17-2023 Dulaglutide (Trulicity) 1.5 mg/0.5 mL pen injector Discontinued 1.5 mg SC EVERY WEEK 2.5 December 23, 2021 5:04pm August 18, 2022 4:29pm dulaglutide (TRULICITY) 3 mg/0.5 mL pen injector (6 sources) Start: 03-06-2021 inject 3 mg by subcutaneous injection every week dulaglutide (TRULICITY) 3 mg/0.5 mL pen injector Inject 3 mg subcutaneously one time a week. 2 mL 3 03/06/2021 Active Comment on above: Inject 3 mg subcutan eously one time a week. empagliflozin 25 mg oral tablet (20 sources) Sodium-Glucose Cotransporter 2 Inhibitor Start: 08-14-2019 End: 06-22-2020 take 1 tablet by mouth once daily Empagliflozin (Jardiance) 25 mg tablet Discontinued 25 mg PO DAILY 90 June 16, 2020 9:15pm June 22, 2020 7:40pm 24 hr empagliflozin 25 mg / metFORMIN hydrochloride 1000 mg extended release oral tablet (20 sources) Biguanide, Sodium-Glucose Cotransporter 2 Inhibitor Start: 05-03-2021 End: 06-26-2022 Empagliflozin-Metf ormin (Synjardy Xr) 25-1,000 mg tablet, IR - ER, biphasic 24hr Discontinued 1 {tbl} PO DAILY 02 06May 25, 2022 6:37pm June 26, 2022 8:31pm Start: 03-06-2021 take 1 tablet by rocael th twice daily at mealtime empagliflozin-metFORMIN (SYNJARDY) 12.5-1,000 mg tab Take 1 tablet by mouth twice daily with meals. 0 03/06/2021 Active Start: 07-09-2020 take 25-1000 mg by m outh every twenty-four hours Synjardy XR 25-1000 MG Oral Tablet Extended Release 24 Hour Quantity: 30 Refills: 0 Ordered: 09-Jul-2020 DO Start : 09-Jul-2020 Active Start: 07-09-2020 End: 04-22-2021 Empagliflozin-Metformin (Syn jardy Xr) 25-1,000 mg tablet, IR - ER, biphasic 24hr Discontinued 1 {tbl} PO DAILY 30 July 09, 2020 1:00am April 22, 2021 9:27pm Comment on above: Take 1 tablet by rocael twice daily with meals. erythromycin 0.005 mg/mg ophthalmic ointment (7 sources) Macrolide, Macrolide Antimicrobial Start: 08-16-2018 End: 01-10-2019 Erythromycin 5 mg/gram (0.5 %) ointment Discontinued 1.25 cm OPHTHALMIC THREE TIMES A DAY 3.5 2 August 16, 2018 12:00am January 10, 2019 7:24pm Start: 08-16-2018 End: 01-10-2019 Erythromycin Discontinued 1. 25 CM OPHTHALMIC THREE TIMES A DAY 3.5 August 15, 2018 11:00pm January 10, 2019 6:24pm etodolac 400 mg oral tablet (1 source) Nonsteroidal Anti-inflammatory Drug Start: 06-13-2019 take 1 tablet by mouth twice daily as needed Etodolac 400 MG Oral Tablet TAKE 1 TABLET TWICE DAILY NEEDED. Quantity: 60 Refills: 5 Rosie Guerrero MD Start : 13-Jun-2019 Active Flucelvax Quad (PF) (flu vac qs 2017(4 yr up)CD(PF)) 60 mcg (15 mcg x (1 source) Start: 03-02-2018 End: 03-02-2018 inject 15 ug by intramuscular injection once Flucelvax Quad (PF) (flu vac qs 2017(4 yr up)CD(PF)) 60 mcg (15 mcg x Discontinued 0.5 ML IM ONCE 0.5 March 02, 2018 1:00pm March 02, 2018 2:39pm fluconazole 100 mg oral tablet (20 sources) Azole Antifungal Start: 12-03-2020 End: 04-22-2021 take 1 tablet by mouth once daily Fluconazole 100 mg tablet Discontinued 100 mg PO daily 14 December 03, 2020 6:58pm April 22, 2021 9:27pm Start: 11-21-2019 End: 06-16-2020 take 1 tablet by mouth once daily Fluconazole 100 mg tablet Discontinued 100 mg PO daily 14 April 21, 2020 9:34pm June 16, 2020 9:16pm Start: 09-12-2019 End: 03-16-2020 Fluconazole 150 mg tablet Discontinued 150 mg PO Every 3 Days 2 0 September 12, 2019 12:00am March 16, 2020 3:54pm fluorouracil 50 mg/ml topical cream (7 sources) Nucleoside Metabolic Inhibitor Start: 01-10-2019 End: 12-03-2020 Fluorouracil 5 % cream Discontinued 1 NMA TOPICAL TWICE A DAY 40 14 1 January 10, 2019 12:00am December 03, 2020 6:45pm apply sufficient amount to cover lesions fluticasone propionate 0.5 mg/ml topical cream (20 sources) Corticosteroid Start: 12-03-2020 Fluticasone Propionate 0.05 % External Cream Quantity: 60 Refills: 0 Ordered: 03-Dec-2020 DO Start : 03-Dec-2020 Active Start: 03-02-2018 End: 11-05-2020 Fluticasone Propionate (Cuti vate) 0.05 % cream Active 1 NMA TOPICAL 1 to 2 times per day as needed for allergic reaction 60 November 05, 2020 3:50pm Complies with drug therapy Start: 03-02-2018 End: 01-10-2019 Fluticasone Propionate 50 mc g/actuation spray,suspension Discontinued 2 NMA INTRANASAL DAILY March 02, 2018 12:00am January 10, 2019 7:24pm Start: 03-02-2018 End: 01-10-2019 Fluticasone Propionate Disco ntinued 2 SPRAY INTRANASAL DAILY March 01, 2018 11:00pm January 10, 2019 6:24pm Start: 11-13-2015 Fluticasone Pr opionate 0.05 % External Lotion Quantity: 120 Refills: 0 Start : 13-Nov-2015 Active gabapentin 400 mg oral capsule (20 sources) Anti-epileptic Agent Start: 02-07-2019 End: 07-22-2020 take 1 capsule by mouth once daily Gabapentin 400 mg capsule Discontinued 400 mg PO DAILY March 16, 2020 3:55pm July 22, 2020 1:27pm Start: 03-02-2018 End: 01-10-2019 take 1 capsule by mouth twice daily as needed Gabapentin 100 mg capsule Discontinued 100 mg PO TWICE A DAY as needed for neuropathy 60 April 02, 2018 4:17pm January 10, 2019 7:23pm Start: 10-12-2017 End: 08-22-2024 take 1 capsule by mouth three times daily Gabapentin 400 mg capsule Discontinued 400 mg PO THREE TIMES A DAY 270 90 3 September 24, 2023 10:28am August 22, 2024 6:08pm Comment on above: Take [address] [facility] three times daily for 30 days. Take by mouth. glimepiride 4 mg oral tablet (20 sources) Sulfonylurea Start: 10-13-19 End: 08-23-19 take 1 tablet by mouth once daily in the morning Glimepiride 4 mg tablet Discontinued 4 mg PO EVERY MORNING September 24, 2023 10:28am August 22, 2024 6:08pm Comment on above: Take 4 mg by mouth d aily with breakfast. imiquimod 50 mg/ml topical cream (5 sources) Start: 07-27-19 End: 03-06-20 Imiquimod 5 % cream in packet Discontinued 1 NMA TOPICAL 5 times per week 27 05November 27, 2024 4:09pm March 06, 2025 1:53pm indomethacin 50 mg oral capsule (1 source) Nonsteroidal Anti-inflammatory Drug Start: 06-25-19 take 1 capsule by mouth twice daily Indomethacin 50 MG Oral Capsule TAKE 1 CAPSULE TWICE DAILY. Quantity: 60 Refills: 5 Ordered: 25-Jun-2020 Rosie Guerrero MD Start : 25-Jun-2020 Active Insulin Nph And Regular Human (7 sources) Insulin Start: 08-20-19 End: 08-20-19 Insulin Nph And Regular Human Discontinued 15 UNIT SC TWICE A DAY 03 03August 19, 2020 11:33am August 19, 2020 11:50am Start: 08-19-2020 End: 08-19-2020 Insulin Nph And Regular Kerry n 100 unit/mL (70-30) insulin pen Discontinued 15 U SC TWICE A DAY 03 03 12August 19, 2020 12:00am August 19, 2020 11:50am Start: 08-19-2020 End: 08-19-2020 Insulin Nph And Regular Kerry n 100 unit/mL (70-30) insulin pen Discontinued 15 U SC TWICE A DAY 03 03August 19, 2020 12:00am August 19, 2020 11:50am Start: 08-19-2020 End: 08-19-2020 Insulin Nph And Regular Kerry n Discontinued 15 UNIT SC TWICE A DAY 03 03August 18, 2020 11:00pm August 19, 2020 10:50am Start: 08-19-2020 End: 08-19-2020 Insulin Nph And Regular Kerry n Discontinued 15 UNIT SC TWICE A DAY 03 03August 19, 2020 12:00am August 19, 2020 11:50am insulin lispro 25 unt/ml / insulin lispro protamine, human 75 unt/ml injectable suspension (20 sources) Insulin Analog Start: 11-18-2020 HumaLOG Mix 75 /25 (75-25) 100 UNIT/ML Subcutaneous Suspension Quantity: 10 Refills: 0 Ordered: 18-Nov-2020 DO Start : 18-Nov-2020 Active Start: 08-27-2020 End: 04-22-2021 Insulin Lispro Protamin-Lisp ro (Humalog Mix 75-25(U-100)Insuln) 100 unit/mL (75-25) suspension Discontinued 15 U SC TWICE A DAY December 03, 2020 6:45pm April 22, 2021 9:27pm 7 U in the AM and 10 U in the PM Start: 08-19-2020 End: 08-27-2020 Insulin Lispro Protamin-Lisp ro (Humalog Mix 75-25(U-100)Insuln) 100 unit/mL (75-25) suspension Discontinued 15 U SC TWICE A DAY 10 August 19, 2020 12:00am August 27, 2020 8:44pm levoFLOXacin 500 mg oral tablet (7 sources) Quinolone Antimicrobial Start: 08-29-2019 End: 09-16-2019 take 1 tablet by mouth once daily Levofloxacin 500 mg tablet Discontinued 500 mg PO DAILY August 29, 2019 12:00am September 16, 2019 5:37pm linagliptin 5 mg oral tablet (5 sources) Dipeptidyl Peptidase 4 Inhibitor Start: 06-26-2022 End: 07-03-2022 take 1 tablet by mouth once daily Linagliptin (Tradjenta) 5 mg tablet Discontinued 5 mg PO DAILY 02 06June 26, 2022 1:00am July 03, 2022 12:04pm Magnesium (10 sources) Start: 10-12-2017 take 1 tablet by mouth once daily Magnesium 250 MG Oral Tablet TAKE 1 TABLET DAILY. Quantity: 0 Refills: 0 Ordered: 12-Oct-2017 DO Start : 12-Oct-2017 Active Start: 10-12-2017 take 1 tablet by rocael th once daily Magnesium 250 MG Oral Tablet TAKE 1 TABLET DAILY. Refills: 0 Start : 12-Oct-2017 Active take 2 tablets by mo [facility] once daily Magnesium 250 mg tab Take 500 mg by mouth once daily. 0 Active Comment on above: Take 500 mg by mouth once daily. metFORMIN hydrochloride 850 mg oral tablet (20 sources) Biguanide Start: 3 End: 5 take 1 tablet by mouth twice daily Metformin 850 mg tablet Discontinued 850 mg PO TWICE A DAY 180 September 24, 2023 10:30am August 22, 2024 6:08pm Start: 03-02-2018 End: 12-03-2020 take 1 tablet by mouth twice daily Metformin 1,000 mg tablet Discontinued 1000 mg PO TWICE A DAY 180 June 16, 2020 9:17pm December 03, 2020 6:56pm Start: 10-12-2017 take 1 tablet by rocael once daily metFORMIN HCl - 1000 MG Oral Tablet TAKE 1 TABLET EVERY 12 HOURS DAILY. Quantity: 0 Refills: 0 Ordered: 12-Oct-2017 DO Start : 12-Oct-2017 Active metoprolol tartrate 37.5 mg oral tablet (20 sources) beta-Adrenergic Jared Start: 07-28-2019 take 1 tablet by mouth once daily metoprolol tartrate 37.5 mg tab Take 1 tablet by mouth once daily. 0 07/28/2019 Active Start: 06-27-2019 End: 08-22-2024 take 1 tablet by mouth twice daily Metoprolol Tartrate 37.5 mg tablet Discontinued 37.5 mg PO TWICE A DAY 180 September 24, 2023 10:31am August 22, 2024 6:08pm Comment on above: Take 1 tablet by rocael once daily. metroNIDAZOLE 250 mg oral tablet (20 sources) Nitroimidazole Antimicrobial Start: 03-08-20 End: 03-18-20 take 1 tablet by mouth three times daily Metronidazole 250 mg tablet Discontinued 250 mg PO THREE TIMES A DAY 30 10 0 March 08, 2021 12:00am March 17, 2021 12:00am March 18, 2021 12:01am Start: 07-02-2019 End: 03-16-2020 take 1 tablet by mouth three times daily Metronidazole 500 mg tablet Discontinued 500 mg PO THREE TIMES A DAY 48 0 August 29, 2019 12:00am March 16, 2020 3:56pm miconazole nitrate 20 mg/ml topical cream (7 sources) Azole Antifungal Start: 03-02-2018 End: 03-06-2025 Miconazole Nitrate 2 % cream Discontinued 1 NMA TOPICAL DAILY March 02, 2018 12:00am March 06, 2025 1:54pm mirtazapine 15 mg oral tablet (20 sources) Start: 03-02-2018 End: 08-22-2024 take 7.5 mg by mouth at bedtime as needed for sleep Mirtazapine 15 mg tablet Discontinued 7.5 mg PO AT BEDTIME as needed for sleep 90 90 3 September 24, 2023 10:31am August 22, 2024 6:08pm Start: 03-02-2018 End: 11-24-2022 take 7.5 mg by mouth at bedtime Mirtazapine Discontinu ed 7.5 MG PO AT BEDTIME March 08, 2020 7:30pm March 16, 2020 3:04pm Start: 03-02-2017 take 0.5 tablet by m outh once daily Mirtazapine 15 MG Oral Tablet TAKE 1/2 OF A TABLET BY MOUTH EVERY NIGHT Quantity: 15 Refills: 0 Ordered: 03-Mar-2017 DO Start : 02-Mar-2017 Active Multivitamin Men 50+ Oral Tablet (1 source) Start: 06-13-2019 take 1 tablet by mouth once daily Multivitamin Men 50+ Oral Tablet TAKE 1 TABLET DAILY. Refills: 0 Start : 13-Jun-2019 Active Multivitamin Men 50+ Oral Tablet (4 sources) Start: 06-13-2019 take 1 tablet by mouth once daily Multivitamin Men 50+ Oral Tablet TAKE 1 TABLET DAILY. Quantity: 0 Refills: 0 Ordered: 13-Jun-2019 DO Start : 13-Jun-2019 Active naloxone hydrochloride 40 mg/ml nasal spray (3 sources) Opioid Antagonist Start: 10-08-2020 Narcan 4 MG/0.1ML Nasal Liquid Quantity: 2 Refills: 0 Ordered: 08-Oct-2020 DO Start : 08-Oct-2020 Active oxaprozin 600 mg oral tablet (1 source) Nonsteroidal Anti-inflammatory Drug Start: 10-12-2017 take 1 tablet by mouth every twelve hours Oxaprozin 600 MG Oral Tablet Take 1 tablet every 12 hours Quantity: 180 Refills: 3 Rosie Guerrero MD Start : 12-Oct-2017 Active pioglitazone 45 mg oral tablet (20 sources) Peroxisome Proliferator Receptor alpha Agonist, Peroxisome Proliferator Receptor gamma Agonist, Thiazolidinedione Start: 08-18-2022 End: 08-22-2024 take 1 tablet by mouth once daily Pioglitazone 45 mg tablet Discontinued 45 mg PO DAILY 90 September 24, 2023 10:32am August 22, 2024 6:08pm Start: 07-03-2022 End: 08-18-2022 take 1 tablet by mouth once daily Pioglitazone 30 mg tablet Discontinued 30 mg PO DAILY 30 July 03, 2022 1:00am August 18, 2022 4:29pm Start: 06-22-2020 End: 08-27-2020 take 1 tablet by mouth once daily Pioglitazone 45 mg tablet Discontinued 45 mg PO DAILY 30 July 06, 2020 7:29pm August 27, 2020 8:43pm predniSONE 20 mg oral tablet (20 sources) Start: 10-23-2024 End: 03-06-2025 take 2 tablets by mouth once daily Prednisone 20 mg tablet Discontinued 40 mg PO DAILY 20 October 23, 2024 12:00am March 06, 2025 1:56pm Start: 08-31-2023 End: 09-24-2023 take 2 tablets by mouth once daily Prednisone 20 mg tablet Discontinued 40 mg PO DAILY 20 August 31, 2023 12:00am September 24, 2023 10:33am Start: 09-06-2022 End: 09-16-2022 take 2 tablets by mouth once daily Prednisone 20 mg tablet Discontinued 40 mg PO DAILY 20 10 September 06, 2022 3:37pm September 15, 2022 12:00am September 16, 2022 12:13am Start: 09-06-2022 End: 09-16-2022 take 40 mg by mouth once daily Prednisone Discontinued 40 MG PO DAILY 20 September 06, 2022 2:37pm September 15, 2022 11:13pm Start: 08-18-2020 End: 08-27-2020 take 1 tablet by mouth once daily Prednisone 20 mg tablet Discontinued 20 mg PO DAILY August 18, 2020 12:00am August 27, 2020 8:42pm Start: 07-30-2020 End: 08-09-2020 take 2 tablets by mouth once daily Prednisone 20 mg tablet Discontinued 40 mg PO DAILY 20 10 0 July 30, 2020 1:00am August 08, 2020 1:00am August 09, 2020 1:02am Start: 07-30-2020 End: 08-09-2020 take 40 mg by mouth once daily Prednisone Discontinued 40 MG PO DAILY 20 10 July 30, 2020 12:00am August 09, 2020 12:02am 1 mg dose 1.5 ml semaglutide 1.34 mg/ml pen injector (1 source) Start: 11-24-2022 End: 07-27-2023 Semaglutide Discontinued 1 MG SC EVERY WEEK November 23, 2022 11:00pm July 27, 2023 6:31pm Semaglutide 1 mg/dose (2 mg/1.5 mL) pen injector (3 sources) Start: 11-24-2022 End: 07-27-2023 Semaglutide 1 mg/dose (2 mg/1.5 mL) pen injector Discontinued 1 mg SC EVERY WEEK November 24, 2022 12:00am July 27, 2023 7:31pm sulfamethoxazole 800 mg / trimethoprim 160 mg oral tablet (14 sources) Dihydrofolate Reductase Inhibitor Antibacterial, Sulfonamide Antimicrobial Start: 07-28-2021 End: 11-07-2021 Sulfamethoxazole-Tri methoprim 800-160 mg tablet Discontinued 1 {tbl} PO TWICE A DAY July 28, 2021 1:00am November 07, 2021 6:24pm Start: 07-28-2021 End: 11-07-2021 take 1 tablet by mouth twice daily Sulfamethoxazole-Trimethoprim Discontinu ed 1 TABLET PO TWICE A DAY July 28, 2021 12:00am November 07, 2021 5:24pm Start: 06-27-2019 End: 07-04-2019 Sulfamethoxazole-Trimethopri m 800-160 mg tablet Discontinued 1 {tbl} PO TWICE A DAY 14 7 June 27, 2019 1:00am July 03, 2019 1:00am July 04, 2019 1:08am insect bite infected Start: 06-27-2019 End: 07-04-2019 take 1 tablet by mouth twice daily Sulfamethoxazole-Trimethoprim Discontinu ed 1 TABLET PO TWICE A DAY 14 7 June 27, 2019 12:00am July 04, 2019 12:08am SUMAtriptan 50 mg oral tablet (20 sources) Serotonin-1b and Serotonin-1d Receptor Agonist Start: 09-20-2020 End: 09-20-2020 take 1 tablet by mouth once Sumatriptan Succinate 100 mg tablet Discontinued 100 mg PO ONCE 10 September 20, 2020 12:00am September 20, 2020 6:39pm Start: 06-07-2018 take 1 tablet by rocael th every two hours SUMAtriptan Succinate 50 MG Oral Tablet take one tablet by mouth for migraine relief, may repeat every 2 hours, max 200mg per day, due for follow up appointment Quantity: 0 Refills: 0 Ordered: 07-Jun-2018 DO Start : 07-Jun-2018 Active Start: 05-30-2018 End: 08-22-2024 take 1 tablet by mouth once daily Sumatriptan Succinate 50 mg tablet Discontinued 0 PO .COMPLEX 20 90 3 September 24, 2023 10:33am August 22, 2024 6:08pm take 1 tab at onset of headache; if no relief may repeat 1 tab in 2hr; max = 4 tabs/day (24hr) PO tiZANidine 4 mg oral tablet (6 sources) Central alpha-2 Adrenergic Agonist Start: 02-11-2021 take 1 tablet by mouth every eight hours as needed tiZANidine (ZANAFLEX) 4 mg tablet Take 1 tablet by mouth every 8 hours as needed (pain or muscle spasm). 21 tablet 0 02/11/2021 Active Comment on above: Take 1 tablet by rocael th every 8 hours as needed (pain or muscle spasm). traMADol hydrochloride 50 mg oral tablet (20 sources) Opioid Agonist Start: 12-03-2020 End: 08-22-2024 take 1 tablet by mouth three times daily Tramadol 50 mg tablet Discontinued 50 mg PO THREE TIMES A DAY 90 5 August 17, 2023 6:52pm March 06, 2024 5:21pm neuropathic pain Start: 07-22-2020 End: 12-03-2020 take 1 tablet by mouth twice daily Tramadol 50 mg tablet Discontinued 50 mg PO TWICE A DAY July 22, 2020 1:26pm December 03, 2020 6:47pm neuropathic pain Start: 03-16-2020 End: 07-22-2020 take 1 tablet by mouth once daily Tramadol 50 mg tablet Discontinued 50 mg PO DAILY March 16, 2020 3:57pm July 22, 2020 1:27pm neuropathic pain Start: 03-02-2018 End: 03-16-2020 take 1 tablet by mouth twice daily Tramadol 50 mg tablet Discontinued 50 mg PO TWICE A DAY 60 5 March 11, 2019 6:43pm March 16, 2020 3:57pm neuropathic pain Start: 11-25-2012 take 1 tablet by rocael th every eight hours as needed for pain traMADol 50 mg tablet Indications: Diabetic neuropathy, painful (HCC) Take 1 tablet by mouth every 8 hours as needed for Pain. 90 tablet 1 11/25/2012 Active Comment on above: Take 1 tablet by rocael th every 8 hours as needed for Pain. triamcinolone acetonide 40 mg/ml injectable suspension (1 source) Corticosteroid Start: 2017 End: 2017 Kenalog (triamcinolone acetonide) 40 mg/mL suspension for injection Discontinued 20 MG INTRAARTIC ONCE 0.5 April 23, 2018 5:47pm April 23, 2018 9:44pm VITAMIN A ORAL (6 sources) VITAMIN A ORAL T ravinder by mouth. 0 Active Comment on above: Take by mouth. vitamin b12 1 mg/ml injectable solution (1 source) Vitamin B12 Start: 2021 End: 2021 inject 1000 ug by intramuscular injection once cyanocobalamin (vitamin B-12) 1,000 mcg/mL injection solution Discontinued 1000 MCG IM ONCE 1 November 07, 2021 6:19pm November 07, 2021 9:03pm warfarin sodium 5 mg oral tablet (17 sources) Vitamin K Antagonist Start: 2020 Warfarin Sodium 5 MG Oral Tablet Quantity: 30 Refills: 0 Ordered: 19-Aug-2020 DO Start : 19-Aug-2020 Active Start: 08-19-2020 End: 09-21-2020 take 1 tablet by mouth once daily Warfarin 5 mg tablet Discontinued 5 mg PO DAILY 30 3 September 03, 2020 3:18pm September 21, 2020 10:10am Zinc (7 sources) Start: 03-02-2018 End: 05-30-2018 [facility] 2:21[facility] May 30, 2018 5:03pm Start: 03-02-2018 End: 05-30-2018 zinc Discontinued PO 0 [facility] 2017 12:00am May 30, 2018 5:03pm Start: 03-02-2018 End: 05-30-2018 zinc Discontinued PO [facility] 11:00pm May 30, 2018 4:03pm Start: 03-02-2018 End: 05-30-2018 zinc Discontinued PO [facility] 2017 12:00am May 30, 2018 5:03pm Problems Active Problems Problem Classification Problem Date Documented Da te Episodic/Chronic Abdominal pain (1 source) Right flank pain; Translations: [Right flank pain] Onset: 03-15-2025 Episodic Calculus of urinary tract (7 sources) Kidney stone; Translations: [Calculus of kidney] Onset: 02-07-2025 02-16-2025 Episodic Cardiac dysrhythmias (4 sources) Atrial arrhythmia; Translations: [Atrial fibrillation] Onset: 03-17-2025 02-27-2025 Chronic Chronic obstructive pulmonary disease and bronchiectasis (9 sources) Bronchitis; Translations: [Bronchitis, not specified as acute or chronic] 07-30-2020 Episodic Complications of surgical procedures or medical care (7 sources) Non-healing surgical wound; Translations: [Other complications of procedures, not elsewhere classified, initial encounter] 03-29-2021 Episodic Conditions associated with dizziness or vertigo (11 sources) Dizziness; Translations: [Dizziness and giddiness] Onset: 04-30-2024 Episodic Congestive heart failure; nonhypertensive (4 sources) Heart failure with normal ejection fraction; Translations: [Heart failure, unspecified] Onset: 03-15-2025 02-27-2025 Chronic Diabetes mellitus with complications (20 sources) Neuropathy due to diabetes mellitus; Translations: [Type 2 diabetes mellitus with diabetic neuropathy, unspecified] Onset: 01-19-2011 03-06-2021 Chronic Diabetes mellitus without complication (15 sources) Diabetes mellitus; Translations: [Diabetes mellitus without mention of complication, type II or unspecified type, not stated as uncontrolled] Onset: 01-19-2009 05-30-2021 Chronic Diseases of white blood cells (4 sources) Leukocytosis; Translations: [Elevated white blood cell count, unspecified] 10-23-2024 Chronic Disorders of lipid metabolism (14 sources) Hyperlipidemia; Translations: [Hyperlipidemia, unspecified] Onset: 01-19-2011 03-06-2021 Chronic Diverticulosis and diverticulitis (14 sources) Diverticulitis; Translations: [Diverticulitis of colon (without mention of hemorrhage)] 08-11-2019 Chronic Essential hypertension (20 sources) Hypertensive disorder; Translations: [Essential (primary) hypertension] Onset: 04-28-2014 03-06-2021 Chronic Comment on above: continue medication Outside Source Comme nt: Comment on above: continue medication Fever of unknown origin (5 sources) Fever; Translations: [Fever, unspecified] 08-31-2023 Episodic Genitourinary symptoms and ill-defined conditions (9 sources) Increased frequency of urination; Translations: [Frequency of micturition] Onset: 02-07-2025 12-23-2021 Episodic Gout and other crystal arthropathies (15 sources) Gout; Translations: [Gout, unspecified] Onset: 02-11-2013 05-30-2021 Chronic Headache; including migraine (17 sources) Migraine; Translations: [Migraine, unspecified, not intractable, without status migrainosus] 09-21-2020 Chronic Malaise and fatigue (16 sources) Fatigue; Translations: [Other fatigue] 11-07-2021 Episodic Mood disorders (16 sources) Depressive disorder; Translations: [Depression] 03-02-2018 Chronic Osteoarthritis (16 sources) Degenerative joint disease involving multiple joints; Translations: [Osteoarthrosis, unspecified whether generalized or localized, other specified sites] 03-06-2021 Chronic Other aftercare (7 sources) Patient encounter status; Translations: [Long-term (current) use of non-steroidal anti-inflammatories (NSAID)] 08-02-2023 Episodic Other aftercare (2 sources) half-way (current) use of anticoagulants; Translations: [half-way (current) use of anticoagulants] Onset: 03-17-2025 Episodic Other and unspecified benign neoplasm (8 sources) Benign neoplasm of colon; Translations: [Benign neoplasm of colon, unspecified] 03-06-2021 Episodic Other circulatory disease (8 sources) Raynaud's disease; Translations: [Raynaud's syndrome] 02-19-2025 Chronic Comment on above: Added by Problem Lis t Migration; 2013-05-13; Outside Source Comme nt: Comment on above: Added by Problem List Migration; 2013-05-13; Other congenital anomalies (9 sources) 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; Translations: [Other specified congenital malformation syndromes, not elsewhere classified] 04-02-2018 Chronic Other gastrointestinal disorders (7 sources) Umbilical discharge; Translations: [Other specified symptoms and signs involving the digestive system and abdomen] 06-27-2019 Episodic Other infections; including parasitic (10 sources) 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; Translations: [Post-acute sequelae of COVID-19 (PASC)] 09-21-2020 Chronic Other infections; including parasitic (5 sources) Post-viral disorder; 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] 09-06-2022 Chronic Other injuries and conditions due to external causes (1 source) Unspecified injury of right elbow, initial encounter; Translations: [Injury of right elbow, initial encounter] Onset: 03-10-2025 Episodic Other lower respiratory disease (8 sources) Paralysis of diaphragm ; Translations: [Disorders of diaphragm] 03-06-2021 Episodic Other lower respiratory disease (9 sources) Hypoxia; Translations: [Hypoxemia] 09-21-2020 Episodic Other lower respiratory disease (7 sources) Dyspnea; Translations: [Dyspnea, unspecified] 09-06-2022 Episodic Other lower respiratory disease (5 sources) Wheezing; Translations: [Wheezing] 08-31-2023 Episodic Other lower respiratory disease (1 source) Shortness of breath Onset: 02-18-2025 Episodic Other lower respiratory disease (1 source) Hypoxemia; Translations: [Hypoxia] Onset: 03-15-2025 Episodic Other lower respiratory disease (2 sources) Other abnormalities of breathing; Translations: [Other abnormalities of breathing] Onset: 03-17-2025 Episodic Other lower respiratory disease (2 sources) Disorders of diaphragm; Translations: [Disorders of diaphragm] Onset: 03-17-2025 Episodic Other nervous system disorders (7 sources) Neuropathy; Translations: [Polyneuropathy, unspecified] 03-11-2019 Chronic Other nervous system disorders (9 sources) Unsteady when walking; Translations: [Unsteadiness on feet] 08-20-2020 Episodic Other non-epithelial cancer of skin (9 sources) Basal cell carcinoma of skin in situ; Translations: [Carcinoma in situ of skin, unspecified] 01-10-2019 Episodic Other non-traumatic joint disorders (13 sources) Pain in unspecified knee; Translations: [Recurrent knee pain] 03-02-2018 Episodic Other non-traumatic joint disorders (1 source) Pain in right knee; Translations: [Right knee pain] 03-11-2019 Episodic Other nutritional; endocrine; and metabolic disorders (10 sources) Body mass index 40+ - severely obese; Translations: [Morbid (severe) obesity due to excess calories] Onset: 08-09-2020 08-13-2020 Chronic Other nutritional; endocrine; and metabolic disorders (10 sources) Morbid obesity; Translations: [Morbid (severe) obesity due to excess calories] 03-06-2021 Chronic Other nutritional; endocrine; and metabolic disorders (6 sources) Severe obesity; Translations: [Morbid obesity] 02-19-2025 Chronic Other nutritional; endocrine; and metabolic disorders (1 source) Hypomagnesemia; Translations: [Hypomagnesemia] Onset: 03-10-2025 Chronic Other nutritional; endocrine; and metabolic disorders (2 sources) Morbid (severe) obesity due to excess calories; Translations: [Morbid (severe) obesity due to excess calories] Onset: 03-17-2025 Chronic Other nutritional; endocrine; and metabolic disorders (2 sources) Body mass index (BMI) 45.0-49.9, adult; Translations: [Body mass index [BMI] 45.0-49.9, adult] Onset: 03-17-2025 Chronic Other nutritional; endocrine; and metabolic disorders (5 sources) Weight decreased; Translations: [Abnormal weight loss] 08-22-2024 Episodic Other screening for suspected conditions (not mental disorders or infectious disease) (9 sources) Decreased testosterone level ; Translations: [Other specified abnormal findings of blood chemistry] 11-07-2021 Episodic Other skin disorders (3 sources) Folliculitis; Translations: [Follicular disorder, unspecified] Episodic Other skin disorders (7 sources) Sebaceous cyst of skin; Translations: [Sebaceous cyst] 07-28-2021 Episodic Other skin disorders (10 sources) Pain; Translations: [Disorder of the skin and subcutaneous tissue, unspecified] 07-28-2021 Episodic Other upper respiratory infections (9 sources) Maxillary sinusitis; Translations: [Chronic maxillary sinusitis] 08-30-2018 Chronic Other upper respiratory infections (14 sources) Acute maxillary sinusitis; Translations: [Acute maxillary sinusitis, unspecified] 06-16-2020 Episodic Otitis media and related conditions (20 sources) Acute left otitis media; Translations: [Otitis media, unspecified, left ear] 04-02-2018 Episodic Pneumonia (except that caused by tuberculosis or sexually transmitted disease) (7 sources) Pneumonia; Translations: [Pneumonia, unspecified organism] 08-19-2020 Episodic Pneumonia (except that caused by tuberculosis or sexually transmitted disease) (2 sources) Pneumonia (except that caused by tuberculosis or sexually transmitted disease) Onset: 08-09-2020 02-19-2025 Poisoning by nonmedicinal substances (7 sources) Toxic effect of venom of black spider, accidental (unintentional), initial encounter; Translations: [Black spider bite] 03-29-2021 Episodic Residual codes; unclassified (8 sources) Obstructive sleep apnea syndrome; Translations: [Obstructive sleep apnea (adult) (pediatric)] Onset: 11-15-2020 03-06-2021 Chronic Residual codes; unclassified (2 sources) Obstructive sleep apnea (adult) (pediatric); Translations: [Obstructive sleep apnea (adult) (pediatric)] Onset: 03-17-2025 Chronic Residual codes; unclassified (16 sources) Insomnia; Translations: [Insomnia, unspecified] 01-10-2019 Episodic Rheumatoid arthritis and related disease (8 sources) Rheumatoid arthritis - hand joint; Translations: [Rheumatoid arthritis, unspecified] 03-06-2021 Chronic Spondylosis; intervertebral disc disorders; other back problems (14 sources) Disorder of joint of spine; Translations: [Other spondylosis with radiculopathy, lumbar region] Onset: 07-23-2015 03-06-2021 Chronic Spondylosis; intervertebral disc disorders; other back problems (20 sources) Lumbosacral radiculopathy; Translations: [Thoracic or lumbosacral neuritis or radiculitis, unspecified] Onset: 07-23-2015 10-08-2015 Episodic Sprains and strains (20 sources) Sprain of ankle; Translations: [Sprain of foot] Onset: 02-04-2019 Resolved: 10-05-2016 03-16-2022 Episodic Syncope (1 source) Syncope and collapse; Translations: [Syncope, unspecified syncope type] Onset: 03-10-2025 Episodic Thyroid disorders (5 sources) Hypothyroidism; Translations: [Hypothyroidism, unspecified] Onset: 10-30-2024 10-23-2024 Chronic Unclassified (4 sources) Patient encounter status; Translations: [NSAID long-term use] 02-19-2025 Unclassified (2 sources) Bite of venomous spider 02-19-2025 Unclassified (2 sources) Contusion of head Onset: 02-04-2019 02-19-2025 Unclassified (2 sources) Injury of shoulder and/or upper arm Onset: 02-04-2019 02-19-2025 Unclassified (2 sources) Non-healing surgical wound 02-19-2025 Unclassified (2 sources) Pain of knee region 02-19-2025 Unclassified (2 sources) Post-acute COVID-19 02-19-2025 Unclassified (2 sources) Sebaceous cyst of skin 02-19-2025 Unclassified (1 source) Acute bilateral low back pain without sciatica; Translations: [Acute bilateral low back pain without sciatica] Onset: 03-10-2025 Viral infection (20 sources) Disease caused by 2018-nCoV; Translations: [COVID-19] Onset: 08-09-2020 08-09-2020 Episodic Viral infection (2 sources) Disease caused by 2018-nCoV Onset: 08-09-2020 02-19-2025 Past or Other Problems Problem Classification Problem Date Documented Da te Episodic/Chronic Acute and unspecified renal failure (8 sources) Acute injury of kidney; Translations: [Acute kidney failure, unspecified] Onset: 03-02-2021 03-02-2021 Episodic Fracture of lower limb (10 sources) Closed fracture of fifth metatarsal bone; Translations: [Unspecified physeal fracture of right metatarsal, initial encounter for closed fracture] Onset: 08-11-2019 08-11-2019 Episodic Other injuries and conditions due to external causes (6 sources) Injury of ankle; Translations: [Knee, leg, ankle, and foot injury] Resolved: 10-05-2016 Episodic Other injuries and conditions due to external causes (6 sources) Injury of foot; Translations: [Knee, leg, ankle, and foot injury] Resolved: 10-05-2016 Episodic Other lower respiratory disease (6 sources) H/O: respiratory disease; Translations: [Personal history of other diseases of respiratory system] Resolved: 06-17-2017 Episodic Other nutritional; endocrine; and metabolic disorders (6 sources) Body mass index 30+ - obesity; Translations: [BMI over 35] Resolved: 12-13-2018 Chronic Other nutritional; endocrine; and metabolic disorders (6 sources) H/O: raised blood lipids; Translations: [Personal history of other endocrine, metabolic, and immunity disorders] Resolved: 09-27-2013 Episodic Respiratory failure; insufficiency; arrest (adult) (8 sources) Acute respiratory failure; Translations: [Acute respiratory failure with hypoxia] Onset: 08-09-2020 08-13-2020 Episodic Skin and subcutaneous tissue infections (18 sources) Cellulitis and abscess of buttock; Translations: [Cutaneous abscess of buttock] Onset: 03-02-2021 03-02-2021 Episodic Superficial injury; contusion (1 source) Contusion of head; Translations: [Contusion of unspecified part of head, initial encounter] Onset: 02-04-2019 03-16-2022 Episodic NEGATED: Highlighted row has not occurred!Residual codes; unclassified (10 sources) Disease Episodic Results Test Name Value Interpretation Reference Range Facility Bedside Glucoseon 03-17-2025 FINGERSTICK GLU 240 mg/dL High [address] [place] [address] Comment on above: Result Comment: KAE GEMENT OF PATIENT CARE PER NURSING PROTOCOL Performed By: #### L 501.080 #### [facility] [address] [facility] [address] FINGERSTICK GLU 150 mg/dL High [address] [place] [address] Comment on above: Result Comment: KAE GEMENT OF PATIENT CARE PER NURSING PROTOCOL Performed By: #### L 501.080 #### [facility] [address] [facility] [address] FINGERSTICK GLU 218 mg/dL High [address] [place] [address] Comment on above: Result Comment: KAE GEMENT OF PATIENT CARE PER NURSING PROTOCOL Performed By: #### L 501.080 #### [facility] [address] [facility] [address] FINGERSTICK GLU 147 mg/dL High [address] [place] [address] Comment on above: Result Comment: KAE GEMENT OF PATIENT CARE PER NURSING PROTOCOL Performed By: #### L 100.0100, L501.9520 #### [facility] [address] [place], [address] Discharge Instructionon 03-04 Discharge Instruction [facility] Medical Records Department [address] [address] Instructions for Home/Discharge Instructions 03/17/25 1309 MR#: [id number] Acct: [id number] Name: JAME WALLACE Rep #: [id number] : 1965 59 From: Herbert Mane DO PCP: DAVID Marina Status:ADM IN Discharge Instructions DC O2, CPAP, BIPAP needs Home O2 Discharge instructions: No Dressing / Incision Discharge Activity: Return to Normal Activity Weight Bearing Status: Full weight bearing Follow Up Care Test Results: Test results from this visit will be discussed in further detail at your follow-up appointment, if applicable. Discharge Plan Admission Admit Date/Time: 03/16/25 05:37 Primary Reason for Your Visit: Diastolic congestive heart failure, mild pulmonary hypertension Attending Provider: Herbert Mane Primary Care Provider: Jenny Live NP Consulting Providers: Kindra Bach; Lisa Gruber; Tray Herring; Mana Corcoran; Kassidy Serrano; Artie Marquez; Leonard Ford; Juvenal Cedillo; Jame Zuluaga; Brooke Slater; Bony Manuel; Yesy Locke; Anselmo Fontaine; Richard De La Torre; Elbert Shaffer; Macario Rodriguez BUSINESS SERVICES COORDINATOR; Janette Washington; Ernst Parker; Jame Bashir Discharge Orders/Prescriptions Prescriptions: New spironolactone 25 mg Tablet 25 mg PO DAILY Qty: 30 0RF Continued magnesium oxide 500 mg capsule [...] Patient Comments: LAST DOSE TO BE 03/07/25 cephalexin 500 mg capsule 500 mg PO Q6H Qty: 28 0RF phenazopyridine [Pyridium] 100 mg tablet 100 mg PO TID Qty: 20 0RF oxycodone 5 mg tablet 5 mg PO Q6H PRN (Reason: pain) 7 Days Qty: 20 0RF levothyroxine [Euthyrox] 75 mcg tablet 75 mcg PO QDAY Qty: 90 3RF Referrals / Follow Up: Jenny Live NP, BUSINESS SERVICES COORDINATOR-C [Primary Care Provider, [facility]] - Within 2 Weeks Janette [place], PA [Med Staff - [facility] Prof, Cardiology] - See Referral Note Referral Note: in 3 weeks Disposition Disposition (needs filled in before D/C Order can be placed): Home, Self Care 03/17/25 1321 Herbert Mane DO CC: BUSINESS SERVICES COORDINATOR-C Jenny Live; BUSINESS SERVICES COORDINATOR-C Macario Rodriguez; Dr. Tray Herring MD; Dr. Lisa Gruber MD; Dr. Kindra Bach MD; Dr. Kassidy Serrano MD; Dr. Mana Corcoran MD; Dr. Artie Marquez MD; Dr. Leonard Ford MD; Dr. Juvenal Cedillo MD; Dr. Jame Zuluaga DO; Dr. Jame Bashir DO; Dr. Brooke Slater MD; Dr. Bony Manuel MD; Dr. Yesy Locke MD; Dr. Elbert Shaffer MD; Dr. Anselmo Fontaine MD; Dr. Richard De La Torre MD; NICOLLE Dodge; NICOLLE Lackey Signed Normal [facility] 12 Lead EKGon 03-16-2025 12 Lead EKG [facility] Cardiovascular Services [address] [place] [address] 12 Lead EKG 03/16/25 0701 MR#: [id number] Acct: [id number] Name: JAME WALLACE Rep #: [id number] : 1965 59 From: Juvenal Cedillo MD Attending Dr: Dr. Herbert Mane DO Status: A DM IN Ordering Dr: Jame Bashir DO Date: 03/16/25 Location: [facility] Sex: M C Admitted: 03/16/25 Test Reason : CHF Blood Pressure : */* mmHG Vent. Rate : 66 BPM Atrial Rate : 66 BPM P-R Int : 136 ms QRS Dur : 144 ms QT Int : 444 ms P-R-T Axes : 9 -19 0 degrees QTcB Int : 465 ms Normal sinus rhythm Right bundle branch block Abnormal ECG No previous ECGs available Confirmed by JUVENAL CEDILLO MD ([id number]), graphics editor VAISHALI BERRY ([id number]) on 03/17/2025 7:57:19 AM Referred By: BASHIR Confirmed By: JUVENAL CEDILLO MD 03/17/25 0757 Date Juvenal Cedillo MD CC: BUSINESS SERVICES COORDINATOR-C Jenny Live; Dr. Jame Bashir DO; Dr. Herbert Mane DO Signed Normal [facility] HEALTHon 03-16-2025 ALLIED HEALTH HNO ID: [id number] Author: MONALISA WILLIAMSON RT(Zeinab) Service: Radiology Author Type: Technologist Type: Allied Health Filed: 03/16/2025 02:49 Note Text: Radiology Service Progress Note PATIENT NAME: Jame Wallace DATE OF SERVICE: March 16, 2025 TIME: 2:49 AM PATIENT IDENTITY VERIFICATION COMPLETED USING TWO (2) [...] PATIENT PRESENTS WITH AN IMPLANTABLE OR ATTACHED AIR INTELLIGENCE OFFICER: No RADIOLOGY DEPARTMENT: General X-ray: Exam(s) Completed: Chest X-Ray PERIPHERAL IV DATA: Not applicable SIGNED BY: Monalisa Williamson RT(R) March 16, 2025 2:49 AM Normal [facility] Bedside Glucoseon 03-16-2025 FINGERSTICK GLU 118 mg/dL High 74-106 [facility] Comment on above: Result Comment: KAE GEMENT OF PATIENT CARE PER NURSING PROTOCOL Performed By: #### L 501.080 #### [facility] [address] [place], [address] FINGERSTICK GLU 183 mg/dL High 74-106 [facility] Comment on above: Result Comment: KAE GEMENT OF PATIENT CARE PER NURSING PROTOCOL Performed By: #### L 100.0100, L501.9520 #### [facility] [address] [place], [address] CBC W/Diff, Automatedon 03-04 Absolute Lymph 1.93 X10 3/uL Normal 0.83-4.51 [facility] Comment on above: Performed By: #### L 501.4021 #### [facility] [address] [place], [address] Absolute Neut 4.4 X10 3/uL Normal 2.0-7.7 [facility] Comment on above: Performed By: #### L 501.4021 #### [facility] [address] [place], [address] Basophils/100 WBC (Bld) 0.4 % Normal 0-1 [facility] Comment on above: Performed By: #### L 501.4021 #### [facility] [address] [place], [address] Eosinophils/100 WBC (Bld) 4.3 % Normal 0-5 [facility] Comment on above: Performed By: #### L 501.4021 #### [facility] [address] [place], [address] Erythrocyte distribution width (RBC) [Ratio] 13.2 % Normal 11.6-14.6 [facility] Comment on above: Performed By: #### L 501.4021 #### [facility] [address] [place], [address] Hematocrit (Bld) [Volume fraction] 38.9 % Low 40-54 [facility] Comment on above: Performed By: #### L 501.4021 #### [facility] [address] [place], [address] Hemoglobin (Bld) [Mass/Vol] 12.7 g/dL Low 13.0-16.5 [facility] Comment on above: Performed By: #### L 501.4021 #### [facility] [address] [place], [address] IG% 0.400 Normal 0.0-0.9 [facility] Comment on above: Result Comment: IG% - Immature Granulocytes (promyelocytes, myelocytes and metamyelocytes) > 1% indicates that a LEFT SHIFT is Present. Performed By: #### L 501.4021 #### [facility] [address] [place], [address] Lymphocytes/100 WBC (Bld) 24.9 % Normal 19-41 [facility] Comment on above: Performed By: #### L 501.4021 #### [facility] [address] [place], [address] MCH (RBC) [Entitic mass] 30.8 pg Normal 27.0-32.0 [facility] Comment on above: Performed By: #### L 501.4021 #### [facility] [address] [place], [address] MCHC (RBC) [Mass/Vol] 32.6 g/dL Normal 32-36 [facility] Comment on above: Performed By: #### L [id number] #### [facility] [address] [place], [address] MCV (RBC) [Entitic vol] 94.2 fL High 80-94 [facility] Comment on above: Performed By: #### L [id number] #### [facility] [address] [place], [address] Monocytes/100 WBC (Bld) 13.3 % High 0-10 [facility] Comment on above: Performed By: #### L [id number] #### [facility] [address] [place], [address] Neutrophils/100 WBC (Bld) 56.7 % Normal 47-70 [facility] Comment on above: Performed By: #### L 501.4021 #### [facility] [address] [place], [address] Nucleated RBC (Bld) [#/Vol] 0 10*3/uL Normal 0-5 [facility] Comment on above: Performed By: #### L 501.4021 #### [facility] [address] [place], [address] Platelet mean volume (Bld) [Entitic vol] 11.8 fL Normal 6.2-12.0 [facility] Comment on above: Performed By: #### L 501.4021 #### [facility] [address] [place], [address] Platelets (Bld) [#/Vol] 204 10*3/uL Normal 150-450 [facility] Comment on above: Performed By: #### L [id number] #### [facility] [address] [place], [address] RBC (Bld) [#/Vol] 4.13 10*6/uL Low 4.6-6.2 [facility] Comment on above: Performed By: #### L [id number] #### [facility] [address] [place], [address] RDW SD 45.9 fl High 35.1-43.9 [facility] Comment on above: Performed By: #### L [id number] #### [facility] [address] [place], [address] WBC (Bld) [#/Vol] 7.7 10*3/uL Normal 4.4-11.[address] [facility] Comment on above: Performed By: #### L 501.4021 #### [facility] [address] [place], [address] Chest 1 View (Portable)on Chest 1 View (Portable) [facility] Imaging Services [address] [place], [place] [address] Chest 1 View (Portable) MR#: [id number] Acct: [id number] Name: JAME WALLACE Rep #: [id number] : 1965 M 59 From: Herb Reeves MD PCP: Jenny Live, MANDO-C Status: ADM IN Study: Chest 1 View (Portable) Date of Exam: 03/16/25 Exam# [id number] Ordering Dr: Jame Bashir DO PROCEDURE: CHEST 1 VIEW (PORTABLE) 03/16/2025 REASON FOR EXAM: AE CHF TECHNIQUE: Frontal view of the chest. COMPARISON: None FINDINGS: There is elevation of the right hemidiaphragm which can indicate paralysis. There is cardiomegaly with mild central vascular congestion. There is no focal infiltrate or consolidation. There is no pneumothorax or effusion. There is no acute bony abnormality. Atherosclerotic calcifications are visible. RAD/Chest 1 View (Portable) IMPRESSION: There is elevation of the right hemidiaphragm which can indicate paralysis. There is cardiomegaly with mild central vascular congestion. Reading Location: [facility] CC: BUSINESS SERVICES COORDINATOR-C Jenny Live; Dr. Jame Bashir DO Virtualization Architect: Signed Normal [facility] Comprehensive Metabolic Prof ilon 03-16-2025 Albumin [Mass/Vol] 3.5 g/dL Normal 3.5-5.[address] [facility] Comment on above: Performed By: #### L 501.4021 #### [facility] [address] [place], [address] Albumin/Globulin [Mass ratio] 1.2 {ratio} Normal 0.9-2.4 [facility] Comment on above: Performed By: #### L 501.4021 #### [facility] [address] [place], [address] ALK PHOS 82 U/L Normal 40-129 [facility] Comment on above: Performed By: #### L 501.4021 #### [facility] [address] [place], [address] ALT [Catalytic activity/Vol] 9 U/L Normal <=46 [facility] Comment on above: Performed By: #### L 501.4021 #### [facility] [address] [place], [address] AST [Catalytic activity/Vol] 15 U/L Normal <=37 [facility] Comment on above: Performed By: #### L 501.4021 #### [facility] [address] [place], [address] Bilirubin [Mass/Vol] 0.35 mg/dL Normal 0.00-1.30 [facility] Comment on above: Performed By: #### L 501.4021 #### [facility] [address] [place], [address] BUN/CRE 18.0 RATIO Normal 10-20 [facility] Comment on above: Performed By: #### L 501.4021 #### [facility] [address] [place], [address] Calcium [Mass/Vol] 9.1 mg/dL Normal 7.6-11.[address] [facility] Comment on above: Performed By: #### L 501.4021 #### [facility] [address] [place], [address] Chloride [Moles/Vol] 99 mmol/L Normal 98-108 [facility] Comment on above: Performed By: #### L 501.4021 #### [facility] [address] [place], [address] CO2 [Moles/Vol] 29.4 mmol/L Normal 21.0-32.0 [facility] Comment on above: Performed By: #### L 501.4021 #### [facility] [address] [place], [address] Creatinine [Mass/Vol] 1.63 mg/dL High 0.70-1.20 [facility] Comment on above: Performed By: #### L 501.4021 #### [facility] [address] [place], [address] ECRCL 80.46 ml/min Normal 50-250 [facility] Comment on above: Performed By: #### L 501.4021 #### [facility] [address] [place], [address] GAP 12 Normal 5-15 [facility] Comment on above: Performed By: #### L 501.4021 #### [facility] [address] [place], [address] GFR/1.73 sq M.predicted among non-blacks MDRD (S/P/Bld) [Vol rate/Area] 49 mL/min/{1.73_m2} Low >60 [facility] Comment on above: Result Comment: mL/m in/1.73m2 CKD-EPI Creatinine Equation (2020) Performed By: #### L 501.4021 #### [facility] [address] [place], [address] Globulin (S) [Mass/Vol] 2.9 g/dL Normal 2.2-4.2 [facility] Comment on above: Performed By: #### L 501.4021 #### [facility] [address] [place], [address] Glucose [Mass/Vol] 161 mg/dL High 70-[address] [facility] Comment on above: Performed By: #### L 501.4021 #### [facility] [address] [place], [address] Potassium [Moles/Vol] 4.4 mmol/L Normal 3.3-5.1 [facility] Comment on above: Performed By: #### L 501.4021 #### [facility] [address] [place], [address] Sodium [Moles/Vol] 140 mmol/L Normal 133-[address] [facility] Comment on above: Performed By: #### L 501.4021 #### [facility] [address] [place], [address] T PROT 6.5 g/dL Normal 5.9-8.4 [facility] Comment on above: Performed By: #### L 501.4021 #### [facility] [address] [place], [address] Urea nitrogen [Mass/Vol] 29 mg/dL High 4-19 [facility] Comment on above: Performed By: #### L 501.4021 #### [facility] [address] [place], [address] Consultation - Cardiologyon 03-16-2025 Consultation - Cardiology [facility] Medical Records Department [address] [place] [address] Consultation - Cardiology 03/16/25 0724 MR#: [id number] Acct: [id number] Name: JAME WALLACE Rep #: [id number] : 1965 59 From: Juvenal Cedillo MD PCP: DAVID Marina Status:ADM IN Location: [place] [id number] Assessment Plan Assessment/Plan (1) CHF exacerbation: QUALIFIERS: Heart failure type: unspecified Qualified Code(s): I50.9 - Heart failure, unspecified PLAN: He appears to have had a clinical exacerbation of his congestive heart failure however this appears to be mild. He is currently on no supplemental oxygen and is lying flat in bed. * Will recommend we obtain an echocardiogram to reassess his ventricular function * Continue IV diuretics for today * Optimize beta-jared dose * Consider SGLT2 inhibitor (2) Atrial fibrillation: QUALIFIERS: Atrial fibrillation type: unspecified Qualified Code(s): I48.91 - Unspecified atrial fibrillation PLAN: He is in sinus rhythm at this particular time. It is not clear to me whether or how long he was in atrial fibrillation however he appears to have an elevated [id number] score and therefore we will continue him on the Eliquis for now. Echocardiogram performed to assess his atrial sizes (3) Hypertension: QUALIFIERS: Hypertension type: primary hypertension Qualified Code(s): I10 - Essential (primary) hypertension PLAN: His blood pressure appears to be under good control at this time I would not recommend that we make any changes. HPI Consult Data Date of Consult: 03/16/25 HPI Narrative HPI Narrative: JAME WALLACE, is a 59 M who presents as a transfer from [facility]. The patient was apparently on admission here recently and underwent lithotripsy and stent placement for kidney stones. He has a history of hypertension recently diagnosed congestive heart failure hyperlipidemia hypothyroidism, morbid obesity. He also has a history of diabetes with diabetic neuropathy. He presented to the outside hospital with the above symptomatology and requested to be transferred over here. He says that his symptoms had worsened he went to the emergency room in [facility] but his insurance was not covered for that admission and so he requested being here. He does remember that they said that he had been diagnosed with atrial fibrillation and was started on apixaban. He does have evidence of mild lower extremity edema. He denied any fever or chills or palpitations. At this particular time he appears to be stable when I saw him. Cardiology was asked to see him because he has an elevated natruretic peptide level, however he is lying flat on no supplemental oxygen. His physical exam is unremarkable other than mild pedal edema and his electrocardiogram demonstrates sinus rhythm with a right bundle branch block and a rate of 58 bpm. [facility] Medical History Diabetes Chronic pain Kidney stones Atrial fibrillation Congestive heart failure (CHF) Wears glasses Vertigo History of MRSA infection [...] due to secondary diabetes mellitus Home Medications ???Medication ???Instructions ???Recorded ???Last Taken ???Type aspirin 81 mg tablet,delayed 81 mg PO DAILY 03/02/18 Unknown Hi story release (Adult Low Dose Aspirin) magnesium oxide 500 mg capsule 500 mg PO DAILY 03/02/18 03/10/25 History prodigy #1 ea 03/02/18 Unknown History fluticasone propionate 0.05 % 1 applic topical QD-BID PRN Unknown Rx topical cream (Cutivate) allergic reaction #60 grams albuterol sulfate 90 mcg/actuation 2 puff inhalation Q4H PRN sob #6 .7 08/22/24 Unknown Rx aerosol inhaler (Ventolin HFA) grams amlodipine 5 mg tablet 5 mg PO DAILY #90 tabs 08/22/24 Rx bupropion HCl 100 mg tablet,12 hr 100 mg PO BID #180 tabs 08/22/24 03/10/25 Rx sustained-release celecoxib 200 mg capsule 200 mg PO BID #180 caps 08/22/24 0 02/19/25 Rx gabapentin 400 mg capsule 400 mg PO TID 90 days #270 caps 03/10/25 Rx glimepiride 4 mg tablet 4 mg PO QAM #90 tabs 08/22/24 1012/26 Rx metformin 850 mg tablet 850 mg PO BID #180 tabs 08/22/24 1 Rx metoprolol tartrate 37.5 mg tablet 37.5 mg PO BID #18 (more content not included)... [facility] ED NOTEon 03-16-2025 ED NOTE HNO ID: [id number] Author: LUCI VILLAVICENCIO RN Service: ? Author Type: Registered Nurse Type: ED Notes Filed: 03/16/2025 04:20 Note Text: Report to [facility] ED NOTE HNO ID: [id number] Author: LUCI VILLAVICENCIO RN Service: ? Author Type: Registered Nurse Type: ED Notes Filed: 03/16/2025 04:26 Note Text: Called report to Rosario at strang [facility] Echo Complete W/ Contraston 03-16-2025 Echo Complete W/ Contrast [facility] [address] [place] [address] Echo Complete W/ Contrast 03/16/25 0932 MR#: [id number] Acct: [id number] Name: JAME WALLACE Rep #: [id number] : 1965 59 From: Juvenal Cedillo MD Attending Dr: Dr. Herbert Mane, DO Status: A DM IN Ordering Dr: Juvenal Cedillo MD Date: 03/16/25 Location: U Sex: M C Admitted: 03/16/25 Reason For Study Reason For Study: AFIB Procedure This was a 2D Doppler, Color Flow transthoracic echocardiogram. The study was technically difficult. Contrast injection was performed. Exam performed portable in patient room. Left Ventricle Normal LV size. Moderate concentric left ventricular hypertrophy. The left ventricular ejection fraction is 65 %. No regional wall motion abnormalities noted. Right Ventricle Normal RV size. Normal systolic function. Atria Normal left atrium. Normal right atrium. Mitral Valve Normal mitral valve. Trivial mitral valve insufficiency. Tricuspid Valve Normal tricuspid valve. Mild-Moderate (1-2+) tricuspid valve insufficiency. Pulmonary artery systolic pressure is 40 mmHg. Aortic Valve Trisinus/trileaflet aortic valve. Mild (1+) eccentric aortic valve insufficiency. Pulmonic Valve Normal pulmonic valve. Great Vessels Normal sized aortic root. Pericardium/Pleural No pericardial effusion. Medication Diluted definity 2ml given slow IV push to enhance endocardial definition. MMode/2D Measurements Calculations LVIDd: 4.8 cm IVSd: 1.6 cm LVOT diam: 2.0 cm LVIDs: 2.7 cm LVPWd: 1.6 cm FS: 42.6 % LVOT area: 3.1 cm2 Ao root diam: 3.9 cm LAV(MOD-bp): 34.2 ml LVAd ap4: 41.5 cm2 LAV(MOD-bp) Indexed: 12.2 ml/m2 LVLd ap4: 8.9 cm LAV(MOD-sp2): 24.6 ml EDV(MOD-sp4): 158.1 ml LAV(MOD-sp4): 43.0 ml EDV(sp4-el): 164.2 ml LVAs ap4: 16.1 cm2 LVLs ap4: 6.4 cm ESV(MOD-sp4): 33.5 ml ESV(sp4-el): 34.2 ml EF(MOD-sp4): 78.8 % EF(sp4-el): 79.2 % SV(MOD-sp4): 124.6 ml SV(sp4-el): 130.0 ml LA A4 area: 17.4 cm2 SI(MOD-sp4): 44.6 ml/m2 LA dimension(2D): 5.2 cm RA A4 area: 12.6 cm2 Time Measurements MV dec time: 0.30 sec Doppler Measurements Calculations MV E max александр: 103.9 cm/sec Lat Peak E' Александр: 11.6 cm/sec Med Peak E' Александр: 5.4 cm/sec MV A max александр: 87.6 cm/sec E/E' lat: 9.0 E/E' med: 19.2 MV E/A: 1.2 MV V2 max: 110.3 cm/sec MV dec slope: 348.4 cm/sec2 Ao V2 max: 200.0 cm/sec MV max P.9 mmHg Ao max P.1 mmHg MV V2 mean: 74.7 cm/sec Ao V2 mean: 132.5 cm/sec MV mean P.4 mmHg Ao mean P.2 mmHg MV V2 VTI: 44.1 cm Ao V2 VTI: 43.0 cm MVA(VTI): 2.6 cm2 AV (velocity ratio): 0.87 WHITNEY(I,D): 2.7 cm2 WHITNEY(V,D): 2.4 cm2 AI max александр: 412.9 cm/sec LV V1 max: 157.6 cm/sec SV(LVOT): 114.9 ml AI max P.2 mmHg LV V1 max P.9 mmHg LV V1 mean P.8 mmHg AI dec slope: 208.9 cm/sec2 LV V1 mean: 125.7 cm/sec AI P1/2t: 578.9 msec LV V1 VTI: 37.6 cm PA V2 max: 123.1 cm/sec TR max александр: 302.1 cm/sec PA V2 mean: 94.2 cm/sec TR max P.5 mmHg ECHO/Echo Complete W/ Contrast Interpretation Summary The left ventricular ejection fraction is 65 %. Normal LV size. Moderate concentric left ventricular hypertrophy. Mild (1+) eccentric aortic valve insufficiency. Contrast injection was performed. Ordering Physician: Juvenal Cedillo Referring Physician: JENNY LIVE Performed By: Wen Marie RCS 03/16/251599 Date Juvenal Cedillo MD CC: DAVID Live; Dr. Juvenal Cedillo MD; Dr. Herbert Mane DO Date Dictated: 03/16/25931 Date Transcribed: 10/13/25 1600 Virtualization Architect: Signed Normal [facility] Folates,Serum (Folic Acid)on 03-16-2025 FOLATES,SERUM 22.00 ng/mL Normal 4.60-34.80 [facility] Comment on above: Result Comment: Hemo lysis, Results will be affected, Requires Recollection. Performed By: #### L 506.0200 #### [facility] [address] [place], [address] H AND P Exam - Hospitaliston 03-16-2025 H&P Exam - Hospitalist [facility] Medical Records Department [address] [place] [address] H P Exam - Hospitalist 03/16/25 0539 MR#: [id number] Acct: [id number] Name: JAME WALLACE Rep #: [id number] : 1965 59 From: Jame Bashir DO PCP: DAVID Marina Status:ADM IN [facility] - General General Date of Admission: 03/16/25 Date of Service: 03/16/25 Chief Complaint: SOB. HPI Narrative JAME WALLACE, is a 59 M with a past medical history of essential hypertension; on amlodipine and metoprolol twice daily, recently diagnosed CHF; on furosemide, hyperlipidemia; on atorvastatin, hypothyroidism; on levothyroxine, morbid (class III) obesity; with BMI of 46.6 this admission, ADDY, DM-2; of unknown control on metformin twice daily, pioglitazone and glimepiride, diabetic neuropathy; on gabapentin 3 times daily plus as needed tramadol 3 times daily, recently diagnosed paroxysmal atrial fibrillation; on apixaban twice daily, RLS; on mirtazapine nightly, migraine headaches; on rimegepant prn, history of vertigo; on meclizine as needed, BPH; on tamsulosin, history of COVID-19, history of MRSA, history of Dupuytren's fibromatosis, history of diverticulitis, history of colectomy, history of appendectomy, history of cholecystectomy, history of basal cell carcinoma; s/p excision, depression; on bupropion twice daily, history of gout; currently not on treatment, RA, OA; with chronic pain on oxycodone every 6 hours as needed and recently diagnosed Right renal calculus; s/p double-J stent placement by Dr. Wiggins on March 11, 2025 who was transferred by patient's request from [facility] for ongoing treatment of recently diagnosed AE CHF; of uncertain type with BNP of 1,600. Mr. Wallace reports his symptoms began 3 weeks prior to admission when he was first diagnosed with AE CHF while at another local hospital ([facility]) with persistent dyspnea on exertion since that time that has worsened causing him to go to [facility] as he was not covered by his insurance at the previous facility. Patient does not recollect his LVEF or any details regarding his type of heart failure but he does admit to recently being diagnosed with atrial fibrillation and being started on apixaban. He admits to lower extremity edema. He denies associated fever, chills, nausea, vomiting, diarrhea, constipation, chest pain, palpitations, heart racing, dysuria, hematuria, headache or rash. He was then diagnosed with AE CHF; of uncertain type complicated by clinical evidence of Acute Respiratory Insufficiency requiring 2L NC with patient admitted to the PCU for ongoing care for stated is expected to extend beyond 2 midnights. [facility] Medical History (Updated 03/16/25 @ 06:[address] Jame Bashir, DO) Diabetes Chronic pain Kidney stones Atrial fibrillation Congestive heart failure (CHF) Wears glasses Vertigo History of MRSA infection [...] due to secondary diabetes mellitus Home Medications ???Medication ???Instructions ???Recorded ???Last Taken ???Type aspirin 81 mg tablet,delayed 81 mg PO DAILY 03/02/18 Unknown Hi story release (Adult Low Dose Aspirin) magnesium oxide 500 mg capsule 500 mg PO DAILY 03/02/18 03/10/25 History prodigy #1 ea 03/02/18 Unknown History fluticasone propionate 0.05 % 1 applic topical QD-BID PRN Unknown Rx topical cream (Cutivate) allergic reaction #60 grams albuterol sulfate 90 mcg/actuation 2 puff inhalation Q4H PRN sob #6 .7 08/22/24 Unknown Rx aerosol inhaler (Ventolin HFA) grams amlodipine 5 mg tablet 5 mg PO DAILY #90 tabs 08/22/24 Rx bupropion HCl 100 mg tablet,12 hr 100 mg PO BID #180 tabs 08/22/24 03/10/25 Rx sustained-release celecoxib 200 mg capsule 200 mg PO BID #180 caps 08/22/24 0 02/19/25 Rx gabapentin 400 mg capsule 400 mg PO TID 90 days #270 caps 03/10/25 Rx glimepiride 4 mg tablet 4 mg PO QAM #90 tabs 08/22/2412/26 Rx metformin 850 mg tablet 850 mg PO BID #180 tabs 08/22/24 1 Rx metoprolol tartrate 37.5 mg tablet 37.5 mg PO BID #180 tabs 5 03/10/25 Rx mirtazapine 15 mg tablet 7.5 mg (1/2 x 15 mg) PO QHS PRN 03/10/25 Rx sleep 90 days #90 tabs pioglitazone (more content not included)... Normal [facility] Hemoglobin A1con 03-16-2025 HbA1c (Bld) [Mass fraction] 7.9 % High <=5.6 [facility] Comment on above: Result Comment: Norm al < 5.7 % Prediabetic 5.7 - 6.4 % Diabetic >or= 6.5 % Please note range changes. Performed By: #### L 501.4021 #### [facility] [address] [place], [place], [address] L501.4021on 03-16-2025 Trop T High Sen 27 ng/L High <=22 [facility] Comment on above: Performed By: #### L 501.4021 #### [facility] [address] [place], [place], [address] Lipid Profileon 03-16-2025 CHOL:HDL 3.23 Normal [facility] Comment on above: Performed By: #### L 501.4021 #### [facility] [address] [place], [address] Cholesterol [Mass/Vol] 125 mg/dL Normal <=200 [facility] Comment on above: Result Comment: Chol esterol level, Desirable <200 mg/dL Borderline high cholesterol 200-239 mg/dL High cholesterol >=240 mg/dL Recommendations of the NCEP Adult Treatment Panel for the following risk-cutoff thresholds for the [place] population. Performed By: #### L 501.4021 #### [facility] [address] [place], [address] Cholesterol in HDL [Mass/Vol] 39 mg/dL Low [facility] Comment on above: Result Comment: Wendi onal Cholesterol Education Program (NCEP) guidelines: <40 mg/dL: Low HDL-cholesterol (major risk factor for CHD) >= 60 mg/dL: High HDL-cholesterol (negative risk factor for CHD) HDL-cholesterol is affected by a number of factors, e.g. smoking, exercise, hormones, sex and age. Performed By: #### L 501.4021 #### [facility] [address] [place], [address] Cholesterol in LDL [Mass/Vol] 59 mg/dL Normal [facility] Comment on above: Result Comment: Bord fmatuk=426-100 mg/dL Higher Oejd=243 mg/dL or greater Friedwald Equation for LDL-C Performed By: #### L 501.4021 #### [facility] [address] [place], [address] Cholesterol in VLDL [Mass/Vol] 27 mg/dL Normal 5-40 [facility] Comment on above: Performed By: #### L 501.4021 #### [facility] [address] [place], [address] Triglyceride [Mass/Vol] 135 mg/dL Normal [facility] Comment on above: Result Comment: The drugs N-Acetylcysteine and Metamizole may falsely depress this assay. Normal range: <150 mg/dL Borderline High: 150-199 mg/dL High: 200-499 mg/dL Very High: >500 mg/dL Performed By: #### L 501.4021 #### [facility] [address] [place], [address] Magnesiumon 03-16-2025 Magnesium [Mass/Vol] 1.7 mg/dL Normal 1.5-2.2 [facility] Comment on above: Performed By: #### L 501.4021 #### [facility] [address] [place], [address] Phosphoruson 03-16-2025 Phosphate [Mass/Vol] 5.3 mg/dL High 2.7-4.5 [facility] Comment on above: Performed By: #### L 501.4021 #### [facility] [address] [place], [address] Pro- Brain NATRIURETIC PEPTI Juve 03-16-2025 Natriuretic peptide B (Bld) [Mass/Vol] 966 pg/mL High <=900 [facility] Comment on above: Result Comment: Hear t Failure Unlikely: < 300 pg/mL Heart Failure Likely < 50 Years: > 450 pg/mL 50-75 Years: > 900 pg/mL >75 Years: > 1800 pg/mL Performed By: #### L 501.4021 #### [facility] [address] [place], [address] Thyroid Stim Hormone (TSH)on 03-16-2025 TSH 1.490 uIU/mL Normal 0.300-4.20 0 [facility] Comment on above: Performed By: #### L 501.4021 #### [facility] [address] [place], [address] Troponin T HS 2 HRon 025 Trop T High Sen 26 ng/L High <=22 [facility] Comment on above: Performed By: #### L 499.0042 #### [facility] [address] [place], [address] Troponin T HS 4 HRon 025 Trop T High Sen 28 ng/L High <=22 [facility] Comment on above: Performed By: #### L 100.0100, L501.9520 #### [facility] [address] [place], [address] Urinalysis complete panel (U )on 03-16-2025 Bacteria LM.HPF (Urine sed) [#/Area] Few Abnormal None Seen [facility] Comment on above: Order Comment: Speci men Type: URINE SPECIMEN Ordering Facility: [facility] Address: [address] [place] [address] Performed By: #### 2 4356-8 #### [facility] CLIA [id number] [address] Bilirubin Ql (U) Normal [facility] Comment on above: Order Comment: Speci men Type: URINE SPECIMEN Ordering Facility: [facility] Address: [address] [place] [address] Result Comment: [place] r interference, unable to perform assay. Performed By: #### 2 4356-8 #### [facility] CLIA [id number] [address] Clarity (Unsp spec) Cloudy Abnormal Clear [facility] Comment on above: Order Comment: Speci men Type: URINE SPECIMEN Ordering Facility: [facility] Address: [address] [place] [address] Performed By: #### 2 4356-8 #### [facility] CLIA [id number] [address] Color (U) [place] Abnormal Yellow [facility] Comment on above: Order Comment: Speci men Type: URINE SPECIMEN Ordering Facility: [facility] Address: [address] [place] [address] Performed By: #### 2 4356-8 #### [facility] CLIA [id number] [address] Epithelial cells LM.HPF (Urine sed) [#/Area] Few [facility] Comment on above: Order Comment: Speci men Type: URINE SPECIMEN Ordering Facility: [facility] Address: [address] [place] [address] Performed By: #### 2 4356-8 #### [facility] CLIA [id number] [address] Glucose Test strip (U) [Mass/Vol] [facility] Comment on above: Order Comment: Speci men Type: URINE SPECIMEN Ordering Facility: [facility] Address: [address] [place] [address] Result Comment: [place] r interference, unable to perform assay. Performed By: #### 2 4356-8 #### [facility] CLIA [id number] [address] Hemoglobin Ql (U) [facility] Comment on above: Order Comment: Speci men Type: URINE SPECIMEN Ordering Facility: [facility] Address: [address] [place] [address] Result Comment: [place] r interference, unable to perform assay. Performed By: #### 2 4356-8 #### [facility] CLIA [id number] [address] Ketones Ql (U) [facility] Comment on above: Order Comment: Speci men Type: URINE SPECIMEN Ordering Facility: [facility] Address: [address] [place] [address] Result Comment: [place] r interference, unable to perform assay. Performed By: #### 2 4356-8 #### [facility] CLIA [id number] [address] Leukocyte esterase Test strip Ql (U) [facility] Comment on above: Order Comment: Speci men Type: URINE SPECIMEN Ordering Facility: [facility] Address: [address] [place] [address] Result Comment: [place] r interference, unable to perform assay. Performed By: #### 2 4356-8 #### [facility] CLIA [id number] [address] [place] Nitrite Ql (U) Normal [facility] Comment on above: Order Comment: Speci men Type: URINE SPECIMEN Ordering Facility: [facility] Address: [address] [place] [address] Result Comment: [place] r interference, unable to perform assay. Performed By: #### 2 4356-8 #### [facility] CLIA [id number] [address] pH (U) Normal [facility] Comment on above: Order Comment: Speci men Type: URINE SPECIMEN Ordering Facility: [facility] Address: [address] [place] [address] Result Comment: [place] r interference, unable to perform assay. Performed By: #### 2 4356-8 #### [facility] CLIA [id number] [address] Protein (U) [Mass/Vol] Normal [facility] Comment on above: Order Comment: Speci men Type: URINE SPECIMEN Ordering Facility: [facility] Address: [address] [place] [address] Result Comment: [place] r interference, unable to perform assay. Performed By: #### 2 4356-8 #### [facility] CLIA [id number] [address] RBC LM.HPF (Urine sed) [#/Area] /[HPF] Abnormal 0-3 /HPF [facility] Comment on above: Order Comment: Speci men Type: URINE SPECIMEN Ordering Facility: [facility] Address: [address] [place] [address] Performed By: #### 2 4356-8 #### [facility] CLIA [id number] [address] Specific gravity (U) [Rel density] Normal [facility] Comment on above: Order Comment: Speci men Type: URINE SPECIMEN Ordering Facility: [facility] Address: [address] [place] [address] Result Comment: [place] r interference, unable to perform assay. Performed By: #### 2 4356-8 #### [facility] CLIA [id number] [address] [place] [address] [place] Urobilinogen Ql (U) Normal [facility] Comment on above: Order Comment: Speci men Type: URINE SPECIMEN Ordering Facility: [facility] Address: [address] [place] [address] Result Comment: [place] r interference, unable to perform assay. Performed By: #### 2 4356-8 #### [facility] CLIA [id number] [address] [place] WBC LM.HPF (Urine sed) [#/Area] 0-5 /HPF Normal 0-5 /HPF [facility] Comment on above: Order Comment: Speci men Type: URINE SPECIMEN Ordering Facility: [facility] Address: [address] [place] [address] Performed By: #### 2 4356-8 #### [facility] CLIA [id number] [address] [place] Urinalysis, Completeon 03-16 Mucus Ql (Urine sed) RARE Normal [facility] Comment on above: Order Comment: CLEAN CATCH Performed By: #### L 400.0001 #### [facility] [address] [place], [address] EPI,SQUAMOUS 0-5 SEEN Normal 0-5 [facility] Comment on above: Order Comment: CLEAN CATCH Performed By: #### L 400.0001 #### [facility] [address] [place], [address] RBC 50-100 SEEN Normal 0-5 [facility] Comment on above: Order Comment: CLEAN CATCH Performed By: #### L 400.0001 #### [facility] [address] [place], [address] WBC 10-25 SEEN Normal 0-5 [facility] Comment on above: Order Comment: CLEAN CATCH Performed By: #### L 400.0001 #### [facility] [address] [place], [address] BACTERIA 0 SEEN Normal None Seen [facility] Comment on above: Order Comment: CLEAN CATCH Performed By: #### L 400.0001 #### [facility] [address] [place], [address] Vitamin B12on 03-16-2025 Cobalamin (Vitamin B12) [Mass/Vol] 717 pg/mL Normal 180-914 [facility] Comment on above: Performed By: #### L 501.4021 #### [facility] [address] [place], [address] XR CHEST 1V FRONTAL PORTon 1 XR CHEST 1V FRONTAL PORT * * *Final Report* * * DATE OF EXAM: Mar 16 2025 2:48AM MDX 5376 - XR CHEST 1V FRONTAL PORT / PROCEDURE REASON: Shortness of breath * * * * Physician Interpretation * * * * EXAMINATION: CHEST RADIOGRAPH (PORTABLE SINGLE VIEW AP) Exam Date/Time: 03/16/2025 2:48 AM CLINICAL HISTORY: Shortness of breath MQ: XCPR_5 Comparison: Abdominal CT 03/15/2025, chest radiograph 03/10/2025 RESULT: Lines, tubes, and devices: None. Lungs and pleura: Mildly elevated right hemidiaphragm with similar mild right basilar opacities. No sizable pleural effusion or pneumothorax. Cardiomediastinal silhouette: Obscured right heart border without gross cardiac enlargement. Other: . IMPRESSION: Similar mild right basilar opacities/atelectasis. Virtualization Architect: PSCB Transcribe Date/Time: Mar 16 2025 3:40A Dictated by : NAIMA KAUFMAN MD This examination was interpreted and the report reviewed and electronically signed by: NAIMA KAUFMAN MD on Mar 16 2025 3:43AM EST [id number] Normal [facility] ALLIED HEALTHon 03-15-2025 ALLIED HEALTH HNO ID: [id number] Author: APOLLO LY RT(R) Service: ? Author Type: Technologist Type: Allied Health Filed: 03/15/2025 23:20 Note Text: Radiology Service Progress Note PATIENT NAME: Jame Wallace DATE OF SERVICE: March 15, 2025 TIME: 11:20 PM PATIENT IDENTITY VERIFICATION COMPLETED USING TWO [...] male at PATIENT RELEVANT IMPLANT DATA REVIEWED: Yes PATIENT PRESENTS WITH AN IMPLANTABLE OR ATTACHED AIR INTELLIGENCE OFFICER: No RADIOLOGY DEPARTMENT: CT; Exam(s) Completed: Abdomen/Pelvis . Anesthesia: No PERIPHERAL IV DATA: Not applicable SIGNED BY: RT Ashkan(R) March 15, 2025 11:20 PM Normal [facility] CBC W Auto Differential pane l (Bld)on 03-15-2025 Basophils (Bld) [#/Vol] 0.06 10*3/uL Normal <0.11 [facility] Comment on above: Order Comment: Speci men Type: BLOOD SPECIMEN Ordering Facility: [facility] Address: [address] [place] [address] Performed By: #### 5 7021-8 #### [facility] CLIA [id number] [address] [place] [address] [place] Basophils/100 WBC (Bld) 0.6 % Normal [facility] Comment on above: Order Comment: Speci men Type: BLOOD SPECIMEN Ordering Facility: [facility] Address: [address] [place] [address] Performed By: #### 5 7021-8 #### [facility] CLIA [id number] [address] [place] Differential cell count method Nom (Bld) Auto Normal [facility] Comment on above: Order Comment: Speci men Type: BLOOD SPECIMEN Ordering Facility: [facility] Address: [address] [place] [address] Performed By: #### 5 7021-8 #### [facility] CLIA [id number] [address] [place] [address] [place] Eosinophils (Bld) [#/Vol] 0.32 10*3/uL Normal <0.46 [facility] Comment on above: Order Comment: Speci men Type: BLOOD SPECIMEN Ordering Facility: [facility] Address: [address] [place] [address] Performed By: #### 5 7021-8 #### [facility] CLIA [id number] [address] STATES [facility] Eosinophils/100 WBC (Bld) 3.3 % Normal [facility] Comment on above: Order Comment: Speci men Type: BLOOD SPECIMEN Ordering Facility: [facility] Address: [address] [place] [address] Performed By: #### 5 7021-8 #### [facility] CLIA [id number] [address] [place] Erythrocyte distribution width (RBC) [Ratio] 13.2 % Normal 11.5-15.0 [facility] Comment on above: Order Comment: Speci men Type: BLOOD SPECIMEN Ordering Facility: [facility] Address: [address] [place] [address] Performed By: #### 5 7021-8 #### [facility] CLIA [id number] [address] [place] Hematocrit (Bld) [Volume fraction] 39.8 % Normal 39.0-51.0 [facility] Comment on above: Order Comment: Speci men Type: BLOOD SPECIMEN Ordering Facility: [facility] Address: [address] [place] [address] Performed By: #### 5 7021-8 #### [facility] CLIA [id number] [address] [place] Hemoglobin (Bld) [Mass/Vol] 12.8 g/dL Low 13.0-17.0 [facility] Comment on above: Order Comment: Speci men Type: BLOOD SPECIMEN Ordering Facility: [facility] Address: [address] [place] [address] Performed By: #### 5 7021-8 #### [facility] CLIA [id number] [address] Immature granulocytes (Bld) [#/Vol] 0.03 10*3/uL Normal <0.10 [facility] Comment on above: Order Comment: Speci men Type: BLOOD SPECIMEN Ordering Facility: [facility] Address: [address] [place] [address] Performed By: #### 5 7021-8 #### [facility] CLIA [id number] [address] Immature granulocytes/100 WBC (Bld) 0.3 % Normal [facility] Comment on above: Order Comment: Speci men Type: BLOOD SPECIMEN Ordering Facility: [facility] Address: [address] [place] [address] Performed By: #### 5 7021-8 #### [facility] CLIA [id number] [address] OF [facility] Lymphocytes (Bld) [#/Vol] 2.08 10*3/uL Normal 1.00-4.00 [facility] Comment on above: Order Comment: Speci men Type: BLOOD SPECIMEN Ordering Facility: [facility] Address: [address] [place] [address] Performed By: #### 5 7021-8 #### [facility] CLIA [id number] [address] Lymphocytes/100 WBC (Bld) 21.4 % Normal [facility] Comment on above: Order Comment: Speci men Type: BLOOD SPECIMEN Ordering Facility: [facility] Address: [address] [place] [address] Performed By: #### 5 7021-8 #### [facility] CLIA [id number] [address] MCH (RBC) [Entitic mass] 30.6 pg Normal 26.0-34.0 [facility] Comment on above: Order Comment: Speci men Type: BLOOD SPECIMEN Ordering Facility: [facility] Address: [address] [place] [address] Performed By: #### 5 7021-8 #### [facility] CLIA [id number] [address] STATES OF [facility] MCHC (RBC) [Mass/Vol] 32.2 g/dL Normal 30.5-36.0 [facility] Comment on above: Order Comment: Speci men Type: BLOOD SPECIMEN Ordering Facility: [facility] Address: [address] [place] [address] Performed By: #### 5 7021-8 #### [facility] CLIA [id number] [address] [place] MCV (RBC) [Entitic vol] 95.2 fL Normal 80.0-100.0 [facility] Comment on above: Order Comment: Speci men Type: BLOOD SPECIMEN Ordering Facility: [facility] Address: [address] [place] [address] Performed By: #### 5 7021-8 #### [facility] CLIA [id number] [address] [place] Monocytes (Bld) [#/Vol] 1.21 10*3/uL High <0.87 [facility] Comment on above: Order Comment: Speci men Type: BLOOD SPECIMEN Ordering Facility: [facility] Address: [address] [place] [address] Performed By: #### 5 7021-8 #### [facility] CLIA [id number] [address] [place] Monocytes/100 WBC (Bld) 12.4 % Normal [facility] Comment on above: Order Comment: Speci men Type: BLOOD SPECIMEN Ordering Facility: [facility] Address: [address] [place] [address] Performed By: #### 5 7021-8 #### [facility] CLIA [id number] [address] [place] [address] [place] Neutrophils (Bld) [#/Vol] 6.02 10*3/uL Normal 1.45-7.50 [facility] Comment on above: Order Comment: Speci men Type: BLOOD SPECIMEN Ordering Facility: [facility] Address: [address] [place] [address] Performed By: #### 5 7021-8 #### [facility] CLIA [id number] [address] [place] Neutrophils/100 WBC (Bld) 62.0 % Normal [facility] Comment on above: Order Comment: Speci men Type: BLOOD SPECIMEN Ordering Facility: [facility] Address: [address] [place] [address] Performed By: #### 5 7021-8 #### [facility] CLIA [id number] [address] [place] [address] [place] Nucleated RBC (Bld) [#/Vol] 10*3/uL Normal <0.01 [facility] Comment on above: Order Comment: Speci men Type: BLOOD SPECIMEN Ordering Facility: [facility] Address: [address] [place] [address] Performed By: #### 5 7021-8 #### [facility] CLIA [id number] [address] [place] [address] [place] Nucleated RBC/100 WBC (Bld) [Ratio] 0.0 /100 WBC Normal [facility] Comment on above: Order Comment: Speci men Type: BLOOD SPECIMEN Ordering Facility: [facility] Address: [address] [place] [address] Performed By: #### 5 7021-8 #### [facility] CLIA [id number] [address] [place] [address] [place] Platelet mean volume (Bld) [Entitic vol] 11.2 fL Normal 9.0-12.7 [facility] Comment on above: Order Comment: Speci men Type: BLOOD SPECIMEN Ordering Facility: [facility] Address: [address] [place] [address] Performed By: #### 5 7021-8 #### [facility] CLIA [id number] [address] [place] [address] [place] Platelets (Bld) [#/Vol] 233 10*3/uL Normal 150-400 [facility] Comment on above: Order Comment: Speci men Type: BLOOD SPECIMEN Ordering Facility: [facility] Address: [address] [place] [address] Performed By: #### 5 7021-8 #### [facility] CLIA [id number] [address] [place] [address] [place] RBC (Bld) [#/Vol] 4.18 10*6/uL Low 4.20-6.00 [facility] Comment on above: Order Comment: Lucas olson Type: BLOOD SPECIMEN Ordering Facility: [facility] Address: [address] [id number] Performed By: #### 5 7021-8 #### [facility] CLIA [id number] [address] [place] WBC (Bld) [#/Vol] 9.72 10*3/uL Normal 3.70-11.00 [facility] Comment on above: Order Comment: Speci men Type: BLOOD SPECIMEN Ordering Facility: [facility] Address: [address] [place] [id number] Performed By: #### 5 7021-8 #### [facility] CLIA [id number] [address] [place] [id number] [place] CT FLANK WO IVCONon 03-15-[address] FLANK WO IVCON * * *Final Report* * * DATE OF EXAM: Mar 15 2025 11:20PM [facility] [place] [facility] - CT FLANK WO IVCON / PROCEDURE REASON: Flank pain, kidney stone suspected * * * * Physician Interpretation * * * * EXAMINATION: CT ABDOMEN AND PELVIS WITHOUT IV CONTRAST (Renal stone protocol) CLINICAL HISTORY: Unspecified flank pain. Hematuria. TECHNIQUE: Non-contrast imaging of the abdomen and pelvis was performed through the urinary tract. Study performed without intravenous or oral contrast to evaluate for urinary tract calculus. MQ: CTAbdPelvF_1 Contrast: IV contrast: None Oral contrast: None CT Radiation dose: Integrated dose-length product (DLP) for this visit = 2396 mGy*cm. CT Dose Reduction Employed: Automated exposure control(AEC) and iterative recon COMPARISON: CT 02/07/2025 RESULT: Limitations: Unenhanced imaging is limited for the evaluation of some renal and other intra-abdominal and pelvic pathology. Urinary Tract: Right kidney and ureter: There has been interval placement of a right double-J ureteral stent. The proximal portion is coiled in the renal pelvis. The distal portion is coiled in the bladder. No hydronephrosis. There is a 2 mm nonobstructive calculus in the mid kidney. Left kidney and ureter: No calculus. No hydronephrosis. No finding to suggest cyst or mass in the unenhanced kidney. Bladder: No calculus. Abdomen and Pelvis: Liver: Unremarkable. Biliary: Gallbladder is surgically absent. Spleen: No splenomegaly. Pancreas: Unremarkable. Adrenals: Normal. GI Tract: No bowel dilation. Colorectal anastomotic suture. Lymph Nodes: Mildly enlarged periportal lymph node measuring 1.3 cm (2:73) unchanged. No retroperitoneal or pelvic adenopathy. Mesentery/peritoneum: No ascites. Vasculature: No abdominal aortic or iliac artery aneurysm. Pelvis: No mass or ascites. Bones and Soft Tissues: No acute fracture or osseous lesions are identified. There are degenerative changes in the spine. Lower thorax: Right basilar atelectasis. Localizer images: No additional findings. IMPRESSION: 1. Interval placement of a right double-J ureteral stent. No hydronephrosis. 2. Nonobstructive right nephrolithiasis. Virtualization Architect: PAUL Transcribe Date/Time: Mar 16 2025 1:17A Dictated by : ENID ARIAS MD This examination was interpreted and the report reviewed and electronically signed by: ENID ARIAS MD on Mar 16 2025 1:28AM EST [id number] Normal [facility] Comprehensive metabolic 2000 panelon 03-15-2025 Albumin [Mass/Vol] 3.9 g/dL Normal 3.9-4.9 [facility] Comment on above: Order Comment: Spectay olson Type: BLOOD SPECIMEN Ordering Facility: [facility] Address: [address] [place] [address] Performed By: #### 3 040-3, 42210-7, 74463-2 #### [facility] CLIA [id number] [address] [place] ALP [Catalytic activity/Vol] 97 U/L Normal 38-113 [facility] Comment on above: Order Comment: Speci men Type: BLOOD SPECIMEN Ordering Facility: [facility] Address: [address] [place] [address] Performed By: #### 3 040-3, 97484-8, 24939-3 #### [facility] CLIA [id number] [address] [place] ALT [Catalytic activity/Vol] 10 U/L Normal 10-54 [facility] Comment on above: Order Comment: Speci men Type: BLOOD SPECIMEN Ordering Facility: [facility] Address: [address] [place] [address] Performed By: #### 3 040-3, 30721-1, #### [facility] CLIA [id number] [address] [place] [address] [place] Anion gap [Moles/Vol] 8 mmol/L Normal 8-15 [facility] Comment on above: Order Comment: Speci men Type: BLOOD SPECIMEN Ordering Facility: [facility] Address: [address] [place] [address] Performed By: #### 3 040-3, 58826-9, #### [facility] CLIA [id number] [address] [place] [address] [place] AST [Catalytic activity/Vol] 27 U/L Normal 14-40 [facility] Comment on above: Order Comment: Speci men Type: BLOOD SPECIMEN Ordering Facility: [facility] Address: [address] [place] [address] Performed By: #### 3 040-3, 14577-0, #### [facility] CLIA [id number] [address] [place] [address] [place] Bilirubin [Mass/Vol] 0.4 mg/dL Normal 0.2-1.3 [facility] Comment on above: Order Comment: Speci men Type: BLOOD SPECIMEN Ordering Facility: [facility] Address: [address] [place] [address] Performed By: #### 3 040-3, 01368-0, #### [facility] CLIA [id number] [address] [place] [address] [place] Calcium [Mass/Vol] 9.2 mg/dL Normal 8.5-10.2 [facility] Comment on above: Order Comment: Speci men Type: BLOOD SPECIMEN Ordering Facility: [facility] Address: [address] [place] [address] [place] [address] Performed By: #### 3 040-3, 23900-2, 78474-7 #### [facility] CLIA [id number] [address] [place] [address] [place] Chloride [Moles/Vol] 98 mmol/L Normal 98-107 [facility] Comment on above: Order Comment: Speci men Type: BLOOD SPECIMEN Ordering Facility: [facility] Address: [address] [place] [address] Performed By: #### 3 040-3, 70484-5, 50707-2 #### [facility] CLIA [id number] [address] [place] [address] [place] CO2 [Moles/Vol] 33 mmol/L High 22-30 [facility] Comment on above: Order Comment: Speci men Type: BLOOD SPECIMEN Ordering Facility: [facility] Address: [address] [place] [address] Performed By: #### 3 040-3, 09806-5, 03197-3 #### [facility] CLIA [id number] [address] [place] Creatinine [Mass/Vol] 1.65 mg/dL High 0.73-1.22 [facility] Comment on above: Order Comment: Speci men Type: BLOOD SPECIMEN Ordering Facility: [facility] Address: [address] [place] [address] Performed By: #### 3 040-3, 09472-4, 42816-8 #### [facility] CLIA [id number] [address] [place] eGFRcr SerPlBld CKD-EPI 2020 48 mL/min/1.73m??? Low >=60 [facility] Comment on above: Order Comment: Phuci men Type: BLOOD SPECIMEN Ordering Facility: [facility] Address: [address] [place] [address] Result Comment: Delaney mated Glomerular Filtration Rate [...] accurately reflect actual GFR. Performed By: #### 3 040-3, 99299-9, 50941-8 #### [facility] CLIA [id number] [address] [place] [address] [place] Glucose [Mass/Vol] 152 mg/dL High 74-99 [facility] Comment on above: Order Comment: Lucas olson Type: BLOOD SPECIMEN Ordering Facility: [facility] Address: [address] [place] [address] Result Comment: The [place] Diabetes Association (ADA) provides guidance for cutoff [...] Standards of Medical Care in Diabetes 2016, [place] [employer]. Diabetes Care. 2016.39(Suppl 1). Performed By: #### 3 040-3, 44039-6, 31921-7 #### [facility] CLIA [id number] [address] [place] [address] [place] Potassium [Moles/Vol] 4.7 mmol/L Normal 3.7-5.1 [facility] Comment on above: Order Comment: Lucas olson Type: BLOOD SPECIMEN Ordering Facility: [facility] Address: [address] [place] [address] Performed By: #### 3 040-3, 21664-2, 83480-9 #### [facility] CLIA [id number] [address] [place] [address] [place] Protein [Mass/Vol] 7.2 g/dL Normal 6.3-8.0 [facility] Comment on above: Order Comment: Lucas olson Type: BLOOD SPECIMEN Ordering Facility: [facility] Address: [address] [place] [address] Performed By: #### 3 040-3, 53127-1, 95054-8 #### [facility] CLIA [id number] [address] [place] [address] [place] Sodium [Moles/Vol] 139 mmol/L Normal 136-144 [facility] Comment on above: Order Comment: Speci men Type: BLOOD SPECIMEN Ordering Facility: [facility] Address: [address] [place] [address] Performed By: #### 3 040-3, 27396-6, 92762-1 #### [facility] CLIA [id number] [address] [place] [address] [facility] Urea nitrogen [Mass/Vol] 26 mg/dL High 9-24 [facility] Comment on above: Order Comment: Speci men Type: BLOOD SPECIMEN Ordering Facility: [facility] Address: [address] [place] [address] Performed By: #### 3 040-3, 44988-5, 54696-4 #### [facility] CLIA [id number] [address] ED NOTEon 03-15-2025 ED NOTE HNO ID: [id number] Author: LUCI VILLAVICENCIO RN Service: ? Author Type: Registered Nurse Type: ED Notes Filed: 03/15/2025 23:26 Note Text: Provided Pt with urinal and informed him UA is needed [facility] ED NOTE HNO ID: [id number] Author: PEDRO VILLASEÑOR RN Service: ? Author Type: Registered Nurse Type: ED Notes Filed: 03/15/2025 22:43 Note Text: 50mcg fentanyl, 4mg zofran, 250ml ivf given in ems. Normal [facility] ED PROV NOTEon 03-15-2025 ED PROV NOTE HNO ID: [id number] Author: JANETTE MCNAMARA DO Service: Emergency Medicine Author Type: Physician Type: ED Provider Notes Filed: 03/16/2025 06:47 Note Text: ED Provider Note Patient Name: Jame Wallace : 1965 SERVICE DATE: 03/15/25 History No chief complaint on file. Jame Wallace is a 59-year-old male with history of diabetes, diverticulitis, obesity, kidney stone, rheumatoid arthritis, paralyzed hemidiaphragm, CHF, partial colon resection, presents from home via EMS for reports of flank pain and dizziness. Patient was given Zofran, fentanyl and IV fluid by EMS. Patient notes he was just at [facility] for kidney stone and had a stent placed on the right side. He states he has been doing fairly well. He states he took an oxycodone around 1600 and it helped with then his pain got much worse about 1.5 hours ago. Patient states he asked EMS to take him back to [facility] but they could not. 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 Neurological: Positive for dizziness. Physical Exam Vitals BP Pulse Temp Temp src Resp SpO2 Weight Height -- -- -- -- -- -- -- -- Physical Exam Vitals and nursing note reviewed. Constitutional: General: He is not in acute distress. Appearance: Normal appearance. He is well-developed. He is not diaphoretic. HENT: Head: Normocephalic and atraumatic. Nose: Nose normal. Mouth/Throat: Mouth: Mucous membranes are moist. Eyes: General: No scleral icterus. Conjunctiva/sclera: Conjunctivae normal. Neck: Vascular: No JVD. Trachea: No tracheal deviation. Cardiovascular: Rate and Rhythm: Normal rate and regular rhythm. Heart sounds: Normal heart sounds. No murmur heard. No friction rub. No gallop. Pulmonary: Effort: Pulmonary effort is normal. No respiratory distress. Breath sounds: Normal breath sounds. No stridor. No wheezing or rales. Abdominal: General: Abdomen is protuberant. Bowel sounds are normal. There is no distension. Palpations: Abdomen is soft. There is no mass. Tenderness: There is no abdominal tenderness. There is no guarding or rebound. Hernia: No hernia is present. Comments: Mild right flank pain to palpation Musculoskeletal: General: No deformity. Normal range of motion. Cervical back: Neck supple. Skin: General: Skin is warm and dry. Capillary Refill: Capillary refill takes less than 2 seconds. Findings: No erythema. Neurological: Mental Status: He is alert and oriented to person, place, and time. Psychiatric: Behavior: Behavior normal. Thought Content: Thought content normal. Judgment: Judgment normal. Diagnostic Testing ED Labs Ordered and Reviewed - No data to display Procedures ED Course / Clinical Impression ED Course as of 03/16/25 0645 Janette Mcnamara's Documentation Sun Mar 15, 2025 2321 CBC shows a normal white count. Hemoglobin 12.8. Lipase slight low at 111. CMP shows mild BHAVYA with BUN of 26 creatinine 1.65. [facility] Mar 16, [address] FLANK WO IVCON Clinical Impressions as of 03/16/25 0645 Right flank pain Dizziness Hypoxia Acute on chronic congestive heart failure, unspecified heart failure type (HCC) MDM / Disposition / Plan Course: Vital signs were reviewed. Triage records were reviewed. Medical records were reviewed. Nursing notes were reviewed and incorporated. Medical Decision Making: Jame Wallace is a 59-year-old male who presents from home via EMS for right flank pain and dizziness. He had a right ureteral stent placed last Sunday at [facility] for kidney stone. On exam, he is in no distress. Pulse ox was actually 85% on room air, patient put on 3 L of oxygen via nasal cannula. Pulse ox up to 93%. He was given fentanyl by EMS. Heart is regular rate rhythm. Lungs are clear. Abdomen is round and soft. He does have mild right flank pain palpation without rigidity or g (more content not included)... Normal [facility] Lipase SerPl-cCncon 03-15-20 25 Lipase [Catalytic activity/Vol] 111 U/L High 16-61 [facility] Comment on above: Order Comment: Speci men Type: BLOOD SPECIMEN Ordering Facility: [facility] Address: [address] [id number] Performed By: #### 3 040-3, 03908-4, 55314-2 #### [facility] CLIA [id number] [address] [id number] [facility] NT-proBNP SerPl-ncon 03-15 Natriuretic peptide.B prohormone N-Terminal [Mass/Vol] 1620 pg/mL High <125 [facility] Comment on above: Order Comment: Speci men Type: BLOOD SPECIMEN Ordering Facility: [facility] Address: [address] [id number] Performed By: #### 3 040-3, 54455-5, 43405-7 #### [facility] CLIA [id number] [address] Bedside Glucoseon 03-11-2025 FINGERSTICK GLU 154 mg/dL High 74-106 [facility] Comment on above: Result Comment: KAE HOPPER OF PATIENT CARE PER NURSING PROTOCOL Performed By: #### L 501.4021 #### [facility] [address] [place], [address] Discharge Instructionon Discharge Instruction [facility] Medical Records Department [address] [place] [address] Instructions for Home/Discharge Instructions 03/11/25 1036 MR#: [id number] Acct: [id number] Name: JAME WALLACE Rep #: [id number] : 1965 59 From: Edmundo Wiggins MD PCP: DAVID Marina Status:REG SDC Discharge Instructions DC O2, CPAP, BIPAP needs Home O2 Discharge instructions: No Dressing / Incision Discharge Activity: Return to Normal Activity and May Not Drive (while taking narcotic pain medications.) Dressing / Incision Call your doctor if you observe: Fever of 101 or Higher Follow Up Care Please Follow Up With: Edmundo Wiggins MD When: Call [phone] for an appointment Test Results: Test results from this visit will be discussed in further detail at your follow-up appointment, if applicable. Discharge Plan Admission Primary Reason for Your Visit: right kidney stone Attending Provider: Edmundo Wiggins Primary Care Provider: Jenny Live BUSINESS SERVICES COORDINATOR Instructions Print Language: Kuwaiti Discharge Orders/Prescriptions Prescriptions: New cephalexin 500 mg [...] MD [Med Staff - Active Staff, Urology] Jenny Live NP, BUSINESS SERVICES COORDINATOR-C [Primary Care Provider, Family Practice] Disposition Disposition (needs filled in before D/C Order can be placed): Home, Self Care 03/11/25 1037 Edmundo Wiggins MD CC: BUSINESS SERVICES COORDINATOR-C Jenny Live Signed Normal [facility] Glucose measurement at bedsi deOrdered By: Edmundo Wiggins on 03-11-2025 Glucose [Mass/Vol] 154 mg/dL High [phone] [facility] Comment on above: MANAGEMENT OF PATIEN T CARE PER NURSING PROTOCOL MR/POSTOP.ANEon 03-11-2025 MR/POSTOP.[facility] Medical Records Department [address] [place] [address] Anesthesia Postop Eval I 03/11/25 1243 MR#: [id number] Acct: [id number] Name: JAME WALLACE Rep #: [id number] : 1965 59 From: Ralph Medina CRNA PCP: ELDON MarinaC Status:DEP SD Y Race: C Location: [facility] Anesthesia: Postop Eval I Current Vital Signs Temperature: 97 F Pulse Rate: 76 Blood Pressure: 124/64 Respiratory Rate: 16 Pulse Ox: 96 Oxygen Delivery Method: Nasal Cannula Oxygen Flow Rate (L/min): 2 Assessment Airway patent: Yes Spontaneous unlabored respirations: Yes Mental status: Awake and Calm nausea: No Vomiting: No Anesthesia Complication: No Fluid Hydration Crystalloid volume administer (ml): 800 Total IV fluid infused: 800 Progress Note Post-operative progress note: Evaluation time 1045 Anesthesia document: Postop Eval 1 completed: Yes 03/11/25 1245 Date Ralph Medina CRNA Cosigner Signature: Date CC: Signed Normal [facility] MR/[id number] 03-11-2025 [facility] Medical Records Department [address] [place] [address] Anesthesia Postop Eval II 03/11/25 1230 MR#: [id number] Acct: [id number] Name: JAME WALLACE Rep #: [id number] : 1965 59 From: Roman Pichardo MD PCP: DAVID Marina Status:DIOR Bentley Race: C Location: [facility] Anesthesia Postop Eval I Sum Anesthesia Postop Eval I Summary Anesthesia Postop Eval I Summary: Anesthesia Postop Eval I: Assessment Summary Airway patent Spontaneous unlabored respirations Mental status nausea Vomiting Anesthesia Postop Eval I: Fluid Summary Crystalloid volume administer (ml) Colloids volume administered ( ml) Blood Product volume administered (ml) Total IV fluid infused Anesthesia Postop Eval I: Summary Notes Anesthesia Complication Anesthesia Complication Comment: Post-operative progress note Anesthesia: Postop Eval II Evaluation Mental status: Awake and Calm Pain Level: 1 nausea: No Vomiting: No Complications Anesthesia Complication: No 03/11/25 1230 Date Roman Vera Signature: Date CC: Signed Normal [facility] Operative Reporton 5 Operative Report [facility] Medical Records Department [address] [place] [address] Operative Report 03/11/25 1037 MR#: [id number] Acct: [id number] Name: JAME WALLACE Rep #: [id number] : 1965 59 From: Edmundo Wiggins MD PCP: DAVID Marina Status:[facility] Location: [place] [address] Operative Report (Standard) Operative Information Date of Procedure: 03/11/25 Pre-Operative Diagnosis: Right kidney stone Post-Operative Diagnosis: The same Surgery/Procedure Performed: Cystoscopy right ureteroscopy laser lithotripsy of stone and right stent placement, right retrograde pyelogram senior energy consultant: No Type of Anesthesia: General RN Documented [...] fashion within the bladder with a 21 [place] rigid cystourethroscope cannulated the right ureter orifice with a Glidewire and a Pollick catheter performed a retrograde pyelogram, and then after this to put a wire up into the right kidney over the wire I went in with a 8 [place] Citizen flexible Olympus ureteroscope was able to get in the ureter quite easily worked our way all up the way to the kidney I then found the stone in the midpole of the right kidney I used 365 ???m laser fiber and thulium fiber with dusting settings and the stone was lasered completely into tiny little pieces after successfully lasering the stone I worked my way down the ureter and then put a wire up into the right kidney of the wire placed a stent stent coiled in the kidney and bladder in good position the wire was pulled bladder was drained patient anesthetic reversed taken back to PACU in stable condition and follow-up in 1 week for stent removal Surgical Findings: Stone lasered completely Complications Complications: No Admit VTE Documentation VTE Present on Admission: No VTE Mechan Device Prophylaxis: SCD's VTE Pharm Prophylaxis ordered?: No 03/11/25 1039 Cosigner Signature (if applicable): CC: DAVID Live; Dr. Edmundo Wiggins MD Signed Normal [facility] 03-10-2025 [facility] HNO ID: [id number] Author: AMY MOY RT(R) Service: ? Author Type: Technologist Type: Allied Health Filed: 03/10/2025 17:54 Note Text: Radiology Service Progress Note PATIENT NAME: Jame Wallace DATE OF SERVICE: March 10, 2025 TIME: 5:53 PM PATIENT IDENTITY VERIFICATION COMPLETED USING TWO [...] PATIENT PRESENTS WITH AN IMPLANTABLE OR ATTACHED AIR INTELLIGENCE OFFICER: No RADIOLOGY DEPARTMENT: General X-ray: Exam(s) Completed: Chest X-Ray Upper Extremity X-Ray(s): Elbow, right PERIPHERAL IV DATA: Not applicable SIGNED BY: Amy Moy RT(R) March 10, 2025 5:53 PM Normal [facility] HNO ID: [id number] Author: JUNE WESTFALL CT Service: Radiology Author Type: Technologist Type: Allied Health Filed: 03/10/2025 17:34 Note Text: Radiology Service Progress Note PATIENT NAME: Jame Wallace DATE OF SERVICE: March 10, 2025 TIME: 5:34 PM PATIENT IDENTITY VERIFICATION COMPLETED USING TWO [...] PATIENT PRESENTS WITH AN IMPLANTABLE OR ATTACHED AIR INTELLIGENCE OFFICER: No RADIOLOGY DEPARTMENT: CT; Exam(s) Completed: Brain and CSP, LSP. Anesthesia: No PERIPHERAL IV DATA: Not applicable SIGNED BY: BOBBI Patel March 10, 2025 5:34 PM Normal [facility] CBC panel Auto (Bld)on 03-10 Erythrocyte distribution width (RBC) [Ratio] 13.4 % Normal 11.5-15.0 [facility] Comment on above: Order Comment: Speci wesley Type: BLOOD SPECIMENOrdering Facility: [facility] Address: [address] [place] [address] Performed By: #### 5 8410-2 ####[facility] [employer] LABCLIA [id number] [place], [place] [id number] [place] [address] [place] Hematocrit (Bld) [Volume fraction] 40.0 % Normal 39.0-51.0 [facility] Comment on above: Order Comment: Speci men Type: BLOOD SPECIMENOrdering Facility: [facility] Address: [address] [place] [address] Performed By: #### 5 8410-2 ####[facility] LABCLIA [id number] [place] [address] [facility] Hemoglobin (Bld) [Mass/Vol] 12.6 g/dL Low 13.0-17.0 [facility] Comment on above: Order Comment: Speci men Type: BLOOD SPECIMENOrdering Facility: [facility] Address: [address] [place] [address] Performed By: #### 5 8410-2 ####[facility] LABCLIA [id number] [place] [address] [facility] MCH (RBC) [Entitic mass] 30.1 pg Normal 26.0-34.0 [facility] Comment on above: Order Comment: Speci men Type: BLOOD SPECIMENOrdering Facility: [facility] Address: [address] [place] [address] Performed By: #### 5 8410-2 ####[facility] LAB[facility] [id number] [place] [id number] [facility] MCHC (RBC) [Mass/Vol] 31.5 g/dL Normal 30.5-36.0 [facility] Comment on above: Order Comment: Speci men Type: BLOOD SPECIMENOrdering Facility: [facility] Address: [address] [place] [address] Performed By: #### 5 8410-2 ####[facility] LABCLIA [id number] [place] [address] [place] MCV (RBC) [Entitic vol] 95.7 fL Normal 80.0-100.0 [facility] Comment on above: Order Comment: Speci men Type: BLOOD SPECIMENOrdering Facility: [facility] Address: [address] [place] [address] Performed By: #### 5 8410-2 ####[facility] LABCLIA [id number] [place] [address] [place] Platelet mean volume (Bld) [Entitic vol] 11.2 fL Normal 9.0-12.7 [facility] Comment on above: Order Comment: Speci men Type: BLOOD SPECIMENOrdering Facility: [facility] Address: [address] [place] [address] Performed By: #### 5 8410-2 ####[facility] LABCLIA [id number] [place] [address] [facility] Platelets (Bld) [#/Vol] 233 10*3/uL Normal 150-400 [facility] Comment on above: Order Comment: Speci men Type: BLOOD SPECIMENOrdering Facility: [facility] Address: [address] [place] [address] Performed By: #### 5 8410-2 ####[facility] LABCLIA [id number] [place] [address] [facility] RBC (Bld) [#/Vol] 4.18 10*6/uL Low 4.20-6.00 [facility] Comment on above: Order Comment: Speci men Type: BLOOD SPECIMENOrdering Facility: [facility] Address: [address] [place] [address] Performed By: #### 5 8410-2 ####[facility] LABCLIA [id number] [place], [place] [id number] [place] [address] WBC (Bld) [#/Vol] 9.73 10*3/uL Normal 3.70-11.00 [facility] Comment on above: Order Comment: Speci men Type: BLOOD SPECIMENOrdering Facility: [facility] Address: [address] [place] [address] Performed By: #### 5 8410-2 ####[facility] LABCLIA [id number] [place] [address] [facility] [address] BRAIN WO IVCONon 03-10-20 CT BRAIN WO IVCON * * *Final Report* * * DATE OF EXAM: Mar 10 2025 5:33PM [facility] 0504 - CT BRAIN WO IVCON / PROCEDURE REASON: Head trauma, coagulopathy (Age 19-64y) * * * * Physician Interpretation * * * * EXAMINATION: CT BRAIN WO IVCON, CT CERVICAL SPINE WO IVCON, CT LUMBAR SPINE WO IVCON PATIENT/TECHNOLOGIST PROVIDED HISTORY: Syncope. Trauma. CLINICAL INFORMATION ( PROVIDED BY ORDERING CLINICIAN) : Blunt trauma Technique: Noncontrast CT of head, cervical and lumbar spine. Multiplanar reconstructions. Contrast: None CT Radiation dose: Integrated Dose-length product (DLP) for this visit = 795.48 (accession [id number]), 529.16 (accession [id number]), 1179.18 (accession [id number]) mGy*cm. CT Dose Reduction Employed: No dose reduction techniques were required (accession [id number]), Automated exposure control(AEC) and iterative recon (accession [id number]), Automated exposure control(AEC) and iterative recon (accession [id number]) Comparison: None available Limitations: 10/03/2021, 02/07/2025 RESULT: MANAGEMENT ASSOCIATE: No additional findings. HEAD: Post-operative change: None. Acute change: No acute intracranial hemorrhage identified. Mass effect / Mass lesion: No mass effect, midline shift or extra-axial fluid collection identified. Chronic change: None. Ventricles: Within normal limits for age. Paranasal sinuses: Well aerated. Other: Included bones and soft tissues are otherwise generally unremarkable. CERVICAL SPINE: Saxophone Player (topogram) images: No additional findings. Counting reference: Craniocervical junction. Anatomic Variants: None. Alignment: Alignment is anatomic. Craniocervical junction: Craniocervical junction is normal. Osseous structures/fracture: No evidence of a lytic or blastic process in the visualized spine. No evidence of acute or chronic fracture. Cervical soft tissues: The paraspinal soft tissues are within normal limits. Degenerative changes: Scattered mild degenerative change. At least mild bony neural foraminal narrowing on the RIGHT at C6-C7. LUMBAR SPINE: Counting reference: Lumbosacral junction. For the purposes of this report, L4-5 is considered the level of the iliac crest and assume there are 5 lumbar-type vertebrae. Anatomic variant: None. Alignment: Alignment is anatomic. Bone marrow /fracture: No evidence of a lytic or blastic process in the visualized spine. No evidence of acute or chronic fracture. Paraspinal soft tissues: The paraspinal soft tissues planes are maintained. Degenerative changes: Multilevel degenerative disc disease, moderate to severe and multilevel spondylosis. Mild to moderate multilevel lumbar bony central canal narrowing and mild to moderate multilevel bony neural foraminal narrowing, most prominent at L4-L5. Sacrum and iliac wings: The visualized sacrum and iliac wings are within normal limits. Other: 7 mm nonobstructing RIGHT kidney interpolar stone. Renal parenchymal thinning favored. Bowel anastomosis identified. IMPRESSION: No acute intracranial abnormality identified. No acute displaced fracture/traumatic malalignment of the cervical or lumbar spine. Degenerative changes in the spine. 7 mm nonobstructing RIGHT nephrolithiasis. This may have been previously located in the proximal RIGHT ureter. Details and incidental findings as discussed. Virtualization Architect: PSCB Transcribe Date/Time: Mar 10 2025 6:00P Dictated by : BONY COOPER MD This examination was interpreted and the report reviewed and electronically signed by: BONY COOPER MD on Mar 10 2025 6:10PM EST [id number] Normal [facility] CT CERVICAL SPINE WO IVCONon 03-10-2025 CT CERVICAL SPINE WO IVCON * * *Final Report* * * DATE OF EXAM: Mar 10 2025 5:33PM [facility] 0505 - CT CERVICAL SPINE WO IVCON / PROCEDURE REASON: Spine fracture, cervical, traumatic * * * * Physician Interpretation * * * * EXAMINATION: CT BRAIN WO IVCON, CT CERVICAL SPINE WO IVCON, CT LUMBAR SPINE WO IVCON PATIENT/TECHNOLOGIST PROVIDED HISTORY: Syncope. Trauma. CLINICAL INFORMATION ( PROVIDED BY ORDERING CLINICIAN) : Blunt trauma Technique: Noncontrast CT of head, cervical and lumbar spine. Multiplanar reconstructions. Contrast: None CT Radiation dose: Integrated Dose-length product (DLP) for this visit = 795.48 (accession [id number]), 529.16 (accession [id number]), 1179.18 (accession [id number]) mGy*cm. CT Dose Reduction Employed: No dose reduction techniques were required (accession [id number]), Automated exposure control(AEC) and iterative recon (accession [id number]), Automated exposure control(AEC) and iterative recon (accession [id number]) Comparison: None available Limitations: 10/03/2021, 02/07/2025 RESULT: MANAGEMENT ASSOCIATE: No additional findings. HEAD: Post-operative change: None. Acute change: No acute intracranial hemorrhage identified. Mass effect / Mass lesion: No mass effect, midline shift or extra-axial fluid collection identified. Chronic change: None. Ventricles: Within normal limits for age. Paranasal sinuses: Well aerated. Other: Included bones and soft tissues are otherwise generally unremarkable. CERVICAL SPINE: Saxophone Player (topogram) images: No additional findings. Counting reference: Craniocervical junction. Anatomic Variants: None. Alignment: Alignment is anatomic. Craniocervical junction: Craniocervical junction is normal. Osseous structures/fracture: No evidence of a lytic or blastic process in the visualized spine. No evidence of acute or chronic fracture. Cervical soft tissues: The paraspinal soft tissues are within normal limits. Degenerative changes: Scattered mild degenerative change. At least mild bony neural foraminal narrowing on the RIGHT at C6-C7. LUMBAR SPINE: Counting reference: Lumbosacral junction. For the purposes of this report, L4-5 is considered the level of the iliac crest and assume there are 5 lumbar-type vertebrae. Anatomic variant: None. Alignment: Alignment is anatomic. Bone marrow /fracture: No evidence of a lytic or blastic process in the visualized spine. No evidence of acute or chronic fracture. Paraspinal soft tissues: The paraspinal soft tissues planes are maintained. Degenerative changes: Multilevel degenerative disc disease, moderate to severe and multilevel spondylosis. Mild to moderate multilevel lumbar bony central canal narrowing and mild to moderate multilevel bony neural foraminal narrowing, most prominent at L4-L5. Sacrum and iliac wings: The visualized sacrum and iliac wings are within normal limits. Other: 7 mm nonobstructing RIGHT kidney interpolar stone. Renal parenchymal thinning favored. Bowel anastomosis identified. IMPRESSION: No acute intracranial abnormality identified. No acute displaced fracture/traumatic malalignment of the cervical or lumbar spine. Degenerative changes in the spine. 7 mm nonobstructing RIGHT nephrolithiasis. This may have been previously located in the proximal RIGHT ureter. Details and incidental findings as discussed. Virtualization Architect: PSCB Transcribe Date/Time: Mar 10 2025 6:00P Dictated by : BONY COOPER MD This examination was interpreted and the report reviewed and electronically signed by: BONY COOPER MD on Mar 10 2025 6:10PM EST [id number] Normal [facility] CT LUMBAR SPINE WO IVCONon 1 CT LUMBAR SPINE WO IVCON * * *Final Report* * * DATE OF EXAM: Mar 10 2025 5:33PM [facility] 0508 - CT LUMBAR SPINE WO IVCON / PROCEDURE REASON: Spine fracture, lumbar, traumatic * * * * Physician Interpretation * * * * EXAMINATION: CT BRAIN WO IVCON, CT CERVICAL SPINE WO IVCON, CT LUMBAR SPINE WO IVCON PATIENT/TECHNOLOGIST PROVIDED HISTORY: Syncope. Trauma. CLINICAL INFORMATION ( PROVIDED BY ORDERING CLINICIAN) : Blunt trauma Technique: Noncontrast CT of head, cervical and lumbar spine. Multiplanar reconstructions. Contrast: None CT Radiation dose: Integrated Dose-length product (DLP) for this visit = 795.48 (accession [id number]), 529.16 (accession [id number]), 1179.18 (accession [id number]) mGy*cm. CT Dose Reduction Employed: No dose reduction techniques were required (accession [id number]), Automated exposure control(AEC) and iterative recon (accession [id number]), Automated exposure control(AEC) and iterative recon (accession [id number]) Comparison: None available Limitations: 10/03/2021, 02/07/2025 RESULT: MANAGEMENT ASSOCIATE: No additional findings. HEAD: Post-operative change: None. Acute change: No acute intracranial hemorrhage identified. Mass effect / Mass lesion: No mass effect, midline shift or extra-axial fluid collection identified. Chronic change: None. Ventricles: Within normal limits for age. Paranasal sinuses: Well aerated. Other: Included bones and soft tissues are otherwise generally unremarkable. CERVICAL SPINE: Saxophone Player (topogram) images: No additional findings. Counting reference: Craniocervical junction. Anatomic Variants: None. Alignment: Alignment is anatomic. Craniocervical junction: Craniocervical junction is normal. Osseous structures/fracture: No evidence of a lytic or blastic process in the visualized spine. No evidence of acute or chronic fracture. Cervical soft tissues: The paraspinal soft tissues are within normal limits. Degenerative changes: Scattered mild degenerative change. At least mild bony neural foraminal narrowing on the RIGHT at C6-C7. LUMBAR SPINE: Counting reference: Lumbosacral junction. For the purposes of this report, L4-5 is considered the level of the iliac crest and assume there are 5 lumbar-type vertebrae. Anatomic variant: None. Alignment: Alignment is anatomic. Bone marrow /fracture: No evidence of a lytic or blastic process in the visualized spine. No evidence of acute or chronic fracture. Paraspinal soft tissues: The paraspinal soft tissues planes are maintained. Degenerative changes: Multilevel degenerative disc disease, moderate to severe and multilevel spondylosis. Mild to moderate multilevel lumbar bony central canal narrowing and mild to moderate multilevel bony neural foraminal narrowing, most prominent at L4-L5. Sacrum and iliac wings: The visualized sacrum and iliac wings are within normal limits. Other: 7 mm nonobstructing RIGHT kidney interpolar stone. Renal parenchymal thinning favored. Bowel anastomosis identified. IMPRESSION: No acute intracranial abnormality identified. No acute displaced fracture/traumatic malalignment of the cervical or lumbar spine. Degenerative changes in the spine. 7 mm nonobstructing RIGHT nephrolithiasis. This may have been previously located in the proximal RIGHT ureter. Details and incidental findings as discussed. Virtualization Architect: PAUL Transcribe Date/Time: Mar 10 2025 6:00P Dictated by : BONY COOPER MD This examination was interpreted and the report reviewed and electronically signed by: BONY COOPER MD on Mar 10 2025 6:10PM EST [id number] Normal [facility] Comprehensive metabolic 2000 panelon 03-10-2025 Albumin [Mass/Vol] 3.8 g/dL Low 3.9-4.9 [facility] Comment on above: Order Comment: Lucas olson Type: BLOOD SPECIMENOrdering Facility: [facility] Address: [address] [place] [address] Performed By: #### 2 4323-8, 17067-3, 55404-6, 3040-3 ####[facility] LABCLIA [id number] [place] [address] [place] ALP [Catalytic activity/Vol] 90 U/L Normal 38-113 [facility] Comment on above: Order Comment: Lucas olson Type: BLOOD SPECIMENOrdering Facility: [facility] Address: [address] [place] [address] Performed By: #### 2 4323-8, 96540-1, 83041-1, 3040-3 ####[facility] LABCLIA [id number] [place] [address] [place] ALT With P-5'-P [Catalytic activity/Vol] 14 U/L Normal 10-54 [facility] Comment on above: Order Comment: Speci men Type: BLOOD SPECIMENOrdering Facility: [facility] Address: [address] [place] [address] Performed By: #### 2 4323-8, 35079-4, 44750-1, 3040-3 ####[facility] LABCLIA [id number] [place] [address] [place] [facility] Anion gap [Moles/Vol] 12 mmol/L Normal 8-15 [facility] Comment on above: Order Comment: Speci men Type: BLOOD SPECIMENOrdering Facility: [facility] Address: [address] [place] [address] Performed By: #### 2 4323-8, 07237-2, 39146-4, 3040-3 ####[facility] LABCLIA [id number] [place] [address] [facility] AST With P-5'-P [Catalytic activity/Vol] 20 U/L Normal 14-40 [facility] Comment on above: Order Comment: Speci men Type: BLOOD SPECIMENOrdering Facility: [facility] Address: [address] [place] [address] Performed By: #### 2 4323-8, 12830-2, 78151-2, 3040-3 ####[facility] LABCLIA [id number] [place] [address] [place] Bilirubin [Mass/Vol] 0.4 mg/dL Normal 0.2-1.3 [facility] Comment on above: Order Comment: Speci men Type: BLOOD SPECIMENOrdering Facility: [facility] Address: [address] [place] [address] Performed By: #### 2 4323-8, 60051-4, 33733-5, 3040-3 ####[facility] LABCLIA [id number] [facility] [place] [address] [place] Calcium [Mass/Vol] 9.1 mg/dL Normal 8.5-10.2 [facility] Comment on above: Order Comment: Speci men Type: BLOOD SPECIMENOrdering Facility: [facility] Address: [address] [place] [address] Performed By: #### 2 4323-8, 04491-8, 93959-5, 3040-3 ####[facility] LABCLIA [id number] [place] [address] [place] Chloride [Moles/Vol] 99 mmol/L Normal 98-107 [facility] Comment on above: Order Comment: Speci men Type: BLOOD SPECIMENOrdering Facility: [facility] Address: [address] [place] [address] Performed By: #### 2 4323-8, 49466-0, 25644-1, 3040-3 ####[facility] [employer] LABCLIA [id number] [place] [address] [place] CO2 [Moles/Vol] 27 mmol/L Normal 22-30 [facility] Comment on above: Order Comment: Speci men Type: BLOOD SPECIMENOrdering Facility: [facility] Address: [address] [place] [address] Performed By: #### 2 4323-8, 92883-4, 60821-6, 3040-3 ####[facility] [employer] LABCLIA [id number] [place] [address] [place] Creatinine [Mass/Vol] 1.36 mg/dL High 0.73-1.22 [facility] Comment on above: Order Comment: Speci men Type: BLOOD SPECIMENOrdering Facility: [facility] Address: [address] [place] [address] Performed By: #### 2 4323-8, 68961-7, 98500-5, 3040-3 ####[facility] LABCLIA [id number] [facility] [place] [address] [place] eGFRcr SerPlBld CKD-EPI 2020 60 mL/min/1.73m??? Normal >=60 [facility] Comment on above: Order Comment: Lucas olson Type: BLOOD SPECIMENOrdering Facility: [facility] Address: [address] [place] [address] Result Comment: Delaney mated Glomerular Filtration Rate [...] reflect actual GFR. Performed By: #### 2 4323-8, 55821-5, 89597-5, 3040-3 ####[facility] LABIA [id number] [place] [address] [place] Glucose [Mass/Vol] 176 mg/dL High 74-99 [facility] Comment on above: Order Comment: Lucas olson Type: BLOOD SPECIMENOrdering Facility: [facility] Address: [address] [place] [address] Result Comment: The [place] Diabetes Association (ADA) provides guidance for cutoff [...] Standards of Medical Care in Diabetes 2016, [place] [employer] Association. Diabetes Care. 2016.39(Suppl 1). Performed By: #### 2 4323-8, 30689-4, 84465-7, 3040-3 ####[facility] LABIA [id number] [place] [address] [place] Potassium [Moles/Vol] 4.0 mmol/L Normal 3.7-5.1 [facility] Comment on above: Order Comment: Speci men Type: BLOOD SPECIMENOrdering Facility: [facility] Address: [address] [place] [address] Performed By: #### 2 4323-8, 54243-0, 55731-9, 3040-3 ####[facility] [place] LABCLIA [id number] [place] [address] [place] Protein [Mass/Vol] 6.7 g/dL Normal 6.3-8.0 [facility] Comment on above: Order Comment: Speci men Type: BLOOD SPECIMENOrdering Facility: [facility] Address: [address] [place] [address] Performed By: #### 2 4323-8, 70705-3, 62541-0, 3040-3 ####[facility] LABCLIA [id number] [place] [address] [place] Sodium [Moles/Vol] 138 mmol/L Normal 136-144 [facility] Comment on above: Order Comment: Speci men Type: BLOOD SPECIMENOrdering Facility: [facility] Address: [address] [place] [address] Performed By: #### 2 4323-8, 02497-5, 40035-2, 3040-3 ####[facility] LABCLIA [id number] [place] [address] [place] Urea nitrogen [Mass/Vol] 18 mg/dL Normal 9-24 [facility] Comment on above: Order Comment: Speci men Type: BLOOD SPECIMENOrdering Facility: [facility] Address: [address] [place] [address] Performed By: #### 2 4323-8, 92613-7, 78597-9, 3040-3 ####[facility] [place] LABCLIA [id number] [place] [address] [place] D dimer FEU PPP-mCncon 03-10 Fibrin D-dimer FEU (PPP) [Mass/Vol] 380 ng/mL FEU Normal <500 [facility] Comment on above: Order Comment: Speci men Type: BLOOD SPECIMENOrdering Facility: [facility] Address: [address] [place] [address] Performed By: #### 4 8065-7, 44529-7, 93969-5 ####KIARA ALEJO [id number] [facility] [place] [place] [address] [facility] ED NOTEon 03-10-2025 ED NOTE HNO ID: [id number] Author: MALIKA KLINE, SJ Service: ? Author Type: Registered Nurse Type: ED Notes Filed: 03/11/2025 14:40 Note Text: Patient Call Back Information How are you doing ? better Did we appropriately manage your pain? Yes Did you understand your discharge instructions? Yes Did you get your prescriptions filled? Were you able to make a follow-up appointment with your physician? No Were you comfortable during your stay here? [...] anything else to help you? No Normal [facility] ED NOTE HNO ID: [id number] Author: MANDO RINCON RN Service: Nursing Author Type: Registered Nurse Type: ED Notes Filed: 03/10/2025 21:39 Note Text: Pt verbalizes understanding of discharge instructions. Pt able to ambulate out of ED. Normal [facility] ED NOTE HNO ID: [id number] Author: MANDO RINCON RN Service: Nursing Author Type: Registered Nurse Type: ED Notes Filed: 03/10/2025 16:40 Note Text: Pt reports he was at home and felt like his sugar was low so he ate a candy bar. He stood up, started walking to the kitchen and then went unconscious. He came to soon after, when his got home she called 911. Pt is AANDOx3 upon arrival, c-collar in place, EMS reports BG was 176, c/o neck pain, shoulder, and knee pain. Normal [facility] ED PROV NOTEon 03-10-2025 ED PROV NOTE HNO ID: [id number] Author: CECY HUSSEIN MD Service: Emergency Medicine Author Type: Physician Type: ED Provider Notes Filed: 03/11/2025 08:20 Note Text: ED Provider Note Patient Name: Jame Wallace : 1965 SERVICE DATE: 03/10/25 History Patient presents with: Fall Syncope Patient presents to the emergency department via EMS, for concerns over syncopal episode. Patient is a diabetic, he thought his sugar was low today, he went to the kitchen to eat a candy bar, when he was going to the kitchen, he felt lightheaded dizzy like the room was spinning He know he woke up on the floor. Family later states that patient broke a card table in the kitchen. Patient's complaining of head neck back and right elbow pain with the fall. Patient denies nausea or vomiting. Patient was previously on Eliquis for paroxysmal A-fib but recent diagnosis however he stopped it 3 days ago, for planned right sided kidney stone procedure tomorrow. Patient currently denies chest pain nausea or vomiting Syncope Episode history: Single Duration: unsure, likely short duration per family. 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 Negative for diaphoresis and fever. Respiratory: Negative for shortness of breath. Cardiovascular: Positive for near-syncope. Negative for chest pain. Gastrointestinal: Negative for nausea and vomiting. Neurological: Positive for weakness. Negative for dizziness and headaches. All other systems reviewed and are negative. Physical Exam Vitals [03/10/25 1631] BP Pulse Temp Temp src Resp SpO2 Weight Height 120/65 75 36.1 ?C (97 ?F) -- 16 (!) 92 % (!) 168.7 kg (372 lb) -- Physical Exam Vitals and nursing note reviewed. Constitutional: General: He is not in acute distress. Appearance: Normal appearance. He is not ill-appearing or toxic-appearing. HENT: Head: Normocephalic and atraumatic. Nose: Nose normal. Comments: No epistasis no suggestion of facial trauma Eyes: General: Right eye: No discharge. Left eye: No discharge. Extraocular Movements: Extraocular movements intact. Pupils: Pupils are equal, round, and reactive to light. Cardiovascular: Rate and Rhythm: Normal rate and regular rhythm. Pulses: Normal pulses. Pulmonary: Effort: No respiratory distress. Abdominal: General: There is no distension. Tenderness: There is no abdominal tenderness. There is no right CVA tenderness, left CVA tenderness or guarding. Comments: Soft obese abdomen Musculoskeletal: General: Swelling, tenderness and signs of injury present. Cervical back: No rigidity. Comments: Patient has midline lower lumbar spinal tenderness, no step-offs no deformities no signs of trauma to the back, no ecchymosis and no CVA tenderness, there is no tenderness to the sacroiliac joints, leda prominence of the pelvis Very small superficial abrasion lateral aspect of the right knee, no effusion, limited range of motion however no bony tenderness Right elbow there is some superficial abrasions, some soft tissue swelling, no obvious dislocation good full range of motion specifically for flexion no difficulty with rotation around the elbow for supination pronation of the forearm, strong handgrip strength strong radial pulse Lymphadenopathy: Cervical: No cervical adenopathy. Skin: General: Skin is warm and dry. Neurological: General: No focal deficit present. Mental (more content not included)... Normal [facility] EKGon 03-10-2025 Electrocardiogram Ventricular Rate : 7 2 BPM Atrial Rate : 72 BPM P-R Interval : 132 ms QRS Duration : 142 ms Q-T Interval : 438 ms QTC Calculation(Bazett) : 479 ms Calculated P Sandy : 5 degrees Calculated R Sandy : -15 degrees Calculated T Sandy : 1 degrees NORMAL SINUS RHYTHM RIGHT BUNDLE BRANCH BLOCK consistent with previous tracing ABNORMAL ECG WHEN COMPARED WITH ECG OF 18-Feb-2025 16:46, T WAVE INVERSION NOW EVIDENT IN ANTERIOR LEADS Confirmed by CECY HUSSEIN MD ([id number]) on 03/10/2025 7:45:25 PM NAME : JAME WALLACE PID : [id number] : 1965 Gender : Male Race : ORD : Procedure Date : Mar 10 2025 16:39:04 Edit Date : Mar 10 2025 19:45:28 Diagnosis: NORMAL SINUS RHYTHM RIGHT BUNDLE BRANCH BLOCK consistent with previous tracing ABNORMAL ECG WHEN COMPARED WITH ECG OF 18-Feb-2025 16:46, T WAVE INVERSION NOW EVIDENT IN ANTERIOR LEADS Confirmed by CECY HUSSEIN MD ([id number]) on 03/10/2025 7:45:25 PM Test Reason : Location : 150 : [facility] Overread By : CECY HUSSEIN MD Edited By : CECY HUSSEIN MD Referred By : , Acquired by : SANTIAGO COPPOLA Normal [facility] Fibrin D-dimer FEU (PPP) [Ma ss/Vol]on 03-10-2025 D DIMER AGE-RELATED CUTOFF 580 ng/mL FEU Normal [facility] Comment on above: Order Comment: Speci men Type: BLOOD SPECIMENOrdering Facility: [facility] Address: [address] [place] [address] Performed By: #### 4 8065-7, 09810-9, 49714-3 ####[facility] LABCLIA [id number] [place] [address] [place] HIGH SENSITIVITY TROPONIN T (INITIAL)on 03-10-2025 Troponin T.cardiac High sensitivity method [Mass/Vol] 19 ng/L High <12 [facility] Comment on above: Order Comment: Speci men Type: BLOOD SPECIMENOrdering Facility: [facility] Address: [address] [place] [address] Performed By: #### L [id number] ####[facility] LABCLIA [id number] [place] [address] [place] [facility] HIGH SENSITIVITY TROPONIN T (SECOND)on 03-10-2025 Troponin T.cardiac High sensitivity method [Mass/Vol] 19 ng/L High <12 [facility] Comment on above: Order Comment: Speci men Type: BLOOD SPECIMENOrdering Facility: [facility] Address: [address] [place] [address] Performed By: #### L [id number] ####[facility] LABCLIA [id number] [place] [address] [facility] Lipase SerPl-cCncon 03-10-20 25 Lipase [Catalytic activity/Vol] 81 U/L High 16-61 [facility] Comment on above: Order Comment: Speci men Type: BLOOD SPECIMENOrdering Facility: [facility] Address: [address] [place] [address] Performed By: #### 2 4323-8, 68763-9, 50417-2, 3040-3 ####[facility] LABCLIA [id number] [place] [address] [place] Magnesium SerPl-mCncon 03-10 Magnesium [Mass/Vol] 1.6 mg/dL Low 1.7-2.3 [facility] Comment on above: Order Comment: Speci men Type: BLOOD SPECIMENOrdering Facility: [facility] Address: [address] [place] [address] Performed By: #### 2 4323-8, 06547-8, 33209-6, 3040-3 ####[facility] LABCLIA [id number] [place] [address] [place] NT-proBNP SerPl-mCncon 03-10 Natriuretic peptide.B prohormone N-Terminal [Mass/Vol] 649 pg/mL High <125 [facility] Comment on above: Order Comment: Lucas olson Type: BLOOD SPECIMENOrdering Facility: [facility] Address: [address] [place] [address] Performed By: #### 2 4323-8, 30078-1, 02650-1, 3040-3 ####[facility] [place] LABCLIA [id number] [place] [id number] [facility] PT panel Coag (PPP)on 2024 INR Coag (PPP) [Relative time] 1.0 {INR} Normal 0.9-1.3 [facility] Comment on above: Order Comment: Lucas olson Type: BLOOD SPECIMENOrdering Facility: [facility] Address: [address] [place] [address] Result Comment: Bridgett min K Antagonist (VKA) Therapeutic Range: INR 2 to 3 (Target INR of 2.5) Note: For patients treated with VKA drugs, such as warfarin, the [place] [employer] 2012 Guideline recommends a therapeutic INR range of 2 to 3 (target INR of 2.5). This recommendation includes high-risk patients with antiphospholipid syndrome with previous arterial or venous thromboembolism, current-generation mechanical or bioprosthetic aortic heart valve replacement. Note: Patients with mechanical aortic valve replacement and additional risk factors for thromboembolic events (atrial fibrillation, previous thromboembolism, LV dysfunction, hypercoagulable conditions) or an older generation mechanical AVR (i.e., ball in-Cage) or any mechanical MVR should have a INR therapeutic range of 2.5 to 3.5 (target INR of 3). Laurie GH, et al. Chest 2012, 141:7S-47S Nelson RA, et al. JACC 2017, 70: 252-289 Performed By: #### 4 8065-7, 74782-7, 52050-3 ####[facility] [place] LABCLIA [id number] [place] [address] [place] PT Coag (PPP) [Time] 10.8 s Normal <13.1 [facility] Comment on above: Order Comment: Speci men Type: BLOOD SPECIMENOrdering Facility: [facility] Address: [facility] [place] [address] Performed By: #### 4 8065-7, 77806-8, 54308-1 ####[facility] [place]INA ALEJO [id number] [place], [place] [id number] [place] [address] [place] XR CHEST 1V FRONTALon 2024 XR CHEST 1V FRONTAL * * *Final Report* * * DATE OF EXAM: Mar 10 2025 5:52PM LDX 5290 - XR CHEST 1V FRONTAL / PROCEDURE REASON: Other * * * * Physician Interpretation * * * * EXAMINATION: CHEST RADIOGRAPH (SINGLE VIEW AP OR PA) CLINICAL HISTORY: Other, syncope MQ: XC1_5 Comparison: 10/03/2021. RESULT: Lines, tubes, and devices: None. Lungs and pleura: There is persistent mild elevation of the right hemidiaphragm. No consolidation. No lung mass. No pleural effusion. Cardiomediastinal silhouette: Normal cardiomediastinal silhouette. Other: The visualized bony thorax appears unremarkable. IMPRESSION: Stable exam with no definite acute radiographic abnormality. Virtualization Architect: PSCB Transcribe Date/Time: Mar 10 2025 6:00P Dictated by : RENA GREGORY MD This examination was interpreted and the report reviewed and electronically signed by: RENA GREGORY MD on Mar 10 2025 6:11PM EST [id number] Normal [facility] XR ELBOW 3V AP/LAT/OTHER RTo n 03-10-2025 XR ELBOW 3V AP/LAT/OTHER RT * * *Final Report* * * DATE OF EXAM: Mar 10 2025 5:52PM LDX 5325 - XR ELBOW 3V AP/LAT/OTHER RT / PROCEDURE REASON: Elbow trauma, no prior imaging * * * * Physician Interpretation * * * * EXAMINATION: XR ELBOW 3V AP/LAT/OTHER RT HISTORY: Pt. felt like his sugar was low so he ate a candy bar. He stood up, started walking to the kitchen and then went unconscious. Elbow trauma, no prior imaging. TECHNIQUE: XR ELBOW 3V AP/LAT/OTHER RT Laterality: RIGHT Number of different views (projections): 4 M: XB_1 COMPARISON: Radiograph July 2014 RESULT: No evidence of fracture or subluxation. Mild enthesopathy lateral condyle. There is possible elevation of the posterior fat pad. This may represent a joint effusion. No other significant abnormality. IMPRESSION: Possible joint effusion. No acute osseous abnormality. If there are ongoing clinical concerns for fracture, consider follow-up radiographs. Virtualization Architect: PSCB Transcribe Date/Time: Mar 10 2025 6:23P Dictated by : CRISTHIAN SRINIVASAN MD This examination was interpreted and the report reviewed and electronically signed by: CRISTHIAN SRINIVASAN MD on Mar 10 2025 6:24PM EST [id number] Normal [facility] aPTT PPPon 03-10-2025 aPTT Coag (PPP) [Time] 28.2 s Normal 23.0-32.4 [facility] Comment on above: Order Comment: Speci men Type: BLOOD SPECIMENOrdering Facility: [facility] Address: [address] [place] [address] Performed By: #### 4 8065-7, 82853-9, 90647-2 ####[facility] [id number] [place] [address] [facility] MR/PATRonny 03-09-2025 [facility] Department [address] [place] [address] PAT - Anesthesia 03/09/25 1315 MR#: [id number] Acct: [id number] Name: JAME WALLACE A Rep #: [id number] : 1965 59 From: Chapo Turcios MD PCP: DAVID Marina Status:PRE [facility] Y Race: C Location: [facility] Pre-Assessment Diagnosis/Proposed Procedure Planned Operative Procedure(s): (R) Cysto,Ureteroscopy,Retro,La ser,Stent Anesthesia History Anesthesia History - biotechnician: Anesthesia History - biotechnician Hx Hospitalization Yes: 02/2025 CHF 03/06/25 14:04 Any Problems With Anesthesia No 03/06/25 14:04 Cholinesterase deficiency No 03/06/25 14:04 You/Your Family Experience No 03/06/25 14:04 fever (hyperthermia) with Relationship Recent Exposure to Contagious Disease Does patient have nerve No 03/06/25 14:04 stimulator Patient instructed to have device shut off --Does patient have Pacemaker or ICD? When Was Last Pacemaker Check QUESTION #4 FULL TEXT: You/Your Family Experience fever (hyperthermia) with Anesthesia Last Oral Intake Last Oral intake: Last Oral Intake NPO since Meds taken in AM with sips of water? Meds patient instructed to take am of surgery PONV PONV - biotechnician: PONV - biotechnician Female No 03/06/25 14:04 HX of Motion Sickness No 03/06/25 14:04 HX of N/V After Surgery No 03/06/25 14:04 Non-Smoker Yes 03/06/25 14:04 Duration of Surgery greater Yes 03/06/25 14:04 than 60 minutes Number of Risk Factors 2 03/06/25 14:04 PONV Score Moderate Risk 03/06/25 14:04 Height Weight Height Weight: Anesthesia: Height Weight Height 6 ft 11/27/24 16:03 Respiratory Assessment Respiratory Assessment - biotechnician: Respiratory Tract Infection Hx - biotechnician Hx Respiratory Tract Infection No 03/06/25 14:04 STOP Sleep Apnea STOP Sleep Apnea - biotechnician: STOP Sleep Apnea - biotechnician Hx Hypertension Yes: PER PT, CONTROLLED ON [...] Tobacco Use History Tobacco Use History - biotechnician: Tobacco Use History - biotechnician Tobacco Use Smoking Status Never smoker 03/06/25 14:04 Hx Tobacco Use No 03/06/25 14:04 Years Smoking Packs Smoked per Day Smoking Cessation Date was within the last 15 years Hx Smoking Cessation Date Hx Smoking Cessation Counseling Hematologic Medial History Hematologic Hx - biotechnician: Hematologic Medical Hx - gold marker Hx of Blood Transfusion No 03/06/25 14:04 Hx of Transfusion in last 3 No 03/06/25 14:04 Months Date of Last Transfusion (if within last 3 months) Ever experience any problems No 03/06/25 14:04 with transfusion(s)? Specify any problems Hx of Preganancy in last 3 N/A 03/06/25 14:04 Months Nurse Filling Out Transfusion DENNISE 03/06/25 14:04 Questions: Date: 03/06/25 03/06/25 14:04 Time: 14:07 03/06/25 14:04 Patient unable to answer at this time (ie. confused, unrespo /Reproduction History /Reproductive History - biotechnician: /Reproductive Hx- biotechnician Hx Now No 03/06/25 14:04 Gestational Age (in weeks): EDC: Hx Hx [facility] (Updated 03/06/25 @ 14:30 by Paty Sanchez) Wears glasses Vertigo History of MRSA infection [...] due to secondary diabetes mellitus Home Medications ???Medication ???Instructions ???Recorded ???Last Taken ???Type aspirin 81 mg tablet,delayed 81 mg PO DAILY 03/02/18 Unknown Hi story release (Adult Low Dose As (more content not included)... Normal [facility] AMB CARD Physician Progress Noteon 02-27-2025 AMB CARD Physician Progress Note JAME WALLACE :1965 Registration Date:02/27/2025 Assessment/Plan This Visit Diagnosis 1. (HFpEF) heart failure with preserved ejection fraction/(I50.30: Unspecified diastolic (congestive) heart failure) - Mild LE edema, improved compared to pre-admission. Denies shortness of breath - Echo 02/19/25 showing normal LVEF - Continue furosemide 40 mg daily and metoprolol 50 mg BID - Advised patient to wear compression stockings and follow low sodium diet Ordered: AMB Follow - Up Appt Amb, 02/27/2025 15:48:00 EDT, 3 months 2. Atrial fibrillation/(I48.91: Unspecified atrial fibrillation) - Clinically in sinus rhythm. Continue metoprolol 50 mg BID - Anticoagulation with Eliquis 5 mg BID - Will arrange for sleep study Ordered: AMB Follow - Up Appt Amb, 02/27/2025 15:48:00 EDT, 3 months 3. Hypertensive disorder/(I10: Essential (primary) hypertension) - Blood pressure is well controlled - Continue current medications - Encouraged patient to monitor blood pressure at home Ordered: AMB Follow - Up Appt Amb, 02/27/2025 15:48:00 EDT, 3 months 4. Hyperlipidemia/(E78.5: Hyperlipidemia, unspecified) - Continue atorvastatin 40 mg daily Ordered: AMB Follow - Up Appt [facility], 02/27/2025 15:48:00 EDT, 3 months Chief Complaint F/U History of Present Illness 59 yo male with a PMHx of T2DM, HTN, HLD, and hypothyroidism presents for a hospital follow-up He presented to ED with shortness of breath and leg swelling. Treated for acute HFpEF. He starting having episodes of afib RVR during admission. He was unaware of arrhythmia. Metoprolol was increased. Anticoagulation was not initiated due to plan for ESWL 02/23/25 due to large right ureteral stone. Procedure canceled due to an insurance issue. Patient started Eliquis 5 mg daily. He is seeing another urologist at [facility] soon Denies hematuria with anticoagulation Denies chest pain or shortness of breath. Lower extremity edema has improved. Having some right flank pain Echo 02/19/25: LVEF 55-60%, mildly dilated LA, mild-moderate AR, mild-moderate MR Medication Reconciliation What How Much When Instructions Unchanged apixaban (Eliquis 5 mg oral tablet) 1 Tabs Oral TWICE A DAY Ordering Physician: BONY HOFFMAN MD Unchanged atorvastatin (Lipitor 40 mg oral tablet) 1 Tabs Oral DAILY Unchanged buPROPion (Wellbutrin SR 100 mg/ 12 hours oral tablet, extended release) 1 Tabs Oral TWICE A DAY Unchanged celecoxib (CeleBREX 200 mg oral capsule) 1 Capsules Oral TWICE A DAY Unchanged DULoxetine (Cymbalta 60 mg oral delayed release capsule) 1 Capsules Oral DAILY Special Instructions: (do not crush or chew) Unchanged furosemide (furosemide 40 mg oral tablet) 1 Tabs Oral DAILY BEFORE BREAKFAST Ordering Physician: BONY HOFFMAN MD Unchanged gabapentin (Neurontin 400 mg oral capsule) 1 Capsules Oral THREE TIMES A DAY Unchanged glimepiride (Amaryl 4 mg oral tablet) 1 Tabs Oral DAILY Unchanged levothyroxine (Synthroid 75 mcg (0.075 mg) oral tablet) 1 Tabs Oral DAILY Unchanged magnesium gluconate (magnesium gluconate 250 mg oral tablet) 1 Tabs Oral DAILY Unchanged metFORMIN = Glucophage (metFORMIN 850 mg oral tablet) 1 [...] and o (more content not included)... 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 I can forward to the PSS. Normal [facility] AMPA 6 Clicks Basic Mobilit yon 02-22-2025 AMPA 6 Clicks Basic Mobility AM-PAC 6 Clicks [...] Moreno RN - 02/22/2025 12:20 EDT Normal [facility] Comment on above: Order Comment: Order placed by discern rule ADMIT_MOBILITY_SCREEN_ORD Inpatient Patient Summaryon 02-22-2025 Inpatient Patient Summary [facility] Discharge Instructions [address] [place] [address] (Patient Copy) Name: JAME WALLACE : 1965 Diagnosis: Allergies: No Known Allergies Registration Date: 02/19/25 Current Date Time: 02/22/2025 14:45:03 Address: [facility] [address] Phone: [phone] Primary Care Provider: Name: JENNY LIVE Phone: [phone] Thank you for choosing [facility] for your care. You are very important to us. Our goal is to demonstrate our high quality medical care and provide you with a very good patient experience. You may receive a survey about our service. Please take the time to complete the survey and return it so we can continue to enhance our service. Thank you again for allowing [facility] to care for your medical needs. If [...] Follow Ups: With: Address: When: [place] [address], [address] [place] [address] Business (1) 02/27/2025 3:30 PM With: Address: When: Heart Failure Education ([facility]) [address], [place] [address] Business (1) 02/24/2025 1:00 PM Comments: Please CALL [phone] if unable to attend. IF PATIENT IS DISCHARGE TO A NURSING FACILITY OR [facility] CARE PLEASE DO NOT ATTEND. If you [...] labels on (more content not included)... [facility] LaboratoryOrdered By: Whitney Perez telewec on 02-22-2025 Glucose [Mass/Vol] 125 mg/dL High 72 - 100 mg/dL POC Chem Glucose [Mass/Vol] 159 mg/dL High 72 - 100 mg/dL POC Chem LaboratoryOrdered By: Reddy Eddy on 02-22-2025 Glucose [Mass/Vol] 123 mg/dL High 72 - 100 mg/dL POC Chem POC Glucoseon 02-22-2025 Glucose [Mass/Vol] 125 mg/dL High 72-100 [facility] Comment on above: Performed By: #### 1 [id number] #### [facility] Laboratory Services [address] [place] [address] [phone] Addiction Nurse: Shni Flood MD Glucose [Mass/Vol] 159 mg/dL High 72-100 [facility] Comment on above: Performed By: #### 1 [id number] #### [facility] Laboratory Services [address] [place] [address] 98912 Addiction Nurse: Shin Flood MD Glucose [Mass/Vol] 123 mg/dL High 72-100 [facility] Comment on above: Performed By: #### 1 [id number] #### [facility] Laboratory Services [address] [place] [address] 85525 Addiction Nurse: Shin Flodo MD Progress Note-Physicianon Progress Note-Physician JAME WALLACE [...] Inpatient acetaminophen, 650 mg= 2 tabs, ORAL, [id number], PRN acetaminophen, 650 mg= 2 tabs, ORAL, [id number], PRN acetaminophen, 650 mg= 2 tabs, ORAL, [id number], PRN acetaminophen-oxycodone(brianda taminophen-oxycodone 325 mg-5 mg oral tablet = Percocet), 1 tabs, ORAL, [id number], PRN apixaban(Eliquis), 5 mg= 1 tabs, ORAL, ONCE aspirin(Aspirin Low Dose), 81 mg= 1 tabs, ORAL, DAILY WITH BREAKFAST atorvastatin(Lipitor), 40 mg= 1 tabs, ORAL, DAILY buPROPion(Wellbutrin SR, Zyban (buPROPion SR)), 100 mg= 1 tabs, ORAL, BID celecoxib(CeleBREX), 200 mg= 1 caps, ORAL, BID ciprofloxacin = Cipro, 500 mg= 1 tabs, ORAL, [id number] digoxin, 0.25 mg= 1 mL, IV Push, [...] BREAKFAST melatonin, 5 mg= 1 tabs, ORAL, [id number], PRN metFORMIN = Glucophage, 850 mg= 1 tabs, ORAL, BIDWM metoprolol(Lopressor = Metoprolol Tartrate), 5 mg= 5 mL, IV Push, [id number], PRN metoprolol(Lopressor = Metoprolol Tartrate), 50 mg= 1 tabs, ORAL, BID mirtazapine(Remeron), 7.5 mg= 1 tabs, ORAL, QHS multivitamin, 1 tabs, ORAL, DAILY naloxone = Narcan, 0.4 mg= 1 mL, IV Push, PRN, PRN ondansetron(ondansetron 4 mg oral tablet, disintegrating = Zofran), 4 mg= 1 tabs, ORAL, [id number], PRN tamsulosin(Flomax), 0.4 mg= 1 caps, ORAL, [...] Candie co (more content not included)... Normal [facility] Progress Note-Physician JAME WALLACE :1965 Registration Date:02/19/2025 [...] (FEB 22:) Resp Rate 18 br/min (FEB 22:) SBP 118 mmHg (FEB 22:) DBP 76 [...] CXR without infiltrate or effusion Labs Normal [facility] 6 Clicks Basic Mobilit yon 02-21-2025 [facility] 6 Clicks Basic Mobility AM-PAC 6 Clicks Basic Mobility Entered On: 02/21/2025 12:59 EDT Performed On: 02/21/2025 8:30 EDT by Marizol Moreno RN -PAC 6 clicks Basic Mobility How [...] Moreno RN - 02/21/2025 12:59 EDT Normal [facility] Comment on above: Order Comment: Order placed by discern rule ADMIT_MOBILITY_SCREEN_ORD LaboratoryOrdered By: Verito Pires on 02-21-2025 Platelets (Bld) [#/Vol] 212 10*3/uL Normal 150 - 450 x10^3/uL Dx 1600 MPL PLATELET ONLYon 02-21-2025 Platelet 212 x10 Normal 150-450 [facility] Comment on above: Order Comment: PLT c ount on Day 2 after initiation of Heparin or Lovenox, Notify Physician if PLT Count less than 100,000 Performed By: #### 1 [id number] #### [facility] Laboratory Services [address] [place] [address] [phone] Addiction Nurse: Shin Flood MD POC Glucoseon 02-21-2025 Glucose [Mass/Vol] 161 mg/dL High 72-100 [facility] Comment on above: Performed By: #### 1 [id number] #### [facility] Laboratory Services [address] [place] [address] 75017 Addiction Nurse: Shin Flood MD Glucose [Mass/Vol] 81 mg/dL Normal [address] Comment on above: Performed By: #### 1 [id number] #### [facility] Laboratory Services [address] [place] [address] 01111 Addiction Nurse: Shin Flood MD Glucose [Mass/Vol] 239 mg/dL High 72100 [facility] Comment on above: Performed By: #### 1 [id number] #### [facility] Laboratory Services [address] [place] [address] 23874 Addiction Nurse: Shin Flood MD Glucose [Mass/Vol] 114 mg/dL High 72100 [facility] Comment on above: Performed By: #### 1 [id number] #### [facility] Laboratory Services [address] [place] [address] 86626 Addiction Nurse: Shin Flood MD Progress Note-Physicianon Progress Note-Physician [...] Inpatient acetaminophen, 650 mg= 2 tabs, ORAL, [id number], PRN acetaminophen, 650 mg= 2 tabs, ORAL, [id number], PRN acetaminophen, 650 mg= 2 tabs, ORAL, [id number], PRN acetaminophen-oxycodone(brianda taminophen-oxycodone 325 mg-5 mg oral tablet = Percocet), 1 tabs, ORAL, [id number], PRN apixaban(Eliquis), 5 mg= 1 tabs, ORAL, ONCE aspirin(Aspirin Low Dose), 81 mg= 1 tabs, ORAL, DAILY WITH BREAKFAST atorvastatin(Lipitor), 40 mg= 1 tabs, ORAL, DAILY buPROPion(Wellbutrin SR, Zyban (buPROPion SR)), 100 mg= 1 tabs, ORAL, BID celecoxib(CeleBREX), 200 mg= 1 caps, ORAL, BID ciprofloxacin = Cipro, 500 mg= 1 tabs, ORAL, [id number] digoxin, 0.25 mg= 1 mL, IV Push, [...] BREAKFAST melatonin, 5 mg= 1 tabs, ORAL, [id number], PRN metFORMIN = Glucophage, 850 mg= 1 tabs, ORAL, BIDWM metoprolol(Lopressor = Metoprolol Tartrate), 5 mg= 5 mL, IV Push, [id number], PRN metoprolol(Lopressor = Metoprolol Tartrate), 50 mg= 1 tabs, ORAL, BID mirtazapine(Remeron), 7.5 mg= 1 tabs, ORAL, QHS multivitamin, 1 tabs, ORAL, DAILY naloxone = Narcan, 0.4 mg= 1 mL, IV Push, PRN, PRN ondansetron(ondansetron 4 mg oral tablet, disintegrating = Zofran), 4 mg= 1 tabs, ORAL, [id number], PRN tamsulosin(Flomax), 0.4 mg= 1 caps, ORAL, [...] and continuing (more content not included)... Normal [facility] Progress Note-Physician JAME WALLACE :1965 Registration Date:02/19/2025 [...] 21 12:00) Resp Rate 16 br/min (FEB 21:) SBP H 145 mmHg (FEB 21:16) DBP H 86 mmHg (FEB 21:16) General: Stable, with no apparent distress. Neck: JVP 7cm @ 45deg. No carotid bruits. CV: RRR no MRG; Normal S1S2; non-sustained, non-displaced PMI. Lungs: CTAx2. Abdomen: Benign. Extremities: No clubbing, cyanosis, or edema. Intact peripheral pulses. I/O's and DAILY WEIGHTS Default ECG/Telemetry: NSR with no acute ischemic changes Radiology: CXR without infiltrate or effusion Labs Normal [facility] 6 Clicks Basic Mobilit yon 02-20-2025 [facility] 6 Clicks Basic Mobility AM-PAC 6 Clicks [...] Wiggins RN - 02/20/2025 8:45 EDT Normal [facility] Comment on above: Order Comment: Order placed by discern rule ADMIT_MOBILITY_SCREEN_ORD AUTO DIFFon 02-20-2025 Baso Count 0.07 x1000 Normal 0.00-0.20 [facility] Comment on above: Performed By: #### 1 [id number] #### [facility] Laboratory Services [address] [place] [address] 40479 Addiction Nurse: Shin Flood MD Basos % 1.0 % Normal [facility] Comment on above: Performed By: #### 1 [id number] #### [facility] Laboratory Services [address] [place] [address] 76680 Addiction Nurse: Shin Flood MD Eos Count 0.21 x1000 Normal 0.00-0.50 [facility] Comment on above: Performed By: #### 1 [id number] #### [facility] Laboratory Services [address] [place] [address] 07171 Addiction Nurse: Shin Flood MD Eosinophils/100 WBC (Bld) 2.7 % Normal [facility] Comment on above: Performed By: #### 1 [id number] #### [facility] Laboratory Services [address] [place] [address] 89823 Addiction Nurse: Shin Flood MD Lymph Count 1.02 x1000 Low 1.20-4.80 [facility] Comment on above: Performed By: #### 1 [id number] #### [facility] Laboratory Services [address] [place] [address] 52870 Addiction Nurse: Shin Flood MD Lymphocytes/100 WBC (Bld) 13.0 % Normal [facility] Comment on above: Performed By: #### 1 [id number] #### [facility] Laboratory Services [address] [place] [address] 79221 Addiction Nurse: Shin Flood MD Webb Count 0.80 x1000 Normal 0.10-1.00 [facility] Comment on above: Performed By: #### 1 [id number] #### [facility] Laboratory Services [address] [place] [address] 65337 Addiction Nurse: Shin Flood MD Monocytes/100 WBC (Bld) 10.3 % Normal [facility] Comment on above: Performed By: #### 1 [id number] #### [facility] Laboratory Services [address] [place] [address] 59997 Addiction Nurse: Shin Flood MD Neutrophil Count (ANC) 5.70 x1000 Normal 1.40-8.80 [facility] Comment on above: Performed By: #### 1 [id number] #### [facility] Laboratory Services [address] [place] [address] 71779 Addiction Nurse: Shin Flood MD Neutrophils/100 WBC (Bld) 73.0 % Normal [facility] Comment on above: Performed By: #### 1 [id number] #### [facility] Laboratory Services [address] [place] [address] 22222 Addiction Nurse: Shin Flood MD BASICMETAon 02-20-2025 Calcium [Mass/Vol] 9.1 mg/dL Normal 8.7-10.4 [facility] Comment on above: Performed By: #### 1 [id number] #### [facility] Laboratory Services [address] [place] [address] 41303 Addiction Nurse: Shin Flood MD Chloride [Moles/Vol] 96 mmol/L Low 98-107 [facility] Comment on above: Performed By: #### 1 [id number] #### [facility] Laboratory Services [address] [place] [address] Addiction Nurse: Shin Flood MD CO2 [Moles/Vol] 40.0 mmol/L High 20.0-31.0 [facility] Comment on above: Performed By: #### 1 [id number] #### [facility] Laboratory Services [address] [place] [address] 94476 Addiction Nurse: Shin Flood MD Creatinine [Mass/Vol] 1.2 mg/dL High 0.6-1.1 [facility] Comment on above: Performed By: #### 1 [id number] #### [facility] Laboratory Services [address] [place] [address] 61201 Addiction Nurse: Shin Flood MD GFR AA >60 Normal [facility] Comment on above: Result Comment: Afri can Ukrainian GFR Calc Medical judgement is necessary to [...] MDRD GFR equation Performed By: #### 1 [id number] #### [facility] Laboratory Services [address] [place] [address] 87971 Addiction Nurse: Shin Flood MD Glomerular Filtration Rate >60 Normal [facility] Comment on above: Result Comment: Non- GFR [...] MDRD GFR equation Performed By: #### 1 [id number] #### [facility] Laboratory Services [address] [place] [address] 15374 Addiction Nurse: Shin Flood MD Glucose [Mass/Vol] 207 mg/dL High 74-106 [facility] Comment on above: Performed By: #### 1 [id number] #### [facility] Laboratory Services [address] [place] [address] 36286 Addiction Nurse: Shin Flood MD Osmolality [Osmolality] 290 mosm/kg Normal 275-295 [facility] Comment on above: Performed By: #### 1 [id number] #### [facility] Laboratory Services [address] [place] [address] 42945 Addiction Nurse: Shin Flood MD Potassium [Moles/Vol] 4.3 mmol/L Normal 3.5-5.1 [facility] Comment on above: Performed By: #### 1 [id number] #### [facility] Laboratory Services [address] [place] [address] 10679 Addiction Nurse: Shin Flood MD Sodium [Moles/Vol] 141 mmol/L Normal 135-145 [facility] Comment on above: Performed By: #### 1 [id number] #### [facility] Laboratory Services [address] [place] [address] 71560 Addiction Nurse: Shin Flood MD Urea nitrogen [Mass/Vol] 19 mg/dL Normal 9-23 [facility] Comment on above: Result Comment: - Ve nipuncture should occur prior to N-Acetyl Cysteine (NAC) or Metamizole (Sulpyrine) administration due to the potential for falsely depressed results. - Blood samples from some patients with monoclonal gammopathies may produce falsely elevated results Performed By: #### 1 [id number] #### [facility] Laboratory Services [address] [place] [address] 34808 Addiction Nurse: Shin Flood MD Urea nitrogen/Creatinine [Mass ratio] 15.8 mg/mg Normal [facility] Comment on above: Performed By: #### 1 [id number] #### [facility] Laboratory Services [address] [place] [address] 82240 Addiction Nurse: Shin Flood MD HEMOon 02-20-2025 DIFF? No Normal [facility] Comment on above: Performed By: #### 1 [id number] #### [facility] Laboratory Services [address] [place] [address] 08879 Addiction Nurse: Shin lFood MD Erythrocyte distribution width (RBC) [Ratio] 13.9 % Normal 11.5-14.5 [facility] Comment on above: Performed By: #### 1 [id number] #### [facility] Laboratory Services [address] [place] [address] 36042 Addiction Nurse: Shin Flood MD Hematocrit (Bld) [Volume fraction] 38.8 % Low 41.0-52.0 [facility] Comment on above: Performed By: #### 1 [id number] #### [facility] Laboratory [place] [phone] Addiction Nurse: Shin Flood MD Hemoglobin (Bld) [Mass/Vol] 13.1 g/dL Low 13.5-17.5 [facility] Comment on above: Performed By: #### 1 [id number] #### [facility] Laboratory Services [address] [place] [address] 37171 Addiction Nurse: Shin Flood MD Instr WBC 7.8 Normal [facility] Comment on above: Performed By: #### 1 [id number] #### [facility] Laboratory Services [address] [place] [address] [phone] Addiction Nurse: Shin Flood MD MCH (RBC) [Entitic mass] 31.5 pg Normal 27.0-34.0 [facility] Comment on above: Performed By: #### 1 [id number] #### [facility] Laboratory Services [address] [place] [address] 99168 Addiction Nurse: Shin Flood MD MCHC (RBC) [Mass/Vol] 33.8 g/dL Normal 32.0-37.0 [facility] Comment on above: Performed By: #### 1 [id number] #### [facility] Laboratory Services [address] [place] [address] 38239 Addiction Nurse: Shin Flood MD MCV (RBC) [Entitic vol] 93.1 fL Normal 80.0-100.0 [facility] Comment on above: Performed By: #### 1 [id number] #### [facility] Laboratory Services [address] [place] [address] 26777 Addiction Nurse: Shin Flood MD Nucleated RBC 0 /100WBC Normal [facility] Comment on above: Performed By: #### 1 [id number] #### [facility] Laboratory Services [address] [place] [address] 34043 Addiction Nurse: Shin Flood MD Platelet 198 x10 Normal 150-450 [facility] Comment on above: Performed By: #### 1 [id number] #### [facility] Laboratory Services [address] [place] [address] 74984 Addiction Nurse: Shin Flood MD Platelet mean volume (Bld) [Entitic vol] 9.6 fL Normal 7.4-10.4 [facility] Comment on above: Performed By: #### 1 [id number] #### [facility] Laboratory Services [address] [place] [address] 27429 Addiction Nurse: Shin Flood MD RBC 4.17 x10 Low 4.70-6.10 [facility] Comment on above: Result Comment: Note : RBC morphology is normal unless otherwise stated. Evaluation performed only if differential is requested. Performed By: #### 1 [id number] #### [facility] Laboratory Services [address] [place] [address] 17037 Addiction Nurse: Shin Flood MD WBC 7.8 x10 Normal 4.5-11.0 [facility] Comment on above: Performed By: #### 1 [id number] #### [facility] Laboratory Services [address] [place] [address] 53674 Addiction Nurse: Shin Flood MD LaboratoryOrdered By: SYSTEM SYSTEM on 02-20-2025 Estimated Creatinine Clearance 78.01 mL/min [facility] Work Phone: Basophils (Bld) [#/Vol] 0.07 10*3/uL [...] Comment on above: Result Comment: Afri can Ukrainian GFR Calc Interpretive Data: Medical judgement is [...] 207 mg/dL High 74 - 106 mg/dL SW ADM RES Hematocrit (Bld) [Volume fraction] 38.8 % Low 41.0 - 52.0 % DxH 1600 MPL Hemoglobin (Bld) [Mass/Vol] 13.1 g/dL Low 13.5 - 17.5 g/dL SW Dx 1600 MPL Lymphocytes (Bld) [#/Vol] 1.02 10*3/uL Low 1.20 - 4.80 x1000 Dx 1600 MPL Lymphocytes/100 WBC (Bld) 13.0 % Invalid Interpretation Code Dx 1600 MPL MCH (RBC) [Entitic mass] 31.5 pg Normal 27.0 - 34.0 pg SW Dx 1600 MPL MCHC (RBC) [Mass/Vol] 33.8 g/dL Normal 32.0 - 37.0 g/dL Dx 1600 MPL MCV (RBC) [Entitic vol] 93.1 fL Normal 80.0 - 100.0 fL Dx 1600 MPL Monocytes (Bld) [#/Vol] 0.80 10*3/uL Normal 0.10 - 1.00 x1000 Dx 1600 MPL Monocytes/100 WBC (Bld) 10.3 % Invalid Interpretation Code Dx 1600 MPL Neutrophils (Bld) [#/Vol] 5.70 10*3/uL Normal 1.40 - 8.80 x1000 Dx 1600 MPL Neutrophils/100 WBC (Bld) 73.0 % Invalid Interpretation Code Dx 1600 MPL Nucleated RBC Auto Ql (Bld) 0 /100WBC Invalid Interpretation Code Dx 1600 MPL Osmolality Calc [Osmolality] 290 mOsm/kg Normal 275 - 295 mOsm/kg ADM RES Platelet mean volume (Bld) [Entitic vol] 9.6 fL Normal 7.4 - 10.4 fL SW DxH 1600 MPL Platelets (Bld) [#/Vol] 198 10*3/uL Normal 150 - 450 x10^3/uL SW Dx 1600 MPL Potassium [Moles/Vol] 4.3 mmol/L Normal 3.5 - 5.1 mmol/L SW ADM RES RBC (Bld) [#/Vol] 4.17 10*6/uL Low 4.70 - 6.10 x10^6/uL DxH 1600 MPL Comment on above: Interpretive Data: N ote: RBC morphology is normal unless otherwise stated. Evaluation performed only if differential is requested. Sodium [Moles/Vol] 141 mmol/L Normal 135 - 145 mmol/L ADM RES Urea nitrogen [Mass/Vol] 19 mg/dL Normal 9 - 23 mg/dL ADM [...] Glucoseon 02-20-2025 Glucose [Mass/Vol] 208 mg/dL High [address] [place] [address] Comment on above: Performed By: #### 1 [id number] #### [facility] Laboratory Services [address] [place], [place] [phone] Addiction Nurse: Shin Flood MD Glucose [Mass/Vol] 152 mg/dL High [address] [place] [address] Comment on above: Performed By: #### 1 [id number] #### [facility] Laboratory Services [address] [place], [place] [phone] Addiction Nurse: Shin Flood MD Glucose [Mass/Vol] 170 mg/dL High [address] [place] [address] Comment on above: Performed By: #### 1 [id number] #### [facility] Laboratory Services [address] [place] [address] 00639 Addiction Nurse: Shin Flood MD Glucose [Mass/Vol] 143 mg/dL High [address] [place] [address] Comment on above: Performed By: #### 1 [id number] #### [facility] Laboratory Services [address] [place] [address] 37191 Addiction Nurse: Shin Flood MD Progress Note-Joo Progress Note-Physician JAME WALLACE :1965 Registration Date:02/19/2025 [...] Inpatient acetaminophen, 650 mg= 2 tabs, ORAL, [id number], PRN acetaminophen, 650 mg= 2 tabs, ORAL, [id number], PRN acetaminophen, 650 mg= 2 tabs, ORAL, [id number], PRN acetaminophen-oxycodone(brianda taminophen-oxycodone 325 mg-5 mg oral tablet = Percocet), 1 tabs, ORAL, [id number], PRN apixaban(Eliquis), 5 mg= 1 tabs, ORAL, ONCE aspirin(Aspirin Low Dose), 81 mg= 1 tabs, ORAL, DAILY WITH BREAKFAST atorvastatin(Lipitor), 40 mg= 1 tabs, ORAL, DAILY buPROPion(Wellbutrin SR, Zyban (buPROPion SR)), 100 mg= 1 tabs, ORAL, BID celecoxib(CeleBREX), 200 mg= 1 caps, ORAL, BID ciprofloxacin = Cipro, 500 mg= 1 tabs, ORAL, [id number] digoxin, 0.25 mg= 1 mL, IV Push, [...] BREAKFAST melatonin, 5 mg= 1 tabs, ORAL, [id number]/[id number], PRN metFORMIN = Glucophage, 850 mg= 1 tabs, ORAL, BIDWM metoprolol(Lopressor = Metoprolol Tartrate), 37.5 mg= 1.5 tabs, ORAL, BID metoprolol(Lopressor = Metoprolol Tartrate), 5 mg= 5 mL, IV Push, [id number], PRN mirtazapine(Remeron), 7.5 mg= 1 tabs, ORAL, QHS multivitamin, 1 tabs, ORAL, DAILY naloxone = Narcan, 0.4 mg= 1 mL, IV Push, PRN, PRN ondansetron(ondansetron 4 mg oral tablet, disintegrating = Zofran), 4 mg= 1 tabs, ORAL, [id number], PRN tamsulosin(Flomax), 0.4 mg= 1 caps, ORAL, [...] interpret GFR (more content not included)... Normal [facility] Progress Note-Physician JAME WALLACE :1965 Registration Date:02/19/2025 [...] Inpatient acetaminophen, 650 mg= 2 tabs, ORAL, [id number], PRN acetaminophen-oxycodone(brianda taminophen-oxycodone 325 mg-5 mg oral tablet = Percocet), 1 tabs, ORAL, [id number], PRN aspirin(Aspirin Low Dose), 81 mg= 1 tabs, ORAL, DAILY WITH BREAKFAST atorvastatin(Lipitor), 40 mg= 1 tabs, ORAL, DAILY buPROPion(Wellbutrin SR, Zyban (buPROPion SR)), 100 mg= 1 tabs, ORAL, BID celecoxib(CeleBREX), 200 mg= 1 caps, ORAL, BID ciprofloxacin = Cipro, 500 mg= 1 tabs, ORAL, [id number] DULoxetine(Cymbalta), 60 mg= 1 caps, ORAL, DAILY [...] BREAKFAST melatonin, 5 mg= 1 tabs, ORAL, [id number], PRN metFORMIN = Glucophage, 850 mg= 1 tabs, ORAL, BIDWM metoprolol(Lopressor = Metoprolol Tartrate), 37.5 mg= 1.5 tabs, ORAL, BID mirtazapine(Remeron), 7.5 mg= 1 tabs, ORAL, QHS multivitamin, 1 tabs, ORAL, DAILY naloxone = Narcan, 0.4 mg= 1 mL, IV Push, PRN, PRN ondansetron(ondansetron 4 mg oral tablet, disintegrating = Zofran), 4 mg= 1 tabs, ORAL, [id number], PRN tamsulosin(Flomax), 0.4 mg= 1 caps, ORAL, [...] in ng/ml Fibrinogen Equivalent Units (FEU). Per medical lab scientist?s instructions for use, a value less than [...] EDT HG (more content not included)... Normal [facility] Progress Note-Physician Patient: JAME WALLACE Age: 59 [...] Hct L 37.0 (FEB 18) Plt 178 (FEB 18) Na 143 (FEB 18) K 4.0 (FEB 19) CO2 H 33.0 (FEB 19) Cl 102 (FEB 18) Cr H 1.2 (FEB 18) BUN 21 (FEB 18) Glucose Random [...] admission. Exam / procedure done by: NICOLLE, MANDO, resident under supervision of attending Physician. Sent to for review: DANI ROPER MD [facility] 6 Clicks Basic Mobilit [facility] 02-19-2025 [facility] 6 Clicks Basic Mobility AM-PAC 6 Clicks Basic Mobility Entered On: 02/19/2025 11:40 EDT Performed On: 02/19/2025 11:39 EDT by Farzad Plata RN -PAC 6 clicks Basic Mobility How [...] Farzad Plata RN - 02/19/2025 11:39 EDT [facility] Comment on above: Order Comment: Order placed by discern rule ADMIT_MOBILITY_SCREEN_ORD [facility] 6 Clicks Basic Mobility AM-PAC 6 Clicks [...] Pleitez RN - 02/19/2025 2:40 EDT Normal [facility] Comment on above: Order Comment: Order placed by discern rule ADMIT_MOBILITY_SCREEN_ORD AUTO DIFFon 02-19-2025 Baso Count 0.05 x1000 Normal 0.00-0.20 [facility] Comment on above: Performed By: #### 1 [id number] #### [facility] Laboratory Services [address] [place] [address] Addiction Nurse: Shin Flood MD Basos % 0.7 % Normal [facility] Comment on above: Performed By: #### 1 [id number] #### [facility] General Laboratory Services [address] [place] [address] Addiction Nurse: Shin Flood MD Eos Count 0.20 x1000 Normal 0.00-0.50 [facility] Comment on above: Performed By: #### 1 [id number] #### [facility] General Laboratory Services [address] [place] [address] Addiction Nurse: Shin Flood MD Eosinophils/100 WBC (Bld) 2.6 % Normal [facility] Comment on above: Performed By: #### 1 [id number] #### [facility] General Laboratory Services [address] [place] [address] Addiction Nurse: Shin Flood MD Lymph Count 1.57 x1000 Normal 1.20-4.80 [facility] Comment on above: Performed By: #### 1 [id number] #### [facility] General Laboratory Services [address] [place] [address] Addiction Nurse: Shin Flood MD Lymphocytes/100 WBC (Bld) 20.2 % Normal [facility] Comment on above: Performed By: #### 1 [id number] #### [facility] General Laboratory Services [address] [place] [address]1111 Addiction Nurse: Shin Flood MD Webb Count 0.92 x1000 Normal 0.10-1.00 [facility] Comment on above: Performed By: #### 1 [id number] #### [facility] Laboratory Services [address] [place] [address] 33381 Addiction Nurse: Shin Flood MD Monocytes/100 WBC (Bld) 11.9 % Normal [facility] Comment on above: Performed By: #### 1 [id number] #### [facility] Laboratory Services [address] [place] [address] 41940 Addiction Nurse: Shin Flood MD Neutrophil Count (ANC) 5.01 x1000 Normal 1.40-8.80 [facility] Comment on above: Performed By: #### 1 [id number] #### [facility] Laboratory Services [address] [place] [address]60 Addiction Nurse: Shin Flood MD Neutrophils/100 WBC (Bld) 64.6 % Normal [facility] Comment on above: Performed By: #### 1 [id number] #### [facility] Laboratory Services [address] [place] [address] 28609 Addiction Nurse: Shin Flood MD Admission Assessment Adulton 02-19-2025 Admission Assessment Adult Adult Admission Data Entered On: 02/19/2025 2:40 EDT Performed On: 02/19/2025 1:50 EDT by Raman Pleitez RN Patient Safety Grid ID Band on and Verified : Yes Allergy Fuel Island Attendant : No Latex Tote : No Diabetic Fuel Island Attendant : Yes Fall Risk Fuel Island Attendant : Yes No Blood Fuel [place] Attendant : No Restricted Extremity Band On : [...] - 02/19/2025 3:00 EDT Rapid Pain Data [id number] Primary Pain Location : Generalized (Comment: pt's [...] Response Dewey : Spontaneously Best Verbal Response Delta : Oriented Best Motor Response Delta : Obeys simple commands Delta Coma Score : 15 Raman Pleitez RN [...] Less than 2 seconds Edema : Generalized Raman Pleitez RN 02/19/2025 2:38 EDT Respiratory Respirations : Unlabored Respiratory Pattern Description : Regular Raman Pleitez RN 02/19/2025 2:38 EDT WILLIAM : Clear LLL : Diminished RUL : Clear RML : Diminished RLL : Diminished Raman Pleitez RN 02/19/2025 2:38 EDT Cough : None Maik GUSTAFSON Raman 02/19/2025 2:38 EDT Musculoskeletal Activity Maicol : Walks occasionally Mobility Maicol : Slightly limited Ambulatory Devices : None Special Orthopedic Devices : None ADLs : Independent Maik GUSTAFSON, [facility] 02/19/2025 2:38 EDT GI Abdomen Description : Symmetric Abdomen Palpation : Soft Maik GUSTAFSON [facility] 02/19/2025 2:38 EDT Bowel Sounds Grid LUQ : Present RUQ : Present LLQ : Present RLQ : Present Maik GUSTAFSON, [facility] 02/19/2025 2:38 EDT Passing Flatus : Yes Bowel Movement Last Date Known : Yes Bowel Movement Last Date : 02/18/2025 EDT Maik GUSTAFSON [facility] 02/19/2025 2:38 EDT Bladder Distention : Absent Maik GUSTAFSON [facility] 02/19/2025 2:38 EDT Integumentary Skin Integrity : Intact Skin Temperature : Warm Skin Color : [place] Skin Turgor : Elastic Mucous Membrane Color : [place] Mucous Membrane Description : Moist Skin Description : Dry Maik GUSTAFSON, [facility] 02/19/2025 2:38 EDT Present on Admission Medical Devices : None Medical Devices for Med Administration : None Maik GUSTAFSON [facility] 02/19/2025 2:38 EDT Education Responsible Learner/s Present : No Data Available Owens Learner/Caregiver Present for Session : No Barriers to Learning : None evident TeachBack Methodology : TeachBack, Explanation Roxy Desouza RN [facility] 02/19/2025 3:00 EDT Activity Expectations : Verbalizes understanding Orientation to Unit/Room : Verbalizes understanding Pain Management : Verbalizes understanding Patient Participation in Treatment : Verbalizes understanding Patient Rights/Responsibilities : Verbalizes understanding Physical Limitations : Verbalizes understanding Plan of Care : Verbalizes understanding Safety, Fall : Verbalizes understanding Unit Procedures : Verbalizes understanding Anabella Michael RN 02/19/2025 3:00 EDT Notifications PCP notified of your admission? : Yes Emergency Contact notified of your admission? : FRIEDA Desouza RN [facility] 02/19/2025 3:00 EDT Normal [facility] Comment on above: Order Comment: Order entered secondary to admissionVN completed workflow tasks. BN to complete physical assessment B TYPE PEPon 02-19-2025 Natriuretic peptide B (Bld) [Mass/Vol] 326 pg/mL High 0-100 [facility] Comment on above: Performed By: #### 3 [id number] #### [facility] Laboratory Services [address] [place] [address] Addiction Nurse: Shin Flood MD Basic Admission Informationo n 02-19-2025 Basic Admission Information Basic Admission Information [...] low position, Call device within reach, Fall carton liner ID Band, Falling Britton, ID band check, Mobility support items readily available, Night light, Non-Slip footwear, Personal items within reach, Sensory aids within reach, Upper/Half-length side-rails up, Traffic path in room free of clutter, Wheels locked Demonstrates Ability to Use Call Light Successfully : Yes Ying Andrebie - 02/19/2025 2:14 EDT Normal [facility] Comment on above: Order Comment: Order entered secondary to admission VIKTORMETAon 02-19-2025 Albumin [Mass/Vol] 3.1 g/dL Low 3.4-5.0 [facility] Comment on above: Performed By: #### 1 [id number] #### [facility] Laboratory Services [address] [place], [place] [id number] Addiction Nurse: Shin Flood MD Albumin/Globulin [Mass ratio] 0.9 {ratio} Normal [facility] Comment on above: Performed By: #### 1 [id number] #### [facility] Laboratory Services [address] [place], [place] [phone] Addiction Nurse: Shin Flood MD Alk Phos 96 unit/L Normal 45-117 [facility] Comment on above: Performed By: #### 1 [id number] #### [facility] Laboratory Services [address] [place], [place] [phone] Addiction Nurse: Shin Flood MD Bilirubin [Mass/Vol] 0.50 mg/dL Normal 0.30-1.20 [facility] Comment on above: Result Comment: Use of this assay is not recommended for patients undergoing treatment with eltrombopag due to the potential for falsely elevated results. Performed By: #### 1 [id number] #### [facility] Laboratory Services [address] [place], [place] [phone] Addiction Nurse: Shin Flood MD Calcium [Mass/Vol] 9.2 mg/dL Normal 8.7-10.4 [facility] Comment on above: Performed By: #### 1 [id number] #### [facility] Laboratory Services [address] [place], [place] [phone] Addiction Nurse: Shin Flood MD Chloride [Moles/Vol] 102 mmol/L Normal 98-107 [facility] Comment on above: Performed By: #### 1 [id number] #### [facility] Laboratory Services [address] [place] [address] Addiction Nurse: Shin Flood MD CO2 [Moles/Vol] 33.0 mmol/L High 20.0-31.0 [facility] Comment on above: Performed By: #### 1 [id number] #### [facility] Laboratory Services [address] [place] [address] 27059 Addiction Nurse: Shin Flood MD Creatinine [Mass/Vol] 1.2 mg/dL High 0.6-1.1 [facility] Comment on above: Performed By: #### 1 [id number] #### [facility] Laboratory Services [address] [place] [address] 56047 Addiction Nurse: Shin Flood MD GFR AA >60 [facility] Comment on above: Result Comment: Afri can Ukrainian GFR Calc Medical judgement is necessary to [...] MDRD GFR equation Performed By: #### 1 [id number] #### [facility] Laboratory Services [address] [place] [address] 93498 Addiction Nurse: Shin Flood MD Globulin (S) [Mass/Vol] 3.4 g/dL Normal [facility] Comment on above: Performed By: #### 1 [id number] #### [facility] Laboratory Services [address] [place] [address] 09362 Addiction Nurse: Shin Flood MD Glomerular Filtration Rate >60 Normal [facility] Comment on above: Result Comment: Non- GFR [...] MDRD GFR equation Performed By: #### 1 [id number] #### [facility] Laboratory Services [address] [place] [address] 63791 Addiction Nurse: Shin Flood MD Glucose [Mass/Vol] 117 mg/dL High 74-106 [facility] Comment on above: Performed By: #### 1 [id number] #### [facility] Laboratory Services [address] [place] [address] 50821 Addiction Nurse: Shin Flood MD GOT 18 unit/L Normal 15-37 [facility] Comment on above: Performed By: #### 1 [id number] #### [facility] Laboratory Services [address] [place] [address] 88039 Addiction Nurse: Shin Flood MD GPT 15 unit/L Normal 10-49 [facility] Comment on above: Performed By: #### 1 15609 #### [facility] Laboratory Services [address] [place] [address] 89587 Addiction Nurse: Shin Flood MD Osmolality [Osmolality] 289 mosm/kg Normal 275-295 [facility] Comment on above: Performed By: #### 1 [id number] #### [facility] Laboratory Services [address] [place] [address] 57443 Addiction Nurse: Shni Flood MD Potassium [Moles/Vol] 4.0 mmol/L Normal 3.5-5.1 [facility] Comment on above: Performed By: #### 1 [id number] #### [facility] Laboratory Services [address] [place] [address] 47610 Addiction Nurse: Shin Flood MD Protein [Mass/Vol] 6.5 g/dL Normal 5.7-8.2 [facility] Comment on above: Result Comment: Tota l Protein results may be increased in 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 Performed By: #### 1 [id number] #### [facility] Laboratory Services [address] [place] [address] 63424 Addiction Nurse: Shin Flood MD Sodium [Moles/Vol] 143 mmol/L Normal 135-145 [facility] Comment on above: Performed By: #### 1 [id number] #### [facility] Laboratory Services [address] [place], [place] [phone] Addiction Nurse: Shin Flood MD Urea nitrogen [Mass/Vol] 21 mg/dL Normal 9-23 [facility] Comment on above: Result Comment: - Ve nipuncture should occur prior to N-Acetyl Cysteine (NAC) or Metamizole (Sulpyrine) administration due to the potential for falsely depressed results. - Blood samples from some patients with monoclonal gammopathies may produce falsely elevated results Performed By: #### 1 [id number] #### [facility] Laboratory Services [address] [place] [address] [phone] Addiction Nurse: Shin Flood MD Urea nitrogen/Creatinine [Mass ratio] 17.5 mg/mg Normal [facility] Comment on above: Performed By: #### 1 [id number] #### [facility] Laboratory Services [address] [place] [address] [phone] Addiction Nurse: Shin Flood MD Consult Reporton 02-19-2025 Consult [...] wait because of the pain. When the smt technician laid him down for KUB Xray, [...] Inpatient acetaminophen, 650 mg= 2 tabs, ORAL, [id number], PRN acetaminophen-oxycodone(brianda taminophen-oxycodone 325 mg-5 mg oral tablet = Percocet), 1 tabs, ORAL, [id number], PRN aspirin(Aspirin Low Dose), 81 mg= 1 tabs, ORAL, DAILY WITH BREAKFAST ciprofloxacin = Cipro, 500 mg= 1 tabs, ORAL, [id number] enoxaparin(Lovenox), 40 mg= 0.4 mL, Subcutaneous, QHS [...] PRN melatonin, 5 mg= 1 tabs, ORAL, [id number], PRN naloxone = Narcan, 0.4 mg= 1 mL, IV Push, PRN, PRN ondansetron(ondansetron 4 mg oral tablet, disintegrating = Zofran), 4 mg= 1 tabs, ORAL, [id number], PRN traMADol(Ultram), 50 mg= 1 tabs, ORAL, TID Home acetaminophen-oxycodone(Per cocet 5 mg-325 mg oral tablet), 1 tabs, ORAL, [id number], PRN atorvastatin(Lipitor 40 mg oral tablet), 40 mg= 1 tabs, ORAL, D (more content not included)... Normal [facility] Comment on above: Order Comment: submi tted [...] wait because of the pain. When the smt technician laid him down for KUB Xray, [...] tested as outpatient; his PCP is in [place] and I wrote him out name/number for evaluation here if interested IV diuresis Needs to be more cognizant of sodium intake Wean oxygen as tolerated ECHO Check d dimer Normal [facility] Consult Report JAME WALLACE :1965 Registration Date:02/19/2025 Chief Complaint CHF Exacerbation Reason for Consultation R ureteral stone History of Present Illness 59-year-old male known to [facility] urology, Patient directly admitted late last night from [place] for CHF exacerbation Urology consulted for known right ureteral stone. Patient was evaluated in [facility] ED 02/16/2025 for worsening right sided flank pain. He was previously seen prior to 02/16 at [place] ED for 8 mm right ureteral stone at the [facility]. He was discharged from [facility] ED with plan to proceed with right [...] Inpatient acetaminophen, 650 mg= 2 tabs, ORAL, [id number], PRN acetaminophen, 650 mg= 2 tabs, ORAL, [id number], PRN acetaminophen, 650 mg= 2 tabs, ORAL, [id number], PRN acetaminophen-oxycodone(brianda taminophen-oxycodone 325 mg-5 mg oral tablet = Percocet), 1 tabs, ORAL, [id number], PRN aspirin(Aspirin Low Dose), 81 mg= 1 tabs, ORAL, DAILY WITH BREAKFAST atorvastatin(Lipitor), 40 mg= 1 tabs, ORAL, DAILY buPROPion(Wellbutrin SR, Zyban (buPROPion SR)), 100 mg= 1 tabs, ORAL, BID celecoxib(CeleBREX), 200 mg= 1 caps, ORAL, BID ciprofloxacin = Cipro, 500 mg= 1 tabs, ORAL, [id number] DULoxetine(Cymbalta), 60 mg= 1 caps, ORAL, DAILY [...] glucose(Dextrose 50% (more content not included)... Normal [facility] D Dimer HSon 02-19-2025 D Dimer HS 630 ng/mL FEU High <=499 [facility] Comment on above: Result Comment: Excl usion of PE and DVT The D Dimer HS assay is reported in ng/ml Fibrinogen Equivalent Units (FEU). Per medical lab scientist?s instructions for use, a value less than 500ng/ml (FEU) may help to exclude DVT and /or PE in outpatients when the assay is used with a clinical pretest probability assessment. D-Dimer used for DIC Screens Assay results should be used with other information, including the clinical context in forming a diagnosis. Performed By: #### 1 [id number] #### [facility] Laboratory Services [address] [place] [id number] Addiction Nurse: Shin Flood MD HEMOon 02-19-2025 DIFF? No Normal [facility] Comment on above: Performed By: #### 1 [id number] #### [facility] Laboratory Services [address] [place] [address]130 Addiction Nurse: Shin Flood MD Erythrocyte distribution width (RBC) [Ratio] 14.3 % Normal 11.5-14.5 [facility] Comment on above: Performed By: #### 1 [id number] #### [facility] Laboratory Services [address] [place] [address] Addiction Nurse: Shin Flood MD Hematocrit (Bld) [Volume fraction] 37.0 % Low 41.0-52.0 [facility] Comment on above: Performed By: #### 1 [id number] #### [facility] Laboratory Services [address] [place] [address] 50019 Addiction Nurse: Shin Flood MD Hemoglobin (Bld) [Mass/Vol] 12.3 g/dL Low 13.5-17.5 [facility] Comment on above: Performed By: #### 1 [id number] #### [facility] Laboratory Services [address] [place] [address] 59941 Addiction Nurse: Shin Flood MD Instr WBC 7.8 Normal [facility] Comment on above: Performed By: #### 1 [id number] #### [facility] Laboratory Services [address] [place] [address] 06070 Addiction Nurse: Shin Flood MD MCH (RBC) [Entitic mass] 31.3 pg Normal 27.0-34.0 [facility] Comment on above: Performed By: #### 1 [id number] #### [facility] Laboratory Services [address] [place], [place] [phone] Addiction Nurse: Shin Flood MD MCHC (RBC) [Mass/Vol] 33.3 g/dL Normal 32.0-37.0 [facility] Comment on above: Performed By: #### 1 [id number] #### [facility] Laboratory Services [address] [place] [address] [phone] Addiction Nurse: Shin Flood MD MCV (RBC) [Entitic vol] 94.1 fL Normal 80.0-100.0 [facility] Comment on above: Performed By: #### 1 [id number] #### [facility] Laboratory Services [address] [place] [address] 14849 Addiction Nurse: Shin Flood MD Nucleated RBC 0 /100WBC Normal [facility] Comment on above: Performed By: #### 1 [id number] #### [facility] Laboratory Services [address] [place] [address] 31294 Addiction Nurse: Shin Flood MD Platelet 178 x10 Normal 150-450 [facility] Comment on above: Performed By: #### 1 [id number] #### [facility] Laboratory Services [address] [place] [address] Addiction Nurse: Shin Flood MD Platelet mean volume (Bld) [Entitic vol] 10.2 fL Normal 7.4-10.4 [facility] Comment on above: Performed By: #### 1 [id number] #### [facility] Laboratory Services [address] [place] [address] 01184 Addiction Nurse: Shin Flood MD RBC 3.93 x10 Low 4.70-6.10 [facility] Comment on above: Result Comment: Note : RBC morphology is normal unless otherwise stated. Evaluation performed only if differential is requested. Performed By: #### 1 [id number] #### [facility] Laboratory Services [address] [place] [address] [phone] Addiction Nurse: Shin Flood MD WBC 7.8 x10 Normal 4.5-11.0 [facility] Comment on above: Performed By: #### 1 [id number] #### [facility] Laboratory Services [address] [place] [address] 42989 Addiction Nurse: Shin Flood MD LaboratoryOrdered By: Devin Hussein on 02-19-2025 D Dimer HS 630 ng/mL FEU High <=499ng/mL [facility]U [facility] Comment on above: Interpretive Data: E xclusion of PE and DVT The D Dimer HS assay is reported in ng/ml Fibrinogen Equivalent Units (FEU). Per medical lab scientist s instructions for use, a value less [...] 10 pg/mL Normal 3 - 53 pg/mL SW ADM RES Comment on above: Interpretive Data: S pecimens from some individuals with pathologically high gamma globulin levels may demonstrate depressed troponin values Estimated Creatinine Clearance 78.01 mL/min [facility] Work Phone: Albumin BCP dye [Mass/Vol] 3.1 g/dL Low 3.4 - 5.0 g/dL ADM RES Albumin/Globulin [Mass ratio] 0.9 {ratio} Invalid Interpretation Code ADM RES ALP [Catalytic activity/Vol] 96 U/L Normal 45 - 117 unit/L SW ADM RES ALT With P-5'-P [Catalytic activity/Vol] 15 U/L Normal 10 - 49 unit/L SW ADM RES AST With P-5'-P [Catalytic activity/Vol] 18 U/L Normal 15 - 37 unit/L ADM RES Basophils (Bld) [#/Vol] 0.05 10*3/uL Normal 0.00 - 0.20 x1000 DxH 1600 MPL Basophils/100 WBC (Bld) 0.7 % Invalid Interpretation Code DxH 1600 MPL Bilirubin [Mass/Vol] 0.50 mg/dL Normal 0.30 - 1.20 mg/dL ADM RES Comment on above: Interpretive Data: U se of this assay is not recommended for patients undergoing treatment with eltrombopag due to the potential for falsely elevated results. Calcium [Mass/Vol] 9.2 mg/dL Normal 8.7 - 10. 4 mg/dL ADM RES Chloride [Moles/Vol] 102 mmol/L Normal 98 - 10 7 mmol/L SW ADM RES CO2 [Moles/Vol] 33.0 mmol/L High 20.0 - 31.0 mmol/L SW ADM RES Creatinine [Mass/Vol] 1.2 mg/dL High 0.6 - 1.1 mg/dL ADM RES Eosinophils (Bld) [#/Vol] 0.20 10*3/uL Normal 0.00 - 0.50 x1000 DxH 1600 MPL Eosinophils/100 WBC (Bld) 2.6 % Invalid Interpretation Code DxH 1600 MPL Erythrocyte distribution width (RBC) [Ratio] 14.3 % Normal 11.5 - 14.5 % SW DxH 1600 MPL GFR AA 1 Invalid Interpretation Code ADM RES Comment on above: Result Comment: Afri can Ukrainian GFR Calc Interpretive Data: Medical judgement is [...] (S) [Mass/Vol] 3.4 g/dL Invalid Interpretation Code SW ADM RES Glucose [Mass/Vol] 117 mg/dL High 74 - 106 mg/dL SW ADM RES Hematocrit (Bld) [Volume fraction] 37.0 % Low 41.0 - 52.0 % SW DxH 1600 MPL Hemoglobin (Bld) [Mass/Vol] 12.3 g/dL Low 13.5 - 17.5 g/dL SW DxH 1600 MPL Lymphocytes (Bld) [#/Vol] 1.57 10*3/uL Normal 1.20 - 4.80 x1000 SW DxH 1600 MPL Lymphocytes/100 WBC (Bld) 20.2 % Invalid Interpretation Code SW DxH 1600 MPL MCH (RBC) [Entitic mass] 31.3 pg Normal 27.0 - 34.0 pg SW DxH 1600 MPL MCHC (RBC) [Mass/Vol] 33.3 g/dL Normal 32.0 - 37.0 g/dL SW DxH 1600 MPL MCV (RBC) [Entitic vol] 94.1 fL Normal 80.0 - 100.0 fL SW DxH 1600 MPL Monocytes (Bld) [#/Vol] 0.92 10*3/uL Normal 0.10 - 1.00 x1000 SW DxH 1600 MPL Monocytes/100 WBC (Bld) 11.9 % Invalid Interpretation Code SW DxH 1600 MPL Natriuretic peptide B (Bld) [Mass/Vol] 326 pg/mL High 0 - 100 pg/mL SW ADM RES Neutrophils (Bld) [#/Vol] 5.01 10*3/uL Normal 1.40 - 8.80 x1000 Dx 1600 MPL Neutrophils/100 WBC (Bld) 64.6 % Invalid Interpretation Code Dx 1600 MPL Nucleated RBC Auto Ql (Bld) 0 /100WBC Invalid Interpretation Code Dx 1600 MPL Osmolality Calc [Osmolality] 289 mOsm/kg Normal 275 - 295 mOsm/kg [facility] Platelet mean volume (Bld) [Entitic vol] 10.2 fL Normal 7.4 - 10.4 fL Dx 1600 MPL Platelets (Bld) [#/Vol] 178 10*3/uL Normal 150 - 450 x10^3/uL Dx 1600 MPL Potassium [Moles/Vol] 4.0 mmol/L Normal 3.5 - 5.1 mmol/L [facility] RES Protein [Mass/Vol] 6.5 g/dL Normal 5.7 - 8.2 g/dL [facility] Comment on above: Interpretive Data: T otal Protein results may be increased in 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 RBC (Bld) [#/Vol] 3.93 10*6/uL Low 4.70 - 6.10 x10^6/uL Dx 1600 MPL Comment on above: Interpretive Data: N ote: RBC morphology is normal unless otherwise stated. Evaluation performed only if differential is requested. Sodium [Moles/Vol] 143 mmol/L Normal 135 - 145 mmol/L [facility] Urea nitrogen [Mass/Vol] 21 mg/dL Normal 9 - 23 mg/dL [facility] Comment on above: Interpretive Data: - Venipuncture should occur prior to N- Acetyl Cysteine (NAC) or Metamizole (Sulpyrine) administration due to the potential for falsely depressed results. - Blood samples from some patients with monoclonal gammopathies may produce falsely elevated results Urea nitrogen/Creatinine [Mass ratio] 17.5 mg/mg Invalid Interpretation Code [facility] WBC corrected for nucl RBC Auto (Bld) [#/Vol] 7.8 x10^3/uL Normal 4.5 - 11.0 x10^3/uL Dx 1600 MPL Estimated Creatinine Clearance 85.11 mL/min [facility] Work Phone: POC Glucoseon 02-19-2025 Glucose [Mass/Vol] 152 mg/dL High 72-100 [facility] Comment on above: Performed By: #### 1 [id number] #### [facility] Laboratory Services [address] [place] [address] Addiction Nurse: Shin Flood MD Glucose [Mass/Vol] 101 mg/dL High 72-100 [facility] Comment on above: Performed By: #### 1 [id number] #### [facility] Laboratory Services [address] [place] [address] Addiction Nurse: Shin Flood MD Glucose [Mass/Vol] 181 mg/dL High 72-100 [facility] Comment on above: Performed By: #### 1 [id number] #### [facility] Laboratory Services [address] [place] [address] Addiction Nurse: Shin Flood MD TROPONIN HS SINGLE DRAWon Troponin HS Single Draw 10 pg/mL Normal 3-53 [facility] Comment on above: Result Comment: Spec imens from some individuals with pathologically high gamma globulin levels may demonstrate depressed troponin values Performed By: #### 1 [id number] #### [facility] Laboratory Services [address] [place] [address] Addiction Nurse: Shin Flood MD ALLIED HEALTHon 02-18-2025 ALLIED HEALTH HNO ID: [id number] Author: JUNE WESTFALL CT Service: Radiology Author [...] PATIENT PRESENTS WITH AN IMPLANTABLE OR ATTACHED AIR INTELLIGENCE OFFICER: No ALLERGIES: Reviewed and unchanged CONTRAST ALLERGY: [...] PERIPHERAL IV DATA: Inpatient - refer to [facility] documentation RADIOLOGY DEPARTMENT: CT; Exam(s) Completed: PE Study. Anesthesia: No SIGNATURE: BOBBI Patel PATIENT NAME: Jame Wallace DATE: February 18, 2025 TIME: 6:10 PM Normal [facility] Basic metabolic 2000 panelon 02-18-2025 Anion gap [Moles/Vol] 11 mmol/L Normal 8-15 [facility] Comment on above: Order Comment: Lucas olson Type: BLOOD SPECIMENOrdering Facility: [facility] Address: [address] [place] [address] Performed By: #### 2 4321-2, 93192-9, 43963-6 ####[facility] [place] LABCLIA [id number] [place] [address] [place] Calcium [Mass/Vol] 9.3 mg/dL Normal 8.5-10.2 [facility] Comment on above: Order Comment: Lucas olson Type: BLOOD SPECIMENOrdering Facility: [facility] Address: [address] [place] [address] Performed By: #### 2 4321-2, , 70016-1 ####[facility] [place] LABCLIA [id number] [place] [address] [place] Chloride [Moles/Vol] 102 mmol/L Normal 98-107 [facility] Comment on above: Order Comment: Speci men Type: BLOOD SPECIMENOrdering Facility: [facility] Address: [address] [place] [address] Performed By: #### 2 4321-2, , 63094-8 ####[facility] LAB[facility] [id number] [place] [address] [place] CO2 [Moles/Vol] 27 mmol/L Normal 22-30 [facility] Comment on above: Order Comment: Speci men Type: BLOOD SPECIMENOrdering Facility: [facility] Address: [address] [place] [address] Performed By: #### 2 4321-2, , 46471-5 ####[facility] LABCL[facility] [id number] [place] [address] [place] Creatinine [Mass/Vol] 1.17 mg/dL Normal 0.73-1.22 [facility] Comment on above: Order Comment: Speci men Type: BLOOD SPECIMENOrdering Facility: [facility] Address: [address] [place] [address] Performed By: #### 2 4321-2, , 03285-7 ####[facility] LABCL[facility] [id number] [place] [address] [place] eGFRcr SerPlBld CKD-EPI 2020 72 mL/min/1.73m??? Normal >=60 [facility] Comment on above: Order Comment: Speci men Type: BLOOD SPECIMENOrdering Facility: [facility] Address: [address] [place] [address] Result Comment: Delaney mated Glomerular Filtration Rate [...] actual GFR. Performed By: #### 2 4321-2, , 41769-9 ####[facility] LABCLIA [id number] [place] [address] [place] Glucose [Mass/Vol] 155 mg/dL High 74-99 [facility] Comment on above: Order Comment: Lucas olson Type: BLOOD SPECIMENOrdering Facility: [facility] Address: [address] [place], [place] [id number] Result Comment: The [place] Diabetes Association (ADA) provides guidance for cutoff [...] Standards of Medical Care in Diabetes 2016, [place] Diabetes Association. Diabetes Care. 2016.39(Suppl 1). Performed By: #### 2 4321-2, , 23636-1 ####[facility] [employer] LABCLIA [id number] [place] [address] [place] Potassium [Moles/Vol] 4.6 mmol/L Normal 3.7-5.1 [facility] Comment on above: Order Comment: Lucas olson Type: BLOOD SPECIMENOrdering Facility: [facility] Address: [address] [place] [address] Performed By: #### 2 4321-2, , 31677-8 ####[facility] [employer] LABCLIA [id number] [place] [address] [place] Sodium [Moles/Vol] 140 mmol/L Normal 136-144 [facility] Comment on above: Order Comment: Speci men Type: BLOOD SPECIMENOrdering Facility: [facility] Address: [address] [place] [address] Performed By: #### 2 4321-2, 60392-4, 43313-0 ####[facility] LABCLIA [id number] [place] [address] [place] Urea nitrogen [Mass/Vol] 24 mg/dL Normal 9-24 [facility] Comment on above: Order Comment: Speci men Type: BLOOD SPECIMENOrdering Facility: [facility] Address: [address] [place] [address] Performed By: #### 2 4321-2, , 77189-1 ####[facility] LABCLIA [id number] [place] [address] [place] CBC W Auto Differential pane l (Bld)on 02-18-2025 Basophils (Bld) [#/Vol] 0.06 10*3/uL Normal <0.11 [facility] Comment on above: Order Comment: Speci men Type: BLOOD SPECIMENOrdering Facility: [facility] Address: [address] [place] [address] Performed By: #### 5 7021-8 ####[facility] LABCLIA [id number] [place] [address] [place] [facility] Basophils/100 WBC (Bld) 0.7 % Normal [facility] Comment on above: Order Comment: Speci men Type: BLOOD SPECIMENOrdering Facility: [facility] Address: [address] [place] [address] Performed By: #### 5 7021-8 ####[facility] LABCLIA [id number] [place] [address] [facility] Differential cell count method Nom (Bld) Auto Normal [facility] Comment on above: Order Comment: Speci men Type: BLOOD SPECIMENOrdering Facility: [facility] Address: [address] [place] [address] Performed By: #### 5 7021-8 ####[facility] [place] LABCLIA [id number] [place] [address] [place] Eosinophils (Bld) [#/Vol] 0.23 10*3/uL Normal <0.46 [facility] Comment on above: Order Comment: Speci men Type: BLOOD SPECIMENOrdering Facility: [facility] Address: [address] [place] [address] Performed By: #### 5 7021-8 ####[facility] [place] LABCLIA [id number] [place] [address] [place] Eosinophils/100 WBC (Bld) 2.6 % Normal [facility] Comment on above: Order Comment: Speci men Type: BLOOD SPECIMENOrdering Facility: [facility] Address: [address] [place] [address] Performed By: #### 5 7021-8 ####[facility] [place] LABCLIA [id number] [place] [address] [facility] Erythrocyte distribution width (RBC) [Ratio] 13.6 % Normal 11.5-15.0 [facility] Comment on above: Order Comment: Speci men Type: BLOOD SPECIMENOrdering Facility: [facility] Address: [address] [place] [address] Performed By: #### 5 7021-8 ####[facility] [place] LABCLIA [id number] [place] [address] [facility] [place] Hematocrit (Bld) [Volume fraction] 38.1 % Low 39.0-51.0 [facility] Comment on above: Order Comment: Speci men Type: BLOOD SPECIMENOrdering Facility: [facility] Address: [address] [place] [address] Performed By: #### 5 7021-8 ####[facility] [place] LABCLIA [id number] [place] [address] [place] Hemoglobin (Bld) [Mass/Vol] 11.9 g/dL Low 13.0-17.0 [facility] Comment on above: Order Comment: Speci men Type: BLOOD SPECIMENOrdering Facility: [facility] Address: [address] [place] [address] Performed By: #### 5 7021-8 ####[facility] [place] LABCLIA [id number] [facility] [place] [address] [place] Immature granulocytes (Bld) [#/Vol] 10*3/uL Normal <0.10 [facility] Comment on above: Order Comment: Speci men Type: BLOOD SPECIMENOrdering Facility: [facility] Address: [address] [place] [address] Performed By: #### 5 7021-8 ####[facility] [place] LABCLIA [id number] [facility] [place] [address] [facility] Immature granulocytes/100 WBC (Bld) 0.1 % Normal [facility] Comment on above: Order Comment: Speci men Type: BLOOD SPECIMENOrdering Facility: [facility] Address: [address] [place] [address] Performed By: #### 5 7021-8 ####[facility] [place] LABCLIA [id number] [facility] [place] [address] [place] Lymphocytes (Bld) [#/Vol] 1.56 10*3/uL Normal 1.00-4.00 [facility] Comment on above: Order Comment: Speci men Type: BLOOD SPECIMENOrdering Facility: [facility] Address: [address] [place] [address] Performed By: #### 5 7021-8 ####[facility] [place] LABCLIA [id number] [facility] [place] [address] [facility] [place] Lymphocytes/100 WBC (Bld) 17.7 % Normal [facility] Comment on above: Order Comment: Speci men Type: BLOOD SPECIMENOrdering Facility: [facility] Address: [address] [place] [address] Performed By: #### 5 7021-8 ####[facility] [place] LABCLIA [id number] [place] [facility] [id number] [place] [address] MCH (RBC) [Entitic mass] 31.1 pg Normal 26.0-34.0 [facility] Comment on above: Order Comment: Speci men Type: BLOOD SPECIMENOrdering Facility: [facility] Address: [address] [place] [address] Performed By: #### 5 7021-8 ####[facility] [place] LABCLIA [id number] [place] [address] [place] MCHC (RBC) [Mass/Vol] 31.2 g/dL Normal 30.5-36.0 [facility] Comment on above: Order Comment: Speci men Type: BLOOD SPECIMENOrdering Facility: [facility] Address: [address] [place] [address] Performed By: #### 5 7021-8 ####[facility] LABCLIA [id number] [address] [facility] MCV (RBC) [Entitic vol] 99.5 fL Normal 80.0-100.0 [facility] Comment on above: Order Comment: Speci men Type: BLOOD SPECIMENOrdering Facility: [facility] Address: [address] [place] [address] Performed By: #### 5 7021-8 ####[facility] LABCLIA [id number] [place] Monocytes (Bld) [#/Vol] 1.00 10*3/uL High <0.87 [facility] Comment on above: Order Comment: Speci men Type: BLOOD SPECIMENOrdering Facility: [facility] Address: [address] [place] [address] Performed By: #### 5 7021-8 ####[facility] [place] LABCLIA [id number] [address] Monocytes/100 WBC (Bld) 11.4 % Normal [facility] Comment on above: Order Comment: Speci men Type: BLOOD SPECIMENOrdering Facility: [facility] Address: [address] [place] [address] Performed By: #### 5 7021-8 ####[facility] [place] LABCLIA [id number] [place] [address] [place] Neutrophils (Bld) [#/Vol] 5.93 10*3/uL Normal 1.45-7.50 [facility] Comment on above: Order Comment: Speci men Type: BLOOD SPECIMENOrdering Facility: [facility] Address: [address] [place] [address] Performed By: #### 5 7021-8 ####[facility] [place] LABCLIA [id number] [place] [address] [place] Neutrophils/100 WBC (Bld) 67.5 % Normal [facility] Comment on above: Order Comment: Speci men Type: BLOOD SPECIMENOrdering Facility: [facility] Address: [address] [place] [address] Performed By: #### 5 7021-8 ####[facility] [place] LABCLIA [id number] [facility] [place] [address] [place] Nucleated RBC (Bld) [#/Vol] Normal [facility] Comment on above: Order Comment: Speci men Type: BLOOD SPECIMENOrdering Facility: [facility] Address: [address] [place] [address] Performed By: #### 5 7021-8 ####[facility] [place] LABCLIA [id number] [facility] [place] [address] [place] Nucleated RBC/100 WBC (Bld) [Ratio] Normal [facility] Comment on above: Order Comment: Speci men Type: BLOOD SPECIMENOrdering Facility: [facility] Address: [address] [place] [address] Performed By: #### 5 7021-8 ####[facility] [place] LABCLIA [id number] [facility] [place] [address] [place] Platelet mean volume (Bld) [Entitic vol] 12.4 fL Normal 9.0-12.7 [facility] Comment on above: Order Comment: Speci men Type: BLOOD SPECIMENOrdering Facility: [facility] Address: [address] [place] [address] Performed By: #### 5 7021-8 ####[facility] LABCLIA [id number] [place] [address] [facility] Platelets (Bld) [#/Vol] 207 10*3/uL Normal 150-400 [facility] Comment on above: Order Comment: Speci men Type: BLOOD SPECIMENOrdering Facility: [facility] Address: [address] [place] [address] Performed By: #### 5 7021-8 ####[facility] LABCLIA [id number] [place] [address] [facility] RBC (Bld) [#/Vol] 3.83 10*6/uL Low 4.20-6.00 [facility] Comment on above: Order Comment: Speci men Type: BLOOD SPECIMENOrdering Facility: [facility] Address: [address] [place] [address] Performed By: #### 5 7021-8 ####[facility] LABCLIA [id number] [place] [address] [facility] WBC (Bld) [#/Vol] 8.79 10*3/uL Normal 3.70-11.00 [facility] Comment on above: Order Comment: Speci men Type: BLOOD SPECIMENOrdering Facility: [facility] Address: [address] [place] [address] Performed By: #### 5 7021-8 ####[facility] LABCLIA [id number] [place] [address] [facility] CTA CHEST (NON GATED) W IVCO N PEon 02-18-2025 CTA CHEST (NON GATED) W IVCON PE * * *Final Report* * * DATE OF EXAM: Feb 18 2025 6:10PM LDC 0564 - CTA CHEST (NON GATED) W [...] Few enlarged mediastinal lymph nodes, possibly reactive. Virtualization Architect: PSCB Transcribe Date/Time: Feb 18 2025 7:23P Dictated by : LUZ MARINA CHANCE MD This examination was interpreted and the report reviewed and electronically signed by: LUZ MARINA CHANCE MD on Feb 18 2025 7:33PM EST [id number] [facility] ED NOTEon 02-18-2025 ED NOTE HNO ID: [id number] Author: MALIKA MARTIN, SJ Service: Emergency Medicine Author Type: Registered Nurse Type: ED Notes Filed: 02/18/2025 22:20 Note Text: Bed received from nursing injection molding supervisor at [facility]. Patient to go to [facility] Nurse to nurse: [phone] [facility] ETA: Will call us back [facility] ED NOTE HNO ID: [id number] Author: MALIKA MARTIN RN Service: Emergency Medicine Author Type: Registered Nurse Type: ED Notes Filed: 02/18/2025 20:14 Note Text: Eryn from [facility] called back - they can accommodate. Per Eryn call Dr. Herlinda Gatica at [phone] for admission [facility] ED NOTE HNO ID: [id number] Author: MALIKA MARTIN RN Service: Emergency Medicine Author Type: Registered Nurse Type: ED Notes Filed: 02/18/2025 20:07 Note Text: [facility] called for bed availability- will call me back [facility] ED NOTE HNO ID: [id number] Author: CONSTANZA MENENDEZ RN Service: ? Author Type: Registered Nurse Type: ED Notes Filed: 02/18/2025 19:14 Note Text: Report to SJ Devlin [facility] ED NOTE HNO ID: [id number] Author: CONSTANZA MENENDEZ RN Service: ? Author [...] picture and his eyelids were purple. Normal [facility] ED NOTE HNO ID: [id number] Author: CONSTANZA MENENDEZ, RN Service: ? Author Type: Registered Nurse Type: ED Notes Filed: 02/18/2025 16:46 Note Text: Pt arrives with report of Shortness of Breath which began yesterday gradually during the day. Denies recent illness. 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 Pt is reporting right sided chest pain with radiation into his back, not exacerbated by movement. Pt rates that pain 8/10 Pt placed on child monitor, EKG paged. 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 Normal [facility] EKGon 02-18-2025 Electrocardiogram Ventricular Rate : 6 6 BPM Atrial Rate : 66 BPM P-R Interval : 130 ms QRS Duration : 136 ms Q-T Interval : 438 ms QTC Calculation(Bazett) : 459 ms Calculated P Sandy : 21 degrees Calculated R Sandy : -6 degrees Calculated T Sandy : 16 degrees NORMAL SINUS RHYTHM RIGHT BUNDLE BRANCH BLOCK ABNORMAL ECG NO PREVIOUS ECGS AVAILABLE comparison 2007 bundle branch block is new Confirmed by MACARIO CREPSO MD ([id number]) on 02/18/2025 5:56:20 PM NAME : JAME WALLACE PID : [id number] : 1965 Gender : Male Race : ORD : Procedure Date : Feb 18 2025 16:46:23 Edit Date : Feb 18 2025 17:56:22 Diagnosis: NORMAL SINUS RHYTHM RIGHT BUNDLE BRANCH BLOCK ABNORMAL ECG NO PREVIOUS ECGS AVAILABLE comparison 2007 bundle branch block is new Confirmed by MACARIO CRESPO MD ([id number]) on 02/18/2025 5:56:20 PM Test Reason : Location : 150 : [place] [facility] Overread By : MACARIO CRESPO MD Edited By : MACARIO CRESPO MD Referred By : , Acquired by : JAMIN OBREGON [facility] HIGH SENSITIVITY TROPONIN To n 02-18-2025 Troponin T.cardiac High sensitivity method [Mass/Vol] 19 ng/L High <12 [facility] Comment on above: Order Comment: Speci men Type: BLOOD SPECIMENOrdering Facility: [facility] Address: [address] [place] [address] Performed By: #### H STNT ####[facility] LABCLIA [id number] [place] [address] [facility] Troponin T.cardiac High sensitivity method [Mass/Vol] 19 ng/L High <12 [facility] Comment on above: Order Comment: Speci men Type: BLOOD SPECIMENOrdering Facility: [facility] Address: [address] [place] [address] Performed By: #### H STNT ####[facility] LABCLIA [id number] [place] [address] [facility] Magnesium SerPl-ncon 02-18 Magnesium [Mass/Vol] 1.8 mg/dL Normal 1.7-2.3 [facility] Comment on above: Order Comment: Speci men Type: BLOOD SPECIMENOrdering Facility: [facility] Address: [address] [place] [address] Performed By: #### 2 4321-2, 08654-9, 65344-1 ####[facility] LABCLIA [id number] [place] [address] [facility] [place] NT-proBNP SerPl-mCncon 02-18 Natriuretic peptide.B prohormone N-Terminal [Mass/Vol] 1901 pg/mL High <125 [facility] Comment on above: Order Comment: Speci men Type: BLOOD SPECIMENOrdering Facility: [facility] Address: [address] [place] [address] Performed By: #### 2 4321-2, 08316-9, 39800-3 ####[facility] LABCLIA [id number] [place] [address] [place] AUTO DIFFon 02-16-2025 Baso Count 0.08 x1000 Normal 0.00-0.20 [facility] Comment on above: Performed By: #### 9 710981, 367444, 135191, 832116 #### [facility] Laboratory Services [address] [place] [address] Addiction Nurse: Shin Flood MD Basos % 1.0 % Normal [facility] Comment on above: Performed By: #### 9 263486, 973137, 759276, 292008 #### [facility] [address] [place] [address] Addiction Nurse: Shin Flood MD Eos Count 0.19 x1000 Normal 0.00-0.50 [facility] Comment on above: Performed By: #### 9 761069, 904340, 816663, 832681 #### [facility] [address] [place] [address] Addiction Nurse: Shin Flood MD Eosinophils/100 WBC (Bld) 2.6 % Normal [facility] Comment on above: Performed By: #### 9 635935, 739923, 253928, 197264 #### [facility] Services [address] [place] [address] Addiction Nurse: Shin Flood MD Lymph Count 1.53 x1000 Normal 1.20-4.80 [facility] Comment on above: Performed By: #### 9 457915, 014225, 025914, 341993 #### [facility] Services [address] [place] [address] Addiction Nurse: Shin Flood MD Lymphocytes/100 WBC (Bld) 20.6 % Normal [facility] Comment on above: Performed By: #### 9 117232, 439060, 844124, 860283 #### [facility] Services [address] [place] [address] Addiction Nurse: Shin Flood MD Webb Count 0.75 x1000 Normal 0.10-1.00 [facility] Comment on above: Performed By: #### 9 733838, 541374, 629132, 617256 #### [facility] Laboratory Services [address] [place] [address] Addiction Nurse: Shin Flood MD Monocytes/100 WBC (Bld) 10.1 % Normal [facility] Comment on above: Performed By: #### 9 138387, 320225, 570391, 093967 #### [facility] Laboratory Services [address] [place] [address] Addiction Nurse: Shin Flood MD Neutrophil Count (ANC) 4.89 x1000 Normal 1.40-8.80 [facility] Comment on above: Performed By: #### 9 084796, 789910, 840887, 735288 #### [facility] Laboratory Services [address] [place] [address] Addiction Nurse: Shin Flood MD Neutrophils/100 WBC (Bld) 65.8 % Normal [facility] Comment on above: Performed By: #### 9 461365, 736105, 023045, 258015 #### [facility] Laboratory Services [address] [place] [address] Addiction Nurse: Shin Flood MD COMPMETAon 02-16-2025 Albumin [Mass/Vol] 3.3 g/dL Low 3.4-5.0 [facility] Comment on above: Performed By: #### 9 256599, 873524, 125973, 844177 #### [facility] Laboratory Services [address] [place] [address] Addiction Nurse: Shin Flood MD Albumin/Globulin [Mass ratio] 0.9 {ratio} Normal [facility] Comment on above: Performed By: #### 9 241776, 674037, 818957, 017220 #### [facility] Laboratory Services [address] [place] [address] Addiction Nurse: Shin Flood MD Alk Phos 108 unit/L Normal 45-117 [facility] Comment on above: Performed By: #### 9 644350, 230555, 694195, 354201 #### [facility] Laboratory Services [address] [place] [address] Addiction Nurse: Shin Flood MD Bilirubin [Mass/Vol] 0.40 mg/dL Normal 0.30-1.20 [facility] Comment on above: Result Comment: Use of this assay is not recommended for patients undergoing treatment with eltrombopag due to the potential for falsely elevated results. Performed By: #### 9 457780, 076686, 066679, 382909 #### [facility] Laboratory Services [address] [place] [address] Addiction Nurse: Shin Flood MD Calcium [Mass/Vol] 9.0 mg/dL Normal 8.7-10.4 [facility] Comment on above: Performed By: #### 9 453947, 163221, 082393, 135410 #### [facility] Laboratory Services [address] [place] [address] Addiction Nurse: Shin Flood MD Chloride [Moles/Vol] 106 mmol/L Normal 98-107 [facility] Comment on above: Performed By: #### 9 051076, 474840, 706293, 635669 #### [facility] Laboratory Services [address] [place] [address] Addiction Nurse: Shin Flood MD CO2 [Moles/Vol] 34.0 mmol/L High 20.0-31.0 [facility] [facility] Comment on above: Performed By: #### 9 [id number], 074213, 420028, 886733 #### [facility] Laboratory Services [address] [place] [address] 78012 Addiction Nurse: Shin Flood MD Creatinine [Mass/Vol] 1.1 mg/dL Normal 0.6-1.1 [facility] Comment on above: Performed By: #### 9 529113, 045218, 993681, 273674 #### [facility] Laboratory Services [address] [place] [address] Addiction Nurse: Shin Flood MD GFR AA >60 Normal [facility] Comment on above: Result Comment: Afri can Ukrainian GFR Calc Medical judgement is necessary to [...] MDRD GFR equation Performed By: #### 9 630568, 364166, 164096, 292353 #### [facility] Laboratory Services [address] [place] [address] 84236 Addiction Nurse: Shin Flood MD Globulin (S) [Mass/Vol] 3.7 g/dL Normal [facility] Comment on above: Performed By: #### 9 190470, 516482, 253340, 987624 #### [facility] Laboratory Services [address] [place] [address] 20951 Addiction Nurse: Shin Flood MD Glomerular Filtration Rate >60 Normal [facility] Comment on above: Result Comment: Non- GFR [...] MDRD GFR equation Performed By: #### 9 607527, 363185, 986219, 045470 #### [facility] Laboratory Services [address] [place] [address] 19394 Addiction Nurse: Shin Flood MD Glucose [Mass/Vol] 123 mg/dL High 74-106 [facility] Comment on above: Performed By: #### 9 582831, 838533, 113334, 264343 #### [facility] Laboratory Services [address] [place] [address] Addiction Nurse: Shin Flood MD GOT 20 unit/L Normal 15-37 [facility] Comment on above: Performed By: #### 9 226241, 698698, 995872, 647506 #### [facility] Laboratory Services [address] [place] [address] 42326 Addiction Nurse: Shin Flood MD GPT 16 unit/L Normal 10-49 [facility] Comment on above: Performed By: #### 9 992666, 422970, 436906, 609673 #### [facility] Laboratory Services [address] [place] [address] 05749 Addiction Nurse: Shin Flood MD Osmolality [Osmolality] 292 mosm/kg Normal 275-295 [facility] Comment on above: Performed By: #### 9 532184, 612590, 038981, 762301 #### [facility] Laboratory Services [address] [place] [address] 37227 Addiction Nurse: Shin Flood MD Potassium [Moles/Vol] 4.6 mmol/L Normal 3.5-5.1 [facility] Comment on above: Result Comment: Spec imen slightly hemolyzed. Results may be affected. Performed By: #### 9 537814, 878946, 469799, 399195 #### [facility] Laboratory Services [address] [place] [address] 46341 Addiction Nurse: Shin Flood MD Protein [Mass/Vol] 7.0 g/dL Normal 5.7-8.2 [facility] Comment on above: Result Comment: Tota l Protein results may be increased in 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 Performed By: #### 9 507748, 518516, 145136, 947609 #### [facility] Laboratory Services [address] [place] [address] 11670 Addiction Nurse: Shin Flood MD Sodium [Moles/Vol] 145 mmol/L Normal 135-145 [facility] Comment on above: Performed By: #### 9 638030, 999294, 728407, 474575 #### [facility] Laboratory Services [address] [place] [address] Addiction Nurse: Shin Flood MD Urea nitrogen [Mass/Vol] 17 mg/dL Normal 9-23 [facility] Comment on above: Result Comment: - Ve nipuncture should occur prior to N-Acetyl Cysteine (NAC) or Metamizole (Sulpyrine) administration due to the potential for falsely depressed results. - Blood samples from some patients with monoclonal gammopathies may produce falsely elevated results Performed By: #### 9 966836, 079331, 783425, 626418 #### [facility] Laboratory Services [address] [place] [address] Addiction Nurse: Shin Flood MD Urea nitrogen/Creatinine [Mass ratio] 15.5 mg/mg Normal [facility] Comment on above: Performed By: #### 9 384506, 328013, 815475, 491627 #### [facility] Laboratory Services [address] [place] [address] Addiction Nurse: Shin Flood MD ED Physician Reporton 2024 [...] ureteral stone. He was previously evaluated at [facility] a week ago, where a CT scan revealed a non-obstructing proximal 8mm right ureteral stone at the right pelvic ureteral junction. The pain has acutely worsened since yesterday and became severe overnight. He reports decreased urine output last night but denies nausea or vomiting. He was previously prescribed Flomax. He has been under the care of a urologist ([facility]) but is unable to wait for his [...] Urinalysis - Pain management - Consult with [facility] RE-EVALUATION AT 14:58 - Labs unremarkable. - Urinalysis positive: 75 leukocytes, 310 WBCs. - X-ray unable to visualize the stone. RE-EVALUATION AT 15:18 - Case discussed with Harshal from [facility]. - Patient is scheduled in one week [...] antiemetic for nausea. - Close follow-up with [facility] recommended; patient instructed to call if [...] The case was discussed with Harshal from [facility], who recommended discharge with pain control [...] making a (more content not included)... Normal [facility] HEMOon 02-16-2025 DIFF? No Normal [facility] Comment on above: Performed By: #### 9 538363, 081784, 411056, 804135 #### [facility] Laboratory Services [address] [place] [address] Addiction Nurse: Shin Flood MD Erythrocyte distribution width (RBC) [Ratio] 14.3 % Normal 11.5-14.5 [facility] Comment on above: Performed By: #### 9 037813, 382876, 759048, 000923 #### [facility] Laboratory Services [address] [place] [address] Addiction Nurse: Shin Flood MD Hematocrit (Bld) [Volume fraction] 39.5 % Low 41.0-52.0 [facility] Comment on above: Performed By: #### 9 423787, 094169, 384477, 308645 #### [facility] Laboratory Services [address] [place] [address] 92050 Addiction Nurse: Shin Flood MD Hemoglobin (Bld) [Mass/Vol] 13.0 g/dL Low 13.5-17.5 [facility] Comment on above: Performed By: #### 9 066245, 383687, 077773, 612883 #### [facility] Laboratory Services [address] [place] [address] 11598 Addiction Nurse: Shin Flood MD Instr WBC 7.4 Normal [facility] Comment on above: Performed By: #### 9 728151, 042795, 794248, 269028 #### [facility] Laboratory Services [address] [place] [address] 06898 Addiction Nurse: Shin Flood MD MCH (RBC) [Entitic mass] 31.3 pg Normal 27.0-34.0 [facility] Comment on above: Performed By: #### 9 236167, 833912, 096844, 790983 #### [facility] Laboratory Services [address] [place] [address] 04006 Addiction Nurse: Shin Flood MD MCHC (RBC) [Mass/Vol] 33.0 g/dL Normal 32.0-37.0 [facility] Comment on above: Performed By: #### 9 529253, 895131, 408152, 225152 #### [facility] Laboratory Services [address] [place] [address] 43507 Addiction Nurse: Shin Flood MD MCV (RBC) [Entitic vol] 94.8 fL Normal 80.0-100.0 [facility] Comment on above: Performed By: #### 9 637439, 100125, 002994, 193085 #### [facility] Laboratory Services [address] [place], [place] [address] Addiction Nurse: Shin Flood MD MDW 16.34 Normal 13.98-20.0 0 [facility] Comment on above: Result Comment: MDW Interpretation: [...] risk of Sepsis. Performed By: #### 9 216442, 368868, 174551, 547477 #### [facility] Laboratory Services [address] [place] [address] 31127 Addiction Nurse: Shin Flood MD Nucleated RBC 0 /100WBC Normal [facility] Comment on above: Performed By: #### 9 648250, 823875, 930296, 925721 #### [facility] Laboratory Services [address] [place] [address] 90507 Addiction Nurse: Shin Flood MD Platelet 202 x10 Normal 150-450 [facility] Comment on above: Performed By: #### 9 910294, 779514, 794489, 760759 #### [facility] Laboratory Services [address] [place] [address] 03186 Addiction Nurse: Shin Flood MD Platelet mean volume (Bld) [Entitic vol] 10.4 fL Normal 7.4-10.4 [facility] Comment on above: Performed By: #### 9 620805, 708700, 291081, 445940 #### [facility] Laboratory Services [address] [place] [address] 65708 Addiction Nurse: Shin Flood MD RBC 4.17 x10 Low 4.70-6.10 [facility] Comment on above: Result Comment: Note : RBC morphology is normal unless otherwise stated. Evaluation performed only if differential is requested. Performed By: #### 9 070936, 449240, 086760, 455031 #### [facility] Laboratory Services [address] [place], [place] [address] Addiction Nurse: Shin Flood MD WBC 7.4 x10 Normal 4.5-11.0 [facility] Comment on above: Performed By: #### 9 695968, 544915, 168616, 306660 #### [facility] Laboratory Services [address] [place] [address] 24900 Addiction Nurse: Shin Flood MD LIPon 02-16-2025 Lipase [Catalytic activity/Vol] 29 U/L Normal 12-53 [facility] Comment on above: Performed By: #### 9 916141, 456025, 669564, 759229 #### [facility] Laboratory Services [address] [place] [address] 07781 Addiction Nurse: Shin Flood MD LaboratoryOrdered By: SYSTEM SYSTEM on 02-16-2025 Estimated Creatinine Clearance 85.11 mL/min [facility] Work Phone: Albumin BCP dye [Mass/Vol] 3.3 g/dL Low 3.4 - 5.0 g/dL ADM RES Albumin/Globulin [Mass ratio] 0.9 {ratio} Invalid Interpretation Code ADM RES ALP [Catalytic activity/Vol] 108 U/L Normal 45 - 117 unit/L ADM RES ALT With P-5'-P [Catalytic activity/Vol] 16 U/L Normal 10 - 49 unit/L ADM RES AST With P-5'-P [Catalytic activity/Vol] 20 U/L Normal 15 - 37 unit/L ADM RES Basophils (Bld) [#/Vol] 0.08 10*3/uL Normal 0.00 - 0.20 x1000 Dx 1600 MPL Basophils/100 WBC (Bld) 1.0 % Invalid Interpretation Code DxH 1600 MPL Bilirubin [Mass/Vol] 0.40 mg/dL Normal 0.30 - 1.20 mg/dL SW [facility] Comment on above: Interpretive Data: [...] 0.19 10*3/uL Normal 0.00 - 0.50 x1000 Dx 1600 MPL Eosinophils/100 WBC (Bld) 2.6 % Invalid Interpretation Code DxH 1600 MPL Erythrocyte distribution width (RBC) [Ratio] 14.3 % Normal 11.5 - 14.5 % DxH 1600 MPL GFR AA 1 Invalid Interpretation Code ADM RES Comment on above: Result Comment: Afri can Ukrainian GFR Calc Interpretive Data: Medical judgement is [...] (S) [Mass/Vol] 3.7 g/dL Invalid Interpretation Code ADM RES Glucose [Mass/Vol] 123 mg/dL High [...] MDW 16.34 1 Normal 13.98 - 20.00 DxH 1600 MPL Comment on above: Interpretive Data: M DW Interpretation: - For adults age 18-89 [...] 0.75 10*3/uL Normal 0.10 - 1.00 x1000 SW DxH 1600 MPL Monocytes/100 WBC (Bld) 10.1 % Invalid Interpretation Code SW DxH 1600 MPL Neutrophils (Bld) [#/Vol] 4.89 10*3/uL Normal 1.40 - 8.80 x1000 SW DxH 1600 MPL Neutrophils/100 WBC (Bld) 65.8 % Invalid Interpretation Code SW DxH 1600 MPL Nucleated RBC Auto Ql (Bld) 0 /100WBC Invalid Interpretation Code SW DxH 1600 MPL Osmolality Calc [Osmolality] 292 mOsm/kg Normal 275 - 295 mOsm/kg ADM RES Platelet mean volume (Bld) [Entitic vol] 10.4 fL Normal 7.4 - 10.4 fL Dx 1600 MPL Platelets (Bld) [#/Vol] 202 10*3/uL Normal 150 - 450 x10^3/uL Dx 1600 MPL Potassium [Moles/Vol] 4.6 mmol/L Normal 3.5 - 5.1 mmol/L [facility] Comment on above: Result Comment: Spec imen slightly hemolyzed. Results may be affected. Protein [Mass/Vol] 7.0 g/dL Normal 5.7 - 8.2 g/dL [facility] Comment on above: Interpretive Data: T otal Protein results may be increased in 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 RBC (Bld) [#/Vol] 4.17 10*6/uL Low 4.70 - 6.10 x10^6/uL Dx 1600 MPL Comment on above: Interpretive Data: N ote: RBC morphology is normal unless otherwise stated. Evaluation performed only if differential is requested. Sodium [Moles/Vol] 145 mmol/L Normal 135 - 145 mmol/L ADM RES Urea nitrogen [Mass/Vol] 17 mg/dL Normal 9 - 23 mg/dL [facility] Comment on above: Interpretive Data: - Venipuncture should occur prior to N- Acetyl Cysteine (NAC) or Metamizole (Sulpyrine) administration due to the potential for falsely depressed results. - Blood samples from some patients with monoclonal gammopathies may produce falsely elevated results Urea nitrogen/Creatinine [Mass ratio] 15.5 mg/mg Invalid Interpretation Code ADM RES WBC corrected for nucl RBC Auto (Bld) [#/Vol] 7.4 x10^3/uL Normal 4.5 - 11.0 x10^3/uL Dx 1600 MPL Color (U) Yellow (02/16/25 11:41 [...] UA UAon 02-16-2025 U MICRO Indicated Normal [facility] Comment on above: Performed By: #### 1 83233 #### [facility] Laboratory Services [address] [place], [place] [address] Addiction Nurse: Shin Flood MD Appearance, U Hazy Abnormal Clear [facility] Comment on above: Performed By: #### 1 72633 #### [facility] Laboratory Services [address] [place], [place] [address] Addiction Nurse: Shin Flood MD Bilirubin, U Negative Normal Negative [facility] Comment on above: Result Comment: Bili etienne, U: Initial positive urine bilirubin results are not confirmed. Interfering substances may include elevated urobilinogen. Trace = 0.5-1.0 mg/dL Small = 2.0-4.0 mg/dL Moderate = 6.0-8.0 mg/dL Large = 10 mg/dl and greater Performed By: #### 1 51751 #### [facility] Laboratory Services [address] [place] [address] Addiction Nurse: Shin Flood MD Blood, U > 1.0 mg/dl Abnormal Negative [facility] Comment on above: Result Comment: Bloo d, U: Trace = 0.03-0.05 mg/dL Small = 0.06-0.1 mg/dL Moderate = 0.2-0.5 mg/dL Large = 1.0 mg/dL and greater Performed By: #### 1 61574 #### [facility] Laboratory Services [address] [place] [address] Addiction Nurse: Shin Flood MD Calcium Oxalate Crystals Many Normal [facility] Comment on above: Performed By: #### 1 93959 #### [facility] Laboratory Services [address] [place], [place] [address] Addiction Nurse: Shin Flood MD Color, U Yellow Normal Yellow [facility] Comment on above: Performed By: #### 1 91645 #### [facility] Laboratory Services [address] [place], [place] [address] Addiction Nurse: Shin Flood MD Glucose Qual, U 200 mg/dl Abnormal Negative [facility] Comment on above: Performed By: #### 1 95306 #### [facility] Laboratory Services [address] [place] [address] 43492 Addiction Nurse: Shin Flood MD Ketones, U Negative Normal Negative [facility] Comment on above: Performed By: #### 1 61320 #### [facility] Laboratory Services [address] [place] [address] 97890 Addiction Nurse: Shin Flood MD Leukocyte Esterase, U 75 Emily/ul Abnormal Negative [facility] Comment on above: Result Comment: Leuk ocyte Esterase, U: Trace = 25 Emily/uL Small = 75 Emily/uL Moderate = 250 Emily/uL Large = 500 Emily/uL and greater Performed By: #### 1 99164 #### [facility] Laboratory Services [address] [place] [address] 12836 Addiction Nurse: Shin Flood MD Mucous, U Occasional Normal [facility] Comment on above: Performed By: #### 1 06674 #### [facility] Laboratory Services [address] [place] [address] 28372 Addiction Nurse: Shin Flood MD Nitrite, U Negative Normal Negative [facility] Comment on above: Performed By: #### 1 02226 #### [facility] Laboratory Services [address] [place] [address] 38960 Addiction Nurse: Shin Flood MD pH, U 5.5 Normal 4.5-8.0 [facility] Comment on above: Performed By: #### 1 10177 #### [facility] Laboratory Services [address] [place] [address] 64444 Addiction Nurse: Shin Flood MD Protein, U 20 mg/dl Abnormal Negative [facility] Comment on above: Performed By: #### 1 67543 #### [facility] Laboratory Services [address] [place] [address] 52364 Addiction Nurse: Shin Flood MD RBC/HPF, U >150 High 0-3 [facility] Comment on above: Performed By: #### 1 27374 #### [facility] Laboratory Services [address] [place] [address] Addiction Nurse: Shin Flood MD Specific [place], U 1.029 Normal 1.001-1. 03 5 [facility] Comment on above: Performed By: #### 1 08946 #### [facility] Laboratory Services [address] [place] [address] 47472 Addiction Nurse: Shin Flood MD Urobilinogen Qual, U < 2 mg/dl Normal < 2 mg/dl [facility] Comment on above: Result Comment: Urob ilinogen, U: EU/dl and mg/dl are equivalent units. Performed By: #### 1 93859 #### [facility] Laboratory Services [address] [place] [address] 92544 Addiction Nurse: Shin Flood MD WBC/HPF, U 10 #/HPF High 0-5 [facility] Comment on above: Performed By: #### 1 94085 #### [facility] Laboratory Services [address] [place] [address] 88252 Addiction Nurse: Shin Flood MD XR ABDOMEN 1V PORTABLEon [...] ENID OG MD Signed Out: 02/16/25 14:21:41 Normal [facility] ALLIED HEALTHon 02-07-2025 ALLIED HEALTH HNO ID: [id number] Author: EMMA JULES RT(R) Service: Radiology Author [...] PATIENT PRESENTS WITH AN IMPLANTABLE OR ATTACHED AIR INTELLIGENCE OFFICER: No ALLERGIES: Reviewed and unchanged CONTRAST ALLERGY: [...] February 07, 2025 TIME: 5:44 PM Normal [facility] Basic metabolic 2000 panelon 02-07-2025 Anion gap [Moles/Vol] 11 mmol/L Normal 8-15 [facility] Comment on above: Order Comment: Speci men Type: BLOOD SPECIMENOrdering Facility: [facility] Address: [address] [place] [address] Performed By: #### 2 4321-2 ####[facility] [id number] [place] [address] [place] Calcium [Mass/Vol] 9.4 mg/dL Normal 8.5-10.2 [facility] Comment on above: Order Comment: Speci men Type: BLOOD SPECIMENOrdering Facility: [facility] Address: [address] [place] [address] Performed By: #### 2 4321-2 ####[facility] [id number] [facility] [place] [address] [place] Chloride [Moles/Vol] 101 mmol/L Normal 98-107 [facility] Comment on above: Order Comment: Speci men Type: BLOOD SPECIMENOrdering Facility: [facility] Address: [address] [place] [address] Performed By: #### 2 4321-2 ####[facility] [id number] [facility] [place] [address] [place] CO2 [Moles/Vol] 27 mmol/L Normal 22-30 [facility] Comment on above: Order Comment: Speci men Type: BLOOD SPECIMENOrdering Facility: [facility] Address: [address] [place] [address] Performed By: #### 2 4321-2 ####[facility] [id number] [facility] [place] [address] [place] Creatinine [Mass/Vol] 1.13 mg/dL Normal 0.73-1.22 [facility] Comment on above: Order Comment: Speci men Type: BLOOD SPECIMENOrdering Facility: [facility] Address: [address] [place] [address] Performed By: #### 2 4321-2 ####[facility] [id number] [place] [address] [place] eGFRcr SerPlBld CKD-EPI 2020 75 mL/min/1.73m??? Normal >=60 [facility] Comment on above: Order Comment: Lucas olson Type: BLOOD SPECIMENOrdering Facility: [facility] Address: [address] [place] [address] Result Comment: Delaney mated Glomerular Filtration Rate [...] actual GFR. Performed By: #### 2 4321-2 ####[facility]CLIA [id number] [place] [address] [place] Glucose [Mass/Vol] 119 mg/dL High 74-99 [facility] Comment on above: Order Comment: Lucas olson Type: BLOOD SPECIMENOrdering Facility: [facility] Address: [address] [place] [address] Result Comment: The [place] Diabetes Association (ADA) provides guidance for cutoff [...] Standards of Medical Care in Diabetes 2016, [place] Diabetes Association. Diabetes Care. 2016.39(Suppl 1). Performed By: #### 2 4321-2 ####[facility] LABCLIA [id number] [place] [address] [place] Potassium [Moles/Vol] 4.5 mmol/L Normal 3.7-5.1 [facility] Comment on above: Order Comment: Speci men Type: BLOOD SPECIMENOrdering Facility: [facility] Address: [address] [place] [address] Performed By: #### 2 4321-2 ####[facility] [id number] [place] [address] [facility] Sodium [Moles/Vol] 139 mmol/L Normal 136-144 [facility] Comment on above: Order Comment: Speci men Type: BLOOD SPECIMENOrdering Facility: [facility] Address: [address] [place] [address] Performed By: #### 2 4321-2 ####[facility] [id number] [place] [address] [place] [facility] Urea nitrogen [Mass/Vol] 14 mg/dL Normal 9-24 [facility] Comment on above: Order Comment: Speci men Type: BLOOD SPECIMENOrdering Facility: [facility] Address: [address] [place] [address] Performed By: #### 2 4321-2 ####[facility] [id number] [place] [address] [place] CBC panel Auto (Bld)on 02-07 Erythrocyte distribution width (RBC) [Ratio] 13.7 % Normal 11.5-15.0 [facility] Comment on above: Order Comment: Speci men Type: BLOOD SPECIMENOrdering Facility: [facility] Address: [address] [place] [address] Performed By: #### 5 8410-2 ####[facility] [id number] [place] [address] [facility] Hematocrit (Bld) [Volume fraction] 41.2 % Normal 39.0-51.0 [facility] Comment on above: Order Comment: Speci men Type: BLOOD SPECIMENOrdering Facility: [facility] Address: [address] [place] [address] Performed By: #### 5 8410-2 ####[facility] [id number] [place] [address] [facility] Hemoglobin (Bld) [Mass/Vol] 12.9 g/dL Low 13.0-17.0 [facility] Comment on above: Order Comment: Speci men Type: BLOOD SPECIMENOrdering Facility: [facility] Address: [address] [place], [place] [address] Performed By: #### 5 8410-2 ####[facility] LABCLIA [id number] [place] [address] [place] [facility] MCH (RBC) [Entitic mass] 30.5 pg Normal 26.0-34.0 [facility] Comment on above: Order Comment: Speci men Type: BLOOD SPECIMENOrdering Facility: [facility] Address: [address] [place] [address] Performed By: #### 5 8410-2 ####[facility] LABCLIA [id number] MCHC (RBC) [Mass/Vol] 31.3 g/dL Normal 30.5-36.0 [facility] Comment on above: Order Comment: Speci men Type: BLOOD SPECIMENOrdering Facility: [facility] Address: [address] [place] [address] Performed By: #### 5 8410-2 ####[facility] LABCLIA [id number] [place] [address] [place] MCV (RBC) [Entitic vol] 97.4 fL Normal 80.0-100.0 [facility] Comment on above: Order Comment: Speci men Type: BLOOD SPECIMENOrdering Facility: [facility] Address: [address] [place] [address] Performed By: #### 5 8410-2 ####[facility] LABCLIA [id number] [address] Platelet mean volume (Bld) [Entitic vol] 11.2 fL Normal 9.0-12.7 [facility] Comment on above: Order Comment: Speci men Type: BLOOD SPECIMENOrdering Facility: [facility] Address: [address] [place], [place] [id number] Performed By: #### 5 8410-2 ####[facility] LABCLIA [id number] [place] [address] [facility] Platelets (Bld) [#/Vol] 227 10*3/uL Normal 150-400 [facility] Comment on above: Order Comment: Speci men Type: BLOOD SPECIMENOrdering Facility: [facility] Address: [address] [place] [address] Performed By: #### 5 8410-2 ####[facility] LABCLIA [id number] [place] [address] [facility] RBC (Bld) [#/Vol] 4.23 10*6/uL Normal 4.20-6.00 [facility] Comment on above: Order Comment: Speci men Type: BLOOD SPECIMENOrdering Facility: [facility] Address: [address] [place] [address] Performed By: #### 5 8410-2 ####[facility] LABCLIA [id number] [place] [address] [facility] [place] WBC (Bld) [#/Vol] 8.92 10*3/uL Normal 3.70-11.00 [facility] Comment on above: Order Comment: Speci men Type: BLOOD SPECIMENOrdering Facility: [facility] Address: [address] [place] [address] Performed By: #### 5 8410-2 ####[facility] LABCLIA [id number] [place] [address] [facility] [address] ABD/PEL W IVCONon 025 CT ABD/PEL W IVCON * * *Final Report* * * DATE OF EXAM: Feb 07 2025 5:43PM [facility] 0530 - CT ABD/PEL W IVCON / [...] cm stone at the right pelviureteral junction. Virtualization Architect: PAUL Transcribe Date/Time: Feb 07 2025 7:47P Dictated by : JUNIE FERRARO MD This examination was interpreted and the report reviewed and electronically signed by: JUNIE FERRARO MD on Feb 07 2025 7:53PM EST [id number] Normal [facility] ED NOTEon 02-07-2025 ED NOTE HNO ID: [id number] Author: LISSET MACIAS RN Service: Emergency Medicine [...] anything else to help you? No Normal [facility] ED NOTE HNO ID: [id number] Author: MANDO RINCON, RN Service: Nursing Author Type: Registered Nurse Type: ED Notes Filed: 02/07/2025 20:25 Note Text: Pt verbalizes understanding of discharge instructions. Pt able to ambulate out of ED. 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 Trans (more content not included)... Normal [facility] Urinalysis complete panel (U )on 02-07-2025 Bacteria LM.HPF (Urine sed) [#/Area] Few Abnormal None Seen [facility] Comment on above: Order Comment: Speci men Type: URINE SPECIMENOrdering Facility: [facility] Address: [address] [place] [address] Performed By: #### 2 4356-8 ####[facility] LABCLIA [id number] [place] [id number] [place] Bilirubin Ql (U) Negative Normal Negative [facility] Comment on above: Order Comment: Speci men Type: URINE SPECIMENOrdering Facility: [facility] Address: [address] [place] [address] Performed By: #### 2 4356-8 ####[facility]CL[facility] [id number] [facility] [place] [address] [facility] [place] Clarity (Unsp spec) Cloudy Abnormal Clear [facility] Comment on above: Order Comment: Speci men Type: URINE SPECIMENOrdering Facility: [facility] Address: [address] [place] [address] Performed By: #### 2 4356-8 ####[facility] LABCLIA [id number] [facility] [place] [address] [place] Color (U) Brown Abnormal Yellow [facility] Comment on above: Order Comment: Speci men Type: URINE SPECIMENOrdering Facility: [facility] Address: [address] [place] [address] Performed By: #### 2 4356-8 ####[facility] LABCLIA [id number] [place] [address] [facility] Glucose Test strip (U) [Mass/Vol] Negative Normal Negative [facility] Comment on above: Order Comment: Speci men Type: URINE SPECIMENOrdering Facility: [facility] Address: [address] [place] [address] Performed By: #### 2 4356-8 ####[facility] LABCLIA [id number] [place] [address] [place] Hemoglobin Ql (U) 3+ Abnormal Negative [facility] Comment on above: Order Comment: Speci men Type: URINE SPECIMENOrdering Facility: [facility] Address: [address] [place] [address] Performed By: #### 2 4356-8 ####[facility] LABCLIA [id number] [place] [address] [facility] [place] Ketones Ql (U) Negative Normal Negative [facility] Comment on above: Order Comment: Speci men Type: URINE SPECIMENOrdering Facility: [facility] Address: [address] [place] [address] Performed By: #### 2 4356-8 ####[facility] LABCLIA [id number] [place] [address] [facility] Leukocyte esterase Test strip Ql (U) Negative Normal Negative [facility] Comment on above: Order Comment: Speci men Type: URINE SPECIMENOrdering Facility: [facility] Address: [address] [place] [address] Performed By: #### 2 4356-8 ####[facility] LABCLIA [id number] [place] [address] [place] [facility] Nitrite Ql (U) Negative Normal Negative [facility] Comment on above: Order Comment: Speci men Type: URINE SPECIMENOrdering Facility: [facility] Address: [address] [place] [address] Performed By: #### 2 4356-8 ####[facility] LABCLIA [id number] [place] [address] [facility] pH (U) 5.5 [pH] Normal 5.0-8.0 [facility] Comment on above: Order Comment: Speci men Type: URINE SPECIMENOrdering Facility: [facility] Address: [address] [place] [address] Performed By: #### 2 4356-8 ####[facility] LABCLIA [id number] [place] [address] [facility] Protein (U) [Mass/Vol] 2+ Abnormal Negative [facility] Comment on above: Order Comment: Speci men Type: URINE SPECIMENOrdering Facility: [facility] Address: [address] [place] [address] Performed By: #### 2 4356-8 ####[facility] LABCLIA [id number] [place] [address] [facility] [place] RBC LM.HPF (Urine sed) [#/Area] /[HPF] Abnormal 0-3 /HPF [facility] Comment on above: Order Comment: Speci men Type: URINE SPECIMENOrdering Facility: [facility] Address: [address] [place] [address] Performed By: #### 2 4356-8 ####[facility] LABCLIA [id number] [place] [address] [place] Specific gravity (U) [Rel density] 1.020 Normal 1.005-1.03 0 [facility] Comment on above: Order Comment: Speci men Type: URINE SPECIMENOrdering Facility: [facility] Address: [address] [place] [address] Performed By: #### 2 4356-8 ####[facility] LABIA [id number] [place] [address] [facility] Urobilinogen Ql (U) 0.2 EU/dL Normal 0.2-1.0 EU/dL [facility] Comment on above: Order Comment: Speci men Type: URINE SPECIMENOrdering Facility: [facility] Address: [address] [place] [address] Performed By: #### 2 4356-8 ####[facility] LABIA [id number] [place] [id number] [facility] WBC LM.HPF (Urine sed) [#/Area] 0-5 /HPF Normal 0-5 /HPF [facility] Comment on above: Order Comment: Speci men Type: URINE SPECIMENOrdering Facility: [facility] Address: [address] [place] [address] Performed By: #### 2 4356-8 ####[facility] LABIA [id number] [place] [id number] [facility] ED NOTEon 11-17-2024 ED NOTE HNO ID: [id number] Author: MALIKA KLINE RN Service: ? Author Type: Registered Nurse Type: ED Notes Filed: 11/17/2024 07:49 Note Text: Pt given discharge instructions, pt questions answered and pt denies any further questions at time of discharge. Pt ambulates out of dept with a steady gait. [facility] ED NOTE HNO ID: [id number] Author: MALIKA KLINE RN Service: ? Author Type: Registered Nurse Type: ED Notes Filed: 11/17/2024 07:30 Note Text: Dr vivar at bedside for exam with nurse and spouse present in room Normal [facility] ED NOTE HNO ID: [id number] Author: MALIKA KLINE, SJ Service: ? Author Type: Registered Nurse Type: ED Notes Filed: 11/17/2024 07:18 Note Text: Pt noticed swelling to his scrotum last night, swelling and pain are worse this am Normal [facility] ED PROV NOTEon 11-17-2024 ED PROV NOTE HNO ID: [id number] Author: DENY VIVAR MD Service: Emergency Medicine [...] Raynaud phenomenon - Rheumatoid arthritis of hand (FORMERLY [facility]) PAST SURGICAL HISTORY Procedure Laterality Date - APPENDECTOMY 06/2007 - CHOLECYSTECTOMY 05/2004 - COLONOSCOPY FLX DX W/COLLJ SPEC WHEN PFRMD 2004 - ESOPHAGOGASTRODUODENOSCOPY TRANSORAL DIAGNOSTIC 2004 - INCISION AND DRAINAGE OF WOUND (IANDD) HX 03/02/[address] 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 Normal [facility] CBC W/Diff, Automatedon 05-2 -2024 Absolute Lymph 2.12 X10 3/uL Normal 0.83-4.51 [facility] Comment on above: Performed By: #### L 100.0100, L501.9520 #### [facility] [address] [place], [address] Absolute Neut 5.9 X10 3/uL Normal 2.0-7.7 [facility] Comment on above: Performed By: #### L 100.0100, L501.9520 #### [facility] [address] [place], [address] Basophils/100 WBC (Bld) 0.7 % Normal 0-1 [facility] Comment on above: Performed By: #### L 100.0100, L501.9520 #### [facility] [address] [place], [address] Eosinophils/100 WBC (Bld) 2.3 % Normal 0-5 [facility] Comment on above: Performed By: #### L 100.0100, L501.9520 #### [facility] [address] [place], [address] Erythrocyte distribution width (RBC) [Ratio] 14.2 % Normal 11.6-14.6 [facility] Comment on above: Performed By: #### L 100.0100, L501.9520 #### [facility] [address] [place], [address] Hematocrit (Bld) [Volume fraction] 44.0 % Normal 40-54 [facility] Comment on above: Performed By: #### L 100.0100, L501.9520 #### [facility] [address] [place], [address] Hemoglobin (Bld) [Mass/Vol] 14.2 g/dL Normal 13.0-16.5 [facility] Comment on above: Performed By: #### L 100.0100, L501.9520 #### [facility] [address] [place], [address] IG% 0.300 Normal 0.0-0.9 [facility] Comment on above: Result Comment: IG% - Immature Granulocytes (promyelocytes, myelocytes and metamyelocytes) > 1% indicates that a LEFT SHIFT is Present. Performed By: #### L 100.0100, L501.9520 #### [facility] [address] [place], [address] Lymphocytes/100 WBC (Bld) 22.6 % Normal 19-41 [facility] Comment on above: Performed By: #### L 100.0100, L501.9520 #### [facility] [address] [place], [address] MCH (RBC) [Entitic mass] 30.7 pg Normal 27.0-32.0 [facility] Comment on above: Performed By: #### L 100.0100, L501.9520 #### [facility] [address] [place], [address] MCHC (RBC) [Mass/Vol] 32.3 g/dL Normal 32-36 [facility] Comment on above: Performed By: #### L 100.0100, L501.20 #### [facility] [address] [place], [address] MCV (RBC) [Entitic vol] 95.2 fL High 80-94 [facility] Comment on above: Performed By: #### L 100.0100, L501.9520 #### [facility] [address] [place], [address] Monocytes/100 WBC (Bld) 11.0 % High 0-10 [facility] Comment on above: Performed By: #### L 100.0100, L501.9520 #### [facility] [address] [place], [address] Neutrophils/100 WBC (Bld) 63.1 % Normal 47-70 [facility] Comment on above: Performed By: #### L 100.0100, L501.20 #### [facility] [address] [place], [address] Nucleated RBC (Bld) [#/Vol] 0 10*3/uL Normal 0-5 [facility] Comment on above: Performed By: #### L 100.0100, L501.20 #### [facility] [address] [place], [address] Platelet mean volume (Bld) [Entitic vol] 12.7 fL High 6.2-12.0 [facility] Comment on above: Performed By: #### L 100.0100, L501.9520 #### [facility] [address] [place], [address] Platelets (Bld) [#/Vol] 278 10*3/uL Normal 150-450 [facility] Comment on above: Performed By: #### L 100.0100, L501.9520 #### [facility] [address] [place], [address] RBC (Bld) [#/Vol] 4.62 10*6/uL Normal 4.6-6.2 [facility] Comment on above: Performed By: #### L 100.0100, L501.9520 #### [facility] [address] [place], [address] RDW SD 49.6 fl High 35.1-43.9 [facility] Comment on above: Performed By: #### L 100.0100, L501.9520 #### [facility] [address] [place], [address] WBC (Bld) [#/Vol] 9.4 10*3/uL Normal 4.4-11.[address] [facility] Comment on above: Performed By: #### L 100.0100, L501.9520 #### [facility] [address] [place], [address] Thyroid Stim Hormone (TSH)on 10-24-2024 TSH 3.290 uIU/mL Normal 0.300-4.20 0 [facility] Comment on above: Performed By: #### L 100.0100, L501.9520 #### [facility] [address] [place], [address] Absolute lymphocyte countOrd ered By: Jenny Live on 10-23-2024 Lymphocytes Auto (Unsp spec) [#/Vol] 2.12 10*3/uL 0.83-4.51 [facility] Absolute neutrophil countOrd ered By: Jenny Live on 10-23-2024 Neutrophils (Bld) [#/Vol] 5.9 10*3/uL 2.0-7.7 [facility] Automated lymphocyte count a s percentage of total leukocytesOrdered By: Jenny Live on 10-23-2024 Lymphocytes/100 WBC Auto (Unsp spec) 22.6 % 19-41 [facility] Basophil percentageOrdered B y: Jenny Live on 10-23-2024 Basophils/100 WBC (Bld) 0.7 % 0-1 [facility] Eosinophil percentageOrdered By: Jenny Live on 10-23-2024 Eosinophils/100 WBC (Bld) 2.3 % 0-5 [facility] Erythrocyte distribution wid th ratioOrdered By: Jenny Live on 10-23-2024 Erythrocyte distribution width (RBC) [Ratio] 14.2 % 11.6-14.6 [facility] Erythrocyte distribution wid th standard deviationOrdered By: Jenny Live on 10-23-2024 Erythrocyte distribution width (RBC) [Ratio] 49.6 fl High 35.1-43.9 [facility] Hematocrit Auto (Bld) [Volum e fraction]Ordered By: Jenny Live on 10-23-2024 Hematocrit (Bld) [Volume fraction] 44.0 % 40-54 [facility] Hemoglobin measurementOrdere d By: Jenny Live on 10-23-2024 Hemoglobin (Bld) [Mass/Vol] 14.2 g/dL 13.0-16.5 [facility] Immature granulocytes/100 WB C Auto (Bld)Ordered By: Jenny Live on 10-23-2024 Immature granulocytes/100 WBC (Bld) 0.300 % 0.0-0.9 [facility] Comment on above: IG% - Immature Granu locytes (promyelocytes, myelocytes and metamyelocytes) > 1% indicates that a LEFT SHIFT is Present. MCV (mean corpuscular volume ) determinationOrdered By: Jenny Live on 10-23-2024 MCV (RBC) [Entitic vol] 95.2 fL High 80-94 [facility] Mean corpuscular hemoglobin (MCH) determinationOrdered By: Jenny Live on 10-23-2024 MCH (RBC) [Entitic mass] 30.7 pg 27.0-32.0 [facility] Mean corpuscular hemoglobin concentration (MCHC) determinationOrdered By: Jenny Live on 10-23-2024 MCHC (RBC) [Mass/Vol] 32.3 g/dL 32-36 [facility] Mean platelet volume determi nationOrdered By: Jenny Live on 10-23-2024 Platelet mean volume (Bld) [Entitic vol] 12.7 fL High 6.2-12.0 [facility] Monocyte percentageOrdered B y: Jenny Live on 10-23-2024 Monocytes/100 WBC (Bld) 11.0 % High 0-10 [facility] Neutrophil percentageOrdered By: Jenny Live on 10-23-2024 Neutrophils/100 WBC (Bld) 63.1 % 47-70 [facility] Nucleated red blood cell per centageOrdered By: Jenny Live on 10-23-2024 Nucleated RBC/100 WBC (Bld) [Ratio] 0 % 0-5 [facility] Platelet countOrdered By: Do ra Live on 10-23-2024 Platelets (Bld) [#/Vol] 278 10*3/uL 150-450 [facility] RBC Auto (Bld) [#/Vol]Ordere d By: Jenny Live on 10-23-2024 RBC (Bld) [#/Vol] 4.62 10*6/uL 4.6-6.2 [facility] TSH DL <= 0.005 mIU/L QnOrde red By: Jenny Live on 10-23-2024 TSH Qn 3.290 uIU/mL 0.300-4.20 0 [facility] White blood cell (WBC) count Ordered By: Jenny Live on 10-23-2024 WBC (Bld) [#/Vol] 9.4 10*3/uL 4.4-11.[address] [facility] Absolute lymphocyte countOrd ered By: Jenny Live on 08-22-2024 Lymphocytes Auto (Unsp spec) [#/Vol] 1.80 10*3/uL 0.83-4.51 [facility] Absolute neutrophil countOrd ered By: Jenny Live on 08-22-2024 Neutrophils (Bld) [#/Vol] 8.7 10*3/uL High 2.0-7.7 [facility] Anion gap in Serum or Plasma Ordered By: Jenny Live on 08-22-2024 Anion gap [Moles/Vol] 13 mmol/L 5-15 [facility] Automated lymphocyte count a s percentage of total leukocytesOrdered By: Jenny Live on 08-22-2024 Lymphocytes/100 WBC Auto (Unsp spec) 15.3 % Low 19-41 [facility] BUN/creatinine ratioOrdered By: Jenny Live on 08-22-2024 Urea nitrogen/Creatinine [Mass ratio] 10.2 mg/mg 10-20 [facility] Basophil percentageOrdered B y: Jenny Live on 08-22-2024 Basophils/100 WBC (Bld) 0.5 % 0-1 [facility] Bilirubin, totalOrdered By: Jenny Live on 08-22-2024 Bilirubin [Mass/Vol] 0.28 mg/dL 0.00-1.30 [facility] CBC W/Diff, Automatedon 08-03 Absolute Lymph 1.80 X10 3/uL Normal 0.83-4.51 [facility] Comment on above: Performed By: #### L 100.0100, L501.9520 #### [facility] [address] [place], [address] Absolute Neut 8.7 X10 3/uL High 2.0-7.7 [facility] Comment on above: Performed By: #### L 100.0100, L501.9520 #### [facility] [address] [place], [address] Basophils/100 WBC (Bld) 0.5 % Normal 0-1 [facility] Comment on above: Performed By: #### L 100.0100, L501.9520 #### [facility] [address] [place], [address] Eosinophils/100 WBC (Bld) 1.1 % Normal 0-5 [facility] Comment on above: Performed By: #### L 100.0100, L501.9520 #### [facility] [address] [place], [address] Erythrocyte distribution width (RBC) [Ratio] 14.1 % Normal 11.6-14.6 [facility] Comment on above: Performed By: #### L 100.0100, L501.20 #### [facility] [address] [place], [address] Hematocrit (Bld) [Volume fraction] 42.4 % Normal 40-54 [facility] Comment on above: Performed By: #### L 100.0100, L5.9520 #### [facility] [address] [place], [address] Hemoglobin (Bld) [Mass/Vol] 13.9 g/dL Normal 13.0-16.5 [facility] Comment on above: Performed By: #### L 100.0100, L5.20 #### [facility] [address] [place], [address] IG% 0.300 Normal 0.0-0.9 [facility] Comment on above: Result Comment: IG% - Immature Granulocytes (promyelocytes, myelocytes and metamyelocytes) > 1% indicates that a LEFT SHIFT is Present. Performed By: #### L 100.0100, L5.20 #### [facility] [address] [place], [address] Lymphocytes/100 WBC (Bld) 15.3 % Low 19-41 [facility] Comment on above: Performed By: #### L 100.0100, L5.20 #### [facility] [address] [place], [address] MCH (RBC) [Entitic mass] 31.0 pg Normal 27.0-32.0 [facility] Comment on above: Performed By: #### L 100.0100, L5.20 #### [facility] [address] [place], [address] MCHC (RBC) [Mass/Vol] 32.8 g/dL Normal 32-36 [facility] Comment on above: Performed By: #### L 100.0100, L5.20 #### [facility] [address] [place], [address] MCV (RBC) [Entitic vol] 94.4 fL High 80-94 [facility] Comment on above: Performed By: #### L 100.0100, L501.9520 #### [facility] [address] [place], [address] Monocytes/100 WBC (Bld) 8.7 % Normal 0-10 [facility] Comment on above: Performed By: #### L 100.0100, L501.9520 #### [facility] [address] [place], [address] Neutrophils/100 WBC (Bld) 74.1 % High 47-70 [facility] Comment on above: Performed By: #### L 100.0100, L501.20 #### [facility] [address] [place], [address] Nucleated RBC (Bld) [#/Vol] 0 10*3/uL Normal 0-5 [facility] Comment on above: Performed By: #### L 100.0100, L501.20 #### [facility] [address] [place], [address] Platelet mean volume (Bld) [Entitic vol] 12.3 fL High 6.2-12.0 [facility] Comment on above: Performed By: #### L 100.0100, L501.20 #### [facility] [address] [place], [address] Platelets (Bld) [#/Vol] 260 10*3/uL Normal 150-450 [facility] Comment on above: Performed By: #### L 100.0100, L501.9520 #### [facility] [address] [place], [address] RBC (Bld) [#/Vol] 4.49 10*6/uL Low 4.6-6.2 [facility] Comment on above: Performed By: #### L 100.0100, L501.9520 #### [facility] [address] [place], [address] RDW SD 48.7 fl High 35.1-43.9 [facility] Comment on above: Performed By: #### L 100.0100, L5.9520 #### [facility] [address] [place], [address] WBC (Bld) [#/Vol] 11.8 10*3/uL High 4.4-11.0 [facility] Comment on above: Performed By: #### L 100.0100, L5.20 #### [facility] [address] [place], [address] Carbon dioxide, total [Moles /volume] in Central venous bloodOrdered By: Jenny Live on 08-22-2024 CO2 [Moles/Vol] 25.1 mmol/L 21.0-32.0 [facility] Chloride assayOrdered By: Do ra Live on 08-22-2024 Chloride [Moles/Vol] 101 mmol/L 98-108 [facility] Comprehensive Metabolic Prof ilon 08-22-2024 Albumin [Mass/Vol] 4.1 g/dL Normal 3.5-5.[address] [facility] Comment on above: Performed By: #### L 100.0100, L5.20 #### [facility] [address] [place], [address] Albumin/Globulin [Mass ratio] 1.2 {ratio} Normal 0.9-2.4 [facility] Comment on above: Performed By: #### L 100.0100, L5.9520 #### [facility] [address] [place], [address] ALK PHOS 114 U/L Normal 40-129 [facility] Comment on above: Performed By: #### L 100.0100, L501.9520 #### [facility] [address] [place], [address] ALT [Catalytic activity/Vol] 18 U/L Normal <=46 [facility] Comment on above: Performed By: #### L 100.0100, L501.9520 #### [facility] [address] [place], [address] AST [Catalytic activity/Vol] 24 U/L Normal <=37 [facility] Comment on above: Performed By: #### L 100.0100, L501.9520 #### [facility] [address] [place], [address] Bilirubin [Mass/Vol] 0.28 mg/dL Normal 0.00-1.30 [facility] Comment on above: Performed By: #### L 100.0100, L501.9520 #### [facility] [address] [place], [address] BUN/CRE 10.2 RATIO Normal 10-20 [facility] Comment on above: Performed By: #### L 100.0100, L501.9520 #### [facility] [address] [place], [address] Calcium [Mass/Vol] 9.4 mg/dL Normal 7.6-11.[address] [facility] Comment on above: Performed By: #### L 100.0100, L501.9520 #### [facility] [address] [place], [address] Chloride [Moles/Vol] 101 mmol/L Normal 98-108 [facility] Comment on above: Performed By: #### L 100.0100, L501.9520 #### [facility] [address] [place], [address] CO2 [Moles/Vol] 25.1 mmol/L Normal 21.0-32.0 [facility] Comment on above: Performed By: #### L 100.0100, L501.9520 #### [facility] [address] [place], [address] Creatinine [Mass/Vol] 1.49 mg/dL High 0.70-1.20 [facility] Comment on above: Performed By: #### L 100.0100, L501.9520 #### [facility] [address] [place], [address] GAP 13 Normal 5-15 [facility] Comment on above: Performed By: #### L 100.0100, [id number] #### [facility] [address] [place], [address] GFR/1.73 sq M.predicted among non-blacks MDRD (S/P/Bld) [Vol rate/Area] 54 mL/min/{1.73_m2} Low >60 [facility] Comment on above: Result Comment: mL/m in/1.73m2 CKD-EPI Creatinine Equation (2020) Performed By: #### L 100.0100, [id number] #### [facility] [address] [place], [address] Globulin (S) [Mass/Vol] 3.3 g/dL Normal 2.2-4.2 [facility] Comment on above: Performed By: #### L 100.0100, L501.9520 #### [facility] [address] [place], [address] Glucose [Mass/Vol] 213 mg/dL High 70-[address] [facility] Comment on above: Performed By: #### L 100.0100, L501.9520 #### [facility] [address] [place], [address] Potassium [Moles/Vol] 4.4 mmol/L Normal 3.3-5.1 [facility] Comment on above: Performed By: #### L 100.0100, L501.9520 #### [facility] [address] [place], [address] Sodium [Moles/Vol] 138 mmol/L Normal 133-[address] [facility] Comment on above: Performed By: #### L 100.0100, L501.9520 #### [facility] [address] [place], [address] T PROT 7.4 g/dL Normal 5.9-8.4 [facility] Comment on above: Performed By: #### L 100.0100, L501.9520 #### [facility] [address] [place], [address] Urea nitrogen [Mass/Vol] 15 mg/dL Normal 4-19 [facility] Comment on above: Performed By: #### L 100.0100, L501.9520 #### [facility] [address] [place], [address] Eosinophil percentageOrdered By: Jenny Liev on 08-22-2024 Eosinophils/100 WBC (Bld) 1.1 % 0-5 [facility] Erythrocyte distribution wid th ratioOrdered By: Jenny Live on 08-22-2024 Erythrocyte distribution width (RBC) [Ratio] 14.1 % 11.6-14.6 [facility] Erythrocyte distribution wid th standard deviationOrdered By: Jenny Live on 08-22-2024 Erythrocyte distribution width (RBC) [Entitic vol] 48.7 fL High 35.1-43.9 [facility] Erythrocyte distribution width (RBC) [Ratio] 48.7 fl High 35.1-43.9 [facility] GFR/1.73 sq M.predicted jud g non-blacks MDRD (S/P/Bld) [Vol rate/Area]Ordered By: Jenny Live on 08-22-2024 Estimated GFR (MDRD) Non-Af Amer 54 Low >60 [facility] Comment on above: mL/min/1.73m2 CKD-EP I Creatinine Equation (2020) Glomerular filtration rate ( GFR) estimation/1.73 sq m using serum, plasma, or whole bOrdered By: Jenny Live on 08-22-2024 GFR/1.73 sq M.predicted among non-blacks MDRD (S/P/Bld) [Vol rate/Area] 54 mL/min/{1.73_m2} Low >60 [facility] Comment on above: mL/min/1.73m2 CKD-EP I Creatinine Equation (2020) Hematocrit Auto (Bld) [Volum e fraction]Ordered By: Jenny Live on 08-22-2024 Hematocrit (Bld) [Volume fraction] 42.4 % 40-54 [facility] Hemoglobin A1con 08-22-2024 HbA1c (Bld) [Mass fraction] 8.4 % Normal <=5.6 [facility] Comment on above: Performed By: #### L 100.0100, L501.9520 #### [facility] [address] [place] [address]. [place], [address] Hemoglobin A1c percentageOrd ered By: Jenny Live on 08-22-2024 HbA1c (Bld) [Mass fraction] 8.4 % >5.7 [facility] Hemoglobin measurementOrdere d By: Jenny Live on 08-22-2024 Hemoglobin (Bld) [Mass/Vol] 13.9 g/dL 13.0-16.5 [facility] Immature granulocytes/100 WB C Auto (Bld)Ordered By: Jenny Live on 08-22-2024 Immature granulocytes/100 WBC (Bld) 0.300 % 0.0-0.9 [facility] Comment on above: IG% - Immature Granu locytes (promyelocytes, myelocytes and metamyelocytes) > 1% indicates that a LEFT SHIFT is Present. Laboratory - Chemistry and C hemistry - challengeOrdered By: Jenny Live on 08-22-2024 AST [Catalytic activity/Vol] 24 U/L <38 [facility] Lymphocytes Auto (Unsp spec) [#/Vol]Ordered By: Jenny Live on 08-22-2024 Lymphocytes (Bld) [#/Vol] 1.80 10*3/uL 0.83-4.51 [facility] Lymphocytes/100 WBC Auto (Un sp spec)Ordered By: Jenny Live on 08-22-2024 Lymphocytes/100 WBC (Bld) 15.3 % Low 19-41 [facility] MCV (mean corpuscular volume ) determinationOrdered By: Jenny Live on 08-22-2024 MCV (RBC) [Entitic vol] 94.4 fL High 80-94 [facility] Mean corpuscular hemoglobin (MCH) determinationOrdered By: Jenny Live on 08-22-2024 MCH (RBC) [Entitic mass] 31.0 pg 27.0-32.0 [facility] Mean corpuscular hemoglobin concentration (MCHC) determinationOrdered By: Jenny Live on 08-22-2024 MCHC (RBC) [Mass/Vol] 32.8 g/dL 32-36 [facility] Mean platelet volume determi nationOrdered By: Jenny Live on 08-22-2024 Platelet mean volume (Bld) [Entitic vol] 12.3 fL High 6.2-12.0 [facility] Monocyte percentageOrdered B y: Jenny Live on 08-22-2024 Monocytes/100 WBC (Bld) 8.7 % 0-10 [facility] Neutrophil percentageOrdered By: Jenny Live on 08-22-2024 Neutrophils/100 WBC (Bld) 74.1 % High 47-70 [facility] Nucleated red blood cell per centageOrdered By: Jenny Live on 08-22-2024 Nucleated RBC/100 WBC (Bld) [Ratio] 0 % 0-5 [facility] Platelet countOrdered By: Do ra Live on 08-22-2024 Platelets (Bld) [#/Vol] 260 10*3/uL 150-450 [facility] Potassium (Unsp spec) [Mass/ Vol]Ordered By: Jenny Live on 08-22-2024 Potassium [Moles/Vol] 4.4 mmol/L 3.3-5.1 [facility] Potassium measurement (mass/ volume)Ordered By: Jenny Live on 08-22-2024 Potassium (Unsp spec) [Mass/Vol] 4.4 mmol/L 3.3-5.1 [facility] RBC Auto (Bld) [#/Vol]Ordere d By: Jenny Live on 08-22-2024 RBC (Bld) [#/Vol] 4.49 10*6/uL Low 4.6-6.2 [facility] Serum creatinine measurement (mass/volume)Ordered By: Jenny Live on 08-22-2024 Creatinine [Mass/Vol] 1.49 mg/dL High 0.70-1.20 [facility] Serum globulin measurementOr dered By: Jenny Live on 08-22-2024 Globulin (S) [Mass/Vol] 3.3 g/dL 2.2-4.2 [facility] Serum glucose measurement (m ass/volume)Ordered By: Jenny Live on 08-22-2024 Glucose [Mass/Vol] 213 mg/dL High 70-[address] [facility] Serum or plasma alanine matos otransferase (ALT) measurementOrdered By: Jenny Live on 08-22-2024 ALT [Catalytic activity/Vol] 18 U/L <47 [facility] Serum or plasma albumin daly urement (mass/volume)Ordered By: Jenny Live on 08-22-2024 Albumin [Mass/Vol] 4.1 g/dL 3.5-5.[address] [facility] Serum or plasma albumin/glob ulin mass ratioOrdered By: Jenny Live on 08-22-2024 Albumin/Globulin [Mass ratio] 1.2 {ratio} 0.9-2.4 [facility] Serum or plasma alkaline gunjan sphatase measurementOrdered By: Jenny Live on 08-22-2024 ALP [Catalytic activity/Vol] 114 U/L 40-129 [facility] Serum or plasma calcium daly urement (mass/volume)Ordered By: Jenny Live on 08-22-2024 Calcium [Mass/Vol] 9.4 mg/dL 7.6-11.[address] [facility] Serum or plasma urea nitroge n measurement (mass/volume)Ordered By: Jenny Live on 08-22-2024 Urea nitrogen [Mass/Vol] 15 mg/dL 4-19 [facility] Sodium levelOrdered By: Jenny Live on 08-22-2024 Sodium [Moles/Vol] 138 mmol/L 133-[address] [facility] TSH DL <= 0.005 mIU/L QnOrde red By: Jenny Live on 08-22-2024 Thyroid Stimulating Hormone (TSH) 4.690 uIU/mL High 0.300-4.20 0 [facility] TSH Qn 4.690 uIU/mL High 0.300-4.20 0 [facility] Thyroid Stim Hormone (TSH)on 08-22-2024 TSH 4.690 uIU/mL High 0.300-4.20 0 [facility] Comment on above: Performed By: #### L 100.0100, L501.9520 #### [facility] [address] [place], [address] Total proteinOrdered By: Taryn Live on 08-22-2024 Protein [Mass/Vol] 7.4 g/dL 5.9-8.[address] [facility] White blood cell (WBC) count Ordered By: Jenny Live on 08-22-2024 WBC (Bld) [#/Vol] 11.8 10*3/uL High 4.4-11.0 [facility] Absolute lymphocyte countOrd ered By: Jenny Live on 07-27-2023 Lymphocytes Auto (Unsp spec) [#/Vol] 2.75 10*3/uL 0.83-4.51 [facility] Automated lymphocyte count a s percentage of total leukocytesOrdered By: Jenny Live on 07-27-2023 Lymphocytes/100 WBC Auto (Unsp spec) 29.5 % 19-41 [facility] Basophil percentageOrdered B y: Jenny Live on 07-27-2023 Basophils/100 WBC (Bld) 1.0 % 0-1 [facility] Bilirubin [Mass/Vol] 0.20 mg/dL 0.20-1.00 [facility] Comment on above: For patients on eltr ombopag therapy, use of Dimension [place] TBIL is not recommended. Chloride [Moles/Vol] 105 mmol/L 98-107 [facility] Cholesterol [Mass/Vol] 192 mg/dL <200 [facility] Comment on above: <200 mg/dL Desirable 200-240 mg/dL Borderline >240 mg/dL High Risk Eosinophils/100 WBC (Bld) 2.6 % 0-5 [facility] Glucose [Mass/Vol] 189 mg/dL 74-[address] [facility] Comment on above: Fasting Glucose resu lt greater than or equal to 126 mg/dL suggests DIABETES MELLITUS per A.D.A. criteria. Hemoglobin (Bld) [Mass/Vol] 14.1 g/dL 13.0-16.5 [facility] Monocytes/100 WBC (Bld) 10.4 % 0-10 [facility] Neutrophils (Bld) [#/Vol] 5.3 10*3/uL 2.0-7.7 [facility] Neutrophils/100 WBC (Bld) 56.3 % 47-70 [facility] Potassium [Moles/Vol] 3.9 mmol/L 3.5-5.1 [facility] Protein [Mass/Vol] 6.9 g/dL 6.4-8.[address] [facility] Sodium [Moles/Vol] 140 mmol/L 136-[address] [facility] Triglyceride [Mass/Vol] 275 mg/dL <199 [facility] Comment on above: The drugs N-Acetylcy steine and Metamizole may falsely depress this assay.Serum Triglycerides Reference Interval Normal <150 mg/dL Borderline high 150 - 199 mg/dL High 200 - 499 mg/dL Very High > or = 500 mg/dL WBC (Bld) [#/Vol] 9.3 10*3/uL 4.4-11.[address] [facility] Determination of erythrocyte mean corpuscular volume (MCV)Ordered By: Jenny Live on 07-27-2023 MCV (RBC) [Entitic vol] 95.4 fL 80-94 [facility] Erythrocyte distribution wid th ratioOrdered By: Jenny Live on 07-27-2023 Erythrocyte distribution width (RBC) [Ratio] 13.2 % 11.6-14.6 [facility] Erythrocyte distribution wid th standard deviationOrdered By: Jenny Live on 07-27-2023 Erythrocyte distribution width (RBC) [Entitic vol] 47.0 fL 35.1-43.9 [facility] Hematocrit Auto (Bld) [Volum e fraction]Ordered By: Jenny Live on 07-27-2023 Hematocrit (Bld) [Volume fraction] 43.8 % 40-54 [facility] Immature granulocytes/100 WB C Auto (Bld)Ordered By: Jenny Live on 07-27-2023 Immature granulocytes/100 WBC (Bld) 0.200 % 0.0-0.9 [facility] Comment on above: IG% - Immature Granu locytes (promyelocytes, myelocytes and metamyelocytes) > 1% indicates that a LEFT SHIFT is Present. Laboratory - Chemistry and C hemistry - challengeOrdered By: Jenny Live on 07-27-2023 Albumin/Globulin [Mass ratio] 0.9 {ratio} 0.9-2.4 [facility] ALP [Catalytic activity/Vol] 93 U/L 45-117 [facility] ALT [Catalytic activity/Vol] 25 U/L 16-61 [facility] Cholesterol in HDL [Mass/Vol] 38 mg/dL >40 [facility] Comment on above: The drugs N-Acetylcy steine and Metamizole may falsely depress this assay. Reference Range HDL <40 mg/dL Low HDL Cholesterol HDL >or= 60 mg/dL High HDL Cholesterol Cholesterol in LDL [Mass/Vol] 99 mg/dL 0-130 [facility] CO2 [Moles/Vol] 31.0 mmol/L 21.0-32.0 [facility] Globulin (S) [Mass/Vol] 3.6 g/dL 2.2-4.2 [facility] Urea nitrogen/Creatinine [Mass ratio] 11.9 mg/mg 10-20 [facility] - Hematology and Cell countsOrdered By: Jenny Live on 07-27-2023 MCH (RBC) [Entitic mass] 30.7 pg 27.0-32.0 [facility] MCHC (RBC) [Mass/Vol] 32.2 g/dL 32-36 [facility] Nucleated RBC/100 WBC (Bld) [Ratio] 0 % 0-5 [facility] Platelet mean volume (Bld) [Entitic vol] 12.5 fL 6.2-12.0 [facility] Platelets (Bld) [#/Vol] 266 10*3/uL 150-450 [facility] No Panel InformationOrdered By: Jenny Live on 07-27-2023 Estimated GFR (MDRD) Amer 66 mL/min >60 [facility] Comment on above: GFR Calc Estimated GFR (MDRD) Non-Af Amer 54 mL/min >60 [facility] Comment on above: Non- GFR Calc Prostate Specific Antigen Screen 0.35 ng/mL 0.00-4.00 [facility] Comment on above: This test was perfor med using the TPSA assay method for theDescomplica chemistry system. Values obtained with differentassay methods cannot be used interchangably.When changing PSA assays in the course of monitoring apatient, additional sequential testing should be carriedout to confirm baseline values. VLDL Cholesterol 55 mg/dL 5-40 [facility] RBC Auto (Bld) [#/Vol]Ordere d By: Jenny Live on 07-27-2023 RBC (Bld) [#/Vol] 4.59 10*6/uL 4.6-6.2 [facility] Serum or plasma calcium daly urement (mass/volume)Ordered By: Jenny Live on 07-27-2023 Calcium [Mass/Vol] 8.8 mg/dL 8.5-10.[address] [facility] Serum or plasma creatinine m easurement (mass/volume)Ordered By: Jenny Live on 07-27-2023 Creatinine [Mass/Vol] 1.43 mg/dL 0.70-1.30 [facility] Comment on above: The validity of the calculated GFR & GFRAA in patients over 70 years has not been determined. Clinical correlation is essential. Serum or plasma urea nitroge n measurement (mass/volume)Ordered By: Jenny Live on 07-27-2023 Urea nitrogen [Mass/Vol] 17 mg/dL 7-18 [facility] Thin prep Papanicolaou smear with manual screeningOrdered By: Jenny Live on 07-27-2023 Thin prep Papanicolaou smear with manual screening 3.3 g/dL 3.2-5.0 [facility] Thin prep Papanicolaou smear with manual screening 18 U/L 15-37 [facility] Thin prep Papanicolaou smear with manual screening 4 5-15 [facility] Whole blood hemoglobin A1c/t otal hemoglobin ratio (mass fraction)Ordered By: Jenny Raeson on 07-27-2023 HbA1c (Bld) [Mass fraction] 7.8 % 3.8-5.6 [facility] Comment on above: Normal < 5.7 % Predi abetic 5.7 - 6.4 % Diabetic >or= 6.5 % Please note range changes. 36on 07-18-2023 36 S: Patient spoke wit h [facility] nurse regarding dizziness. B: Onset [...] hours of rest and fluids Protocols used: [id number] Normal [facility] Absolute lymphocyte countOrd ered By: Jennyshruthi RaeLive on 09-06-2022 Lymphocytes Auto (Unsp spec) [#/Vol] 2.24 10*3/uL 0.83-4.51 [facility] Basophil percentageOrdered B y: Jenny Live on 09-06-2022 Basophils/100 WBC (Bld) 0.6 % 0-1 [facility] Bilirubin [Mass/Vol] 0.30 mg/dL 0.20-1.00 [facility] Comment on above: For patients on eltr ombopag therapy, use of Dimension [place] TBIL is not recommended. Chloride [Moles/Vol] 102 mmol/L 98-107 [facility] Eosinophils/100 WBC (Bld) 1.7 % 0-5 [facility] Glucose [Mass/Vol] 182 mg/dL 74-[address] [facility] Comment on above: Fasting Glucose resu lt greater than or equal to 126 mg/dL suggests DIABETES MELLITUS per A.D.A. criteria. Neutrophils (Bld) [#/Vol] 6.5 10*3/uL 2.0-7.7 [facility] Neutrophils/100 WBC (Bld) 65.3 % 47-70 [facility] Potassium [Moles/Vol] 3.8 mmol/L 3.5-5.1 [facility] Protein [Mass/Vol] 7.1 g/dL 6.4-8.[address] [facility] Sodium [Moles/Vol] 136 mmol/L 136-[address] [facility] WBC (Bld) [#/Vol] 10.0 10*3/uL 4.4-11.0 [facility] Blood erythrocytes count (nu mber/volume)Ordered By: Jenny Live on 09-06-2022 RBC (Bld) [#/Vol] 4.51 10*6/uL 4.6-6.2 [facility] Blood hemoglobin measurement (mass/volume)Ordered By: Jenny Live on 09-06-2022 Hemoglobin (Bld) [Mass/Vol] 14.3 g/dL 13.0-16.5 [facility] Blood lymphocytes/100 leukoc ytesOrdered By: Jenny Live on 09-06-2022 Lymphocytes/100 WBC (Bld) 22.5 % 19-41 [facility] Blood monocytes/100 leukocyt esOrdered By: Jenny Live on 09-06-2022 Monocytes/100 WBC (Bld) 9.7 % 0-10 [facility] Blood platelet mean volumeOr dered By: Jenny Live on 09-06-2022 Platelet mean volume (Bld) [Entitic vol] 12.6 fL 6.2-12.0 [facility] Determination of erythrocyte mean corpuscular volume (MCV)Ordered By: eJnny Live on 09-06-2022 MCV (RBC) [Entitic vol] 94.2 fL 80-94 [facility] Hematocrit Auto (Bld) [Volum e fraction]Ordered By: Jenny Live on 09-06-2022 Hematocrit (Bld) [Volume fraction] 42.5 % 40-54 [facility] Laboratory - Chemistry and C hemistry - challengeOrdered By: Jenny Live on 09-06-2022 ALP [Catalytic activity/Vol] 97 U/L 45-117 [facility] ALT [Catalytic activity/Vol] 27 U/L 16-61 [facility] CO2 [Moles/Vol] 28.0 mmol/L 21.0-32.0 [facility] Globulin (S) [Mass/Vol] 3.7 g/dL 2.2-4.2 [facility] Urea nitrogen/Creatinine [Mass ratio] 12.1 mg/mg 10-20 [facility] - Hematology and Cell countsOrdered By: Jenny Live on 09-06-2022 Erythrocyte distribution width (RBC) [Entitic vol] 45.9 fL 35.1-43.9 [facility] Erythrocyte distribution width (RBC) [Ratio] 13.2 % 11.6-14.6 [facility] Immature granulocytes/100 WBC (Bld) 0.200 % 0.0-0.9 [facility] Comment on above: IG% - Immature Granu locytes (promyelocytes, myelocytes and metamyelocytes) > 1% indicates that a LEFT SHIFT is Present. MCH (RBC) [Entitic mass] 31.7 pg 27.0-32.0 [facility] Nucleated RBC/100 WBC (Bld) [Ratio] 0 % 0-5 [facility] MCHC Auto (RBC) [Mass/Vol]Or dered By: Jenny Live on 09-06-2022 MCHC (RBC) [Mass/Vol] 33.6 g/dL 32-36 [facility] No Panel InformationOrdered By: Jenny Live on 09-06-2022 D-Dimer Quantitative (PE/DVT) < 0.27 FEU/ug/m 0.27-0.49 [facility] Comment on above: NORMAL D-Dimer level (<0.50) indicates no DVT or PE. Estimated GFR (MDRD) Amer 67 mL/min >60 [facility] Comment on above: GFR Calc Estimated GFR (MDRD) Non-Af Amer 56 mL/min >60 [facility] Comment on above: Non- GFR Calc Platelets bldOrdered By: Taryn Live on 09-06-2022 Platelets (Bld) [#/Vol] 280 10*3/uL 150-450 [facility] Serum or plasma albumin daly urement (mass/volume)Ordered By: Jenny Live on 09-06-2022 Albumin [Mass/Vol] 3.4 g/dL 3.2-5.[address] [facility] Serum or plasma albumin/glob ulin mass ratioOrdered By: Jenny Live on 09-06-2022 Albumin/Globulin [Mass ratio] 0.9 {ratio} 0.9-2.4 [facility] Serum or plasma calcium daly urement (mass/volume)Ordered By: Jenny Live on 09-06-2022 Calcium [Mass/Vol] 9.0 mg/dL 8.5-10.[address] [facility] Serum or plasma creatinine m easurement (mass/volume)Ordered By: Jenny Live on 09-06-2022 Creatinine [Mass/Vol] 1.40 mg/dL 0.70-1.30 [facility] Comment on above: The validity of the calculated GFR & GFRAA in patients over 70 years has not been determined. Clinical correlation is essential. Serum or plasma urea nitroge n measurement (mass/volume)Ordered By: Jenny Live on 09-06-2022 Urea nitrogen [Mass/Vol] 17 mg/dL 7-18 [facility] Thin prep Papanicolaou smear with manual screeningOrdered By: Jenny Live on 09-06-2022 Thin prep Papanicolaou smear with manual screening 22 U/L 15-37 [facility] Thin prep Papanicolaou smear with manual screening 6 5-15 [facility] - Hematology and Cell countson 08-18-2022 HbA1c (Bld) [Mass fraction] 9.3 % 4.2-6.3 [facility] - Hematology and Cell countson 05-25-2022 HbA1c (Bld) [Mass fraction] 9.1 % 4.2-6.3 [facility] Absolute lymphocyte counton 12-23-2021 Lymphocytes Auto (Unsp spec) [#/Vol] 2.85 10*3/uL 0.83-4.51 [facility] Work Phone: Basophil percentageon 2021 Basophils/100 WBC (Bld) 0.7 % 0-1 [facility] Work Phone: Bilirubin [Mass/Vol] 0.40 mg/dL 0.20-1.00 [facility] Work Phone: Comment on above: For patients on eltr ombopag therapy, use of Dimension [place] TBIL is not recommended. Chloride [Moles/Vol] 103 mmol/L 98-107 [facility] Work Phone: Cholesterol [Mass/Vol] 211 mg/dL <200 [facility] Work Phone: [phone] Comment on above: <200 mg/dL Desirable 200-240 mg/dL Borderline >240 mg/dL High Risk Eosinophils/100 WBC (Bld) 2.4 % 0-5 [facility] Work Phone: [phone] Glucose [Mass/Vol] 240 mg/dL 74-[address] [facility] Work Phone: Comment on above: Glucose result great er than or equal to 200 mg/dLsuggests DIABETES MELLITUS per A.D.A. criteria. Neutrophils (Bld) [#/Vol] 6.6 10*3/uL 2.0-7.7 [facility] Work Phone: Neutrophils/100 WBC (Bld) 60.8 % 47-70 [facility] Work Phone: [phone] Potassium [Moles/Vol] 3.9 mmol/L 3.5-5.1 [facility] Work Phone: [phone] Protein [Mass/Vol] 7.0 g/dL 6.4-8.[address] [facility] Work Phone: [phone] Sodium [Moles/Vol] 137 mmol/L 136-[address] [facility] Work Phone: [phone] Triglyceride [Mass/Vol] 575 mg/dL <199 [facility] Work Phone: [phone] Comment on above: The drugs N-Acetylcy steine and Metamizole may falsely depress this assay. TRIGLYCERIDE IS GREATER THAN 400 mg/dL. LDL RESULT IS INVALID AND WILL NOT BE REPORTED.Serum Triglycerides Reference Interval Normal <150 mg/dL Borderline high 150 - 199 mg/dL High 200 - 499 mg/dL Very High > or = 500 mg/dL WBC (Bld) [#/Vol] 10.8 10*3/uL 4.4-11.0 [facility] Work Phone: Blood erythrocytes count (nu mber/volume)on 12-23-2021 RBC (Bld) [#/Vol] 4.87 10*6/uL 4.6-6.2 [facility] Work Phone: Blood hemoglobin measurement (mass/volume)on 12-23-2021 Hemoglobin (Bld) [Mass/Vol] 15.6 g/dL 13.0-16.5 [facility] Work Phone: [phone] Blood lymphocytes/100 leukoc yteson 12-23-2021 Lymphocytes/100 WBC (Bld) 26.4 % 19-41 [facility] Work Phone: [phone] Blood monocytes/100 leukocyt eson 12-23-2021 Monocytes/100 WBC (Bld) 9.5 % 0-10 [facility] Work Phone: Blood platelet mean volumeon 12-23-2021 Platelet mean volume (Bld) [Entitic vol] 12.3 fL 6.2-12.0 [facility] Work Phone: Determination of erythrocyte mean corpuscular volume (MCV)on 12-23-2021 MCV (RBC) [Entitic vol] 94.5 fL 80-94 [facility] Work Phone: Hematocrit Auto (Bld) [Volum e fraction]on 12-23-2021 Hematocrit (Bld) [Volume fraction] 46.0 % 40-54 [facility] Work Phone: Laboratory - Chemistry and C hemistry - challengeon 12-23-2021 ALP [Catalytic activity/Vol] 124 U/L 45-117 [facility] Work Phone: ALT [Catalytic activity/Vol] 28 U/L 16-61 [facility] Work Phone: CO2 [Moles/Vol] 29.0 mmol/L 21.0-32.0 [facility] Work Phone: Globulin (S) [Mass/Vol] 3.5 g/dL 2.2-4.2 [facility] Work Phone: [phone] Urea nitrogen/Creatinine [Mass ratio] 10.6 mg/mg 10-20 [facility] Work Phone: [phone] Laboratory - Hematology and Cell countson 12-23-2021 Erythrocyte distribution width (RBC) [Entitic vol] 45.1 fL 35.1-43.9 [facility] Work Phone: [phone] Erythrocyte distribution width (RBC) [Ratio] 13.0 % 11.6-14.6 [facility] Work Phone: [phone] Immature granulocytes/100 WBC (Bld) 0.200 % 0.0-0.9 [facility] Work Phone: [phone] Comment on above: IG% - Immature Granu locytes (promyelocytes, myelocytes and metamyelocytes) > 1% indicates that a LEFT SHIFT is Present. MCH (RBC) [Entitic mass] 32.0 pg 27.0-32.0 [facility] Work Phone: [phone] Nucleated RBC/100 WBC (Bld) [Ratio] 0 % 0-5 [facility] Work Phone: [phone] MCHC Auto (RBC) [Mass/Vol]on 12-23-2021 MCHC (RBC) [Mass/Vol] 33.9 g/dL 32-36 [facility] Work Phone: [phone] Panel Informationon 12-23 Estimated GFR (MDRD) Amer 67 mL/min >60 [facility] Work Phone: [phone] Comment on above: GFR Calc Estimated GFR (MDRD) Non-Af Amer 55 mL/min >60 [facility] Work Phone: [phone] Comment on above: Non- GFR Calc Prostate Specific Antigen Screen 0.27 ng/mL 0.00-4.00 [facility] Work Phone: [phone] Comment on above: This test was perfor med using the TPSA assay method for the[employer] chemistry system. Values obtained with differentassay methods cannot be used interchangably.When changing PSA assays in the course of monitoring apatient, additional sequential testing should be carriedout to confirm baseline values. Platelets bldon 12-23-2021 Platelets (Bld) [#/Vol] 261 10*3/uL 150-450 [facility] Work Phone: Serum or plasma albumin daly urement (mass/volume)on 12-23-2021 Albumin [Mass/Vol] 3.5 g/dL 3.2-5.[address] [facility] Work Phone: Serum or plasma albumin/glob ulin mass ratioon 12-23-2021 Albumin/Globulin [Mass ratio] 1.0 {ratio} 0.9-2.4 [facility] Work Phone: Serum or plasma calcium daly urement (mass/volume)on 12-23-2021 Calcium [Mass/Vol] 9.2 mg/dL 8.5-10.[address] [facility] Work Phone: Serum or plasma cholesterol in HDL measurement (mass/volume)on 12-23-2021 Cholesterol in HDL [Mass/Vol] 31 mg/dL >40 [facility] Work Phone: Comment on above: The drugs N-Acetylcy steine and Metamizole may falsely depress this assay. Reference Range HDL <40 mg/dL Low HDL Cholesterol HDL >or= 60 mg/dL High HDL Cholesterol Serum or plasma cholesterol in VLDL measurement (mass/volume)on 12-23-2021 Cholesterol in VLDL [Mass/Vol] [facility] Comment on above: Test not performed Serum or plasma creatinine m easurement (mass/volume)on 12-23-2021 Creatinine [Mass/Vol] 1.41 mg/dL 0.70-1.30 [facility] Work Phone: Comment on above: The validity of the calculated GFR & GFRAA in patients over 70 years has not been determined. Clinical correlation is essential. Serum or plasma low density lipoprotein (LDL) cholesterol measurement (mass/volume)on 12-23-2021 Cholesterol in LDL [Mass/Vol] [facility] Work Phone: Comment on above: Test not performed Serum or plasma urea nitroge n measurement (mass/volume)on 12-23-2021 Urea nitrogen [Mass/Vol] 15 mg/dL 7-18 [facility] Work Phone: Thin prep Papanicolaou smear with manual screeningon 12-23-2021 Thin prep Papanicolaou smear with manual screening 20 U/L 15-37 [facility] Work Phone: [phone] Thin prep Papanicolaou smear with manual screening 5 5-15 [facility] Work Phone: [phone] Whole blood hemoglobin A1c/t otal hemoglobin ratio (mass fraction)on 12-23-2021 HbA1c (Bld) [Mass fraction] 9.4 % 3.8-5.6 [facility] Work Phone: Comment on above: Normal < 5.7 % Predi abetic 5.7 - 6.4 % Diabetic >or= 6.5 % Please note range changes. Absolute lymphocyte counton 11-07-2021 Lymphocytes Auto (Unsp spec) [#/Vol] 2.07 10*3/uL 0.83-4.51 [facility] Work Phone: Basophil percentageon 2021 Basophils/100 WBC (Bld) 0.7 % 0-1 [facility] Work Phone: Eosinophils/100 WBC (Bld) 1.8 % 0-5 [facility] Work Phone: Neutrophils (Bld) [#/Vol] 6.0 10*3/uL 2.0-7.7 [facility] Work Phone: Neutrophils/100 WBC (Bld) 65.8 % 47-70 [facility] Work Phone: [phone] Testosterone [Mass/Vol] 251.20 ng/dL [facility] Work Phone: [phone] Comment on above: CENTRAL 90% REFERENC E RANGES MALE AGE <50 197.44 - 669.58 ng/dL MALE AGE > or = 50 187.72 - 684.19 ng/dL FEMALE AGE <50 8.38 - 35.01 ng/dL FEMALE AGE > or = 50 <7.00 - 35.92 ng/dL Effective as of 12/28/20 WBC (Bld) [#/Vol] 9.1 10*3/uL 4.4-11.[address] [facility] Work Phone: Blood erythrocytes count (nu mber/volume)on 11-07-2021 RBC (Bld) [#/Vol] 5.13 10*6/uL 4.6-6.2 [facility] Work Phone: Blood hemoglobin measurement (mass/volume)on 11-07-2021 Hemoglobin (Bld) [Mass/Vol] 16.1 g/dL 13.0-16.5 [facility] Work Phone: Blood lymphocytes/100 leukoc yteson 11-07-2021 Lymphocytes/100 WBC (Bld) 22.8 % 19-41 [facility] Work Phone: Blood monocytes/100 leukocyt eson 11-07-2021 Monocytes/100 WBC (Bld) 8.6 % 0-10 [facility] Work Phone: Blood platelet mean volumeon 11-07-2021 Platelet mean volume (Bld) [Entitic vol] 12.3 fL 6.2-12.0 [facility] Work Phone: Determination of erythrocyte mean corpuscular volume (MCV)on 11-07-2021 MCV (RBC) [Entitic vol] 95.3 fL 80-94 [facility] Work Phone: Hematocrit Auto (Bld) [Volum e fraction]on 11-07-2021 Hematocrit (Bld) [Volume fraction] 48.9 % 40-54 [facility] Work Phone: Laboratory - Chemistry and C hemistry - challengeon 11-07-2021 Cobalamin (Vitamin B12) [Mass/Vol] 1580 pg/mL 211-911 [facility] Work Phone: Laboratory - Hematology and Cell countson 11-07-2021 HbA1c (Bld) [Mass fraction] 9.0 % 4.2-6.3 [facility] Work Phone: [phone] Erythrocyte distribution width (RBC) [Entitic vol] 45.7 fL 35.1-43.9 [facility] Work Phone: [phone] Erythrocyte distribution width (RBC) [Ratio] 13.0 % 11.6-14.6 [facility] Work Phone: [phone] Immature granulocytes/100 WBC (Bld) 0.300 % 0.0-0.9 [facility] Work Phone: [phone] Comment on above: IG% - Immature Granu locytes (promyelocytes, myelocytes and metamyelocytes) > 1% indicates that a LEFT SHIFT is Present. MCH (RBC) [Entitic mass] 31.4 pg 27.0-32.0 [facility] Work Phone: [phone] Nucleated RBC/100 WBC (Bld) [Ratio] 0 % 0-5 [facility] Work Phone: [phone] MCHC Auto (RBC) [Mass/Vol]on 11-07-2021 MCHC (RBC) [Mass/Vol] 32.9 g/dL 32-36 [facility] Work Phone: No Panel Informationon 11-07 Prostate Specific Antigen Total 0.46 ng/mL 0.0-4.0 [facility] Work Phone: [phone] Comment on above: This test was perfor med using the TPSA assay method for the[employer] [facility] chemistry system. Values obtained with differentassay methods cannot be used interchangably.When changing PSA assays in the course of monitoring apatient, additional sequential testing should be carriedout to confirm baseline values. Platelets bldon 11-07-2021 Platelets (Bld) [#/Vol] 256 10*3/uL 150-450 [facility] Work Phone: CBC W Auto Differential pane l (Bld)on 10-03-2021 Basophils (Bld) [#/Vol] 0.05 10*3/uL Normal <0.11 [facility] Comment on above: Order Comment: Speci men Type: BLOOD SPECIMENOrdering Facility: [facility] Address: [address] [place] [address] [place] [address] Performed By: #### 5 7021-8 ####[facility] LABORATORYCLIA [id number] [place] [address] [place] Basophils/100 WBC (Bld) 0.4 % Normal [facility] Comment on above: Order Comment: Speci men Type: BLOOD SPECIMENOrdering Facility: [facility] Address: [address] [place] [address] Performed By: #### 5 7021-8 ####JONMAXIMILIANO [facility]ORATORYCLIA [id number] [address] [facility] Differential cell count method Nom (Bld) Auto Normal [facility] Comment on above: Order Comment: Speci men Type: BLOOD SPECIMENOrdering Facility: [facility] Address: [address] [place] [address] Performed By: #### 5 7021-8 ####NISHNATJAYE [facility] LABORATORYCLIA [id number] [address] STATES [facility] Eosinophils (Bld) [#/Vol] 0.18 10*3/uL Normal <0.46 [facility] Comment on above: Order Comment: Speci men Type: BLOOD SPECIMENOrdering Facility: [facility] Address: [address] [place] [address] Performed By: #### 5 7021-8 ####JONMAXIMILIANO [facility] LABORATORYIA [id number] [address] Eosinophils/100 WBC (Bld) 1.5 % Normal [facility] Comment on above: Order Comment: Speci men Type: BLOOD SPECIMENOrdering Facility: [facility] Address: [address] [place] [address] Performed By: #### 5 7021-8 ####[facility] LABORATORYIA [id number] [address] Erythrocyte distribution width (RBC) [Ratio] 13.7 % Normal 11.5-15.0 [facility] Comment on above: Order Comment: Speci men Type: BLOOD SPECIMENOrdering Facility: [facility] Address: [address] [place] [address] Performed By: #### 5 7021-8 ####NISHANTJAYE [facility] LABORATORYCLIA [id number] [place] [address] [facility] Hematocrit (Bld) [Volume fraction] 49.3 % Normal 39.0-51.0 [facility] Comment on above: Order Comment: Speci men Type: BLOOD SPECIMENOrdering Facility: [facility] Address: [address] [place] [address] Performed By: #### 5 7021-8 ####[facility]ORATORYCLIA [id number] [place] [address] [place] Hemoglobin (Bld) [Mass/Vol] 16.5 g/dL Normal 13.0-17.0 [facility] Comment on above: Order Comment: Speci men Type: BLOOD SPECIMENOrdering Facility: [facility] Address: [address] [place] [address] Performed By: #### 5 7021-8 ####[facility] LABORATORYIA [id number] [place] [address] [place] Lymphocytes (Bld) [#/Vol] 3.14 10*3/uL Normal 1.00-4.00 [facility] Comment on above: Order Comment: Speci men Type: BLOOD SPECIMENOrdering Facility: [facility] Address: [address] [place] [address] Performed By: #### 5 7021-8 ####[facility]ORATORYCLIA [id number] [place] [address] [place] Lymphocytes/100 WBC (Bld) 26.7 % Normal [facility] Comment on above: Order Comment: Speci men Type: BLOOD SPECIMENOrdering Facility: [facility] Address: [address] [place] [address] Performed By: #### 5 7021-8 ####[facility]ORATORYCLIA [id number] [address] [place] [facility] MCH (RBC) [Entitic mass] 31.3 pg Normal 26.0-34.0 [facility] Comment on above: Order Comment: Speci men Type: BLOOD SPECIMENOrdering Facility: [facility] Address: [address] [place] [address] Performed By: #### 5 7021-8 ####[facility] LABORATORYIA [id number] [address] MCHC (RBC) [Mass/Vol] 33.5 g/dL Normal 30.5-36.0 [facility] Comment on above: Order Comment: Speci men Type: BLOOD SPECIMENOrdering Facility: [facility] Address: [address] [place] [address] Performed By: #### 5 7021-8 ####NISHANTMAXIMILIANO [facility] [id number] [address] MCV (RBC) [Entitic vol] 93.5 fL Normal 80.0-100.0 [facility] Comment on above: Order Comment: Speci men Type: BLOOD SPECIMENOrdering Facility: [facility] Address: [address] [place] [address] Performed By: #### 5 7021-8 ####[facility] [id number] [place] [address] [place] Monocytes (Bld) [#/Vol] 1.39 10*3/uL High <0.87 [facility] Comment on above: Order Comment: Speci men Type: BLOOD SPECIMENOrdering Facility: [facility] Address: [address] [place] [address] Performed By: #### 5 7021-8 ####[facility] LABORATORYIA [id number] [address] Monocytes/100 WBC (Bld) 11.8 % Normal [facility] Comment on above: Order Comment: Speci men Type: BLOOD SPECIMENOrdering Facility: [facility] Address: [address] [place] [address] Performed By: #### 5 7021-8 ####[facility] LABORATORYIA [id number] [place] [address] [place] Neutrophils (Bld) [#/Vol] 6.99 10*3/uL Normal 1.45-7.50 [facility] Comment on above: Order Comment: Speci men Type: BLOOD SPECIMENOrdering Facility: [facility] Address: [address] [place] [address] Performed By: #### 5 7021-8 ####[facility] [id number] [address] [place] Neutrophils/100 WBC (Bld) 59.6 % Normal [facility] Comment on above: Order Comment: Speci men Type: BLOOD SPECIMENOrdering Facility: [facility] Address: [address] [place] [address] Performed By: #### 5 7021-8 ####[facility] [id number] [place] [address] [place] Platelet mean volume (Bld) [Entitic vol] 12.3 fL Normal 9.0-12.7 [facility] Comment on above: Order Comment: Speci men Type: BLOOD SPECIMENOrdering Facility: [facility] Address: [address] [place], [place] [id number] Performed By: #### 5 7021-8 ####[facility] LABORATORYIA [id number] [place] [address] [place] Platelets (Bld) [#/Vol] 285 10*3/uL Normal 150-400 [facility] Comment on above: Order Comment: Speci men Type: BLOOD SPECIMENOrdering Facility: [facility] Address: [address] [place] [address] Performed By: #### 5 7021-8 ####[facility]ORATORYCLIA [id number] [place] [address] [place] RBC (Bld) [#/Vol] 5.27 10*6/uL Normal 4.20-6.00 [facility] Comment on above: Order Comment: Speci men Type: BLOOD SPECIMENOrdering Facility: [facility] Address: [address] [place] [address] Performed By: #### 5 7021-8 ####[facility]ORATORYCLIA [id number] [address] WBC (Bld) [#/Vol] 11.75 10*3/uL High 3.70-11.[address] [facility] Comment on above: Order Comment: Speci men Type: BLOOD SPECIMENOrdering Facility: [facility] Address: [address] [place] [address] Performed By: #### 5 7021-8 ####NISHANTMAXIMILIANO [facility]ORATORYIA [id number] [address] [facility] CNOVon 10-03-2021 CNOV Office Visit ([facility] ) JAEM WALLACE ([id number]) 1965 M Date Time Provider Department 10/03/21 3:15 PM SCOTT RODRIGUEZ During your visit today, we recorded the following information about you: Temperature Pulse Respiration Blood pressure 98.6 degrees 83/minute 18/minute 134/92 Weight 152.6 kg Scott Rodriguez APRN.CNP 10/03/2021 4:08 PM Signed Patient [...] not helped. 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 Patient also [...] with this plan. Report was called to [facility] emergency room patient was transported out of the office today to the emergency room in stable condition in no distress. Scott Rodriguez APRN.COSTUME SHOP COORDINATOR This note was partially generated using [employer] voice recognition system. Referring Provider: SELF [200] [...] density lipoprot*01/20/20 (more content not included)... Normal [facility] CT BRAIN WO IVCONon 10-04-19 CT BRAIN WO IVCON * * *Final Report* * * DATE OF EXAM: Oct 03 2021 5:49PM [facility] 0504 - CT BRAIN WO [...] reduction techniques were required COMPARISON: None. RESULT: Saxophone Player (topogram) images: No additional findings. Post-operative change: [...] CT evidence of an acute intracranial process. Virtualization Architect: PSCB Transcribe Date/Time: Oct 03 2021 6:10P Dictated by : VERA OLIVA MD This examination was interpreted and the report reviewed and electronically signed by: VERA OLIVA MD on Oct 03 2021 6:12PM EST [id number] Normal [facility] Comprehensive metabolic 2000 panelon 10-03-2021 Albumin [Mass/Vol] 4.3 g/dL Normal 3.9-4.9 [facility] Comment on above: Order Comment: Speci men Type: BLOOD SPECIMENOrdering Facility: [facility] Address: [address] [place] [id number] Performed By: #### [place], [address]-5, 20600-3 ###DEBRA [facility]ORATORYCLIA [id number] [address] [place] ALP [Catalytic activity/Vol] 106 U/L Normal 38-113 [facility] Comment on above: Order Comment: Speci men Type: BLOOD SPECIMENOrdering Facility: [facility] Address: [address] [place], [place] [id number] Performed By: #### Edita CHRISTY, , ###DEBRA [facility]ORATORYCLIA [id number] [place] [address] [place] ALT [Catalytic activity/Vol] 20 U/L Normal 10-54 [facility] Comment on above: Order Comment: Speci men Type: BLOOD SPECIMENOrdering Facility: [facility] Address: [address] [place] [address] Performed By: #### Edita CHRISTY, , ###DEBRA [facility]ORATORYIA [id number] [place] [address] [place] Anion gap [Moles/Vol] 12 mmol/L Normal 9-18 [facility] Comment on above: Order Comment: Speci men Type: BLOOD SPECIMENOrdering Facility: [facility] Address: [address] [place] [address] Performed By: #### Edita CHRISTY, , ###DEBRA [facility]ORATORYIA [id number] [place] [address] [place] AST [Catalytic activity/Vol] 22 U/L Normal 14-40 [facility] Comment on above: Order Comment: Speci men Type: BLOOD SPECIMENOrdering Facility: [facility] Address: [address] [place] [address] Performed By: #### Edita CHRISTY, , ###DEBRA [facility] LABORATORYIA [id number] [place] [address] [place] Bilirubin [Mass/Vol] 0.3 mg/dL Normal 0.2-1.[address] [facility] Comment on above: Order Comment: Speci men Type: BLOOD SPECIMENOrdering Facility: [facility] Address: [address] [place] [address] Performed By: #### T NT, , ####[facility]GE [facility]ORATORYCLIA [id number] [place] [address] [place] Calcium [Mass/Vol] 9.6 mg/dL Normal 8.5-10.2 [facility] Comment on above: Order Comment: Speci men Type: BLOOD SPECIMENOrdering Facility: [facility] Address: [address] [place] [address] Performed By: #### T NT, , ####[facility]ORATORYCLIA [id number] [place] [address] [place] Chloride [Moles/Vol] 100 mmol/L Normal 97-[address] [facility] Comment on above: Order Comment: Speci men Type: BLOOD SPECIMENOrdering Facility: [facility] Address: [address] [place] [address] Performed By: #### T NT, , ####[facility]ORATORYCLIA [id number] [place] [address] [place] CO2 [Moles/Vol] 28 mmol/L Normal 22-30 [facility] Comment on above: Order Comment: Speci men Type: BLOOD SPECIMENOrdering Facility: [facility] Address: [address] [place] [address] Performed By: #### T NT, , ####[facility]ORATORYCLIA [id number] [place] [address] [place] Creatinine [Mass/Vol] 1.09 mg/dL Normal 0.73-1.22 [facility] Comment on above: Order Comment: Speci men Type: BLOOD SPECIMENOrdering Facility: [facility] Address: [address] [place] [address] Performed By: #### T NT, , ####[facility]ORATORYCLIA [id number] [place] [address] [place] ESTIMATED GLOMERULAR FILTRATION RATE 80 mL/min/1.73m??? Normal >=60 [facility] Comment on above: Order Comment: Lucas olson Type: BLOOD SPECIMENOrdering Facility: [facility] Address: [address] [place] [address] Result Comment: Delaney mated Glomerular Filtration Rate [...] #### T NT, , ####[facility]ATORYCLIA [id number] [place] [address] [place] Glucose [Mass/Vol] 142 mg/dL High 74-99 [facility] Comment on above: Order Comment: Lucas olson Type: BLOOD SPECIMENOrdering Facility: [facility] Address: [address] [place] [address] Result Comment: The [place] [employer] (ADA) provides guidance for cutoff [...] Standards of Medical Care in Diabetes 2016, [place] [employer]. Diabetes Care. 2016.39(Suppl 1). Performed By: #### T NT, , ####[facility] HEALTH CENTERMAXIMILIANO [facility]ATORYCLIA [id number] [place] [address] [place] Potassium [Moles/Vol] 4.3 mmol/L Normal 3.7-5.1 [facility] Comment on above: Order Comment: Speci men Type: BLOOD SPECIMENOrdering Facility: [facility] Address: [address] [place] [address] Performed By: #### T NT, , ####NISHANTJAYE [facility]ATORYCLIA [id number] [place] [address] [place] Protein [Mass/Vol] 7.7 g/dL Normal 6.3-8.0 [facility] Comment on above: Order Comment: Speci men Type: BLOOD SPECIMENOrdering Facility: [facility] Address: [address] [place] [address] Performed By: #### T WESTLEY, , ####[facility]ORATORYCLIA [id number] [place] [address] [place] Sodium [Moles/Vol] 140 mmol/L Normal 136-144 [facility] Comment on above: Order Comment: Speci men Type: BLOOD SPECIMENOrdering Facility: [facility] Address: [address] [place] [address] Performed By: #### T NT, , ###DEBRA [facility] LABORATORYCLIA [id number] [place] [address] [place] Urea nitrogen [Mass/Vol] 19 mg/dL Normal 9-24 [facility] Comment on above: Order Comment: Speci men Type: BLOOD SPECIMENOrdering Facility: [facility] Address: [address] [place] [address] Performed By: #### T NT, , ####ROGE [facility] LABORATORYCLIA [id number] [place] [address] [place] ED NOTEon 10-03-2021 ED NOTE HNO ID: [id number] Author: Ron Vargas PA-C Service: ? Author Type: Physician Zipper Trimmer Hand Type: ED Notes Filed: 10/04/2021 1:18 PM [...] October 04, 2021 TIME: 1:17 PM Normal [facility] ED NOTE HNO ID: [id number] Author: Homer Graham RN Service: Emergency Medicine Author Type: Registered Nurse Type: ED Notes Filed: 10/03/2021 7:24 PM Note Text: Discharge instructions given . And pt will call for follow up appointment in AM Normal [facility] ED NOTE HNO ID: [id number] Author: Jennifer Lindquist RN Service: Emergency Medicine Author Type: Registered Nurse Type: ED Notes Filed: 10/03/2021 6:53 PM Note Text: Dizziness only when standing Normal [facility] ED NOTE HNO ID: [id number] Author: Jennifer Lindquist RN Service: Emergency Medicine Author Type: Registered Nurse Type: ED Notes Filed: 10/03/2021 5:33 PM Note Text: To ct with a tech Normal [facility] ED NOTE HNO ID: [id number] Author: Jennifer Lindquist RN Service: Emergency Medicine Author Type: Registered Nurse Type: ED Notes Filed: 10/03/2021 4:57 PM Note Text: Patient states that he feels like the room is spinning with every movement Normal [facility] ED NOTE HNO ID: [id number] Author: Jennifer Lindquist RN Service: Emergency Medicine Author Type: Registered Nurse Type: ED Notes Filed: 10/03/2021 4:43 PM Note Text: Patient has a quarter size abscess under panis area red purple in color Normal [facility] ED NOTE HNO ID: [id number] Author: Jennifer Lindquist RN Service: Emergency Medicine Author Type: Registered Nurse Type: ED Notes Filed: 10/03/2021 4:32 PM Note Text: Patient states that he gets dizzy with movement 2nd complaint he has a abscess under his panis Normal [facility] ED NOTE HNO ID: [id number] Author: Zakiya Walters RN Service: Emergency Medicine Author Type: Registered Nurse Type: ED Notes Filed: 10/03/2021 4:21 PM Note Text: Pt. Presents with dizzyness that started Sunday. No nausea/vomiting, no blurry or double vision. Per pt, he also has a boil on his groin area he needs checked out. Normal [facility] ED PROV NOTEon 10-03-2021 ED PROV NOTE HNO ID: [id number] Author: Ron Vargas PA-C Service: Emergency Medicine Author Type: Physician Zipper Trimmer Hand Type: ED Provider Notes Filed: 10/03/2021 7:09 PM Note Text: ED Provider Note Patient Name: Jame Wallace : 1965 SERVICE DATE: 10/03/21 History Patient presents with: Dizziness Abscess: PUBIC AREA 56-year-old male with PMH of DM, diverticulitis, RA, neuropathy, vertigo presents for multiple complaints. Patient states that he was sent here from the medical center due to complaints of dizziness. 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 Normal [facility] Magnesium SerPl-mCncon 10-03 Magnesium [Mass/Vol] 2.2 mg/dL Normal 1.7-2.[address] [facility] Comment on above: Order Comment: Speci men Type: BLOOD SPECIMENOrdering Facility: [facility] Address: [address] [address] Performed By: #### T NT, , [id number] ##BARBARA [facility]ORATORYCLIA [id number] [address] [facility] TROPONIN Ton 10-03-2021 Troponin T.cardiac [Mass/Vol] ug/L Normal <=0.029 [facility] Comment on above: Order Comment: Speci men Type: BLOOD SPECIMENOrdering Facility: [facility] Address: [address] Performed By: #### T NT, , [id number] ####BRUNSWMAXIMILIANO [facility]ORATORYCLIA [id number] [place] [address] [place] XR CHEST 2V FRONTAL/LATon [...] right hemidiaphragm. IMPRESSION: No acute radiographic abnormality. Virtualization Architect: PSCMargarita Transcribe Date/Time: Oct 03 2021 6:20P Dictated by : MARTHA DOLAN MD This examination was interpreted and the report reviewed and electronically signed by: MARTHA DOLAN MD on Oct 03 2021 6:21PM EST [id number] Normal [facility] CNOVon 04-07-2021 CNOV Office Visit (GENSME ) JAME WALLACE ([id number]) 1965 M Date Time Provider Department 04/07/21 [...] Veronique Vo MD Referring Provider: VERONIQUE VO [[id number]] Allergies As of Date: 04/07/2021 Noted Allergy [...] Encounter Status:Closed by VERONIQUE VO on 04/07/21 [facility] CNOVon 03-24-2021 CNOV Office Visit (OSMEL ) JAME WALLACE ([id number]) 1965 M Date Time Provider Department 03/24/21 10:45 AM VERONIQUE VO During your visit today, we recorded the following information about you: Анна Maged 03/24/2021 11:27 AM Signed Pt states 4/10 [...] Veronique Vo MD Referring Provider: VERONIQUE VO [[id number]] Allergies As of Date: 03/24/2021 Noted Allergy [...] Encounter Status:Closed by VERONIQUE VO on 03/24/21 [facility] Margret 03-15-2021 CNOV Office Visit (GENE ) JAME WALLACE ([id number]) 1965 M Date Time Provider Department 03/15/21 [...] on 03/15/21. Veronique Vo MD Referring Provider: JENNY LIVE [[id number]] Allergies As of Date: 03/15/2021 Noted Allergy [...] Encounter Status:Closed by VERONIQUE VO on 03/15/21 [facility] 03-11-2021 [facility] Telephone ([facility]) JAME WALLACE ([id number]) 1965 M Date Time Provider Department 03/11/21 JENNY LIVE [facility] During your visit today, we recorded the following information about you: Ariadne Montgomeryffe 03/11/2021 4:11 PM Signed Record ID: [id number] [facility] [place]: [facility] [place] Attending: [facility]: Sleep Disorders INSTRUCTIONS MA to remind patient of next upcoming appointment date, time, location All Clear All Clear SURVEY INFORMATION Medical/Nurse Zipper Trimmer Hand: Ralph Foley 1. Your discharge instructions are [...] Reason for Visit: Follow Up Phone Call [3077] Cmt: All Clear Prescriptions as of 03/11/2021 [...] sleep st*11/15/2020 Osteoarthritis [M19.90] Encounter Status:Closed by ARIADNE CANTOR on 03/11/21 [facility]OL[facility] JAME WALLACE ([id number]) 1965 M Date Time Provider Department 03/07/21 [...] c/o pain: Location: right lower buttock Intensity: 01/11 Character: sharp, shooting Frequency: constant Duration: Today Aggravating: sitting and dressing changes Alleviating Factors: Ice, patient took Aleve this morning and has been taking Tylenol 500 mg, 2 tabs every 4 hours since surgery. Today the pain has increased and Tylenol is not helping. Patient asks for a more effective pain reliever Preferred pharmacy has been confirmed Manuel Feng/Antonia Mariano RN 03/08/2021 10:34 AM Signed Spoke with patient as was calling back to see if anything else could be ordered for pain. 7 for pain today, and he is taking the Below Aleve and Tylenol with little relief. Yesterday draining was worse than today. Drainage today was key maker, but he states that skin around wound is looking macerated. Post op appt next week with Dr. Vo 03-15-2021. Advised anything else for pain? Sent home with just Doxy. Please Advise. Veronique Vo MD 03/08/2021 1:04 PM Signed Percocet sent to pharmacy Maria D Mariano RN 03/08/2021 2:25 PM Signed Patient is very thankful and will see you Sunday. Will follow up with Pharmacy. Allergies As [...] Cellulitis and abscess of buttock [L02.31, L03.*03/02/2021 BHAVAY (acute kidney injury) (HCC) [N17.9] 03/02/2021 Diaphragm paralysis [J9 (more content not included)... Normal [facility] ALBUMINon 12-24-2020 Albumin [Mass/Vol] 3.9 g/dL Normal 3.4 - 5.0 [facility] Comment on above: Performed By: #### A LB #### [facility] [address] [place] [address] Keshawn 12-24-2020 ALT [Catalytic activity/Vol] 21 U/L Normal - [facility] Comment on above: Result Comment: Damari ents treated with Sulfasalazine may generate falsely decreased results for ALT. Performed By: #### A LT #### [facility] [address] [place] [address] ALT - Alanine Aminotransfera se, Serumon 12-24-2020 ALT With P-5'-P [Catalytic activity/Vol] 21 U/L [facility] Work Phone: [phone] Comment on above: Patients treated wit h Sulfasalazine may generate falsely decreased results for ALT. Parker 12-24-2020 AST [Catalytic activity/Vol] 22 U/L Normal 9 - 39 [facility] Comment on above: Performed By: #### A ST #### [facility] [address] [place] [address] Albumin, Serumon 12-24-2020 Albumin BCP dye [Mass/Vol] 3.9 g/dL 3.4 - 5.0 [facility] Work Phone: [phone] Blood Urea Nitrogen, Serumon 12-24-2020 Urea nitrogen [Mass/Vol] 17 mg/dL [facility] Work Phone: [phone] Reactive Protein, Serumon 12-24-2020 CRP [Mass/Vol] 1.16 mg/dL Abnormal [facility] [employer] Work Phone: [phone] Comment on above: REF VALUE< 1.00 C-REACTIVE PROTEINon 021 C-REACTIVE PROTEIN 1.16 mg/dL Abnormal [facility] Comment on above: Result Comment: REF VALUE < 1.00 Performed By: #### C RP #### [facility] [address] [place] [address] CBC AND DIFFERENTIALon 12-24 % AUTOMATED IMMATURE GRAN 0.2 % Normal 0.0 - 0.9 [facility] Comment on above: Result Comment: Shobha ture Granulocyte Count (IG) includes promyelocytes, myelocytes and metamyelocytes but does not include bands. Percent differential counts (%) should be interpreted in the context of the absolute cell counts (cells/L). Performed By: #### C BCDF #### [facility] [address] [place] [address] Basophils (Bld) [#/Vol] 0.04 10*3/uL Normal 0.00 - 0.10 [facility] Comment on above: Performed By: #### C BCDF #### [facility] [address] [place] [address] Basophils/100 WBC (Bld) 0.5 % Normal 0.0 - 2.0 [facility] Comment on above: Performed By: #### C BCDF #### [facility] [address] [place] [address] Eosinophils (Bld) [#/Vol] 0.14 10*3/uL Normal 0.00 - 0.70 [facility] Comment on above: Performed By: #### C BCDF #### [facility] [address] [place] [address] Eosinophils/100 WBC (Bld) 1.7 % Normal 0.0 - 6.0 [facility] Comment on above: Performed By: #### C BCDF #### [facility] [address] [place] [address] Erythrocyte distribution width (RBC) [Ratio] 13.2 % Normal 11.5 - 14.5 [facility] Comment on above: Performed By: #### C BCDF #### [facility] [address] [place] [address] Hematocrit (Bld) [Volume fraction] 51.4 % Normal 41.0 - 52.0 [facility] Comment on above: Performed By: #### C BCDF #### [facility] [address] [place] [address] Hemoglobin (Bld) [Mass/Vol] 16.5 g/dL Normal 13.5 - 17.5 [facility] Comment on above: Performed By: #### C BCDF #### [facility] [address] [place] [address] Lymphocytes (Bld) [#/Vol] 1.63 10*3/uL Normal 1.20 - 4.80 [facility] Comment on above: Performed By: #### C BCDF #### [facility] [address] [place] [address] Lymphocytes/100 WBC (Bld) 20.2 % Normal 13.0 - 44.0 [facility] Comment on above: Performed By: #### C BCDF #### [facility] [address] [place] [address] MCHC (RBC) [Mass/Vol] 32.1 g/dL Normal 32.0 - 36.0 [facility] Comment on above: Performed By: #### C BCDF #### [facility] [address] [place] [address] MCV (RBC) [Entitic vol] 98 fL Normal 80 - 100 [facility] Comment on above: Performed By: #### C BCDF #### [facility] [address] [place] [address] Monocytes (Bld) [#/Vol] 0.76 10*3/uL Normal 0.10 - 1.00 [facility] Comment on above: Performed By: #### C BCDF #### [facility] [address] [place] [address] Monocytes/100 WBC (Bld) 9.4 % Normal 2.0 - 10.0 [facility] Comment on above: Performed By: #### C BCDF #### [facility] [address] [place] [address] Neutrophils (Bld) [#/Vol] 5.47 10*3/uL Normal 1.20 - 7.70 [facility] Comment on above: Performed By: #### C BCDF #### [facility] [address] [place] [address] Neutrophils/100 WBC (Bld) 68.0 % Normal 40.0 - 80.0 [facility] Comment on above: Performed By: #### C BCDF #### [facility] [address] [place] [address] NUCLEATED RBC 0.0 /100 WBC Normal 0.0-0.0 [facility] Comment on above: Performed By: #### C BCDF #### [facility] [address] [place] [address] Platelets (Bld) [#/Vol] 244 10*3/uL Normal 150 - 450 [facility] Comment on above: Performed By: #### C BCDF #### [facility] [address] [place] [address] RBC 5.25 x10E12/L Normal 4.50 - 5.90 [facility] Comment on above: Performed By: #### C BCDF #### [facility] [address] [place] [address] WBC (Bld) [#/Vol] 8.1 10*3/uL Normal 4.4 - 11.3 [facility] Comment on above: Performed By: #### C BCDF #### [facility] [address] [place] [address] CREATININEon 12-24-2020 Creatinine [Mass/Vol] 1.33 mg/dL High 0.50 - 1.30 [facility] Comment on above: Performed By: #### C REAT #### [facility] [address] [place] [address] GFR- AM. 68 mL/min/1.73m2 Normal >60 [facility] Comment on above: Result Comment: CALC ULATIONS OF ESTIMATED GFR ARE PERFORMED USING THE MDRD STUDY EQUATION FOR THE IDMS-TRACEABLE CREATININE METHODS. CLIN CHEM 2007;53:766-72 Performed By: #### C REAT #### [facility] [address] [place] [address] GFR-NON AM. 56 mL/min/1.73m2 Abnormal >60 [facility] Comment on above: Performed By: #### C REAT #### [facility] [address] [place] [address] Complete Blood Count + Diffe rentialon 12-24-2020 Basophils/100 WBC (Bld) 0.5 % 0.0 - 2.0 [employer] [facility] [employer] Work Phone: [phone] Erythrocyte distribution width (RBC) [Ratio] 13.2 % See Below -[employer] [facility] [employer] Work Phone: [phone] Comment on above: Reference Range: 11. 5 - 14.5 Hematocrit (Bld) [Volume fraction] 51.4 % See Below [employer] [facility] [employer] Work Phone: [phone] Comment on above: Reference Range: 41. 0 - 52.0 Hemoglobin (Bld) [Mass/Vol] 16.5 g/dL See Below -[employer] [facility] [employer] Work Phone: [phone] Comment on above: Reference Range: 13. 5 - 17.5 Lymphocytes/100 WBC (Bld) 20.2 % See Below [employer] [facility] [employer] Work Phone: [phone] Comment on above: Reference Range: 13. 0 - 44.0 MCHC (RBC) [Mass/Vol] 32.1 g/dL See Below - [employer] [facility] Work Phone: [phone] Comment on above: Reference Range: 32. 0 - 36.0 MCV (RBC) [Entitic vol] 98 fL 80 - 100 [employer] [facility] [employer] Work Phone: [phone] Monocytes/100 WBC (Bld) 9.4 % 2.0 - 10.0 -[employer] [facility] [employer] Work Phone: [phone] Neutrophils/100 WBC (Bld) 68.0 % See Below -[employer] [facility] [employer] Work Phone: [phone] Comment on above: Reference Range: 40. 0 - 80.0 Platelets (Bld) [#/Vol] 244 10*3/uL 150 - 450 [employer] [facility] Work Phone: [phone] RBC (Bld) [#/Vol] 5.25 {x10E12/L} See Below -[employer] [facility] [employer] Work Phone: [phone] Comment on above: Reference Range: 4.5 0 - 5.90 WBC (Bld) [#/Vol] 8.1 10*3/uL 4.4 - 11.3 [facility] Work Phone: [phone] Complete Blood Count + Differential 0.04 {x10E9/L} See Below [facility] Work Phone: [phone] Comment on above: Reference Range: 0.0 0 - 0.10 Complete Blood Count + Differential 0.14 {x10E9/L} See Below [facility] Phone: [phone] Comment on above: Reference Range: 0.0 0 - 0.70 Complete Blood Count + Differential 0.76 {x10E9/L} See Below [facility] Work Phone: [phone] Comment on above: Reference Range: 0.1 0 - 1.00 Complete Blood Count + Differential 1.63 {x10E9/L} See Below [facility] Work Phone: [phone] Comment on above: Reference Range: 1.2 0 - 4.80 Complete Blood Count + Differential 5.47 {x10E9/L} See Below [facility] Work Phone: [phone] Comment on above: Reference Range: 1.2 0 - 7.70 Complete Blood Count + Differential 1.7 % 0.0 - 6.0 [facility] Work Phone: [phone] Complete Blood Count + Differential 0.2 % 0.0 - 0.9 [facility] Phone: [phone] Comment on above: Immature Granulocyte Count (IG) includes promyelocytes, myelocytes and metamyelocytes but does not include bands. Percent differential counts (%) should be interpreted in the context of the absolute cell counts (cells/L). Complete Blood Count + Differential 0.0 {/100_WBC} 0.0-0.0 [facility] Work Phone: [phone] Creatinine, Serumon 07-23-20 21 Creatinine [Mass/Vol] 1.33 mg/dL above high threshold See Below [employer] [facility] [employer] Work Phone: Comment on above: Reference Range: 0.5 0 - 1.30 Creatinine, Serum 68 {mL/min/1.73m2} >60 [employer] [facility] Work Phone: Comment on above: CALCULATIONS OF DELANEY MATED GFR ARE PERFORMED USING THE MDRD STUDY EQUATION FOR THE IDMS-TRACEABLE CREATININE METHODS. CLIN CHEM 2007;53:766-72 Creatinine, Serum 56 {mL/min/1.73m2} Abnormal >60 [employer] [facility] Work Phone: Follow Up (Rheumatology)on 0 12-24-2020 [...] DIET AND HEALTH - ARNOL; Status:Active; Requested for:[id number]; Perform:Immunetics;Ordered; For:Class 3 severe obesity due to excess calories with body mass index (BMI) of 45.0 to 49.9 in adult; Ordered By:Rosie Guerrero; HEART HEALTHY DIET - ARNOL; Status:Active; Requested for:24Dec2020; Perform:ARNOL Kandi;Ordered; For:Class 3 severe obesity due to excess calories with body mass index (BMI) of 45.0 to 49.9 in adult; Ordered By:Rosie Guerrero; Primary osteoarthritis involving multiple joints Stop: Indomethacin 50 MG Oral Capsule Rx By: Rosie Guerrero; Dispense: 30 Days ; #:60 Capsule; Refill: 5;For: Primary osteoarthritis involving multiple joints; ERVIN = N; Verified Transmission to [id number] Start: Celecoxib 200 MG Oral Capsule (Celecoxib); TAKE 1 CAPSULE Daily Rx By: Rosie Guerrero; Dispense: 0 Days ; #:30 Capsule; Refill: 5;For: Primary osteoarthritis involving multiple joints; ERVIN = N; Sent To: [id number] Raynaud's disease Albumin, Serum; Status:In Progress - Specimen/Data Collected; Done: [id number] Perform:Lab Services - Lab To Draw (Blood Test); Due:24Mar2021;Ordered; For:Raynaud's disease; Ordered By:Rosie Guerrero; ALT - Alanine Aminotransferase, Serum; Status:In Progress - Specimen/Data Collected; Done: [id number] Perform:Lab Services - Lab To Draw (Blood Test); Due:24Mar2021;Ordered; For:Raynaud's disease; Ordered By:Rosie Guerrero; AST; Status:In Progress - Specimen/Data Collected; Done: [id number] Perform:Lab Services - Lab To Draw (Blood Test); Due:24Mar2021;Ordered; For:Raynaud's disease; Ordered By:Rosie Guerrero; Blood Urea Nitrogen, Serum; Status:In Progress - Specimen/Data Collected; Done: [id number] Perform:Lab Services - Lab To Draw (Blood Test); Due:24Mar2021;Ordered; For:Raynaud's disease; Ordered By:Rosie Guerrero; C Reactive Protein, Serum; Status:In Progress - Specimen/Data Collected; Done: [id number] Perform:Lab Services - Lab To Draw (Blood Test); Due:24Mar2021;Ordered; For:Raynaud's disease; Ordered By:Rosie Guerrero; Complete Blood Count + Differential; Status:In Progress - Specimen/Data Collected; Done: 50Sdt4026 Perform:Lab Services - Lab To Draw (Blood Test); Due:24Mar2021;Ordered; For:Raynaud's disease; Ordered By:Rosie Guerrero; Creatinine, Serum; Status:In Progress - Specimen/Data Collected; Done: 63Mgx4969 Perform:Lab Services - Lab To Draw (Blood Test); Due:33Ozn1218;Ordered; For:Raynaud's disease; Ordered By:Rosie Guerrero; Hemoglobin A1C; Status:In Progress - Specimen/Data Collected; Done: 97Xpx5709 Perform:Lab Services - Lab To Draw (Blood Test); Due:24Mar2021;Ordered; For:Raynaud's disease; Ordered By:Rosie Guerrero; Sedimentation Rate, Erythrocyte; Status:In Progress - Specimen/Data Collected; Done: 28Sry4514 Perform:Lab Services - Lab To Draw (Blood [...] A1Con 12-24-2020 Glucose [Mass/Vol] 203 mg/dL Normal [facility] Comment on above: Performed By: #### H BA1E #### [facility] [address] [place] [address] HbA1c (Bld) [Mass fraction] 8.7 % Normal [facility] Comment on above: Result Comment: Diag nosis of Diabetes-Adults Non-Diabetic: < or = 5.6% Increased risk for developing diabetes: 5.7-6.4% Diagnostic of diabetes: > or = 6.5% . Monitoring of Diabetes Age (y) Therapeutic Goal (%) Adults: >18 <7.0 Pediatrics: 13-18 <7.5 7-12 <8.0 0- 6 7.5-8.5 [employer]. Diabetes Care 33(S1), Jun 2009. Performed By: #### H BA1E #### [facility] [address] [place] [address] Hemoglobin A1Con 12-24-2020 Glucose [Mass/Vol] 203 mg/dL [employer] [facility] Work Phone: HbA1c (Bld) [Mass fraction] 8.7 % [employer] [facility] Work Phone: Comment on above: Diagnosis of Diabete s-Adults Non-Diabetic: < or = 5.6% Increased risk for developing diabetes: 5.7-6.4% Diagnostic of diabetes: > or = 6.5%. Monitoring of Diabetes Age (y) Therapeutic Goal (%) Adults: >18 <7.0 Pediatrics: 13-18 <7.5 7-12 <8.0 0- 6 7.5-8.5 [employer]. Diabetes Care 33(S1), Jun 2009. Laboratory - Chemistry and C hemistry - challengeon 12-24-2020 AST With P-5'-P [Catalytic activity/Vol] 22 U/L 9 - 39 [employer] [facility] Work Phone: SEDIMENTATION RATE, ERYTHROC YTEon 12-24-2020 SEDIMENTATION RATE, ERYTHROCYTE 39 mm/h High 0 - 20 [facility] Comment on above: Performed By: #### E SRWS #### [facility] [address] [place] [address] Sedimentation Rate, Erythroc yteon 12-24-2020 ESR (Bld) [Velocity] 39 mm/h above high threshold 0 - 20 [employer] [facility] Work Phone: [phone] Tobacco Screening.on 021 Fall risk assessment a) No falls within the last year [employer] Work Phone: [phone] Tobacco use status [facility] b) No [employer] [facility] Work Phone: [phone] UREA NITROGENon 12-24-2020 Urea nitrogen [Mass/Vol] 17 mg/dL Normal - [facility] Comment on above: Performed By: #### U GIORGIO #### [facility] [address] [place] [address] Follow Up (Rheumatology)on 0 06-25-2020 Follow Up [...] joints; ERVIN = N; Verified Transmission to [facility][id number]; Last Updated By: [employer]; 06/25/2020 3:29:03 PM Patient Discussion/Summary It was [...] occurred today Lab and xray tests were reviewed--[facility] This visit has a moderate risk for [...] UT) Oral CapsuleTAKE DIRECTED. Immunizations 12 Influenza [id number] 2019 Vitals Vital Signs Recorded: 25Jun2020 03:17PM Oknhhzelqkl42.4 F Heart Rate70 Systo (more content not included)... Normal [employer] Slim 10-08-2019 MEKA Telephone (SPPRAD) JAME WALLACE ( ) 1965 M Date Time Provider Department 10/08/19 MAC CARVAJAL (SHIMA) JULIO During your visit today, we recorded the following information about you: Mac Carvajal APRN.CNP 10/08/2019 1:47 PM Signed Received in[employer]rainStorm Cell The[employer]et message re: need for pre-operative/pre-procedura l COVID19 [...] be cc'd to receive Jame's results. Kindly, Mac Carvajal APRN.CNP Allergies As of Date: 10/08/2019 (No Known Allergies) Date Reviewed: 08/11/2019 Reviewed by: Jaymie (Shima) Julio - Fully Assessed Reason for Visit: Covid-19 Hotline [5900] Primary Visit Diagnosis:Preoperative testing [Z01.818] Order(s):2019 CORONAVIRUS [SQCOVID] Order #: [id number] FUTURE Prescriptions as of 10/08/2019 Sig: ETODOLAC [...] obese (HCC) [E66.01] More... Encounter Status:Closed by MAC CARVAJAL on 10/08/19 [facility] MRI UPPER EXTREMITY RIGHT W JT WO CONTRASTon 01-24-2019 Patient Name: JAME SHELTON ---MRI--- Exam Date/Time 01/24/2019 07:42:41 EDT Exam MRI Up Ext Joint w/o Contrast Right Ordering Physician MANDO DESIR MICHELLE Accession Number [id number] CPT4 Codes 07399 () Reason For Exam right pain Report [...] NEIL Transcribed Date and Time: 01/24/2019 7:58 [facility], [place] Incoming Radiology Results From [facility] - 01/24/2019 8:04 AM EDT Patient Name: JAME WALLACE ---MRI--- Exam Date/Time 01/24/2019 07:42:41 EDT Exam MRI Up Ext Joint w/o Contrast Right Ordering Physician MANDO DESIR MICHELLE Accession Number [id number] CPT4 Codes 29677 () Reason For Exam right pain Report [...] NEIL Transcribed Date and Time: 01/24/2019 7:58 [place], [place] MRI Up Ext Joint w/o Contras t Righton 01-24-2019 MRI Up Ext Joint w/o Contrast Right Patient Name: JAME WALLACE MRI Exam Date/Time 01/24/2019 07:42:41 EDT Exam MRI Up Ext Joint w/o Contrast Right Ordering Physician MANDO DESIR MICHELLE Accession Number [id number] CPT4 Codes 45124 () Reason For Exam right pain Report [...] Transcribed Date and Time: 01/24/2019 7:[address] [facility] [address] HEAD W/O CONTRASTon 05-27 Protein mass conc Performed at [facility] APPROVED BY: RALPH BROUSSARD MD HISTORY: [...] appear normal. IMPRESSION: NORMAL HEAD CT Normal [facility] Comprehensive Panelon 2017 Albumin mass conc 3.3 g/dL Low 3.4-5.0 [facility] Comment on above: Performed By: #### L P14 ####[facility] [place], [place] [address] ALP enzyme act/vol 96 U/L Normal 46-116 [facility] Comment on above: Performed By: #### L P14 ####[address] [address] ALT-SGPT Blood 29 U/L Normal 14-63 [facility] Comment on above: Performed By: #### L P14 ####[place] [address] Anion gap 3 molar conc 10 mmol/L Normal 8-20 [facility] Comment on above: Performed By: #### L P14 ####[place] [address] AST-SGOT Blood 20 U/L Normal 15-37 [facility] Comment on above: Performed By: #### L P14 ####[place] [address] Bilirubin Ql (U) 0.2 mg/dL Normal 0.2-1.0 [facility] Comment on above: Performed By: #### L P14 ####[address] [address] Calcium mass conc 9.3 mg/dL Normal 8.5-10.1 [facility] Comment on above: Performed By: #### L P14 ####[address] [address] Chloride molar conc 103 mmol/L Normal 98-107 [facility] Comment on above: Performed By: #### L P14 ####[place] [address] CO2 molar conc 30 mmol/L Normal 21-32 [facility] Comment on above: Performed By: #### L P14 ####[place] [address] Creatinine mass conc 1.26 mg/dL High 0.67-1.17 [facility] Comment on above: Performed By: #### L P14 ####[facility] [place] [address] Glucose mass conc 160 mg/dL High 70-99 [facility] Comment on above: Performed By: #### L P14 ####[place] [address] Potassium molar conc 4.2 mmol/L Normal 3.5-5.1 [facility] Comment on above: Performed By: #### L P14 ####[place] [address] Protein mass conc 7.0 g/dL Normal 6.4-8.2 [facility] Comment on above: Performed By: #### L P14 ####[place] [address] Sodium molar conc 139 mmol/L Normal 136-145 [facility] Comment on above: Performed By: #### L P14 ####[place] [address] Urea nitrogen mass conc (Bld) 19 mg/dL Normal 7-25 [facility] Comment on above: Performed By: #### L P14 ####[place] [address] Urea nitrogen/Creatinine mass ratio 15 mg/mg Normal 10-20 [facility] Comment on above: Performed By: #### L P14 ####[place] [address] Hemogram/Diffon 05-27-2018 Abs. Baso 0.07 thou/cmm Normal 0.00-0.08 [facility] Comment on above: Performed By: #### L CBCD ####[place] [address] Abs. Webb 1.33 thou/cmm High 0.20-1.00 [facility] Comment on above: Performed By: #### L CBCD ####[place] [address] Abs. Neut (ANC) 6.83 thou/cmm High 3.00-5.67 [facility] Comment on above: Result Comment: PEDRO ECTED: Previous result = 6.80, verified at 21:23 on 05/27/18. Performed By: #### L CBCD ####[address] [address] Basophils/100 WBC Auto (Bld) 0.6 % Normal [facility] Comment on above: Performed By: #### L CBCD ####[address] [address] Eosinophils Auto #/vol (Bld) 0.21 thou/cmm Normal 0.00-0.41 [facility] Comment on above: Performed By: #### L CBCD ####[address] [address] Eosinophils/100 WBC Auto (Bld) 1.9 % Normal [facility] Comment on above: Performed By: #### L CBCD ####[address] [address] Erythrocyte distribution width Auto Ratio (RBC) 13.9 % Normal 11.5-15.9 [facility] Comment on above: Performed By: #### L CBCD ####[address] [address] Hematocrit Auto Volume Fraction (Bld) 43.7 % Normal 42.0-52.0 [facility] Comment on above: Performed By: #### L CBCD ####[address] [address] Hemoglobin mass conc (Bld) 14.3 g/dL Normal 14.0-18.0 [facility] Comment on above: Performed By: #### L CBCD ####[address] [address] Lymphocytes Auto #/vol (Bld) 2.86 thou/cmm Normal 1.50-3.65 [facility] Comment on above: Performed By: #### L CBCD ####[address] [address] Lymphocytes/100 WBC Auto (Bld) 25.3 % Normal [facility] Comment on above: Performed By: #### L CBCD ####[address] [address] MCH Auto Entitic mass (RBC) 30.8 pg Normal 27.0-31.0 [facility] Comment on above: Performed By: #### L CBCD ####[place] [address] MCHC Auto mass conc (RBC) 32.7 % Normal 32.0-36.0 [facility] Comment on above: Performed By: #### L CBCD ####[place] [address] MCV Auto Entitic volume (RBC) 94.0 fL Normal 80.0-94.0 [facility] Comment on above: Performed By: #### L CBCD ####[place] [address] Monocytes/100 WBC Auto (Bld) 11.8 % Normal [facility] Comment on above: Performed By: #### L CBCD ####[place] [address] Platelet mean volume Auto Entitic volume (Bld) 11.2 fL High 7.1-10.5 [facility] Comment on above: Performed By: #### L CBCD ####[place] [address] Platelets Auto #/vol (Bld) 262 thou/cmm Normal 150-400 [facility] Comment on above: Performed By: #### L CBCD ####[place] [address] RBC Auto #/vol (Bld) 4.65 mil/cmm Normal 4.60-6.20 [facility] Comment on above: Performed By: #### L CBCD ####[place] [address] Seg Neutrophil 60.4 % Normal [facility] Comment on above: Performed By: #### L CBCD ####[place] [address] WBC Auto #/vol (Bld) 11.3 thou/cmm High 4.8-10.8 [facility] Comment on above: Performed By: #### L CBCD ####[facility] [place] [id number] MDRD eGFRon 05-27-2018 GFR/1.73 sq M predicted among non-blacks MDRD vol rate/area (S/P/Bld) mL/min/{1.73_m2} Normal >60mL/min/ 1.73m2 [facility] Comment on above: Result Comment: If t he patient is , multiply the result by 1.210. Performed By: #### L GFR ####[facility] [place], [place] [address] LUMBOSACRAL SPINE MIN 4 VIEW Son 04-26-2018 LUMBOSACRAL SPINE MIN 4 VIEWS Performed at [facility] APPROVED BY: ROYER TOWNSEND MD LUMBAR SPINE [...] the level of the iliac crest. Normal [facility] KNEE COMP 4 OR MORE VIEWS UN ILATERALon 12-17-2017 Protein mass conc Performed at [facility] APPROVED BY: Mele Clayton MD EXAM TITLE: RIGHT KNEE COMP 4 OR MORE VIEWS UNILATERAL, KNEES BOTH STANDING AP DATE: 12/17/2017 14:38 (accession [id number]), 12/17/2017 14:39 (accession [id number]) COMPARISON: None. CLINICAL INDICATION/HISTORY: Status post fall [...] Very slight bilateral medial compartmental narrowing. Normal [facility] KNEES BOTH STANDING APon Protein mass conc Performed at [facility] APPROVED BY: Mele Clayton MD EXAM TITLE: RIGHT KNEE COMP 4 OR MORE VIEWS UNILATERAL, KNEES BOTH STANDING AP DATE: 12/17/2017 14:38 (accession [id number]), 12/17/2017 14:39 (accession [id number]) COMPARISON: None. CLINICAL INDICATION/HISTORY: Status post fall [...] Very slight bilateral medial compartmental narrowing. Normal [facility] Vital Signs Date Time Vital Sign Value Performing Clinician Facility 03-11-2025 11:30-0400 Body temperature 97 [degF] Jenny [employer] BUSINESS SERVICES COORDINATOR-C Work Phone: [facility] 03-11-2025 11:30-0400 Diastolic blood pressure 72 mm[Hg] [employer] BUSINESS SERVICES COORDINATOR-C Work Phone: [facility] 03-11-2025 11:30-0400 Heart rate 65 /min [employer] BUSINESS SERVICES COORDINATOR-C Work Phone: [facility] 03-11-2025 11:30-0400 Respiratory rate 16 /min [employer] SERVICES COORDINATOR-C Work Phone: [facility] 03-11-2025 11:30-0400 SaO2% (BldA) [Mass fraction] 93 % [employer] BUSINESS SERVICES COORDINATOR-C Work Phone: [facility] 03-11-2025 11:30-0400 Systolic blood pressure 116 mm[Hg] [employer] BUSINESS SERVICES COORDINATOR-C Work Phone: [facility] 03-11-2025 11:15-0400 Inhaled oxygen flow rate 2 L/min [employer] BUSINESS SERVICES COORDINATOR-C Work Phone: [facility] 03-11-2025 08:05-0400 Body height 182.88 cm [employer] BUSINESS SERVICES COORDINATOR-C Work Phone: [facility] 03-11-2025 08:05-0400 Body mass index (BMI) [Ratio] 49.3 kg/m2 Jennyshruthi Live BUSINESS SERVICES COORDINATOR-C Work Phone: [facility] 03-11-2025 08:05-0400 Body weight 165 kg [employer] SERVICES COORDINATOR-C Work Phone: [facility] 11-27-2024 16:03-0400 Body mass index (BMI) [Ratio] 50 kg/m2 Jennyshruthi Live BUSINESS SERVICES COORDINATOR-C Work Phone: [facility] 11-27-2024 16:03-0400 Body temperature 97.3 [degF] Jennyshruthi Live BUSINESS SERVICES COORDINATOR-C Work Phone: [facility] 11-27-2024 16:03-0400 Body weight 167.37 kg Jenny [employer] BUSINESS SERVICES COORDINATOR-C Work Phone: [facility] 11-27-2024 16:03-0400 Diastolic blood pressure 70 mm[Hg] Jenny [employer] BUSINESS SERVICES COORDINATOR-C Work Phone: [facility] 11-27-2024 16:03-0400 Heart rate 89 /min Jenny [employer] BUSINESS SERVICES COORDINATOR-C Work Phone: [facility] 11-27-2024 16:03-0400 Respiratory rate 18 /min [employer] BUSINESS SERVICES COORDINATOR-C Work Phone: [facility] 11-27-2024 16:03-0400 SaO2% (BldA) [Mass fraction] 98 % [employer] BUSINESS SERVICES COORDINATOR-C Work Phone: [facility] 11-27-2024 16:03-0400 Systolic blood pressure 138 mm[Hg] [employer] BUSINESS SERVICES COORDINATOR-C Work Phone: [facility] 10-23-2024 17:52-0400 Body height 182.88 cm [employer] BUSINESS SERVICES COORDINATOR-C Work Phone: [phone] 10-23-2024 17:52-0400 Body mass index (BMI) [Ratio] 50.1 kg/m2 [employer] BUSINESS SERVICES COORDINATOR-C Work Phone: [facility] 10-23-2024 17:52-0400 Body temperature 97.9 [degF] [employer] BUSINESS SERVICES COORDINATOR-C Work Phone: [facility] 10-23-2024 17:52-0400 Body weight 167.82 kg [employer] BUSINESS SERVICES COORDINATOR-C Work Phone: [facility] 10-23-2024 17:52-0400 Diastolic blood pressure 70 mm[Hg] [employer] BUSINESS SERVICES COORDINATOR-C Work Phone: [facility] 10-23-2024 17:52-0400 Heart rate 67 /min [employer] BUSINESS SERVICES COORDINATOR-C Work Phone: [facility] 10-23-2024 17:52-0400 Respiratory rate 18 /min [employer] BUSINESS SERVICES COORDINATOR-C Work Phone: [facility] 10-23-2024 17:52-0400 SaO2% (BldA) [Mass fraction] 95 % [employer] BUSINESS SERVICES COORDINATOR-C Work Phone: [facility] 10-23-2024 17:52-0400 Systolic blood pressure 140 mm[Hg] [employer] BUSINESS SERVICES COORDINATOR-C Work Phone: [facility] 08-22-2024 17:57-0400 Body height 182.88 cm [employer] BUSINESS SERVICES COORDINATOR-C Work Phone: [facility] 08-22-2024 17:57-0400 Body mass index (BMI) [Ratio] 50.3 kg/m2 [employer] BUSINESS SERVICES COORDINATOR-C Work Phone: [facility] 08-22-2024 17:57-0400 Body temperature 97.5 [degF] [employer] BUSINESS SERVICES COORDINATOR-C Work Phone: [facility] 08-22-2024 17:57-0400 Body weight 168.28 kg [employer] BUSINESS SERVICES COORDINATOR-C Work Phone: [facility] 08-22-2024 17:57-0400 Diastolic blood pressure 60 mm[Hg] [employer] BUSINESS SERVICES COORDINATOR-C Work Phone: [facility] 08-22-2024 17:57-0400 Heart rate 86 /min [employer] BUSINESS SERVICES COORDINATOR-C Work Phone: [facility] 08-22-2024 17:57-0400 Respiratory rate 18 /min [employer] BUSINESS SERVICES COORDINATOR-C Work Phone: [facility] 08-22-2024 17:57-0400 SaO2% (BldA) [Mass fraction] 96 % [employer] BUSINESS SERVICES COORDINATOR-C Work Phone: [facility] 08-22-2024 17:57-0400 Systolic blood pressure 120 mm[Hg] Jenny Live BUSINESS SERVICES COORDINATOR-C Work Phone: [facility] 07-27-2023 18:27-0500 Body height 182.[address] [facility] 07-27-2023 18:27-0500 Body mass index (BMI) [Ratio] 49.5 kg/m2 [facility] 07-27-2023 18:27-0500 Body temperature 97.5 [degF] [place] 07-27-2023 18:27-0500 Body weight 165.[address] [facility] 07-27-2023 18:27-0500 Diastolic blood pressure 70 mm[Hg] [facility] 07-27-2023 18:27-0500 Heart rate 74 /min [facility] 07-27-2023 18:27-0500 Respiratory rate 18 /min [place] 07-27-2023 18:27-0500 SaO2% (BldA) [Mass fraction] 95 % [facility] 07-27-2023 18:27-0500 Systolic blood pressure 140 mm[Hg] [facility] 09-06-2022 15:30-0400 Body height 182.[address] [facility] 09-06-2022 15:30-0400 Body mass index (BMI) [Ratio] 46.7 kg/m2 [facility] 09-06-2022 15:30-0400 Body temperature 97 [degF] [place] 09-06-2022 15:30-0400 Body weight 156.[address] [facility] 09-06-2022 15:30-0400 Diastolic blood pressure 70 mm[Hg] [facility] 09-06-2022 15:30-0400 Heart rate 81 /min [facility] 09-06-2022 15:30-0400 Respiratory rate 18 /min [place] 09-06-2022 15:30-0400 SaO2% (BldA) [Mass fraction] 96 % [facility] 09-06-2022 15:30-0400 Systolic blood pressure 140 mm[Hg] [facility] 08-18-2022 16:15-0400 Body mass index (BMI) [Ratio] 45.1 kg/m2 [facility] 08-18-2022 16:15-0400 Body temperature 96.8 [degF] [place] 08-18-2022 16:15-0400 Body weight 151.[address] [facility] 08-18-2022 16:15-0400 Diastolic blood pressure 70 mm[Hg] [facility] 08-18-2022 16:15-0400 Heart rate 83 /min [facility] 08-18-2022 16:15-0400 Respiratory rate 18 /min [place] 08-18-2022 16:15-0400 SaO2% (BldA) [Mass fraction] 95 % [facility] 08-18-2022 16:15-0400 Systolic blood pressure 132 mm[Hg] [facility] 05-25-2022 17:33-0500 Body mass index (BMI) [Ratio] 45.3 kg/m2 [facility] 05-25-2022 17:33-0500 Body temperature 97.7 [degF] [place] 05-25-2022 17:33-0500 Body weight 151.[address] [facility] 05-25-2022 17:33-0500 Diastolic blood pressure 80 mm[Hg] [facility] 05-25-2022 17:33-0500 Heart rate 79 /min [facility] 05-25-2022 17:33-0500 Respiratory rate 18 /min [place] 05-25-2022 17:33-0500 SaO2% (BldA) [Mass fraction] 95 % [facility] 05-25-2022 17:33-0500 Systolic blood pressure 130 mm[Hg] [facility] 12-23-2021 17:00-0400 Body height 182.[address] [facility] Work Phone: 12-23-2021 17:00-0400 Body mass index (BMI) [Ratio] 45.1 kg/m2 [facility] Work Phone: 12-23-2021 17:00-0400 Body temperature 98.1 [degF] [place] Work Phone: 12-23-2021 17:00-0400 Body weight 151.[address] [facility] Work Phone: 12-23-2021 17:00-0400 Diastolic blood pressure 70 mm[Hg] [facility] Work Phone: 12-23-2021 17:00-0400 Heart rate 78 /min [facility] Work Phone: 12-23-2021 17:00-0400 Respiratory rate 18 /min [place] Work Phone: 12-23-2021 17:00-0400 SaO2% (BldA) [Mass fraction] 96 % [facility] Work Phone: 12-23-2021 17:00-0400 Systolic blood pressure 132 mm[Hg] [facility] Work Phone: 11-07-2021 18:22-0400 Body mass index (BMI) [Ratio] 45.8 kg/m2 [facility] Work Phone: 11-07-2021 18:22-0400 Body temperature 97.7 [degF] [place] Work Phone: 11-07-2021 18:22-0400 Body weight 153.[address] [facility] Work Phone: 11-07-2021 18:22-0400 Diastolic blood pressure 70 mm[Hg] [facility] Work Phone: 11-07-2021 18:22-0400 Heart rate 106 /min [facility] Work Phone: 11-07-2021 18:22-0400 Respiratory rate 18 /min [place] Work Phone: 11-07-2021 18:22-0400 SaO2% (BldA) [Mass fraction] 94 % [facility] Work Phone: 11-07-2021 18:22-0400 Systolic blood pressure 160 mm[Hg] [facility] Work Phone: 11-07-2021 18:22-0400 Body height 182.[address] [facility] Work Phone: 11-07-2021 18:22-0400 Body mass index (BMI) [Ratio] 45.8 kg/m2 [facility] Work Phone: 11-07-2021 18:22-0400 Body temperature 97.7 [degF] [place] Work Phone: 11-07-2021 18:22-0400 Body weight 153.[address] [facility] Work Phone: 11-07-2021 18:22-0400 Diastolic blood pressure 70 mm[Hg] [facility] Work Phone: 11-07-2021 18:22-0400 Heart rate 106 /min [facility] Work Phone: 11-07-2021 18:22-0400 Respiratory rate 18 /min [place] Work Phone: 11-07-2021 18:22-0400 SaO2% (BldA) [Mass fraction] 94 % [facility] Work Phone: 11-07-2021 18:22-0400 Systolic blood pressure 160 mm[Hg] [facility] Work Phone: 10-03-2021 15:45-0400 Body temperature 98.6 [degF] Scott Chatal RAMPMAN.COSTUME SHOP COORDINATOR Work Phone: [facility] 10-03-2021 15:45-0400 Body weight 152.63 kg Scott Chatal RAMPMAN.COSTUME SHOP COORDINATOR Work Phone: [facility] 10-03-2021 15:45-0400 Diastolic blood pressure 92 mm[Hg] Scott Chatal RAMPMAN.COSTUME SHOP COORDINATOR Work Phone: [facility] 10-03-2021 15:45-0400 Heart rate 83 /min Scott Chatal RAMPMAN.COSTUME SHOP COORDINATOR Work Phone: [facility] 10-03-2021 15:45-0400 Respiratory rate 18 /min Scott Chatal RAMPMAN.COSTUME SHOP COORDINATOR Work Phone: [facility] 10-03-2021 15:45-0400 SaO2% (BldA) [Mass fraction] 96 % Scott Chatal RAMPMAN.COSTUME SHOP COORDINATOR Work Phone: [facility] 10-03-2021 15:45-0400 Systolic blood pressure 134 mm[Hg] Scott Rodriguez APRN.COSTUME SHOP COORDINATOR Work Phone: [facility] 07-28-2021 18:10-0500 Body mass index (BMI) [Ratio] 46.2 kg/m2 [facility] Work Phone: 07-28-2021 18:10-0500 Body temperature 97.7 [degF] [place] Work Phone: 07-28-2021 18:10-0500 Body weight 154.[address] [facility] Work Phone: 07-28-2021 18:10-0500 Diastolic blood pressure 60 mm[Hg] [facility] Work Phone: 07-28-2021 18:10-0500 Heart rate 76 /min [facility] Work Phone: 07-28-2021 18:10-0500 Respiratory rate 18 /min [place] Work Phone: 07-28-2021 18:10-0500 SaO2% (BldA) [Mass fraction] 95 % [facility] Work Phone: 07-28-2021 18:10-0500 Systolic blood pressure 128 mm[Hg] [facility] Work Phone: 12-24-2020 09:03-0400 Body mass index (BMI) [Ratio] 45.71 kg/m2 Jenny Live Work Phone: [facility] Work Phone: 12-24-2020 09:03-0400 Body surface area Derived from formula 2.78 m2 [employer] Live Work Phone: [facility] Work Phone: 12-24-2020 09:03-0400 Body temperature 98.6 [degF] Jenny Live Work Phone: [employer] [facility] Work Phone: 12-24-2020 09:03-0400 Body weight 161.48 kg [employer] Live Work Phone: [employer] [facility] Work Phone: 12-24-2020 09:03-0400 Diastolic blood pressure 71 mm[Hg] [employer] Live Work Phone: [employer] [facility] Work Phone: 12-24-2020 09:03-0400 Heart rate 65 /min [employer] Work Phone: [employer] [facility] Work Phone: 12-24-2020 09:03-0400 Respiratory rate 18 /min [employer] Work Phone: [employer] [facility] Work Phone: 12-24-2020 09:03-0400 SaO2% (BldA) [Mass fraction] 98 % [employer] Live Work Phone: [employer] [facility] Work Phone: 12-24-2020 09:03-0400 Systolic blood pressure 122 mm[Hg] [employer] Live Work Phone: [employer] [facility] Work Phone: 12-24-2020 09:03-0400 4 1 [employer] Live Work Phone: [employer] [facility] Work Phone: Comment on above: Ceferino 06-13-2019 16:43-0500 BMI (Body Mass Index) 49.05 kg/m2 Rosie Guerrero [employer] [facility] Work Phone: 06-13-2019 16:43-0500 Body Temperature 98.6 [degF] Rosie Izquierdomichelezoie [facility] Work Phone: Comment on above: Method: Oral 06-13-2019 16:43-0500 Body weight 173.28 kg Rosie Guerrero [facility] Work Phone: 06-13-2019 16:43-0500 BP Diastolic 84 mm[Hg] Rosie Guerrero [facility] Work Phone: Comment on above: Location: LUE; Position: Sitting 06-13-2019 16:43-0500 BP Systolic 144 mm[Hg] Rosie Izquierdomichelezoie [facility] Work Phone: Comment on above: Location: LUE; Position: Sitting 06-13-2019 16:43-0500 BSA (Body Surface Area) 2.86 m2 Rosie Izquierdoconradbrittnytay [facility] Work Phone: 06-13-2019 16:43-0500 Pulse (Heart Rate) 108 /min Rosie Izquierdomichelezoie [facility] Work Phone: 12-13-2018 16:58-0400 BMI (Body Mass Index) 47.51 kg/m2 Rosie Izquierdomichelegonzalotay [facility] Work Phone: 12-13-2018 16:58-0400 Body Temperature 98.2 [degF] Rosie Izquierdomichelegonzalotay [facility] Work Phone: Comment on above: Method: Oral 12-13-2018 16:58-0400 Body weight 167.83 kg Rosie Guerrero [facility] Work Phone: 12-13-2018 16:58-0400 BP Diastolic 82 mm[Hg] Rosie Izquierdomichelegonzalotay [facility] Work Phone: Comment on above: Location: LUE; Position: Sitting 12-13-2018 16:58-0400 BP Systolic 124 mm[Hg] Rosie Guerrero [employer] [facility] Work Phone: Comment on above: Location: LUE; Position: Sitting 12-13-2018 16:58-0400 BSA (Body Surface Area) 2.82 m2 Rosie Saldanatay [employer] Work Phone: 12-13-2018 16:58-0400 Pulse (Heart Rate) 9 /min Rosie Saldanatay [employer] [facility] Work Phone: 12-13-2018 16:58-0400 Pulse Oximetry 93 % Rosie Guerrero [employer] [facility] Work Phone: Encounters Encounter Date Encounter Type Care Provider Facility Start: 03-16-2025 ambulatory [facility] Facility:[place] Start: 03-16-2025 End: 03-17-2025 Evaluation and management of inpatient Jenny Live BUSINESS SERVICES COORDINATOR Facility:[facility] Start: 03-15-2025 End: 03-16-2025 Emergency department patient visit JENNY L LIVE Facility:[facility] Start: 03-11-2025 End: 03-11-2025 Admission to same day surgery center Dr. Edmundo Wiggins MD -[facility] Start: 03-11-2025 End: 03-11-2025 ambulatory Jenny Live BUSINESS SERVICES COORDINATOR-C Work Phone: -[facility] Start: 03-10-2025 End: 03-10-2025 Emergency department patient visit JENNY L LIVE Facility:[facility] Start: 02-27-2025 End: 02-27-2025 Patient encounter procedure LIMA COLE COSTUME SHOP COORDINATOR Office [facility] - MH C200 Start: 02-27-2025 End: 02-27-2025 ambulatory JENNY LIVE Facility:[facility] Start: 02-24-2025 End: 09-23-2025 Telephone encounter To Be Assigned [facility] Comment on above: need to be seen for large kidney stone Start: 02-24-2025 ambulatory JENNY LIVE Facilit y:[id number] Start: 02-24-2025 End: 02-24-2025 ambulatory DANI ROPER Not Available Start: 02-23-2025 End: 02-23-2025 ambulatory DANI ROPER Not Available Start: 02-19-2025 End: 02-22-2025 Evaluation and management of inpatient LULA MONTOYA DO [facility] Start: 02-18-2025 End: 02-19-2025 Emergency department patient visit JENNY L CALOS Facility:[facility] Start: 02-16-2025 End: 02-16-2025 Emergency department patient visit JANETTE COLLINS DO [facility] Start: 02-07-2025 End: 02-07-2025 Emergency department patient visit JENNY L LIVE Facility:[facility] Start: 11-17-2024 End: 11-17-2024 Emergency department patient visit JENNY LIVE Facility:[facility] Start: 10-24-2024 End: 10-24-2024 Patient encounter procedure Jennyshruthi RaeLive BUSINESS SERVICES COORDINATOR-C -Laboratory Specimen Work Phone: Start: 10-24-2024 End: 10-24-2024 ambulatory Jennyshruthi RaeLive BUSINESS SERVICES COORDINATOR-C Work Phone: [facility] Work Phone: Start: 08-22-2024 End: 08-22-2024 ambulatory Jennyshruthi Live BUSINESS SERVICES COORDINATOR-C Work Phone: [facility] Work Phone: Start: 08-22-2024 End: 08-22-2024 Patient encounter procedure Jennyshruthi RaeLive BUSINESS SERVICES COORDINATOR-C -Laboratory, Specimen Work Phone: Start: 08-22-2024 End: 08-22-2024 ambulatory Jenny Live BUSINESS SERVICES COORDINATOR Facility:[facility] Start: 07-27-2023 End: 07-27-2023 ambulatory [facility] Work Phone: Start: 07-27-2023 End: 07-27-2023 Patient encounter procedure [facility]-Laboratory, Specimen Work Phone: Start: 07-18-2023 ambulatory Britta Simeon Cl inical Communication Start: 07-18-2023 Patient encounter procedure Britta Simeon Clinical Communication Start: 02-01-2023 Orders Only Madhuri ramirez PA-C Work Phone: [facility] [place] Comment on above: Pain (Primary Dx) Start: 09-06-2022 End: 09-06-2022 ambulatory [facility] Work Phone: Start: 09-06-2022 End: 09-06-2022 Patient encounter procedure [facility]-Laboratory, Specimen Start: 02-08-2022 ambulatory Jaymie Leigh MA [facility] Comment on above: Population Health Na vigation Outreach (hcc) Start: 12-24-2021 End: 12-24-2021 Patient encounter procedure [facility]-Laboratory, Specimen Start: 11-07-2021 End: 11-07-2021 [facility] Start: 10-03-[address] Scan Comment on above: Radiology CT Radio Gen RMP Start: 10-03-2021 End: 10-03-2021 Patient encounter procedure Scott Rodriguez APRN.COSTUME SHOP COORDINATOR Work Phone: [facility] Comment on above: Dizziness (Primary D x); Folliculitis Start: 09-15-2021 Chart abstracting Unknown Neuro logy Start: 06-21-2021 AUDIT Jenny randolph Work Phone: [employer] [facility] Work Phone: Start: 12-26-2020 Chart Update Jenny randolph Work Phone: [employer] [facility] Work Phone: Start: 12-24-2020 FUV, Provider: Rosie Guerrero, Status: Pen, Time: 9:00 AM Jenny Tricia Live Work Phone: [employer] [facility] Work Phone: Start: 12-24-2020 Office outpatient visit 25 minutes Jenny Tricia Live Work Phone: [employer] [facility] Work Phone: Start: 12-23-2020 AUDIT Jennyshruthi Rae agustín Work Phone: [employer] [facility] Work Phone: Start: 06-13-2019 Patient encounter procedure Rosie Guerrero [employer] [facility] Work Phone: Start: 01-24-2019 End: 01-24-2019 Subsequent hospital visit by physician Janette Desir Work Phone: [facility] Comment on above: Arrived Start: 01-23-2019 End: 01-23-2019 Subsequent hospital visit by physician Janette Desir Work Phone: [facility] Comment on above: Arrived Start: 12-13-2018 Patient encounter procedure Rosie Guerrero [employer] [facility] Work Phone: Start: 06-07-2018 Patient encounter procedure Rosie Guerrero [employer] [facility] Work Phone: Start: 10-12-2017 Patient encounter procedure Rosie Guerrero [employer] [facility] Work Phone: Start: 06-18-2017 Patient encounter procedure Rosie Guerrero [employer] [facility] Work Phone: Start: 05-26-2017 Patient encounter procedure Rosie Guerrero [employer] [facility] Work Phone: Procedures Date Procedure Procedure Detail Performing Clinician Start: 03-11-2025 Cystoscopy and retro grade pyelography Jenny Live BUSINESS SERVICES COORDINATOR-C Work Phone: Start: 03-11-2025 Fluoroscopic guidance D ora Live BUSINESS SERVICES COORDINATOR-C Work Phone: Start: 02-21-2025 Collection venous bl [...] To Assigne d Arthroscopy of knee Rosie Timbo lawton Cholecystectomy Rosiegeorge Lee ski gallbladder removed LULA SAGHAFI DO History of Partial Colectomy Rosie Leecyril pin placed in right foot NAYE MONTOYA DO sigmoid colectomy LULAESSIE WHATLEYAFI DO Plan of Treatment Date Care Activity Detail Author Start: 12-05-2027 PROSTATE CANCER SCREENING DISCUSSION PROSTATE CANCER SCREENING DISCUSSION [facility] Start: 09-05-2026 Screening for malign ant neoplasm of colon [facility] Start: 02-18-2026 Creatinine measurement Basic Metabol ic Panel [facility] Start: 03-11-2025 Ambulation without limitation [facility] Start: 03-11-2025 Medical regimen orde rs management [facility] Start: 03-11-2025 Medication education [facility] Start: 03-11-2025 Patient discharge [facility] Start: 03-11-2025 Taking patient vital signs [facility] Start: 03-11-2025 [facility] Start: 03-03-2025 End: 03-03-2025 Patient encounter procedure 03/03/2025 9:20 AM EDT [facility] [address] [id number] Kishor Emmanuel MD [address] [place] [address] [facility] Start: 02-02-2025 COVID-19 Vaccine ( season) COVID-19 Vaccine ( season) [facility] Start: 02-02-2025 Influenza vaccination Influenza Vacc ine (#1) [facility] Start: 12-05-2023 Hepatitis B surface antibody level LDL CHOLESTEROL [facility] Start: 12-05-2023 Lipid panel Lipid Profile [facility] Start: 06-06-2023 Hemoglobin A1c measurement Hemoglobin A1C [facility] Start: 06-06-2023 Hemoglobin A1c/Hemoglobin.total in Blood HBA1C [facility] Start: 02-02-2023 Influenza vaccination INFLUENZA (#1) [facility] Start: 06-04-2022 DEPRESSION ASSESSMENT DEPRESSION ASS ESSMENT [facility] Start: 02-02-2022 Influenza vaccination C [facility] Start: 06-24-2021 FUV, Provider: Rosie Guerrero, Status: Pen, Time: 1:00 PM FUV, Provider: Rosie Guerrero, Status: Pen, Time: 1:00 PM [facility] Work Phone: Start: 2021 PROSTATE CANCER SCREENING DISCUSSION PROSTATE CANCER SCREENING DISCUSSION [facility] Start: 11-09-2020 Hemoglobin A1c/Hemoglobin.total in Blood HBA1C [facility] Start: 02-02-2019 Influenza vaccination Flu vaccine (# 1) [place], [place] Start: 01-24-2019 End: 01-24-2019 Appointment 01/24/2019 Appointment MRI Janette Desir, RAMPMAN - COSTUME SHOP COORDINATOR [address], [place] [address] [facility] Start: 2016 Colon cancer screen colonoscopy Colon cancer screen colonoscopy [place], [place] Start: 2016 Shingles (RZV) Vacci ne (1 of 2) Shingles (RZV) Vaccine (1 of 2) [facility] Start: 2016 Shingles Vaccine (1 of 2) Shingles Vaccine (1 of 2) [place] Start: 2016 SHINGRIX VACCINE (1 of 2) SHINGRIX VACCINE (1 of 2) [facility] Start: 06-05-2016 Hepatitis C antibody , confirmatory test DILATED RETINAL EXAM [facility] Start: 12-13-2014 Hepatitis B surface antibody level LDL CHOLESTEROL [facility] Start: 02-11-2014 3 comp foot exam completed DIABETIC FOOT EXAM [facility] Start: 08-17-2013 Hepatitis B screening URINE ALBUMIN:CREATININE RATIO [facility] Start: 2011 COLOGUARD (FIT-DNA) COLOGUARD (FIT-D NA) [facility] Start: 2011 Colonoscopy COLONOSCOPY [facility] Start: 2011 COLORECTAL CANCER SCREENING COLORECTAL CANCER SCREENING [facility] Start: [address] COLONOGRAPHY [facility] Start: 2011 FECAL OCCULT BLOOD FECAL OCCULT BLOO D [facility] Start: 2011 Screening for malign ant neoplasm of colon [facility] Start: 2011 SIGMOIDOSCOPY SIGMOIDOSCOPY [facility] Start: 2006 Lipid screen Lipid screen [place], [place] Start: 1985 DTaP/Tdap/Td vaccine (1 - Tdap) DTaP/Tdap/Td vaccine (1 - Tdap) [place] Start: 1985 Hepatitis A (HAV) Vaccine (optional start 19+ years) Hepatitis A (HAV) Vaccine (optional start 19+ years) [facility] Start: 1985 Hepatitis B vaccination Hepati tis B (HBV) Vaccine (1 of 3 - 19+ 3-dose series) [facility] Start: 1985 Pneumococcal vaccination Pneumococcal Vaccine(s) (50+ yrs) (1 of 2 - [facility] Start: 1985 Tetanus vaccination Tetanus (T d or Tdap) Booster [facility] Start: 1985 Urine microalbumin profile DTAP,TDAP,TD (1 - Tdap) [facility] Start: 1984 ANNUAL PCP TEAM DOOR TO DOOR SALESPERSON JANIA DISEASE VISIT ANNUAL PCP TEAM CHRONIC DISEASE VISIT [facility] Start: 1984 BP CONTROLLED (<130/80) BP CONTROLLE D (<130/80) [facility] Start: 1984 HEPATITIS C SCREENING HEPATITIS C SC CRYSTAL [facility] Start: 1984 Hepatitis C screening Hepatitis C An tibody [facility] Start: 1984 HIV SCREENING HIV SCREENING [facility] Start: 1984 Tdap Booster [facility] Start: 1982 ONE PNEUMOVAX PRIOR TO AGE 65 ONE PNEUMOVAX PRIOR TO AGE 65 [facility] Start: 1981 HIV screen [facility] screen [facility] [place] [place] Start: 1981 HIV screening HIV Test [facility] Start: 1978 Adult depression screening assessment DEPRESSION SCREENING [facility] Start: 1972 PNEUMOCOCCAL (1 - PCV) PNEUMOCOCCAL (1 - PCV) [facility] Start: 1971 COVID-19 VACCINE (1) COVID-19 VACCIN E (1) [facility] Start: 1966 COVID-19 VACCINE (#1) COVID-19 VACCI NE (#1) [facility] Start: 1966 Glaucoma screening Eye Exam [facility] Start: 1966 Urine screening for protein Urine Protein (microalbumin) [facility] Start: 1966 Diabetic foot examination Foot Exam [facility] Start: 1966 HEPATITIS B (1 of 3 - 3-dose series) HEPATITIS B (1 of 3 - 3-dose series) [facility] End: 03-02-2024 XR HAND GENERAL 3V PA/LAT/OBL LEFT XR HAND GENERAL 3V PA/LAT/OBL LEFT Radiology Routine Pain 1 Occurrences starting 02/01/2023 until 03/02/2024 [facility] Work Phone: Comment on above: 1 Occurrences starti ng 02/01/2023 until 03/02/2024 End: 03-02-2024 XR HAND GENERAL 3V PA/LAT/OBL RIGHT XR HAND GENERAL 3V PA/LAT/OBL RIGHT Radiology Routine Pain 1 Occurrences starting 02/01/2023 until 03/02/2024 [facility] Work Phone: Comment on above: 1 Occurrences starti ng 02/01/2023 until 03/02/2024 [facility] Immunizations Immunization Date Immunization Notes Care Provider Carlos delvisjoanna 02-20-2025 influenza, seasonal, injectable, preservative free; Translations: [FluLaval PF Prefilled Syringe ] LULA MONTOYA DO [facility] 12-04-2022 Hemoglobin A1C To Assigned [facility] 06-05-2019 influenza, injectabl e, quadrivalent, preservative free Jenny Live Work Phone: [facility] Work Phone: 05-04-2019 influenza, injectabl e, quadrivalent, preservative free Rosiegeorge Leetay [facility] Work Phone: Comment on above: Series: 04-07-2018 influenza, injectabl e, quadrivalent, preservative free Rosie Leetay [facility] Work Phone: Comment on above: Series: 10-24-2013 measles, mumps and rubella virus vaccine Jenny Live Work Phone: [facility] Payers Date Payer Category Payer Medicare [id number] 2025 [facility] Member Subscriber Plan / Payer (Effective 2025-Present) Name: Jame Wallace Relation to Subscriber: Self Name: Jame Wallace Payer ID: Not on file Type: O Address: [facility] [id number] [id number] 2024 Self-pay [id number] 2024 Unknown [id number] 2021 Unknown JOHN JOHN PATEL RUTH / JOHN [id number] 2021-Present [phone] [address] [address] [place] [address] EPO [id number] 2008 Unknown 1966 Unknown [id number] 159 1966 Unknown [id number] 159 1966 Unknown [id number]. 159 1966 Unknown [id number] [id number]. 159 1966 Unknown [id number]. 159 Medicare Private Health Insurance [facility] [id number] Unknown [id number] Unknown [id number] Unknown [id number] Unknown [id number] Unknown [id number] 462 Unknown [id number] [id number]. 462 Unknown [id number] [id number]. 462 Unknown [id number]. 462 Unknown [id number]. 462 Unknown [id number]. 462 Unknown [id number] 462 Social History Date Type Detail Facility Start: 1965 Sex Assigned At Not on file [place] Start: 10-03-2021 End: 12-15-2022 Never used tobacco Never used tobacco [facility] Start: 07-27-2011 End: 03-06-2025 Tobacco smoking status NHIS Never smoked tobacco [facility] Start: 04-07-2021 End: 10-03-2021 Alcohol intake Current non-drinker of alcohol (finding) [facility] Start: 1965 Sex Assigned At Male C [facility] Start: 09-23-2021 End: 10-03-2021 Exposure to SARS-CoV-2 (event) Not sure [facility] Start: 11-04-2020 End: 11-04-2020 Tobacco smoking status UTIS Unknown if ever smoked [facility] Start: 07-27-2011 Tobacco use and exposure Smokeless tobacco non-user [facility] Start: 10-03-2021 End: 12-15-2022 Tobacco use panel [facility] PHQ2 Score 0 [facility] Start: 10-15-2019 Gender identity Identifies as male gender (finding) [facility] Start: 10-15-2019 Sexual orientation Heterosexual (fin ding) [facility] Start: 06-04-2009 End: 08-28-2024 Sex Male (finding) [facility] Tobacco smoking status [facility] NEGATED: Highlighted row - - [facility] Work Phone: Medical Equipment Procedure Code Equipment Code Equipment Origin al Text Equipment Identifier Dates Screw 5.5mm Part ial Thread Titanium 55mm Bone Low Profile Head Self Tap - [id number] Start: 10-22-2019 Insulin Syringe-Needle U-100 (Bd [...] status health issues are not documented Disease [facility] Work Phone: Mental Status Date Assessment Result Facility 03-11-2025 Cognitive function Level Of Cons ciousness Drowsy [facility] Work Phone: 03-11-2025 Cognitive function Voice/Name [facility] Work Phone: NEGATED: Highlighted row Cognitive function [Interpretation] Cognitive status health issues are not documented Disease [facility] Work Phone: Clinical Notes 10-08-2015 to 03-11-2025 Note Date & Type Note Facility 03-11-2025 Consult note Note Date/Time March 11, 2025 9:00am [facility] Medical Records Department [address] [place] [address] Pre-Anesthesia Evaluation 03/11/25 0855 MR#: [id number] Acct: [id number] Name: JAME WALLACE Rep #:[id number] : 1965 59 From: Roman Ross PCP: Jenny Live NP-C Status:REG SDC Y Race: C Location: [place] [address]1 ASA Classification* ASA Classification ASA Classification: 2 [...] 3.290 uIU/mL 10/23/24, Unknown COAG INR 0.8 05/03/21, 21:08 Pre-Assessment Diagnosis/Proposed Procedure Planned Operative Procedure(s): (R) Cysto,Ureteroscopy,Retro,Laser,Stent Anesthesia History Anesthesia History - biotechnician: Anesthesia History - biotechnician Hx Hospitalization Yes: 02/2025 CHF 03/06/25 14:04 [...] take am of surgery PONV PONV - biotechnician: PONV - biotechnician Female No 03/06/25 14:04 HX of Motion [...] 03/11/25 08:05 Respiratory Assessment Respiratory Assessment - biotechnician: Respiratory Tract Infection Hx - biotechnician Hx Respiratory Tract Infection No 03/06/25 14:04 STOP Sleep Apnea STOP Sleep Apnea - biotechnician: STOP Sleep Apnea - biotechnician Hx Hypertension Yes: PER PT, CONTROLLED ON [...] Tobacco Use History Tobacco Use History - biotechnician: Tobacco Use History - biotechnician Tobacco Use Smoking Status Never smoker 03/06/25 14:04 Hx Tobacco Use No 03/06/25 14:04 Years Smoking Packs Smoked per Day Smoking Cessation Date was within the last 15 years Hx Smoking Cessation Date Hx Smoking Cessation Counseling Hematologic Medial History Hematologic Hx - biotechnician: Hematologic Medical Hx - gold marker Hx of Blood Transfusion No 03/06/25 14:04 [...] confused, unrespo /Reproduction History /Reproductive History - biotechnician: /Reproductive Hx- biotechnician Hx Now No 03/06/25 14:04 Gestational Age [...] tablet 45 mg PO DAILY #90 tabs 03/2 06/2803/10/25 Rx sumatriptan succinate 50 mg tablet See [...] additional complaints, except as documented. 03/11/25 0900 <Electronically signed by Roman Pichardo MD> Date _ Roman Pichardo MD Cosigner Signature: Date CC: ~ Signed [facility] Work Phone: 1(961) 464-937610-08-2025 Procedure note [facility] Medical Records Department [address] [place] [address] Operative Report 03/11/25 1037 MR#: [id number] Acct: [id number] Name: JAME WALLACE Rep #:[id number] : 1965 59 From: Edmundo Wiggins MD PCP: DAVID Marina Status:[facility] Location: [place] [address] Operative Report (Standard) Operative Information Date of Procedure: 03/11/25 Pre-Operative Diagnosis: Right kidney stone Post-Operative Diagnosis: The same Surgery/Procedure Performed: Cystoscopy right ureteroscopy laser lithotripsy of stone and right stent placement, right retrograde pyelogram senior energy consultant: No Type of Anesthesia: General RN Documented [...] fashion within the bladder with a 21 [place] Citizen rigid cystourethroscope cannulated the rightureter orifice with a Glidewire and a Pollick catheter performed a retrograde pyelogram, and then after this to put a wire up into the right kidneyover the wire I went in with a 8 [place] Citizen flexible Olympus ureteroscope was able to get [...] DAVID Live; Dr. Edmundo Wiggins MD~ Signed [facility]10-08-2025 Discharge summary [facility] Medical Records Department [address] [place] [address] Instructions for Home/Discharge Instructions 03/11/25 1036 MR#: [id number] Acct: [id number] Name: JAME WALLACE Rep #:[id number] : 1965 59 From: Edmundo Wiggins MD PCP: DAVID Marina Status:REG SDC Discharge Instructions DC O2, CPAP, BIPAP needs Home O2 Discharge instructions: No Dressing / Incision Discharge Activity: Return to Normal Activity and May Not Drive (while taking narcotic pain medications.) Dressing / Incision Call your doctor if you observe: Fever of 101 or Higher Follow Up Care Please Follow Up With: Edmundo Wiggins MD When: Call [phone] for an appointment Test Results: Test results from this visit will be discussed in further detail at your follow- up appointment, if applicable. Discharge Plan Admission Primary Reason for Your Visit: right kidney stone Attending Provider: Edmundo Wiggins Primary Care Provider: Jenny Live BUSINESS SERVICES COORDINATOR Instructions Print Language: Kuwaiti Discharge Orders/Prescriptions Prescriptions: New cephalexin 500 mg [...] MD [Med Staff - Active Staff, Urology] Jenny Live NP, BUSINESS SERVICES COORDINATOR-C [Primary Care Provider, Family Practice] Disposition Disposition (needs filled in before D/C Order can be placed): Home, Self Care 03/11/25 Lexie Wiggins MD CC: BUSINESS SERVICES COORDINATOR-C Jenny Live ~ Signed [facility]10-08-2025 Consult note [facility] Medical Records Department [address] [place] [address] Pre-Anesthesia Evaluation 03/11/25 0855 MR#: [id number] Acct: [id number] Name: JAME WALLACE Rep #:[id number] : 1965 59 From: Roman Ross PCP: DAVID Marina Status:REG SDC Y Race: C Location: [facility] ASA Classification* ASA Classification ASA Classification: 2 [...] (R) Cysto,Ureteroscopy,Retro,Laser,Stent Anesthesia History Anesthesia History - biotechnician: Anesthesia History - biotechnician Hx Hospitalization Yes: 02/2025 CHF 03/06/25 14:04 [...] take am of surgery PONV PONV - biotechnician: PONV - biotechnician Female No 03/06/25 14:04 HX of Motion [...] 03/11/25 08:05 Respiratory Assessment Respiratory Assessment - biotechnician: Respiratory Tract Infection Hx - biotechnician Hx Respiratory Tract Infection No 03/06/25 14:04 STOP Sleep Apnea STOP Sleep Apnea - biotechnician: STOP Sleep Apnea - biotechnician Hx Hypertension Yes: PER PT, CONTROLLED ON [...] Tobacco Use History Tobacco Use History - biotechnician: Tobacco Use History - biotechnician Tobacco Use Smoking Status Never smoker 03/06/25 14:04 Hx Tobacco Use No 03/06/25 14:04 Years Smoking Packs Smoked per Day Smoking Cessation Date was within the last 15 years Hx Smoking Cessation Date Hx Smoking Cessation Counseling Hematologic Medial History Hematologic Hx - biotechnician: Hematologic 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 10/08/25 0900 > Date _ Roman Pichardo MD Cosigner Signature: Date CC: ~ Signed [facility]09-26-2025 RobTAMELA JAME :1965 Registration Date:02/27/2025 [facility] [place] M.D., Mikey Ling M.D., Sarah Hassan M.D., Bony Hoffman M.D., Gita Day M.D.,Nirav Wang M.D., Timothy Malik M.D., Bari Meléndez M.D., Harshal Marie M.D., Nadir Phillips M.D., Kd Cruz, Lima Cole., N.P., & Raissa Adam N. P [address], 205, [phone] [place], [address] [place], [address] Return to Work Slip The above referenced patient may return to work on 03/02/25 Sincerely, [facility]09-23-2025 Telephone encounter Note* Telephone Encounter - Ivone Salmeron - 02/24/2025 9:48 AM EDT Hi, it hard stops me due to him being in er/express care at [facility] within 7 days for kidney stone. I can forward to the PSS. [id number] Miscellaneous Notes* Telephone Encounter - Ivone Salmeron - 02/24/2025 9:48 AM EDT Hi, it hard stops me due to him being in er/express care at [facility] within 7 days for kidney stone. I can forward to the PSS. * Telephone Encounter - Ivone Salmeron - 02/24/2025 9:30 AM EDT Patient's daughter called in, patient was supposed to have a procedure at [facility] but was denied and he could only come to [facility]. The kidney stone is very large. Please call patient to setup care. Thank you. #[phone] documented in this [id number] NotePatient's daughter called in, patient was supposed to have a procedure at [facility] but was denied and he could only come to [facility]. The kidney stone is very large. Please call patient to set up care. Thank you. #[phone] [facility]09-23-2025 Telephone encounter Note* Telephone Encounter - Ivone Salmeron - 02/24/2025 9:30 AM EDT Patient's daughter called in, patient was supposed to have a procedure at [facility] but was denied and he could only come to [facility]. The kidney stone is very large. Please call patient to setup care. Thank you. #[phone] [id number] NotePatient Education Material Cardiovascular Low Sodium Diet [...] vegetables, unless labeled sodium-free or low-sodium. ? [place] Citizen fries, pizza, tacos, and other fast foods. ? Pickles, olives, ketchup, and other condiments, especially soy sauce, unless labeled sodium-free or low-sodium. Where can you learn more? Go to https://www.ClearCycle.net/patientEd Enter V843 in the search box to learn more about Low Sodium Diet (2,000 Milligram): Care Instructions. Current as of: February 09, 2021 Content Version: 13.3 ? Profind. Care instructions adapted under license by your healthcare professional. If you have questions about a medical condition or this instruction, always ask your healthcare professional. Profind disclaims any warranty or liability for your [...] are for the f (more content not included)...[facility]09-21-2025 RobJAME RAPP :1965 Registration Date:02/19/2025 Admission Information Shortness of breath weakness severe decreased exercise tolerance Admit Date/Time:02/20/2025 14:08 EDT Discharge Date 02/22/2025 Admitting Physician - LULA MONTOYA DO Attending Physician - LULA MONTOYA DO Consulting Physician - OLIVER SEAMAN, BONY HASSAN MD, [facility] Primary Care Physician - JENNY LIVE All Diagnoses This Visit Acute congestive [...] rhythm, normal peripheral per (more content not included)...[facility]09-21-2025 Evaluation + Plan note Extracted from: Title:Progress/SOAP Note Author:VIRGINIA MONTOYA DO [facility] Date:02/22/25 Orders: POC Glucose, Blood, Collected Y/N, [...] Extracted from: Title:Progress/SOAP Note Author:VIRGINIA MONTOYA DO [facility] Date:02/21/25 Orders: PLATELET ONLY(PLATELET COUNT ONLY), ROUTINE, [...] the same course Extracted from: Title:Progress/SOAP Note Author:VIRGINIA MONTOYA DO [facility] Date:02/20/25 Orders: metoprolol(Lopressor = Metoprolol Tartrate), 37.5 [...] Labs (Last four charted values) WBC 7.8(FEB 18) Hgb L 12.3(FEB 18) Hct L 37.0(FEB 18) Plt 178(FEB 18) Na 143(FEB 18) K 4.0(FEB 18) CO2 [...] EDT Exam / procedure done by: PA, BUSINESS SERVICES COORDINATOR, reside nt under supervision of attending Physician. Extracted from: Title:Admission H & P Author:JO AGEE LULA Date:02/19/25 Orders: acetaminophen, 650 mg= 2 tabs, ORAL, [id number], PRN acetaminophen, 650 mg= 2 tabs, ORAL, Q6MCQXF, PRN acetaminophen, 650 mg= 2 tabs, ORAL, P6BSKEM, PRN acetaminophen-oxycodone(acetaminophen-oxycodone 325 mg-5 mg oral tablet = Percocet), 1 tabs, ORAL, N3RLXWM, PRN aspirin(Aspirin Low Dose), 81 mg= 1 tabs, ORAL, DAILY WITH BREAKFAST atorvastatin(Lipitor), 40 mg= 1 tabs, ORAL, DAILY buPROPion(Wellbutrin SR, Zyban (buPROPion SR)), 100 mg= 1 tabs, ORAL, BID celecoxib(CeleBREX), 200 mg= 1 caps, ORAL, BID ciprofloxacin = Cipro, 500 mg= 1 tabs, ORAL, [id number] DULoxetine(Cymbalta), 60 mg= 1 caps, ORAL, DAILY [...] BREAKFAST melatonin, 5 mg= 1 tabs, ORAL, QHS/[id number], PRN metFORMIN = Glucophage, 850 mg= 1 tabs, ORAL, BIDWM metoprolol(Lopressor = Metoprolol Tartrate), 37.5 mg= 1.5 tabs, ORAL, BID mirtazapine(Remeron), 7.5 mg= 1 tabs, ORAL, QHS multivitamin, 1 tabs, ORAL, DAILY naloxone = Narcan, 0.4 mg= 1 mL, IV Push, PRN, PRN ondansetron(ondansetron 4 mg oral tablet, disintegrating = Zofran), 4 mg= 1 tabs, ORAL, [id number], PRN pioglitazone(Actos), 45 mg= 3 tabs, ORAL, [...] Constant Order, Current ACLS Provider may, Initiate [employer] Advanced Cardiac Life support Algorithm per patient code status COMPMETA(CMP), ROUTINE, 02/19/2025 02:33:00 EDT Consult Physician(Physician Consult), 02/19/2025 02:33:00 EDT, ZARIA SEAMAN, Paolo VILLARREAL CHF Consult Physician(Physician Consult), 02/19/2025 02:33:00 EDT, OLIVER SEAMAN, BONY, 8mm ureteral stone Diet Order, 02/19/2025 02:28:00 EDT, Low Sodium Heart Healthy Level of Care Order, 02/19/2025 01:55:00 EDT, Medical Outpatient with Observation Services, LULA MONTOYA DO [facility] Nursing ONE TIME Task(If pt has Saline [...] EDT Request for Armband, 02/19/2025 06:51:00 EDT, [id number], Unable to scan Request for Bed Placement, [...] with all VS Weight, 02/20/2025 04:00:00 EDT, [id number] Acute congestive heart failure I need to [...] Date:02/27/2025 03:30:00 PM Scheduled Provider:LIMA COLE CNP Location:[place] [address] Appointment Type:Hospital Follow Up [facility] 09-21-2025 Progress note SHEKHARTAMELA JAME :1965 Registration Date:02/19/2025 Subjective Seen today doing [...] Inpatient acetaminophen, 650 mg= 2 tabs, ORAL, [id number], PRN acetaminophen, 650 mg= 2 tabs, ORAL, R8CGADD, PRN acetaminophen, 650 mg= 2 tabs, ORAL, J7CNOYX, PRN acetaminophen-oxycodone(acetaminophen-oxycodone 325 mg-5 mg oral tablet = Percocet), 1 tabs, ORAL, [id number], PRN apixaban(Eliquis), 5 mg= 1 tabs, ORAL, ONCE aspirin(Aspirin Low Dose), 81 mg= 1 tabs, ORAL, DAILY WITH BREAKFAST atorvastatin(Lipitor), 40 mg= 1 tabs, ORAL, DAILY buPROPion(Wellbutrin SR, Zyban (buPROPion SR)), 100 mg= 1 tabs, ORAL, BID celecoxib(CeleBREX), 200 mg= 1 caps, ORAL, BID ciprofloxacin = Cipro, 500 mg= 1 tabs, ORAL, C02QZWUO digoxin, 0.25 mg= 1 mL, IV Push, [...] BREAKFAST melatonin, 5 mg= 1 tabs, ORAL, QHS/[id number], PRN metFORMIN = Glucophage, 850 mg= 1 tabs, ORAL, BIDWM metoprolol(Lopressor = Metoprolol Tartrate), 5 mg= 5 mL, IV Push, C6OFYBF, PRN metoprolol(Lopressor = Metoprolol Tartrate), 50 mg= 1 tabs, ORAL, BID mirtazapine(Remeron), 7.5 mg= 1 tabs, ORAL, QHS multivitamin, 1 tabs, ORAL, DAILY naloxone = Narcan, 0.4 mg= 1 mL, IV Push, PRN, PRN ondansetron(ondansetron 4 mg oral tablet, disintegrating = Zofran), 4 mg= 1 tabs, ORAL, N7WNAYL, PRN tamsulosin(Flomax), 0.4 mg= 1 caps, ORAL, [...] care and therapy and treatment thank you [facility]09-21-2025 Progress note JAME WALLACE :1965 Registration Date:02/19/2025 [...] Last Charted Temp Oral 36.5 degC (FEB 22 07:23) Heart Rate Peripheral L 57 bpm (FEB 22 07:27) Resp Rate 18 br/min (FEB 22 07:27) SBP 118 mmHg (FEB 22 07:23) DBP 76 mmHg (FEB 22 07:23) General: Stable, with no apparent distress. Neck: JVP 7cm @ 45deg. No carotid bruits. CV: RRR no MRG; Normal S1S2; non-sustained, non-displaced PMI. Lungs: CTAx2. Abdomen: Benign. Extremities: No clubbing, cyanosis, or edema. Intact peripheral pulses. I/O's and DAILY WEIGHTS Default ECG/Telemetry: NSR with no acute ischemic changes Radiology: CXR without infiltrate or effusion Labs [facility]09-20-2025 Progress note JAME WALLACE :1965 [facility]:[id number] Registration Date:02/19/2025 Subjective Seen today feeling much [...] Inpatient acetaminophen, 650 mg= 2 tabs, ORAL, [id number], PRN acetaminophen, 650 mg= 2 tabs, ORAL, E8MVWOB, PRN acetaminophen, 650 mg= 2 tabs, ORAL, O0SIQUV, PRN acetaminophen-oxycodone(acetaminophen-oxycodone 325 mg-5 mg oral tablet = Percocet), 1 tabs, ORAL, M6TUPRX, PRN apixaban(Eliquis), 5 mg= 1 tabs, ORAL, ONCE aspirin(Aspirin Low Dose), 81 mg= 1 tabs, ORAL, DAILY WITH BREAKFAST atorvastatin(Lipitor), 40 mg= 1 tabs, ORAL, DAILY buPROPion(Wellbutrin SR, Zyban (buPROPion SR)), 100 mg= 1 tabs, ORAL, BID celecoxib(CeleBREX), 200 mg= 1 caps, ORAL, BID ciprofloxacin = Cipro, 500 mg= 1 tabs, ORAL, [id number] digoxin, 0.25 mg= 1 mL, IV Push, [...] BREAKFAST melatonin, 5 mg= 1 tabs, ORAL, QHS/[id number], PRN metFORMIN = Glucophage, 850 mg= 1 tabs, ORAL, BIDWM metoprolol(Lopressor = Metoprolol Tartrate), 5 mg= 5 mL, IV Push, [id number], PRN metoprolol(Lopressor = Metoprolol Tartrate), 50 mg= 1 tabs, ORAL, BID mirtazapine(Remeron), 7.5 mg= 1 tabs, ORAL, QHS multivitamin, 1 tabs, ORAL, DAILY naloxone = Narcan, 0.4 mg= 1 mL, IV Push, PRN, PRN ondansetron(ondansetron 4 mg oral tablet, disintegrating = Zofran), 4 mg= 1 tabs, ORAL, D2WBAZA, PRN tamsulosin(Flomax), 0.4 mg= 1 caps, ORAL, [...] we will continue with the same course [facility]09-20-2025 Hospital Discharge instructions Patient Education 02/21/2025 16:10:35 [...] Canned vegetables, unless labeled sodium-free or low-sodium. [place] Citizen fries, pizza, tacos, and other fast foods. Pickles, olives, ketchup, and other condiments, especially soy sauce, unless labeled sodium-free orlow-sodium. Where can you learn more? Go to https://www.ClearCycle.net/patientEd Enter V843 in the search box to learn more about Low Sodium Diet (2,000 Milligram): Care Instructions. Current as of: February 09, 2021 Content Version: 13.3 Profind. Care instructions adapted under license by your healthcare professional. If you have questions about a medical condition or this instruction, always ask your healthcare professional. Profind disclaims any warranty or liability for your [...] and heart disease. Follow-up care is a oewns part of your treatment and safety. Be [...] Where can you learn more? Go to https://www.healthAirpowered.net/patientEd Enter V137 in the search box to learn more about Heart-Healthy Diet: Care Instructions. Current as of: February 09, 2021 Content Version: 13.3 Profind. Care instructions adapted under license by your healthcare professional. If you have questions about a medical condition or this instruction, always ask your healthcare professional. Profind disclaims any warranty or liability for your [...] Where can you learn more? Go to https://www.ClearCycle.net/patientEd Enter F350 in the search box to learn more about Learning About Restricting Fluids When You Have Heart Failure. Current as of: June 13, 2021 Content Version: 13.3 Profind. Care instructions adapted under license by your healthcare professional. If you have questions about a medical condition or this instruction, always ask your healthcare professional. Profind disclaims any warranty or liability for your [...] get rid of extra fluid. Angiotensin-converting enzyme (BRIANDA) inhibitors help blood flow. They relax the blood vessels and lower your blood pressure. The heart can then pump more blood through your body without working harder. Angiotensin II receptor blockers (ARBs) work like BRIANDA inhibitors. Some people use them instead. Angiotensin receptor neprilysin inhibitor (ARNI) medicine works like ARBs and BRIANDA inhibitors. Some people take an ARNI medicine [...] your medicine, ask your doctor or pharmacist. BRIANDA inhibitors Before you start to take an BRIANDA inhibitor, talk to your doctor. Tell him [...] salt substitute, or lithium. You take an BRIANDA inhibitor or an ARB. You have kidney [...] a diuretic or other medicines. This includes prfj-xtf-zerqxid medicines. Side effects include: Nausea or vomiting. Confusion, changes in vision, a racing or slowed heartbeat, or dizziness. Call your doctor right away if you have any of these side effects. Where can you learn more? Go to https://www.ClearCycle.net/patientEd Enter F132 in the search box to learn more about Medicines for Heart Failure: Care Instructions. Current as of: June 13, 2021 Content Version: 13.3 Profind. Care instructions adapted under license by your healthcare professional. If you have questions about a medical condition or this instruction, always ask your healthcare professional. Profind disclaims any warranty or liability for your [...] your doctor before you take any vitamins, hzyk-iye-dpwtsfw drugs, or herbal products. Do not take [...] irregular heartbeat. After you call 911, the cone machine operator may tell you to chew [...] Where can you learn more? Go to https://www.ClearCycle.net/patientEd Enter P052 in the search box to learn more about Managing Other Conditions When You Have Heart Failure: Care Instructions. Current as of: June 13, 2021 Content Version: 13.3 Profind. Care instructions adapted under license by your healthcare professional. If you have questions about a medical condition or this instruction, always ask your healthcare professional. Profind disclaims any warranty or liability for your use of this information. Follow Up Care 02/18/2025 22:01:34 With:DANI ROPER, Urology Address: [address] [place] [address]- Business (1) When: Unknown Comments:The office will call you 02/23/2025 in the morning to schedule ESWL for Sunday or Sunday [facility]. Starting 02-23-2025 at MIDNIGHT nothing to eat or drink except medications. Do not take Aspirin or Eliquis until directed by Urology. With:LIMA COLE Address: [address] [facility] [place] [address]- Business (1) When:02/27/2025 15:30:00 With:Heart Failure Education ([facility]) Address: [address] [place] [address]- Business (1) When:02/24/2025 13:00:00 Comments:Please CALL [phone] if unable to attend. IF PATIENT IS DISCHARGE TO A NURSING FACILITY OR [facility]PC CARE PLEASE DO NOT ATTEND. [facility] 09-20-2025 NoteEducation Pharmacy - Anticoagulation Entered On: 02/20/2025 16:22 EDT Performed On: 02/20/2025 16:21 EDT by Vanessa Ybarra Nelly Education Pharmacy Anticoagulation Barriers to Learning : Other: d/c'ed TeachBack Methodology : Other: d/c'ed Ravinder YbarraCarmen - 02/21/2025 10:55 EDT Teach Back Notes : 02/20 irs: one time dose of eliquis given for new onset afib, follow up tomorrow to see if it should be continued Nelly Mendez RPh - 02/20/2025 16:21 EDT Education Pharmacy - Anticoagulation Other : Verbalizes understanding Nelly Mendez RPh - 02/20/2025 16:21 [facility] Comment on above:Order Comment: Request for pharmacy education by discern rule for patient ordered [id number] Note Education completed with the patient and the patient's ; the heart failure book and self care sheet given and reviewed. The patient stated that the heart failure diagnosis is new. The patient stated that he has a kidney stone that needs to be removed once the heart failure is treated. He plans to continue with [facility] for follow up and is aware [...] after voiding an to report to his behavior management specialist a weight gain of 2 or more pounds overnight or 5 or more pounds in one week. The patient stated that he has a scale and is agreeable to doing daily weights. Verbalized understanding of all education. [facility]09-18-2025 History and physical note CROWTHERS, JAME :1965 [facility]:[id number] Registration Date:02/19/2025 Chief Complaint Shortness of breath and volume overload History of Present Illness This is a 59-year-old with a history of congestive heart failure he has a right ureteral stone and he has a scheduled removal of it cystoscopy on Sunday however he showed up at the freestanding ER in [place] for due to volume overload shortness of [...] Orders: acetaminophen, 650 mg= 2 tabs, ORAL, V1TNNVI, PRN acetaminophen, 650 mg= 2 tabs, ORAL, J7ZLWLZ, PRN acetaminophen, 650 mg= 2 tabs, ORAL, S5OQDBM, PRN acetaminophen-oxycodone(acetaminophen-oxycodone 325 mg-5 mg oral tablet = Percocet), 1 tabs, ORAL, U6DGQNZ, PRN aspirin(Aspirin Low Dose), 81 mg= 1 tabs, ORAL, DAILY WITH BREAKFAST atorvastatin(Lipitor), 40 mg= 1 tabs, ORAL, DAILY buPROPion(Wellbutrin SR, Zyban (buPROPion SR)), 100 mg= 1 tabs, ORAL, BID celecoxib(CeleBREX), 200 mg= 1 caps, ORAL, BID ciprofloxacin = Cipro, 500 mg= 1 tabs, ORAL, [id number] DULoxetine(Cymbalta), 60 mg= 1 caps, ORAL, DAILY [...] BREAKFAST melatonin, 5 mg= 1 tabs, ORAL, QHS/[id number], PRN metFORMIN = Glucophage, 850 mg= 1 tabs, ORAL, BIDWM metoprolol(Lopressor = Metoprolol Tartrate), 37.5 mg= 1.5 tabs, ORAL, BID mirtazapine(Remeron), 7.5 mg= 1 tabs, ORAL, QHS multivitamin, 1 tabs, ORAL, DAILY naloxone = Narcan, 0.4 mg= 1 mL, IV Push, PRN, PRN ondansetron(ondansetron 4 mg oral tablet, disintegrating = Zofran), 4 mg= 1 tabs, ORAL, [id number], PRN pioglitazone(Actos), 45 mg= 3 tabs, ORAL, [...] Constant Order, Current ACLS Provider may, Initiate [employer] Advanced Cardiac Life support Algorithm per patient code status COMPMETA(CMP), ROUTINE, 02/19/2025 02:33:00 EDT Consult Physician(Physician Consult), 02/19/2025 02:33:00 EDT, ZARIA SEAMAN, SARAH New CHF Consult Physician(Physician Consult), 02/19/2025 02:33:00 EDT, OLIVER SEAMAN, BONY, 8mm ureteral stone Diet Order, 02/19/2025 02:28:00 EDT, Low Sodium Heart Healthy Level of Care Order, 02/19/2025 01:55:00 EDT, Medical Outpatient with Observation Services, LULA JI [facility] Nursing ONE TIME Task(If pt has Saline [...] EDT Request for Armband, 02/19/2025 06:51:00 EDT, [id number], Unable to scan Request for Bed Placement, [...] with all VS Weight, 02/20/2025 04:00:00 EDT, [id number] Acute congestive heart failure I need to [...] Inpatient acetaminophen, 650 mg= 2 tabs, ORAL, G1ZOJST, PRN acetaminophen, 650 mg= 2 tabs, ORAL, S7UNSEG, PRN acetaminophen, 650 mg= 2 tabs, ORAL, B1PYBCV, PRN acetaminophen-oxycodone(acetaminophen-oxycodone 325 mg-5 mg oral tablet = Percocet), 1 tabs, ORAL, Q7LWVZZ, PRN aspirin(Aspirin Low Dose), 81 mg= 1 tabs, ORAL, DAILY WITH BREAKFAST atorvastatin(Lipitor), 40 mg= 1 tabs, ORAL, DAILY buPROPion(Wellbutrin SR, Zyban (buPROPion SR)), 100 mg= 1 tabs, ORAL, BID celecoxib(CeleBREX), 200 mg= 1 caps, ORAL, BID ciprofloxacin = Cipro, 500 mg= 1 tabs, ORAL, [id number] DULoxetine(Cymbalta), 60 mg= 1 caps, ORAL, DAILY [...] BREAKFAST melatonin, 5 mg= 1 tabs, ORAL, QHS/[id number], PRN metFORMIN = Glucophage, 850 mg= 1 tabs, ORAL, BIDWM metoprolol(Lopressor = Metoprolol Tartrate), 37.5 mg= 1.5 tabs, ORAL, BID mirtazapine(Remeron), 7.5 mg= 1 tabs, ORAL, QHS multivitamin, 1 tabs, ORAL, DAILY naloxone = Narcan, 0.4 mg= 1 mL, IV Push, PRN, PRN ondansetron(ondansetron 4 mg oral tablet, disintegrating = Zofran), 4 mg= 1 tabs, ORAL, A3XPFUS, PRN perflutren(Definity), 2 mL, IV Push, PRN, PRN pioglitazone(Actos), 45 mg= 3 tabs, ORAL, DAILY sodium chloride(Saline Flush), 8 mL, IV Push, PRN, PRN tamsulosin(Flomax), 0.4 mg= 1 caps, ORAL, DAILY traMADol(Ultram), 50 mg= 1 tabs, ORAL, TID Home acetaminophen-oxycodone(Percocet 5 mg-325 mg oral tablet), 1 tabs, ORAL, I3TOZCO, PRN atorvastatin(Lipitor 40 mg oral tablet), 40 mg= 1 tabs, ORAL, DAILY buPROPion(Wellbutrin SR 100 mg/12 hours oral tablet, extended release), 100 mg= 1 tabs, ORAL, BID celecoxib(CeleBREX 200 mg oral capsule), 200 mg= 1 caps, ORAL, BID ciprofloxacin = Cipro(ciprofloxacin 500 mg oral tablet), 500 mg= 1 tabs, ORAL, [id number] DULoxetine(Cymbalta 60 mg oral delayed release capsule), [...] = Zofran), 4 mg= 1 tabs, ORAL, P6WHXOY, PRN pioglitazone(Actos 45 mg oral tablet), 45 mg= 1 tabs, ORAL, DAILY tamsulosin(Flomax 0.4 mg oral capsule), 0.4 mg= 1 caps, ORAL, DAILY traMADol(Ultram 50 mg oral tablet), 50 mg= 1 tabs, ORAL, TID vitamin A, 2400 mcg, ORAL, DAILY Allergies No Known Allergies Social History Alcohol - Denies Alcohol Use 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 Exercise - Does not [...] 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 Calcium 9.2 mg/dL 02/19/2025 06:15 EDT Bilirubin, [...] Lymph % 20.2 % 02/19/2025 06:15 EDT Webb % 11.9 % 02/19/2025 06:15 EDT Neutrophil % 64.6 % 02/19/2025 06:15 EDT Eosin % 2.6 % 02/19/2025 06:15 EDT Basos % 0.7 % 02/19/2025 06:15 EDT Lymph Count 1.57 x1000 02/19/2025 06:15 EDT Webb Count 0.92 x1000 02/19/2025 06:15 EDT Neutrophil Count (ANC) 5.01 x1000 02/19/2025 06:15 EDT Eos Count 0.20 x1000 02/19/2025 06:15 EDT Baso Count 0.05 x1000 02/19/2025 06:15 EDT [facility]09-18-2025 JAME Obando :1965 Registration Date:02/19/2025 Chief Complaint Shortness of breath and volume overload History of Present Illness This is a 59-year-old with a history of congestive heart failure he has a right ureteral stone and he has a scheduled removal of it cystoscopy on Sunday however he showed up at the freestanding ER in [place] for due to volume overload shortness of [...] Orders: acetaminophen, 650 mg= 2 tabs, ORAL, [id number], PRN acetaminophen, 650 mg= 2 tabs, ORAL, [id number], PRN acetaminophen, 650 mg= 2 tabs, ORAL, [id number], PRN acetaminophen-oxycodone(acetaminophen-oxycodone 325 mg-5 mg oral tablet = Percocet), 1 tabs, ORAL, [id number], PRN aspirin(Aspirin Low Dose), 81 mg= 1 tabs, ORAL, DAILY WITH BREAKFAST atorvastatin(Lipitor), 40 mg= 1 tabs, ORAL, DAILY buPROPion(Wellbutrin SR, Zyban (buPROPion SR)), 100 mg= 1 tabs, ORAL, BID celecoxib(CeleBREX), 200 mg= 1 caps, ORAL, BID ciprofloxacin = Cipro, 500 mg= 1 tabs, ORAL, [id number] DULoxetine(Cymbalta), 60 mg= 1 caps, ORAL, DAILY [...] BREAKFAST melatonin, 5 mg= 1 tabs, ORAL, [id number], PRN metFORMIN = Glucophage, 850 mg= 1 tabs, ORAL, BIDWM metoprolol(Lopressor = Metoprolol Tartrate), 37.5 mg= 1.5 tabs, ORAL, BID mirtazapine(Remeron), 7.5 mg= 1 tabs, ORAL, QHS multivitamin, 1 tabs, ORAL, DAILY naloxone = Narcan, 0.4 mg= 1 mL, IV Push, PRN, PRN ondansetron(ondansetron 4 mg oral tablet, disintegrating = Zofran), 4 mg= 1 tabs, ORAL, C1OMHZZ, PRN pioglitazone(Actos), 45 mg= 3 tabs, ORAL, [...] for Acute Respiratory (more content not included)... [facility]09-18-2025 Nurse Admission evaluation note 0866 - Report received from ED RN at [facility]. 0140 - Patient arrived to floor via transport, oriented to room, established on telemetry, ED registration called to pull patient into system. 0205 - Call to Dr. Montoya for admission orders, connected to physician, orders received and placedvia telephone with read back. 0230 - Patient updated on diet and plan of care, no additional needs voiced. [facility]09-18-2025 Nurse Admission evaluation note VRN Admission Note: [...] visit. This visit was conducted via live, [id number]-wi-vgqa, video teleconferencing. This RN was in a remote location and the patient was on-site at the time of call. [facility]09-17-2025 ShpmEKRG-UJO-6 (AGENT OF COVID-19) RNA: Not detected INFLUENZA A RNA: Not detected INFLUENZA B RNA: Not detected RESPIRATORY SYNCYTIAL VIRUS (RSV) RNA: Not detectedLincolnhealthComment on above:Performed By: #### [id number] ####[facility] LABCLIA [id number] [place] [address] [facility]09-15-2025 Hospital Discharge instructions Patient Education 02/16/2025 16:04:28 [...] your doctor if you can take an mcbp-yns-zsrzhbs medicine. Read and follow all instructions on [...] Where can you learn more? Go to https://[email or web address].net/patientEd Enter X633 in the search box to learn more about Kidney Stone: Care Instructions. Current as of: February 09, 2021 Content Version: 13.3 [employer] (Former[employer]. Care instructions adapted under license by your healthcare professional. If you have questions about a medical condition or this instruction, always ask your healthcare professional. [employer] disclaims any warranty or liability for your use of this information. Follow Up Care 02/16/2025 11:40:53 With:DANI [facility] Address: [address] [place] [phone]- Business (1) When:3 to 5 days Comments:Please follow-up with [facility] urology and keep your appt next week [facility] 09-15-2025 Note* Exam Date Time Procedure Performing [...] ENID OG MD Signed Out: 02/16/25 14:21:41 [facility]09-15-2025 Evaluation + Plan noteExtracted from: Title:ED Physician Note - CALLIE Author:JANETTE COLLINS DO Date:02/16/25 Kidney stone N20.0 Orders: acetaminophen-oxycodone(Percocet 5 mg-325 mg oral tablet), 1 tabs, ORAL, [id number], PRN ciprofloxacin = Cipro(ciprofloxacin 500 mg oral tablet), 500 mg= 1 tabs, ORAL, [id number] ketorolac = Toradol(ketorolac 10 mg oral tablet), 10 mg= 1 tabs, ORAL, QID, PRN ondansetron(ondansetron 4 mg oral tablet, disintegrating = Zofran), 4 mg= 1 tabs, ORAL, [id number], PRN tamsulosin(Flomax 0.4 mg oral capsule), 0.4 mg= 1 caps, ORAL, DAILY CBCWD, STAT, 02/16/2025 11:41:00 EDT COMPMETA, STAT, 02/16/2025 11:41:00 EDT ED Discharge to Home, 02/16/2025 15:50:00 EDT, Constant Order LIP(LIPASE), STAT, 02/16/2025 11:41:00 [facility]T [facility], 02/16/2025 11:41:00 EDT, [...] known 8mm right sided kidney stone, Cart [facility] 06-26-2025 Evaluation note* Diagnosis Onset Date Resolution Status Admit Date Diabetes type 2, uncontrolled acute November 27, 2024 3:58pm Migraine NEC/intractable acute November 27, 2024 3:58pm [facility] Work Phone: [phone]) 834-921203-21-2025 Evaluation note* Diagnosis Onset Date Resolution Status Admit Date Depression acute August 22 5:48pm Hyperglycemia due to type 2 diabetes mellitus acute August 22 5:48pm Migraine acute August 22 5:48pm Hypertension chronic August 22, 2024 5:48pm [facility] Work Phone: 1(916) 959-315003-21-2025 Evaluation note* Diagnosis Onset Date Resolution Status Admit Date Depression acute August 22 5:48pm Hyperglycemia due to type 2 diabetes mellitus acute August 22 5:48pm Migraine acute August 22 5:48pm Hypertension chronic August 22, 2024 5:48pm Hypothyroidism acute October 23, 2024 5:39pm Leukocytosis acute October 23 5:39pm Maxillary sinusitis, acute acute October 23, 2024 5:39pm Right otitis media acute October 232024 5:39pm [facility] Work Phone: 1(695) 557-530202-14-2024 Telephone encounter Note* Telephone Encounter - Britta Zavala RN - 07/18/2023 1:08 PM EST S: Patient spoke with [facility] nurse regarding dizziness. B: Onset of symptoms for 1 week. A: Seen in and continues to have dizziness, moves out to fast, fell yesterday in the bathroom noinjuries, no nausea, feels weird, the room spins, headache that won't go away. PMD is out of town until next week. R: Patient referred to ER or for eval. Declines new patient appointment. Patient understands care advice. No further needs at this time. Patient instructed to call back with new or worsening symptoms. Reason for Disposition Lightheadedness (dizziness) present now, after 2 hours of rest and fluids Protocols used: [id number] [facility] [id number] Miscellaneous Notes* Telephone Encounter - Britta Zavala RN - 07/18/2023 1:08 PM EST S: Patient spoke with [facility] nurse regarding dizziness. B: Onset of symptoms for 1 week. A: Seen in and continues to have dizziness, moves out to fast, fell yesterday in the bathroom noinjuries, no nausea, feels weird, the room spins, headache that won't go away. PMD is out of town until next week. R: Patient referred to ER or for eval. Declines new patient appointment. Patient understands care advice. No further needs at this time. Patient instructed to call back with new or worsening symptoms. Reason for Disposition Lightheadedness (dizziness) present now, after 2 hours of rest and fluids Protocols used: Kenkzitcz-[id number]-EP documented in this [facility]09-07-2022 NotePatient Outreach (NETNAV) JAME WALLACE ([id number]) 1965 M Date Time Provider Department 02/08/22 JAYMIE LEIGH During your visit today, we recorded the following information about you: Jaymie Leigh MA 02/08/2022 11:31 AM Signed POPULATION [...] me back directly to schedule. Also sent Moped message. Pt identified by name and : NO Outreach Outcome/Action Unable to reach patient: Left message Ecosiahart message sent Did you use a PCP [...] Message Sent to Practice: No Navigation Signature: Jaymie Leigh MA February 08, 2022 11:29 AM Allergies As of Date: 02/08/2022 Noted Allergy Reaction PREGABALIN 03/06/2021 16 - Unknown Date Reviewed: 10/03/2021 Reviewed by: Zakiya Walters RN - Fully Assessed Reason for Visit: Population Health Navigation Outreach [3910] Cmt: hcc Prescriptions as of 02/08/2022 - celecoxib (CELEBREX) [...] J12.82] 08/09/2020 Obesity, Class (more content not included)...[facility] 02-08-2022 NoteHNO ID: [id number] Author: Jaymie Leigh MA Service: ? Author Type: Commercial Loan Assistant Type: Progress Notes Filed: 02/08/2022 11:31 AM [...] me back directly to schedule. Also sent mychart message. Pt identified by name and : [...] Message Sent to Practice: No Navigation Signature: Jaymie Leigh MA February 08, 2022 11:29 [facility]09-07-2022 History of Present illness Narrative* Jaymie Leigh MA - 02/08/2022 11:28 AM EDT [...] me back directly to schedule. Also sent mychart message. Pt identified by name and : [...] Message Sent to Practice: No Navigation Signature: Jaymie Leigh MA February 08, 2022 11:29 AM documented in this [facility]Prom[facility] NoteHNO ID: [id number] Author: RT Tanisha(R) Service: ? Author Type: [...] PERIPHERAL IV DATA: Not applicable SIGNED BY: DON Garay) October 03, 2021 7:35 [facility]05-02-2022 NoteHNO ID: [id number] Author: RT Gabrielle(R) Service: ? Author Type: Technologist Type: Progress [...] BY: RT Antonella(R) October 03, 2021 5:49 [facility] History of Present illness Narrative* ALYSIA GarayR) - 10/03/2021 7:35 PM EDT Radiology Service [...] 03, 2021 7:35 PM documented in this encounterPromedica [facility]05-02-2022 NoteHNO ID: [id number] Author: Scott Rodriguez APRN.COSTUME SHOP COORDINATOR Service: ? Author Type: Nurse Practitioner Type: [...] not helped. 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 Patient also [...] with this plan. Report was called to [facility] emergency room patient was transported out of the office today to the emergency room in stable condition in no distress. Scott Rodriguez APRN.COSTUME SHOP COORDINATOR This note was partially generated using Yopima voice recognition system. [facility]05-02-2022 History of Present illness Narrative* RT Gabrielle(R) [...] 03, 2021 5:49 PM documented in this encounterPromedica [facility]05-02-2022 History of Present illness Narrative* Scott Rodriguez APRN.CNP - 10/03/2021 4:04 PM EDT [...] not helped. 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 Patient also [...] with this plan. Report was called to [facility] emergency room patient was transported out of the office today to the emergency room in stable co ndition in no distress. Scott Rodriguez APRN.SHIMA This note was partially generated using Yopima voice recognition system. documented in this encounterPromedica Bay Park Hospital04-14-2022 NoteHNO ID: [id number] Author: Ivone Banks PA-C Service: ? Author Type: Physician Zipper Trimmer Hand Type: Progress Notes Filed: 09/15/2021 2:24 PM [...] If virtual, please have images downloaded into Dial2Do prior to appointment. If face to face, please have patient bring disc of images to appointment. If the patient would like a sooner appointment, the patient can be placed on my schedule for initial evaluation. Ivone Banks PA-C September 15, 2021 2:24 [facility]04-14-2022 History of Present illness Narrative* Ivone [...] If virtual, please have images downloaded into Dial2Do prior to appointment. If face to face, please have patient bring disc of images to appointment. If the patientwould like a sooner appointment, the patient can be placed on my schedule for initial evaluation. Ivone Banks PA-C September 15, 2021 2:24 PM * Mavis Hoang - 09/15/2021 10:44 AM EDT Patient name: Jame Wallace Are you being referred by a [facility] Provider or Pain Management Provider at [facility]? No If answer is YES please schedule [...] the facility where the MRI/CT/myelogram was completed: @[facility] MRI/CT/myelogram viewable in Epic: Yes If not, please provide [phone] to fax in imaging reports for review. Also, please inform patient to hand carry imaging disc to appointment. XR (spine) within 12 months: Yes If YES, please ask for the name/address of the facility where the XR was completed: @[facility] Requested provider (First and Last name): Unknown [...] injections and/or physical therapy was completed Injections @[facility] - Jermaine Orta Have you tried any [...] the surgery was completed: N/A Additional Comments [phone] - documented in this encounterPromedica Bay Park Hospital04-14-2022 NoteHNO ID: [id number] Author: Mavis Hoang Service: ? Author Type: ? Type: Progress Notes Filed: 09/15/2021 2:24 PM Note Text: Patient name: Jame Wallace Are you being referred by a [facility] or Pain Management Provider at [facility]? No If answer is YES please schedule directly with surgeon, triage does not need to be completed. Is this a self-referral No If not, who is the Referring Provider Jermaine Orat Is this a 2nd opinion, have you been offered surgery by another surgeon? No MRI/CT/myelogram within 12 months? Yes If NO, please refer to medical spine or PCP to complete above imaging, triage does not need to be completed If YES,? please ask for the name/address of the facility where the MRI/CT/myelogram was completed: @[facility] MRI/CT/myelogram viewable in Epic: Yes If not, please provide [phone] to fax in imaging reports for review. Also, please inform patient to hand carry imaging disc to appointment. XR (spine) within 12 months: Yes If YES,? please ask for the name/address of the facility where the XR was completed: @[facility] Requested provider (First and Last name): Unknown [...] injections and/or physical therapy was completed Injections @[facility] - Jermaine Orta Have you tried any [...] the surgery was completed: N/A Additional Comments [phone] - [facility]11-04-2021 NoteHNO ID: [id number] Author: Veronique Vo MD Service: ? Author [...] for this visit on 04/07/21. Veronique Vo [facility]10-21-2021 NoteHNO ID: [id number] Author: Veronique Vo MD Service: ? Author [...] 03/24/21 - VITAMIN A ORAL Veronique Vo [facility]10-21-2021 NoteHNO ID: [id number] Author: Анна Lynne Service: ? Author Type: ? Type: Progress Notes Filed: 03/24/2021 11:27 AM Note Text: Pt states 4/10 on a pain scale. Pt c/o greenish/ white dischare. Shooting/ stabbing/ throbbing pain from sitting in car.[facility] 03-15-2021 NoteHNO ID: [id number] Author: Veronique Vo MD Service: ? Author [...] for this visit on 03/15/21. Veronique Vo, [facility]05-06-2016 History of Past illness Narrative* Problem Noted Date Resolved Date Chronic bilateral low back pain with right-sided sciatica 10/08/2015 09/05/2016 Post-operative state 05/15/2013 08/11/2019 Subcutaneous mass 04/23/2013 05/15/2013 Diverticulitis of colon (wit hout mention of hemorrhage)(562.11) 01/19/2011 documented as of this encounter (statuses as of 09/15/2021) [facility] History of Past illness Narrative* Problem Noted Date Resolved Date Chronic bilateral low back pain with right-sided sciatica 10/08/2015 09/05/2016 Post-operative state 05/15/2013 08/11/2019 Subcutaneous mass 04/23/2013 05/15/2013 Diverticulitis of colon (wit hout mention of hemorrhage)(562.11) 01/19/2011 documented as of this encounter (statuses as of 10/03/2021) [facility] History of Past illness Narrative* Problem Noted Date Resolved Date Chronic bilateral low back pain with right-sided sciatica 10/08/2015 09/05/2016 Post-operative state 05/15/2013 08/11/2019 Subcutaneous mass 04/23/2013 05/15/2013 Diverticulitis of colon (wit hout mention of hemorrhage)(562.11) 01/19/2011 documented as of this encounter (statuses as of 10/03/2021) [facility] History of Past illness Narrative* Problem Noted Date Resolved Date Chronic bilateral low back pain with right-sided sciatica 10/08/2015 09/05/2016 Post-operative state 05/15/2013 08/11/2019 Subcutaneous mass 04/23/2013 05/15/2013 Diverticulitis of colon (wit hout mention of hemorrhage)(562.11) 01/19/2011 documented as of this encounter (statuses as of 02/08/2022) [facility] History of Past illness Narrative* Problem Noted Date Diagnosed Date Resolved Date Chronic bilateral low back p ain with right-sided sciatica 10/08/2015 09/05/2016 Post-operative state 05/15/2013 020 Subcutaneous mass 04/23/2013 05/15/2013 Diverticulitis of colon (wit hout mention of hemorrhage)(562.11) 01/19/2011 documented as of this encounter (statuses as of 02/01/2023) [facility] HospitalDis[facility] summary Author Edmundo Wiggins [facility] Note Date/Time March 11, 2025 10 :37[facility] Medical Records Department [address] [place] [address] Instructions for Home/Discharge Instructions 03/11/25 1036 MR#: [id number] Acct: [id number] Name: JAME WALLACE A Rep #:[id number] 8 : 1965 59 From: Edmundo Wiggins MD PCP: DAVID Marina Status:REG SDC Discharge Instructions DC O2, CPAP, BIPAP needs Home O2 Discharge instructions: No Dressing / Incision Discharge Activity: Return to Normal Activity and May Not Drive (while taking narcotic pain medications.) Dressing / Incision Call your doctor if you observe: Fever of 101 or Higher Follow Up Care Please Follow Up With: Edmundo Wiggins MD When: Call [phone] for an appointment Test Results: Test results from this visit will be discussed in further detail at your follow- up appointment, if applicable. Discharge Plan Admission Primary Reason for Your Visit: right kidney stone Attending Provider: Edmundo Wiggins Primary Care Provider: Jenny Live NP Instructions Print Language: Kuwaiti Discharge Orders/Prescriptions Prescriptions: New cephalexin 500 mg [...] MD [Med Staff - Active Staff, Urology] Jenny Live NP, MANDO-C [Primary Care Provider, Family Practice] Disposition Disposition (needs filled in before D/C Order can be placed): Home, Self Care 03/11/25 1037<Electronically signed by Edmundo Wiggins MD>Edmundo Wiggins MD CC: BUSINESS SERVICES COORDINATOR-C Jenny Live ~ Signed [facility] Work Phone: Evaluation + Plan note Future Appointments Appointment Date:05/22/2025 03:30:00 PM Scheduled Provider:LIMA COLE CNP Location:[place] [address] Appointment Type:Established Patient Office [facility] Evaluation note* Diagnosis Dizziness- Primary Dizziness and giddiness Folliculitis Other specified disease of hair and hair follicles documented in this encounter [facility]* Diagnosis Onset Date Resolution Status Painful skin lesion acute Sebaceous cyst acute Diabetes type 2, uncontrolled acute Fatigue acute Low testosterone acute Recurrent knee pain acute [facility] Work Phone: Evaluation note* Diagnosis Onset Date Resolution Status Diabetes type 2, uncontrolled acute Fatigue acute Low testosterone acute Recurrent knee pain acute Depression acute Diabetes type 2, uncontrolled acute Hypertension chronic [facility] Work Phone: Evaluation note* Diagnosis Onset Date Resolution Status Diabetes type 2, uncontrolled acute Lumbar back pain with radicu lopathy affecting lower extremity acute Diabetes type 2, uncontrolled acute Lumbar back pain with radicu lopathy affecting lower extremity acute Neuropathy acute Acute dyspnea acute Fatigue acute Left otitis media acute Post-COVID syndrome acute [facility] Work Phone: Evaluation note* Diagnosis Pain- Primary Generalized pain documented in this encounter [facility]* Diagnosis Onset Date Resolution Status Depression acute Diabetes type 2, uncontrolled acute Hyperlipidemia LDL goal <130 acute Insomnia acute Migraine acute Hypertension [facility] Work Phone: History of Present illness [...] medication regimen. He denies medication side effects. -[facility] Work Phone: Hospital course Narrative No data available for this section [facility] Hospital Discharge instructions No data available for this section Office [facility] Progress note No data available for this section [facility] Reason for referral (narrative)* Diagnostic Procedure Only (Routine) - Authorized Specialty Diagnoses / Procedures Referred By Contac t Referred To Contact XR IMAGING Diagnoses Pain Procedures XR HAND GENERAL 3V PA/LAT/OBL LEFT RADEX HAND MINIMUM 3 VIEWS Madhuri Phillips PA-C [address] [place] [address] [place] [address] Referral ID Status Reason Start Date Expiration Date Visits Requested Visits Authorized [id number] Authorized Auto-Generat ed Referral 02/01/2023 03/02/2024 1 1 * Diagnostic Procedure Only (Routine) - Authorized Specialty Diagnoses / Procedures Referred By Contac t Referred To Contact XR IMAGING Diagnoses Pain Procedures XR HAND GENERAL 3V PA/LAT/OBL RIGHT RADEX HAND MINIMUM 3 VIEWS Madhuri Phillips PA-C [address] [place] [id number] [place] [address] Referral ID Status Reason Start Date Expiration Date Visits Requested Visits Authorized [id number] Authorized Auto-Generat ed Referral 02/01/2023 03/02/2024 1 1 [facility] for referral (narrative)No reason for referral information [facility]WEast [facility] Work Phone: Summary Purpose Family History [...] FoundDocuments on File Type Date Recorded Patient Chain Maker Expl anation Advance Directive(s) 08/11/2019 2:21 PM Latest Code Status on File Code Status Date Activated Date Inactivated Comments Full Code 03/03/2021 9:17 AM 03/06/2021 5:35 PM Full Code Order Discussed With: Patient Full Code 08/11/2020 12:29 PM 08/14/2020 1:40 AM Documents on File Type Date Recorded Patient Chain Maker Expl anation Advance Directives and Living Will Power of Metal [employer] Documents on File Type Date Recorded Patient Chain Maker Expl anation Advance Directive(s) 03/02/2021 5:26 PM Advance Directive(s) 02/11/2021 6:46 PM Advance Directive(s) 08/09/2020 3:09 AM Advance Directive(s) 10/22/2019 9:35 AM Advance Directive(s) 10/13/2019 4:48 PM Advance Directive(s) 08/11/2019 10:31 AM Advance Directive(s) 08/11/2019 2:21 PM Advance Directive(s) 03/20/2019 4:37 PM Advance Directive(s) 05/27/2018 9:34 PM Advance Directive(s) 08/07/2017 3:46 PM Documents on File Type Date Recorded Patient Chain Maker Expl anation Advance Directive(s) 10/03/2021 4:51 PM [...] Documents on File Type Date Recorded Patient Chain Maker Expl anation Advance Directive(s) 08/11/2019 2:21 PM [...] Do you have a Healthcare Power of [employer]? Yes March 06, 2025 2:04pm Chief Complaint [...] section and content) DATE CREATED AUTHOR 05/29/2018 [facility] DATE CREATED AUTHOR AUTHOR'S ORGANIZ ATION 02/11/2019 [facility] DATE CREATED AUTHOR AUTHOR'S ORGANIZ ATION 10/19/2019 [facility] DATE CREATED AUTHOR AUTHOR'S ORGANIZ ATION 12/25/2020 [facility] DATE CREATED AUTHOR AUTHOR'S ORGANIZ ATION 12/25/2020 [employer] DATE CREATED AUTHOR AUTHOR'S ORGANIZ ATION 02/09/2022 [facility] DATE CREATED AUTHOR AUTHOR'S ORGANIZ ATION 07/20/2023 [facility] DATE CREATED AUTHOR AUTHOR'S ORGANIZ ATION 02/25/2025 [facility] DATE CREATED AUTHOR AUTHOR'S ORGANIZ ATION 03/06/2025 [facility] DATE CREATED AUTHOR AUTHOR'S ORGANIZ ATION 03/07/[address] [facility] DATE CREATED AUTHOR AUTHOR'S ORGANIZ ATION 03/13/2025 [facility] DATE CREATED AUTHOR AUTHOR'S ORGANIZ ATION 03/16/2025 [facility] DATE CREATED AUTHOR AUTHOR'S ORGANIZ ATION 03/18/2025 [facility] Source Comments (unrecognize d section and content) In the event this informatio n is protected by the Federal Confidentiality of Alcohol and Drug Abuse Patient Records regulations: The Federal rules restrict any use of the information to criminally investigate or prosecute any alcohol or drug abuse patient.[facility] the event this information is protected by the Federal Confidentiality of Alcohol and Drug Abuse Patient Records regulations: The Federal rules restrict any use of the information to criminally investigate or prosecute any alcohol or drug abuse patient.[facility] the event this information is protected by the Federal Confidentiality of Alcohol and Drug Abuse Patient Records regulations: The Federal rules restrict any use of the information to criminally investigate or prosecute any alcohol or drug abuse patient.[facility] the event this information is protected by the Federal Confidentiality of Alcohol and Drug Abuse Patient Records regulations: The Federal rules restrict any use of the information to criminally investigate or prosecute any alcohol or drug abuse patient.[facility] the event this information is protected by the Federal Confidentiality of Alcohol and Drug Abuse Patient Records regulations: The Federal rules restrict any use of the information to criminally investigate or prosecute any alcohol or drug abuse patient.[facility] the event this information is protected by the Federal Confidentiality of Alcohol and Drug Abuse Patient Records regulations: The Federal rules restrict any use of the information to criminally investigate or prosecute any alcohol or drug abuse patient.[facility] Care Teams (unrecognized sec tion and content) Office Clin Asst Relationship Specialty Start Date End Date Jenny Live APRN.[employer]ME SHOP COORDINATOR [address] [place], [place] [id number] PCP - General Family Practice 07/23/15 Office Clin Asst Relationship Specialty Start Date End Date Jenny Live APRN.[employer]STU[employer] SHOP COORDINATOR [address] [place], [place] [phone] PCP - General Family Practice 07/23/15 Office Clin Asst Relationship Specialty Start Date End Date Jenny Live APRN.COSTUME SHOP COORDINATOR [address] [place], [place] [phone] PCP - General Family Practice 07/23/15 Office Clin Asst Relationship Specialty Start Date End Date Jenny Live, RAMPMAN.COSTUME SHOP COORDINATOR [address] [place] [address] PCP - General Family Practice 07/23/15 Team Status: Active Member Role Status Dates Jenny Live BUSINESS SERVICES COORDINATOR, BUSINESS SERVICES COORDINATOR-C Family Provider Active Jenny Live BUSINESS SERVICES COORDINATOR, BUSINESS SERVICES COORDINATOR-C Primary Care Provider Active Team Status: Inactive Member Role Status Dates Jenny Live BUSINESS SERVICES COORDINATOR, BUSINESS SERVICES COORDINATOR-C Primary Care Pr ovider, Attending Provider, Referring Provider Active Team Status: Inactive Member Role Status Dates Jenny Live BUSINESS SERVICES COORDINATOR, BUSINESS SERVICES COORDINATOR-C Primary Care Provider, Attend ing Provider Active Office Clin Asst Relationship Specialty Start Date End Date Jenny Live, RAMPMAN.COSTUME SHOP COORDINATOR [address] [place] [address] PCP - General Family Medicine 07/23/15 Office Clin Asst Relationship Specialty Start Date End Date Jenny Live [facility] [place] [address] PCP - General 05/20/18 Team Status: Inactive Member Role Status Dates Jenny Live BUSINESS SERVICES COORDINATOR, BUSINESS SERVICES COORDINATOR-C Primary Care Provider Active Start: August 22, 2024 End: August 22, 2024 Jenny Live BUSINESS SERVICES COORDINATOR, BUSINESS SERVICES COORDINATOR-C Attending Provider Active Start: August 22, 2024 End: August 22, 2024 Jenny Live BUSINESS SERVICES COORDINATOR, BUSINESS SERVICES COORDINATOR-C Referring Provider Active Start: August 22, 2024 End: August 22, 2024 Team Status: Inactive Member Role Status Dates Jenny Live BUSINESS SERVICES COORDINATOR, BUSINESS SERVICES COORDINATOR-C Primary Care Provider Active Start: October 23, 2024 End: October 23, 2024 Jenny Live BUSINESS SERVICES COORDINATOR, BUSINESS SERVICES COORDINATOR-C Attending Provider Active Start: October 23, 2024 End: October 23, 2024 Jenny Live BUSINESS SERVICES COORDINATOR, BUSINESS SERVICES COORDINATOR-C Referring Provider Active Start: October 23, 2024 End: October 23, 2024 Team Status: Inactive Member Role Status Dates Jenny Live BUSINESS SERVICES COORDINATOR, BUSINESS SERVICES COORDINATOR-C Primary Care Provider Active Start: October 24, 2024 End: October 24, 2024 Jenny Live BUSINESS SERVICES COORDINATOR, BUSINESS SERVICES COORDINATOR-C Attending Provider Active Start: October 24, 2024 End: October 24, 2024 Jenny Live NP BUSINESS SERVICES COORDINATOR-C Referring Provider Active Start: October 24, 2024 End: October 24, 2024 Team Status: Active Member Role/Relationship Status Dates Jenny Live NP BUSINESS SERVICES COORDINATOR-C Primary care physician Active Team Status: Inactive Member Role/Relationship Status Dates Jenny Live NP BUSINESS SERVICES COORDINATOR-C Primary care physician Active Start: November 27, 2024 End: November 27, 2024 Jenny Live NP BUSINESS SERVICES COORDINATOR-C Attending physician Active Start: November 27, 2024 End: November 27, 2024 Jenny Live NP BUSINESS SERVICES COORDINATOR-C Referring Provider Active Start: November 27, 2024 End: November 27, 2024 Team Status: Inactive Member Role/Relationship Status Dates Jenny Live NP BUSINESS SERVICES COORDINATOR-C Primary care physician Active Start: March 11, [...] BE BASED ON THE PRIMARY CLINICAL RECORDS. [facility]. provides no warranty or guarantee of the accuracy or completeness of information in this document.
[2025-03-19] VITALS (12 sets, daily range): BP systolic 100–122; BP diastolic 50–66; PULSE 74–88; RESP 16–18; TEMP 36.4–36.9; O2SAT 92–97; BMI 46.6
[2025-03-19] MEDS: 0.9% Normal Saline (1000mL) 1,000 ML 100 ML IV (00:09)
[2025-03-19] MEDS: 0.9% Normal Saline (250mL Bag) 250 ML 15 ML IV (02:21)
[2025-03-19] MEDS: 0.9% Saline Lock 10 ML Syringe IV ×2 (02:21→05:36)
[2025-03-19 05:50] LABS: Hematocrit 28.7 % (40-54); Hemoglobin 9.3 g/dL (13.0-16.5); Immature Granulocytes Count 0.030 X10^3/uL (0.0-0.0); Mean Corp Hgb Conc 32.4 g/dL (32-36); Mean Corpuscular Volume 94.7 fL (80-94); Mean Platelet Vol. 12.6 fl (6.2-12.0); NRBC Flagged by Analyzer 0 % (0-5); Platelet Count 189 K/mm3 (150-450); RBC Distribution Width CV 13.3 % (11.6-14.6); RBC Distribution Width SD 46.0 fl (35.1-43.9); Red Blood Count 3.03 M/mm3 (4.6-6.2); White Blood Count 8.0 K/mm3 (4.4-11.0)
--- NOTE | 2025-03-19 05:55 | EKG12_ITS ---
Test Reason : PRE-OP Blood Pressure : */* mmHG Vent. Rate : 80 BPM Atrial Rate : 80 BPM P-R Int : 140 ms QRS Dur : 134 ms QT Int : 414 ms P-R-T Axes : 60 -6 11 degrees QTcB Int : 477 ms Normal sinus rhythm Right bundle branch block Abnormal ECG When compared with ECG of 16-Mar-2025 07:01, No significant change was found Confirmed by JEAN-PIERRE SEAMAN, CATRINA ([id number]), newspaper editor managing CAIN GHOTRA ([id number]) on 03/19/2025 10:08:55 AM Referred By: WILLIE Confirmed By: CATRINA MOREJON MD
[2025-03-19 06:05] LABS: Prothrombin Time (Protime)PT. 14.3 SECONDS (11.7-14.9)
[2025-03-19 06:06] LABS: Partial Thromboplast Time 28.6 Seconds (24.1-36.2)
[2025-03-19 06:48] LABS: Anion Gap 8 (5-15); BUN 62 mg/dL (4-19); BUN/Creat Ratio 41.3 RATIO (10-20); Calcium,Total 8.8 mg/dL (7.6-11.0); Carbon Dioxide 27.5 mmol/L (21.0-32.0); Chloride 106 mmol/L (98-108); Estimated Creatinine Clearance 87.50 ml/min (50-250); Glucose 151 mg/dL (70-99); Potassium 4.8 mmol/L (3.3-5.1)
[2025-03-19 08:00] LABS: AST(SGOT) 15 U/L (<=37); Alanine Aminotransfer ALT/SGPT 10 U/L (<=46); Albumin, Serum 3.2 g/dL (3.5-5.0); Alkaline Phosphatase 66 U/L (40-129); Bilirubin, Direct 0.12 mg/dL (0.00-0.30); Globulin 2.3 g/dL (2.2-4.2)
[2025-03-19] MEDS: Pantoprazole Sodium 80 MG in 0.9% Normal Saline (100mL Bag) 80 ML 10 MG CONT INF ×2 (08:17→18:02)
--- NOTE | 2025-03-19 15:17 | PCM.PRE.AN2 ---
ASA Classification* ASA Classification ASA Classification: 3 and E Assessment & Plan Anesthesia* Anesthesia Assessment Anesthesia Assessment: Discussed sedation and/or anesthesia options, risks, benefits, and alternatives with patient/parents/legal guardian/POA. Questions invited. The patient/parents/legal guardian/POA seems to understand and agrees to proceed with anesthesia plan. Reviewed the physical assessment, medical history, allergy history and patient home medications list prior to surgery/procedure/anesthetic and documented any changes. Performed airway and anesthesia risk assessments. Anesthesia Type Anesthesia Type: MAC History Source History Obtained from:: Patient and Chart Anesthesia Focused Assessment* Temperature: 97.7 F Pulse Rate: 80 Blood Pressure: 106/66 Respiratory Rate: 16 Pulse Ox: 95 Oxygen Delivery Method: Room Air Airway Assessment Mouth opens: >3 cm Mallampati Score: II Teeth Condition: Caps/Crowns and Missing Neck Range of motion (ROM): Limited ROM Labs Anesthesia Preop lab: CBC WBC, (4.4-11.0) 8.0 K/mm3 Today, 04:36 RBC, (4.6-6.2) 3.03 M/mm3 L Today, 04:36 Hgb, (13.0-16.5) 9.3 g/dL L Today, 04:36 Hct, (40-54) 28.7 % L Today, 04:36 Plt Count, (150-450) 189 K/mm3 Today, 04:36 CHEMISTRY Potassium, (3.3-5.1) 4.8 mmol/L Today, 04:36 Sodium, (133-145) 141 mmol/L Today, 04:36 Magnesium, (1.5-2.2) 1.7 mg/dL 03/16/25, 05:57 Phosphorus, (2.7-4.5) 5.3 mg/dL H 03/16/25, 05:57 BUN, (4-19) 62 mg/dL H Today, 04:36 Creatinine, (0.70-1.20) 1.50 mg/dL H Today, 04:36 Glucose, (70-99) 151 mg/dL H Today, 04:36 POC Glucose, (74-106) 155 mg/dL H Today, 11:40 TSH, (0.300-4.200) 1.490 uIU/mL 10/13/25, 05:57 COAG PT, (11.7-14.9) 14.3 SECONDS Today, 04:36 INR 0.8 10/04/20, 21:08 Pre-Assessment Diagnosis/Proposed Procedure Planned Operative Procedure(s): EGD and colonoscopy Anesthesia History 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 When Was Last Pacemaker Check QUESTION #4 FULL TEXT: You/Your Family Experience fever (hyperthermia) with Anesthesia Last Oral Intake Last Oral intake: Last Oral Intake NPO since 00:01 03/19/25 14:52 Meds taken in AM with sips of Yes 03/19/25 14:52 water? Meds patient instructed to gabapentin, tramadol 03/19/25 14:52 take am of surgery PONV PONV - commissioned fire officer: PONV - commissioned fire officer Female HX of Motion Sickness HX of N/V After Surgery Non-Smoker Duration of Surgery greater than 60 minutes Number of Risk Factors PONV Score Height & Weight Height & Weight: Anesthesia: Height & Weight Height 6 ft 2 in 03/19/25 14:52 Weight: 164.8 kg 03/19/25 14:52 Body Mass Index (BMI) 46.6 03/19/25 14:52 Respiratory Assessment Respiratory Assessment - commissioned fire officer: Respiratory Tract Infection Hx - commissioned fire officer Hx Respiratory Tract Infection No 03/06/25 14:04 STOP Sleep Apnea STOP Sleep Apnea - commissioned fire officer: STOP Sleep Apnea - commissioned fire officer Hx Hypertension No 03/19/25 11:16 Hx Sleep Apnea No 03/18/25 23:22 CPAP No 03/11/25 10:35 BIPAP No 03/06/25 14:04 Do you snore loudly (louder Yes 03/18/25 23:22 than talking or can be heard Do you often feel tired/ No 03/18/25 23:22 fatigued/ sleepy during daytime? Has anyone observed you stop Yes 03/18/25 23:22 breathing during sleep? STOP Results Positive 03/18/25 23:22 QUESTION #5 FULL TEXT : Do you snore loudly (louder than talking or can be heard through closed doors)? Tobacco Use History Tobacco Use History - commissioned fire officer: Tobacco Use History - commissioned fire officer Tobacco Use Smoking Status Never smoker 03/18/25 23:22 Hx Tobacco Use No 03/18/25 23:22 Years Smoking Packs Smoked per Day Smoking Cessation Date was within the last 15 years Hx Smoking Cessation Date Hx Smoking Cessation Counseling Hematologic Medial History Hematologic Hx - commissioned fire officer: Hematologic Medical Hx - health worker Hx of Blood Transfusion No 03/18/25 23:22 Hx of Transfusion in last 3 No 03/18/25 23:22 Months Date of Last Transfusion (if within last 3 months) Ever experience any problems No 03/18/25 23:22 with transfusion(s)? Specify any problems Hx of Preganancy in last 3 N/A 03/18/25 23:22 Months Nurse Filling Out Transfusion AREAD 03/18/25 23:22 & Questions: Date: 03/18/25 03/18/25 23:22 Time: 23:44 03/18/25 23:22 Patient unable to answer at this time (ie. confused, unrespo /Reproduction History /Reproductive History - commissioned fire officer: /Reproductive Hx- commissioned fire officer Hx Now Gestational Age (in weeks): EDC: Hx Hx Para Hx Section SAB Active Medications Active Medications: Current Medications Generic Name Dose Route Start Last Admin Trade Name Freq PRN Reason Stop Dose Admin Acetaminophen 650 mg 03/18/25 23:21 Acetaminophen 325 Mg Tablet PO Q6H PRN PRN Pain 1-10 Or Fever >100.7 Atorvastatin Calcium 40 mg 03/19/25 22:00 Atorvastatin Calcium 40 Mg Tablet PO QHS AKHIL Bupropion HCl 100 mg 03/19/25 10:00 03/19/25 14:38 Bupropion (Sr) 100 Mg Tablet.Sa PO Not Given BID AKHIL Duloxetine HCl 60 mg 03/19/25 22:00 Duloxetine Hcl 60 Mg Capsule PO QHS AKHIL Furosemide 40 mg 03/19/25 10:00 03/19/25 14:37 Furosemide 40 Mg Tablet PO Not Given DAILY AKHIL Protocol Gabapentin 400 mg 03/19/25 06:00 03/19/25 14:21 Gabapentin 400 Mg Capsule PO 400 mg TID AKHIL Administration Glucagon 1 mg 03/19/25 00:32 Glucagon 1 Mg/Ml Syringe IM X1 PRN Hypoglycemia Protocol Pantoprazole Sodium 80 mg/ 100 mls @ 10 mls/hr 03/18/25 21:30 03/19/25 08:17 Sodium Chloride CONT INF 10 mls/hr Q10H AKHIL Administration Sodium Chloride 500 mls @ 15 mls/hr 03/18/25 23:22 IV PRN PRN Blood Transfusion Sodium Chloride 250 mls @ 15 mls/hr 03/18/25 23:22 03/19/25 02:37 IV 0 mls/hr .[id number] PRN Infusion Saline Flush Sodium Chloride 250 mls @ 15 mls/hr 03/18/25 23:22 IV .[id number] PRN Additional IVPB Infusion Dextrose 250 mls @ 0 mls/hr 03/19/25 00:32 Dextrose 10%-Water IV .Q0M PRN HYPOGLYCEMIA Protocol As Directed Ceftriaxone Sodium 1 gm in 50 mls @ 100 mls/hr 03/19/25 01:10 03/19/25 04:07 Rocephin IV Infused QHS AKHIL Infusion Insulin Human Lispro 0 unit 03/19/25 06:00 03/19/25 11:54 Insulin Lispro 100 Unit/Ml Insuln.Pen SC Not Given Q6 [facility] Protocol Lactic Acid 1 applic 03/19/25 01:00 Ammonium Lactate 225 Gm Bottle TOPICAL DAILY PRN PRN CRACKED HANDS Levothyroxine Sodium 75 mcg 03/19/25 06:00 03/19/25 06:06 Levothyroxine 75 Mcg Tablet PO 75 mcg DAILY@0600 AKHIL Administration Magnesium Chloride 64 mg 03/19/25 10:00 03/19/25 10:02 Magnesium Chloride 64 Mg Delay Rel.Tablet PO Not Given DAILY AKHIL Metoprolol Tartrate 37.5 mg 03/19/25 10:00 03/19/25 14:37 Metoprolol Tartrate 25 Mg Tablet PO Not Given BID AKHIL Mirtazapine 7.5 mg 03/18/25 23:21 03/19/25 00:21 Mirtazapine 15 Mg Tablet PO 7.5 mg QHS PRN PRN Administration SLEEP Multivitamins 1 tablet 03/19/25 08:00 03/19/25 07:47 Multivitamins,The[facility] Nitroglycerin 0.4 mg 03/18/25 23:21 Nitroglycerin (Inpatient Use) 0.4 Mg Tab.Subl SL Q5M PRN CARDIAC/CHEST PAIN Ondansetron HCl 4 mg 03/18/25 23:21 Ondansetron 4 Mg/2 Ml Vial IV Q8H PRN PRN NAUSEA/VOMITING Oxycodone HCl 5 mg 03/18/25 23:21 03/19/25 11:45 Oxycodone 5 Mg Tablet PO 5 mg Q6H PRN PRN Administration Pain Score 4-10 Sodium Chloride 10 - 40 ml 03/18/25 23:22 03/19/25 05:36 0.9% Saline Lock 10 Ml Syringe IV 40 ml UD PRN Administration SALINE FLUSH Spironolactone 25 mg 03/19/25 10:00 03/19/25 14:37 Spironolactone 25 Mg Tablet PO Not Given DAILY [facility] Protocol Tamsulosin HCl 0.4 mg 03/19/25 10:00 03/19/25 10:01 Tamsulosin Hcl 0.4 Mg Capsule PO Not Given DAILY [facility] Tramadol HCl 50 mg 03/19/25 06:00 03/19/25 14:21 Tramadol 50 Mg Tablet PO 50 mg TID [facility] Administration Triamcinolone Acetonide 1 applic 03/19/25 00:58 Triamcinolone Acetonide 0.1% Cream 15 Gm TOPICAL BID PRN PRN allergic reaction [facility] Medical History CHF exacerbation ADDY (obstructive sleep apnea) Chronic anticoagulation Atrial fibrillation Morbid obesity with BMI of 45.0-49.9, adult Respiratory insufficiency Hypertension Diabetes Chronic pain Kidney stones Atrial fibrillation Congestive heart failure (CHF) Wears glasses Vertigo History of MRSA infection Cancer Neuropathy Rheumatoid arthritis Arthritis High cholesterol Excessive bleeding Dietary restriction History of diverticulitis Sleep apnea Non-smoker History of echocardiogram History of stress test Hypertension Cardiology follow-up encounter History of atrial fibrillation History of CHF (congestive heart failure) Hypothyroidism Depression Diaphragm dysfunction Dupuytren's fibromatosis Basal cell carcinoma (BCC) in situ of skin Insomnia Bursitis of right shoulder Pneumonia Diverticulitis Diabetes type 2, controlled Hypoglycemia Gout Hyperlipidemia LDL goal <130 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 Home Medications ?Medication ?Instructions ?Recorded ?Last Taken ?Type prodigy #1 ea 03/02/18 Unknown History fluticasone propionate 0.05 % 1 applic topical QD-BID PRN 11/05/20 Unknown Rx topical cream (Cutivate) allergic reaction #60 grams albuterol sulfate 90 mcg/actuation 2 puff inhalation Q4H PRN sob #6.7 08/22/24 Unknown Rx aerosol inhaler (Ventolin HFA) grams bupropion HCl 100 mg tablet,12 hr 100 mg PO BID #180 tabs 08/22/24 03/18/25 23:50 Rx sustained-release celecoxib 200 mg capsule 200 mg PO BID #180 caps 08/22/24 03/18/25 11:50 Rx gabapentin 400 mg capsule 400 mg PO TID 90 days #270 caps 08/22/24 03/18/25 06:51 Rx glimepiride 4 mg tablet 4 mg PO QAM #90 tabs 08/22/24 03/18/25 06:51 Rx metformin 850 mg tablet 850 mg PO BID #180 tabs 08/22/24 03/18/25 06:52 Rx metoprolol tartrate 37.5 mg tablet 37.5 mg PO BID #180 tabs 08/22/24 03/18/25 06:52 Rx mirtazapine 15 mg tablet 7.5 mg (1/2 x 15 mg) PO QHS PRN 08/22/24 03/17/25 23:52 Rx sleep 90 days #90 tabs pioglitazone 45 mg tablet 45 mg PO DAILY #90 tabs 08/22/24 03/17/25 18:53 Rx tramadol 50 mg tablet 50 mg PO TID neuropathic pain #90 08/22/24 03/18/25 06:54 Rx tabs levothyroxine 75 mcg tablet 75 mcg PO QDAY #90 tabs 11/03/24 03/18/25 06:51 Rx (Euthyrox) atorvastatin 40 mg tablet 40 mg PO QHS #90 tabs 11/27/24 03/17/25 23:49 Rx ammonium lactate 12 % topical cream 1 applic topical PRN CRACKED HANDS 03/06/25 Unknown History duloxetine 60 mg capsule,delayed 60 mg PO QHS depression 03/06/25 03/17/25 23:50 History release ketorolac 10 mg tablet 10 mg PO 4X/DAY PRN PRN moderate 03/06/25 03/10/25 History pain tamsulosin 0.4 mg capsule 0.4 mg PO DAILY enlarged prostate 03/06/25 03/18/25 06:54 History oxycodone 5 mg tablet 5 mg PO Q6H PRN pain 7 days #20 03/11/25 03/15/25 Rx tabs spironolactone 25 mg tablet 25 mg PO DAILY #30 tabs 03/17/25 Unknown Rx apixaban 5 mg tablet (Eliquis) 5 mg PO BID Afib 03/18/25 03/18/25 06:54 History furosemide 40 mg tablet 40 mg PO .qd CHF 03/18/25 03/17/25 06:55 History magnesium oxide 250 mg PO DAILY supplement 03/18/25 03/18/25 06:52 History multivitamin 1 tab PO DAILY supplement 03/18/25 03/18/25 06:52 History ondansetron 4 mg disintegrating 4 mg PO Q8H PRN PRN nausea 03/18/25 Unknown History tablet Allergy/AdvReac Type Severity Reaction Status Date / Time No Known Allergies Allergy Verified 03/18/25 18:06 Family History Other Esophageal cancer FH: ovarian cancer Surgical History History of surgery History of foot surgery History of colonoscopy Lump of skin of back History of colectomy History of appendectomy History of cholecystectomy Social History household members: spouse Smoking Status: Never smoker Review of Systems (Anesthesia) ROS Narrative System reviewed and no additional complaints, except as documented.
--- NOTE | 2025-03-19 15:50 | EX.PCM.CON.G ---
HPI Consult Data Date of Consult: 03/19/25 HPI Narrative Reason for Consultation: Syncope HPI Narrative: JAME GRAY, is a 59 M who presented to the ED with a complaint of lightheadedness and near syncope. Patient was recently discharged from the hospital with CHF as exacerbation and kidney stones. He is on aspirin Plavix and Eliquis and has also been taken celecoxib for arthritis. Patient apparently feels lightheaded whenever he gets up and has gone on over the past 2 weeks. He feels dizzy and lightheaded when he stands and feels better when he sits down and has also had several episodes of syncope. He denied any nausea or vomiting, fever or chills, chest pain or palpitations. He denied any diarrhea but admitted to dark stools. He had recently been on oral toradol for kidney stones and is also chronically on celebrex at home. Review of systems otherwise negative. He went to see his PCP today and was told to come into the ED. I was asked to see him because his hemoglobin went from 12.7-11.1 in 1 day and his stools were fecal occult positive. [facility] Medical History CHF exacerbation ADDY (obstructive sleep apnea) Chronic anticoagulation Atrial fibrillation Morbid obesity with BMI of 45.0-49.9, adult Respiratory insufficiency Hypertension Diabetes Chronic pain Kidney stones Atrial fibrillation Congestive heart failure (CHF) Wears glasses Vertigo History of MRSA infection Cancer Neuropathy Rheumatoid arthritis Arthritis High cholesterol Excessive bleeding Dietary restriction History of diverticulitis Sleep apnea Non-smoker History of echocardiogram History of stress test Hypertension Cardiology follow-up encounter History of atrial fibrillation History of CHF (congestive heart failure) Hypothyroidism Depression Diaphragm dysfunction Dupuytren's fibromatosis Basal cell carcinoma (BCC) in situ of skin Insomnia Bursitis of right shoulder Pneumonia Diverticulitis Diabetes type 2, controlled Hypoglycemia Gout Hyperlipidemia LDL goal <130 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 Home Medications ?Medication ?Instructions ?Recorded ?Last Taken ?Type prodigy #1 ea 03/02/18 Unknown History fluticasone propionate 0.05 % 1 applic topical QD-BID PRN 11/05/20 Unknown Rx topical cream (Cutivate) allergic reaction #60 grams albuterol sulfate 90 mcg/actuation 2 puff inhalation Q4H PRN sob #6.7 08/22/24 Unknown Rx aerosol inhaler (Ventolin HFA) grams bupropion HCl 100 mg tablet,12 hr 100 mg PO BID #180 tabs 08/22/24 03/18/25 23:50 Rx sustained-release celecoxib 200 mg capsule 200 mg PO BID #180 caps 08/22/24 03/18/25 11:50 Rx gabapentin 400 mg capsule 400 mg PO TID 90 days #270 caps 08/22/24 03/18/25 06:51 Rx glimepiride 4 mg tablet 4 mg PO QAM #90 tabs 08/22/24 03/18/25 06:51 Rx metformin 850 mg tablet 850 mg PO BID #180 tabs 08/22/24 03/18/25 06:52 Rx metoprolol tartrate 37.5 mg tablet 37.5 mg PO BID #180 tabs 08/22/24 03/18/25 06:52 Rx mirtazapine 15 mg tablet 7.5 mg (1/2 x 15 mg) PO QHS PRN 08/22/24 03/17/25 23:52 Rx sleep 90 days #90 tabs pioglitazone 45 mg tablet 45 mg PO DAILY #90 tabs 08/22/24 03/17/25 18:53 Rx tramadol 50 mg tablet 50 mg PO TID neuropathic pain #90 08/22/24 03/18/25 06:54 Rx tabs levothyroxine 75 mcg tablet 75 mcg PO QDAY #90 tabs 11/03/24 03/18/25 06:51 Rx (Euthyrox) atorvastatin 40 mg tablet 40 mg PO QHS #90 tabs 11/27/24 03/17/25 23:49 Rx ammonium lactate 12 % topical cream 1 applic topical PRN CRACKED HANDS 03/06/25 Unknown History duloxetine 60 mg capsule,delayed 60 mg PO QHS depression 03/06/25 03/17/25 23:50 History release ketorolac 10 mg tablet 10 mg PO 4X/DAY PRN PRN moderate 03/06/25 03/10/25 History pain tamsulosin 0.4 mg capsule 0.4 mg PO DAILY enlarged prostate 03/06/25 03/18/25 06:54 History oxycodone 5 mg tablet 5 mg PO Q6H PRN pain 7 days #20 03/11/25 03/15/25 Rx tabs spironolactone 25 mg tablet 25 mg PO DAILY #30 tabs 03/17/25 Unknown Rx apixaban 5 mg tablet (Eliquis) 5 mg PO BID Afib 03/18/25 03/18/25 06:54 History furosemide 40 mg tablet 40 mg PO .qd CHF 03/18/25 03/17/25 06:55 History magnesium oxide 250 mg PO DAILY supplement 03/18/25 03/18/25 06:52 History multivitamin 1 tab PO DAILY supplement 03/18/25 03/18/25 06:52 History ondansetron 4 mg disintegrating 4 mg PO Q8H PRN PRN nausea 03/18/25 Unknown History tablet Allergy/AdvReac Type Severity Reaction Status Date / Time No Known Allergies Allergy Verified 03/18/25 18:06 Family History Other Esophageal cancer FH: ovarian cancer Surgical History History of surgery History of foot surgery History of colonoscopy Lump of skin of back History of colectomy History of appendectomy History of cholecystectomy Social History household members: spouse Smoking Status: Never smoker ROS Constitutional Constitutional: Denies fatigue, fever(s), poor appetite, weight gain or weight loss Gastrointestinal Gastrointestinal: Denies belching, bloating, change in bowel habits, change in stool character, chewing difficulty, coffee ground emesis, constipation, cramping, diarrhea, dyspepsia, dysphagia, early satiety, excessive flatus, fecal incontinence, heartburn, hematemesis, hematochezia, hemorrhoids, loose stools, melena, nausea, odynophagia, rectal bleeding, tenesmus, vomiting or weight changes Physical Exam Const alert, oriented x3, no apparent distress and healthy appearing General Appearance: cooperative GI normal to inspection, nondistended, normoactive bowel sounds, soft to palpation, non-tender and non-distended Percussion: normal to percussion Rectal Exam: deferred Lab / Micro Data 03/19/25 04:36 03/19/25 04:36 Labs: Laboratory Results - last 24 hr 03/18/25 18:34: WBC 10.8, RBC 3.60 L, Hgb 11.1 L, Hct 34.1 L, MCV 94.7 H, MCH 30.8, MCHC 32.6, RDW Std Deviation 45.5 H, RDW Coeff of Sarah 13.2, Plt Count 245, MPV 12.3 H, Immature Gran % (Auto) 0.300, Neut % (Auto) 66.1, Lymph % (Auto) 18.6 L, [place] % (Auto) 11.3 H, Eos % (Auto) 3.1, Baso % (Auto) 0.6, Absolute Neuts (auto) 7.1, Absolute Lymphs (auto) 2.00, Nucleated RBC % 0, D-Dimer Quant (PE/DVT) < 0.27 L, Sodium 138, Potassium 5.0, Chloride 99, Carbon Dioxide 30.2, Anion Gap 9, BUN 69 H, Creatinine 1.70 H, Estim Creat Clear Calc 77.42, Est GFR (MDRD) Non-Af 46 L, BUN/Creatinine Ratio 40.4 H, Glucose 180 H, Calcium 9.5, NT pro BNP II 128 03/18/25 20:00: Urine Color Yellow, Urine Clarity Cloudy, Urine pH 5.0, Ur Specific [place] 1.020, Urine Protein 100 H, Urine Glucose (UA) 100 H, Urine Ketones Negative, Urine Occult Blood 250 H, Urine Nitrite Positive H, Urine Bilirubin 1 H, Urine Urobilinogen Normal, Ur Leukocyte Esterase 500 H, Urine RBC 25-50 SEEN, Urine WBC 10-25 SEEN, Ur Squamous Epith Cells 0 SEEN, Amorphous Sediment 2+, Urine Bacteria 3+, Urine Mucus 0 SEEN 03/19/25 00:51: POC Glucose 131 H 03/19/25 04:36: WBC 8.0, RBC 3.03 L, Hgb 9.3 L, Hct 28.7 L, MCV 94.7 H, MCH 30.7, MCHC 32.4, RDW Std Deviation 46.0 H, RDW Coeff of Sarah 13.3, Plt Count 189, MPV 12.6 H, Immature Gran % (Auto) 0.400, Neut % (Auto) 58.6, Lymph % (Auto) 28.7, [place] % (Auto) 8.0, Eos % (Auto) 3.5, Baso % (Auto) 0.8, Absolute Neuts (auto) 4.7, Absolute Lymphs (auto) 2.29, Nucleated RBC % 0, PT 14.3, INR 1.1, APTT 28.6, Sodium 141, Potassium 4.8, Chloride 106, Carbon Dioxide 27.5, Anion Gap 8, BUN 62 H, Creatinine 1.50 H, Estim Creat Clear Calc 87.50, Est GFR (MDRD) Non-Af 54 L, BUN/Creatinine Ratio 41.3 H, Glucose 151 H, Calcium 8.8, Total Bilirubin 0.29, Direct Bilirubin 0.12, AST 15, ALT 10, Alkaline Phosphatase 66, Total Protein 5.5 L, Albumin 3.2 L, Globulin 2.3 03/19/25 05:31: POC Glucose 149 H 03/19/25 11:40: POC Glucose 155 H Micro: Microbiology 03/18/25 21:14 Stool Stool Occult Blood (LETY) - Final Occult Blood Positive Imaging Radiology Impression Chest X-Ray 03/18/25 19:35 IMPRESSION: Elevated right hemidiaphragm, likely with overlying atelectasis. Unchanged. Reading Location: [id number] Assessment & Plan Assessment/Plan (1) Orthostatic hypotension: (2) Acute upper gastrointestinal bleeding: PLAN: He will undergo an upper endoscopy to evaluate his upper GI tract. He was explained alternatives, risk and benefits include not withstanding bleeding, infection, sepsis, perforation, need for emergent urgent . He will have an ASA of 3. Charges/Coding Visit Charges Inpatient E&M: 52078 Init Hosp L3
--- NOTE | 2025-03-19 16:00 | EGD_PTH ---
PATIENT: JAME GRAY LOC: [facility] U#:[id number] AGE/SX: 59/M ROOM: [facility] RE03/18/[address]: Dr. Herbert Mane DO : 1965 BED: 1 DIS: 03/20/2025 SPEC #: [id number] RECD: 03/19/25 16:26 STATUS: GEORGE REQ #: [id number] ANA M: 03/19/25 16:[address]: Herbert Mane DEPT: SURGICAL PATHOLOGY RECD BY: Kelsey Parker ENTERED: 03/20/25 07:23 SP TYPE: EGD BIOPSY OTHR DR: MD Dr. Kendall Quan MD Dr. Prakash Chand, MD Dr. Rahsaan Friend, DO ELDON MarinaC DAVID [place], NICOLLE Dixon Tissues: Gastric mucous membrane Procedures: Immunohistochemical Stains Surgery Specimen Level IV HEADER OPERATION: EGD with biopsy PRE-OP DIAGNOSIS: Orthostatic hypotension, acute upper gastrointestinal bleeding TISSUE SUBMITTED: A- Gastric antrum ulcer biopsy MICROSCOPIC DIAGNOSIS A. Gastric antrum, ulcer, biopsy: * Antral mucosa with features of reactive gastropathy and mild active chronic inflammation. * IHC negative for H. pylori organisms. MICROSCOPIC DESCRIPTION Slides are reviewed. Slides are reviewed. All matched controls reacted appropriately. These tests were developed and their performance characteristics determined by [facility]. They may not have been cleared or approved by the U.S. Food and Drug Administration. The FDA has determined that such clearance or approval is not necessary. The above immunohistochemical markers and/or special?stains have been reviewed by the Pathologist. GROSS DESCRIPTION A. Received in fixative is one container labeled with the patient's name and designated Gastric antrum ulcer biopsy. The specimen consists of four irregular fragments of ruth tissue that measure 0.1 to 0.4 cm. The specimen is totally submitted in one cassette. [place] 03/20/2025 CPT:81284,16960
[2025-03-19] MEDS: Lidocaine 1% (5 ml sdv) 5 ML Vial 10 ML IV (16:03)
--- NOTE | 2025-03-19 16:17 | OP.PROVAT_ITS ---
03/19/2025 Jenny Live NP After Hours [facility] [address] [place] [address] Re : Upper GI endoscopy procedure for Andrew Wallace Dear Ms. Live This procedure was performed on March. My impressions and recommendations are as follows: Impressions : - Normal esophagus. - Non-bleeding gastric ulcers with no stigmata of bleeding. Biopsied. - No gross lesions in the entire examined duodenum. Recommendations : - Await pathology results. - Repeat upper endoscopy in 3 months for surveillance. - Use Protonix (pantoprazole) 40 mg PO BID indefinitely. - Use sucralfate tablets 1 gram PO QID for 1 month. - Continue present medications. My findings are described in the full procedure note, which is enclosed. If I can be of further assistance, please feel free to contact me at . Sincerely, Isaiah Friend, 03/19/2025 4:17:30 PM This report has been signed electronically.
--- NOTE | 2025-03-19 16:17 | OP.EGD_ITS ---
Patient Name: Andrew Wallace Procedure Date: 03/19/2025 3:15 PM Date of : 1965 Age: 59 Procedure: Upper GI endoscopy Indications: Acute post hemorrhagic anemia, Melena Providers: Isaiah Galloway DO Medicines: Monitored Anesthesia Care Patient Profile: This is a 59 year old male. Refer to note in patient chart for documentation of history and physical. Patient has symptoms of acute dyspepsia and acute nausea. Complications: No immediate complications. Procedure: Pre-Anesthesia Assessment: - Prior to the procedure, a History and Physical was performed, and patient medications and allergies were reviewed. The patient is competent. The risks and benefits of the procedure and the sedation options and risks were discussed with the patient. All questions were answered and informed consent was obtained. Patient identification and proposed procedure were verified by the physician in the pre-procedure area. Mental Status Examination: alert and oriented. Airway Examination: normal oropharyngeal airway and neck mobility. Respiratory Examination: clear to auscultation. CV Examination: normal. Prophylactic Antibiotics: The patient does not require prophylactic antibiotics. Prior Anticoagulants: The patient has taken no anticoagulant or antiplatelet agents except for NSAID medication. ASA Grade Assessment: II - A patient with mild systemic disease. After reviewing the risks and benefits, the patient was deemed in satisfactory condition to undergo the procedure. The anesthesia plan was to use monitored anesthesia care (MAC). Immediately prior to administration of medications, the patient was re-assessed for adequacy to receive sedatives. The heart rate, respiratory rate, oxygen saturations, blood pressure, adequacy of pulmonary ventilation, and response to care were monitored throughout the procedure. The physical status of the patient was re-assessed after the procedure. After obtaining informed consent, the endoscope was passed under direct vision. Throughout the procedure, the patient's blood pressure, pulse, and oxygen saturations were monitored continuously. The Endoscope was introduced through the mouth, and advanced to the third part of the duodenum. Small bowel enteroscopy was deemed necessary. The upper GI endoscopy was accomplished without difficulty. The patient tolerated the procedure well. Scope In: 4:06:13 PM Scope Out: 4:10:31 PM Total Procedure Duration Time 0 hours 4 minutes 18 seconds Findings: The examined esophagus was normal. Many non-bleeding cratered gastric ulcers with no stigmata of bleeding were found in the gastric antrum. The largest lesion was 10 mm in largest dimension. Biopsies were taken with a cold forceps for histology. Verification of patient identification for the specimen was done. Estimated blood loss was minimal. Biopsies were taken with a cold forceps for Helicobacter pylori testing. Verification of patient identification for the specimen was done. No gross lesions were noted in the entire examined duodenum. Impression: - Normal esophagus. - Non-bleeding gastric ulcers with no stigmata of bleeding. Biopsied. - No gross lesions in the entire examined duodenum. Recommendation: - Await pathology results. - Repeat upper endoscopy in 3 months for surveillance. - Use Protonix (pantoprazole) 40 mg PO BID indefinitely. - Use sucralfate tablets 1 gram PO QID for 1 month. - Continue present medications. Procedure Code(s): --- Professional --- 13756, Small intestinal endoscopy, enteroscopy beyond second portion of duodenum, not including ileum; with biopsy, single or multiple CPT copyright 2021 [employer]. All rights reserved. The codes documented in this report are preliminary and upon hydrometeorologist review may be revised to meet current compliance requirements. Isaiah Galloway DO 03/19/2025 4:17:30 PM This report has been signed electronically. Number of Addenda: 0 Note Initiated On: 03/19/2025 3:15 PM
--- NOTE | 2025-03-19 16:28 | PCM.POST.ANE ---
Anesthesia: Postop Eval I Current Vital Signs Temperature: 98.2 F Pulse Rate: 83 Blood Pressure: 100/50 Respiratory Rate: 16 Pulse Ox: 97 Assessment Airway patent: Yes Spontaneous unlabored respirations: Yes nausea: No Vomiting: No Anesthesia Complication: No Fluid Hydration Crystalloid volume administer (ml): 200 Total IV fluid infused: 200 Progress Note Anesthesia document: Postop Eval 1 completed: Yes
--- NOTE | 2025-03-19 17:04 | POSTOPAN2_ITS ---
Anesthesia Postop Eval I Sum Postop Eval Completion status Anesthesia document: Postop Eval 1 completed: Yes Anesthesia Postop Eval I Summary Anesthesia Postop Eval I Summary: Anesthesia Postop Eval I: Assessment Summary Airway patent Yes 03/19/25 16:28 CONTINUOUS PROCESS ROTARY DRUM TANNER.TNES Spontaneous unlabored Yes 03/19/25 16:28 CONTINUOUS PROCESS ROTARY DRUM TANNER.TNES respirations Mental status nausea No 03/19/25 16:28 CONTINUOUS PROCESS ROTARY DRUM TANNER.TNES Vomiting No 03/19/25 16:28 CONTINUOUS PROCESS ROTARY DRUM TANNER.TNES Anesthesia Postop Eval I: Fluid Summary Crystalloid volume administer 200 03/19/25 16:28 CONTINUOUS PROCESS ROTARY DRUM TANNER.TNES (ml) Colloids volume administered ( ml) Blood Product volume administered (ml) Total IV fluid infused 200 03/19/25 16:28 CONTINUOUS PROCESS ROTARY DRUM TANNER.TNES Anesthesia Postop Eval I: Summary Notes Anesthesia Complication No 03/19/25 16:28 CONTINUOUS PROCESS ROTARY DRUM TANNER.TNES Anesthesia Complication Comment: Post-operative progress note Anesthesia: Postop Eval II Evaluation Mental status: Awake and Calm Pain Level: 1 nausea: No Vomiting: No Complications Anesthesia Complication: No
--- NOTE | 2025-03-19 17:04 | PCM.POSTANE2 ---
Anesthesia Postop Eval I Sum Postop Eval Completion status Anesthesia document: Postop Eval 1 completed: Yes Anesthesia Postop Eval I Summary Anesthesia Postop Eval I Summary: Anesthesia Postop Eval I: Assessment Summary Airway patent Yes 03/19/25 16:28 GENERAL LOT ATTENDANT.TNES Spontaneous unlabored Yes 03/19/25 16:28 GENERAL LOT ATTENDANT.TNES respirations Mental status nausea No 03/19/25 16:28 GENERAL LOT ATTENDANT.TNES Vomiting No 03/19/25 16:28 GENERAL LOT ATTENDANT.TNES Anesthesia Postop Eval I: Fluid Summary Crystalloid volume administer 200 03/19/25 16:28 GENERAL LOT ATTENDANT.TNES (ml) Colloids volume administered ( ml) Blood Product volume administered (ml) Total IV fluid infused 200 03/19/25 16:28 GENERAL LOT ATTENDANT.TNES Anesthesia Postop Eval I: Summary Notes Anesthesia Complication No 03/19/25 16:28 GENERAL LOT ATTENDANT.TNES Anesthesia Complication Comment: Post-operative progress note Anesthesia: Postop Eval II Evaluation Mental status: Awake and Calm Pain Level: 1 nausea: No Vomiting: No Complications Anesthesia Complication: No
--- NOTE | 2025-03-19 18:23 | PN.HOSP_ITS ---
Subjective Subjective Patient was seen and examined today, EGD was done which showed nonbleeding gastric ulcers, there were no lesions in the duodenum. Patient is on a Protonix drip and Carafate, CBC will be repeated tomorrow, patient's hemoglobin this morning was 9.3. Objective Data Objective Data Vital Signs: Vital Signs Temp Pulse Resp BP Pulse Ox O2 Del Method 98.2 F 83 16 100/50 L 97 Room Air 03/19/25 16:28 03/19/25 16:28 03/19/25 16:28 03/19/25 16:28 03/19/25 16:28 03/19/25 16:25 Oxygen Delivery Method Room Air Weight: 164.8 kg Body Mass Index (BMI) 46.6 Intake & Output: Intake and Output for Last 24 Hours 03/17/25 03/18/25 03/19/25 23:59 23:59 23:59 Intake Total 2034 1499.67 / 1499.67 Output Total 1000 / 1000 Balance 2034 499.67 / 499.67 Lab / Micro Data 03/20/25 05:01 03/19/25 04:36 Labs: Laboratory Results - last 24 hr 03/18/25 18:34: WBC 10.8, RBC 3.60 L, Hgb 11.1 L, Hct 34.1 L, MCV 94.7 H, MCH 30.8, MCHC 32.6, RDW Std Deviation 45.5 H, RDW Coeff of Sarah 13.2, Plt Count 245, MPV 12.3 H, Immature Gran % (Auto) 0.300, Neut % (Auto) 66.1, Lymph % (Auto) 18.6 L, [place] % (Auto) 11.3 H, Eos % (Auto) 3.1, Baso % (Auto) 0.6, Absolute Neuts (auto) 7.1, Absolute Lymphs (auto) 2.00, Nucleated RBC % 0, D-Dimer Quant (PE/DVT) < 0.27 L, Sodium 138, Potassium 5.0, Chloride 99, Carbon Dioxide 30.2, Anion Gap 9, BUN 69 H, Creatinine 1.70 H, Estim Creat Clear Calc 77.42, Est GFR (MDRD) Non-Af 46 L, BUN/Creatinine Ratio 40.4 H, Glucose 180 H, Calcium 9.5, NT pro BNP II 128 03/18/25 20:00: Urine Color Yellow, Urine Clarity Cloudy, Urine pH 5.0, Ur Specific [place] 1.020, Urine Protein 100 H, Urine Glucose (UA) 100 H, Urine Ketones Negative, Urine Occult Blood 250 H, Urine Nitrite Positive H, Urine Bilirubin 1 H, Urine Urobilinogen Normal, Ur Leukocyte Esterase 500 H, Urine RBC 25-50 SEEN, Urine WBC 10-25 SEEN, Ur Squamous Epith Cells 0 SEEN, Amorphous Sediment 2+, Urine Bacteria 3+, Urine Mucus 0 SEEN 03/19/25 00:51: POC Glucose 131 H 03/19/25 04:36: WBC 8.0, RBC 3.03 L, Hgb 9.3 L, Hct 28.7 L, MCV 94.7 H, MCH 30.7, MCHC 32.4, RDW Std Deviation 46.0 H, RDW Coeff of Sarah 13.3, Plt Count 189, MPV 12.6 H, Immature Gran % (Auto) 0.400, Neut % (Auto) 58.6, Lymph % (Auto) 28.7, [place] % (Auto) 8.0, Eos % (Auto) 3.5, Baso % (Auto) 0.8, Absolute Neuts (auto) 4.7, Absolute Lymphs (auto) 2.29, Nucleated RBC % 0, PT 14.3, INR 1.1, APTT 28.6, Sodium 141, Potassium 4.8, Chloride 106, Carbon Dioxide 27.5, Anion Gap 8, BUN 62 H, Creatinine 1.50 H, Estim Creat Clear Calc 87.50, Est GFR (MDRD) Non-Af 54 L, BUN/Creatinine Ratio 41.3 H, Glucose 151 H, Calcium 8.8, Total Bilirubin 0.29, Direct Bilirubin 0.12, AST 15, ALT 10, Alkaline Phosphatase 66, Total Protein 5.5 L, Albumin 3.2 L, Globulin 2.3 03/19/25 05:31: POC Glucose 149 H 03/19/25 11:40: POC Glucose 155 H Micro: Microbiology 03/18/25 21:14 Stool Stool Occult Blood (LETY) - Final Occult Blood Positive Radiography Diagnostic Testing: Radiology Impression Chest X-Ray 03/18/25 19:35 IMPRESSION: Elevated right hemidiaphragm, likely with overlying atelectasis. Unchanged. Reading Location: [facility] Physical Exam Const alert, oriented x3, no apparent distress and healthy appearing Constitutional Narrative: Patient has class III obesity General Appearance: cooperative, well kempt and well developed Orientation / Consciousness: awake, oriented to person, oriented to place and oriented to time HEENT normocephalic, head/scalp atraumatic and moist oral mucous membranes Eyes PERRL, EOMs intact bilaterally and conjunctivae normal Neck supple, no JVD, thyroid normal and no carotid bruits General: trachea midline Resp normal respiratory effort, no retractions, no use of accessory muscles and clear to auscultation bilaterally Auscultation: Negative for rales, rhonchi or wheezes Cardio regular rate, regular rhythm, S1 normal heart sound, S2 normal heart sound, no murmurs, no rub and no gallops GI normal to inspection, nondistended, normoactive bowel sounds, soft to palpation, non-tender and non-distended Extremity no clubbing, cyanosis or edema Skin no rashes or lesions noted General Skin Exam: no breakdown Neuro oriented x3, CN's II-XII intact bilaterally, no focal motor deficits and no sensory deficits noted Sensorium / Orientation: awake and alert Speech: speech normal Psych affect normal Assessment & Plan Assessment/Plan (1) Orthostatic hypotension: PLAN: Plan 1. Orthostatic hypotension secondary to acute anemia from upper GI bleed (gastric ulcers)-patient's hemoglobin will be rechecked tomorrow morning, continue Protonix and Carafate #2 acute anemia secondary to acute upper GI bleed-CBC will be rechecked tomorrow #3 paroxysmal [id number] will continue metoprolol, he is off Eliquis #4 gastric ulcers secondary to use of nonsteroidal anti-inflammatory agents- patient has been cautioned to remain off these medications #5 bacteriuria-patient is receiving IV Rocephin, await urine culture results #6 hypothyroidism-patient is on Synthroid #7 chronic diastolic congestive heart failure-patient is stable at this time Total clinical time spent by myself addressing the patient's medical issues, reviewing all of his data, and collaborating with the patient's care team: 35 minutes Charges/Coding Visit Charges Inpatient E&M: 20290 Subs Hosp L2
[2025-03-19] MEDS: buPROPion (SR) 100 MG TABLET.SA PO (21:37)
[2025-03-20 02:00] VITALS: PULSE 68
[2025-03-20 03:00] VITALS: BP 112/53; PULSE 70; RESP 17; TEMP 36.7; O2SAT 96
[2025-03-20] MEDS: Pantoprazole Sodium 80 MG in 0.9% Normal Saline (100mL Bag) 80 ML 10 MG CONT INF (03:20)
[2025-03-20 05:56] LABS: Hematocrit 25.9 % (40-54); Hemoglobin 8.6 g/dL (13.0-16.5); Immature Granulocytes Count 0.010 X10^3/uL (0.0-0.0); Mean Corp Hgb Conc 33.2 g/dL (32-36); Mean Corpuscular Volume 93.5 fL (80-94); Mean Platelet Vol. 12.3 fl (6.2-12.0); NRBC Flagged by Analyzer 0 % (0-5); Platelet Count 171 K/mm3 (150-450); RBC Distribution Width CV 13.5 % (11.6-14.6); RBC Distribution Width SD 46.0 fl (35.1-43.9); Red Blood Count 2.77 M/mm3 (4.6-6.2); White Blood Count 6.3 K/mm3 (4.4-11.0)
[2025-03-20 09:15] VITALS: BP 124/62; PULSE 69; RESP 16; TEMP 36.6; O2SAT 95
[2025-03-20 09:17] VITALS: PULSE 69
[2025-03-20] MEDS: buPROPion (SR) 100 MG TABLET.SA PO (09:17)
[2025-03-20] MEDS: Magnesium Chloride 64 MG Delay Rel.Tablet PO (09:17)
--- NOTE | 2025-03-20 13:07 | DCINST_ITS ---
Discharge Instructions DC O2, CPAP, BIPAP needs Home O2 Discharge instructions: No Dressing / Incision Discharge Activity: Return to Normal Activity Weight Bearing Status: Full weight bearing Follow Up Care Test Results: Test results from this visit will be discussed in further detail at your follow- up appointment, if applicable. Discharge Plan Admission Admit Date/Time: 03/18/25 22:10 Primary Reason for Your Visit: Anemia, gastric ulcer Attending Provider: Herbert Mane Primary Care Provider: Jenny Live NP Consulting Providers: Andrzej Fagan; Isaiah Galloway; Анна Weinstein; Carlyn Brown; Damari Kincaid; Nuzhat Cutler; Kendall Russ Instructions Additional Instructions / Restrictions: You may take Tylenol with your tramadol for pain, do not take any Aleve, ibuprofen, Celebrex, or Toradol for pain Discharge Orders/Prescriptions Prescriptions: New sucralfate 1 gram Tablet 1 g PO TID Qty: 90 0RF pantoprazole [Protonix] 40 mg tablet,delayed release (DR/EC) 40 mg PO BID Qty: 60 0RF Continued (DME) prodigy Qty: 1 Dose Instruction: As directed Rx Instructions: As directed fluticasone propionate [Cutivate] 0.05 % cream 1 applic TOPICAL QD-BID PRN (Reason: allergic reaction) Qty: 60 12RF albuterol sulfate [Ventolin HFA] 90 mcg/actuation HFA aerosol inhaler 2 puff inhalation Q4H PRN (Reason: sob) Qty: 6.7 3RF bupropion HCl 100 mg tablet sustained-release 12 hr 100 mg PO BID Qty: 180 3RF gabapentin 400 mg capsule 400 mg PO TID 90 Days Qty: 270 3RF glimepiride 4 mg tablet 4 mg PO QAM Qty: 90 3RF metformin 850 mg tablet 850 mg PO BID Qty: 180 3RF metoprolol tartrate 37.5 mg tablet 37.5 mg PO BID Qty: 180 3RF mirtazapine 15 mg tablet 7.5 mg PO QHS PRN (Reason: sleep) 90 Days Qty: 90 3RF pioglitazone 45 mg tablet 45 mg PO DAILY Qty: 90 3RF tramadol 50 mg tablet 50 mg PO TID Qty: 90 5RF atorvastatin 40 mg tablet 40 mg PO QHS Qty: 90 3RF magnesium oxide 250 mg magnesium tablet 250 mg PO DAILY ondansetron 4 mg tablet,disintegrating 4 mg PO Q8H PRN PRN (Reason: nausea) multivitamin Tablet 1 tab PO DAILY furosemide 40 mg tablet 40 mg PO .qd tamsulosin 0.4 mg capsule 0.4 mg PO DAILY ammonium lactate 12 % cream 1 applic TOPICAL PRN duloxetine 60 mg capsule,delayed release(DR/EC) 60 mg PO QHS oxycodone 5 mg tablet 5 mg PO Q6H PRN (Reason: pain) 7 Days Qty: 20 0RF levothyroxine [Euthyrox] 75 mcg tablet 75 mcg PO QDAY Qty: 90 3RF Changed spironolactone 25 mg Tablet 12.5 mg PO DAILY Qty: 30 0RF Held Eliquis 5 mg tablet 5 mg PO BID Hold Instructions: Resume on 04/03/25. Hold your Eliquis for 2 weeks, then resume it at 5 mg twice a day Discontinued celecoxib 200 mg capsule 200 mg PO BID Qty: 180 3RF ketorolac 10 mg tablet 10 mg PO 4X/DAY PRN PRN (Reason: moderate pain) Referrals / Follow Up: Jenny Live NP, FOOD AND BEVERAGE ANALYST-C [Primary Care Provider, Family Practice] - In 1 Week Referral Note: Have your family physician repeat your CBC next week Nkechi Washington PA [Med Staff - [facility] Practice Prof, Cardiology] - 9:30 am Disposition Disposition (needs filled in before D/C Order can be placed): Home, Self Care
--- NOTE | 2025-03-20 13:42 | DS.PCM_ITS ---
Providers Date of Admission: 03/18/25 Date of Discharge: 03/20/25 Primary Care Physician: DAVID Marina Consultations 03/18/25 23:21 Consult: Gastroenterology Routine Consulting Provider: [facility] Reason for Consult: acute GI bleed EMERGENT Consult: No MD Notified: Yes Date Notified: 03/18/25 Time Notified: 23:03 Method of Notification: ED Physician Initiated Reason For Visit: SYNCOPE, GI BLEED Diagnosis Discharge Diagnosis (1) Orthostatic hypotension: Status: Acute Code(s): I95.1 - Orthostatic hypotension Plan 1. Orthostatic hypotension secondary to acute anemia from upper GI bleed (gastric ulcers)-patient's hemoglobin will be rechecked tomorrow morning, continue Protonix and Carafate #2 acute anemia secondary to acute upper GI bleed-CBC will be rechecked tomorrow #3 paroxysmal P-[id number] will continue metoprolol, he is off Eliquis #4 gastric ulcers secondary to use of nonsteroidal anti-inflammatory agents- patient has been cautioned to remain off these medications #5 bacteriuria-patient is receiving IV Rocephin, await urine culture results #6 hypothyroidism-patient is on Synthroid #7 chronic diastolic congestive heart failure-patient is stable at this time Total clinical time spent by myself addressing the patient's medical issues, reviewing all of his data, and collaborating with the patient's care team: 35 minutes Medications at Discharge Home Medications prodigy #1 ea 03/02/18 fluticasone propionate 0.05 % topical cream (Cutivate) 1 applic topical QD-BID PRN allergic reaction #60 grams 11/05/20 albuterol sulfate 90 mcg/actuation aerosol inhaler (Ventolin HFA) 2 puff inhalation Q4H PRN sob #6.7 grams 08/22/24 bupropion HCl 100 mg tablet,12 hr sustained-release 100 mg PO BID #180 tabs 08/22/24 gabapentin 400 mg capsule 400 mg PO TID 90 days #270 caps 08/22/24 glimepiride 4 mg tablet 4 mg PO QAM #90 tabs 08/22/24 metformin 850 mg tablet 850 mg PO BID #180 tabs 08/22/24 metoprolol tartrate 37.5 mg tablet 37.5 mg PO BID #180 tabs 08/22/24 mirtazapine 15 mg tablet 7.5 mg (1/2 x 15 mg) PO QHS PRN sleep 90 days #90 tabs 08/22/24 pioglitazone 45 mg tablet 45 mg PO DAILY #90 tabs 08/22/24 tramadol 50 mg tablet 50 mg PO TID neuropathic pain #90 tabs 08/22/24 levothyroxine 75 mcg tablet (Euthyrox) 75 mcg PO QDAY #90 tabs 11/03/24 atorvastatin 40 mg tablet 40 mg PO QHS #90 tabs 11/27/24 ammonium lactate 12 % topical cream 1 applic topical PRN CRACKED HANDS 03/06/25 duloxetine 60 mg capsule,delayed release 60 mg PO QHS depression 03/06/25 tamsulosin 0.4 mg capsule 0.4 mg PO DAILY enlarged prostate 03/06/25 oxycodone 5 mg tablet 5 mg PO Q6H PRN pain 7 days #20 tabs 03/11/25 apixaban 5 mg tablet (Eliquis) 5 mg PO BID Afib 03/18/25 Held on 03/20/25. Instructions: Resume on 04/03/25. Hold your Eliquis for 2 weeks, then resume it at 5 mg twice a day furosemide 40 mg tablet 40 mg PO .qd CHF 03/18/25 magnesium oxide 250 mg PO DAILY supplement 03/18/25 multivitamin 1 tab PO DAILY supplement 03/18/25 ondansetron 4 mg disintegrating tablet 4 mg PO Q8H PRN PRN nausea 03/18/25 pantoprazole 40 mg tablet,delayed release (Protonix) 40 mg PO BID #60 tabs 03/20/25 spironolactone 25 mg tablet 12.5 mg (1/2 x 25 mg) PO DAILY #30 tabs 03/20/25 sucralfate 1 gram tablet 1 g PO TID #90 tabs 03/20/25 Hospital Course Operations None Procedures EGD Summary of Care Provided Minutes Spent on Discharge: 31 Hospital Course: This 59-year-old white male was seen in the emergency room at [facility] with a complaint of lightheadedness and near syncope. This has been going on for the past 2 weeks when the patient got up from a seated position. Patient had recently been hospitalized for congestive heart failure at [facility] and discharged approximately 24 hours prior. Patient saw his PCP today and was told to come to the ER for further evaluation. CBC showed hemoglobin of 11.1, chemistry profile was relatively unremarkable except for creatinine of 1.7. Urinalysis showed possible UTI with 3+ bacteria elevated white blood cells and nitrites. Stool for occult blood was positive, patient was started on a Protonix drip and admitted to PCU for further care. Blood count was monitored, he did not require blood transfusion, he underwent an EGD which showed multiple gastric ulcers without bleeding. Patient was cautioned against taking nonsteroidal anti-inflammatory agents which she had been taking on an outpatient basis along with his Eliquis. On 03/20/2025, patient was seen and examined: On examination he appeared in good health and spirits. Vital signs as documented. Skin warm and dry and without overt rashes. Neck without JVD, neck was supple, trachea midline, thyroid was normal. Lungs clear bilaterally, normal air movement was noted. Heart exam notable for regular rhythm, normal sounds and absence of murmurs, rubs or gallops. Abdomen unremarkable and without evidence of organomegaly, masses, or abdominal aortic enlargement. Bowel sounds are present, abdomen is not distended. Extremities nonedematous, no cyanosis was noted, no clubbing was noted. Neuro: Cranial nerves II through XII are grossly intact, no focal motor deficits were noted, sensation to light touch and pinprick intact, motor exam 5/5 throughout. Psych: Patient is alert and oriented x3, he does not appear anxious or depressed, he does not appear agitated. Patient was discharged home in stable condition on 03/20/2025. Weight / BMI Weight Weight: 164.8 kg Body Mass Index (BMI) 46.6 ABG / Lab / Microbiology Data 03/20/25 05:01 03/19/25 04:36 Laboratory: Laboratory Results - last 24 hr 03/20/25 00:12: POC Glucose 194 H 03/20/25 05:01: WBC 6.3, RBC 2.77 L, Hgb 8.6 L, Hct 25.9 L, MCV 93.5, MCH 31.0, MCHC 33.2, RDW Std Deviation 46.0 H, RDW Coeff of Sarah 13.5, Plt Count 171, MPV 12.3 H, Immature Gran % (Auto) 0.200, Neut % (Auto) 56.6, Lymph % (Auto) 26.8, M deyanira % (Auto) 11.5 H, Eos % (Auto) 4.3, Baso % (Auto) 0.6, Absolute Neuts (auto) 3.6, Absolute Lymphs (auto) 1.68, Nucleated RBC % 0 03/20/25 12:17: POC Glucose 185 H Microbiology: Microbiology 03/18/25 20:00 Urine, Clean Catch Urine Culture - Final Gram negative edie 03/18/25 21:14 Stool Stool Occult Blood (LETY) - Final Occult Blood Positive D/C Instructions Weight Bearing Status: Full weight bearing DC O2, CPAP, BIPAP Needs Home O2 Discharge instructions: No Meaningful Use Info Meaningful Use Meaningful Use Diagnoses (Choose all that apply): None applicable Discharge Plan Admission Admit Date/Time: 03/18/25 22:10 Primary Reason for Your Visit: Anemia, gastric ulcer Attending Provider: Herbert Mane Primary Care Provider: Jenny Live NP Consulting Providers: Andrzej Fagan; Isaiah Galloway; Анна Weinstein; Cralyn Brown; Damari Kincaid; Nuzhat Cutler; Kendall Russ Instructions Additional Instructions / Restrictions: You may take Tylenol with your tramadol for pain, do not take any Aleve, ibuprofen, Celebrex, or Toradol for pain Discharge Orders/Prescriptions Prescriptions: New sucralfate 1 gram Tablet 1 g PO TID Qty: 90 0RF pantoprazole [Protonix] 40 mg tablet,delayed release (DR/EC) 40 mg PO BID Qty: 60 0RF Continued (DME) prodigy Qty: 1 Dose Instruction: As directed Rx Instructions: As directed fluticasone propionate [Cutivate] 0.05 % cream 1 applic TOPICAL QD-BID PRN (Reason: allergic reaction) Qty: 60 12RF albuterol sulfate [Ventolin HFA] 90 mcg/actuation HFA aerosol inhaler 2 puff inhalation Q4H PRN (Reason: sob) Qty: 6.7 3RF bupropion HCl 100 mg tablet sustained-release 12 hr 100 mg PO BID Qty: 180 3RF gabapentin 400 mg capsule 400 mg PO TID 90 Days Qty: 270 3RF glimepiride 4 mg tablet 4 mg PO QAM Qty: 90 3RF metformin 850 mg tablet 850 mg PO BID Qty: 180 3RF metoprolol tartrate 37.5 mg tablet 37.5 mg PO BID Qty: 180 3RF mirtazapine 15 mg tablet 7.5 mg PO QHS PRN (Reason: sleep) 90 Days Qty: 90 3RF pioglitazone 45 mg tablet 45 mg PO DAILY Qty: 90 3RF tramadol 50 mg tablet 50 mg PO TID Qty: 90 5RF atorvastatin 40 mg tablet 40 mg PO QHS Qty: 90 3RF magnesium oxide 250 mg magnesium tablet 250 mg PO DAILY ondansetron 4 mg tablet,disintegrating 4 mg PO Q8H PRN PRN (Reason: nausea) multivitamin Tablet 1 tab PO DAILY furosemide 40 mg tablet 40 mg PO .qd tamsulosin 0.4 mg capsule 0.4 mg PO DAILY ammonium lactate 12 % cream 1 applic TOPICAL PRN duloxetine 60 mg capsule,delayed release(DR/EC) 60 mg PO QHS oxycodone 5 mg tablet 5 mg PO Q6H PRN (Reason: pain) 7 Days Qty: 20 0RF levothyroxine [Euthyrox] 75 mcg tablet 75 mcg PO QDAY Qty: 90 3RF Changed spironolactone 25 mg Tablet 12.5 mg PO DAILY Qty: 30 0RF Held Eliquis 5 mg tablet 5 mg PO BID Hold Instructions: Resume on 04/03/25. Hold your Eliquis for 2 weeks, then resume it at 5 mg twice a day Discontinued celecoxib 200 mg capsule 200 mg PO BID Qty: 180 3RF ketorolac 10 mg tablet 10 mg PO 4X/DAY PRN PRN (Reason: moderate pain) Referrals / Follow Up: Jenny Live NP, CREAM GATHERER-C [Primary Care Provider, Family Practice] - In 1 Week Referral Note: Have your family physician repeat your CBC next week Nkechi Washington PA [Med Staff - [facility] Practice Prof, Cardiology] - 04/10/25 9:30 am Disposition Disposition (needs filled in before D/C Order can be placed): Home, Self Care Charges/Coding Visit Charges Inpatient E&M: 01165 Disch Hosp >30min
--- NOTE | 2025-03-20 15:19 | PHA.DC.MR.R ---
Pharmacy [place] Med Reconciliation Pharmacy Service has performed discharge medication reconciliation for this patient. Medication education papers prepared, patient discharged when counseling was attempted. Medications reviewed. The patient's discharge medication list was reviewed for discrepancies and discrepancies were resolved. Medications at Discharge Home Medications prodigy #1 ea 03/02/18 fluticasone propionate 0.05 % topical cream (Cutivate) 1 applic topical QD-BID PRN allergic reaction #60 grams 11/05/20 albuterol sulfate 90 mcg/actuation aerosol inhaler (Ventolin HFA) 2 puff inhalation Q4H PRN sob #6.7 grams 08/22/24 bupropion HCl 100 mg tablet,12 hr sustained-release 100 mg PO BID #180 tabs 08/22/24 gabapentin 400 mg capsule 400 mg PO TID 90 days #270 caps 08/22/24 glimepiride 4 mg tablet 4 mg PO QAM #90 tabs 08/22/24 metformin 850 mg tablet 850 mg PO BID #180 tabs 08/22/24 metoprolol tartrate 37.5 mg tablet 37.5 mg PO BID #180 tabs 08/22/24 mirtazapine 15 mg tablet 7.5 mg (1/2 x 15 mg) PO QHS PRN sleep 90 days #90 tabs 08/22/24 pioglitazone 45 mg tablet 45 mg PO DAILY #90 tabs 08/22/24 tramadol 50 mg tablet 50 mg PO TID neuropathic pain #90 tabs 08/22/24 levothyroxine 75 mcg tablet (Euthyrox) 75 mcg PO QDAY #90 tabs 11/03/24 atorvastatin 40 mg tablet 40 mg PO QHS #90 tabs 11/27/24 ammonium lactate 12 % topical cream 1 applic topical PRN CRACKED HANDS 03/06/25 duloxetine 60 mg capsule,delayed release 60 mg PO QHS depression 03/06/25 tamsulosin 0.4 mg capsule 0.4 mg PO DAILY enlarged prostate 03/06/25 oxycodone 5 mg tablet 5 mg PO Q6H PRN pain 7 days #20 tabs 03/11/25 apixaban 5 mg tablet (Eliquis) 5 mg PO BID Afib 03/18/25 Held on 03/20/25. Instructions: Resume on 04/03/25. Hold your Eliquis for 2 weeks, then resume it at 5 mg twice a day furosemide 40 mg tablet 40 mg PO .qd CHF 03/18/25 magnesium oxide 250 mg PO DAILY supplement 03/18/25 multivitamin 1 tab PO DAILY supplement 03/18/25 ondansetron 4 mg disintegrating tablet 4 mg PO Q8H PRN PRN nausea 03/18/25 pantoprazole 40 mg tablet,delayed release (Protonix) 40 mg PO BID #60 tabs 03/20/25 spironolactone 25 mg tablet 12.5 mg (1/2 x 25 mg) PO DAILY #30 tabs 03/20/25 sucralfate 1 gram tablet 1 g PO TID #90 tabs 03/20/25
== END 2025-03-20 14:55 | disposition home or self-care (01) | DRG 378 ==
LOC: ED 21:29 → PCU 23:09
PROVIDERS: Anesthesiology; Internal Medicine Gastroenterology; Admitting Provider Student in an Organized Health Care Education/Training Program; Emergency Provider Emergency Medicine; PCP Nurse Practitioner; Visit Provider Internal Medicine
PROC: 0DJ08ZZ Inspection of Upper Intestinal Tract, Via Natural or Artificial Opening Endoscopic (ICD-10-PCS; CPT 43235; principal; 2025-03-19 15:55)
DX: K92.1 Melena (principal); D62 Acute posthemorrhagic anemia; D68.32 Hemorrhagic disorder due to extrinsic circulating anticoagulants; I50.32 Chronic diastolic (congestive) heart failure; Z68.42 Body mass index [BMI] 45.0-49.9, adult; N17.9 Acute kidney failure, unspecified; N39.0 Urinary tract infection, site not specified; E11.40 Type 2 diabetes mellitus with diabetic neuropathy, unspecified; M06.9 Rheumatoid arthritis, unspecified; I11.0 Hypertensive heart disease with heart failure; E03.9 Hypothyroidism, unspecified; F32.A Depression, unspecified; K25.9 Gastric ulcer, unspecified as acute or chronic, without hemorrhage or perforation; I48.0 Paroxysmal atrial fibrillation; I95.1 Orthostatic hypotension; J98.6 Disorders of diaphragm; K29.50 Unspecified chronic gastritis without bleeding; E78.5 Hyperlipidemia, unspecified; E66.813 Obesity, class 3; T45.515A Adverse effect of anticoagulants, initial encounter; T39.395A Adverse effect of other nonsteroidal anti-inflammatory drugs [NSAID], initial encounter; G89.29 Other chronic pain; N40.0 Benign prostatic hyperplasia without lower urinary tract symptoms; Z87.19 Personal history of other diseases of the digestive system; Z90.49 Acquired absence of other specified parts of digestive tract; Z79.82 Long term (current) use of aspirin; Z79.01 Long term (current) use of anticoagulants; Z79.899 Other long term (current) drug therapy; Z79.84 Long term (current) use of oral hypoglycemic drugs; Z79.890 Hormone replacement therapy; Z87.442 Personal history of urinary calculi
CPT/HCPCS: 36415; 71046; 80048; 80076; 81001; 82274; 82962; 83880; 85025; 85379; 85610; 85730; 87086; 87088; 88305; 88342; 93005; 97162; 97166; 99285; A4216

== ENCOUNTER → 2025-04-10 | Outpatient (CLI) | payer BC, SELFPAY ==
[2025-04-10 11:22] LABS: Hematocrit 33.1 % (40-54); Hemoglobin 10.3 g/dL (13.0-16.5); Immature Granulocytes Count 0.020 X10^3/uL (0.0-0.0); Mean Corp Hgb Conc 31.1 g/dL (32-36); Mean Corpuscular Volume 95.1 fL (80-94); Mean Platelet Vol. 11.1 fl (6.2-12.0); NRBC Flagged by Analyzer 0 % (0-5); Platelet Count 268 K/mm3 (150-450); RBC Distribution Width CV 13.6 % (11.6-14.6); RBC Distribution Width SD 47.2 fl (35.1-43.9); Red Blood Count 3.48 M/mm3 (4.6-6.2); White Blood Count 6.5 K/mm3 (4.4-11.0)
[2025-04-10 11:56] LABS: Anion Gap 7 (5-15); BUN 15 mg/dL (4-19); BUN/Creat Ratio 11.1 RATIO (10-20); Calcium,Total 9.2 mg/dL (7.6-11.0); Carbon Dioxide 28.8 mmol/L (21.0-32.0); Chloride 104 mmol/L (98-108); Glucose 257 mg/dL (70-99); Potassium 4.7 mmol/L (3.3-5.1)
== END | disposition home or self-care (01) ==
PROVIDERS: PCP Nurse Practitioner; Referring Provider Physician Assistant Medical; Visit Provider Physician Assistant Medical
DX: D64.9 Anemia, unspecified (principal); I48.0 Paroxysmal atrial fibrillation; I10 Essential (primary) hypertension
CPT/HCPCS: 36415; 80048; 85025

== ENCOUNTER → 2025-04-28 | Outpatient (CLI) | payer BC, SELFPAY ==
--- OUTSIDE RECORDS SUMMARY | 2025-04-28 06:14 | XMS RPT_ITS | CCD ---
Author Organization [facility] CliniSyin Care Team Providers Care Film Flat Inspector Name Role Phone Rosie Guerrero Unavailable Unavailable Jenny Live Unavailable Unavailable Rosie Guerrero Unavailable Unavailable Ifeanyi Calero Unavailable Unavailable Unavailable Unavailable Unavailable Jenny Live Primary Care Provider [phone] Jenny Live Unavailable Unavailable Unavailable Calos OVERLOCK COLLAR SETTER.Jenny DOMÍNGUEZ Primary Care Provide r Calos OVERLOCK COLLAR SETTER.Jenny DOMÍNGUEZ Primary Care Provide r Calos OVERLOCK COLLAR SETTER.Jenny DOMÍNGUEZ Primary Care Provide r Jenny Live Primary Care Provider [phone] Calos GILMORE-Jenny Coughlin Primary Care Provider Calos GILMORE-Jenny Coughlin Attending Provider Calos BRUSH WASHER-CJenny Referring Provider JENNY LIVE Primary Care Physician Unavailable Primary Care Provider UnavailDANI Scott Referring Unavailable DANI ROPER Referring Unavailable Calos GILMORE-Jenny Coughlin Primary Care Physician [phone] Calos BRUSH WASHER-CJenny Attending Physician Calos GILMORE-CJenny Referring Provider Rosalie SEAMAN, Dr. Edmundo Manriquez Attending Physician Rosalie SEAMAN, Dr. Edmundo Manriquez Referring Provider [phone] LIVE, JENNY L Primary Care Unavailable MACARIO CRESPO Attending Unavailable LIVE, JENNY L Primary Care Unavailable DENY VIVAR Attending Unavailable LIVE, JENNY L Primary Care Unavailable CECY HUSSEIN Attending Unava ilable LIVE, JENNY L Primary Care Unavailable MACARIO CRESPO Attending Unavailable LIVE, JENNY L Primary Care Unavailable JANETTE MCNAMARA Attending Unavailable LIVE, JENNY Primary Care Unavailable LIVE, JENNY Primary Care Unavailable LIVE, JENNY Primary Care Unavailable LIVE, JENNY Primary Care Unavailable ZARIA SEAMAN, SARAH Consulting Unavailabl e LULA MONTOYA DO Admitting Unavailable LIVE, JENNY Primary Care Unavailable OLIVER SEAMAN, BONY Consulting Unavailabl e Calos BRUSH WASHER-C, Jenny Primary Care Physician Rosalie SEAMAN, Dr. Edmundo Manriquez Attending Physician Rosalie SEAMAN, Dr. Edmundo Manriquez Referring Provider [phone] Bashir DO, Dr. Morales Admitting Physician Shantel vailable Bashir DO, Dr. Morales Nurse Practitioner Unav ailable Mikala SEAMAN, Dr. Arguelles Nurse Practitioner Unavailabl shanda Gruber MD, Dr. Gonzalez Nurse Practitioner Unavailab genoveva Herring MD, Dr. Feliz Nurse Practitioner Unavailab genoveva Corcoran MD, Dr. Adair Nurse Practitioner Zach SEAMAN, Dr. Yi Nurse Practitioner [phone] Jimmy SEAMAN, Dr. Alva Nurse Practitioner Logan SEAMAN, Dr. Valle Nurse Practitioner Unavaila nadia Cedillo MD, Dr. Sanford Nurse Practitioner [phone] Dr. Jame Zuluaga DO Nurse Practitioner Nohemy SEAMAN, Dr. Cox Nurse Practitioner Mar SEAMAN, Dr. Carias Nurse Practitioner Cornelia SEAMAN, Dr. Hayward Nurse Practitioner Minal SEAMAN, Dr. Briones Nurse Practitioner Unavailab genoveva De La Torre MD, Dr. Ramos Nurse Practitioner Deena SEAMAN, Dr. Boswell Nurse Practitioner Jennifer BRUSH WASHER-C, Macario Mckoy Nurse Practitioner Janette Fermin Nurse Practitioner Ernst Moore Nurse Practitioner Antonietta AGEE, Dr. Godinez Attending Physician Bashir DO, Dr. Morales Attending Physician Shantel jorge Cedillo MD, Dr. Sanford Attending Physician Antonietta AGEE, Dr. Godinez Nurse Practitioner Calos BRUSH WASHER-C, Jenny Attending Physician Calos BRUSH WASHER-C, Jenny Referring Provider Dr. Scott Nevarez DO Emergency Department Physi harry He SEAMAN, Dr. Nuzhat Ray Admitting Physician He SEAMAN, Dr. Nuzhat Ray Nurse Practitioner Rylan SEAMAN, Dr. Donnelly Nurse Practitioner Laverne AGEE, Dr. Colon Nurse Practitioner Js BRUSH WASHER-CАнна Nurse Practitioner Kevin BRUSH WASHER-CCarlyn Nurse Practitioner Damari Day Nurse Practitioner Jeb SEAMAN, Dr. Kendall Nichols Nurse Practitioner Dr. Roman Pichardo MD Referring Provider Unavail able Dr. Isaiah Galloway DO Attending Physician Jenny Live Primary Care Unavailable Nuzhat Cutler Admitting Unavailable Herbert Mane Attending Unavailable Andrzej Fagan Consulting Unavailable Isaiah Galloway Consulting Unavailable Анна Weinstein Consulting Unavailable Carlyn Brown Consulting Unavailable Damari Kincaid Consulting Unavailable Nuzhat Cutler Consulting Unavailable Kendall Russ Consulting Unavailable Herbert Mane Consulting Unavailable Live, Jenny Primary Care Unavailable Janette Fermin Attending Unavail able Janette Fermin Referring Unavail able Jame Bashir Admitting Unavailable Amro, Ahmed Consulting Unavailable Live, Jenny Primary Care Unavailable Herbert Mane Attending Unavailable Jacoboi, Coreymad Consulting Unavailable Karim, Adham Consulting Unavailable Mostafa, Mana Consulting Unavailable Zach, Kassidy Consulting Unavailable Marquez, Artie Consulting Unavailable Logan, Leonard Consulting Unavailable Nguyen, Juvenal Consulting Unavailable Jame Zuluaga Consulting Unavailable Belal, Farouk Consulting Unavailable Bony Manuel Consulting Unavailable Nagajothi, Nagapradee Consulting Unavailabl e Azouz, Samer Consulting Unavailable Satti, Richard Consulting Unavailable Victoria, Elbert Consulting Unavailable Jennifer BRUSH WASHER, Macario Mckoy Consulting Unavailable Janette Fermin Consulting Unavail able Ernst Parker Consulting Unavailable Jame Bashir Consulting Unavailable Andrzej Fagan Consulting Unavailable Live, Jenny Primary Care Unavailable Koram, Nuzhat Flor Admitting Unavailable Herbert Mane Attending Unavailable Isaiah Galloway Consulting Unavailable Анна Weinstein Consulting Unavailable Carlyn Brown Consulting Unavailable Damari Kincaid Consulting Unavailable Koram, Nuzhat Flor Consulting Unavailable Kendall Russ Consulting Unavailable Live, Jenny Primary Care Unavailable Edmundo Wiggins Referring Unavailable Edmundo Wiggins Attending Unavailable Amro, Ahmed Consulting Unavailable Live, Jenny Primary Care Unavailable Jame Bashir Admitting Unavailable Herbert Mane Attending Unavailable Yasmani, Ahmaedel Consulting Unavailable Karim, Adham Consulting Unavailable Mostafa, Mana Consulting Unavailable Zach, Kassidy Consulting Unavailable Marquez, Artie Consulting Unavailable Logan, Leonard Consulting Unavailable Nguyen, Juvenal Consulting Unavailable Jame Zuluaga Consulting Unavailable Belal, Farouk Consulting Unavailable Bony Manuel Consulting Unavailable Nagajothi, Nagapradee Consulting Unavailabl e Azouz, Samer Consulting Unavailable Satti, Richard Consulting Unavailable Victoria, Elbert Consulting Unavailable Jennifer BRUSH WASHER, Macario Mckoy Consulting Unavailable Janette Fermin Consulting Unavail able Ernst Parker Consulting Unavailable Jame Bashir Consulting Unavailable Herbert Mane Consulting Unavailable Jame Bashir Attending Unavailable Live, Jenny Referring Unavailable Live, Jenny Primary Care Unavailable Janette Fermin Attending Unavail Juvenal Ellis Attending Unavailable Nuzhat Cutler Attending Unavailable Isaiah Galloway Attending Unavailable Herbert Mane Referring Unavailable Live, Jenny Primary Care Unavailable Live, Jenny Attending Unavailable Live, Jenny Referring Unavailable Live, Jenny Primary Care Unavailable Live, Jenny Attending Unavailable Live, Jenny Referring Unavailable Allergies Allergy Classification Reported Allergen(s) Allergy Type Date of Onset Reaction(s) Facility pregabalin (3 sources) pregabalin; Translations: [Lyrica CAPS] Drug Allergy [facility] Work Phone: (9 sources) pregabalin; Translations: [Lyrica CAPS] Drug Allergy 03-06-2021 Unknown [facility] Work Phone: (2 sources) pregabalin; Translations: [PREGABALIN] Drug Allergy 03-06-2021 [facility] Other [place] [facility] Medications Current Medications Medication Drug Class(es) Dates Sig (Normalized) Sig (Original) acetaminophen 325 mg / oxyCODONE hydrochloride 5 mg oral tablet (11 sources) Opioid Agonist Start: 02-16-2025 End: 02-19-2025 take 1 tablet by mouth every six hours as needed for pain Percocet 5 mg-325 mg oral tablet 1 tabs, ORAL, [id number], PRN PRN as needed for pain, X 3 days, # 12 tabs, Refill(s) 0, Date: 02/16/25 3:46:00 PM EDT Start Date: 02/16/25 Stop Date: 02/19/25 Status: Ordered Quantity: 12.0 Unit: tabs Repeat number: 1 Start: 05-29-2014 End: 03-02-2018 Start: 05-29-2014 End: 03-02-2018 Oxycodone-Acetaminophen 1 TA [...] 29, 2014 12:00am March 02, 2018 12:15pm Calcium (7 sources) Phosphate Binder, Calcium Start: 03-02-2018 calc ium Active PO March 02, 2018 2:22pm Start: 03-02-2018 End: 03-06-2025 calcium Discontinued PO 0 Se pt2017 12:00am March 06, 2025 2:00pm Start: 03-02-2018 calcium Active PO March 01, 2018 11:00pm Start: 03-02-2018 calcium Active PO March 02, 2018 12:00am ammonium lactate 120 mg/ml topical cream (20 sources) Start: 03-06-2025 Ammonium Lacta te 12 % cream Active 1 NMA TOPICAL NEEDED March 06, 2025 12:00am CRACKED HANDS Complies with drug therapy Start: 08-18-2020 Ammonium Lacta te 12 % External Cream APPLY 1 APPLICATION TOPICALLY TO AFFECTED AREA DAILY Quantity: 140 Refills: 0 Ordered: 18-Aug-2020 DO Start : 18-Aug-2020 Active Start: 03-02-2018 End: 03-06-2025 Start: 03-02-2018 End: 05-25-2022 Ammonium Lactate 12 % cream Discontinued 1 NMA TOPICAL DAILY 140 August 18, 2020 3:35pm May 25, 2022 6:39pm Start: 03-02-2018 End: 08-18-2020 Ammonium Lactate 12 % cream Discontinued 1 NMA TOPICAL DAILY 140 April 23, 2018 6:22pm August 18, 2020 3:36pm levothyroxine sodium 0.075 mg oral tablet (14 sources) l-Thyroxine Start: 11-03-2024 Synthroid 75 m cg (0.075 mg) oral tablet 75 mcg 1 tabs, ORAL, DAILY, 90 tabs, Date: 02/16/25 2:04:00 PM EDT, Tablet Start Date: 02/16/25 Status: Ordered Medication Dispense Status: Completed Quantity: 90.0 Unit: tabs Total Allowed Fills: 1 Fills Dispensed: 0 Start: 11-03-2024 take 1 tablet by rocael th once daily Levothyroxine (Euthyrox) 75 mcg tablet Active 75 ug PO daily 90 November 03, 2024 12:00am Complies with drug therapy Start: 08-26-2024 End: 03-06-2025 magnesium gluconate 250 mg oral tablet (4 sources) Start: 02-16-2025 take 1 tablet by mouth once daily magnesium gluconate 250 mg oral tablet 1 tabs, ORAL, DAILY, # 30 tabs, Refill(s) 0, Date: 02/16/25 2:02:00 PM EDT Start Date: 02/16/25 Status: Ordered Medication Dispense Status: Completed Quantity: 30.0 Unit: tabs Total Allowed Fills: 1 Fills Dispensed: 0 magnesium oxide 250 mg oral tablet (13 sources) Start: 03-18-2025 Start: 03-02-2018 End: 03-18-2025 Multivitamin preparation (4 sources) Start: 02-16-2025 take 1 tablet by mouth once daily multivitamin 1 tabs, ORAL, DAILY, # 100 tabs, Refill(s) 0, Date: 02/16/25 2:02:00 PM EDT Start Date: 02/16/25 Status: Ordered Medication Dispense Status: Completed Quantity: 100.0 Unit: tabs Total Allowed Fills: 1 Fills Dispensed: 0 Start: 02-16-2025 take 1 tablet by rocael th once daily multivitamin 1 tabs, ORAL, DAILY, # 100 tabs, Refill(s) 0, Date: 02/16/25 2:02:00 PM EDT Start Date: 02/16/25 Status: Ordered Quantity: 100.0 Unit: tabs Repeat number: 1 mupirocin 0.02 mg/mg topical ointment (2 sources) RNA Synthetase Inhibitor Antibacterial Start: 10-03-2021 End: 10-08-2021 mupirocin (BACTROBAN) 2 % ointment Apply to affected area three times daily for 5 days. 15 g 0 10/03/2021 10/08/2021 Active Comment on above: Apply to affected ar ea three times daily for 5 days. ondansetron 4 mg disintegrating oral tablet (4 sources) Serotonin-3 Receptor Antagonist Start: 03-18-2025 Start: 02-16-2025 End: 02-19-2025 ondansetron 4 mg oral tablet , disintegrating = Zofran 4 mg 1 tabs, ORAL, [id number], PRN, allow tablet to dissolve on tongue, 3 days, 9 tabs, Date: 02/16/25 3:46:00 PM EDT Start Date: 02/16/25 Stop Date: 02/19/25 Status: Ordered Quantity: 9.0 Unit: tabs Repeat number: 1 oxyCODONE hydrochloride 5 mg oral tablet (4 sources) Opioid Agonist Start: 03-11-2025 pantoprazole 40 mg delayed r elease oral tablet (3 sources) Proton Pump Inhibitor Start: 03-20-2025 Start: 03-20-2025 Start: 03-20-2025 Potassium (7 sources) Start: 03-02-2018 potassium Acti ve PO March 02, 2018 2:22pm Start: 03-02-2018 End: 03-06-2025 potassium Discontinued PO 0 March 02, 2018 12:00am March 06, 2025 1:55pm Start: 03-02-2018 potassium Acti ve PO March 01, 2018 11:00pm Start: 03-02-2018 potassium Acti ve PO March 02, 2018 12:00am prodigy (7 sources) Start: 03-02-2018 prodigy Active 1 March 02, 2018 2:19pm As directed Start: 03-02-2018 prodigy Active 1 March 02, 2018 12:00am Type 2 diabetes mellitus without complications As directed Start: 03-02-2018 prodigy Active March 01, 2018 11:00pm As directed Start: 03-02-2018 prodigy Active March 02, 2018 12:00am As directed spironolactone 25 mg oral ta blet (6 sources) Aldosterone Antagonist Start: 03-20-2025 Start: 03-20-2025 Start: 03-20-2025 Start: 03-17-2025 End: 03-20-2025 sucralfate 1000 mg oral tabl et (3 sources) Aluminum Complex Start: 03-20-2025 Start: 03-20-2025 Start: 03-20-2025 tamsulosin hydrochloride 0.4 mg oral capsule (7 sources) alpha-Adrenergic Jared Start: 02-16-2025 End: 03-18-2025 Vitamin A (4 sources) Vitamin A Start: 02-16-2025 vitamin A 2,40 0 mcg, ORAL, DAILY, Date: 02/16/25 2:03:00 PM EDT Start Date: 02/16/25 Status: Ordered Medication Dispense Status: Completed Total Allowed Fills: 1 Fills Dispensed: 0 Start: 02-16-2025 vitamin A 2,40 0 mcg, ORAL, DAILY, Date: 02/16/25 2:03:00 PM EDT Start Date: 02/16/25 Status: Ordered Repeat number: 1 (20 sources) Start: 03-18-2025 Start: 11-24-2022 End: 07-27-2023 Start: 08-19-2020 End: 04-22-2021 Start: 08-29-2019 End: 03-16-2020 Start: 03-02-2018 Start: 03-02-2018 End: 05-30-2018 Start: 03-02-2018 End: 03-06-2025 Start: 03-02-2018 End: 03-06-2025 Completed/Discontinued Medications Medication Drug Class(es) Dates Sig (Normalized) Sig (Original) acetaminophen 500 mg oral tablet (6 sources) Start: 02-11-2021 take 2 tablets by mouth every eight hours as needed acetaminophen (TYLENOL EXTRA STRENGTH) 500 mg tablet Take 2 tablets by mouth every 8 hours as needed for pain. 50 tablet 0 02/11/2021 Active Comment on above: Take 2 tablets by mo [facility] every 8 hours as needed for pain. [id number] actuat albuterol 0.09 mg/actuat metered dose inhaler (20 sources) beta2-Adrenergic Agonist Start: 08-10-2022 End: 08-22-2024 Start: 08-10-2022 End: 08-22-2024 Albuterol Sulfate (Ventolin [...] : 30-Jul-2020 Active Start: 07-30-2020 End: 04-22-2021 Start: 07-30-2020 End: 04-22-2021 Albuterol Sulfate (Ventolin [...] Dihydropyridine Calcium Channel Jared Start: 06-21-2015 End: 03-18-2025 Comment on above: Take 5 mg by mouth o nce daily. amoxicillin 875 mg / clavulanate 125 mg oral tablet (20 sources) Penicillin-class Antibacterial Start: 02-12-2024 End: 11-27-2024 Start: 02-12-2024 End: 11-27-2024 Amoxicillin-Pot Clavulanate 875-125 mg tablet Discontinued 1 {tbl} PO TWICE A DAY September 24, 2024 2:56pm November 27, 2024 4:05pm Start: 01-20-2021 End: 04-22-2021 Start: 01-20-2021 End: 04-22-2021 Amoxicillin-Pot Clavulanate 875-125 mg tablet Discontinued 1 {tbl} PO TWICE A DAY January 20, 2021 12:00am April 22, 2021 9:26pm Start: 01-20-2021 End: 04-22-2021 take 1 tablet by mouth twice daily Amoxicillin-Pot Clavulanate Discontinued 1 TABLET PO TWICE A DAY January 19, 2021 11:00pm April 22, 2021 8:26pm Start: 06-16-2020 End: 07-30-2020 Start: 06-16-2020 End: 07-30-2020 Amoxicillin-Pot Clavulanate 875-125 mg tablet Discontinued 1 {tbl} PO TWICE A DAY June 16, 2020 1:00am July 30, 2020 7:02pm Start: 06-16-2020 End: 07-30-2020 take 1 tablet by mouth twice daily Amoxicillin-Pot Clavulanate Discontinued 1 TABLET PO TWICE A DAY June 16, 2020 12:00am July 30, 2020 6:02pm apixaban 5 mg oral tablet (10 sources) Factor Xa Inhibitor Start: 02-22-2025 End: 03-18-2025 aspirin 81 mg delayed releas e oral tablet (20 sources) Platelet Aggregation Inhibitor, Nonsteroidal Anti-inflammatory Drug Start: 10-12-2017 End: 03-18-2025 Start: 10-12-2017 Aspirin 81 MG Oral Tablet Delayed Release Quantity: 0 Refills: 0 Ordered: 12-Oct-2017 DO Start : 12-Oct-2017 Active take 1 tablet by rocael th once daily ASPIRIN (ASPIR-81 ORAL) Take 1 tablet by mouth once daily. 0 Active Comment on above: Take 1 tablet by rocael th once daily. atorvastatin 40 mg oral tabl et (20 sources) HMG-CoA Reductase Inhibitor Start: 08-03-2023 End: 11-27-2024 azithromycin 250 mg oral tab let (20 sources) Macrolide Antimicrobial Start: 08-18-2020 End: 08-23-2020 Start: 07-30-2020 End: 08-04-2020 12 hr buPROPion hydrochlorid e 100 mg extended release oral tablet (20 sources) Aminoketone Start: 03-02-2018 End: 08-22-2024 Start: 03-02-2017 buPROPion HCl ER (SR) 100 [...] 03-16-2020 Calcium Alginate Discontinued 0 .ROUTE .MEDSUPPLY 1 August 29, 2019 3:58pm March 16, 2020 [...] the wound Calcium Alginate 4 X 4 " bandage (3 sources) Start: 08-29-2019 End: 03-16-2020 Calcium Alginate 4 X 4 " ban dage Discontinued 0 .ROUTE .MEDSUPPLY 1 August 29, 2019 12:00am March 16, 2020 3:54pm tear and place in the base of the wound Start: 08-29-2019 End: 03-16-2020 Calcium Alginate 4 X 4 " ban dage Discontinued 0 .ROUTE .MEDSUPPLY August 29, 2019 12:00am March 16, 2020 3:54pm tear and place in the base of the wound cefuroxime 500 mg oral table t (20 sources) Cephalosporin Antibacterial Start: 08-18-2022 End: 09-06-2022 Start: 04-14-2020 End: 04-24-2020 Start: 04-14-2020 End: 04-24-2020 take 1 tablet by mouth every twelve hours Cefuroxime Axetil 500 mg tablet Discontinued 500 mg PO Q12H 20 10 April 14, 2020 4:08pm April 23, 2020 1:00am April 24, 2020 1:03am Start: 08-30-2018 End: 09-09-2018 Start: 08-30-2018 End: 09-09-2018 take 1 tablet by mouth every twelve hours Cefuroxime Axetil 500 mg tablet Discontinued 500 mg PO Q12H 20 10 August 30, 2018 12:00am September 08, 2018 12:00am September 09, 2018 12:08am Start: 04-02-2018 End: 04-12-2018 Start: 04-02-2018 End: 04-12-2018 take 1 tablet by mouth every twelve hours Cefuroxime Axetil 500 mg tablet Discontinued 500 mg PO Q12H 20 10 0 April 02, 2018 12:00am April 11, 2018 1:00am April 12, 2018 1:12am celecoxib 200 mg oral capsule (20 sources) Nonsteroidal Anti-inflammatory Drug Start: 06-28-2021 End: 03-20-2025 Start: 06-28-2021 End: 07-27-2023 take 1 capsule by mouth once daily Celecoxib 200 mg capsule Discontinued 200 mg PO DAILY 30 November 24, 2022 3:44pm July 27, 2023 7:38pm Start: 12-24-2020 take 1 capsule by mo [facility] once daily Celecoxib 200 MG Oral Capsule TAKE 1 CAPSULE Daily Quantity: 30 Refills: 5 Ordered: 24-Dec-2020 Rosie Guerrero MD Start : 24-Dec-2020 Active Comment on above: Take 200 mg by mouth once daily. cephalexin 500 mg oral capsu le (6 sources) Cephalosporin Antibacterial Start: 03-11-2025 End: 03-18-2025 Start: 10-03-2021 End: 10-08-2021 take 1 capsule by mouth four times daily cephALEXin (KEFLEX) 500 mg capsule Take 1 capsule by mouth four times daily for 5 days. 20 capsule 0 10/03/2021 10/08/2021 Active Comment on above: Take 1 capsule by mo [facility] four times daily for 5 days. cholecalciferol 0.125 mg ora l capsule (6 [...] Take 1,000 Units by mouth once daily. ciprofloxacin 500 mg oral tablet (5 sources) Quinolone Antimicrobial Start: End: Start: 02-16-2025 End: 02-23-2025 ciprofloxacin 500 mg oral ta blet 500 mg 1 tabs, ORAL, [id number], 7 days, 14 tabs, Date: 02/16/25 3:47:00 PM EDT, Tablet Start Date: 02/16/25 Stop Date: 02/23/25 Status: Ordered Quantity: 14.0 Unit: tabs Repeat number: 1 clarithromycin 500 mg oral t ablet (18 sources) Macrolide Antimicrobial Start: 09-06-2022 End: 11-24-2022 Start: 04-23-2018 End: 05-30-2018 clobetasol propionate 0.5 mg/ml topical cream (2 sources) Corticosteroid Start: 07-22-2016 Clobetasol Propionate 0.05 % External Cream Quantity: 30 Refills: 0 Start : 22-Jul-2016 Active diclofenac sodium 0.01 mg/mg topical gel (4 sources) Nonsteroidal Anti-inflammatory Drug Start: 05-20-2019 Diclofenac Sodium 1 % GEL Quantity: 100 Refills: 0 Ordered: 20-May-2019 DO Start : 20-May-2019 Active doxycycline hyclate 100 mg oral capsule (11 sources) Tetracycline-class Drug Start: 10-23-2024 End: 11-27-2024 Start: 08-31-2023 End: 09-24-2023 Dulaglutide (20 sources) GLP-1 Receptor Agonist Start: 08-18-2022 End: 11-24-2022 Start: 08-18-2022 End: 11-24-2022 Dulaglutide 3 mg/0.5 [...] WEEK 2 August 18, 2022 12:00am Start: 11-10-2020 End: 08-18-2022 Start: 11-10-2020 End: 08-18-2022 Dulaglutide (Trulicity) 1.5 mg/0.5 mL pen injector [...] Active Comment on above: Inject 3 mg subcutaneously one time a we ek. DULoxetine 60 mg delayed release oral capsule (20 sources) Serotonin and Norepinephrine Reuptake Inhibitor Start: 12-03-2020 End: 03-06-2025 Start: 01-10-2019 End: 12-03-2020 Start: 01-10-2019 End: 07-22-2020 take 1 capsule by mouth once daily Duloxetine 30 mg capsule,delayed release(DR/EC) Discontinued 30 mg PO DAILY 01 12March 16, 2020 4:02pm July 22, 2020 1:27pm Start: 01-03-2019 End: 12-03-2020 take 2 capsules by mouth once daily Duloxetine 30 mg capsule,delayed release(DR/EC) Discontinued 60 mg PO DAILY 01 12July 22, 2020 1:26pm December 03, 2020 6:55pm take 3 capsules by m outh once daily at bedtime DULoxetine (CYMBALTA) 20 mg capsule Take 60 mg by mouth daily at bedtime. 0 Active Comment on above: Take 60 mg by mouth daily at bedtime. empagliflozin 25 mg oral tab let (20 sources) Sodium-Glucose Cotransporter 2 Inhibitor Start: 08-14-2019 End: 06-22-2020 24 hr empagliflozin 25 mg / metFORMIN hydrochloride 1000 mg extended release oral tablet (20 sources) Biguanide, Sodium-Glucose Cotransporter 2 Inhibitor Start: 05-03-2021 End: 06-26-2022 Start: 05-03-2021 End: 06-26-2022 Empagliflozin-Metformin (Syn jardy Xr) 25-1,000 mg tablet, IR - ER, biphasic 24hr Discontinued 1 {tbl} PO DAILY 30 May 25, 2022 6:37pm June 26, 2022 8:31pm [...] : 09-Jul-2020 Active Start: 07-09-2020 End: 04-22-2021 Start: 07-09-2020 End: 04-22-2021 Empagliflozin-Metformin (Syn jardy Xr) 25-1,000 mg tablet, IR - ER, biphasic 24hr Discontinued 1 {tbl} PO DAILY 30 July 09, 2020 1:00am April 22, 2021 9:27pm Comment on above: Take 1 tablet by rocael th twice daily with meals. erythromycin 0.005 mg/mg ophthalmic ointment (10 sources) Macrolide, Macrolide Antimicrobial Start: 08-16-2018 End: 01-10-2019 Start: 08-16-2018 End: 01-10-2019 Erythromycin 5 mg/gram [...] Active Flucelvax Quad (PF) (flu vac qs 2018(4 yr up)CD(PF)) 60 mcg (15 mcg x (1 source) Start: 03-02-2018 End: 03-02-2018 inject 15 ug by intramuscular injection once Flucelvax Quad (PF) (flu vac qs 2017(4 yr up)CD(PF)) 60 mcg (15 mcg x Discontinued 0.5 ML IM ONCE 0.5 March 02, 2018 1:00pm March 02, 2018 2:39pm fluconazole 100 mg oral tablet (20 sources) Azole Antifungal Start: 12-03-2020 End: 04-22-2021 Start: 11-21-2019 End: 06-16-2020 Start: 09-12-2019 End: 03-16-2020 fluorouracil 50 mg/ml topical cream (10 sources) Nucleoside Metabolic Inhibitor Start: 01-10-2019 End: 12-03-2020 fluticasone propionate 0.5 mg/ml topical cream (20 sources) Corticosteroid Start: 12-03-2020 Fluticasone Propionate 0.05 % External Cream Quantity: 60 Refills: 0 Ordered: 03-Dec-2020 DO Start : 03-Dec-2020 Active Start: 03-02-2018 End: 11-05-2020 Start: 03-02-2018 End: 01-10-2019 Start: 03-02-2018 End: 01-10-2019 Fluticasone Propionate 50 mc g/actuation spray,suspension Discontinued 2 NMA INTRANASAL DAILY March 02, 2018 12:00am January 10, 2019 7:24pm Start: 03-02-2018 End: 01-10-2019 Fluticasone Propionate Disco ntinued 2 SPRAY INTRANASAL DAILY March 01, 2018 11:00pm January 10, 2019 6:24pm Start: 11-13-2015 Fluticasone Pr opionate 0.05 % External Lotion Quantity: 120 Refills: 0 Start : 13-Nov-2015 Active furosemide 40 mg oral tablet (10 sources) Loop Diuretic Start: 02-22-2025 End: 03-18-2025 gabapentin 400 mg oral capsu le (20 sources) Anti-epileptic Agent Start: 01-10-2019 End: 08-22-2024 Start: 03-02-2018 End: 01-10-2019 Start: 10-12-2017 End: 08-22-2024 Neurontin 400 mg oral capsul e 400 mg 1 caps, ORAL, TID, 15 caps, Date: 02/16/25 2:03:00 PM EDT, Capsule Start Date: 02/16/25 Status: Ordered Medication Dispense Status: Completed Quantity: 15.0 Unit: caps Total Allowed Fills: 1 Fills Dispensed: 0 Comment on above: Take 1 capsule by [facility] three times daily for 30 days. Take by mouth. glimepiride 4 mg oral tablet (20 sources) Sulfonylurea Start: 10-13-19 End: 08-23-19 Comment on above: Take 4 mg by mouth d aily with breakfast. imiquimod 50 mg/ml topical cream (11 sources) Start: 07-27-19 End: 03-06-20 indomethacin 50 mg oral capsule (1 source) Nonsteroidal Anti-inflammatory Drug Start: 06-25-19 take 1 capsule by mouth twice daily Indomethacin 50 MG Oral Capsule TAKE 1 CAPSULE TWICE DAILY. Quantity: 60 Refills: 5 Ordered: 25-Jun-2020 Rosie Guerrero MD Start : 25-Jun-2020 Active Insulin Nph And Regular Human (10 sources) Insulin Start: 08-20-19 End: 08-20-19 Insulin Nph And Regular Human Discontinued 15 UNIT SC TWICE A DAY 03 03August 19, 2020 11:33am August 19, 2020 11:50am Start: 08-19-2020 End: 08-19-2020 Start: 08-19-2020 End: 08-19-2020 Insulin Nph And [...] injectable suspension (20 sources) Insulin Analog Start: 08-27-2020 End: 04-22-2021 Insulin Lispro Protamin-Lispro (Humalog Mix 75-25(U-100)Insuln) 100 unit/mL (75-25) suspension Discontinued 15 U SC TWICE A DAY December 03, 2020 6:45pm April 22, 2021 9:27pm 7 U in the AM and 10 U in the PM Start: 08-19-2020 End: 04-22-2021 Start: 08-19-2020 End: 08-27-2020 Insulin Lispro Protamin-Lisp ro (Humalog Mix 75-25(U-100)Insuln) 100 unit/mL (75-25) suspension Discontinued 15 U SC TWICE A DAY 03 15August 19, 2020 12:00am August 27, 2020 8:44pm ketorolac tromethamine 10 mg oral tablet (5 sources) Nonsteroidal Anti-inflammatory Drug, Cyclooxygenase Inhibitor Start: 03-06-2025 End: 03-20-2025 Start: 02-16-2025 End: 02-21-2025 ketorolac 10 mg oral tablet 10 mg 1 tabs, ORAL, QID, PRN, 5 days, 20 tabs, Date: 02/16/25 3:46:00 PM EDT, Tablet Start Date: 02/16/25 Stop Date: 02/21/25 Status: Ordered Quantity: 20.0 Unit: tabs Repeat number: 1 levoFLOXacin 500 mg oral tablet (10 sources) Quinolone Antimicrobial Start: 08-29-2019 End: 09-16-2019 linagliptin 5 mg oral tablet (8 sources) Dipeptidyl Peptidase 4 Inhibitor Start: 06-26-2022 End: 07-03-2022 Magnesium (10 sources) Start: 10-12-2017 take 1 tablet by mouth once daily Magnesium 250 MG Oral Tablet TAKE 1 TABLET DAILY. Quantity: 0 Refills: 0 Ordered: 12-Oct-2017 DO Start : 12-Oct-2017 Active Start: 10-12-2017 take 1 tablet by rocael th once daily Magnesium 250 MG Oral Tablet TAKE 1 TABLET DAILY. Refills: 0 Start : 12-Oct-2017 Active take 2 tablets by mo [facility] once daily Magnesium 250 mg tab Take 500 mg by mouth once daily. 0 Active Comment on above: Take 500 mg by mouth once daily. meclizine hydrochloride 12.5 mg oral tablet (20 sources) Antiemetic Start: take 1 tablet by mouth three times daily meclizine (ANTIVERT) 25 mg tab Take 1 tablet by mouth three times daily. 30 tablet 0 10/03/2021 Active Start: 08-19-2020 End: 03-18-2025 Start: 06-07-2018 take 1 tablet by rocael th twice daily as needed Meclizine HCl - 12.5 MG Oral Tablet TAKE 1 TABLET Twice daily PRN Quantity: 0 Refills: 0 Ordered: 07-Jun-2018 DO Start : 07-Jun-2018 Active Start: 05-30-2018 End: 03-16-2020 Start: 05-30-2018 End: 03-16-2020 Meclizine 12.5 mg tablet Discontinued 12.5 mg PO 2 to 3 times per day as needed for dizziness 60 3 May 30, 2018 1:00am March 16, 2020 3:56pm Comment on above: Take 1 tablet by rocael three times daily. metFORMIN hydrochloride 850 mg oral tablet (20 sources) Biguanide Start: 06-26-2022 End: 08-22-2024 Start: 03-02-2018 End: 12-03-2020 Start: 10-12-2017 take 1 tablet by rocael th once daily metFORMIN HCl - 1000 MG Oral Tablet TAKE 1 TABLET EVERY 12 HOURS DAILY. Quantity: 0 Refills: 0 Ordered: 12-Oct-2017 DO Start : 12-Oct-2017 Active metoprolol tartrate 37.5 mg oral tablet (20 sources) beta-Adrenergic Jared Start: 06-27-2019 End: 08-22-2024 Start: 06-27-2019 End: 03-16-2020 take 1 tablet by mouth once daily metoprolol tartrate 37.5 mg tab Take 1 tablet by mouth once daily. 0 07/28/2019 Active Comment on above: Take 1 tablet by rocael th once daily. metroNIDAZOLE 250 mg oral tablet (20 sources) Nitroimidazole Antimicrobial Start: 03-08-2021 End: 03-18-2021 Start: 07-02-2019 End: 03-16-2020 miconazole nitrate 20 mg/ml topical cream (10 sources) Azole Antifungal Start: 03-02-2018 End: 03-06-2025 mirtazapine 15 mg oral table t (20 sources) Start: 03-02-2018 End: 08-22-2024 Start: 03-02-2018 End: 11-24-2022 take 7.5 mg [...] Rosie Guerrero MD Start : 12-Oct-2017 Active phenazopyridine hydrochloride 100 mg oral tablet (4 sources) Start: 03-11-2025 End: 03-18-2025 pioglitazone 45 mg oral tablet (20 sources) Peroxisome Proliferator Receptor alpha Agonist, Peroxisome Proliferator Receptor gamma Agonist, Thiazolidinedione Start: 08-18-2022 End: 08-22-2024 Start: 07-03-2022 End: 08-18-2022 Start: 06-22-2020 End: 08-27-2020 predniSONE 20 mg oral tablet (20 sources) Start: 10-23-2024 End: 03-06-2025 Start: 08-31-2023 End: 09-24-2023 Start: 09-06-2022 End: 09-16-2022 Start: 09-06-2022 End: 09-16-2022 take 40 mg by mouth once daily Prednisone Discontinued 40 MG PO DAILY 23 03September 06, 2022 2:37pm September 15, 2022 11:13pm Start: 08-18-2020 End: 08-27-2020 Start: 08-18-2020 End: 08-27-2020 take 1 tablet by mouth once daily Prednisone 20 mg tablet Discontinued 20 mg PO DAILY August 18, 2020 12:00am August 27, 2020 8:42pm Start: 07-30-2020 End: 08-09-2020 Start: 07-30-2020 End: 08-09-2020 take 40 mg by mouth once daily Prednisone Discontinued 40 MG PO DAILY 23 03July 30, 2020 12:00am August 09, 2020 12:02am rimegepant 75 mg disintegrat ing oral tablet (8 sources) Start: 11-27-2024 End: 03-18-2025 Start: 11-27-2024 take 1 tablet by rocael once as needed for headache Rimegepant (Nurte Odt) 75 mg tablet,disintegrating Active 75 mg PO ONCE as needed for migraine headache 7 November 28, 2024 12:00am as a single dose Complies with drug therapy 1 mg dose 1.5 ml semaglutide 1.34 [...] mg / trimethoprim 160 mg oral tablet (20 sources) Dihydrofolate Reductase Inhibitor Antibacterial, Sulfonamide Antimicrobial Start: 07-28-2021 End: 11-07-2021 Start: 07-28-2021 End: 11-07-2021 Sulfamethoxazole-Trimethopri m 800-160 mg tablet Discontinued 1 {tbl} PO TWICE A DAY 28 July 28, 2021 1:00am November 07, 2021 6:24pm Start: 07-28-2021 End: 11-07-2021 take 1 tablet by mouth twice daily Sulfamethoxazole-Trimethoprim Discontinu ed 1 TABLET PO TWICE A DAY July 28, 2021 12:00am November 07, 2021 5:24pm Start: 06-27-2019 End: 07-04-2019 Start: 06-27-2019 End: 07-04-2019 Sulfamethoxazole-Trimethopri m 800-160 mg tablet Discontinued 1 {tbl} PO TWICE A DAY 14 7 0 June 27, 2019 1:00am July 03, 2019 1:00am July 04, 2019 1:08am insect bite infected Start: 06-27-2019 End: 07-04-2019 take 1 tablet by mouth twice daily Sulfamethoxazole-Trimethoprim Discontinu ed 1 TABLET PO TWICE A DAY 14 7 June 27, 2019 12:00am July 04, 2019 12:08am SUMAtriptan 50 mg oral table t (20 sources) Serotonin-1b and Serotonin-1d Receptor Agonist Start: 09-20-2020 End: 09-20-2020 Start: 09-20-2020 End: 09-20-2020 take 1 tablet by mouth once Sumatriptan Succinate 100 mg tablet Discontinued 100 mg PO ONCE 10 September 20, 2020 12:00am September 20, 2020 6:39pm Start: 05-30-2018 End: 03-18-2025 Start: 05-30-2018 End: 08-22-2024 take 1 tablet [...] oral tablet (20 sources) Opioid Agonist Start: 03-02-2018 End: 08-22-2024 Start: 03-02-2018 End: 08-22-2024 Start: 03-02-2018 End: 11-07-2021 Start: 11-25-2012 take 1 tablet by rocael [...] 9:03pm warfarin sodium 5 mg oral tablet (20 sources) Vitamin K Antagonist Start: 2020 Warfarin Sodium 5 MG Oral Tablet Quantity: 30 Refills: 0 Ordered: 19-Aug-2020 DO Start : 19-Aug-2020 Active Start: 08-19-2020 End: 09-21-2020 Zinc (7 sources) Start: 03-02-2018 End: 05-30-2018 zinc Discontinued PO Septemb er 2017 2:21pm May 30, 2018 5:03pm Start: 03-02-2018 End: 05-30-2018 zinc Discontinued PO 0 Septe mber 2017 12:00am May 30, 2018 5:03pm Start: 03-02-2018 End: 05-30-2018 zinc Discontinued PO Septemb er 2017 11:00pm May 30, 2018 4:03pm Start: 03-02-2018 End: 05-30-2018 zinc Discontinued PO Septemb er 2017 12:00am May 30, 2018 5:03pm Problems Active Problems Problem Classification Problem Date Documented Da te Episodic/Chronic Abdominal pain (3 sources) Right flank pain; Translations: [Unspecified abdominal pain] Onset: 5 Episodic Calculus of urinary tract (11 sources) Kidney stone; Translations: [Calculus of kidney] Onset: 5 02-16-2025 Episodic Cardiac dysrhythmias (13 sources) Atrial arrhythmia; Translations: [Atrial fibrillation] Onset: 5 02-27-2025 Chronic Chronic obstructive pulmonary disease and bronchiectasis (13 sources) Bronchitis; Translations: [Bronchitis, not specified as acute or chronic] 07-30-2020 Episodic Complications of surgical procedures or medical care (10 sources) Non-healing surgical wound; Translations: [Other complications of procedures, not elsewhere classified, initial encounter] 03-29-2021 Episodic Congestive heart failure; nonhypertensive (11 sources) Heart failure with normal ejection fraction; Translations: [Heart failure, unspecified] Onset: 5 02-27-2025 Chronic Deficiency and other anemia (1 source) Anemia, unspecified; Translations: [Anemia, unspecified] Onset: 5 Episodic Diabetes mellitus with complications (20 sources) Neuropathy due to diabetes mellitus; Translations: [Type 2 diabetes mellitus with diabetic neuropathy, unspecified] Onset: 1 03-06-2021 Chronic Diabetes mellitus without complication (16 sources) Diabetes mellitus; Translations: [Diabetes mellitus without mention of complication, type II or unspecified type, not stated as uncontrolled] Onset: 9 05-30-2021 Chronic Diseases of white blood cells (8 sources) Leukocytosis; Translations: [Elevated white blood cell count, unspecified] 10-23-2024 Chronic Disorders of lipid metabolism (18 sources) Hyperlipidemia; Translations: [Hyperlipidemia, unspecified] Onset: 1 03-06-2021 Chronic Diverticulosis and diverticulitis (15 sources) Diverticulitis; Translations: [Diverticulitis of colon (without mention of hemorrhage)] 08-11-2019 Chronic Essential hypertension (20 sources) Hypertensive disorder; Translations: [Essential (primary) hypertension] Onset: 4 03-06-2021 Chronic Comment on above: continue medication Outside Source Comme nt: Comment on above: continue medication Fever of unknown origin (9 sources) Fever; Translations: [Fever, unspecified] 08-31-2023 Episodic Gastrointestinal hemorrhage (7 sources) Acute upper gastrointestinal hemorrhage; Translations: [Gastrointestinal hemorrhage, unspecified] Onset: 5 03-25-2025 Episodic Genitourinary symptoms and ill-defined conditions (13 sources) Increased frequency of urination; Translations: [Frequency of micturition] Onset: 5 12-23-2021 Episodic Gout and other crystal arthropathies (19 sources) Gout; Translations: [Gout, unspecified] Onset: 3 05-30-2021 Chronic Headache; including migraine (20 sources) Migraine; Translations: [Migraine, unspecified, not intractable, without status migrainosus] 09-21-2020 Chronic Hypertension with complications and secondary hypertension (2 sources) Hypertensive heart disease with heart failure; Translations: [Hypertensive heart disease with heart failure] Onset: Chronic Malaise and fatigue (20 sources) Fatigue; Translations: [Other fatigue] 11-07-2021 Episodic Mood disorders (20 sources) Depressive disorder; Translations: [Depression] 03-02-2018 Chronic Nonspecific chest pain (3 sources) Rib pain; Translations: [Other chest pain] 03-18-2025 Episodic Osteoarthritis (18 sources) Degenerative joint disease involving multiple joints; Translations: [Osteoarthrosis, unspecified whether generalized or localized, other specified sites] 03-06-2021 Chronic Other aftercare (10 sources) Patient encounter status; Translations: [Long-term (current) use of non-steroidal anti-inflammatories (NSAID)] 08-02-2023 Episodic Other aftercare (6 sources) Long-term current use of anticoagulant; Translations: [halfway (current) use of anticoagulants] 03-19-2025 Episodic Other aftercare (1 source) moth exterminator (current) use of anticoagulants; Translations: [moth exterminator (current) use of anticoagulants] Onset: 5 Episodic Other and unspecified benign neoplasm (9 sources) Benign neoplasm of colon; Translations: [Benign neoplasm of colon, unspecified] 03-06-2021 Episodic Other circulatory disease (9 sources) Raynaud's disease; Translations: [Raynaud's syndrome] 02-19-2025 Chronic Comment on above: Added by Problem Lis t Migration; 2013-05-13; Outside Source Comme nt: Comment on above: Added by Problem List Migration; 2013-05-13; Other circulatory disease (9 sources) Orthostatic hypotension; Translations: [Orthostatic hypotension] 03-18-2025 Episodic Other circulatory disease (2 sources) Orthostatic hypotension; Translations: [Orthostatic hypotension] Onset: 5 Episodic Other congenital anomalies (13 sources) 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; Translations: [Other specified congenital malformation syndromes, not elsewhere classified] 04-02-2018 Chronic Other gastrointestinal disorders (10 sources) Umbilical discharge; Translations: [Other specified symptoms and signs involving the digestive system and abdomen] 06-27-2019 Episodic Other infections; including parasitic (13 sources) 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; Translations: [Post-acute sequelae of COVID-19 (PASC)] 09-21-2020 Chronic Other infections; including parasitic (8 sources) Post-viral disorder; 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] 09-06-2022 Chronic Other injuries and conditions due to external causes (1 source) Unspecified injury of right elbow, initial encounter; Translations: [Injury of right elbow, initial encounter] Onset: 5 Episodic Other lower respiratory disease (9 sources) Paralysis of diaphragm ; Translations: [Disorders of diaphragm] 03-06-2021 Episodic Other lower respiratory disease (13 sources) Hypoxia; Translations: [Hypoxemia] 09-21-2020 Episodic Other lower respiratory disease (11 sources) Dyspnea; Translations: [Dyspnea, unspecified] 09-06-2022 Episodic Other lower respiratory disease (9 sources) Wheezing; Translations: [Wheezing] 08-31-2023 Episodic Other lower respiratory disease (1 source) Shortness of breath Onset: 5 Episodic Other lower respiratory disease (1 source) Hypoxemia; Translations: [Hypoxia] Onset: 5 Episodic Other lower respiratory disease (6 sources) Disorder of diaphragm; Translations: [Disorders of diaphragm] 03-19-2025 Episodic Other lower respiratory disease (6 sources) Respiratory insufficiency; Translations: [Other abnormalities of breathing] 03-19-2025 Episodic Other lower respiratory disease (1 source) Other abnormalities of breathing; Translations: [Other abnormalities of breathing] Onset: 5 Episodic Other lower respiratory disease (1 source) Disorders of diaphragm; Translations: [Disorders of diaphragm] Onset: 5 Episodic Other nervous system disorders (10 sources) Neuropathy; Translations: [Polyneuropathy, unspecified] 03-11-2019 Chronic Other nervous system disorders (13 sources) Unsteady when walking; Translations: [Unsteadiness on feet] 08-20-2020 Episodic Other non-epithelial cancer of skin (13 sources) Basal cell carcinoma of skin in situ; Translations: [Carcinoma in situ of skin, unspecified] 01-10-2019 Episodic Other non-traumatic joint disorders (16 sources) Pain in unspecified knee; Translations: [Recurrent knee pain] 03-02-2018 Episodic Other non-traumatic joint disorders (4 sources) Pain in right knee; Translations: [Right knee pain] 03-11-2019 Episodic Other nutritional; endocrine; and metabolic disorders (17 sources) Body mass index 40+ - severely obese; Translations: [Morbid (severe) obesity due to excess calories] Onset: 1 08-13-2020 Chronic Other nutritional; endocrine; and metabolic disorders (11 sources) Morbid obesity; Translations: [Morbid (severe) obesity due to excess calories] 03-06-2021 Chronic Other nutritional; endocrine; and metabolic disorders (7 sources) Severe obesity; Translations: [Morbid obesity] 02-19-2025 Chronic Other nutritional; endocrine; and metabolic disorders (1 source) Hypomagnesemia; Translations: [Hypomagnesemia] Onset: 5 Chronic Other nutritional; endocrine; and metabolic disorders (1 source) Morbid (severe) obesity due to excess calories; Translations: [Morbid (severe) obesity due to excess calories] Onset: 5 Chronic Other nutritional; endocrine; and metabolic disorders (1 source) Body mass index (BMI) 45.0-49.9, adult; Translations: [Body mass index [BMI] 45.0-49.9, adult] Onset: 5 Chronic Other nutritional; endocrine; and metabolic disorders (9 sources) Weight decreased; Translations: [Abnormal weight loss] 08-22-2024 Episodic Other screening for suspected conditions (not mental disorders or infectious disease) (13 sources) Decreased testosterone level ; Translations: [Other specified abnormal findings of blood chemistry] 11-07-2021 Episodic Other skin disorders (4 sources) Folliculitis; Translations: [Follicular disorder, unspecified] Episodic Other skin disorders (10 sources) Sebaceous cyst of skin; Translations: [Sebaceous cyst] 07-28-2021 Episodic Other skin disorders (14 sources) Pain; Translations: [Disorder of the skin and subcutaneous tissue, unspecified] 07-28-2021 Episodic Other upper respiratory infections (13 sources) Maxillary sinusitis; Translations: [Chronic maxillary sinusitis] 08-30-2018 Chronic Other upper respiratory infections (20 sources) Acute maxillary sinusitis; Translations: [Acute maxillary sinusitis, unspecified] 06-16-2020 Episodic Otitis media and related conditions (20 sources) Acute left otitis media; Translations: [Otitis media, unspecified, left ear] 04-02-2018 Episodic Pneumonia (except that caused by tuberculosis or sexually transmitted disease) (10 sources) Pneumonia; Translations: [Pneumonia, unspecified organism] 08-19-2020 Episodic Pneumonia (except that caused by tuberculosis or sexually transmitted disease) (3 sources) Pneumonia (except that caused by tuberculosis or sexually transmitted disease) Onset: 1 02-19-2025 Poisoning by nonmedicinal substances (10 sources) Toxic effect of venom of black spider, accidental (unintentional), initial encounter; Translations: [Black spider bite] 03-29-2021 Episodic Residual codes; unclassified (15 sources) Obstructive sleep apnea syndrome; Translations: [Obstructive sleep apnea (adult) (pediatric)] Onset: 1 03-06-2021 Chronic Residual codes; unclassified (2 sources) Obstructive sleep apnea (adult) (pediatric); Translations: [Obstructive sleep apnea (adult) (pediatric)] Onset: Chronic Residual codes; unclassified (20 sources) Insomnia; Translations: [Insomnia, unspecified] 01-10-2019 Episodic Rheumatoid arthritis and related disease (9 sources) Rheumatoid arthritis - hand joint; Translations: [Rheumatoid arthritis, unspecified] 03-06-2021 Chronic Spondylosis; intervertebral disc disorders; other back problems (15 sources) Disorder of joint of spine; Translations: [Other spondylosis with radiculopathy, lumbar region] Onset: 6 03-06-2021 Chronic Syncope (4 sources) Syncope and collapse; Translations: [Syncope] Onset: 5 03-18-2025 Episodic Thyroid disorders (9 sources) Hypothyroidism; Translations: [Hypothyroidism, unspecified] Onset: 5 10-23-2024 Chronic Unclassified (5 sources) Patient encounter status; Translations: [NSAID long-term use] 02-19-2025 Unclassified (3 sources) Bite of venomous spider 02-19-2025 Unclassified (3 sources) Contusion of head Onset: 9 02-19-2025 Unclassified (3 sources) Injury of shoulder and/or upper arm Onset: 9 02-19-2025 Unclassified (3 sources) Non-healing surgical wound 02-19-2025 Unclassified (3 sources) Pain of knee region 02-19-2025 Unclassified (3 sources) Post-acute COVID-19 02-19-2025 Unclassified (3 sources) Sebaceous cyst of skin 02-19-2025 Unclassified (1 source) Acute bilateral low back pain without sciatica; Translations: [Acute bilateral low back pain without sciatica] Onset: Viral infection (20 sources) Disease caused by 2019-nCoV; Translations: [COVID-19] Onset: 1 08-09-2020 Episodic Viral infection (3 sources) Disease caused by 2019-nCoV Onset: 1 02-19-2025 Past or Other Problems Problem Classification Problem Date Documented Da te Episodic/Chronic Acute and unspecified renal failure (9 sources) Acute injury of kidney; Translations: [Acute kidney failure, unspecified] Onset: 03-02-2021 03-02-2021 Episodic Conditions associated with dizziness or vertigo (18 sources) Dizziness; Translations: [Dizziness and giddiness] Onset: 04-30-2024 Episodic Fracture of lower limb (12 sources) Closed fracture of fifth metatarsal bone; [...] 09-27-2013 Episodic Respiratory failure; insufficiency; arrest (adult) (9 sources) Acute respiratory failure; Translations: [Acute respiratory failure with hypoxia] Onset: 08-09-2020 08-13-2020 Episodic Skin and subcutaneous tissue infections (20 sources) Cellulitis and abscess of buttock; Translations: [Cutaneous abscess of buttock] Onset: 03-02-2021 03-02-2021 Episodic Spondylosis; intervertebral disc disorders; other back problems (20 sources) Lumbosacral radiculopathy; Translations: [Thoracic or lumbosacral neuritis or radiculitis, unspecified] Onset: 07-23-2015 10-08-2015 Episodic Sprains and strains (20 sources) Sprain of ankle; Translations: [Sprain of foot] Onset: 02-04-2019 Resolved: 10-05-2016 03-16-2022 Episodic Superficial injury; contusion (1 source) Contusion of head; Translations: [Contusion of unspecified part of head, initial encounter] Onset: 02-04-2019 03-16-2022 Episodic NEGATED: Highlighted row has not occurred!Residual codes; unclassified (10 sources) Disease Episodic Results Test Name Value Interpretation Reference Range Facility Basic Metabolic Profile (BMP )on 04-10-2025 BUN/CRE 11.1 RATIO Normal 10-20 [facility] Comment on above: Performed By: #### L [id number], [id number], L100.0100, [id number] #### [facility] [address] [place], [address] Calcium [Mass/Vol] 9.2 mg/dL Normal 7.6-11.0 [facility] Comment on above: Performed By: #### L [id number], [id number], L100.0100, [id number] #### [facility] [address] [place], [address] Chloride [Moles/Vol] 104 mmol/L Normal 98-108 [facility] Comment on above: Performed By: #### L [id number], [id number], [id number], [id number] #### [facility] [address] [place], [address] CO2 [Moles/Vol] 28.8 mmol/L Normal 21.0-32.0 [facility] Comment on above: Performed By: #### L [id number], [id number], [id number], [id number] #### [facility] [address] [place], [address] Creatinine [Mass/Vol] 1.36 mg/dL High 0.70-1.20 [facility] Comment on above: Performed By: #### L [id number], [id number], [id number], [id number] #### [facility] [address] [place], [address] GAP 7 Normal 5-15 [facility] Comment on above: Performed By: #### L [id number], [id number], L100.0100, [id number] #### [facility] [address] [place], [address] GFR/1.73 sq M.predicted among non-blacks MDRD (S/P/Bld) [Vol rate/Area] 60 mL/min/{1.73_m2} Normal >60 [facility] Comment on above: Result Comment: mL/m in/1.73m2 CKD-EPI Creatinine Equation (2020) Performed By: #### L [id number], [id number], [id number], [id number] #### [facility] [address] [place], [address] Glucose [Mass/Vol] 257 mg/dL High 70-99 [facility] Comment on above: Performed By: #### L [id number], [id number], [id number], [id number] #### [facility] [address] [place], [address] Potassium [Moles/Vol] 4.7 mmol/L Normal 3.3-5.1 [facility] Comment on above: Performed By: #### L [id number], [id number], [id number], [id number] #### [facility] [address] [place], [address] Sodium [Moles/Vol] 139 mmol/L Normal 133-145 [facility] Comment on above: Performed By: #### L [id number], [id number], [id number], [id number] #### [facility] [address] [place], [address] Urea nitrogen [Mass/Vol] 15 mg/dL Normal 4-19 [facility] Comment on above: Performed By: #### L [id number], [id number], [id number], [id number] #### [facility] [address] [place], [address] CBC W/Diff, Automatedon 11-0 7-2024 Absolute Lymph 1.44 X10 3/uL Normal 0.83-4.51 [facility] Comment on above: Performed By: #### L 501.9985, L500.4050, L100.0100, L501.9520 #### [facility] [address] [place], [address] Absolute Neut 4.0 X10 3/uL Normal 2.0-7.7 [facility] Comment on above: Performed By: #### L 501.9985, L500.4050, L100.0100, [id number] #### [facility] [address] [place], [address] Basophils/100 WBC (Bld) 0.9 % Normal 0-1 [facility] Comment on above: Performed By: #### L 501.9985, L500.4050, L100.0100, [id number] #### [facility] [address] [place], [address] Eosinophils/100 WBC (Bld) 4.9 % Normal 0-5 [facility] Comment on above: Performed By: #### L 501.9985, L500.4050, L100.0100, [id number] #### [facility] [address] [place], [address] Erythrocyte distribution width (RBC) [Ratio] 13.6 % Normal 11.6-14.6 [facility] Comment on above: Performed By: #### L 501.9985, L500.4050, L100.0100, L501.9520 #### [facility] [address] [place], [address] Hematocrit (Bld) [Volume fraction] 33.1 % Low 40-54 [facility] Comment on above: Performed By: #### L 501.9985, L500.4050, L100.0100, L501.9520 #### [facility] [address] [place], [address] Hemoglobin (Bld) [Mass/Vol] 10.3 g/dL Low 13.0-16.5 [facility] Comment on above: Performed By: #### L 501.9985, L500.4050, L100.0100, L501.9520 #### [facility] [address] [place], [address] IG% 0.300 Normal 0.0-0.9 [facility] Comment on above: Result Comment: IG% - Immature Granulocytes (promyelocytes, myelocytes and metamyelocytes) > 1% indicates that a LEFT SHIFT is Present. Performed By: #### L 501.9985, L500.4050, L100.0100, L501.9520 #### [facility] [address] [place], [address] Lymphocytes/100 WBC (Bld) 22.1 % Normal 19-41 [facility] Comment on above: Performed By: #### L 501.9985, L500.4050, L100.0100, [id number] #### [facility] [address] [place], [address] MCH (RBC) [Entitic mass] 29.6 pg Normal 27.0-32.0 [facility] Comment on above: Performed By: #### L 501.9985, L500.4050, L100.0100, L501.9520 #### [facility] [address] [place], [address] MCHC (RBC) [Mass/Vol] 31.1 g/dL Low 32-36 [facility] Comment on above: Performed By: #### L 501.9985, L500.4050, L100.0100, L501.9520 #### [facility] [address] [place], [address] MCV (RBC) [Entitic vol] 95.1 fL High 80-94 [facility] Comment on above: Performed By: #### L 501.9985, L500.4050, L100.0100, L501.9520 #### [facility] [address] [place], [address] Monocytes/100 WBC (Bld) 11.3 % High 0-10 [facility] Comment on above: Performed By: #### L 501.9985, L500.4050, L100.0100, L501.9520 #### [facility] [address] [place], [address] Neutrophils/100 WBC (Bld) 60.5 % Normal 47-70 [facility] Comment on above: Performed By: #### L 501.9985, L500.4050, L100.0100, L501.9520 #### [facility] [address] [place], [address] Nucleated RBC (Bld) [#/Vol] 0 10*3/uL Normal 0-5 [facility] Comment on above: Performed By: #### L 501.9985, L500.4050, L100.0100, L501.9520 #### [facility] [address] [place], [address] Platelet mean volume (Bld) [Entitic vol] 11.1 fL Normal 6.2-12.0 [facility] Comment on above: Performed By: #### L 501.9985, L500.4050, L100.0100, L501.9520 #### [facility] [address] [place], [address] Platelets (Bld) [#/Vol] 268 10*3/uL Normal 150-450 [facility] Comment on above: Performed By: #### L 501.9985, L500.4050, L100.0100, L501.9520 #### [facility] [address] [place], [address] RBC (Bld) [#/Vol] 3.48 10*6/uL Low 4.6-6.2 [facility] Comment on above: Performed By: #### L 501.9985, L500.4050, L100.0100, L501.9520 #### [facility] [address] [place], [address] RDW SD 47.2 fl High 35.1-43.9 [facility] Comment on above: Performed By: #### L 501.9985, L500.4050, L100.0100, L501.9520 #### [facility] [address] [place], [address] WBC (Bld) [#/Vol] 6.5 10*3/uL Normal 4.4-11.0 [facility] Comment on above: Performed By: #### L 501.9985, L500.4050, L100.0100, L501.9520 #### [facility] [address] [place], [address] Cardiology Visit Reporton Cardiology Visit Report [facility] [address] [place] [address] OFFICE VISIT Date of Service: 04/10/25 MR#: [id number] Acct: [id number] Name: JAME WALLACE Rep #: [id number] : 1965 Provider: NICOLLE Webber Age/Sex: 59/M Location: [facility] [place] Status: Signed HPI HPI History of Present Illness Details: Jame Wallace is a 59-year-old gentleman that presents here today for a hospital follow-up. He was admitted to [facility] on 03/16/2025 and discharged on 03/17/2025. He was admitted for acute CHF new onset atrial fibrillation and hypertension. Patient was also noted to have GI bleeds. Upper endoscopy demonstrated gastric ulcers which were nonbleeding. He did have an echocardiogram which demonstrated an ejection fraction of 65% with moderate concentric LVH with mild aortic insufficiency. He was discharged home on Eliquis. However he presented back to [facility] on 03/18/2025 for continued orthostatic hypotension his hemoglobin had dropped to 8.6 he did not require a blood transfusion his Eliquis has been held since that time he was asked to hold his Eliquis for 2 weeks and then resume it at 5 mg twice a day. His BP has been on the lower side. He feels bettering since being home for the hospital. He does not have any chest pain/heaviness. He does not have any worsening SOB. He does not have any palpitations that he is aware of. He does not have any swelling. He does not have any swelling. 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 STOP-BANG Assessment: 1. Do you snore? y 2. Are you frequently tired during the day? y 3. Have you been observed gasping or choking while asleep? n 4. Do you have high blood pressure? n 5. BMI - greater than 35kg/m2? y 6. Age - over 50 years old? y 7. Neck Circumference - greater than 37 cm for females or 40 cm for males? y 8. Gender - male? y Total STOP-BANG score = 6 which indicates positive risk for obstructive sleep apnea (yes to 3 or more questions = high risk of sleep apnea). 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 Feeder Required: No Accompanied by: Self Is patient in pain?: No Allergies No Known Allergies Allergy (Verified 04/10/25 10:05) Medications ???Medication ???Instructions ???Recorded ???Confirmed ???Type prodigy #1 ea 03/02/18 04/10/25 History fluticasone propionate 0.05 % 1 applic topical QD-BID PRN 04/10/25 Rx topical cream (Cutivate) allergic reaction #60 grams albuterol sulfate 90 mcg/actuation 2 puff inhalation Q4H PRN sob #6 .7 08/22/24 04/10/25 Rx aerosol inhaler (Ventolin HFA) grams bupropion HCl 100 mg tablet,12 hr 100 mg PO BID #180 tabs 08/22/24 04/10/25 Rx sustained-release gabapentin 400 mg capsule 400 mg PO TID 90 days #270 caps 04/10/25 Rx glimepiride 4 mg tablet 4 mg PO QAM #90 tabs 08/22/2412/26 Rx metformin 850 mg tablet 850 mg PO BID #180 tabs 08/22/24 1 06/10/24 Rx metoprolol tartrate 37.5 mg tablet 37.5 mg PO BID #180 tabs 5 04/10/25 Rx mirtazapine 15 mg tablet 7.5 mg (1/2 x 15 mg) PO QHS PRN 04/10/25 Rx sleep 90 days #90 tabs pioglitazone 45 mg tablet 45 mg PO DAILY #90 tabs 08/22/24 1 06/10/24 Rx tramadol 50 mg tablet 50 mg PO TID neuropathic pain #90 08/22/24 04/10/25 Rx tabs levothyroxine 75 mcg tablet 75 mcg PO QDAY #90 tabs 11/03/24 1 06/10/24 Rx (Euthyrox) atorvastatin 40 mg tablet 40 mg PO QHS #90 tabs 11/27/2412/26 Rx ammonium lactate 12 % topical cream 1 applic topical PRN CRACKED SARAH NDS 03/06/25 04/10/25 History duloxetine 60 mg capsule,delayed 60 mg PO QHS depression 03/06/25 1 06/10/24 History release tamsulosin 0.4 mg capsule 0.4 mg PO DAILY enlarged prostate 03/06/25 04/10/25 History oxycodone 5 mg tablet 5 mg PO Q6H PRN pain 7 days #20 04/10/25 Rx tabs magnesium oxide 250 mg PO DAILY supplement 5 04/10/25 History multivitamin 1 tab PO DAILY supplement 03/18/25 04/10/25 History ondansetron 4 mg disintegrating 4 mg PO Q8H PRN PRN nausea 5 04/10/25 History tablet pantoprazole 40 mg tablet,delayed 40 mg PO BID #60 tabs 03/20/25 Rx release (Protonix) sucralfate 1 gram tablet 1 g PO TID #90 tabs 03/20/2504/10 Rx apixaban 5 mg tablet (Eliquis) 5 mg PO BID Afib #60 tabs 04/10/25 04/10/25 Rx (more content not included)... Normal [facility] Surgical pathology reportOrd ered By: Kaylin Begum on 03-30-2025 Surgical pathology study [facility] Absolute lymphocyte countOrd ered By: Herbert Mnae on 03-20-2025 Lymphocytes Auto (Unsp spec) [#/Vol] 1.68 10*3/uL 0.83-4.51 [facility] Automated lymphocyte count a s percentage of total leukocytesOrdered By: Herbert Mane on 03-20-2025 Lymphocytes/100 WBC Auto (Unsp spec) 26.8 % 19-41 [facility] Basophil percentageOrdered B y: Herbert Mane on 03-20-2025 Basophils/100 WBC (Bld) 0.6 % 0-1 [facility] Bedside Glucoseon 03-20-2025 FINGERSTICK GLU 148 mg/dL High 74-106 [facility] Comment on above: Result Comment: KAE GEMENT OF PATIENT CARE PER NURSING PROTOCOL Performed By: #### L 501.080 #### [facility] [address] [place], [address] FINGERSTICK GLU 185 mg/dL High 74-106 [facility] Comment on above: Result Comment: KAE GEMENT OF PATIENT CARE PER NURSING PROTOCOL Performed By: #### L 501.9985, L500.4050, L100.0100, L501.9520 #### [facility] [address] [place], [address] FINGERSTICK GLU 194 mg/dL High 74-106 [facility] Comment on above: Result Comment: KAE GEMENT OF PATIENT CARE PER NURSING PROTOCOL Performed By: #### L 501.080 #### [facility] [address] [place], [address] CBC W/Diff, Automatedon 10-1 Absolute Lymph 1.68 X10 3/uL Normal 0.83-4.51 [facility] Comment on above: Performed By: #### L 501.9985, L500.4050, L100.0100, L501.9520 #### [facility] [address] [place], [address] Absolute Neut 3.6 X10 3/uL Normal 2.0-7.7 [facility] Comment on above: Performed By: #### L 501.9985, L500.4050, L100.0100, L501.9520 #### [facility] [address] [place], [address] Basophils/100 WBC (Bld) 0.6 % Normal 0-1 [facility] Comment on above: Performed By: #### L 501.9985, L500.4050, L100.0100, L501.9520 #### [facility] [address] [place], [address] Eosinophils/100 WBC (Bld) 4.3 % Normal 0-5 [facility] Comment on above: Performed By: #### L 501.9985, L500.4050, L100.0100, L501.9520 #### [facility] [address] [place], [address] Erythrocyte distribution width (RBC) [Ratio] 13.5 % Normal 11.6-14.6 [facility] Comment on above: Performed By: #### L 501.9985, L500.4050, L100.0100, L501.9520 #### [facility] [address] [place], [address] Hematocrit (Bld) [Volume fraction] 25.9 % Low 40-54 [facility] Comment on above: Performed By: #### L 501.9985, L500.4050, L100.0100, L501.9520 #### [facility] [address] [place], [address] Hemoglobin (Bld) [Mass/Vol] 8.6 g/dL Low 13.0-16.5 [facility] Comment on above: Performed By: #### L 501.9985, L500.4050, L100.0100, L501.9520 #### [facility] [address] [place], [address] IG% 0.200 Normal 0.0-0.9 [facility] Comment on above: Result Comment: IG% - Immature Granulocytes (promyelocytes, myelocytes and metamyelocytes) > 1% indicates that a LEFT SHIFT is Present. Performed By: #### L 501.9985, L500.4050, L100.0100, L501.9520 #### [facility] [address] [place], [address] Lymphocytes/100 WBC (Bld) 26.8 % Normal 19-41 [facility] Comment on above: Performed By: #### L 501.9985, L500.4050, L100.0100, L501.9520 #### [facility] [address] [place], [address] MCH (RBC) [Entitic mass] 31.0 pg Normal 27.0-32.0 [facility] Comment on above: Performed By: #### L 501.9985, L500.4050, L100.0100, L501.9520 #### [facility] [address] [place], [address] MCHC (RBC) [Mass/Vol] 33.2 g/dL Normal 32-36 [facility] Comment on above: Performed By: #### L 501.9985, L500.4050, L100.0100, L501.9520 #### [facility] [address] [place], [address] MCV (RBC) [Entitic vol] 93.5 fL Normal 80-94 [facility] Comment on above: Performed By: #### L 501.9985, L500.4050, L100.0100, L501.9520 #### [facility] [address] [place], [address] Monocytes/100 WBC (Bld) 11.5 % High 0-10 [facility] Comment on above: Performed By: #### L 501.9985, L500.4050, L100.0100, L501.9520 #### [facility] [address] [place], [address] Neutrophils/100 WBC (Bld) 56.6 % Normal 47-70 [facility] Comment on above: Performed By: #### L 501.9985, L500.4050, L100.0100, L501.9520 #### [facility] [address] [place], [address] Nucleated RBC (Bld) [#/Vol] 0 10*3/uL Normal 0-5 [facility] Comment on above: Performed By: #### L 501.9985, L500.4050, L100.0100, L501.9520 #### [facility] [address] [place], [address] Platelet mean volume (Bld) [Entitic vol] 12.3 fL High 6.2-12.0 [facility] Comment on above: Performed By: #### L 501.9985, L500.4050, L100.0100, L501.9520 #### [facility] [address] [place], [address] Platelets (Bld) [#/Vol] 171 10*3/uL Normal 150-450 [facility] Comment on above: Performed By: #### L 501.9985, L500.4050, L100.0100, L501.9520 #### [facility] [address] [place], [address] RBC (Bld) [#/Vol] 2.77 10*6/uL Low 4.6-6.2 [facility] Comment on above: Performed By: #### L 501.9985, L500.4050, L100.0100, L501.9520 #### [facility] [address] [place], [address] RDW SD 46.0 fl High 35.1-43.9 [facility] Comment on above: Performed By: #### L 501.9985, L500.4050, L100.0100, L501.9520 #### [facility] [address] [place], [address] WBC (Bld) [#/Vol] 6.3 10*3/uL Normal 4.4-11.0 [facility] Comment on above: Performed By: #### L 501.9985, L500.4050, L100.0100, L501.9520 #### [facility] [address] [place], [address] Discharge Instructionon 03-04 Discharge Instruction [facility] Medical Records Department [address] [place] [address] Instructions for Home/Discharge Instructions 03/20/25 1307 MR#: [id number] Acct: [id number] Name: JAME WALLACE Rep #: [id number] : 1965 59 From: Herbert Mane DO PCP: Jenny Live NP-C Status:ADM IN Discharge Instructions DC O2, CPAP, BIPAP needs Home O2 Discharge instructions: No Dressing / Incision Discharge Activity: Return to Normal Activity Weight Bearing Status: Full weight bearing Follow Up Care Test Results: Test results from this visit will be discussed in further detail at your follow-up appointment, if applicable. Discharge Plan Admission Admit Date/Time: 03/18/25 22:10 Primary Reason for Your Visit: Anemia, gastric ulcer Attending Provider: Herbert Mane Primary Care Provider: Jenny Live NP Consulting Providers: Andrzej Fagan; Isaiah Galloway; Анна Weinstein; Carlyn Brown; Damari Kincaid; Nuzhat Cutler; Kendall Russ Instructions Additional Instructions / Restrictions: You may take Tylenol with your tramadol for pain, do not take any Aleve, ibuprofen, Celebrex, or Toradol for pain Discharge Orders/Prescriptions Prescriptions: New sucralfate 1 gram Tablet 1 g PO TID Qty: 90 0RF pantoprazole [Protonix] 40 mg tablet,delayed release (DR/EC) 40 mg PO BID Qty: 60 0RF Continued (DME) prodigy Qty: 1 Dose Instruction: As directed Rx Instructions: As directed fluticasone propionate [Cutivate] 0.05 % cream 1 applic TOPICAL QD-BID PRN (Reason: allergic reaction) Qty: 60 12RF albuterol sulfate [Ventolin HFA] 90 mcg/actuation HFA aerosol inhaler 2 puff inhalation Q4H PRN (Reason: sob) Qty: 6.7 3RF bupropion HCl 100 mg tablet sustained-release 12 hr 100 mg PO BID Qty: 180 3RF gabapentin [...] 45 mg PO DAILY Qty: 90 3RF tramadol 50 mg tablet 50 mg PO TID Qty: 90 5RF atorvastatin 40 mg tablet 40 mg PO QHS Qty: 90 3RF magnesium oxide 250 mg magnesium tablet 250 mg PO DAILY ondansetron 4 mg tablet,disintegrating 4 mg PO Q8H PRN PRN (Reason: nausea) multivitamin Tablet 1 tab PO DAILY furosemide 40 mg tablet 40 mg PO .qd tamsulosin 0.4 mg capsule 0.4 mg PO DAILY ammonium lactate 12 % cream 1 applic TOPICAL PRN duloxetine 60 mg capsule,delayed release(DR/EC) 60 mg PO QHS oxycodone 5 mg tablet 5 mg PO Q6H PRN (Reason: pain) 7 Days Qty: 20 0RF levothyroxine [Euthyrox] 75 mcg tablet 75 mcg PO QDAY Qty: 90 3RF Changed spironolactone 25 mg Tablet 12.5 mg PO DAILY Qty: 30 0RF Held Eliquis 5 mg tablet 5 mg PO BID Hold Instructions: Resume on 04/03/25. Hold your Eliquis for 2 weeks, then resume it at 5 mg twice a day Discontinued celecoxib 200 mg capsule 200 mg PO BID Qty: 180 3RF ketorolac 10 mg tablet 10 mg PO 4X/DAY PRN PRN (Reason: moderate pain) Referrals / Follow Up: Jenny Live NP, BRUSH WASHER-C [Primary Care Provider, Family Practice] - In 1 Week Referral Note: Have your family physician repeat your CBC next week Janette Washington PA [Med Staff - [facility] Prof, Cardiology] - 04/10/25 9:30 am Disposition Disposition (needs filled in before D/C Order can be placed): Home, Self Care 03/20/25 1342 Herbert Mane DO CC: BRUSH WASHER-Ced Live; BRUSH WASHEROrtega Weinstein; BRUSH WASHER-C Carlyn Brown; Dr. Nuzhat Cutler MD; Dr. Kendall Russ MD; Dr. Andrzej Fagan MD; NICOLLE Orellana; Isaiah Galloway, Signed Normal [facility] Eosinophil percentageOrdered By: Herbert Mane on 03-20-2025 Eosinophils/100 WBC (Bld) 4.3 % 0-5 [facility] Erythrocyte distribution wid th ratioOrdered By: Herbert Mane on 03-20-2025 Erythrocyte distribution width (RBC) [Ratio] 13.5 % 11.6-14.6 [facility] Erythrocyte distribution wid th standard deviationOrdered By: Herbert Mane on 03-20-2025 Erythrocyte distribution width (RBC) [Ratio] 46.0 fl High 35.1-43.9 [facility] de[facility]dered By: Herbert Mane on 03-20-2025 Glucose [Mass/Vol] 185 mg/dL High 74-106 [facility] Hematocrit Auto (Bld) [Volum e fraction]Ordered By: Herbert Mane on 03-20-2025 Hematocrit (Bld) [Volume fraction] 25.9 % Low 40-54 [facility] Hemoglobin measurementOrdere d By: Herbert Mane on 03-20-2025 Hemoglobin (Bld) [Mass/Vol] 8.6 g/dL Low 13.0-16.5 [facility] Immature granulocytes/100 WB C Auto (Bld)Ordered By: Herbert Mane on 03-20-2025 Immature granulocytes/100 WBC (Bld) 0.200 % 0.0-0.9 [facility] MCV (mean corpuscular volume ) determinationOrdered By: Herbert Mane on 03-20-2025 MCV (RBC) [Entitic vol] 93.5 fL 80-94 [facility] Mean corpuscular hemoglobin (MCH) determinationOrdered By: Herbert Mane on 03-20-2025 MCH (RBC) [Entitic mass] 31.0 pg 27.0-32.0 [facility] Monocyte percentageOrdered B y: Herbert Mane on 03-20-2025 Monocytes/100 WBC (Bld) 11.5 % High 0-10 [facility] Neutrophil percentageOrdered By: Herbert Mane on 03-20-2025 Neutrophils/100 WBC (Bld) 56.6 % 47-70 [facility] Platelet countOrdered By: Julian Mane on 03-20-2025 Platelets (Bld) [#/Vol] 171 10*3/uL 150-450 [facility] RBC Auto (Bld) [#/Vol]Ordere d By: Herbert Mane on 03-20-2025 RBC (Bld) [#/Vol] 2.77 10*6/uL Low 4.6-6.2 [facility] Urine Cultureon 03-20-2025 URC Below infection leve jan Gram negative edie Geneva Count <1000 Normal [facility] Comment on above: Performed By: #### M 100.2200 ####[facility] [address] [place], [address] White blood cell (WBC) count Ordered By: Herbert Mane on 03-20-2025 WBC (Bld) [#/Vol] 6.3 10*3/uL 4.4-11.0 [facility] 12 Lead EKGon 03-19-2025 12 Lead EKG [facility] Cardi[facility] Services [address] [place] [address] 12 Lead EKG 03/19/25 0504 MR#: [id number] Acct: [id number] Name: JAME WALLACE Rep #: [id number] : 1965 59 From: Juvenal Cedillo MD Attending Dr: Dr. Herbert Mane, DO Status: A DM IN Ordering Dr: Roman Pichardo MD Date: 03/19/25 Location: U Sex: M C Admitted: 03/18/25 Test Reason : PRE-OP Blood Pressure : */* mmHG Vent. Rate : 80 BPM Atrial Rate : 80 BPM P-R Int : 140 ms QRS Dur : 134 ms QT Int : 414 ms P-R-T Axes : 60 -6 11 degrees QTcB Int : 477 ms Normal sinus rhythm Right bundle branch block Abnormal ECG When compared with ECG of 16-Mar-2025 07:01, No significant change was found Confirmed by JUVENAL CEDILLO MD ([id number]), assistant production editor CAIN GHOTRA ([id number]) on 03/19/2025 10:08:55 AM Referred By: WILLIE Confirmed By: JUVENAL CEDILLO MD 03/19/25 1008 Date Juvenal Cedillo MD CC: DAVID Live; Dr. Roman Pichardo MD; Dr. Herbert Mane, Signed Normal [facility] Activated partial thrombopla stin time (aPTT) in platelet poor plasma by coagulation aOrdered By: Roman Pichardo on 03-19-2025 aPTT Coag (PPP) [Time] 28.6 s 24.1-36.2 [facility] Anion gap in Serum or Plasma Ordered By: Nuzhat Cutler on 03-19-2025 Anion gap [Moles/Vol] 8 mmol/L - [facility] BUN/creatinine ratioOrdered By: Nuzhat Cutler on 03-19-2025 Urea nitrogen/Creatinine [Mass ratio] 41.3 mg/mg High 03-23 [facility] Basic Metabolic Profile (BMP )on 03-19-2025 BUN/CRE 41.3 RATIO High 03-23 [facility] Comment on above: Performed By: #### L 501.9985, L500.4050, L100.0100, L501.9520 #### [facility] [address] [place], [address] Calcium [Mass/Vol] 8.8 mg/dL Normal 7.6-11.0 [facility] Comment on above: Performed By: #### L 501.9985, L500.4050, L100.0100, L501.9520 #### [facility] [address] [place], [address] Chloride [Moles/Vol] 106 mmol/L Normal 98-108 [facility] Comment on above: Performed By: #### L 501.9985, L500.4050, L100.0100, L501.9520 #### [facility] [address] [place], [address] CO2 [Moles/Vol] 27.5 mmol/L Normal 21.0-32.0 [facility] Comment on above: Performed By: #### L 501.9985, L500.4050, L100.0100, L501.9520 #### [facility] [address] [place], [address] Creatinine [Mass/Vol] 1.50 mg/dL High 0.70-1.20 [facility] Comment on above: Performed By: #### L 501.9985, L500.4050, L100.0100, L501.9520 #### [facility] [address] [place], [address] ECRCL 87.50 ml/min Normal 50-250 [facility] Comment on above: Performed By: #### L 501.9985, L500.4050, L100.0100, L501.9520 #### [facility] [address] [place], [address] GAP 8 Normal 5-15 [facility] Comment on above: Performed By: #### L 501.9985, L500.4050, L100.0100, L501.9520 #### [facility] [address] [place], [address] GFR/1.73 sq M.predicted among non-blacks MDRD (S/P/Bld) [Vol rate/Area] 54 mL/min/{1.73_m2} Low >60 [facility] Comment on above: Result Comment: mL/m in/1.73m2 CKD-EPI Creatinine Equation (2020) Performed By: #### L 501.9985, L500.4050, L100.0100, L501.9520 #### [facility] [address] [place], [address] Glucose [Mass/Vol] 151 mg/dL High 70-99 [facility] Comment on above: Performed By: #### L 501.9985, L500.4050, L100.0100, L501.9520 #### [facility] [address] [place], [address] Potassium [Moles/Vol] 4.8 mmol/L Normal 3.3-5.1 [facility] Comment on above: Performed By: #### L 501.9985, L500.4050, L100.0100, L501.9520 #### [facility] [address] [place], [address] Sodium [Moles/Vol] 141 mmol/L Normal 133-145 [facility] Comment on above: Performed By: #### L 501.9985, L500.4050, L100.0100, L501.9520 #### [facility] [address] [place], [address] Urea nitrogen [Mass/Vol] 62 mg/dL High 4-19 [facility] Comment on above: Performed By: #### L 501.9985, L500.4050, L100.0100, L501.9520 #### [facility] [address] [place], [address] Bedside Glucoseon 03-19-2025 FINGERSTICK GLU 155 mg/dL High 74-106 [facility] Comment on above: Result Comment: KAE HOPPER OF PATIENT CARE PER NURSING PROTOCOL Performed By: #### L 501.9985, L500.4050, L100.0100, L501.9520 #### [facility] [address] [place], [address] FINGERSTICK GLU 149 mg/dL High 74-106 [facility] Comment on above: Result Comment: KAE GEMENT OF PATIENT CARE PER NURSING PROTOCOL Performed By: #### L 501.9985, L500.4050, L100.0100, L501.9520 #### [facility] [address] [place], [address] FINGERSTICK GLU 131 mg/dL High 74-106 [facility] Comment on above: Result Comment: KAE GEMENT OF PATIENT CARE PER NURSING PROTOCOL Performed By: #### L 501.9985, L500.4050, L100.0100, L501.9520 #### [facility] [address] [place], [address] Bilirubin directOrdered By: Roman Pichardo on 03-19-2025 Bilirubin.direct [Mass/Vol] 0.12 mg/dL Normal 0.00-0.30 [facility] Comment on above: Performed By: #### L 501.9985, L500.4050, L100.0100, L501.9520 #### [facility] [address] [place], [address] Bilirubin, totalOrdered By: Roman Pichardo on 03-19-2025 Bilirubin [Mass/Vol] 0.29 mg/dL Normal 0.00-1.30 [facility] Comment on above: Performed By: #### L 501.9985, L500.4050, L100.0100, L501.9520 #### [facility] [address] [place], [address] CBC W/Diff, Automatedon 03-04 Absolute Lymph 2.29 X10 3/uL Normal 0.83-4.51 [facility] Comment on above: Performed By: #### L 501.9985, L500.4050, L100.0100, L501.9520 #### [facility] [address] [place], [address] Absolute Neut 4.7 X10 3/uL Normal 2.0-7.7 [facility] Comment on above: Performed By: #### L 501.9985, L500.4050, L100.0100, L501.9520 #### [facility] [address] [place], [address] Basophils/100 WBC (Bld) 0.8 % Normal 0-1 [facility] Comment on above: Performed By: #### L 501.9985, L500.4050, L100.0100, L501.9520 #### [facility] [address] [place], [address] Eosinophils/100 WBC (Bld) 3.5 % Normal 0-5 [facility] Comment on above: Performed By: #### L 501.9985, L500.4050, L100.0100, L501.9520 #### [facility] [address] [place], [address] Erythrocyte distribution width (RBC) [Ratio] 13.3 % Normal 11.6-14.6 [facility] Comment on above: Performed By: #### L 501.9985, L500.4050, L100.0100, L501.9520 #### [facility] [address] [place], [address] Hematocrit (Bld) [Volume fraction] 28.7 % Low 40-54 [facility] Comment on above: Performed By: #### L 501.9985, L500.4050, L100.0100, L501.9520 #### [facility] [address] [place], [address] Hemoglobin (Bld) [Mass/Vol] 9.3 g/dL Low 13.0-16.5 [facility] Comment on above: Performed By: #### L 501.9985, L500.4050, L100.0100, L501.9520 #### [facility] [address] [place], [address] IG% 0.400 Normal 0.0-0.9 [facility] Comment on above: Result Comment: IG% - Immature Granulocytes (promyelocytes, myelocytes and metamyelocytes) > 1% indicates that a LEFT SHIFT is Present. Performed By: #### L 501.9985, L500.4050, L100.0100, L501.9520 #### [facility] [address] [place], [address] Lymphocytes/100 WBC (Bld) 28.7 % Normal 19-41 [facility] Comment on above: Performed By: #### L 501.9985, L500.4050, L100.0100, L501.9520 #### [facility] [address] [place], [address] MCH (RBC) [Entitic mass] 30.7 pg Normal 27.0-32.0 [facility] Comment on above: Performed By: #### L 501.9985, L500.4050, L100.0100, L501.9520 #### [facility] [address] [place], [address] MCHC (RBC) [Mass/Vol] 32.4 g/dL Normal 32-36 [facility] Comment on above: Performed By: #### L 501.9985, L500.4050, L100.0100, L501.9520 #### [facility] [address] [place], [address] MCV (RBC) [Entitic vol] 94.7 fL High 80-94 [facility] Comment on above: Performed By: #### L 501.9985, L500.4050, L100.0100, L501.9520 #### [facility] [address] [place], [address] Monocytes/100 WBC (Bld) 8.0 % Normal 0-10 [facility] Comment on above: Performed By: #### L 501.9985, L500.4050, L100.0100, L501.9520 #### [facility] [address] [place], [address] Neutrophils/100 WBC (Bld) 58.6 % Normal 47-70 [facility] Comment on above: Performed By: #### L 501.9985, L500.4050, L100.0100, L501.9520 #### [facility] [address] [place], [address] Nucleated RBC (Bld) [#/Vol] 0 10*3/uL Normal 0-5 [facility] Comment on above: Performed By: #### L 501.9985, L500.4050, L100.0100, L501.9520 #### [facility] [address] [place], [address] Platelet mean volume (Bld) [Entitic vol] 12.6 fL High 6.2-12.0 [facility] Comment on above: Performed By: #### L 501.9985, L500.4050, L100.0100, L501.9520 #### [facility] [address] [place], [address] Platelets (Bld) [#/Vol] 189 10*3/uL Normal 150-450 [facility] Comment on above: Performed By: #### L 501.9985, L500.4050, L100.0100, L501.9520 #### [facility] [address] [place], [address] RBC (Bld) [#/Vol] 3.03 10*6/uL Low 4.6-6.2 [facility] Comment on above: Performed By: #### L 501.9985, L500.4050, L100.0100, L501.9520 #### [facility] [address] [place], [address] RDW SD 46.0 fl High 35.1-43.9 [facility] Comment on above: Performed By: #### L 501.9985, L500.4050, L100.0100, L501.9520 #### [facility] [address] [place], [address] WBC (Bld) [#/Vol] 8.0 10*3/uL Normal 4.4-11.0 [facility] Comment on above: Performed By: #### L 501.9985, L500.4050, L100.0100, L501.9520 #### [facility] [address] [place], [address] Carbon dioxide, total [Moles /volume] in Central venous bloodOrdered By: Nuzhat He on 03-19-2025 CO2 [Moles/Vol] 27.5 mmol/L 21.0-32.0 [facility] Chloride assayOrdered By: Na na He on 03-19-2025 Chloride [Moles/Vol] 106 mmol/L 98-108 [facility] EGD Reporton 03-19-2025 EGD Report [facility] Medical Records Department [address] [place] [address] EGD Report MR#: [id number] Acct: [id number] Name: JAME WALLACE A Rep #: [id number] : 1965 59 From: Isaiah Galloway DO PCP: DAVID Marina Status:ADM IN Patient Name: Jame Wallace Procedure Date: 03/19/2025 3:15 PM Date of : 1965 Age: 59 Procedure: Upper GI endoscopy Indications: Acute post hemorrhagic anemia, Melena Providers: Isaiah Galloway DO Medicines: Monitored Anesthesia Care Patient Profile: This is a 59 year old male. Refer to note in patient chart for documentation of history and physical. Patient has symptoms of acute dyspepsia and acute nausea. Complications: No immediate complications. Procedure: Pre-Anesthesia Assessment: - Prior to the procedure, a History and Physical was performed, and patient medications and allergies were reviewed. The patient is competent. The risks and benefits of the procedure and the sedation options and risks were discussed with the patient. All questions were answered and informed consent was obtained. Patient identification and proposed procedure were verified by the physician in the pre-procedure area. Mental Status Examination: alert and oriented. Airway Examination: normal oropharyngeal airway and neck mobility. Respiratory Examination: clear to auscultation. CV Examination: normal. Prophylactic Antibiotics: The patient does not require prophylactic antibiotics. Prior Anticoagulants: The patient has taken no anticoagulant or antiplatelet agents except for NSAID medication. ASA Grade Assessment: II - A patient with mild systemic disease. After reviewing the risks and benefits, the patient was deemed in satisfactory condition to undergo the procedure. The anesthesia plan was to use monitored anesthesia care (MAC). Immediately prior to administration of medications, the patient was re-assessed for adequacy to receive sedatives. The heart rate, respiratory rate, oxygen saturations, blood pressure, adequacy of pulmonary ventilation, and response to care were monitored throughout the procedure. The physical status of the patient was re-assessed after the procedure. After obtaining informed consent, the endoscope was passed under direct vision. Throughout the procedure, the patient's blood pressure, pulse, and oxygen saturations were monitored continuously. The Endoscope was introduced through the mouth, and advanced to the third part of the duodenum. Small bowel enteroscopy was deemed necessary. The upper GI endoscopy was accomplished without difficulty. The patient tolerated the procedure well. Scope In: 4:06:13 PM Scope Out: 4:10:31 PM Total Procedure Duration Time 0 hours 4 minutes 18 seconds Findings: The examined esophagus was normal. Many non-bleeding cratered gastric ulcers with no stigmata of bleeding were found in the gastric antrum. The largest lesion was 10 mm in largest dimension. Biopsies were taken with a cold forceps for histology. Verification of patient identification for the specimen was done. Estimated blood loss was minimal. Biopsies were taken with a cold forceps for Helicobacter pylori testing. Verification of patient identification for the specimen was done. No gross lesions were noted in the entire examined duodenum. Impression: - Normal esophagus. - Non-bleeding gastric ulcers with no stigmata of bleeding. Biopsied. - No gross lesions in the entire examined duodenum. Recommendation: - Await pathology results. - Repeat upper endoscopy in 3 months for surveillance. - Use Protonix (pantoprazole) 40 mg PO BID indefinitely. - Use sucralfate tablets 1 gram PO QID for 1 month. - Continue present medications. Procedure Code(s): --- Professional --- 73654, Small intestinal endoscopy, enteroscopy beyond second portion of duodenum, not including ileum; with biopsy, single or multiple CPT copyright 2021 [employer]. All rights reserved. The codes documented in this report are preliminary and upon health information coder review may be revised to meet current compliance requirements. Isaiah Galloway DO 03/19/2025 4:17:30 PM This report has been signed electronically. Number of Addenda: 0 Note Initiated On: 03/19/2025 3:15 PM 03/19/25 0247 Date Isaiah Galloway DO Cosigner Signature: Date (if indicated) CC: DAVID Live; Isaiah Galloway DO Date Dictated: 03/19/25 2925 Date Transcribed: Director Of Marketing Communications: CHAD Signed Normal [facility] Electrocardiogram reportOrde red By: Juvenal Cedillo on 03-19-2025 EKG study [facility] Work Phone: Glomerular filtration rate ( GFR) estimation/1.73 sq m using serum, plasma, or whole bOrdered By: Nuzhat Cutler on 03-19-2025 GFR/1.73 sq M.predicted among non-blacks MDRD (S/P/Bld) [Vol rate/Area] 54 mL/min/{1.73_m2} Low >60 [facility] Immunohistochemical Stainson 03-19-2025 Immunohistochemical Stains Patient Age/Sex Location Account Attending Physician JAME WALLACE 59/M [facility] [id number] Dr. Herbert Mane DO Specimen: [id number] Received: 03/19/25 Status: GEORGE Kellynena Num: [id number] Spec Type: EGD BIOPSY Subm Dr: Dr. Herbert Mane DO HEAD OPERATION: EGD with biopsy PRE-OP DIAGNOSIS: Orthostatic hypotension, acute upper gastrointestinal bleeding TISSUE SUBMITTED: A- Gastric antrum ulcer biopsy MICROSCOPIC DIAGNOSIS A. Gastric antrum, "ulcer", biopsy: * Antral mucosa with features of reactive gastropathy and mild active chronic inflammation. * IHC negative for H. pylori organisms. MICROSCOPIC DESCRIPTION Slides are reviewed. Slides are reviewed. All matched controls reacted appropriately. These tests were developed and their performance characteristics determined by [facility]. They may not have been cleared or approved by the U.S. Food and Drug Administration. The FDA has determined that such clearance or approval is not necessary. The above immunohistochemical markers and/or special???stains have been reviewed by the Pathologist. GROSS DESCRIPTION A. Received in fixative is one container labeled with the patient's name and designated Gastric antrum ulcer biopsy." The specimen consists of four irregular fragments of ruth tissue that measure 0.1 to 0.4 cm. The specimen is totally submitted in one cassette. [place] 03/20/2025 [facility]:[id number],[address]400 Patient Age/Sex Location Account Attending Physician JAME WALLACE 59/M [facility] [id number] Dr. Herbert Mane DO Signed (signature on file) Dr. Kaylin Begum MD 03/30/25 1216 Normal [facility] Comment on above: Performed By: #### P IMHI ####[facility] [id number] [place], [address] Liver Profileon 03-19-2025 ALK PHOS 66 U/L Normal 40-129 [facility] Comment on above: Performed By: #### L 501.9985, L500.4050, L100.0100, L501.9520 #### [facility] [address] [place], [address] AST [Catalytic activity/Vol] 15 U/L Normal <=37 [facility] Comment on above: Performed By: #### L 501.9985, L500.4050, L100.0100, L501.9520 #### [facility] [address] [place], [address] T PROT 5.5 g/dL Low 5.9-8.4 [facility] Comment on above: Performed By: #### L 501.9985, L500.4050, L100.0100, L501.9520 #### [facility] [address] [place], [address] MR/CON.PCM.GIon 03-19-2025 MR/CON.PCM.GI [facility] Medical Records Department [address] [place] [address] Consultation - GI 03/19/25 1550 MR#: [id number] Acct: [id number] Name: JAME WALLACE Rep #: [id number] : 1965 59 From: Isaiah Galloway DO PCP: DAVID Marina Status:ADM IN Location: [place] [address] HPI Consult Data Date of Consult: 03/19/25 HPI Narrative Reason for Consultation: Syncope HPI Narrative: JAME WALLACE, is a 59 M who presented to the ED with a complaint of lightheadedness and near syncope. Patient was recently discharged from the hospital with CHF as exacerbation and kidney stones. He is on aspirin Plavix and Eliquis and has also been taken celecoxib for arthritis. Patient apparently feels lightheaded whenever he gets up and has gone on over the past 2 weeks. He feels dizzy and lightheaded when he stands and feels better when he sits down and has also had several episodes of syncope. He denied any nausea or vomiting, fever or chills, chest pain or palpitations. He denied any diarrhea but admitted to dark stools. He had recently been on oral toradol for kidney stones and is also chronically on celebrex at home. Review of systems otherwise negative. He went to see his PCP today and was told to come into the ED. I was asked to see him because his hemoglobin went from 12.7-11.1 in 1 day and his stools were fecal occult positive. [facility] Medical History CHF exacerbation ADDY (obstructive sleep apnea) Chronic anticoagulation Atrial fibrillation Morbid obesity with BMI of 45.0-49.9, adult Respiratory insufficiency Hypertension Diabetes Chronic pain Kidney stones Atrial fibrillation [...] Medications ???Medication ???Instructions ???Recorded ???Last Taken ???Type prodigy #1 ea 03/02/18 Unknown History fluticasone propionate 0.05 % 1 applic topical QD-BID PRN Unknown Rx topical cream (Cutivate) allergic reaction #60 grams albuterol sulfate 90 mcg/actuation 2 puff inhalation Q4H PRN sob #6 .7 08/22/24 Unknown Rx aerosol inhaler (Ventolin HFA) grams bupropion HCl 100 mg tablet,12 hr 100 mg PO BID #180 tabs 08/22/24 03/18/25 23:50 Rx sustained-release celecoxib 200 mg capsule 200 mg PO BID #180 caps 08/22/24 1 11:50 Rx gabapentin 400 mg capsule 400 mg PO TID 90 days #270 caps 03/18/25 06:51 Rx glimepiride 4 mg tablet 4 mg PO QAM #90 tabs 08/22/2403/04 06:51 Rx metformin 850 mg tablet 850 mg PO BID #180 tabs 08/22/24 1 06:52 Rx metoprolol tartrate 37.5 mg tablet 37.5 mg PO BID #180 tabs 5 03/18/25 06:52 Rx mirtazapine 15 mg tablet 7.5 mg (1/2 x 15 mg) PO QHS PRN 03/17/25 23:52 Rx sleep 90 days #90 tabs pioglitazone 45 mg tablet 45 mg PO DAILY #90 tabs 08/22/24 1 18:53 Rx tramadol 50 mg tablet 50 mg PO TID neuropathic pain #90 08/22/24 03/18/25 06:54 Rx tabs levothyroxine 75 mcg tablet 75 mcg PO QDAY #90 tabs 11/03/24 1 06:51 Rx (Euthyrox) atorvastatin 40 mg tablet 40 mg PO QHS #90 tabs 11/27/24 23:49 Rx ammonium lactate 12 % topical cream 1 applic topical PRN CRACKED SARAH NDS 03/06/25 Unknown History duloxetine 60 mg capsule,delayed 60 mg PO QHS depression 03/06/25 1 23:50 History release ketorolac 10 mg tablet 10 mg PO 4X/DAY PRN PRN moderate 1 03/10/25 History pain tamsulosin 0.4 mg capsule 0.4 mg PO DAILY enlarged prostate 03/06/25 03/18/25 06:54 History oxycodone 5 mg tablet 5 mg PO Q6H PRN pain 7 days #20 10 /08/25 10/12/25 Rx tabs spironolactone 25 mg tablet 25 mg PO DAILY #30 tabs 03/17/25 U nknown Rx apixaban 5 mg tablet (Eliquis) 5 mg PO BID Afib 03/18/25 03/18/25 06:54 History furosemide 40 mg tablet 40 mg PO .qd CHF 03/18/25 03/17/25 06:55 History magnesium oxide 250 mg PO DAILY supplement 5 03/18/25 06:52 History multivitamin 1 tab PO DAILY supplement 03/18/25 03/18/25 06:52 History ondansetron 4 mg disintegrating 4 mg PO Q8H PRN PRN nausea Unknown History tablet (more content not included)... [facility] Medical Records Department [address] [place], [place] [id number] Provation Physician Letter MR#: [id number] Acct: [id number] Name: JAME WALLACE Rep #: [id number] : 1965 59 From: Isaiah Galloway DO PCP: DAVID Marina Status:ADM IN 03/19/2025 Jenny Live NP After Hours [facility] [address] [place] [id number] Re : Upper GI endoscopy procedure for Jame Madison Dear Ms. Live This procedure was performed on March. My impressions and recommendations are as follows: Impressions : - Normal esophagus. - Non-bleeding gastric ulcers with no stigmata of bleeding. Biopsied. - No gross lesions in the entire examined duodenum. Recommendations : - Await pathology results. - Repeat upper endoscopy in 3 months for surveillance. - Use Protonix (pantoprazole) 40 mg PO BID indefinitely. - Use sucralfate tablets 1 gram PO QID for 1 month. - Continue present medications. My findings are described in the full procedure note, which is enclosed. If I can be of further assistance, please feel free to contact me at . Sincerely, Isaiah Galloway DO 03/19/2025 4:17:30 PM This report has been signed electronically. 03/19/25 1617 Date Isaiah Blackburnignduane Signature: Date (if indicated) CC: MANDO-Ced Live; BRUSH WASHER-C Анна Weinstein; BRUSH WASHER-C Carlyn Brown; Dr. Herbert Mane DO; Dr. Nuzhat Cutler MD; Dr. Kendall Russ MD; Dr. Andrzej Fagan MD; NICOLLE Orellana; Isaiah Galloway DO Date Dictated: 03/19/25 1515 Date Transcribed: Director Of Marketing Communications: CHAD Cuellar [facility] MR/POSTOP.[facility] 03-19-2025 MR/POSTOP.[facility] Medical Records Department [address] [place] [address] Anesthesia Postop Eval I 03/19/25 1628 MR#: [id number] Acct: [id number] Name: JAME WALLACE Rep #: [id number] : 1965 59 From: Eric Sheehan CRNA PCP: DAVID Marina Status:ADM IN Y Race: C Location: [place] [address] Anesthesia: Postop Eval I Current Vital Signs Temperature: 98.2 F Pulse Rate: 83 Blood Pressure: 100/50 Respiratory Rate: 16 Pulse Ox: 97 Assessment Airway patent: Yes Spontaneous unlabored respirations: Yes nausea: No Vomiting: No Anesthesia Complication: No Fluid Hydration Crystalloid volume administer (ml): 200 Total IV fluid infused: 200 Progress Note Anesthesia document: Postop Eval 1 completed: Yes 03/19/25 162 Date Eric Sheehan TYPING OFFICE WORKER Cosigner Signature: Date CC: Signed Normal [facility] MR/[id number] 03-19-2025 MR/POSTOPAN2 [facility] Medical Records Department [address] [facility] [address] Anesthesia Postop Eval II 03/19/251703 MR#: [id number] Acct: [id number] Name: JAME WALLACE Rep #: [id number] : 1965 59 From: Roman Pichardo MD PCP: DAVID Marina Status:ADM IN Y Race: C Location: [place] [address] Anesthesia Postop Eval I Sum Postop Eval Completion status Anesthesia document: Postop Eval 1 completed: Yes Anesthesia Postop Eval I Summary Anesthesia Postop Eval I Summary: Anesthesia Postop Eval I: Assessment Summary Airway patent Yes 03/19/25 16:28 TYPING OFFICE WORKER.TNES Spontaneous unlabored Yes 03/19/25 16:28 TYPING OFFICE WORKER.TNES respirations Mental status nausea No 03/19/25 16:28 TYPING OFFICE WORKER.TNES Vomiting No 03/19/25 16:28 TYPING OFFICE WORKER.TNES Anesthesia Postop Eval I: Fluid Summary Crystalloid volume administer 200 03/19/25 16:28 TYPING OFFICE WORKER.TNES (ml) Colloids volume administered ( ml) Blood Product volume administered (ml) Total IV fluid infused 200 03/19/25 16:28 TYPING OFFICE WORKER.TNES Anesthesia Postop Eval I: Summary Notes Anesthesia Complication No 03/19/25 16:28 TYPING OFFICE WORKER.TNES Anesthesia Complication Comment: Post-operative progress note Anesthesia: Postop Eval II Evaluation Mental status: Awake and Calm Pain Level: 1 nausea: No Vomiting: No Complications Anesthesia Complication: No 03/19/251703 Date Roman Pichardo MD Cosigner Signature: Date CC: Signed Normal [facility] No Panel InformationOrdered By: Roman Pichardo on 03-19-2025 15 U/L <38 [facility] Partial Thromboplast Timeon 03-19-2025 aPTT Coag (Bld) [Time] 28.6 s Normal 24.1-36.2 [facility] Comment on above: Performed By: #### L 501.9985, L500.4050, L100.0100, L501.9520 #### [facility] [address] [place], [address] Potassium measurement (mass/ volume)Ordered By: Nuzhat Cutler on 03-19-2025 Potassium (Unsp spec) [Mass/Vol] 4.8 mmol/L 3.3-5.1 [facility] Prothrombin Time w/INRon INR Coag (PPP) [Relative time] 1.1 {INR} Normal [facility] Comment on above: Performed By: #### L 501.9985, L500.4050, L100.0100, L501.9520 #### [facility] [address] [place], [address] PT Coag (PPP) [Time] 14.3 s Normal 11.7-14.9 [facility] Comment on above: Performed By: #### L 501.9985, L500.4050, L100.0100, L501.9520 #### [facility] [address] [place], [address] Prothrombin timeOrdered By: Roman Pichardo on 03-19-2025 PT Coag (PPP) [Time] 14.3 s 11.7-14.9 [facility] Serum creatinine measurement (mass/volume)Ordered By: Nuzhat Cutler on 03-19-2025 Creatinine [Mass/Vol] 1.50 mg/dL High 0.70-1.20 [facility] Serum globulin measurementOr dered By: Roman Pichardo on 03-19-2025 Globulin (S) [Mass/Vol] 2.3 g/dL Normal 2.2-4.2 [facility] Comment on above: Performed By: #### L 501.9985, L500.4050, L100.0100, L501.9520 #### [facility] [address] [place], [address] Serum glucose measurement (m ass/volume)Ordered By: Nuzhat Cutler on 03-19-2025 Glucose [Mass/Vol] 151 mg/dL High 70-99 [facility] Serum or plasma alanine matos otransferase (ALT) measurementOrdered By: Roman Pichardo on 03-19-2025 ALT [Catalytic activity/Vol] 10 U/L Normal <=46 [facility] Comment on above: Performed By: #### L 501.9985, L500.4050, L100.0100, L501.9520 #### [facility] [address] [place], [address] Serum or plasma albumin daly urement (mass/volume)Ordered By: Romna Pichardo on 03-19-2025 Albumin [Mass/Vol] 3.2 g/dL Low 3.5-5.0 [facility] Comment on above: Performed By: #### L 501.9985, L500.4050, L100.0100, L501.9520 #### [facility] [address] [place], [address] Serum or plasma alkaline gunjan sphatase measurementOrdered By: Roman Pichardo on 03-19-2025 ALP [Catalytic activity/Vol] 66 U/L 40-129 [facility] Serum or plasma calcium daly urement (mass/volume)Ordered By: Nuzhat Cutler on 03-19-2025 Calcium [Mass/Vol] 8.8 mg/dL 7.6-11.0 [facility] Serum or plasma urea nitroge n measurement (mass/volume)Ordered By: Nuzhat Cutler on 03-19-2025 Urea nitrogen [Mass/Vol] 62 mg/dL High 09-20 [facility] Sodium levelOrdered By: Nuzaht Cutler on 03-19-2025 Sodium [Moles/Vol] 141 mmol/L 133-145 [facility] Total proteinOrdered By: Cam Pichardo on 03-19-2025 Protein [Mass/Vol] 5.5 g/dL Low 5.9-8.4 [facility] Amorphous sediment detection in urine sediment by light microscopyOrdered By: Scott Nevarez on 03-18-2025 Amorphous sediment LM Ql (Urine sed) 2+ [facility] Basic Metabolic Profile (BMP )on 03-18-2025 BUN/CRE 40.4 RATIO High 03-23 [facility] Comment on above: Performed By: #### L 500.2500, L503.7505, L300.8000, L100.0100 ####[facility] [address] [place], [address] Calcium [Mass/Vol] 9.5 mg/dL Normal 7.6-11.0 [facility] Comment on above: Performed By: #### L 500.2500, L503.7505, L300.8000, L100.0100 ####[facility] [address] [place], [address] Chloride [Moles/Vol] 99 mmol/L Normal 98-108 [facility] Comment on above: Performed By: #### L 500.2500, L503.7505, L300.8000, L100.0100 ####[facility] [address] [place], [address] CO2 [Moles/Vol] 30.2 mmol/L Normal 21.0-32.0 [facility] Comment on above: Performed By: #### L 500.2500, L503.7505, L300.8000, L100.0100 ####[facility] [address] [place], [address] Creatinine [Mass/Vol] 1.70 mg/dL High 0.70-1.20 [facility] Comment on above: Performed By: #### L 500.2500, L503.7505, L300.8000, L100.0100 ####[facility] [address] [place], [address] GAP 9 Normal 5-15 [facility] Comment on above: Performed By: #### L 500.2500, L503.7505, L300.8000, L100.0100 ####[facility] [address] [place], [address] GFR/1.73 sq M.predicted among non-blacks MDRD (S/P/Bld) [Vol rate/Area] 46 mL/min/{1.73_m2} Low >60 [facility] Comment on above: Result Comment: mL/m in/1.73m2 CKD-EPI Creatinine Equation (2020) Performed By: #### L 500.2500, L503.7505, L300.8000, L100.0100 ####[facility] [address] [place], [address] Glucose [Mass/Vol] 180 mg/dL High 70-99 [facility] Comment on above: Performed By: #### L 500.2500, L503.7505, L300.8000, L100.0100 ####[facility] [address] [place], [address] Potassium [Moles/Vol] 5.0 mmol/L Normal 3.3-5.1 [facility] Comment on above: Performed By: #### L 500.2500, L503.7505, L300.8000, L100.0100 ####[facility] [address] [place], [address] Sodium [Moles/Vol] 138 mmol/L Normal 133-145 [facility] Comment on above: Performed By: #### L 500.2500, L503.7505, L300.8000, L100.0100 ####[facility] [address] [place], [address] Urea nitrogen [Mass/Vol] 69 mg/dL High 4-19 [facility] Comment on above: Performed By: #### L 500.2500, L503.7505, L300.8000, L100.0100 ####[facility] [address] [place], [address] Bilirubin Test strip Ql (U)O rdered By: Scott Nevarez on 03-18-2025 Bilirubin Ql (U) 1 mg/dL High Negative [facility] CBC W/Diff, Automatedon 03-04 Absolute Lymph 2.00 X10 3/uL Normal 0.83-4.51 [facility] Comment on above: Performed By: #### L 500.2500, L503.7505, L300.8000, L100.0100 #### [facility] [address] [place], [address] Absolute Neut 7.1 X10 3/uL Normal 2.0-7.7 [facility] Comment on above: Performed By: #### L 500.2500, L503.7505, L300.8000, L100.0100 #### [facility] [address] [place], [address] Basophils/100 WBC (Bld) 0.6 % Normal 0-1 [facility] Comment on above: Performed By: #### L 500.2500, L503.7505, L300.8000, L100.0100 #### [facility] [address] [place], [address] Eosinophils/100 WBC (Bld) 3.1 % Normal 0-5 [facility] Comment on above: Performed By: #### L 500.2500, L503.7505, L300.8000, L100.0100 #### [facility] [address] [place], [address] Erythrocyte distribution width (RBC) [Ratio] 13.2 % Normal 11.6-14.6 [facility] Comment on above: Performed By: #### L 500.2500, L503.7505, L300.8000, L100.0100 #### [facility] [address] [place], [address] Hematocrit (Bld) [Volume fraction] 34.1 % Low 40-54 [facility] Comment on above: Performed By: #### L 500.2500, L503.7505, L300.8000, L100.0100 #### [facility] [address] [place], [address] Hemoglobin (Bld) [Mass/Vol] 11.1 g/dL Low 13.0-16.5 [facility] Comment on above: Performed By: #### L 500.2500, L503.7505, L300.8000, L100.0100 #### [facility] [address] [place], [address] IG% 0.300 Normal 0.0-0.9 [facility] Comment on above: Result Comment: IG% - Immature Granulocytes (promyelocytes, myelocytes and metamyelocytes) > 1% indicates that a LEFT SHIFT is Present. Performed By: #### L 500.2500, L503.7505, L300.8000, L100.0100 #### [facility] [address] [place], [address] Lymphocytes/100 WBC (Bld) 18.6 % Low 19-41 [facility] Comment on above: Performed By: #### L 500.2500, L503.7505, L300.8000, L100.0100 #### [facility] [address] [place], [address] MCH (RBC) [Entitic mass] 30.8 pg Normal 27.0-32.0 [facility] Comment on above: Performed By: #### L 500.2500, L503.7505, L300.8000, L100.0100 #### [facility] [address] [place], [address] MCHC (RBC) [Mass/Vol] 32.6 g/dL Normal 32-36 [facility] Comment on above: Performed By: #### L 500.2500, L503.7505, L300.8000, L100.0100 #### [facility] [address] [place], [address] MCV (RBC) [Entitic vol] 94.7 fL High 80-94 [facility] Comment on above: Performed By: #### L 500.2500, L503.7505, L300.8000, L100.0100 #### [facility] [address] [place], [address] Monocytes/100 WBC (Bld) 11.3 % High 0-10 [facility] Comment on above: Performed By: #### L 500.2500, L503.7505, L300.8000, L100.0100 #### [facility] [address] [place], [address] Neutrophils/100 WBC (Bld) 66.1 % Normal 47-70 [facility] Comment on above: Performed By: #### L 500.2500, L503.7505, L300.8000, L100.0100 #### [facility] [address] [place], [address] Nucleated RBC (Bld) [#/Vol] 0 10*3/uL Normal 0-5 [facility] Comment on above: Performed By: #### L 500.2500, L503.7505, L300.8000, L100.0100 #### [facility] [address] [place], [address] Platelet mean volume (Bld) [Entitic vol] 12.3 fL High 6.2-12.0 [facility] Comment on above: Performed By: #### L 500.2500, L503.7505, L300.8000, L100.0100 #### [facility] [address] [place], [address] Platelets (Bld) [#/Vol] 245 10*3/uL Normal 150-450 [facility] Comment on above: Performed By: #### L 500.2500, L503.7505, L300.8000, L100.0100 #### [facility] [address] [place], [address] RBC (Bld) [#/Vol] 3.60 10*6/uL Low 4.6-6.2 [facility] Comment on above: Performed By: #### L 500.2500, L503.7505, L300.8000, L100.0100 #### [facility] [address] [place], [address] RDW SD 45.5 fl High 35.1-43.9 [facility] Comment on above: Performed By: #### L 500.2500, L503.7505, L300.8000, L100.0100 #### [facility] [address] [place], [address] WBC (Bld) [#/Vol] 10.8 10*3/uL Normal 4.4-11.0 [facility] Comment on above: Performed By: #### L 500.2500, L503.7505, L300.8000, L100.0100 #### [facility] [address] [place], [address] Chest PA and Lateralon 03-18 Chest PA and Lateral [facility] [address] [place] [address] Chest PA and Lateral MR#: [id number] Acct: [id number] Name: JAME WALLACE Rep #: [id number] : 1965 M 59 From: Jamie Scott MD PCP: DAVID Mraina Status: REG ER Study: Chest PA and Lateral Date of Exam: 03/18/25 Exam# [id number] Ordering Dr: Scott Nevarez DO PROCEDURE: CHEST PA AND LATERAL 03/18/2025 REASON FOR EXAM: DYSPNEA TECHNIQUE: Procedure Code: RADCXR Modality: DX Procedure: CHEST PA AND LATERAL COMPARISON: 03/16/2025 FINDINGS: Elevated right hemidiaphragm, unchanged. Likely associated mild right basilar subsegmental atelectasis. No pneumothorax or sizable pleural effusion. Cardiac silhouette is normal in size. No significant osseous abnormality. Cholecystectomy surgical clips. RAD/Chest PA and Lateral IMPRESSION: Elevated right hemidiaphragm, likely with overlying atelectasis. Unchanged. Reading Location: [facility] CC: [employer]; Dr. Scott Nevarez DO Director Of Marketing Communications: Signed Normal [facility] D-Dimer Quantitative (DVT/PE )on 03-18-2025 D-DIMER QUANT < 0.27 Low 0.27-0.49 [facility] Comment on above: Result Comment: NORM AL D-Dimer level (<0.50) indicates no DVT or PE. Performed By: #### L 500.2500, L503.7505, L300.8000, L100.0100 ####[facility] [address] [facility] [place], [address] Emergency Department Summary on 03-18-2025 Emergency Department Summary [facility] Medical Records Department [address] [facility] [address] [place] [address] Emergency Department Summary 03/18/25 MR#: [id number] Acct: [id number] Name: JAME WALLACE Rep #: [id number] : 1965 59 From: Soctt Nevarez DO PCP: DAVID Marina Status:ADM IN Location: [place] [address] HPI History of Present Illness Chief Complaint: Syncope Informant: patient Onset/Context/Timing Onset: Weeks (2) Timing: Intermittent Quality: Lightheaded, spinning Location: Generalized Worsened by: Standing up Relieved by: Sitting down Narrative Narrative: Patient presents with syncopal episodes that have been intermittent over the past 2 weeks. Patient states he gets dizzy when he stands. Patient states he felt better when he sits down. Patient states that prior to syncopal episodes, he gets some tinnitus and spinning sensation. Patient states his face feels flushed. Patient admits to some blurry vision at times. Patient denies any chest pain or palpitations. Patient denies any shortness of breath or cough. Patient denies any nausea or vomiting. Patient denies any diarrhea, melena, or hematochezia. [facility] Medical History Diabetes Chronic pain Kidney stones [...] tablet 45 mg PO DAILY #90 tabs 08/22/24 1 Rx sumatriptan succinate 50 mg tablet See Rx Instructions PO .COMPLEX 90 08/22/24 Unknown Rx days #20 tabs tramadol 50 mg tablet 50 mg PO TID neuropathic pain #90 08/22/24 03/10/25 Rx tabs levothyroxine 75 mcg tablet 75 mcg PO QDAY #90 tabs 11/03/24 1 Rx (Euthyrox) atorvastatin 40 mg tablet 40 mg PO QHS #90 tabs 11/27/2412/26 Rx rimegepant 75 mg disintegrating 75 mg PO ONCE PRN migraine headach e 11/27/24 Unknown History tablet (Nurtec ODT) rimegepant 75 mg disintegrating 75 mg PO ONCE PRN migraine 5 Unknown Rx tablet (Nurtec ODT) headache #7 tabs ammonium lactate 12 % topical cream 1 applic topical PRN CRACKED SARAH NDS 03/06/25 Unknown History apixaban 5 mg tablet (Eliquis) 5 mg PO BID 03/06/25 03/07/25 Hist ory duloxetine 60 mg capsule,delayed 60 mg PO QHS 03/06/25 03/10/25 His tory release furosemide 40 mg tablet 40 mg PO DAILY 03/06/25 03/10/25 H istory ketorolac 10 mg tablet 10 mg PO 4X/DAY PRN PRN moderate 1 03/10/25 History pain meclizine 12.5 mg tablet 12.5 mg PO TID PRN vertigo 5 Unknown History tamsulosin 0.4 mg capsule 0.4 mg PO DAILY 03/06/25 03/10/25 History cephalexin 500 mg capsule 500 mg PO Q6H #28 caps 03/11/25 Un known Rx oxycodone 5 mg tablet 5 mg PO Q6H PRN pain 7 days #20 Unknown Rx tabs phenazopyridine 100 mg tablet 100 mg PO TID #20 tabs 03/11/25 Un known Rx (Pyridium) spirono (more content not included)... Normal [facility] H AND P Exam - Hospitaliston 03-18-2025 H&P Exam - Hospitalist [facility] Medical Records Department [address] [place] [address] H P Exam - Hospitalist 03/18/252151 MR#: [id number] Acct: [id number] Name: JAME WALLACE Rep #: [id number] : 1965 59 From: Nuzhat Cutler MD PCP: DAVID Marina Status:ADM IN [facility] - General General Date of Admission: 03/18/25 Date of Service: 03/18/25 HPI Narrative JAME WALLACE, is a 59 M with a PMH as outlined who was admitted via the ED on 03/18/2025 with a complaint of lightheadedness and near syncope. Patient apparently feels lightheaded whenever he gets up and has gone on over the past 2 weeks. He feels dizzy and lightheaded when he stands and feels better when he sits down and has also had several episodes of syncope. He has had associated tinnitus and spinning sensation and states his face feels flushed and he has blurry vision at times associated with this. He denied any nausea or vomiting, fever or chills, chest pain or palpitations. He denied any diarrhea but admitted to dark stools. He had recently been on oral toradol for kidney stones and is also chronically on celebrex at home. Review of systems otherwise negative. He went to see his PCP today and was told to come into the ED. Vitals in the ED were blood pressure 110/53, pulse rate of 76, respiratory rate of 15 and she was saturating at 97% on room air. CBC showed hemoglobin of 11.1 and WBC of 10.8. Platelets were 245. D-dimer was less than 0.27. Chemistry shows sodium of 138 with potassium of 5 and bicarb of 30.2. Creatinine is 1.7. URinalysis showed evidence of UTI with 3+ bacteria, elevated wbc and nitrites. Chest x-ray showed elevated right hemidiaphragm likely with overlying atelectasis which was unchanged from prior imaging but no other acute cardiopulmonary pathology. His hemoglobin was noted to have dropped from 12.7 on 03/16/2025 to 11.1 today. Stool for occult blood done was positive. He is on Eliquis. Was started on pantoprazole drip after getting pantoprazole bolus in the ED and is being admitted to be managed for dizziness and near syncope due to acute GI bleed. [facility] Medical History Diabetes Chronic pain Kidney stones [...] Medications ???Medication ???Instructions ???Recorded ???Last Taken ???Type prodigy #1 ea 03/02/18 Unknown History fluticasone propionate 0.05 % 1 applic topical QD-BID PRN Unknown Rx topical cream (Cutivate) allergic reaction #60 grams albuterol sulfate 90 mcg/actuation 2 puff inhalation Q4H PRN sob #6 .7 08/22/24 Unknown Rx aerosol inhaler (Ventolin HFA) grams bupropion HCl 100 mg tablet,12 hr 100 mg PO BID #180 tabs 08/22/24 03/18/25 23:50 Rx sustained-release celecoxib 200 mg capsule 200 mg PO BID #180 caps 08/22/24 1 11:50 Rx gabapentin 400 mg capsule 400 mg PO TID 90 days #270 caps 03/18/25 06:51 Rx glimepiride 4 mg tablet 4 mg PO QAM #90 tabs 08/22/2403/04 06:51 Rx metformin 850 mg tablet 850 mg PO BID #180 tabs 08/22/24 1 06:52 Rx metoprolol tartrate 37.5 mg tablet 37.5 mg PO BID #180 tabs 5 03/18/25 06:52 Rx mirtazapine 15 mg tablet 7.5 mg (1/2 x 15 mg) PO QHS PRN 03/17/25 23:52 Rx sleep 90 days #90 tabs pioglitazone 45 mg tablet 45 mg PO DAILY #90 tabs 08/22/24 1 18:53 Rx tramadol 50 mg tablet 50 mg PO TID neuropathic pain #90 08/22/24 03/18/25 06:54 Rx tabs levothyroxine 75 mcg tablet 75 mcg PO QDAY #90 tabs 11/03/24 1 06:51 Rx (Euthyrox) atorvastatin 40 mg tablet 40 mg PO QHS #90 tabs 11/27/24 23:49 Rx ammonium lactate 12 % topical cream 1 applic topical PRN CRACKED SARAH NDS 03/06/25 Unknown History duloxetine 60 mg capsule,delayed 60 mg PO QHS depression 03/06/25 1 23:50 History release ketorolac 10 mg tablet 10 mg PO 4X/DAY PRN PRN moderate 1 03/10/25 History pain tamsulosin 0.4 mg capsule 0.4 mg PO DAILY enlarged prostate 03/06/25 03/18/25 06:54 History oxycodone 5 mg tablet 5 mg PO Q6 (more content not included)... Normal [facility] Ketones Test strip Ql (U)Ord ered By: Scott Nevarez on 03-18-2025 Ketones Ql (U) Negative Negative [facility] Mucus LM Ql (Urine sed)Order ed By: Scott Nevarez on 03-18-2025 Mucus Ql (Urine sed) 0 SEEN /hpf [facility] Natriuretic peptide.B prohor mark N-Terminal [Mass/volume] in Serum or PlasmaOrdered By: Scott Nevarez on 03-18-2025 Natriuretic peptide.B prohormone N-Terminal [Mass/Vol] 128 pg/mL <900 [facility] Nitrite Test strip Ql (U)Ord ered By: Scott Nevarez on 03-18-2025 Nitrite Ql (U) Positive High Negative [facility] No Panel InformationOrdered By: Jenny Live on 03-18-2025 8.0 % High 4.2-6.3 [facility] Pro- Brain NATRIURETIC PEPTI Juve 03-18-2025 Natriuretic peptide B (Bld) [Mass/Vol] 128 pg/mL Normal <=900 [facility] Comment on above: Result Comment: Hear t Failure Unlikely: < 300 pg/mL Heart Failure Likely < 50 Years: > 450 pg/mL 50-75 Years: > 900 pg/mL >75 Years: > 1800 pg/mL Performed By: #### L 500.2500, L503.7505, L300.8000, L100.0100 ####[facility] [address] [place], [place], [id number] Protein Test strip Ql (U)Ord ered By: Scott Nevarez on 03-18-2025 Protein Ql (U) 100 mg/dl High Negative [facility] Squamous epithelial cells de tection in urine sediment by light microscopyOrdered By: Scott Nevarez on 03-18-2025 Epithelial cells.squamous LM Ql (Urine sed) 0 SEEN /hpf 0-5 [facility] Stool Occult Blood iFOBon STOB Positive Normal [facility] Comment on above: Performed By: #### M 100.7900 ####[facility] [address] [place], [place], [id number] Stool gastrointestinal hemog lobin detection by immunologic methodOrdered By: Scott Nevarez on 03-18-2025 Lower GI hemoglobin IA Ql (Stl) Positive Abnormal [facility] Urinalysis, Completeon 03-18 AMORPHOUS 2+ Normal [facility] Comment on above: Order Comment: CLEAN CATCH Performed By: #### L 501.9985, L500.4050, L100.0100, L501.9520 #### [facility] [address] [place], [address] BACTERIA 3+ /hpf Normal None Seen [facility] Comment on above: Order Comment: CLEAN CATCH Performed By: #### L 501.9985, L500.4050, L100.0100, L501.9520 #### [facility] [address] [place], [address] RBC 25-50 SEEN Normal 0-5 [facility] Comment on above: Order Comment: CLEAN CATCH Performed By: #### L 501.9985, L500.4050, L100.0100, L501.9520 #### [facility] [address] [place], [address] WBC 10-25 SEEN Normal [address] [place] [address] Comment on above: Order Comment: CLEAN CATCH Performed By: #### L 501.9985, L500.4050, L100.0100, L501.9520 #### [facility] [address] [place], [address] EPI,SQUAMOUS 0 SEEN Normal 0-5 [facility] Comment on above: Order Comment: CLEAN CATCH Performed By: #### L 501.9985, L500.4050, L100.0100, L501.9520 #### [facility] [address] [place], [address] Mucus Ql (Urine sed) 0 SEEN Normal [facility] Comment on above: Order Comment: CLEAN CATCH Performed By: #### L 501.9985, L500.4050, L100.0100, L501.9520 #### [facility] [address] [place], [place], [address] Urine clarityOrdered By: Maria Ines Nevarez on 03-18-2025 Clarity (U) Cloudy Clear [facility] Urine color determinationOrd ered By: Scott Nevarez on 03-18-2025 Color (U) Yellow Yellow [facility] Urine cultureOrdered By: Dong Weinstein on 03-18-2025 Bacteria identified Cx Nom (U) Negative Abnormal [facility] Urine glucose detectionOrder ed By: Scott Nevarez on 03-18-2025 Glucose Ql (U) 100 mg/dl High Normal [facility] Urine leukocyte esterase det ection by dipstickOrdered By: Scott Nevarez on 03-18-2025 Leukocyte esterase Test strip Ql (U) 500 /ul High Negative [facility] Urine pHOrdered By: Scott gustafson on 03-18-2025 pH (U) 5.0 [pH] 5.0 - 8.0 [facility] Urine sediment bacteria coun t by microscopy (number/high power field)Ordered By: Scott Nevarez on 03-18-2025 Bacteria LM.HPF (Urine sed) [#/Area] 3 /[HPF] None Seen [facility] Urine specific gravity measu rementOrdered By: Scott Nevarez on 03-18-2025 Specific gravity (U) [Rel density] 1.020 1.002-1.03 0 [facility] Urine urobilinogen measureme ntOrdered By: Scott Nevarez on 03-18-2025 Urobilinogen Ql (U) Normal mg/dl Normal [facility] White blood cell countOrdere d By: Scott Nevarez on 03-18-2025 White blood cell count 10-25 SEEN /hpf 0-5 [facility] Bedside Glucoseon 03-17-2025 FINGERSTICK GLU 240 mg/dL High 74-106 [facility] Comment on above: Result Comment: KAE HOPPER OF PATIENT CARE PER NURSING PROTOCOL Performed By: #### L 501.9985, L500.4050, L100.0100, L501.9520 #### [facility] [address] [place], [place], [id number] FINGERSTICK GLU 150 mg/dL High 74-106 [facility] Comment on above: Result Comment: KAE GEMENT OF PATIENT CARE PER NURSING PROTOCOL Performed By: #### L 501.9985, L500.4050, L100.0100, L501.9520 #### [facility] [address] [place], [address] FINGERSTICK GLU 218 mg/dL High 74-106 [facility] Comment on above: Result Comment: KAE GEMENT OF PATIENT CARE PER NURSING PROTOCOL Performed By: #### L 501.9985, L500.4050, L100.0100, L501.9520 #### [facility] [address] [place], [address] FINGERSTICK GLU 147 mg/dL High 74-106 [facility] Comment on above: Result Comment: KAE GEMENT OF PATIENT CARE PER NURSING PROTOCOL Performed By: #### L 501.9985, L500.4050, L100.0100, L501.9520 #### [facility] [address] [place], [address] Discharge Instructionon 03-04 Discharge Instruction [facility] Medical Records Department [address] [place] [address] Instructions for Home/Discharge Instructions 03/17/25 1309 MR#: [id number] Acct: [id number] Name: JAME WALLACE Rep #: [id number] : 1965 59 From: Herbert Mane DO [...] De La Torre; Elbert Shaffer; Macario Rodriguez NP; Janette Washington; Ernst Parker; Jame Bashir Discharge [...] Referrals / Follow Up: Jenny Live NP, ELDONC [Primary Care Provider, [facility]] - Within 2 Weeks Janette Washington PA [Med Staff - [facility] Prof, Cardiology] - See Referral Note Referral Note: in 3 weeks Disposition Disposition (needs filled in before D/C Order can be placed): Home, Self Care 03/17/25 1321 Herbert Bautistadebbytaye CC: DAVID Live; DAIVD Rodriguez; Dr. Tray Herring MD; Dr. Lisa [...] MD; NICOLLE Dodge; NICOLLE Lackey Signed Normal [facility] Electrocardiogram reportOrde red By: Juvenal Cedillo on 03-17-2025 EKG study [facility] Work Phone: [phone] Glucose measurement at [facility] deOrdered By: Herbert Mane on 03-17-2025 Glucose [Mass/Vol] 240 mg/dL High 74-106 [facility] 12 Lead EKGon 03-16-2025 12 Lead EKG [facility] Cardiovascular Services [address] [place] [address] 12 Lead EKG 03/16/25 0701 MR#: [id number] Acct: [id number] Name: JAME WALLACE Rep #: [id number] : 1965 59 From: Juvenal Cedillo MD Attending Dr: Dr. Herbert Mane DO Status: A DM IN Ordering Dr: Jame Bashir DO Date: 03/16/25 Location: [facility] Sex: M C Admitted: 03/16/25 Test [...] ECGs available Confirmed by JUVENAL CEDILLO MD ([id number]), assistant production editor VAISHALI BERRY ([id number]) on 03/17/2025 7:57:19 AM Referred By: BASHIR Confirmed By: JUVENAL CEDILLO MD 03/17/25 6287 Date Juvenal Cedillo MD CC: DAVID Live; Dr. Jame Bashir DO; Dr. Herbert Mane DO Signed Normal [facility] ALLIED HEALTHon 03-16-2025 ALLIED HEALTH HNO ID: [id number] Author: MONALISA TRUONG RT(R) Service: Radiology Author Type: Technologist Type: Allied Health Filed: 03/16/2025 02:49 Note Text: Radiology Service Progress Note PATIENT NAME: Jame Wlalace DATE OF SERVICE: March 16, 2025 TIME: [...] PATIENT PRESENTS WITH AN IMPLANTABLE OR ATTACHED DISTRICT LEADER: No RADIOLOGY DEPARTMENT: General X-ray: Exam(s) Completed: Chest X-Ray PERIPHERAL IV DATA: Not applicable SIGNED BY: RT Logan(R) March 16, 2025 2:49 AM [facility] Absolute lymphocyte countOrd ered By: Jame Guzman on 03-16-2025 Lymphocytes Auto (Unsp spec) [#/Vol] 1.93 10*3/uL 0.83-4.51 [facility] Anion gap in Serum or Plasma Ordered By: Jame Guzman on 03-16-2025 Anion gap [Moles/Vol] 12 mmol/L 5-15 [facility] Automated lymphocyte count a s percentage of total leukocytesOrdered By: Jame Guzman on 03-16-2025 Lymphocytes/100 WBC Auto (Unsp spec) 24.9 % 19-41 [facility] BUN/creatinine ratioOrdered By: Jame Guzman on 03-16-2025 Urea nitrogen/Creatinine [Mass ratio] 18.0 mg/mg 03-23 [facility] Basophil percentageOrdered B y: Jame Damicoenzo on 03-16-2025 Basophils/100 WBC (Bld) 0.4 % 0-1 [facility] Bedside Glucoseon 03-16-2025 FINGERSTICK GLU 118 mg/dL High 74-106 [facility] Comment on above: Result Comment: KAE GEMENT OF PATIENT CARE PER NURSING PROTOCOL Performed By: #### L 501.080 ####[facility] [address] [place], [address] FINGERSTICK GLU 183 mg/dL High 74-106 [facility] Comment on above: Result Comment: KAE GEMENT OF PATIENT CARE PER NURSING PROTOCOL Performed By: #### L 501.080 ####[facility] [address] [place], [address] Bilirubin Test strip Ql (U)O rdered By: Jame Guzman on 03-16-2025 Bilirubin Ql (U) Negative Negative [facility] Bilirubin, totalOrdered By: Jame Guzman on 03-16-2025 Bilirubin [Mass/Vol] 0.35 mg/dL 0.00-1.30 [facility] CBC W/Diff, Automatedon 03-04 Absolute Lymph 1.93 X10 3/uL Normal 0.83-4.51 [facility] Comment on above: Performed By: #### L 501.9985, L500.4050, L100.0100, L501.9520 #### [facility] [address] [place], [address] Absolute Neut 4.4 X10 3/uL Normal 2.0-7.7 [facility] Comment on above: Performed By: #### L 501.9985, L500.4050, L100.0100, L501.9520 #### [facility] [address] [place], [address] Basophils/100 WBC (Bld) 0.4 % Normal 0-1 [facility] Comment on above: Performed By: #### L 501.9985, L500.4050, L100.0100, L501.9520 #### [facility] [address] [place], [address] Eosinophils/100 WBC (Bld) 4.3 % Normal 0-5 [facility] Comment on above: Performed By: #### L 501.9985, L500.4050, L100.0100, L501.9520 #### [facility] [address] [place], [address] Erythrocyte distribution width (RBC) [Ratio] 13.2 % Normal 11.6-14.6 [facility] Comment on above: Performed By: #### L 501.9985, L500.4050, L100.0100, L501.9520 #### [facility] [address] [place], [address] Hematocrit (Bld) [Volume fraction] 38.9 % Low 40-54 [facility] Comment on above: Performed By: #### L 501.9985, L500.4050, L100.0100, L501.9520 #### [facility] [address] [place], [address] Hemoglobin (Bld) [Mass/Vol] 12.7 g/dL Low 13.0-16.5 [facility] Comment on above: Performed By: #### L 501.9985, L500.4050, L100.0100, L501.9520 #### [facility] [address] [place], [address] IG% 0.400 Normal 0.0-0.9 [facility] Comment on above: Result Comment: IG% - Immature Granulocytes (promyelocytes, myelocytes and metamyelocytes) > 1% indicates that a LEFT SHIFT is Present. Performed By: #### L 501.9985, L500.4050, L100.0100, L501.9520 #### [facility] [address] [place], [address] Lymphocytes/100 WBC (Bld) 24.9 % Normal 19-41 [facility] Comment on above: Performed By: #### L 501.9985, L500.4050, L100.0100, L501.9520 #### [facility] [address] [place], [address] MCH (RBC) [Entitic mass] 30.8 pg Normal 27.0-32.0 [facility] Comment on above: Performed By: #### L 501.9985, L500.4050, L100.0100, L501.9520 #### [facility] [address] [place], [address] MCHC (RBC) [Mass/Vol] 32.6 g/dL Normal 32-36 [facility] Comment on above: Performed By: #### L 501.9985, L500.4050, L100.0100, L501.9520 #### [facility] [address] [place], [address] MCV (RBC) [Entitic vol] 94.2 fL High 80-94 [facility] Comment on above: Performed By: #### L 501.9985, L500.4050, L100.0100, L501.9520 #### [facility] [address] [place], [address] Monocytes/100 WBC (Bld) 13.3 % High 0-10 [facility] Comment on above: Performed By: #### L 501.9985, L500.4050, L100.0100, L501.9520 #### [facility] [address] [place], [address] Neutrophils/100 WBC (Bld) 56.7 % Normal 47-70 [facility] Comment on above: Performed By: #### L 501.9985, L500.4050, L100.0100, L501.9520 #### [facility] [address] [place], [address] Nucleated RBC (Bld) [#/Vol] 0 10*3/uL Normal 0-5 [facility] Comment on above: Performed By: #### L 501.9985, L500.4050, L100.0100, L501.9520 #### [facility] [address] [place], [address] Platelet mean volume (Bld) [Entitic vol] 11.8 fL Normal 6.2-12.0 [facility] Comment on above: Performed By: #### L 501.9985, L500.4050, L100.0100, L501.9520 #### [facility] [address] [place], [address] Platelets (Bld) [#/Vol] 204 10*3/uL Normal 150-450 [facility] Comment on above: Performed By: #### L 501.9985, L500.4050, L100.0100, L501.9520 #### [facility] [address] [place], [address] RBC (Bld) [#/Vol] 4.13 10*6/uL Low 4.6-6.2 [facility] Comment on above: Performed By: #### L 501.9985, L500.4050, L100.0100, L501.9520 #### [facility] [address] [place], [address] RDW SD 45.9 fl High 35.1-43.9 [facility] Comment on above: Performed By: #### L 501.9985, L500.4050, L100.0100, L501.9520 #### [facility] [address] [place], [address] WBC (Bld) [#/Vol] 7.7 10*3/uL Normal 4.4-11.0 [facility] Comment on above: Performed By: #### L 501.9985, L500.4050, L100.0100, L501.9520 #### [facility] [address] [place], [place], [address] Calculated very low density lipoprotein (VLDL) cholesterol measurementOrdered By: Jame Guzman on 03-16-2025 Calculated very low density lipoprotein (VLDL) cholesterol measurement 27 mg/dL 5-40 [facility] Carbon dioxide, total [Moles /volume] in Central venous bloodOrdered By: Jame Guzman on 03-16-2025 CO2 [Moles/Vol] 29.4 mmol/L 21.0-32.0 [facility] Chest 1 View (Portable)on Chest 1 View (Portable) [facility] Imaging Services [address] [place] [address] Chest 1 View (Portable) MR#: [id number] Acct: [id number] Name: JAME WALLACE A Rep #: [id number] : 1965 M 59 From: Herb Reeves MD PCP: DAVID Marina Status: ADM IN Study: Chest 1 View (Portable) Date of Exam: 03/16/25 Exam# [id number] Ordering Dr: Jame Bashir DO PROCEDURE: CHEST [...] central vascular congestion. Reading Location: [facility] CC: DAVID Live; Dr. Jame Bashir DO Director Of Marketing Communications: Signed Normal [facility] Chloride assayOrdered By: Andrea Guzman on 03-16-2025 Chloride [Moles/Vol] 99 mmol/L 98-108 [facility] Comprehensive Metabolic Prof ilon 03-16-2025 Albumin [Mass/Vol] 3.5 g/dL Normal 3.5-5.0 [facility] Comment on above: Performed By: #### L 501.9985, L500.4050, L100.0100, L501.9520 #### [facility] [address] [place], [address] Albumin/Globulin [Mass ratio] 1.2 {ratio} Normal 0.9-2.4 [facility] Comment on above: Performed By: #### L 501.9985, L500.4050, L100.0100, L501.9520 #### [facility] [address] [place], [address] ALK PHOS 82 U/L Normal 40-129 [facility] Comment on above: Performed By: #### L 501.9985, L500.4050, L100.0100, L501.9520 #### [facility] [address] [place], [address] ALT [Catalytic activity/Vol] 9 U/L Normal <=46 [facility] Comment on above: Performed By: #### L 501.9985, L500.4050, L100.0100, L501.9520 #### [facility] [address] [place], [address] AST [Catalytic activity/Vol] 15 U/L Normal <=37 [facility] Comment on above: Performed By: #### L 501.9985, L500.4050, L100.0100, L501.9520 #### [facility] [address] [place], [address] Bilirubin [Mass/Vol] 0.35 mg/dL Normal 0.00-1.30 [facility] Comment on above: Performed By: #### L 501.9985, L500.4050, L100.0100, L501.9520 #### [facility] [address] [place], [address] BUN/CRE 18.0 RATIO Normal 10-20 [facility] Comment on above: Performed By: #### L 501.9985, L500.4050, L100.0100, L501.9520 #### [facility] [address] [place], [address] Calcium [Mass/Vol] 9.1 mg/dL Normal 7.6-11.0 [facility] Comment on above: Performed By: #### L 501.9985, L500.4050, L100.0100, L501.9520 #### [facility] [address] [place], [address] Chloride [Moles/Vol] 99 mmol/L Normal 98-108 [facility] Comment on above: Performed By: #### L 501.9985, L500.4050, L100.0100, L501.9520 #### [facility] [address] [place], [address] CO2 [Moles/Vol] 29.4 mmol/L Normal 21.0-32.0 [facility] Comment on above: Performed By: #### L 501.9985, L500.4050, L100.0100, L501.9520 #### [facility] [address] [place], [address] Creatinine [Mass/Vol] 1.63 mg/dL High 0.70-1.20 [facility] Comment on above: Performed By: #### L 501.9985, L500.4050, L100.0100, L501.9520 #### [facility] [address] [place], [address] ECRCL 80.46 ml/min Normal 50-250 [facility] Comment on above: Performed By: #### L 501.9985, L500.4050, L100.0100, L501.9520 #### [facility] [address] [place], [address] GAP 12 Normal 5-15 [facility] Comment on above: Performed By: #### L 501.9985, L500.4050, L100.0100, L501.9520 #### [facility] [address] [place], [address] GFR/1.73 sq M.predicted among non-blacks MDRD (S/P/Bld) [Vol rate/Area] 49 mL/min/{1.73_m2} Low >60 [facility] Comment on above: Result Comment: mL/m in/1.73m2 CKD-EPI Creatinine Equation (2020) Performed By: #### L 501.9985, L500.4050, L100.0100, L501.9520 #### [facility] [address] [place], [address] Globulin (S) [Mass/Vol] 2.9 g/dL Normal 2.2-4.2 [facility] Comment on above: Performed By: #### L 501.9985, L500.4050, L100.0100, L501.9520 #### [facility] [address] [place], [address] Glucose [Mass/Vol] 161 mg/dL High 70-99 [facility] Comment on above: Performed By: #### L 501.9985, L500.4050, L100.0100, L501.9520 #### [facility] [address] [place], [address] Potassium [Moles/Vol] 4.4 mmol/L Normal 3.3-5.1 [facility] Comment on above: Performed By: #### L 501.9985, L500.4050, L100.0100, L501.9520 #### [facility] [address] [place], [address] Sodium [Moles/Vol] 140 mmol/L Normal 133-145 [facility] Comment on above: Performed By: #### L 501.9985, L500.4050, L100.0100, L501.9520 #### [facility] [address] [place], [address] T PROT 6.5 g/dL Normal 5.9-8.4 [facility] Comment on above: Performed By: #### L 501.9985, L500.4050, L100.0100, L501.9520 #### [facility] [address] [place], [address] Urea nitrogen [Mass/Vol] 29 mg/dL High 4-19 [facility] Comment on above: Performed By: #### L 501.9985, L500.4050, L100.0100, L501.9520 #### [facility] [address] [place], [address] Consultation - Cardiologyon 03-16-2025 Consultation - Cardiology [facility] Medical Records Department [address] [place] [address] Consultation - Cardiology 03/16/25 0724 MR#: [id number] Acct: [id number] Name: JAME WALLACE A Rep #: [id number] : 1965 59 From: Juvenal Cedillo MD PCP: DAVID Marina Status:ADM IN Location: [place] [address] Assessment Plan Assessment/Plan (1) CHF exacerbation: QUALIFIERS: [...] however he appears to have an elevated KVH3YD9-MURc score and therefore we will continue him [...] M who presents as a transfer from [facility]. The patient was apparently on admission [...] he went to the emergency room in [facility] but his insurance was not covered [...] block and a rate of 58 bpm. [facility] Medical History Diabetes Chronic pain Kidney stones [...] PO BID #18 (more content not included)... [facility] ED NOTEon 03-16-2025 ED NOTE HNO ID: [id number] Author: LUCI VILLAVICENCIO RN Service: ? Author Type: Registered Nurse Type: ED Notes Filed: 03/16/2025 04:20 Note Text: Report to [facility] ED NOTE HNO ID: [id number] Author: LUCI VILLAVICENCIO RN Service: ? Author Type: Registered Nurse Type: ED Notes Filed: 03/16/2025 04:26 Note Text: [facility] Echo Complete W/ Contraston 03-16-2025 Echo Complete W/ Contrast [facility] Cardiovascular Services [address] [place] [address] Echo Complete W/ Contrast 03/16/25 0932 MR#: [id number] Acct: [id number] Name: JAME WALLACE Rep #: [id number] : 1965 59 From: Juvenal Cedillo MD Attending Dr: Dr. Herbert Mane, Status: A DM IN Ordering Dr: Juvenal [...] JENNY LIVE Performed By: Wen Marie RCS 03/16/25 1600 Date Juvenal Cedillo MD CC: DAVID Live; Dr. Juvenal Cedillo MD; Dr. Herebrt Mane DO Date Dictated: 03/16/25931 Date Transcribed: 03/16/251599 Director Of Marketing Communications: Signed Normal [facility] Echocardiogram study reportO rdered By: Juvenal Cedillo on 03-16-2025 Study report [facility] Work Phone: Eosinophil percentageOrdered By: Jame Guzman on 03-16-2025 Eosinophils/100 WBC (Bld) 4.3 % 0-5 [facility] Erythrocyte distribution wid th ratioOrdered By: Jame Guzman on 03-16-2025 Erythrocyte distribution width (RBC) [Ratio] 13.2 % 11.6-14.6 [facility] Erythrocyte distribution wid th standard deviationOrdered By: Jame Guzman on 03-16-2025 Erythrocyte distribution width (RBC) [Ratio] 45.9 fl High 35.1-43.9 [facility] Folate [Moles/volume] in Ser um or PlasmaOrdered By: Jame Guzman on 03-16-2025 Folate [Moles/Vol] 22.00 ng/mL 4.60-34.80 [facility] Folates,Serum (Folic Acid)on 03-16-2025 FOLATES,SERUM 22.00 ng/mL Normal 4.60-34.80 [facility] Comment on above: Result Comment: Hemo lysis, Results will be affected, Requires Recollection. Performed By: #### L 506.0200 ####[facility] [address] [facility] [place], [address] Glomerular filtration rate ( GFR) estimation/1.73 sq m using serum, plasma, or whole bOrdered By: Jame Guzman on 03-16-2025 GFR/1.73 sq M.predicted among non-blacks MDRD (S/P/Bld) [Vol rate/Area] 49 mL/min/{1.73_m2} Low >60 [facility] H AND P Exam - Hospitaliston 03-16-2025 H&P Exam - Hospitalist [facility] Medical Records Department [address] [place] [address] H P Exam - Hospitalist 03/16/25 0539 MR#: [id number] Acct: [id number] Name: JAME WALLACE Rep #: [id number] : 1965 59 From: Jame Bashir DO PCP: DAVID Marina Status:ADM IN Location: [place] [address] HPI - General General Date of Admission: [...] who was transferred by patient's request from [facility] for ongoing treatment of recently diagnosed AE CHF; of uncertain type with BNP of 1,600. Mr. Wallace reports his symptoms began 3 weeks prior to admission when he was first diagnosed with AE CHF while at another local hospital ([place]) with persistent dyspnea on exertion since that time that has worsened causing him to go to [facility] as he was not covered by his [...] is expected to extend beyond 2 midnights. [facility] Medical History (Updated 03/16/25 @ 06:52 by [...] tablet 37.5 mg PO BID #180 tabs 08/22/ 5 03/10/25 Rx mirtazapine 15 mg tablet 7.5 mg (1/2 x 15 mg) PO QHS PRN 03/10/25 Rx sleep 90 days #90 tabs pioglitazone (more content not included)... Normal [facility] Hematocrit Auto (Bld) [Volum e fraction]Ordered By: Jame Guzman on 03-16-2025 Hematocrit (Bld) [Volume fraction] 38.9 % Low 40-54 [facility] Hemoglobin A1con 03-16-2025 HbA1c (Bld) [Mass fraction] 7.9 % High <=5.6 [facility] Comment on above: Result Comment: Norm al < 5.7 % Prediabetic 5.7 - 6.4 % Diabetic >or= 6.5 % Please note range changes. Performed By: #### L 501.9985, L500.4050, L100.0100, L501.9520 #### [facility] [address] [place], [place], [address] Hemoglobin A1c percentageOrd ered By: Jame Guzman on 03-16-2025 HbA1c (Bld) [Mass fraction] 7.9 % High <5.7 [facility] Hemoglobin measurementOrdere d By: Jame Guzman on 03-16-2025 Hemoglobin (Bld) [Mass/Vol] 12.7 g/dL Low 13.0-16.5 [facility] Immature granulocytes/100 WB C Auto (Bld)Ordered By: Jmae Guzman on 03-16-2025 Immature granulocytes/100 WBC (Bld) 0.400 % 0.0-0.9 [facility] Ketones Test strip Ql (U)Ord ered By: Jame Guzman on 03-16-2025 Ketones Ql (U) Negative Negative [facility] L501.4021on 03-16-2025 Trop T High Sen 27 ng/L High <=22 [facility] Comment on above: Performed By: #### L 501.9985, L500.4050, L100.0100, L501.9520 #### [facility] [address] [place], [place], [address] LDL calc ser/plasOrdered By: Jame Guzman on 03-16-2025 Cholesterol in LDL [Mass/Vol] 59 mg/dL [facility] Lipid Profileon 03-16-2025 CHOL:HDL 3.23 Normal [facility] Comment on above: Performed By: #### L 501.9985, L500.4050, L100.0100, L501.9520 #### [facility] [address] [place], [address] Cholesterol [Mass/Vol] 125 mg/dL Normal <=200 [facility] Comment on above: Result Comment: Chol esterol level, Desirable <200 mg/dL Borderline high cholesterol 200-239 mg/dL High cholesterol >=240 mg/dL Recommendations of the NCEP Adult Treatment Panel for the following risk-cutoff thresholds for the [place] population. Performed By: #### L 501.9985, L500.4050, L100.0100, L501.9520 #### [facility] [address] [place], [address] Cholesterol in HDL [Mass/Vol] 39 mg/dL Low [facility] Comment on above: Result Comment: Wendi onal Cholesterol Education Program (NCEP) guidelines: <40 mg/dL: Low HDL-cholesterol (major risk factor for CHD) >= 60 mg/dL: High HDL-cholesterol (negative risk factor for CHD) HDL-cholesterol is affected by a number of factors, e.g. smoking, exercise, hormones, sex and age. Performed By: #### L 501.9985, L500.4050, L100.0100, L501.9520 #### [facility] [address] [place], [address] Cholesterol in LDL [Mass/Vol] 59 mg/dL Normal [facility] Comment on above: Result Comment: Bord khlxsu=669-703 mg/dL Higher Xqzy=215 mg/dL or greater Friedwald Equation for LDL-C Performed By: #### L 501.9985, L500.4050, L100.0100, L501.9520 #### [facility] [address] [place], [address] Cholesterol in VLDL [Mass/Vol] 27 mg/dL Normal 5-40 [facility] Comment on above: Performed By: #### L 501.9985, L500.4050, L100.0100, L501.9520 #### [facility] [address] [place], [address] Triglyceride [Mass/Vol] 135 mg/dL Normal [facility] Comment on above: Result Comment: The drugs N-Acetylcysteine and Metamizole may falsely depress this assay. Normal range: <150 mg/dL Borderline High: 150-199 mg/dL High: 200-499 mg/dL Very High: >500 mg/dL Performed By: #### L 501.9985, L500.4050, L100.0100, L501.9520 #### [facility] [address] [place], [address] MCV (mean corpuscular volume ) determinationOrdered By: Jame Guzman on 03-16-2025 MCV (RBC) [Entitic vol] 94.2 fL High 80-94 [facility] Magnesiumon 03-16-2025 Magnesium [Mass/Vol] 1.7 mg/dL Normal 1.5-2.2 [facility] Comment on above: Performed By: #### L 501.9985, L500.4050, L100.0100, L501.9520 #### [facility] [address] [place], [address] Magnesium measurement (mass/ volume)Ordered By: Jame Guzman on 03-16-2025 Magnesium (Unsp spec) [Mass/Vol] 1.7 mg/dL 1.5-2.2 [facility] Mean corpuscular hemoglobin (MCH) determinationOrdered By: Jame Guzman on 03-16-2025 MCH (RBC) [Entitic mass] 30.8 pg 27.0-32.0 [facility] Monocyte percentageOrdered B y: Jame Guzman on 03-16-2025 Monocytes/100 WBC (Bld) 13.3 % High 0-10 [facility] Mucus LM Ql (Urine sed)Order ed By: Jame Guzman on 03-16-2025 Mucus Ql (Urine sed) RARE /hpf [facility] Natriuretic peptide.B prohor mark N-Terminal [Mass/volume] in Serum or PlasmaOrdered By: Jame Guzman on 03-16-2025 Natriuretic peptide.B prohormone N-Terminal [Mass/Vol] 966 pg/mL High <900 [facility] Neutrophil percentageOrdered By: Jame Guzman on 03-16-2025 Neutrophils/100 WBC (Bld) 56.7 % 47-70 [facility] Nitrite Test strip Ql (U)Ord ered By: Jame Guzman on 03-16-2025 Nitrite Ql (U) Positive High Negative [facility] No Panel InformationOrdered By: Jame Guzman on 03-16-2025 15 U/L <38 [facility] Phosphoruson 03-16-2025 Phosphate [Mass/Vol] 5.3 mg/dL High 2.7-4.5 [facility] Comment on above: Performed By: #### L 501.9985, L500.4050, L100.0100, L501.9520 #### [facility] [address] [place], [place], [id number] Platelet countOrdered By: Andrea Guzman on 03-16-2025 Platelets (Bld) [#/Vol] 204 10*3/uL 150-450 [facility] Potassium measurement (mass/ volume)Ordered By: Jame Guzman on 03-16-2025 Potassium (Unsp spec) [Mass/Vol] 4.4 mmol/L 3.3-5.1 [facility] Pro- Brain NATRIURETIC PEPTI Juve 03-16-2025 Natriuretic peptide B (Bld) [Mass/Vol] 966 pg/mL High <=900 [facility] Comment on above: Result Comment: Hear t Failure Unlikely: < 300 pg/mL Heart Failure Likely < 50 Years: > 450 pg/mL 50-75 Years: > 900 pg/mL >75 Years: > 1800 pg/mL Performed By: #### L 501.9985, L500.4050, L100.0100, L501.9520 #### [facility] [place], [address] Protein Test strip Ql (U)Ord ered By: Jame Guzman on 03-16-2025 Protein Ql (U) 30 mg/dl High Negative [facility] RBC Auto (Bld) [#/Vol]Ordere d By: Jame Guzman on 03-16-2025 RBC (Bld) [#/Vol] 4.13 10*6/uL Low 4.6-6.2 [facility] Serum creatinine measurement (mass/volume)Ordered By: Jame Guzman on 03-16-2025 Creatinine [Mass/Vol] 1.63 mg/dL High 0.70-1.20 [facility] Serum globulin measurementOr dered By: Jame Guzman on 03-16-2025 Globulin (S) [Mass/Vol] 2.9 g/dL 2.2-4.2 [facility] Serum glucose measurement (m ass/volume)Ordered By: Jame Guzman on 03-16-2025 Glucose [Mass/Vol] 161 mg/dL High 70-99 [facility] Serum or plasma alanine matos otransferase (ALT) measurementOrdered By: Jame Guzman on 03-16-2025 ALT [Catalytic activity/Vol] 9 U/L <47 [facility] Serum or plasma albumin daly urement (mass/volume)Ordered By: Jame Guzman on 03-16-2025 Albumin [Mass/Vol] 3.5 g/dL 3.5-5.0 [facility] Serum or plasma albumin/glob ulin mass ratioOrdered By: Jame Guzman on 03-16-2025 Albumin/Globulin [Mass ratio] 1.2 {ratio} 0.9-2.4 [facility] Serum or plasma alkaline gunjan sphatase measurementOrdered By: Jame Guzman on 03-16-2025 ALP [Catalytic activity/Vol] 82 U/L 40-129 [facility] Serum or plasma calcium daly urement (mass/volume)Ordered By: Jame Guzman on 03-16-2025 Calcium [Mass/Vol] 9.1 mg/dL 7.6-11.0 [facility] Serum or plasma cholesterol in HDL measurement (mass/volume)Ordered By: Jame Guzman on 03-16-2025 Cholesterol in HDL [Mass/Vol] 39 mg/dL Low >40 [facility] Serum or plasma cholesterol measurement (mass/volume)Ordered By: Jame Guzman on 03-16-2025 Cholesterol [Mass/Vol] 125 mg/dL <201 [facility] Serum or plasma urea nitroge n measurement (mass/volume)Ordered By: Jame Guzman on 03-16-2025 Urea nitrogen [Mass/Vol] 29 mg/dL High 4-19 [facility] Sodium levelOrdered By: Jaziel Guzman on 03-16-2025 Sodium [Moles/Vol] 140 mmol/L 133-145 [facility] Squamous epithelial cells de tection in urine sediment by light microscopyOrdered By: Jame Guzman on 03-16-2025 Epithelial cells.squamous LM Ql (Urine sed) 0-5 SEEN /hpf 0-5 [facility] TSH DL <= 0.005 mIU/L QnOrde red By: Jame Guzman on 03-16-2025 TSH Qn 1.490 uIU/mL 0.300-4.20 0 [facility] Thyroid Stim Hormone (TSH)on 03-16-2025 TSH 1.490 uIU/mL Normal 0.300-4.20 0 [facility] Comment on above: Performed By: #### L 501.9985, L500.4050, L100.0100, L501.9520 #### [facility] [address] [place], [place], [id number] Total proteinOrdered By: Bill Guzman on 03-16-2025 Protein [Mass/Vol] 6.5 g/dL 5.9-8.4 [facility] Troponin T HS 2 HRon 025 Trop T High Sen 26 ng/L High <=22 [facility] Comment on above: Performed By: #### L 499.0042 ####[facility] [address] [place], [place], [id number] Troponin T HS 4 HRon 025 Trop T High Sen 28 ng/L High <=22 [facility] Comment on above: Performed By: #### L 499.0043 ####[facility] [address] [place], [place], [id number] Troponin T.cardiac [Mass/vol ume] in Serum or Plasma by High sensitivity methodOrdered By: Jame Guzman on 03-16-2025 Troponin T.cardiac High sensitivity method [Mass/Vol] 28 ng/L High <22 [facility] Troponin T.cardiac High sensitivity method [Mass/Vol] 26 ng/L High <22 [facility] Troponin T.cardiac High sensitivity method [Mass/Vol] 27 ng/L High <22 [facility] Urinalysis complete panel (U )on 03-16-2025 Bacteria LM.HPF (Urine sed) [#/Area] Few Abnormal None Seen [facility] Comment on above: Order Comment: Speci men Type: URINE SPECIMEN Ordering Facility: [facility] Address: [address] [place] [address] Performed By: #### 2 4356-8 #### [facility] CLIA [id number] [address] STATES [facility] Bilirubin Ql (U) Normal [facility] Comment on above: Order Comment: Speci men Type: URINE SPECIMEN Ordering Facility: [facility] Address: [address] [place] [address] Result Comment: [place] r interference, unable to perform assay. Performed By: #### 2 4356-8 #### [facility] CLIA [id number] [address] Clarity (Unsp spec) Cloudy Abnormal Clear [facility] Comment on above: Order Comment: Speci men Type: URINE SPECIMEN Ordering Facility: [facility] Address: [address] [place] [address] Performed By: #### 2 4356-8 #### [facility] CLIA [id number] [address] Color (U) [place] Abnormal Yellow [facility] Comment on above: Order Comment: Speci men Type: URINE SPECIMEN Ordering Facility: [facility] Address: [address] [place] [address] Performed By: #### 2 4356-8 #### [facility] CLIA [id number] [address] Epithelial cells LM.HPF (Urine sed) [#/Area] Few [facility] Comment on above: Order Comment: Speci men Type: URINE SPECIMEN Ordering Facility: [facility] Address: [address] [place] [address] Performed By: #### 2 4356-8 #### [facility] CLIA [id number] [address] Glucose Test strip (U) [Mass/Vol] [facility] Comment on above: Order Comment: Speci men Type: URINE SPECIMEN Ordering Facility: [facility] Address: [address] [place] [address] Result Comment: [place] r interference, unable to perform assay. Performed By: #### 2 4356-8 #### [facility] CLIA [id number] [address] Hemoglobin Ql (U) [facility] Comment on above: Order Comment: Speci men Type: URINE SPECIMEN Ordering Facility: [facility] Address: [address] [place] [address] Result Comment: [place] r interference, unable to perform assay. Performed By: #### 2 4356-8 #### [facility] CLIA [id number] [address] Ketones Ql (U) [facility] Comment on above: Order Comment: Speci men Type: URINE SPECIMEN Ordering Facility: [facility] Address: [address] [place] [address] Result Comment: [place] r interference, unable to perform assay. Performed By: #### 2 4356-8 #### [facility] CLIA [id number] [address] Leukocyte esterase Test strip Ql (U) [facility] Comment on above: Order Comment: Speci men Type: URINE SPECIMEN Ordering Facility: [facility] Address: [address] [place] [address] Result Comment: [place] r interference, unable to perform assay. Performed By: #### 2 4356-8 #### [facility] CLIA [id number] [address] STATES [facility] Nitrite Ql (U) Normal [facility] Comment on above: Order Comment: Speci men Type: URINE SPECIMEN Ordering Facility: [facility] Address: [address] [place] [address] Result Comment: [place] r interference, unable to perform assay. Performed By: #### 2 4356-8 #### [facility] CLIA [id number] [address] pH (U) Normal [facility] Comment on above: Order Comment: Speci men Type: URINE SPECIMEN Ordering Facility: [facility] Address: [address] [place] [address] Result Comment: [place] r interference, unable to perform assay. Performed By: #### 2 4356-8 #### [facility] CLIA [id number] [address] Protein (U) [Mass/Vol] Normal [facility] Comment on above: Order Comment: Speci men Type: URINE SPECIMEN Ordering Facility: [facility] Address: [address] [place] [address] Result Comment: [place] r interference, unable to perform assay. Performed By: #### 2 4356-8 #### [facility] CLIA [id number] [address] RBC LM.HPF (Urine sed) [#/Area] /[HPF] Abnormal 0-3 /HPF [facility] Comment on above: Order Comment: Speci men Type: URINE SPECIMEN Ordering Facility: [facility] Address: [address] [place] [address] Performed By: #### 2 4356-8 #### [facility] CLIA [id number] [address] Specific gravity (U) [Rel density] Normal [facility] Comment on above: Order Comment: Speci men Type: URINE SPECIMEN Ordering Facility: [facility] Address: [address] [place], [place] [address] Result Comment: [place] r interference, unable to perform assay. Performed By: #### 2 4356-8 #### [facility] CLIA [id number] [address] [place] [address] [place] Urobilinogen Ql (U) Normal [facility] Comment on above: Order Comment: Speci men Type: URINE SPECIMEN Ordering Facility: [facility] Address: [address] [place] [address] Result Comment: [place] r interference, unable to perform assay. Performed By: #### 2 4356-8 #### [facility] CLIA [id number] [address] [place] [address] [place] WBC LM.HPF (Urine sed) [#/Area] 0-5 /HPF Normal 0-5 /HPF [facility] Comment on above: Order Comment: Speci men Type: URINE SPECIMEN Ordering Facility: [facility] Address: [address] [place] [address] Performed By: #### 2 4356-8 #### [facility] CLIA [id number] [address] [place] Urinalysis, Completeon 03-16 Mucus Ql (Urine sed) RARE Normal [facility] Comment on above: Order Comment: CLEAN CATCH Performed By: #### L 501.9985, L500.4050, L100.0100, L501.9520 #### [facility] [address] [place], [address] EPI,SQUAMOUS 0-5 SEEN Normal 0-5 [facility] Comment on above: Order Comment: CLEAN CATCH Performed By: #### L 501.9985, L500.4050, L100.0100, L501.9520 #### [facility] [address] [place], [address] RBC 50-100 SEEN Normal 0-5 [facility] Comment on above: Order Comment: CLEAN CATCH Performed By: #### L 501.9985, L500.4050, L100.0100, L501.9520 #### [facility] [address] [place], [address] WBC 10-25 SEEN Normal 0-5 [facility] Comment on above: Order Comment: CLEAN CATCH Performed By: #### L 501.9985, L500.4050, L100.0100, L501.9520 #### [facility] [address] [place], [address] BACTERIA 0 SEEN Normal None Seen [facility] Comment on above: Order Comment: CLEAN CATCH Performed By: #### L 501.9985, L500.4050, L100.0100, L501.9520 #### [facility] [address] [place], [address] Urine clarityOrdered By: Bill Guzman on 03-16-2025 Clarity (U) Sl. Cloudy Clear [facility] Urine color determinationOrd ered By: Jame Guzman on 03-16-2025 Color (U) Yellow Yellow [facility] Urine glucose detectionOrder ed By: Jame Guzman on 03-16-2025 Glucose Ql (U) Normal mg/dl Normal [facility] Urine leukocyte esterase det ection by dipstickOrdered By: Jame Guzman on 03-16-2025 Leukocyte esterase Test strip Ql (U) 100 /ul High Negative [facility] Urine pHOrdered By: Jame so on 03-16-2025 pH (U) 6.0 [pH] 5.0 - 8.0 [facility] Urine sediment bacteria coun t by microscopy (number/high power field)Ordered By: Jame Guzman on 03-16-2025 Bacteria LM.HPF (Urine sed) [#/Area] 0 /[HPF] None Seen [facility] Urine specific gravity measu rementOrdered By: Jame Guzman on 03-16-2025 Specific gravity (U) [Rel density] 1.010 1.002-1.03 0 [facility] Urine urobilinogen measureme ntOrdered By: Jame Guzman on 03-16-2025 Urobilinogen Ql (U) 1 mg/dl High Normal [facility] Vitamin B12on 03-16-2025 Cobalamin (Vitamin B12) [Mass/Vol] 717 pg/mL Normal 180-914 [facility] Comment on above: Performed By: #### L 501.9985, L500.4050, L100.0100, L501.9520 #### [facility] [place], [address] Vitamin B12 ser/plasOrdered By: Jame Guzman on 03-16-2025 Cobalamin (Vitamin B12) [Mass/Vol] 717 pg/mL 180-914 [facility] White blood cell (WBC) count Ordered By: Jame Guzman on 03-16-2025 WBC (Bld) [#/Vol] 7.7 10*3/uL 4.4-11.0 [facility] White blood cell countOrdere d By: Jame Guzman on 03-16-2025 White blood cell count 10-25 SEEN /hpf 0-5 [facility] XR CHEST 1V FRONTAL PORTon 1 XR [...] . IMPRESSION: Similar mild right basilar opacities/atelectasis. Director Of Marketing Communications: PAUL Transcribe Date/Time: Mar 16 2025 3:40A Dictated by : NAIMA KAUFMAN MD This examination was interpreted and the report reviewed and electronically signed by: NAIMA KAUFMAN MD on Mar 16 2025 3:43AM EST [id number] Normal [facility] ALLIED HEALTHon 03-15-2025 ALLIED HEALTH HNO ID: [id number] Author: APOLLO LY RT(R) Service: ? Author [...] PATIENT PRESENTS WITH AN IMPLANTABLE OR ATTACHED DISTRICT LEADER: No RADIOLOGY DEPARTMENT: CT; Exam(s) Completed: Abdomen/Pelvis . Anesthesia: No PERIPHERAL IV DATA: Not applicable SIGNED BY: RT Ashkan(R) March 15, 2025 11:20 PM [facility] CBC W Auto Differential pane l (Bld)on 03-15-2025 Basophils (Bld) [#/Vol] 0.06 10*3/uL Normal <0.11 [facility] Comment on above: Order Comment: Speci men Type: BLOOD SPECIMEN Ordering Facility: [facility] Address: [address] [place] [address] Performed By: #### 5 7021-8 #### [facility] CLIA [id number] [address] [place] [address] [place] Basophils/100 WBC (Bld) 0.6 % Normal [facility] Comment on above: Order Comment: Speci men Type: BLOOD SPECIMEN Ordering Facility: [facility] Address: [address] [place] [address] Performed By: #### 5 7021-8 #### [facility] CLIA [id number] [address] [place] [address] [place] Differential cell count method Nom (Bld) Auto Normal [facility] Comment on above: Order Comment: Speci men Type: BLOOD SPECIMEN Ordering Facility: [facility] Address: [address] [place] [address] Performed By: #### 5 7021-8 #### [facility] CLIA [id number] [address] [place] [address] [place] Eosinophils (Bld) [#/Vol] 0.32 10*3/uL Normal <0.46 [facility] Comment on above: Order Comment: Speci men Type: BLOOD SPECIMEN Ordering Facility: [facility] Address: [address] [place] [address] Performed By: #### 5 7021-8 #### [facility] CLIA [id number] [address] [place] Eosinophils/100 WBC (Bld) 3.3 % Normal [facility] Comment on above: Order Comment: Speci men Type: BLOOD SPECIMEN Ordering Facility: [facility] Address: [address] [place] [address] Performed By: #### 5 7021-8 #### [facility] CLIA [id number] [address] [place] Erythrocyte distribution width (RBC) [Ratio] 13.2 % Normal 11.5-15.0 [facility] Comment on above: Order Comment: Speci men Type: BLOOD SPECIMEN Ordering Facility: [facility] Address: [address] [place] [address] Performed By: #### 5 7021-8 #### [facility] CLIA [id number] [address] [place] Hematocrit (Bld) [Volume fraction] 39.8 % Normal 39.0-51.0 [facility] Comment on above: Order Comment: Speci men Type: BLOOD SPECIMEN Ordering Facility: [facility] Address: [address] [place] [address] Performed By: #### 5 7021-8 #### [facility] CLIA [id number] [address] [place] Hemoglobin (Bld) [Mass/Vol] 12.8 g/dL Low 13.0-17.0 [facility] Comment on above: Order Comment: Speci men Type: BLOOD SPECIMEN Ordering Facility: [facility] Address: [address] [place] [address] Performed By: #### 5 7021-8 #### [facility] CLIA [id number] [address] Immature granulocytes (Bld) [#/Vol] 0.03 10*3/uL Normal <0.10 [facility] Comment on above: Order Comment: Speci men Type: BLOOD SPECIMEN Ordering Facility: [facility] Address: [address] [place] [address] Performed By: #### 5 7021-8 #### [facility] CLIA [id number] [address] Immature granulocytes/100 WBC (Bld) 0.3 % Normal [facility] Comment on above: Order Comment: Speci men Type: BLOOD SPECIMEN Ordering Facility: [facility] Address: [address] [place] [address] Performed By: #### 5 7021-8 #### [facility] CLIA [id number] [address] Lymphocytes (Bld) [#/Vol] 2.08 10*3/uL Normal 1.00-4.00 [facility] Comment on above: Order Comment: Speci men Type: BLOOD SPECIMEN Ordering Facility: [facility] Address: [address] [place] [address] Performed By: #### 5 7021-8 #### [facility] CLIA [id number] [address] Lymphocytes/100 WBC (Bld) 21.4 % Normal [facility] Comment on above: Order Comment: Speci men Type: BLOOD SPECIMEN Ordering Facility: [facility] Address: [address] [place] [address] Performed By: #### 5 7021-8 #### [facility] CLIA [id number] [address] [place] MCH (RBC) [Entitic mass] 30.6 pg Normal 26.0-34.0 [facility] Comment on above: Order Comment: Speci men Type: BLOOD SPECIMEN Ordering Facility: [facility] Address: [address] [place] [address] Performed By: #### 5 7021-8 #### [facility] CLIA [id number] [address] MCHC (RBC) [Mass/Vol] 32.2 g/dL Normal 30.5-36.0 [facility] Comment on above: Order Comment: Speci men Type: BLOOD SPECIMEN Ordering Facility: [facility] Address: [address] [place] [address] Performed By: #### 5 7021-8 #### [facility] CLIA [id number] [address] MCV (RBC) [Entitic vol] 95.2 fL Normal 80.0-100.0 [facility] Comment on above: Order Comment: Speci men Type: BLOOD SPECIMEN Ordering Facility: [facility] Address: [address] [place] [address] Performed By: #### 5 7021-8 #### [facility] CLIA [id number] [address] [place] [address] [place] Monocytes (Bld) [#/Vol] 1.21 10*3/uL High <0.87 [facility] Comment on above: Order Comment: Speci men Type: BLOOD SPECIMEN Ordering Facility: [facility] Address: [address] [place] [address] Performed By: #### 5 7021-8 #### [facility] CLIA [id number] [address] Monocytes/100 WBC (Bld) 12.4 % Normal [facility] Comment on above: Order Comment: Speci men Type: BLOOD SPECIMEN Ordering Facility: [facility] Address: [address] [place] [address] Performed By: #### 5 7021-8 #### [facility] CLIA [id number] [address] [place] Neutrophils (Bld) [#/Vol] 6.02 10*3/uL Normal 1.45-7.50 [facility] Comment on above: Order Comment: Speci men Type: BLOOD SPECIMEN Ordering Facility: [facility] Address: [address] [place] [address] Performed By: #### 5 7021-8 #### [facility] CLIA [id number] [address] Neutrophils/100 WBC (Bld) 62.0 % Normal [facility] Comment on above: Order Comment: Speci men Type: BLOOD SPECIMEN Ordering Facility: [facility] Address: [address] [place] [address] Performed By: #### 5 7021-8 #### [facility] CLIA [id number] [address] [place] Nucleated RBC (Bld) [#/Vol] 10*3/uL Normal <0.01 [facility] Comment on above: Order Comment: Speci men Type: BLOOD SPECIMEN Ordering Facility: [facility] Address: [address] [place] [address] Performed By: #### 5 7021-8 #### [facility] CLIA [id number] [address] Nucleated RBC/100 WBC (Bld) [Ratio] 0.0 /100 WBC Normal [facility] Comment on above: Order Comment: Speci men Type: BLOOD SPECIMEN Ordering Facility: [facility] Address: [address] [place] [address] Performed By: #### 5 7021-8 #### [facility] CLIA [id number] [address] [place] Platelet mean volume (Bld) [Entitic vol] 11.2 fL Normal 9.0-12.7 [facility] Comment on above: Order Comment: Speci men Type: BLOOD SPECIMEN Ordering Facility: [facility] Address: [address] [place] [address] Performed By: #### 5 7021-8 #### [facility] CLIA [id number] [address] [place] [address] [place] Platelets (Bld) [#/Vol] 233 10*3/uL Normal 150-400 [facility] Comment on above: Order Comment: Speci men Type: BLOOD SPECIMEN Ordering Facility: [facility] Address: [address] [place], [place] [address] Performed By: #### 5 7021-8 #### [facility] CLIA [id number] [address] RBC (Bld) [#/Vol] 4.18 10*6/uL Low 4.20-6.00 [facility] Comment on above: Order Comment: Speci men Type: BLOOD SPECIMEN Ordering Facility: [facility] Address: [address] [place] [address] Performed By: #### 5 7021-8 #### [facility] CLIA [id number] [address] WBC (Bld) [#/Vol] 9.72 10*3/uL Normal 3.70-11.00 [facility] Comment on above: Order Comment: Speci men Type: BLOOD SPECIMEN Ordering Facility: [facility] Address: [address] [place] [address] Performed By: #### 5 7021-8 #### [facility] CLIA [id number] [address] FLANK WO IVCONon 03-15-20 CT FLANK WO IVCON * * *Final Report* * * DATE OF EXAM: Mar 15 2025 11:20PM [facility] [place] IVCON / [...] stent. No hydronephrosis. 2. Nonobstructive right nephrolithiasis. Director Of Marketing Communications: [facility] Transcribe Date/Time: Mar 16 2025 1:17A Dictated by : ENID ARIAS MD This examination was interpreted and the report reviewed and electronically signed by: ENID ARIAS MD on Mar 16 2025 1:28AM EST [id number] Normal [facility] Comprehensive metabolic 2000 panelon 03-15-2025 Albumin [Mass/Vol] 3.9 g/dL Normal 3.9-4.9 [facility] Comment on above: Order Comment: Lucas olson Type: BLOOD SPECIMEN Ordering Facility: [facility] Address: [address] [place] [address] Performed By: #### 3 040-3, 93588-8, 70537-7 #### [facility] CLIA [id number] [address] [place] [address] [place] ALP [Catalytic activity/Vol] 97 U/L Normal 38-113 [facility] Comment on above: Order Comment: Lucas olson Type: BLOOD SPECIMEN Ordering Facility: [facility] Address: [address] [place] [address] Performed By: #### 3 040-3, 18730-7, 58357-2 #### [facility] CLIA [id number] [address] STATES [facility] ALT [Catalytic activity/Vol] 10 U/L Normal 10-54 [facility] Comment on above: Order Comment: Speci men Type: BLOOD SPECIMEN Ordering Facility: [facility] Address: [address] [place] [address] Performed By: #### 3 040-3, 12788-9, 47930-5 #### [facility] CLIA [id number] [address] [place] [address] [place] Anion gap [Moles/Vol] 8 mmol/L Normal 8-15 [facility] Comment on above: Order Comment: Speci men Type: BLOOD SPECIMEN Ordering Facility: [facility] Address: [address] [place] [address] Performed By: #### 3 040-3, 33980-7, #### [facility] CLIA [id number] [address] STATES [facility] AST [Catalytic activity/Vol] 27 U/L Normal 14-40 [facility] Comment on above: Order Comment: Speci men Type: BLOOD SPECIMEN Ordering Facility: [facility] Address: [address] [place] [address] Performed By: #### 3 040-3, 69220-5, #### [facility] CLIA [id number] [address] [place] [address] [place] Bilirubin [Mass/Vol] 0.4 mg/dL Normal 0.2-1.3 [facility] Comment on above: Order Comment: Speci men Type: BLOOD SPECIMEN Ordering Facility: [facility] Address: [address] [place] [address] Performed By: #### 3 040-3, 03274-7, 47883-0 #### [facility] CLIA [id number] [address] [place] Calcium [Mass/Vol] 9.2 mg/dL Normal 8.5-10.2 [facility] Comment on above: Order Comment: Speci men Type: BLOOD SPECIMEN Ordering Facility: [facility] Address: [address] [place] [address] Performed By: #### 3 040-3, 81191-1, 24305-3 #### [facility] CLIA [id number] [address] [place] [address] [place] Chloride [Moles/Vol] 98 mmol/L Normal 98-107 [facility] Comment on above: Order Comment: Speci men Type: BLOOD SPECIMEN Ordering Facility: [facility] Address: [address] [place] [address] Performed By: #### 3 040-3, 33363-5, #### [facility] CLIA [id number] [address] [place] [address] [place] CO2 [Moles/Vol] 33 mmol/L High 22-30 [facility] Comment on above: Order Comment: Speci men Type: BLOOD SPECIMEN Ordering Facility: [facility] Address: [address] [place] [address] Performed By: #### 3 040-3, 60224-8, 88564-3 #### [facility] CLIA [id number] [address] [place] [address] [place] Creatinine [Mass/Vol] 1.65 mg/dL High 0.73-1.22 [facility] Comment on above: Order Comment: Speci men Type: BLOOD SPECIMEN Ordering Facility: [facility] Address: [address] [place] [address] Performed By: #### 3 040-3, 00592-9, 01039-7 #### [facility] CLIA [id number] [address] [place] [address] [place] eGFRcr SerPlBld CKD-EPI 2020 48 mL/min/1.73m??? Low >=60 [facility] Comment on above: Order Comment: Speci men Type: BLOOD SPECIMEN Ordering Facility: [facility] Address: [address] [place] [address] Result Comment: Delaney mated Glomerular Filtration Rate [...] actual GFR. Performed By: #### 3 040-3, 62934-4, 57023-4 #### [facility] CLIA [id number] [address] [place] [address] [place] Glucose [Mass/Vol] 152 mg/dL High 74-99 [facility] Comment on above: Order Comment: Lucas olson Type: BLOOD SPECIMEN Ordering Facility: [facility] Address: [address] [place] [address] Result Comment: The [place] Diabetes Association (ADA) provides guidance for cutoff [...] Standards of Medical Care in Diabetes 2016, [place] [employer] Association. Diabetes Care. 2016.39(Suppl 1). Performed By: #### 3 040-3, 35816-1, 03644-4 #### [facility] CLIA [id number] [address] [place] [address] [place] Potassium [Moles/Vol] 4.7 mmol/L Normal 3.7-5.1 [facility] Comment on above: Order Comment: Lucas olson Type: BLOOD SPECIMEN Ordering Facility: [facility] Address: [address] [place] [address] Performed By: #### 3 040-3, 06749-4, 88405-6 #### [facility] CLIA [id number] [address] [place] [address] [place] Protein [Mass/Vol] 7.2 g/dL Normal 6.3-8.0 [facility] Comment on above: Order Comment: Speci men Type: BLOOD SPECIMEN Ordering Facility: [facility] Address: [address] [place] [address] Performed By: #### 3 040-3, 23793-3, 57719-6 #### [facility] CLIA [id number] [address] [place] Sodium [Moles/Vol] 139 mmol/L Normal 136-144 [facility] Comment on above: Order Comment: Speci men Type: BLOOD SPECIMEN Ordering Facility: [facility] Address: [address] [place] [address] Performed By: #### 3 040-3, 03077-7, 86607-5 #### [facility] CLIA [id number] [address] [place] Urea nitrogen [Mass/Vol] 26 mg/dL High 9-24 [facility] Comment on above: Order Comment: Speci men Type: BLOOD SPECIMEN Ordering Facility: [facility] Address: [address] [place] [address] Performed By: #### 3 040-3, 26996-3, 17780-4 #### [facility] CLIA [id number] [address] OF [facility] ED NOTEon 03-15-2025 ED NOTE HNO ID: [id number] Author: LUCI VILLAVICENCIO RN Service: ? Author Type: Registered Nurse Type: ED Notes Filed: 03/15/2025 23:26 Note Text: Provided Pt with urinal and informed him UA is needed [facility] ED NOTE HNO ID: [id number] Author: PEDRO VILLASEÑOR, SJ Service: ? Author Type: Registered Nurse Type: ED Notes Filed: 03/15/2025 22:43 Note Text: 50mcg fentanyl, 4mg zofran, 250ml ivf given in ems. [facility] ED PROV NOTEon 03-15-2025 ED PROV NOTE HNO ID: [id number] Author: JANETTE MCNAMARA DO Service: Emergency Medicine [...] EMS. Patient notes he was just at [facility] for kidney stone and had a stent placed on the right side. He states he has been doing fairly well. He states he took an oxycodone around 1600 and it helped with then his pain got much worse about 1.5 hours ago. Patient states he asked EMS to take him back to [facility] but they could not. 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 Hemoglobin 12.8. Lipase slight low at 111. CMP shows mild BHAVYA with BUN of 26 creatinine 1.65. [facility] Mar 16, [address] [...] right ureteral stent placed last Sunday at [facility] for kidney stone. On exam, he [...] or g (more content not included)... Normal [facility] Lipase SerPl-cCncon 03-15-20 25 Lipase [Catalytic activity/Vol] 111 U/L High 16-61 [facility] Comment on above: Order Comment: Speci [facility] Type: BLOOD SPECIMEN Ordering Facility: [facility] Address: [address] [place] [address] Performed By: #### 3 040-3, 17691-4, 38526-5 #### [facility] CLIA [id number] [address] OF [facility] NT-proBNP [facility]-ncon 03-15 Natriuretic peptide.B prohormone N-Terminal [Mass/Vol] 1620 pg/mL High <125 [facility] Comment on above: Order Comment: Speci [facility] Type: BLOOD SPECIMEN Ordering Facility: [facility] Address: [address] [place] [address] Performed By: #### 3 040-3, 19933-1, 30530-5 #### [facility] CLIA [id number] [address] OF [place] Bedside Glucoseon 03-11-2025 FINGERSTICK GLU 154 mg/dL High 74-106 [facility] Comment on above: Result Comment: KAE HOPPER OF PATIENT CARE PER NURSING PROTOCOL Performed By: #### L 501.9985, L500.4050, L100.0100, L501.9520 #### [facility] [address] [facility] [place], [address] Discharge Instructionon Discharge Instruction [facility] Medical Records Department [address] [place] [address] Instructions for Home/Discharge Instructions 03/11/25 1036 MR#: [id number] Acct: [id number] Name: JAME WALLACE Rep #: [id number] : 1965 59 From: Edmundo Wiggins MD [...] Up With: Edmundo Wiggins MD When: Call [phone] for an appointment Test Results: Test results from this visit will be discussed in further detail at your follow-up appointment, if applicable. Discharge Plan Admission Primary Reason for Your Visit: right kidney stone Attending Provider: Edmundo Wiggins Primary Care Provider: Jenny Live NP Instructions Print Language: Brazilian Discharge Orders/Prescriptions Prescriptions: New cephalexin 500 mg [...] - Active Staff, Urology] Jenny Live NP, BRUSH WASHER-C [Primary Care Provider, Family Practice] Disposition Disposition (needs filled in before D/C Order can be placed): Home, Self Care 03/11/25 1037 Edmundo Wiggins MD CC: BRUSH WASHER-C Jenny Live Signed Normal [facility] Gl[facility] at [facility] deOrdered By: Edmundo Wiggins on 03-11-2025 Glucose [Mass/Vol] 154 mg/dL High 74-106 [facility] Comment on above: MANAGEMENT OF PATIEN T CARE PER NURSING PROTOCOL MR/POSTOP.ANEon 03-11-2025 MR/POSTOP.ANE [facility] Medical Records Department [address] [place] [address] Anesthesia Postop Eval I 03/11/25 1243 MR#: [id number] Acct: [id number] Name: JAME WALLACE Rep #: [id number] : 1965 59 From: Ralph Medina CRNA PCP: ELDON MarinaC Status:DIOR Bentley Race: C Location: [facility] Anesthesia: Postop Eval I Current Vital Signs [...] CRNA Cosigner Signature: Date CC: Signed Normal [facility] MR/[id number] 03-11-2025 MR/POSTOPAN2 [facility] Medical Records Department [address] [place] [address] Anesthesia Postop Eval II 03/11/25 1230 MR#: [id number] Acct: [id number] Name: JAME WALLACE Rep #: [id number] : 1965 59 From: Roman Pichardo MD PCP: ELDON MarinaC Status:DIOR Bentley Race: C Location: [facility] [place] Anesthesia Postop Eval I Sum Anesthesia Postop [...] Roman Vera Signature: Date CC: Signed Normal [facility] Operative Reporton 5 Operative Report [facility] Medical Records Department [address] [place] [address] Operative Report 03/11/25 1037 MR#: [id number] Acct: [id number] Name: JAME AWLLACE Rep #: [id number] : 1965 59 From: Edmundo Wiggins MD PCP: DAVID Marina Status:[facility] Location: [place] [address] Operative Report (Standard) Operative Information Date of Procedure: 03/11/25 Pre-Operative Diagnosis: Right kidney stone Post-Operative Diagnosis: The same Surgery/Procedure Performed: Cystoscopy right ureteroscopy laser lithotripsy of stone and right stent placement, right retrograde pyelogram call out operator: No Type of Anesthesia: General RN Documented [...] fashion within the bladder with a 21 Welsh rigid cystourethroscope cannulated the right ureter orifice with a Glidewire and a Pollick catheter performed a retrograde pyelogram, and then after this to put a wire up into the right kidney over the wire I went in with a 8 Welsh flexible Olympus ureteroscope was able to get [...] Live; Dr. Edmundo Wiggins MD Signed Normal [facility] 03-10-2025 [facility] HNO ID: [id number] Author: TONY MOY RT(R) Service: ? Author Type: Technologist [...] PATIENT PRESENTS WITH AN IMPLANTABLE OR ATTACHED DISTRICT LEADER: No RADIOLOGY DEPARTMENT: General X-ray: Exam(s) Completed: Chest X-Ray Upper Extremity X-Ray(s): Elbow, right PERIPHERAL IV DATA: Not applicable SIGNED BY: RT Javier(R) March 10, 2025 5:53 PM Normal [facility] HNO ID: [id number] Author: JUNE WESTFALL CT Service: Radiology Author [...] PATIENT PRESENTS WITH AN IMPLANTABLE OR ATTACHED DISTRICT LEADER: No RADIOLOGY DEPARTMENT: CT; Exam(s) Completed: Brain and CSP, LSP. Anesthesia: No PERIPHERAL IV DATA: Not applicable SIGNED BY: BOBBI Patel March 10, 2025 5:34 PM Normal [facility] CBC panel Auto (Bld)on 03-10 Erythrocyte distribution width (RBC) [Ratio] 13.4 % Normal 11.5-15.0 [facility] Comment on above: Order Comment: Speci men Type: BLOOD SPECIMENOrdering Facility: [facility] Address: [address] [place] [address] Performed By: #### 5 8410-2 ####[facility] [id number] [place] [address] [place] [facility] Hematocrit (Bld) [Volume fraction] 40.0 % Normal 39.0-51.0 [facility] Comment on above: Order Comment: Speci men Type: BLOOD SPECIMENOrdering Facility: [facility] Address: [address] [place] [address] Performed By: #### 5 8410-2 ####[facility] [id number] [place] [address] [facility] Hemoglobin (Bld) [Mass/Vol] 12.6 g/dL Low 13.0-17.0 [facility] Comment on above: Order Comment: Speci men Type: BLOOD SPECIMENOrdering Facility: [facility] Address: [address] [place] [address] Performed By: #### 5 8410-2 ####[facility] LABCLIA [id number] [place] [address] [facility] MCH (RBC) [Entitic mass] 30.1 pg Normal 26.0-34.0 [facility] Comment on above: Order Comment: Speci men Type: BLOOD SPECIMENOrdering Facility: [facility] Address: [address] [place] [address] Performed By: #### 5 8410-2 ####[facility] LABCLIA [id number] [place] [address] [place] MCHC (RBC) [Mass/Vol] 31.5 g/dL Normal 30.5-36.0 [facility] Comment on above: Order Comment: Speci men Type: BLOOD SPECIMENOrdering Facility: [facility] Address: [address] [place] [address] Performed By: #### 5 8410-2 ####[facility] LABCLIA [id number] [place] [address] [place] MCV (RBC) [Entitic vol] 95.7 fL Normal 80.0-100.0 [facility] Comment on above: Order Comment: Speci men Type: BLOOD SPECIMENOrdering Facility: [facility] Address: [address] [place] [address] Performed By: #### 5 8410-2 ####[facility] [id number] [place] [address] [place] Platelet mean volume (Bld) [Entitic vol] 11.2 fL Normal 9.0-12.7 [facility] Comment on above: Order Comment: Speci men Type: BLOOD SPECIMENOrdering Facility: [facility] Address: [address] [place] [address] Performed By: #### 5 8410-2 ####[facility] [id number] [place] [address] [place] Platelets (Bld) [#/Vol] 233 10*3/uL Normal 150-400 [facility] Comment on above: Order Comment: Speci men Type: BLOOD SPECIMENOrdering Facility: [facility] Address: [address] [place] [address] Performed By: #### 5 8410-2 ####[facility] [id number] [place] [address] [place] RBC (Bld) [#/Vol] 4.18 10*6/uL Low 4.20-6.00 [facility] Comment on above: Order Comment: Speci men Type: BLOOD SPECIMENOrdering Facility: [facility] Address: [address] [place] [address] Performed By: #### 5 8410-2 ####[facility] [id number] [place] [address] [place] WBC (Bld) [#/Vol] 9.73 10*3/uL Normal 3.70-11.00 [facility] Comment on above: Order Comment: Speci men Type: BLOOD SPECIMENOrdering Facility: [facility] Address: [address] [place] [address] Performed By: #### 5 8410-2 ####[facility] [id number] [place] [address] [place] [address] BRAIN WO IVCONon 03-10-20 CT BRAIN WO IVCON * * *Final Report* * * DATE OF EXAM: Mar 10 2025 5:33PM [facility] 0504 - CT BRAIN WO IVCON / [...] (DLP) for this visit = 795.48 (accession [id number]), 529.16 (accession [id number]), 1179.18 (accession [id number]) mGy*cm. CT Dose Reduction Employed: No dose reduction techniques were required (accession [id number]), Automated exposure control(AEC) and iterative recon (accession [id number]), Automated exposure control(AEC) and iterative recon (accession [id number]) Comparison: None available Limitations: 10/03/2021, 02/07/2025 RESULT: DISULFURIZER TENDER: No additional findings. HEAD: Post-operative change: None. Acute change: No acute intracranial hemorrhage identified. Mass effect / Mass lesion: No mass effect, midline shift or extra-axial fluid collection identified. Chronic change: None. Ventricles: Within normal limits for age. Paranasal sinuses: Well aerated. Other: Included bones and soft tissues are otherwise generally unremarkable. CERVICAL SPINE: Cooking Instructor (topogram) images: No additional findings. Counting reference: [...] ureter. Details and incidental findings as discussed. Director Of Marketing Communications: PAUL Transcribe Date/Time: Mar 10 2025 6:00P Dictated by : BONY COOPER MD This examination was interpreted and the report reviewed and electronically signed by: BONY COOPER MD on Mar 10 2025 6:10PM EST [id number] Normal [facility] CT CERVICAL SPINE WO IVCONon 03-10-2025 CT CERVICAL SPINE WO IVCON * * *Final Report* * * DATE OF EXAM: Mar 10 2025 5:33PM [facility] 0505 - CT CERVICAL SPINE WO IVCON [...] (DLP) for this visit = 795.48 (accession [id number]), 529.16 (accession [id number]), 1179.18 (accession [id number]) mGy*cm. CT Dose Reduction Employed: No dose reduction techniques were required (accession [id number]), Automated exposure control(AEC) and iterative recon (accession [id number]), Automated exposure control(AEC) and iterative recon (accession [id number]) Comparison: None available Limitations: 10/03/2021, 02/07/2025 RESULT: DISULFURIZER TENDER: No additional findings. HEAD: Post-operative change: None. Acute change: No acute intracranial hemorrhage identified. Mass effect / Mass lesion: No mass effect, midline shift or extra-axial fluid collection identified. Chronic change: None. Ventricles: Within normal limits for age. Paranasal sinuses: Well aerated. Other: Included bones and soft tissues are otherwise generally unremarkable. CERVICAL SPINE: Cooking Instructor (topogram) images: No additional findings. Counting reference: [...] ureter. Details and incidental findings as discussed. Director Of Marketing Communications: PSCB Transcribe Date/Time: Mar 10 2025 6:00P Dictated by : BONY COOPER MD This examination was interpreted and the report reviewed and electronically signed by: BONY COOPER MD on Mar 10 2025 6:10PM EST [id number] Normal [facility] CT LUMBAR SPINE WO IVCONon 1 CT LUMBAR SPINE WO IVCON * * *Final Report* * * DATE OF EXAM: Mar 10 2025 5:33PM [facility] 0508 - CT LUMBAR SPINE WO IVCON [...] (DLP) for this visit = 795.48 (accession [id number]), 529.16 (accession [id number]), 1179.18 (accession [id number]) mGy*cm. CT Dose Reduction Employed: No dose reduction techniques were required (accession [id number]), Automated exposure control(AEC) and iterative recon (accession [id number]), Automated exposure control(AEC) and iterative recon (accession [id number]) Comparison: None available Limitations: 10/03/2021, 02/07/2025 RESULT: DISULFURIZER TENDER: No additional findings. HEAD: Post-operative change: None. Acute change: No acute intracranial hemorrhage identified. Mass effect / Mass lesion: No mass effect, midline shift or extra-axial fluid collection identified. Chronic change: None. Ventricles: Within normal limits for age. Paranasal sinuses: Well aerated. Other: Included bones and soft tissues are otherwise generally unremarkable. CERVICAL SPINE: Cooking Instructor (topogram) images: No additional findings. Counting reference: [...] ureter. Details and incidental findings as discussed. Director Of Marketing Communications: PAUL Transcribe Date/Time: Mar 10 2025 6:00P Dictated by : BONY COOPER MD This examination was interpreted and the report reviewed and electronically signed by: BONY COOPER MD on Mar 10 2025 6:10PM EST [id number] Normal [facility] Comprehensive metabolic 2000 panelon 03-10-2025 Albumin [Mass/Vol] 3.8 g/dL Low 3.9-4.9 [facility] Comment on above: Order Comment: Speci men Type: BLOOD SPECIMENOrdering Facility: [facility] Address: [address] [place], [place] [address] [address] Performed By: #### 2 4323-8, 29685-8, 60695-9, 3040-3 ####[facility] [id number] [address] OF [facility] ALP [Catalytic activity/Vol] 90 U/L Normal 38-113 [facility] Comment on above: Order Comment: Speci men Type: BLOOD SPECIMENOrdering Facility: [facility] Address: [address] [place] [address] Performed By: #### 2 4323-8, 14125-3, 01450-1, 3040-3 ####[facility] LABCLIA [id number] [facility] [address] [place] [facility] ALT With P-5'-P [Catalytic activity/Vol] 14 U/L Normal 10-54 [facility] Comment on above: Order Comment: Speci men Type: BLOOD SPECIMENOrdering Facility: [facility] Address: [address] [place] [address] Performed By: #### 2 4323-8, 34883-0, 50721-4, 3040-3 ####[facility]IA [id number] [place] [address] [place] [facility] Anion gap [Moles/Vol] 12 mmol/L Normal 8-15 [facility] Comment on above: Order Comment: Speci men Type: BLOOD SPECIMENOrdering Facility: [facility] Address: [address] [place] [address] Performed By: #### 2 4323-8, 17125-9, 09642-6, 3040-3 ####[facility]IA [id number] [facility] [place] [address] [facility] AST With P-5'-P [Catalytic activity/Vol] 20 U/L Normal 14-40 [facility] Comment on above: Order Comment: Speci men Type: BLOOD SPECIMENOrdering Facility: [facility] Address: [address] [place] [address] Performed By: #### 2 4323-8, 23754-4, 59657-3, 3040-3 ####[facility] LABCLIA [id number] [facility] [address] [place] [facility] Bilirubin [Mass/Vol] 0.4 mg/dL Normal 0.2-1.3 [facility] Comment on above: Order Comment: Speci men Type: BLOOD SPECIMENOrdering Facility: [facility] [facility] Address: [address] [place] [address] Performed By: #### 2 4323-8, 91737-4, 52322-0, 3040-3 ####[facility] LABCLIA [id number] [facility] [place] [address] [place] Calcium [Mass/Vol] 9.1 mg/dL Normal 8.5-10.2 [facility] Comment on above: Order Comment: Speci men Type: BLOOD SPECIMENOrdering Facility: [facility] Address: [address] [place] [address] Performed By: #### 2 4323-8, 29830-7, 59420-4, 3040-3 ####[facility] LABCLIA [id number] [facility] [place] [address] [place] Chloride [Moles/Vol] 99 mmol/L Normal 98-107 [facility] Comment on above: Order Comment: Speci men Type: BLOOD SPECIMENOrdering Facility: [facility] Address: [address] [place] [address] Performed By: #### 2 4323-8, 92662-7, 72479-3, 3040-3 ####[facility] LABCLIA [id number] [facility] [place] [address] [place] CO2 [Moles/Vol] 27 mmol/L Normal 22-30 [facility] Comment on above: Order Comment: Speci men Type: BLOOD SPECIMENOrdering Facility: [facility] Address: [address] [place], [place] [address] Performed By: #### 2 4323-8, 87373-0, 84259-2, 3040-3 ####[facility] LABCLIA [id number] [place] [address] [place] Creatinine [Mass/Vol] 1.36 mg/dL High 0.73-1.22 [facility] Comment on above: Order Comment: Lucas olson Type: BLOOD SPECIMENOrdering Facility: [facility] Address: [address] [place] [address] Performed By: #### 2 4323-8, 03210-4, 98480-5, 3040-3 ####[facility] LABCLIA [id number] [place] [address] [place] eGFRcr SerPlBld CKD-EPI 2020 60 mL/min/1.73m??? Normal >=60 [facility] Comment on above: Order Comment: Lucas wesley Type: BLOOD SPECIMENOrdering Facility: [facility] Address: [address] [place] [address] Result Comment: Delaney mated Glomerular Filtration Rate [...] actual GFR. Performed By: #### 2 4323-8, 21585-4, 12537-6, 3040-3 ####[facility] LABCLIA [id number] [place] [address] [place] Glucose [Mass/Vol] 176 mg/dL High 74-99 [facility] Comment on above: Order Comment: Lucas wesley Type: BLOOD SPECIMENOrdering Facility: [facility] Address: [address] [place] [address] Result Comment: The [place] Diabetes Association (ADA) provides guidance for cutoff [...] Standards of Medical Care in Diabetes 2016, [place] Diabetes Association. Diabetes Care. 2016.39(Suppl 1). Performed By: #### 2 4323-8, 47854-2, 28031-7, 3040-3 ####[facility] LABCLIA [id number] [place] [address] [place] Potassium [Moles/Vol] 4.0 mmol/L Normal 3.7-5.1 [facility] Comment on above: Order Comment: Lucas olson Type: BLOOD SPECIMENOrdering Facility: [facility] Address: [address] [place], [place] [address] Performed By: #### 2 4323-8, 53503-4, 63664-0, 3040-3 ####[facility] LABCLIA [id number] [place] [address] [place] Protein [Mass/Vol] 6.7 g/dL Normal 6.3-8.0 [facility] Comment on above: Order Comment: Lucas olson Type: BLOOD SPECIMENOrdering Facility: [facility] Address: [address] [place], [place] [address] Performed By: #### 2 4323-8, 29190-6, 86820-4, 3040-3 ####[facility] LABCLIA [id number] [place] [address] [place] Sodium [Moles/Vol] 138 mmol/L Normal 136-144 [facility] Comment on above: Order Comment: Lucas men Type: BLOOD SPECIMENOrdering Facility: [facility] Address: [address] [place] [address] Performed By: #### 2 4323-8, 95059-3, 96578-8, 3040-3 ####[facility] LABCLIA [id number] [place] [address] [place] Urea nitrogen [Mass/Vol] 18 mg/dL Normal 9-24 [facility] Comment on above: Order Comment: Phuci men Type: BLOOD SPECIMENOrdering Facility: [facility] Address: [address] [place], [place] [address], [place] [address] Performed By: #### 2 4323-8, 22874-9, 04544-9, 3040-3 ####[facility] LABCLIA [id number] [place] [address] [facility] D dimer FEU PPP-mCncon 03-10 Fibrin D-dimer FEU (PPP) [Mass/Vol] 380 ng/mL FEU Normal <500 [facility] Comment on above: Order Comment: Speci men Type: BLOOD SPECIMENOrdering Facility: [facility] Address: [address] [place], [place] [address] [id number] Performed By: #### 4 8065-7, 44526-6, 37458-4 ####[facility] LABCLIA [id number] [place] [address] [facility] ED NOTEon 03-10-2025 ED NOTE HNO ID: [id number] Author: MALIKA KLINE RN Service: ? Author [...] anything else to help you? No Normal [facility] ED NOTE HNO ID: [id number] Author: MANDO RINCON RN Service: Nursing Author Type: Registered Nurse Type: ED Notes Filed: 03/10/2025 21:39 Note Text: Pt verbalizes understanding of discharge instructions. Pt able to ambulate out of ED. Normal [facility] ED NOTE HNO ID: [id number] Author: MANDO RINCON RN Service: Nursing Author [...] neck pain, shoulder, and knee pain. 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 Mental (more content not included)... Normal [facility] EKGon 03-10-2025 Electrocardiogram Ventricular Rate : 7 2 BPM Atrial Rate : 72 BPM P-R Interval : 132 ms QRS Duration : 142 ms Q-T Interval : 438 ms QTC Calculation(Bazett) : 479 ms Calculated P [place] : 5 degrees Calculated R [place] : -15 degrees Calculated T [place] : 1 degrees NORMAL SINUS RHYTHM RIGHT BUNDLE BRANCH BLOCK consistent with previous tracing ABNORMAL ECG WHEN COMPARED WITH ECG OF 18-Feb-2025 16:46, T WAVE INVERSION NOW EVIDENT IN ANTERIOR LEADS Confirmed by CECY HUSSEIN MD ([id number]) on 03/10/2025 7:45:25 PM NAME : JAME WALLACE PID : [id number] : 1965 Gender : Male Race : ORD : Procedure Date : Mar 10 2025 16:39:04 Edit Date : Mar 10 2025 19:45:28 Diagnosis: NORMAL SINUS RHYTHM RIGHT BUNDLE BRANCH BLOCK consistent with previous tracing ABNORMAL ECG WHEN COMPARED WITH ECG OF 18-Feb-2025 16:46, T WAVE INVERSION NOW EVIDENT IN ANTERIOR LEADS Confirmed by CECY HUSSEIN MD ([id number]) on 03/10/2025 7:45:25 PM Test Reason : Location : 150 : [place] [facility] Overread By : CECY HUSSEIN MD Edited By : CECY HUSSEIN MD Referred By : , Acquired by : SANTIAGO COPPOLA Normal [facility] Fibrin D-dimer FEU (PPP) [Ma ss/Vol]on 03-10-2025 D DIMER AGE-RELATED CUTOFF 580 ng/mL FEU Normal [facility] Comment on above: Order Comment: Speci men Type: BLOOD SPECIMENOrdering Facility: [facility] Address: [address] [place] [address] Performed By: #### 4 8065-7, 06717-3, 74483-0 ####[facility] LABCLIA [id number] [place] [address] [facility] HIGH SENSITIVITY TROPONIN T (INITIAL)on 03-10-2025 Troponin T.cardiac High sensitivity method [Mass/Vol] 19 ng/L High <12 [facility] Comment on above: Order Comment: Speci men Type: BLOOD SPECIMENOrdering Facility: [facility] Address: [address] [place] [address] Performed By: #### L [id number] ####[facility] LABCLIA [id number] [place] [address] [facility] HIGH SENSITIVITY TROPONIN T (SECOND)on 03-10-2025 Troponin T.cardiac High sensitivity method [Mass/Vol] 19 ng/L High <12 [facility] Comment on above: Order Comment: Speci men Type: BLOOD SPECIMENOrdering Facility: [facility] Address: [address] [place] [address] Performed By: #### L [id number] ####[facility] LABCLIA [id number] [place] [address] [place] Lipase SerPl-cCncon 03-10-20 25 Lipase [Catalytic activity/Vol] 81 U/L High 16-61 [facility] Comment on above: Order Comment: Speci men Type: BLOOD SPECIMENOrdering Facility: [facility] Address: [address] [place] [address] Performed By: #### 2 4323-8, 58423-0, 61025-9, 3040-3 ####[facility] LABCLIA [id number] [place] [address] [place] Magnesium SerPl-mCncon 03-10 Magnesium [Mass/Vol] 1.6 mg/dL Low 1.7-2.3 [facility] Comment on above: Order Comment: Lucas olson Type: BLOOD SPECIMENOrdering Facility: [facility] Address: [address] [place] [address] Performed By: #### 2 4323-8, 51266-3, 40087-3, 3040-3 ####[facility] LABCLIA [id number] [place] [address] [facility] NT[facility]BNP [facility] Natriuretic peptide.B prohormone N-Terminal [Mass/Vol] 649 pg/mL High <125 [facility] Comment on above: Order Comment: Lucas olson Type: BLOOD SPECIMENOrdering Facility: [facility] Address: [address] [place] [address] Performed By: #### 2 4323-8, 70647-9, 97213-6, 3040-3 ####[facility] LABCLIA [id number] [place] [address] [facility] PT panel Coag (PPP)on 2024 INR Coag (PPP) [Relative time] 1.0 {INR} Normal 0.9-1.3 [facility] Comment on above: Order Comment: Lucas olson Type: BLOOD SPECIMENOrdering Facility: [facility] Address: [address] [place] [address] Result Comment: Bridgett min K Antagonist (VKA) Therapeutic Range: INR 2 to 3 (Target INR of 2.5) Note: For patients treated with VKA drugs, such as warfarin, the [place] [employer]icians 2012 Guideline recommends [...] to 3.5 (target INR of 3). Laurie WHATLEY, et al. Chest 2012, 141:7S-47S Nelson RA, et al. JAC 2017, 70: 252-289 Performed By: #### 4 8065-7, 96808-1, 75253-6 ####[facility] LABCLIA [id number] [place] [address] [facility] PT Coag (PPP) [Time] 10.8 s Normal <13.1 [facility] Comment on above: Order Comment: Speci men Type: BLOOD SPECIMENOrdering Facility: [facility] Address: [address] [place] [address] Performed By: #### 4 8065-7, 22743-3, 94947-9 ####[facility] LABCLIA [id number] [place] [address] [facility] XR CHEST 1V FRONTALon 2024 XR CHEST [...] exam with no definite acute radiographic abnormality. Director Of Marketing Communications: PSCB Transcribe Date/Time: Mar 10 2025 6:00P Dictated by : RENA GREGORY MD This examination was interpreted and the report reviewed and electronically signed by: RENA GREGORY MD on Mar 10 2025 6:11PM EST [id number] Normal [facility] XR ELBOW 3V AP/LAT/OTHER RTo n 03-10-2025 [...] clinical concerns for fracture, consider follow-up radiographs. Director Of Marketing Communications: PSCMargarita Transcribe Date/Time: Mar 10 2025 6:23P Dictated by : ERIC SRINIVASAN MD This examination was interpreted and the report reviewed and electronically signed by: ERIC SRINIVASAN MD on Mar 10 2025 6:24PM EST [id number] Normal [facility] aPTT PPPon 03-10-2025 aPTT Coag (PPP) [Time] 28.2 s Normal 23.0-32.4 [facility] Comment on above: Order Comment: Speci men Type: BLOOD SPECIMENOrdering Facility: [facility] Address: [address] [place] [address] Performed By: #### 4 8065-7, 18639-1, 70510-3 ####[facility] LABCLIA [id number] [place] [address] [facility] MR/Gila 03-09-2025 MR/[facility] [address] [place] [address] PAT - Anesthesia 03/09/25 1315 MR#: [id number] Acct: [id number] Name: JAME WALLACE Rep #: [id number] : 1965 59 From: Chapo Turcios MD PCP: DAVID Marina Status:PRE SDC Y Race: C Location: [facility] [place] Pre-Assessment Diagnosis/Proposed Procedure Planned Operative Procedure(s): (R) Cysto,Ureteroscopy,Retro,La ser,Stent Anesthesia History Anesthesia History - csr technician: Anesthesia History - csr technician Hx Hospitalization Yes: 02/2025 CHF 03/06/25 14:04 [...] take am of surgery PONV PONV - csr technician: PONV - csr technician Female No 03/06/25 14:04 HX of Motion Sickness No 03/06/25 14:04 HX of N/V After Surgery No 03/06/25 14:04 Non-Smoker Yes 03/06/25 14:04 Duration of Surgery greater Yes 03/06/25 14:04 than 60 minutes Number of Risk Factors 2 03/06/25 14:04 PONV Score Moderate Risk 03/06/25 14:04 Height Weight Height Weight: Anesthesia: Height Weight Height 6 ft 11/27/24 16:03 Respiratory Assessment Respiratory Assessment - csr technician: Respiratory Tract Infection Hx - csr technician Hx Respiratory Tract Infection No 03/06/25 14:04 STOP Sleep Apnea STOP Sleep Apnea - csr technician: STOP Sleep Apnea - csr technician Hx Hypertension Yes: PER PT, CONTROLLED ON [...] Tobacco Use History Tobacco Use History - csr technician: Tobacco Use History - csr technician Tobacco Use Smoking Status Never smoker 03/06/25 14:04 Hx Tobacco Use No 03/06/25 14:04 Years Smoking Packs Smoked per Day Smoking Cessation Date was within the last 15 years Hx Smoking Cessation Date Hx Smoking Cessation Counseling Hematologic Medial History Hematologic Hx - csr technician: Hematologic Medical Hx - statistical modeler Hx of Blood Transfusion No 03/06/25 14:04 Hx of Transfusion in last 3 No 03/06/25 14:04 Months Date of Last Transfusion (if within last 3 months) Ever experience any problems No 03/06/25 14:04 with transfusion(s)? Specify any problems Hx of Preganancy in last 3 N/A 03/06/25 14:04 Months Nurse Filling Out Transfusion MGRIBANG 03/06/25 14:04 Questions: Date: 03/06/25 03/06/25 14:04 Time: 14:07 03/06/25 14:04 Patient unable to answer at this time (ie. confused, unrespo /Reproduction History /Reproductive History - csr technician: /Reproductive Hx- csr technician Hx Now No 03/06/25 14:04 Gestational Age (in weeks): EDC: Hx Hx Para Hx Section SAB [facility] Medical History (Updated 03/06/25 @ 14:30 by [...] Dose As (more content not included)... Normal [facility] AMB CARD Physician Progress Noteon 02-27-2025 AMB CARD Physician Progress Note JAME WALLACE :1965 [facility]:[id number] Registration Date:02/27/2025 Assessment/Plan This Visit Diagnosis 1. [...] diet Ordered: AMB Follow - Up Appt [facility], 02/27/2025 15:48:00 EDT, 3 months 2. Atrial fibrillation/(I48.91: Unspecified atrial fibrillation) - Clinically in sinus rhythm. Continue metoprolol 50 mg BID - Anticoagulation with Eliquis 5 mg BID - Will arrange for sleep study Ordered: AMB Follow - Up Appt [facility], 02/27/2025 15:48:00 EDT, 3 months 3. Hypertensive disorder/(I10: Essential (primary) hypertension) - Blood pressure is well controlled - Continue current medications - Encouraged patient to monitor blood pressure at home Ordered: AMB Follow - Up Appt [facility], 02/27/2025 15:48:00 EDT, 3 months 4. Hyperlipidemia/(E78.5: Hyperlipidemia, unspecified) - Continue atorvastatin 40 mg daily Ordered: AMB Follow - Up Appt [facility], 02/27/2025 15:48:00 EDT, 3 months Chief Complaint [...] daily. He is seeing another urologist at [facility] soon Denies hematuria with anticoagulation Denies chest [...] and o (more content not included)... Normal [facility] Telephone Encounteron 2024 Director Child Authentication Interface Message Text Hi, it hard stops me due to him being in er/express care at [facility] within 7 days for kidney stone. I can forward to the PSS. Normal [employer] [facility] 6 Clicks Basic Mobilit yon 02-22-2025 [facility] 6 Clicks Basic Mobility AM-PAC 6 [...] Moreno RN - 02/22/2025 12:20 EDT Normal [facility] Comment on above: Order Comment: Order placed by discern rule ADMIT_MOBILITY_SCREEN_ORD Inpatient Patient Summaryon 02-22-2025 Inpatient Patient Summary [facility] Discharge Instructions [address] [place] [address] (Patient Copy) Name: JAME WALLACE : 1965 Diagnosis: Allergies: No Known Allergies Registration Date: 02/19/25 [facility]#: [id number] Current Date Time: 02/22/2025 14:45:03 Address: [address] [facility] [address] Phone: [phone] Primary Care Provider: Name: CALOS JENNY Phone: [phone] Thank you for choosing [facility] for your care. You are very important to us. Our goal is to demonstrate our high quality medical care and provide you with a very good patient experience. You may receive a survey about our service. Please take the time to complete the survey and return it so we can continue to enhance our service. Thank you again for allowing [facility] to care for your medical needs. If [...] Scheduled Provider Follow Ups: With: Address: When: LIMAGILBERT COLE [address] [facility], [address] [place] [address] Business (1) 02/27/2025 3:30 PM With: Address: When: Heart Failure Education ([facility]) [address], [facility] [place] [address] Business (1) 02/24/2025 1:00 PM Comments: Please CALL [phone] if unable to attend. IF PATIENT IS DISCHARGE TO A NURSING FACILITY OR [facility] CARE PLEASE DO NOT ATTEND. If you [...] labels on (more content not included)... Normal [facility] LaboratoryOrdered By: Whitney Perez telewec on 02-22-2025 Glucose [Mass/Vol] 125 mg/dL High 72 - 100 mg/dL POC Chem Glucose [Mass/Vol] 159 mg/dL High 72 - 100 mg/dL POC Chem LaboratoryOrdered By: Reddy Eddy on 02-22-2025 Glucose [Mass/Vol] 123 mg/dL High 72 - 100 mg/dL POC Chem POC Glucoseon 02-22-2025 Glucose [Mass/Vol] 125 mg/dL High 72-100 [facility] Comment on above: Performed By: #### 1 [id number] #### [facility] [address] [place], [place] [address] [employer] Supervisor: Shin Flood MD Glucose [Mass/Vol] 159 mg/dL High 72-100 [facility] Comment on above: Performed By: #### 1 [id number] #### [facility] [address] [place], [place] [address] [employer] Supervisor: Shin Flood MD Glucose [Mass/Vol] 123 mg/dL High 72-100 [facility] Comment on above: Performed By: #### 1 [id number] #### [facility] [address] [place], [place] [address] [employer] Supervisor: Shin Flood MD Progress Note-Physicianon Progress Note-Physician [...] Inpatient acetaminophen, 650 mg= 2 tabs, ORAL, [id number], PRN acetaminophen, 650 mg= 2 tabs, ORAL, [id number], PRN acetaminophen, 650 mg= 2 tabs, ORAL, [id number], PRN acetaminophen-oxycodone(brianda taminophen-oxycodone 325 mg-5 mg oral tablet = Percocet), 1 tabs, ORAL, H4UFJSB, PRN apixaban(Eliquis), 5 mg= 1 tabs, ORAL, ONCE aspirin(Aspirin Low Dose), 81 mg= 1 tabs, ORAL, DAILY WITH BREAKFAST atorvastatin(Lipitor), 40 mg= 1 tabs, ORAL, DAILY buPROPion(Wellbutrin SR, Zyban (buPROPion SR)), 100 mg= 1 tabs, ORAL, BID celecoxib(CeleBREX), 200 mg= 1 caps, ORAL, BID ciprofloxacin = Cipro, 500 mg= 1 tabs, ORAL, [id number] digoxin, 0.25 mg= 1 mL, IV Push, [...] BREAKFAST melatonin, 5 mg= 1 tabs, ORAL, QHS/[id number], PRN metFORMIN = Glucophage, 850 mg= 1 tabs, ORAL, BIDWM metoprolol(Lopressor = Metoprolol Tartrate), 5 mg= 5 mL, IV Push, [id number], PRN metoprolol(Lopressor = Metoprolol Tartrate), 50 mg= 1 tabs, ORAL, BID mirtazapine(Remeron), 7.5 mg= 1 tabs, ORAL, QHS multivitamin, 1 tabs, ORAL, DAILY naloxone = Narcan, 0.4 mg= 1 mL, IV Push, PRN, PRN ondansetron(ondansetron 4 mg oral tablet, disintegrating = Zofran), 4 mg= 1 tabs, ORAL, O2SVOND, PRN tamsulosin(Flomax), 0.4 mg= 1 caps, ORAL, [...] Candie co (more content not included)... Normal [facility] Progress Note-Physician JAME WALLACE :1965 Registration [...] CXR without infiltrate or effusion Labs Normal [facility] 6 Clicks Basic Mobilit yon 02-21-2025 [facility] 6 Clicks Basic Mobility AM-PAC 6 Clicks Basic Mobility Entered On: 02/21/2025 12:59 EDT Performed On: 02/21/2025 8:30 EDT by Marizol Moreno RN [facility] clicks Basic Mobility How much [...] Moreno RN - 02/21/2025 12:59 EDT Normal [facility] Comment on above: Order Comment: Order placed by discern rule ADMIT_MOBILITY_SCREEN_ORD LaboratoryOrdered By: Verito Pires on 02-21-2025 Platelets (Bld) [#/Vol] 212 10*3/uL Normal 150 - 450 x10^3/uL Dx 1600 MPL PLATELET ONLYon 02-21-2025 Platelet 212 x10 Normal 150-450 [facility] Comment on above: Order Comment: PLT c ount on Day 2 after initiation of Heparin or Lovenox, Notify Physician if PLT Count less than 100,000 Performed By: #### 1 [id number] #### [facility] [address] [place] [address] [employer] Supervisor: Shin Flood MD POC Glucoseon 02-21-2025 Glucose [Mass/Vol] 161 mg/dL High 72-100 [facility] Comment on above: Performed By: #### 1 [id number] #### [facility] [address] [place] [address] [employer] Supervisor: Shin Flood MD Glucose [Mass/Vol] 81 mg/dL Normal 72-100 [facility] Comment on above: Performed By: #### 1 [id number] #### [facility] [address] [place] [address] [employer] Supervisor: Shin Flood MD Glucose [Mass/Vol] 239 mg/dL High 72-100 [facility] Comment on above: Performed By: #### 1 [id number] #### [facility] [address] [place] [address], [place] [address] [employer] Supervisor: Shin Flood MD Glucose [Mass/Vol] 114 mg/dL High 72-100 [facility] Comment on above: Performed By: #### 1 [id number] #### [facility] [address] [place] [address] [employer] Supervisor: Shin Flood MD Progress Note-Physicianon Progress Note-Physician [...] Inpatient acetaminophen, 650 mg= 2 tabs, ORAL, [id number], PRN acetaminophen, 650 mg= 2 tabs, ORAL, W4OLNBN, PRN acetaminophen, 650 mg= 2 tabs, ORAL, G4YUZBL, PRN acetaminophen-oxycodone(brianda taminophen-oxycodone 325 mg-5 mg oral tablet = Percocet), 1 tabs, ORAL, N5VQWOT, PRN apixaban(Eliquis), 5 mg= 1 tabs, ORAL, ONCE aspirin(Aspirin Low Dose), 81 mg= 1 tabs, ORAL, DAILY WITH BREAKFAST atorvastatin(Lipitor), 40 mg= 1 tabs, ORAL, DAILY buPROPion(Wellbutrin SR, Zyban (buPROPion SR)), 100 mg= 1 tabs, ORAL, BID celecoxib(CeleBREX), 200 mg= 1 caps, ORAL, BID ciprofloxacin = Cipro, 500 mg= 1 tabs, ORAL, [id number] digoxin, 0.25 mg= 1 mL, IV Push, [...] BREAKFAST melatonin, 5 mg= 1 tabs, ORAL, [id number], PRN metFORMIN = Glucophage, 850 mg= 1 tabs, ORAL, BIDWM metoprolol(Lopressor = Metoprolol Tartrate), 5 mg= 5 mL, IV Push, U9MHEHV, PRN metoprolol(Lopressor = Metoprolol Tartrate), 50 mg= 1 tabs, ORAL, BID mirtazapine(Remeron), 7.5 mg= 1 tabs, ORAL, QHS multivitamin, 1 tabs, ORAL, DAILY naloxone = Narcan, 0.4 mg= 1 mL, IV Push, PRN, PRN ondansetron(ondansetron 4 mg oral tablet, disintegrating = Zofran), 4 mg= 1 tabs, ORAL, [id number], PRN tamsulosin(Flomax), 0.4 mg= 1 caps, ORAL, [...] and continuing (more content not included)... Normal [facility] Progress Note-Physician JAME WALLACE :1965 Registration [...] CXR without infiltrate or effusion Labs Normal [facility] 6 Clicks Basic Mobilit yon 02-20-2025 [facility] 6 Clicks Basic Mobility AM-PAC 6 Clicks Basic Mobility Entered On: 02/20/2025 8:45 EDT Performed On: 02/20/2025 8:45 EDT by Kamlesh Wiggins RN AM-PAC 6 clicks Basic Mobility How [...] Wiggins RN - 02/20/2025 8:45 EDT Normal [facility] Comment on above: Order Comment: Order placed by discern rule ADMIT_MOBILITY_SCREEN_ORD AUTO DIFFon 02-20-2025 Baso Count 0.07 x1000 Normal 0.00-0.20 [facility] Comment on above: Performed By: #### 1 [id number] #### [facility] [address] [place] [address] [employer] Supervisor: Shin Flood MD Basos % 1.0 % Normal [facility] Comment on above: Performed By: #### 1 [id number] #### [facility] [address] [place], [place] [address] [employer] Supervisor: Shin Flood MD Eos Count 0.21 x1000 Normal 0.00-0.50 [facility] Comment on above: Performed By: #### 1 [id number] #### [facility] [address] [place], [place] [address] [employer] Supervisor: Shin Flood MD Eosinophils/100 WBC (Bld) 2.7 % Normal [facility] Comment on above: Performed By: #### 1 [id number] #### [facility] [address] [place] [address] [employer] Supervisor: Shin Flood MD Lymph Count 1.02 x1000 Low 1.20-4.80 [facility] Comment on above: Performed By: #### 1 [id number] #### [facility] [address] [place] [address] [employer] Supervisor: Shin Flood MD Lymphocytes/100 WBC (Bld) 13.0 % Normal [facility] Comment on above: Performed By: #### 1 [id number] #### [facility] [address] [place] [address] [employer] Supervisor: Shin Flood MD [place] Count 0.80 x1000 Normal 0.10-1.00 [facility] Comment on above: Performed By: #### 1 [id number] #### [facility] [address] [place] [address] [employer] Supervisor: Shin Flood MD Monocytes/100 WBC (Bld) 10.3 % Normal [facility] Comment on above: Performed By: #### 1 [id number] #### [facility] [address] [place] [address] [employer] Supervisor: Shin Flood MD Neutrophil Count (ANC) 5.70 x1000 Normal 1.40-8.80 [facility] Comment on above: Performed By: #### 1 [id number] #### [facility] [address] [place] [address] [employer] Supervisor: Shin Flood MD Neutrophils/100 WBC (Bld) 73.0 % Normal [facility] Comment on above: Performed By: #### 1 [id number] #### [facility] [address] [place] [address] [employer] Supervisor: Shin Flood MD BASICMETAon 02-20-2025 Calcium [Mass/Vol] 9.1 mg/dL Normal 8.7-10.4 [facility] Comment on above: Performed By: #### 1 [id number] #### [facility] [address] [place] [address] [employer] Supervisor: Shin Flood MD Chloride [Moles/Vol] 96 mmol/L Low 98-107 [facility] Comment on above: Performed By: #### 1 [id number] #### [facility] [address] [place] [address] [employer] Supervisor: Shin Flood MD CO2 [Moles/Vol] 40.0 mmol/L High 20.0-31.0 [facility] Comment on above: Performed By: #### 1 [id number] #### [facility] [address] [place] [address] [employer] Supervisor: Shin Flood MD Creatinine [Mass/Vol] 1.2 mg/dL High 0.6-1.1 [facility] Comment on above: Performed By: #### 1 [id number] #### [facility] [address] [place] [address] [employer] Supervisor: Shin Flood MD GFR AA >60 Normal [facility] Comment on above: Result Comment: Afri can Micronesian GFR Calc Medical judgement is necessary to [...] MDRD GFR equation Performed By: #### 1 [id number] #### [facility] [address] [place] [address] [employer] Supervisor: Shin Flood MD Glomerular Filtration Rate >60 Normal [facility] Comment on above: Result Comment: Non- [...] MDRD GFR equation Performed By: #### 1 [id number] #### [facility] [address] [place] [address] [employer] Supervisor: Shin Flood MD Glucose [Mass/Vol] 207 mg/dL High 74-106 [facility] Comment on above: Performed By: #### 1 [id number] #### [facility] [address] [place] [address] [employer] Supervisor: Shin Flood MD Osmolality [Osmolality] 290 mosm/kg Normal 275-295 [facility] Comment on above: Performed By: #### 1 [id number] #### [facility] [address] [place] [address] [employer] Supervisor: Shin Flood MD Potassium [Moles/Vol] 4.3 mmol/L Normal 3.5-5.1 [facility] Comment on above: Performed By: #### 1 [id number] #### [facility] [address] [place] [address] [employer] Supervisor: Shin Flood MD Sodium [Moles/Vol] 141 mmol/L Normal 135-145 [facility] Comment on above: Performed By: #### 1 [id number] #### [facility] [address] [place] [address] [employer] Supervisor: Shin Flood MD Urea nitrogen [Mass/Vol] 19 mg/dL Normal 9-23 [facility] Comment on above: Result Comment: - Ve nipuncture should occur prior to N-Acetyl Cysteine (NAC) or Metamizole (Sulpyrine) administration due to the potential for falsely depressed results. - Blood samples from some patients with monoclonal gammopathies may produce falsely elevated results Performed By: #### 1 [id number] #### [facility] [address] [place] [address] [employer] Supervisor: Shin Flood MD Urea nitrogen/Creatinine [Mass ratio] 15.8 mg/mg Normal [facility] Comment on above: Performed By: #### 1 [id number] #### [facility] [address] [place] [address] [employer] Supervisor: Shin Flood MD HEMOon 02-20-2025 DIFF? No Normal [facility] Comment on above: Performed By: #### 1 [id number] #### [facility] [address] [place] [address] [employer] Supervisor: Shin Flood MD Erythrocyte distribution width (RBC) [Ratio] 13.9 % Normal 11.5-14.5 [facility] Comment on above: Performed By: #### 1 [id number] #### [facility] [address] [place] [address] [employer] Supervisor: Shin Flood MD Hematocrit (Bld) [Volume fraction] 38.8 % Low 41.0-52.0 [facility] Comment on above: Performed By: #### 1 [id number] #### [facility] [address] [place] [address] [employer] Supervisor: Shin Flood MD Hemoglobin (Bld) [Mass/Vol] 13.1 g/dL Low 13.5-17.5 [facility] Comment on above: Performed By: #### 1 [id number] #### [facility] [address] [place] [address] [employer] Supervisor: Shin Flood MD Instr WBC 7.8 Normal [facility] Comment on above: Performed By: #### 1 [id number] #### [facility] [address] [place] [address] [employer] Supervisor: Shin Flood MD MCH (RBC) [Entitic mass] 31.5 pg Normal 27.0-34.0 [facility] Comment on above: Performed By: #### 1 [id number] #### [facility] [address] [place] [address] [employer] Supervisor: Shin Flood MD MCHC (RBC) [Mass/Vol] 33.8 g/dL Normal 32.0-37.0 [facility] Comment on above: Performed By: #### 1 [id number] #### [facility] [address] [place] [address] [employer] Supervisor: Shin Flood MD MCV (RBC) [Entitic vol] 93.1 fL Normal 80.0-100.0 [facility] Comment on above: Performed By: #### 1 [id number] #### [facility] [place] [id number] [employer] Supervisor: Shin Flood MD Nucleated RBC 0 /100WBC Normal [facility] Comment on above: Performed By: #### 1 [id number] #### [facility] [place] [id number] [employer] Supervisor: Shin Flood MD Platelet 198 x10 Normal 150-450 [facility] Comment on above: Performed By: #### 1 [id number] #### [facility] [address] [place], [place] [address] [employer] Supervisor: Shin Flood MD Platelet mean volume (Bld) [Entitic vol] 9.6 fL Normal 7.4-10.4 [facility] Comment on above: Performed By: #### 1 [id number] #### [facility] [address] [place] [address] [employer] Supervisor: Shin Flood MD RBC 4.17 x10 Low 4.70-6.10 [facility] Comment on above: Result Comment: Note : RBC morphology is normal unless otherwise stated. Evaluation performed only if differential is requested. Performed By: #### 1 [id number] #### [facility] [address] [place] [address] [employer] Supervisor: Shin Flood MD WBC 7.8 x10 Normal 4.5-11.0 [facility] Comment on above: Performed By: #### 1 [id number] #### [facility] [address] [place] [address] [employer] Supervisor: Shin Flood MD LaboratoryOrdered By: SYSTEM SYSTEM on 02-20-2025 Estimated Creatinine Clearance 78.01 mL/min [facility] Work Phone: Basophils (Bld) [#/Vol] 0.07 [...] Comment on above: Result Comment: Afri can Micronesian GFR Calc Interpretive Data: " Medical judgement is necessary to interpret GFR. The calculated GFR may not accurately reflect renal status in patients >70 years, women, acutely ill hospitalized patients and patients with acute renal failure or known renal disease. The MDRD GFR formula is valid only for adults greater than 18 years of age." Note: Creatinine clearance (not GFR) should be used for drug dosing. Calculated result performed using the MDRD GFR equation GFR/1.73 sq M.predicted MDRD (S/P/Bld) [Vol rate/Area] mL/min/1.73m Invalid Interpretation Code ADM RES Comment on above: Result Comment: Non- GFR Calc Interpretive Data: " Medical judgement is necessary to interpret GFR. The calculated GFR may not accurately reflect renal status in patients >70 years, women, acutely ill hospitalized patients and patients with acute renal failure or known renal disease. The MDRD GFR formula is valid only for adults greater than 18 years of age." Note: Creatinine clearance (not GFR) should be used for drug dosing. Calculated result performed using the MDRD GFR equation Glucose [Mass/Vol] 207 mg/dL High 74 - 106 mg/dL ADM RES Hematocrit (Bld) [Volume fraction] 38.8 % Low 41.0 - 52.0 % Dx 1600 MPL Hemoglobin (Bld) [Mass/Vol] 13.1 g/dL Low 13.5 - 17.5 g/dL Dx 1600 M[facility] Lymphocytes (Bld) [#/Vol] 1.02 10*3/uL Low 1.20 - 4.80 x1000 Dx 1600 M[facility] Lymphocytes/100 WBC (Bld) 13.0 % Invalid Interpretation Code Dx 1600 MPL MCH (RBC) [Entitic mass] 31.5 pg Normal 27.0 - 34.0 pg Dx 1600 MPL MCHC (RBC) [Mass/Vol] 33.8 g/dL Normal 32.0 - 37.0 g/dL DxH 1600 MPL MCV (RBC) [Entitic vol] 93.1 fL Normal 80.0 - 100.0 fL SW DxH 1600 MPL Monocytes (Bld) [#/Vol] 0.80 10*3/uL Normal 0.10 - 1.00 x1000 DxH 1600 MPL Monocytes/100 WBC (Bld) 10.3 % Invalid Interpretation Code DxH 1600 MPL Neutrophils (Bld) [#/Vol] 5.70 10*3/uL Normal 1.40 - 8.80 x1000 DxH 1600 MPL Neutrophils/100 WBC (Bld) 73.0 % Invalid Interpretation Code DxH 1600 MPL Nucleated RBC Auto Ql (Bld) 0 /100WBC Invalid Interpretation Code Dx 1600 MPL Osmolality Calc [Osmolality] 290 mOsm/kg Normal 275 - 295 mOsm/kg ADM RES Platelet mean volume (Bld) [Entitic vol] 9.6 fL Normal 7.4 - 10.4 fL Dx 1600 MPL Platelets (Bld) [#/Vol] 198 10*3/uL Normal 150 - 450 x10^3/uL Dx 1600 MPL Potassium [Moles/Vol] 4.3 mmol/L Normal 3.5 - 5.1 mmol/L [facility] RES RBC (Bld) [#/Vol] 4.17 10*6/uL Low 4.70 - 6.10 x10^6/uL Dx 1600 MPL Comment on above: Interpretive Data: N ote: RBC morphology is normal unless otherwise stated. Evaluation performed only if differential is requested. Sodium [Moles/Vol] 141 mmol/L Normal 135 - 145 mmol/L [facility] Urea nitrogen [Mass/Vol] 19 mg/dL Normal 9 - 23 mg/dL [facility] Comment on above: Interpretive Data: - Venipuncture should occur prior to N- Acetyl Cysteine (NAC) or Metamizole (Sulpyrine) administration due to the potential for falsely depressed results. - Blood samples from some patients with monoclonal gammopathies may produce falsely elevated results Urea nitrogen/Creatinine [Mass ratio] 15.8 mg/mg Invalid Interpretation Code [facility] WBC corrected for nucl RBC Auto (Bld) [#/Vol] 7.8 x10^3/uL Normal 4.5 - 11.0 x10^3/uL [facility] 1600 MPL POC Glucoseon 02-20-2025 Glucose [Mass/Vol] 208 mg/dL High [address] [place] [address] Comment on above: Performed By: #### 1 [id number] #### [facility] [address] [place] [address] [employer] Supervisor: Shin Flood MD Glucose [Mass/Vol] 152 mg/dL High [address] Comment on above: Performed By: #### 1 [id number] #### [facility] [address] [place], [place] [address] [employer] Supervisor: Shin Flood MD Glucose [Mass/Vol] 170 mg/dL High 72-100 [facility] Comment on above: Performed By: #### 1 [id number] #### [facility] [address] [place] [address] [employer] Supervisor: Shin Flood MD Glucose [Mass/Vol] 143 mg/dL High 72-100 [facility] Comment on above: Performed By: #### 1 [id number] #### [facility] [address] [place] [address] [employer] Supervisor: Shin Flood MD Progress Note-Physicianmegan Progress Note-Physician JAME WALLACE :1965 [facility]:[id number] Registration Date:02/19/2025 Subjective Seen today feeling much [...] Inpatient acetaminophen, 650 mg= 2 tabs, ORAL, [id number], PRN acetaminophen, 650 mg= 2 tabs, ORAL, [id number], PRN acetaminophen, 650 mg= 2 tabs, ORAL, [id number], PRN acetaminophen-oxycodone(brianda taminophen-oxycodone 325 mg-5 mg oral tablet = Percocet), 1 tabs, ORAL, [id number], PRN apixaban(Eliquis), 5 mg= 1 tabs, ORAL, ONCE aspirin(Aspirin Low Dose), 81 mg= 1 tabs, ORAL, DAILY WITH BREAKFAST atorvastatin(Lipitor), 40 mg= 1 tabs, ORAL, DAILY buPROPion(Wellbutrin SR, Zyban (buPROPion SR)), 100 mg= 1 tabs, ORAL, BID celecoxib(CeleBREX), 200 mg= 1 caps, ORAL, BID ciprofloxacin = Cipro, 500 mg= 1 tabs, ORAL, [id number] digoxin, 0.25 mg= 1 mL, IV Push, [...] BREAKFAST melatonin, 5 mg= 1 tabs, ORAL, [id number], PRN metFORMIN = Glucophage, 850 mg= 1 tabs, ORAL, BIDWM metoprolol(Lopressor = Metoprolol Tartrate), 37.5 mg= 1.5 tabs, ORAL, BID metoprolol(Lopressor = Metoprolol Tartrate), 5 mg= 5 mL, IV Push, [id number], PRN mirtazapine(Remeron), 7.5 mg= 1 tabs, ORAL, QHS multivitamin, 1 tabs, ORAL, DAILY naloxone = Narcan, 0.4 mg= 1 mL, IV Push, PRN, PRN ondansetron(ondansetron 4 mg oral tablet, disintegrating = Zofran), 4 mg= 1 tabs, ORAL, [id number], PRN tamsulosin(Flomax), 0.4 mg= 1 caps, ORAL, [...] interpret GFR (more content not included)... Normal [facility] Progress Note-Physician JAME WALLACE :1965 Registration [...] Inpatient acetaminophen, 650 mg= 2 tabs, ORAL, [id number], PRN acetaminophen-oxycodone(brianda taminophen-oxycodone 325 mg-5 mg oral tablet = Percocet), 1 tabs, ORAL, [id number], PRN aspirin(Aspirin Low Dose), 81 mg= 1 tabs, ORAL, DAILY WITH BREAKFAST atorvastatin(Lipitor), 40 mg= 1 tabs, ORAL, DAILY buPROPion(Wellbutrin SR, Zyban (buPROPion SR)), 100 mg= 1 tabs, ORAL, BID celecoxib(CeleBREX), 200 mg= 1 caps, ORAL, BID ciprofloxacin = Cipro, 500 mg= 1 tabs, ORAL, [id number] DULoxetine(Cymbalta), 60 mg= 1 caps, ORAL, DAILY [...] BREAKFAST melatonin, 5 mg= 1 tabs, ORAL, [id number], PRN metFORMIN = Glucophage, 850 mg= 1 tabs, ORAL, BIDWM metoprolol(Lopressor = Metoprolol Tartrate), 37.5 mg= 1.5 tabs, ORAL, BID mirtazapine(Remeron), 7.5 mg= 1 tabs, ORAL, QHS multivitamin, 1 tabs, ORAL, DAILY naloxone = Narcan, 0.4 mg= 1 mL, IV Push, PRN, PRN ondansetron(ondansetron 4 mg oral tablet, disintegrating = Zofran), 4 mg= 1 tabs, ORAL, [id number], PRN tamsulosin(Flomax), 0.4 mg= 1 caps, ORAL, [...] in ng/ml Fibrinogen Equivalent Units (FEU). Per .net programmer?s instructions for use, a value less than [...] EDT HG (more content not included)... Normal [facility] Progress Note-Physician Patient: JAME WALLACE Age: [...] L 12.3 (FEB 18) Hct L 37.0 (SEP 18) Plt 178 (SEP 18) Na 143 (SEP 18) K 4.0 (SEP 18) CO2 H 33.0 (FEB 18) Cl 102 (FEB 18) Cr H 1.2 (FEB 18) BUN 21 (FEB 19) Glucose Random H 117 (SEP 18) Ca 9.2 (FEB 19) . Plan R proximal ureteral stone - [...] current admission. Exam / procedure done by: MANDO VALVERDE, resident under supervision of attending Physician. Sent to for review: DANI ROPER MD [facility] 6 Clicks Basic Mobilit [facility] 02-19-2025 [facility] 6 Clicks Basic Mobility AM-PAC 6 [...] Farzad Plata RN - 02/19/2025 11:[address] [facility] Comment on above: Order Comment: Order placed by discern rule ADMIT_MOBILITY_SCREEN_ORD [facility] 6 Clicks Basic Mobility AM-PAC 6 [...] Pleitez RN - 02/19/2025 2:40 EDT Normal [facility] Comment on above: Order Comment: Order placed by discern rule ADMIT_MOBILITY_SCREEN_ORD AUTO DIFFon 02-19-2025 Baso Count 0.05 x1000 Normal 0.00-0.20 [facility] Comment on above: Performed By: #### 1 [id number] #### [facility] [address] [place], [place] [address] [employer] Supervisor: Shin Flood MD Basos % 0.7 % Normal [facility] Comment on above: Performed By: #### 1 [id number] #### [facility] [address] [place], [place] [address] [employer] Supervisor: Shin Flood MD Eos Count 0.20 x1000 Normal 0.00-0.50 [facility] Comment on above: Performed By: #### 1 [id number] #### [facility] [address] [place] [address] [employer] Supervisor: Shin Flood MD Eosinophils/100 WBC (Bld) 2.6 % Normal [facility] Comment on above: Performed By: #### 1 [id number] #### [facility] [address] [place], [place] [address] [employer] Supervisor: Shin Flood MD Lymph Count 1.57 x1000 Normal 1.20-4.80 [facility] Comment on above: Performed By: #### 1 [id number] #### [facility] [address] [place] [address] [employer] Supervisor: Shin Flood MD Lymphocytes/100 WBC (Bld) 20.2 % Normal [facility] Comment on above: Performed By: #### 1 [id number] #### [facility] [address] [place] [address] [employer] Supervisor: Shin Flood MD [place] Count 0.92 x1000 Normal 0.10-1.00 [facility] Comment on above: Performed By: #### 1 [id number] #### [facility] [address] [place] [address] [employer] Supervisor: Shin Flood MD Monocytes/100 WBC (Bld) 11.9 % Normal [facility] Comment on above: Performed By: #### 1 [id number] #### [facility] [address] [place] [address] [employer] Supervisor: Shin Flood MD Neutrophil Count (ANC) 5.01 x1000 Normal 1.40-8.80 [facility] Comment on above: Performed By: #### 1 [id number] #### [facility] [address] [place] [address] [employer] Supervisor: Shin Flood MD Neutrophils/100 WBC (Bld) 64.6 % Normal [facility] Comment on above: Performed By: #### 1 [id number] #### [facility] [address] [place] [address] [employer] Supervisor: Shin Flood MD Admission Assessment Adulton 02-19-2025 Admission Assessment Adult Adult Admission Data Entered On: 02/19/2025 2:40 EDT Performed On: 02/19/2025 1:50 EDT by Raman Pleitez RN Patient Safety Grid ID Band on and Verified : Yes Allergy Rnp : No Latex Tote : No Diabetic Rnp : Yes Fall Risk Rnp : Yes No Blood Rnp : No Restricted Extremity Band On : [...] - 02/19/2025 3:00 EDT Rapid [facility] Data [id number] Primary Pain Location : Generalized (Comment: pt's lower back, kidney stone area [Anabella Michael RN - 02/19/2025 3:00 EDT] ) Numeric Pain Scale : 8 = Severe Pain Numeric Pain Score : 8 Primary Pain Aggravating Factors : Movement Primary Pain Alleviating Factors : Medications, Repositioning Interventions : Rest Anabella Michael RN 02/19/2025 3:00 EDT [place] Coma Eye Opening Response [place] : Spontaneously Best Verbal Response [place] : Oriented Best Motor Response [place] : Obeys simple commands [place] Coma Score : 15 Raman Pleitez RN - 02/19/2025 2:38 EDT Neuro Characteristics of Speech : Clear Orientation : Oriented x 3 Level of Consciousness : Alert Affect / Behavior : Calm Sensory Perception Maicol : Slightly limited Extremity Movement : Equal Gait : Steady Aspiration Risk : None CN VII Facial Expression and Symmetry : Facial movement symmetrical Maik GUSTAFSON, Raman 02/19/2025 2:38 EDT CardioVascular Heart Rhythm : Regular Capillary Refill : Less than 2 seconds Edema : Generalized Maik GUSTAFSON, [facility] 02/19/2025 2:38 EDT Respiratory Respirations : Unlabored Respiratory Pattern Description : Regular Maik GUSTAFSON, Raamn 02/19/2025 2:38 EDT WILLIAM : Clear LLL : Diminished RUL : Clear RML : Diminished RLL : Diminished Maik GUSTAFSON, [facility] 02/19/2025 2:38 EDT Cough : None Maik GUSTAFSON, Raman 02/19/2025 2:38 EDT Musculoskeletal Activity Maicol : Walks occasionally Mobility Maicol : Slightly limited Ambulatory Devices : None Special Orthopedic Devices : None ADLs : Independent Maik GUSTAFSON, [facility] 02/19/2025 2:38 EDT GI Abdomen Description : Symmetric Abdomen Palpation : Soft Maik GUSTAFSON, [facility] 02/19/2025 2:38 EDT Bowel Sounds Grid LUQ : Present RUQ : Present LLQ : Present RLQ : Present Maik GUSTAFSON, [facility] 02/19/2025 2:38 EDT Passing Flatus : Yes Bowel Movement Last Date Known : Yes Bowel Movement Last Date : 02/18/2025 EDT Maik GUSTAFSON, [facility] 02/19/2025 2:38 EDT Bladder Distention : Absent Maik GUSTAFSON, [facility] 02/19/2025 2:38 EDT Integumentary Skin Integrity : Intact Skin Temperature : Warm Skin Color : [place] Skin Turgor : Elastic Mucous Membrane Color : [place] Mucous Membrane Description : Moist Skin Description : Dry Maik GUSTAFSON, [facility] 02/19/2025 2:38 EDT Present on Admission Medical Devices : None Medical Devices for Med Administration : None Maik GUSTAFSON, Raman 02/19/2025 2:38 EDT Education Responsible Learner/s Present : No Data Available Owens Learner/Caregiver Present for Session : No Barriers to Learning : None evident TeachBack Methodology : TeachBack, Anabella Johnston RN 02/19/2025 3:00 EDT Activity Expectations : Verbalizes understanding Orientation to Unit/Room : Verbalizes understanding Pain Management : Verbalizes understanding Patient Participation in Treatment : Verbalizes understanding Patient Rights/Responsibilities : Verbalizes understanding Physical Limitations : Verbalizes understanding Plan of Care : Verbalizes understanding Safety, Fall : Verbalizes understanding Unit Procedures : Verbalizes understanding Anabella Michael RN - 02/19/2025 3:00 EDT Notifications PCP notified of your admission? : Yes Emergency Contact notified of your admission? : Anabella Morrissey RN - 02/19/2025 3:00 EDT Normal [facility] Comment on above: Order Comment: Order entered secondary to admissionVN completed workflow tasks. BN to complete physical assessment B TYPE PEPon 02-19-2025 Natriuretic peptide B (Bld) [Mass/Vol] 326 pg/mL High 0-100 [facility] Comment on above: Performed By: #### 3 [id number] #### [facility] [address] [address] [employer] Supervisor: Shin Flood MD Basic Admission Informationo n [...] low position, Call device within reach, Fall train station server ID Band, Falling [place], ID band check, Mobility support items readily available, Night light, Non-Slip footwear, Personal items within reach, Sensory aids within reach, Upper/Half-length side-rails up, Traffic path in room free of clutter, Wheels locked Demonstrates Ability to Use Call Light Successfully : Yes Glenis Andre - 02/19/2025 2:14 EDT Normal [facility] Comment on above: Order Comment: Order entered secondary to admission COMPMETAon 02-19-2025 Albumin [Mass/Vol] 3.1 g/dL Low 3.4-5.0 [facility] Comment on above: Performed By: #### 1 [id number] #### [facility] [address] [place] [address] [employer] Supervisor: Shin Flood MD Albumin/Globulin [Mass ratio] 0.9 {ratio} Normal [facility] Comment on above: Performed By: #### 1 01037 #### [facility] [address] [place] [address] [employer] Supervisor: Shin Flood MD Alk Phos 96 unit/L Normal 45-117 [facility] Comment on above: Performed By: #### 1 18486 #### [facility] [address] [place], [place] [address] [employer] Supervisor: Shin Flood MD Bilirubin [Mass/Vol] 0.50 mg/dL Normal 0.30-1.20 [facility] Comment on above: Result Comment: Use of this assay is not recommended for patients undergoing treatment with eltrombopag due to the potential for falsely elevated results. Performed By: #### 1 [id number] #### [facility] [address] [place], [place] [address] [employer] Supervisor: Shin Flood MD Calcium [Mass/Vol] 9.2 mg/dL Normal 8.7-10.4 [facility] Comment on above: Performed By: #### 1 [id number] #### [facility] [address] [place] [address] [employer] Supervisor: Shin Flood MD Chloride [Moles/Vol] 102 mmol/L Normal 98-107 [facility] Comment on above: Performed By: #### 1 26265 #### [facility] [address] [place] [address] [employer] Supervisor: Shin Flood MD CO2 [Moles/Vol] 33.0 mmol/L High 20.0-31.0 [facility] Comment on above: Performed By: #### 1 [id number] #### [facility] [address] [place] [address] [employer] Supervisor: Shin Flood MD Creatinine [Mass/Vol] 1.2 mg/dL High 0.6-1.1 [facility] Comment on above: Performed By: #### 1 [id number] #### [facility] [address] [place], [place] [address] [employer] Supervisor: Shin Flood MD GFR AA >60 Normal [facility] Comment on above: Result Comment: Afri can [place] GFR Calc Medical judgement is necessary to [...] MDRD GFR equation Performed By: #### 1 [id number] #### [facility] [address] [place], [place] [address] [employer] Supervisor: Shin Flood MD Globulin (S) [Mass/Vol] 3.4 g/dL Normal [facility] Comment on above: Performed By: #### 1 21028 #### [facility] [address] [place], [place] [address] [employer] Supervisor: Shin Flood MD Glomerular Filtration Rate >60 Normal [facility] Comment on above: Result Comment: Non- [...] MDRD GFR equation Performed By: #### 1 [id number] #### [facility] [address] [place], [place] [address] [employer] Supervisor: Shin Flood MD Glucose [Mass/Vol] 117 mg/dL High 74-106 [facility] Comment on above: Performed By: #### 1 80569 #### [facility] [address] [place], [place] [address] [employer] Supervisor: Shin Flood MD GOT 18 unit/L Normal 15-37 [facility] Comment on above: Performed By: #### 1 33415 #### [facility] [address] [place], [place] [address] [employer] Supervisor: Shin Flood MD GPT 15 unit/L Normal 10-49 [facility] Comment on above: Performed By: #### 1 37476 #### [facility] [address] [place], [place] [address] [employer] Supervisor: Shin Flood MD Osmolality [Osmolality] 289 mosm/kg Normal 275-295 [facility] Comment on above: Performed By: #### 1 16393 #### [facility] [address] [place], [place] [address] [employer] Supervisor: Shin Flood MD Potassium [Moles/Vol] 4.0 mmol/L Normal 3.5-5.1 [facility] Comment on above: Performed By: #### 1 19347 #### [facility] [address] [place] [address] [employer] Supervisor: Shin Flood MD Protein [Mass/Vol] 6.5 g/dL Normal 5.7-8.2 [facility] Comment on above: Result Comment: Tota l Protein results may be increased in patients receiving dextran as a blood volume pcu rn Performed By: #### 1 93851 #### [facility] [address] [place] [address] [employer] Supervisor: Shin Flood MD Sodium [Moles/Vol] 143 mmol/L Normal 135-145 [facility] Comment on above: Performed By: #### 1 34342 #### [facility] [address] [place] [address] [employer] Supervisor: Shin Flood MD Urea nitrogen [Mass/Vol] 21 mg/dL Normal 9-23 [facility] Comment on above: Result Comment: - Ve nipuncture should occur prior to N-Acetyl Cysteine (NAC) or Metamizole (Sulpyrine) administration due to the potential for falsely depressed results. - Blood samples from some patients with monoclonal gammopathies may produce falsely elevated results Performed By: #### 1 90487 #### [facility] [address] [place] [address] [employer] Supervisor: Shin Flood MD Urea nitrogen/Creatinine [Mass ratio] 17.5 mg/mg Normal [facility] Comment on above: Performed By: #### 1 31472 #### [facility] [address] [place] [address] [employer] Supervisor: Shin Flood MD Consult Reporton 02-19-2025 Consult [...] wait because of the pain. When the corrosion control technician laid him down for KUB Xray, [...] Inpatient acetaminophen, 650 mg= 2 tabs, ORAL, [id number], PRN acetaminophen-oxycodone(brianda taminophen-oxycodone 325 mg-5 mg oral tablet = Percocet), 1 tabs, ORAL, [id number], PRN aspirin(Aspirin Low Dose), 81 mg= 1 tabs, ORAL, DAILY WITH BREAKFAST ciprofloxacin = Cipro, 500 mg= 1 tabs, ORAL, [id number] enoxaparin(Lovenox), 40 mg= 0.4 mL, Subcutaneous, QHS [...] PRN melatonin, 5 mg= 1 tabs, ORAL, [id number], PRN naloxone = Narcan, 0.4 mg= 1 mL, IV Push, PRN, PRN ondansetron(ondansetron 4 mg oral tablet, disintegrating = Zofran), 4 mg= 1 tabs, ORAL, [id number], PRN traMADol(Ultram), 50 mg= 1 tabs, ORAL, TID Home acetaminophen-oxycodone(Per cocet 5 mg-325 mg oral tablet), 1 tabs, ORAL, [id number], PRN atorvastatin(Lipitor 40 mg oral tablet), 40 mg= 1 tabs, ORAL, D (more content not included)... Normal [facility] Comment on above: Order Comment: submi tted other note Result Comment: Wesly Med-StudentBeena on Consult Report JAME WALLACE :1965 [facility]:[id number] Registration Date:02/19/2025 Chief Complaint New onset hypoxia [...] wait because of the pain. When the corrosion control technician laid him down for KUB Xray, [...] tested as outpatient; his PCP is in [place] and I wrote him out name/number for evaluation here if interested IV diuresis Needs to be more cognizant of sodium intake Wean oxygen as tolerated ECHO Check d dimer Normal [facility] Consult Report JAME WALLACE :1965 Registration Date:02/19/2025 Chief Complaint CHF Exacerbation Reason for Consultation R ureteral stone History of Present Illness 59-year-old male known to [facility] urology, Patient directly admitted late last night from [place] for CHF exacerbation Urology consulted for known right ureteral stone. Patient was evaluated in [facility] ED 02/16/2025 for worsening right sided flank pain. He was previously seen prior to 02/16 at [place] ED for 8 mm right ureteral stone at the [facility]. He was discharged from [facility] ED with plan to proceed with [...] Inpatient acetaminophen, 650 mg= 2 tabs, ORAL, [id number], PRN acetaminophen, 650 mg= 2 tabs, ORAL, [id number], PRN acetaminophen, 650 mg= 2 tabs, ORAL, [id number], PRN acetaminophen-oxycodone(brianda taminophen-oxycodone 325 mg-5 mg oral tablet = Percocet), 1 tabs, ORAL, [id number], PRN aspirin(Aspirin Low Dose), 81 mg= 1 tabs, ORAL, DAILY WITH BREAKFAST atorvastatin(Lipitor), 40 mg= 1 tabs, ORAL, DAILY buPROPion(Wellbutrin SR, Zyban (buPROPion SR)), 100 mg= 1 tabs, ORAL, BID celecoxib(CeleBREX), 200 mg= 1 caps, ORAL, BID ciprofloxacin = Cipro, 500 mg= 1 tabs, ORAL, [id number] DULoxetine(Cymbalta), 60 mg= 1 caps, ORAL, DAILY [...] glucose(Dextrose 50% (more content not included)... Normal [facility] D Dimer HSon 02-19-2025 D Dimer HS 630 ng/mL FEU High <=499 [facility] Comment on above: Result Comment: Excl usion of PE and DVT The D Dimer HS assay is reported in ng/ml Fibrinogen Equivalent Units (FEU). Per .net programmer?s instructions for use, a value less than 500ng/ml (FEU) may help to exclude DVT and /or PE in outpatients when the assay is used with a clinical pretest probability assessment. D-Dimer used for DIC Screens Assay results should be used with other information, including the clinical context in forming a diagnosis. Performed By: #### 1 [id number] #### [facility] [address] [place] [address] [employer] Supervisor: Shin Flood MD HEMOon 02-19-2025 DIFF? No Normal [facility] Comment on above: Performed By: #### 1 43510 #### [facility] [address] [place] [address] [employer] Supervisor: Shin Flood MD Erythrocyte distribution width (RBC) [Ratio] 14.3 % Normal 11.5-14.5 [facility] Comment on above: Performed By: #### 1 24240 #### [facility] [address] [place], [place] [address] [employer] Supervisor: Shin Flood MD Hematocrit (Bld) [Volume fraction] 37.0 % Low 41.0-52.0 [facility] Comment on above: Performed By: #### 1 02288 #### [facility] [address] [place], [place] [address] [employer] Supervisor: Shni Flood MD Hemoglobin (Bld) [Mass/Vol] 12.3 g/dL Low 13.5-17.5 [facility] Comment on above: Performed By: #### 1 81600 #### [facility] [address] [place], [place] [address] [employer] Supervisor: Shin Flood MD Instr WBC 7.8 Normal [facility] Comment on above: Performed By: #### 1 16539 #### [facility] [address] [place], [place] [address] [employer] Supervisor: Shin Flood MD MCH (RBC) [Entitic mass] 31.3 pg Normal 27.0-34.0 [facility] Comment on above: Performed By: #### 1 94828 #### [facility] [address] [place], [place] [address] [employer] Supervisor: Shin Flood MD MCHC (RBC) [Mass/Vol] 33.3 g/dL Normal 32.0-37.0 [facility] Comment on above: Performed By: #### 1 36023 #### [facility] [address] [place], [place] [address] [employer] Supervisor: Shin Flood MD MCV (RBC) [Entitic vol] 94.1 fL Normal 80.0-100.0 [facility] Comment on above: Performed By: #### 1 90782 #### [facility] [address] [place], [place] [address] [employer] Supervisor: Shin Flood MD Nucleated RBC 0 /100WBC Normal [facility] Comment on above: Performed By: #### 1 55165 #### [facility] [address] [place] [address] [employer] Supervisor: Shin Flood MD Platelet 178 x10 Normal 150-450 [facility] Comment on above: Performed By: #### 1 09451 #### [facility] [address] [place], [place] [address] [employer] Supervisor: Shin Flood MD Platelet mean volume (Bld) [Entitic vol] 10.2 fL Normal 7.4-10.4 [facility] Comment on above: Performed By: #### 1 08134 #### [facility] [address] [id number] [employer] Supervisor: Shin Flood MD RBC 3.93 x10 Low 4.70-6.10 [facility] Comment on above: Result Comment: Note : RBC morphology is normal unless otherwise stated. Evaluation performed only if differential is requested. Performed By: #### 1 60725 #### [facility] [address] [place] [address] [employer] Supervisor: Shin Flood MD WBC 7.8 x10 Normal 4.5-11.0 [facility] Comment on above: Performed By: #### 1 15061 #### [facility] [address] [place], [place] [address] [employer] Supervisor: Shin Flood MD LaboratoryOrdered By: Devin Hussein on 02-19-2025 D Dimer HS 630 ng/mL FEU High <=499ng/mL FEU [facility] Comment on above: Interpretive Data: E xclusion of PE and DVT The D Dimer HS assay is reported in ng/ml Fibrinogen Equivalent Units (FEU). Per .net programmer s instructions for use, a value less [...] pg/mL Normal 3 - 53 pg/mL ADM [facility] Comment on above: Interpretive Data: S pecimens from some individuals with pathologically high gamma globulin levels may demonstrate depressed troponin values Estimated Creatinine Clearance 78.01 mL/min [facility] Work Phone: Albumin BCP dye [Mass/Vol] 3.1 g/dL Low 3.4 - 5.0 g/dL ADM RES Albumin/Globulin [Mass ratio] 0.9 {ratio} Invalid Interpretation Code SW ADM RES ALP [Catalytic activity/Vol] 96 U/L [...] mg/dL Normal 0.30 - 1.20 mg/dL ADM [facility] Comment on above: Interpretive Data: U se [...] mg/dL SW ADM RES Eosinophils (Bld) [#/Vol] 0.20 10*3/uL Normal 0.00 - 0.50 x1000 DxH 1600 MPL Eosinophils/100 WBC (Bld) 2.6 % Invalid Interpretation Code DxH 1600 MPL Erythrocyte distribution width (RBC) [Ratio] 14.3 % Normal 11.5 - 14.5 % Dx 1600 MPL GFR AA 1 Invalid Interpretation Code ADM RES Comment on above: Result Comment: Afri can [place] GFR Calc Interpretive Data: " Medical judgement is necessary to interpret GFR. The calculated GFR may not accurately reflect renal status in patients >70 years, women, acutely ill hospitalized patients and patients with acute renal failure or known renal disease. The MDRD GFR formula is valid only for adults greater than 18 years of age." Note: Creatinine clearance (not GFR) should be used for drug dosing. Calculated result performed using the MDRD GFR equation GFR/1.73 sq M.predicted MDRD (S/P/Bld) [Vol rate/Area] mL/min/1.73m Invalid Interpretation Code ADM RES Comment on above: Result Comment: Non- GFR Calc Interpretive Data: " Medical judgement is necessary to interpret GFR. The calculated GFR may not accurately reflect renal status in patients >70 years, women, acutely ill hospitalized patients and patients with acute renal failure or known renal disease. The MDRD GFR formula is valid only for adults greater than 18 years of age." Note: Creatinine clearance (not GFR) should be used for drug dosing. Calculated result performed using the MDRD GFR equation Globulin (S) [Mass/Vol] 3.4 g/dL Invalid Interpretation Code ADM RES Glucose [Mass/Vol] 117 mg/dL High 74 - 106 mg/dL ADM RES Hematocrit (Bld) [Volume fraction] 37.0 % Low 41.0 - 52.0 % Dx 1600 MPL Hemoglobin (Bld) [Mass/Vol] 12.3 g/dL Low 13.5 - 17.5 g/dL DxH 1600 MPL Lymphocytes (Bld) [#/Vol] 1.57 10*3/uL Normal 1.20 - 4.80 x1000 Dx 1600 MPL Lymphocytes/100 WBC (Bld) 20.2 % Invalid Interpretation Code Dx 1600 MPL MCH (RBC) [Entitic mass] 31.3 pg Normal 27.0 - 34.0 pg DxH 1600 MPL MCHC (RBC) [Mass/Vol] 33.3 g/dL Normal 32.0 - 37.0 g/dL Dx 1600 MPL MCV (RBC) [Entitic vol] 94.1 [...] Ql (Bld) 0 /100WBC Invalid Interpretation Code DxH 1600 MPL Osmolality Calc [Osmolality] 289 mOsm/kg Normal 275 - 295 mOsm/kg [facility] RES Platelet mean volume (Bld) [Entitic vol] 10.2 fL Normal 7.4 - 10.4 fL Dx 1600 MPL Platelets (Bld) [#/Vol] 178 10*3/uL Normal 150 - 450 x10^3/uL Dx 1600 MPL Potassium [Moles/Vol] 4.0 mmol/L Normal 3.5 - 5.1 mmol/L [facility] RES Protein [Mass/Vol] 6.5 g/dL Normal 5.7 - 8.2 g/dL [facility] Comment on above: Interpretive Data: T otal Protein results may be increased in patients receiving dextran as a blood volume pcu rn RBC (Bld) [#/Vol] 3.93 10*6/uL Low 4.70 - 6.10 x10^6/uL Dx 1600 MPL Comment on above: Interpretive Data: N ote: RBC morphology is normal unless otherwise stated. Evaluation performed only if differential is requested. Sodium [Moles/Vol] 143 mmol/L Normal 135 - 145 mmol/L [facility] RES Urea nitrogen [Mass/Vol] 21 mg/dL Normal 9 - 23 mg/dL [facility] Comment on above: Interpretive Data: - Venipuncture should occur prior to N- Acetyl Cysteine (NAC) or Metamizole (Sulpyrine) administration due to the potential for falsely depressed results. - Blood samples from some patients with monoclonal gammopathies may produce falsely elevated results Urea nitrogen/Creatinine [Mass ratio] 17.5 mg/mg Invalid Interpretation Code SW ADM RES WBC corrected for nucl RBC Auto (Bld) [#/Vol] 7.8 x10^3/uL Normal 4.5 - 11.0 x10^3/uL DxH 1600 MPL Estimated Creatinine Clearance 85.11 mL/min [facility] Work Phone: POC Glucoseon 02-19-2025 Glucose [Mass/Vol] 152 mg/dL High 72-100 [facility] Comment on above: Performed By: #### 1 [id number] #### [facility] [address] [place] [address] [employer] Supervisor: Shin Flood MD Glucose [Mass/Vol] 101 mg/dL High 72-100 [facility] Comment on above: Performed By: #### 1 [id number] #### [facility] [address] [place] [address] [employer] Supervisor: Shin Flood MD Glucose [Mass/Vol] 181 mg/dL High 72-100 [facility] Comment on above: Performed By: #### 1 [id number] #### [facility] [address] [place] [address] [employer] Supervisor: Shin Flood MD TROPONIN HS SINGLE DRAWon Troponin HS Single Draw 10 pg/mL Normal 3-53 [facility] Comment on above: Result Comment: Spec imens from some individuals with pathologically high gamma globulin levels may demonstrate depressed troponin values Performed By: #### 1 [id number] #### [facility] [address] [place] [address] [employer] Supervisor: Shin Flood MD ALLIED HEALTHon 02-18-2025 ALLIED HEALTH HNO ID: [id number] Author: JUNE WESTFALL CT Service: Radiology Author [...] PATIENT PRESENTS WITH AN IMPLANTABLE OR ATTACHED DISTRICT LEADER: No ALLERGIES: Reviewed and unchanged CONTRAST ALLERGY: [...] PERIPHERAL IV DATA: Inpatient - refer to [facility] documentation RADIOLOGY DEPARTMENT: CT; Exam(s) Completed: PE Study. Anesthesia: No SIGNATURE: BOBBI Patel PATIENT NAME: Jame Wallace DATE: February 18, 2025 TIME: 6:10 PM Normal [facility] Basic metabolic 2000 panelon 02-18-2025 Anion gap [Moles/Vol] 11 mmol/L Normal 8-15 [facility] Comment on above: Order Comment: Speci men Type: BLOOD SPECIMENOrdering Facility: [facility] Address: [address] [place] [address] Performed By: #### 2 4321-2, 99999-8, 22335-5 ####[facility] [place] [facility] [id number] [place] [address] [place] Calcium [Mass/Vol] 9.3 mg/dL Normal 8.5-10.2 [facility] Comment on above: Order Comment: Speci men Type: BLOOD SPECIMENOrdering Facility: [facility] Address: [address] [place] [address] Performed By: #### 2 4321-2, , 98723-7 ####[facility] [place] [facility] [id number] [place] [address] [place] Chloride [Moles/Vol] 102 mmol/L Normal 98-107 [facility] Comment on above: Order Comment: Speci men Type: BLOOD SPECIMENOrdering Facility: [facility] Address: [address] [place] [address] Performed By: #### 2 4321-2, , 07653-6 ####[facility] [place] [facility] [id number] [place] [address] [place] CO2 [Moles/Vol] 27 mmol/L Normal 22-30 [facility] Comment on above: Order Comment: Speci men Type: BLOOD SPECIMENOrdering Facility: [facility] Address: [address] [place] [address] Performed By: #### 2 4321-2, , 62347-0 ####[facility] [place] [facility] [id number] [place] [address] [place] Creatinine [Mass/Vol] 1.17 mg/dL Normal 0.73-1.22 [facility] Comment on above: Order Comment: Speci men Type: BLOOD SPECIMENOrdering Facility: [facility] Address: [address] [place] [address] Performed By: #### 2 4321-2, 14538-1, 00280-8 ####[facility] [place] [facility] [id number] [place] [address] [place] eGFRcr SerPlBld CKD-EPI 2020 72 mL/min/1.73m??? Normal >=60 [facility] Comment on above: Order Comment: Lucas olson Type: BLOOD SPECIMENOrdering Facility: [facility] Address: [address] [place] [address] Result Comment: Delaney mated Glomerular Filtration Rate [...] actual GFR. Performed By: #### 2 4321-2, 16463-1, 81895-7 ####[facility] [employer] LABCLIA [id number] [place] [address] [place] Glucose [Mass/Vol] 155 mg/dL High 74-99 [facility] Comment on above: Order Comment: Lucas olson Type: BLOOD SPECIMENOrdering Facility: [facility] Address: [address] [place] [address] Result Comment: The [place] Diabetes Association (ADA) provides guidance for cutoff [...] Standards of Medical Care in Diabetes 2016, [place] Diabetes Association. Diabetes Care. 2016.39(Suppl 1). Performed By: #### 2 4321-2, 87543-3, 27670-5 ####[facility] [employer] LABCLIA [id number] [place] [address] [place] Potassium [Moles/Vol] 4.6 mmol/L Normal 3.7-5.1 [facility] Comment on above: Order Comment: Speci men Type: BLOOD SPECIMENOrdering Facility: [facility] Address: [address] [place] [address] Performed By: #### 2 4321-2, , 79547-6 ####[facility] [place] LABCLIA [id number] [place] [address] [place] [facility] Sodium [Moles/Vol] 140 mmol/L Normal 136-144 [facility] Comment on above: Order Comment: Speci men Type: BLOOD SPECIMENOrdering Facility: [facility] Address: [address] [place] [address] Performed By: #### 2 4321-2, , 06113-5 ####[facility] LABCLIA [id number] [place] [address] [place] [facility] Urea nitrogen [Mass/Vol] 24 mg/dL Normal 9-24 [facility] Comment on above: Order Comment: Speci men Type: BLOOD SPECIMENOrdering Facility: [facility] Address: [address] [place] [address] Performed By: #### 2 4321-2, , 92143-3 ####[facility] [place] LABCLIA [id number] [place] [address] [place] CBC W Auto Differential pane l (Bld)on 02-18-2025 Basophils (Bld) [#/Vol] 0.06 10*3/uL Normal <0.11 [facility] Comment on above: Order Comment: Speci men Type: BLOOD SPECIMENOrdering Facility: [facility] Address: [address] [place] [address] Performed By: #### 5 7021-8 ####[facility] [place] LABCLIA [id number] [place] [address] [facility] Basophils/100 WBC (Bld) 0.7 % Normal [facility] Comment on above: Order Comment: Speci men Type: BLOOD SPECIMENOrdering Facility: [facility] Address: [address] [place] [address] Performed By: #### 5 7021-8 ####[facility] LABCLIA [id number] [facility] [place] [address] [facility] Differential cell count method Nom (Bld) Auto Normal [facility] Comment on above: Order Comment: Speci men Type: BLOOD SPECIMENOrdering Facility: [facility] Address: [address] [place] [address] Performed By: #### 5 7021-8 ####[facility] [place] LABCLIA [id number] [facility] [place] [address] [facility] Eosinophils (Bld) [#/Vol] 0.23 10*3/uL Normal <0.46 [facility] Comment on above: Order Comment: Speci men Type: BLOOD SPECIMENOrdering Facility: [facility] Address: [address] [place] [address] Performed By: #### 5 7021-8 ####[facility] [place] LABCLIA [id number] [place] [address] [facility] Eosinophils/100 WBC (Bld) 2.6 % Normal [facility] Comment on above: Order Comment: Speci men Type: BLOOD SPECIMENOrdering Facility: [facility] Address: [address] [place] [address] Performed By: #### 5 7021-8 ####[facility] [place] LABCLIA [id number] [facility] [place] [address] [facility] Erythrocyte distribution width (RBC) [Ratio] 13.6 % Normal 11.5-15.0 [facility] Comment on above: Order Comment: Speci men Type: BLOOD SPECIMENOrdering Facility: [facility] Address: [address] [place] [address] Performed By: #### 5 7021-8 ####[facility] [place] LABCLIA [id number] [facility] [place] [address] [facility] [place] Hematocrit (Bld) [Volume fraction] 38.1 % Low 39.0-51.0 [facility] Comment on above: Order Comment: Speci men Type: BLOOD SPECIMENOrdering Facility: [facility] Address: [address] [place] [address] Performed By: #### 5 7021-8 ####[facility] [place] LABCLIA [id number] [facility] [place] [address] [place] Hemoglobin (Bld) [Mass/Vol] 11.9 g/dL Low 13.0-17.0 [facility] Comment on above: Order Comment: Speci men Type: BLOOD SPECIMENOrdering Facility: [facility] Address: [address] [place] [address] Performed By: #### 5 7021-8 ####[facility] [place] LABCLIA [id number] [facility] [place] [address] [place] Immature granulocytes (Bld) [#/Vol] 10*3/uL Normal <0.10 [facility] Comment on above: Order Comment: Speci men Type: BLOOD SPECIMENOrdering Facility: [facility] Address: [address] [place] [address] Performed By: #### 5 7021-8 ####[facility] [place] LABCLIA [id number] [place] [address] [place] Immature granulocytes/100 WBC (Bld) 0.1 % Normal [facility] Comment on above: Order Comment: Speci men Type: BLOOD SPECIMENOrdering Facility: [facility] Address: [address] [place] [address] Performed By: #### 5 7021-8 ####[facility] [place] LABCLIA [id number] [facility] [place] [address] [place] Lymphocytes (Bld) [#/Vol] 1.56 10*3/uL Normal 1.00-4.00 [facility] Comment on above: Order Comment: Speci men Type: BLOOD SPECIMENOrdering Facility: [facility] Address: [address] [place] [address] Performed By: #### 5 7021-8 ####[facility] [place] LABCLIA [id number] [place] [address] [place] [facility] Lymphocytes/100 WBC (Bld) 17.7 % Normal [facility] Comment on above: Order Comment: Speci men Type: BLOOD SPECIMENOrdering Facility: [facility] Address: [address] [place] [address] Performed By: #### 5 7021-8 ####[facility] LABCLIA [id number] [place] [address] [facility] MCH (RBC) [Entitic mass] 31.1 pg Normal 26.0-34.0 [facility] Comment on above: Order Comment: Speci men Type: BLOOD SPECIMENOrdering Facility: [facility] Address: [address] [place] [address] Performed By: #### 5 7021-8 ####[facility] LABCLIA [id number] MCHC (RBC) [Mass/Vol] 31.2 g/dL Normal 30.5-36.0 [facility] Comment on above: Order Comment: Speci men Type: BLOOD SPECIMENOrdering Facility: [facility] Address: [address] [place] [address] Performed By: #### 5 7021-8 ####[facility] LABCLIA [id number] [place] [address] [place] MCV (RBC) [Entitic vol] 99.5 fL Normal 80.0-100.0 [facility] Comment on above: Order Comment: Speci men Type: BLOOD SPECIMENOrdering Facility: [facility] Address: [address] [place] [address] Performed By: #### 5 7021-8 ####[facility] LABCLIA [id number] [place] [address] [facility] [place] Monocytes (Bld) [#/Vol] 1.00 10*3/uL High <0.87 [facility] Comment on above: Order Comment: Speci men Type: BLOOD SPECIMENOrdering Facility: [facility] Address: [address] [place] [address] Performed By: #### 5 7021-8 ####[facility] [place] LABCLIA [id number] [facility] [place] [address] [place] Monocytes/100 WBC (Bld) 11.4 % Normal [facility] Comment on above: Order Comment: Speci men Type: BLOOD SPECIMENOrdering Facility: [facility] Address: [address] [place] [address] Performed By: #### 5 7021-8 ####[facility] [place] LABCLIA [id number] [place] [address] [place] Neutrophils (Bld) [#/Vol] 5.93 10*3/uL Normal 1.45-7.50 [facility] Comment on above: Order Comment: Speci men Type: BLOOD SPECIMENOrdering Facility: [facility] Address: [address] [place] [address] Performed By: #### 5 7021-8 ####[facility] [place] LABCLIA [id number] [facility] [place] [address] [place] Neutrophils/100 WBC (Bld) 67.5 % Normal [facility] Comment on above: Order Comment: Speci men Type: BLOOD SPECIMENOrdering Facility: [facility] Address: [address] [place] [address] Performed By: #### 5 7021-8 ####[facility] [place] LABCLIA [id number] [place] [address] [place] Nucleated RBC (Bld) [#/Vol] Normal [facility] Comment on above: Order Comment: Speci men Type: BLOOD SPECIMENOrdering Facility: [facility] Address: [address] [place] [address] Performed By: #### 5 7021-8 ####[facility] [place] LABCLIA [id number] [place] [address] [place] Nucleated RBC/100 WBC (Bld) [Ratio] Normal [facility] Comment on above: Order Comment: Speci men Type: BLOOD SPECIMENOrdering Facility: [facility] Address: [address] [place] [address] Performed By: #### 5 7021-8 ####[facility] [place] LABCLIA [id number] [place] [address] [place] Platelet mean volume (Bld) [Entitic vol] 12.4 fL Normal 9.0-12.7 [facility] Comment on above: Order Comment: Speci men Type: BLOOD SPECIMENOrdering Facility: [facility] Address: [address] [place] [address] Performed By: #### 5 7021-8 ####[facility] LABCLIA [id number] [facility] [place] [address] [place] Platelets (Bld) [#/Vol] 207 10*3/uL Normal 150-400 [facility] Comment on above: Order Comment: Speci men Type: BLOOD SPECIMENOrdering Facility: [facility] Address: [address] [place] [address] Performed By: #### 5 7021-8 ####[facility] LABCLIA [id number] [facility] [place] [address] [place] RBC (Bld) [#/Vol] 3.83 10*6/uL Low 4.20-6.00 [facility] Comment on above: Order Comment: Speci men Type: BLOOD SPECIMENOrdering Facility: [facility] Address: [address] [place] [address] Performed By: #### 5 7021-8 ####[facility] [place] LABCLIA [id number] [facility] [place] [address] [place] WBC (Bld) [#/Vol] 8.79 10*3/uL Normal 3.70-11.00 [facility] Comment on above: Order Comment: Speci men Type: BLOOD SPECIMENOrdering Facility: [facility] Address: [address] [place] [address] Performed By: #### 5 7021-8 ####[facility] [employer] [facility]JAMEL [id number] [place] [address] [place] CTA CHEST (NON GATED) W [...] Few enlarged mediastinal lymph nodes, possibly reactive. Director Of Marketing Communications: PSC[employer] Transcribe Date/Time: Feb 18 2025 7:23P Dictated by : LUZ MARINA CHANCE MD This examination was interpreted and the report reviewed and electronically signed by: LUZ MARINA CHANCE MD on Feb 18 2025 7:33PM EST [id number] Normal [facility] ED NOTEon 02-18-2025 ED NOTE HNO ID: [id number] Author: MALIKA MARTIN RN Service: Emergency Medicine Author Type: Registered Nurse Type: ED Notes Filed: 02/18/2025 22:20 Note Text: Bed received from nursing supervisor metal placing at [facility]. Patient to go to [facility] Nurse to nurse: [phone] [facility] ETA: Will call us back Normal [facility] ED NOTE HNO ID: [id number] Author: MALIKA MARTIN RN Service: Emergency Medicine Author Type: Registered Nurse Type: ED Notes Filed: 02/18/2025 20:14 Note Text: Eryn from [facility] called back - they can accommodate. Per Eryn call Dr. Herlinda Gatica at [phone] for admission Normal [facility] ED NOTE HNO ID: [id number] Author: MALIKA MARTIN RN Service: Emergency Medicine Author Type: Registered Nurse Type: ED Notes Filed: 02/18/2025 20:07 Note Text: [facility] called for bed availability- will call me back Normal [facility] ED NOTE HNO ID: [id number] Author: CONSTANZA MENENDEZ RN Service: ? Author Type: Registered Nurse Type: ED Notes Filed: 02/18/2025 19:14 Note Text: Report to [facility] ED NOTE HNO ID: [id number] Author: CONSTANZA MENENDEZ RN Service: ? Author Type: Registered Nurse Type: ED Notes Filed: 02/18/2025 18:02 Note Text: While collecting labs, pt 02 sat is dipping to 88-90%, pt placed on 2LNC. Dr Crespo notified of oxygen placement. Pt spouse shared with me that the daughter found the pt sleeping at home earlier today "she sent me a picture and his eyelids were purple". Normal [facility] ED NOTE HNO ID: [id number] Author: CONSTANZA MENENDEZ RN Service: ? Author Type: Registered Nurse Type: ED Notes Filed: 02/18/2025 16:46 Note Text: Pt arrives with report of Shortness of Breath which began yesterday "gradually during the day." Denies recent illness. 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 Pt is reporting right sided chest pain with radiation into his back, not exacerbated by movement. Pt rates that pain 8/10 Pt placed on laboratory monitor, EKG paged. 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 [...] get ca (more content not included)... Normal [facility] EKGon 02-18-2025 Electrocardiogram Ventricular Rate : 6 6 BPM Atrial Rate : 66 BPM P-R Interval : 130 ms QRS Duration : 136 ms Q-T Interval : 438 ms QTC Calculation(Bazett) : 459 ms Calculated P [place] : 21 degrees Calculated R [place] : -6 degrees Calculated T [place] : 16 degrees NORMAL SINUS RHYTHM RIGHT BUNDLE BRANCH BLOCK ABNORMAL ECG NO PREVIOUS ECGS AVAILABLE comparison 2007 bundle branch block is new Confirmed by MACARIO CRESPO MD ([id number]) on 02/18/2025 5:56:20 PM NAME : JAME WALLACE PID : [id number] : 1965 Gender : Male Race : ORD : Procedure Date : Feb 18 2025 16:46:23 Edit Date : Feb 18 2025 17:56:22 Diagnosis: NORMAL SINUS RHYTHM RIGHT BUNDLE BRANCH BLOCK ABNORMAL ECG NO PREVIOUS ECGS AVAILABLE comparison 2007 bundle branch block is new Confirmed by MACARIO CRESPO MD ([id number]) on 02/18/2025 5:56:20 PM Test Reason : Location : 150 : [place] Overread By : MACARIO CRESPO MD Edited By : MACARIO CRESPO MD Referred By : , Acquired by : JAMIN OBREGON [facility] HIGH SENSITIVITY TROPONIN To n 02-18-2025 Troponin T.cardiac High sensitivity method [Mass/Vol] 19 ng/L High <12 [facility] Comment on above: Order Comment: Speci men Type: BLOOD SPECIMENOrdering Facility: [facility] Address: [address] [place] [address] Performed By: #### H STNT ####[facility] LABCLIA [id number] [place], [place] [id number] [place] [address] Troponin T.cardiac High sensitivity method [Mass/Vol] 19 ng/L High <12 [facility] Comment on above: Order Comment: Speci [facility] Type: BLOOD SPECIMENOrdering Facility: [facility] Address: [address] [place] [address] Performed By: #### H STNT ####[facility] LABCLIA [id number] [place], [place] [id number] [place] [address] [place] Magnesium SerPl-ncon 02-18 Magnesium [Mass/Vol] 1.8 mg/dL Normal 1.7-2.3 [facility] Comment on above: Order Comment: Speci men Type: BLOOD SPECIMENOrdering Facility: [facility] Address: [address] [place] [address] Performed By: #### 2 4321-2, 49722-7, 44369-5 ####[facility] LABCLIA [id number] [place] [address] [place] NT-proBNP SerPl-mCncon 02-18 Natriuretic peptide.B prohormone N-Terminal [Mass/Vol] 1901 pg/mL High <125 [facility] Comment on above: Order Comment: Speci men Type: BLOOD SPECIMENOrdering Facility: [facility] Address: [place] [address] Performed By: #### 2 4321-2, 72170-1, 38824-0 ####[facility] [place] LABCLIA [id number] [place] [address] [facility] AUTO DIFFon 02-16-2025 Baso Count 0.08 x1000 Normal 0.00-0.20 [facility] Comment on above: Performed By: #### 1 29104, 2037048, 265707, 694730 #### [facility] [address] [place] [address] [employer] Supervisor: Shin Flood MD Basos % 1.0 % Normal [facility] Comment on above: Performed By: #### 1 90840, 6420020, 753992, 556636 #### [facility] [address] [place] [address] [employer] Supervisor: Shin Flood MD Eos Count 0.19 x1000 Normal 0.00-0.50 [facility] Comment on above: Performed By: #### 1 06075, 8504891, 263147, 226616 #### [facility] [address] [place] [address] [employer] Supervisor: Shin Flood MD Eosinophils/100 WBC (Bld) 2.6 % Normal [facility] Comment on above: Performed By: #### 1 28522, 0287330, 903012, 445052 #### [facility] [address] [place] [address] [employer] Supervisor: Shin Flood MD Lymph Count 1.53 x1000 Normal 1.20-4.80 [facility] Comment on above: Performed By: #### 1 22674, 9809154, 131761, 429784 #### [facility] [address] [place] [address] [employer] Supervisor: Shin Flood MD Lymphocytes/100 WBC (Bld) 20.6 % Normal [facility] Comment on above: Performed By: #### 1 13507, 1292645, 004308, 129322 #### [facility] [address] [place] [address] [employer] Supervisor: Shin Flood MD [place] Count 0.75 x1000 Normal 0.10-1.00 [facility] Comment on above: Performed By: #### 1 57145, 0868632, 153169, 315101 #### [facility] [address] [place] [address] [employer] Supervisor: Shin Flood MD Monocytes/100 WBC (Bld) 10.1 % Normal [facility] Comment on above: Performed By: #### 1 86105, 8832734, 819153, 548684 #### [facility] [address] [place] [address] [employer] Supervisor: Shin Flood MD Neutrophil Count (ANC) 4.89 x1000 Normal 1.40-8.80 [facility] Comment on above: Performed By: #### 1 41242, 9326269, 461173, 910014 #### [facility] [address] [place] [address] [employer] Supervisor: Shin Flood MD Neutrophils/100 WBC (Bld) 65.8 % Normal [facility] Comment on above: Performed By: #### 1 71571, 6747185, 121717, 348951 #### [facility] [address] [place] [address] [employer] Supervisor: MD VIKTOR AcevedoMETShanelle 02-16-2025 Albumin [Mass/Vol] 3.3 g/dL Low 3.4-5.0 [facility] Comment on above: Performed By: #### 1 25327, 5832387, 998018, 819819 #### [facility] [address] [place] [address] [employer] Supervisor: Shin Flood MD Albumin/Globulin [Mass ratio] 0.9 {ratio} Normal [facility] Comment on above: Performed By: #### 1 87431, 0615346, 176517, 445826 #### [facility] [address] [place] [address] [employer] Supervisor: Shin Flood MD Alk Phos 108 unit/L Normal 45-117 [facility] Comment on above: Performed By: #### 1 23169, 9930669, 895784, 082271 #### [facility] [address] [place] [address] [employer] Supervisor: Shin Flood MD Bilirubin [Mass/Vol] 0.40 mg/dL Normal 0.30-1.20 [facility] Comment on above: Result Comment: Use of this assay is not recommended for patients undergoing treatment with eltrombopag due to the potential for falsely elevated results. Performed By: #### 1 32170, 4398013, 721410, 826245 #### [facility] [address] [place] [address] [employer] Supervisor: Shin Flood MD Calcium [Mass/Vol] 9.0 mg/dL Normal 8.7-10.4 [facility] Comment on above: Performed By: #### 1 32669, 9924747, 670579, 040890 #### [facility] [address] [place] [address] [employer] Supervisor: Shin Flood MD Chloride [Moles/Vol] 106 mmol/L Normal 98-107 [facility] Comment on above: Performed By: #### 1 77317, 6154384, 313615, 835519 #### [facility] [address] [place] [address] [employer] Supervisor: Shin Flood MD CO2 [Moles/Vol] 34.0 mmol/L High 20.0-31.0 [facility] Comment on above: Performed By: #### 1 99094, 3908559, 946334, 997646 #### [facility] [address] [place] [address] [employer] Supervisor: Shin Flood MD Creatinine [Mass/Vol] 1.1 mg/dL Normal 0.6-1.1 [facility] Comment on above: Performed By: #### 1 58407, 5580732, 156804, 553022 #### [facility] [address] [place] [address] [employer] Supervisor: Shin Flood MD GFR AA >60 Normal [facility] Comment on above: Result Comment: Afri can [place] GFR Calc Medical judgement is necessary to [...] MDRD GFR equation Performed By: #### 1 93792, 5559127, 221595, 631307 #### [facility] [address] [place] [address] [employer] Supervisor: Shin Flood MD Globulin (S) [Mass/Vol] 3.7 g/dL Normal [facility] Comment on above: Performed By: #### 1 68033, 5065809, 453686, 275437 #### [facility] [address] [place] [address] [employer] Supervisor: Shin Flood MD Glomerular Filtration Rate >60 Normal [facility] Comment on above: Result Comment: Non- [...] MDRD GFR equation Performed By: #### 1 19641, [id number], 611655, 701547 #### [facility] [address] [place] [address] [employer] Supervisor: Shin Flood MD Glucose [Mass/Vol] 123 mg/dL High 74-106 [facility] Comment on above: Performed By: #### 1 19629, [id number], 417159, 137767 #### [facility] [id number] [place] [address] [employer] Supervisor: Shin Flood MD GOT 20 unit/L Normal 15-37 [facility] Comment on above: Performed By: #### 1 38792, 0244221, 424950, 249445 #### [facility] [address] [place] [address] [employer] Supervisor: Shin Flood MD GPT 16 unit/L Normal 10-49 [facility] Comment on above: Performed By: #### 1 28663, [id number], 903299, 522990 #### [facility] [address] [place] [address] [employer] Supervisor: Shin Flood MD Osmolality [Osmolality] 292 mosm/kg Normal 275-295 [facility] Comment on above: Performed By: #### 1 55363, [id number], 008596, 952016 #### [facility] [address] [place] [address] [employer] Supervisor: Shin Flood MD Potassium [Moles/Vol] 4.6 mmol/L Normal 3.5-5.1 [facility] Comment on above: Result Comment: Spec imen slightly hemolyzed. Results may be affected. Performed By: #### 1 24194, [id number], 070404, 502423 #### [facility] [address] [place] [address] [employer] Supervisor: Shin Flood MD Protein [Mass/Vol] 7.0 g/dL Normal 5.7-8.2 [facility] Comment on above: Result Comment: Tota l Protein results may be increased in patients receiving dextran as a blood volume pcu rn Performed By: #### 1 60120, 1037562, 785284, 297775 #### [facility] [address] [place] [address] [employer] Supervisor: Shin Flood MD Sodium [Moles/Vol] 145 mmol/L Normal 135-145 [facility] Comment on above: Performed By: #### 1 26314, 0640861, 709544, 402957 #### [facility] [address] [place] [address] [employer] Supervisor: Shin Flood MD Urea nitrogen [Mass/Vol] 17 mg/dL Normal 9-23 [facility] Comment on above: Result Comment: - Ve nipuncture should occur prior to N-Acetyl Cysteine (NAC) or Metamizole (Sulpyrine) administration due to the potential for falsely depressed results. - Blood samples from some patients with monoclonal gammopathies may produce falsely elevated results Performed By: #### 1 57621, 1998528, 827177, 283963 #### [facility] [address] [place] [address] [employer] Supervisor: Shin Flood MD Urea nitrogen/Creatinine [Mass ratio] 15.5 mg/mg Normal [facility] Comment on above: Performed By: #### 1 91683, 5970376, 589814, 468716 #### [facility] [address] [place] [address] [employer] Supervisor: Shin Flood MD ED Physician Reporton 2024 [...] ureteral stone. He was previously evaluated at [facility] a week ago, where a CT scan revealed a non-obstructing proximal 8mm right ureteral stone at the right pelvic ureteral junction. The pain has acutely worsened since yesterday and became severe overnight. He reports decreased urine output last night but denies nausea or vomiting. He was previously prescribed Flomax. He has been under the care of a urologist (Doctor Azul, Urology) but is unable to wait for [...] Urinalysis - Pain management - Consult with [facility] RE-EVALUATION AT 14:58 - Labs unremarkable. - Urinalysis positive: 75 leukocytes, 310 WBCs. - X-ray unable to visualize the stone. RE-EVALUATION AT 15:18 - Case discussed with Harshal from [facility]. - Patient is scheduled in one week [...] antiemetic for nausea. - Close follow-up with [facility] recommended; patient instructed to call if [...] The case was discussed with Harshal from [facility], who recommended discharge with pain control [...] making a (more content not included)... Normal [facility] HEMOon 02-16-2025 DIFF? No Normal [facility] Comment on above: Performed By: #### 1 27304, 5605236, 038968, 442311 #### [facility] [address] [place] [address] [employer] Supervisor: Shin Flood MD Erythrocyte distribution width (RBC) [Ratio] 14.3 % Normal 11.5-14.5 [facility] Comment on above: Performed By: #### 1 27653, [id number], 662001, 115262 #### [facility] [address] [place] [address] [employer] Supervisor: Shin Flood MD Hematocrit (Bld) [Volume fraction] 39.5 % Low 41.0-52.0 [facility] Comment on above: Performed By: #### 1 39390, 9620361, 094404, 092656 #### [facility] [address] [place] [address] [employer] Supervisor: Shin Flood MD Hemoglobin (Bld) [Mass/Vol] 13.0 g/dL Low 13.5-17.5 [facility] Comment on above: Performed By: #### 1 36821, 3036300, 762973, 415288 #### [facility] [address] [place] [address] [employer] Supervisor: Shin Flood MD Instr WBC 7.4 Normal [facility] Comment on above: Performed By: #### 1 38628, 6985516, 799319, 048501 #### [facility] [address] [place] [address] [employer] Supervisor: Shin Flood MD MCH (RBC) [Entitic mass] 31.3 pg Normal 27.0-34.0 [facility] Comment on above: Performed By: #### 1 08370, 9270847, 119115, 393891 #### [facility] [address] [place] [address] [employer] Supervisor: Shin Flood MD MCHC (RBC) [Mass/Vol] 33.0 g/dL Normal 32.0-37.0 [facility] Comment on above: Performed By: #### 1 36827, 6552613, 096934, 381199 #### [facility] [address] [place] [address] [employer] Supervisor: Shin Flood MD MCV (RBC) [Entitic vol] 94.8 fL Normal 80.0-100.0 [facility] Comment on above: Performed By: #### 1 83913, 8211605, 471184, 650756 #### [facility] [address] [place] [address] [employer] Supervisor: Shin Flood MD MDW 16.34 Normal 13.98-20.0 0 [facility] Comment on above: Result Comment: MDW [...] the risk of Sepsis. Performed By: #### 1 90075, 4356833, 092001, 781544 #### [facility] [address] [place], [place] [address] [employer] Supervisor: Shin Flood MD Nucleated RBC 0 /100WBC Normal [facility] Comment on above: Performed By: #### 1 34653, 1034160, 241411, 136712 #### [facility] [address] [place] [address] [employer] Supervisor: Shin Flood MD Platelet 202 x10 Normal 150-450 [facility] Comment on above: Performed By: #### 1 49969, 5790751, 534958, 415802 #### [facility] [address] [place] [address] [employer] Supervisor: Shin Flood MD Platelet mean volume (Bld) [Entitic vol] 10.4 fL Normal 7.4-10.4 [facility] Comment on above: Performed By: #### 1 95239, 9622480, 821499, 401712 #### [facility] [address] [place] [address] [employer] Supervisor: Shin Flood MD RBC 4.17 x10 Low 4.70-6.10 [facility] Comment on above: Result Comment: Note : RBC morphology is normal unless otherwise stated. Evaluation performed only if differential is requested. Performed By: #### 1 18237, 7063846, 671978, 924481 #### [facility] [address] [place] [address] [employer] Supervisor: Shin Flood MD WBC 7.4 x10 Normal 4.5-11.0 [facility] Comment on above: Performed By: #### 1 62669, 8338719, 280199, 188092 #### [facility] [address] [place] [address] [employer] Supervisor: Shin Flood MD LIPon 02-16-2025 Lipase [Catalytic activity/Vol] 29 U/L Normal 12-53 [facility] Comment on above: Performed By: #### 1 68038, 8733055, 365780, 627821 #### [facility] [address] [place] [address] [employer] Supervisor: Shin Flood MD LaboratoryOrdered By: SYSTEM SYSTEM on 02-16-2025 Estimated Creatinine Clearance 85.11 mL/min [facility] Work Phone: Albumin BCP dye [Mass/Vol] 3.3 g/dL Low 3.4 - 5.0 g/dL ADM RES Albumin/Globulin [Mass ratio] 0.9 {ratio} Invalid Interpretation Code SW ADM RES ALP [Catalytic activity/Vol] 108 U/L Normal 45 - 117 unit/L ADM RES ALT With P-5'-P [Catalytic activity/Vol] 16 U/L Normal 10 - 49 unit/L SW [...] 4 mg/dL SW ADM RES Chloride [Moles/Vol] 106 mmol/L Normal [...] Comment on above: Result Comment: Afri can Micronesian GFR Calc Interpretive Data: " Medical judgement is necessary to interpret GFR. The calculated GFR may not accurately reflect renal status in patients >70 years, women, acutely ill hospitalized patients and patients with acute renal failure or known renal disease. The MDRD GFR formula is valid only for adults greater than 18 years of age." Note: Creatinine clearance (not GFR) should be used for drug dosing. Calculated result performed using the MDRD GFR equation GFR/1.73 sq M.predicted MDRD (S/P/Bld) [Vol rate/Area] mL/min/1.73m Invalid Interpretation Code ADM RES Comment on above: Result Comment: Non- GFR Calc Interpretive Data: " Medical judgement is necessary to interpret GFR. The calculated GFR may not accurately reflect renal status in patients >70 years, women, acutely ill hospitalized patients and patients with acute renal failure or known renal disease. The MDRD GFR formula is valid only for adults greater than 18 years of age." Note: Creatinine clearance (not GFR) should be [...] 292 mOsm/kg Normal 275 - 295 mOsm/kg [facility] Platelet mean volume (Bld) [Entitic vol] 10.4 fL Normal 7.4 - 10.4 fL [facility] [address] MPL Platelets (Bld) [#/Vol] 202 10*3/uL Normal 150 - 450 x10^3/uL [facility] [address] M[address] Potassium [Moles/Vol] 4.6 mmol/L Normal 3.5 - 5.1 mmol/L [facility] Comment on above: Result Comment: Spec imen slightly hemolyzed. Results may be affected. Protein [Mass/Vol] 7.0 g/dL Normal 5.7 - 8.2 g/dL [facility] Comment on above: Interpretive Data: T otal Protein results may be increased in patients receiving dextran as a blood volume pcu rn RBC (Bld) [#/Vol] 4.17 10*6/uL Low 4.70 - 6.10 x10^6/uL [facility] [address] Comment on above: Interpretive Data: N ote: RBC morphology is normal unless otherwise stated. Evaluation performed only if differential is requested. Sodium [Moles/Vol] 145 mmol/L Normal 135 - 145 mmol/L [facility] Urea nitrogen [Mass/Vol] 17 mg/dL Normal 9 - 23 mg/dL [facility] Comment on above: Interpretive Data: - Venipuncture should occur prior to N- Acetyl Cysteine (NAC) or Metamizole (Sulpyrine) administration due to the potential for falsely depressed results. - Blood samples from some patients with monoclonal gammopathies may produce falsely elevated results Urea nitrogen/Creatinine [Mass ratio] 15.5 mg/mg Invalid Interpretation Code [facility] WBC corrected for nucl RBC Auto [...] UA UAon 02-16-2025 U MICRO Indicated Normal [facility] Comment on above: Performed By: #### 1 59700 #### [facility] [address] [place], [place] [address] [employer] Supervisor: Shin Flood MD Appearance, U Hazy Abnormal Clear [facility] Comment on above: Performed By: #### 1 07283 #### [facility] [address] [place] [address] [employer] Supervisor: Shin Flood MD Bilirubin, U Negative Normal Negative [facility] Comment on above: Result Comment: Bili etienne, U: Initial positive urine bilirubin results are not confirmed. Interfering substances may include elevated urobilinogen. Trace = 0.5-1.0 mg/dL Small = 2.0-4.0 mg/dL Moderate = 6.0-8.0 mg/dL Large = 10 mg/dl and greater Performed By: #### 1 88205 #### [facility] [address] [place] [address] [employer] Supervisor: Shin Flood MD Blood, U > 1.0 mg/dl Abnormal Negative [facility] Comment on above: Result Comment: Bloo d, U: Trace = 0.03-0.05 mg/dL Small = 0.06-0.1 mg/dL Moderate = 0.2-0.5 mg/dL Large = 1.0 mg/dL and greater Performed By: #### 1 52828 #### [facility] [address] [place] [address] [employer] Supervisor: Shin Flood MD Calcium Oxalate Crystals Many Normal [facility] Comment on above: Performed By: #### 1 80437 #### [facility] [address] [place] [address] [employer] Supervisor: Shin Flood MD Color, U Yellow Normal Yellow [facility] Comment on above: Performed By: #### 1 09995 #### [facility] [address] [place], [place] [address] [employer] Supervisor: Shin Flood MD Glucose Qual, U 200 mg/dl Abnormal Negative [facility] Comment on above: Performed By: #### 1 83852 #### [facility] [address] [place] [address] [employer] Supervisor: Shin Flood MD Ketones, U Negative Normal Negative [facility] Comment on above: Performed By: #### 1 54372 #### [facility] [address] [place], [place] [address] [employer] Supervisor: Shin Flood MD Leukocyte Esterase, U 75 Emily/ul Abnormal Negative [facility] Comment on above: Result Comment: Leuk ocyte Esterase, U: Trace = 25 Emily/uL Small = 75 Emily/uL Moderate = 250 Emily/uL Large = 500 Emily/uL and greater Performed By: #### 1 89482 #### [facility] [address] [place], [place] [address] [employer] Supervisor: Shin Flood MD Mucous, U Occasional Normal [facility] Comment on above: Performed By: #### 1 82865 #### [facility] [address] [place], [place] [address] [employer] Supervisor: Shin Flood MD Nitrite, U Negative Normal Negative [facility] Comment on above: Performed By: #### 1 47183 #### [facility] [address] [place], [place] [address] [employer] Supervisor: Shin Flood MD pH, U 5.5 Normal 4.5-8.0 [facility] Comment on above: Performed By: #### 1 27688 #### [facility] [address] [place], [place] [address] [employer] Supervisor: Sihn Flood MD Protein, U 20 mg/dl Abnormal Negative [facility] Comment on above: Performed By: #### 1 14177 #### [facility] [address] [place] [address] [employer] Supervisor: Shin Flood MD RBC/HPF, U >150 High 0-3 [facility] Comment on above: Performed By: #### 1 45871 #### [facility] [address] [place], [place] [address] [employer] Supervisor: Shin Flood MD Specific [place], U 1.029 Normal 1.001-1. 03 5 [facility] Comment on above: Performed By: #### 1 35442 #### [facility] [address] [place], [place] [address] [employer] Supervisor: Shin Flood MD Urobilinogen Qual, U < 2 mg/dl Normal < 2 mg/dl [facility] Comment on above: Result Comment: Urob ilinogen, U: EU/dl and mg/dl are equivalent units. Performed By: #### 1 52919 #### [facility] [address] [place], [place] [address] [employer] Supervisor: Shin Flood MD WBC/HPF, U 10 #/HPF High 0-5 [facility] Comment on above: Performed By: #### 1 40376 #### [facility] [address] [place] [address] [employer] Supervisor: Shin Flood MD XR ABDOMEN 1V PORTABLEon [...] OG MD Signed Out: 02/16/25 14:21:41 Normal [facility] ALLIED HEALTHon 02-07-2025 ALLIED HEALTH HNO ID: [id number] Author: EMMA JULES RT(R) Service: Radiology Author [...] PATIENT PRESENTS WITH AN IMPLANTABLE OR ATTACHED DISTRICT LEADER: No ALLERGIES: Reviewed and unchanged CONTRAST ALLERGY: [...] February 07, 2025 TIME: 5:44 PM Normal [facility] Basic metabolic 2000 panelon 02-07-2025 Anion gap [Moles/Vol] 11 mmol/L Normal 8-15 [facility] Comment on above: Order Comment: Speci men Type: BLOOD SPECIMENOrdering Facility: [facility] Address: [address] [place] [address] Performed By: #### 2 4321-2 ####[facility]CLIA [id number] [facility] [place] [address] [place] Calcium [Mass/Vol] 9.4 mg/dL Normal 8.5-10.2 [facility] Comment on above: Order Comment: Speci men Type: BLOOD SPECIMENOrdering Facility: [facility] Address: [address] [place] [address] Performed By: #### 2 4321-2 ####[facility] LABCLIA [id number] [place] [address] [place] Chloride [Moles/Vol] 101 mmol/L Normal 98-107 [facility] Comment on above: Order Comment: Speci men Type: BLOOD SPECIMENOrdering Facility: [facility] Address: [address] [place] [address] Performed By: #### 2 4321-2 ####[facility] LABCLIA [id number] [place] [address] [place] CO2 [Moles/Vol] 27 mmol/L Normal 22-30 [facility] Comment on above: Order Comment: Speci men Type: BLOOD SPECIMENOrdering Facility: [facility] Address: [address] [place] [address] Performed By: #### 2 4321-2 ####[facility] LABCLIA [id number] [place] [address] [place] Creatinine [Mass/Vol] 1.13 mg/dL Normal 0.73-1.22 [facility] Comment on above: Order Comment: Lucas olson Type: BLOOD SPECIMENOrdering Facility: [facility] Address: [address] [place], [place] [address] Performed By: #### 2 4321-2 ####[facility] LABCLIA [id number] [place] [address] [place] eGFRcr SerPlBld CKD-EPI 2020 75 mL/min/1.73m??? Normal >=60 [facility] Comment on above: Order Comment: Phuctay olson Type: BLOOD SPECIMENOrdering Facility: [facility] Address: [address] [place] [address] Result Comment: Delaney mated Glomerular Filtration Rate [...] actual GFR. Performed By: #### 2 4321-2 ####[facility] LABCLIA [id number] [place] [address] [place] Glucose [Mass/Vol] 119 mg/dL High 74-99 [facility] Comment on above: Order Comment: Lucas olson Type: BLOOD SPECIMENOrdering Facility: [facility] Address: [address] [place] [address] Result Comment: The [place]ron[place] Diabetes Association (ADA) provides guidance for cutoff [...] Standards of Medical Care in Diabetes 2016, [place] Diabetes Association. Diabetes Care. 2016.39(Suppl 1). Performed By: #### 2 4321-2 ####[facility] LABCLIA [id number] [facility] [place] [address] [place] Potassium [Moles/Vol] 4.5 mmol/L Normal 3.7-5.1 [facility] Comment on above: Order Comment: Speci men Type: BLOOD SPECIMENOrdering Facility: [facility] Address: [address] [place] [address] Performed By: #### 2 4321-2 ####[facility] [employer] LABCLIA [id number] [place] [address] [place] Sodium [Moles/Vol] 139 mmol/L Normal 136-144 [facility] Comment on above: Order Comment: Speci men Type: BLOOD SPECIMENOrdering Facility: [facility] Address: [address] [place] [address] Performed By: #### 2 4321-2 ####[facility] [employer] [employer] LABCLIA [id number] [place] [address] [place] Urea nitrogen [Mass/Vol] 14 mg/dL Normal 9-24 [facility] Comment on above: Order Comment: Speci men Type: BLOOD SPECIMENOrdering Facility: [facility] Address: [address] [place] [address] Performed By: #### 2 4321-2 ####[facility] [employer] [employer] LABCLIA [id number] [place] [address] [place] CBC panel Auto (Bld)on 02-07 Erythrocyte distribution width (RBC) [Ratio] 13.7 % Normal 11.5-15.0 [facility] Comment on above: Order Comment: Speci men Type: BLOOD SPECIMENOrdering Facility: [facility] Address: [address] [place] [address] Performed By: #### 5 8410-2 ####[facility] [employer] LABCLIA [id number] [facility] [place] [address] [facility] Hematocrit (Bld) [Volume fraction] 41.2 % Normal 39.0-51.0 [facility] Comment on above: Order Comment: Speci men Type: BLOOD SPECIMENOrdering Facility: [facility] Address: [address] [place] [address] Performed By: #### 5 8410-2 ####[facility] LAB[facility] [id number] [place] [address] [place] [facility] Hemoglobin (Bld) [Mass/Vol] 12.9 g/dL Low 13.0-17.0 [facility] Comment on above: Order Comment: Speci men Type: BLOOD SPECIMENOrdering Facility: [facility] Address: [address] [place] [address] Performed By: #### 5 8410-2 ####[facility] LAB[facility]IA [id number] [place] [address] [place] MCH (RBC) [Entitic mass] 30.5 pg Normal 26.0-34.0 [facility] Comment on above: Order Comment: Speci men Type: BLOOD SPECIMENOrdering Facility: [facility] Address: [address] [place] [address] Performed By: #### 5 8410-2 ####[facility] LABCLIA [id number] [place] [address] [place] MCHC (RBC) [Mass/Vol] 31.3 g/dL Normal 30.5-36.0 [facility] Comment on above: Order Comment: Speci men Type: BLOOD SPECIMENOrdering Facility: [facility] Address: [address] [place] [address] Performed By: #### 5 8410-2 ####[facility] LABCLIA [id number] [place] [address] [facility] [place] MCV (RBC) [Entitic vol] 97.4 fL Normal 80.0-100.0 [facility] Comment on above: Order Comment: Speci men Type: BLOOD SPECIMENOrdering Facility: [facility] Address: [address] [place] [address] Performed By: #### 5 8410-2 ####[facility] LABCLIA [id number] [facility] [place] [address] [place] Platelet mean volume (Bld) [Entitic vol] 11.2 fL Normal 9.0-12.7 [facility] Comment on above: Order Comment: Speci men Type: BLOOD SPECIMENOrdering Facility: [facility] Address: [address] [place] [address] Performed By: #### 5 8410-2 ####[facility] LABCLIA [id number] [place] [address] [place] Platelets (Bld) [#/Vol] 227 10*3/uL Normal 150-400 [facility] Comment on above: Order Comment: Speci men Type: BLOOD SPECIMENOrdering Facility: [facility] Address: [address] [place] [address] Performed By: #### 5 8410-2 ####[facility] LABCLIA [id number] [place] [address] [place] RBC (Bld) [#/Vol] 4.23 10*6/uL Normal 4.20-6.00 [facility] Comment on above: Order Comment: Speci men Type: BLOOD SPECIMENOrdering Facility: [facility] Address: [address] [place] [address] Performed By: #### 5 8410-2 ####[facility] LABCLIA [id number] [place] [address] [place] WBC (Bld) [#/Vol] 8.92 10*3/uL Normal 3.70-11.00 [facility] Comment on above: Order Comment: Speci men Type: BLOOD SPECIMENOrdering Facility: [facility] Address: [address] [place] [address] Performed By: #### 5 8410-2 ####[facility] LABCLIA [id number] [place] [address] [facility] [place] [address] ABD/PEL W IVCONon 025 CT ABD/PEL W IVCON * * *Final Report* * * DATE OF EXAM: Feb 07 2025 5:43PM [facility] 0530 - CT ABD/PEL W IVCON / [...] cm stone at the right pelviureteral junction. Director Of Marketing Communications: PSCB Transcribe Date/Time: Feb 07 2025 7:47P Dictated by : JUNIE FERRARO MD This examination was interpreted and the report reviewed and electronically signed by: JUNIE FERRARO MD on Feb 07 2025 7:53PM EST [id number] Normal [facility] ED NOTEon 02-07-2025 ED NOTE HNO ID: [id number] Author: LISSET MACIAS RN Service: Emergency Medicine [...] anything else to help you? No Normal [facility] ED NOTE HNO ID: [id number] Author: MANDO RINCON RN Service: Nursing Author Type: Registered Nurse Type: ED Notes Filed: 02/07/2025 20:25 Note Text: Pt verbalizes understanding of discharge instructions. Pt able to ambulate out of ED. 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 Trans (more content not included)... Normal [facility] Urinalysis complete panel (U )on 02-07-2025 Bacteria LM.HPF (Urine sed) [#/Area] Few Abnormal None Seen [facility] Comment on above: Order Comment: Speci men Type: URINE SPECIMENOrdering Facility: [facility] Address: [address] [place] [address] Performed By: #### 2 4356-8 ####[facility] LABCLIA [id number] [place] [address] [place] Bilirubin Ql (U) Negative Normal Negative [facility] Comment on above: Order Comment: Speci men Type: URINE SPECIMENOrdering Facility: [facility] Address: [address] [place] [address] Performed By: #### 2 4356-8 ####[facility] LABCLIA [id number] [place] [address] [facility] [place] Clarity (Unsp spec) Cloudy Abnormal Clear [facility] Comment on above: Order Comment: Speci men Type: URINE SPECIMENOrdering Facility: [facility] Address: [address] [place] [address] Performed By: #### 2 4356-8 ####[facility] LABCLIA [id number] [facility] [place] [address] [place] Color (U) Brown Abnormal Yellow [facility] Comment on above: Order Comment: Speci men Type: URINE SPECIMENOrdering Facility: [facility] Address: [address] [place] [address] Performed By: #### 2 4356-8 ####[facility] LABCLIA [id number] [facility] [place] [address] [facility] Glucose Test strip (U) [Mass/Vol] Negative Normal Negative [facility] Comment on above: Order Comment: Speci men Type: URINE SPECIMENOrdering Facility: [facility] Address: [address] [place] [address] Performed By: #### 2 4356-8 ####[facility] LABCLIA [id number] [facility] [place] [address] [place] Hemoglobin Ql (U) 3+ Abnormal Negative [facility] Comment on above: Order Comment: Speci men Type: URINE SPECIMENOrdering Facility: [facility] Address: [address] [place] [address] Performed By: #### 2 4356-8 ####[facility] LABCLIA [id number] [place] [address] [place] [facility] Ketones Ql (U) Negative Normal Negative [facility] Comment on above: Order Comment: Speci men Type: URINE SPECIMENOrdering Facility: [facility] Address: [address] [place] [address] Performed By: #### 2 4356-8 ####[facility] LABCLIA [id number] [facility] [address] [place] [facility] Leukocyte esterase Test strip Ql (U) Negative Normal Negative [facility] Comment on above: Order Comment: Speci men Type: URINE SPECIMENOrdering Facility: [facility] Address: [address] [place] [address] Performed By: #### 2 4356-8 ####[facility] LABCLIA [id number] [place] [address] [place] Nitrite Ql (U) Negative Normal Negative [facility] Comment on above: Order Comment: Speci men Type: URINE SPECIMENOrdering Facility: [facility] Address: [address] [place] [address] Performed By: #### 2 4356-8 ####[facility] LABCLIA [id number] [place] [address] [place] pH (U) 5.5 [pH] Normal 5.0-8.0 [facility] Comment on above: Order Comment: Speci men Type: URINE SPECIMENOrdering Facility: [facility] Address: [address] [place] [address] Performed By: #### 2 4356-8 ####[facility] LABCLIA [id number] [place] [address] [place] [facility] Protein (U) [Mass/Vol] 2+ Abnormal Negative [facility] Comment on above: Order Comment: Speci men Type: URINE SPECIMENOrdering Facility: [facility] Address: [address] [place] [address] Performed By: #### 2 4356-8 ####[facility] LABCLIA [id number] [place] [address] [facility] RBC LM.HPF (Urine sed) [#/Area] /[HPF] Abnormal 0-3 /HPF [facility] Comment on above: Order Comment: Speci men Type: URINE SPECIMENOrdering Facility: [facility] Address: [address] [place] [address] Performed By: #### 2 4356-8 ####[facility] LABCLIA [id number] [place] [id number] [facility] Specific gravity (U) [Rel density] 1.020 Normal 1.005-1.03 0 [facility] Comment on above: Order Comment: Speci men Type: URINE SPECIMENOrdering Facility: [facility] Address: [address] [place] [address] Performed By: #### 2 4356-8 ####[facility] LABCLIA [id number] [place] [id number] [facility] Urobilinogen Ql (U) 0.2 EU/dL Normal 0.2-1.0 EU/dL [facility] Comment on above: Order Comment: Speci men Type: URINE SPECIMENOrdering Facility: [facility] Address: [address] [place] [address] Performed By: #### 2 4356-8 ####[facility] LABCLIA [id number] [place] [id number] [facility] WBC LM.HPF (Urine sed) [#/Area] 0-5 /HPF Normal 0-5 /HPF [facility] Comment on above: Order Comment: Speci men Type: URINE SPECIMENOrdering Facility: [facility] Address: [address] [place] [address] Performed By: #### 2 4356-8 ####[facility] LABCLIA [id number] [place] [id number] [facility] ED NOTEon 11-17-2024 ED NOTE HNO ID: [id number] Author: MALIKA KLINE RN Service: ? Author Type: Registered Nurse Type: ED Notes Filed: 11/17/2024 07:49 Note Text: Pt given discharge instructions, pt questions answered and pt denies any further questions at time of discharge. Pt ambulates out of dept with a steady gait. 1 [facility] [place] Normal [facility] ED NOTE HNO ID: [id number] Author: MALIKA KLIEN RN Service: ? Author Type: Registered Nurse Type: ED Notes Filed: 11/17/2024 07:30 Note Text: Dr vivar at bedside for exam with nurse and spouse present in room Normal [facility] ED NOTE HNO ID: [id number] Author: MALIKA KLINE RN Service: ? 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 [...] No evid (more content not included)... Normal [facility] CBC W/Diff, Automatedon 05- Absolute Lymph 2.12 X10 3/uL Normal 0.83-4.51 [facility] Comment on above: Performed By: #### L 100.0100, L501.9520 ####[facility] [address] [facility] [place], [address] Absolute Neut 5.9 X10 3/uL Normal 2.0-7.7 [facility] Comment on above: Performed By: #### L 100.0100, L501.9520 ####[facility] [address] [place], [address] Basophils/100 WBC (Bld) 0.7 % Normal 0-1 [facility] Comment on above: Performed By: #### L 100.0100, L5.20 ####[facility] [address] [place], [address] Eosinophils/100 WBC (Bld) 2.3 % Normal 0-5 [facility] Comment on above: Performed By: #### L 100.0100, L501.9520 ####[facility] [address] [place], [address] Erythrocyte distribution width (RBC) [Ratio] 14.2 % Normal 11.6-14.6 [facility] Comment on above: Performed By: #### L 100.0100, L5.9520 ####[facility] [address] [place], [address] Hematocrit (Bld) [Volume fraction] 44.0 % Normal 40-54 [facility] Comment on above: Performed By: #### L 100.0100, L5.20 ####[facility] [address] [place], [address] Hemoglobin (Bld) [Mass/Vol] 14.2 g/dL Normal 13.0-16.5 [facility] Comment on above: Performed By: #### L 100.0100, L5.20 ####[facility] [address] [place], [address] IG% 0.300 Normal 0.0-0.9 [facility] Comment on above: Result Comment: IG% - Immature Granulocytes (promyelocytes, myelocytes and metamyelocytes) > 1% indicates that a LEFT SHIFT is Present. Performed By: #### L 100.0100, L501.9520 ####[facility] [address] [place], [address] Lymphocytes/100 WBC (Bld) 22.6 % Normal 19-41 [facility] Comment on above: Performed By: #### L 100.0100, L5.20 ####[facility] [address] [place], [address] MCH (RBC) [Entitic mass] 30.7 pg Normal 27.0-32.0 [facility] Comment on above: Performed By: #### L 100.0100, L501.9520 ####[facility] [address] [place], [address] MCHC (RBC) [Mass/Vol] 32.3 g/dL Normal 32-36 [facility] Comment on above: Performed By: #### L 100.0100, L501.9520 ####[facility] [address] [place], [address] MCV (RBC) [Entitic vol] 95.2 fL High 80-94 [facility] Comment on above: Performed By: #### L 100.0100, L501.9520 ####[facility] [address] [place], [address] Monocytes/100 WBC (Bld) 11.0 % High 0-10 [facility] Comment on above: Performed By: #### L 100.0100, L501.9520 ####[facility] [address] [place], [address] Neutrophils/100 WBC (Bld) 63.1 % Normal 47-70 [facility] Comment on above: Performed By: #### L 100.0100, L501.9520 ####[facility] [address] [place], [address] Nucleated RBC (Bld) [#/Vol] 0 10*3/uL Normal 0-5 [facility] Comment on above: Performed By: #### L 100.0100, L501.9520 ####[facility] [address] [place], [address] Platelet mean volume (Bld) [Entitic vol] 12.7 fL High 6.2-12.0 [facility] Comment on above: Performed By: #### L 100.0100, L501.9520 ####[facility] [address] [place], [address] Platelets (Bld) [#/Vol] 278 10*3/uL Normal 150-450 [facility] Comment on above: Performed By: #### L 100.0100, L501.9520 ####[facility] [address] [place], [address] RBC (Bld) [#/Vol] 4.62 10*6/uL Normal 4.6-6.2 [facility] Comment on above: Performed By: #### L 100.0100, L501.9520 ####[facility] [address] [place], [address] RDW SD 49.6 fl High 35.1-43.9 [facility] Comment on above: Performed By: #### L 100.0100, L501.20 ####[facility] [address] [place], [address] WBC (Bld) [#/Vol] 9.4 10*3/uL Normal 4.4-11.0 [facility] Comment on above: Performed By: #### L 100.0100, L501.9520 ####[facility] [address] [place], [address] Thyroid Stim Hormone (TSH)on 10-24-2024 TSH 3.290 uIU/mL Normal 0.300-4.20 0 [facility] Comment on above: Performed By: #### L 100.0100, L501.9520 ####[facility] [address] [place], [address] Absolute lymphocyte countOrd ered By: Jenny Live on 10-23-2024 Lymphocytes Auto (Unsp spec) [#/Vol] 2.12 10*3/uL 0.83-4.51 [facility] Absolute neutrophil countOrd ered By: Jenny Live on 10-23-2024 Neutrophils (Bld) [#/Vol] 5.9 10*3/uL 2.0-7.7 [facility] Automated lymphocyte count a s percentage of total leukocytesOrdered By: Jenny Live on 10-23-2024 Lymphocytes/100 WBC Auto (Unsp spec) 22.6 % 19-41 [facility] Basophil percentageOrdered B y: Jenny Live on 10-23-2024 Basophils/100 WBC (Bld) 0.7 % 0-1 [facility] Eosinophil percentageOrdered By: Jenny Live on 10-23-2024 Eosinophils/100 WBC (Bld) 2.3 % 0-5 [facility] Erythrocyte distribution wid th ratioOrdered By: Jenny Live on 10-23-2024 Erythrocyte distribution width (RBC) [Ratio] 14.2 % 11.6-14.6 [facility] Erythrocyte distribution wid th standard deviationOrdered By: Jenny Live on 10-23-2024 Erythrocyte distribution width (RBC) [Ratio] 49.6 fl High 35.1-43.9 [facility] Hematocrit Auto (Bld) [Volum e fraction]Ordered By: Jenny Live on 10-23-2024 Hematocrit (Bld) [Volume fraction] 44.0 % 40-54 [facility] Hemoglobin measurementOrdere d By: Jenny Live on 10-23-2024 Hemoglobin (Bld) [Mass/Vol] 14.2 g/dL 13.0-16.5 [facility] Immature granulocytes/100 WB C Auto (Bld)Ordered By: Jenny Live on 10-23-2024 Immature granulocytes/100 WBC (Bld) 0.300 % 0.0-0.9 [facility] Comment on above: IG% - Immature Granu locytes (promyelocytes, myelocytes and metamyelocytes) > 1% indicates that a LEFT SHIFT is Present. MCV (mean corpuscular volume ) determinationOrdered By: Jenny Live on 10-23-2024 MCV (RBC) [Entitic vol] 95.2 fL High 80-94 [facility] Mean corpuscular hemoglobin (MCH) determinationOrdered By: Jenny Live on 10-23-2024 MCH (RBC) [Entitic mass] 30.7 pg 27.0-32.0 [facility] Mean corpuscular hemoglobin concentration (MCHC) determinationOrdered By: Jenny Live on 10-23-2024 MCHC (RBC) [Mass/Vol] 32.3 g/dL 32-36 [facility] Mean platelet volume determi nationOrdered By: Jenny Live on 10-23-2024 Platelet mean volume (Bld) [Entitic vol] 12.7 fL High 6.2-12.0 [facility] Monocyte percentageOrdered B y: Jenny Live on 10-23-2024 Monocytes/100 WBC (Bld) 11.0 % High 0-10 [facility] Neutrophil percentageOrdered By: Jenny Live on 10-23-2024 Neutrophils/100 WBC (Bld) 63.1 % 47-70 [facility] Nucleated red blood cell per centageOrdered By: Jenny Live on 10-23-2024 Nucleated RBC/100 WBC (Bld) [Ratio] 0 % 0-5 [facility] Platelet countOrdered By: Do ra Live on 10-23-2024 Platelets (Bld) [#/Vol] 278 10*3/uL 150-450 [facility] RBC Auto (Bld) [#/Vol]Ordere d By: Jenny Live on 10-23-2024 RBC (Bld) [#/Vol] 4.62 10*6/uL 4.6-6.2 [facility] TSH DL <= 0.005 mIU/L QnOrde red By: Jenny Live on 10-23-2024 TSH Qn 3.290 uIU/mL 0.300-4.20 0 [facility] White blood cell (WBC) count Ordered By: Jenny Live on 10-23-2024 WBC (Bld) [#/Vol] 9.4 10*3/uL 4.4-11.0 [facility] Absolute lymphocyte countOrd ered By: Jenny Live on 08-22-2024 Lymphocytes Auto (Unsp spec) [#/Vol] 1.80 10*3/uL 0.83-4.51 [facility] Absolute neutrophil countOrd ered By: Jenny Live on 08-22-2024 Neutrophils (Bld) [#/Vol] 8.7 10*3/uL High 2.0-7.7 [facility] Anion gap in Serum or Plasma Ordered By: Jenny Live on 08-22-2024 Anion gap [Moles/Vol] 13 mmol/L 5-15 [facility] Automated lymphocyte count a s percentage of total leukocytesOrdered By: Jenny Live on 08-22-2024 Lymphocytes/100 WBC Auto (Unsp spec) 15.3 % Low 19- [facility] BUN/creatinine ratioOrdered By: Jennyshruthi Live on 08-22-2024 Urea nitrogen/Creatinine [Mass ratio] 10.2 mg/mg 10- [facility] Basophil percentageOrdered B y: Jenny Live on 08-22-2024 Basophils/100 WBC (Bld) 0.5 % 0-1 [facility] Bilirubin, totalOrdered By: Jenny Live on 08-22-2024 Bilirubin [Mass/Vol] 0.28 mg/dL 0.00-1.30 [facility] CBC W/Diff, Automatedon 08-03 Absolute Lymph 1.80 X10 3/uL Normal 0.83-4.51 [facility] Comment on above: Performed By: #### L 501.9985, L500.4050, L100.0100, L501.9520 #### [facility] [address] [place], [address] Absolute Neut 8.7 X10 3/uL High 2.0-7.7 [facility] Comment on above: Performed By: #### L 501.9985, L500.4050, L100.0100, L501.9520 #### [facility] [address] [place], [address] Basophils/100 WBC (Bld) 0.5 % Normal 0-1 [facility] Comment on above: Performed By: #### L 501.9985, L500.4050, L100.0100, L501.9520 #### [facility] [address] [place], [address] Eosinophils/100 WBC (Bld) 1.1 % Normal 0-5 [facility] Comment on above: Performed By: #### L 501.9985, L500.4050, L100.0100, L501.9520 #### [facility] [address] [place], [address] Erythrocyte distribution width (RBC) [Ratio] 14.1 % Normal 11.6-14.6 [facility] Comment on above: Performed By: #### L 501.9985, L500.4050, L100.0100, L501.9520 #### [facility] [address] [place], [address] Hematocrit (Bld) [Volume fraction] 42.4 % Normal 40-54 [facility] Comment on above: Performed By: #### L 501.9985, L500.4050, L100.0100, L501.9520 #### [facility] [address] [place], [address] Hemoglobin (Bld) [Mass/Vol] 13.9 g/dL Normal 13.0-16.5 [facility] Comment on above: Performed By: #### L 501.9985, L500.4050, L100.0100, L501.9520 #### [facility] [address] [place], [address] IG% 0.300 Normal 0.0-0.9 [facility] Comment on above: Result Comment: IG% - Immature Granulocytes (promyelocytes, myelocytes and metamyelocytes) > 1% indicates that a LEFT SHIFT is Present. Performed By: #### L 501.9985, L500.4050, L100.0100, L501.9520 #### [facility] [address] [place], [address] Lymphocytes/100 WBC (Bld) 15.3 % Low 19-41 [facility] Comment on above: Performed By: #### L 501.9985, L500.4050, L100.0100, L501.9520 #### [facility] [address] [place], [address] MCH (RBC) [Entitic mass] 31.0 pg Normal 27.0-32.0 [facility] Comment on above: Performed By: #### L 501.9985, L500.4050, L100.0100, L501.9520 #### [facility] [address] [place], [address] MCHC (RBC) [Mass/Vol] 32.8 g/dL Normal 32-36 [facility] Comment on above: Performed By: #### L 501.9985, L500.4050, L100.0100, L501.9520 #### [facility] [address] [place], [address] MCV (RBC) [Entitic vol] 94.4 fL High 80-94 [facility] Comment on above: Performed By: #### L 501.9985, L500.4050, L100.0100, L501.9520 #### [facility] [address] [place], [address] Monocytes/100 WBC (Bld) 8.7 % Normal 0-10 [facility] Comment on above: Performed By: #### L 501.9985, L500.4050, L100.0100, L501.9520 #### [facility] [address] [place], [address] Neutrophils/100 WBC (Bld) 74.1 % High 47-70 [facility] Comment on above: Performed By: #### L 501.9985, L500.4050, L100.0100, L501.9520 #### [facility] [address] [place], [address] Nucleated RBC (Bld) [#/Vol] 0 10*3/uL Normal 0-5 [facility] Comment on above: Performed By: #### L 501.9985, L500.4050, L100.0100, L501.9520 #### [facility] [address] [place], [address] Platelet mean volume (Bld) [Entitic vol] 12.3 fL High 6.2-12.0 [facility] Comment on above: Performed By: #### L 501.9985, L500.4050, L100.0100, L501.9520 #### [facility] [address] [place], [address] Platelets (Bld) [#/Vol] 260 10*3/uL Normal 150-450 [facility] Comment on above: Performed By: #### L 501.9985, L500.4050, L100.0100, L501.9520 #### [facility] [address] [place], [address] RBC (Bld) [#/Vol] 4.49 10*6/uL Low 4.6-6.2 [facility] Comment on above: Performed By: #### L 501.9985, L500.4050, L100.0100, L501.9520 #### [facility] [address] [place], [address] RDW [place] 48.7 fl High 35.1-43.9 [facility] Comment on above: Performed By: #### L 501.9985, L500.4050, L100.0100, L501.9520 #### [facility] [address] [place], [address] WBC (Bld) [#/Vol] 11.8 10*3/uL High 4.4-11.0 [facility] Comment on above: Performed By: #### L 501.9985, L500.4050, L100.0100, L501.9520 #### [facility] [address] [place], [address] Carbon dioxide, total [Moles /volume] in Central venous bloodOrdered By: Jenny Live on 08-22-2024 CO2 [Moles/Vol] 25.1 mmol/L 21.0-32.0 [facility] Chloride assayOrdered By: Do ra Live on 08-22-2024 Chloride [Moles/Vol] 101 mmol/L 98-108 [facility] Comprehensive Metabolic Prof ilon 08-22-2024 Albumin [Mass/Vol] 4.1 g/dL Normal 3.5-5.0 [facility] Comment on above: Performed By: #### L 501.9985, L500.4050, L100.0100, [id number] #### [facility] [address] [place], [address] Albumin/Globulin [Mass ratio] 1.2 {ratio} Normal 0.9-2.4 [facility] Comment on above: Performed By: #### L [id number], [id number], L100.0100, [id number] #### [facility] [address] [place], [address] ALK PHOS 114 U/L Normal 40-129 [facility] Comment on above: Performed By: #### L [id number], [id number], L100.0100, [id number] #### [facility] [address] [place], [address] ALT [Catalytic activity/Vol] 18 U/L Normal <=46 [facility] Comment on above: Performed By: #### L [id number], [id number], L100.0100, [id number] #### [facility] [address] [place], [address] AST [Catalytic activity/Vol] 24 U/L Normal <=37 [facility] Comment on above: Performed By: #### L [id number], [id number], L100.0100, [id number] #### [facility] [address] [place], [address] Bilirubin [Mass/Vol] 0.28 mg/dL Normal 0.00-1.30 [facility] Comment on above: Performed By: #### L [id number], [id number], L100.0100, [id number] #### [facility] [address] [place], [address] BUN/CRE 10.2 RATIO Normal 10-20 [facility] Comment on above: Performed By: #### L [id number], [id number], L100.0100, [id number] #### [facility] [address] [place], [address] Calcium [Mass/Vol] 9.4 mg/dL Normal 7.6-11.0 [facility] Comment on above: Performed By: #### L [id number], [id number], L100.0100, [id number] #### [facility] [address] [place], [address] Chloride [Moles/Vol] 101 mmol/L Normal 98-108 [facility] Comment on above: Performed By: #### L [id number], [id number], L100.0100, [id number] #### [facility] [address] [place], [address] CO2 [Moles/Vol] 25.1 mmol/L Normal 21.0-32.0 [facility] Comment on above: Performed By: #### L [id number], [id number], L100.0100, [id number] #### [facility] [address] [place], [address] Creatinine [Mass/Vol] 1.49 mg/dL High 0.70-1.20 [facility] Comment on above: Performed By: #### L [id number], [id number], L100.0100, [id number] #### [facility] [address] [place], [address] GAP 13 Normal 5-15 [facility] Comment on above: Performed By: #### L [id number], [id number], L100.0100, [id number] #### [facility] [address] [place], [address] GFR/1.73 sq M.predicted among non-blacks MDRD (S/P/Bld) [Vol rate/Area] 54 mL/min/{1.73_m2} Low >60 [facility] Comment on above: Result Comment: mL/m in/1.73m2 CKD-EPI Creatinine Equation (2020) Performed By: #### L [id number], [id number], L100.0100, [id number] #### [facility] [address] [place], [address] Globulin (S) [Mass/Vol] 3.3 g/dL Normal 2.2-4.2 [facility] Comment on above: Performed By: #### L [id number], [id number], L100.0100, [id number] #### [facility] [address] [place], [address] Glucose [Mass/Vol] 213 mg/dL High 70-99 [facility] Comment on above: Performed By: #### L [id number], [id number], L100.0100, [id number] #### [facility] [address] [place], [address] Potassium [Moles/Vol] 4.4 mmol/L Normal 3.3-5.1 [facility] Comment on above: Performed By: #### L [id number], [id number], L100.0100, [id number] #### [facility] [address] [place], [address] Sodium [Moles/Vol] 138 mmol/L Normal 133-145 [facility] Comment on above: Performed By: #### L [id number], [id number], L100.0100, [id number] #### [facility] [address] [place], [address] T PROT 7.4 g/dL Normal 5.9-8.4 [facility] Comment on above: Performed By: #### L [id number], [id number], L100.0100, [id number] #### [facility] [address] [place], [address] Urea nitrogen [Mass/Vol] 15 mg/dL Normal 4-19 [facility] Comment on above: Performed By: #### L [id number], [id number], L100.0100, [id number] #### [facility] [address] [place], [address] Eosinophil percentageOrdered By: Jenny Live on 08-22-2024 Eosinophils/100 WBC (Bld) 1.1 % 0-5 [facility] Erythrocyte distribution wid th ratioOrdered By: Jenny Live on 08-22-2024 Erythrocyte distribution width (RBC) [Ratio] 14.1 % 11.6-14.6 [facility] Erythrocyte distribution wid th standard deviationOrdered By: Jenny Live on 08-22-2024 Erythrocyte distribution width (RBC) [Entitic vol] 48.7 fL High 35.1-43.9 [facility] Erythrocyte distribution width (RBC) [Ratio] 48.7 fl High 35.1-43.9 [facility] GFR/1.73 sq M.predicted jud g non-blacks MDRD (S/P/Bld) [Vol rate/Area]Ordered By: Jenny Live on 08-22-2024 Estimated GFR (MDRD) Non-Af Amer 54 Low >60 [facility] Comment on above: mL/min/1.73m2 CKD-EP I Creatinine Equation (2020) Glomerular filtration rate ( GFR) estimation/1.73 sq m using serum, plasma, or whole bOrdered By: Jenny Live on 08-22-2024 GFR/1.73 sq M.predicted among non-blacks MDRD (S/P/Bld) [Vol rate/Area] 54 mL/min/{1.73_m2} Low >60 [facility] Comment on above: mL/min/1.73m2 CKD-EP I Creatinine Equation (2020) Hematocrit Auto (Bld) [Volum e fraction]Ordered By: Jenny Live on 08-22-2024 Hematocrit (Bld) [Volume fraction] 42.4 % 40-54 [facility] Hemoglobin A1con 08-22-2024 HbA1c (Bld) [Mass fraction] 8.4 % Normal <=5.6 [facility] Comment on above: Performed By: #### L [id number], [id number], L100.0100, [id number] #### [facility] [address] [facility] [place], [place], [id number] Hemoglobin A1c percentageOrd ered By: Jenny Live on 08-22-2024 HbA1c (Bld) [Mass fraction] 8.4 % >5.7 [facility] Hemoglobin measurementOrdere d By: Jenny Live on 08-22-2024 Hemoglobin (Bld) [Mass/Vol] 13.9 g/dL 13.0-16.5 [facility] Immature granulocytes/100 WB C Auto (Bld)Ordered By: Jenny Live on 08-22-2024 Immature granulocytes/100 WBC (Bld) 0.300 % 0.0-0.9 [facility] Comment on above: IG% - Immature Granu locytes (promyelocytes, myelocytes and metamyelocytes) > 1% indicates that a LEFT SHIFT is Present. Laboratory - Chemistry and C hemistry - challengeOrdered By: Jenny Live on 08-22-2024 AST [Catalytic activity/Vol] 24 U/L <38 [facility] Lymphocytes Auto (Unsp spec) [#/Vol]Ordered By: Jenny Live on 08-22-2024 Lymphocytes (Bld) [#/Vol] 1.80 10*3/uL 0.83-4.51 [facility] Lymphocytes/100 WBC Auto (Un sp spec)Ordered By: Jenny Live on 08-22-2024 Lymphocytes/100 WBC (Bld) 15.3 % Low 19-41 [facility] MCV (mean corpuscular volume ) determinationOrdered By: Jenny Live on 08-22-2024 MCV (RBC) [Entitic vol] 94.4 fL High 80-94 [facility] Mean corpuscular hemoglobin (MCH) determinationOrdered By: Jenny Live on 08-22-2024 MCH (RBC) [Entitic mass] 31.0 pg 27.0-32.0 [facility] Mean corpuscular hemoglobin concentration (MCHC) determinationOrdered By: Jenny Live on 08-22-2024 MCHC (RBC) [Mass/Vol] 32.8 g/dL 32-36 [facility] Mean platelet volume determi nationOrdered By: Jenny Live on 08-22-2024 Platelet mean volume (Bld) [Entitic vol] 12.3 fL High 6.2-12.0 [facility] Monocyte percentageOrdered B y: Jenny Live on 08-22-2024 Monocytes/100 WBC (Bld) 8.7 % 0-10 [facility] Neutrophil percentageOrdered By: Jenny Live on 08-22-2024 Neutrophils/100 WBC (Bld) 74.1 % High 47-70 [facility] Nucleated red blood cell per centageOrdered By: Jenny Live on 08-22-2024 Nucleated RBC/100 WBC (Bld) [Ratio] 0 % 0-5 [facility] Platelet countOrdered By: Do ra Live on 08-22-2024 Platelets (Bld) [#/Vol] 260 10*3/uL 150-450 [facility] Potassium (Unsp spec) [Mass/ Vol]Ordered By: Jenny Live on 08-22-2024 Potassium [Moles/Vol] 4.4 mmol/L 3.3-5.1 [facility] Potassium measurement (mass/ volume)Ordered By: Jenny Live on 08-22-2024 Potassium (Unsp spec) [Mass/Vol] 4.4 mmol/L 3.3-5.1 [facility] RBC Auto (Bld) [#/Vol]Ordere d By: Jenny Live on 08-22-2024 RBC (Bld) [#/Vol] 4.49 10*6/uL Low 4.6-6.2 [facility] Serum creatinine measurement (mass/volume)Ordered By: Jenny Live on 08-22-2024 Creatinine [Mass/Vol] 1.49 mg/dL High 0.70-1.20 [facility] Serum globulin measurementOr dered By: Jenny Live on 08-22-2024 Globulin (S) [Mass/Vol] 3.3 g/dL 2.2-4.2 [facility] Serum glucose measurement (m ass/volume)Ordered By: Jenny Live on 08-22-2024 Glucose [Mass/Vol] 213 mg/dL High 70-99 [facility] Serum or plasma alanine matos otransferase (ALT) measurementOrdered By: Jenny Live on 08-22-2024 ALT [Catalytic activity/Vol] 18 U/L <47 [facility] Serum or plasma albumin daly urement (mass/volume)Ordered By: Jenny Live on 08-22-2024 Albumin [Mass/Vol] 4.1 g/dL 3.5-5.0 [facility] Serum or plasma albumin/glob ulin mass ratioOrdered By: Jenny Live on 08-22-2024 Albumin/Globulin [Mass ratio] 1.2 {ratio} 0.9-2.4 [facility] Serum or plasma alkaline gunjan sphatase measurementOrdered By: Jenny Live on 08-22-2024 ALP [Catalytic activity/Vol] 114 U/L 40-129 [facility] Serum or plasma calcium daly urement (mass/volume)Ordered By: Jenny Live on 08-22-2024 Calcium [Mass/Vol] 9.4 mg/dL 7.6-11.0 [facility] Serum or plasma urea nitroge n measurement (mass/volume)Ordered By: Jenny Live on 08-22-2024 Urea nitrogen [Mass/Vol] 15 mg/dL 4-19 [facility] Sodium levelOrdered By: Jenny Live on 08-22-2024 Sodium [Moles/Vol] 138 mmol/L 133-145 [facility] TSH DL <= 0.005 mIU/L QnOrde red By: Jenny Live on 08-22-2024 Thyroid Stimulating Hormone (TSH) 4.690 uIU/mL High 0.300-4.20 0 [facility] TSH Qn 4.690 uIU/mL High 0.300-4.20 0 [facility] Thyroid Stim Hormone (TSH)on 08-22-2024 TSH 4.690 uIU/mL High 0.300-4.20 0 [facility] Comment on above: Performed By: #### L [id number], [id number], L100.0100, [id number] #### [facility] [address] [place], [place], [id number] Total proteinOrdered By: Nathan Live on 08-22-2024 Protein [Mass/Vol] 7.4 g/dL 5.9-8.4 [facility] White blood cell (WBC) count Ordered By: Jenny Live on 08-22-2024 WBC (Bld) [#/Vol] 11.8 10*3/uL High 4.4-11.0 [facility] Absolute lymphocyte countOrd ered By: Jenny Live on 07-27-2023 Lymphocytes Auto (Unsp spec) [#/Vol] 2.75 10*3/uL 0.83-4.51 [facility] Automated lymphocyte count a s percentage of total leukocytesOrdered By: Jenny Live on 07-27-2023 Lymphocytes/100 WBC Auto (Unsp spec) 29.5 % 19-41 [facility] Basophil percentageOrdered B y: Jenny Live on 07-27-2023 Basophils/100 WBC (Bld) 1.0 % 0-1 [facility] Bilirubin [Mass/Vol] 0.20 mg/dL 0.20-1.00 [facility] Comment on above: For patients on eltr ombopag therapy, use of Dimension [place] TBIL is not recommended. Chloride [Moles/Vol] 105 mmol/L 98-107 [facility] Cholesterol [Mass/Vol] 192 mg/dL <200 [facility] Comment on above: <200 mg/dL Desirable 200-240 mg/dL Borderline >240 mg/dL High Risk Eosinophils/100 WBC (Bld) 2.6 % 0-5 [facility] Glucose [Mass/Vol] 189 mg/dL 74-106 [facility] Comment on above: Fasting Glucose resu lt greater than or equal to 126 mg/dL suggests DIABETES MELLITUS per A.D.A. criteria. Hemoglobin (Bld) [Mass/Vol] 14.1 g/dL 13.0-16.5 [facility] Monocytes/100 WBC (Bld) 10.4 % 0-10 [facility] Neutrophils (Bld) [#/Vol] 5.3 10*3/uL 2.0-7.7 [facility] Neutrophils/100 WBC (Bld) 56.3 % 47-70 [facility] Potassium [Moles/Vol] 3.9 mmol/L 3.5-5.1 [facility] Protein [Mass/Vol] 6.9 g/dL 6.4-8.2 [facility] Sodium [Moles/Vol] 140 mmol/L 136-145 [facility] Triglyceride [Mass/Vol] 275 mg/dL <199 [facility] Comment on above: The drugs N-Acetylcy steine and Metamizole may falsely depress this assay.Serum Triglycerides Reference Interval Normal <150 mg/dL Borderline high 150 - 199 mg/dL High 200 - 499 mg/dL Very High > or = 500 mg/dL WBC (Bld) [#/Vol] 9.3 10*3/uL 4.4-11.0 [facility] Determination of erythrocyte mean corpuscular volume (MCV)Ordered By: Jenny Live on 07-27-2023 MCV (RBC) [Entitic vol] 95.4 fL 80-94 [facility] Erythrocyte distribution wid th ratioOrdered By: Jenny Live on 07-27-2023 Erythrocyte distribution width (RBC) [Ratio] 13.2 % 11.6-14.6 [facility] Erythrocyte distribution wid th standard deviationOrdered By: Jenny Live on 07-27-2023 Erythrocyte distribution width (RBC) [Entitic vol] 47.0 fL 35.1-43.9 [facility] Hematocrit Auto (Bld) [Volum e fraction]Ordered By: Jenny Live on 07-27-2023 Hematocrit (Bld) [Volume fraction] 43.8 % 40-54 [facility] Immature granulocytes/100 WB C Auto (Bld)Ordered By: Jennyshruthi Live on 07-27-2023 Immature granulocytes/100 WBC (Bld) 0.200 % 0.0-0.9 [facility] Comment on above: IG% - Immature Granu locytes (promyelocytes, myelocytes and metamyelocytes) > 1% indicates that a LEFT SHIFT is Present. Laboratory - Chemistry and C hemistry - challengeOrdered By: Jenny Live on 07-27-2023 Albumin/Globulin [Mass ratio] 0.9 {ratio} 0.9-2.4 [facility] ALP [Catalytic activity/Vol] 93 U/L 45-117 [facility] ALT [Catalytic activity/Vol] 25 U/L 16-61 [facility] Cholesterol in HDL [Mass/Vol] 38 mg/dL >40 [facility] Comment on above: The drugs N-Acetylcy steine and Metamizole may falsely depress this assay. Reference Range HDL <40 mg/dL Low HDL Cholesterol HDL >or= 60 mg/dL High HDL Cholesterol Cholesterol in LDL [Mass/Vol] 99 mg/dL 0-130 [facility] CO2 [Moles/Vol] 31.0 mmol/L 21.0-32.0 [facility] Globulin (S) [Mass/Vol] 3.6 g/dL 2.2-4.2 [facility] Urea nitrogen/Creatinine [Mass ratio] 11.9 mg/mg 10-20 [facility] - Hematology and Cell countsOrdered By: Jenny Live on 07-27-2023 MCH (RBC) [Entitic mass] 30.7 pg 27.0-32.0 [facility] MCHC (RBC) [Mass/Vol] 32.2 g/dL 32-36 [facility] Nucleated RBC/100 WBC (Bld) [Ratio] 0 % 0-5 [facility] Platelet mean volume (Bld) [Entitic vol] 12.5 fL 6.2-12.0 [facility] Platelets (Bld) [#/Vol] 266 10*3/uL 150-450 [facility] No Panel InformationOrdered By: Jenny Live on 07-27-2023 Estimated GFR (MDRD) Amer 66 mL/min >60 [facility] Comment on above: GFR Calc Estimated GFR (MDRD) Non-Af Amer 54 mL/min >60 [facility] Comment on above: Non- GFR Calc Prostate Specific Antigen Screen 0.35 ng/mL 0.00-4.00 [facility] Comment on above: This test was perfor med using the TPSA assay method for [employer] chemistry system. Values obtained with differentassay methods cannot be used interchangably.When changing PSA assays in the course of monitoring apatient, additional sequential testing should be carriedout to confirm baseline values. VLDL Cholesterol 55 mg/dL 5-40 [facility] RBC Auto (Bld) [#/Vol]Ordere d By: Jenny Live on 07-27-2023 RBC (Bld) [#/Vol] 4.59 10*6/uL 4.6-6.2 [facility] Serum or plasma calcium daly urement (mass/volume)Ordered By: Jenny Live on 07-27-2023 Calcium [Mass/Vol] 8.8 mg/dL 8.5-10.1 [facility] Serum or plasma creatinine m easurement (mass/volume)Ordered By: Jenny Live on 07-27-2023 Creatinine [Mass/Vol] 1.43 mg/dL 0.70-1.30 [facility] Comment on above: The validity of the calculated GFR & GFRAA in patients over 70 years has not been determined. Clinical correlation is essential. Serum or plasma urea nitroge n measurement (mass/volume)Ordered By: Jenny Live on 07-27-2023 Urea nitrogen [Mass/Vol] 17 mg/dL 7-18 [facility] Thin prep Papanicolaou smear with manual screeningOrdered By: Jenny Live on 07-27-2023 Thin prep Papanicolaou smear with manual screening 3.3 g/dL 3.2-5.0 [facility] Thin prep Papanicolaou smear with manual screening 18 U/L 15-37 [facility] Thin prep Papanicolaou smear with manual screening 4 5-15 [facility] Whole blood hemoglobin A1c/t otal hemoglobin ratio (mass fraction)Ordered By: Jenny Live on 07-27-2023 HbA1c (Bld) [Mass fraction] 7.8 % 3.8-5.6 [facility] Comment on above: Normal < 5.7 % Predi abetic 5.7 - 6.4 % Diabetic >or= 6.5 % Please note range changes. 36on 07-18-2023 36 S: Patient spoke [facility] h [facility] nurse regarding dizziness. B: Onset of symptoms [...] hours of rest and fluids Protocols used: [id number] Normal [facility] Absolute lymphocyte countOrd ered By: Jenny Live on 09-06-2022 Lymphocytes Auto (Unsp spec) [#/Vol] 2.24 10*3/uL 0.83-4.51 [facility] Basophil percentageOrdered B y: Jenny Live on 09-06-2022 Basophils/100 WBC (Bld) 0.6 % 0-1 [facility] Bilirubin [Mass/Vol] 0.30 mg/dL 0.20-1.00 [facility] Comment on above: For patients on eltr ombopag therapy, use of Dimension [place] TBIL is not recommended. Chloride [Moles/Vol] 102 mmol/L 98-107 [facility] Eosinophils/100 WBC (Bld) 1.7 % 0-5 [facility] Glucose [Mass/Vol] 182 mg/dL 74-106 [facility] Comment on above: Fasting Glucose resu lt greater than or equal to 126 mg/dL suggests DIABETES MELLITUS per A.D.A. criteria. Neutrophils (Bld) [#/Vol] 6.5 10*3/uL 2.0-7.7 [facility] Neutrophils/100 WBC (Bld) 65.3 % 47-70 [facility] Potassium [Moles/Vol] 3.8 mmol/L 3.5-5.1 [facility] Protein [Mass/Vol] 7.1 g/dL 6.4-8.2 [facility] Sodium [Moles/Vol] 136 mmol/L 136-145 [facility] WBC (Bld) [#/Vol] 10.0 10*3/uL 4.4-11.0 [facility] Blood erythrocytes count (nu mber/volume)Ordered By: Jenny Live on 09-06-2022 RBC (Bld) [#/Vol] 4.51 10*6/uL 4.6-6.2 [facility] Blood hemoglobin measurement (mass/volume)Ordered By: Jenny Live on 09-06-2022 Hemoglobin (Bld) [Mass/Vol] 14.3 g/dL 13.0-16.5 [facility] Blood lymphocytes/100 leukoc ytesOrdered By: Jenny Live on 09-06-2022 Lymphocytes/100 WBC (Bld) 22.5 % 19-41 [facility] Blood monocytes/100 leukocyt esOrdered By: Jenny iLve on 09-06-2022 Monocytes/100 WBC (Bld) 9.7 % 0-10 [facility] Blood platelet mean volumeOr dered By: Jenny Live on 09-06-2022 Platelet mean volume (Bld) [Entitic vol] 12.6 fL 6.2-12.0 [facility] Determination of erythrocyte mean corpuscular volume (MCV)Ordered By: Jenny Live on 09-06-2022 MCV (RBC) [Entitic vol] 94.2 fL 80-94 [facility] Hematocrit Auto (Bld) [Volum e fraction]Ordered By: Jenny Live on 09-06-2022 Hematocrit (Bld) [Volume fraction] 42.5 % 40-54 [facility] - Chemistry and C hemistry - challengeOrdered By: Jenny Live on 09-06-2022 ALP [Catalytic activity/Vol] 97 U/L 45-117 [facility] ALT [Catalytic activity/Vol] 27 U/L 16-61 [facility] CO2 [Moles/Vol] 28.0 mmol/L 21.0-32.0 [facility] Globulin (S) [Mass/Vol] 3.7 g/dL 2.2-4.2 [facility] Urea nitrogen/Creatinine [Mass ratio] 12.1 mg/mg 10-20 [facility] - Hematology and Cell countsOrdered By: Jenny Live on 09-06-2022 Erythrocyte distribution width (RBC) [Entitic vol] 45.9 fL 35.1-43.9 [facility] Erythrocyte distribution width (RBC) [Ratio] 13.2 % 11.6-14.6 [facility] Immature granulocytes/100 WBC (Bld) 0.200 % 0.0-0.9 [facility] Comment on above: IG% - Immature Granu locytes (promyelocytes, myelocytes and metamyelocytes) > 1% indicates that a LEFT SHIFT is Present. MCH (RBC) [Entitic mass] 31.7 pg 27.0-32.0 [facility] Nucleated RBC/100 WBC (Bld) [Ratio] 0 % 0-5 [facility] MCHC Auto (RBC) [Mass/Vol]Or dered By: Jenny Live on 09-06-2022 MCHC (RBC) [Mass/Vol] 33.6 g/dL 32-36 [facility] No Panel InformationOrdered By: Jenny Live on 09-06-2022 D-Dimer Quantitative (PE/DVT) < 0.27 FEU/ug/m 0.27-0.49 [facility] Comment on above: NORMAL D-Dimer level (<0.50) indicates no DVT or PE. Estimated GFR (MDRD) Amer 67 mL/min >60 [facility] Comment on above: GFR Calc Estimated GFR (MDRD) Non-Af Amer 56 mL/min >60 [facility] Comment on above: Non- GFR Calc Platelets bldOrdered By: Nathan Live on 09-06-2022 Platelets (Bld) [#/Vol] 280 10*3/uL 150-450 [facility] Serum or plasma albumin daly urement (mass/volume)Ordered By: Jenny Live on 09-06-2022 Albumin [Mass/Vol] 3.4 g/dL 3.2-5.0 [facility] Serum or plasma albumin/glob ulin mass ratioOrdered By: Jenny Live on 09-06-2022 Albumin/Globulin [Mass ratio] 0.9 {ratio} 0.9-2.4 [facility] Serum or plasma calcium daly urement (mass/volume)Ordered By: Jenny Live on 09-06-2022 Calcium [Mass/Vol] 9.0 mg/dL 8.5-10.1 [facility] Serum or plasma creatinine m easurement (mass/volume)Ordered By: Jenny Live on 09-06-2022 Creatinine [Mass/Vol] 1.40 mg/dL 0.70-1.30 [facility] Comment on above: The validity of the calculated GFR & GFRAA in patients over 70 years has not been determined. Clinical correlation is essential. Serum or plasma urea nitroge n measurement (mass/volume)Ordered By: Jenny Live on 09-06-2022 Urea nitrogen [Mass/Vol] 17 mg/dL 7-18 [facility] Thin prep Papanicolaou smear with manual screeningOrdered By: Jenny Live on 09-06-2022 Thin prep Papanicolaou smear with manual screening 22 U/L 15-37 [facility] Thin prep Papanicolaou smear with manual screening 6 5-15 [facility] - Hematology and Cell countson 08-18-2022 HbA1c (Bld) [Mass fraction] 9.3 % 4.2-6.3 [facility] - Hematology and Cell countson 05-25-2022 HbA1c (Bld) [Mass fraction] 9.1 % 4.2-6.3 [facility] Absolute lymphocyte counton 12-23-2021 Lymphocytes Auto (Unsp spec) [#/Vol] 2.85 10*3/uL 0.83-4.51 [facility] Work Phone: Basophil percentageon 2021 Basophils/100 WBC (Bld) 0.7 % 0-1 [facility] Work Phone: Bilirubin [Mass/Vol] 0.40 mg/dL 0.20-1.00 [facility] Work Phone: Comment on above: For patients on eltr ombopag therapy, use of Dimension [place] TBIL is not recommended. Chloride [Moles/Vol] 103 mmol/L 98-107 [facility] Work Phone: Cholesterol [Mass/Vol] 211 mg/dL <200 [facility] Work Phone: [phone] Comment on above: <200 mg/dL Desirable 200-240 mg/dL Borderline >240 mg/dL High Risk Eosinophils/100 WBC (Bld) 2.4 % 0-5 [facility] Work Phone: [phone] Glucose [Mass/Vol] 240 mg/dL 74-106 [facility] Work Phone: Comment on above: Glucose result great er than or equal to 200 mg/dLsuggests DIABETES MELLITUS per A.D.A. criteria. Neutrophils (Bld) [#/Vol] 6.6 10*3/uL 2.0-7.7 [facility] Work Phone: Neutrophils/100 WBC (Bld) 60.8 % 47-70 [facility] Work Phone: Potassium [Moles/Vol] 3.9 mmol/L 3.5-5.1 [facility] Work Phone: Protein [Mass/Vol] 7.0 g/dL 6.4-8.2 [facility] Work Phone: Sodium [Moles/Vol] 137 mmol/L 136-145 [facility] Work Phone: Triglyceride [Mass/Vol] 575 mg/dL <199 [facility] Work Phone: [phone] Comment on above: The drugs N-Acetylcy steine and Metamizole may falsely depress this assay. TRIGLYCERIDE IS GREATER THAN 400 mg/dL. LDL RESULT IS INVALID AND WILL NOT BE REPORTED.Serum Triglycerides Reference Interval Normal <150 mg/dL Borderline high 150 - 199 mg/dL High 200 - 499 mg/dL Very High > or = 500 mg/dL WBC (Bld) [#/Vol] 10.8 10*3/uL 4.4-11.0 [facility] Work Phone: Blood erythrocytes count (nu mber/volume)on 12-23-2021 RBC (Bld) [#/Vol] 4.87 10*6/uL 4.6-6.2 [facility] Work Phone: Blood hemoglobin measurement (mass/volume)on 12-23-2021 Hemoglobin (Bld) [Mass/Vol] 15.6 g/dL 13.0-16.5 [facility] Work Phone: [phone] Blood lymphocytes/100 leukoc yteson 12-23-2021 Lymphocytes/100 WBC (Bld) 26.4 % 19-41 [facility] Work Phone: [phone] Blood monocytes/100 leukocyt eson 12-23-2021 Monocytes/100 WBC (Bld) 9.5 % 0-10 [facility] Work Phone: Blood platelet mean volumeon 12-23-2021 Platelet mean volume (Bld) [Entitic vol] 12.3 fL 6.2-12.0 [facility] Work Phone: [phone] Determination of erythrocyte mean corpuscular volume (MCV)on 12-23-2021 MCV (RBC) [Entitic vol] 94.5 fL 80-94 [facility] Work Phone: [phone] Hematocrit Auto (Bld) [Volum e fraction]on 12-23-2021 Hematocrit (Bld) [Volume fraction] 46.0 % 40-54 [facility] Work Phone: [phone] Laboratory - Chemistry and C hemistry - challengeon 12-23-2021 ALP [Catalytic activity/Vol] 124 U/L 45-117 [facility] Work Phone: ALT [Catalytic activity/Vol] 28 U/L 16-61 [facility] Work Phone: [phone] CO2 [Moles/Vol] 29.0 mmol/L 21.0-32.0 [facility] Work Phone: [phone] Globulin (S) [Mass/Vol] 3.5 g/dL 2.2-4.2 [facility] Work Phone: [phone] Urea nitrogen/Creatinine [Mass ratio] 10.6 mg/mg 10-20 [facility] Work Phone: [phone] Laboratory - Hematology and Cell countson 12-23-2021 Erythrocyte distribution width (RBC) [Entitic vol] 45.1 fL 35.1-43.9 [facility] Work Phone: [phone] Erythrocyte distribution width (RBC) [Ratio] 13.0 % 11.6-14.6 [facility] Work Phone: [phone] Immature granulocytes/100 WBC (Bld) 0.200 % 0.0-0.9 [facility] Work Phone: [phone] Comment on above: IG% - Immature Granu locytes (promyelocytes, myelocytes and metamyelocytes) > 1% indicates that a LEFT SHIFT is Present. MCH (RBC) [Entitic mass] 32.0 pg 27.0-32.0 [facility] Work Phone: [phone] Nucleated RBC/100 WBC (Bld) [Ratio] 0 % 0-5 [facility] Work Phone: [phone] MCHC Auto (RBC) [Mass/Vol]on 12-23-2021 MCHC (RBC) [Mass/Vol] 33.9 g/dL 32-36 [facility] Work Phone: [phone] No Panel Informationon 12-23 Estimated GFR (MDRD) Amer 67 mL/min >60 [facility] Work Phone: [phone] Comment on above: GFR Calc Estimated GFR (MDRD) Non-Af Amer 55 mL/min >60 [facility] Work Phone: [phone] Comment on above: Non- GFR Calc Prostate Specific Antigen Screen 0.27 ng/mL 0.00-4.00 [facility] Work Phone: Comment on above: This test was perfor med using the TPSA assay method for [employer] chemistry system. Values obtained with differentassay methods cannot be used interchangably.When changing PSA assays in the course of monitoring apatient, additional sequential testing should be carriedout to confirm baseline values. Platelets bldon 12-23-2021 Platelets (Bld) [#/Vol] 261 10*3/uL 150-450 [facility] Work Phone: Serum or plasma albumin daly urement (mass/volume)on 12-23-2021 Albumin [Mass/Vol] 3.5 g/dL 3.2-5.0 [facility] Work Phone: Serum or plasma albumin/glob ulin mass ratioon 12-23-2021 Albumin/Globulin [Mass ratio] 1.0 {ratio} 0.9-2.4 [facility] Work Phone: Serum or plasma calcium daly urement (mass/volume)on 12-23-2021 Calcium [Mass/Vol] 9.2 mg/dL 8.5-10.1 [facility] Work Phone: Serum or plasma cholesterol in HDL measurement (mass/volume)on 12-23-2021 Cholesterol in HDL [Mass/Vol] 31 mg/dL >40 [facility] Work Phone: Comment on above: The drugs N-Acetylcy steine and Metamizole may falsely depress this assay. Reference Range HDL <40 mg/dL Low HDL Cholesterol HDL >or= 60 mg/dL High HDL Cholesterol Serum or plasma cholesterol in VLDL measurement (mass/volume)on 12-23-2021 Cholesterol in VLDL [Mass/Vol] TNP [facility] Work Phone: Comment on above: Test not performed Serum or plasma creatinine m easurement (mass/volume)on 12-23-2021 Creatinine [Mass/Vol] 1.41 mg/dL 0.70-1.30 [facility] Work Phone: Comment on above: The validity of the calculated GFR & GFRAA in patients over 70 years has not been determined. Clinical correlation is essential. Serum or plasma low density lipoprotein (LDL) cholesterol measurement (mass/volume)on 12-23-2021 Cholesterol in LDL [Mass/Vol] TNP [facility] Work Phone: Comment on above: Test not performed Serum or plasma urea nitroge n measurement (mass/volume)on 12-23-2021 Urea nitrogen [Mass/Vol] 15 mg/dL 7-18 [facility] Work Phone: [phone] Thin prep Papanicolaou smear with manual screeningon 12-23-2021 Thin prep Papanicolaou smear with manual screening 20 U/L 15-37 [facility] Work Phone: [phone] Thin prep Papanicolaou smear with manual screening 5 5-15 [facility] Work Phone: [phone] Whole blood hemoglobin A1c/t otal hemoglobin ratio (mass fraction)on 12-23-2021 HbA1c (Bld) [Mass fraction] 9.4 % 3.8-5.6 [facility] Work Phone: Comment on above: Normal < 5.7 % Predi abetic 5.7 - 6.4 % Diabetic >or= 6.5 % Please note range changes. Absolute lymphocyte counton 11-07-2021 Lymphocytes Auto (Unsp spec) [#/Vol] 2.07 10*3/uL 0.83-4.51 [facility] Work Phone: Basophil percentageon 2021 Basophils/100 WBC (Bld) 0.7 % 0-1 [facility] Work Phone: [phone] Eosinophils/100 WBC (Bld) 1.8 % 0-5 [facility] Work Phone: [phone] Neutrophils (Bld) [#/Vol] 6.0 10*3/uL 2.0-7.7 [facility] Work Phone: Neutrophils/100 WBC (Bld) 65.8 % 47-70 [facility] Work Phone: [phone] Testosterone [Mass/Vol] 251.20 ng/dL [facility] Work Phone: Comment on above: CENTRAL 90% REFERENC E RANGES MALE AGE <50 197.44 - 669.58 ng/dL MALE AGE > or = 50 187.72 - 684.19 ng/dL FEMALE AGE <50 8.38 - 35.01 ng/dL FEMALE AGE > or = 50 <7.00 - 35.92 ng/dL Effective as of 12/28/20 WBC (Bld) [#/Vol] 9.1 10*3/uL 4.4-11.0 [facility] Work Phone: Blood erythrocytes count (nu mber/volume)on 11-07-2021 RBC (Bld) [#/Vol] 5.13 10*6/uL 4.6-6.2 [facility] Work Phone: Blood hemoglobin measurement (mass/volume)on 11-07-2021 Hemoglobin (Bld) [Mass/Vol] 16.1 g/dL 13.0-16.5 [facility] Work Phone: Blood lymphocytes/100 leukoc yteson 11-07-2021 Lymphocytes/100 WBC (Bld) 22.8 % 19-41 [facility] Work Phone: Blood monocytes/100 leukocyt eson 11-07-2021 Monocytes/100 WBC (Bld) 8.6 % 0-10 [facility] Work Phone: [phone] Blood platelet mean volumeon 11-07-2021 Platelet mean volume (Bld) [Entitic vol] 12.3 fL 6.2-12.0 [facility] Work Phone: [phone] Determination of erythrocyte mean corpuscular volume (MCV)on 11-07-2021 MCV (RBC) [Entitic vol] 95.3 fL 80-94 [facility] Work Phone: [phone] Hematocrit Auto (Bld) [Volum e fraction]on 11-07-2021 Hematocrit (Bld) [Volume fraction] 48.9 % 40-54 [facility] Work Phone: Laboratory - Chemistry and C hemistry - challengeon 11-07-2021 Cobalamin (Vitamin B12) [Mass/Vol] 1580 pg/mL 211-911 [facility] Work Phone: [phone] Laboratory - Hematology and Cell countson 11-07-2021 HbA1c (Bld) [Mass fraction] 9.0 % 4.2-6.3 [facility] Work Phone: [phone] Erythrocyte distribution width (RBC) [Entitic vol] 45.7 fL 35.1-43.9 [facility] Work Phone: [phone] Erythrocyte distribution width (RBC) [Ratio] 13.0 % 11.6-14.6 [facility] Work Phone: [phone] Immature granulocytes/100 WBC (Bld) 0.300 % 0.0-0.9 [facility] Work Phone: [phone] Comment on above: IG% - Immature Granu locytes (promyelocytes, myelocytes and metamyelocytes) > 1% indicates that a LEFT SHIFT is Present. MCH (RBC) [Entitic mass] 31.4 pg 27.0-32.0 [facility] Work Phone: [phone] Nucleated RBC/100 WBC (Bld) [Ratio] 0 % 0-5 [facility] Work Phone: [phone] MCHC Auto (RBC) [Mass/Vol]on 11-07-2021 MCHC (RBC) [Mass/Vol] 32.9 g/dL 32-36 [facility] Work Phone: [phone] No Panel Informationon 11-07 Prostate Specific Antigen Total 0.46 ng/mL 0.0-4.0 [facility] Work Phone: [phone] Comment on above: This test was perfor med using the TPSA assay method for [facility]. Values obtained with differentassay methods cannot be used interchangably.When changing PSA assays in the course of monitoring apatient, additional sequential testing should be carriedout to confirm baseline values. Platelets bldon 11-07-2021 Platelets (Bld) [#/Vol] 256 10*3/uL 150-450 [facility] Work Phone: [phone] CBC W Auto Differential pane l (Bld)on 10-03-2021 Basophils (Bld) [#/Vol] 0.05 10*3/uL Normal <0.11 [facility] Comment on above: Order Comment: Speci men Type: BLOOD SPECIMENOrdering Facility: [facility] Address: [address] [place] [address] Performed By: #### 5 7021-8 ####[facility] LABORATORYCLIA [id number] [place] [address] [place] Basophils/100 WBC (Bld) 0.4 % Normal [facility] Comment on above: Order Comment: Speci men Type: BLOOD SPECIMENOrdering Facility: [facility] Address: [address] [place] [address] Performed By: #### 5 7021-8 ####[facility] LABORATORYCLIA [id number] [place] [address] [place] Differential cell count method Nom (Bld) Auto Normal [facility] Comment on above: Order Comment: Speci men Type: BLOOD SPECIMENOrdering Facility: [facility] Address: [address] [place] [address] Performed By: #### 5 7021-8 ####[facility]ORATORYCLIA [id number] [place] [address] [place] Eosinophils (Bld) [#/Vol] 0.18 10*3/uL Normal <0.46 [facility] Comment on above: Order Comment: Speci men Type: BLOOD SPECIMENOrdering Facility: [facility] Address: [address] [place] [address] Performed By: #### 5 7021-8 ####[facility]ORATORYCLIA [id number] [place] [address] [place] Eosinophils/100 WBC (Bld) 1.5 % Normal [facility] Comment on above: Order Comment: Speci men Type: BLOOD SPECIMENOrdering Facility: [facility] Address: [address] [place] [address] Performed By: #### 5 7021-8 ####[facility]ORATORYCLIA [id number] [address] Erythrocyte distribution width (RBC) [Ratio] 13.7 % Normal 11.5-15.0 [facility] Comment on above: Order Comment: Speci men Type: BLOOD SPECIMENOrdering Facility: [facility] Address: [address] [place] [address] Performed By: #### 5 7021-8 ####[facility] LABORATORYIA [id number] [address] Hematocrit (Bld) [Volume fraction] 49.3 % Normal 39.0-51.0 [facility] Comment on above: Order Comment: Speci men Type: BLOOD SPECIMENOrdering Facility: [facility] Address: [address] [place] [address] Performed By: #### 5 7021-8 ####JONMAXIMILIANO [facility] CENTERIA [id number] [address] [place] Hemoglobin (Bld) [Mass/Vol] 16.5 g/dL Normal 13.0-17.0 [facility] Comment on above: Order Comment: Speci men Type: BLOOD SPECIMENOrdering Facility: [facility] Address: [address] [place] [address] Performed By: #### 5 7021-8 ####[facility]JAY[facility] LABORATORYIA [id number] [place] [address] [place] Lymphocytes (Bld) [#/Vol] 3.14 10*3/uL Normal 1.00-4.00 [facility] Comment on above: Order Comment: Speci men Type: BLOOD SPECIMENOrdering Facility: [facility] Address: [address] [place] [address] Performed By: #### 5 7021-8 ####[facility] LABORATORYIA [id number] [address] [place] Lymphocytes/100 WBC (Bld) 26.7 % Normal [facility] Comment on above: Order Comment: Speci men Type: BLOOD SPECIMENOrdering Facility: [facility] Address: [address] [place] [address] Performed By: #### 5 7021-8 ####[facility]ORATORYCLIA [id number] [address] MCH (RBC) [Entitic mass] 31.3 pg Normal 26.0-34.0 [facility] Comment on above: Order Comment: Speci men Type: BLOOD SPECIMENOrdering Facility: [facility] Address: [address] [place] [address] Performed By: #### 5 7021-8 ####NISHANTJAYE [facility] CENTERIA [id number] [address] MCHC (RBC) [Mass/Vol] 33.5 g/dL Normal 30.5-36.[address] [facility] Comment on above: Order Comment: Speci men Type: BLOOD SPECIMENOrdering Facility: [facility] Address: [address] [place] [address] Performed By: #### 5 7021-8 ####[facility]MAXIMILIANO [facility] LABORATORYIA [id number] [address] MCV (RBC) [Entitic vol] 93.5 fL Normal 80.0-100.0 [facility] Comment on above: Order Comment: Speci men Type: BLOOD SPECIMENOrdering Facility: [facility] Address: [address] [place] [address] Performed By: #### 5 7021-8 ####[facility]MAXIMILIANO [facility]ORATORYIA [id number] [address] Monocytes (Bld) [#/Vol] 1.39 10*3/uL High <0.87 [facility] Comment on above: Order Comment: Speci men Type: BLOOD SPECIMENOrdering Facility: [facility] Address: [address] [place] [address] Performed By: #### 5 7021-8 ####[facility] LABORATORYIA [id number] [place] [address] [place] [facility] Monocytes/100 WBC (Bld) 11.8 % Normal [facility] Comment on above: Order Comment: Speci men Type: BLOOD SPECIMENOrdering Facility: [facility] Address: [address] [place] [address] Performed By: #### 5 7021-8 ####JONMAXIMILIANO [facility] CENTERIA [id number] [place] [address] [place] Neutrophils (Bld) [#/Vol] 6.99 10*3/uL Normal 1.45-7.50 [facility] Comment on above: Order Comment: Speci men Type: BLOOD SPECIMENOrdering Facility: [facility] Address: [address] [place] [address] Performed By: #### 5 7021-8 ####[facility]ONMAXIMILIANO [facility] CENTERIA [id number] [place] [address] [place] [facility] Neutrophils/100 WBC (Bld) 59.6 % Normal [facility] Comment on above: Order Comment: Speci men Type: BLOOD SPECIMENOrdering Facility: [facility] Address: [address] [place] [address] Performed By: #### 5 7021-8 ####[facility]ONMAXIMILIANO [facility]ENTERIA [id number] [place] [address] [place] Platelet mean volume (Bld) [Entitic vol] 12.3 fL Normal 9.0-12.7 [facility] Comment on above: Order Comment: Speci men Type: BLOOD SPECIMENOrdering Facility: [facility] Address: [address] [place] [address] Performed By: #### 5 7021-8 ####[facility]IAN[facility]ORATORYIA [id number] [place] [address] [place] Platelets (Bld) [#/Vol] 285 10*3/uL Normal 150-400 [facility] Comment on above: Order Comment: Speci men Type: BLOOD SPECIMENOrdering Facility: [facility] Address: [address] [place] [address] Performed By: #### 5 7021-8 ####[facility]ORATORYCLIA [id number] [address] RBC (Bld) [#/Vol] 5.27 10*6/uL Normal 4.20-6.00 [facility] Comment on above: Order Comment: Speci men Type: BLOOD SPECIMENOrdering Facility: [facility] Address: [address] [place] [address] Performed By: #### 5 7021-8 ####[facility]MAXIMILIAN[facility]ORATORYCLIA [id number] [address] OF [facility] WBC (Bld) [#/Vol] 11.75 10*3/uL High 3.70-11.00 [facility] Comment on above: Order Comment: Speci men Type: BLOOD SPECIMENOrdering Facility: [facility] Address: [address] [place] [address] Performed By: #### 5 7021-8 ####[facility]ORATORYCLIA [id number] [address] OF [facility] CNOVon 10-03-2021 CNOV Office Visit (WALK[facility] ) JAME WALLACE ([id number]) 1965 M Date Time Provider Department 10/03/21 3:15 PM SCOTT RODRIGUEZ During your visit today, we recorded the following information about you: Temperature Pulse Respiration Blood pressure 98.6 degrees 83/minute 18/minute 134/92 Weight 152.6 kg Scott Rodriguez APRN.[employer]RACHITA 10/03/2021 4:08 PM Signed Patient is a [...] not helped. 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 Patient also [...] with this plan. Report was called to [facility] emergency room patient was transported out of the office today to the emergency room in stable condition in no distress. Scott Rodriguez APRN.[employer] This note was partially generated using [employer] voice recognition system. Referring Provider: SELF [200] [...] density lipoprot*01/20/20 (more content not included)... Normal [facility] CT BRAIN WO IVCONon 10-04-[address] BRAIN WO IVCON * * *Final Report* * * DATE OF EXAM: Oct 03 2021 5:49PM [facility] 0504 - CT BRAIN WO [...] reduction techniques were required COMPARISON: None. 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 Post-operative change: [...] CT evidence of an acute intracranial process. Director Of Marketing Communications: PSCB Transcribe Date/Time: Oct 03 2021 6:10P Dictated by : VERA OLIVA MD This examination was interpreted and the report reviewed and electronically signed by: VERA OLIVA MD on Oct 03 2021 6:12PM EST [id number] Normal [facility] Comprehensive metabolic 2000 panelon 10-03-2021 Albumin [Mass/Vol] 4.3 g/dL Normal 3.9-4.9 [facility] Comment on above: Order Comment: Speci men Type: BLOOD SPECIMENOrdering Facility: [facility] Address: [address] [place] [place] [address] Performed By: #### T NT, , ####[facility]ORATORYCLIA [id number] [place] [address] [place] ALP [Catalytic activity/Vol] 106 U/L Normal 38-113 [facility] Comment on above: Order Comment: Speci men Type: BLOOD SPECIMENOrdering Facility: [facility] Address: [address] [place] [address] Performed By: #### T NT, , ####[facility]ORATORYCLIA [id number] [address] [place] ALT [Catalytic activity/Vol] 20 U/L Normal 10-54 [facility] Comment on above: Order Comment: Speci men Type: BLOOD SPECIMENOrdering Facility: [facility] Address: [address] [place] [address] Performed By: #### T NT, , ####[facility]ORATORYIA [id number] [place] [address] [place] Anion gap [Moles/Vol] 12 mmol/L Normal 9-[address] [facility] Comment on above: Order Comment: Speci men Type: BLOOD SPECIMENOrdering Facility: [facility] Address: [address] [place] [address] Performed By: #### T NT, , ####[facility]ORATORYCLIA [id number] [place] [address] [place] AST [Catalytic activity/Vol] 22 U/L Normal 14-40 [facility] Comment on above: Order Comment: Speci men Type: BLOOD SPECIMENOrdering Facility: [facility] Address: [address] [place] [address] Performed By: #### T NT, , ####[facility]ORATORYCLIA [id number] [place] [address] [place] Bilirubin [Mass/Vol] 0.3 mg/dL Normal 0.2-1.3 [facility] Comment on above: Order Comment: Speci men Type: BLOOD SPECIMENOrdering Facility: [facility] Address: [address] [place] [address] Performed By: #### T NT, , ####[facility]ORATORYCLIA [id number] [place] [address] [place] Calcium [Mass/Vol] 9.6 mg/dL Normal 8.5-10.2 [facility] Comment on above: Order Comment: Speci men Type: BLOOD SPECIMENOrdering Facility: [facility] Address: [address] [place] [address] Performed By: #### T NT, , ####[facility]ORATORYCLIA [id number] [place] [address] [place] Chloride [Moles/Vol] 100 mmol/L Normal 97-105 [facility] Comment on above: Order Comment: Speci men Type: BLOOD SPECIMENOrdering Facility: [facility] Address: [address] [place] [address] Performed By: #### T NT, , ####[facility]ORATORYCLIA [id number] [place] [address] [place] CO2 [Moles/Vol] 28 mmol/L Normal 22-30 [facility] Comment on above: Order Comment: Speci men Type: BLOOD SPECIMENOrdering Facility: [facility] Address: [address] [place] [address] Performed By: #### T NT, , ####[facility]ORATORYCLIA [id number] [place] [address] [place] Creatinine [Mass/Vol] 1.09 mg/dL Normal 0.73-1.[address] [facility] Comment on above: Order Comment: Lucas olson Type: BLOOD SPECIMENOrdering Facility: [facility] Address: [address] [address] Performed By: #### T NT, 98506-2, ####[facility]ORATORYCLIA [id number] [place] [address] [place] ESTIMATED GLOMERULAR FILTRATION RATE 80 mL/min/1.73m??? Normal >=60 [facility] Comment on above: Order Comment: Lucas olson Type: BLOOD SPECIMENOrdering Facility: [facility] Address: [address] [place] [address] Result Comment: Delaney mated Glomerular Filtration Rate [...] Performed By: #### T NT, , ####[facility]ORATORYCLIA [id number] [place] [address] [place] Glucose [Mass/Vol] 142 mg/dL High 74-99 [facility] Comment on above: Order Comment: Lucas olson Type: BLOOD SPECIMENOrdering Facility: [facility] Address: [address] [address] Result Comment: The [place] [employer] (ADA) provides guidance for cutoff [...] Standards of Medical Care in Diabetes 2016, [place] [employer]. Diabetes Care. 2016.39(Suppl 1). Performed By: #### T NT, , ####[facility]ORATORYCLIA [id number] [place] [address] [place] Potassium [Moles/Vol] 4.3 mmol/L Normal 3.7-5.[address] [facility] Comment on above: Order Comment: Speci men Type: BLOOD SPECIMENOrdering Facility: [facility] Address: [address] [place] [address] Performed By: #### T NT, , ####[facility]ORATORYIA [id number] [place] [address] [place] Protein [Mass/Vol] 7.7 g/dL Normal 6.3-8.0 [facility] Comment on above: Order Comment: Speci men Type: BLOOD SPECIMENOrdering Facility: [facility] Address: [address] [address] Performed By: #### T NT, , ###[facility] LABORATORYIA [id number] [place] [address] [place] Sodium [Moles/Vol] 140 mmol/L Normal 136-144 [facility] Comment on above: Order Comment: Speci men Type: BLOOD SPECIMENOrdering Facility: [facility] Address: [address] [address] Performed By: #### T NT, , ####[facility] LABORATORYIA [id number] [place] [address] [place] Urea nitrogen [Mass/Vol] 19 mg/dL Normal 9-24 [facility] Comment on above: Order Comment: Speci men Type: BLOOD SPECIMENOrdering Facility: [facility] Address: [address] [address] Performed By: #### T NT, , 25446-8 ####[facility] LABORATORYIA [id number] [address] ED NOTEon 10-03-2021 ED NOTE HNO ID: [id number] Author: Ron Vargas PA-C Service: ? Author Type: Physician Abstract Writer Type: ED Notes Filed: 10/04/2021 1:18 PM [...] October 04, 2021 TIME: 1:17 PM [facility] ED NOTE HNO ID: [id number] Author: Homer Graham RN Service: Emergency Medicine Author Type: Registered Nurse Type: ED Notes Filed: 10/03/2021 7:24 PM Note Text: Discharge instructions given . And pt will call for follow up appointment in AM [facility] ED NOTE HNO ID: [id number] Author: Beckie Lindquist RN Service: Emergency Medicine Author Type: Registered Nurse Type: ED Notes Filed: 10/03/2021 6:53 PM Note Text: Dizziness only when standing [facility] ED NOTE HNO ID: [id number] Author: Beckie Lindquist RN Service: Emergency Medicine Author Type: Registered Nurse Type: ED Notes Filed: 10/03/2021 5:33 PM Note Text: To ct with a tech [facility] ED NOTE HNO ID: [id number] Author: Beckie Lindquist RN Service: Emergency Medicine Author Type: Registered Nurse Type: ED Notes Filed: 10/03/2021 4:57 PM Note Text: Patient states that he feels like the room is spinning with every movement [facility] ED NOTE HNO ID: [id number] Author: Beckie Lindquist RN Service: Emergency Medicine Author Type: Registered Nurse Type: ED Notes Filed: 10/03/2021 4:43 PM Note Text: Patient has a quarter size abscess under panis area red purple in color [facility] ED NOTE HNO ID: [id number] Author: Beckie Lindquist RN Service: Emergency Medicine Author Type: Registered Nurse Type: ED Notes Filed: 10/03/2021 4:32 PM Note Text: Patient states that he gets dizzy with movement 2nd complaint he has a abscess under his panis [facility] ED NOTE HNO ID: [id number] Author: Zakiya Walters RN Service: Emergency Medicine Author Type: Registered Nurse Type: ED Notes Filed: 10/03/2021 4:21 PM Note Text: Pt. Presents with dizzyness that started Sunday. No nausea/vomiting, no blurry or double vision. Per pt, he also has a boil on his groin area he needs checked out. [facility] ED PROV NOTEon 10-03-2021 ED PROV NOTE HNO ID: [id number] Author: Ron Vargas PA-C Service: Emergency Medicine Author Type: Physician Abstract Writer Type: ED Provider Notes Filed: 10/03/2021 7:09 PM Note Text: ED Provider Note Patient Name: Jame Wallace : 1965 SERVICE DATE: 10/03/21 History Patient presents with: Dizziness Abscess: PUBIC AREA 56-year-old male with PMH of DM, diverticulitis, RA, neuropathy, vertigo presents for multiple complaints. Patient states that he was sent here from [facility] due to complaints of dizziness. Patient [...] Patient is also complaining of concern for "abscess" in his groin region. 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 [facility] Magnesium [Mass/Vol] 2.2 mg/dL Normal 1.7-2.3 [facility] Comment on above: Order Comment: Speci men Type: BLOOD SPECIMENOrdering Facility: [facility] Address: [address] [place] [address] Performed By: #### Edita CHRISTY, 00929-4, 23555-7 ###[facility] LABORATORYCLIA [id number] [place] [address] [place] TROPONIN Ton 10-03-2021 Troponin T.cardiac [Mass/Vol] ug/L Normal <=0.029 [facility] Comment on above: Order Comment: Speci men Type: BLOOD SPECIMENOrdering Facility: [facility] Address: [address] [place] [address] Performed By: #### T NT, 45936-5, 61963-2 ####[facility] LABORATORYCLIA [id number] [address] OF [facility] XR CHEST 2V FRONTAL/LATon XR CHEST 2V [...] right hemidiaphragm. IMPRESSION: No acute radiographic abnormality. Director Of Marketing Communications: PSCMargarita Transcribe Date/Time: Oct 03 2021 6:20P Dictated by : MARTHA DOLAN MD This examination was interpreted and the report reviewed and electronically signed by: MARTHA DOLAN MD on Oct 03 2021 6:21PM EST [id number] [facility] CNOVon 04-07-2021 CNOV Office Visit (GENMARYANN ) JAME WALLACE ([id number]) 1965 M Date Time Provider Department 04/07/21 [...] Veronique Vo MD Referring Provider: VERONIQUE VO [[id number]] Allergies As of Date: 04/07/2021 Noted Allergy [...] Encounter Status:Closed by VERONIQUE VO on 04/07/21 [facility] CNOVon 03-24-2021 CNOV Office Visit (OSMEL ) JAME WALLACE ([id number]) 1965 M Date Time Provider Department 03/24/21 [...] Veronique Vo MD Referring Provider: VERONIQUE VO [[id number]] Allergies As of Date: 03/24/2021 Noted Allergy [...] Encounter Status:Closed by VERONIQUE VO on 03/24/21 [facility] CNOVon 03-15-2021 CNOV Office Visit (GENMARYANN ) JAME WALLACE ([id number]) 1965 M Date Time Provider Department 03/15/21 [...] Veronique Vo MD Referring Provider: JENNY LIVE [[id number]] Allergies As of Date: 03/15/2021 Noted Allergy [...] Encounter Status:Closed by VERONIQUE VO on 03/15/21 [facility] 03-11-2021 [facility] Telephone ([facility]) JAME WALLACE ([id number]) 1965 M Date Time Provider Department 03/11/21 JENNY LIVE [facility] During your visit today, we recorded the following information about you: Ariadne Mook 03/11/2021 4:11 PM Signed Record ID: [id number] Patient Name: Jame Wallace [facility]: [facility] [place]: [facility] [place] Attending: [facility]: Sleep Disorders INSTRUCTIONS MA to remind patient of next upcoming appointment date, time, location All Clear All Clear SURVEY INFORMATION Medical/Nurse Abstract Writer: Ralph Foley 1. Your discharge instructions are [...] Reason for Visit: Follow Up Phone Call [4037] Cmt: All Clear Prescriptions as of 03/11/2021 [...] Encounter Status:Closed by ARIADNE CANTOR on 03/11/21 [facility] Slim 03-07-2021 CNPN Telephone (UROLMD) JAME WALLACE ([id number]) 1965 M Date Time Provider Department 03/07/21 EMILIA PARMAR During your visit today, we recorded the following information about you: Emilia Parmar, MAURI 03/07/2021 2:03 PM Signed Patients called, stated [...] reliever Preferred pharmacy has been confirmed Manuel Gordon/Antonia Meza RN Maria D Mariano RN 03/08/2021 10:34 AM Signed Spoke with patient as was calling back to see if anything else could be ordered for pain. 7 for pain today, and he is taking the Below Aleve and Tylenol with little relief. Yesterday draining was worse than today. Drainage today was per diem registered nurse, but he states that skin around wound [...] paralysis [J9 (more content not included)... [facility] ALBUMINon 12-24-2020 Albumin [Mass/Vol] 3.9 g/dL Normal 3.4 - 5.0 [facility] Comment on above: Performed By: #### A LB #### [facility] [address] [place] [address] Keshawn 12-24-2020 ALT [Catalytic activity/Vol] 21 U/L Normal - [facility] Comment on above: Result Comment: Damari ents treated with Sulfasalazine may generate falsely decreased results for ALT. Performed By: #### A LT #### [facility] [address] [place] [address] ALT - Alanine Aminotransfera se, Serumon 12-24-2020 ALT With P-5'-P [Catalytic activity/Vol] 21 U/L [facility] Work Phone: [phone] Comment on above: Patients treated wit h Sulfasalazine may generate falsely decreased results for ALT. Parker 12-24-2020 AST [Catalytic activity/Vol] 22 U/L Normal 9 - 39 [facility] Comment on above: Performed By: #### A ST #### [facility] [address] [place] [address] Albumin, Serumon 12-24-2020 Albumin BCP dye [Mass/Vol] 3.9 g/dL 3.4 - 5.0 [facility] Work Phone: [phone] Blood Urea Nitrogen, Serumon 12-24-2020 Urea nitrogen [Mass/Vol] 17 mg/dL [facility] Work Phone: C Reactive Protein, Serumon 12-24-2020 CRP [Mass/Vol] 1.16 mg/dL Abnormal [facility] Work Phone: [phone] Comment on above: REF VALUE< 1.00 C-REACTIVE PROTEINon 12-24- 021 C-REACTIVE PROTEIN 1.16 mg/dL Abnormal [facility] Comment on above: Result Comment: REF VALUE < 1.00 Performed By: #### C RP #### [facility] [address] [place] [address] CBC AND DIFFERENTIALon 12-24 % AUTOMATED IMMATURE GRAN 0.2 % Normal 0.0 - 0.9 [facility] Comment on above: Result Comment: Shobha ture Granulocyte Count (IG) includes promyelocytes, myelocytes and metamyelocytes but does not include bands. Percent differential counts (%) should be interpreted in the context of the absolute cell counts (cells/L). Performed By: #### C BCDF #### [facility] [address] [place] [address] Basophils (Bld) [#/Vol] 0.04 10*3/uL Normal 0.00 - 0.10 [facility] Comment on above: Performed By: #### C BCDF #### [facility] [address] [place] [address] Basophils/100 WBC (Bld) 0.5 % Normal 0.0 - 2.0 [facility] Comment on above: Performed By: #### C BCDF #### [facility] [address] [place] [address] Eosinophils (Bld) [#/Vol] 0.14 10*3/uL Normal 0.00 - 0.70 [facility] Comment on above: Performed By: #### C BCDF #### [facility] [address] [place] [address] Eosinophils/100 WBC (Bld) 1.7 % Normal 0.0 - 6.0 [facility] Comment on above: Performed By: #### C BCDF #### [facility] [address] [place] [address] Erythrocyte distribution width (RBC) [Ratio] 13.2 % Normal 11.5 - 14.5 [facility] Comment on above: Performed By: #### C BCDF #### [facility] [address] [place] [address] Hematocrit (Bld) [Volume fraction] 51.4 % Normal 41.0 - 52.0 [facility] Comment on above: Performed By: #### C BCDF #### [facility] [address] [place] [address] Hemoglobin (Bld) [Mass/Vol] 16.5 g/dL Normal 13.5 - 17.5 [facility] Comment on above: Performed By: #### C BCDF #### [facility] [address] [place] [address] Lymphocytes (Bld) [#/Vol] 1.63 10*3/uL Normal 1.20 - 4.80 [facility] Comment on above: Performed By: #### C BCDF #### [facility] [address] [place] [address] Lymphocytes/100 WBC (Bld) 20.2 % Normal 13.0 - 44.0 [facility] Comment on above: Performed By: #### C BCDF #### [facility] [address] [place] [address] MCHC (RBC) [Mass/Vol] 32.1 g/dL Normal 32.0 - 36.0 [facility] Comment on above: Performed By: #### C BCDF #### [facility] [address] [place] [address] MCV (RBC) [Entitic vol] 98 fL Normal 80 - 100 [facility] Comment on above: Performed By: #### C BCDF #### [facility] [address] [place] [address] Monocytes (Bld) [#/Vol] 0.76 10*3/uL Normal 0.10 - 1.00 [facility] Comment on above: Performed By: #### C BCDF #### [facility] [address] [place] [address] Monocytes/100 WBC (Bld) 9.4 % Normal 2.0 - 10.0 [facility] Comment on above: Performed By: #### C BCDF #### [facility] [address] [place] [address] Neutrophils (Bld) [#/Vol] 5.47 10*3/uL Normal 1.20 - 7.70 [facility] Comment on above: Performed By: #### C BCDF #### [facility] [address] [place] [address] Neutrophils/100 WBC (Bld) 68.0 % Normal 40.0 - 80.0 [facility] Comment on above: Performed By: #### C BCDF #### [facility] [address] [place] [address] NUCLEATED RBC 0.0 /100 WBC Normal 0.0-0.0 [facility] Comment on above: Performed By: #### C BCDF #### [place] [address] [place] [address] Platelets (Bld) [#/Vol] 244 10*3/uL Normal 150 - 450 [facility] Comment on above: Performed By: #### C BCDF #### [place] [address] [place] [address] RBC 5.25 x10E12/L Normal 4.50 - 5.90 [facility] Comment on above: Performed By: #### C BCDF #### [facility] [address] [place] [address] WBC (Bld) [#/Vol] 8.1 10*3/uL Normal 4.4 - 11.3 [facility] Comment on above: Performed By: #### C BCDF #### [facility] [address] [place] [address] CREATININEon 12-24-2020 Creatinine [Mass/Vol] 1.33 mg/dL High 0.50 - 1.30 [facility] Comment on above: Performed By: #### C REAT #### [facility] [address] [place] [address] GFR- AM. 68 mL/min/1.73m2 Normal >60 [facility] Comment on above: Result Comment: CALC ULATIONS OF ESTIMATED GFR ARE PERFORMED USING THE MDRD STUDY EQUATION FOR THE IDMS-TRACEABLE CREATININE METHODS. CLIN CHEM 2007;53:766-72 Performed By: #### C REAT #### [facility] [address] [place] [address] GFR-NON AM. 56 mL/min/1.73m2 Abnormal >60 [facility] Comment on above: Performed By: #### C REAT #### [facility] [address] [place] [address] Complete Blood Count + Diffe todd 12-24-2020 Basophils/100 WBC (Bld) 0.5 % 0.0 - 2.0 [employer] [facility] Work Phone: [phone] Erythrocyte distribution width (RBC) [Ratio] 13.2 % See Below [employer] [facility] Work Phone: [phone] Comment on above: Reference Range: 11. 5 - 14.5 Hematocrit (Bld) [Volume fraction] 51.4 % See Below [employer] [facility] Work Phone: [phone] Comment on above: Reference Range: 41. 0 - 52.0 Hemoglobin (Bld) [Mass/Vol] 16.5 g/dL See Below [employer] [facility] Work Phone: [phone] Comment on above: Reference Range: 13. 5 - 17.5 Lymphocytes/100 WBC (Bld) 20.2 % See Below [employer] [facility] Work Phone: [phone] Comment on above: Reference Range: 13. 0 - 44.0 MCHC (RBC) [Mass/Vol] 32.1 g/dL See Below [employer] [facility] Work Phone: [phone] Comment on above: Reference Range: 32. 0 - 36.0 MCV (RBC) [Entitic vol] 98 fL 80 - 100 [employer] [facility] Work Phone: [phone] Monocytes/100 WBC (Bld) 9.4 % 2.0 - 10.0 [employer] [facility] Work Phone: [phone] Neutrophils/100 WBC (Bld) 68.0 % See Below [employer] [facility] Work Phone: [phone] Comment on above: Reference Range: 40. 0 - 80.0 Platelets (Bld) [#/Vol] 244 10*3/uL 150 - 450 -[facility] Work Phone: [phone] RBC (Bld) [#/Vol] 5.25 {x10E12/L} See Below [facility] Work Phone: [phone] Comment on above: Reference Range: 4.5 0 - 5.90 WBC (Bld) [#/Vol] 8.1 10*3/uL 4.4 - 11.3 [facility] Work Phone: [phone] Complete Blood Count + Differential 0.04 {x10E9/L} See Below [facility] Work Phone: [phone] Comment on above: Reference Range: 0.0 0 - 0.10 Complete Blood Count + Differential 0.14 {x10E9/L} See Below [facility] Work Phone: [phone] Comment on above: Reference Range: 0.0 0 - 0.70 Complete Blood Count + Differential 0.76 {x10E9/L} See Below [facility] Work Phone: [phone] Comment on above: Reference Range: 0.1 0 - 1.00 Complete Blood Count + Differential 1.63 {x10E9/L} See Below [facility] Work Phone: [phone] Comment on above: Reference Range: 1.2 0 - 4.80 Complete Blood Count + Differential 5.47 {x10E9/L} See Below [facility] Work Phone: [phone] Comment on above: Reference Range: 1.2 0 - 7.70 Complete Blood Count + Differential 1.7 % 0.0 - 6.0 [facility] Work Phone: [phone] Complete Blood Count + Differential 0.2 % 0.0 - 0.9 [facility] Work Phone: [phone] Comment on above: Immature Granulocyte Count (IG) includes promyelocytes, myelocytes and metamyelocytes but does not include bands. Percent differential counts (%) should be interpreted in the context of the absolute cell counts (cells/L). Complete Blood Count + Differential 0.0 {/100_WBC} 0.0-0.0 [employer] [facility] Work Phone: Creatinine, Serumon 12-25-19 Creatinine [Mass/Vol] 1.33 mg/dL above high threshold See Below [employer] [facility] Work Phone: Comment on above: Reference Range: 0.5 0 - 1.30 Creatinine, Serum 68 {mL/min/1.73m2} >60 [employer] [facility] Work Phone: Comment on above: CALCULATIONS OF DELANEY MATED GFR ARE PERFORMED USING THE MDRD STUDY EQUATION FOR THE IDMS-TRACEABLE CREATININE METHODS. CLIN CHEM 2007;53:766-72 Creatinine, Serum 56 {mL/min/1.73m2} Abnormal >60 [facility] Work Phone: Follow Up (Rheumatology)on 0 12-24-2020 [...] HEART HEALTHY DIET - ARNOL; Status:Active; Requested for:[id number]; Perform:[employer];Ordered; For:Class 3 severe obesity due to excess calories with body mass index (BMI) of 45.0 to 49.9 in adult; Ordered By:Rosie Guerrero; Primary osteoarthritis involving multiple joints Stop: Indomethacin 50 MG Oral Capsule Rx By: Rosie Guerrero; Dispense: 30 Days ; #:60 Capsule; Refill: 5;For: Primary osteoarthritis involving multiple joints; ERVIN = N; Verified Transmission to [facility] #[id number] Start: Celecoxib 200 MG Oral Capsule (Celecoxib); TAKE 1 CAPSULE Daily Rx By: Rosie Guerrero; Dispense: 0 Days ; #:30 Capsule; Refill: 5;For: Primary osteoarthritis involving multiple joints; ERVIN = N; Sent To: [facility] #5839 Raynaud's disease Albumin, Serum; Status:In Progress - Specimen/Data Collected; Done: 24Dec2020 Perform:Lab Services - Lab To Draw (Blood Test); Due:24Mar2021;Ordered; For:Raynaud's disease; Ordered By:Rosie Guerrero; ALT - Alanine Aminotransferase, Serum; Status:In Progress - Specimen/Data Collected; Done: 24Dec2020 Perform:Lab Services - Lab To Draw (Blood Test); Due:24Mar2021;Ordered; For:Raynaud's disease; Ordered By:Rosie Guerrero; AST; Status:In Progress - Specimen/Data Collected; Done: [id number] Perform:Lab Services - Lab To Draw (Blood Test); Due:24Mar2021;Ordered; For:Raynaud's disease; Ordered By:Rosie Guerrero; Blood Urea Nitrogen, Serum; Status:In Progress - Specimen/Data Collected; Done: [id number] Perform:Lab Services - Lab To Draw (Blood Test); Due:24Mar2021;Ordered; For:Raynaud's disease; Ordered By:Rosie Guerrero; C Reactive Protein, Serum; Status:In Progress - Specimen/Data Collected; Done: [id number] Perform:Lab Services - Lab To Draw (Blood Test); Due:24Mar2021;Ordered; For:Raynaud's disease; Ordered By:Rosie Guerrero; Complete Blood Count + Differential; Status:In Progress - Specimen/Data Collected; Done: 88Yud0343 Perform:Lab Services - Lab To Draw (Blood Test); Due:24Mar2021;Ordered; For:Raynaud's disease; Ordered By:Rosie Guerrero; Creatinine, Serum; Status:In Progress - Specimen/Data Collected; Done: 32Kwp6755 Perform:Lab Services - Lab To Draw (Blood Test); Due:24Mar2021;Ordered; For:Raynaud's disease; Ordered By:Rosie Guerrero; Hemoglobin A1C; Status:In Progress - Specimen/Data Collected; Done: [id number] Perform:Lab Services - Lab To Draw (Blood Test); Due:24Mar2021;Ordered; For:Raynaud's disease; Ordered By:Rosie Guerrero; Sedimentation Rate, Erythrocyte; Status:In Progress - Specimen/Data Collected; Done: [id number] Perform:Lab Services - Lab To Draw (Blood [...] A1Con 12-24-2020 Glucose [Mass/Vol] 203 mg/dL Normal [facility] Comment on above: Performed By: #### H BA1E #### [facility] [address] [place] [address] HbA1c (Bld) [Mass fraction] 8.7 % Normal [facility] Comment on above: Result Comment: Diag nosis of Diabetes-Adults Non-Diabetic: < or = 5.6% Increased risk for developing diabetes: 5.7-6.4% Diagnostic of diabetes: > or = 6.5% . Monitoring of Diabetes Age (y) Therapeutic Goal (%) Adults: >18 <7.0 Pediatrics: 13-18 <7.5 7-12 <8.0 0- 6 7.5-8.5 [employer]. Diabetes Care 33(S1), Jun 2009. Performed By: #### H BA1E #### [facility] [address] [place] [address] Hemoglobin A1Con 12-24-2020 Glucose [Mass/Vol] 203 mg/dL [facility] Work Phone: HbA1c (Bld) [Mass fraction] 8.7 % [facility] Work Phone: Comment on above: Diagnosis of Diabete s-Adults Non-Diabetic: < or = 5.6% Increased risk for developing diabetes: 5.7-6.4% Diagnostic of diabetes: > or = 6.5%. Monitoring of Diabetes Age (y) Therapeutic Goal (%) Adults: >18 <7.0 Pediatrics: 13-18 <7.5 7-12 <8.0 0- 6 7.5-8.5 [employer]. Diabetes Care 33(S1), Jun 2009. Laboratory - Chemistry and C hemistry - challengeon 12-24-2020 AST With P-5'-P [Catalytic activity/Vol] 22 U/L 9 - 39 [facility] Work Phone: [phone] SEDIMENTATION RATE, ERYTHROC YTEon 12-24-2020 SEDIMENTATION RATE, ERYTHROCYTE 39 mm/h High 0 - 20 [facility] Comment on above: Performed By: #### E SRWS #### [facility] [address] [place] [address] Sedimentation Rate, Erythroc yteon 12-24-2020 ESR (Bld) [Velocity] 39 mm/h above high threshold 0 - 20 [facility] Work Phone: [phone] Tobacco Screening.on 021 Fall risk assessment a) No falls within the last year [facility] Work Phone: [phone] Tobacco use status CPHS b) No [facility] Work Phone: [phone] UREA NITROGENon 12-24-2020 Urea nitrogen [Mass/Vol] 17 mg/dL Normal 6 - 23 [facility] Comment on above: Performed By: #### U GIORGIO #### [facility] [address] [place] [address] Follow Up (Rheumatology)on 0 06-25-2020 Follow Up [...] joints; ERVIN = N; Verified Transmission to [facility] #[id number]; Last Updated By: [employer]; 06/25/2020 3:29:03 PM Patient Discussion/Summary It was [...] occurred today Lab and xray tests were reviewed--[facility] This visit has a moderate risk for [...] History Problems History of Ankle injury (959.7) (S99.959A) Resolved Date: 05 Oct 2016 History of [...] [place]) Oral CapsuleTAKE DIRECTED. Immunizations 12 Influenza 2018 Vitals Vital Signs Recorded: 44Fur4128 03:17PM Defarlavmvr68.4 F Heart Rate70 Systo (more content not included)... Normal [employer] Slim 10-08-2019 MEKA Telephone (SPPRAD) JAME WALLACE ( ) 1965 M Date Time Provider Department 10/08[facility]19 [facility] During your visit today, we recorded the following information about you: Mac Carvajal APRN.CNP 10/08/2019 1:47 PM Signed Received [employer] message re: need for pre-operative/pre-procedura l COVID19 [...] to receive Jame's results. Kindly, Mac Carvajal APRN.CATRACHITA Allergies As of Date: 10/08/2019 (No Known Allergies) Date Reviewed: 08/11/2019 Reviewed by: Jaymie [facility]yleN[facility] CenterDeangelo Kim - Fully Assessed Reason for Visit: Covid-19 Hotline [1224] Primary Visit Diagnosis:Preoperative testing [Z01.818] Order(s):2019 CORONAVIRUS [SQCOVID] Order #: [id number] FUTURE Prescriptions as of 10/08/2019 Sig: ETODOLAC [...] Encounter Status:Closed by MAC CARVAJAL on 10/08/19 [facility] MRI UPPER EXTREMITY RIGHT W JT WO STEFANIEon 01-24-2019 Patient Name: JAME SHETLON ---MRI--- Exam Date/Time 01/24/2019 07:42:41 EDT Exam MRI Up Ext Joint w/o Contrast Right Ordering Physician MANDO DESIR JANETTE Accession Number [id number] CPT4 Codes 53529 () Reason For Exam right pain Report [...] NEIL Transcribed Date and Time: 01/24/2019 7:58 [place], [place] [facility] Incoming Radiology Results From [facility] - 01/24/2019 8:04 AM EDT Patient Name: JAME WALLACE ---MRI--- Exam Date/Time 01/24/2019 07:42:41 EDT Exam MRI Up Ext Joint w/o Contrast Right Ordering Physician MANDO DESIR MICHELLE Accession Number [id number] CPT4 Codes 42687 () Reason For Exam right pain Report [...] NEIL Transcribed Date and Time: 01/24/2019 7:58 [place], [place] MRI Up Ext Joint w/o Contras t Righton 01-24-2019 MRI Up Ext Joint w/o Contrast Right Patient Name: JAME WALLACE MRI Exam Date/Time 01/24/2019 07:42:41 EDT Exam MRI Up Ext Joint w/o Contrast Right Ordering Physician MANDO DESIR MICHELLE Accession Number [id number] CPT4 Codes 85106 () Reason For Exam right pain Report [...] Transcribed Date and Time: 01/24/2019 7:58 [address] [facility] CT HEAD W/O CONTRASTon 05-27 Protein mass conc Performed at [facility] APPROVED BY: RALPH BROUSSARD MD [...] appear normal. IMPRESSION: NORMAL HEAD CT Normal [facility] Comprehensive Panelon 2017 Albumin mass conc 3.3 g/dL Low 3.4-5.0 [facility] Comment on above: Performed By: #### L P14 ####[place] [address] ALP enzyme act/vol 96 U/L Normal 46-116 [facility] Comment on above: Performed By: #### L P14 ####[address] [address] ALT-SGPT Blood 29 U/L Normal 14-63 [facility] Comment on above: Performed By: #### L P14 ####[address] [address] Anion gap 3 molar conc 10 mmol/L Normal 8-20 [facility] Comment on above: Performed By: #### L P14 ####[address] [address] AST-SGOT Blood 20 U/L Normal 15-37 [facility] Comment on above: Performed By: #### L P14 ####[place] [address] Bilirubin Ql (U) 0.2 mg/dL Normal 0.2-1.0 [facility] Comment on above: Performed By: #### L P14 ####[address] [address] Calcium mass conc 9.3 mg/dL Normal 8.5-10.1 [facility] Comment on above: Performed By: #### L P14 ####[address] [address] Chloride molar conc 103 mmol/L Normal 98-107 [facility] Comment on above: Performed By: #### L P14 ####[facility] [place], [place] [address] CO2 molar conc 30 mmol/L Normal 21-32 [facility] Comment on above: Performed By: #### L P14 ####[facility] [place], [place] [address] Creatinine mass conc 1.26 mg/dL High 0.67-1.17 [facility] Comment on above: Performed By: #### L P14 ####[facility] [place], [place] [address] Glucose mass conc 160 mg/dL High 70-99 [facility] Comment on above: Performed By: #### L P14 ####[address] [address] Potassium molar conc 4.2 mmol/L Normal 3.5-5.1 [facility] Comment on above: Performed By: #### L P14 ####[address] [address] Protein mass conc 7.0 g/dL Normal 6.4-8.2 [facility] Comment on above: Performed By: #### L P14 ####[address] [address] Sodium molar conc 139 mmol/L Normal 136-145 [facility] Comment on above: Performed By: #### L P14 ####[address] [address] Urea nitrogen mass conc (Bld) 19 mg/dL Normal 7-25 [facility] Comment on above: Performed By: #### L P14 ####[address] [address] Urea nitrogen/Creatinine mass ratio 15 mg/mg Normal 10-20 [facility] Comment on above: Performed By: #### L P14 ####[place] [address] Hemogram/Diffon 05-27-2018 Abs. Baso 0.07 thou/cmm Normal 0.00-0.08 [facility] Comment on above: Performed By: #### L CBCD ####[address] [address] Abs. [place] 1.33 thou/cmm High 0.20-1.00 [facility] Comment on above: Performed By: #### L CBCD ####[place] [address] Abs. Neut (ANC) 6.83 thou/cmm High 3.00-5.67 [facility] Comment on above: Result Comment: PEDRO ECTED: Previous result = 6.80, verified at 21:23 on 05/27/18. Performed By: #### L CBCD ####[place] [address] Basophils/100 WBC Auto (Bld) 0.6 % Normal [facility] Comment on above: Performed By: #### L CBCD ####[place] [address] Eosinophils Auto #/vol (Bld) 0.21 thou/cmm Normal 0.00-0.41 [facility] Comment on above: Performed By: #### L CBCD ####[place] [address] Eosinophils/100 WBC Auto (Bld) 1.9 % Normal [facility] Comment on above: Performed By: #### L CBCD ####[place] [address] Erythrocyte distribution width Auto Ratio (RBC) 13.9 % Normal 11.5-15.9 [facility] Comment on above: Performed By: #### L CBCD ####[place] [address] Hematocrit Auto Volume Fraction (Bld) 43.7 % Normal 42.0-52.0 [facility] Comment on above: Performed By: #### L CBCD ####[place] [address] Hemoglobin mass conc (Bld) 14.3 g/dL Normal 14.0-18.0 [facility] Comment on above: Performed By: #### L CBCD ####[place] [address] Lymphocytes Auto #/vol (Bld) 2.86 thou/cmm Normal 1.50-3.65 [facility] Comment on above: Performed By: #### L CBCD ####[address] [address] Lymphocytes/100 WBC Auto (Bld) 25.3 % Normal [facility] Comment on above: Performed By: #### L CBCD ####[place] [address] MCH Auto Entitic mass (RBC) 30.8 pg Normal 27.0-31.0 [facility] Comment on above: Performed By: #### L CBCD ####[place] [address] MCHC Auto mass conc (RBC) 32.7 % Normal 32.0-36.0 [facility] Comment on above: Performed By: #### L CBCD ####[place] [address] MCV Auto Entitic volume (RBC) 94.0 fL Normal 80.0-94.0 [facility] Comment on above: Performed By: #### L CBCD ####[place] [address] Monocytes/100 WBC Auto (Bld) 11.8 % Normal [facility] Comment on above: Performed By: #### L CBCD ####[place] [address] Platelet mean volume Auto Entitic volume (Bld) 11.2 fL High 7.1-10.5 [facility] Comment on above: Performed By: #### L CBCD ####[address] [address] Platelets Auto #/vol (Bld) 262 thou/cmm Normal 150-400 [facility] Comment on above: Performed By: #### L CBCD ####[place] [address] RBC Auto #/vol (Bld) 4.65 mil/cmm Normal 4.60-6.20 [facility] Comment on above: Performed By: #### L CBCD ####[facility] [place], [place] [address] Seg Neutrophil 60.4 % Normal [facility] Comment on above: Performed By: #### L CBCD ####[facility] [place], [place] [address] WBC Auto #/vol (Bld) 11.3 thou/cmm High 4.8-10.8 [facility] Comment on above: Performed By: #### L CBCD ####[facility] [place], [place] [address] MDRD eGFRon 05-27-2018 GFR/1.73 sq M predicted among non-blacks MDRD vol rate/area (S/P/Bld) mL/min/{1.73_m2} Normal >60mL/min/ 1.73m2 [facility] Comment on above: Result Comment: If t he patient is , multiply the result by 1.210. Performed By: #### L GFR ####[address] [address] LUMBOSACRAL SPINE MIN 4 VIEW Son 04-26-2018 LUMBOSACRAL SPINE MIN 4 VIEWS Performed at [facility] APPROVED BY: ROYER TOWNSEND MD LUMBAR SPINE [...] the level of the iliac crest. Normal [facility] KNEE COMP 4 OR MORE VIEWS UN ILATERALon 12-17-2017 Protein mass conc Performed at [facility] APPROVED BY: Mele Clayton MD EXAM TITLE: RIGHT KNEE COMP 4 OR MORE VIEWS UNILATERAL, KNEES BOTH STANDING AP DATE: 12/17/2017 14:38 (accession [id number]), 12/17/2017 14:39 (accession [id number]) COMPARISON: None. CLINICAL INDICATION/HISTORY: Status post fall [...] Very slight bilateral medial compartmental narrowing. Normal [facility] KNEES BOTH STANDING APon Protein mass conc Performed at [facility] APPROVED BY: Mele Clayton MD EXAM TITLE: RIGHT KNEE COMP 4 OR MORE VIEWS UNILATERAL, KNEES BOTH STANDING AP DATE: 12/17/2017 14:38 (accession [id number]), 12/17/2017 14:39 (accession [id number]) COMPARISON: None. CLINICAL INDICATION/HISTORY: Status post fall [...] Very slight bilateral medial compartmental narrowing. Normal [facility] Vital Signs Date Time Vital Sign Value Performing Clinician Facility 03-20-2025 09:17-0400 Heart rate 69 /min [employer] Work Phone: [facility] 03-20-2025 09:15-0400 Body temperature 98 [degF] [employer] Work Phone: [facility] 03-20-2025 09:15-0400 Diastolic blood pressure 62 mm[Hg] [employer] Work Phone: [facility] 03-20-2025 09:15-0400 Respiratory rate 16 /min Jennyshruthi [employer] Work Phone: [facility] 03-20-2025 09:15-0400 SaO2% (BldA) [Mass fraction] 95 % [employer]hr[employer]i [employer] Work Phone: [facility] 03-20-2025 09:15-0400 Systolic blood pressure 124 mm[Hg] [employer] Work Phone: [phone] [place] [address] 03-19-2025 15:46-0400 Body height 187.96 cm [employer] Work Phone: 8(898)505-761379 [place] [address] 03-19-2025 15:46-0400 Body weight 164.8 kg [employer] Work Phone: 9(526)533-741579 [place] [address] 03-19-2025 14:52-0400 Body mass index (BMI) [Ratio] 46.6 kg/m2 [employer] Work Phone: [facility] 03-18-2025 17:43-0400 Diastolic blood pressure 50 mm[Hg] [employer] Work Phone: [facility] 03-18-2025 17:43-0400 Heart rate 86 /min [employer]hr[employer] Work Phone: [facility] 03-18-2025 17:43-0400 Respiratory rate 18 /min [employer] Work Phone: [facility] 03-18-2025 17:43-0400 SaO2% (BldA) [Mass fraction] 94 % [employer] Work Phone: [facility] 03-18-2025 17:43-0400 Systolic blood pressure 80 mm[Hg] [employer] Work Phone: [facility] 03-18-2025 17:11-0400 Body mass index (BMI) [Ratio] 46.2 kg/m2 [employer] Work Phone: [facility] 03-18-2025 17:11-0400 Body temperature 97.9 [degF] [employer] Work Phone: [facility] 03-18-2025 17:11-0400 Body weight 163.29 kg [employer] Work Phone: [facility] 03-17-2025 14:41-0400 Body temperature 97.6 [degF] [employer] Work Phone: [facility] 03-17-2025 14:41-0400 Diastolic blood pressure 66 mm[Hg] [employer] Work Phone: [facility] 03-17-2025 14:41-0400 Heart rate 78 /min [employer] Work Phone: [facility] 03-17-2025 14:41-0400 Respiratory rate 18 /min [employer] Work Phone: [facility] 03-17-2025 14:41-0400 SaO2% (BldA) [Mass fraction] 96 % [employer] Work Phone: [facility] 03-17-2025 14:41-0400 Systolic blood pressure 98 mm[Hg] [employer] Work Phone: [facility] 03-17-2025 03:30-0400 Inhaled oxygen flow rate 2 L/min [employer] Work Phone: [facility] 03-17-2025 03:24-0400 Body mass index (BMI) [Ratio] 46.9 kg/m2 [employer] Work Phone: [facility] 03-17-2025 03:24-0400 Body weight 165.8 kg [employer] Work Phone: [facility] 03-11-2025 12:44-0400 Heart rate 76 /min Jennyshr[employer]i [employer] Work Phone: [facility] 03-11-2025 12:44-0400 Inhaled oxygen flow rate 2 L/min [employer] Work Phone: [facility] 03-11-2025 12:44-0400 Respiratory rate 16 /min Jennyshr[employer]i [employer] Work Phone: [facility] 03-11-2025 12:44-0400 SaO2% (BldA) [Mass fraction] 96 % [employer] Work Phone: [facility] 03-11-2025 12:44-0400 Body temperature 97 [degF] [employer] Work Phone: [facility] 03-11-2025 12:44-0400 Diastolic blood pressure 64 mm[Hg] [employer] Work Phone: [facility] 03-11-2025 12:44-0400 Systolic blood pressure 124 mm[Hg] [employer] Work Phone: [facility] 03-11-2025 11:30-0400 Body temperature 97 [degF] [employer] Work Phone: [facility] 03-11-2025 11:30-0400 Diastolic blood pressure 72 mm[Hg] [employer] Work Phone: [facility] 03-11-2025 11:30-0400 Heart rate 65 /min [employer] Work Phone: [facility] 03-11-2025 11:30-0400 Respiratory rate 16 /min [employer] Work Phone: [facility] 03-11-2025 11:30-0400 SaO2% (BldA) [Mass fraction] 93 % [employer] Work Phone: [facility] 03-11-2025 11:30-0400 Systolic blood pressure 116 mm[Hg] [employer] Work Phone: [facility] 03-11-2025 11:15-0400 Inhaled oxygen flow rate 2 L/min [employer] Work Phone: [facility] 03-11-2025 08:05-0400 Body height 182.88 cm [employer] Work Phone: [facility] 03-11-2025 08:05-0400 Body mass index (BMI) [Ratio] 49.3 kg/m2 Jennyshruthi [employer] Work Phone: [facility] 03-11-2025 08:05-0400 Body weight 165 kg [employer] Work Phone: [facility] 11-27-2024 16:03-0400 Body mass index (BMI) [Ratio] 50 kg/m2 Jennyshruthi [employer] Work Phone: [facility] 11-27-2024 16:03-0400 Body temperature 97.3 [degF] [employer] Work Phone: [facility] 11-27-2024 16:03-0400 Body weight 167.37 kg [employer] Work Phone: [facility] 11-27-2024 16:03-0400 Diastolic blood pressure 70 mm[Hg] [employer] Work Phone: [facility] 11-27-2024 16:03-0400 Heart rate 89 /min [employer] Work Phone: [facility] 11-27-2024 16:03-0400 Respiratory rate 18 /min [employer] Work Phone: [facility] 11-27-2024 16:03-0400 SaO2% (BldA) [Mass fraction] 98 % [employer] Work Phone: [facility] 11-27-2024 16:03-0400 Systolic blood pressure 138 mm[Hg] [employer] Work Phone: [facility] 10-23-2024 17:52-0400 Body height 182.88 cm [employer] Work Phone: [facility] 10-23-2024 17:52-0400 Body mass index (BMI) [Ratio] 50.1 kg/m2 [employer] Work Phone: [facility] 10-23-2024 17:52-0400 Body temperature 97.9 [degF] [employer] Work Phone: [facility] 10-23-2024 17:52-0400 Body weight 167.82 kg [employer] Work Phone: [facility] 10-23-2024 17:52-0400 Diastolic blood pressure 70 mm[Hg] [employer] Work Phone: [facility] 10-23-2024 17:52-0400 Heart rate 67 /min [employer] Work Phone: [facility] 10-23-2024 17:52-0400 Respiratory rate 18 /min [employer] Work Phone: [facility] 10-23-2024 17:52-0400 SaO2% (BldA) [Mass fraction] 95 % [employer] Work Phone: [facility] 10-23-2024 17:52-0400 Systolic blood pressure 140 mm[Hg] [employer] Work Phone: [facility] 08-22-2024 17:57-0400 Body height 182.88 cm [employer] Work Phone: [facility] 08-22-2024 17:57-0400 Body mass index (BMI) [Ratio] 50.3 kg/m2 [employer]hr[employer]i [employer] Work Phone: [facility] 08-22-2024 17:57-0400 Body temperature 97.5 [degF] [employer] Work Phone: [facility] 08-22-2024 17:57-0400 Body weight 168.28 kg [employer] Work Phone: [facility] 08-22-2024 17:57-0400 Diastolic blood pressure 60 mm[Hg] [employer] Work Phone: [facility] 08-22-2024 17:57-0400 Heart rate 86 /min [employer] Work Phone: [facility] 08-22-2024 17:57-0400 Respiratory rate 18 /min [employer] Work Phone: [facility] 08-22-2024 17:57-0400 SaO2% (BldA) [Mass fraction] 96 % [employer] Work Phone: [facility] 08-22-2024 17:57-0400 Systolic blood pressure 120 mm[Hg] [employer] Work Phone: [facility] 07-27-2023 18:27-0500 Body height 182.88 cm [facility] 07-27-2023 18:27-0500 Body mass index (BMI) [Ratio] 49.5 kg/m2 [facility] 07-27-2023 18:27-0500 Body temperature 97.5 [degF] [facility] 07-27-2023 18:27-0500 Body weight 165.56 kg [facility] 07-27-2023 18:27-0500 Diastolic blood pressure 70 mm[Hg] [facility] 07-27-2023 18:27-0500 Heart rate 74 /min [facility] 07-27-2023 18:27-0500 Respiratory rate 18 /min [facility] 07-27-2023 18:27-0500 SaO2% (BldA) [Mass fraction] 95 % [facility] 07-27-2023 18:27-0500 Systolic blood pressure 140 mm[Hg] [facility] 09-06-2022 15:30-0400 Body height 182.88 cm [facility] 09-06-2022 15:30-0400 Body mass index (BMI) [Ratio] 46.7 kg/m2 [facility] 09-06-2022 15:30-0400 Body temperature 97 [degF] [facility] 09-06-2022 15:30-0400 Body weight 156.48 kg [facility] 09-06-2022 15:30-0400 Diastolic blood pressure 70 mm[Hg] [facility] 09-06-2022 15:30-0400 Heart rate 81 /min [facility] 09-06-2022 15:30-0400 Respiratory rate 18 /min [facility] 09-06-2022 15:30-0400 SaO2% (BldA) [Mass fraction] 96 % [facility] 09-06-2022 15:30-0400 Systolic blood pressure 140 mm[Hg] [facility] 08-18-2022 16:15-0400 Body mass index (BMI) [Ratio] 45.1 kg/m2 [facility] 08-18-2022 16:15-0400 Body temperature 96.8 [degF] [facility] 08-18-2022 16:15-0400 Body weight 151.04 kg [facility] 08-18-2022 16:15-0400 Diastolic blood pressure 70 mm[Hg] [facility] 08-18-2022 16:15-0400 Heart rate 83 /min [facility] 08-18-2022 16:15-0400 Respiratory rate 18 /min [facility] 08-18-2022 16:15-0400 SaO2% (BldA) [Mass fraction] 95 % [facility] 08-18-2022 16:15-0400 Systolic blood pressure 132 mm[Hg] [facility] 05-25-2022 17:33-0500 Body mass index (BMI) [Ratio] 45.3 kg/m2 [facility] 05-25-2022 17:33-0500 Body temperature 97.7 [degF] [facility] 05-25-2022 17:33-0500 Body weight 151.49 kg [facility] 05-25-2022 17:33-0500 Diastolic blood pressure 80 mm[Hg] [facility] 05-25-2022 17:33-0500 Heart rate 79 /min [facility] 05-25-2022 17:33-0500 Respiratory rate 18 /min [facility] 05-25-2022 17:33-0500 SaO2% (BldA) [Mass fraction] 95 % [facility] 05-25-2022 17:33-0500 Systolic blood pressure 130 mm[Hg] [facility] 12-23-2021 17:00-0400 Body height 182.88 cm [facility] Work Phone: 12-23-2021 17:00-0400 Body mass index (BMI) [Ratio] 45.1 kg/m2 [facility] Work Phone: 12-23-2021 17:00-0400 Body temperature 98.1 [degF] [facility] Work Phone: 12-23-2021 17:00-0400 Body weight 151.04 kg [facility] Work Phone: 12-23-2021 17:00-0400 Diastolic blood pressure 70 mm[Hg] [facility] Work Phone: 12-23-2021 17:00-0400 Heart rate 78 /min [facility] Work Phone: 12-23-2021 17:00-0400 Respiratory rate 18 /min [facility] Work Phone: 12-23-2021 17:00-0400 SaO2% (BldA) [Mass fraction] 96 % [facility] Work Phone: 12-23-2021 17:00-0400 Systolic blood pressure 132 mm[Hg] [facility] Work Phone: 11-07-2021 18:22-0400 Body mass index (BMI) [Ratio] 45.8 kg/m2 [facility] Work Phone: 11-07-2021 18:22-0400 Body temperature 97.7 [degF] [facility] Work Phone: 11-07-2021 18:22-0400 Body weight 153.31 kg [facility] Work Phone: 11-07-2021 18:22-0400 Diastolic blood pressure 70 mm[Hg] [facility] Work Phone: 11-07-2021 18:22-0400 Heart rate 106 /min [facility] Work Phone: 11-07-2021 18:22-0400 Respiratory rate 18 /min [facility] Work Phone: 11-07-2021 18:22-0400 SaO2% (BldA) [Mass fraction] 94 % [facility] Work Phone: 11-07-2021 18:22-0400 Systolic blood pressure 160 mm[Hg] [facility] Work Phone: 11-07-2021 18:22-0400 Body height 182.88 cm [facility] Work Phone: 11-07-2021 18:22-0400 Body mass index (BMI) [Ratio] 45.8 kg/m2 [facility] Work Phone: 11-07-2021 18:22-0400 Body temperature 97.7 [degF] [facility] Work Phone: 11-07-2021 18:22-0400 Body weight 153.31 kg [facility] Work Phone: 11-07-2021 18:22-0400 Diastolic blood pressure 70 mm[Hg] [facility] Work Phone: 11-07-2021 18:22-0400 Heart rate 106 /min [facility] Work Phone: 11-07-2021 18:22-0400 Respiratory rate 18 /min [facility] Work Phone: 11-07-2021 18:22-0400 SaO2% (BldA) [Mass fraction] 94 % [facility] Work Phone: 11-07-2021 18:22-0400 Systolic blood pressure 160 mm[Hg] [facility] Work Phone: 10-03-2021 15:45-0400 Body temperature 98.6 [degF] Scott Chatal [employer] Work Phone: [facility] 10-03-2021 15:45-0400 Body weight 152.63 kg Scott Chatal [employer] Work Phone: [facility] 10-03-2021 15:45-0400 Diastolic blood pressure 92 mm[Hg] Scott Chatal [employer] Work Phone: [facility] 10-03-2021 15:45-0400 Heart rate 83 /min Scott Chatal [employer] Work Phone: [facility] 10-03-2021 15:45-0400 Respiratory rate 18 /min Scott Chatal [employer] Work Phone: [facility] 10-03-2021 15:45-0400 SaO2% (BldA) [Mass fraction] 96 % Scott Tobarkimberly [employer] Work Phone: [facility] 10-03-2021 15:45-0400 Systolic blood pressure 134 mm[Hg] Scott Tobarkimberly [employer] Work Phone: [facility] 07-28-2021 18:10-0500 Body mass index (BMI) [Ratio] 46.2 kg/m2 [facility] Work Phone: 07-28-2021 18:10-0500 Body temperature 97.7 [degF] [facility] Work Phone: 07-28-2021 18:10-0500 Body weight 154.67 kg [facility] Work Phone: 07-28-2021 18:10-0500 Diastolic blood pressure 60 mm[Hg] [facility] Work Phone: 07-28-2021 18:10-0500 Heart rate 76 /min [facility] Work Phone: 07-28-2021 18:10-0500 Respiratory rate 18 /min [facility] Work Phone: 07-28-2021 18:10-0500 SaO2% (BldA) [Mass fraction] 95 % [facility] Work Phone: 07-28-2021 18:10-0500 Systolic blood pressure 128 mm[Hg] [facility] Work Phone: 12-24-2020 09:03-0400 Body mass index (BMI) [Ratio] 45.71 kg/m2 [employer] Work Phone: [facility] Work Phone: 12-24-2020 09:03-0400 Body surface area Derived from formula 2.78 m2 [employer] Work Phone: [facility] Work Phone: 12-24-2020 09:03-0400 Body temperature 98.6 [degF] [employer] Work Phone: [employer] [facility] Work Phone: 12-24-2020 09:03-0400 Body weight 161.48 kg [employer] Work Phone: [employer] [facility] Work Phone: 12-24-2020 09:03-0400 Diastolic blood pressure 71 mm[Hg] [employer] Work Phone: [employer] [facility] Work Phone: 12-24-2020 09:03-0400 Heart rate 65 /min [employer] Work Phone: [employer] [facility] Work Phone: 12-24-2020 09:03-0400 Respiratory rate 18 /min [employer] Work Phone: [employer] [facility] Work Phone: 12-24-2020 09:03-0400 SaO2% (BldA) [Mass fraction] 98 % [employer] Work Phone: [employer] [facility] Work Phone: 12-24-2020 09:03-0400 Systolic blood pressure 122 mm[Hg] Jenny Live Work Phone: [employer] [facility] Work Phone: 12-24-2020 09:03-0400 4 1 Jenny Live Work Phone: [employer] [facility] Work Phone: Comment on above: Ceferino 06-13-2019 16:43-0500 BMI (Body Mass Index) 49.05 kg/m2 Rosie Guerrero [employer] [facility] Work Phone: 06-13-2019 16:43-0500 Body Temperature 98.6 [degF] Rosie Izquierdomichelegonzalotay [facility] Work Phone: Comment on above: Method: Oral 06-13-2019 16:43-0500 Body weight 173.28 kg Rosie Izquierdomichelegonzalotay [facility] Work Phone: 06-13-2019 16:43-0500 BP Diastolic 84 mm[Hg] Rosie Izquierdomichelegonzalotay [facility] Work Phone: Comment on above: Location: LUE; Position: Sitting 06-13-2019 16:43-0500 BP Systolic 144 mm[Hg] Rosie Izquierdoconradbrittnytay [facility] Work Phone: Comment on above: Location: LUE; Position: Sitting 06-13-2019 16:43-0500 BSA (Body Surface Area) 2.86 m2 Rosie Izquierdojered [facility] Work Phone: 06-13-2019 16:43-0500 Pulse (Heart Rate) 108 /min Rosie Izquierdoconradbrittnytay [facility] Work Phone: 12-13-2018 16:58-0400 BMI (Body Mass Index) 47.51 kg/m2 Rosie Izquierdojered [facility] Work Phone: 12-13-2018 16:58-0400 Body Temperature 98.2 [degF] Rosie Izquierdomichelegonzalotay [facility] Work Phone: Comment on above: Method: Oral 12-13-2018 16:58-0400 Body weight 167.83 kg Rosie Izquierdomichelegonzalotay [facility] Work Phone: 12-13-2018 16:58-0400 BP Diastolic 82 mm[Hg] Rosieshanda Guerrero [facility] Work Phone: Comment on above: Location: LUE; Position: Sitting 12-13-2018 16:58-0400 BP Systolic 124 mm[Hg] Rosie Izquierdoconradcyril [facility] Work Phone: Comment on above: Location: LUE; Position: Sitting 12-13-2018 16:58-0400 BSA (Body Surface Area) 2.82 m2 Rosie Izquierdojered [facility] Work Phone: 12-13-2018 16:58-0400 Pulse (Heart Rate) 9 /min Rosie Izquierdojered [facility] Work Phone: 12-13-2018 16:58-0400 Pulse Oximetry 93 % Rosie Izquierdojered [facility] Work Phone: Encounters Encounter Date Encounter Type Care Provider Facility Start: 04-10-2025 End: 04-10-2025 ambulatory Jenny Live Facility:[facility] Start: 03-26-2025 End: 03-26-2025 ambulatory JENNYShruthi LIVE Facility:[id number] Start: 03-20-2025 Dr. Herbert isaac [facility] Work Phone: Start: 03-19-2025 Dr. Herbert isaac [facility] Work Phone: Start: 03-19-2025 Isaiah Galloway DO [facility] Start: 03-19-2025 Dr. Juvenal Cedillo MD -[facility] Work Phone: Start: 03-18-2025 ambulatory Jenny Live Facilit y:[facility] Start: 03-18-2025 End: 03-20-2025 Evaluation and management of inpatient Jenny Live [facility] Work Phone: -Progressive Care Unit Start: 03-18-2025 End: 03-20-2025 Dr. Herbert Mane DO -[facility] Unit Work Phone: Start: 03-17-2025 Dr. Herbert isaac DO [facility] Work Phone: Start: 03-17-2025 Dr. Juvenal Cedillo MD -[facility] Start: 03-16-2025 Dr. Juvenal Cedillo MD -[facility] Start: 03-16-2025 ambulatory Kindra Bach Facility:[facility] Start: 03-16-2025 End: 03-17-2025 Evaluation and management of inpatient Jenny Live [facility] Work Phone: -Progressive Care Unit Start: 03-16-2025 End: 03-17-2025 Dr. Herbert Mane DO -[facility] Unit Work Phone: Start: 03-15-2025 End: 03-16-2025 Emergency department patient visit JENNY LIVE Facility:[facility] Start: 03-11-2025 End: 03-11-2025 Admission to same day surgery center Dr. Edmundo Wiggins MD -[facility] Start: 03-11-2025 End: 03-11-2025 Dr. Edmundo Wiggins MD -[facility] Start: 03-11-2025 End: 03-11-2025 ambulatory Jenny Live [facility] Work Phone: -[facility] Start: 03-10-2025 End: 03-10-2025 Emergency department patient visit JENNY LIVE Facility:[facility] Start: 02-27-2025 End: 02-27-2025 Patient encounter procedure [employer] Office [facility] - MH [id number] Start: 02-27-2025 End: 02-27-2025 ambulatory JENNY LIVE Facility:[facility] Start: 02-24-2025 End: 02-24-2025 Telephone encounter To Be Assigned [facility] Comment on above: need to be seen for large kidney stone Start: 02-24-2025 End: 02-24-2025 ambulatory DANI ROPER Not Available Start: 02-23-2025 End: 03-26-2025 PreReg DANI ROPER MD [facility] Start: 02-23-2025 End: 02-23-2025 ambulatory DANI ROPER Not Available Start: 02-19-2025 End: 02-22-2025 Evaluation and management of inpatient LULA MONTOYA DO [facility] Start: 02-18-2025 End: 02-19-2025 Emergency department patient visit JENNY LIVE Facility:[facility] Start: 02-16-2025 End: 02-16-2025 Emergency department patient visit JANETTE COLLINS DO [facility] Start: 02-07-2025 End: 02-07-2025 Emergency department patient visit JENNY LIVE Facility:[facility] Start: 11-17-2024 End: 11-17-2024 Emergency department patient visit JENNY LIVE Facility:[facility] Start: 10-24-2024 End: 10-24-2024 Patient encounter procedure Jenny Live [facility] [facility] -Laboratory Specimen Work Phone: Start: 10-24-2024 End: 10-24-2024 ambulatory Jenny Live [facility] [facility] Work Phone: [facility] Work Phone: Start: 08-22-2024 End: 08-22-2024 ambulatory Jenny Live [employer] Work Phone: [facility] Work Phone: Start: 08-22-2024 End: 08-22-2024 Patient encounter procedure Jenny Live [facility] -Laboratory, Specimen Work Phone: Start: 08-22-2024 End: 08-22-2024 ambulatory Jenny Live Facility:[facility] Start: 07-27-2023 End: 07-27-2023 ambulatory [facility] Work Phone: Start: 07-27-2023 End: 07-27-2023 [facility] Start: 07-18-2023 ambulatory Britta Simeon Cl inical Communication Start: 07-18-2023 Patient encounter procedure Britta Simeon Clinical Communication Start: 02-01-2023 Orders Only Madhuri Vemaria e ramirez PA-C Work Phone: [facility] [place] Comment on above: Pain (Primary Dx) Start: 09-06-2022 End: 09-06-2022 ambulatory [facility] Work Phone: Start: 09-06-2022 End: 09-06-2022 Patient encounter procedure [facility]-Laboratory, Specimen Start: 02-08-2022 ambulatory Jaymie Leigh MA [facility] Comment on above: Population Health Na vigation Outreach (hcc) Start: 12-24-2021 End: 12-24-2021 Patient encounter procedure [facility]-Laboratory, Specimen Start: 11-07-2021 End: 11-07-2021 [facility] Start: 10-03-[address] Scan Comment on above: Radiology CT Radio Gen RMP Start: 10-03-2021 End: 10-03-2021 Patient encounter procedure Scott Rodriguez APRN.[employer] Work Phone: [facility] Comment on above: Dizziness (Primary D x); Folliculitis Start: 09-15-2021 Chart abstracting Unknown Neuro logy Start: 06-21-2021 AUDIT Jenny geller Work Phone: [employer] [facility] Work Phone: Start: 12-26-2020 Chart Update Jenny geller Work Phone: [employer] [facility] Work Phone: Start: 12-24-2020 FUV, Provider: Rosie Guerrero, Status: Pen, Time: 9:00 AM Jenny Live Work Phone: [employer] [facility] Work Phone: Start: 12-24-2020 Office outpatient visit 25 minutes Jenny Clarke Live Work Phone: [employer] [facility] Work Phone: Start: 12-23-2020 AUDIT Jenny Rae duyen Work Phone: [employer] [facility] Work Phone: Start: 06-13-2019 Patient encounter procedure Rosie Guerrero [employer] [facility] Work Phone: Start: 01-24-2019 End: 01-24-2019 Subsequent hospital visit by physician Janette Desri Work Phone: [facility] Comment on above: Arrived Start: 01-23-2019 End: 01-23-2019 Subsequent hospital visit by physician Janette Desir Work Phone: [facility] Comment on above: Arrived Start: 12-13-2018 Patient encounter procedure Rosie Guerrero [employer] Work Phone: Start: 06-07-2018 Patient encounter procedure Rosie Guerrero [employer] [facility] Work Phone: Start: 10-12-2017 Patient encounter procedure Rosie Guerrero -[employer] [facility] Work Phone: Start: 06-18-2017 Patient encounter procedure Rosie Guerrero -[employer] [facility] Work Phone: Start: 05-26-2017 Patient encounter procedure Rosie Guerrero [employer] [facility] Work Phone: Procedures Date Procedure Procedure Detail Performing Clinician Start: 03-20-2025 Mean corpuscular hemoglobin concentration determination Jenny Live [facility] [facility] Work Phone: Start: 03-20-2025 Neutrophil count Jenny Live [employer] [facility] Work Phone: Start: 03-20-2025 Nucleated red blood cell count procedure Jenny Live [facility] [facility] Work Phone: Start: 03-20-2025 Platelet mean volume determination Jenny Live [employer] [facility] Work Phone: Start: 03-19-2025 Esophagogastroduodenoscopy Jenny Yu on [employer] Work Phone: Start: 03-19-2025 Calculation of international normalized ratio Jenny Live [employer] [facility] Work Phone: Start: 03-19-2025 Estimated creatinine clearance Jenny davilaon [employer] [facility] Work Phone: Start: 03-18-2025 Urine microscopy: red cells Jenny geller [employer] [facility] Work Phone: Start: 03-18-2025 Urnls dip stick/tablet reagent auto microscopy Jenny Live [facility] [facility] Work Phone: Start: 03-18-2025 Radiologic exam chest 2 views Jenny Li rdson [facility] [facility] Work Phone: Start: 03-18-2025 D-dimer assay, quantitative Jenny geller [facility] [facility] Work Phone: Start: 03-18-2025 Measurement of occult blood in stool specimen using immunoassay Jenny Live [facility] [facility] Work Phone: Start: 03-18-2025 Urine culture Jenny Live [facility] [facility] Work Phone: Start: 03-16-2025 Urine microscopy: red cells Jenny geller [employer] [facility] Work Phone: Start: 03-16-2025 Urnls dip stick/tablet reagent auto microscopy Jenny Live [employer] [facility] Work Phone: Start: 03-16-2025 Plain chest X-ray Jenny Live [employer] Work Phone: Start: 03-16-2025 Estimated creatinine clearance Jenny davilaon [employer] [facility] Work Phone: Start: 03-16-2025 Mean corpuscular hemoglobin concentration determination Jenny Live [employer] Work Phone: Start: 03-16-2025 Neutrophil count Jenny Live [employer] Work Phone: Start: 03-16-2025 Nucleated red blood cell count procedure Jenny Live [employer] Work Phone: Start: 03-16-2025 Platelet mean volume determination Jenny Live [employer] Work Phone: Start: 03-16-2025 Serum inorganic phosphate measurement Jenny Live [employer] [facility] Work Phone: Start: 03-16-2025 Total cholesterol:HDL ratio measurement Jenny Live [employer] [facility] Work Phone: Start: 03-16-2025 Triglycerides measurement Jenny Marinelli n [facility] [facility] Work Phone: Start: 03-11-2025 Cystoscopy and retrograde pyelography Jenny Live [employer] Work Phone: Start: 03-11-2025 Fluoroscopic guidance Jenny Live [employer] Work Phone: Start: 02-21-2025 Collection venous blood venipuncture LULA SAGHAFI DO Start: 02-20-2025 Collection venous blood venipuncture LULA SAGHAFI DO Start: 02-19-2025 Collection venous blood venipuncture LULA SAGHAFI DO Start: 02-19-2025 Collection venous blood venipuncture LULA SAGHAFI DO Start: 01-24-2019 Mri any jt upper extremity w/o contrast matrl Janette Desir Work Phone: Start: 09-05-2016 Colonoscopy To Assigned Arthroscopy of knee Rosie lawton Cholecystectomy Rosie nam gallbladder removed LULA SAGHAFI DO History of Partial Colectomy Rosie Guerrero pin placed in right foot NAYE ROSH SAGHAFI DO sigmoid colectomy LULA BARAKAT DO Plan of Treatment Date Care Activity Detail Author Start: 12-05-2027 PROSTATE CANCER SCREENING DISCUSSION PROSTATE CANCER SCREENING DISCUSSION [facility] Start: 09-05-2026 [facility] Start: 02-18-2026 Creatinine measurement Basic Metabolic Panel [facility] Start: 03-20-2025 [facility] Work Phone: Start: 03-20-2025 Patient discharge [facility] Start: 03-20-2025 End: 03-20-2025 [facility] Start: 03-19-2025 Esophagogastroduodenoscopy [facility] Start: 03-19-2025 Application of intermittent pneumatic compression device [facility] Start: 03-19-2025 Care regimes management [facility] Start: 03-19-2025 Notification of physician [facility] Start: 03-19-2025 End: 03-19-2025 [facility] Start: 03-18-2025 Following clinical pathway protocol [facility] Start: 03-18-2025 Transfusion of blood product [facility] Start: 03-18-2025 Assessment of risk of venous thromboembolism [facility] Start: 03-18-2025 Insertion of catheter into peripheral vein [facility] Start: 03-18-2025 Measuring intake and output [facility] Start: 03-18-2025 Providing care according to standard [facility] Start: 03-18-2025 Provision of activity privileges [facility] Start: 03-18-2025 Referral for physical therapy [facility] Start: 03-18-2025 Referral to gastroenterology service [facility] Start: 03-18-2025 Referral to occupational therapist [facility] Start: 03-18-2025 Admission procedure [facility] Start: 03-18-2025 Patient referral to dietitian [facility] Start: 03-17-2025 Patient discharge [facility] Start: 03-17-2025 [facility] Start: 03-16-2025 Catheterization of vein [facility] Start: 03-16-2025 Oxygen therapy [facility] Start: 03-16-2025 Care regimes management [facility] Start: 03-16-2025 Notification of physician [facility] Start: 03-16-2025 Provision of activity privileges [facility] Start: 03-16-2025 Referral to service [facility] Start: 03-16-2025 Admission procedure [facility] Start: 03-16-2025 Assessment of risk of venous thromboembolism [facility] Start: 03-16-2025 Insertion of catheter into peripheral vein [facility] Start: 03-16-2025 Measuring intake and output [facility] Start: 03-16-2025 Providing care according to standard [facility] Start: 03-16-2025 Referral for physical therapy [facility] Start: 03-16-2025 Referral to cabin agent [facility] Start: 03-16-2025 End: 03-16-2025 [facility] Start: 03-16-2025 Chart related administrative procedure [facility] Start: 03-11-2025 Anes lithotrp xtrcorp shock wave w/o water bath [facility] Start: 03-11-2025 Cystoscopy and retrograde pyelography [facility] Start: 03-11-2025 Ambulation without limitation [facility] Start: 03-11-2025 Medical regimen orders management [facility] Start: 03-11-2025 Medication education [facility] Start: 03-11-2025 Patient discharge [facility] Start: 03-11-2025 Taking patient vital signs [facility] Start: 03-11-2025 [facility] Start: 03-03-2025 End: 03-03-2025 Patient encounter procedure 03/03/2025 9:20 AM EDT Office Visit [facility] [address] [place] [address] Kishor Emmanuel MD [address] [place] [id number] [facility] Start: 02-02-2025 COVID-19 Vaccine ( season) COVID-19 Vaccine ( season) [facility] Start: 02-02-2025 Influenza vaccination Influenza Vaccine (#1) [facility] Start: 12-05-2023 Hepatitis B surface antibody level LDL CHOLESTEROL [facility] Start: 12-05-2023 Lipid panel Lipid Profile [facility] Start: 06-06-2023 Hemoglobin A1c measurement Hemoglobin A1C [facility] Start: 06-06-2023 Hemoglobin A1c/Hemoglobin.total in Blood HBA1C [facility] Start: 02-02-2023 Influenza vaccination INFLUENZA (#1) [facility] Start: 06-04-2022 DEPRESSION ASSESSMENT DEPRESSION ASSESSMENT [facility] Start: 02-02-2022 Influenza vaccination [facility] Start: 06-24-2021 FUV, Provider: Rosie Guerrero, Status: Pen, Time: 1:00 PM FUV, Provider: Rosie Guerrero, Status: Pen, Time: 1:00 PM [facility] Work Phone: Start: 2021 PROSTATE CANCER SCREENING DISCUSSION PROSTATE CANCER SCREENING DISCUSSION [facility] Start: 11-09-2020 Hemoglobin A1c/Hemoglobin.total in Blood HBA1C [facility] Start: 02-02-2019 Influenza vaccination Flu vaccine (#1) [place] Start: 01-24-2019 End: 01-24-2019 Appointment 01/24/2019 Appointment Janette Anaya, [employer] [address], [place] [id number] [facility] Start: 2016 Colon cancer screen colonoscopy Colon cancer screen colonoscopy [place], [place] Start: 2016 Shingles (RZV) Vaccine (1 of 2) Shingles (RZV) Vaccine (1 of 2) [facility] Start: 2016 Shingles Vaccine (1 of 2) Shingles Vaccine (1 of 2) [place] Start: 2016 SHINGRIX VACCINE (1 of 2) SHINGRIX VACCINE (1 of 2) [facility] Start: 06-05-2016 Hepatitis C antibody, confirmatory test DILATED RETINAL EXAM [facility] Start: 12-13-2014 Hepatitis B surface antibody level LDL CHOLESTEROL [facility] Start: 02-11-2014 3 comp foot exam completed DIABETIC FOOT EXAM [facility] Start: 08-17-2013 Hepatitis B screening URINE ALBUMIN:CREATININE RATIO [facility] Start: 2011 COLOGUARD (FIT-DNA) COLOGUARD (FIT-DNA) [facility] Start: 2011 Colonoscopy COLONOSCOPY [facility] Start: 2011 COLORECTAL CANCER SCREENING COLORECTAL CANCER SCREENING [facility] Start: [address] COLONOGRAPHY [facility] Start: 2011 FECAL OCCULT BLOOD FECAL OCCULT BLOOD [facility] Start: 2011 Screening for malignant neoplasm of colon [facility] Start: 2011 SIGMOIDOSCOPY SIGMOIDOSCOPY [facility] Start: 2006 Lipid screen Lipid screen [place], [place] Start: 1985 DTaP/Tdap/Td vaccine (1 - Tdap) DTaP/Tdap/Td vaccine (1 - Tdap) [place] Start: 1985 Hepatitis A (HAV) Vaccine (optional start 19+ years) Hepatitis A (HAV) Vaccine (optional start 19+ years) [facility] Start: 1985 Hepatitis B vaccination Hepatitis B (HBV) Vaccine (1 of 3 - 19+ 3-dose series) [facility] Start: 1985 Pneumococcal vaccination Pneumococcal Vaccine(s) (50+ yrs) (1 of 2 - PCV) [facility] Start: 1985 Tetanus vaccination Tetanus (Td or Tdap) Booster [facility] Start: 1985 Urine microalbumin profile DTAP,TDAP,TD (1 - Tdap) [facility] Start: 1984 ANNUAL PCP TEAM CHRONIC DISEASE VISIT ANNUAL PCP TEAM CHRONIC DISEASE VISIT [facility] Start: 1984 BP CONTROLLED (<130/80) BP CONTROLLED (<130/80) [facility] Start: 1984 HEPATITIS C SCREENING HEPATITIS C SCREENING [facility] Start: 1984 Hepatitis C screening Hepatitis C Antibody [facility] Start: 1984 HIV SCREENING HIV SCREENING [facility] Start: 1984 Tdap Booster Tdap Booster [facility] Start: 1982 ONE PNEUMOVAX PRIOR TO AGE 65 ONE PNEUMOVAX PRIOR TO AGE 65 [facility] Start: 1981 HIV screen HIV screen [place], [place] Start: 1981 HIV screening HIV Test [facility] Start: 1978 Adult depression screening assessment DEPRESSION SCREENING [facility] Start: 1972 PNEUMOCOCCAL (1 - PCV) PNEUMOCOCCAL (1 - PCV) [facility] Start: 1971 COVID-19 VACCINE (1) COVID-19 VACCINE (1) [facility] Start: 1966 COVID-19 VACCINE (#1) COVID-19 VACCINE (#1) [facility] Start: 1966 Glaucoma screening Eye Exam [facility] Start: 1966 Urine screening for protein Urine Protein (microalbumin) [facility] Start: 1966 Diabetic foot examination Foot Exam [facility] Start: 1966 HEPATITIS B (1 of 3 - 3-dose series) HEPATITIS B (1 of 3 - 3-dose series) [facility] End: 03-02-2024 XR HAND GENERAL 3V PA/LAT/OBL LEFT XR HAND GENERAL 3V PA/LAT/OBL LEFT Radiology Routine Pain 1 Occurrences starting 02/01/2023 until 03/02/2024 [facility] Work Phone: Comment on above: 1 Occurrences starting 02/01/2023 until 03/02/2024 End: 03-02-2024 XR HAND GENERAL 3V PA/LAT/OBL RIGHT XR HAND GENERAL 3V PA/LAT/OBL RIGHT Radiology Routine Pain 1 Occurrences starting 02/01/2023 until 03/02/2024 [facility] Work Phone: Comment on above: 1 Occurrences starting 02/01/2023 until 03/02/2024 [facility] c [facility] c [facility] Immunizations Immunization Date Immunization Notes Care Provider Calros palacios 02-20-2025 influenza, seasonal, injectable, preservative free; Translations: [FluLaval PF Prefilled Syringe ] LULA MONTOYA DO [facility] 12-04-2022 Hemoglobin A1C To Assigned [facility] 06-05-2019 influenza, injectabl e, quadrivalent, preservative free Jenny Live Work Phone: [facility] Work Phone: 05-04-2019 influenza, injectabl e, quadrivalent, preservative free Rosie Guerrero [facility] Work Phone: Comment on above: Series: 04-07-2018 influenza, injectabl e, quadrivalent, preservative free Rosie Guerrero [facility] Work Phone: Comment on above: Series: 10-24-2013 measles, mumps and rubella virus vaccine Jenny Live Work Phone: [facility] Payers Date Payer Category Payer Medicare [id number] 2025 [facility] EXCHANGE [id number] 2024 Self-pay [id number] [id number] 2021 Unknown JOHN SHELBYX / JOHN [id number] 2021-Present [phone] [address] [address] [place] [address] EPO [id number] 2008 Unknown 2008 Unknown [id number] 1966 Unknown [id number] 2.840.1.607713.3.579.2. 159 1966 Unknown [id number] 2.840.1.017739.3.579.2. 159 1966 Unknown [id number] 2.840.1.582258.3.579.2. 159 1966 Unknown [id number] 2.840.1.335254.3.579.2. 159 1966 Unknown [id number] 2.840.1.430848.3.579.2. 159 Medicare Private Health Insurance [facility] [id number] Unknown [id number] Unknown [id number] Unknown [id number] Unknown [id number] Unknown [id number] 2.840.1.031173.3.579.2. 462 Unknown [id number] 2.840.1.604862.3.579.2. 462 Unknown [id number] 2.840.1.929216.3.579.2. 462 Unknown [id number] 2.840.1.092937.3.579.2. 462 Unknown [id number] 2.840.1.045973.3.579.2. 462 Unknown [id number] 2.840.1.105176.3.579.2. 462 Unknown [id number] 2.840.1.821241.3.579.2. 462 Unknown [id number] 2.840.1.387688.3.579.2. 462 Unknown [id number] 2.840.1.376379.3.579.2. 462 Unknown [id number] 2.16.840.1.628157.3.579.2. 462 Unknown [id number] 2.16.840.1.305571.3.579.2. 462 Unknown [id number] 2.16.840.1.863630.3.579.2. 462 Unknown [id number] 2.16.840.1.130686.3.579.2. 462 Unknown [id number] 2.16.840.1.937508.3.579.2. 462 Unknown [id number] 2.16.840.1.919151.3.579.2. 462 Social History Date Type Detail Facility Start: 1965 Sex Assigned At Not on file [place] Start: 10-03-2021 End: 12-15-2022 Never used tobacco Never used tobacco [facility] Start: 07-27-2011 End: 03-18-2025 Tobacco smoking status NHIS Never smoked tobacco [facility] Start: 04-07-2021 End: 10-03-2021 Alcohol intake Current non-drinker of alcohol (finding) [facility] Start: 1965 Sex Assigned At Male [facility] Start: 09-23-2021 End: 10-03-2021 Exposure to SARS-CoV-2 (event) Not sure [facility] Start: 11-04-2020 End: 11-04-2020 Tobacco smoking status GAIS Unknown if ever smoked [facility] Start: 07-27-2011 Tobacco use and exposure Smokeless tobacco non-user [facility] Start: 10-03-2021 End: 12-15-2022 Tobacco use panel [facility] PHQ2 Score 0 [facility] Start: 10-15-2019 Gender identity Identifies as male gender (finding) [facility] Start: 10-15-2019 Sexual orientation Heterosexual (fin ding) [facility] Start: 06-04-2009 End: 08-28-2024 Sex Male (finding) [facility] Tobacco smoking status [facility] NEGATED: Highlighted row - - [facility] Work Phone: Medical Equipment Procedure Code Equipment Code Equipment Origin al Text Equipment Identifier Dates Cystoscopy, with retrograde pyelogram, ureteroscopy, laser procedure, and stent [facility] [id number]) [id number] FDA Start: 03-11-2025 Screw 5.5mm Partial Thread Titanium 55mm Bone Low Profile Head Self Tap - [id number] Start: 10-22-2019 Insulin Syringe-Needle U-100 (Bd Insulin Syringe) 1 mL 29 gauge x 1/2" syringe Start: 08-19-2020 End: 04-22-2021 Insulin Syringe-Needle U-100 (Bd Insulin Syringe) 1 mL 29 gauge x 1/2" syringe Start: 08-19-2020 End: 04-22-2021 Insulin Syringe-Needle U-100 (Bd Insulin Syringe) 1 mL 29 gauge x 1/2" syringe Start: 08-19-2020 End: 04-22-2021 Insulin Syringe-Needle U-100 (Bd Insulin Syringe) 1 mL 29 gauge x 1/2" syringe Start: 08-19-2020 End: 04-22-2021 Insulin Syringe-Needle U-100 (Bd Insulin Syringe) 1 mL 29 gauge x 1/2" syringe Start: 08-19-2020 End: 04-22-2021 Insulin Syringe-Needle U-100 (Bd Insulin Syringe) 1 mL 29 gauge x 1/2" syringe Start: 08-19-2020 End: 04-22-2021 Insulin Syringe-Needle U-100 (Bd Insulin Syringe) 1 mL 29 gauge x 1/2" syringe Start: 08-19-2020 End: 04-22-2021 Goals Date Patient Goal Desired Activity /State Functional Status Date Assessment Result Facility 03-20-2025 Functional status Chair [facility] Work Phone: 03-17-2025 Functional status Ambulates [facility] Work Phone: NEGATED: Highlighted row Functional performance Functional status health issues are not documented Disease [facility] Work Phone: Mental Status Date Assessment Result Facility 03-20-2025 Cognitive function Voice/Name [facility] Work Phone: 03-17-2025 Cognitive function Voice/Name [facility] Work Phone: 03-11-2025 Cognitive function Drowsy [facility] Work Phone: 03-11-2025 Cognitive function Voice/Name [facility] Work Phone: NEGATED: Highlighted row Cognitive function [Interpretation] Cognitive status health issues are not documented [facility] Work Phone: Clinical Notes 10-08-2015 to 03-20-2025 Note Date & Type Note Facility 03-20-2025 Discharge summary Note Date/Time March 20, 2025 1:42pm [facility] Medical Records Department [address] [place] [address] Instructions for Home/Discharge Instructions 03/20/25 1307 MR#: [id number] Acct: [id number] Name: JAME WALLACE Rep #:[id number] : 1965 59 From: Herbert Mane DO [...] if applicable. Discharge Plan Admission Admit Date/Time: 03/18/25 22:10 Primary Reason for Your Visit: Anemia, gastric ulcer Attending Provider: Herbert Mane Primary Care Provider: Jenny Live NP Consulting Providers: Andrzej Fagan; Isaiah Galloway; Анна Weinstein; Carlyn Brown; Damari Kincaid; Nuzhat Cutler; Kendall Russ Instructions Additional Instructions / Restrictions: You may take Tylenol with your tramadol for pain, do not take any Aleve, ibuprofen, Celebrex, or Toradol for pain Discharge Orders/Prescriptions Prescriptions: New sucralfate 1 gram Tablet 1 g PO TID Qty: 90 0RF pantoprazole [Protonix] 40 mg tablet,delayed release (DR/EC) 40 mg PO BID Qty: 60 0RF Continued (DME) prodigy Qty: 1 Dose Instruction: As directed Rx Instructions: As directed fluticasone propionate [Cutivate] 0.05 % cream 1 applic TOPICAL QD-BID PRN (Reason: allergic reaction) Qty: 60 12RF albuterol sulfate [Ventolin HFA] 90 mcg/actuation HFA aerosol inhaler 2 puff inhalation Q4H PRN (Reason: sob) Qty: 6.7 3RF bupropion HCl 100 mg tablet sustained-release 12 hr 100 mg PO BID Qty: 180 3RF gabapentin [...] 45 mg PO DAILY Qty: 90 3RF tramadol 50 mg tablet 50 mg PO TID Qty: 90 5RF atorvastatin 40 mg tablet 40 mg PO QHS Qty: 90 3RF magnesium oxide 250 mg magnesium tablet 250 mg PO DAILY ondansetron 4 mg tablet,disintegrating 4 mg PO Q8H PRN PRN (Reason: nausea) multivitamin Tablet 1 tab PO DAILY furosemide 40 mg tablet 40 mg PO .qd tamsulosin 0.4 mg capsule 0.4 mg PO DAILY ammonium lactate 12 % cream 1 applic TOPICAL PRN duloxetine 60 mg capsule,delayed release(DR/EC) 60 mg PO QHS oxycodone 5 mg tablet 5 mg PO Q6H PRN (Reason: pain) 7 Days Qty: 20 0RF levothyroxine [Euthyrox] 75 mcg tablet 75 mcg PO QDAY Qty: 90 3RF Changed spironolactone 25 mg Tablet 12.5 mg PO DAILY Qty: 30 0RF Held Eliquis 5 mg tablet 5 mg PO BID Hold Instructions: Resume on 04/03/25. Hold your Eliquis for 2 weeks, then resume it at 5 mg twice a day Discontinued celecoxib 200 mg capsule 200 mg PO BID Qty: 180 3RF ketorolac 10 mg tablet 10 mg PO 4X/DAY PRN PRN (Reason: moderate pain) Referrals / Follow Up: Jenny Live NP, NP-C [Primary Care Provider, Family Practice] - In 1 Week Referral Note: Have your family physician repeat your CBC next week Janette Washington PA [Med Staff - [facility] Prof, Cardiology] - 04/10/25 9:30 am Disposition Disposition (needs filled in before D/C Order can be placed): Home, Self Care 03/20/25 1342<Electronically signed by Herbert Mane DO>Herbert Mane DO CC: DAVID Live; DAVID Weinstein; DAVID Brown; Dr. Nuzhat Cutler MD; Dr. Kendall Russ MD; Dr. Andrzej Fagan MD; NICOLLE Orellana; Isaiah Galloway DO ~ Signed [facility] Work Phone: 1(823) 525-591610-17-2025 Procedure [facility] 03-20-2025 Procedure [facility]10-17-2025 Procedure note [facility]10-17-2025 Procedure [facility] 03-20-2025 Hospital Discharge instructionsAdditional Instructions You may take Tylenol with your tramadol for pain, do not take any Aleve, ibuprofen, Celebrex, or Toradol for pain Date of Discharge: 03/20/25[facility] Work Phone: 1(157) 934-415210-17-2025 [facility] Medical Records Department [address] [place] [address] Discharge Summary 03/20/25 1342 MR#: [id number] Acct: [id number] Name: SHEKHARTAMELAJAME Rep #: [id number] : 1965 59 From: Herbert Mane DO PCP: DAVID Marina Status:DIS IN Location: [place] [address]1 Providers Date of Admission: 03/18/25 Date of Discharge: 03/20/25 Primary Care Physician: DAVID Marina Consultations 03/18/25 23:21 Consult: Gastroenterology Routine Consulting Provider: [facility] Reason for Consult: acute GI bleed EMERGENT Consult: No MD Notified: Yes Date Notified: 03/18/25 Time Notified: 23:03 Method of Notification: ED Physician Initiated Reason For Visit: SYNCOPE, GI BLEED Diagnosis Discharge Diagnosis (1) Orthostatic hypotension: Status: Acute Code(s): I95.1 - Orthostatic hypotension Plan 1. Orthostatic hypotension secondary to acute anemia from upper GI bleed (gastric ulcers)-patient's hemoglobin will be rechecked tomorrow morning, continue Protonix and Carafate #2 acute anemia secondary to acute upper GI bleed-CBC will be rechecked tomorrow #3 paroxysmal [id number] will continue metoprolol, he is off Eliquis #4 gastric ulcers secondary to use of nonsteroidal anti-inflammatory agents- patient has been cautioned to remain off these medications #5 bacteriuria-patient is receiving IV Rocephin, await urine culture results #6 hypothyroidism-patient is on Synthroid #7 chronic diastolic congestive heart failure-patient is stable at this time Total clinical time spent by myself addressing the patient's medical issues, reviewing all of his data, and collaborating with the patient's care team: 35 minutes Medications at Discharge Home Medications prodigy #1 ea 03/02/18 fluticasone propionate 0.05 % topical cream (Cutivate) 1 applic topical QD-BID PRN allergic reaction #60 grams 11/05/20 albuterol sulfate 90 mcg/actuation aerosol inhaler (Ventolin HFA) 2 puff inhalation Q4H PRN sob #6.7 grams 08/22/24 bupropion HCl 100 mg tablet,12 hr sustained-release 100 mg PO BID #180 tabs 08/22/24 gabapentin 400 mg capsule 400 mg PO TID 90 days #270 caps 08/22/24 glimepiride 4 mg tablet 4 mg PO QAM #90 tabs 08/22/24 metformin 850 mg tablet 850 mg PO BID #180 tabs 08/22/24 metoprolol tartrate 37.5 mg tablet 37.5 mg PO BID #180 tabs 08/22/24 mirtazapine 15 mg tablet 7.5 mg (1/2 x 15 mg) PO QHS PRN sleep 90 days #90 tabs 08/22/24 pioglitazone 45 mg tablet 45 mg PO DAILY #90 tabs 08/22/24 tramadol 50 mg tablet 50 mg PO TID neuropathic pain #90 tabs 08/22/24 levothyroxine 75 mcg tablet (Euthyrox) 75 mcg PO QDAY #90 tabs 11/03/24 atorvastatin 40 mg tablet 40 mg PO QHS #90 tabs 11/27/24 ammonium lactate 12 % topical cream 1 applic topical PRN CRACKED HANDS 03/06/25 duloxetine 60 mg capsule,delayed release 60 mg PO QHS depression 03/06/25 tamsulosin 0.4 mg capsule 0.4 mg PO DAILY enlarged prostate 03/06/25 oxycodone 5 mg tablet 5 mg PO Q6H PRN pain 7 days #20 tabs 03/11/25 apixaban 5 mg tablet (Eliquis) 5 mg PO BID Afib 03/18/25 Held on 03/20/25. Instructions: Resume on 04/03/25. Hold your Eliquis for 2 weeks, then resume it at 5 mg twice a day furosemide 40 mg tablet 40 mg PO .qd CHF 03/18/25 magnesium oxide 250 mg PO DAILY supplement 03/18/25 multivitamin 1 tab PO DAILY supplement 03/18/25 ondansetron 4 mg disintegrating tablet 4 mg PO Q8H PRN PRN nausea 03/18/25 pantoprazole 40 mg tablet,delayed release (Protonix) 40 mg PO BID #60 tabs 03/20/25 spironolactone 25 mg tablet 12.5 mg (1/2 x 25 mg) PO DAILY #30 tabs 03/20/25 sucralfate 1 gram tablet 1 g PO TID #90 tabs 03/20/25 Hospital Course Operations None Procedures EGD Summary of Care Provided Minutes Spent on Discharge: 31 Hospital Course: This 59-year-old white male was seen in the emergency room at [facility] with a complaint of lightheadedness and near syncope. This has been going on for the past 2 weeks when the patient got up from a seated position. Patient had recently been hospitalized for congestive heart failure at [facility] and discharged approximately 24 hours prior. Patient saw his PCP today and was told to come to the ER for further evaluation. CBC showed hemoglobin of 11.1, chemistry profile was relatively unremarkable except for creatinine of 1.7. Urinalysis showed possible UTI with 3+ bacteria elevated white blood cells and nitrites. Stool for occult blood was positive, patient was started on a Protonix drip and admitted to PCU for further care. Blood count was monitored, he did not require blood transfusion, he underwent an EGD which showed multiple gastric ulcers without bleeding. Patient was cautioned against taking nonsteroidal anti- inflammatory agents which she had been taking on an outpatient basis along with his Eliquis. On (more content not included)...[facility]10-16-2025 Progress note Author Herbert Mane [facility] Note Date/Time March 20, 2025 1 :41pm [facility] Medical Records Department [address] [place] [address] Progress Note - Hospitalist 03/19/251822 MR#: [id number] Acct: [id number] Name: JAME WALLACE Rep #:[id number] : 1965 59 From: Herbert Mane DO PCP: ELDON MarinaC Status:ADM IN Location: [place] [address] Subjective Subjective Patient was seen and examined today, EGD was done which showed nonbleeding gastric ulcers, there were no lesions in the duodenum. Patient is on a Protonixdrip and Carafate, CBC will be repeated tomorrow, patient's hemoglobin this morning was 9.3. Objective Data Objective Data Vital Signs: Vital Signs Temp Pulse Resp BP Pulse Ox O2 Del Method 98.2 F 83 16 100/50 L 97 Room Air 03/19/25 16:28 03/19/25 16:28 03/19/25 16:28 03/19/25 16:28 03/19/25 16:28 03/19/25 16:25 Oxygen Delivery Method Room Air Weight: 164.8 kg Body Mass Index (BMI) 46.6 Intake & Output: Intake and Output for Last 24 Hours 03/17/25 03/18/25 03/19/25 23:59 23:59 23:59 Intake Total 2034 1499.67 / 1499.67 Output Total 1000 / 1000 Balance 2034 499.67 / 499.67 Lab / Micro Data 03/20/25 05:01 03/19/25 04:36 Labs: Laboratory Results - last 24 hr 03/18/25 18:34: WBC 10.8, RBC 3.60 L, Hgb 11.1 L, Hct 34.1 L, MCV 94.7 H, MCH 30.8, MCHC 32.6, RDW Std Deviation 45.5 H, RDW Coeff of Sarah 13.2, Plt Count 245,MPV 12.3 H, Immature Gran % (Auto) 0.300, Neut % (Auto) 66.1, Lymph % (Auto) 18.6 L, [place] % (Auto) 11.3 H, Eos % (Auto) 3.1, Baso % (Auto) 0.6, Absolute Neuts (auto) 7.1, Absolute Lymphs (auto) 2.00, Nucleated RBC % 0, D-Dimer Quant (PE/DVT) < 0.27 L, Sodium 138, Potassium 5.0, Chloride 99, Carbon Dioxide 30.2, Anion Gap 9, BUN 69 H, Creatinine 1.70 H, Estim Creat Clear Calc 77.42, Est GFR (MDRD) Non-Af 46 L, BUN/Creatinine Ratio 40.4 H, Glucose 180 H, Calcium 9.5, NT pro BNP II 128 03/18/25 20:00: Urine Color Yellow, Urine Clarity Cloudy, Urine pH 5.0, Ur Specific [place] 1.020, Urine Protein 100 H, Urine Glucose (UA) 100 H, Urine Ketones Negative, Urine Occult Blood 250 H, Urine Nitrite Positive H, Urine Bilirubin 1 H, Urine Urobilinogen Normal, Ur Leukocyte Esterase 500 H, Urine [id number] SEEN, Urine WBC 10-25 SEEN, Ur Squamous Epith Cells 0 SEEN, Amorphous Sediment 2+, Urine Bacteria 3+, Urine Mucus 0 SEEN 03/19/25 00:51: POC Glucose 131 H 03/19/25 04:36: WBC 8.0, RBC 3.03 L, Hgb 9.3 L, Hct 28.7 L, MCV 94.7 H, MCH 30.7, MCHC 32.4, RDW Std Deviation 46.0 H, RDW Coeff of Sarah 13.3, Plt Count 189,MPV 12.6 H, Immature Gran % (Auto) 0.400, Neut % (Auto) 58.6, Lymph % (Auto) 28.7, [place] % (Auto) 8.0, Eos % (Auto) 3.5, Baso % (Auto) 0.8, Absolute Neuts (auto) 4.7, Absolute Lymphs (auto) 2.29, Nucleated RBC % 0, PT 14.3, INR 1.1, APTT 28.6, Sodium 141, Potassium 4.8, Chloride 106, Carbon Dioxide 27.5, Anion Gap 8, BUN 62 H, Creatinine 1.50 H, Estim Creat Clear Calc 87.50, Est GFR (MDRD)Non-Af 54 L, BUN/Creatinine Ratio 41.3 H, Glucose 151 H, Calcium 8.8, Total Bilirubin 0.29, Direct Bilirubin 0.12, AST 15, ALT 10, Alkaline Phosphatase 66, Total Protein 5.5 L, Albumin 3.2 L, Globulin 2.3 03/19/25 05:31: POC Glucose 149 H 03/19/25 11:40: POC Glucose 155 H Micro: Microbiology 03/18/25 21:14 Stool Stool Occult Blood (LETY) - Final Occult Blood Positive Radiography Diagnostic Testing: Radiology Impression Chest X-Ray 03/18/25 19:35 IMPRESSION: Elevated right hemidiaphragm, likely with overlying atelectasis. Unchanged. Reading Location: [facility] Physical Exam Const alert, oriented x3, no apparent distress and healthy appearing Constitutional Narrative: Patient has class III obesity General Appearance: cooperative, well kempt and well developed Orientation / Consciousness: awake, oriented to person, oriented to place and oriented to time HEENT normocephalic, head/scalp atraumatic and moist oral mucous membranes Eyes PERRL, EOMs intact bilaterally and conjunctivae normal Neck supple, no JVD, thyroid normal and no carotid bruits General: trachea midline Resp normal respiratory effort, no retractions, no use of accessory muscles and clearto auscultation bilaterally Auscultation: Negative for rales, rhonchi or wheezes Cardio regular rate, regular rhythm, S1 normal heart sound, S2 normal heart sound, no murmurs, no rub and no gallops GI normal to inspection, nondistended, normoactive bowel sounds, soft to palpation,non-tender and non-distended Extremity no clubbing, cyanosis or edema Skin no rashes or lesions noted General Skin Exam: no breakdown Neuro oriented x3, CN's II-XII intact bilaterally, no focal motor deficits and no sensory deficits noted Sensorium / Orientation: awake and alert Speech: speech normal Psych affect normal Assessment & Plan Assessment/Plan (1) Orthostatic hypotension: PLAN: Plan 1. Orthostatic hypotension secondary to acute anemia from upper GI bleed (gastric ulcers)-patient's hemoglobin will be rechecked tomorrow morning, continue Protonix and Carafate #2 acute anemia secondary to acute upper GI bleed-CBC will be rechecked tomorrow #3 paroxysmal O-gwv-[id number] will continue metoprolol, he is off Eliquis #4 gastric ulcers secondary to use of nonsteroidal anti-inflammatory agents- patient has been cautioned to remain off these medications #5 bacteriuria-patient is receiving IV Rocephin, await urine culture results #6 hypothyroidism-patient is on Synthroid #7 chronic diastolic congestive heart failure-patient is stable at this time Total clinical time spent by myself addressing the patient's medical issues, reviewing all of his data, and collaborating with the patient's care team: 35 minutes Charges/Coding Visit Charges Inpatient E&M: 55696 Subs Hosp L2 03/20/25 1341 <Electronically signed by Herbert Mane DO> Cosigner Signature (if applicable): CC: ~ Signed [facility] Work Phone: 1(955) 436-302210-16-2025 Consult note Author Roman Pichardo [facility] Note Date/Time March 20, 2025 2 :55pm [facility] Medical Records Department [address] [place] [address] Anesthesia Postop Eval II 03/19/25 1704 MR#: [id number] Acct: [id number] Name: JAME WALLACE A Rep #:[id number] : 1965 59 From: Roman Ross PCP: DAVID Marina Status:ADM IN Y Race: C Location: [place] [address] 1-1 Anesthesia Postop Eval I Sum Postop Eval Completion status Anesthesia document: Postop Eval 1 completed: Yes Anesthesia Postop Eval I Summary Anesthesia Postop Eval I Summary: Anesthesia Postop Eval I: Assessment Summary 3 Airway patent Yes 03/19/25 16:28 TYPING OFFICE WORKER.TNES Spontaneous unlabored Yes 03/19/25 16:28 TYPING OFFICE WORKER.TNES respirations Mental status nausea No 03/19/25 16:28 TYPING OFFICE WORKER.TNES Vomiting No 03/19/25 16:28 TYPING OFFICE WORKER.TNES Anesthesia Postop Eval I: Fluid Summary Crystalloid volume administer 200 03/19/25 16:28 TYPING OFFICE WORKER.TNES (ml) Colloids volume administered ( ml) Blood Product volume administered (ml) Total IV fluid infused 200 03/19/25 16:28 TYPING OFFICE WORKER.TNES Anesthesia Postop Eval I: Summary Notes Anesthesia Complication No 03/19/25 16:28 TYPING OFFICE WORKER.TNES Anesthesia Complication Comment: Post-operative progress note Anesthesia: Postop Eval II Evaluation Mental status: Awake and Calm Pain Level: 1 nausea: No Vomiting: No Complications Anesthesia Complication: No 03/19/25 1704 <Electronically signed by Roman Pichardo MD> Date _ Roman Pichardo MD Cosigner Signature: Date CC: ~ Signed [facility] Work Phone: 1(745) 912-856010-16-2025 Consult note Author Eric Sheehan [facility] Note Date/Time March 19, 2025 4 :29pm [facility] Medical Records Department [address] [place] [address] Anesthesia Postop Eval I 03/19/25 1628 MR#: [id number] Acct: [id number] Name: JAME WALLACE Rep #:[id number] : 1965 59 From: Eric MALVAE PCP: Jenny Live BRUSH WASHER-C Status:ADM IN Y Race: C Location: [place] [address] 1- Anesthesia: Postop Eval I Current Vital Signs Temperature: 98.2 F Pulse Rate: 83 Blood Pressure: 100/50 Respiratory Rate: 16 Pulse Ox: 97 Assessment Airway patent: Yes Spontaneous unlabored respirations: Yes nausea: No Vomiting: No Anesthesia Complication: No Fluid Hydration Crystalloid volume administer (ml): 200 Total IV fluid infused: 200 Progress Note Anesthesia document: Postop Eval 1 completed: Yes 03/19/25 1629 <Electronically signed by Eric Sheehan CRNA> Date _ Eric Sheehan CRNA Cosigner Signature: Date CC: ~ Signed [facility] Work Phone: [phone]) 835-260410-16-2025 Consult note Author Isaiah Galloway [facility] Note Date/Time March 19, 2025 3 :53pm [facility] Medical Records Department [address] [place] [address] Consultation - GI 03/19/25 1550 MR#: [id number] Acct: [id number] Name: JAME WALLACE A Rep #:[id number] : 1965 59 From: Isaiah Galloway DO PCP: DAVID Marina Status:ADM IN Location: [place] [address] HPI Consult Data Date of Consult: 03/19/25 HPI Narrative Reason for Consultation: Syncope HPI Narrative: JAME WALLACE, is a 59 M who presented to the ED with a complaint of lightheadedness and near syncope. Patient was recently discharged from the hospital with CHF as exacerbation and kidney stones. He is on aspirin Plavix and Eliquis and has also been taken celecoxib for arthritis. Patient apparentlyfeels lightheaded whenever he gets up and has gone on over the past 2 weeks. Hefeels dizzy and lightheaded when he stands and feels better when he sits down and has also had several episodes of syncope. He denied any nausea or vomiting, fever or chills, chest pain or palpitations. He denied any diarrhea but admitted to dark stools. He had recently been on oral toradol for kidney stones and is also chronically on celebrex at home. Review of systems otherwise negative. He went to see his PCP today and was toldto come into the ED. I was asked to see him because his hemoglobin went from 12.7-11.1 in 1 day and his stools were fecal occult positive. [facility] Medical History CHF exacerbation ADYD (obstructive sleep apnea) Chronic anticoagulation Atrial fibrillation Morbid obesity with BMI of 45.0-49.9, adult Respiratory insufficiency Hypertension Diabetes Chronic pain Kidney stones Atrial fibrillation [...] Medications ?Medication ?Instructions ?Recorded ?Last Taken ?Type prodigy #1 ea 03/02/18 Unknown Histo ry fluticasone propionate 0.05 % 1 applic topical QD-BID PRN 11/05/20 Unknown Rx topical cream (Cutivate) allergic reaction #60 grams albuterol sulfate 90 mcg/actuation 2 puff inhalation Q 4H PRN sob #6.7 08/22/24 Unknown Rx aerosol inhaler (Ventolin HFA) grams bupropion HCl 100 mg tablet,12 hr 100 mg PO BID #180 t abs 08/22/24 03/18/25 23:50 Rx sustained-release celecoxib 200 mg capsule 200 mg PO BID #180 caps 08/0303/18/25 11:50 Rx gabapentin 400 mg capsule 400 mg PO TID 90 days #270 c aps 08/22/24 03/18/25 06:51 Rx glimepiride 4 mg tablet 4 mg PO QAM #90 tabs 5 03/18/25 06:51 Rx metformin 850 mg tablet 850 mg PO BID #180 tabs 08/0303/18/25 06:52 Rx metoprolol tartrate 37.5 mg tablet 37.5 mg PO BID #180 tabs 08/22/24 03/18/25 06:52 Rx mirtazapine 15 mg tablet 7.5 mg (1/2 x 15 mg) PO QHS PRN 08/22/24 03/17/25 23:52 Rx sleep 90 days #90 tabs pioglitazone 45 mg tablet 45 mg PO DAILY #90 tabs 08/0303/17/25 18:53 Rx tramadol 50 mg tablet 50 mg PO TID neuropathic leigha n #90 08/22/24 03/18/25 06:54 Rx tabs levothyroxine 75 mcg tablet 75 mcg PO QDAY #90 tabs 03/18/25 06:51 Rx (Euthyrox) atorvastatin 40 mg tablet 40 mg PO QHS #90 tabs 03/17/25 23:49 Rx ammonium lactate 12 % topical cream 1 applic topical P RN CRACKED HANDS 03/06/25 Unknown History duloxetine 60 mg capsule,delayed 60 mg PO QHS depressi on 03/06/25 03/17/25 23:50 History release ketorolac 10 mg tablet 10 mg PO 4X/DAY PRN PRN mode rate 03/06/25 03/10/25 History pain tamsulosin 0.4 mg capsule 0.4 mg PO DAILY enlarged pro state 03/06/25 03/18/25 06:54 History oxycodone 5 mg tablet 5 mg PO Q6H PRN pain 7 days #20 03/11/25 03/15/25 Rx tabs spironolactone 25 mg tablet 25 mg PO DAILY #30 tabs Unknown Rx apixaban 5 mg tablet (Eliquis) 5 mg PO BID Afib 03/18/25 06:54 History furosemide 40 mg tablet 40 mg PO .qd CHF 03/18/25 06:55 History magnesium oxide 250 mg PO DAILY supplement 1 03/18/25 06:52 History multivitamin 1 tab PO DAILY supplement 03/18/25 06:52 History ondansetron 4 mg disintegrating 4 mg PO Q8H PRN PRN na usea 03/18/25 Unknown History tablet Allergy/AdvReac Type Severity Reaction Status Date / Time No Known Allergies Allergy Verified 03/18/25 18:06 Family History Other Esophageal cancer FH: ovarian cancer Surgical History History of surgery History of foot surgery History of colonoscopy Lump of skin of back History of colectomy History of appendectomy History of cholecystectomy Social History household members: spouse Smoking Status: Never smoker ROS Constitutional Constitutional: Denies fatigue, fever(s), poor appetite, weight gain or weight loss Gastrointestinal Gastrointestinal: Denies belching, bloating, change in bowel habits, change in stool character, chewing difficulty, coffee ground emesis, constipation, cramping, diarrhea, dyspepsia, dysphagia, early satiety, excessive flatus, fecalincontinence, heartburn, hematemesis, hematochezia, hemorrhoids, loose stools, melena, nausea, odynophagia, rectal bleeding, tenesmus, vomiting or weight changes Physical Exam Const alert, oriented x3, no apparent distress and healthy appearing General Appearance: cooperative GI normal to inspection, nondistended, normoactive bowel sounds, soft to palpation,non-tender and non-distended Percussion: normal to percussion Rectal Exam: deferred Lab / Micro Data 03/19/25 04:36 03/19/25 04:36 Labs: Laboratory Results - last 24 hr 03/18/25 18:34: WBC 10.8, RBC 3.60 L, Hgb 11.1 L, Hct 34.1 L, MCV 94.7 H, MCH 30.8, MCHC 32.6, RDW Std Deviation 45.5 H, RDW Coeff of Sarah 13.2, Plt Count 245,MPV 12.3 H, Immature Gran % (Auto) 0.300, Neut % (Auto) 66.1, Lymph % (Auto) 18.6 L, [place] % (Auto) 11.3 H, Eos % (Auto) 3.1, Baso % (Auto) 0.6, Absolute Neuts (auto) 7.1, Absolute Lymphs (auto) 2.00, Nucleated RBC % 0, D-Dimer Quant (PE/DVT) < 0.27 L, Sodium 138, Potassium 5.0, Chloride 99, Carbon Dioxide 30.2, Anion Gap 9, BUN 69 H, Creatinine 1.70 H, Estim Creat Clear Calc 77.42, Est GFR (MDRD) Non-Af 46 L, BUN/Creatinine Ratio 40.4 H, Glucose 180 H, Calcium 9.5, NT pro BNP II 128 03/18/25 20:00: Urine Color Yellow, Urine Clarity Cloudy, Urine pH 5.0, Ur Specific [place] 1.020, Urine Protein 100 H, Urine Glucose (UA) 100 H, Urine Ketones Negative, Urine Occult Blood 250 H, Urine Nitrite Positive H, Urine Bilirubin 1 H, Urine Urobilinogen Normal, Ur Leukocyte Esterase 500 H, Urine [id number] SEEN, Urine WBC 10-25 SEEN, Ur Squamous Epith Cells 0 SEEN, Amorphous Sediment 2+, Urine Bacteria 3+, Urine Mucus 0 SEEN 03/19/25 00:51: POC Glucose 131 H 03/19/25 04:36: WBC 8.0, RBC 3.03 L, Hgb 9.3 L, Hct 28.7 L, MCV 94.7 H, MCH 30.7, MCHC 32.4, RDW Std Deviation 46.0 H, RDW Coeff of Sarah 13.3, Plt Count 189,MPV 12.6 H, Immature Gran % (Auto) 0.400, Neut % (Auto) 58.6, Lymph % (Auto) 28.7, [place] % (Auto) 8.0, Eos % (Auto) 3.5, Baso % (Auto) 0.8, Absolute Neuts (auto) 4.7, Absolute Lymphs (auto) 2.29, Nucleated RBC % 0, PT 14.3, INR 1.1, APTT 28.6, Sodium 141, Potassium 4.8, Chloride 106, Carbon Dioxide 27.5, Anion Gap 8, BUN 62 H, Creatinine 1.50 H, Estim Creat Clear Calc 87.50, Est GFR (MDRD)Non-Af 54 L, BUN/Creatinine Ratio 41.3 H, Glucose 151 H, Calcium 8.8, Total Bilirubin 0.29, Direct Bilirubin 0.12, AST 15, ALT 10, Alkaline Phosphatase 66, Total Protein 5.5 L, Albumin 3.2 L, Globulin 2.3 03/19/25 05:31: POC Glucose 149 H 03/19/25 11:40: POC Glucose 155 H Micro: Microbiology 03/18/25 21:14 Stool Stool Occult Blood (LETY) - Final Occult Blood Positive Imaging Radiology Impression Chest X-Ray 03/18/25 19:35 IMPRESSION: Elevated right hemidiaphragm, likely with overlying atelectasis. Unchanged. Reading Location: [facility] Assessment & Plan Assessment/Plan (1) Orthostatic hypotension: (2) Acute upper gastrointestinal bleeding: PLAN: He will undergo an upper endoscopy to evaluate his upper GI tract. He wasexplained alternatives, risk and benefits include not withstanding bleeding, infection, sepsis, perforation, need for emergent urgent . He will have anASA of 3. Charges/Coding Visit Charges Inpatient E&M: 23010 Init Hosp L3 03/19/25 1553 <Electronically signed by Isaiah Friend DO> Cosigner Signature (if applicable): CC: BRUSH W[employer]ER-[employer]~ Signed [facility] Work Phone: [phone] Consult note Author Roman Pichardo [facility] Note Date/Time March 19, 2025 3 :21pm [facility] Medical Records Department [address] [place] [address] Pre-Anesthesia Evaluation 03/19/25 1517 MR#: [id number] Acct: [id number] Name: SHEKHARTAMELAJAME Rep #:[id number] : 1965 59 From: Roman Ross PCP: DAVID Marina Status:ADM IN Y Race: C Location: [place] [address] 1-1 ASA Classification* ASA Classification ASA Classification: 3 and E Assessment & Plan Anesthesia* Anesthesia Assessment Anesthesia [...] anesthesia risk assessments. Anesthesia Type Anesthesia Type: MAC History Source History Obtained from:: Patient and Chart Anesthesia Focused Assessment* Temperature: 97.7 F Pulse Rate: 80 Blood Pressure: 106/66 Respiratory Rate: 16 Pulse Ox: 95 Oxygen Delivery Method: Room Air Airway Assessment Mouth opens: >3 cm Mallampati Score: II Teeth Condition: Caps/Crowns and Missing Neck Range of motion (ROM): Limited ROM Labs Anesthesia Preop lab: CBC WBC, (4.4-11.0) 8.0 K/mm3 Today, 04:36 RBC, (4.6-6.2) 3.03 M/mm3 L Today, 04:36 Hgb, (13.0-16.5) 9.3 g/dL L Today, 04:36 Hct, (40-54) 28.7 % L Today, 04:36 Plt Count, (150-450) 189 K/mm3 Today, 04:36 CHEMISTRY Potassium, (3.3-5.1) 4.8 mmol/L Today, 04:36 Sodium, (133-145) 141 mmol/L Today, 04:36 Magnesium, (1.5-2.2) 1.7 mg/dL 03/16/25, 05:57 Phosphorus, (2.7-4.5) 5.3 mg/dL H 03/16/25, 05:57 BUN, (4-19) 62 mg/dL H Today, 04:36 Creatinine, (0.70-1.20) 1.50 mg/dL H Today, 04:36 Glucose, (70-99) 151 mg/dL H Today, 04:36 POC Glucose, (74-106) 155 mg/dL H Today, 11:40 TSH, (0.300-4.200) 1.490 uIU/mL 03/16/25, 05:57 COAG PT, (11.7-14.9) 14.3 SECONDS Today, 04:36 INR 0.8 10/04/20, 21:08 Pre-Assessment Diagnosis/Proposed Procedure Planned Operative Procedure(s): EGD and colonoscopy Anesthesia History Anesthesia History - csr technician: Anesthesia History - csr technician Hx Hospitalization Yes: 02/2025 CHF 03/06/25 14:04 [...] Oral intake: Last Oral Intake NPO since 00:01 03/19/25 14:52 Meds taken in AM with sips of Yes 03/19/25 14:52 water? Meds patient instructed to gabapentin, tramadol 03/19/25 14:52 take am of surgery PONV PONV - csr technician: PONV - csr technician Female HX of Motion Sickness HX of N/V After Surgery Non-Smoker Duration of Surgery greater than 60 minutes Number of Risk Factors PONV Score Height & Weight Height & Weight: Anesthesia: Height & Weight Height 6 ft 2 in 03/19/25 14:52 Weight: 164.8 kg 03/19/25 14:52 Body Mass Index (BMI) 46.6 03/19/25 14:52 Respiratory Assessment Respiratory Assessment - csr technician: Respiratory Tract Infection Hx - csr technician Hx Respiratory Tract Infection No 03/06/25 14:04 STOP Sleep Apnea STOP Sleep Apnea - csr technician: STOP Sleep Apnea - csr technician Hx Hypertension No 03/19/25 11:16 Hx Sleep Apnea No 03/18/25 23:22 CPAP No 03/11/25 10:35 BIPAP No 03/06/25 14:04 Do you snore loudly (louder Yes 03/18/25 23:22 than talking or can be heard Do you often feel tired/ No 03/18/25 23:22 fatigued/ sleepy during daytime? Has anyone observed you stop Yes 03/18/25 23:22 breathing during sleep? STOP Results Positive 03/18/25 23:22 QUESTION #5 FULL TEXT : Do you snore loudly (louder than talking or can be heard through closed doors)? Tobacco Use History Tobacco Use History - csr technician: Tobacco Use History - csr technician Tobacco Use Smoking Status Never smoker 03/18/25 23:22 Hx Tobacco Use No 03/18/25 23:22 Years Smoking Packs Smoked per Day Smoking Cessation Date was within the last 15 years Hx Smoking Cessation Date Hx Smoking Cessation Counseling Hematologic Medial History Hematologic Hx - csr technician: Hematologic Medical Hx - statistical modeler Hx of Blood Transfusion No 03/18/25 23:22 Hx of Transfusion in last 3 No 03/18/25 23:22 Months Date of Last Transfusion (if within last 3 months) Ever experience any problems No 03/18/25 23:22 with transfusion(s)? Specify any problems Hx of Preganancy in last 3 N/A 03/18/25 23:22 Months Nurse Filling Out Transfusion AREAD 03/18/25 23:22 & Questions: Date: 03/18/25 03/18/25 23:22 Time: 23:44 03/18/25 23:22 Patient unable to answer at this time (ie. confused, unrespo /Reproduction History /Reproductive History - csr technician: /Reproductive Hx- csr technician Hx Now Gestational Age (in weeks): EDC: Hx Hx Para Hx Section SAB Active Medications Active Medications: Current Medications Generic Name Dose Route Start Last Admin Trade Name Freq PRN Reason Stop Dose Admin Acetaminophen 650 mg 03/18/25 23:21 Acetaminophen 325 Mg Tablet PO Q6H PRN PRN Pain 1-10 Or Fever >100.7 Atorvastatin Calcium 40 mg 03/19/25 22:00 Atorvastatin Calcium 40 Mg Tablet PO QHS AKHIL Bupropion HCl 100 mg 03/19/25 10:00 03/19/25 14:38 Bupropion (Sr) 100 Mg Tablet.Sa PO Not Given BID AKHIL Duloxetine HCl 60 mg 03/19/25 22:00 Duloxetine Hcl 60 Mg Capsule PO QHS AKHIL Furosemide 40 mg 03/19/25 10:00 03/19/25 14:37 Furosemide 40 Mg Tablet PO Not Given DAILY AKHIL Protocol Gabapentin 400 mg 03/19/25 06:00 03/19/25 14:21 Gabapentin 400 Mg Capsule PO 400 mg TID AKHIL Administration Glucagon 1 mg 03/19/25 00:32 Glucagon 1 Mg/Ml Syringe IM X1 PRN Hypoglycemia Protocol Pantoprazole Sodium 80 mg/ 100 mls @ 10 mls/hr 03/18/25 21:30 03/19/25 08:17 Sodium Chloride CONT INF 10 mls/hr Q10H AKHIL Administration Sodium Chloride 500 mls @ 15 mls/hr 03/18/25 23:22 IV PRN PRN Blood Transfusion Sodium Chloride 250 mls @ 15 mls/hr 03/18/25 23:22 03/19/25 02:37 IV 0 mls/hr .[id number] PRN Infusion Saline Flush Sodium Chloride 250 mls @ 15 mls/hr 03/18/25 23:22 IV .[id number] PRN Additional IVPB Infusion Dextrose 250 mls @ 0 mls/hr 03/19/25 00:32 Dextrose 10%-Water IV .Q0M PRN HYPOGLYCEMIA Protocol As Directed Ceftriaxone Sodium 1 gm in 50 mls @ 100 mls/hr 03/19/25 01:10 03/19/25 04:07 Rocephin IV Infused QHS AKHIL Infusion Insulin Human Lispro 0 unit 03/19/25 06:00 03/19/25 11:54 Insulin Lispro 100 Unit/Ml Insuln.Pen SC Not Given Q6 [facility] Protocol Lactic Acid 1 applic 03/19/25 01:00 Ammonium Lactate 225 Gm Bottle TOPICAL DAILY PRN PRN CRACKED HANDS Levothyroxine Sodium 75 mcg 03/19/25 06:00 03/19/25 06:06 Levothyroxine 75 Mcg Tablet PO 75 mcg DAILY@0600 AKHIL Administration Magnesium Chloride 64 mg 03/19/25 10:00 03/19/25 10:02 Magnesium Chloride 64 Mg Delay Rel.Tablet PO Not Given DAILY AKHIL Metoprolol Tartrate 37.5 mg 03/19/25 10:00 03/19/25 14:37 Metoprolol Tartrate 25 Mg Tablet PO Not Given BID AKHIL Mirtazapine 7.5 mg 03/18/25 23:21 03/19/25 00:21 Mirtazapine 15 Mg Tablet PO 7.5 mg QHS PRN PRN Administration SLEEP Multivitamins 1 tablet 03/19/25 08:00 03/19/25 07:47 Multivitamins,Therapeutic Tablet PO Not Given DAILYCM AKHIL Nitroglycerin 0.4 mg 03/18/25 23:21 Nitroglycerin (Inpatient Use) 0.4 Mg Tab.Subl SL Q5M PRN CARDIAC/CHEST PAIN Ondansetron HCl 4 mg 03/18/25 23:21 Ondansetron 4 Mg/2 Ml Vial IV Q8H PRN PRN NAUSEA/VOMITING Oxycodone HCl 5 mg 03/18/25 23:21 03/19/25 11:45 Oxycodone 5 Mg Tablet PO 5 mg Q6H PRN PRN Administration Pain Score 4-10 Sodium Chloride 10 - 40 ml 03/18/25 23:22 03/19/25 05:36 0.9% Saline Lock 10 Ml Syringe IV 40 ml UD PRN Administration SALINE FLUSH Spironolactone 25 mg 03/19/25 10:00 03/19/25 14:37 Spironolactone 25 Mg Tablet PO Not Given DAILY [facility] Protocol Tamsulosin HCl 0.4 mg 03/19/25 10:00 03/19/25 10:01 Tamsulosin Hcl 0.4 Mg Capsule PO Not Given DAILY [facility] Tramadol HCl 50 mg 03/19/25 06:00 03/19/25 14:21 Tramadol 50 Mg Tablet PO 50 mg TID AKHIL Administration Triamcinolone Acetonide 1 applic 03/19/25 00:58 Triamcinolone Acetonide 0.1% Cream 15 Gm TOPICAL BID PRN PRN allergic reaction PFSH Medical History CHF exacerbation ADDY (obstructive sleep apnea) Chronic anticoagulation Atrial fibrillation Morbid obesity with BMI of 45.0-49.9, adult Respiratory insufficiency Hypertension Diabetes Chronic pain Kidney stones Atrial fibrillation [...] Medications ?Medication ?Instructions ?Recorded ?Last Taken ?Type prodigy #1 ea 03/02/18 Unknown Histo ry fluticasone propionate 0.05 % 1 applic topical QD-BID PRN 11/05/20 Unknown Rx topical cream (Cutivate) allergic reaction #60 grams albuterol sulfate 90 mcg/actuation 2 puff inhalation Q 4H PRN sob #6.7 08/22/24 Unknown Rx aerosol inhaler (Ventolin HFA) grams bupropion HCl 100 mg tablet,12 hr 100 mg PO BID #180 t abs 08/22/24 03/18/25 23:50 Rx sustained-release celecoxib 200 mg capsule 200 mg PO BID #180 caps 08/0303/18/25 11:50 Rx gabapentin 400 mg capsule 400 mg PO TID 90 days #270 c aps 08/22/24 03/18/25 06:51 Rx glimepiride 4 mg tablet 4 mg PO QAM #90 tabs 5 03/18/25 06:51 Rx metformin 850 mg tablet 850 mg PO BID #180 tabs 08/0303/18/25 06:52 Rx metoprolol tartrate 37.5 mg tablet 37.5 mg PO BID #180 tabs 08/22/24 03/18/25 06:52 Rx mirtazapine 15 mg tablet 7.5 mg (1/2 x 15 mg) PO QHS PRN 08/22/24 03/17/25 23:52 Rx sleep 90 days #90 tabs pioglitazone 45 mg tablet 45 mg PO DAILY #90 tabs 08/0303/17/25 18:53 Rx tramadol 50 mg tablet 50 mg PO TID neuropathic leigha n #90 08/22/24 03/18/25 06:54 Rx tabs levothyroxine 75 mcg tablet 75 mcg PO QDAY #90 tabs 03/18/25 06:51 Rx (Euthyrox) atorvastatin 40 mg tablet 40 mg PO QHS #90 tabs 03/17/25 23:49 Rx ammonium lactate 12 % topical cream 1 applic topical P RN CRACKED HANDS 03/06/25 Unknown History duloxetine 60 mg capsule,delayed 60 mg PO QHS depressi on 03/06/25 03/17/25 23:50 History release ketorolac 10 mg tablet 10 mg PO 4X/DAY PRN PRN mode rate 03/06/25 03/10/25 History pain tamsulosin 0.4 mg capsule 0.4 mg PO DAILY enlarged pro state 03/06/25 03/18/25 06:54 History oxycodone 5 mg tablet 5 mg PO Q6H PRN pain 7 days #20 03/11/25 03/15/25 Rx tabs spironolactone 25 mg tablet 25 mg PO DAILY #30 tabs Unknown Rx apixaban 5 mg tablet (Eliquis) 5 mg PO BID Afib 03/18/25 06:54 History furosemide 40 mg tablet 40 mg PO .qd CHF 03/18/25 06:55 History magnesium oxide 250 mg PO DAILY supplement 1 03/18/25 06:52 History multivitamin 1 tab PO DAILY supplement 03/18/25 06:52 History ondansetron 4 mg disintegrating 4 mg PO Q8H PRN PRN na usea 03/18/25 Unknown History tablet Allergy/AdvReac Type Severity Reaction Status Date / Time No Known Allergies Allergy Verified 03/18/25 18:06 Family History Other Esophageal cancer FH: ovarian cancer Surgical History History of surgery History of foot surgery History of colonoscopy Lump of skin of back History of colectomy History of appendectomy History of cholecystectomy Social History household members: spouse Smoking Status: Never smoker Review of Systems (Anesthesia) ROS Narrative System reviewed and no additional complaints, except as documented. 03/19/25 1521 <Electronically signed by Roman Pichardo MD> Date _ Roman Pichardo MD Cosigner Signature: Date CC: ~ Signed [facility] Work Phone: [phone] 364-703110-16-2025 History and physical note Author Nuzhat Cutler [facility] Note Date/Time March 19, 2025 6 :57am [facility] Medical Records Department [address] [place] [address] H&P Exam - Hospitalist 03/18/252151 MR#: [id number] Acct: [id number] Name: JAME WALLACE Rep #:[id number] : 1965 59 From: Nuzhat Cutler MD PCP: Jenny Live, BRUSH WASHER-C Status:ADM IN [facility] H[facility] - General General Date of Admission: 03/18/25 Date of Service: 03/18/25 HPI Narrative JAME WALLACE, is a 59 M with a PMH as outlined who was admitted via the ED on03/18/2025 with a complaint of lightheadedness and near syncope. Patient apparently feels lightheaded whenever he gets up and has gone on over the past 2weeks. He feels dizzy and lightheaded when he stands and feels better when he sits down and has also had several episodes of syncope. He has had associated tinnitus and spinning sensation and states his face feels flushed and he has blurry vision at times associated with this. He denied any nausea or vomiting, fever or chills, chest pain or palpitations. He denied any diarrhea but admitted to dark stools. He had recently been on oral toradol for kidney stones and is also chronically on celebrex at home. Review of systems otherwise negative. He went to see his PCP today and was told to come into the ED. Vitals in the ED were blood pressure 110/53, pulse rate of 76, respiratory rate of 15 and she was saturating at 97% on room air. CBC showed hemoglobin of 11.1 and WBC of 10.8. Platelets were 245. D-dimer was less than 0.27. Chemistry shows sodium of 138 with potassium of 5 and bicarb of 30.2. Creatinine is 1.7. URinalysis showed evidence of UTI with 3+ bacteria, elevated wbc and nitrites. Chest x-ray showed elevated right hemidiaphragm likely with overlying atelectasis which was unchanged from prior imaging but no other acute cardiopulmonary pathology. His hemoglobin was noted to have dropped from 12.7 on 03/16/2025 to 11.1 today. Stool for occult blood done was positive. He is on Eliquis. Was started on pantoprazole drip after getting pantoprazole bolus in the ED and is being admitted to be managed for dizziness and near syncope dueto acute GI bleed. [facility] Medical History Diabetes Chronic pain Kidney stones [...] Medications ?Medication ?Instructions ?Recorded ?Last Taken ?Type prodigy #1 ea 03/02/18 Unknown Histo ry fluticasone propionate 0.05 % 1 applic topical QD-BID PRN 11/05/20 Unknown Rx topical cream (Cutivate) allergic reaction #60 grams albuterol sulfate 90 mcg/actuation 2 puff inhalation Q 4H PRN sob #6.7 08/22/24 Unknown Rx aerosol inhaler (Ventolin HFA) grams bupropion HCl 100 mg tablet,12 hr 100 mg PO BID #180 t abs 08/22/24 03/18/25 23:50 Rx sustained-release celecoxib 200 mg capsule 200 mg PO BID #180 caps 08/0303/18/25 11:50 Rx gabapentin 400 mg capsule 400 mg PO TID 90 days #270 c aps 08/22/24 03/18/25 06:51 Rx glimepiride 4 mg tablet 4 mg PO QAM #90 tabs 5 03/18/25 06:51 Rx metformin 850 mg tablet 850 mg PO BID #180 tabs 08/0303/18/25 06:52 Rx metoprolol tartrate 37.5 mg tablet 37.5 mg PO BID #180 tabs 08/22/24 03/18/25 06:52 Rx mirtazapine 15 mg tablet 7.5 mg (1/2 x 15 mg) PO QHS PRN 08/22/24 03/17/25 23:52 Rx sleep 90 days #90 tabs pioglitazone 45 mg tablet 45 mg PO DAILY #90 tabs 08/0303/17/25 18:53 Rx tramadol 50 mg tablet 50 mg PO TID neuropathic leigha n #90 08/22/24 03/18/25 06:54 Rx tabs levothyroxine 75 mcg tablet 75 mcg PO QDAY #90 tabs 03/18/25 06:51 Rx (Euthyrox) atorvastatin 40 mg tablet 40 mg PO QHS #90 tabs 03/17/25 23:49 Rx ammonium lactate 12 % topical cream 1 applic topical P RN CRACKED HANDS 03/06/25 Unknown History duloxetine 60 mg capsule,delayed 60 mg PO QHS depressi on 03/06/25 03/17/25 23:50 History release ketorolac 10 mg tablet 10 mg PO 4X/DAY PRN PRN mode rate 03/06/25 03/10/25 History pain tamsulosin 0.4 mg capsule 0.4 mg PO DAILY enlarged pro state 03/06/25 03/18/25 06:54 History oxycodone 5 mg tablet 5 mg PO Q6H PRN pain 7 days #20 03/11/25 03/15/25 Rx tabs spironolactone 25 mg tablet 25 mg PO DAILY #30 tabs Unknown Rx apixaban 5 mg tablet (Eliquis) 5 mg PO BID Afib 03/18/25 06:54 History furosemide 40 mg tablet 40 mg PO .qd CHF 03/18/25 06:55 History magnesium oxide 250 mg PO DAILY supplement 1 03/18/25 06:52 History multivitamin 1 tab PO DAILY supplement 03/18/25 06:52 History ondansetron 4 mg disintegrating 4 mg PO Q8H PRN PRN na usea 03/18/25 Unknown History tablet Allergy/AdvReac Type Severity Reaction Status Date / Time No Known Allergies Allergy Verified 03/18/25 18:06 Family History Other Esophageal cancer FH: ovarian cancer Surgical History History of surgery History of foot surgery History of colonoscopy Lump of skin of back History of colectomy History of appendectomy History of cholecystectomy Social History household members: spouse Smoking Status: Never smoker ROS Constitutional Constitutional: Reports fatigue, malaise and weakness; Denies anorexia, chills or fever(s) Eyes Eyes: Denies change in vision ENT HEENT: Denies dysphagia, epistaxis, headache(s) or sore throat Cardiovascular Cardiovascular: Reports lightheadedness and syncope; Denies chest pain, dyspnea on exertion, edema, orthopnea, palpitations, paroxysmal nocturnal dyspnea or rapid heart rate Respiratory/Chest Respiratory/Chest: Denies cough, dyspnea, shortness of breath at rest, shortnessof breath with exertion or wheezing Gastrointestinal Gastrointestinal: Reports melena; Denies abdominal pain, diarrhea, dyspepsia, nausea or vomiting Genitourinary Genitourinary: Denies burning urination or dysuria Musculoskeletal Musculoskeletal: Denies arthralgias Neurologic Neurologic: Reports dizziness and syncope; Denies confusion, disequilibrium, focal weakness, headache(s), numbness or seizures Psychiatric Psychiatric: Denies anxiety or depression Vital Signs Vital Signs Vital Signs: 03/18/25 18:06 03/18/25 18:37 03/18/25 19:06 Temperature 97.2 F L Temperature Source Temporal Pulse Rate 84 85 Pulse Rate [Lying] Pulse Rate [Sitting (for 1 minute prior to obtaining)] Pulse Rate [Standing (for 1 minute prior to obtaining)] Respiratory Rate 20 H 24 H Respiratory Pattern Normal Blood Pressure 117/64 110/63 Blood Pressure [Lying] Blood Pressure [Sitting (for 1 minute prior to obtaining)] Blood Pressure [Standing (for 1 minute prior to obtaining)] Blood Pressure Mean 81 78 Blood Pressure Mean [Lying] Blood Pressure Mean [Sitting (for 1 minute prior to obtaining)] Blood Pressure Mean [Standing (for 1 minute prior to obtaining)] Pulse Ox 95 100 Oxygen Delivery Method Room Air Room Air 03/18/25 19:23 03/18/25 20:00 03/18/25 21:00 Temperature Temperature Source Pulse Rate 75 76 Pulse Rate [Lying] 79 Pulse Rate [Sitting (for 1 minute prior to obtaining)] 78 Pulse Rate [Standing (for 1 minute prior to obtaining)] 130 H Respiratory Rate 13 15 Respiratory Pattern Blood Pressure 94/65 110/53 L Blood Pressure [Lying] 114/61 Blood Pressure [Sitting (for 1 minute prior to obtaining)] 101/63 Blood Pressure [Standing (for 1 minute prior to obtaining)] 73/51 L Blood Pressure Mean 74 72 Blood Pressure Mean [Lying] 78 Blood Pressure Mean [Sitting (for 1 minute prior to obtaining)] 75 Blood Pressure Mean [Standing (for 1 minute prior to obtaining)] 58 Pulse Ox 98 97 Oxygen Delivery Method Room Air Room Air Weight Weight: 365 lb 1.368 oz Body Mass Index (BMI) 46.8 Physical Exam Const alert, oriented x3 and no apparent distress Constitutional Narrative: class III obesity HEENT normocephalic, head/scalp atraumatic, moist oral mucous membranes and oropharynxnormal Mouth: oral and palatal mucosa normal Eyes PERRL, EOMs intact bilaterally and conjunctivae normal Neck supple and no JVD Resp normal respiratory effort, no retractions, no use of accessory muscles and clearto auscultation bilaterally Cardio regular rate, regular rhythm, S1 normal heart sound, S2 normal heart sound and no murmurs GI normal to inspection, nondistended, normoactive bowel sounds, soft to palpation,non-tender and non-distended Extremity normal to inspection, full ROM and no clubbing, cyanosis or edema Neuro oriented x3, moves all extremities and no focal motor deficits Sensorium / Orientation: awake and alert Motor Exam: strength 5/5 throughout Results Lab / Micro Data 03/19/25 04:36 03/19/25 04:36 Labs: Laboratory Results - last 24 hr 03/18/25 18:34: WBC 10.8, RBC 3.60 L, Hgb 11.1 L, Hct 34.1 L, MCV 94.7 H, MCH 30.8, MCHC 32.6, RDW Std Deviation 45.5 H, RDW Coeff of Sarah 13.2, Plt Count 245,MPV 12.3 H, Immature Gran % (Auto) 0.300, Neut % (Auto) 66.1, Lymph % (Auto) 18.6 L, [place] % (Auto) 11.3 H, Eos % (Auto) 3.1, Baso % (Auto) 0.6, Absolute Neuts (auto) 7.1, Absolute Lymphs (auto) 2.00, Nucleated RBC % 0, D-Dimer Quant (PE/DVT) < 0.27 L, Sodium 138, Potassium 5.0, Chloride 99, Carbon Dioxide 30.2, Anion Gap 9, BUN 69 H, Creatinine 1.70 H, Estim Creat Clear Calc 77.42, Est GFR (MDRD) Non-Af 46 L, BUN/Creatinine Ratio 40.4 H, Glucose 180 H, Calcium 9.5, NT pro BNP II 128 Imaging Radiology Impression Chest X-Ray 03/18/25 19:35 IMPRESSION: Elevated right hemidiaphragm, likely with overlying atelectasis. Unchanged. Reading Location: [id number] Assessment & Plan Assessment/Plan (1) Orthostatic hypotension: (2) Acute upper gastrointestinal bleeding: PLAN: Plan #Syncope likely due to acute GI bleed * Patient admitted with complaint of dizziness and lightheadedness. The symptoms were worsened when he got up from a sitting position. He also had some episodes of syncope. * Hemoglobin noted to have dropped from 12.72 days ago to 11.1 today. His baseline is usually around 13-14. * Stool for occult blood and was positive. He is on Eliquis. * Admit to [facility]. Hold Eliquis. Started on IV pantoprazole drip in the ED after being given a bolus. Will continue this. * Keep n.p.o. for now. Hydrate with IV fluid normal saline at 125 cc/h. Consult gastroenterology. * Consult PT OT. Fall precautions. Check orthostatics. * Hold NSAIDs-toradol and celebrex * #BHAVYA: Creatinine is 1.7 with a baseline creatinine of around 1.4. Likely due toGI bleed. Will hydrate with IV fluids and expect will improve. #UTI: urinalysis showed 2+ bacteria. Will get urine cultures. Start on IV ceftriaxone. #Hyperlipidemia: On statin #Depression: Bupropion and duloxetine #Type 2 diabetes mellitus: Hold glimepiride and metformin. Insulin sliding scale. Accu-Cheks ACHS. #Hypothyroidism: On Synthroid #Hypertension: On metoprolol and spironolactone #BPH: On Flomax DVT prophylaxis: SCDs in light of GI bleed CODE STATUS: full code * Patient and family counseled extensively about different types of CODE STATUS including full code, DNR CCA and DNR CCA. * Patient elects to be full code. * Total [id number] time 16 minutes. Charges/Coding Visit Charges Inpatient E&M: 52706 Init Hosp L3 Procedures Hospitalists Procedures: 65012 Advncd Care Plan 30 Min 03/19/25 0657 <Electronically signed by Nuzhat Cutler MD> Cosigner Signature (if applicable): CC: BRUSH WASHER-C Jenny Live; Dr. Nuzhat Cutler MD~ Signed [facility] Work Phone: [phone]) 489-578410-16-2025 Discharge summary Author Scott Nevarez [facility] Note Date/Time March 18, 2025 1 1:44pm [facility] Medical Records Department [address] [place] [address] Emergency Department Summary 03/18/25 MR#: [id number] Acct: [id number] Name: JAME WALLACE Rep #:[id number] : 1965 59 From: Scott Sandhu PCP: DAVID Marina Status:ADM IN Location: [address] History of Present Illness Chief Complaint: Syncope Informant: patient Onset/Context/Timing Onset: Weeks (2) Timing: Intermittent Quality: Lightheaded, spinning Location: Generalized Worsened by: Standing up Relieved by: Sitting down Narrative Narrative: Patient presents with syncopal episodes that have been intermittent over the past 2 weeks. Patient states he gets dizzy when he stands. Patient states he felt better when he sits down. Patient states that prior to syncopal episodes, he gets some tinnitus and spinning sensation. Patient states his face feels flushed. Patient admits to some blurry vision at times. Patient denies any chest pain or palpitations. Patient denies any shortness of breath or cough. Patient denies any nausea or vomiting. Patient denies any diarrhea, melena, or hematochezia. [facility] Medical History Diabetes Chronic pain Kidney stones [...] capsule 0.4 mg PO DAILY 03/06/2512/26 History cephalexin 500 mg capsule 500 mg PO Q6H #28 caps 03/11 Unknown Rx oxycodone 5 mg tablet 5 mg PO Q6H PRN pain 7 days #20 03/11/25 Unknown Rx tabs phenazopyridine 100 mg tablet 100 mg PO TID #20 tabs 1 Unknown Rx (Pyridium) spironolactone 25 mg tablet 25 mg PO DAILY #30 tabs Unknown Rx Allergy/AdvReac Type Severity Reaction Status Date / Time No Known Allergies Allergy Verified 03/18/25 18:06 Family History Other Esophageal cancer FH: ovarian cancer Surgical History History of surgery History of foot surgery History of colonoscopy Lump of skin of back History of colectomy History of appendectomy History of cholecystectomy Social History household members: spouse Smoking Status: Never smoker ROS ROS ED Constitutional Constitutional ED: Denies chills or fever(s) Eyes Eyes: Reports blurry vision; Denies diplopia ENT ENT ED: Denies rhinorrhea or sore throat Cardiovascular Cardiovascular: Denies chest pain or palpitations Respiratory/Chest Respiratory/Chest: Denies cough or dyspnea Gastrointestinal Gastrointestinal: Denies abdominal pain, diarrhea, melena, nausea or vomiting Genitourinary Genitourinary ED: Denies dysuria or hematuria Musculoskeletal Musculoskeletal: Reports back pain and neck pain Integumentary Denies abscess or rash Neurologic Neurologic: Reports headache(s); Denies weakness Allergic/Immunologic Allergic/Immunologic ED: Denies mouth swelling or urticaria EXAM Physical Exam Const Vital Signs: 03/18/25 18:06 03/18/25 18:37 03/18/25 19:06 Temperature 97.2 F L Temperature Source Temporal Pulse Rate 84 85 Pulse Rate [Lying] Pulse Rate [Sitting (for 1 minute prior to obtaining)] Pulse Rate [Standing (for 1 minute prior to obtaining)] Respiratory Rate 20 H 24 H Respiratory Pattern Normal Blood Pressure 117/64 110/63 Blood Pressure [Lying] Blood Pressure [Sitting (for 1 minute prior to obtaining)] Blood Pressure [Standing (for 1 minute prior to obtaining)] Blood Pressure Mean 81 78 Blood Pressure Mean [Lying] Blood Pressure Mean [Sitting (for 1 minute prior to obtaining)] Blood Pressure Mean [Standing (for 1 minute prior to obtaining)] Pulse Ox 95 100 Oxygen Delivery Method Room Air Room Air 03/18/25 19:23 03/18/25 20:00 03/18/25 21:00 Temperature Temperature Source Pulse Rate 75 76 Pulse Rate [Lying] 79 Pulse Rate [Sitting (for 1 minute prior to obtaining)] 78 Pulse Rate [Standing (for 1 minute prior to obtaining)] 130 H Respiratory Rate 13 15 Respiratory Pattern Blood Pressure 94/65 110/53 L Blood Pressure [Lying] 114/61 Blood Pressure [Sitting (for 1 minute prior to obtaining)] 101/63 Blood Pressure [Standing (for 1 minute prior to obtaining)] 73/51 L Blood Pressure Mean 74 72 Blood Pressure Mean [Lying] 78 Blood Pressure Mean [Sitting (for 1 minute prior to obtaining)] 75 Blood Pressure Mean [Standing (for 1 minute prior to obtaining)] 58 Pulse Ox 98 97 Oxygen Delivery Method Room Air Room Air Positive well nourished and well developed General Appearance ED: well developed and NAD HEENT Reports moist mucous membranes Neck supple and no JVD Resp normal respiratory effort and clear to auscultation bilaterally Cardio regular rate and regular rhythm GI non-tender and non-distended Palpation: soft Neuro oriented x3, CN's II-XII intact bilaterally and no sensory deficits noted Sensorium / Orientation: alert Motor Exam: strength 5/5 throughout Psych mental status grossly normal MDM MDM MDM Narrative Medical decision making narrative: Differential diagnosis includes dehydration, electrolyte abnormality, pulmonary embolism, congestive heart failure, pneumonia, bronchitis, urinary tract infection, and anxiety. CBC will be obtained to assess for leukocytosis and anemia. Basic metabolic profile will be obtained to assess for electrolyte abnormality renal function. Urinalysis will be obtained to assess for urinary tract infection and hematuria. D-dimer will be obtained to assess for pulmonaryembolism. BNP will be obtained to assess for congestive heart failure. Chest x-ray will be obtained to assess for pneumonia, bronchitis, and congestive heartfailure. History & Record Review Additional record(s) reviewed:: Prior inpatient record, Prior ED visit and Priorlabs Lab Data Attestation: I reviewed the patient's lab results. Lab results narrative: CBC was reviewed. Hemoglobin was 11.1. Compared to results from 2 days ago, this has dropped from 12.7. Platelets were normal. White blood cell count was normal. D- dimer was reviewed and was less than 0.27. Basic metabolic profile was reviewed. BUN was elevated at 69 and creatinine was 1.7. BUN was increasedfrom previous result. Creatinine was essentially unchanged from previous result. Glucose was 180. This is consistent with previous results. BNP was reviewed and was 128. Labs: Laboratory Results - last 24 hr 03/18/25 18:34 WBC 10.8 RBC 3.60 L Hgb 11.1 L Hct 34.1 L MCV 94.7 H MCH 30.8 MCHC 32.6 RDW Std Deviation 45.5 H RDW Coeff of Sarah 13.2 Plt Count 245 MPV 12.3 H Immature Gran % (Auto) 0.300 Neut % (Auto) 66.1 Lymph % (Auto) 18.6 L [place] % (Auto) 11.3 H Eos % (Auto) 3.1 Baso % (Auto) 0.6 Absolute Neuts (auto) 7.1 Absolute Lymphs (auto) 2.00 Nucleated RBC % 0 D-Dimer Quant (PE/DVT) < 0.27 L Sodium 138 Potassium 5.0 Chloride 99 Carbon Dioxide 30.2 Anion Gap 9 BUN 69 H Creatinine 1.70 H Estim Creat Clear Calc 77.42 Est GFR (MDRD) Non-Af 46 L BUN/Creatinine Ratio 40.4 H Glucose 180 H Calcium 9.5 NT pro BNP II 128 Radiography Chest X-Ray - ED: 2 View, Read by ED Physician, Read by Radiologist and No AcuteDisease Diagnostic Testing: Clinical Impression(s) from Imaging Studies Chest X-Ray 03/18/25 19:35 IMPRESSION: Elevated right hemidiaphragm, likely with overlying atelectasis. Unchanged. Reading Location: [facility] PA and lateral chest x-ray was obtained. There are 2 views. On my independent interpretation, lung hawthorne are clear there is a chronically elevated right hemidiaphragm. There is normal cardiac silhouette. Bony thorax is normal. There is no acute process noted. Radiologist also interpreted the x-ray and agrees. Management Discussion w/another healthcare provider: Hospitalist (Dr. Cutler) and Hair Rooting Machine Operator(Dr. Galloway) Additional Tests and Interventions Additional Tests or Interventions: Due to the drop in hemoglobin, stool for occult blood was obtained. Treatment and Re-Evaluation :: Patient was given IV fluids. Patient was given a dose of Protonix here. Case was discussed with Dr. Galloway from gastroenterology. He recommended starting patient on a Protonix drip. This was ordered. Case was discussed with the hospitalist. She will admit the patient to her service. Patient understood andwas agreeable with the plan. All questions were answered. Discharge Plan Dx/Rx/DC Orders Clinical Impression: Acute upper gastrointestinal bleeding, Orthostatic hypotension, Dizziness Disposition Disposition: Acute Care [facility] What to do if you have Problems For any increased pain, shortness of breath, bleeding, nausea or vomiting, chestpain, or any unexpected problems, contact your Primary Care Provider. Call [facility] ([phone]) or report to the closest Emergency Room. Call 911 if necessary. 03/18/25 2344 <Electronically signed by Scott Nevarez DO> Cosigner Signature (if applicable): CC: BRUSH WASHER-[employer]ed Live ~ Signed [facility] Work Phone: [phone]) 274-447810-15-2025 Radiology Diagnostic study [facility]10-14-2025 [facility] Medical Records Department [address] [place] [address] Discharge Summary 03/17/25 1321 MR#: [id number] Acct: [id number] Name: JAME WALLACE Rep #: [id number] : 1965 59 From: Herbert Mane DO PCP: DAVID Marina Status:DIS IN [id number] Prov[facility] Date of Admission: 03/16/25 Date of Discharge: 03/17/25 Primary Care Physician: DAVID Marina Consultations 03/16/25 05:34 Consult: Cardiology Routine Consulting Provider: Stacey Khan [facility] Reason for Consult: AE CHF EMERGENT Consult: No MD Notified: Yes Date Notified: 03/16/25 Time Notified: 06:46 Method of Notification: Text Method of Consult:: In-Person Reason For Visit: AE CHF WITH RESPIRATORY INSUFFCIENCY Diagnosis Discharge Diagnosis (1) CHF exacerbation: Status: Chronic Code(s): I50.9 - Heart failure, unspecified Qualifiers: Heart failure type: unspecified Qualified Code(s): I50.9 - Heart failure, unspecified (2) Atrial fibrillation: Status: Inactive Code(s): I48.91 - Unspecified atrial fibrillation Qualifiers: Atrial fibrillation type: unspecified Qualified Code(s): I48.91 - Unspecified atrial fibrillation (3) Hypertension: Status: Inactive Code(s): I10 - Essential (primary) hypertension Qualifiers: Hypertension type: primary hypertension Qualified Code(s): I10 - Essential (primary) hypertension Plan 1. Orthostatic hypotension secondary to acute anemia from upper GI bleed (gastric ulcers)-patient's hemoglobin will be rechecked tomorrow morning, continue Protonix and Carafate #2 acute anemia secondary to acute upper GI bleed secondary to gastric ulcers- CBC will be rechecked tomorrow #3 paroxysmal [id number] will continue metoprolol, he is off Eliquis #4 gastric ulcers secondary to use of nonsteroidal anti-inflammatory agents- patient has been cautioned to remain off these medications #5 bacteriuria #6 hypothyroidism-patient is on Synthroid #7 chronic diastolic congestive heart failure-patient is stable at this time #8 gastric ulcers Medications at Discharge Home Medications prodigy #1 ea 03/02/18 fluticasone propionate 0.05 % topical cream (Cutivate) 1 applic topical QD-BID PRN allergic reaction #60 grams 11/05/20 albuterol sulfate 90 mcg/actuation aerosol inhaler (Ventolin HFA) 2 puff inhalation Q4H PRN sob #6.7 grams 08/22/24 bupropion HCl 100 mg tablet,12 hr sustained-release 100 mg PO BID #180 tabs 08/22/24 gabapentin 400 mg capsule 400 mg PO TID 90 days #270 caps 08/22/24 glimepiride 4 mg tablet 4 mg PO QAM #90 tabs 08/22/24 metformin 850 mg tablet 850 mg PO BID #180 tabs 08/22/24 metoprolol tartrate 37.5 mg tablet 37.5 mg PO BID #180 tabs 08/22/24 mirtazapine 15 mg tablet 7.5 mg (1/2 x 15 mg) PO QHS PRN sleep 90 days #90 tabs 08/22/24 pioglitazone 45 mg tablet 45 mg PO DAILY #90 tabs 08/22/24 tramadol 50 mg tablet 50 mg PO TID neuropathic pain #90 tabs 08/22/24 levothyroxine 75 mcg tablet (Euthyrox) 75 mcg PO QDAY #90 tabs 11/03/24 atorvastatin 40 mg tablet 40 mg PO QHS #90 tabs 11/27/24 ammonium lactate 12 % topical cream 1 applic topical PRN CRACKED HANDS 03/06/25 duloxetine 60 mg capsule,delayed release 60 mg PO QHS depression 03/06/25 tamsulosin 0.4 mg capsule 0.4 mg PO DAILY enlarged prostate 03/06/25 oxycodone 5 mg tablet 5 mg PO Q6H PRN pain 7 days #20 tabs 03/11/25 apixaban 5 mg tablet (Eliquis) 5 mg PO BID Afib 03/18/25 Held on 03/20/25. Instructions: Resume on 04/03/25. Hold your Eliquis for 2 weeks, then resume it at 5 mg twice a day furosemide 40 mg tablet 40 mg PO .qd CHF 03/18/25 magnesium oxide 250 mg PO DAILY supplement 03/18/25 multivitamin 1 tab PO DAILY supplement 03/18/25 ondansetron 4 mg disintegrating tablet 4 mg PO Q8H PRN PRN nausea 03/18/25 pantoprazole 40 mg tablet,delayed release (Protonix) 40 mg PO BID #60 tabs 03/20/25 spironolactone 25 mg tablet 12.5 mg (1/2 x 25 mg) PO DAILY #30 tabs 03/20/25 sucralfate 1 gram tablet 1 g PO TID #90 tabs 03/20/25 Hospital Course Operations None Procedures EGD Summary of Care Provided Minutes Spent on Discharge: 32 Hospital Course: This 59-year-old white male was seen in the emergency room at [facility] with complaints of lightheadedness and near syncope. He states the symptoms occur when he stands up, symptoms improved when he sits down. He also complained of several episodes of actual syncope. Patient was recently released from the hospital here after treatment for congestive heart failure. Workup in the emergency room showed 3+ bacteria in his urinalysis with elevated white cells and nitrites, hemoglobin was 11.1 which had declined from 12.7 on 03/16/2025. Stool for occult blood was positive. Patient was admitted to PCU and labs were monitored, he was seen in consultation by gastroenterology and underwent an EGD which (more content not included)... [facility]10-14-2025 Progress note Author Juvenal Cedillo [facility] Note Date/Time March 17, 2025 7 :36am [facility] Medical Records Department [address] [place] [address] Progress Note - Cardiology 03/17/25 0733 MR#: [id number] Acct: [id number] Name: JAME WALLACE Rep #:[id number] : 1965 59 From: Juvenal Cedillo MD PCP: DAVID Marina Status:ADM IN Location: [place] [address] Subjective Subjective Patient seen and evaluated. Appears to be doing much better at this time. Objective Data Vital Signs: Vital Signs Temp Pulse Resp BP Pulse Ox O2 Del Method O2 Flow Rate 97.9 F 66 16 121/73 H 94 Nasal Cannula 2 03/17/25 03:30 03/17/25 03:30 03/17/25 03:30 03/17/25 03:30 03/17/25 03:30 03/17/25 03:30 03/17/25 03:30 Oxygen Flow Rate (L/min) 2 Oxygen Delivery Method Nasal Cannula Weight: 365 lb 8.423 oz Body Mass Index (BMI) 46.9 Intake & Output: Intake and Output for Last 24 Hours 03/15/25 03/16/25 03/17/25 23:59 23:59 23:59 Intake Total 700 / 700 Output Total 1075 / 1725 1949 Balance -375 / -1025 -1949 / Lab / Micro Data 03/16/25 05:57 03/16/25 05:57 Labs: Laboratory Results - last 24 hr 03/16/25 05:57: Sodium 140, Potassium 4.4, Chloride 99, Carbon Dioxide 29.4, Anion Gap 12, BUN 29 H, Creatinine 1.63 H, Estim Creat Clear Calc 80.46, Est GFR(MDRD) Non-Af 49 L, BUN/Creatinine Ratio 18.0, Glucose 161 H, Calcium 9.1, Phosphorus 5.3 H, Magnesium 1.7, Total Bilirubin 0.35, AST 15, ALT 9, Alkaline Phosphatase 82, NT pro BNP II 966 H, Total Protein 6.5, Albumin 3.5, Globulin 2.9, Albumin/Globulin Ratio 1.2, Triglycerides 135, Cholesterol 125, LDL Cholesterol, Calc 59, VLDL Cholesterol 27, HDL Cholesterol 39 L, Cholesterol/HDLRatio 3.23, Vitamin B12 717, TSH 1.490 03/16/25 06:30: POC Glucose 147 H 03/16/25 07:47: Troponin T Hi Sens 2 Hr 26 H 03/16/25 09:06: Urine Color Yellow, Urine Clarity Sl. Cloudy, Urine pH 6.0, Ur Specific [place] 1.010, Urine Protein 30 H, Urine Glucose (UA) Normal, Urine Ketones Negative, Urine Occult Blood 250 H, Urine Nitrite Positive H, Urine Bilirubin Negative, Urine Urobilinogen 1 H, Ur Leukocyte Esterase 100 H, Urine RBC 50-100 SEEN, Urine WBC 10-25 SEEN, Ur Squamous Epith Cells 0-5 SEEN, Urine Bacteria 0 SEEN, Urine Mucus RARE 03/16/25 10:10: Troponin T Hi Sens 4Hr 28 H 03/16/25 11:53: POC Glucose 183 H 03/16/25 16:47: POC Glucose 218 H 03/16/25 21:29: POC Glucose 118 H 03/17/25 06:18: POC Glucose 150 H Rhythm Strip Rhythm Strip: Sinus Rhythm Cardiology Labs/Tests 03/16/25 05:57: Sodium 140, Potassium 4.4, Chloride 99, Carbon Dioxide 29.4, Anion Gap 12, BUN 29 H, Creatinine 1.63 H, Est GFR (MDRD) Non-Af 49 L, BUN/Creatinine Ratio 18.0, Glucose 161 H, Calcium 9.1, Phosphorus 5.3 H, Magnesium 1.7, Total Bilirubin 0.35, Triglycerides 135, Cholesterol 125, VLDL Cholesterol 27, HDL Cholesterol 39 L, Cholesterol/HDL Ratio 3.23 03/16/25 09:06: Urine Color Yellow, Urine Clarity Sl. Cloudy, Urine pH 6.0, Ur Specific [place] 1.010, Urine Protein 30 H, Urine Glucose (UA) Normal, Urine Ketones Negative, Urine Occult Blood 250 H, Urine Nitrite Positive H, Urine Bilirubin Negative, Urine Urobilinogen 1 H, Ur Leukocyte Esterase 100 H, Urine RBC 50-100 SEEN, Urine WBC 10-25 SEEN Rhythm: EKG: ECHO: Stress Test: Cardiac Cath: PCI: CT Surgery: Holter monitor: EPS: PPM: CXR: Chest CT Scan: Radiography Diagnostic Testing: Radiology Impression Echocardiogram 03/16/25 07:34 Interpretation Summary The left ventricular ejection fraction is 65 %. Normal LV size. Moderate concentric left ventricular hypertrophy. Mild (1+) eccentric aortic valve insufficiency. Contrast injection was performed. Ordering Physician: Juvenal Cedillo Referring Physician: JENNY LIVE Performed By: Wen Marie RCS Physical Exam Const alert, oriented x3 and no apparent distress Constitutional Narrative: Patient is morbidly obese but nontoxic in appearance. General Appearance: cooperative HEENT normocephalic, head/scalp atraumatic, hearing grossly normal bilaterally and moist oral mucous membranes Eyes PERRL, EOMs intact bilaterally and conjunctivae normal Neck no lymphadenopathy, supple and no JVD Resp normal respiratory effort, no retractions, no use of accessory muscles and clearto auscultation bilaterally Cardio regular rate and regular rhythm GI normal to inspection, nondistended, normoactive bowel sounds, soft to palpation,non-tender and non-distended GI Narrative: Morbidly obese. Extremity General Extremity: edema bilateral (trace) Skin Skin Narrative: Patient has no evidence of rash, abscess, wounds or jaundice. Neuro oriented x3, CN's II-XII intact bilaterally, moves all extremities and no focal motor deficits Sensorium / Orientation: awake, alert, oriented to person, oriented to place andoriented to time Speech: speech normal Psych affect normal Assessment & Plan Assessment/Plan (1) CHF exacerbation: QUALIFIERS: Heart failure type: unspecified Qualified Code(s): I50.9 - Heart failure, unspecified PLAN: He appears to have had a clinical exacerbation of his congestive heart failure however this appears to be mild. He is currently on no supplemental oxygen and is lying flat in bed. * Echocardiogram did demonstrate preserved left ventricular function. * Continue diuretics as p.o. today * Optimize beta-jared dose * Consider SGLT2 inhibitor (2) Atrial fibrillation: QUALIFIERS: Atrial fibrillation type: unspecified Qualified Code(s): I48.91 - Unspecified atrial fibrillation PLAN: He is in sinus rhythm at this particular time. It is not clear to me whether or how long he was in atrial fibrillation however he appears to have an elevated [id number] score and therefore we will continue him on the Eliquis for now. Echocardiogram performed demonstrated preserved left ventricular ejection fraction. (3) Hypertension: QUALIFIERS: Hypertension type: primary hypertension Qualified Code(s): I10 - Essential (primary) hypertension PLAN: His blood pressure appears to be under good control at this time I would not recommend that we make any changes. 03/17/25 0736 <Electronically signed by Juvenal Cedillo MD> Cosigner Signature (if applicable): CC: ~ Signed [facility] Work Phone: 1(470) 229-314710-13-2025 Progress note Author Herbert Mane [facility] Note Date/Time March 17, 2025 3 :04pm [facility] Medical Records Department [address] [place] [address] Progress Note - Hospitalist 03/16/251922 MR#: [id number] Acct: [id number] Name: JAME WALLACE Rep #:[id number] : 1965 59 From: Herbert Mane DO PCP: DAVID Marina Status:DIS IN Location: [place] [address] Reason for Visit Chief Complaint: SOB. Subjective Subjective Patient was seen and examined today, he was seen in consultation by cardiology today, he had an echocardiogram performed which showed a normal EF with some evidence of mild pulmonary hypertension. Patient's blood pressure was slightly low this afternoon and his evening Lasix dosage was held. Objective Data Objective Data Vital Signs: Vital Signs Temp Pulse Resp BP Pulse Ox O2 Del Method O2 Flow Rate 97 F L 64 18 91/59 L 94 Nasal Cannula 2 03/16/25 17:30 03/16/25 17:30 03/16/25 17:30 03/16/25 17:30 03/16/25 17:30 03/16/25 17:30 03/16/25 17:30 Oxygen Flow Rate (L/min) 2 Oxygen Delivery Method Nasal Cannula Weight: 164.6 kg Body Mass Index (BMI) 46.5 Intake & Output: Intake and Output for Last 24 Hours 03/14/25 03/15/25 03/16/25 23:59 23:59 23:59 Intake Total 700 / 700 Output Total 1075 / 1075 Balance -375 / -375 Lab / Micro Data 03/16/25 05:57 03/16/25 05:57 Labs: Laboratory Results - last 24 hr 03/16/25 05:57: WBC 7.7, RBC 4.13 L, Hgb 12.7 L, Hct 38.9 L, MCV 94.2 H, MCH 30.8, MCHC 32.6, RDW Std Deviation 45.9 H, RDW Coeff of Sarah 13.2, Plt Count 204,MPV 11.8, Immature Gran % (Auto) 0.400, Neut % (Auto) 56.7, Lymph % (Auto) 24.9,[place]oldt % (Auto) 13.3 H, Eos % (Auto) 4.3, Baso % (Auto) 0.4, Absolute Neuts (auto)4.4, Absolute Lymphs (auto) 1.93, Nucleated RBC % 0, Sodium 140, Potassium 4.4, Chloride 99, Carbon Dioxide 29.4, Anion Gap 12, BUN 29 H, Creatinine 1.63 H, Estim Creat Clear Calc 80.46, Est GFR (MDRD) Non-Af 49 L, BUN/Creatinine Ratio 18.0, Glucose 161 H, Hemoglobin A1c 7.9 H, Calcium 9.1, Phosphorus 5.3 H, Magnesium 1.7, Total Bilirubin 0.35, AST 15, ALT 9, Alkaline Phosphatase 82, Troponin T High Sens 27 H, NT pro BNP II 966 H, Total Protein 6.5, Albumin 3.5, Globulin 2.9, Albumin/Globulin Ratio 1.2, Triglycerides 135, Cholesterol 125, LDL Cholesterol, Calc 59, VLDL Cholesterol 27, HDL Cholesterol 39 L, Cholesterol/HDL Ratio 3.23, Vitamin B12 717, Serum Folate 22.00, TSH 1.490 03/16/25 07:47: Troponin T Hi Sens 2 Hr 26 H 03/16/25 09:06: Urine Color Yellow, Urine Clarity Sl. Cloudy, Urine pH 6.0, Ur Specific [place] 1.010, Urine Protein 30 H, Urine Glucose (UA) Normal, Urine Ketones Negative, Urine Occult Blood 250 H, Urine Nitrite Positive H, Urine Bilirubin Negative, Urine Urobilinogen 1 H, Ur Leukocyte Esterase 100 H, Urine RBC 50-100 SEEN, Urine WBC 10-25 SEEN, Ur Squamous Epith Cells 0-5 SEEN, Urine Bacteria 0 SEEN, Urine Mucus RARE 03/16/25 10:10: Troponin T Hi Sens 4Hr 28 H 03/16/25 11:53: POC Glucose 183 H Radiography Diagnostic Testing: Radiology Impression Chest X-Ray 03/16/25 06:19 IMPRESSION: There is elevation of the right hemidiaphragm which can indicate paralysis. There is cardiomegaly with mild central vascular congestion. [facility] 03/16/25 07:34 Interpretation Summary The left ventricular ejection fraction is 65 %. Normal LV size. Moderate concentric left ventricular hypertrophy. Mild (1+) eccentric aortic valve insufficiency. Contrast injection was performed. Ordering Physician: Juvenal Cedillo Referring Physician: JENNY LIVE Performed By: Wen Marie RCS Rhythm Strip Rhythm Strip: Sinus Rhythm Physical Exam Const alert, oriented x3, no apparent distress and healthy appearing General Appearance: cooperative, well kempt and well developed Orientation / Consciousness: awake, oriented to person, oriented to place and oriented to time HEENT normocephalic and moist oral mucous membranes Eyes PERRL, EOMs intact bilaterally and conjunctivae normal Neck supple, no JVD, thyroid normal and no carotid bruits General: trachea midline Resp normal respiratory effort, no retractions, no use of accessory muscles and clearto auscultation bilaterally Auscultation: Negative for rales, rhonchi or wheezes Cardio regular rate, regular rhythm, no murmurs, no rub and no gallops GI normal to inspection, nondistended, normoactive bowel sounds, soft to palpation,non-tender and non-distended Extremity no clubbing, cyanosis or edema Skin no rashes or lesions noted General Skin Exam: no breakdown Neuro oriented x3, CN's II-XII intact bilaterally, moves all extremities, no focal motor deficits and no sensory deficits noted Sensorium / Orientation: awake and alert Speech: speech normal Psych affect normal Assessment & Plan Assessment/Plan (1) CHF exacerbation: QUALIFIERS: Heart failure type: unspecified Qualified Code(s): I50.9 - Heart failure, unspecified PLAN: Plan 1. Exacerbation of diastolic congestive heart failure-patient will remain on diuretics per cardiology, echocardiogram showed a normal EF. #2 mild pulmonary hypertension-complicates care, management, recovery, and prognosis #3 type 2 diabetes-patient's blood sugars will be monitored, sliding scale insulin will be administered as needed #4 paroxysmal atrial fibrillation-patient is currently on Eliquis and metoprolol #5 hypothyroidism-patient is on Synthroid #6 chronic depression-patient is on Cymbalta and Wellbutrin #7 hyperlipidemia-patient is on atorvastatin Total clinical time spent by myself addressing the patient's medical issues, reviewing patient data, and collaborating with patient's care team: 35 minutes Charges/Coding Visit Charges Inpatient E&M: 45341 Subs Hosp L2 03/19/25 0757 <Electronically signed by Herbert Mane DO> Cosigner Signature (if applicable): CC: ~ Signed [facility] Work Phone: 1([phone]) 610-636110-13-2025 Consult note Author Juvenal Cedillo [facility] Note Date/Time March 16, 2025 7 :34am [facility] Medical Records Department [address] [place] [address] Consultation - Cardiology 03/16/25723 MR#: [id number] Acct: [id number] Name: JAME WALLACE Rep #:[id number] : 1965 59 From: Juvenal Cedillo MD PCP: DAVID Marina Status:ADM IN Location: [place] [address] Assessment & Plan Assessment/Plan (1) CHF exacerbation: QUALIFIERS: Heart [...] however he appears to have an elevated [id number] score and therefore we will continue him [...] M who presents as a transfer from [facility]. The patient was apparently on admission here recently and underwent lithotripsy and stent placement for kidney stones. He has a history of hypertension recently diagnosed congestive heart failure hyperlipidemia hypothyroidism, morbid obesity. He also has a history of diabetes with diabetic neuropathy. He presented to the outside hospital with the above symptomatology and requested tab transferred over here. He says that his symptoms had [facility] [place] but his insurance was not covered for [...] on no supplemental oxygen. His physical exam isunremarkable other than mild pedal edema and his electrocardiogram demonstrates sinus rhythm with a right bundle branch block and a rate of 58 bpm. [facility] Medical History Diabetes Chronic pain Kidney stones [...] capsule 0.4 mg PO DAILY 03/06/2512/26 History cephalexin 500 mg capsule 500 mg PO Q6H #28 caps 03/11 Unknown Rx oxycodone 5 mg tablet 5 mg PO Q6H PRN pain 7 days #20 03/11/25 Unknown Rx tabs phenazopyridine 100 mg tablet 100 mg PO TID #20 tabs 1 Unknown Rx (Pyridium) Allergy/AdvReac Type Severity Reaction Status Date / Time No Known Allergies Allergy Verified 03/11/25 08:02 Family History Other Esophageal cancer FH: ovarian cancer Surgical History History of surgery History of foot surgery History of colonoscopy Lump of skin of back History of colectomy History of appendectomy History of cholecystectomy Social History Smoking Status: Never smoker ROS Constitutional Constitutional: Denies fever(s) or weight loss Eyes Eyes: Reports systems reviewed and no addt'l complaints, except as documented ENT HEENT: Reports systems reviewed and no addt'l complaints, except as documented Cardiovascular Cardiovascular: Reports dyspnea on exertion; Denies chest pain at rest, chest pain with activity, dyspnea at rest, edema, palpitations or paroxysmal nocturnaldyspnea Respiratory/Chest Respiratory/Chest: Denies dyspnea on exertion, productive cough, shortness of breath at rest or shortness of breath with exertion Gastrointestinal Gastrointestinal: Denies change in bowel habits, nausea, vomiting or weight changes Genitourinary Genitourinary: Denies difficulty urinating Musculoskeletal Musculoskeletal: Denies joint stiffness or muscle weakness Integumentary Integumentary: Denies lesions Neurologic Neurologic: Denies dizziness or syncope Psychiatric Psychiatric: Denies anxiety Endocrine Endocrinology: Denies excessive sweating or fatigue Hematologic/Lymphatic Hematologic/Lymphatic: Denies anemia Allergic/Immunologic Allergic/Immunologic: Denies seasonal rhinorrhea Physical Exam Const alert, oriented x3 and no apparent distress Constitutional Narrative: Patient is morbidly obese but nontoxic in appearance. General Appearance: cooperative HEENT normocephalic, head/scalp atraumatic, hearing grossly normal bilaterally and moist oral mucous membranes Eyes PERRL, EOMs intact bilaterally and conjunctivae normal Neck no lymphadenopathy, supple and no JVD Resp normal respiratory effort, no retractions, no use of accessory muscles and clearto auscultation bilaterally Cardio regular rate and regular rhythm GI normal to inspection, nondistended, normoactive bowel sounds, soft to palpation,non-tender and non-distended GI Narrative: Morbidly obese. Extremity General Extremity: edema bilateral (trace) Skin Skin Narrative: Patient has no evidence of rash, abscess, wounds or jaundice. Neuro oriented x3, CN's II-XII intact bilaterally, moves all extremities and no focal motor deficits Sensorium / Orientation: awake, alert, oriented to person, oriented to place andoriented to time Speech: speech normal Psych affect normal Objective Data Vital Signs: Vital Signs Temp Pulse Resp BP Pulse Ox O2 Del Method O2 Flow Rate 96 F L 64 18 127/73 H 97 Nasal Cannula 2 03/16/25 05:26 03/16/25 05:26 03/16/25 05:26 03/16/25 05:26 03/16/25 05:26 03/16/25 05:35 03/16/25 05:35 Oxygen Flow Rate (L/min) 2 Oxygen Delivery Method Nasal Cannula Weight: 362 lb 14.094 oz Body Mass Index (BMI) 46.5 Lab / Micro Data 03/16/25 05:57 03/16/25 05:57 Labs: Laboratory Results - last 24 hr 03/16/25 05:57: WBC 7.7, RBC 4.13 L, Hgb 12.7 L, Hct 38.9 L, MCV 94.2 H, MCH 30.8, MCHC 32.6, RDW Std Deviation 45.9 H, RDW Coeff of Sarah 13.2, Plt Count 204,MPV 11.8, Immature Gran % (Auto) 0.400, Neut % (Auto) 56.7, Lymph % (Auto) 24.9,[place]umboldt % (Auto) 13.3 H, Eos % (Auto) 4.3, Baso % (Auto) 0.4, Absolute Neuts (auto)4.4, Absolute Lymphs (auto) 1.93, Nucleated RBC % 0, Hemoglobin A1c 7.9 H, Troponin T High Sens 27 H, Serum Folate 22.00 Rhythm Strip Rhythm Strip: Sinus Rhythm Cardiology Labs/Tests 03/16/25 05:57: WBC 7.7, RBC 4.13 L, Hgb 12.7 L, Hct 38.9 L, MCV 94.2 H, MCH 30.8, MCHC 32.6, Plt Count 204, MPV 11.8, Immature Gran % (Auto) 0.400, Neut % (Auto) 56.7, Lymph % (Auto) 24.9, [place]oldt % (Auto) 13.3 H, Eos % (Auto) 4.3, Baso %(Auto) 0.4, Absolute Neuts (auto) 4.4, Nucleated RBC % 0, Hemoglobin A1c 7.9 H Rhythm: EKG: ECHO: Stress Test: Cardiac Cath: PCI: CT Surgery: Holter monitor: EPS: PPM: CXR: Chest CT Scan: Radiography Diagnostic Testing: Radiology Impression Chest X-Ray 03/16/25 06:19 IMPRESSION: There is elevation of the right hemidiaphragm which can indicate paralysis. There is cardiomegaly with mild central vascular congestion. Reading Location: [facility] Risk Score for UA/STEMI Assesmment (YES = 1) Risk Stratification Applicable: No 03/16/25 0734 <Electronically signed by Juvenal Cedillo MD> Cosigner Signature (if applicable): CC: DAVID Live~ Signed [facility] Work Phone: 1(466) 241-920210-13-2025 History and physical note Author Jame Guzman [facility] Note Date/Time March 16, 2025 7 :07am [facility] Medical Records Department [address] [place] [address] H&P Exam - Hospitalist 03/16/25 0539 MR#: [id number] Acct: [id number] Name: JAME WALLACE A Rep #:[id number] : 1965 59 From: Jame Hammer o PCP: DAVID Marina Status:ADM IN Location: [place] [address] HPI - General General Date of Admission: 03/16/25 Date of Service: 03/16/25 Chief Complaint: SOB. HPI Narrative JAME CORRIGANTAMELA, is a 59 M with a past medical history of essential hypertension; on amlodipine and metoprolol twice daily, recently diagnosed CHF; on furosemide, hyperlipidemia; on atorvastatin, hypothyroidism; on levothyroxine, morbid (class III) obesity; with BMI of 46.6 this admission, ADDY,DM-2; of unknown control on metformin twice daily, pioglitazone and glimepiride,diabetic neuropathy; on gabapentin 3 times daily plus as needed tramadol 3 timesdaily, recently diagnosed paroxysmal atrial fibrillation; on apixaban [...] gout; currently not on treatment, RA, OA; withchronic pain on oxycodone every 6 hours as needed and recently diagnosed Right renal calculus; s/p double-J stent placement by Dr. Wiggins on March 11, 2025 who was transferred by patient's request from [facility] for ongoing treatment of recently diagnosed AE CHF; of uncertain type with BNP of ~1,600. Mr. Wallace reports his symptoms began ~3 weeks prior to admission when he wasfirst diagnosed with AE CHF while at another local hospital ([place]) with persistent dyspnea on exertion since that time that has worsened causing him to go to [facility] as he was not covered by his [...] 2L NC with patient admitted to the [facility] ongoing care for stated is expected to extend beyond 2 midnights. [facility] Medical History (Updated 03/16/25 @ 06:52 by [...] 40 mg tablet 40 mg PO DAILY 03/06/25 10/12/26 History ketorolac 10 mg tablet 10 mg PO 4X/DAY PRN PRN mode rate 03/06/25 03/10/25 History pain meclizine 12.5 mg tablet 12.5 mg PO TID PRN vertigo 1 Unknown History tamsulosin 0.4 mg capsule 0.4 mg PO DAILY 03/06/2512/26 History cephalexin 500 mg capsule 500 mg PO Q6H #28 caps 03/11 Unknown Rx oxycodone 5 mg tablet 5 mg PO Q6H PRN pain 7 days #20 03/11/25 Unknown Rx tabs phenazopyridine 100 mg tablet 100 mg PO TID #20 tabs 1 Unknown Rx (Pyridium) Allergy/AdvReac Type Severity Reaction Status Date / Time No Known Allergies Allergy Verified 03/11/25 08:02 Family History Other Esophageal cancer FH: ovarian cancer Surgical History History of surgery History of foot surgery History of colonoscopy Lump of skin of back History of colectomy History of appendectomy History of cholecystectomy Social History Smoking Status: Never smoker ROS ROS Narrative Review of Systems: Constitutional: Patient denies fever or chills. Eyes: Patient denies changes in vision or discharge from eyes. ENT: Patient denies runny nose, sore throat or ear pain. Resp: Patient admits to dyspnea on exertion and progressive shortness of breath at rest. CV: Patient denies chest pain, palpitations or heart racing but he does admit tolower extremity edema. GI: Patient denies abdominal pain, nausea, vomiting, diarrhea or constipation. : Patient denies dysuria or hematuria. MSK: Patient denies arthralgias or myalgias. Skin: Patient denies rash, abscess, wounds or jaundice. Psych: Patient denies symptoms of uncontrolled depression or anxiety. Neuro: Patient denies headache, paresthesias or focal neurologic deficits. Hematology: Patient admits to easy bleeding and bruisability on apixaban. Endocrinology: Patient denies polyuria, polydipsia, polyphagia or heat/cold intolerance. 14 point ROS otherwise negative except for positives noted above in HPI. Vital Signs Vital Signs Vital Signs: 03/16/25 05:26 03/16/25 05:35 Temperature 96 F L Temperature Source Temporal Pulse Rate 64 Respiratory Rate 18 Respiratory Effort Normal Non-Labored Respiratory Depth Normal Respiratory Pattern Normal Blood Pressure 127/73 H Blood Pressure Mean 91 Pulse Ox 97 Oxygen Delivery Method Nasal Cannula Nasal Cannula Oxygen Flow Rate (L/min) 3 2 Weight Weight: 362 lb 14.094 oz Body Mass Index (BMI) 46.5 Physical Exam Const alert, oriented x3 and no apparent distress Constitutional Narrative: Patient is morbidly obese but nontoxic in appearance. General Appearance: cooperative HEENT normocephalic, head/scalp atraumatic, hearing grossly normal bilaterally and moist oral mucous membranes Eyes PERRL, EOMs intact bilaterally and conjunctivae normal Neck no lymphadenopathy, supple and no JVD Resp normal respiratory effort, no retractions, no use of accessory muscles and clearto auscultation bilaterally Cardio regular rate and regular rhythm GI normal to inspection, nondistended, normoactive bowel sounds, soft to palpation,non-tender and non-distended GI Narrative: Morbidly obese. Extremity Extremity Narrative: ~2+ bilateral lower symmetrical extremity pitting edema. Skin Skin Narrative: Patient has no evidence of rash, abscess, wounds or jaundice. Neuro oriented x3, CN's II-XII intact bilaterally, moves all extremities and no focal motor deficits Sensorium / Orientation: awake, alert, oriented to person, oriented to place andoriented to time Speech: speech normal Psych affect normal Results Medical Records Data Attestation: I reviewed the patient's medical records Lab / Micro Data Attestation: I reviewed the patient's lab results. 03/16/25 05:57 03/16/25 05:57 Assessment & Plan Assessment/Plan (1) CHF exacerbation: QUALIFIERS: Heart failure type: unspecified Qualified Code(s): I50.9 - Heart failure, unspecified (2) Respiratory insufficiency: (3) Atrial fibrillation: QUALIFIERS: Atrial fibrillation type: unspecified Qualified Code(s): I48.91 - Unspecified atrial fibrillation (4) Chronic anticoagulation: (5) Morbid obesity with BMI of 45.0-49.9, adult: (6) ADDY (obstructive sleep apnea): (7) Diaphragm dysfunction: PLAN: Plan 1. AE CHF; of uncertain type - Admit to PCU. Continue furosemide BID plus supplemental KCl and magnesium. PCU hot metal charger asked to obtain records from outside hospital to obtain recent echocardiogram results. Serialize troponin. Check CXR and NT pro-BNP II. Finally, we will consult [facility] to see this patient on rounds in the a.m. for further recommendations with help appreciated in advance. 2. Acute Respiratory Insufficiency requiring 2L NC due to #1 - Wean supplemental oxygen as tolerated. 3. Recently diagnosed PAF; on apixaban complicating #1 & #2 - Continue apixabanas before. 4. Morbid (class III) obesity; with BMI of 46.6 this admission plus ADDY with Diaphragmatic Dysfunction compounding #1 - #3 - Weight loss will be recommended. Check TSH. Give nocturnal CPAP. This complicates his case and may hamper recovery. 5. Recently diagnosed Right renal calculus; s/p double-J stent placement by on March 11, 2025 - Stable with stent in good position on recent CT. 6. Essential hypertension; on amlodipine and metoprolol twice daily - Maintain home regimen. 7. Hyperlipidemia; on atorvastatin - Resume statin and check Lipid Profile. 8. Hypothyroidism; on levothyroxine - Continue levothyroxine and check TSH. 9. DM-2; of unknown control on metformin twice daily, pioglitazone and glimepiride - Hold oral hypoglycemic medications while inpatient. ADA/cardiac diet with FSBS q. AC/HS plus SSI. Check HgbA1c to objectively assess quality ofdiabetic control. 10. Diabetic neuropathy; on gabapentin 3 times daily plus as needed tramadol 3 times daily - Maintain gabapentin as previous but hold tramadol in light of oxycodone as outlined in #26. 11. RLS; on mirtazapine nightly - Present therapy to continue. 12. Migraine headaches; on rimegepant prn - Continue rimegepant as previous. 13. History of vertigo; on meclizine as needed - Resume prn meclizine if vertigo symptoms develop. 14. BPH; on tamsulosin - Continue tamsulosin. 15. History of COVID-19 - Noted. 16. History of MRSA - Noted. 17. History of Dupuytren's fibromatosis - Noted. 18. History of diverticulitis - Stable with no active complaints related to this issue at this time. 19. History of colectomy - Noted. 20. History of appendectomy - Noted. 21. History of cholecystectomy - Noted. 22. History of basal cell carcinoma; s/p excision - Noted. 23. Depression; on bupropion twice daily - Continue bupropion as before. 24. History of gout; currently not on treatment - Stable with no evidence of acute flare at this time. 25. RA - Noted. 26. OA; with chronic pain on oxycodone every 6 hours as needed - Give acetaminophen prn for kyzt-[id number]-gfaqorxc (level 1-5/10) pain or fever. Give oxycodone prn for severe (level 6-10/10) pain. 27. DVT prophylaxis - Patient on apixaban for #3 which will be continued. Total time: Approximately (but not less than) 75 minutes. Charges/Coding Visit Charges Inpatient E&M: 97140 Init Hosp L3 03/16/25 0707 <Electronically signed by Jame Bashir DO> Cosigner Signature (if applicable): CC: DAVID Live; Dr. Jame Bashir DO~ Signed [facility] Work Phone: 1(390) 949-208310-13-2025 Evaluation note* Diagnosis Onset Date Resolution Status Admit Date CHF exacerbation chronic March 16, 2025 5:37am Atrial fibrillation inactive Octob er 2024 5:37am Chronic anticoagulation inactive O ctober 2024 5:37am Diaphragm dysfunction inactive Mar anjum 2024 5:37am Hypertension inactive March 5:37am Morbid obesity with BMI of 45.0-49.9, adult inactive March 16, 2 025 5:37am ADDY (obstructive sleep apnea) inacti ve March 16, 2025 5:37am Respiratory insufficiency inactive March 16, 2025 5:37am Orthostatic hypotension acute O ctober 2024 5:00pm Rib pain on left side acute Oct anjum 2024 5:00pm Syncopal episodes acute March 18, 2025 5:00pm Acute upper gastrointestinal bleeding inactive March 18 10:10pm Dizziness inactive March 18, 2025 10:10pm Orthostatic hypotension inactive O ctober 2024 10:10pm [facility] Work Phone: 1(370) 251-363910-13-2025 Radiology Diagnostic study [facility]10-08-2025 Consult note Author Roman Pichardo [facility] Note Date/Time March 11, 2025 9: 00am [facility] Medical Records Department [address] [place] [address] Pre-Anesthesia Evaluation 03/11/25854 MR#: [id number] Acct: [id number] Name: JAME WALLACE Rep #:[id number] : 1965 59 From: Roman Ross PCP: ELDON MarinaC Status:REG SDC Y Race: C Location: [place] [address] ASA Classification* ASA Classification ASA Classification: 2 [...] (R) Cysto,Ureteroscopy,Retro,Laser,Stent Anesthesia History Anesthesia History - csr technician: Anesthesia History - csr technician Hx Hospitalization Yes: 02/2025 CHF 03/06/25 14:04 [...] take am of surgery PONV PONV - csr technician: PONV - csr technician Female No 03/06/25 14:04 HX of Motion [...] 03/11/25 08:05 Respiratory Assessment Respiratory Assessment - csr technician: Respiratory Tract Infection Hx - csr technician Hx Respiratory Tract Infection No 03/06/25 14:04 STOP Sleep Apnea STOP Sleep Apnea - csr technician: STOP Sleep Apnea - csr technician Hx Hypertension Yes: PER PT, CONTROLLED ON [...] Tobacco Use History Tobacco Use History - csr technician: Tobacco Use History - csr technician Tobacco Use Smoking Status Never smoker 03/06/25 14:04 Hx Tobacco Use No 03/06/25 14:04 Years Smoking Packs Smoked per Day Smoking Cessation Date was within the last 15 years Hx Smoking Cessation Date Hx Smoking Cessation Counseling Hematologic Medial History Hematologic Hx - csr technician: Hematologic Medical Hx - statistical modeler Hx of Blood Transfusion No 03/06/25 14:04 [...] confused, unrespo /Reproduction History /Reproductive History - csr technician: /Reproductive Hx- csr technician Hx Now No 03/06/25 14:04 Gestational Age [...] MD Cosigner Signature: Date CC: ~ Signed [facility] Work Phone: 1(699) 429-754710-08-2025 Procedure note [facility] Medical Records Department [address] [place] [address] Operative Report 03/11/25 1037 MR#: [id number] Acct: [id number] Name: JAME WALLACE Rep #:[id number] : 1965 59 From: Edmundo Wiggins MD PCP: DAVID Marina Status:REG [facility] Location: [place] [address] Operative Report (Standard) Operative Information Date of Procedure: 03/11/25 Pre-Operative Diagnosis: Right kidney stone Post-Operative Diagnosis: The same Surgery/Procedure Performed: Cystoscopy right ureteroscopy laser lithotripsy of stone and right stent placement, right retrograde pyelogram call out operator: No Type of Anesthesia: General RN Documented [...] fashion within the bladder with a 21 Welsh rigid cystourethroscope cannulated the rightureter orifice with a Glidewire and a Pollick catheter performed a retrograde pyelogram, and then after this to put a wire up into the right kidneyover the wire I went in with a 8 Welsh flexible Olympus ureteroscope was able to get [...] 03/11/25 1039 Cosigner Signature (if applicable): CC: BRUSH WASHER-C Jenny Live; Dr. Edmundo Wiggins MD~ Signed [facility]10-08-2025 Discharge summary [facility] Medical Records Department [address] [place] [address] Instructions for Home/Discharge Instructions 03/11/25 1036 MR#: [id number] Acct: [id number] Name: JAME WALLACE Rep #:[id number] : 1965 59 From: Edmundo Wiggins [...] Up With: Edmundo Wiggins MD When: Call [phone] for an appointment Test Results: Test results from this visit will be discussed in further detail at your follow- up appointment, if applicable. Discharge Plan Admission Primary Reason for Your Visit: right kidney stone Attending Provider: Edmundo Wiggins Primary Care Provider: Jenny Live NP Instructions Print Language: Brazilian Discharge Orders/Prescriptions Prescriptions: New cephalexin 500 mg [...] - Active Staff, Urology] Jenny Live NP, BRUSH WASHER-C [Primary Care Provider, Family Practice] Disposition Disposition (needs filled in before D/C Order can be placed): Home, Self Care 03/11/25 1037Edmundo Wiggins MD CC: BRUSH WASHER-C Jenny Live ~ Signed [facility]10-08-2025 Consult note [facility] Medical Records Department [address] [place] [address] Pre-Anesthesia Evaluation 03/11/25 0855 MR#: [id number] Acct: [id number] Name: JAME WALLACE Rep #:[id number] : 1965 59 From: Roman Ross PCP: DAVID Marina Status:REG SDC Y Race: C Location: [place] [address] ASA Classification* ASA Classification ASA Classification: 2 [...] (R) Cysto,Ureteroscopy,Retro,Laser,Stent Anesthesia History Anesthesia History - csr technician: Anesthesia History - csr technician Hx Hospitalization Yes: 02/2025 CHF 03/06/25 14:04 [...] take am of surgery PONV PONV - csr technician: PONV - csr technician Female No 03/06/25 14:04 HX of Motion [...] 03/11/25 08:05 Respiratory Assessment Respiratory Assessment - csr technician: Respiratory Tract Infection Hx - csr technician Hx Respiratory Tract Infection No 03/06/25 14:04 STOP Sleep Apnea STOP Sleep Apnea - csr technician: STOP Sleep Apnea - csr technician Hx Hypertension Yes: PER PT, CONTROLLED ON [...] Tobacco Use History Tobacco Use History - csr technician: Tobacco Use History - csr technician Tobacco Use Smoking Status Never smoker 03/06/25 14:04 Hx Tobacco Use No 03/06/25 14:04 Years Smoking Packs Smoked per Day Smoking Cessation Date was within the last 15 years Hx Smoking Cessation Date Hx Smoking Cessation Counseling Hematologic Medial History Hematologic Hx - csr technician: Hematologic 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 [place] M.D., Mikey Ling M.D., Sarah Hassan M.D., Bony Hoffman M.D., Gita Day M.D.,Nirav Wang M.D., Timothy Malik M.D., Bari Meléndez M.D., Harshal Marie M.D., Nadir Phillips M.D., Kd Cruz, Lima Cole., N.P., & Raissa Gates [id number], [address], [phone] [place], [address] [place], [address] Return to Work Slip The above referenced patient may return to work on 03/02/25 Sincerely, [facility]09-23-2025 Telephone encounter Note* Telephone Encounter - Ivone Salmeron - 02/24/2025 9:48 AM EDT Hi, it hard stops me due to him being in er/express care at [facility] within 7 days for kidney stone. I can forward to the PSS. [id number] Miscellaneous Notes* Telephone Encounter - Ivone Salmeron - 02/24/2025 9:48 AM EDT Hi, it hard stops me due to him being in er/express care at [facility] within 7 days for kidney stone. I can forward to the PSS. * Telephone Encounter - Ivone Salmeron - 02/24/2025 9:30 AM EDT Patient's daughter called in, patient was supposed to have a procedure at [facility] but was denied and he could only come to [facility]. The kidney stone is very large. Please call patient to [facility]. Thank you. #[phone] documented in this [id number] NotePatient's daughter called in, patient was supposed to have a procedure at [facility] but was denied and he could only come to [facility]. The kidney stone is very large. Please call patient to set up care. Thank you. #[phone] [facility] [id number] Telephone encounter Note* Telephone Encounter - Ivone Salmeron - 02/24/2025 9:30 AM EDT Patient's daughter called in, patient was supposed to have a procedure at [facility] but was denied and he could only come to [facility]. The kidney stone is very large. Please call patient to setup care. Thank you. #[phone] [id number] NotePatient Education Material Cardiovascular Low Sodium Diet [...] vegetables, unless labeled sodium-free or low-sodium. ? Welsh fries, pizza, tacos, and other fast foods. ? Pickles, olives, ketchup, and other condiments, especially soy sauce, unless labeled sodium-free or low-sodium. Where can you learn more? Go to [email or web address]://www.[employer].net/patientEd Enter V843 in the search box to learn more about Low Sodium Diet (2,000 Milligram): Care Instructions. Current as of: February 09, 2021 Content Version: 13.3 ? Front[employer]. Care instructions adapted under license by your healthcare professional. If you have questions about a medical condition or this instruction, always ask your healthcare professional. [employer] disclaims any warranty or liability for your [...] are for the f (more content not included)...[facility]09-21-2025 SupriyaJAME WALLACE :1965 Registration Date:02/19/2025 Admission Information Shortness of breath weakness severe decreased exercise tolerance Admit Date/Time:02/20/2025 14:08 EDT Discharge Date 02/22/2025 Admitting Physician - LULA MONTOYA DO Attending Physician - JO AGEE, LULA Consulting Physician - OLIVER SEAMAN, BONY HASSAN MD, SARAH Primary Care Physician - JENNY LIVE All [...] rhythm, normal peripheral per (more content not included)...[facility]09-21-2025 Evaluation + Plan note Extracted from: Title:Progress/SOAP Note Author:VIRGINIA MONTOYA DO [facility] Date:02/22/25 Orders: POC Glucose, Blood, Collected Y/N, [...] Extracted from: Title:Progress/SOAP Note Author:VIRGINIA MONTOYA DO [facility] Date:02/21/25 Orders: PLATELET ONLY(PLATELET COUNT ONLY), ROUTINE, [...] Extracted from: Title:Progress/SOAP Note Author:VIRGINIA MONTOYA DO [facility] Date:02/20/25 Orders: metoprolol(Lopressor = Metoprolol Tartrate), 37.5 [...] values) WBC 7.8(FEB 19) Hgb L 12.3(FEB 19) Hct L 37.0(FEB 18) Plt 178(FEB 18) Na 143(FEB 19) K 4.0(FEB 19) CO2 H 33.0(FEB 19) Cl 102(FEB 19) Cr H 1.2(FEB 19) BUN 21(FEB 19) Glucose Random H 117(FEB 19) Ca 9.2(FEB 19). Plan R proximal ureteral [...] surgeon aware of current admission. Addendum by ORLANDO ROPER MD on February 20, 2025 10:20 EDT Exam / procedure done by: PA, BRUSH WASHER, reside nt under supervision of attending Physician. Extracted from: Title:Admission H & P Author:LULA MONTOYA DO Date:02/19/25 Orders: acetaminophen, 650 mg= 2 tabs, ORAL, [id number], PRN acetaminophen, 650 mg= 2 tabs, ORAL, Q3IIUDD, PRN acetaminophen, 650 mg= 2 tabs, ORAL, B1YNCPR, PRN acetaminophen-oxycodone(acetaminophen-oxycodone 325 mg-5 mg oral tablet = Percocet), 1 tabs, ORAL, H4JUMIH, PRN aspirin(Aspirin Low Dose), 81 mg= 1 tabs, ORAL, DAILY WITH BREAKFAST atorvastatin(Lipitor), 40 mg= 1 tabs, ORAL, DAILY buPROPion(Wellbutrin SR, Zyban (buPROPion SR)), 100 mg= 1 tabs, ORAL, BID celecoxib(CeleBREX), 200 mg= 1 caps, ORAL, BID ciprofloxacin = Cipro, 500 mg= 1 tabs, ORAL, [id number] DULoxetine(Cymbalta), 60 mg= 1 caps, ORAL, DAILY [...] BREAKFAST melatonin, 5 mg= 1 tabs, ORAL, QHS/[id number], PRN metFORMIN = Glucophage, 850 mg= 1 tabs, ORAL, BIDWM metoprolol(Lopressor = Metoprolol Tartrate), 37.5 mg= 1.5 tabs, ORAL, BID mirtazapine(Remeron), 7.5 mg= 1 tabs, ORAL, QHS multivitamin, 1 tabs, ORAL, DAILY naloxone = Narcan, 0.4 mg= 1 mL, IV Push, PRN, PRN ondansetron(ondansetron 4 mg oral tablet, disintegrating = Zofran), 4 mg= 1 tabs, ORAL, C1SOFQB, PRN pioglitazone(Actos), 45 mg= 3 tabs, ORAL, [...] Constant Order, Current ACLS Provider may, Initiate [employer] Advanced Cardiac Life support Algorithm per patient code status COMPMETA(CMP), ROUTINE, 02/19/2025 02:33:00 EDT Consult Physician(Physician Consult), 02/19/2025 02:33:00 EDT, ZARIA SEAMAN, Paolo VILLARREAL CHF Consult Physician(Physician Consult), 02/19/2025 02:33:00 EDT, OLIVER SEAMAN, BONY, 8mm ureteral stone Diet Order, 02/19/2025 02:28:00 EDT, Low Sodium Heart Healthy Level of Care Order, 02/19/2025 01:55:00 EDT, Medical Outpatient with Observation Services, LULA MONTOYA DO [facility] ONE TIME Task(If pt has Saline Lock), If pt has Saline Lock, 02/19/2025 02:22:00 EDT, or if on Telemetry, place orderset for "Saline Lock Peripheral with Saline Flush QShift and PRN" to display NS flushes on AUG, 02/19/2025 [...] EDT Request for Armband, 02/19/2025 06:51:00 EDT, [id number], Unable to scan Request for Bed Placement, [...] with all VS Weight, 02/20/2025 04:00:00 EDT, [id number] Acute congestive heart failure I need to [...] Date:02/27/2025 03:30:00 PM Scheduled Provider:LIMA COLE CNP Location:[place] [address] Appointment Type:Hospital Follow Up [facility] 09-21-2025 Progress note JAME WALLACE :1965 Registration [...] Inpatient acetaminophen, 650 mg= 2 tabs, ORAL, [id number], PRN acetaminophen, 650 mg= 2 tabs, ORAL, [id number], PRN acetaminophen, 650 mg= 2 tabs, ORAL, Z8TYYPZ, PRN acetaminophen-oxycodone(acetaminophen-oxycodone 325 mg-5 mg oral tablet = Percocet), 1 tabs, ORAL, U3BVKSG, PRN apixaban(Eliquis), 5 mg= 1 tabs, ORAL, ONCE aspirin(Aspirin Low Dose), 81 mg= 1 tabs, ORAL, DAILY WITH BREAKFAST atorvastatin(Lipitor), 40 mg= 1 tabs, ORAL, DAILY buPROPion(Wellbutrin SR, Zyban (buPROPion SR)), 100 mg= 1 tabs, ORAL, BID celecoxib(CeleBREX), 200 mg= 1 caps, ORAL, BID ciprofloxacin = Cipro, 500 mg= 1 tabs, ORAL, [id number] digoxin, 0.25 mg= 1 mL, IV Push, [...] BREAKFAST melatonin, 5 mg= 1 tabs, ORAL, QHS/[id number], PRN metFORMIN = Glucophage, 850 mg= 1 tabs, ORAL, BIDWM metoprolol(Lopressor = Metoprolol Tartrate), 5 mg= 5 mL, IV Push, [id number], PRN metoprolol(Lopressor = Metoprolol Tartrate), 50 mg= 1 tabs, ORAL, BID mirtazapine(Remeron), 7.5 mg= 1 tabs, ORAL, QHS multivitamin, 1 tabs, ORAL, DAILY naloxone = Narcan, 0.4 mg= 1 mL, IV Push, PRN, PRN ondansetron(ondansetron 4 mg oral tablet, disintegrating = Zofran), 4 mg= 1 tabs, ORAL, F4ATRBF, PRN tamsulosin(Flomax), 0.4 mg= 1 caps, ORAL, [...] care and therapy and treatment thank you [facility]09-21-2025 Progress note JAME WALLACE :1965 Registration [...] Radiology: CXR without infiltrate or effusion Labs [facility]09-20-2025 Progress note JAME WALLACE :1965 Registration Date:02/19/2025 [...] Inpatient acetaminophen, 650 mg= 2 tabs, ORAL, [id number], PRN acetaminophen, 650 mg= 2 tabs, ORAL, V8TQOIT, PRN acetaminophen, 650 mg= 2 tabs, ORAL, G2VRTQB, PRN acetaminophen-oxycodone(acetaminophen-oxycodone 325 mg-5 mg oral tablet = Percocet), 1 tabs, ORAL, A7BZGMU, PRN apixaban(Eliquis), 5 mg= 1 tabs, ORAL, ONCE aspirin(Aspirin Low Dose), 81 mg= 1 tabs, ORAL, DAILY WITH BREAKFAST atorvastatin(Lipitor), 40 mg= 1 tabs, ORAL, DAILY buPROPion(Wellbutrin SR, Zyban (buPROPion SR)), 100 mg= 1 tabs, ORAL, BID celecoxib(CeleBREX), 200 mg= 1 caps, ORAL, BID ciprofloxacin = Cipro, 500 mg= 1 tabs, ORAL, [id number] digoxin, 0.25 mg= 1 mL, IV Push, [...] BREAKFAST melatonin, 5 mg= 1 tabs, ORAL, QHS/[id number], PRN metFORMIN = Glucophage, 850 mg= 1 tabs, ORAL, BIDWM metoprolol(Lopressor = Metoprolol Tartrate), 5 mg= 5 mL, IV Push, F5NNYID, PRN metoprolol(Lopressor = Metoprolol Tartrate), 50 mg= 1 tabs, ORAL, BID mirtazapine(Remeron), 7.5 mg= 1 tabs, ORAL, QHS multivitamin, 1 tabs, ORAL, DAILY naloxone = Narcan, 0.4 mg= 1 mL, IV Push, PRN, PRN ondansetron(ondansetron 4 mg oral tablet, disintegrating = Zofran), 4 mg= 1 tabs, ORAL, Y1EOCSA, PRN tamsulosin(Flomax), 0.4 mg= 1 caps, ORAL, [...] we will continue with the same course [facility]09-20-2025 Hospital Discharge instructions Patient Education 02/21/2025 [...] low-sodium foods Buy foods that are labeled "unsalted" (no salt added), "sodium-free" (less than 5 mg of sodium per serving), or "low-sodium" (140 mg or less of sodium per serving). Foods labeled "reduced-sodium" and"light sodium" may still have too much sodium. Be [...] Canned vegetables, unless labeled sodium-free or low-sodium. Welsh fries, pizza, tacos, and other fast foods. Pickles, olives, ketchup, and other condiments, especially soy sauce, unless labeled sodium-free orlow-sodium. Where can you learn more? Go to [email or web address]/patientEd Enter V843 in the search box to learn more about "Low Sodium Diet (2,000 Milligram): Care Instructions." Current as of: February 09, 2021 Content Version: 13.3 [employer]. Care instructions adapted under license by your healthcare professional. If you have questions about a medical condition or this instruction, always ask your healthcare professional. [employer] disclaims any warranty or liability for your [...] Where can you learn more? Go to [email or web address].[email or web address]/patientEd Enter V137 in the search box to learn more about "Heart-Healthy Diet: Care Instructions." Current as of: February 09, 2021 Content Version: 13.3 [employer]. Care instructions adapted under license by your healthcare professional. If you have questions about a medical condition or this instruction, always ask your healthcare professional. [employer] disclaims any warranty or liability for your [...] Where can you learn more? Go to [email or web address]/patientEd Enter F350 in the search box to learn more about "Learning About Restricting Fluids When You Have Heart Failure." Current as of: June 13, 2021 Content Version: 13.3 [employer]. Care instructions adapted under license by your healthcare professional. If you have questions about a medical condition or this instruction, always ask your healthcare professional. [employer] disclaims any warranty or liability for your [...] a diuretic or other medicines. This includes ochu-nzb-hgpfbzh medicines. Side effects include: Nausea or vomiting. Confusion, changes in vision, a racing or slowed heartbeat, or dizziness. Call your doctor right away if you have any of these side effects. Where can you learn more? Go to [email or web address]/patientEd Enter F132 in the search box to learn more about "Medicines for Heart Failure: Care Instructions." Current as of: June 13, 2021 Content Version: 13.3 [employer]. Care instructions adapted under license by your healthcare professional. If you have questions about a medical condition or this instruction, always ask your healthcare professional. [employer] disclaims any warranty or liability for your [...] your doctor before you take any vitamins, vpye-srw-fvhvhyg drugs, or herbal products. Do not take [...] irregular heartbeat. After you call 911, [address] equipment operator may tell you to chew 1 [...] Where can you learn more? Go to [email or web address].[employer].net/patientEd Enter P052 in the search box to learn more about "Managing Other Conditions When You Have Heart Failure: Care Instructions." Current as of: June 13, 2021 Content Version: 13.3 [employer]. Care instructions adapted under license by your healthcare professional. If you have questions about a medical condition or this instruction, always ask your healthcare professional. [employer] disclaims any warranty or liability for your use of this information. Follow Up Care 02/18/2025 22:01:34 With:DANI ROPER, Urology Address: [address] [place] [address]- Business (1) When: Unknown Comments:The office will call you 02/23/2025 in the morning to schedule ESWL for Sunday or Sunday [facility]. Starting 02-23-2025 at MIDNIGHT nothing to eat or drink except medications. Do not take Aspirin or Eliquis until directed by Urology. With:LIMA COLE Address: [address] [place] [address]- Business (1) When:02/27/2025 15:30:00 With:Heart Failure Education ([facility]) Address: [address] - Cardiac Rehab [place]ement [place] [address]- Business (1) When:02/24/2025 13:00:00 Comments:Please CALL [phone] if unable to attend. IF PATIENT IS DISCHARGE TO A NURSING FACILITY OR [facility] CARE PLEASE DO NOT ATTEND. [facility] 09-20-2025 NoteEducation Pharmacy - Anticoagulation Entered On: 02/20/2025 16:22 EDT Performed On: 02/20/2025 16:21 EDT by Nelly Mendez RPh [facility] Anticoagulation Barriers to Learning : Other: [...] understanding Nelly Mendez RPh - [facility] on above:Order Comment: Request for pharmacy education by discern rule for patient ordered [id number] Note Education completed with the patient and the patient's ; the heart failure book and self care sheet given and reviewed. The patient stated that the heart failure diagnosis is new. The patient stated that he has a kidney stone that needs to be removed once the heart failure is treated. He plans to continue with [facility] for follow up and is aware [...] after voiding an to report to his cabin agent a weight gain of 2 or more pounds overnight or 5 or more pounds in one week. The patient stated that he has a scale and is agreeable to doing daily weights. Verbalized understanding of all education. [facility]09-18-2025 History and physical note JAME WALLACE :1965 Registration Date:02/19/2025 Chief Complaint Shortness of breath and volume overload History of Present Illness This is a 59-year-old with a history of congestive heart failure he has a right ureteral stone and he has a scheduled removal of it cystoscopy on Sunday however he showed up at the freestanding ER in [place] for due to volume overload shortness of [...] Orders: acetaminophen, 650 mg= 2 tabs, ORAL, U1QYPUS, PRN acetaminophen, 650 mg= 2 tabs, ORAL, H0JQFYO, PRN acetaminophen, 650 mg= 2 tabs, ORAL, B1NOXKU, PRN acetaminophen-oxycodone(acetaminophen-oxycodone 325 mg-5 mg oral tablet = Percocet), 1 tabs, ORAL, G9MNSOO, PRN aspirin(Aspirin Low Dose), 81 mg= 1 tabs, ORAL, DAILY WITH BREAKFAST atorvastatin(Lipitor), 40 mg= 1 tabs, ORAL, DAILY buPROPion(Wellbutrin SR, Zyban (buPROPion SR)), 100 mg= 1 tabs, ORAL, BID celecoxib(CeleBREX), 200 mg= 1 caps, ORAL, BID ciprofloxacin = Cipro, 500 mg= 1 tabs, ORAL, [id number] DULoxetine(Cymbalta), 60 mg= 1 caps, ORAL, DAILY [...] BREAKFAST melatonin, 5 mg= 1 tabs, ORAL, QHS/[id number], PRN metFORMIN = Glucophage, 850 mg= 1 tabs, ORAL, BIDWM metoprolol(Lopressor = Metoprolol Tartrate), 37.5 mg= 1.5 tabs, ORAL, BID mirtazapine(Remeron), 7.5 mg= 1 tabs, ORAL, QHS multivitamin, 1 tabs, ORAL, DAILY naloxone = Narcan, 0.4 mg= 1 mL, IV Push, PRN, PRN ondansetron(ondansetron 4 mg oral tablet, disintegrating = Zofran), 4 mg= 1 tabs, ORAL, E6QEQTB, PRN pioglitazone(Actos), 45 mg= 3 tabs, ORAL, [...] Constant Order, Current ACLS Provider may, Initiate [employer] Advanced Cardiac Life support Algorithm per patient code status COMPMETA(CMP), ROUTINE, 02/19/2025 02:33:00 EDT Consult Physician(Physician Consult), 02/19/2025 02:33:00 EDT, ZARIA SEAMAN, Paolo VILLARREAL CHF Consult Physician(Physician Consult), 02/19/2025 02:33:00 EDT, OLIVER SEAMAN, BONY, 8mm ureteral stone Diet Order, 02/19/2025 02:28:00 EDT, Low Sodium Heart Healthy Level of Care Order, 02/19/2025 01:55:00 EDT, Medical Outpatient with Observation Services, LULA JI [facility] ONE TIME Task(If pt has Saline Lock), If pt has Saline Lock, 02/19/2025 02:22:00 EDT, or if on Telemetry, place orderset for "Saline Lock Peripheral with Saline Flush QShift and PRN" to display NS flushes on AUG, 02/19/2025 [...] EDT Request for Armband, 02/19/2025 06:51:00 EDT, [id number], Unable to scan Request for Bed Placement, 02/19/2025 01:55:00 EDT, Medical, Outpatient with Observation Services, JO DO, LULA Telemetry, Reason for Telemetry Other - Add to Other Reason Box, New onset CHF, Constant Order, CM Telemetry Turn Cough Deep Breathe, 02/19/2025 02:46:00 EDT, Constant Order, Q2H Vital Signs, 02/19/2025 02:22:00 EDT, Constant Order, per unit routine, PRN, include Pulse Ox with all VS Weight, 02/20/2025 04:00:00 EDT, [id number] Acute congestive heart failure I need to [...] Inpatient acetaminophen, 650 mg= 2 tabs, ORAL, R5NBJZS, PRN acetaminophen, 650 mg= 2 tabs, ORAL, Q1PWRNX, PRN acetaminophen, 650 mg= 2 tabs, ORAL, Y8WZBRM, PRN acetaminophen-oxycodone(acetaminophen-oxycodone 325 mg-5 mg oral tablet = Percocet), 1 tabs, ORAL, O0GBQUU, PRN aspirin(Aspirin Low Dose), 81 mg= 1 tabs, ORAL, DAILY WITH BREAKFAST atorvastatin(Lipitor), 40 mg= 1 tabs, ORAL, DAILY buPROPion(Wellbutrin SR, Zyban (buPROPion SR)), 100 mg= 1 tabs, ORAL, BID celecoxib(CeleBREX), 200 mg= 1 caps, ORAL, BID ciprofloxacin = Cipro, 500 mg= 1 tabs, ORAL, [id number] DULoxetine(Cymbalta), 60 mg= 1 caps, ORAL, DAILY [...] BREAKFAST melatonin, 5 mg= 1 tabs, ORAL, QHS/[id number], PRN metFORMIN = Glucophage, 850 mg= 1 tabs, ORAL, BIDWM metoprolol(Lopressor = Metoprolol Tartrate), 37.5 mg= 1.5 tabs, ORAL, BID mirtazapine(Remeron), 7.5 mg= 1 tabs, ORAL, QHS multivitamin, 1 tabs, ORAL, DAILY naloxone = Narcan, 0.4 mg= 1 mL, IV Push, PRN, PRN ondansetron(ondansetron 4 mg oral tablet, disintegrating = Zofran), 4 mg= 1 tabs, ORAL, W9RFRLC, PRN perflutren(Definity), 2 mL, IV Push, PRN, PRN pioglitazone(Actos), 45 mg= 3 tabs, ORAL, DAILY sodium chloride(Saline Flush), 8 mL, IV Push, PRN, PRN tamsulosin(Flomax), 0.4 mg= 1 caps, ORAL, DAILY traMADol(Ultram), 50 mg= 1 tabs, ORAL, TID Home acetaminophen-oxycodone(Percocet 5 mg-325 mg oral tablet), 1 tabs, ORAL, L3PNNGB, PRN atorvastatin(Lipitor 40 mg oral tablet), 40 mg= 1 tabs, ORAL, DAILY buPROPion(Wellbutrin SR 100 mg/12 hours oral tablet, extended release), 100 mg= 1 tabs, ORAL, BID celecoxib(CeleBREX 200 mg oral capsule), 200 mg= 1 caps, ORAL, BID ciprofloxacin = Cipro(ciprofloxacin 500 mg oral tablet), 500 mg= 1 tabs, ORAL, [id number] DULoxetine(Cymbalta 60 mg oral delayed release capsule), [...] = Zofran), 4 mg= 1 tabs, ORAL, [id number], PRN pioglitazone(Actos 45 mg oral tablet), 45 mg= 1 tabs, ORAL, DAILY tamsulosin(Flomax 0.4 mg oral capsule), 0.4 mg= 1 caps, ORAL, DAILY traMADol(Ultram 50 mg oral tablet), 50 mg= 1 tabs, ORAL, TID vitamin A, 2400 mcg, ORAL, DAILY Allergies No Known Allergies Social History Alcohol - Denies Alcohol Use 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 The calculated GFRmay not accurately reflect renal status in patients >70 years, women, acutely ill hospitalized patients and patients with acute renal failure or known renal disease. The MDRD GFR formula is valid only for adults greater than 18 years of age." Note: Creatinine clearance (not GFR) should be used for drug dosing. Calculated result performed using the MDRD GFR equation GFR AA >60 02/19/2025 06:15 EDT Comments: GFR Calc, "Medical judgement is necessary to interpret GFR. The calculated GFR maynot accurately reflect renal status in patients >70 years, women, acutely ill hospitalized patients and patients with acute renal failure or known renal disease. The MDRD GFR formula is valid only for adults greater than 18 years of age." Note: Creatinine clearance (not GFR) should be [...] Lymph % 20.2 % 02/19/2025 06:15 EDT [place] % 11.9 % 02/19/2025 06:15 EDT Neutrophil % 64.6 % 02/19/2025 06:15 EDT Eosin % 2.6 % 02/19/2025 06:15 EDT Basos % 0.7 % 02/19/2025 06:15 EDT Lymph Count 1.57 x1000 02/19/2025 06:15 EDT [place] Count 0.92 x1000 02/19/2025 06:15 EDT Neutrophil Count (ANC) 5.01 x1000 02/19/2025 06:15 EDT Eos Count 0.20 x1000 02/19/2025 06:15 EDT Baso Count 0.05 x1000 02/19/2025 06:15 EDT [facility]09-18-2025 AllenJAME INGRAM :1965 [facility]:[id number] Registration Date:02/19/2025 Chief Complaint Shortness of breath and volume overload History of Present Illness This is a 59-year-old with a history of congestive heart failure he has a right ureteral stone and he has a scheduled removal of it cystoscopy on Sunday however he showed up at the freestanding ER in [place] for due to volume overload shortness of [...] Orders: acetaminophen, 650 mg= 2 tabs, ORAL, E0HJXCR, PRN acetaminophen, 650 mg= 2 tabs, ORAL, Z6ABJDL, PRN acetaminophen, 650 mg= 2 tabs, ORAL, A2XOJQO, PRN acetaminophen-oxycodone(acetaminophen-oxycodone 325 mg-5 mg oral tablet = Percocet), 1 tabs, ORAL, P6LKEZU, PRN aspirin(Aspirin Low Dose), 81 mg= 1 tabs, ORAL, DAILY WITH BREAKFAST atorvastatin(Lipitor), 40 mg= 1 tabs, ORAL, DAILY buPROPion(Wellbutrin SR, Zyban (buPROPion SR)), 100 mg= 1 tabs, ORAL, BID celecoxib(CeleBREX), 200 mg= 1 caps, ORAL, BID ciprofloxacin = Cipro, 500 mg= 1 tabs, ORAL, [id number] DULoxetine(Cymbalta), 60 mg= 1 caps, ORAL, DAILY [...] BREAKFAST melatonin, 5 mg= 1 tabs, ORAL, QHS/[id number], PRN metFORMIN = Glucophage, 850 mg= 1 tabs, ORAL, BIDWM metoprolol(Lopressor = Metoprolol Tartrate), 37.5 mg= 1.5 tabs, ORAL, BID mirtazapine(Remeron), 7.5 mg= 1 tabs, ORAL, QHS multivitamin, 1 tabs, ORAL, DAILY naloxone = Narcan, 0.4 mg= 1 mL, IV Push, PRN, PRN ondansetron(ondansetron 4 mg oral tablet, disintegrating = Zofran), 4 mg= 1 tabs, ORAL, [id number], PRN pioglitazone(Actos), 45 mg= 3 tabs, ORAL, [...] for Acute Respiratory (more content not included)... [facility]09-18-2025 Nurse Admission evaluation note 2357 - Report received from ED RN at [facility]. 0140 - Patient arrived to floor via transport, oriented to room, established on telemetry, ED registration called to pull patient into system. 0205 - Call to Dr. Montoya for admission orders, connected to physician, orders received and placedvia telephone with read back. 0230 - Patient updated on diet and plan of care, no additional needs voiced. [facility]09-18-2025 Nurse Admission evaluation note VRN Admission [...] visit. This visit was conducted via live, [id number]-[id number], video teleconferencing. This RN was in a remote location and the patient was on-site at the time of call. [facility]09-17-2025 PvuoAKOS-LXH-5 (AGENT OF COVID-19) RNA: Not detected INFLUENZA A RNA: Not detected INFLUENZA B RNA: Not detected RESPIRATORY SYNCYTIAL VIRUS (RSV) RNA: Not detectedFranklin Memorial HospitalComment on above:Performed By: #### [id number] ####[facility] LABCLIA [id number] [place] [address] [facility] [id number] Hospital Discharge instructions Patient Education 02/16/2025 16:04:28 [...] your doctor if you can take an wtsl-xhb-eshcmnb medicine. Read and follow all instructions on [...] Where can you learn more? Go to [email or web address] Enter X633 in the search box to learn more about "Kidney Stone: Care Instructions." Current as of: February 09, 2021 Content Version: 13.3 [employer]. Care instructions adapted under license by your healthcare professional. If you have questions about a medical condition or this instruction, always ask your healthcare professional. [employer] disclaims any warranty or liability for your use of this information. Follow Up Care 02/16/2025 11:40:53 With:[facility] Address: [address] [place] [address] Business (1) When:3 to 5 days Comments:Please follow-up with [facility] urology and keep your appt next week [facility] 09-15-2025 Note* Exam Date Time Procedure [...] ENID OG MD Signed Out: 02/16/25 14:21:41 [facility]09-15-2025 Evaluation + Plan noteExtracted from: Title:ED Physician Note - CALLIE Author:DENNIS AGEE JANETTE Date:02/16/25 Kidney stone N20.0 Orders: acetaminophen-oxycodone(Percocet 5 mg-325 mg oral tablet), 1 tabs, ORAL, [id number], PRN ciprofloxacin = Cipro(ciprofloxacin 500 mg oral tablet), 500 mg= 1 tabs, ORAL, [id number] ketorolac = Toradol(ketorolac 10 mg oral tablet), 10 mg= 1 tabs, ORAL, QID, PRN ondansetron(ondansetron 4 mg oral tablet, disintegrating = Zofran), 4 mg= 1 tabs, ORAL, [id number], PRN tamsulosin(Flomax 0.4 mg oral capsule), 0.4 mg= 1 caps, ORAL, DAILY CBCWD, STAT, 02/16/2025 11:41:00 EDT COMPMETA, STAT, 02/16/2025 11:41:00 EDT ED Discharge to Home, 02/16/2025 15:50:00 EDT, Constant Order LIP(LIPASE), STAT, 02/16/2025 11:41:00 EDT [facility] Nutrition Task to Nursing, 02/16/2025 11:41:00 EDT, [...] known 8mm right sided kidney stone, Cart [facility] 06-26-2025 Evaluation note* Diagnosis Onset Date Resolution Status Admit Date Diabetes type 2, uncontrolled acute November 27, 2024 3:58pm Migraine NEC/intractable acute November 27, 2024 3:58pm [facility] Work Phone: [phone]) 819-863703-21-2025 Evaluation note* Diagnosis Onset Date Resolution Status Admit Date Depression acute August 22 5:48pm Hyperglycemia due to type 2 diabetes mellitus acute August 22 5:48pm Migraine acute August 22 5:48pm Hypertension chronic August 22, 2024 5:48pm [facility] Work Phone: 1(628) 926-254403-21-2025 Evaluation note* Diagnosis Onset Date Resolution Status Admit Date Depression acute August 22 5:48pm Hyperglycemia due to type 2 diabetes mellitus acute August 22 5:48pm Migraine acute August 22 5:48pm Hypertension chronic August 22, 2024 5:48pm Hypothyroidism acute October 23, 2024 5:39pm Leukocytosis acute October 23 5:39pm Maxillary sinusitis, acute acute October 23, 2024 5:39pm Right otitis media acute October 232024 5:39pm [facility] Work Phone: 1(981) 432-473102-14-2024 Telephone encounter Note* Telephone Encounter - Britta Zavala RN - 07/18/2023 1:08 PM EST S: Patient spoke with [facility] nurse regarding dizziness. B: Onset of symptoms [...] hours of rest and fluids Protocols used: Reabzhsli-BNTOR-VV [facility] [id number] Miscellaneous Notes* Telephone Encounter - Britta Zavala RN - 07/18/2023 1:08 PM EST S: Patient spoke with [facility] nurse regarding dizziness. 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 Also sent [employer] message. Pt identified by name and : [...] J12.82] 08/09/2020 Obesity, Class (more content not included)...[facility] 02-08-2022 NoteHNO ID: [id number] Author: Jaymie Leigh MA Service: ? Author Type: Gravel Wheeler Type: Progress Notes Filed: 02/08/2022 11:31 AM [...] me back directly to schedule. Also sent [employer] message. Pt identified by name and : NO Outreach Outcome/Action Unable to reach patient: Left message [employer] message sent Did you use a PCP [...] Jaymie Leigh MA February 08, 2022 11:29 [facility]09-07-2022 History of Present illness Narrative* Jaymie [...] me back directly to schedule. Also sent [employer] message. Pt identified by name and : [...] 08, 2022 11:29 AM documented in this encounterOhio[facility]22 NoteHNO ID: [id number] Author: RT Tanisha(Zeinab) Service: ? Author Type: Technologist Type: Progress [...] BY: RT Tanisha(R) October 03, 2021 7:35 [facility]05-02-2022 NoteHNO ID: [id number] Author: RT Gabrielle(Zeinab) Service: ? Author Type: Technologist Type: Progress [...] BY: RT Antonella(R) October 03, 2021 5:49 [facility]05-02-2022 History of Present illness Narrative* RT Tanisha(R) [...] IV DATA: Not applicable SIGNED BY: RT Tanisha(Zeinab) October 03, 2021 7:35 PM documented in this encounterOhiohealth [facility]05-02-2022 NoteHNO ID: [id number] Author: Scott Rodriguez APRN.[employer] Service: ? Author Type: Nurse Practitioner Type: [...] not helped. 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 Patient also [...] with this plan. Report was called to [facility] emergency room patient was transported out of the office today to the emergency room in stable condition in no distress. Scott Rodriguez APRN.[employer] This note was partially generated using JDF voice recognition system. [facility]05-02-2022 History of Present illness Narrative* RT [...] 03, 2021 5:49 PM documented in this encounterOhiohealth [facility]05-02-2022 History of Present illness Narrative* Scott Rodriguez APRN.[employer] - 10/03/2021 4:04 PM EDT Patient is [...] not helped. 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 Patient also [...] with this plan. Report was called to [facility] emergency room patient was transported out of the office today to the emergency room in stable co ndition in no distress. Scott Rodriguez APRN.CNP This note was partially generated using JDF voice recognition system. documented in this encounterOhiohealth [facility]04-14-2022 NoteHNO ID: [id number] Author: Ivone Banks PA-C Service: ? Author Type: Physician Abstract Writer Type: Progress Notes Filed: 09/15/2021 2:24 PM [...] If virtual, please have images downloaded into Cubicle prior to appointment. If face to face, please have patient bring disc of images to appointment. If the patient would like a sooner appointment, the patient can be placed on my schedule for initial evaluation. Ivone Banks PA-C September 15, 2021 2:24 [facility]04-14-2022 History of Present illness Narrative* Ivone Banks [...] If virtual, please have images downloaded into Cubicle prior to appointment. If face to face, please have patient bring disc of images to appointment. If the patientwould like a sooner appointment, the patient can be placed on my schedule for initial evaluation. Ivone Banks PA-C September 15, 2021 2:24 PM * Mavis Hoang - 09/15/2021 10:44 AM EDT Patient name: Jame Wallace Are you being referred by a [facility] Provider or Pain Management Provider at [facility]? No If answer is "YES" please schedule directly with surgeon, triage does not need to be completed. Is this a self-referral No If not, who is the Referring Provider Jermaine Orta Is this a 2nd opinion, have you been offered surgery by another surgeon? No MRI/CT/myelogram within 12 months? Yes If "NO", please refer to medical spine or PCP to complete above imaging, triage does not need to be completed If "YES, please ask for the name/address of the facility where the MRI/CT/myelogram was completed: @[facility] MRI/CT/myelogram viewable in [facility]: Yes If not, please provide [phone] to fax in imaging reports for review. Also, please inform patient to hand carry imaging disc to appointment. XR (spine) within 12 months: Yes If "YES, please ask for the name/address of the facility where the XR was completed: @[facility] Requested provider (First and Last name): Unknown [...] in the last 12 months? Yes If "YES" then please ask for the name/address of the facility where the injections and/or physical therapy was completed Injections @[facility] - Jermaine Orta Have you tried any other kinds of non-surgical treatments in the last 12 months? (For example: NSAIDS, muscle relaxants, analgesics, oral steroids, Chiropractor, Acupuncture): No 4. Are you currently taking daily prescribed narcotic medications for your current symptoms (For example Oxycodone, Hydrocodone, Tramadol, Morphine, Other)? Yes Tramadol 5. Have you had previous spinal surgery for this same symptoms? No If "YES please ask for the name of facility/address of where the surgery was completed: N/A Additional Comments [phone] - documented in this encounterOhio[facility]04-14-2022 NoteHNO ID: [id number] Author: Mavis Hoang Service: ? Author Type: ? Type: Progress Notes Filed: 09/15/2021 2:24 PM Note Text: Patient name: Jame Wallace Are you being referred by a [facility] or [facility] Management Provider at [facility]? No If answer is "YES" please schedule directly with surgeon, triage does not need to be completed. Is this a self-referral No If not, who is the Referring Provider Jermaine Orta Is this a 2nd opinion, have you been offered surgery by another surgeon? No MRI/CT/myelogram within 12 months? Yes If "NO", please refer to medical spine or PCP to complete above imaging, triage does not need to be completed If "YES,? please ask for the name/address of the facility where the MRI/CT/myelogram was completed: @[facility] MRI/CT/myelogram viewable in Epic: Yes If not, please provide [phone] to fax in imaging reports for review. Also, please inform patient to hand carry imaging disc to appointment. XR (spine) within 12 months: Yes If "YES,? please ask for the name/address of the facility where the XR was completed: @[facility] Requested provider (First and Last name): Unknown [...] in the last 12 months? Yes If "YES" then please ask for the name/address of the facility where the injections and/or physical therapy was completed Injections @[facility] - Jermaine Orta Have you tried any other kinds of non-surgical treatments in the last 12 months? (For example: NSAIDS, muscle relaxants, analgesics, oral steroids, Chiropractor, Acupuncture): No 4. Are you currently taking daily prescribed narcotic medications for your current symptoms (For example Oxycodone, Hydrocodone, Tramadol, Morphine, Other)? Yes Tramadol 5. Have you had previous spinal surgery for this same symptoms? No If "YES? please ask for the name of facility/address of where the surgery was completed: N/A Additional Comments [phone] - [facility]11-04-2021 NoteHNO ID: [id number] Author: Veronique Vo MD Service: ? Author [...] for this visit on 04/07/21. Veronique Vo, [facility]10-21-2021 NoteHNO ID: [id number] Author: Veronique Vo MD Service: ? Author [...] 03/24/21 - VITAMIN A ORAL Veronique Vo [facility]10-21-2021 NoteHNO ID: [id number] Author: Анна Maged Service: ? Author Type: ? Type: Progress Notes Filed: 03/24/2021 11:27 AM Note Text: Pt states 4/10 on a pain scale. Pt c/o greenish/ white dischare. Shooting/ stabbing/ throbbing pain from sitting in car.[facility] 03-15-2021 NoteHNO ID: [id number] Author: Veronique Vo MD Service: ? Author [...] for this visit on 03/15/21. Veronique Vo, [facility]05-06-2016 History of Past illness Narrative* Problem Noted Date Resolved Date Chronic bilateral low back pain with right-sided sciatica 10/08/2015 09/05/2016 Post-operative state 05/15/2013 08/11/2019 Subcutaneous mass 04/23/2013 05/15/2013 Diverticulitis of colon (wit hout mention of hemorrhage)(562.11) 01/19/2011 documented as of this encounter (statuses as of 09/15/2021) [facility] History of Past illness Narrative* Problem Noted Date Resolved Date Chronic bilateral low back pain with right-sided sciatica 10/08/2015 09/05/2016 Post-operative state 05/15/2013 08/11/2019 Subcutaneous mass 04/23/2013 05/15/2013 Diverticulitis of colon (wit hout mention of hemorrhage)(562.11) 01/19/2011 documented as of this encounter (statuses as of 10/03/2021) [facility] History of Past illness Narrative* Problem Noted Date Resolved Date Chronic bilateral low back pain with right-sided sciatica 10/08/2015 09/05/2016 Post-operative state 05/15/2013 08/11/2019 Subcutaneous mass 04/23/2013 05/15/2013 Diverticulitis of colon (wit hout mention of hemorrhage)(562.11) 01/19/2011 documented as of this encounter (statuses as of 10/03/2021) [facility] History of Past illness Narrative* Problem Noted Date Resolved Date Chronic bilateral low back pain with right-sided sciatica 10/08/2015 09/05/2016 Post-operative state 05/15/2013 08/11/2019 Subcutaneous mass 04/23/2013 05/15/2013 Diverticulitis of colon (wit hout mention of hemorrhage)(562.11) 01/19/2011 documented as of this encounter (statuses as of 02/08/2022) [facility] History of Past illness Narrative* Problem Noted Date Diagnosed Date Resolved Date Chronic bilateral low back p ain with right-sided sciatica 10/08/2015 09/05/2016 Post-operative state 05/15/2013 020 Subcutaneous mass 04/23/2013 05/15/2013 Diverticulitis of colon (wit hout mention of hemorrhage)(562.11) 01/19/2011 documented as of this encounter (statuses as of 02/01/2023) [facility] note Author Roman Pichardo [facility] Note Date/Time March 19, 2025 3 :21pm [facility] Medical Records Department [address] [place] [address] Pre-Anesthesia Evaluation 03/19/25 1517 MR#: [id number] Acct: [id number] Name: JAME WALLACE Rep #:[id number] : 1965 59 From: Roman Ross PCP: DAVID Marina Status:ADM IN Y Race: C Location: [place] [address] 1-1 ASA Classification* ASA Classification ASA Classification: 3 and E Assessment & Plan Anesthesia* Anesthesia Assessment Anesthesia [...] anesthesia risk assessments. Anesthesia Type Anesthesia Type: MAC History Source History Obtained from:: Patient and Chart Anesthesia Focused Assessment* Temperature: 97.7 F Pulse Rate: 80 Blood Pressure: 106/66 Respiratory Rate: 16 Pulse Ox: 95 Oxygen Delivery Method: Room Air Airway Assessment Mouth opens: >3 cm Mallampati Score: II Teeth Condition: Caps/Crowns and Missing Neck Range of motion (ROM): Limited ROM Labs Anesthesia Preop lab: CBC WBC, (4.4-11.0) 8.0 K/mm3 Today, 04:36 RBC, (4.6-6.2) 3.03 M/mm3 L Today, 04:36 Hgb, (13.0-16.5) 9.3 g/dL L Today, 04:36 Hct, (40-54) 28.7 % L Today, 04:36 Plt Count, (150-450) 189 K/mm3 Today, 04:36 CHEMISTRY Potassium, (3.3-5.1) 4.8 mmol/L Today, 04:36 Sodium, (133-145) 141 mmol/L Today, 04:36 Magnesium, (1.5-2.2) 1.7 mg/dL 03/16/25, 05:57 Phosphorus, (2.7-4.5) 5.3 mg/dL H 03/16/25, 05:57 BUN, (4-19) 62 mg/dL H Today, 04:36 Creatinine, (0.70-1.20) 1.50 mg/dL H Today, 04:36 Glucose, (70-99) 151 mg/dL H Today, 04:36 POC Glucose, (74-106) 155 mg/dL H Today, 11:40 TSH, (0.300-4.200) 1.490 uIU/mL 03/16/25, 05:57 COAG PT, (11.7-14.9) 14.3 SECONDS Today, 04:36 INR 0.8 10/04/20, 21:08 Pre-Assessment Diagnosis/Proposed Procedure Planned Operative Procedure(s): EGD and colonoscopy Anesthesia History Anesthesia History - csr technician: Anesthesia History - csr technician Hx Hospitalization Yes: 02/2025 CHF 03/06/25 14:04 [...] Oral intake: Last Oral Intake NPO since 00:01 03/19/25 14:52 Meds taken in AM with sips of Yes 03/19/25 14:52 water? Meds patient instructed to gabapentin, tramadol 03/19/25 14:52 take am of surgery PONV PONV - csr technician: PONV - csr technician Female HX of Motion Sickness HX of N/V After Surgery Non-Smoker Duration of Surgery greater than 60 minutes Number of Risk Factors PONV Score Height & Weight Height & Weight: Anesthesia: Height & Weight Height 6 ft 2 in 03/19/25 14:52 Weight: 164.8 kg 03/19/25 14:52 Body Mass Index (BMI) 46.6 03/19/25 14:52 Respiratory Assessment Respiratory Assessment - csr technician: Respiratory Tract Infection Hx - csr technician Hx Respiratory Tract Infection No 03/06/25 14:04 STOP Sleep Apnea STOP Sleep Apnea - csr technician: STOP Sleep Apnea - csr technician Hx Hypertension No 03/19/25 11:16 Hx Sleep Apnea No 03/18/25 23:22 CPAP No 03/11/25 10:35 BIPAP No 03/06/25 14:04 Do you snore loudly (louder Yes 03/18/25 23:22 than talking or can be heard Do you often feel tired/ No 03/18/25 23:22 fatigued/ sleepy during daytime? Has anyone observed you stop Yes 03/18/25 23:22 breathing during sleep? STOP Results Positive 03/18/25 23:22 QUESTION #5 FULL TEXT : Do you snore loudly (louder than talking or can be heard through closed doors)? Tobacco Use History Tobacco Use History - csr technician: Tobacco Use History - csr technician Tobacco Use Smoking Status Never smoker 03/18/25 23:22 Hx Tobacco Use No 03/18/25 23:22 Years Smoking Packs Smoked per Day Smoking Cessation Date was within the last 15 years Hx Smoking Cessation Date Hx Smoking Cessation Counseling Hematologic Medial History Hematologic Hx - csr technician: Hematologic Medical Hx - statistical modeler Hx of Blood Transfusion No 03/18/25 23:22 Hx of Transfusion in last 3 No 03/18/25 23:22 Months Date of Last Transfusion (if within last 3 months) Ever experience any problems No 03/18/25 23:22 with transfusion(s)? Specify any problems Hx of Preganancy in last 3 N/A 03/18/25 23:22 Months Nurse Filling Out Transfusion AREAD 03/18/25 23:22 & Questions: Date: 03/18/25 03/18/25 23:22 Time: 23:44 03/18/25 23:22 Patient unable to answer at this time (ie. confused, unrespo /Reproduction History /Reproductive History - csr technician: /Reproductive Hx- csr technician Hx Now Gestational Age (in weeks): EDC: Hx Hx Para Hx Section SAB Active Medications Active Medications: Current Medications Generic Name Dose Route Start Last Admin Trade Name Freq PRN Reason Stop Dose Admin Acetaminophen 650 mg 03/18/25 23:21 Acetaminophen 325 Mg Tablet PO Q6H PRN PRN Pain 1-10 Or Fever >100.7 Atorvastatin Calcium 40 mg 03/19/25 22:00 Atorvastatin Calcium 40 Mg Tablet PO QHS AKHIL Bupropion HCl 100 mg 03/19/25 10:00 03/19/25 14:38 Bupropion (Sr) 100 Mg Tablet.Sa PO Not Given BID AKHIL Duloxetine HCl 60 mg 03/19/25 22:00 Duloxetine Hcl 60 Mg Capsule PO QHS AKHIL Furosemide 40 mg 03/19/25 10:00 03/19/25 14:37 Furosemide 40 Mg Tablet PO Not Given DAILY AKHIL Protocol Gabapentin 400 mg 03/19/25 06:00 03/19/25 14:21 Gabapentin 400 Mg Capsule PO 400 mg TID AKHIL Administration Glucagon 1 mg 03/19/25 00:32 Glucagon 1 Mg/Ml Syringe IM X1 PRN Hypoglycemia Protocol Pantoprazole Sodium 80 mg/ 100 mls @ 10 mls/hr 03/18/25 21:30 03/19/25 08:17 Sodium Chloride CONT INF 10 mls/hr Q10H AKHIL Administration Sodium Chloride 500 mls @ 15 mls/hr 03/18/25 23:22 IV PRN PRN Blood Transfusion Sodium Chloride 250 mls @ 15 mls/hr 03/18/25 23:22 03/19/25 02:37 IV 0 mls/hr .[id number] PRN Infusion Saline Flush Sodium Chloride 250 mls @ 15 mls/hr 03/18/25 23:22 IV .[id number] PRN Additional IVPB Infusion Dextrose 250 mls @ 0 mls/hr 03/19/25 00:32 Dextrose 10%-Water IV .Q0M PRN HYPOGLYCEMIA Protocol As Directed Ceftriaxone Sodium 1 gm in 50 mls @ 100 mls/hr 03/19/25 01:10 03/19/25 04:07 Rocephin IV Infused QHS [facility] Infusion Insulin Human Lispro 0 unit 03/19/25 06:00 03/19/25 11:54 Insulin Lispro 100 Unit/Ml Insuln.Pen SC Not Given Q6 [facility] Protocol Lactic Acid 1 applic 03/19/25 01:00 Ammonium Lactate 225 Gm Bottle TOPICAL DAILY PRN PRN CRACKED HANDS Levothyroxine Sodium 75 mcg 03/19/25 06:00 03/19/25 06:06 Levothyroxine 75 Mcg Tablet PO 75 mcg DAILY@0600 [facility] Administration Magnesium Chloride 64 mg 03/19/25 10:00 03/19/25 10:02 Magnesium Chloride 64 Mg Delay Rel.Tablet PO Not Given DAILY [facility] Metoprolol Tartrate 37.5 mg 03/19/25 10:00 03/19/25 14:37 Metoprolol Tartrate 25 Mg Tablet PO Not Given BID [facility] Mirtazapine 7.5 mg 03/18/25 23:21 03/19/25 00:21 Mirtazapine 15 Mg Tablet PO 7.5 mg QHS PRN PRN Administration SLEEP Multivitamins 1 tablet 03/19/25 08:00 03/19/25 07:47 Multivitamins,Therapeutic Tablet PO Not [facility] Nitroglycerin 0.4 mg 03/18/25 23:21 Nitroglycerin (Inpatient Use) 0.4 Mg Tab.Subl SL Q5M PRN CARDIAC/CHEST PAIN Ondansetron HCl 4 mg 03/18/25 23:21 Ondansetron 4 Mg/2 Ml Vial IV Q8H PRN PRN NAUSEA/VOMITING Oxycodone HCl 5 mg 03/18/25 23:21 03/19/25 11:45 Oxycodone 5 Mg Tablet PO 5 mg Q6H PRN PRN Administration Pain Score 4-10 Sodium Chloride 10 - 40 ml 03/18/25 23:22 03/19/25 05:36 0.9% Saline Lock 10 Ml Syringe IV 40 ml UD PRN Administration SALINE FLUSH Spironolactone 25 mg 03/19/25 10:00 03/19/25 14:37 Spironolactone 25 Mg Tablet PO Not Given DAILY [facility] Protocol Tamsulosin HCl 0.4 mg 03/19/25 10:00 03/19/25 10:01 Tamsulosin Hcl 0.4 Mg Capsule PO Not Given DAILY [facility] Tramadol HCl 50 mg 03/19/25 06:00 03/19/25 14:21 Tramadol 50 Mg Tablet PO 50 mg TID [facility] Administration Triamcinolone Acetonide 1 applic 03/19/25 00:58 Triamcinolone Acetonide 0.1% Cream 15 Gm TOPICAL BID PRN PRN allergic reaction PFSH Medical History CHF exacerbation ADDY (obstructive sleep apnea) Chronic anticoagulation Atrial fibrillation Morbid obesity with BMI of 45.0-49.9, adult Respiratory insufficiency Hypertension Diabetes Chronic pain Kidney stones Atrial fibrillation [...] Medications ?Medication ?Instructions ?Recorded ?Last Taken ?Type prodigy #1 ea 03/02/18 Unknown Histo ry fluticasone propionate 0.05 % 1 applic topical QD-BID PRN 11/05/20 Unknown Rx topical cream (Cutivate) allergic reaction #60 grams albuterol sulfate 90 mcg/actuation 2 puff inhalation Q 4H PRN sob #6.7 08/22/24 Unknown Rx aerosol inhaler (Ventolin HFA) grams bupropion HCl 100 mg tablet,12 hr 100 mg PO BID #180 t abs 08/22/24 03/18/25 23:50 Rx sustained-release celecoxib 200 mg capsule 200 mg PO BID #180 caps 08/0303/18/25 11:50 Rx gabapentin 400 mg capsule 400 mg PO TID 90 days #270 c aps 08/22/24 03/18/25 06:51 Rx glimepiride 4 mg tablet 4 mg PO QAM #90 tabs 5 03/18/25 06:51 Rx metformin 850 mg tablet 850 mg PO BID #180 tabs 08/0303/18/25 06:52 Rx metoprolol tartrate 37.5 mg tablet 37.5 mg PO BID #180 tabs 08/22/24 03/18/25 06:52 Rx mirtazapine 15 mg tablet 7.5 mg (1/2 x 15 mg) PO QHS PRN 08/22/24 03/17/25 23:52 Rx sleep 90 days #90 tabs pioglitazone 45 mg tablet 45 mg PO DAILY #90 tabs 08/0303/17/25 18:53 Rx tramadol 50 mg tablet 50 mg PO TID neuropathic leigha n #90 08/22/24 03/18/25 06:54 Rx tabs levothyroxine 75 mcg tablet 75 mcg PO QDAY #90 tabs 03/18/25 06:51 Rx (Euthyrox) atorvastatin 40 mg tablet 40 mg PO QHS #90 tabs 03/17/25 23:49 Rx ammonium lactate 12 % topical cream 1 applic topical P RN CRACKED HANDS 03/06/25 Unknown History duloxetine 60 mg capsule,delayed 60 mg PO QHS depressi on 03/06/25 03/17/25 23:50 History release ketorolac 10 mg tablet 10 mg PO 4X/DAY PRN PRN mode rate 03/06/25 03/10/25 History pain tamsulosin 0.4 mg capsule 0.4 mg PO DAILY enlarged pro state 03/06/25 03/18/25 06:54 History oxycodone 5 mg tablet 5 mg PO Q6H PRN pain 7 days #20 03/11/25 03/15/25 Rx tabs spironolactone 25 mg tablet 25 mg PO DAILY #30 tabs Unknown Rx apixaban 5 mg tablet (Eliquis) 5 mg PO BID Afib 03/18/25 06:54 History furosemide 40 mg tablet 40 mg PO .qd CHF 03/18/25 06:55 History magnesium oxide 250 mg PO DAILY supplement 1 03/18/25 06:52 History multivitamin 1 tab PO DAILY supplement 03/18/25 06:52 History ondansetron 4 mg disintegrating 4 mg PO Q8H PRN PRN na usea 03/18/25 Unknown History tablet Allergy/AdvReac Type Severity Reaction Status Date / Time No Known Allergies Allergy Verified 03/18/25 18:06 Family History Other Esophageal cancer FH: ovarian cancer Surgical History History of surgery History of foot surgery History of colonoscopy Lump of skin of back History of colectomy History of appendectomy History of cholecystectomy Social History household members: spouse Smoking Status: Never smoker Review of Systems (Anesthesia) ROS Narrative System reviewed and no additional complaints, except as documented. 03/19/25 1521 <Electronically signed by Roman Pichardo MD> Date _ Roman Pichardo MD Cosigner Signature: Date CC: ~ Signed [facility] Work Phone: Consult note Author Isaiah Friend [facility] Note Date/Time March 19, 2025 3 :53pm [facility] Medical Records Department [address] [place] [address] Consultation - GI 03/19/25 1550 MR#: [id number] Acct: [id number] Name: JAME WALLACE Rep #:[id number] : 1965 59 From: Isaiah Galloway DO PCP: DAVID Marina Status:ADM IN Location: [place] [address] HPI Consult Data Date of Consult: 03/19/25 HPI Narrative Reason for Consultation: Syncope HPI Narrative: JAME WALLACE, is a 59 M who presented to the ED with a complaint of lightheadedness and near syncope. Patient was recently discharged from the hospital with CHF as exacerbation and kidney stones. He is on aspirin Plavix and Eliquis and has also been taken celecoxib for arthritis. Patient apparentlyfeels lightheaded whenever he gets up and has gone on over the past 2 weeks. Hefeels dizzy and lightheaded when he stands and feels better when he sits down and has also had several episodes of syncope. He denied any nausea or vomiting, fever or chills, chest pain or palpitations. He denied any diarrhea but admitted to dark stools. He had recently been on oral toradol for kidney stones and is also chronically on celebrex at home. Review of systems otherwise negative. He went to see his PCP today and was toldto come into the ED. I was asked to see him because his hemoglobin went from 12.7-11.1 in 1 day and his stools were fecal occult positive. [facility] Medical History CHF exacerbation ADDY (obstructive sleep apnea) Chronic anticoagulation Atrial fibrillation Morbid obesity with BMI of 45.0-49.9, adult Respiratory insufficiency Hypertension Diabetes Chronic pain Kidney stones Atrial fibrillation [...] Medications ?Medication ?Instructions ?Recorded ?Last Taken ?Type prodigy #1 ea 03/02/18 Unknown Histo ry fluticasone propionate 0.05 % 1 applic topical QD-BID PRN 11/05/20 Unknown Rx topical cream (Cutivate) allergic reaction #60 grams albuterol sulfate 90 mcg/actuation 2 puff inhalation Q 4H PRN sob #6.7 08/22/24 Unknown Rx aerosol inhaler (Ventolin HFA) grams bupropion HCl 100 mg tablet,12 hr 100 mg PO BID #180 t abs 08/22/24 03/18/25 23:50 Rx sustained-release celecoxib 200 mg capsule 200 mg PO BID #180 caps 08/0303/18/25 11:50 Rx gabapentin 400 mg capsule 400 mg PO TID 90 days #270 c aps 08/22/24 03/18/25 06:51 Rx glimepiride 4 mg tablet 4 mg PO QAM #90 tabs 5 03/18/25 06:51 Rx metformin 850 mg tablet 850 mg PO BID #180 tabs 08/0303/18/25 06:52 Rx metoprolol tartrate 37.5 mg tablet 37.5 mg PO BID #180 tabs 08/22/24 03/18/25 06:52 Rx mirtazapine 15 mg tablet 7.5 mg (1/2 x 15 mg) PO QHS PRN 08/22/24 03/17/25 23:52 Rx sleep 90 days #90 tabs pioglitazone 45 mg tablet 45 mg PO DAILY #90 tabs 08/0303/17/25 18:53 Rx tramadol 50 mg tablet 50 mg PO TID neuropathic leigha n #90 08/22/24 03/18/25 06:54 Rx tabs levothyroxine 75 mcg tablet 75 mcg PO QDAY #90 tabs 03/18/25 06:51 Rx (Euthyrox) atorvastatin 40 mg tablet 40 mg PO QHS #90 tabs 03/17/25 23:49 Rx ammonium lactate 12 % topical cream 1 applic topical P RN CRACKED HANDS 03/06/25 Unknown History duloxetine 60 mg capsule,delayed 60 mg PO QHS depressi on 03/06/25 03/17/25 23:50 History release ketorolac 10 mg tablet 10 mg PO 4X/DAY PRN PRN mode rate 03/06/25 03/10/25 History pain tamsulosin 0.4 mg capsule 0.4 mg PO DAILY enlarged pro state 03/06/25 03/18/25 06:54 History oxycodone 5 mg tablet 5 mg PO Q6H PRN pain 7 days #20 03/11/25 03/15/25 Rx tabs spironolactone 25 mg tablet 25 mg PO DAILY #30 tabs Unknown Rx apixaban 5 mg tablet (Eliquis) 5 mg PO BID Afib 03/18/25 06:54 History furosemide 40 mg tablet 40 mg PO .qd CHF 03/18/25 06:55 History magnesium oxide 250 mg PO DAILY supplement 1 03/18/25 06:52 History multivitamin 1 tab PO DAILY supplement 03/18/25 06:52 History ondansetron 4 mg disintegrating 4 mg PO Q8H PRN PRN na usea 03/18/25 Unknown History tablet Allergy/AdvReac Type Severity Reaction Status Date / Time No Known Allergies Allergy Verified 03/18/25 18:06 Family History Other Esophageal cancer FH: ovarian cancer Surgical History History of surgery History of foot surgery History of colonoscopy Lump of skin of back History of colectomy History of appendectomy History of cholecystectomy Social History household members: spouse Smoking Status: Never smoker ROS Constitutional Constitutional: Denies fatigue, fever(s), poor appetite, weight gain or weight loss Gastrointestinal Gastrointestinal: Denies belching, bloating, change in bowel habits, change in stool character, chewing difficulty, coffee ground emesis, constipation, cramping, diarrhea, dyspepsia, dysphagia, early satiety, excessive flatus, fecalincontinence, heartburn, hematemesis, hematochezia, hemorrhoids, loose stools, melena, nausea, odynophagia, rectal bleeding, tenesmus, vomiting or weight changes Physical Exam Const alert, oriented x3, no apparent distress and healthy appearing General Appearance: cooperative GI normal to inspection, nondistended, normoactive bowel sounds, soft to palpation,non-tender and non-distended Percussion: normal to percussion Rectal Exam: deferred Lab / Micro Data 03/19/25 04:36 03/19/25 04:36 Labs: Laboratory Results - last 24 hr 03/18/25 18:34: WBC 10.8, RBC 3.60 L, Hgb 11.1 L, Hct 34.1 L, MCV 94.7 H, MCH 30.8, MCHC 32.6, RDW Std Deviation 45.5 H, RDW Coeff of Sarah 13.2, Plt Count 245,MPV 12.3 H, Immature Gran % (Auto) 0.300, Neut % (Auto) 66.1, Lymph % (Auto) 18.6 L, [place] % (Auto) 11.3 H, Eos % (Auto) 3.1, Baso % (Auto) 0.6, Absolute Neuts (auto) 7.1, Absolute Lymphs (auto) 2.00, Nucleated RBC % 0, D-Dimer Quant (PE/DVT) < 0.27 L, Sodium 138, Potassium 5.0, Chloride 99, Carbon Dioxide 30.2, Anion Gap 9, BUN 69 H, Creatinine 1.70 H, Estim Creat Clear Calc 77.42, Est GFR (MDRD) Non-Af 46 L, BUN/Creatinine Ratio 40.4 H, Glucose 180 H, Calcium 9.5, NT pro BNP II 128 03/18/25 20:00: Urine Color Yellow, Urine Clarity Cloudy, Urine pH 5.0, Ur Specific [place] 1.020, Urine Protein 100 H, Urine Glucose (UA) 100 H, Urine Ketones Negative, Urine Occult Blood 250 H, Urine Nitrite Positive H, Urine Bilirubin 1 H, Urine Urobilinogen Normal, Ur Leukocyte Esterase 500 H, Urine [id number] SEEN, Urine WBC 10-25 SEEN, Ur Squamous Epith Cells 0 SEEN, Amorphous Sediment 2+, Urine Bacteria 3+, Urine Mucus 0 SEEN 03/19/25 00:51: POC Glucose 131 H 03/19/25 04:36: WBC 8.0, RBC 3.03 L, Hgb 9.3 L, Hct 28.7 L, MCV 94.7 H, MCH 30.7, MCHC 32.4, RDW Std Deviation 46.0 H, RDW Coeff of Sarah 13.3, Plt Count 189,MPV 12.6 H, Immature Gran % (Auto) 0.400, Neut % (Auto) 58.6, Lymph % (Auto) 28.7, [place] % (Auto) 8.0, Eos % (Auto) 3.5, Baso % (Auto) 0.8, Absolute Neuts (auto) 4.7, Absolute Lymphs (auto) 2.29, Nucleated RBC % 0, PT 14.3, INR 1.1, APTT 28.6, Sodium 141, Potassium 4.8, Chloride 106, Carbon Dioxide 27.5, Anion Gap 8, BUN 62 H, Creatinine 1.50 H, Estim Creat Clear Calc 87.50, Est GFR (MDRD)Non-Af 54 L, BUN/Creatinine Ratio 41.3 H, Glucose 151 H, Calcium 8.8, Total Bilirubin 0.29, Direct Bilirubin 0.12, AST 15, ALT 10, Alkaline Phosphatase 66, Total Protein 5.5 L, Albumin 3.2 L, Globulin 2.3 03/19/25 05:31: POC Glucose 149 H 03/19/25 11:40: POC Glucose 155 H Micro: Microbiology 03/18/25 21:14 Stool Stool Occult Blood (LETY) - Final Occult Blood Positive Imaging Radiology Impression Chest X-Ray 03/18/25 19:35 IMPRESSION: Elevated right hemidiaphragm, likely with overlying atelectasis. Unchanged. Reading Location: [facility] Assessment & Plan Assessment/Plan (1) Orthostatic hypotension: (2) Acute upper gastrointestinal bleeding: PLAN: He will undergo an upper endoscopy to evaluate his upper GI tract. He wasexplained alternatives, risk and benefits include not withstanding bleeding, infection, sepsis, perforation, need for emergent urgent . He will have anASA of 3. Charges/Coding Visit Charges Inpatient E&M: 16316 Init Hosp L3 03/19/25 1553 <Electronically signed by Isaiah Galloway DO> Cosigner Signature (if applicable): CC: DAVID Live~ Signed [facility] Work Phone: Consult note Author Eric Sheehan [facility] Note Date/Time March 19, 2025 4 :29pm [facility] Medical Records Department [address] [place] [address] Anesthesia Postop Eval I 03/19/25 1628 MR#: [id number] Acct: [id number] Name: JAME WALLACE Rep #:[id number] : 1965 59 From: Eric MALAVE PCP: DAVID Marina Status:ADM IN Y Race: C Location: [place] [address] 1-1 Anesthesia: Postop Eval I Current Vital Signs Temperature: 98.2 F Pulse Rate: 83 Blood Pressure: 100/50 Respiratory Rate: 16 Pulse Ox: 97 Assessment Airway patent: Yes Spontaneous unlabored respirations: Yes nausea: No Vomiting: No Anesthesia Complication: No Fluid Hydration Crystalloid volume administer (ml): 200 Total IV fluid infused: 200 Progress Note Anesthesia document: Postop Eval 1 completed: Yes 03/19/25 1629 <Electronically signed by Eric Sheehan CRNA> Date _ Eric Sheehan CRNA Cosigner Signature: Date CC: ~ Signed [facility] Work Phone: Consult note Author Roman [facility] Note Date/Time March 20, 2025 2 :55pm [facility] Medical Records Department [address] [place] [address] Anesthesia Postop Eval II 03/19/25 1704 MR#: [id number] Acct: [id number] Name: JAME WALLACE Rep #:[id number] : 1965 59 From: Roman Ross PCP: DAVID Marina Status:ADM IN Y Race: C Location: [place] [address] 1- Anesthesia Postop Eval I Sum Postop Eval Completion status Anesthesia document: Postop Eval 1 completed: Yes Anesthesia Postop Eval I Summary Anesthesia Postop Eval I Summary: Anesthesia Postop Eval I: Assessment Summary 3 Airway patent Yes 03/19/25 16:28 TYPING OFFICE WORKER.TNES Spontaneous unlabored Yes 03/19/25 16:28 TYPING OFFICE WORKER.TNES respirations Mental status nausea No 03/19/25 16:28 TYPING OFFICE WORKER.TNES Vomiting No 03/19/25 16:28 TYPING OFFICE WORKER.TNES Anesthesia Postop Eval I: Fluid Summary Crystalloid volume administer 200 03/19/25 16:28 TYPING OFFICE WORKER.TNES (ml) Colloids volume administered ( ml) Blood Product volume administered (ml) Total IV fluid infused 200 03/19/25 16:28 TYPING OFFICE WORKER.TNES Anesthesia Postop Eval I: Summary Notes Anesthesia Complication No 03/19/25 16:28 TYPING OFFICE WORKER.TNES Anesthesia Complication Comment: Post-operative progress note Anesthesia: Postop Eval II Evaluation Mental status: Awake and Calm Pain Level: 1 nausea: No Vomiting: No Complications Anesthesia Complication: No 03/19/25 1704 <Electronically signed by Roman Pichardo MD> Date _ Roman Pichardo MD Cosigner Signature: Date CC: ~ Signed [facility] Work Phone: Consult note Author Kathy Montero [facility] Note Date/Time March 20, 2025 3 :20pm [facility] Medical Records Department [address] [place] [address] Counseling Note - Pharmacy 03/20/25 1519 MR#: [id number] Acct: [id number] Name: JAME WALLACE Rep #:[id number] : 1965 59 From: Kathy Montero PCP: DAVID Marina Status:DIS IN Y Location: [place] [id number] [place] Med Reconciliation Pharmacy Service has performed discharge medication reconciliation for this patient. Medication education papers prepared, patient discharged when counseling was attempted. Medications reviewed. The patient's discharge medication list was reviewed for discrepancies and discrepancies were resolved. Medications at Discharge Home Medications prodigy #1 ea 03/02/18 fluticasone propionate 0.05 % topical cream (Cutivate) 1 applic topical QD-BID PRN allergic reaction #60 grams 11/05/20 albuterol sulfate 90 mcg/actuation aerosol inhaler (Ventolin HFA) 2 puff inhalation Q4H PRN sob #6.7 grams 08/22/24 bupropion HCl 100 mg tablet,12 hr sustained-release 100 mg PO BID #180 tabs 08/22/24 gabapentin 400 mg capsule 400 mg PO TID 90 days #270 caps 08/22/24 glimepiride 4 mg tablet 4 mg PO QAM #90 tabs 08/22/24 metformin 850 mg tablet 850 mg PO BID #180 tabs 08/22/24 metoprolol tartrate 37.5 mg tablet 37.5 mg PO BID #180 tabs 08/22/24 mirtazapine 15 mg tablet 7.5 mg (1/2 x 15 mg) PO QHS PRN sleep 90 days #90 tabs 08/22/24 pioglitazone 45 mg tablet 45 mg PO DAILY #90 tabs 08/22/24 tramadol 50 mg tablet 50 mg PO TID neuropathic pain #90 tabs 08/22/24 levothyroxine 75 mcg tablet (Euthyrox) 75 mcg PO QDAY #90 tabs 11/03/24 atorvastatin 40 mg tablet 40 mg PO QHS #90 tabs 11/27/24 ammonium lactate 12 % topical cream 1 applic topical PRN CRACKED HANDS 03/06/25 duloxetine 60 mg capsule,delayed release 60 mg PO QHS depression 03/06/25 tamsulosin 0.4 mg capsule 0.4 mg PO DAILY enlarged prostate 03/06/25 oxycodone 5 mg tablet 5 mg PO Q6H PRN pain 7 days #20 tabs 03/11/25 apixaban 5 mg tablet (Eliquis) 5 mg PO BID Afib 03/18/25 Held on 03/20/25. Instructions: Resume on 04/03/25. Hold your Eliquis for 2 weeks, then resume it at 5 mg twice a day furosemide 40 mg tablet 40 mg PO .qd CHF 03/18/25 magnesium oxide 250 mg PO DAILY supplement 03/18/25 multivitamin 1 tab PO DAILY supplement 03/18/25 ondansetron 4 mg disintegrating tablet 4 mg PO Q8H PRN PRN nausea 03/18/25 pantoprazole 40 mg tablet,delayed release (Protonix) 40 mg PO BID #60 tabs 03/20/25 spironolactone 25 mg tablet 12.5 mg (1/2 x 25 mg) PO DAILY #30 tabs 03/20/25 sucralfate 1 gram tablet 1 g PO TID #90 tabs 03/20/25 03/20/25 1520 <Electronically signed by Kathy Montero> Date _ Kathy Montero Cosigner Signature (if applicable): Date CC: ~ Signed [facility] Work Phone: Discharge summary Author Edmundo Wiggins [facility] Note Date/Time March 11, 2025 10 :37am [facility] Medical Records Department [address] [place] [address] Instructions for Home/Discharge Instructions 03/11/25 1036 MR#: [id number] Acct: [id number] Name: JAME WALLACE Rep #:[id number] : 1965 59 From: Edmundo Wiggins [...] Up With: Edmundo Wiggins MD When: Call [phone] for an appointment Test Results: Test results from this visit will be discussed in further detail at your follow- up appointment, if applicable. Discharge Plan Admission Primary Reason for Your Visit: right kidney stone Attending Provider: Edmundo Wiggins Primary Care Provider: Jenny Live NP Instructions Print Language: Brazilian Discharge Orders/Prescriptions Prescriptions: New cephalexin 500 mg [...] - Active Staff, Urology] Jenny Live NP, NP-C [Primary Care Provider, Family Practice] Disposition Disposition (needs filled in before D/C Order can be placed): Home, Self Care 03/11/25 1037<Electronically signed by Edmundo Wiggins MD>Edmundo Wiggins MD CC: BRUSH WASHER-C Jenny Live ~ Signed [facility] Work Phone: Discharge summary Author [facility] Note Date/Time March 17, 2025 1 :21pm [facility] Medical Records Department [address] [place] [address] Instructions for Home/Discharge Instructions 03/17/25 1309 MR#: [id number] Acct: [id number] Name: JAME WALLACE Rep #:[id number] : 1965 59 From: Herbert Mane DO [...] up appointment, if applicable. Discharge Plan Admission Admit Date/Time: 03/16/25 05:37 Primary Reason for Your Visit: Diastolic congestive heart failure, mild pulmonary hypertension Attending Provider: Herbert Mane Primary Care Provider: Jenny Live NP Consulting Providers: Knidra Bach; Lisa rGuber; Tray Herring; Mana Corcoran; Kassidy Serrano; Artie Marquez; Leonard Ford; Juvenal Cedillo; Jame Zuluaga; Brooke Slater; Bony Manuel; Yesy Locke; Anselmo Fontaine; Richard De La Torre; Elbert Shaffer; Macario Rodriguez NP; Janette Washington; Ernst Parker; Jame Bashir Discharge [...] Referrals / Follow Up: Jenny Live NP, DAVID [Primary Care Provider, Family Practice] - Within 2 Weeks Janette Washington PA [Med Staff - [facility] Prof, Cardiology] - See Referral Note Referral Note: in 3 weeks Disposition Disposition (needs filled in before D/C Order can be placed): Home, Self Care 03/17/25 1321<Electronically signed by Herbert Mane DO>Herbert Mane DO CC: DAVID Live; DAVID Rodriguez; Dr. Tray Herring MD; Dr. Lisa Gruber MD; Dr. Kindra Bach MD; Dr. Kassidy Serrano MD; Dr. Mana Corcoran MD; Dr.Brendan Jimmy MD; Dr. Leonard Ford MD; Dr. Juvenal Cedillo MD; Dr. Jame Zuluaga DO; Dr. Jame Bashir DO; Dr. Brooke Slater MD; Dr. Bony Manuel MD; Dr. Yesy Locke MD; Dr. Elbert Shaffer MD; Dr. Anselmo Fontaine MD; Dr. Richard De La Torre MD; NICOLLE Dodge; NICOLLE Lackey ~ Signed [facility] Work Phone: Discharge summary Author [facility] Note Date/Time March 17, 2025 3 :04pm [facility] Medical Records Department [address] [place] [address] Discharge Summary 03/17/25 1321 MR#: [id number] Acct: [id number] Name: JAME WALLACE Rep #:[id number] : 1965 59 From: Herbert Mane DO PCP: DAVID Marina Status:DIS IN Location: [place] [id number] Providers Date of Admission: 03/16/25 Date of Discharge: 03/17/25 Primary Care Physician: DAVID Marina Consultations 03/16/25 05:34 Consult: Cardiology Routine Consulting Provider: [facility] Reason for Consult: AE CHF EMERGENT Consult: No MD Notified: Yes Date Notified: 03/16/25 Time Notified: 06:46 Method of Notification: Text Method of Consult:: In-Person Reason For Visit: AE CHF WITH RESPIRATORY INSUFFCIENCY Diagnosis Discharge Diagnosis (1) CHF exacerbation: Status: Chronic Code(s): I50.9 - Heart failure, unspecified Qualifiers: Heart failure type: unspecified Qualified Code(s): I50.9 - Heart failure, unspecified (2) Atrial fibrillation: Status: Inactive Code(s): I48.91 - Unspecified atrial fibrillation Qualifiers: Atrial fibrillation type: unspecified Qualified Code(s): I48.91 - Unspecified atrial fibrillation (3) Hypertension: Status: Inactive Code(s): I10 - Essential (primary) hypertension Qualifiers: Hypertension type: primary hypertension Qualified Code(s): I10 - Essential (primary) hypertension Plan 1. Orthostatic hypotension secondary to acute anemia from upper GI bleed (gastric ulcers)-patient's hemoglobin will be rechecked tomorrow morning, continue Protonix and Carafate #2 acute anemia secondary to acute upper GI bleed secondary to gastric ulcers- CBC will be rechecked tomorrow #3 paroxysmal P-and-esnmizv will continue metoprolol, he is off Eliquis #4 gastric ulcers secondary to use of nonsteroidal anti-inflammatory agents- patient has been cautioned to remain off these medications #5 bacteriuria #6 hypothyroidism-patient is on Synthroid #7 chronic diastolic congestive heart failure-patient is stable at this time #8 gastric ulcers Medications at Discharge Home Medications prodigy #1 ea 03/02/18 fluticasone propionate 0.05 % topical cream (Cutivate) 1 applic topical QD-BID PRN allergic reaction #60 grams 11/05/20 albuterol sulfate 90 mcg/actuation aerosol inhaler (Ventolin HFA) 2 puff inhalation Q4H PRN sob #6.7 grams 08/22/24 bupropion HCl 100 mg tablet,12 hr sustained-release 100 mg PO BID #180 tabs 08/22/24 gabapentin 400 mg capsule 400 mg PO TID 90 days #270 caps 08/22/24 glimepiride 4 mg tablet 4 mg PO QAM #90 tabs 08/22/24 metformin 850 mg tablet 850 mg PO BID #180 tabs 08/22/24 metoprolol tartrate 37.5 mg tablet 37.5 mg PO BID #180 tabs 08/22/24 mirtazapine 15 mg tablet 7.5 mg (1/2 x 15 mg) PO QHS PRN sleep 90 days #90 tabs 08/22/24 pioglitazone 45 mg tablet 45 mg PO DAILY #90 tabs 08/22/24 tramadol 50 mg tablet 50 mg PO TID neuropathic pain #90 tabs 08/22/24 levothyroxine 75 mcg tablet (Euthyrox) 75 mcg PO QDAY #90 tabs 11/03/24 atorvastatin 40 mg tablet 40 mg PO QHS #90 tabs 11/27/24 ammonium lactate 12 % topical cream 1 applic topical PRN CRACKED HANDS 03/06/25 duloxetine 60 mg capsule,delayed release 60 mg PO QHS depression 03/06/25 tamsulosin 0.4 mg capsule 0.4 mg PO DAILY enlarged prostate 03/06/25 oxycodone 5 mg tablet 5 mg PO Q6H PRN pain 7 days #20 tabs 03/11/25 apixaban 5 mg tablet (Eliquis) 5 mg PO BID Afib 03/18/25 Held on 03/20/25. Instructions: Resume on 04/03/25. Hold your Eliquis for 2 weeks, then resume it at 5 mg twice a day furosemide 40 mg tablet 40 mg PO .qd CHF 03/18/25 magnesium oxide 250 mg PO DAILY supplement 03/18/25 multivitamin 1 tab PO DAILY supplement 03/18/25 ondansetron 4 mg disintegrating tablet 4 mg PO Q8H PRN PRN nausea 03/18/25 pantoprazole 40 mg tablet,delayed release (Protonix) 40 mg PO BID #60 tabs 03/20/25 spironolactone 25 mg tablet 12.5 mg (1/2 x 25 mg) PO DAILY #30 tabs 03/20/25 sucralfate 1 gram tablet 1 g PO TID #90 tabs 03/20/25 Hospital Course Operations None Procedures EGD Summary of Care Provided Minutes Spent on Discharge: 32 Hospital Course: This 59-year-old white male was seen in the emergency room at [facility] with complaints of lightheadedness and near syncope. He states the symptoms occur when he stands up, symptoms improved when he sits down. He also complained of several episodes of actual syncope. Patient was recently releasedfrom the hospital here after treatment for congestive heart failure. Workup in the emergency room showed 3+ bacteria in his urinalysis with elevated white cells and nitrites, hemoglobin was 11.1 which had declined from 12.7 on 03/16/2025. Stool for occult blood was positive. Patient was admitted to PCU and labs were monitored, he was seen in consultation by gastroenterology and underwent an EGD which showed gastric ulcers which were nonbleeding. On 03/20/2025, patient was seen and examined: On examination he appeared in good health and spirits. Vital signs as documented. Skin warm and dry and without overt rashes. Neck without JVD, neck was supple, trachea midline, thyroid was normal. Lungs clear bilaterally, normal air movement was noted. Heart exam notable for regular rhythm, normal sounds and absence of murmurs, rubs or gallops. Abdomen unremarkable and without evidence of organomegaly, masses, or abdominal aortic enlargement. Bowel sounds are present, abdomen is not distended. Extremities nonedematous, no cyanosis was noted, no clubbing was noted. Neuro: Cranial nerves II through XII are grossly intact, no focal motor deficits were noted, sensation to light touch and pinprick intact, motor exam 5/5 throughout. Psych: Patient is alert and oriented x3, he does not appear anxious or depressed, he does not appear agitated. Patient was discharged home in stable condition on 03/20/2025. Weight / BMI Weight Weight: 165.8 kg Body Mass Index (BMI) 46.9 ABG / Lab / Microbiology Data 03/16/25 05:57 03/16/25 05:57 Laboratory: Laboratory Results - last 24 hr 03/16/25 06:30: POC Glucose 147 H 03/16/25 16:47: POC Glucose 218 H 03/16/25 21:29: POC Glucose 118 H 03/17/25 06:18: POC Glucose 150 H Radiography Diagnostic Testing: Radiology Impression Echocardiogram 03/16/25 07:34 Interpretation Summary The left ventricular ejection fraction is 65 %. Normal LV size. Moderate concentric left ventricular hypertrophy. Mild (1+) eccentric aortic valve insufficiency. Contrast injection was performed. Ordering Physician: Juvenal Cedillo Referring Physician: JENNY LIVE Performed By: Wen Marie RCS D/C Instructions Weight Bearing Status: Full weight bearing DC O2, CPAP, BIPAP Needs Home O2 Discharge instructions: No Meaningful Use Info Meaningful Use Meaningful Use Diagnoses (Choose all that apply): None applicable Discharge Plan Admission Admit Date/Time: 03/16/25 05:37 [...] De La Torre; Elbert Shaffer; Macario Rodriguez NP; Janette Washington; Ernst Parker; Jame Bashir Discharge Orders/Prescriptions Prescriptions: Continued (DME) prodigy Qty: 1 Dose Instruction: As directed Rx Instructions: As directed fluticasone propionate [Cutivate] 0.05 % cream 1 applic TOPICAL QD-BID PRN (Reason: allergic reaction) Qty: 60 12RF albuterol sulfate [Ventolin HFA] 90 mcg/actuation HFA aerosol inhaler 2 puff inhalation Q4H PRN (Reason: sob) Qty: 6.7 3RF bupropion HCl 100 mg tablet sustained-release 12 hr 100 mg PO BID Qty: 180 3RF gabapentin [...] 45 mg PO DAILY Qty: 90 3RF tramadol 50 mg tablet 50 mg PO TID Qty: 90 5RF atorvastatin 40 mg tablet 40 mg PO QHS Qty: 90 3RF tamsulosin 0.4 mg capsule 0.4 mg PO DAILY ammonium lactate 12 % cream 1 applic TOPICAL PRN duloxetine 60 mg capsule,delayed release(DR/EC) 60 mg PO QHS oxycodone 5 mg tablet 5 mg PO Q6H PRN (Reason: pain) 7 Days Qty: 20 0RF levothyroxine [Euthyrox] 75 mcg tablet 75 mcg PO QDAY Qty: 90 3RF No Action magnesium oxide 250 mg magnesium tablet 250 mg PO DAILY ondansetron 4 mg tablet,disintegrating 4 mg PO Q8H PRN PRN (Reason: nausea) multivitamin Tablet 1 tab PO DAILY Eliquis 5 mg tablet 5 mg PO BID furosemide 40 mg tablet 40 mg PO .qd sucralfate 1 gram Tablet 1 g PO TID Qty: 90 0RF pantoprazole [Protonix] 40 mg tablet,delayed release (DR/EC) 40 mg PO BID Qty: 60 0RF spironolactone 25 mg Tablet 12.5 mg PO DAILY Qty: 30 0RF Referrals / Follow Up: Jenny Live NP, NP-C [Primary Care Provider, [facility]] - Within 2 Weeks Janette Washington PA [Med Staff - [facility], Cardiology] - See Referral Note Referral Note: in 3 weeks Disposition Disposition (needs filled in before D/C Order can be placed): Home, Self Care Charges/Coding Visit Charges Inpatient E&M: 32946 Disch Hosp >30min 03/24/25 1115 <Electronically signed by Herbert Mane DO> Cosigner Signature (if applicable): CC: DAVID Live; Dr. Herbert Mane DO~ Signed [facility] Work Phone: Discharge summary Author Herbert Mane [facility] Note Date/Time March 20, 2025 1 :42pm [facility] Medical Records Department [address] [place] [address] Instructions for Home/Discharge Instructions 03/20/25 1307 MR#: [id number] Acct: [id number] Name: MADISONKLAUDIA Rep #:[id number] : 1965 59 From: Herbert Mane DO [...] up appointment, if applicable. Discharge Plan Admission Admit Date/Time: 03/18/25 22:10 Primary Reason for Your Visit: Anemia, gastric ulcer Attending Provider: Herbert Mane Primary Care Provider: Jenny Live NP Consulting Providers: Andrzej Fagan; Isaiah Galloway; Анна Weinstein; Carlyn Brown; Damari Kincaid; Nuzhat Cutler; Kendall Russ Instructions Additional Instructions / Restrictions: You may take Tylenol with your tramadol for pain, do not take any Aleve, ibuprofen, Celebrex, or Toradol for pain Discharge Orders/Prescriptions Prescriptions: New sucralfate 1 gram Tablet 1 g PO TID Qty: 90 0RF pantoprazole [Protonix] 40 mg tablet,delayed release (DR/EC) 40 mg PO BID Qty: 60 0RF Continued (DME) prodigy Qty: 1 Dose Instruction: As directed Rx Instructions: As directed fluticasone propionate [Cutivate] 0.05 % cream 1 applic TOPICAL QD-BID PRN (Reason: allergic reaction) Qty: 60 12RF albuterol sulfate [Ventolin HFA] 90 mcg/actuation HFA aerosol inhaler 2 puff inhalation Q4H PRN (Reason: sob) Qty: 6.7 3RF bupropion HCl 100 mg tablet sustained-release 12 hr 100 mg PO BID Qty: 180 3RF gabapentin [...] 45 mg PO DAILY Qty: 90 3RF tramadol 50 mg tablet 50 mg PO TID Qty: 90 5RF atorvastatin 40 mg tablet 40 mg PO QHS Qty: 90 3RF magnesium oxide 250 mg magnesium tablet 250 mg PO DAILY ondansetron 4 mg tablet,disintegrating 4 mg PO Q8H PRN PRN (Reason: nausea) multivitamin Tablet 1 tab PO DAILY furosemide 40 mg tablet 40 mg PO .qd tamsulosin 0.4 mg capsule 0.4 mg PO DAILY ammonium lactate 12 % cream 1 applic TOPICAL PRN duloxetine 60 mg capsule,delayed release(DR/EC) 60 mg PO QHS oxycodone 5 mg tablet 5 mg PO Q6H PRN (Reason: pain) 7 Days Qty: 20 0RF levothyroxine [Euthyrox] 75 mcg tablet 75 mcg PO QDAY Qty: 90 3RF Changed spironolactone 25 mg Tablet 12.5 mg PO DAILY Qty: 30 0RF Held Eliquis 5 mg tablet 5 mg PO BID Hold Instructions: Resume on 04/03/25. Hold your Eliquis for 2 weeks, then resume it at 5 mg twice a day Discontinued celecoxib 200 mg capsule 200 mg PO BID Qty: 180 3RF ketorolac 10 mg tablet 10 mg PO 4X/DAY PRN PRN (Reason: moderate pain) Referrals / Follow Up: Jenny Live NP, ELDONC [Primary Care Provider, Family Practice] - In 1 Week Referral Note: Have your family physician repeat your CBC next week Janette Washington PA [Med Staff - [facility], Cardiology] - 04/10/25 9:30 am Disposition Disposition (needs filled in before D/C Order can be placed): Home, Self Care 03/20/252<Electronically signed by Herbert Mane DO>Herbert Mane DO CC: DAVID Live; DAVID Weinstein; DAVID Brown; Dr. Nuzhat Cutler MD; Dr. Kendall Russ MD; Dr. Andrzej Fagan MD; NICOLLE Orellana; Isaiah Friend, ~ Signed [facility] Work Phone: Discharge summary Author Herbert Mane [facility] Note Date/Time March 20, 2025 2 :55pm [facility] Medical Records Department [address] [place] [id number] Discharge Summary 03/20/25 1342 MR#: [id number] Acct: [id number] Name: JAME WALLACE Rep #:[id number] : 1965 59 From: Herbert Mane DO PCP: DAVID Marina Status:DIS IN Location: [facility] [id number] Providers Date of Admission: 03/18/25 Date of Discharge: 03/20/25 Primary Care Physician: DAVID Marina Consultations 03/18/25 23:21 Consult: Gastroenterology Routine Consulting Provider: [facility] Reason for Consult: acute GI bleed EMERGENT Consult: No MD Notified: Yes Date Notified: 03/18/25 Time Notified: 23:03 Method of Notification: ED Physician Initiated Reason For Visit: SYNCOPE, GI BLEED Diagnosis Discharge Diagnosis (1) Orthostatic hypotension: Status: Acute Code(s): I95.1 - Orthostatic hypotension Plan 1. Orthostatic hypotension secondary to acute anemia from upper GI bleed (gastric ulcers)-patient's hemoglobin will be rechecked tomorrow morning, continue Protonix and Carafate #2 acute anemia secondary to acute upper GI bleed-CBC will be rechecked tomorrow #3 paroxysmal [id number] will continue metoprolol, he is off Eliquis #4 gastric ulcers secondary to use of nonsteroidal anti-inflammatory agents- patient has been cautioned to remain off these medications #5 bacteriuria-patient is receiving IV Rocephin, await urine culture results #6 hypothyroidism-patient is on Synthroid #7 chronic diastolic congestive heart failure-patient is stable at this time Total clinical time spent by myself addressing the patient's medical issues, reviewing all of his data, and collaborating with the patient's care team: 35 minutes Medications at Discharge Home Medications prodigy #1 ea 03/02/18 fluticasone propionate 0.05 % topical cream (Cutivate) 1 applic topical QD-BID PRN allergic reaction #60 grams 11/05/20 albuterol sulfate 90 mcg/actuation aerosol inhaler (Ventolin HFA) 2 puff inhalation Q4H PRN sob #6.7 grams 08/22/24 bupropion HCl 100 mg tablet,12 hr sustained-release 100 mg PO BID #180 tabs 08/22/24 gabapentin 400 mg capsule 400 mg PO TID 90 days #270 caps 08/22/24 glimepiride 4 mg tablet 4 mg PO QAM #90 tabs 08/22/24 metformin 850 mg tablet 850 mg PO BID #180 tabs 08/22/24 metoprolol tartrate 37.5 mg tablet 37.5 mg PO BID #180 tabs 08/22/24 mirtazapine 15 mg tablet 7.5 mg (1/2 x 15 mg) PO QHS PRN sleep 90 days #90 tabs 08/22/24 pioglitazone 45 mg tablet 45 mg PO DAILY #90 tabs 08/22/24 tramadol 50 mg tablet 50 mg PO TID neuropathic pain #90 tabs 08/22/24 levothyroxine 75 mcg tablet (Euthyrox) 75 mcg PO QDAY #90 tabs 11/03/24 atorvastatin 40 mg tablet 40 mg PO QHS #90 tabs 11/27/24 ammonium lactate 12 % topical cream 1 applic topical PRN CRACKED HANDS 03/06/25 duloxetine 60 mg capsule,delayed release 60 mg PO QHS depression 03/06/25 tamsulosin 0.4 mg capsule 0.4 mg PO DAILY enlarged prostate 03/06/25 oxycodone 5 mg tablet 5 mg PO Q6H PRN pain 7 days #20 tabs 03/11/25 apixaban 5 mg tablet (Eliquis) 5 mg PO BID Afib 03/18/25 Held on 03/20/25. Instructions: Resume on 04/03/25. Hold your Eliquis for 2 weeks, then resume it at 5 mg twice a day furosemide 40 mg tablet 40 mg PO .qd CHF 03/18/25 magnesium oxide 250 mg PO DAILY supplement 03/18/25 multivitamin 1 tab PO DAILY supplement 03/18/25 ondansetron 4 mg disintegrating tablet 4 mg PO Q8H PRN PRN nausea 03/18/25 pantoprazole 40 mg tablet,delayed release (Protonix) 40 mg PO BID #60 tabs 03/20/25 spironolactone 25 mg tablet 12.5 mg (1/2 x 25 mg) PO DAILY #30 tabs 03/20/25 sucralfate 1 gram tablet 1 g PO TID #90 tabs 03/20/25 Hospital Course Operations None Procedures EGD Summary of Care Provided Minutes Spent on Discharge: 31 Hospital Course: This 59-year-old white male was seen in the emergency room at [facility] with a complaint of lightheadedness and near syncope. This has been going on for the past 2 weeks when the patient got up from a seated position. Patient had recently been hospitalized for congestive heart failure at [facility] and discharged approximately 24 hours prior. Patient saw hisPCP today and was told to come to the ER for further evaluation. CBC showed hemoglobin of 11.1, chemistry profile was relatively unremarkable except for creatinine of 1.7. Urinalysis showed possible UTI with 3+ bacteria elevated white blood cells and nitrites. Stool for occult blood was positive, patient was started on a Protonix drip and admitted to PCU for further care. Blood count was monitored, he did not require blood transfusion, he underwent an EGD which showed multiple gastric ulcers without bleeding. Patient was cautioned against taking nonsteroidal anti-inflammatory agents which she had been taking on an outpatient basis along with his Eliquis. On 03/20/2025, patient was seen and examined: On examination he appeared in good health and spirits. Vital signsas documented. Skin warm and dry and without overt rashes. Neck without JVD, neck was supple, trachea midline, thyroid was normal. Lungs clear bilaterally, normal air movement was noted. Heart exam notable for regular rhythm, normal sounds and absence of murmurs, rubs or gallops. Abdomen unremarkable and withoutevidence of organomegaly, masses, or abdominal aortic enlargement. Bowel soundsare present, abdomen is not distended. Extremities nonedematous, no cyanosis was noted, no clubbing was noted. Neuro: Cranial nerves II through XII are grossly intact, no focal motor deficits were noted, sensation to light touch andpinprick intact, motor exam 5/5 throughout. Psych: Patient is alert and oriented x3, he does not appear anxious or depressed, he does not appear agitated. Patient was discharged home in stable condition on 03/20/2025. Weight / BMI Weight Weight: 164.8 kg Body Mass Index (BMI) 46.6 ABG / Lab / Microbiology Data 03/20/25 05:01 03/19/25 04:36 Laboratory: Laboratory Results - last 24 hr 03/20/25 00:12: POC Glucose 194 H 03/20/25 05:01: WBC 6.3, RBC 2.77 L, Hgb 8.6 L, Hct 25.9 L, MCV 93.5, MCH 31.0, MCHC 33.2, RDW Std Deviation 46.0 H, RDW Coeff of Sarah 13.5, Plt Count 171, MPV 12.3 H, Immature Gran % (Auto) 0.200, Neut % (Auto) 56.6, Lymph % (Auto) 26.8, [place] % (Auto) 11.5 H, Eos % (Auto) 4.3, Baso % (Auto) 0.6, Absolute Neuts (auto) 3.6, Absolute Lymphs (auto) 1.68, Nucleated RBC % 0 03/20/25 12:17: POC Glucose 185 H Microbiology: Microbiology 03/18/25 20:00 Urine, Clean Catch Urine Culture - Final Gram negative edie 03/18/25 21:14 Stool Stool Occult Blood (LETY) - Final Occult Blood Positive D/C Instructions Weight Bearing Status: Full weight bearing DC O2, CPAP, BIPAP Needs Home O2 Discharge instructions: No Meaningful Use Info Meaningful Use Meaningful Use Diagnoses (Choose all that apply): None applicable Discharge Plan Admission Admit Date/Time: 03/18/25 22:10 Primary Reason for Your Visit: Anemia, gastric ulcer Attending Provider: Herbert Mane Primary Care Provider: Jenny Live NP Consulting Providers: Andrzej Fagan; Isaiah Galloway; Анна Weinstein; Carlyn Brown; Damari Kincaid; Nuzhat Cutler; Kendall Russ Instructions Additional Instructions / Restrictions: You may take Tylenol with your tramadol for pain, do not take any Aleve, ibuprofen, Celebrex, or Toradol for pain Discharge Orders/Prescriptions Prescriptions: New sucralfate 1 gram Tablet 1 g PO TID Qty: 90 0RF pantoprazole [Protonix] 40 mg tablet,delayed release (DR/EC) 40 mg PO BID Qty: 60 0RF Continued (DME) prodigy Qty: 1 Dose Instruction: As directed Rx Instructions: As directed fluticasone propionate [Cutivate] 0.05 % cream 1 applic TOPICAL QD-BID PRN (Reason: allergic reaction) Qty: 60 12RF albuterol sulfate [Ventolin HFA] 90 mcg/actuation HFA aerosol inhaler 2 puff inhalation Q4H PRN (Reason: sob) Qty: 6.7 3RF bupropion HCl 100 mg tablet sustained-release 12 hr 100 mg PO BID Qty: 180 3RF gabapentin [...] 45 mg PO DAILY Qty: 90 3RF tramadol 50 mg tablet 50 mg PO TID Qty: 90 5RF atorvastatin 40 mg tablet 40 mg PO QHS Qty: 90 3RF magnesium oxide 250 mg magnesium tablet 250 mg PO DAILY ondansetron 4 mg tablet,disintegrating 4 mg PO Q8H PRN PRN (Reason: nausea) multivitamin Tablet 1 tab PO DAILY furosemide 40 mg tablet 40 mg PO .qd tamsulosin 0.4 mg capsule 0.4 mg PO DAILY ammonium lactate 12 % cream 1 applic TOPICAL PRN duloxetine 60 mg capsule,delayed release(DR/EC) 60 mg PO QHS oxycodone 5 mg tablet 5 mg PO Q6H PRN (Reason: pain) 7 Days Qty: 20 0RF levothyroxine [Euthyrox] 75 mcg tablet 75 mcg PO QDAY Qty: 90 3RF Changed spironolactone 25 mg Tablet 12.5 mg PO DAILY Qty: 30 0RF Held Eliquis 5 mg tablet 5 mg PO BID Hold Instructions: Resume on 04/03/25. Hold your Eliquis for 2 weeks, then resume it at 5 mg twice a day Discontinued celecoxib 200 mg capsule 200 mg PO BID Qty: 180 3RF ketorolac 10 mg tablet 10 mg PO 4X/DAY PRN PRN (Reason: moderate pain) Referrals / Follow Up: Jenny Live NP, BRUSH WASHER-C [Primary Care Provider, Family Practice] - In 1 Week Referral Note: Have your family physician repeat your CBC next week Janette Washington PA [Med Staff - [facility], Cardiology] - 04/10/25 9:30 am Disposition Disposition (needs filled in before D/C Order can be placed): Home, Self Care Charges/Coding Visit Charges Inpatient E&M: 77058 Disch Hosp >30min 03/24/25 1507 <Electronically signed by Herbert Mane DO> Cosigner Signature (if applicable): CC: DAVID Live; Dr. Herbert Mane, DO~ Signed [facility] Work Phone: Evaluation + Plan note Future Appointments Appointment Date:05/22/2025 03:30:00 PM Scheduled Provider:LIMA COLE CNP Location:[place] [address] Appointment Type:Established Patient Office [facility] Evaluation note* Diagnosis Dizziness- Primary Dizziness and giddiness Folliculitis Other specified disease of hair and hair follicles [facility] Diagnosis Onset Date Resolution Status Painful skin lesion acute Sebaceous cyst acute Diabetes type 2, uncontrolled acute Fatigue acute Low testosterone acute Recurrent knee pain acute [facility] Work Phone: Evaluation note* Diagnosis Onset Date Resolution Status Diabetes type 2, uncontrolled acute Fatigue acute Low testosterone acute Recurrent knee pain acute Depression acute Diabetes type 2, uncontrolled acute Hypertension chronic [facility] Work Phone: Evaluation note* Diagnosis Onset Date Resolution Status Diabetes type 2, uncontrolled acute Lumbar back pain with radicu lopathy affecting lower extremity acute Diabetes type 2, uncontrolled acute Lumbar back pain with radicu lopathy affecting lower extremity acute Neuropathy acute Acute dyspnea acute Fatigue acute Left otitis media acute Post-COVID syndrome acute [facility] Work Phone: Evaluation note* Diagnosis Pain- Primary Generalized pain documented in this encounter [facility] note* Diagnosis Onset Date Resolution Status Depression acute Diabetes type 2, uncontrolled acute Hyperlipidemia LDL goal <130 acute Insomnia acute Migraine acute Hypertension chronic [facility] Work Phone: History and physical note [facility] Date/Time March 19, 2025 6 :57am [facility] Medical Records Department [address] [place] [address] H&P Exam - Hospitalist 03/18/25 2152 MR#: [id number] Acct: [id number] Name: JMAE WALLACE Rep #:[id number] : 1965 59 From: Nuzhat Cutler MD PCP: DAVID Marina Status:ADM IN [id number] - General General Date of Admission: 03/18/25 Date of Service: 03/18/25 HPI Narrative JAME WALLACE, is a 59 M with a PMH as outlined who was admitted via the ED on03/18/2025 with a complaint of lightheadedness and near syncope. Patient apparently feels lightheaded whenever he gets up and has gone on over the past 2weeks. He feels dizzy and lightheaded when he stands and feels better when he sits down and has also had several episodes of syncope. He has had associated tinnitus and spinning sensation and states his face feels flushed and he has blurry vision at times associated with this. He denied any nausea or vomiting, fever or chills, chest pain or palpitations. He denied any diarrhea but admitted to dark stools. He had recently been on oral toradol for kidney stones and is also chronically on celebrex at home. Review of systems otherwise negative. He went to see his PCP today and was told to come into the ED. Vitals in the ED were blood pressure 110/53, pulse rate of 76, respiratory rate of 15 and she was saturating at 97% on room air. CBC showed hemoglobin of 11.1 and WBC of 10.8. Platelets were 245. D-dimer was less than 0.27. Chemistry shows sodium of 138 with potassium of 5 and bicarb of 30.2. Creatinine is 1.7. URinalysis showed evidence of UTI with 3+ bacteria, elevated wbc and nitrites. Chest x-ray showed elevated right hemidiaphragm likely with overlying atelectasis which was unchanged from prior imaging but no other acute cardiopulmonary pathology. His hemoglobin was noted to have dropped from 12.7 on 03/16/2025 to 11.1 today. Stool for occult blood done was positive. He is on Eliquis. Was started on pantoprazole drip after getting pantoprazole bolus in the ED and is being admitted to be managed for dizziness and near syncope dueto acute GI bleed. [facility] Medical History Diabetes Chronic pain Kidney stones [...] Medications ?Medication ?Instructions ?Recorded ?Last Taken ?Type prodigy #1 ea 03/02/18 Unknown Histo ry fluticasone propionate 0.05 % 1 applic topical QD-BID PRN 11/05/20 Unknown Rx topical cream (Cutivate) allergic reaction #60 grams albuterol sulfate 90 mcg/actuation 2 puff inhalation Q 4H PRN sob #6.7 08/22/24 Unknown Rx aerosol inhaler (Ventolin HFA) grams bupropion HCl 100 mg tablet,12 hr 100 mg PO BID #180 t abs 08/22/24 03/18/25 23:50 Rx sustained-release celecoxib 200 mg capsule 200 mg PO BID #180 caps 08/0303/18/25 11:50 Rx gabapentin 400 mg capsule 400 mg PO TID 90 days #270 c aps 08/22/24 03/18/25 06:51 Rx glimepiride 4 mg tablet 4 mg PO QAM #90 tabs 5 03/18/25 06:51 Rx metformin 850 mg tablet 850 mg PO BID #180 tabs 08/0303/18/25 06:52 Rx metoprolol tartrate 37.5 mg tablet 37.5 mg PO BID #180 tabs 08/22/24 03/18/25 06:52 Rx mirtazapine 15 mg tablet 7.5 mg (1/2 x 15 mg) PO QHS PRN 08/22/24 03/17/25 23:52 Rx sleep 90 days #90 tabs pioglitazone 45 mg tablet 45 mg PO DAILY #90 tabs 08/0303/17/25 18:53 Rx tramadol 50 mg tablet 50 mg PO TID neuropathic leigha n #90 08/22/24 03/18/25 06:54 Rx tabs levothyroxine 75 mcg tablet 75 mcg PO QDAY #90 tabs 03/18/25 06:51 Rx (Euthyrox) atorvastatin 40 mg tablet 40 mg PO QHS #90 tabs 03/17/25 23:49 Rx ammonium lactate 12 % topical cream 1 applic topical P RN CRACKED HANDS 03/06/25 Unknown History duloxetine 60 mg capsule,delayed 60 mg PO QHS depressi on 03/06/25 03/17/25 23:50 History release ketorolac 10 mg tablet 10 mg PO 4X/DAY PRN PRN mode rate 03/06/25 03/10/25 History pain tamsulosin 0.4 mg capsule 0.4 mg PO DAILY enlarged pro state 03/06/25 03/18/25 06:54 History oxycodone 5 mg tablet 5 mg PO Q6H PRN pain 7 days #20 03/11/25 03/15/25 Rx tabs spironolactone 25 mg tablet 25 mg PO DAILY #30 tabs Unknown Rx apixaban 5 mg tablet (Eliquis) 5 mg PO BID Afib 03/18/25 06:54 History furosemide 40 mg tablet 40 mg PO .qd CHF 03/18/25 06:55 History magnesium oxide 250 mg PO DAILY supplement 1 03/18/25 06:52 History multivitamin 1 tab PO DAILY supplement 03/18/25 06:52 History ondansetron 4 mg disintegrating 4 mg PO Q8H PRN PRN na usea 03/18/25 Unknown History tablet Allergy/AdvReac Type Severity Reaction Status Date / Time No Known Allergies Allergy Verified 03/18/25 18:06 Family History Other Esophageal cancer FH: ovarian cancer Surgical History History of surgery History of foot surgery History of colonoscopy Lump of skin of back History of colectomy History of appendectomy History of cholecystectomy Social History household members: spouse Smoking Status: Never smoker ROS Constitutional Constitutional: Reports fatigue, malaise and weakness; Denies anorexia, chills or fever(s) Eyes Eyes: Denies change in vision ENT HEENT: Denies dysphagia, epistaxis, headache(s) or sore throat Cardiovascular Cardiovascular: Reports lightheadedness and syncope; Denies chest pain, dyspnea on exertion, edema, orthopnea, palpitations, paroxysmal nocturnal dyspnea or rapid heart rate Respiratory/Chest Respiratory/Chest: Denies cough, dyspnea, shortness of breath at rest, shortnessof breath with exertion or wheezing Gastrointestinal Gastrointestinal: Reports melena; Denies abdominal pain, diarrhea, dyspepsia, nausea or vomiting Genitourinary Genitourinary: Denies burning urination or dysuria Musculoskeletal Musculoskeletal: Denies arthralgias Neurologic Neurologic: Reports dizziness and syncope; Denies confusion, disequilibrium, focal weakness, headache(s), numbness or seizures Psychiatric Psychiatric: Denies anxiety or depression Vital Signs Vital Signs Vital Signs: 03/18/25 18:06 03/18/25 18:37 03/18/25 19:06 Temperature 97.2 F L Temperature Source Temporal Pulse Rate 84 85 Pulse Rate [Lying] Pulse Rate [Sitting (for 1 minute prior to obtaining)] Pulse Rate [Standing (for 1 minute prior to obtaining)] Respiratory Rate 20 H 24 H Respiratory Pattern Normal Blood Pressure 117/64 110/63 Blood Pressure [Lying] Blood Pressure [Sitting (for 1 minute prior to obtaining)] Blood Pressure [Standing (for 1 minute prior to obtaining)] Blood Pressure Mean 81 78 Blood Pressure Mean [Lying] Blood Pressure Mean [Sitting (for 1 minute prior to obtaining)] Blood Pressure Mean [Standing (for 1 minute prior to obtaining)] Pulse Ox 95 100 Oxygen Delivery Method Room Air Room Air 03/18/25 19:23 03/18/25 20:00 03/18/25 21:00 Temperature Temperature Source Pulse Rate 75 76 Pulse Rate [Lying] 79 Pulse Rate [Sitting (for 1 minute prior to obtaining)] 78 Pulse Rate [Standing (for 1 minute prior to obtaining)] 130 H Respiratory Rate 13 15 Respiratory Pattern Blood Pressure 94/65 110/53 L Blood Pressure [Lying] 114/61 Blood Pressure [Sitting (for 1 minute prior to obtaining)] 101/63 Blood Pressure [Standing (for 1 minute prior to obtaining)] 73/51 L Blood Pressure Mean 74 72 Blood Pressure Mean [Lying] 78 Blood Pressure Mean [Sitting (for 1 minute prior to obtaining)] 75 Blood Pressure Mean [Standing (for 1 minute prior to obtaining)] 58 Pulse Ox 98 97 Oxygen Delivery Method Room Air Room Air Weight Weight: 365 lb 1.368 oz Body Mass Index (BMI) 46.8 Physical Exam Const alert, oriented x3 and no apparent distress Constitutional Narrative: class III obesity HEENT normocephalic, head/scalp atraumatic, moist oral mucous membranes and oropharynxnormal Mouth: oral and palatal mucosa normal Eyes PERRL, EOMs intact bilaterally and conjunctivae normal Neck supple and no JVD Resp normal respiratory effort, no retractions, no use of accessory muscles and clearto auscultation bilaterally Cardio regular rate, regular rhythm, S1 normal heart sound, S2 normal heart sound and no murmurs GI normal to inspection, nondistended, normoactive bowel sounds, soft to palpation,non-tender and non-distended Extremity normal to inspection, full ROM and no clubbing, cyanosis or edema Neuro oriented x3, moves all extremities and no focal motor deficits Sensorium / Orientation: awake and alert Motor Exam: strength 5/5 throughout Results Lab / Micro Data 03/19/25 04:36 03/19/25 04:36 Labs: Laboratory Results - last 24 hr 03/18/25 18:34: WBC 10.8, RBC 3.60 L, Hgb 11.1 L, Hct 34.1 L, MCV 94.7 H, MCH 30.8, MCHC 32.6, RDW Std Deviation 45.5 H, RDW Coeff of Sarah 13.2, Plt Count 245,MPV 12.3 H, Immature Gran % (Auto) 0.300, Neut % (Auto) 66.1, Lymph % (Auto) 18.6 L, [place] % (Auto) 11.3 H, Eos % (Auto) 3.1, Baso % (Auto) 0.6, Absolute Neuts (auto) 7.1, Absolute Lymphs (auto) 2.00, Nucleated RBC % 0, D-Dimer Quant (PE/DVT) < 0.27 L, Sodium 138, Potassium 5.0, Chloride 99, Carbon Dioxide 30.2, Anion Gap 9, BUN 69 H, Creatinine 1.70 H, Estim Creat Clear Calc 77.42, Est GFR (MDRD) Non-Af 46 L, BUN/Creatinine Ratio 40.4 H, Glucose 180 H, Calcium 9.5, NT pro BNP II 128 Imaging Radiology Impression Chest X-Ray 03/18/25 19:35 IMPRESSION: Elevated right hemidiaphragm, likely with overlying atelectasis. Unchanged. Reading Location: [id number] Assessment & Plan Assessment/Plan (1) Orthostatic hypotension: (2) Acute upper gastrointestinal bleeding: PLAN: Plan #Syncope likely due to acute GI bleed * Patient admitted with complaint of dizziness and lightheadedness. The symptoms were worsened when he got up from a sitting position. He also had some episodes of syncope. * Hemoglobin noted to have dropped from 12.72 days ago to 11.1 today. His baseline is usually around 13-14. * Stool for occult blood and was positive. He is on Eliquis. * [facility]. Started on IV pantoprazole drip in the ED after being given a bolus. Will continue this. * Keep n.p.o. for now. Hydrate with IV fluid normal saline at 125 cc/h. Consult gastroenterology. * Consult PT OT. Fall precautions. Check orthostatics. * Hold NSAIDs-toradol and celebrex * #BHAVYA: Creatinine is 1.7 with a baseline creatinine of around 1.4. Likely due toGI bleed. Will hydrate with IV fluids and expect will improve. #UTI: urinalysis showed 2+ bacteria. Will get urine cultures. Start on IV ceftriaxone. #Hyperlipidemia: On statin #Depression: Bupropion and duloxetine #Type 2 diabetes mellitus: Hold glimepiride and metformin. Insulin sliding scale. Accu-Cheks ACHS. #Hypothyroidism: On Synthroid #Hypertension: On metoprolol and spironolactone #BPH: On Flomax DVT prophylaxis: SCDs in light of GI bleed CODE STATUS: full code * Patient and family counseled extensively about different types of CODE STATUS including full code, DNR CCA and DNR CCA. * Patient elects to be full code. * Total bhfx-sm-rkup time 16 minutes. Charges/Coding Visit Charges Inpatient E&M: 70789 Init Hosp L3 Procedures Hospitalists Procedures: 25976 Advncd Care Plan 30 Min 03/19/25 0657 <Electronically signed by Nuzhat Cutler MD> Cosigner Signature (if applicable): CC: BRUSH WASHER-C Jenny Live; Dr. Nuzhat Cutler MD~ Signed [facility] Work Phone: History of Present illness [...] medication regimen. He denies medication side effects. [facility] Work Phone: Hospital course Narrative No data available for this section [facility] Hospital Discharge instructions No data available for this section [facility] Hospital Discharge instructionsAdditional Instructions You may take Tylenol with your tramadol for pain, do not take any Aleve, ibuprofen, Celebrex, or Toradol for pain Date of Discharge: 03/20/25[facility] Work Phone: Progress note No data available for this section [facility] Progress note Author Herbert Mane [facility] Note Date/Time March 20, 2025 1 :41pm [facility] Medical Records Department [address] [place] [address] Progress Note - Hospitalist 03/19/25 1823 MR#: [id number] Acct: [id number] Name: JAME WALLACE A Rep #:[id number] : 1965 59 From: Herbert Mane DO PCP: DAVID Marina Status:ADM IN Location: [place] [address] [id number] Subjective Subjective Patient was seen and examined today, EGD was done which showed nonbleeding gastric ulcers, there were no lesions in the duodenum. Patient is on a Protonixdrip and Carafate, CBC will be repeated tomorrow, patient's hemoglobin this morning was 9.3. Objective Data Objective Data Vital Signs: Vital Signs Temp Pulse Resp BP Pulse Ox O2 Del Method 98.2 F 83 16 100/50 L 97 Room Air 03/19/25 16:28 03/19/25 16:28 03/19/25 16:28 03/19/25 16:28 03/19/25 16:28 03/19/25 16:25 Oxygen Delivery Method Room Air Weight: 164.8 kg Body Mass Index (BMI) 46.6 Intake & Output: Intake and Output for Last 24 Hours 03/17/25 03/18/25 03/19/25 23:59 23:59 23:59 Intake Total 2034 1499.67 / 1499.67 Output Total 1000 / 1000 Balance 2034 499.67 / 499.67 Lab / Micro Data 03/20/25 05:01 03/19/25 04:36 Labs: Laboratory Results - last 24 hr 03/18/25 18:34: WBC 10.8, RBC 3.60 L, Hgb 11.1 L, Hct 34.1 L, MCV 94.7 H, MCH 30.8, MCHC 32.6, RDW Std Deviation 45.5 H, RDW Coeff of Sarah 13.2, Plt Count 245,MPV 12.3 H, Immature Gran % (Auto) 0.300, Neut % (Auto) 66.1, Lymph % (Auto) 18.6 L, [place] % (Auto) 11.3 H, Eos % (Auto) 3.1, Baso % (Auto) 0.6, Absolute Neuts (auto) 7.1, Absolute Lymphs (auto) 2.00, Nucleated RBC % 0, D-Dimer Quant (PE/DVT) < 0.27 L, Sodium 138, Potassium 5.0, Chloride 99, Carbon Dioxide 30.2, Anion Gap 9, BUN 69 H, Creatinine 1.70 H, Estim Creat Clear Calc 77.42, Est GFR (MDRD) Non-Af 46 L, BUN/Creatinine Ratio 40.4 H, Glucose 180 H, Calcium 9.5, NT pro BNP II 128 03/18/25 20:00: Urine Color Yellow, Urine Clarity Cloudy, Urine pH 5.0, Ur Specific [place] 1.020, Urine Protein 100 H, Urine Glucose (UA) 100 H, Urine Ketones Negative, Urine Occult Blood 250 H, Urine Nitrite Positive H, Urine Bilirubin 1 H, Urine Urobilinogen Normal, Ur Leukocyte Esterase 500 H, Urine [id number] SEEN, Urine WBC 10-25 SEEN, Ur Squamous Epith Cells 0 SEEN, Amorphous Sediment 2+, Urine Bacteria 3+, Urine Mucus 0 SEEN 03/19/25 00:51: POC Glucose 131 H 03/19/25 04:36: WBC 8.0, RBC 3.03 L, Hgb 9.3 L, Hct 28.7 L, MCV 94.7 H, MCH 30.7, MCHC 32.4, RDW Std Deviation 46.0 H, RDW Coeff of Sarah 13.3, Plt Count 189,MPV 12.6 H, Immature Gran % (Auto) 0.400, Neut % (Auto) 58.6, Lymph % (Auto) 28.7, [place] % (Auto) 8.0, Eos % (Auto) 3.5, Baso % (Auto) 0.8, Absolute Neuts (auto) 4.7, Absolute Lymphs (auto) 2.29, Nucleated RBC % 0, PT 14.3, INR 1.1, APTT 28.6, Sodium 141, Potassium 4.8, Chloride 106, Carbon Dioxide 27.5, Anion Gap 8, BUN 62 H, Creatinine 1.50 H, Estim Creat Clear Calc 87.50, Est GFR (MDRD)Non-Af 54 L, BUN/Creatinine Ratio 41.3 H, Glucose 151 H, Calcium 8.8, Total Bilirubin 0.29, Direct Bilirubin 0.12, AST 15, ALT 10, Alkaline Phosphatase 66, Total Protein 5.5 L, Albumin 3.2 L, Globulin 2.3 03/19/25 05:31: POC Glucose 149 H 03/19/25 11:40: POC Glucose 155 H Micro: Microbiology 03/18/25 21:14 Stool Stool Occult Blood (LETY) - Final Occult Blood Positive Radiography Diagnostic Testing: Radiology Impression Chest X-Ray 03/18/25 19:35 IMPRESSION: Elevated right hemidiaphragm, likely with overlying atelectasis. Unchanged. Reading Location: [facility] Physical Exam Const alert, oriented x3, no apparent distress and healthy appearing Constitutional Narrative: Patient has class III obesity General Appearance: cooperative, well kempt and well developed Orientation / Consciousness: awake, oriented to person, oriented to place and oriented to time HEENT normocephalic, head/scalp atraumatic and moist oral mucous membranes Eyes PERRL, EOMs intact bilaterally and conjunctivae normal Neck supple, no JVD, thyroid normal and no carotid bruits General: trachea midline Resp normal respiratory effort, no retractions, no use of accessory muscles and clearto auscultation bilaterally Auscultation: Negative for rales, rhonchi or wheezes Cardio regular rate, regular rhythm, S1 normal heart sound, S2 normal heart sound, no murmurs, no rub and no gallops GI normal to inspection, nondistended, normoactive bowel sounds, soft to palpation,non-tender and non-distended Extremity no clubbing, cyanosis or edema Skin no rashes or lesions noted General Skin Exam: no breakdown Neuro oriented x3, CN's II-XII intact bilaterally, no focal motor deficits and no sensory deficits noted Sensorium / Orientation: awake and alert Speech: speech normal Psych affect normal Assessment & Plan Assessment/Plan (1) Orthostatic hypotension: PLAN: Plan 1. Orthostatic hypotension secondary to acute anemia from upper GI bleed (gastric ulcers)-patient's hemoglobin will be rechecked tomorrow morning, continue Protonix and Carafate #2 acute anemia secondary to acute upper GI bleed-CBC will be rechecked tomorrow #3 paroxysmal [id number] will continue metoprolol, he is off Eliquis #4 gastric ulcers secondary to use of nonsteroidal anti-inflammatory agents- patient has been cautioned to remain off these medications #5 bacteriuria-patient is receiving IV Rocephin, await urine culture results #6 hypothyroidism-patient is on Synthroid #7 chronic diastolic congestive heart failure-patient is stable at this time Total clinical time spent by myself addressing the patient's medical issues, reviewing all of his data, and collaborating with the patient's care team: 35 minutes Charges/Coding Visit Charges Inpatient E&M: 00775 Subs Hosp L2 03/20/25 1341 <Electronically signed by Herbert Mane DO> Cosigner Signature (if applicable): CC: ~ Signed [facility] Work Phone: Reason for referral (narrative)* Diagnostic Procedure Only (Routine) - Authorized Specialty Diagnoses / Procedures Referred By Contac t Referred To Contact XR IMAGING Diagnoses Pain Procedures XR HAND GENERAL 3V PA/LAT/OBL LEFT RADEX HAND MINIMUM 3 VIEWS VetovitzDuyenMadhuri, PA-C [address] [place] [address] [place] [id number] Referral ID Status Reason Start Date Expiration Date Visits Requested Visits Authorized [id number] Authorized Auto-Generat ed Referral 02/01/2023 03/02/2024 1 1 * Diagnostic Procedure Only (Routine) - Authorized Specialty Diagnoses / Procedures Referred By Contac t Referred To Contact XR IMAGING Diagnoses Pain Procedures XR HAND GENERAL 3V PA/LAT/OBL RIGHT RADEX HAND MINIMUM 3 VIEWS Michelletovitej, Madhuri, PA-C [address] [place] [address] [place] [id number] Referral ID Status Reason Start Date Expiration Date Visits Requested Visits Authorized [id number] Authorized Auto-Generat ed Referral 02/01/2023 03/02/2024 [address] [facility] for referral (narrative)No reason for referral information [facility] Work Phone: Summary Purpose Family History [...] FoundDocuments on File Type Date Recorded Patient Wire Frame Maker Expl anation Advance Directive(s) 08/11/2019 2:21 PM Latest Code Status on File Code Status Date Activated Date Inactivated Comments Full Code 03/03/2021 9:17 AM 03/06/2021 5:35 PM Full Code Order Discussed With: Patient Full Code 08/11/2020 12:29 PM 08/14/2020 1:40 AM Documents on File Type Date Recorded Patient Wire Frame Maker Expl anation Advance Directives and Living Will Power of Plant Attendant Or Assistant Operator Documents on File Type Date Recorded Patient Wire Frame Maker Expl anation Advance Directive(s) 03/02/2021 5:26 PM Advance Directive(s) 02/11/2021 6:46 PM Advance Directive(s) 08/09/2020 3:09 AM Advance Directive(s) 10/22/2019 9:35 AM Advance Directive(s) 10/13/2019 4:48 PM Advance Directive(s) 08/11/2019 10:31 AM Advance Directive(s) 08/11/2019 2:21 PM Advance Directive(s) 03/20/2019 4:37 PM Advance Directive(s) 05/27/2018 9:34 PM Advance Directive(s) 08/07/2017 3:46 PM Documents on File Type Date Recorded Patient Wire Frame Maker Expl anation Advance Directive(s) 10/03/2021 4:51 [...] Documents on File Type Date Recorded Patient Wire Frame Maker Expl anation Advance Directive(s) 08/11/2019 2:21 [...] Do you have a Healthcare Power of Plant Attendant Or Assistant Operator? Yes March 06, 2025 2:04pm Advance Directive Response Recorded Date/ Time Do you have a Healthcare Pow er of Plant Attendant Or Assistant Operator? Yes March 16, 2025 5:22am Do you have a Healthcare Pow er of Plant Attendant Or Assistant Operator? Yes March 18, 2025 11:22pm Name of Medical Power of Plant Attendant Or Assistant Operator beckie mcdonald March 18, 2025 11:22pm Do you have a Healthcare Pow er of Plant Attendant Or Assistant Operator? Yes March 06, 2025 2:04pm Chief Complaint [...] 3:58pm Migraine NEC/intractable November 27, 2024 3:58pm Chief Complaint Admit Date CYSTO,URETERSCOPY,RETRO,LASER,STENT Octo 2024 7:42am AE CHF WITH RESPIRATORY INSUFFCIENCY Mar anjum2024 5:37am AE CHF WITH RESPIRATORY INSUFFCIENCY Mar anjum2024 5:39am AE CHF WITH RESPIRATORY INSUFFCIENCY Mar anjum2024 7:24am AE CHF WITH RESPIRATORY INSUFFCIENCY Mar anjum2024 7:33am AE CHF WITH RESPIRATORY INSUFFCIENCY Mar anjum 2024 1:21pm Hospital f/up(CHF)weakness March 18, 2025 5:00pm SYNCOPE, GI BLEED March 18, 2025 1 0:10pm PREOP March 19, 2025 5 :04am SYNCOPE, GI BLEED March 19, 2025 3 :50pm SYNCOPE, GI BLEED March 19, 2025 6 :23pm SYNCOPE, GI BLEED March 20, 2025 1 :42pm Reason for Visit Admit Date CHF exacerbation March 16, 2025 5 :37am Atrial fibrillation March 16, 2025 5 :37am Chronic anticoagulation March 16 5:37am Diaphragm dysfunction March 16, 2025 5:37am Hypertension March 16, 2025 5 :37am Morbid obesity with BMI of 45.0-49.9, ad ult March 16, 2025 5:37am ADDY (obstructive sleep apnea) March 162024 5:37am Respiratory insufficiency March 16, 2025 5:37am Orthostatic hypotension March 18 5:00pm Rib pain on left side March 18, 2025 5:00pm Syncopal episodes March 18, 2025 5 :00pm Acute upper gastrointestinal bleeding Oc tober 2024 10:10pm Dizziness March 18, 2025 1 0:10pm Orthostatic hypotension March 18 10:10pm Additional Source Comments (unrecognized sect ion and content) No Status Records FoundNo Status Records FoundNo Status Records FoundNo Status Records FoundNo Status Records FoundNo Status Records FoundNo Status Records FoundNo Status Records FoundNo Status Records FoundNo Status Records FoundNo Status Records FoundNo Status Records FoundNo Status Records Found INFORMATION SOURCE (unrecogn ized section and content) DATE CREATED AUTHOR 05/29/2018 [facility] DATE CREATED AUTHOR AUTHOR'S ORGANIZ ATION 02/11/2019 [facility] DATE CREATED AUTHOR AUTHOR'S ORGANIZ ATION 10/19/2019 [facility] DATE CREATED AUTHOR AUTHOR'S ORGANIZ ATION 12/25/2020 [facility] DATE CREATED AUTHOR AUTHOR'S ORGANIZ ATION 12/25/2020 [facility] DATE CREATED AUTHOR AUTHOR'S ORGANIZ ATION 02/09/2022 [facility] DATE CREATED AUTHOR AUTHOR'S ORGANIZ ATION 07/20/2023 [facility] DATE CREATED AUTHOR AUTHOR'S ORGANIZ ATION 02/25/2025 [facility] DATE CREATED AUTHOR AUTHOR'S ORGANIZ ATION 03/06/2025 [facility] DATE CREATED AUTHOR AUTHOR'S ORGANIZ ATION 03/13/2025 [facility] DATE CREATED AUTHOR AUTHOR'S ORGANIZ ATION 03/16/2025 [facility] DATE CREATED AUTHOR AUTHOR'S ORGANIZ ATION 03/28/2025 [facility] DATE CREATED AUTHOR AUTHOR'S ORGANIZ ATION 04/11/2025 [facility] Source Comments (unrecognize d section and content) In the event this informatio n is protected by the Federal Confidentiality of Alcohol and Drug Abuse Patient Records regulations: The Federal rules restrict any use of the information to criminally investigate or prosecute any alcohol or drug abuse patient.[facility] the event this information is protected by the Federal Confidentiality of Alcohol and Drug Abuse Patient Records regulations: The Federal rules restrict any use of the information to criminally investigate or prosecute any alcohol or drug abuse patient.[facility] Hospital[facility] the event this information is protected by the Federal Confidentiality of Alcohol and Drug Abuse Patient Records regulations: The Federal rules restrict any use of the information to criminally investigate or prosecute any alcohol or drug abuse patient.[facility] Hospital[facility] the event this information is protected by the Federal Confidentiality of Alcohol and Drug Abuse Patient Records regulations: The Federal rules restrict any use of the information to criminally investigate or prosecute any alcohol or drug abuse patient.[facility] Hospital[facility] the event this information is protected by the Federal Confidentiality of Alcohol and Drug Abuse Patient Records regulations: The Federal rules restrict any use of the information to criminally investigate or prosecute any alcohol or drug abuse patient.[facility] HospitalIn the event this information is protected by the Federal Confidentiality of Alcohol and Drug Abuse Patient Records regulations: The Federal rules restrict any use of the information to criminally investigate or prosecute any alcohol or drug abuse patient.[facility] Care Teams (unrecognized sec tion and content) Film Flat Inspector Relationship Specialty Start Date End Date Jenny Live APRN.[employer] [address] [place] [address] PCP - General Family Practice 07/23/15 Film Flat Inspector Relationship Specialty Start Date End Date Jenny Live APRN.[employer] [address] [place] [address] PCP - General Family Practice 07/23/15 Film Flat Inspector Relationship Specialty Start Date End Date Jenny Live, OVERLOCK COLLAR SETTER.[employer]IVER [address] [place], [place] [phone] PCP - General Family Practice 07/23/15 Film Flat Inspector Relationship Specialty Start Date End Date Jenny Live, OVERLOCK COLLAR SETTER.[employer]IVER [address] [place], [place] [phone] PCP - General Family Practice 07/23/15 Team Status: Active Member Role Status Dates Jenny Live BRUSH WASHER, BRUSH WASHER-C Family Provider Active Jenny Live BRUSH WASHER, BRUSH WASHER-C Primary Care Provider Active Team Status: Inactive Member Role Status Dates Jenny Live BRUSH WASHER, BRUSH WASHER-C Primary Care Pr ovider, Attending Provider, Referring Provider Active Team Status: Inactive Member Role Status Dates Jenny Live BRUSH WASHER, BRUSH WASHER-C Primary Care Provider, Attend ing Provider Active Film Flat Inspector Relationship Specialty Start Date End Date Jenny Live, OVER[employer] COLL[employer] SETTER.[employer]IVER [address] [place], [place] [phone] PCP - General Family Medicine 07/23/15 Film Flat Inspector Relationship Specialty Start Date End Date Jenny Live [address] [place] [address] PCP - General 05/20/18 Team Status: Inactive Member Role Status Dates Jenny Live BRUSH WASHER, BRUSH WASHER-C Primary Care Provider Active Start: August 22, 2024 End: August 22, 2024 Jenny Live BRUSH WASHER, BRUSH WASHER-C Attending Provider Active Start: August 22, 2024 End: August 22, 2024 Jenny Live BRUSH WASHER, BRUSH WASHER-C Referring Provider Active Start: August 22, 2024 End: August 22, 2024 Team Status: Inactive Member Role Status Dates Jenny Live BRUSH WASHER, BRUSH WASHER-C Primary Care Provider Active Start: October 23, 2024 End: October 23, 2024 Jenny Live BRUSH WASHER, BRUSH WASHER-C Attending Provider Active Start: October 23, 2024 End: October 23, 2024 Jenny Live BRUSH WASHER, BRUSH WASHER-C Referring Provider Active Start: October 23, 2024 End: October 23, 2024 Team Status: Inactive Member Role Status Dates Jenny Live BRUSH WASHER, BRUSH WASHER-C Primary Care Provider Active Start: October 24, 2024 End: October 24, 2024 Jenny Live BRUSH WASHER, BRUSH WASHER-C Attending Provider Active Start: October 24, 2024 End: October 24, 2024 Jenny Live BRUSH WASHER, BRUSH WASHER-C Referring Provider Active Start: October 24, 2024 End: October 24, 2024 Team Status: Active Member Role/Relationship Status Dates Jenny Live BRUSH WASHER, BRUSH WASHER-C Primary care physician Active Team Status: Inactive Member Role/Relationship Status Dates Jenny Live BRUSH WASHER, BRUSH WASHER-C Primary care physician Active Start: November 27, 2024 End: November 27, 2024 Jenny Live BRUSH WASHER, BRUSH WASHER-C Attending physician Active Start: November 27, 2024 End: November 27, 2024 Jenny Live BRUSH WASHER, BRUSH WASHER-C Referring Provider Active Start: November 27, 2024 End: November 27, 2024 Team Status: Inactive Member Role/Relationship Status Dates Jenny Live BRUSH WASHER, BRUSH WASHER-C Primary care physician Active Start: March 11, 2025 End: March 11, 2025 Dr. Edmundo Wiggins MD Attending physician Active Start: March 11, 2025 End: March 11, 2025 Dr. Edmundo Wiggins MD Referring Provider Active Start: March 11, 2025 End: March 11, 2025 Team Status: Inactive Member Role/Relationship Status Dates Jenny Live BRUSH WASHER, BRUSH WASHER-C Primary care physician Active Start: March 11, 2025 End: March 11, 2025 Dr. Edmundo Wiggins MD Attending physician Active Start: March 11, 2025 End: March 11, 2025 Dr. Edmundo Wiggins MD Referring Provider Active Start: March 11, 2025 End: March 11, 2025 Team Status: Inactive Member Role/Relationship Status Dates Jenny Live BRUSH WASHER, BRUSH WASHER-C Primary care physician Active Start: March 16, 2025 End: March 17, 2025 Dr. Jame Bashir DO Admitting physician Active Start: March 16, 2025 End: March 17, 2025 Dr. Jame Bashir , DO Nurse Practitioner Active Start: March 16, 2025 End: March 17, 2025 Dr. Kindra Bach MD Nurse Practitioner Active St art: March 16, 2025 End: March 17, 2025 Dr. Lisa Gruber MD Nurse Practitioner Active S tart: March 16, 2025 End: March 17, 2025 Dr. Tray Herring MD Nurse Practitioner Active S tart: March 16, 2025 End: March 17, 2025 Dr. Mana Corcoran MD Nurse Practitioner Active Start: March 16, 2025 End: March 17, 2025 Dr. Kassidy Serrano MD Nurse Practitioner Active Start: March 16, 2025 End: March 17, 2025 Dr. Atrie Marquez MD Nurse Practitioner Active Start: March 16, 2025 End: March 17, 2025 Dr. Leonard Ford MD Nurse Practitioner Active Start: March 16, 2025 End: March 17, 2025 Dr. Juvenal Cedillo MD Nurse Practitioner Active S tart: March 16, 2025 End: March 17, 2025 Dr. Jame Zuluaga , Nurse Practitioner Active Start: March 16, 2025 End: March 17, 2025 Dr. Brooke Slater MD Nurse Practitioner Active Start: March 16, 2025 End: March 17, 2025 Dr. Bony Manuel MD Nurse Practitioner Active Start: March 16, 2025 End: March 17, 2025 Dr. Yesy Locke MD Nurse Practitioner Activ e Start: March 16, 2025 End: March 17, 2025 Dr. Anselmo Fontaine MD Nurse Practitioner Active S tart: March 16, 2025 End: March 17, 2025 Dr. Richard De La Torre MD Nurse Practitioner Active Start: March 16, 2025 End: March 17, 2025 Dr. Elbert Shaffer MD Nurse Practitioner Active Start: March 16, 2025 End: March 17, 2025 Macario Rodriguez BRUSH WASHER, BRUSH WASHER-C Nurse Practitioner Active S tart: March 16, 2025 End: March 17, 2025 Janette Washington PA, PA Nurse Practitioner Active Start: March 16, 2025 End: March 17, 2025 NICOLLE Lackey Nurse Practitioner Active St art: March 16, 2025 End: March 17, 2025 Dr. Herbert Mane , Attending physician Active Start: March 16, 2025 End: March 17, 2025 Team Status: Active Member Role/Relationship Status Selma Live BRUSH WASHER, BRUSH WASHER-C Primary care physician Active Start: March 16, 2025 Dr. Jame Bashir , DO Admitting physician Active Start: March 16, 2025 Dr. Jame Bashir , Attending physician Active Start: March 16, 2025 Dr. Jame Bashir , Nurse Practitioner Active Start: March 16, 2025 Dr. Kindra Bach MD Nurse Practitioner Active St art: March 16, 2025 Dr. Lisa Gruber MD Nurse Practitioner Active S tart: March 16, 2025 Dr. Tray Herring MD Nurse Practitioner Active S tart: March 16, 2025 Dr. Mana Corcoran MD Nurse Practitioner Active Start: March 16, 2025 Dr. Kassidy Serrano MD Nurse Practitioner Active Start: March 16, 2025 Dr. Artie Marquez MD Nurse Practitioner Active Start: March 16, 2025 Dr. Leonard Ford MD Nurse Practitioner Active Start: March 16, 2025 Dr. Juvenal Cedillo MD Nurse Practitioner Active S tart: March 16, 2025 Dr. Jame Zuluaga DO Nurse Practitioner Active Start: March 16, 2025 Dr. Brooke Slater MD Nurse Practitioner Active Start: March 16, 2025 Dr. Bony Manuel MD Nurse Practitioner Active Start: March 16, 2025 Dr. Yesy Locke MD Nurse Practitioner Activ e Start: March 16, 2025 Dr. Anselmo Fontaine MD Nurse Practitioner Active S tart: March 16, 2025 Dr. Richard De La Torre MD Nurse Practitioner Active Start: March 16, 2025 Dr. Elbert Shaffer MD Nurse Practitioner Active Start: March 16, 2025 Macario Rodriguez NP, BRUSH WASHER-C Nurse Practitioner Active S tart: March 16, 2025 Janette VALVERDE, PA Nurse Practitioner Active Start: March 16, 2025 NICOLLE Lackey Nurse Practitioner Active St art: March 16, 2025 Team Status: Active Member Role/Relationship Status Selma Live BRUSH WASHER, BRUSH WASHER-C Primary care physician Active Start: March 16, 2025 Dr. Jame Bashir , DO Admitting physician Active Start: March 16, 2025 Dr. Jame Bashir , Nurse Practitioner Active Start: March 16, 2025 Dr. Kindra Bach MD Nurse Practitioner Active St art: March 16, 2025 Dr. Lisa Gruber MD Nurse Practitioner Active S tart: March 16, 2025 Dr. Tray Herring MD Nurse Practitioner Active S tart: March 16, 2025 Dr. Mana Corcoran MD Nurse Practitioner Active Start: March 16, 2025 Dr. Kassidy Serrano MD Nurse Practitioner Active Start: March 16, 2025 Dr. Artie Marquez MD Nurse Practitioner Active Start: March 16, 2025 Dr. Leonard Ford MD Nurse Practitioner Active Start: March 16, 2025 Dr. Juvenal Cedillo MD Attending physician Active Start: March 16, 2025 Dr. Juvenal Cedillo MD Nurse Practitioner Active S tart: March 16, 2025 Dr. Jame Zuluaga , Nurse Practitioner Active Start: March 16, 2025 Dr. Brooke Slater MD Nurse Practitioner Active Start: March 16, 2025 Dr. Bony Manuel MD Nurse Practitioner Active Start: March 16, 2025 Dr. Yesy Locke MD Nurse Practitioner Activ e Start: March 16, 2025 Dr. Anselmo Fontaine MD Nurse Practitioner Active S tart: March 16, 2025 Dr. Richard De La Torre MD Nurse Practitioner Active Start: March 16, 2025 Dr. Elbert Shaffer MD Nurse Practitioner Active Start: March 16, 2025 Macario Rodriguez BRUSH WASHER, BRUSH WASHER-C Nurse Practitioner Active S tart: March 16, 2025 Janette VALVERDE, PA Nurse Practitioner Active Start: March 16, 2025 NICOLLE Lackey Nurse Practitioner Active St art: March 16, 2025 Team Status: Active Member Role/Relationship Status Dates Jenny Live BRUSH WASHER, BRUSH WASHER-C Primary care physician Active Start: March 17, 2025 Dr. Jame Bashir , DO Admitting physician Active Start: March 17, 2025 Dr. Jame Bashir , DO Nurse Practitioner Active Start: March 17, 2025 Dr. Kindra Bach MD Nurse Practitioner Active St art: March 17, 2025 Dr. Lisa Gruber MD Nurse Practitioner Active S tart: March 17, 2025 Dr. Tray Herring MD Nurse Practitioner Active S tart: March 17, 2025 Dr. Mana Corcoran MD Nurse Practitioner Active Start: March 17, 2025 Dr. Kassidy Serrano MD Nurse Practitioner Active Start: March 17, 2025 Dr. Artie Marquez MD Nurse Practitioner Active Start: March 17, 2025 Dr. Leonard Ford MD Nurse Practitioner Active Start: March 17, 2025 Dr. Juvenal Cedillo MD Attending physician Active Start: March 17, 2025 Dr. Juvenal Cedillo MD Nurse Practitioner Active S tart: March 17, 2025 Dr. Jame Zuluaga , Nurse Practitioner Active Start: March 17, 2025 Dr. Brooke Slater MD Nurse Practitioner Active Start: March 17, 2025 Dr. Bony Manuel MD Nurse Practitioner Active Start: March 17, 2025 Dr. Yesy Locke MD Nurse Practitioner Activ e Start: March 17, 2025 Dr. Anselmo Fontaine MD Nurse Practitioner Active S tart: March 17, 2025 Dr. Richard De La Torre MD Nurse Practitioner Active Start: March 17, 2025 Dr. Elbert Shaffer MD Nurse Practitioner Active Start: March 17, 2025 Macario Rodriguez BRUSH WASHER, BRUSH WASHER-C Nurse Practitioner Active S tart: March 17, 2025 Janette Washington PA, PA Nurse Practitioner Active Start: March 17, 2025 Ernst Parker , NICOLLE Nurse Practitioner Active St art: March 17, 2025 Dr. Herbert Mane , Nurse Practitioner Active Start: March 17, 2025 Team Status: Active Member Role/Relationship Status Dates Jenny Live BRUSH WASHER, BRUSH WASHER-C Primary care physician Active Start: March 17, 2025 Dr. Jame Bashir , Admitting physician Active Start: March 17, 2025 Dr. Jame Bashir , Nurse Practitioner Active Start: March 17, 2025 Dr. Kindra Bach MD Nurse Practitioner Active St art: March 17, 2025 Dr. Lisa Gruber MD Nurse Practitioner Active S tart: March 17, 2025 Dr. Tray Herring MD Nurse Practitioner Active S tart: March 17, 2025 Dr. Mana Corcoran MD Nurse Practitioner Active Start: March 17, 2025 Dr. Kassidy Serrano MD Nurse Practitioner Active Start: March 17, 2025 Dr. Artie Marquez MD Nurse Practitioner Active Start: March 17, 2025 Dr. Leonard Ford MD Nurse Practitioner Active Start: March 17, 2025 Dr. Juvenal Cedillo MD Nurse Practitioner Active S tart: March 17, 2025 Dr. Jame Zuluaga DO Nurse Practitioner Active Start: March 17, 2025 Dr. Brooke Slater MD Nurse Practitioner Active Start: March 17, 2025 Dr. Bony Manuel MD Nurse Practitioner Active Start: March 17, 2025 Dr. Yesy Locke MD Nurse Practitioner Activ e Start: March 17, 2025 Dr. Anselmo Fontaine MD Nurse Practitioner Active S tart: March 17, 2025 Dr. Richard De La Torre MD Nurse Practitioner Active Start: March 17, 2025 Dr. Elbert Shaffer MD Nurse Practitioner Active Start: March 17, 2025 Macario Rodriguez BRUSH WASHER, BRUSH WASHER-C Nurse Practitioner Active S tart: March 17, 2025 Janette Washington PA, PA Nurse Practitioner Active Start: March 17, 2025 NICOLLE Lackey Nurse Practitioner Active St art: March 17, 2025 Dr. Herbert Mane , Attending physician Active Start: March 17, 2025 Dr. Herbert Mane DO Nurse Practitioner Active Start: March 17, 2025 Team Status: Inactive Member Role/Relationship Status Dates Jenny Live NP, BRUSH WASHER-C Primary care physician Active Start: March 18, 2025 End: March 18, 2025 Jenny Live BRUSH WASHER, BRUSH WASHER-C Attending physician Active Start: March 18, 2025 End: March 18, 2025 Jenny Live BRUSH WASHER, BRUSH WASHER-C Referring Provider Active Start: March 18, 2025 End: March 18, 2025 Team Status: Inactive Member Role/Relationship Status Dates Jenny Live BRUSH WASHER, BRUSH WASHER-C Primary care physician Active Start: March 18, 2025 End: March 20, 2025 Dr. Scott Nevarez , DO Emergency Departm ent Physician Active Start: March 18, 2025 End: March 20, 2025 Dr. Nuzhat Cutler MD Admitting physician Active Start: March 18, 2025 End: March 20, 2025 Dr. Nuzhat Cutler MD Nurse Practitioner Active Start: March 18, 2025 End: March 20, 2025 Dr. Andrzej Fagan MD Nurse Practitioner Active Start: March 18, 2025 End: March 20, 2025 Dr. Isaiah Galloway DO Nurse Practitioner Active Start: March 18, 2025 End: March 20, 2025 Анна Weinstein NP-C Nurse Practitioner Active S tart: March 18, 2025 End: March 20, 2025 Carlyn Brown NP-C Nurse Practitioner Active Start: March 18, 2025 End: March 20, 2025 NICOLLE Orellana Nurse Practitioner Active Start: March 18, 2025 End: March 20, 2025 Dr. Herbert Mane DO Attending physician Active Start: March 18, 2025 End: March 20, 2025 Dr. Kendall Russ MD Nurse Practitioner Active Start: March 18, 2025 End: March 20, 2025 Team Status: Active Member Role/Relationship Status Dates Jenny Live BRUSH WASHER, BRUSH WASHER-C Primary care physician Active Start: March 19, 2025 Dr. Juvenal Cedillo MD Attending physician Active Start: March 19, 2025 Dr. Roman Pichardo MD Referring Provider Active Start: March 19, 2025 Team Status: Active Member Role/Relationship Status Dates Jenny Live BRUSH WASHER, BRUSH WASHER-C Primary care physician Active Start: March 19, 2025 Dr. Scott Nevarez , DO Emergency Departm ent Physician Active Start: March 19, 2025 Dr. Nuzhat Cutler MD Admitting physician Active Start: March 19, 2025 Dr. Nuzhat Cutler MD Nurse Practitioner Active Start: March 19, 2025 Dr. Andrzej Fagan MD Nurse Practitioner Active Start: March 19, 2025 Dr. Isaiah Galloway DO Attending physician Active Start: March 19, 2025 Dr. Isaiah Galloway DO Nurse Practitioner Active Start: March 19, 2025 ELDON DallasC Nurse Practitioner Active S tart: March 19, 2025 ADVID Payne Nurse Practitioner Active Start: March 19, 2025 NICOLLE Orellana Nurse Practitioner Active Start: March 19, 2025 Dr. Herbert Mane DO Nurse Practitioner Active Start: March 19, 2025 Dr. Kendall Russ MD Nurse Practitioner Active Start: March 19, 2025 Team Status: Active Member Role/Relationship Status Dates Jenny Live BRUSH WASHER, BRUSH WASHER-C Primary care physician Active Start: March 19, 2025 Dr. Scott Nevarez , Emergency Departm ent Physician Active Start: March 19, 2025 Dr. Nuzhat Cutler MD Admitting physician Active Start: March 19, 2025 Dr. Nuzhat Cutler MD Nurse Practitioner Active Start: March 19, 2025 Dr. Andrzej Fagan MD Nurse Practitioner Active Start: March 19, 2025 Dr. Isaiah Galloway DO Nurse Practitioner Active Start: March 19, 2025 ELDON [place]C Nurse Practitioner Active S tart: March 19, 2025 DAVID Payne Nurse Practitioner Active Start: March 19, 2025 NICOLLE Orellana Nurse Practitioner Active Start: March 19, 2025 Dr. Herbert Mane DO Attending physician Active Start: March 19, 2025 Dr. Herbert Mane DO Nurse Practitioner Active Start: March 19, 2025 Dr. Kendall Russ MD Nurse Practitioner Active Start: March 19, 2025 Team Status: Active Member Role/Relationship Status Dates Jenny Live BRUSH WASHER, BRUSH WASHER-C Primary care physician Active Start: March 20, 2025 Dr. Scott Nevarez DO Emergency Departm ent Physician Active Start: March 20, 2025 Dr. Nuzhat Cutler MD Admitting physician Active Start: March 20, 2025 Dr. Nuzhat Cutler MD Nurse Practitioner Active Start: March 20, 2025 Dr. Andrzej Fagan MD Nurse Practitioner Active Start: March 20, 2025 Dr. Isaiah Galloway , Nurse Practitioner Active Start: March 20, 2025 Анна Weinstein NP-C Nurse Practitioner Active S tart: March 20, 2025 Carlyn Brown NP-C Nurse Practitioner Active Start: March 20, 2025 NICOLLE Orellana Nurse Practitioner Active Start: March 20, 2025 Dr. Herbert Mane DO Attending physician Active Start: March 20, 2025 Dr. Herbert Mane , Nurse Practitioner Active Start: March 20, 2025 Dr. Kendall Russ MD Nurse Practitioner Active Start: March 20, 2025 Reason for Visit (unrecogniz ed section and content) Reason Comments Abscess turning green, x 2 w eeks Reason Comments Radiology CT Reason Comments Radio Gen RMP Reason Onset Date Comments Population Health Navigation Outreach 02/08/2022 [facility] Reason Onset Date Comments Dizziness 07/18/2023 Reason Onset Date Comments need to be seen for large kidney stone 5 Goals (unrecognized section and content) Goals may [...] BE BASED ON THE PRIMARY CLINICAL RECORDS. [employer] provides no warranty or guarantee of the accuracy or completeness of information in this document.
--- NOTE | 2025-04-28 18:21 | STRESSREP ---
Stress Test Report Exercise myocardial perfusion stress test. 59-year-old man with a history of A-fib. Stress protocol: Resting EKG demonstrates normal sinus rhythm with a right bundle branch block, with a rate of 66 bpm resting blood pressure is 144 /80 mmHg. The patient exercised according to the regular Max protocol for a total duration of 4 minutes attaining a maximum heart rate of 142 bpm which was 87% of maximum predicted heart rate; the maximum workload was 7 metabolic equivalents. At rest there were no ST or T wave changes noted to suggest ischemia and at peak exercise upsloping ST changes only were noted which did not meet the criteria for ischemia. No clinical angina was noted the test was terminated due to the target heart rate being achieved/fatigue. The peak blood pressure was 210/84 mmHg. Rate-pressure product was 20,005. Myocardial perfusion protocol. 14.9 mCi of technetium 99m sestamibi was injected at rest. The patient exercised according to regular Max protocol for total duration of 4 minutes and at peak exercise 46.3 mCi of technetium 99m sestamibi was injected stress images were obtained stress and rest images were reconstructed in comparing the short axis vertical long and horizontal long axis. Gated images were also obtained. Perfusion SPECT analysis: Review of the stress images demonstrate normal uptake of tracer noted in all areas of the myocardium. The resting images similarly demonstrate normal uptake of tracer noted in all areas of the myocardium. No areas of reversibility are noted to suggest ischemia no previous infarct was noted. Gated SPECT analysis: The gated ejection fraction is 77%. Conclusion: Normal exercise myocardial perfusion stress test at a moderate workload.
== END | disposition home or self-care (01) ==
LOC: CVS 06:09
PROVIDERS: PCP Nurse Practitioner; Referring Provider Physician Assistant Medical; Visit Provider Physician Assistant Medical
DX: R94.31 Abnormal electrocardiogram [ECG] [EKG] (principal); I48.0 Paroxysmal atrial fibrillation
CPT/HCPCS: 78452; 93017; A9500; A4216